=== PATIENT | male | born 1980 | race Caucasian/White ===

== ENCOUNTER → 2022-09-10 11:49 | Outpatient (CLI) | payer BC, SELFPAY ==
--- NOTE | ~2022-09-10 | XR_ITS ---
EXAMINATION: XR ankle RT min 3V, XR foot RT 2V DATE: 09/10/2022 13:45 INDICATION: Gout TECHNIQUE: 1. Anteroposterior, mortise, additional oblique and lateral view of the right ankle were obtained. 2. Dorsoplantar, two oblique and lateral views of the right foot were obtained. COMPARISON: None. FINDINGS: Alignment of the right foot and ankle is normal. No fracture or osteochondral lesion. Mild polyarticu lar osteoarthritis at the first metatarsophalangeal and a few tarsometatarsal and interphalangeal magdy nts. No erosions identified. Small plantar calcaneal spur. No ankle joint effusion. The soft tissues are unremarkable. IMPRESSION: 1. Mild polyarticular osteoarthritis in the mid and forefoot. No erosions. Reviewed, dictated and finalized at location B. IMPRESSION: 1. Mild polyarticular osteoarthritis in the mid and forefoot. No erosions.
== END ==
PROVIDERS: PCP Nurse Practitioner; Visit Provider Nurse Practitioner
DX: M10.9 Gout, unspecified (principal); M25.473 Effusion, unspecified ankle; M19.071 Primary osteoarthritis, right ankle and foot
CPT/HCPCS: 73610; 73620

== ENCOUNTER 2023-05-13 13:23 | Emergency (ER) | payer BC, SELFPAY ==
[2023-05-13 14:00] VITALS: BP 131/81; PULSE 93; RESP 18; TEMP 36.3; O2SAT 97
--- NOTE | 2023-05-13 14:06 | ED.FEVER ---
HPI - Fever General Chief Complaint: Fever Stated Complaint: fever Time Seen by Provider: 05/13/23 13:56 Source: patient and RN notes reviewed Mode of arrival: ambulatory Limitations: no limitations History of Present Illness HPI Narrative: Patient presents today complaining of fever up to 101.2, body aches, chills, and fatigue since last night. Denies any additional symptoms. He has been taking ibuprofen, which has helped bring down the fever. Patient wanted to come in for evaluation today because his 4-year-old son is in the hospital with leukemia and he wanted to get checked out before he returned to the hospital. Related Data Home Medications Medication Instructions Recorded Confirmed folic acid 1 mg tablet 1 mg PO DAILY 06/08/21 05/13/23 ergocalciferol (vitamin D2) 1,250 1,250 mcg PO MONTHLY 09/10/22 05/13/23 mcg (50,000 unit) capsule hyoscyamine sulfate 0.125 mg 0.125 mg PO DAILY 05/13/23 05/13/23 sublingual tablet vedolizumab 300 mg intravenous See Rx Instructions .Route .COMPLEX 05/13/23 05/13/23 solution (Entyvio) Allergies Allergy/AdvReac Type Severity Reaction Status Date / Time mercaptopurine Allergy Swelling Verified 05/13/23 13:48 Review of Systems Review of Systems: GENERAL: Denies decreased activity.+ fever, chills, fatigue, body aches EYES: Denies any eye discharge or redness. ENT: Denies sore throat, ear pain, congestion, or rhinorrhea. RESP: Denies any cough, wheezing, or difficulty breathing. CARDIOVASCULAR: Denies any rapid heart rate or cool extremities. ABDOMINAL: Denies any constipation, vomiting, diarrhea, or decreased food intake. : Denies any hematuria, foul smelling urine, or decreased urine frequency. SKIN: Denies any lesions, rashes, bruises. MUSCULOSKELETAL: Denies any pain or swelling. NEURO: Denies any lethargy, irritability, or seizures. PSYCH: Denies abnormal interaction with family and friends. 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 Please see nursing chart for further information. There is no relevant family history pertinent to the presenting complaint Exam Narrative: GENERAL: Well-appearing, well-nourished, and in no acute distress. HEAD: Normocephalic, atraumatic. EYES: EOMI. No redness or drainage. Conjunctivae normal. ENT: Mucous membranes pink and moist. Nares clear. No rhinorrhea. TMs normal bilaterally. Throat normal with small amount of white postnasal drainage. Uvula midline. NECK: Normal AROM. Supple. No lymphadenopathy. CHEST: No respiratory distress. Clear to auscultation. HEART: Regular rate and rhythm. No murmur appreciated. Normal peripheral pulses. EXTREMITIES: Normal range of motion. No edema. SKIN: Warm, dry, no rash. Capillary refill normal. Normal skin turgor. NEURO: No focal deficits. Alert and oriented x3. Gait steady. PSYCH: Normal affect. No signs of depression or anxiety. Course Course Level of Care: Express Care Visit Vital Signs Vital signs: Vital Signs Temperature 97.3 F L 05/13/23 14:00 Pulse Rate 93 05/13/23 14:00 Respiratory Rate 18 05/13/23 14:00 Blood Pressure 131/81 05/13/23 14:00 Pulse Oximetry 97 05/13/23 14:00 Oxygen Delivery Room Air
== END 2023-05-13 14:31 | disposition home or self-care (01) ==
PROVIDERS: Emergency Provider Nurse Practitioner; PCP Nurse Practitioner
DX: J02.0 Streptococcal pharyngitis (principal); Z20.822 Contact with and (suspected) exposure to COVID-19; K50.90 Crohn's disease, unspecified, without complications
CPT/HCPCS: 87426; 87804; 87880; 99213; C9803; G0463

== ENCOUNTER 2024-11-04 15:56 | Emergency (ER) | payer BC, SELFPAY ==
[2024-11-04 16:24] VITALS: BP 169/109; BP 172/102; PULSE 81; RESP 16; TEMP 37.1; O2SAT 98
--- NOTE | 2024-11-04 16:55 | ED.EAR ---
HPI - Ear Problem General Chief complaint: Ear Stated complaint: Head Cold/ Ear Pain Source: patient Mode of arrival: ambulatory Limitations: no limitations History of Present Illness HPI Narrative: 43-year-old male presented for complaint of left ear pain worsening throughout the day. Also reports 1 week of nasal congestion and drainage. Denies tinnitus, dizziness, ear drainage, nausea, vomiting, diarrhea or lethargy. Since onset he has taken an occasional Sudafed, and took a left over vicodin. MD Complaint: ear pain Related Data Home Medications ?Medication ?Instructions ?Recorded ?Confirmed ?Last Taken ?Type ergocalciferol (vitamin D2) 1,250 1,250 mcg PO MONTHLY 09/10/22 08/29/24 Unknown History mcg (50,000 unit) capsule hyoscyamine sulfate 0.125 mg 0.125 mg PO DAILY 05/13/23 08/29/24 Unknown History sublingual tablet vedolizumab 300 mg intravenous See Rx Instructions .Route .COMPLEX 05/13/23 08/29/24 Unknown History solution (Entyvio) doxycycline hyclate 20 mg tablet 20 mg PO Q12H PRN 08/29/24 08/29/24 Unknown History upadacitinib 30 mg tablet,extended 30 mg PO DAILY 08/29/24 08/29/24 Unknown History release 24 hr (Rinvoq) Allergies Allergy/AdvReac Type Severity Reaction Status Date / Time mercaptopurine Allergy Intermediate Swelling Verified 11/04/24 16:29 Review of Systems Review of Systems: CONSTITUTIONAL: Denies malaise, chills, or fever. EYES: Denies visual changes, redness, or discharge. ENT: Denies sore throat. Reports ear pain rhinorrhea, congestion, sinus pain CARDIOVASCULAR: Denies chest pain, palpitations, or edema. RESPIRATORY: Denies cough or dyspnea. GASTROINTESTINAL: Denies abdominal pain, nausea, vomiting, diarrhea NEUROLOGIC: Denies headache. 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 There is no relevant family history pertinent to the presenting complaint Exam Narrative: GENERAL: Appears in pain, in no acute distress. EYES: PERRLA, conjunctivae clear ENT: Nares clear. Mucous membranes moist. Right TM pearly huber with dull light reflex; left TM erythematous, bulging and intact with purulent effusion; canal not erythematous, no drainage no tragal tenderness. no drooling, no hoarseness, no trismus, uvula midline. CHEST: Clear to auscultation, breath sounds equal. HEART: Regular rate and rhythm. No murmur heard. SKIN: Warm, dry, no rash. NEURO: Alert and oriented x3. PSYCH: Normal mood and affect Course Course Emergency Course: Patient is aware of diagnosis, understands and agrees to treatment plan. Anticipatory guidance given. Patient agrees to follow-up as directed and is aware of reasons to seek care at the emergency department. Portions of this record may have been created with voice recognition software Level of Care: Express Care Visit Vital Signs Vital signs: Vital Signs Temperature 98.8 F 11/04/24 16:24 Pulse Rate 81 11/04/24 16:24 Respiratory Rate 16 11/04/24 16:24 Blood Pressure 172/102 H 11/04/24 16:24 Pulse Oximetry 98 11/04/24 16:24 Temperature 98.8 F 11/04/24 16:24 Pulse Rate 81 11/04/24 16:24 Respiratory Rate 16 11/04/24 16:24 Blood Pressure 169/109 H 11/04/24 16:24 Pulse Oximetry 98 11/04/24 16:24 Reviewed Medical Decision Making MDM Narrative Medical decision making narrative: Discussed physical exam findings consistent with left AOM. Advised supportive measures and signs/symptoms to go to the ER. Patient is appropriate for outpatient treatment and follow-up. Differential Diagnosis Differential Diagnosis: Coronavirus, strep pharyngitis, allergic rhinitis, upper respiratory tract infection, sinusitis, rhinosinusitis, nasopharyngitis, viral pharyngitis, otitis media, otitis externa, eustachian tube dysfunction, foreign body, cerumen impaction. Vital Signs Vital Signs: Vital Signs Temperature 98.8 F 11/04/24 16:24 Pulse Rate 81 11/04/24 16:24 Respiratory Rate 16 11/04/24 16:24 Blood Pressure 172/102 H 11/04/24 16:24 Pulse Oximetry 98 11/04/24 16:24 Temperature 98.8 F 11/04/24 16:24 Pulse Rate 81 11/04/24 16:24 Respiratory Rate 16 11/04/24 16:24 Blood Pressure 169/109 H 11/04/24 16:24 Pulse Oximetry 98 11/04/24 16:24 Discharge Plan Discharge Clinical Impression: Otitis media Patient Disposition: Home, Self-Care Condition: Stable Instructions: Antibiotic Form, Ear Infection (ED) Additional Instructions: Your blood pressure reading was elevated (above 120/80) please follow-up with your primary care provider for further evaluation and management. If you develop worsening Blood Pressure symptoms, (headache, vision changes, dizziness, vomiting, chest pain, etc) go to the ER. Call 911. Your Take antibiotics as directed. Recommenations: antihistamine such as Benadryl, Zyrtec or Maggy for sinus congestion (avoid decongestants that may raise blood pressure) Flonase nasal spray, 1 spray in each nostril once daily until symptoms improve Symptomatic treatment includes: rest, fluids, and increase humidity of the air at home. Tylenol 1000mg every 8 hours as needed to reduce fever, pain Please schedule a follow-up visit with your personal physician If your symptoms persist, change or worsen significantly, go to the emergency department for further evaluation. Patient Language: Indian Prescriptions: New ibuprofen 800 mg tablet 800 mg PO TID PRN (Reason: pain) Qty: 15 0RF amoxicillin-pot clavulanate 875-125 mg tablet 1 tablet PO Q12H 7 Days Qty: 14 0RF No Action hyoscyamine sulfate 0.125 mg tablet, sublingual 0.125 mg PO DAILY Entyvio 300 mg Recon Soln See Rx Instructions .ROUTE .COMPLEX Rx Instructions: 300 mg intravenously Rinvoq 30 mg tablet extended release 24 hr 30 mg PO DAILY doxycycline hyclate 20 mg tablet 20 mg PO Q12H PRN alprazolam [Xanax] 0.5 mg tablet 0.5 mg PO DAILY PRN (Reason: anxiety) Qty: 30 2RF sertraline 25 mg tablet 25 mg PO DAILY Qty: 90 0RF ergocalciferol (vitamin D2) 1,250 mcg (50,000 unit) capsule 1,250 mcg PO MONTHLY Wegovy 1 mg/0.5 mL pen injector 1 mg subcut Q7D Qty: 2 0RF Follow-up/Referrals: Emmanuel Wesley DO [Primary Care Provider] - Time of Disposition: 17:01
--- OUTSIDE RECORDS SUMMARY | 2024-11-11 19:09 | XMS_ITS | Encounter Summary ---
Author Organization [facility] Healthcare Address [address] [place] [address] Care Team Providers Care Physician Office Clin Asst Name Role Phone Emmanuel Wesley DO Primary Care Provider [phone] Reason for Visit * Auth/Cert (Routine) Specialty Diagnoses / Procedures Referred By Med bazan Referred To Contact Diagnoses Crohn's disease of both small and large intestine with intestinal obstruction (HCC) Crohn's disease of both small and large intestine with intestinal obstruction (HCC) [K50.812] Procedures SD COLONOSCOPY FLX DX W/COLLJ SPEC WHEN PFRMD SD COLONOSCOPY W/BIOPSY SINGLE/MULTIPLE SD COLSC FLX W/RMVL OF TUMOR POLYP LESION SNARE TQ COLONOSCOPY Referral ID Status Reason Start Date Expiration Date Visits Re quested Visits Authorized [id number] 1 1 Encounter Details Date Type Department Care Team (Late st Contact Info) Description 10/23/2024 8:34 AM ROOF TECHNICIAN Anesthesia Event [facility] Endoscopy [id number] [place] [address] Jonathan Ramires MD [address] [facility] [address] [place] [address] Anesthesia Record Procedure Summary Procedure Name Responsible Anesthesiologist Anesthesia Start Time Anesthesia Stop Time COLON STOMA WITH BALLOON DILATION Jonathan Ramires MD 10/23/24 0834 10/23/24 0914 Events Date Time Event Comment 10/23/2024 0825 0834 In Room 0834 AN Equip Check 0834 An Start 0834 An Start Data 0837 Start Supplemental O2 0839 An Induction The patient was reevaluated immediately before moderate or deep sedation use and before anesthesia induction. 0839 Anesthesia Ready 0843 Proc Start 0906 Proc Fin 0908 an stop data 0909 Out of Room 0914 Handoff to RN I completed my handoff to the receiving nurse during which we: 1. Patient identified 2. Responsible provider identified 3. Pertinent medical history reviewed 4. Procedure type and surgical course discussed 5. Intraoperative anesthetic management and any significant issues discussed 6. Expectations and concerns for postop period discussed 7. Questions solicited from receiving nurse 8. Patient disposition at the time of handoff: PACU 913 An Stop Meds Name Total propofol 565.49 mg Lidocaine IV 2 % 5 mL sodium chloride 0.9% infusion 700 mL * Agents Name O2% N2O O2 N2O Air * Blood No blood administrations on file. Lines, Drains, and Airways Type Details Placement Removal Peripheral IV Placement Date: 09/08 12/31; Catheter Size: 22 G; Orientation: Right; Location: Antecubital; Insertion Attempts: 1; Patient Tolerance: Tolerated well 09/28/24 0000 by Jaida Clemente RT Peripheral IV Placement Date: 10/07 05/30; Placement Time: 829; Orientation: Anterior, Right; Location: Hand; Removal Date: 10/23/24; Removal Time: 92210/23/24 0830 by Julieta Clifford RN 10/23/24 0923 by Dawna Chacon RN documented in this encounter Social History Tobacco Use Types Packs/Day Years Used Date Smoking Tobacco: Former Cigarettes Q uit: 2004 Smokeless Tobacco: Never Alcohol Use Standard Drinks/Week Comments Yes 0 (1 standard drink = 0.6 oz pur e alcohol) occasional OASIS D0700: Social Isolation Answer Da te Recorded Frequency of experiencing loneliness or isolatio n Never 05/16/2024 AUDIT-C Answer Date Recorded Q1: How often do you have a drink containing alc ohol? 2-3 times a week 10/23/2024 Q2: How many drinks containi ng alcohol do you have on a typical day when you are drinking? 3 or 4 10/23/2024 Q3: How often do you have si x or more drinks on one occasion? Less than monthly 10/23/2024 Personal Safety Answer Date Recorded Have you ever been in or are you currently in a harmful physical or emotional relationship or is someone making you feel afraid or unsafe? 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 ENDOSCOPY ROOM 04 / [facility] ENDOSCOPY Anesthesia Start: 833 Anesthesia Stop: 913 Procedures: COLON STOMA WITH BALLOON DILATION OSTOMY BIOPSY Diagnosis: Crohn's disease of both small and large intestine with intestinal obstruction (HCC) (Crohn's disease of both small and large intestine with intestinal obstruction (HCC) [K50.812]) Providers: Tahir Cardoso MD Responsible Provider: Jonathan Ramires MD Anesthesia Type: general ASA Status: 2 Anesthesia Type: general Last vitals BP 126/69 Pulse 61 Temp 36.2 ??C (97.2 ??F) (Temporal) Resp 16 SpO2 97% Anesthesia Post Evaluation Patient location during evaluation: PACU Patient participation: complete - patient participated Level of consciousness: fully awake Pain score: 0 Pain management: adequate Airway patency: adequate Evidence of recall: no Cardiovascular status: hemodynamically stable and acceptable Respiratory status: acceptable and room air Hydration status: acceptable Pt is: normothermic Nausea/Vomiting status: none No notable events documented. TECHNICIAN * Anesthesia Preprocedure Evaluation - Jonathan Ramires MD - 10/23/2024 8:26 AM CST Images from the original note were not included. Anesthesia Evaluation Ranjit Peralta is a 43 y.o. male COLONOSCOPY Pre-Op Diagnosis Codes: * Crohn's disease of both small and large intestine with intestinal obstruction (HCC) [K50.812] Patient Active Problem List Diagnosis Date Noted Colostomy present (CMS/HCC) (HCC) 08/14/2024 Abdominal cramping 08/14/2024 Healthcare maintenance 12/27/2023 Encounter for examination of potential donor of organ and tissue 05/09/2023 High risk medications (not anticoagulants) long-term use 10/10/2018 Stricture intestinal (CMS/HCC) (HCC) 10/10/2018 Need for 23-polyvalent pneumococcal polysaccharide vaccine 10/10/2018 Crohn's disease with complication ([facility]) 05/19/2018 Crohn's disease of both small and large intestine ([facility]) 04/06/2013 Past Medical History: Diagnosis Date Anxiety Crohn's disease (CMS/HCC) ([facility]) dx 2006 Past Surgical History: Procedure Laterality Date ABCESS DRAINAGE 04/06/201301/17 ANAL FISTULOTOMY 08/22/2013 BOWEL RESECTION 2022 ileocolic with diverting colostomy COLONOSCOPY Allergies Allergen Reactions Mercaptopurine Analogues (Thiopurines) Joint pain Severe gout like joint pain that starts within days of taking medicine Med List Status: Provider Complete Set By: Julieta Clifford RN at 10/23/2024 8:16 AM Taking? Last Dose Start Date End Date Provider ALPRAZolam (XANAX) 0.5 mg tablet 10/22/2024 08/29/24 -- Melissa Gallardo MD dicyclomine (BENTYL) 20 mg tablet Past Month 06/14/23 -- Paulina Jones MD Take 1 tablet (20 mg total) by mouth 4 (four) times a day as needed (cramping) ergocalciferol (VITAMIN D) 50,000 unit capsule Past Month 01/06/24 -- Parker De La Cruz MD Take 1 capsule (50,000 Units total) by mouth every 30 (thirty) days hyoscyamine (LEVSIN) 0.125 mg SL tablet Past Week 08/13/24 08/13/25 Parker De La Cruz MD Take 1 tablet (0.125 mg total) by mouth every 6 (six) hours as needed for cramping or diarrhea Dissolve tab under the tongue sertraline (ZOLOFT) 25 mg tablet More than a month 08/29/24 -- Melissa Gallardo MD sodium chloride 0.9 %, flush, (SALINE FLUSH INJ) Unknown -- -- Melissa Gallardo MD sodium, potassium & mag sulfates (SUPREP BOWEL KIT) 17.5-3.13-1.6 gram recon soln 10/23/2024 10/22/24 -- Tahir Cardoso MD Take first bottle at 6 PM, take the second bottle 6 hours prior to arrival upadacitinib (Rinvoq) 30 mg tablet extended release 24 hr 10/22/2024 10/16/24 -- Parker De La Cruz MD Take 30 mg by mouth daily Notes: Pt has been approved for bridge assistance per Rinvoq Complete. Please arrange next drug shipment. Thanks! vedolizumab (ENTYVIO) 300 mg recon soln Past Month 10/03/24 -- Parker De La Cruz MD Infuse 5 mL (300 mg total) into a venous catheter every 4 (four) weeks Infused by: [facility] Home Care ([facility] order in Epic under 'Procedures' tab). vitamin E 400 unit capsule Past Week -- -- ProviderMelissa MD Wegovraymond 0.5 mg/0.5 mL auto-injector Past Week 09/17/24 -- ProviderMelissa MD Ongoing Comment Franklin Cruz RN 07/26/2024 1:37 PM 07/26/2024 Severe interaction noted between Entyvio and Rinvoq. Per email message from Christina Reid RN for Dr. Jono MD aware. Patient may continue both medications as directed. ERIC FLORES Current Facility-Administered Medications: famotidine (PEPCID) injection 20 mg, 20 mg, intravenous, Once ondansetron (ZOFRAN) injection 4 mg, 4 mg, intravenous, Q6H PRN ondansetron (ZOFRAN) injection 4 mg, 4 mg, intravenous, Once sodium chloride 0.9% flush 0.5-20 mL, 0.5-20 mL, intra-catheter, PRN sodium chloride 0.9% infusion, 30 mL/hr, intravenous, Continuous Social History Tobacco Use Smoking Status Former Current packs/day: 0.00 Types: Cigarettes Quit date: 2004 Years since quittin.9 Smokeless Tobacco Never Alcohol Use: Alcohol Misuse (10/23/2024) AUDIT-C Frequency of Alcohol Consumption: 2-3 times a week Average Number of Drinks: 3 or 4 Frequency of Binge Drinking: Less than monthly Substance and Sexual Activity Drug Use No Family History Problem Relation Age of Onset Cancer Maternal Grandmother Diabetes Maternal Grandfather Family history of diabetes mellitus - (Added by TW Conv)/Family history of diabetes mellitus - (Added by TW Conv) Colon cancer Neg Hx Crohn's disease Neg Hx Ulcerative colitis Neg Hx Vitals: 10/23/24 0758 10/23/24 0820 BP: 142/96 Pulse: 65 Resp: 28 Temp: 36.2 ??C (97.2 ??F) SpO2: 95% PT: No results found for requested labs within last 30 days. INR: No results found for requested labs within last 30 days. APTT: No results found for requested labs within last 30 days. Hgb A1C: No results found for requested labs within last 30 days. CBC RBC: 09/24/2024: 4.17 M/cumm (L) RDW: No results found for requested labs within last 30 days. MCHC: 09/24/2024: 34.3 g/dL MCH: 09/24/2024: 32.4 pg MCV: 09/24/2024: 94.5 fL Hct: 09/24/2024: 39.4 % Hgb: 09/24/2024: 13.5 g/dL WBC: 09/24/2024: 5.0 K/cumm MPV: 09/24/2024: 10.0 fL Platelets: 09/24/2024: 244 K/cumm RDW CV: 09/24/2024: 13.2 % RDW Sd: 09/24/2024: 46.0 fL BMP Glucose: 09/24/2024: 91 mg/dL Calcium: 09/24/2024: 9.5 mg/dL Sodium: 09/24/2024: 139 mmol/L Potassium: 09/24/2024: 3.8 mmol/L CO2: 09/24/2024: 20 mmol/L (L) Chloride: 09/24/2024: 105 mmol/L BUN: 09/24/2024: 13 mg/dL Creatinine: 09/24/2024: 1.11 mg/dL DOS Physical Exam Medical history, medications, and allergies reviewed. Attestation: This PAT evaluation Airway Exam: Mallampati: III Cervical ROM: FROM Cardiovascular Exam: Rate: regular Rhythm: regular Pulmonary Exam: LCTA, bilat Anesthesia Plan ASA 2 My patient is approved for the Anesthesia Controlled Medication protocol when under care of a GOVERNMENT AFFAIRS MANAGER Planned anesthesia: General Informed Consent: Anesthesia plan and risks discussed with patient. Plan and Consent Comments: Hx awareness Consent and Attending signature: I and/or my designee have discussed the anesthesia plan, benefits, possible alternatives, parental presence at time of induction (if indicated), and clinically relevant risks that may include dental injury, unintentional awareness, and/or other complications. The patient and/or parent/legal guardian understand, and agree to proceed. All questions answered. TECHNICIAN documented in this encounter Plan of Treatment Upcoming Encounters Date Type Department Care Team (Late st Contact Info) Description 11/09/2024 Plan of Care Documentation [address] [address] [address] [place] [address] documented as of this encounter Visit Diagnoses Not on filedocumented in this encounter Administered Medications Inactive Administered Medications - up to 3 most recent administrations Medication Order MAR Action Action Date Dose Rate Site lidocaine (XYLOCAINE) 20 mg/mL (2 %) injection intravenous, As needed, Starting on Tue10/23/24 at 0839, Anesthesia Intra-op, Indications: Administration of Local AnesthesiaIndications:Adm inistration of Local Anesthesia Given 10/23/2024 8:39 AM ROOF TECHNICIAN 5 mL propofoL (DIPRIVAN) 10 mg/mL IV intravenous, As needed, Starting on Tue10/23/24 at 0839, Anesthesia Intra-op New Bag 10/23/2024 8:45 AM ROOF TECHNICIAN 155 mcg/kg/min 109.647 mL/hr Given 10/23/2024 8:44 AM ROOF TECHNICIAN 50 mg Given 10/23/2024 8:41 AM ROOF TECHNICIAN 50 mg sodium chloride 0.9% infusion 30 mL/hr, intravenous, Continuous, Starting on Tue10/23/24 at 0845, Pre-Procedure (GI) Restarted 10/23/2024 8:49 AM ROOF TECHNICIAN Rate/Dose Verify 10/23/2024 8:34 AM ROOF TECHNICIAN 30 mL/h r New Bag 10/23/2024 8:31 AM ROOF TECHNICIAN 30 mL/hr 30 mL/hr documented in this encounter Care Teams Physician Office Clin Asst Relationship Specialty Start Date End Date Emmanuel Wesley DO PCP - General Internal Medicine 12/11/21 documented as of this encounter
--- OUTSIDE RECORDS SUMMARY | 2024-11-11 19:09 | XMS_ITS | Encounter Summary ---
Author Organization [facility] Address [address] [place] [address] Care Team Providers Care Fire Claims Adjuster Name Role Phone Emmanuel Wesley DO Primary Care Provider [phone] Reason for Visit * Auth/Cert (Routine) Specialty Diagnoses / Procedures Referred By Med bazan Referred To Contact Diagnoses Crohn's disease of both small and large intestine with intestinal obstruction (HCC) Crohn's disease of both small and large intestine with intestinal obstruction (HCC) [K50.812] Procedures NC COLONOSCOPY FLX DX W/COLLJ SPEC WHEN PFRMD NC COLONOSCOPY W/BIOPSY SINGLE/MULTIPLE NC COLSC FLX W/RMVL OF TUMOR POLYP LESION SNARE TQ COLONOSCOPY Referral ID Status Reason Start Date Expiration Date Visits Re quested Visits Authorized [id number] 1 1 Encounter Details Date Type Department Care Team (Latest Contact Info) Description 10/23/2024 7:51 AM RECREATION CLERK - 10/23/2024 10:18 AM [facility] [[email or web address] Hospital Encounter [facility] Endoscopy [id number] [place] [address] Tahir Cardoso MD [address] [place] [address] Crohn's disease of both small and large intestine with intestinal obstruction (HCC) Discharge Disposition: Discharge to home or self care Social History Tobacco Use Types Packs/Day Years Used Date Smoking Tobacco: Former Cigarettes Q uit: 2005 Smokeless Tobacco: Never Alcohol Use Standard Drinks/Week [...] on file 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:34 AM RECREATION CLERK Gender Identity Not on file Sexual Orientation Not on file documented as of this encounter Last Filed Vital Signs Vital Sign Reading Time Taken Comments Blood Pressure 126/69 10/23/2024 9:25 AM RECREATION CLERK Pulse 61 10/23/2024 9:28 AM RECREATION CLERK Temperature 36.2 ??C (97.2 ??F) 10/23/2024 9:10 AM CS T Respiratory Rate 16 10/23/2024 9:28 AM RECREATION CLERK Oxygen Saturation 97% 10/23/2024 9:28 AM RECREATION CLERK Inhaled Oxygen Concentration - - Weight - - Height - - Body Mass Index - - documented in this encounter Discharge Instructions * Discharge Instructions* Dawna Chacon RN - 10/23/2024 9:28 AM RECREATION CLERK SCOPE DISCHARGE INSTRUCTIONS You have had a Colonoscopy (Colon) procedure. Sedation: You were given medication for sedation. You may feel drowsy or tired for a few hours. We recommend you not be alone today. Please do not participate in activities that require good coordination or concentration such as driving a car or operating machinery for the next 24 hours. Protect yourself against falls, especially on the stairs or when walking long distances. Delay making businessdecisions that require the signing of legal documents for a minimum of 24 hours. No alcoholic beverages for 24 hours. Diet: Type of diet ordered {GI diet instructions:14530799}. IV: If the IV site swells or bleeds, please apply direct pressure for 5 minutes. If the site becomes red, you may apply warm, moist compresses to the site. Please see a healthcare professional if youhave concerns about your IV site. Abdomen: Following the procedure called colonoscopy, you may be aware of a bloated appearance andfeeling of your abdomen. You may also experience some cramping or gas pains . The distention and discomfort should subside as you pass the air. If you are unable to pass the air, please contact your physician. Pain/Bleeding: You have had {POST BIOPSY/DILITATION:06865827} performed during the procedure. You may expect a little bleeding from the site. Within the next 48 hours, if the bleeding becomes excessive or is accompanied by abdominal or chest pain, please call your physician immediately. If you are on aspirin or NSAIDS (non-steroidal anti-inflammatory drugs) then you can resume in {Endo ASA/NSAIDS:21538345}. If no follow-up appointment is required, you may receive a letter or phone call from the physician regarding your test/biopsy results within the next two weeks. A note will also be sent to your referring physician. If you have any questions, call your physician's office. EATION CLERK documented in this encounter Medications at Time of Discharge ALPRAZolam (XANAX) 0.5 mg tablet Take 1 tablet (0.5 mg total) by mouth daily as needed 08/29/2024 dicyclomine (BENTYL) 20 mg tablet Take 1 tablet (20 mg total) by mouth 4 (four) times a day as needed (cramping) 120 tablet 3 06/14/2023 ergocalciferol (VITAMIN D) 50,000 unit capsuleIndications :Low vitamin D level Take 1 capsule (50,000 Units total) by mouth every 30 (thirty) days 3 capsule 3 01/06/2024 hyoscyamine (LEVSIN) 0.125 mg SL tablet Take 1 tablet (0.125 mg total) by mouth every 6 (six) hours as needed for cramping or diarrhea Dissolve tab under the tongue 100 tablet 5 08/13/2024 sertraline (ZOLOFT) 25 mg tablet Take 1 tablet (25 mg total) by mouth daily 08/29/2024 sodium chloride 0.9 %, flush, (SALINE FLUSH INJ)Indications:li ne patency Infuse 10 mL into a venous catheter as needed (line patency) sodium, potassium & mag sulfates (SUPREP BOWEL KIT) 17.5-3.13-1.6 gram recon soln Take first bottle at 6 PM, take the second bottle 6 hours prior to arrival 354 mL 10/22/2024 upadacitinib (Rinvoq) 30 mg tablet extended release 24 hrIndications:Croh n's disease of small and large intestines with complication (HCC) Take 30 mg by mouth daily 90 tablet 10/16/2024 vedolizumab (ENTYVIO) 300 mg recon solnIndications:Cr ohn's disease of both small and large intestine without complication (CMS/HCC) (HCC) Infuse 5 mL (300 mg total) into a venous catheter every 4 (four) weeks Infused by: [facility] Home Care ([facility] order in [facility] under 'Procedures' tab). 10/03/2024 vitamin E 400 unit capsule Take 1 capsule (400 Units total) by mouth Wegovy 0.5 mg/0.5 mL auto-injector 09/17/2024 documented as of this encounter Discharge Disposition Disposition Code Departure Means Destination Comment s Discharge to home or self care documented in this encounter H&P Notes * Tahir Cardoso MD - 10/23/2024 8:05 AM CST Pre Endoscopy History and Physical Dante Peralta is a 43 y.o. male who is here for Procedure(s): COLONOSCOPY The indication(s) for the procedure(s): Dilation of ileal strictures. History of lap ICR and diverting colostomy in Dec 2022 with fibrostenotic Crohn's disease, status post prior colonoscopy with dilation. He now returns for another examination to assess response to medical therapy. Past Medical History: Diagnosis Date Anxiety Crohn's disease (CMS/HCC) (HCC) dx 2006 Past Surgical History: Procedure Laterality Date ABCESS DRAINAGE 04/06/201301/17 ANAL FISTULOTOMY 08/22/2013 BOWEL RESECTION 2022 ileocolic with diverting colostomy COLONOSCOPY Social History Tobacco Use Smoking status: Former Current packs/day: 0.00 Types: Cigarettes Quit date: 2004 Years since quittin.9 Smokeless tobacco: Never Substance and Sexual Activity Drug use: No Sexual activity: Defer Alcohol Use: Alcohol Misuse (10/19/2024) AUDIT-C Frequency of Alcohol Consumption: 2-3 times a week Average Number of Drinks: 3 or 4 Frequency of Binge Drinking: Less than monthly Family History Problem Relation Age of Onset Cancer Maternal Grandmother Diabetes Maternal Grandfather Family history of diabetes mellitus - (Added by TW Conv)/Family history of diabetes mellitus - (Added by TW Conv) Colon cancer Neg Hx Crohn's disease Neg Hx Ulcerative colitis Neg Hx Allergies Allergen Reactions Mercaptopurine Analogues (Thiopurines) Joint pain Severe gout like joint pain that starts within days of taking medicine Prior to Admission medications Medication Sig Start Date End Date Taking? Authorizing Provider ALPRAZolam (XANAX) 0.5 mg tablet Take 1 tablet (0.5 mg total) by mouth daily as needed 08/29/24 YesMelissa Gallardo MD sertraline (ZOLOFT) 25 mg tablet Take 1 tablet (25 mg total) by mouth daily 08/29/24 Yes Melissa Gallardo MD Wegovy 0.5 mg/0.5 mL auto-injector 09/17/24 Yes Melissa Gallardo MD dicyclomine (BENTYL) 20 mg tablet Take 1 tablet (20 mg total) by mouth 4 (four) times a day as needed (cramping) 06/14/23 Paulina Jones MD ergocalciferol (VITAMIN D) 50,000 unit capsule Take 1 capsule (50,000 Units total) by mouth every 30 (thirty) days 01/06/24 Parker De La Cruz MD hyoscyamine (LEVSIN) 0.125 mg SL tablet Take 1 tablet (0.125 mg total) by mouth every 6 (six) hoursas needed for cramping or diarrhea Dissolve tab under the tongue 08/13/24 08/13/25 Parker De La Cruz MD sodium chloride 0.9 %, flush, (SALINE FLUSH INJ) Infuse 10 mL into a venous catheter as needed (line patency) Melissa Gallardo MD sodium, potassium & mag sulfates (SUPREP BOWEL KIT) 17.5-3.13-1.6 gram recon soln Take first bottle at 6 PM, take the second bottle 6 hours prior to arrival 10/22/24 Tahir Cardoso MD upadacitinib (Rinvoq) 30 mg tablet extended release 24 hr Take 30 mg by mouth daily 10/16/24 Parker De La Cruz MD vedolizumab (ENTYVIO) 300 mg recon soln Infuse 5 mL (300 mg total) into a venous catheter every 4 (four) weeks Infused by: [facility] Home Care ([facility] order in [facility] under 'Procedures' tab). 10/03/24 Parker De La Cruz MD vitamin E 400 unit capsule Take 1 capsule (400 Units total) by mouth ProviderMelissa MD mesalamine (CANASA) 1,000 mg suppository UNWRAP AND INSERT ONE SUPPOSITORY RECTALLY EVERY NIGHT AT BEDTIME DIRECTED 09/21/22 03/03/23 Provider, MD Melissa Review of Systems A pertinent, focused review of systems was completed and negative, except as noted above. OBJECTIVE: Vitals: Vitals: 10/23/24 0758 Temp: 36.2 ??C (97.2 ??F) TempSrc: Tympanic Physical Exam: Airway: No significant abnormality. Cardiac: No significant abnormality. Pulmonary: No significant abnormality. Neurological: No significant abnormality. Gastrointestinal: No significant abnormality. ASA Score: per Anesthesia Sedation/Anesthesia Plan: per Anesthesia The risks and complications of the procedure have been explained to the patient. Informed consent was signed. Impression and plan: Will proceed with the planned procedure for the reasons stated above. EATION CLERK documented in this encounter Procedure Notes * Tahir Cardoso MD - 10/23/2024 8:29 AM CSTAssociated Order(s): COLONOSCOPY ENDOSCOPY LAB Patient Name: Dante Peralta Procedure Date: 10/23/2024 8:29 AM Date of : 1980 Admit Type: Outpatient Age: 43 Gender: Male Attending MD: Tahir Collins M.D. Room: [facility] ENDOSCOPY ROOM 04 Note Status: Finalized Procedure: Colonoscopy of Post-surgical Anatomy Indications: Balloon dilation of stenotic lesion of the terminal ileum. History of laparoscopic ileocecectomy and diverting colostomy in Dec 2022 with fibrostenotic Crohn's disease, status post prior colonoscopy with dilation. He now returns for another examination to assess response to medical therapy. Providers: Tahir Collins M.D. Referring MD: Parker De La Cruz M.D. Medicines: Monitored Anesthesia Care Complications: No immediate complications. Estimated Blood Loss: Estimated blood loss was minimal. Procedure: Pre-Anesthesia Assessment: - The risks and benefits of the procedure and the sedation options and risks were discussed with the patient. All questions were answered and informed consent was obtained. - Immediately prior to administration of medications, the patient was re-assessed for adequacy to receive sedatives. After obtaining informed consent, the endoscope was passed under direct vision. Throughout the procedure, the patient's blood pressure, pulse, and oxygen saturations were monitored continuously. The scope was passed under direct vision. The [id number] was introduced through the sigmoid colostomy and advanced to the terminal ileum. The colonoscopy was performed without difficulty. The patient tolerated the procedure well. The quality of the bowel preparation was adequate. The bowel preparation used was polyethylene glycol (PEG) via split dose instruction. The quality of the bowel preparation was evaluated using the BBPS ([place] Bowel Preparation Scale) with scores of: Right Colon = 3 (entire mucosa seen well with no residual staining, small fragments of stool or opaque liquid), Transverse Colon = 3 (entire mucosa seen well with no residual staining, small fragments of stool or opaque liquid) and Left Colon = 3 (entire mucosa seen well with no residual staining, small fragments of stool or opaque liquid). The total BBPS score equals 9. Findings: There was evidence of a prior qsil-el-wjyk ileo-colonic anastomosis in the ascending colon. This was patent and was characterized by healthy appearing mucosa. The anastomosis was traversed. The distal ileum contained four benign-appearing, intrinsic and ulcerated moderate stenosis measuring less than one cm (in length) x 1.1 cm (inner diameter). A TTS dilator was passed through the scope. Dilation with a 12-13.5-15 mm anastomotic balloon dilator was performed to 15 mm at all sites. The strictures were traversed with the PCF colonoscope. Biopsies were taken with a cold forceps for histology from the strictures. The remainder of the exam in the terminal ileum was normal consistent with skip areas. This was biopsied for background histology. The colon (entire examined portion) appeared normal. Biopsies were taken with a cold forceps for histology from the right and left colon. Patient is status-post diverting bowel surgery with an end-sigmoid colostomy. The Simple Endoscopic Score for Crohn's Disease was determined based on the endoscopic appearance of the mucosa in the following segments: - Ileum: Findings include aphthous ulcers less than 0.5 cm in size, 10-30% ulcerated surfaces, less than 50% of surfaces affected and multiple narrowings that can be passed. Segment score: 6. - Right Colon: Findings include no ulcers present, no ulcerated surfaces, no affected surfaces and no narrowings. Segment score: 0. - Transverse Colon: Findings include no ulcers present, no ulcerated surfaces, no affected surfaces and no narrowings. Segment score: 0. - Left Colon: Findings include no ulcers present, no ulcerated surfaces, no affected surfaces and no narrowings. Segment score: 0. Segment score: 0. - Total SES-CD aggregate score: 6. Impression: - Re-demonstration of multifocal, fibrostenotic Crohn's ileitis (SES-CD: 6) with improved caliber of strictures. Dilation to 15 mm was successful at all sties on this encounter. - The remaining examination of the ileocolonic anastomosis and colon where normal. Biopsies taken from the strictures, background ileum, and right/ left colon. - Healthy end-colostomy. Recommendation: - Continue current medications and diet. - Await pathology results from tissue sampling. If you do not receive a call from my office after 5 business days following today's procedure, please call my office at [phone] and speak to my nurse. - Follow-up with your referring provider (indicated in the report above) as indicated. - Repeat colonoscopy with dilation pending pathology results and overall clinical and/ or surgical plans. -In the unusual situation that you develop abdominal pain, bleeding or other significant problems in the days following this procedure please call my office [phone]). After hours and evenings please call [phone] and speak to the GI fellow urology surgeon. Please tell the fellow that Dr. Collins did your procedure and that you were instructed to have the fellow call me or the physician covering for me to discuss the management of your condition. If you have an urgent problem, please go to the nearest emergency room and have the ER doctor call my office during the day or the GI fellow after hours and weekends to arrange admission or transfer to our facility. Please bring this report with you if you go to the emergency room. - The outlined recommendations within this report were discussed with you following the procedure. Attending Participation: I personally performed the entire procedure. Electronically signed by Tahir Collins MD Tahir Collins M.D. 10/23/2024 10:03:50 AM Number of Addenda: 0 Note Initiated On: 10/23/2024 8:29 AM EATION CLERK documented in this encounter Miscellaneous Notes * Perioperative Nursing Note - Dawna Chacon RN - 10/23/2024 9:29 AM RECREATION CLERK discussed findings. Discharge instructions given to patient, (and by phone - directed to apple picking supervisor location).Understanding expressed, questions answered.(No signatures due to CoVid19 protocol) Tolerating po fluids. EATION CLERK * Perioperative Nursing Note - Dawna Chacon RN - 10/23/2024 9:28 AM RECREATION CLERK discussed findings. Discharge instructions given to patient, (and by phone - directed to apple picking supervisor location).Understanding expressed, questions answered.(No signatures due to CoVid19 protocol) Tolerating po fluids. EATION CLERK * Pre-Procedure Instructions - Clara Townsend RN - 10/16/2024 3:40 PM RECREATION CLERK You have an appointment for colonoscopy [facility] 10/23/24. Arrival time 7:45 am for 8:45 am procedure Our address is: [address] [place] [address] [place] [address] Collins's office instruction regarding your colonoscopy bowel prep Bring current medication list for review. Leave valuables at home-mayes, credit cards, jewelry Due to the anesthesia you will not be able to drive. Please have a ride arranged to and from hospital with a responsible adult. No form of public transportation by yourself will be allowed:Cab, Uber,Lyft When you arrive come in through hospital main entrance and check in at the information desk For questions or if you cannot make this appointment and wish to reschedule please call Dr Collins'gail [phone] Thank you EATION CLERK documented in this encounter Plan of Treatment Upcoming Encounters Date Type Department Care Team (Late st Contact Info) Description 11/09/2024 Plan of Care Documentation [facility] [place] [address] [address] [place] [address] documented as of this encounter Procedures Procedure Name Priority Date/Time Associated Diagnosis Comments SURGICAL PATHOLOGY Routine 10/23/2024 8: 44 AM RECREATION CLERK Crohn's disease of both small and large intestine with intestinal obstruction (HCC) ENDO ADD ON OSTOMY BIOPSY 10/23/2024 8:34 AM RECREATION CLERK Crohn's disease of both small and large intestine with intestinal obstruction (HCC) COLON STOMA WITH BALLOON DILATION 10/23/2024 8:34 AM RECREATION CLERK Crohn's disease of both small and large intestine with intestinal obstruction (HCC) COLONOSCOPY 10/23/2024 8:29 AM RECREATION CLERK documented in this encounter Results * Surgical pathology (10/23/2024 8:44 AM RECREATION CLERK) Tissue (Ileum, Biopsy) 10/23/2024 8:44 AM RECREATION CLERK Tissue (Ileum, Biopsy) 10/23/2024 9:00 AM RECREATION CLERK Tissue (Colon, Biopsy) 10/23/2024 9:03 AM RECREATION CLERK Tissue (Colon, Biopsy) 10/23/2024 9:04 AM RECREATION CLERK Narrative PATHOLOGY [facility] - 10/24/2024 4:57 PM RECREATION CLERK EPIC results best viewed via link to PDF [facility] [place] [address] Note to Patients: This report may contain a detailed description of human tissue sent by a health care provider to the laboratory for pathologic evaluation. The content of this report is essential for diagnosis and may provide important critical findings. This information may be unfamiliar to patients to review without a medical professional present. It is advised that the patient review this report in the presence of a health care provider who can answer questions and explain the details. SURGICAL PATHOLOGY REPORT FINAL Patient Name: ?? DANTE PERALTA Gender: ??M : ??1980 (Age: 43) Address: ??[address] [place] [address], [place], [place] ??[address] [facility] #: ??[id number] Taken:10/23/2024 Received:10/23/2024 Reported: 10/24/2024 Patient Type: [facility] EP SAME Client ?[facility] Service: Gastro Location: Physician(s): ??MD Emmanuel Liu, DO Parker De La Cruz M.D. Diagnosis: A. ??Small intestine, terminal ileum, biopsy: ? - Small intestinal mucosa with no pathologic abnormality ?? B. ??Small intestine, ileum stricture, biopsy: ? - Small intestinal mucosa with acute inflammation, granulation tissue, and architectural distortion ?? C. ??Large intestine, right colon, biopsy: ? - Colonic mucosa with no pathologic abnormality ?? D. ??Large intestine, left colon, biopsy: ?- Colonic mucosa with no pathologic abnormality tcl/10/24/2024 16:57 By this signature, I attest that the above diagnosis is based upon my personal examination of the slides(and/or other material indicated in the diagnosis). Padmaja Cheng M.D., Ph.D. Report Electronically Reviewed and Signed Out By ??Padmaja Cheng M.D., Ph.D. 10/24/2024 16:57:49 Diagnosis Comment There is no viral cytopathic effect, granuloma, or dysplasia in all parts. History: The patient is a 43-year-old man with Crohn's disease of small and large intestine with intestinal obstruction. ??Operative procedure: ??Colon stoma with balloon dilation and ostomy biopsy. Specimen(s) Received: A: Biopsies terminal ileum B: Biopsies ileum strictures C: Biopsies right colon D: Biopsies left colon Gross Description: Received in four formalin jars labeled with the patient's identifiers. A. ??Labeled biopsies terminal ileum are multiple irregular tissue fragment(s) (measuring 0.9 x 0.3 x 0.1 cm in aggregate. ??Stained with eosin). ?? Labeled A1. Jar 0. B. ??Labeled biopsies ileum strictures are multiple irregular tissue fragment(s) (measuring 0.9 x 0.3 x 0.1 cm in aggregate. ??Stained with eosin). ?? Labeled B1. Jar 0. C. ??Labeled biopsies right colon are multiple irregular tissue fragment(s) (measuring 1.1 x 0.3 x 0.1 cm in aggregate. ??Stained with eosin). ?? Labeled C1. Jar 0. D. ??Labeled biopsies left colon are multiple irregular tissue fragment(s) (measuring 1.1 x 0.3 x 0.1 cm in aggregate. ??Stained with eosin). ?? Labeled D1. Jar 0. ?? cnewho/10/23/2024 10:47 PA(s): KAREEM Walker By this signature, I attest that the above diagnosis is based upon my personal examination of the slides(and/or other material). Addenda/Procedures Microscopic slide review and interpretation for this case was performed at [facility], Department of Surgical Pathology, [address] [facility] [place], [place] [id number], ??[place], [place] ??[address] ?? CLIA # [id number] The performance characteristics of some immunohistochemical stains, fluorescence in-situ hybridization tests and immunophenotyping by flow cytometry cited in this report (if any) were determined by the Surgical Pathology and Flow Cytometry Departments at [facility] as part of an ongoing quality control head program and in compliance with federally mandated regulations drawn from the Clinical Laboratory Improvement Act of 1988 (CLIA '88). ??Some of these tests rely on the use of analyte specific reagents and are subject to specific labeling requirements by the US Food and Drug Administration. ??Such diagnostic tests may only be performed in a facility that is certified by the Department of Health and Human Services as a high complexity laboratory under CLIA '88. ??The FDA has determined that such clearance or approval is not necessary. ??This test is used for clinical purposes. ??It should not be regarded as investigational or for research. ??Nevertheless, federal rules concerning the medical use of analyte specific reagents require that the following disclaimer be attached to the report: This test was developed and its performance characteristics determined by the Surgical Pathology and Flow Cytometry Departments of [facility]. ??It has not been cleared or approved by the U. S. Food and Drug Administration. IMAGES AND SCANNED DOCUMENTS, IF INCLUDED, ONLY VIEWABLE IN PDF VERSION OF REPORT Tahir Collins MD LAB PATHOLOGY ORDERAB LES Final Result PATHOLOGY [facility] [phone] * Colonoscopy (10/23/2024 8:29 AM RECREATION CLERK) Anatomical Region Laterality Modality Other Narrative Procedure Note Tahir Cardoso MD - 10/23/2024 8:29 AM CST ENDOSCOPY LAB Patient Name: Dante Peralta Procedure Date: 10/23/2024 8:29 AM Date of : 1980 Admit Type: Outpatient Age: 43 Gender: Male Attending MD: Tahir Collins M.D. Room: [facility] ENDOSCOPY ROOM 04 Note Status: Finalized Procedure: Colonoscopy of Post-surgical Anatomy Indications: Balloon dilation of stenotic lesion of the terminal ileum. History of laparoscopic ileocecectomy and diverting colostomy in Dec 2022 with fibrostenotic Crohn's disease, status post prior colonoscopy with dilation. He now returns for another examination to assess response to medical therapy. Providers: Tahir Collins M.D. Referring MD: Parker De La Cruz M.D. Medicines: Monitored Anesthesia Care Complications: No immediate complications. Estimated Blood Loss: Estimated blood loss was minimal. Procedure: Pre-Anesthesia Assessment: - The risks and benefits of the procedure and the sedation options and risks were discussed with the patient. All questions were answered and informed consent was obtained. - Immediately prior to administration ofmedications, the patient was re-assessed for adequacy to receive sedatives. After obtaining informed consent, the endoscope was passed under direct vision. Throughout theprocedure, the patient's blood pressure, pulse, and oxygen saturations were monitored continuously. The scopewas passed under direct vision. The [id number] introduced through the sigmoid colostomy andadvanced to the terminal ileum. The colonoscopy wasperformed without difficulty. The patient tolerated the procedure well. The quality of the bowelpreparation was adequate. The bowel preparation used was polyethylene glycol (PEG) via split doseinstruction. The quality of the bowel preparation was evaluated using the BBPS ([place] Bowel Preparation Scale)with scores of: Right Colon = 3 (entire mucosa seen well with no residual staining, small fragments of stoolor opaque liquid), Transverse Colon = 3 (entire mucosa seen well with no residual staining, smallfragments of stool or opaque liquid) and Left Colon = 3(entire mucosa seen well with no residual staining, small fragments of stool or opaque liquid). The totalBBPS score equals 9. Findings: There was evidence of a prior ynyg-ov-gfwl ileo-colonic anastomosisin the ascending colon. This was patent and was characterized by healthy appearing mucosa. The anastomosis was traversed. The distal ileum contained four benign-appearing, intrinsic and ulcerated moderate stenosis measuring less than one cm (in length) x1.1 cm (inner diameter). A TTS dilator was passed through the scope. Dilation with a 12-13.5-15 mm anastomotic balloon dilator wasperformed to 15 mm at all sites. The strictures were traversed with the PCF colonoscope. Biopsies were taken with a cold forceps for histologyfrom the strictures. The remainder of the exam in the terminal ileum was normal consistent with skip areas. This was biopsied for background histology. The colon (entire examined portion) appeared normal. Biopsies weretaken with a cold forceps for histology from the right and left colon. Patient is status-post diverting bowel surgery with an end-sigmoid colostomy. The Simple Endoscopic Score for Crohn's Disease was determined basedon the endoscopic appearance of the mucosa in the following segments: - Ileum: Findings include aphthous ulcers less than 0.5 cm in size, 10-30% ulcerated surfaces, less than 50% of surfaces affected and multiple narrowings that can be passed. Segment score: 6. - Right Colon: Findings include no ulcers present, no ulcerated surfaces, no affected surfaces and no narrowings. Segment score: 0. - Transverse Colon: Findings include no ulcers present, no ulcerated surfaces, no affected surfaces and no narrowings. Segment score: 0. - Left Colon: Findings include no ulcers present, no ulceratedsurfaces, no affected surfaces and no narrowings. Segment score: 0. Segmentscore: 0. - Total SES-CD aggregate score: 6. Impression: - Re-demonstration of multifocal, fibrostenotic Crohn's ileitis (SES-CD: 6) with improved caliberof strictures. Dilation to 15 mm was successful at all sties on this encounter. - The remaining examination of the ileocolonic anastomosis and colon where normal. Biopsies taken from the strictures, background ileum, and right/left colon. - Healthy end-colostomy. Recommendation: - Continue current medications and diet. - Await pathology results from tissue sampling. Ifyou do not receive a call from my office after 5business days following today's procedure, please call my office at [phone] and speak to my nurse. - Follow-up with your referring provider (indicatedin the report above) as indicated. - Repeat colonoscopy with dilation pendingpathology results and overall clinical and/ or surgicalplans. -In the unusual situation that you developabdominal pain, bleeding or other significant problems in the days following this procedure please call my office [phone]). After hours and eveningsplease call [phone] and speak to the GI fellow silvana. Please tell the fellow that Dr. Collins did your procedure and that you were instructed to have the fellow call me or the physician covering for me to discuss the management of your condition. If youhave an urgent problem, please go to the nearestemergency room and have the ER doctor call my office duringthe day or the GI fellow after hours and weekends to arrange admission or transfer to our facility.Please bring this report with you if you go to theemergency room. - The outlined recommendations within this reportwere discussed with you following the procedure. Attending Participation: I personally performed the entire procedure. Electronically signed by Tahir Collins MD Tahir Collins M.D. 10/23/2024 10:03:50 AM Number of Addenda: 0 Note Initiated On: 10/23/2024 8:29 AM Tahir Collins MD ENDOSCOPY PROCEDURES Final Result documented in this encounter Visit Diagnoses Diagnosis Crohn's disease of both small and large intestine (HCC)- Primary Crohn's disease of both small and large intestine with intestinal obstruction (HCC) documented in this encounter Admitting Diagnoses Diagnosis Crohn's disease of both small and large intestine (HCC) documented in this encounter Administered Medications Inactive Administered Medications - up to 3 most recent administrations Medication Order MAR Action Action Date Dose Rate Site famotidine (PEPCID) injection 20 mg 20 mg, intravenous, Administer over 2 Minutes, Once, On Tue10/23/24 at 0845, For 1 dose, Pre-Op, Indications: RefluxIndications:Reflux Given 10/23/2024 8:31 AM RECREATION CLERK 20 mg ondansetron (ZOFRAN) injection 4 mg 4 mg, intravenous, Administer over 2 Minutes, Every 6 hours PRN, nausea, vomiting, Starting on Tue10/23/24 at 0800, Pre-Procedure (GI) Given 10/23/2024 8:31 AM RECREATION CLERK 4 mg sodium chloride 0.9% flush 0.5-20 mL 0.5-20 mL, intra-catheter, As needed, line care, Starting on Tue10/23/24 at 0800, Pre-Procedure (GI), Flush volume based on line type and size. Flush before and after each use. , Indications: FlushingIndications:Flushing sodium chloride 0.9% infusion 30 mL/hr, intravenous, Continuous, Starting on Tue10/23/24 at 0845, Pre-Procedure (GI) Restarted 10/23/2024 8:49 AM RECREATION CLERK Rate/Dose Verify 10/23/2024 8:34 AM RECREATION CLERK 30 mL/h r New Bag 10/23/2024 8:31 AM RECREATION CLERK 30 mL/hr 30 mL/hr documented in this encounter Historical Medications * This list may reflect changes made after this encounter. sertraline (ZOLOFT) 25 mg tablet Take 1 tablet (25 mg total) by mouth daily 08/29/2024 Wegovy 0.5 mg/0.5 mL auto-injector 09/17/2024 ALPRAZolam (XANAX) 0.5 mg tablet Take 1 tablet (0.5 mg total) by mouth daily as needed 08/29/2024 added in this encounter Active and Recently Administered Medications Times are shown in RECREATION CLERK. Scheduled Medication Order 10/21/2024 10/22/2024 10/23/2024 famotidine (PEPCID) injection 20 mg (COMPLETED) 20 mg, intravenous, Administer over 2 Minutes, Once, On Tue10/23/24 at 0845, For 1 dose, Pre-Op, Indications: Reflux 0831 (Given - Provid er: Julieta Clifford RN) Continuous Medication Order 10/21/2024 10/22/2024 10/23/2024 sodium chloride 0.9% infusion 30 mL/hr, intravenous, Continuous, Starting on Tue10/23/24 at 0845, Pre-Procedure (GI) 0831 (New Bag - Prov ider: Julieta Clifford RN)0834 (Rate/Dose Verify - Provider: Rosa Simmons CRNA)0848 (Paused - Provider: Rosa Simmons CRNA - Comment: Switch to gravity)0849 (Restarted - Provider: Rosa Simmons CRNA)0906 (Anesthesia Volume Adjustment - Provider: Rosa Simmons CRNA)0923 (Stopped - Provider: Dawna Chacon RN) PRN Medication Order 10/21/2024 10/22/2024 10/23/2024 ondansetron (ZOFRAN) injection 4 mg 4 mg, intravenous, Administer over 2 Minutes, Every 6 hours PRN, nausea, vomiting, Starting on Tue10/23/24 at 0800, Pre-Procedure (GI) 0831 (Given - Provid er: Julieta Clifford RN) ondansetron (ZOFRAN) injection 4 mg 4 mg, intravenous, Administer over 2 Minutes, Every 30 min PRN, nausea, vomiting, Starting on Tue10/23/24 at 0920, For 2 doses, Recovery (GI), Indications: Nausea and Vomiting sodium chloride 0.9% flush 0.5-20 mL 0.5-20 mL, intra-catheter, As needed, line care, Starting on Tue10/23/24 at 0800, Pre-Procedure (GI), Flush volume based on line type and size. Flush before and after each use. , Indications: Flushing documented in this encounter Orders Medications Ordered That Steven ht Not Have Been Administered Count Last Ordered Date First Ordered Date ondansetron (ZOFRAN) injection 4 mg 2 10/23 sodium chloride 0.9% flush 0.5-20 mL 1 10/07 Discharge Count Last Ordered Date First Orde red Date DISCHARGE PATIENT 1 10/23/2024 documented in this encounter Care Teams Fire Claims Adjuster Relationship Specialty Start Date End Date Emmanuel Wesley DO PCP - General Internal Medicine 12/11/21 documented as of this encounter
--- OUTSIDE RECORDS SUMMARY | 2024-11-11 19:09 | XMS_ITS | Encounter Summary ---
Author Organization [facility] Address [address] [place] [address] Care Team Providers Care Belt Operator Name Role Phone Emmanuel Wesley DO Primary Care Provider [phone] Reason for Referral * MRI/CAT/PET Scan (Routine) - Closed Specialty Diagnoses / Procedures Referred By Med bazan Referred To Contact Radiology Diagnoses Crohn's disease of both small and large intestine with intestinal obstruction (HCC) Colonic stricture (CMS/HCC) (HCC) Procedures MRI Enterography (abdomen) W WO Contrast Tahir Cardoso MD [address] [address] Phone: tel: fax: [address] [address] Referral ID Status Reason Start Date Expiration Date Visits Re quested Visits Authorized [id number] Closed 09/13/2024 11/11/2024 1 1 RAL SUPPLY ASSISTANT Reason for Visit * MRI/CAT/PET Scan (Routine) - Closed Specialty Diagnoses / Procedures Referred By Med bazan Referred To Contact Radiology Diagnoses Crohn's disease of both small and large intestine with intestinal obstruction (HCC) Colonic stricture (CMS/HCC) (HCC) Procedures MRI Enterography (abdomen) W WO Contrast Tahir Cardoso MD [address] [place] [address] Phone: tel: fax: [facility] [address] [facility] [place] [address] Referral ID Status Reason Start Date Expiration Date Visits Re quested Visits Authorized [id number] Closed 09/13/2024 11/11/2024 1 1 Encounter Details Date Type Department Care Team (Latest Contact Info) Description 09/28/2024 12:27 PM CENTRAL SUPPLY ASSISTANT - 09/28/2024 11:59 PM CENTRAL SUPPLY ASSISTANT Hospital Encounter [facility] [address] [place] [address] Tahir Cardoso MD [address] [facility] [address] [address] [place] [address] Crohn's disease of both small and large intestine with intestinal obstruction (HCC); Colonic stricture (CMS/HCC) (HCC) Discharge Disposition: Discharge to home or [...] containing alc ohol? 2-3 times a week 04/09/2024 Q2: How many drinks containi ng alcohol do you have on a typical day when you are drinking? 1 or 2 04/09/2024 Q3: How often do you have si x or more drinks on one occasion? Never 04/09/2024 Personal Safety Answer Date Recorded Have you ever been in or are you currently in a harmful physical or emotional relationship or is someone making you feel afraid or unsafe? Denies 04/09/2024 Sex and Gender Information Value Date Recorded Sex Assigned at Not on file 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:34 AM CENTRAL SUPPLY ASSISTANT Gender Identity Not on file Sexual Orientation Not on file documented as of this encounter Medications at Time of Discharge [...] a venous catheter as needed (line patency) upadacitinib (Rinvoq) 30 mg tablet extended release 24 hrIndications:Croh n's disease of small and large intestines with complication (HCC) Take 30 mg by mouth daily 90 tablet 10/16/2024 vitamin E 400 unit capsule Take 1 capsule (400 Units total) by mouth Wegovy 0.5 mg/0.5 mL auto-injector 09/17/2024 sodium, potassium & mag sulfates (SUPREP BOWEL KIT) 17.5-3.13-1.6 gram recon solnIndications:Gerardo wel Evacuation Take first bottle at 6 PM, take the second bottle 6 hours prior to arrival 354 mL 02/15/2024 4 upadacitinib (Rinvoq) 30 mg tablet extended release 24 hrIndications:Croh n's Disease Take 30 mg by mouth daily 90 tablet 09/24/2024 4 upadacitinib (Rinvoq) 45 mg tablet extended release 24 hrIndications:Croh n's Disease Take 1 tablet (45 mg total) by mouth daily X 12 weeks. 84 tablet 05/29/2024 4 vedolizumab (ENTYVIO) 300 mg recon solnIndications:Cr ohn's Disease Infuse 5 mL (300 mg total) into a venous catheter every 8 (eight) weeks Infused by: [facility] Home Care ([facility] order in Epic under 'Procedures' tab). 5 mL 5 08/03/2023 4 documented as of this encounter Discharge Disposition Disposition Code Departure Means Destination Discharge to home or self care documented in this encounter Miscellaneous Notes * Result Encounter Note - Parker De La Cruz MD - 09/28/2024 11:59 PM CENTRAL SUPPLY ASSISTANT Biopsies show the crohn's is unchanged. Will see what the upcoming scope looks like before making any changes. RAL SUPPLY ASSISTANT documented in this encounter Plan of Treatment Upcoming Encounters Date Type Department Care Team (Late st Contact Info) Description 11/09/2024 Plan of Care Documentation [address] [address] [address] [place] [phone] documented as of this encounter Procedures Procedure Name Priority Date/Time Associated Diagnosis Comments MRI ABDOMENT ENTEROGRAPHY W WO CONTRAST Schedule Routine, Read Routine (OP Routine) 09/28/2024 2:46 PM CENTRAL SUPPLY ASSISTANT Crohn's disease of both small and large intestine with intestinal obstruction (HCC) Colonic stricture (CMS/HCC) (HCC) documented in this encounter Results * MRI Enterography (abdomen) W WO Contrast (09/28/2024 2:46 PM CENTRAL SUPPLY ASSISTANT) Anatomical Region Laterality Modality Body N/A Magnetic Resonan ce 09/28/2024 3:33 PM CENTRAL SUPPLY ASSISTANT Impressions 09/28/2024 3:38 PM CENTRAL SUPPLY ASSISTANT 1. ??Approximately 2 cm mild stricture in the distal ileum which demonstrates mild bowel wall thickening, enhancement, diffusion restriction in keeping with acute on chronic inflammatory disease. 2. ??Parastomal hernia containing a nonobstructed loop of small bowel. Dictated by: Richard Avila M.D. The radiology attending physician has personally reviewed this study, and had reviewed and/or edited this written report and agrees with it. Electronically signed by: Yamileth Dacosta M.D. Narrative 09/28/2024 3:38 PM CENTRAL SUPPLY ASSISTANT EXAMINATION: MAGNETIC RESONANCE IMAGING OF THE ABDOMEN WITH AND WITHOUT CONTRAST HISTORY: 43-year-old man with ulcerative colitis with ileocecectomy and Reza pouch. ??Colonoscopy on 04/09/2024 demonstrated ileitis. TECHNIQUE: Magnetic resonance imaging of the abdomen was performed prior to and following the uneventful administration of intravenous Gadolinium contrast. Oral Volumen was administered prior to the examination. No glucagon was administered as cine imaging was performed. Protocol: MR Cine Enterography Contrast: Gadoterate Meglumine 20 mL COMPARISON: MRI dated 01/07/2020, 02/07/2024 CT FINDINGS: Bowel: There are postsurgical changes of ileocecectomy. ??There is an end colostomy in the left lower quadrant with a Reza pouch. ??There is a parastomal hernia containing a nonobstructed loop of small bowel. There is an approximately 2 cm segment in the distal ileum which demonstrates mild stricturing, bowel wall thickening, enhancement, and diffusion restriction (series 38 image 22, series 31 image 26). This is overall unchanged in appearance as series 3 image 43 of the 02/07/2024 CT scan. - cine imaging: cine series 24 images 376-400 demonstrate no significant movement across the above-mentioned stricture. Liver/Bile Ducts: There is severe hepatic steatosis. ??No hepatic iron deposition. ??No suspicious hepatic lesion. ??No biliary ductal dilatation. Gallbladder: Gallbladder sludge. ??Otherwise normal gallbladder. Pancreas: Normal Spleen: Normal Adrenals: Normal Kidneys: Normal. ??No hydronephrosis. Bladder: Normal Reproductive organs: Normal prostate gland Other Findings: No ascites, abdominal lymphadenopathy, or suspicious osseous lesion. Procedure Note Yamileth Dacosta MD - 09/28/2024 EXAMINATION: MAGNETIC RESONANCE IMAGING OF THE ABDOMEN WITH AND WITHOUT CONTRAST HISTORY: 43-year-old man with ulcerative colitis with ileocecectomy and Reza pouch. Colonoscopy on 04/09/2024 demonstrated ileitis. TECHNIQUE: Magnetic resonance imaging of the abdomen was performed prior to and following the uneventful administration of intravenous Gadolinium contrast. Oral Volumen was administered prior to the examination. No glucagon was administered as cine imaging was performed. Protocol: MR Cine Enterography Contrast: Gadoterate Meglumine 20 mL COMPARISON: MRI dated 01/07/2020, 02/07/2024 CT FINDINGS: Bowel: There are postsurgical changes of ileocecectomy. There is an end colostomy in the left lower quadrant with a Reza pouch. There is a parastomal hernia containing a nonobstructed loop of small bowel. There is an approximately 2 cm segment in the distal ileum which demonstrates mild stricturing, bowel wall thickening, enhancement, and diffusion restriction (series 38 image 22, series 31 image 26). This is overall unchanged in appearance as series 3 image 43 of the 02/07/2024 CT scan. - cine imaging: cine series 24 images 376-400 demonstrate no significant movement across the above-mentioned stricture. Liver/Bile Ducts: There is severe hepatic steatosis. No hepatic iron deposition. No suspicious hepatic lesion. No biliary ductal dilatation. Gallbladder: Gallbladder sludge. Otherwise normal gallbladder. Pancreas: Normal Spleen: Normal Adrenals: Normal Kidneys: Normal. No hydronephrosis. Bladder: Normal Reproductive organs: Normal prostate gland Other Findings: No ascites, abdominal lymphadenopathy, or suspicious osseous lesion. IMPRESSION: 1. Approximately 2 cm mild stricture in the distal ileum which demonstrates mild bowel wall thickening, enhancement, diffusion restriction in keeping with acute on chronic inflammatory disease. 2. Parastomal hernia containing a nonobstructed loop of small bowel. Dictated by: Richard Avila M.D. The radiology attending physician has personally reviewed this study, and had reviewed and/or edited this written report and agrees with it. Electronically signed by: Yamileth Dacosta M.D. Tahir Collins MD Jefe MRI PROCEDURES Fi nal Result documented in this encounter Visit Diagnoses Diagnosis Crohn's disease of both small and large intestine with intestinal obstruction (HCC) Colonic stricture (CMS/HCC) (HCC) Unspecified intestinal obstruction documented in this encounter Administered Medications Inactive Administered Medications - up to 3 most recent administrations Medication Order MAR Action Action Date Dose Rate Site gadoterate meglumine injection 20 mL 20 mL, intravenous, Once in imaging, contrast, Starting on Tue09/28/24 at 1446, For 1 dose Contrast Given 09/28/2024 2:48 PM CENTRAL SUPPLY ASSISTANT 20 mL documented in this encounter Orders Medications Ordered That Steven ht Not Have Been Administered Count Last Ordered Date First Ordered Date gadoterate meglumine injection 20 mL 1 09/08 documented in this encounter Care Teams Belt Operator Relationship Specialty Start Date End Date Emmanuel Wesley DO PCP - General Internal Medicine 12/11/21 documented as of this encounter
--- OUTSIDE RECORDS SUMMARY | 2024-11-11 19:09 | XMS_ITS | Encounter Summary ---
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 Denial scanned in to media tab. Completed by: Madhavi Hastings RPh INAL JUSTICE PROFESSOR documented in this encounter Plan of Treatment Upcoming Encounters Date Type Department Care Team (Late st Contact Info) Description 11/09/2024 Plan of Care Documentation [address] [address] [address] [place] [address] documented as of this encounter Visit Diagnoses Not on filedocumented in this encounter Care Teams Anime Artist Relationship Specialty Start Date End Date Emmanuel Wesley DO PCP - General Internal Medicine 12/11/21 documented as of this encounter
--- OUTSIDE RECORDS SUMMARY | 2024-11-11 19:09 | XMS_ITS | Referral Summary ---
Author Organization [facility] Address [address] [place] [address] Care Team Providers Care Fire Operations Forester Name Role Phone Emmanuel Wesley DO Primary Care Provider [phone]- [phone] Encounters Date Type Department Care Team Description 11/09/2024 7:30 AM BURGLAR ALARM INSPECTOR Home Care Visit [address] [address] [address] [place] [address] Franklin Cruz RN SN NON OASIS RECERTIFICATION 10/23/2024 8:45 AM BURGLAR ALARM INSPECTOR - 10/23/2024 9:30 AM BURGLAR ALARM INSPECTOR Surgery [facility] [address] [place] [address] Tahir Cardoso MD COLON STOMA WITH BALLOON DILATION 10/23/2024 8:34 AM BURGLAR ALARM INSPECTOR Anesthesia Event [facility] [address] [place] [address] Jonathan Ramires MD 10/23/2024 7:51 AM BURGLAR ALARM INSPECTOR - 10/23/2024 10:18 AM BURGLAR ALARM INSPECTOR Hospital Encounter [facility] [address] [place] [address] Tahir Cardoso MD Crohn's disease of both small and large intestine with intestinal obstruction (HCC) Discharge Disposition: Discharge to home or self care 10/09/2024 Documentation [facility] [address] [place] [address] Madhavi Hastings, [facility] 10/03/2024 Telephone [facility] [address] 12th [place] [address] [place] [address] Eryn Dalton LPN Med Management (Entyvio Frequency Change) 10/03/2024 Documentation [facility] [address] [place] [address] 12th [place] [address] [place] [id number] Christina Reid RN Entyvio 09/28/2024 Documentation [facility] [address] [place] [id number] Madhavi Hastings, [facility] 09/28/2024 12:27 PM BURGLAR ALARM INSPECTOR - 09/28/2024 11:59 PM BURGLAR ALARM INSPECTOR Hospital Encounter [facility] [address] [place] [address] Tahir Cardoso MD Crohn's disease of both small and large intestine with intestinal obstruction (HCC); Colonic stricture (CMS/HCC) (HCC) Discharge Disposition: Discharge to home or self care 09/24/2024 5:04 PM BURGLAR ALARM INSPECTOR - 09/24/2024 11:59 PM BURGLAR ALARM INSPECTOR Hospital Encounter [id number] [place] [address] Discharge Disposition: Discharge to home or self care 09/24/2024 Telephone [facility] [address] [place] [address] [place] [id number] Eryn Dalton LPN Med Management (Rinvoq Maintenance); Bridge Assistance Approved 09/24/2024 Documentation [facility] [address] [facility] [address] [place] [address] [place] [id number] Christina Reid, SANDRA Rinvoq 30 mg 09/24/2024 12:00 PM BURGLAR ALARM INSPECTOR Home Care Visit [address] [address] [address] [place] [address] Cecilia Bass, SANDRA SN INFUSION TREATMENT ROOM 08/16/2024 Orders Only [facility] [address] [place] [address] [place] [address] Christina Reid, SANDRA Crohn's disease of small and large intestines with complication (HCC) (Primary Dx); High risk medications (not anticoagulants) long-term use 08/15/2024 Telephone [facility] [address] [place] [address] [address] [place] [address] Taryn Bruno RN 08/13/2024 9:30 AM CDT Office Visit [facility] [address] [place] [address] [address] [place] [address] Izabela Gregory, LISS Crohn's disease of both small and large intestine with intestinal obstruction (HCC) (Primary Dx); Colostomy present (CMS/HCC) (HCC); Abdominal cramping from Last 3 Months Allergies Active Allergy Reactions Criticality Noted Date Comments Mercaptopurine Analogues (Thiopurines) Joint pain Medium 04/29/2020 Severe gout like joint pain that starts within days of taking medicine Medications sodium chloride 0.9 %, flush, (SALINE FLUSH INJ)Indications :line patency Infuse 10 mL into a venous catheter as needed (line patency) Active dicyclomine (BENTYL) 20 mg tablet Take 1 tablet (20 mg total) by mouth 4 (four) times a day as needed (cramping) 120 tablet 3 06/14/20 23 Active ergocalciferol (VITAMIN D) 50,000 unit capsuleIndicati ons:Low vitamin D level Take 1 capsule (50,000 Units total) by mouth every 30 (thirty) days 3 capsule 3 01/06/20 24 Active vitamin E 400 unit capsule Take 1 capsule (400 Units total) by mouth Active hyoscyamine (LEVSIN) 0.125 mg SL tablet Take 1 tablet (0.125 mg total) by mouth every 6 (six) hours as needed for cramping or diarrhea Dissolve tab under the tongue 100 tablet 5 08/13/20 24 2024 Active vedolizumab (ENTYVIO) 300 mg recon solnIndications :Crohn's disease of both small and large intestine without complication (CMS/HCC) (HCC) Infuse 5 mL (300 mg total) into a venous catheter every 4 (four) weeks Infused by: [facility] Care ([facility] order in [facility] under 'Procedures' tab). 10/03/20 24 Active upadacitinib (Rinvoq) 30 mg tablet extended release 24 hrIndications:C rohn's disease of small and large intestines with complication (HCC) Take 30 mg by mouth daily 90 tablet 10/16/20 24 Active ALPRAZolam (XANAX) 0.5 mg tablet Take 1 tablet (0.5 mg total) by mouth daily as needed 08/29/20 24 Active Wegovy 0.5 mg/0.5 mL auto-injector 09/17/20 Active sertraline (ZOLOFT) 25 mg tablet Take 1 tablet (25 mg total) by mouth daily 08/29/20 24 Active sodium, potassium & mag sulfates (SUPREP BOWEL KIT) 17.5-3.13-1.6 gram recon soln Take first bottle at 6 PM, take the second bottle 6 hours prior to arrival 354 mL 10/22/20 24 Active mesalamine (CANASA) 1,000 mg suppository UNWRAP AND INSERT ONE SUPPOSITORY RECTALLY EVERY NIGHT AT BEDTIME DIRECTED 09/21/20 22 2022 Discontinued(N o longer clinically indicated) sodium, potassium & mag sulfates (SUPREP BOWEL KIT) 17.5-3.13-1.6 gram recon solnIndications :Bowel Evacuation Take first bottle at 6 PM, take the second bottle 6 hours prior to arrival 354 mL 02/15/20 24 2023 Discontinued(R eorder) upadacitinib (Rinvoq) 45 mg tablet extended release 24 hrIndications:C rohn's Disease Take 1 tablet (45 mg total) by mouth daily X 12 weeks. 84 tablet 05/29/20 24 2023 Discontinued upadacitinib (Rinvoq) 30 mg tablet extended release 24 hrIndications:C rohn's Disease Take 30 mg by mouth daily 90 tablet 09/24/20 24 2023 Discontinued(R eorder) Active Problems Problem Noted Date Diagnosed Date Colostomy present ([facility]) 08/14/2024 Assessment & Plan (08/14/2024 3:55 PM CDT): Functionally the patient is much better since having the colostomy but it is really causing him a lot of distress from a body image and health perception aspect. He may find that weight loss will make the ostomy less obvious but he may need to find a place of acceptance while he is still working to improve his disease control. He would like to keep the possibility of an ostomy takedown active Abdominal cramping 08/14/2024 Assessment & Plan (08/14/2024 3:56 PM CDT): Patient can continue to use Levsin or dicyclomine. Unfortunately Levsin does not appear to be covered by his insurance but looks fairly affordable through [facility]. Healthcare maintenance 12/27/2023 Overview (05/08/2024): Immunizations: Influenza annual Pneumococcus s/p PCV 13 x 2, needs PCV 20 Zoster recommend HBV immune Covid vaccinated Skin cancer screening: consider referral to dermatology to discuss screening strategy Bone health: DEXA: at diagnosis. Check vitamin D CRC screening: annual for now Assessment & Plan (05/08/2024 10:09 AM CDT): I told him to get shingrix Assessment & Plan (12/27/2023 7:38 PM BURGLAR ALARM INSPECTOR): Colonoscopy and flex sig after CTE for colon cancer screening Encounter for examination of potential donor of organ and tissue 05/09/2023 High risk medications (not anticoagulants) long- term use 10/10/2018 Assessment & Plan (05/08/2024 10:09 AM CDT): All immunosuppressants carry a theoretical risk of infection, though vedolizumab appears the safest because it is gut specific. We recommend the patient get all available vaccinations, including the pneumococcus series, covid19 and annual influenza. We monitor CBC and HFP q 3 months for cytopenias and hepatotoxicity. All immunosuppressants increase the risk of infection so we recommend the patient get all available vaccinations, including the pneumococcal vaccine, covid19 and annual influenza vaccine. Upadacitinib increases the risk of thrombotic events so use the minimum effective dose for the shortest amount of time to decrease risk. Upadacitinib may increase the risk for malignancy. The patient should get all age-appropriate cancer screening and in addition should follow with a dray truck driver for skin cancer screening. We monitor CBC and HFP q 3 months for cytopenias and hepatotoxicity. I told him to get shingrix Assessment & Plan (12/27/2023 7:23 PM BURGLAR ALARM INSPECTOR): All immunosuppressants carry a theoretical risk of infection, though vedolizumab appears the safest because it is gut specific. We recommend the patient get all available vaccinations, including the pneumococcus series, covid19 and annual influenza. We monitor CBC and HFP q 3 months for cytopenias and hepatotoxicity. Stricture intestinal (CMS/HCC) 10/10/2018 Need for 23-polyvalent pneumococcal polysacchari de vaccine 10/10/2018 Crohn's disease with complication 05/19/2018 Overview (10/01/2024): Year of diagnosis: 2006. Year symptoms began: 2006. Phenotype: Stricturing (B2) with perianal disease. Distribution: ileocolonic (L3) without upper GI disease (L4). Extraintestinal manifestations: none. Complications: perianal abscess, SBO. Prior surgeries: . EUA x 3with setons (Shanae) 12/24/2022 Laparoscopic ileocolic resection with primary stapled qytw-kh-lqog functional end-to-end anastomosis between the mid ileum and the ascending colon, diverting end-sigmoid colostomy (Jovanni) Prior treatments: asacol, humira, cimzia, infliximab + 6MP (terrible gout), infliximab + MTX, Stelara, Xeljanz, Otezla. Current treatment: vedolizumab q 8. TPMT: ? Terrible gout flare with aza 2006 developed hematochezia Colonoscopy showed colitis Initially thought it was UC Asacol didn't help Was put on Humira Helped but he stopped himself because concerned for side effects Started Cimzia 2012 developed perianal fistula with abscess EUA x 3with setons (Shanae) Started Remicade and 6MP Developed horrible gout flare Switched to MTX with infliximab. Made him nauseated Entyvio in combination with methotrexate Also tried Stelara, Xeljanz, Otezla x2 months with no response retrial of Entyvio monthly subjective improvements 2020 Colonoscopy on vedolizumab q 4 and tofacitinib 10 BID shows very severe proctitis with most of the musocal ulcerated, also ICV stricture that was dilated Tried Zeposia with no response. June 2022 started Skyrizi with minimal response Positive JERALD virus so not a candidate for natalizumab fall restarted vedolizumab q 8 since this was what he felt the best on 12/24/2022 Laparoscopic ileocolic resection with primary stapled kmgw-yf-nfwi functional end-to-end anastomosis between the mid ileum and the ascending colon, diverting end-sigmoid colostomy (Jovanni) Continued vedolizumab postop 02/07/2024 CTE Mild mucosal enhancement and wall thickening of the distal and terminal ileum to the level of the anastomosis with the ascending colon consistent with mild acute Crohn's flare. No skip lesions, strictures, fistulas or abscesses are seen. Left lower quadrant colostomy. There is confluent low-density fluid in the subcutaneous fat surrounding the ostomy. This may represent a seroma or resolving hematoma. Infection cannot be excluded by imaging. Diffuse hepatic steatosis. Small hiatal hernia. Bibasilar atelectasis. Trace amount of ascites in the pelvis. Diverticulosis of the distal transverse and descending colon without evidence of acute diverticulitis. 04/09/2024 Colonoscopy - Patent hnvm-kt-wuws ileo-colonic anastomosis, characterized by ulceration and segmental ulcerations in the adjacent nisha-terminal ileum consistent with Rutgeerts Score i2. - Multifocal ulcerated fibrostenosis with ulceration consistent with Crohn's ileitis located from 10-15 cm from the ileocolonic anastomosis. The distal lesion was dilated to 15 mm and traversed, however a more proximal lesion (dilated to 12 mm) was more severe and could not be traversed on this encounter. Biopsies were taken. - The entire examined colon is otherwise normal with a patent end colostomy. Right and left colon biopsies taken. - Narrow caliber lumen and granularity in the Reza pouch. Biopsied. Path A. Small bowel, ileal stricture, biopsy - Small intestinal mucosa with acute ileitis and erosion B. Small bowel, ileum, biopsy - Normal small intestinal mucosa C. Large bowel, right colon, biopsy - Normal colonic mucosa D. Large bowel, left colon, biopsy - Normal colonic mucosa E. Rectum, biopsy - Colonic mucosa with acute cryptitis, and basal plasmacytosis 05/08/2024 add upadacitinib 09/30/2024 vedolizumab level 8.4 without antibodies Increase to q 4 Assessment & Plan (05/08/2024 1:44 PM CDT): He has severe stricturing ileal colonic and perianal Crohn's disease with failure old will biologics now with a diverting colostomy active disease with new strictures in his nisha terminal ileum. That Yani amount of is not enough. I recommend adding upadacitinib. Seems to have had some response to vedolizumab in addition to Rinvoq. I discussed the risks and benefits and he is agreeable to proceed. I do not think it is a good idea for him to be put back to continuity, certainly not right now with active disease in his usual terminal ileum. I think it is extremely likely that his proctitis and perianal disease will come right back after reestablished and the continuity. His rectum prior to diversion is the most severe I have ever seen. We can discuss this again in the future if and when we get hit his ileum into remission. -add Rinvoq. Continue vedolizumab -Repeat MRE CINE 6 mos after colonoscopy followed by repeat scope with dilation with Dr. Koroma -Get shingrix vaccine Assessment & Plan (01/13/2024 9:40 AM BURGLAR ALARM INSPECTOR): Seems ok with the stoma but self conscious about sounds/smells. At times. Explained that normal people's gi tracts can make noise or pass gas. Offered support through the [employer]. Assessment & Plan (12/27/2023 7:44 PM BURGLAR ALARM INSPECTOR): Severe stricturing ileocolonic and perianal crohn's refractory to essentially all classes of medications now s/p ICR and diverting colostomy with marked improvement in his QOL. He is still adjusting to having an ostomy. He is hopeful of having it reversed. I think his disease will come back and I worry he will get perianal disease again. The only med he hasn't seen yet is rinvoq but given he didn't respond to tofa 10 BID AND vedo together I am not hopeful. I think his QOL will be much better with an ostomy. Even if his colon and rectum look ok I think it will come right back when he is hooked back up. He should strongly consider keeping it. We can decide on what to do with the rectum later. He is aware of the risks and says he may want to give it a shot in the future and understands he may need a proctectomy. I'm concerned about the obstructive symptoms. It could be crohn's recurrence or his hernia. Counseled about signs of incareration which should prome ED visit. Will get CTE followed by colonoscopy and flex sig. I would like him to talk with Dr. Diaz about having and ostomy and his opinion about reversal. Crohn's disease of both small and large intestin e 04/06/2013 Assessment & Plan (08/14/2024 3:52 PM CDT): Unfortunately the patient's disease has been incredibly refractory to all therapies. Historically he had felt the best on Entyvio but had extremely bad proctitis on Entyvio plus Xeljanz in 2020. Currently he is feeling much better but we worry that some of this may be related to the fact that his rectum is responding to diversion. Now that he has been on Rinvoq for going on 3 months, we would recommend that he have a repeat colonoscopy towards the end of the year to see if there has been progress made. If he is able to achieve remission, ostomy takedown could be considered. He appeared to have quite a bit of scarring on his last procedure. He previously failed Humira, Cimzia, Remicade, Zeposia, Stelara, Skyrizi, Entyvio, Xeljanz, methotrexate, thiopurines, low-dose Flagyl. He is currently on a combination of Rinvoq and Entyvio every 8 weeks due to his incomplete response to Entyvio monotherapy. In the past his trough level of Entyvio was quite low so we will consider checking his trough level at [facility] or a facility that sends out to [facility]. The only combination he has not been on is a combination of a TNF and Entyvio, or cyclosporin. It is possible that at some point he will need a repeat ileocolonic resection but would like to see if the areas of stricturing seen on his previous scope have responded to his recent medication change. Immunizations Name Administration Dates Next Due DTP 06/11/1985, 1,06/13/1980,04/12,02/14/1980 HiB 08/01/1985 Influenza, Quadrivalent, Spl it, Preservative Free, Intramuscular 09/25/2020,09/30/2014,09/18/2013 Influenza, Unspecified 08/26/2017 MMR 06/27/1990,03/17/1981 OPV 06/11/1985, 1,04/12/1980,02/13 Pneumococcal Conjugate PCV 13 09/16/2017 Pneumococcal Polysaccharide PPV23 10/06/2018 Td, adsorbed 02/19/1994 Social History Tobacco Use Types Packs/Day Years Used Date Smoking Tobacco: Former Cigarettes Q uit: 2004 Smokeless Tobacco: Never Tobacco Cessation:Counseling Given: Not Answered Alcohol Use Standard Drinks/Week Comments Yes 0 (1 standard drink = 0.6 oz pur e alcohol) occasional OASIS D0700: Social Isolation Answer Da te Recorded Frequency of experiencing loneliness or isolatio n Never 11/09/2024 AUDIT-C Answer Date Recorded Q1: How often [...] on file 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:34 AM BURGLAR ALARM INSPECTOR Gender Identity Not on file Sexual Orientation Not on file Last Filed Vital Signs Vital Sign Reading Time Taken Comments Blood Pressure 126/69 10/23/2024 9:25 AM BURGLAR ALARM INSPECTOR Pulse 61 10/23/2024 9:28 AM BURGLAR ALARM INSPECTOR Temperature 36.2 ??C (97.2 ??F) 10/23/2024 9:10 AM CS T Respiratory Rate 16 10/23/2024 9:28 AM BURGLAR ALARM INSPECTOR Oxygen Saturation 97% 10/23/2024 9:28 AM BURGLAR ALARM INSPECTOR Inhaled Oxygen Concentration - - Weight 117.9 kg (260 lb) 09/24/2024 12:38 PM BURGLAR ALARM INSPECTOR Height 190.5 cm (6' 3 ) 09/24/2024 12:38 PM BURGLAR ALARM INSPECTOR Body Mass Index 32.5 09/24/2024 12:38 PM BURGLAR ALARM INSPECTOR Plan of Treatment Upcoming Encounters Date Type Department Care Team (Late st Contact Info) Description 11/09/2024 Plan of Care Documentation [address] [address] [place] [address] Procedures Procedure Name Priority Date/Time Associated Diagnosis Comments SURGICAL PATHOLOGY Routine 10/23/2024 8: 44 AM BURGLAR ALARM INSPECTOR Crohn's disease of both small and large intestine with intestinal obstruction (HCC) ENDO ADD ON OSTOMY BIOPSY 10/23/2024 8:34 AM BURGLAR ALARM INSPECTOR Crohn's disease of both small and large intestine with intestinal obstruction (HCC) COLON STOMA WITH BALLOON DILATION 10/23/2024 8:34 AM BURGLAR ALARM INSPECTOR Crohn's disease of both small and large intestine with intestinal obstruction (HCC) COLONOSCOPY 10/23/2024 8:29 AM BURGLAR ALARM INSPECTOR MRI ABDOMENT ENTEROGRAPHY W WO CONTRAST Schedule Routine, Read Routine (OP Routine) 09/28/2024 2:46 PM BURGLAR ALARM INSPECTOR Crohn's disease of both small and large intestine with intestinal obstruction (HCC) Colonic stricture (CMS/HCC) (HCC) REFLEX VEDOLIZUMAB AB Routine 09/24/2024 10:15 PM BURGLAR ALARM INSPECTOR BLOOD MISC TO LANGLEY Routine 09/24/2024 10 :15 PM BURGLAR ALARM INSPECTOR EGFR Routine 09/24/2024 7:06 PM BURGLAR ALARM INSPECTOR DIFFERENTIAL AUTO Routine 09/24/2024 7:0 6 PM BURGLAR ALARM INSPECTOR CRP (ACUTE PHASE) Routine 09/24/2024 7:0 6 PM BURGLAR ALARM INSPECTOR CBC WITH AUTO DIFFERENTIAL Routine 09/24/2024 7:06 PM BURGLAR ALARM INSPECTOR GLUCOSE, RANDOM (OUTREACH) Routine 09/24/2024 7:06 PM BURGLAR ALARM INSPECTOR COMPREHENSIVE METABOLIC PANEL WITHOUT GLUCOSE (OUTREACH) Routine 09/24/2024 7:06 PM BURGLAR ALARM INSPECTOR from Last 3 Months Results * Surgical pathology (10/23/2024 8:44 AM BURGLAR ALARM INSPECTOR) Tissue (Ileum, Biopsy) 10/23/2024 8:44 AM BURGLAR ALARM INSPECTOR Tissue (Ileum, Biopsy) 10/23/2024 9:00 AM BURGLAR ALARM INSPECTOR Tissue (Colon, Biopsy) 10/23/2024 9:03 AM BURGLAR ALARM INSPECTOR Tissue (Colon, Biopsy) 10/23/2024 9:04 AM BURGLAR ALARM INSPECTOR Narrative PATHOLOGY [facility] - 10/24/2024 4:57 PM BURGLAR ALARM INSPECTOR EPIC results best viewed via link to PDF [facility] [place] [address] Note to Patients: This report may contain [...] SURGICAL PATHOLOGY REPORT FINAL Patient Name: ?? CLARENCE PERALTAOPAL Siegel Gender: ??M : ??1980 (Age: 43) Address: ??[address] [place] [address], [place], [place] ??[address] [facility] #: ??[id number] Taken:10/23/2024 Received:10/23/2024 Reported: 10/24/2024 Patient Type: [facility] [...] interpretation for this case was performed at [facility], Department of Surgical Pathology, [address] [facility] [place], [place] [id number], ??[facility], [place] ??[address] ?? CLIA # [id number] The performance characteristics of some immunohistochemical stains, fluorescence in-situ hybridization tests and immunophenotyping by flow cytometry cited in this report (if any) were determined by the Surgical Pathology and Flow Cytometry Departments at [facility] as part of an ongoing associate quality engineer program and in compliance with federally mandated [...] Surgical Pathology and Flow Cytometry Departments of [facility]. ??It has not been cleared or approved by the U. S. Food and Drug Administration. IMAGES AND SCANNED DOCUMENTS, IF INCLUDED, ONLY VIEWABLE IN PDF VERSION OF REPORT Tahir Collins MD LAB PATHOLOGY ORDERAB LES Final Result PATHOLOGY [facility] [phone] * Colonoscopy (10/23/2024 8:29 AM BURGLAR ALARM INSPECTOR) Anatomical Region Laterality Modality Other Narrative Procedure Note Tahir Cardoso MD - 10/23/2024 8:29 AM CST ENDOSCOPY LAB Patient Name: Dante Peralta Procedure Date: 10/23/2024 8:29 AM Date of : 1980 Admit Type: Outpatient Age: 43 Gender: Male Attending MD: Tahir Collins M.D. Room: [facility] ENDOSCOPY ROOM 04 Note Status: Finalized Procedure: [...] The scopewas passed under direct vision. The [id number] introduced through the sigmoid colostomy andadvanced to the terminal ileum. The colonoscopy wasperformed without difficulty. The patient tolerated the procedure well. The quality of the bowelpreparation was adequate. The bowel preparation used was polyethylene glycol (PEG) via split doseinstruction. The quality of the bowel preparation was evaluated using the BBPS ([place] Bowel Preparation Scale)with scores of: Right Colon [...] Findings: There was evidence of a prior jmyz-rs-zaqc ileo-colonic anastomosisin the ascending colon. This was [...] today's procedure, please call my office at [phone] and speak to my nurse. - Follow-up with your referring provider (indicatedin the report above) as indicated. - Repeat colonoscopy with dilation pendingpathology results and overall clinical and/ or surgicalplans. -In the unusual situation that you developabdominal pain, bleeding or other significant problems in the days following this procedure please call my office [phone]). After hours and eveningsplease call [phone] and speak to the GI fellow silvana. [...] Tahir Collins MD ENDOSCOPY PROCEDURES Final Result * MRI Enterography (abdomen) W WO Contrast (09/28/2024 2:46 PM BURGLAR ALARM INSPECTOR) Anatomical Region Laterality Modality Body N/A Magnetic Resonan ce 09/28/2024 3:33 PM BURGLAR ALARM INSPECTOR Impressions 09/28/2024 3:38 PM BURGLAR ALARM INSPECTOR 1. ??Approximately 2 cm mild stricture in [...] Yamileth Dacosta M.D. Narrative 09/28/2024 3:38 PM BURGLAR ALARM INSPECTOR EXAMINATION: MAGNETIC RESONANCE IMAGING OF THE ABDOMEN [...] by: Yamileth Dacosta M.D. Tahir Collins MD IM MRI PROCEDURES Fi nal Result * Reflex Vedolizumab Ab (09/24/2024 10:15 PM BURGLAR ALARM INSPECTOR) Vedolizumab Ab <9.8 <9.8 ng/mL [place] Vedolizumab Ab See Footnote [facility] Comment: RESULT: Absence of detectable sslnbmpf-us-mzjzmefxorr. ADDITIONAL INFORMATION This test was developed and its performance characteristics determined by [facility] in a manner consistent with CLIA requirements. This test has not been cleared or approved by the U.S. Food and Drug Administration. Test Performed by: [facility] - [address] [address] Conservation Specialist: Nancy Ybarra Ph.D.; CLIA# [id number] Blood 09/24/2024 10:1 5 PM BURGLAR ALARM INSPECTOR 09/24/2024 10:15 PM BURGLAR ALARM INSPECTOR us Parker De La Cruz MD LAB BLOOD ORDERABLES Final Result [facility] [address] Department [place] [address] [place] * (ABNORMAL) BLOOD MISC TO [place] (09/24/2024 10:15 PM BURGLAR ALARM INSPECTOR) Test name, chem VEDOL Vedolizumab Quantitation [facility] [facility] Misc See Footnote(A) [facility] Comment: Test ? Result ? Flag ??Unit ?RefValue Vedolizumab QN, S ?8.4 ? L ?mcg/mL ?For concentrations of vedolizumab less than or equal to ?15.0 mcg/mL, reflex testing for fokrwzabzt-rv-zmglbvxckgs ?will be performed. ? REFERENCE VALUE ?Lower limit of quantitation = 2.0 mcg/mL ? ADDITIONAL INFORMATION ?This test was developed and its performance characteristics ?determined by [facility] in a manner consistent with CLIA ?requirements. This test has not been cleared or approved by ?the U.S. Food and Drug Administration. ?Test Performed by: ?[facility] ?[address] [place] [address] ?Conservation Specialist: Nancy Ybarra Ph.D.; CLIA# [id number] Blood 09/24/2024 10:1 5 PM BURGLAR ALARM INSPECTOR 09/24/2024 10:15 PM BURGLAR ALARM INSPECTOR Parker De La Cruz MD LAB BLOOD ORDERABLES Final Result Performing Organization Address [facility]/ZIP Co de Phone Number [facility] [address] Department [place] [address] [facility] * Glucose, random (Outreach) (09/24/2024 7:06 PM BURGLAR ALARM INSPECTOR) Glucose 91 70 - 199 mg/dL Comment: Interpretive Data Fasting glucose >/= 126 mg/dl is diagnostic for diabetes. ?? Fasting is defined as no caloric intake for at least 8 hours. Fasting glucose between 100 mg/dl to 125 mg/dl is diagnostic of prediabetes. In a patient with classic symptoms of hyperglycemia or hyperglycemic crisis, a random glucose >/= 200 mg/dl is diagnostic for diabetes. In the absence of unequivocal hyperglycemia, results should be confirmed by repeat testing. The classification and Diagnosis of Diabetes Diabetes Care 2021; 46: S19-S40. Current interpretive data was last revised 2022. Blood 09/24/2024 7:06 PM BURGLAR ALARM INSPECTOR 09/24/2024 7:06 PM BURGLAR ALARM INSPECTOR Parker De La Cruz MD LAB BLOOD ORDERABLES Final Result Performing Organization Address City/[facility]/ZIP Co de Phone Number [facility] [address] Department [employer] [address] * eGFR (09/24/2024 7:06 PM BURGLAR ALARM INSPECTOR) eGFR 84 >=60 mL/min/1. 73 m2 Comment: Interpretive Data Reference Interval Normal ?>/= 90 mL/min/1.73m2 Mildly decreased* ? 60 - 89 mL/min/1.73m2 Mildly to moderately decreased ?45 - 59 mL/min/1.73m2 Moderately to severely decreased ??30 - 44 mL/min/1.73m2 Severely decreased ?15 - 29 mL/min/1.73m2 Kidney Failure ?< 15 ??mL/min/1.73m2 *Relative to young adult level Estimated glomerular filtration rate is determined by the 2020 CKD-EPI equation recommended by the National Kidney Foundation (A Unifying Approach to GFR Estimation: Recommendations of the NKF-ASK Task Force on Reassessing the Inclusion of Race in Diagnosing Kidney Disease, JASN 2020). The CKD-EPI equation should not be used for patients with unstable renal function and has not been validated in children and those over 70. Current interpretive data was last reviewed 2021. Blood 09/24/2024 7:06 PM BURGLAR ALARM INSPECTOR 09/24/2024 7:06 PM BURGLAR ALARM INSPECTOR us Parker De La Cruz MD LAB BLOOD ORDERABLES Final Result [facility] [address] Department [place] [address] * Differential, auto (09/24/2024 7:06 PM BURGLAR ALARM INSPECTOR) Neutrophil abs 2.6 1.5 - 6.5 K/cumm Imm gran abs 0.0 0.0 - 0.1 K/cumm [facility] Lymphocyte abs 2.0 0.8 - 3.3 K/cumm [facility] Monocyte abs 0.4 0.2 - 0.8 K/cumm [facility] Eosinophil abs 0.0 0.0 - 0.5 K/cumm [facility] Basophil abs 0.0 0.0 - 0.1 K/cumm [facility] Neutrophil pct 51.5 % [facility] Comment: Interpretive Data Percent cell count reference ranges are not reported, since discordance with absolute values may lead to misinterpretation of CBC data. Current Interpretive Data was last revised on 2018. Imm gran pct 0.6 % [facility] Comment: Interpretive Data Percent cell count reference ranges are not reported, since discordance with absolute values may lead to misinterpretation of CBC data. Current Interpretive Data was last revised on 2018. Lymphocyte pct 39.3 % [facility] Comment: Interpretive Data Percent cell count reference ranges are not reported, since discordance with absolute values may lead to misinterpretation of CBC data. Current Interpretive Data was last revised on 2018. Monocyte pct 7.4 % [facility] Comment: Interpretive Data Percent cell count reference ranges are not reported, since discordance with absolute values may lead to misinterpretation of CBC data. Current Interpretive Data was last revised on 2018. Eosinophil pct 0.6 % [facility] Comment: Interpretive Data Percent cell count reference ranges are not reported, since discordance with absolute values may lead to misinterpretation of CBC data. Current Interpretive Data was last revised on 2018. Basophil pct 0.6 % [facility] Comment: Interpretive Data Percent cell count reference ranges are not reported, since discordance with absolute values may lead to misinterpretation of CBC data. Current Interpretive Data was last revised on 2018. Blood 09/24/2024 7:06 PM BURGLAR ALARM INSPECTOR 09/24/2024 7:06 PM BURGLAR ALARM INSPECTOR us Parker De La Cruz MD LAB BLOOD ORDERABLES Final Result [facility] [address] Department [place] [address] * (ABNORMAL) Comprehensive metabolic panel, without glucose (Outreach) (09/24/2024 7:06 PM BURGLAR ALARM INSPECTOR) Sodium 139 135 - 145 mmol/L Potassium, pl 3.8 3.3 - 4.9 mmol/L [facility] Chloride 105 97 - 110 mmol/L [facility] CO2 20(L) 22 - 32 mmol/L [facility] Anion gap 14 2 - 15 mmol/L [facility] BUN 13 6 - 25 mg/dL [facility] Creatinine 1.11 0.80 - 1.30 mg/dL [facility] Calcium 9.5 8.5 - 10.3 mg/dL [facility] Protein, pl 7.1 6.5 - 8.5 g/dL [facility] Albumin 4.7 3.5 - 5.0 g/dL [facility] Bilirubin, total 0.9 0.1 - 1.2 mg/dL [facility] Alk phos 39(L) 40 - 130 Units/L [facility] AST 48 10 - 50 Units/L [facility] ALT 72(H) 7 - 55 Units/L [facility] Blood 09/24/2024 7:06 PM BURGLAR ALARM INSPECTOR 09/24/2024 7:06 PM BURGLAR ALARM INSPECTOR Parker De La Cruz MD LAB BLOOD ORDERABLES Final Result [facility] [address] Department of Laboratories [place], [place] [id number] * (ABNORMAL) CBC with auto differential (09/24/2024 7:06 PM BURGLAR ALARM INSPECTOR) WBC 5.0 3.8 - 9.9 K/cumm Hgb 13.5 13.0 - 17.5 g/dL [facility] Hct 39.4 38.9 - 50.3 % [facility] Plt 244 150 - 400 K/cumm [facility] MPV 10.0 9.1 - 12.3 fL [facility] RBC 4.17(L) 4.30 - 5.80 M/cumm [facility] MCV 94.5 81.3 - 96.4 fL [facility] MCH 32.4 27.1 - 33.3 pg [facility] MCHC 34.3 32.3 - 35.7 g/dL [facility] RDW CV 13.2 11.1 - 14.9 % [facility] RDW SD 46.0 35.7 - 48.1 fL [facility] NRBC abs 0.00 0.00 - 0.01 K/cumm [facility] Blood 09/24/2024 7:06 PM BURGLAR ALARM INSPECTOR 09/24/2024 7:06 PM BURGLAR ALARM INSPECTOR Parker De La Cruz MD LAB BLOOD ORDERABLES Final Result Performing Organization Address City/[facility]/ZIP Co de Phone Number [facility] [address] Department [place] [address] * CRP (acute phase) (09/24/2024 7:06 PM BURGLAR ALARM INSPECTOR) CRP <3.0 <=10.0 mg/L Blood 09/24/2024 7:06 PM BURGLAR ALARM INSPECTOR 09/24/2024 7:06 PM BURGLAR ALARM INSPECTOR Parker De La Cruz MD LAB BLOOD ORDERABLES Final Result Performing Organization Address [facility] de Phone Number [facility] [address] [place] [address] from Last 3 Months Insurance GENERIC [employer] [address] [facility] [id number] [place] [address] [facility] [employer]CIAL GENERIC BLUE [employer] [place] Advance Directives For more information, please contact: [phone] * Full Code (Latest Code Status on File) Date Activated Date Inactivated Comments 10/23/2024 8:01 AM 10/23/2024 2:28 PM * Full Code Date Activated Date Inactivated Comments 04/09/2024 10:11 AM 04/09/2024 5:36 PM * Full Code Date Activated Date Inactivated Comments 08/07/2021 8:05 AM 08/07/2021 2:29 PM * Full Code Date Activated Date Inactivated Comments 07/27/2019 7:32 AM 07/27/2019 1:22 PM Care Teams Fire Operations Forester Relationship Specialty Start Date End Date Emmanuel Wesley DO PCP - General Internal Medicine 12/11/21
--- OUTSIDE RECORDS SUMMARY | 2024-11-11 19:09 | XMS_ITS | Encounter Summary ---
Author Organization [facility] Address [address] [place] [address] Phone Care Team Providers Care Hospital Monitor Name Role Phone Emmanuel Wesley DO Primary Care Provider [phone]- [phone] Reason for Visit * Reason Onset Date Comments Entyvio 10/03/2024 Encounter Details Date Type Department Care Team (Late st Contact Info) Description 10/03/2024 Documentation [facility] Gastroenterology [address] [place] [address] [place] [address] Christina Reid, RN [place] Social History Tobacco Use Types Packs/Day Years [...] on file 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 Increase to q 4. MyChart message sent to patient regarding results & recommendations. Therapy plan request sent to Lift SupervisorEryn R ECONOMICS TEACHER documented in this encounter Plan of Treatment Upcoming Encounters Date Type Department Care Team (Late st Contact Info) Description 11/09/2024 Plan of Care Documentation [address] [address] [address] [place] [address] documented as of this encounter Visit Diagnoses Not on filedocumented in this encounter Care Teams Hospital Monitor Relationship Specialty Start Date End Date Emmanuel Wesley DO PCP - General Internal Medicine 12/11/21 documented as of this encounter
--- OUTSIDE RECORDS SUMMARY | 2024-11-11 19:09 | XMS_ITS | Clinical Summary ---
Author Organization [facility] Address [address] [place] [address] Care Team Providers Care Irrigation Worker Name Role Phone Emmanuel Wesley DO Primary Care Provider [phone] Allergies Active Allergy Reactions Criticality Noted Date [...] catheter every 4 (four) weeks Infused by: [facility] ([facility] order in [facility] under 'Procedures' tab). 10/03/20 24 Active upadacitinib [...] SUPPOSITORY RECTALLY EVERY NIGHT AT BEDTIME DIRECTED 09/21/202022 Discontinued(N o longer clinically indicated) sodium, potassium [...] Problem Noted Date Diagnosed Date Colostomy present (CMS/HCC) 08/14/2024 Assessment & Plan (08/14/2024 3:55 PM [...] his insurance but looks fairly affordable through [facility]. Healthcare maintenance 12/27/2023 Overview (05/08/2024): Immunizations: [...] shingrix Assessment & Plan (12/27/2023 7:38 PM STACKER STRAIGHTENER): Colonoscopy and flex sig after CTE for [...] and in addition should follow with a carriage feeder for skin cancer screening. We monitor CBC and HFP q 3 months for cytopenias and hepatotoxicity. I told him to get shingrix Assessment & Plan (12/27/2023 7:23 PM STACKER STRAIGHTENER): All immunosuppressants carry a theoretical risk of [...] SBO. Prior surgeries: . EUA x 3with setparadise (Shanae) 12/24/2022 Laparoscopic ileocolic resection with primary stapled wtwz-ez-ysmo functional end-to-end anastomosis between the mid ileum [...] 12/24/2022 Laparoscopic ileocolic resection with primary stapled kiss-yj-qour functional end-to-end anastomosis between the mid ileum [...] of acute diverticulitis. 04/09/2024 Colonoscopy - Patent vbxf-cb-okyr ileo-colonic anastomosis, characterized by ulceration and segmental [...] vaccine Assessment & Plan (01/13/2024 9:40 AM STACKER STRAIGHTENER): Seems ok with the stoma but self conscious about sounds/smells. At times. Explained that normal people's gi tracts can make noise or pass gas. Offered support through the [employer]. Assessment & Plan (12/27/2023 7:44 PM STACKER STRAIGHTENER): Severe stricturing ileocolonic and perianal crohn's refractory [...] will consider checking his trough level at [facility] or a facility that sends out to [facility]. The only combination he has not been on is a combination of a TNF and Entyvio, or cyclosporin. It is possible that at some point he will need a repeat ileocolonic resection but would like to see if the areas of stricturing seen on his previous scope have responded to his recent medication change. Encounters Date Type Department Care Team Description 11/09/2024 7:30 AM STACKER STRAIGHTENER Home Care Visit [facility] - [address] [place] [address] Franklin Cruz RN SN NON OASIS RECERTIFICATION 10/23/2024 8:45 AM STACKER STRAIGHTENER - 10/23/2024 9:30 AM STACKER STRAIGHTENER Surgery [facility] [address] [place] [address] Tahir Cardoso MD COLON STOMA WITH BALLOON DILATION 10/23/2024 8:34 AM STACKER STRAIGHTENER Anesthesia Event [facility] [address] [place] [address] Jonathan Ramires MD 10/23/2024 7:51 AM STACKER STRAIGHTENER - 10/23/2024 10:18 AM STACKER STRAIGHTENER Hospital Encounter [facility] [address] [place] [address] Tahir Cardoso MD Crohn's disease of both small and large intestine with intestinal obstruction (HCC) Discharge Disposition: Discharge to home or self care 10/09/2024 Documentation [facility] [address] [place] [phone] Madhavi Hastings, [facility] 10/03/2024 Telephone [facility] [address] Advanced Medicine 12th [place] [address] [place] [phone] Eryn Dalton LPN Med Management (Entyvio Frequency Change) 10/03/2024 Documentation [facility] [address] [facility] Advanced Medicine 12th [place] [address] [place] [phone] Christina Reid RN Entyvio 09/28/2024 12:27 PM STACKER STRAIGHTENER - 09/28/2024 11:59 PM STACKER STRAIGHTENER Hospital Encounter [facility] [address] [place] [address] Tahir Cardoso MD Crohn's disease of both small and large intestine with intestinal obstruction (HCC); Colonic stricture (CMS/HCC) (HCC) Discharge Disposition: Discharge to home or self care 09/28/2024 Documentation [facility] [address] [place] [phone] Madhavi Hastings, [facility] 09/24/2024 5:04 PM STACKER STRAIGHTENER - 09/24/2024 11:59 PM STACKER STRAIGHTENER Hospital Encounter [address] [place] [phone] Discharge Disposition: Discharge to home or self care 09/24/2024 12:00 PM STACKER STRAIGHTENER Home Care Visit [address] [place] [address] [address] [place] [phone] Cecilia Bass, SANDRA SN INFUSION TREATMENT ROOM 09/24/2024 Telephone [facility] Medicine 12th [place] [address] [place] [address] Eryn Dalton LPN Med Management (Rinvoq Maintenance); Bridge Assistance Approved 09/24/2024 Documentation [facility] 12th [place] [address] [place] [phone] Christina Reid, SANDRA Rinvoq 30 mg 08/16/2024 Orders Only [facility] [address] [facility] 12th [place] [address] [place] [phone] Christina Reid, SANDRA Crohn's disease of small and large intestines with complication (HCC) (Primary Dx); High risk medications (not anticoagulants) long-term use 08/15/2024 Telephone [facility] [address] [place] [phone] Taryn Bruno RN 08/13/2024 9:30 AM CDT Office Visit [facility] [address] [place] [address] Medical Office [address] [place] [address] Izabela Gregory, LISS Crohn's disease of both small and large intestine with intestinal obstruction (HCC) (Primary Dx); Colostomy present (CMS/HCC) (HCC); Abdominal cramping from Last 3 Months Immunizations Name Administration Dates Next Due DTP 06/11/1985, 1,06/13/1980,04/12,02/14/1980 HiB 08/01/1985 Influenza, Quadrivalent, Spl it, Preservative Free, Intramuscular 09/25/2020,09/30/2014,09/18/2013 Influenza, Unspecified 08/26/2017 MMR 06/27/1990,03/17/1981 OPV 06/11/1985, 1,04/12/1980,02/13 Pneumococcal Conjugate PCV 13 09/16/2017 Pneumococcal Polysaccharide PPV23 10/06/2018 Td, adsorbed 02/19/1994 Surgical History Surgery Date Site/Laterality Comments ABCESS DRAINAGE 04/06/201301/17 ANAL FISTULOTOMY 08/22/2013 BOWEL RESECTION 11/07/2022 - 11/06/2023 ileocolic with diverting colostomy COLONOSCOPY Medical History Medical History Date Comments Crohn's disease (CMS/HCC) (HCC) dx 2007 Anxiety Family History Medical History Relation Name Comments Diabetes Maternal Grandfather Family history of diabetes mellitus - (Added by TW Conv)/Family history of diabetes mellitus - (Added by TW Conv) Cancer Maternal Grandmother Colon cancer Neg Hx Crohn's disease Neg Hx Ulcerative colitis Neg Hx Relation Name Status Comments Maternal Grandfather Maternal Grandmother Social History Tobacco Use Types Packs/Day Years Used Date Smoking Tobacco: Former Cigarettes Q uit: 2005 Smokeless Tobacco: Never Tobacco Cessation:Counseling Given: Not [...] on file 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:34 AM STACKER STRAIGHTENER Gender Identity Not on file Sexual Orientation Not on file Obstetrics History Last Filed Vital Signs Vital Sign Reading Time Taken Comments Blood Pressure 126/69 10/23/2024 9:25 AM STACKER STRAIGHTENER Pulse 61 10/23/2024 9:28 AM STACKER STRAIGHTENER Temperature 36.2 ??C (97.2 ??F) 10/23/2024 9:10 AM CS T Respiratory Rate 16 10/23/2024 9:28 AM STACKER STRAIGHTENER Oxygen Saturation 97% 10/23/2024 9:28 AM STACKER STRAIGHTENER Inhaled Oxygen Concentration - - Weight 117.9 kg (260 lb) 09/24/2024 12:38 PM STACKER STRAIGHTENER Height 190.5 cm (6' 3 ) 09/24/2024 12:38 PM STACKER STRAIGHTENER Body Mass Index 32.5 09/24/2024 12:38 PM STACKER STRAIGHTENER Plan of Treatment Upcoming Encounters Date Type Department Care Team (Late st Contact Info) Description 11/09/2024 Plan of Care Documentation [facility] [address] [address] [address] [place] [address] Health Maintenance Due Date Last Done Comments Depression Screening 1980 Hepatitis C Screening 1980 Varicella Vaccines (1 of 2 - 13+ 2-dose series) 1992 DTaP/Tdap/Td Vaccine (6 - Tdap) 02/20/1994 02/19/1994, 06/11/1985, 06/18/1981, Additional history exists Regular Well Visit/Exam 18-64 1997 Covid-19 Vaccine ( season) 2024 02/12/2021, 01/13/2021 Influenza Vaccine (#1) 2024 0, 08/26/2017, 09/30/2014, Additional history exists Pneumococcal vaccine <65 Aged Out 10/06/2018, 09/07 No longer eligible based on patient's age to complete this topic HPV Vaccines Aged Out No longer eligi ble based on patient's age to complete this topic Procedures Procedure Name Priority Date/Time Associated Diagnosis Comments SURGICAL PATHOLOGY Routine 10/23/2024 8: 44 AM STACKER STRAIGHTENER Crohn's disease of both small and large intestine with intestinal obstruction (HCC) ENDO ADD ON OSTOMY BIOPSY 10/23/2024 8:34 AM STACKER STRAIGHTENER Crohn's disease of both small and large intestine with intestinal obstruction (HCC) COLON STOMA WITH BALLOON DILATION 10/23/2024 8:34 AM STACKER STRAIGHTENER Crohn's disease of both small and large intestine with intestinal obstruction (HCC) COLONOSCOPY 10/23/2024 8:29 AM STACKER STRAIGHTENER MRI ABDOMENT ENTEROGRAPHY W WO CONTRAST Schedule Routine, Read Routine (OP Routine) 09/28/2024 2:46 PM STACKER STRAIGHTENER Crohn's disease of both small and large intestine with intestinal obstruction (HCC) Colonic stricture (CMS/HCC) (HCC) REFLEX VEDOLIZUMAB AB Routine 09/24/2024 10:15 PM STACKER STRAIGHTENER BLOOD MISC TO [place] Routine 09/24/2024 10 :15 PM STACKER STRAIGHTENER EGFR Routine 09/24/2024 7:06 PM STACKER STRAIGHTENER DIFFERENTIAL AUTO Routine 09/24/2024 7:0 6 PM STACKER STRAIGHTENER CRP (ACUTE PHASE) Routine 09/24/2024 7:0 6 PM STACKER STRAIGHTENER CBC WITH AUTO DIFFERENTIAL Routine 09/24/2024 7:06 PM STACKER STRAIGHTENER GLUCOSE, RANDOM (OUTREACH) Routine 09/24/2024 7:06 PM STACKER STRAIGHTENER COMPREHENSIVE METABOLIC PANEL WITHOUT GLUCOSE (OUTREACH) Routine 09/24/2024 7:06 PM STACKER STRAIGHTENER from Last 3 Months Results * Surgical pathology (10/23/2024 8:44 AM STACKER STRAIGHTENER) Tissue (Ileum, Biopsy) 10/23/2024 8:44 AM STACKER STRAIGHTENER Tissue (Ileum, Biopsy) 10/23/2024 9:00 AM STACKER STRAIGHTENER Tissue (Colon, Biopsy) 10/23/2024 9:03 AM STACKER STRAIGHTENER Tissue (Colon, Biopsy) 10/23/2024 9:04 AM STACKER STRAIGHTENER Narrative PATHOLOGY [facility] - 10/24/2024 4:57 PM STACKER STRAIGHTENER EPIC results best viewed via link to PDF [facility] Shaniqua Harding [facility] [place] [address] Note to Patients: This report may contain [...] Gender: ??M : ??1980 (Age: 43) Address: ??[address] [place] [address] ??[id number] Hospital #: ??[id number] Taken:10/23/2024 Received:10/23/2024 Reported: 10/24/2024 Patient Type: [facility] EP SAME Client ?[facility] Service: Gastro Location: Physician(s): ??MD Emmanuel Liu, [...] interpretation for this case was performed at [facility], Department of Surgical Pathology, [address] [facility] [place], [id number], ??[facility], [place] ??[address] ?? CLIA # [id number] The performance characteristics of some immunohistochemical stains, fluorescence in-situ hybridization tests and immunophenotyping by flow cytometry cited in this report (if any) were determined by the Surgical Pathology and Flow Cytometry Departments at [facility] as part of an ongoing quality assurance coach program and in compliance with federally mandated [...] Surgical Pathology and Flow Cytometry Departments of [facility]. ??It has not been cleared or approved by the U. S. Food and Drug Administration. IMAGES AND SCANNED DOCUMENTS, IF INCLUDED, ONLY VIEWABLE IN PDF VERSION OF REPORT Tahir Collins MD LAB PATHOLOGY ORDERAB LES Final Result PATHOLOGY [facility] [phone] * Colonoscopy (10/23/2024 8:29 AM STACKER STRAIGHTENER) Anatomical Region Laterality Modality Other Narrative Procedure Note Tahir Cardoso MD - 10/23/2024 8:29 AM CST ENDOSCOPY LAB Patient Name: Dante Peralta Procedure Date: 10/23/2024 8:29 AM Date of : 1980 Admit Type: Outpatient Age: 43 Gender: Male Attending MD: Tahir Collins M.D. Room: [facility] ENDOSCOPY ROOM 04 Note Status: Finalized [...] The scopewas passed under direct vision. The [id number] introduced through the sigmoid colostomy andadvanced to the terminal ileum. The colonoscopy wasperformed without difficulty. The patient tolerated the procedure well. The quality of the bowelpreparation was adequate. The bowel preparation used was polyethylene glycol (PEG) via split doseinstruction. The quality of the bowel preparation was evaluated using the BBPS ([place] Bowel Preparation Scale)with scores of: Right Colon [...] Findings: There was evidence of a prior foew-uw-xwek ileo-colonic anastomosisin the ascending colon. This was [...] today's procedure, please call my office at [phone] and speak to my nurse. - Follow-up with your referring provider (indicatedin the report above) as indicated. - Repeat colonoscopy with dilation pendingpathology results and overall clinical and/ or surgicalplans. -In the unusual situation that you developabdominal pain, bleeding or other significant problems in the days following this procedure please call my office [phone]). After hours and eveningsplease call [phone] and speak to the GI fellow silvana. [...] (abdomen) W WO Contrast (09/28/2024 2:46 PM STACKER STRAIGHTENER) Anatomical Region Laterality Modality Body N/A Magnetic Resonan ce 09/28/2024 3:33 PM STACKER STRAIGHTENER Impressions 09/28/2024 3:38 PM STACKER STRAIGHTENER 1. ??Approximately 2 cm mild stricture in [...] Yamileth Dacosta M.D. Narrative 09/28/2024 3:38 PM STACKER STRAIGHTENER EXAMINATION: MAGNETIC RESONANCE IMAGING OF THE ABDOMEN [...] by: Yamileth Dacosta M.D. Tahir Collins MD IMG MRI PROCEDURES Fi nal Result * Reflex Vedolizumab Ab (09/24/2024 10:15 PM STACKER STRAIGHTENER) Pathologist [facility] Vedolizumab Ab <9.8 <9.8 ng/mL [facility] Vedolizumab Ab See Footnote [facility] Comment: RESULT: Absence of detectable zxccizqk-qv-vdjxjzfimvf. ADDITIONAL INFORMATION This test was developed and its performance characteristics determined by [facility] in a manner consistent with CLIA requirements. This test has not been cleared or approved by the U.S. Food and Drug Administration. Test Performed by: [facility] [place] [address] Life Assurance Representative: Nancy Ybarra Ph.D.; CLIA# [id number] Blood 09/24/2024 10:1 5 PM STACKER STRAIGHTENER 09/24/2024 10:15 PM STACKER STRAIGHTENER Parker De La Cruz MD LAB BLOOD ORDERABLES Final Result [facility] [address] Department [place] [address] [facility] * (ABNORMAL) BLOOD MISC TO [place] (09/24/2024 10:15 PM STACKER STRAIGHTENER) Pathologist [facility] Test name, chem VEDOL Vedolizumab Quantitation [facility] Misc See Footnote(A) [facility] Comment: Test ? Result ? Flag ??Unit ?RefValue Vedolizumab QN, S ?8.4 ? L ?mcg/mL ?For concentrations of vedolizumab less than or equal to ?15.0 mcg/mL, reflex testing for veauzzlatd-rl-zkoxivwngxk ?will be performed. ? REFERENCE VALUE ?Lower limit of quantitation = 2.0 mcg/mL ? ADDITIONAL INFORMATION ?This test was developed and its performance characteristics ?determined by [facility] in a manner consistent with CLIA ?requirements. This test has not been cleared or approved by ?the U.S. Food and Drug Administration. ?Test Performed by: ?[facility] - [facility] ?[address] [place] [address] ?Life Assurance Representative: Nancy Ybarra Ph.D.; CLIA# [id number] Blood 09/24/2024 10:1 5 PM STACKER STRAIGHTENER 09/24/2024 10:15 PM STACKER STRAIGHTENER us Parker De La Cruz MD LAB BLOOD ORDERABLES Final Result [facility] [address] Department [place] [address] [facility] * Glucose, random (Outreach) (09/24/2024 7:06 PM STACKER STRAIGHTENER) Glucose 91 70 - 199 mg/dL Comment: [...] last revised 2022. Blood 09/24/2024 7:06 PM STACKER STRAIGHTENER 09/24/2024 7:06 PM STACKER STRAIGHTENER us Parker De La Cruz MD LAB BLOOD ORDERABLES Final Result Performing Organization Address [facility]/State/ZIP Co de Phone Number [facility] [address] Department [place] [address] * eGFR (09/24/2024 7:06 PM STACKER STRAIGHTENER) eGFR 84 >=60 mL/min/1. 73 m2 Comment: [...] of Race in Diagnosing Kidney Disease, JASN 202). The CKD-EPI equation should not be used for patients with unstable renal function and has not been validated in children and those over 70. Current interpretive data was last reviewed 2021. Blood 09/24/2024 7:06 PM STACKER STRAIGHTENER 09/24/2024 7:06 PM STACKER STRAIGHTENER us Parker De La Cruz MD LAB BLOOD ORDERABLES Final Result [facility] [address] Department [place] [address] * Differential, auto (09/24/2024 7:06 PM STACKER STRAIGHTENER) Neutrophil abs 2.6 1.5 - 6.5 K/cumm Imm gran abs 0.0 0.0 - 0.1 K/cumm [facility] Lymphocyte abs 2.0 0.8 - 3.3 K/cumm [facility] Monocyte abs 0.4 0.2 - 0.8 K/cumm [facility] Eosinophil abs 0.0 0.0 - 0.5 K/cumm [facility] Basophil abs 0.0 0.0 - 0.1 K/cumm [facility] Neutrophil pct 51.5 % [facility] Comment: Interpretive Data Percent cell count reference ranges are not reported, since discordance with absolute values may lead to misinterpretation of CBC data. Current Interpretive Data was last revised on 2018. Imm gran pct 0.6 % [facility] Comment: Interpretive Data Percent cell count reference ranges are not reported, since discordance with absolute values may lead to misinterpretation of CBC data. Current Interpretive Data was last revised on 2018. Lymphocyte pct 39.3 % [facility] Comment: Interpretive Data Percent cell count reference ranges are not reported, since discordance with absolute values may lead to misinterpretation of CBC data. Current Interpretive Data was last revised on 2018. Monocyte pct 7.4 % [facility] Comment: Interpretive Data Percent cell count reference ranges are not reported, since discordance with absolute values may lead to misinterpretation of CBC data. Current Interpretive Data was last revised on 2018. Eosinophil pct 0.6 % [facility] Comment: Interpretive Data Percent cell count reference ranges are not reported, since discordance with absolute values may lead to misinterpretation of CBC data. Current Interpretive Data was last revised on 2018. Basophil pct 0.6 % [facility] Comment: Interpretive Data Percent cell count reference ranges are not reported, since discordance with absolute values may lead to misinterpretation of CBC data. Current Interpretive Data was last revised on 2018. Blood 09/24/2024 7:06 PM STACKER STRAIGHTENER 09/24/2024 7:06 PM STACKER STRAIGHTENER Parker De La Cruz MD LAB BLOOD ORDERABLES Final Result [facility] [address] Department [place] [address] * (ABNORMAL) Comprehensive metabolic panel, without glucose (Outreach) (09/24/2024 7:06 PM STACKER STRAIGHTENER) Sodium 139 135 - 145 mmol/L Potassium, pl 3.8 3.3 - 4.9 mmol/L [facility] Chloride 105 97 - 110 mmol/L [facility] CO2 20(L) 22 - 32 mmol/L [facility] Anion gap 14 2 - 15 mmol/L [facility] BUN 13 6 - 25 mg/dL [facility] Creatinine 1.11 0.80 - 1.30 mg/dL [facility] Calcium 9.5 8.5 - 10.3 mg/dL [facility] Protein, pl 7.1 6.5 - 8.5 g/dL [facility] Albumin 4.7 3.5 - 5.0 g/dL [facility] Bilirubin, total 0.9 0.1 - 1.2 mg/dL [facility] Alk phos 39(L) 40 - 130 Units/L [facility] AST 48 10 - 50 Units/L [facility] ALT 72(H) 7 - 55 Units/L [facility] Blood 09/24/2024 7:06 PM STACKER STRAIGHTENER 09/24/2024 7:06 PM STACKER STRAIGHTENER Parker De La Cruz MD LAB BLOOD ORDERABLES Final Result Performing Organization Address [facility]/ZIP Co de Phone Number [facility] [address] [place] [address] * (ABNORMAL) CBC with auto differential (09/24/2024 7:06 PM STACKER STRAIGHTENER) [facility] WBC 5.0 3.8 - 9.9 K/cumm Hgb 13.5 13.0 - 17.5 g/dL [facility] Hct 39.4 38.9 - 50.3 % [facility] Plt 244 150 - 400 K/cumm [facility] MPV 10.0 9.1 - 12.3 fL [facility] RBC 4.17(L) 4.30 - 5.80 M/cumm [facility] MCV 94.5 81.3 - 96.4 fL [facility] MCH 32.4 27.1 - 33.3 pg [facility] MCHC 34.3 32.3 - 35.7 g/dL [facility] RDW CV 13.2 11.1 - 14.9 % [facility] RDW SD 46.0 35.7 - 48.1 fL [facility] NRBC abs 0.00 0.00 - 0.01 K/cumm [facility] Blood 09/24/2024 7:06 PM STACKER STRAIGHTENER 09/24/2024 7:06 PM STACKER STRAIGHTENER Parker De La Cruz MD LAB BLOOD ORDERABLES Final Result Performing Organization Address [facility]/ZIP Co de Phone Number [facility] [address] Department [place] [address] * CRP (acute phase) (09/24/2024 7:06 PM STACKER STRAIGHTENER) CRP <3.0 <=10.0 mg/L Blood 09/24/2024 7:06 PM STACKER STRAIGHTENER 09/24/2024 7:06 PM STACKER STRAIGHTENER Parker De La Cruz MD LAB BLOOD ORDERABLES Final Result [facility] [address] Department [place] [address] from Last 3 Months Insurance [employer] [address] [facility] [id number] [place] [address] [facility] COMMERCIAL GENERIC [place] ACCESS BLUE ACC[place] [employer] [facility] Advance Directives For more information, please contact: [phone] * Full Code (Latest Code Status on File) Date Activated Date Inactivated Comments 10/23/2024 8:01 AM 10/23/2024 2:28 PM * Full Code Date Activated Date Inactivated Comments 04/09/2024 10:11 AM 04/09/2024 5:36 PM * Full Code Date Activated Date Inactivated Comments 08/07/2021 8:05 AM 08/07/2021 2:29 PM * Full Code Date Activated Date Inactivated Comments 07/27/2019 7:32 AM 07/27/2019 1:22 PM Care Teams Irrigation Worker Relationship Specialty Start Date End Date Emmanuel Wesley DO PCP - General Internal Medicine 12/11/21
--- OUTSIDE RECORDS SUMMARY | 2024-11-11 19:09 | XMS_ITS | Encounter Summary ---
Author Organization [facility] Address [address] [place] [address] Phone Care Team Providers Care Sewing Machine Bobbin Winder Name Role Phone Emmanuel Wesley DO Primary Care Provider [phone]- [phone] Reason for Visit * Reason Onset Date Comments Med Management (Entyvio Frequency Change) 2023 Encounter Details Date Type Department Care Team (Late st Contact Info) Description 10/03/2024 Telephone [facility] Gastroenterology [address] [facility] Advanced Medicine 12th [place] [address] [place] [address] Eryn Dalton LPN Med Management (Entyvio Frequency Change) Social History Tobacco Use Types Packs/Day Years [...] on file 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 10/03/2024 documented in this encounter Miscellaneous Notes * Telephone Encounter - Eryn Dalton LPN - 10/22/2024 11:20 AM CST Below update received from [facility] team re: Entyvio denial. Good morning, We received fax-pa denial--pa case#[id number] (Codes requested -[id number] 300mg q 4wks, S9379, 81335, & 82954 x 13 visits each code-start date requested 10/03/2024 ). Per denial letter-pa denied due to pt being on another drug(Rinvoq) while being on Entyvio. For expedited appeal request you can call [phone]-details in appeal letter attached. *patient last infusion was on 09/24/2024 with q 8wks infusion frequency-pa for q 8wks infusion frequency is expiring on 10/28/2024. Patient will need pa request/ approval for next infusion with either infusion frequency(q 4wks or q8wks). Thank you, Armando Pat CPhT Authorization / Patient Engineering Assistant PICKER MACHINE OPERATOR * Telephone Encounter - Eryn Dalton LPN - 10/16/2024 1:01 PM CST Below update received from Armando with [facility]: Good afternoon, Just a quick update- Spoke with insurance -pa is still pending / no additional clinicals needed at this time. Hoping to get an answer on pa request before the end of the week. Will keep you posted. Armando Gee PICKER MACHINE OPERATOR * Telephone Encounter - Eryn Dalton LPN - 10/03/2024 2:20 PM CST New [facility] Entyvio order has been placed in [facility] to reflect frequency change to Q4wks. Order is available under 'Procedures' tab. Order has been faxed to [facility] at (their team willobtain new auth). Med list updated. Reminder set for follow up of auth status. -------Fax Transmission Report------- To: Recipient at [phone] Subject: Kunal Peralta - Entyvio Frequency Change [Secure] Result: The transmission was successful. Explanation: All Pages Ok Pages Sent: 3 Connect Time: 1 minutes, 47 seconds Transmit Time: 10/03/2024 14:28 Transfer Rate: 9600 Status Code: 0000 Retry Count: 0 Job Id: [id number] Unique Id: [id number] Fax Line: 34 Fax Public Health Physician: [id number] ----- Message from Nurse Christina Haji sent at 10/03/2024 11:54 AM BEAN PICKER MACHINE OPERATOR ----- Regarding: Entyvio Therapy Plan Request Provider: Dr. Parker De La Cruz Diagnosis: Crohn's Disease Medication/Therapy needed: Entyvio IV infusions Dose: 300 mg Frequency: every 4 weeks If currently established/on therapy, next due date: last infused on 09/24/24 so due next on 10/22/24 Infusion location preference: [facility] On-boarding/labs (date of negative TB & Hep B): TB - 12/2023 Hep B - 05/2024 Lab orders: CBC, CMP & CRP q 12 weeks Drug program: currently on therapy so should already have Additional requests or comments r/t medication/therapy: this is a request to change current Entyviotherapy plan to q4 weeks from q8 weeks d/t low drug level. Results in Epic. Are any therapies being discontinued? Entyvio q 8 weeks Please let me know if you have any questions or concerns. Kind regards, Christina PICKER MACHINE OPERATOR PICKER MACHINE OPERATOR PICKER MACHINE OPERATOR documented in this encounter Plan of Treatment Upcoming Encounters Date Type Department Care Team (Late st Contact Info) Description 11/09/2024 Plan of Care Documentation [place] [address] [address] [place] [address] documented as of this encounter Visit Diagnoses Diagnosis Crohn's disease of both small and large intestine without complication (CMS/HCC) (HCC)- Primary documented in this encounter Discontinued Medications Medication Sig Discontinue Reason Start Date End Da te vedolizumab (ENTYVIO) 300 mg recon solnIndications:Crohn's Disease Infuse 5 mL (300 mg total) into a venous catheter every 8 (eight) weeks Infused by: [facility] ([facility] order in Epic under 'Procedures' tab). 08/03/2023 10/03/2024 documented as of this encounter Orders Procedures Count Last Ordered Date First Orde red Date ONCBCN OUTPATIENT FACILITY ORDERS 1 024 documented in this encounter Care Teams Sewing Machine Bobbin Winder Relationship Specialty Start Date End Date Emmanuel Wesley DO PCP - General Internal Medicine 12/11/21 documented as of this encounter
--- OUTSIDE RECORDS SUMMARY | 2024-11-11 19:09 | XMS_ITS | Encounter Summary ---
Author Organization [facility] Address [address] [place] [address] Phone Care Team Providers Care Pediatric Social Worker Name Role Phone Emmanuel Wesley DO Primary Care Provider [phone]- [phone] Encounter Details Date Type Department Care Team (Late st Contact Info) Description 08/13/2024 9:30 AM CDT Office Visit [facility] Gastroenterology [address] [place] [address] Medical Office Building [address] [place] [address] Izabela Gregory NP [address] [place] [address] Crohn's disease of both small and large intestine with intestinal obstruction (HCC) (Primary Dx); Colostomy present (CMS/HCC) (HCC); Abdominal cramping Social History Tobacco Use Types Packs/Day Years [...] on file 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 Gender Identity Not on file Sexual Orientation Not on file documented as of this encounter Last Filed Vital Signs Vital Sign Reading Time Taken Comments Blood Pressure 144/88 08/13/2024 9:32 AM CDT Pulse 57 08/13/2024 9:32 AM CDT Temperature 37.2 ??C (98.9 ??F) 08/13/2024 9:32 AM CD T Respiratory Rate - - Oxygen Saturation 97% 08/13/2024 9:32 AM CDT Inhaled Oxygen Concentration - - Weight 120.7 kg (266 lb) 08/13/2024 9:32 AM CDT Height 190.5 cm (6' 3 ) 08/13/2024 9:32 AM CDT Body Mass Index 33.25 08/13/2024 9:32 AM CDT documented in this encounter Ordered Prescriptions Prescription Sig Dispense Quantity Refills Last Filled Start Date End Date hyoscyamine (LEVSIN) 0.125 mg SL tablet Take 1 tablet (0.125 mg total) by mouth every 6 (six) hours as needed for cramping or diarrhea Dissolve tab under the tongue 100 tablet 5 08/13/2024 documented in this encounter Progress Notes * Izabela Gregory, LISS - 08/13/2024 9:30 AM CDT Images from the original note were not included. [facility] Address: [address] [place] [address], [address] , [place] [address] Mailing Address: [address] [place] [address], [place] [id number] NAME: Ranjit Peralta : 1980 DOS: 08/13/2024 Primary Care Physician: YaEmmanuel moncada DO Chief complaint: Follow-up for Crohn's disease HPI Mr. Peralta is a gabby 43 y.o. male with history of fairly refractory ileocolonic and perianal Crohn's disease who presents today after medication adjustment. The patient was last seen by Dr. Richardson on 05/08/2024 after the patient's recent colonoscopy in April had shown a tight stricture 10-15 mm past the ileocolonic anastomosis that was dilated to 15 mm. There was another area of stenosis 5 cm further up. This could not be dilated past 12 mm due to the s everity of lesion. There was evidence of segmental inflammation graded as Rutgreets score i2 in thedistal ileum. The colon appeared normal to the stoma. Within the Reza pouch, there was diffuse granular mucosa and a narrowed caliber that limited examination 2 superficial intubation. He was encouraged to start Rinvoq he was encouraged to focus on remission and not prioritize restoring continuity until his disease was better controlled. The patient presents today reporting that he empties his colostomy bag about 2 times a day. He has not had any obstructive symptoms but does monitor what he is eating pretty closely. He will occasionally have some rectal discharge but does not find a substantial. He was very disappointed at the idea of not having continuity restored particularly as he has found the ostomy and particularly his parastomal hernia impacts his body image. He finds that when gas passes it is very embarrassing. He hasintentionally stopped playing basketball as he believes the ostomy is visible. He has not even toldhis children that he has an ostomy. He reports that he has gained weight and finds this makes the ostomy even more visible. He has been able to follow with Kathleen and his is an ostomy nurse so his skin has been well-maintained. He is curious if he could go back to something like Humira as he feels like he had done well on this for awhile but states that typically he is often felt okay for a short period of time on many of his medicines but it never lasts. There was a plan to refer him to hepatology for LFTs. His had him start vitamin-E in his liverenzymes seemed to improve. They are also trying to lose weight through better changing his diet. Patient Active Problem List Diagnosis Date Noted Colostomy present (CMS/HCC) (HCC) 08/14/2024 Healthcare maintenance 12/27/2023 Immunizations: Influenza annual Pneumococcus s/p PCV 13 x 2, needs PCV 20 Zoster recommend HBV immune Covid vaccinated Skin cancer screening: consider referral to dermatology to discuss screening strategy Bone health: DEXA: at diagnosis. Check vitamin D CRC screening: annual for now Encounter for examination of potential donor of organ and tissue 05/09/2023 High risk medications (not anticoagulants) long-term use 10/10/2018 Stricture intestinal ([facility] ([facility]) 10/10/2018 Need for 23-polyvalent pneumococcal polysaccharide vaccine 10/10/2018 Crohn's disease with complication ([facility]) 05/19/2018 Year of diagnosis: 2006. Year symptoms began: 2006. Phenotype: Stricturing (B2) with perianal disease. Distribution: ileocolonic (L3) without upper GI disease (L4). Extraintestinal manifestations: none. Complications: perianal abscess, SBO. Prior surgeries: . EUA x 3with setons (Shanae) 12/24/2022 Laparoscopic ileocolic resection with primary stapled [id number]-[id number] functional end-to-end anastomosis between the mid ileum [...] BID shows very severe proctitis with most ofthe musocal ulcerated, also ICV stricture that was dilated Tried Zeposia with no response. June 2022 started Skyrizi with minimal response Positive JERALD virus so not a candidate for natalizumab fall restarted vedolizumab q 8 since this was what he felt the best on 12/24/2022 Laparoscopic ileocolic resection with primary stapled [id number] functional end-to-end anastomosis between the mid ileum [...] of acute diverticulitis. 04/09/2024 Colonoscopy - Patent [id number] ileo-colonic anastomosis, characterized by ulceration and segmental [...] cryptitis, and basal plasmacytosis 05/08/2024 add upadacitinib Crohn's disease of both small and large intestine (HCC) 04/06/2013 Current Outpatient Medications: dicyclomine (BENTYL) 20 mg tablet, Take 1 tablet (20 mg total) by mouth 4 (four) times a day as needed (cramping), Disp: 120 tablet, Rfl: 3 ergocalciferol (VITAMIN D) 50,000 unit capsule, Take 1 capsule (50,000 Units total) by mouth every 30 (thirty) days, Disp: 3 capsule, Rfl: 3 sodium chloride 0.9 %, flush, (SALINE FLUSH INJ), Infuse 10 mL into a venous catheter as needed (line patency), Disp: , Rfl: sodium, potassium & mag sulfates (SUPREP BOWEL KIT) 17.5-3.13-1.6 gram recon soln, Take first bottle at 6 PM, take the second bottle 6 hours prior to arrival, Disp: 354 mL, Rfl: 0 [START ON 08/21/2024] upadacitinib (Rinvoq) 30 mg tablet extended release 24 hr, Take 30 mg by mouth daily Begin maintenance dosing after completion of 12 week induction., Disp: 90 tablet, Rfl: 0 upadacitinib (Rinvoq) 45 mg tablet extended release 24 hr, Take 1 tablet (45 mg total) by mouth daily X 12 weeks., Disp: 84 tablet, Rfl: 0 vedolizumab (ENTYVIO) 300 mg recon soln, Infuse 5 mL (300 mg total) into a venous catheter every 8 (eight) weeks Infused by: [facility] ([facility] order in [facility] under 'Procedures' tab)., Disp: 5 mL, Rfl: 5 vitamin E 400 unit capsule, Take 1 capsule (400 Units total) by mouth, Disp: , Rfl: hyoscyamine (LEVSIN) 0.125 mg SL tablet, Take 1 tablet (0.125 mg total) by mouth every 6 (six) hours as needed for cramping or diarrhea Dissolve tab under the tongue, Disp: 100 tablet, Rfl: 5 Allergies Allergen Reactions Mercaptopurine Analogues (Thiopurines) Joint pain Severe gout like joint pain that starts within days of taking medicine ROS As outlined in HPI. All other systems negative. Physical Exam Vital Signs BP 144/88 Pulse 57 Temp 37.2 ??C (98.9 ??F) Ht 190.5 cm (6' 3 ) Wt 120.7 kg (266 lb) WfB510% BMI 33.25 kg/m?? Body mass index is 33.25 kg/m??. Wt Readings from Last 10 Encounters: 08/13/24 120.7 kg (266 lb) 05/08/24 119.3 kg (263 lb) 04/09/24 115.7 kg (255 lb) 02/06/24 120.2 kg (265 lb) 12/27/23 121.6 kg (268 lb) 12/12/23 117.9 kg (260 lb) 08/22/23 117.9 kg (260 lb) 06/14/23 113.9 kg (251 lb 3.2 oz) 02/08/23 107.4 kg (236 lb 12.8 oz) 01/06/23 105.1 kg (231 lb 10 oz) [place] body weight: 84.5 kg (186 lb 4.6 oz) Adjusted ideal body weight: 99 kg (218 lb 2.8 oz) General Appearance: awake, alert, oriented, in no acute distress and well developed, well nourished Skin: there are no suspicious lesions or rashes of concern, skin color, texture, turgor are normal;there are no bruises, rashes or lesions. Head/face: NCAT Eyes: No gross abnormalities. Abdomen: Soft, non-tender, normal bowel sounds; left lower quadrant colostomy with slight parastomal hernia Musculoskeletal: negative Neurologic: Alert and oriented x 3, gait normal., reflexes normal and symmetric, strength and sensation grossly normal Psych exam:alert,oriented, in NAD with a full range of affect, normal behavior and no psychotic features Results: I have reviewed imaging, labs, and endoscopy reports. Labs Lab Results Component Value Date WBC 6.2 07/30/2024 HGB 14.0 07/30/2024 HCT 40.8 07/30/2024 MCV 91.3 07/30/2024 LABPLAT 227 07/30/2024 Lab Results Component Value Date SODIUM 141 07/30/2024 POTASSIUM 4.2 07/30/2024 CHLORIDE 105 07/30/2024 CO2 27 07/30/2024 BUNSER 13 07/30/2024 CREATININE 1.10 07/30/2024 GLUCOSE 82 07/30/2024 CALCIUM 9.3 07/30/2024 Lab Results Component Value Date PROT 7.0 07/30/2024 ALBUMIN 4.5 07/30/2024 BILITOT 0.7 07/30/2024 ALKPHOS 39 (L) 07/30/2024 AST 38 07/30/2024 ALT 60 (H) 07/30/2024 CRP Date Value Ref Range Status 07/30/2024 1.2 <=10.0 mg/L Final 07/06/2024 2 0 - 10 mg/L Final 06/01/2024 3.6 <=10.0 mg/L Final 04/06/2024 4.7 <=10.0 mg/L Final 02/06/2024 4.8 <=10.0 mg/L Final 12/12/2023 3.6 <=10.0 mg/L Final Erythrocyte sedimentation rate Date Value Ref Range Status 08/26/2017 9 0 - 12 mm/H Final 06/19/2015 22.0 (H) 0.0 - 10.0 mm/hr Comment: A new method was implemented on 05/23/14. Imaging As described above Endoscopy As described above Assessment and Plan: Problem List Items Addressed This Visit Crohn's disease of both small and large intestine (HCC) - Primary Unfortunately the patient's disease has been incredibly [...] every 8 weeks due to his incomplete responseto Entyvio monotherapy. In the past his trough level of Entyvio was quite low so we will consider checking his trough level at [facility] or a facility that sends out to [facility]. The only combination he has not been on is a combination of a TNF and Entyvio, or cyclosporin. It is possible that at some point he will need a repeat ileocolonic resection but would like to seeif the areas of stricturing seen on his previous scope have responded to his recent medication change. Relevant Orders Case Request GI: COLONOSCOPY Colostomy present (CMS/HCC) (HCC) Functionally the patient is much better since having the colostomy but it is really causing him a lot of distress from a body image and health perception aspect. He may find that weight loss will make the ostomy less obvious but he may need to find a place of acceptance while he is still working toimprove his disease control. He would like to keep the possibility of an ostomy takedown active Parker De La Cruz MD Instruments Sales Representative Answers submitted by the patient for this visit: You and Your Crohn's Disease (Submitted on 08/12/2024) In the past 24 hours, did you schedule your activities around your bowel movements?: does not schedule In the past 24 hours, did you eat less to help control your bowel symptoms?: does not eat less In the past 24 hours, did you avoid foods you usually eat, to help control your bowel symptoms?: avoids In the past 24 hours, did you take njjg-skb-kmbpgze medicines to help control your digestive symptoms?: does not use In the past 24 hours, did you leave home for any reason?: was not able documented in this encounter Miscellaneous Notes * Assessment & Plan Note - Izabela Gregory NP - 08/14/2024 3:56 PM CDTAssociated Problem(s): Abdominal cramping Patient can continue to use Levsin or dicyclomine. Unfortunately Levsin does not appear to be covered by his insurance but looks fairly affordable through [facility]. * Assessment & Plan Note - Izabela Gregory NP - 08/14/2024 3:55 PM CDTAssociated Problem(s): Colostomy present (CMS/HCC) (HCC) Functionally the patient is much better since having the colostomy but it is really causing him a lot of distress from a body image and health perception aspect. He may find that weight loss will make the ostomy less obvious but he may need to find a place of acceptance while he is still working toimprove his disease control. He would like to keep the possibility of an ostomy takedown active * Assessment & Plan Note - Izabela Gregory NP - 08/14/2024 3:52 PM CDTAssociated Problem(s): Crohn's disease of both small and large intestine (HCC) Unfortunately the patient's disease has been incredibly [...] every 8 weeks due to his incomplete responseto Entyvio monotherapy. In the past his trough level of Entyvio was quite low so we will consider checking his trough level at [facility] or a facility that sends out to [facility]. The only combination he has not been on is a combination of a TNF and Entyvio, or cyclosporin. It is possible that at some point he will need a repeat ileocolonic resection but would like to seeif the areas of stricturing seen on his previous scope have responded to his recent medication change. documented in this encounter Plan of Treatment Upcoming Encounters Date Type Department Care Team (Late st Contact Info) Description 11/09/2024 Plan of Care Documentation [address] [address] [address] [place] [id number] documented as of this encounter Visit Diagnoses Diagnosis Crohn's disease of both small and large intestine with intestinal obstruction (HCC)- Primary Colostomy present (CMS/HCC) (HCC) Abdominal cramping Abdominal pain, unspecified site documented in this encounter Discontinued Medications Medication Sig Discontinue Reason Start Date End Da te hyoscyamine (LEVSIN) 0.125 mg SL tabletIndications:Urinar y Incontinence Take 1 tablet (0.125 mg total) by mouth every 6 (six) hours as needed for cramping or diarrhea Dissolve tab under the tongue Reorder 08/07/2024 08/13/2024 documented as of this encounter Historical Medications * This list may reflect changes made after this encounter. vitamin E 400 unit capsule Take 1 capsule (400 Units total) by mouth added in this encounter Orders Case Request Count Last Ordered Date First Orde red Date CASE REQUEST GI 1 08/13/2024 documented in this encounter Care Teams Pediatric Social Worker Relationship Specialty Start Date End Date Emmanuel Wesley DO PCP - General Internal Medicine 12/11/21 documented as of this encounter
--- OUTSIDE RECORDS SUMMARY | 2024-11-11 19:09 | XMS_ITS | Encounter Summary ---
Author Organization [facility] Address [address] [place] [address] Care Team Providers Care Ward Attendant Name Role Phone Emmanuel Wesley DO Primary Care Provider [phone]- [phone] Reason for Visit * Auth/Cert (Routine) Specialty Diagnoses / Procedures Referred By Med bazan Referred To Contact Diagnoses Crohn's disease of both small and large intestine with intestinal obstruction (HCC) Crohn's disease of both small and large intestine with intestinal obstruction (HCC) [K50.812] Procedures FL COLONOSCOPY FLX DX W/COLLJ SPEC WHEN PFRMD FL COLONOSCOPY W/BIOPSY SINGLE/MULTIPLE FL COLSC FLX W/RMVL OF TUMOR POLYP LESION SNARE TQ COLONOSCOPY Referral ID Status Reason Start Date Expiration Date Visits Re quested Visits Authorized [id number] 1 1 Encounter Details Date Type Department Care Team (Late st Contact Info) Description 10/23/2024 8:45 AM WAREHOUSE TRAFFIC SUPERVISOR - 10/23/2024 9:30 AM WAREHOUSE TRAFFIC SUPERVISOR Surgery [facility] Endoscopy [address] [place] [address] Tahir Cardoso MD [address] [facility] [address] [place] [address] COLON STOMA WITH BALLOON DILATION Surgery Details Date/Time Status Location OR Service Patient Class Case Class Case Type Trauma Case? 10/23/2024 8:45 AM Posted [facility] ENDOSCOPY Endo 04 Gastroenterology Outpatient Elective Panel 1 Procedure LRB Anes Op Region Wound Class Comments COLON STOMA WITH BALLOON DILATION N/A Monitor Anesthesia Care N/A ENDO ADD ON OSTOMY BIOPSY N/A Choice Surgeon Surgeon Role Service Panel Tahir Cardoso MD Primary Gastroentero logy 1 documented in this encounter Social History Tobacco [...] on file 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:34 AM WAREHOUSE TRAFFIC SUPERVISOR Gender Identity Not on file Sexual Orientation Not on file documented as of this encounter Last Filed Vital Signs Vital Sign Reading Time Taken Comments Blood Pressure 126/69 10/23/2024 9:25 AM WAREHOUSE TRAFFIC SUPERVISOR Pulse 61 10/23/2024 9:28 AM WAREHOUSE TRAFFIC SUPERVISOR Temperature 36.2 ??C (97.2 ??F) 10/23/2024 9:10 AM CS T Respiratory Rate 16 10/23/2024 9:28 AM WAREHOUSE TRAFFIC SUPERVISOR Oxygen Saturation 97% 10/23/2024 9:28 AM WAREHOUSE TRAFFIC SUPERVISOR Inhaled Oxygen Concentration - - Weight - - Height - - Body Mass Index - - documented in this encounter Discharge Instructions * Discharge Instructions* Dawna Chacon RN - 10/23/2024 9:28 AM WAREHOUSE TRAFFIC SUPERVISOR SCOPE DISCHARGE INSTRUCTIONS You have had a [...] Diet: Type of diet ordered {GI diet instructions:67932695}. IV: If the IV site swells or [...] your physician. Pain/Bleeding: You have had {POST BIOPSY/DILITATION:00455460} performed during the procedure. You may expect a little bleeding from the site. Within the next 48 hours, if the bleeding becomes excessive or is accompanied by abdominal or chest pain, please call your physician immediately. If you are on aspirin or NSAIDS (non-steroidal anti-inflammatory drugs) then you can resume in {Endo ASA/NSAIDS:07653158}. If no follow-up appointment is required, you may receive a letter or phone call from the physician regarding your test/biopsy results within the next two weeks. A note will also be sent to your referring physician. If you have any questions, call your physician's office. HOUSE TRAFFIC SUPERVISOR documented in this encounter Medications at Time [...] catheter every 4 (four) weeks Infused by: [facility] Home Care ([facility] order in [facility] under 'Procedures' tab). 10/03/2024 vitamin E 400 [...] total) by mouth daily as needed 08/29/24 YesProMelissa azar MD sertraline (ZOLOFT) 25 mg tablet Take 1 tablet (25 mg total) by mouth daily 08/29/24 Yes ProviderMelissa MD Wegovy 0.5 mg/0.5 mL auto-injector 09/17/24 Yes ProviderMelissa MD dicyclomine (BENTYL) 20 mg tablet Take [...] a venous catheter as needed (line patency) ProviderMelissa MD sodium, potassium & mag sulfates (SUPREP [...] catheter every 4 (four) weeks Infused by: [facility] Home Care ([facility] order in [facility] under 'Procedures' tab). 10/03/24 Parker De La Cruz MD vitamin E 400 unit capsule Take 1 capsule (400 Units total) by mouth ProviderMelissa MD mesalamine (CANASA) 1,000 mg suppository UNWRAP AND INSERT ONE SUPPOSITORY RECTALLY EVERY NIGHT AT BEDTIME DIRECTED 09/21/22 03/03/23 ProviderMelissa MD Review of Systems A pertinent, focused review [...] planned procedure for the reasons stated above. HOUSE TRAFFIC SUPERVISOR documented in this encounter Procedure Notes * Tahir Cardoso MD - 10/23/2024 8:29 AM CSTAssociated Order(s): COLONOSCOPY ENDOSCOPY LAB Patient Name: Dante Peralta Procedure Date: 10/23/2024 8:29 AM Date of : 1980 Admit Type: Outpatient Age: 43 Gender: Male Attending MD: Tahir Collins M.D. Room: [facility] ENDOSCOPY ROOM 04 Note Status: [...] scope was passed under direct vision. The [id number] was introduced through the sigmoid colostomy and advanced to the terminal ileum. The colonoscopy was performed without difficulty. The patient tolerated the procedure well. The quality of the bowel preparation was adequate. The bowel preparation used was polyethylene glycol (PEG) via split dose instruction. The quality of the bowel preparation was evaluated using the BBPS ([place] Bowel Preparation Scale) with scores of: Right [...] Findings: There was evidence of a prior dohy-qd-mmtj ileo-colonic anastomosis in the ascending colon. This [...] today's procedure, please call my office at [phone] and speak to my nurse. - Follow-up with your referring provider (indicated in the report above) as indicated. - Repeat colonoscopy with dilation pending pathology results and overall clinical and/ or surgical plans. -In the unusual situation that you develop abdominal pain, bleeding or other significant problems in the days following this procedure please call my office [phone]). After hours and evenings please call [phone] and speak to the GI fellow slot machine key person. Please tell the fellow that Dr. Collins [...] 0 Note Initiated On: 10/23/2024 8:29 AM HOUSE TRAFFIC SUPERVISOR documented in this encounter Miscellaneous Notes * Perioperative Nursing Note - Dawna Chacon RN - 10/23/2024 9:29 AM WAREHOUSE TRAFFIC SUPERVISOR discussed findings. Discharge instructions given to patient, (and by phone - directed to flower buncher or picker location).Understanding expressed, questions answered.(No signatures due to CoVid19 protocol) Tolerating po fluids. HOUSE TRAFFIC SUPERVISOR * Perioperative Nursing Note - Dawna Chacon RN - 10/23/2024 9:28 AM WAREHOUSE TRAFFIC SUPERVISOR discussed findings. Discharge instructions given to patient, (and by phone - directed to flower buncher or picker location).Understanding expressed, questions answered.(No signatures due to CoVid19 protocol) Tolerating po fluids. HOUSE TRAFFIC SUPERVISOR * Pre-Procedure Instructions - Clara Townsend RN - 10/16/2024 3:40 PM WAREHOUSE TRAFFIC SUPERVISOR You have an appointment for colonoscopy [facility] 10/23/24. Arrival time 7:45 am for 8:45 am procedure Our address is: [address] [place] [address] [place] [address] Collins's office instruction regarding [...] wish to reschedule please call Dr Collins'gail [phone] Thank you HOUSE TRAFFIC SUPERVISOR documented in this encounter Plan of Treatment Upcoming Encounters Date Type Department Care Team (Late st Contact Info) Description 11/09/2024 Plan of Care Documentation [address] [place] [address] documented as of this encounter Procedures Procedure Name Priority Date/Time Associated Diagnosis Comments SURGICAL PATHOLOGY Routine 10/23/2024 8: 44 AM WAREHOUSE TRAFFIC SUPERVISOR Crohn's disease of both small and large intestine with intestinal obstruction (HCC) ENDO ADD ON OSTOMY BIOPSY 10/23/2024 8:34 AM WAREHOUSE TRAFFIC SUPERVISOR Crohn's disease of both small and large intestine with intestinal obstruction (HCC) COLON STOMA WITH BALLOON DILATION 10/23/2024 8:34 AM WAREHOUSE TRAFFIC SUPERVISOR Crohn's disease of both small and large intestine with intestinal obstruction (HCC) COLONOSCOPY 10/23/2024 8:29 AM WAREHOUSE TRAFFIC SUPERVISOR documented in this encounter Results * Surgical pathology (10/23/2024 8:44 AM WAREHOUSE TRAFFIC SUPERVISOR) Tissue (Ileum, Biopsy) 10/23/2024 8:44 AM WAREHOUSE TRAFFIC SUPERVISOR Tissue (Ileum, Biopsy) 10/23/2024 9:00 AM WAREHOUSE TRAFFIC SUPERVISOR Tissue (Colon, Biopsy) 10/23/2024 9:03 AM WAREHOUSE TRAFFIC SUPERVISOR Tissue (Colon, Biopsy) 10/23/2024 9:04 AM WAREHOUSE TRAFFIC SUPERVISOR Narrative PATHOLOGY [facility] - 10/24/2024 4:57 PM WAREHOUSE TRAFFIC SUPERVISOR EPIC results best viewed via link to PDF [facility] Shaniqua Harding Laboratory of Surgical Pathology [facility] [place] [address] Note to Patients: This report may contain [...] Gender: ??M : ??1980 (Age: 43) Address: ??[address] [place] [address] ??[id number] Hospital #: ??[id number] Taken:10/23/2024 Received:10/23/2024 Reported: 10/24/2024 Patient Type: C EP SAME Client ?[facility] Service: Gastro Location: Physician(s): ??MD Emmanuel Liu DO Martin H. Gregory, M.D. Diagnosis: A. ??Small intestine, terminal ileum, [...] ?- Colonic mucosa with no pathologic abnormality tc/10/24/2024 16:57 By this signature, I attest that [...] interpretation for this case was performed at [facility], Department of Surgical Pathology, [address] [facility] [place], [place] [id number], ??[facility], [place] ??[address] ?? CLIA # [id number] The performance characteristics of some immunohistochemical stains, fluorescence in-situ hybridization tests and immunophenotyping by flow cytometry cited in this report (if any) were determined by the Surgical Pathology and Flow Cytometry Departments at [facility] as part of an ongoing quality assurance supervisor program and in compliance with federally mandated [...] Surgical Pathology and Flow Cytometry Departments of [facility]. ??It has not been cleared or approved by the U. S. Food and Drug Administration. IMAGES AND SCANNED DOCUMENTS, IF INCLUDED, ONLY VIEWABLE IN PDF VERSION OF REPORT Tahir Collins MD LAB PATHOLOGY ORDERAB LES Final Result PATHOLOGY [facility] [phone] * Colonoscopy (10/23/2024 8:29 AM WAREHOUSE TRAFFIC SUPERVISOR) Anatomical Region Laterality Modality Other Narrative Procedure Note Tahir Cardoso MD - 10/23/2024 8:29 AM CST ENDOSCOPY LAB Patient Name: Dante Peralta Procedure Date: 10/23/2024 8:29 AM Date of : 1980 Admit Type: Outpatient Age: 43 Gender: Male Attending MD: Tahir Collins M.D. Room: [facility] ENDOSCOPY ROOM 04 Note Status: [...] The scopewas passed under direct vision. The [id number] introduced through the sigmoid colostomy andadvanced to the terminal ileum. The colonoscopy wasperformed without difficulty. The patient tolerated the procedure well. The quality of the bowelpreparation was adequate. The bowel preparation used was polyethylene glycol (PEG) via split doseinstruction. The quality of the bowel preparation was evaluated using the BBPS ([place] Bowel Preparation Scale)with scores of: Right Colon [...] Findings: There was evidence of a prior hybb-ba-nita ileo-colonic anastomosisin the ascending colon. This was [...] today's procedure, please call my office at [phone] and speak to my nurse. - Follow-up with your referring provider (indicatedin the report above) as indicated. - Repeat colonoscopy with dilation pendingpathology results and overall clinical and/ or surgicalplans. -In the unusual situation that you developabdominal pain, bleeding or other significant problems in the days following this procedure please call my office [phone]). After hours and eveningsplease call [phone] and speak to the GI fellow silvana. [...] Pre-Op, Indications: RefluxIndications:Reflux Given 10/23/2024 8:31 AM WAREHOUSE TRAFFIC SUPERVISOR 20 mg ondansetron (ZOFRAN) injection 4 mg 4 mg, intravenous, Administer over 2 Minutes, Every 6 hours PRN, nausea, vomiting, Starting on Tue10/23/24 at 0800, Pre-Procedure (GI) Given 10/23/2024 8:31 AM WAREHOUSE TRAFFIC SUPERVISOR 4 mg sodium chloride 0.9% flush 0.5-20 mL 0.5-20 mL, intra-catheter, As needed, line care, Starting on Tue10/23/24 at 0800, Pre-Procedure (GI), Flush volume based on line type and size. Flush before and after each use. , Indications: FlushingIndications:Flushing sodium chloride 0.9% infusion 30 mL/hr, intravenous, Continuous, Starting on Tue10/23/24 at 0845, Pre-Procedure (GI) Restarted 10/23/2024 8:49 AM WAREHOUSE TRAFFIC SUPERVISOR Rate/Dose Verify 10/23/2024 8:34 AM WAREHOUSE TRAFFIC SUPERVISOR 30 mL/h r New Bag 10/23/2024 8:31 AM WAREHOUSE TRAFFIC SUPERVISOR 30 mL/hr 30 mL/hr documented in this [...] Recently Administered Medications Times are shown in WAREHOUSE TRAFFIC SUPERVISOR. Scheduled Medication Order 10/21/2024 10/22/2024 10/23/2024 famotidine [...] 10/23/2024 documented in this encounter Care Teams Ward Attendant Relationship Specialty Start Date End Date Emmanuel Wesley DO PCP - General Internal Medicine 12/11/21 documented as of this encounter
--- OUTSIDE RECORDS SUMMARY | 2024-11-11 19:09 | XMS_ITS | Encounter Summary ---
Author Organization [facility] [employer] [facility] Address [address] [place] [address] Phone Care Team Providers Care Labor Employment Associate Name Role Phone Emmanuel Wesley DO Primary Care Provider +1- [phone] Encounter Details Date Type Department Care Team (Late st Contact Info) Description 08/16/2024 Orders Only [facility] Gastroenterology [address] [facility] Advanced Medicine 12th [place] [address] [place] [id number] Christina Reid, SANDRA Crohn's disease of small and large intestines with complication (HCC) (Primary Dx); High risk medications (not anticoagulants) long-term use Social History Tobacco Use Types Packs/Day Years [...] on file 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:34 AM 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 documented in this encounter Plan of Treatment Upcoming Encounters Date Type Department Care Team (Late st Contact Info) Description 11/09/2024 Plan of Care Documentation [facility] [address] [place] [address] Scheduled Orders Name Type Priority Associated Diagnoses Orde r Schedule Vedolizumab with Reflex to Ab Lab Routine Crohn's disease of small and large intestines with complication (HCC) High risk medications (not anticoagulants) long-term use Expected: 08/16/2024, Expires: 08/16/2025 documented as of this encounter Visit Diagnoses Diagnosis Crohn's disease of small and large intestines with complication (HCC)- Primary High risk medications (not anticoagulants) long-term use Encounter for long-term (current) use of other medications documented in this encounter Care Teams Labor Employment Associate Relationship Specialty Start Date End Date Emmanuel Wesley DO PCP - General Internal Medicine 12/11/21 documented as of this encounter
--- OUTSIDE RECORDS SUMMARY | 2024-11-11 19:09 | XMS_ITS | Encounter Summary ---
Author Organization [facility] Address [address] [place] [address] Phone Care Team Providers Care Senior Contracts Manager Name Role Phone Emmanuel Wesley DO Primary Care Provider +1- [phone] Reason for Visit * Reason Onset Date Comments Rinvoq 30 mg 09/24/2024 Encounter Details Date Type Department Care Team (Late st Contact Info) Description 09/24/2024 Documentation [facility] Gastroenterology [address] [facility] Medicine 12th [place] [address] [place] [address] Christina Reid, SANDRA Rinvoq 30 mg Social History Tobacco Use Types Packs/Day Years [...] on file 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:34 AM GEODETIC SURVEY DIRECTOR Gender Identity Not on file Sexual Orientation Not on file documented as of this encounter Progress Notes * Christina Reid RN - 09/24/2024 9:17 AM CST 2 boxes (4 week supply) of Rinvoq 30 mg tablets reserved at [address] clinic for patient picker / packer. [employer] message sent to patient regarding samples. ETIC SURVEY DIRECTOR documented in this encounter Plan of Treatment Upcoming Encounters Date Type Department Care Team (Late st Contact Info) Description 11/09/2024 Plan of Care Documentation [address] [place] [id number] documented as of this encounter Visit Diagnoses Not on filedocumented in this encounter Care Teams Senior Contracts Manager Relationship Specialty Start Date End Date Emmanuel Wesley DO PCP - General Internal Medicine 12/11/21 documented as of this encounter
--- OUTSIDE RECORDS SUMMARY | 2024-11-11 19:09 | XMS_ITS | Encounter Summary ---
Author Organization [facility] Address [address] [place] [address] Care Team Providers Care Leak Hunter Name Role Phone Emmanuel Wesley DO Primary Care Provider +1- [phone] Encounter Details Date Type Department Care Team (Late st Contact Info) Description 10/09/2024 Documentation [facility] [address] [facility] [address] [place] [address] Madhavi Hastings, [facility] Social History Tobacco Use Types Packs/Day Years [...] file 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:34 AM SECURITY MANAGEMENT SPECIALIST Gender Identity Not on file Sexual Orientation Not on file documented as of this encounter Miscellaneous Notes * Research Note - Madhavi Hastings [facility] - 10/09/2024 11:50 AM CST Rinvoq appeal denied and scanned in to media. Released RX to [facility] for fill through [facility]. RITY MANAGEMENT SPECIALIST documented in this encounter Plan of Treatment Upcoming Encounters Date Type Department Care Team (Late st Contact Info) Description 11/09/2024 Plan of Care Documentation [address] [address] [address] [place] [address] documented as of this encounter Visit Diagnoses Not on filedocumented in this encounter Care Teams Leak Hunter Relationship Specialty Start Date End Date Emmanuel Wesley DO PCP - General Internal Medicine 12/11/21 documented as of this encounter
--- OUTSIDE RECORDS SUMMARY | 2024-11-11 19:09 | XMS_ITS | Encounter Summary ---
Author Organization [facility] [employer] [facility] Address [address] [place] [address] Phone Care Team Providers Care Serging Machine Operator Automatic Name Role Phone Emmanuel Wesley DO Primary Care Provider +1- [phone] Reason for Referral * MRI/CAT/PET Scan (Routine) - Closed Specialty Diagnoses / Procedures Referred By Med bazan Referred To Contact Radiology Diagnoses Crohn's disease of both small and large intestine with intestinal obstruction (HCC) Colonic stricture (CMS/HCC) (HCC) Procedures MRI Enterography (abdomen) W WO Contrast Tahir Cardoso MD [address] [facility] [address] [place] [address] Phone: tel: fax: [address] [address] Referral ID Status Reason Start Date Expiration Date Visits Re quested Visits Authorized [id number] Closed 09/13/2024 11/11/2024 1 1 Encounter Details Date Type Department Care Team (Late st Contact Info) Description 08/15/2024 Telephone [facility] [place] [facility] Gastroenterology [address] [place] [address] Medical Office [address] [place] [address] Taryn Bruno RN Social History Tobacco Use Types Packs/Day Years [...] on file 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:34 AM SKID STRAPPER Gender Identity Not on file Sexual Orientation Not on file documented as of this encounter Miscellaneous Notes * Telephone Encounter - Taryn Bruno RN - 08/15/2024 4:47 PM CDT Images from the original note were not included. Pt scheduled preferred day is Tuesday. 24 1345. Arrival 1215. Instructions given to pt via Tahir Weiner MD Gregory, Martin H., MD; Izabela Gregory NP; Christina Reid RN; Taryn Bruno RN Indeed - we will have that information for him soon. Sandra Liu can you see if we can get the MRE CINE on the books? Prior to next colonoscopy if possible. MEERA Previous Messages ----- Message ----- From: Parker De La Cruz MD Sent: 08/14/2024 4:00 PM CDT To: Tahir Collins MD; * Thanks. I think MEERA wanted to get an MRE before rescoping. ----- Message ----- From: Izabela Gregory NP Sent: 08/14/2024 3:57 PM CDT To: Christina Reid RN; * documented in this encounter Plan of Treatment Upcoming Encounters Date Type Department Care Team (Late st Contact Info) Description 11/09/2024 Plan of Care Documentation [address] [address] [address] [place] [address] documented as of this encounter Results * MRI Enterography (abdomen) W WO Contrast (09/28/2024 2:46 PM SKID STRAPPER) Anatomical Region Laterality Modality Body N/A Magnetic Resonan ce 09/28/2024 3:33 PM SKID STRAPPER Impressions 09/28/2024 3:38 PM SKID STRAPPER 1. ??Approximately 2 cm mild stricture in [...] Yamileth Dacosta M.D. Narrative 09/28/2024 3:38 PM SKID STRAPPER EXAMINATION: MAGNETIC RESONANCE IMAGING OF THE ABDOMEN [...] it. Electronically signed by: Yamileth Dacosta M.D. BabatundeBereket Collins MD IMG MRI PROCEDURES Fi nal Result documented in this encounter Visit Diagnoses Diagnosis Colonic stricture (CMS/HCC) (HCC)- Primary Unspecified intestinal obstruction Crohn's disease of both small and large intestine with intestinal obstruction (HCC) Crohn's disease of both small and large intestine with intestinal obstruction (HCC) Colonic stricture (CMS/HCC) (HCC) Unspecified intestinal obstruction documented in this encounter Care Teams Serging Machine Operator Automatic Relationship Specialty Start Date End Date Emmanuel Wesley DO PCP - General Internal Medicine 12/11/21 documented as of this encounter
--- OUTSIDE RECORDS SUMMARY | 2024-11-11 19:09 | XMS_ITS | Encounter Summary ---
Author Organization [facility] Healthcare Address [address] [place] [address] Care Team Providers Care Cad Draftsman Name Role Phone Emmanuel Wesley DO Primary Care Provider [phone]- [phone] Reason for Visit * Medication Authorization (Routine) - Pending Review Specialty Diagnoses / Procedures Referred By Med bazan Referred To Contact Parker De La Cruz MD [address] [address] [place] [address] Phone: tel: fax: Referral ID Status Reason Start Date Expiration Date V isits Requested Visits Authorized [id number] Pending Review 09/24/2024 10/24/2025 1 1 Encounter Details Date Type Department Care Team (Latest Contact Info) Description 09/24/2024 12:00 PM COLLECTIONS CLERK Home Care Visit [facility] [address] [address] [address] [place] [address] Cecilia Bass RN SN INFUSION TREATMENT ROOM Social History Tobacco Use Types Packs/Day Years [...] on file 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:34 AM COLLECTIONS CLERK Gender Identity Not on file Sexual Orientation Not on file documented as of this encounter Last Filed Vital Signs Vital Sign Reading Time Taken Comments Blood Pressure 132/84 09/24/2024 1:25 PM COLLECTIONS CLERK Pulse 55 09/24/2024 1:25 PM COLLECTIONS CLERK Temperature 36.7 ??C (98 ??F) 09/24/2024 1:25 PM COLLECTIONS CLERK Respiratory Rate 18 09/24/2024 1:25 PM COLLECTIONS CLERK Oxygen Saturation 98% 09/24/2024 1:25 PM COLLECTIONS CLERK Inhaled Oxygen Concentration - - Weight 117.9 kg (260 lb) 09/24/2024 12:38 PM COLLECTIONS CLERK Height 190.5 cm (6' 3 ) 09/24/2024 12:38 PM COLLECTIONS CLERK Body Mass Index 32.5 09/24/2024 12:38 PM COLLECTIONS CLERK documented in this encounter Miscellaneous Notes * Home Health Plan for Next Visit - Cecilia Bass RN - 09/24/2024 12:45 PM CST Reason for today's visit Entyvio infusion, PIV insertion, assessment Discuss plan of care with patient Discharge planning: Ongoing until IV therapy is no longer needed Plan for next visit every 8 weeks ECTIONS CLERK * Home Health Visit Narrative - Cecilia Bass RN - 09/24/2024 12:36 PM COLLECTIONS CLERK Patient seen for Entyvio infusion. Denies any illness since last infusion. PIV inserted to L fa x 1attempt. Good blood return. Flushed with NS without any s/s of infiltration noted. Entyvio infusionadministrated without any reaction noted. PIV d/c'ed after infusion complete. No hematoma noted. Band-Aid applied. Left ambulatory per self. No complaints voiced. ECTIONS CLERK documented in this encounter Plan of Treatment Upcoming Encounters Date Type Department Care Team (Late st Contact Info) Description 11/09/2024 Plan of Care Documentation [facility] [address] [address] [address] [place] [address] documented as of this encounter Visit Diagnoses Not on filedocumented in this encounter Administered Medications Active Administered Medications - up to 3 most recent administrations Medication Order MAR Action Action Date Dose Rate Site sodium chloride 0.9 %, flush, (SALINE FLUSH INJ) 10 mL, intravenous, As needed, line patency, Starting on Tue09/24/24 at 1311, Indications: line patencyIndications:line patency Given 09/24/2024 12:45 PM COLLECTIONS CLERK 10 mL Inactive Administered Medications - up to 3 most recent administrations Medication Order MAR Action Action Date Dose Rate Site vedolizumab (ENTYVIO) 300 mg recon soln 300 mg, intravenous, Every 8 weeks, First dose on Tue09/24/24 at 1430, Infused by: [facility] ([facility] order in Epic under 'Procedures' tab)., Indications: Crohn's DiseaseIndications:Crohn's Disease Given 09/24/2024 12:45 PM COLLECTIONS CLERK 300 mg documented in this encounter Home Health Visit - Care Plan Visit Details Visit Type -SN Infusion Christa tment Room Discipline -Mcfp Problems Problem Description Start Date Status Goals Interve ntions Medications Disciplines: Mcfp Management of medications 11/19/2023 Active 1 goal linked to scheduled/documen luisa intervention 1 goal intervention scheduled/documen luisa in this visit Monitor patient's vital signs every home health visit Disciplines: Skilled Disciplines, SN, PT, OT, TANK WAGON DRIVER, GUARD IMMIGRATION Monitor patient's vital signs every visit. 11/19/2023 Active 1 goal linked to scheduled/documen luisa intervention 2 goal interventions scheduled/documen luisa in this visit Safety concerns Disciplines: Skilled Disciplines Alteration in safety 11/19/2023 Active 1 goal linked to scheduled/documen luisa intervention 1 goal intervention scheduled/documen luisa in this visit Specialty Medication - General Disciplines: Mcfp Skilled Nurse to provide safe assessment of patient prior to use of general specialty medication 11/19/2023 Active - 3 problem interventions scheduled/documen luisa in this visit Medications Disciplines: Mcfp Management of IV Medications 11/19/2023 Active - 1 problem intervention scheduled/documen luisa in this visit Need to Collect Specimen Sample Disciplines: Mcfp Need to collect specimen sample 11/19/2023 Active - 3 problem interventions scheduled/documen luisa in this visit Learning/Teachin g Needs - IV Therapy Disciplines: Mcfp Teaching and learning needs for IV therapy 11/19/2023 Active - 4 problem interventions scheduled/documen luisa in this visit Goals Goal Associated Problem Outcome Goal Met? Visit Notes Understand and follow medication therapy Description: Patient will verbalize understanding of purpose, side effects, and medication regimen. Medications No Measure vital signs during every home health visit during episode of care Description: Skilled Nurse to measure vital signs during each visit throughout episode of care. Monitor patient's vital signs every home health visit No Demonstrate use of safety precautions Description: Patient will maintain a safe home environment as evidenced by remaining free from injury and demonstrates use of safety precautions. Safety concerns No Interventions Intervention Associated Problem/Goal Status Variance Visit Notes Instruct on High Risk Medications Description: Instruct patient on high-risk medications,specifical ly Entyvio. Problem:Medications Goal:Understand and follow medication therapy Scheduled Monitor Vital Signs Description: Monitor blood pressure, pulse, oxygen saturation, respirations, and temperature, Problem:Monitor patient's vital signs every home health visit Goal:Measure vital signs during every home health visit during episode of care Completed Vitals signs is within acceptable range Supervising Discipline notification of abnormal vital signs Description: Use standardized clinical guidelines of abnormal vitals signs to report to supervising discipline. (HR 50-110, SBP 90-160, DBP 40-90, O2Sat 88-100%, temporal temp less than 101.5) Problem:Monitor patient's vital signs every home health visit Goal:Measure vital signs during every home health visit during episode of care Completed Use standardized clinical guidelines of abnormal vitals signs to report to supervising discipline. (HR 50-110, SBP 90-160, DBP 40-90, O2Sat 88-100%, temporal temp less than 101.5) Assess safety Description: Assess patient safety Problem:Safety concerns Goal:Demonstrate use of safety precautions Completed Assess patient safety. No concern noted. Learning Teaching Needs Description: Skilled Nurse to monitor vital signs throughout the infusion and upon completion of the infusion. Skilled Nurse to assess patient following infusion. If stable, patient may be discharged home. Problem:Specialty Medication - General Completed Skilled Nurse to monitor vital signs throughout the infusion and upon completion of the infusion. Skilled Nurse to assess patient following infusion. If stable, patient may be discharged home. Pre Medication Assessment Description: Skilled Nurse to complete infusion checklist. Skilled Nurse to monitor vital signs. If patients has a temperature greater than 100 degrees F (37.8 C), notify the pharmacist/physician. Skilled Nurse to obtain IV access for infusion Problem:Specialty Medication - General Completed Skilled Nurse to complete infusion checklist. Skilled Nurse to monitor vital signs. If patients has a temperature greater than 100 degrees F (37.8 C), notify the pharmacist/physician. Skilled Nurse to obtain IV access for infusion Learning Teaching Needs Description: Skilled Nurse to instruct patient on the potential side effects of the medication. Problem:Specialty Medication - General Scheduled Instruct on Medication Management Description: Instruct patient in medication administration, purpose, dosages, preparation, scheduling, side effects, food/drug interactions, drug allergies, and potential complications. Medications instructed on: Entyvio. Problem:Medications Completed Instruct patient in medication administration, purpose, dosages, preparation, scheduling, side effects, food/drug interactions, drug allergies, and potential complications. Medications instructed on: Entyvio. Lab draw Description: Per email order on 08/16/2024 from Christina Reid RN for Dr Parker De La Cruz to Gaurang Cruz RN: Draw Vedolizumab (Entyvio) trough level with infusion scheduled for ~09/24/2024 Red tube stat to MoBap Draw prior to starting Entyvio infusion. Problem:Need to Collect Specimen Sample Completed Draw Vedolizumab (Entyvio) trough level with infusion scheduled for ~09/24/2024, collected Lab draw Description: Copied from pharmacy order: Parker De La Cruz MD/ Sonali Looney, PharmD/ Sonali Cruz RN LABs: CBC w/diff, CMP & CRP every 8 weeks (every infusion). T-SPOT.TB or Qunatiferon Gold TB once a year (due November 2023). Problem:Need to Collect Specimen Sample Completed LABs: CBC w/diff, CMP & CRP every 8 weeks (every infusion). Collected. Lab draw Description: Copied from pharmacy order: Parker De La Cruz MD/ Christina Kramer, RN/ Cameron Looney, PharmD/ Sonali Cruz, RN LABs: Hep B surface antigen, hep B surface antibody, hep B core antibody at next Entyvio infusion ~ 06/01/2024 Problem:Need to Collect Specimen Sample Scheduled Instruct Infection Prevention Description: Instruct patient in strategies to prevent infection: frequent/proper hand-washing techniques, Williams precautions, avoid crowds and persons with known infections, staying current with immunizations, s/s of infection, use of antibiotics and encourage adequate diet and fluid intake. Instruct patient on how to recognize signs and symptoms of infection and when to notify HH nurse and/or physician. Problem:Learning/Teac loraine Needs - IV Therapy Completed Instruct patient in strategies to prevent infection: frequent/proper hand-washing techniques, Williams precautions, avoid crowds and persons with known infections, staying current with immunizations, s/s of infection, use of antibiotics and encourage adequate diet and fluid intake. Instruct patient on how to recognize signs and symptoms of infection and when to notify HH nurse and/or physician. IV Access Care/Maintenance Description: Skilled Nurse will start PIV prior to each infusion and apply transparent sterile dressing to site. When infusion is completed and after observation period, SN will discontinue PIV, verify catheter is intact, apply pressure to site until hemostasis is achieved and apply small gauze dressing secured with tape to site prior to discharge. Type of line: PIV Problem:Learning/Teac loraine Needs - IV Therapy Completed Skilled Nurse will start PIV prior to each infusion and apply transparent sterile dressing to site. When infusion is completed and after observation period, SN will discontinue PIV, verify catheter is intact, apply pressure to site until hemostasis is achieved and apply small gauze dressing secured with tape to site prior to discharge. Type of line: PIV IV Discontinuation Description: Skilled Nurse will remove PIV following infusion per MD order and facility protocol, verifying catheter is intact, applying pressure to site until hemostasis is achieved and apply small gauze dressing secured with tape to site. Problem:Learning/Teac loraine Needs - IV Therapy Completed Skilled Nurse will remove PIV following infusion per MD order and facility protocol, verifying catheter is intact, applying pressure to site until hemostasis is achieved and apply small gauze dressing secured with tape to site. IV Pump Instruction Description: Instruct patient to use call button if IV becomes painful, or swelling/redness occur at IV site, or if pump alarms during infusion. Call button will be kept within reach of patient throughout infusion. Problem:Learning/Teac loraine Needs - IV Therapy Scheduled documented in this encounter Care Teams Cad Draftsman Relationship Specialty Start Date End Date Emmanuel Wesley DO PCP - General Internal Medicine 12/11/21 documented as of this encounter
--- OUTSIDE RECORDS SUMMARY | 2024-11-11 19:09 | XMS_ITS | Encounter Summary ---
Author Organization [facility] Address [address] [place] [address] Phone Care Team Providers Care Retaining Room Cutter Name Role Phone Emmanuel Wesley DO Primary Care Provider [phone]- [phone] Reason for Visit * Reason Onset Date Comments Med Management (Rinvoq Maintenance) 09/24/2024 Bridge Assistance Approved 09/24/2024 Encounter Details Date Type Department Care Team (Late st Contact Info) Description 09/24/[address] 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 FACULTY MEMBER Gender Identity Not on file Sexual Orientation Not on file documented as of this encounter Ordered Prescriptions Prescription Sig Dispense Quantity Refills Last Filled Start Date End Date upadacitinib (Rinvoq) 30 mg tablet extended release 24 hrIndications:Crohn 's disease of small and large intestines with complication (HCC) Take 30 mg by mouth daily 90 tablet 10/16/2024 upadacitinib (Rinvoq) 30 mg tablet extended release 24 hrIndications:Crohn 's Disease Take 30 mg by mouth daily 90 tablet 09/24/2024 10/16/2024 documented in this encounter Miscellaneous Notes * Addendum Note - Eugenio Dalton LPN - 10/16/2024 10:26 AM CSTAddended by: EUGENIO DALTON on: 10/16/2024 10:26 AM Modules accepted: Orders ISTRY FACULTY MEMBER * Telephone Encounter - Eugenio Dalton LPN - 10/16/2024 10:16 AM CST No updates received as of yet from [employer] team re: pt's bridge assistance eligibility for Rinvoq maintenance dosing. Spoke with Karol (insurance actuary) with [employer] to follow up, Karol reports that pt was approved for bridge assistance as of yesterday. She will get a copy of the approval letter faxed to our office at . Rinvoq 30 mg Rx has been e-scribed to [employer] for processing. Pt updated via [employer] portal msg & was provided phone number for pharmacy so he can schedule his next drug shipment. Dr. De La Cruz's nurse has also been updated. ISTRY FACULTY MEMBER * Telephone Encounter - Eugenio Dalton LPN - 10/09/2024 1:05 PM CST Update received from [facility] team that Rinvoq appeal has also been denied. PA and appeal denial letters have been faxed to [employer] program for bridge assistance eligibility review for maintenance dosing at . Reminder set for follow up. -------Fax Transmission Report------- To: Recipient at [phone] Subject: Kunal Peralta - Denial Letters [Secure] Result: The transmission was successful. Explanation: All Pages Ok Pages Sent: 18 Connect Time: 9 minutes, 1 seconds Transmit Time: 10/09/2024 13:21 Transfer Rate: [id number] Status Code: 0000 Retry Count: 1 Job Id: [id number] Unique Id: [id number] Fax Line: 30 Fax Sticker On: [id number] ISTRY FACULTY MEMBER ISTRY FACULTY MEMBER * Telephone Encounter - Eugenio Dalton LPN - 10/01/2024 4:28 PM CST Images from the original note were not included. Madhavi Hastings RPh Fanning, Kimberly, RN; Eugenio Dalton LPN; Christina Reid RN I will start on that. Thanks! Previous Messages ----- Message ----- From: Steffanie Hunter RN Sent: 09/28/2024 1:10 PM CHEMISTRY FACULTY MEMBER To: Christina Reid RN; Eugenio Dalton LPN; * Eugenio Sheehan and Christina are both out of the office today. I think that they would like to appeal. I saw this note charted by Eugenio. [employer] bridge assistance program only approved for bridge assistance for 45 mg induction dosing (although 1 shipment of 30 mg Rinvoq was already sent out to pt previously). Program is now stating that PA/appeal would be required for pt to be eligible for 30 mg Rinvoq. Thanks, Laxmi ----- Message ----- From: Madhavi Hastings RPh Sent: 09/28/2024 12:25 PM CHEMISTRY FACULTY MEMBER To: Tsang Ozzie Patton Would you like me to appeal? ISTRY FACULTY MEMBER * Telephone Encounter - Eugenio Dalton LPN - 10/01/2024 4:27 PM CST Below update received from [facility] team re: Rinvoq maintenance denial. [facility] - Prescription Status Patient Name: Ranjit Peralta : 1980 Drug Name: Rinvoq 30mg Quantity: 30 Day Supply: 30 Insurance Plan: [employer] Insurance Prior Authorization Required: Yes PA Completed via: [employer] (Abdullahi:[id number]) PA Status: DENIED Denial date: 09/28/24 Notes to Office: Deleted due to concurrent use with Entyvio. Denial scanned in to media tab. Completed by: Madhavi Hastings RPh ISTRY FACULTY MEMBER * Telephone Encounter - Eugenio Dalton LPN - 09/24/2024 11:10 AM CST Rinvoq maintenance (30 mg/d) Rx has been e-scribed to [facility] team for PA to be submitted. We were recently informed by [employer] bridge assistance program that pt was only approved for bridge assistance for 45 mg induction dosing (although 1 shipment of 30 mg Rinvoq was already sent out to pt previously). Program is now stating that PA/appeal would be required for pt to be eligible for 30 mg Rinvoq. Reminder set for follow up of PA status. ISTRY FACULTY MEMBER documented in this encounter Plan of Treatment Upcoming Encounters Date Type Department Care Team (Late st Contact Info) Description 11/09/2024 Plan of Care Documentation [address] [address] [address] [place] [address] documented as of this encounter Visit Diagnoses Diagnosis Crohn's disease of small and large intestines with complication (HCC) documented in this encounter Discontinued Medications Medication Sig Discontinue Reason Start Date End Da te upadacitinib (Rinvoq) 30 mg tablet extended release 24 hrIndications:Crohn's Disease Take 30 mg by mouth daily Begin maintenance dosing after completion of 12 week induction. Reorder 08/21/2024 09/24/2024 upadacitinib (Rinvoq) 45 mg tablet extended release 24 hrIndications:Crohn's Disease Take 1 tablet (45 mg total) by mouth daily X 12 weeks. 05/29/2024 10/16/2024 upadacitinib (Rinvoq) 30 mg tablet extended release 24 hrIndications:Crohn's Disease Take 30 mg by mouth daily Reorder 09/24/2024 10/16/2024 documented as of this encounter Care Teams Retaining Room Cutter Relationship Specialty Start Date End Date Emmaneul Wesley DO PCP - General Internal Medicine 12/11/21 documented as of this encounter
--- OUTSIDE RECORDS SUMMARY | 2024-11-11 19:09 | XMS_ITS | Encounter Summary ---
Author Organization [facility] Healthcare Address [address] [place] [address] Care Team Providers Care Setter Helper Name Role Phone Emmanuel Wesley DO Primary Care Provider [phone]- [phone] Encounter Details Date Type Department Care Team (Latest Contact Info) Description 09/24/2024 5:04 PM WHOLESALE PARTS SALESPERSON - 09/24/2024 11:59 PM WHOLESALE PARTS SALESPERSON Hospital Encounter [address] [id number] Discharge Disposition: Discharge to home or [...] on file 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:34 AM WHOLESALE PARTS SALESPERSON Gender Identity Not on file Sexual Orientation [...] hours prior to arrival 354 mL 02/15/2024 upadacitinib (Rinvoq) 30 mg tablet extended release 24 hrIndications:Croh n's Disease Take 30 mg by mouth daily 90 tablet 09/24/2024 upadacitinib (Rinvoq) 45 mg tablet extended release 24 hrIndications:Croh n's Disease Take 1 tablet (45 mg total) by mouth daily X 12 weeks. 84 tablet 05/29/2024 4 vedolizumab (ENTYVIO) 300 mg recon solnIndications:Cr ohn's Disease Infuse 5 mL (300 mg total) into a venous catheter every 8 (eight) weeks Infused by: [facility] Home Care ([facility] order in Epic under 'Procedures' tab). 5 mL 5 08/03/2023 4 documented as of this encounter Discharge Disposition Disposition Code Departure Means Destination Discharge to home or self care documented in this encounter Miscellaneous Notes * Result Encounter Note - Parker De La Cruz MD - 09/24/2024 11:59 PM WHOLESALE PARTS SALESPERSON Vedolizumab low. Increase to q 4. ESALE PARTS SALESPERSON documented in this encounter Plan of Treatment Upcoming Encounters Date Type Department Care Team (Late st Contact Info) Description 11/09/2024 Plan of Care Documentation [facility] - [address] [place] [address] Pending Results Name Type Priority Associated Diagnoses Date /Time Comprehensive metabolic panel (Outreach) Lab Routine 09/24/2024 7:35 PM WHOLESALE [employer]S SALESPERSON Scheduled Orders Name Type Priority Associated Diagnoses Orde r Schedule Comprehensive metabolic panel (Outreach) Lab Routine Once for 1 Occu rrences starting 09/24/2024 until 09/24/2024 documented as of this encounter Procedures Procedure Name Priority Date/Time Associated Diagnosis Comments REFLEX VEDOLIZUMAB AB Routine 09/24/2024 10:15 PM WHOLESALE PARTS SALESPERSON BLOOD MISC TO [place] Routine 09/24/2024 10 :15 PM WHOLESALE PARTS SALESPERSON GLUCOSE, RANDOM (OUTREACH) Routine 09/24/2024 7:06 PM WHOLESALE PARTS SALESPERSON EGFR Routine 09/24/2024 7:06 PM WHOLESALE PARTS SALESPERSON DIFFERENTIAL AUTO Routine 09/24/2024 7:0 6 PM WHOLESALE PARTS SALESPERSON COMPREHENSIVE METABOLIC PANEL WITHOUT GLUCOSE (OUTREACH) Routine 09/24/2024 7:06 PM WHOLESALE PARTS SALESPERSON CBC WITH AUTO DIFFERENTIAL Routine 09/24/2024 7:06 PM WHOLESALE PARTS SALESPERSON CRP (ACUTE PHASE) Routine 09/24/2024 7:0 6 PM WHOLESALE PARTS SALESPERSON documented in this encounter Results * Reflex Vedolizumab Ab (09/24/2024 10:15 PM WHOLESALE PARTS SALESPERSON) [facility] Vedolizumab Ab <9.8 <9.8 ng/mL [place] [facility] Vedolizumab Ab See Footnote [facility] Comment: RESULT: Absence of detectable [id number]-lsdammbuabd. ADDITIONAL INFORMATION This test was developed and its performance characteristics determined by [facility] in a manner consistent with CLIA requirements. This test has not been cleared or approved by the U.S. Food and Drug Administration. Test Performed by: [facility] [place] [address] Beet Worker: Nancy Ybarra Ph.D.; CLIA# [id number] Blood 09/24/2024 10:1 5 PM WHOLESALE PARTS SALESPERSON 09/24/2024 10:15 PM WHOLESALE PARTS SALESPERSON Parker De La Cruz MD LAB BLOOD ORDERABLES Final Result [facility] [address] Department [place] [address] [place] [facility] * (ABNORMAL) BLOOD MISC TO [place] (09/24/2024 10:15 PM WHOLESALE PARTS SALESPERSON) [facility] Test name, chem VEDOL Vedolizumab Quantitation [place] [facility] Misc See Footnote(A) [facility] Comment: Test ? Result ? Flag ??Unit ?RefValue Vedolizumab QN, S ?8.4 ? L ?mcg/mL ?For concentrations of vedolizumab less than or equal to ?15.0 mcg/mL, reflex testing for [id number]-rc-axoshdruvpo ?will be performed. ? REFERENCE VALUE ?Lower limit of quantitation = 2.0 mcg/mL ? ADDITIONAL INFORMATION ?This test was developed and its performance characteristics ?determined by [facility] in a manner consistent with CLIA ?requirements. This test has not been cleared or approved by ?the U.S. Food and Drug Administration. ?Test Performed by: ?[facility] ?[address] [id number] ?Beet Worker: Nancy Ybarra Ph.D.; CLIA# [id number] Blood 09/24/2024 10:1 5 PM WHOLESALE PARTS SALESPERSON 09/24/2024 10:15 PM WHOLESALE PARTS SALESPERSON us Parker De La Cruz MD LAB BLOOD ORDERABLES Final Result [facility] [address] Department [place] [address] [facility] * eGFR (09/24/2024 7:06 PM WHOLESALE PARTS SALESPERSON) Pathologist [facility] eGFR 84 >=60 mL/min/1. 73 m2 Comment: [...] last reviewed 2021. Blood 09/24/2024 7:06 PM WHOLESALE PARTS SALESPERSON 09/24/2024 7:06 PM WHOLESALE PARTS SALESPERSON us Parker De La Cruz MD LAB BLOOD ORDERABLES Final Result [facility] [address] Department of Laboratories [place], [place] [id number] * Differential, auto (09/24/2024 7:06 PM WHOLESALE PARTS SALESPERSON) Pathologist [facility] Neutrophil abs 2.6 1.5 - 6.5 K/cumm Imm gran abs 0.0 0.0 - 0.1 K/cumm [facility] Lymphocyte abs 2.0 0.8 - 3.3 K/cumm [facility] Monocyte abs 0.4 0.2 - 0.8 K/cumm [facility] Eosinophil abs 0.0 0.0 - 0.5 K/cumm [facility] Basophil abs 0.0 0.0 - 0.1 K/cumm [facility] Neutrophil pct 51.5 % [facility] Comment: Interpretive Data Percent cell count reference ranges are not reported, since discordance with absolute values may lead to misinterpretation of CBC data. Current Interpretive Data was last revised on 2018. Imm gran pct 0.6 % [facility] Comment: Interpretive Data Percent cell count reference ranges are not reported, since discordance with absolute values may lead to misinterpretation of CBC data. Current Interpretive Data was last revised on 2018. Lymphocyte pct 39.3 % [facility] Comment: Interpretive Data Percent cell count reference ranges are not reported, since discordance with absolute values may lead to misinterpretation of CBC data. Current Interpretive Data was last revised on 2018. Monocyte pct 7.4 % [facility] Comment: Interpretive Data Percent cell count reference ranges are not reported, since discordance with absolute values may lead to misinterpretation of CBC data. Current Interpretive Data was last revised on 2018. Eosinophil pct 0.6 % [facility] Comment: Interpretive Data Percent cell count reference ranges are not reported, since discordance with absolute values may lead to misinterpretation of CBC data. Current Interpretive Data was last revised on 2018. Basophil pct 0.6 % [facility] Comment: Interpretive Data Percent cell count reference ranges are not reported, since discordance with absolute values may lead to misinterpretation of CBC data. Current Interpretive Data was last revised on 2018. Blood 09/24/2024 7:06 PM WHOLESALE PARTS SALESPERSON 09/24/2024 7:06 PM WHOLESALE PARTS SALESPERSON Parker De La Cruz MD LAB BLOOD ORDERABLES Final Result [facility] [address] Department [place] [address] * CRP (acute phase) (09/24/2024 7:06 PM WHOLESALE PARTS SALESPERSON) [facility] CRP <3.0 <=10.0 mg/L Blood 09/24/2024 7:06 PM WHOLESALE PARTS SALESPERSON 09/24/2024 7:06 PM WHOLESALE PARTS SALESPERSON Parker De La Cruz MD LAB BLOOD ORDERABLES Final Result [facility] [address] [facility] [place] [address] * (ABNORMAL) CBC with auto differential (09/24/2024 7:06 PM WHOLESALE PARTS SALESPERSON) [facility] WBC 5.0 3.8 - 9.9 K/cumm Hgb 13.5 13.0 - 17.5 g/dL [facility] Hct 39.4 38.9 - 50.3 % [facility] Plt 244 150 - 400 K/cumm [facility] MPV 10.0 9.1 - 12.[address] [facility] RBC 4.17(L) 4.30 - 5.80 M/cumm [facility] MCV 94.5 81.3 - 96.[address] [facility] MCH 32.4 27.1 - 33.[address] [facility] MCHC 34.3 32.3 - 35.7 g/dL [facility] RDW CV 13.2 11.1 - 14.9 % [facility] RDW SD 46.0 35.7 - 48.[address] [facility] NRBC abs 0.00 0.00 - 0.01 K/cumm [facility] Blood 09/24/2024 7:06 PM WHOLESALE PARTS SALESPERSON 09/24/2024 7:06 PM WHOLESALE PARTS SALESPERSON Parker De La Cruz MD LAB BLOOD ORDERABLES Final Result [facility] [address] [facility] [place] [address] * Glucose, random (Outreach) (09/24/2024 7:06 PM WHOLESALE PARTS SALESPERSON) Pathologist [facility] Glucose 91 70 - 199 mg/dL Comment: [...] last revised 2022. Blood 09/24/2024 7:06 PM WHOLESALE PARTS SALESPERSON 09/24/2024 7:06 PM WHOLESALE PARTS SALESPERSON Parker De La Cruz MD LAB BLOOD ORDERABLES Final Result [facility] [address] Department [place] [address] * (ABNORMAL) Comprehensive metabolic panel, without glucose (Outreach) (09/24/2024 7:06 PM WHOLESALE PARTS SALESPERSON) Pathologist [facility] Sodium 139 135 - 145 mmol/L Potassium, pl 3.8 3.3 - 4.9 mmol/L [facility] Chloride 105 97 - 110 mmol/L [facility] CO2 20(L) 22 - 32 mmol/L [facility] Anion gap 14 2 - 15 mmol/L [facility] BUN 13 6 - 25 mg/dL [facility] Creatinine 1.11 0.80 - 1.30 mg/dL [facility] Calcium 9.5 8.5 - 10.3 mg/dL [facility] Protein, pl 7.1 6.5 - 8.5 g/dL [facility] Albumin 4.7 3.5 - 5.0 g/dL [facility] Bilirubin, total 0.9 0.1 - 1.2 mg/dL [facility] Alk phos 39(L) 40 - 130 Units/L [facility] AST 48 10 - 50 Units/L [facility] ALT 72(H) 7 - 55 Units/L [facility] Blood 09/24/2024 7:06 PM WHOLESALE PARTS SALESPERSON 09/24/2024 7:06 PM WHOLESALE PARTS SALESPERSON us Parker De La Cruz MD LAB BLOOD ORDERABLES Final Result [facility] [address] Department [place] [address] documented in this encounter Visit Diagnoses Not on filedocumented in this encounter Care Teams Setter Helper Relationship Specialty Start Date End Date Emmanuel Wesley DO PCP - General Internal Medicine 12/11/21 documented as of this encounter
--- OUTSIDE RECORDS SUMMARY | 2024-11-11 19:10 | XMS_ITS | Encounter Summary ---
Author Organization [facility] Home Care Servic es Address [address] [place] [address] Phone Care Team Providers Care Rd Scientist Name Role Phone RafaelEmmanuel diamondJessica MOTT Primary Care Provider +1- [phone] Encounter Details Date Type Department Care Team (Late st Contact Info) Description 05/23/2023 Home Care Visit [address] [place] [address] Franklin Cruz, SANDRA SBAR-RECERTIFICATION Social History Tobacco Use Types Packs/Day Years Used Date Smoking Tobacco: Former Cigarettes Q uit: 2005 Smokeless Tobacco: Never Alcohol Use Standard Drinks/Week Comments Yes 0 (1 standard drink = 0.6 oz pur e alcohol) occasional OASIS D0700: Social Isolation Answer Da te Recorded Frequency of experiencing loneliness or isolatio n Never 05/23/2023 AUDIT-C Answer Date Recorded Q1: How often do you have a drink containing alc ohol? 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
--- OUTSIDE RECORDS SUMMARY | 2024-11-11 19:10 | XMS_ITS | Encounter Summary ---
Author Organization [facility] Address [address] [place] [address] Care Team Providers Care Receiving Dock Checker Name Role Phone Emmanuel Wesley DO Primary Care Provider [phone] Reason for Visit * Auth/Cert (Routine) Specialty Diagnoses / Procedures Referred By Med bazan Referred To Contact Diagnoses Crohn's disease of small and large intestines with complication (HCC) Stricture intestinal (CMS/HCC) (HCC) Crohn's disease of small and large intestines with complication (HCC) [K50.819] Stricture intestinal (CMS/HCC) (HCC) [K56.699] Procedures AK COLONOSCOPY FLX DX W/COLLJ SPEC WHEN PFRMD AK UNLISTED PROCEDURE COLON HC PCMKR [id number] IMPL 2 CHAMBER RR EXTD LNGVT colon dilation per rectum and stoma IBD Referral ID Status Reason Start Date Expiration Date Visits Re quested Visits Authorized [id number] 1 1 Encounter Details Date Type Department Care Team (Latest Contact Info) Description 04/09/2024 10:06 AM CDT - 04/09/2024 1:31 PM CDT Hospital Encounter [facility] Endoscopy [id number] [address] [address] Tahir Cardoso MD [address] [facility] [address] [place] [address] Crohn's disease of small and large intestines with complication (HCC); Stricture intestinal (CMS/HCC) (HCC) Discharge Disposition: Discharge to home or self care Social History Tobacco Use Types Packs/Day Years Used Date Smoking Tobacco: Former Cigarettes Q uit: 2005 Smokeless Tobacco: Never Alcohol Use Standard Drinks/Week Comments Yes 0 (1 standard drink = 0.6 oz pur e alcohol) occasional OASIS D0700: Social Isolation Answer Da te Recorded Frequency of experiencing loneliness or isolatio n Never 11/18/2023 AUDIT-C Answer Date Recorded Q1: How often [...] on file 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 Gender Identity Not on file Sexual Orientation Not on file documented as of this encounter Last Filed Vital Signs Vital Sign Reading Time Taken Comments Blood Pressure 139/75 04/09/2024 12:52 PM CDT Pulse 54 04/09/2024 12:52 PM CDT Temperature 36.2 ??C (97.2 ??F) 04/09/2024 12:25 PM C DT Respiratory Rate 11 04/09/2024 12:52 PM CDT Oxygen Saturation 96% 04/09/2024 12:45 PM CDT Inhaled Oxygen Concentration - - Weight 115.7 kg (255 lb) 04/09/2024 10:10 AM CDT Height 190.5 cm (6' 3 ) 04/09/2024 10:10 AM CDT Body Mass Index 31.87 04/09/2024 10:10 AM CDT documented in this encounter Medications at Time of Discharge dicyclomine (BENTYL) 20 mg tablet Take 1 tablet (20 mg total) by mouth 4 (four) times a day as needed (cramping) 120 tablet 3 06/14/2023 ergocalciferol (VITAMIN D) 50,000 unit capsuleIndications :Low vitamin D level Take 1 capsule (50,000 Units total) by mouth every 30 (thirty) days 3 capsule 3 01/06/2024 sodium chloride 0.9 %, flush, (SALINE FLUSH INJ)Indications:li ne patency Infuse 10 mL into a venous catheter as needed (line patency) hyoscyamine (LEVSIN) 0.125 mg SL tabletIndications: Urinary Incontinence Take 1 tablet (0.125 mg total) by mouth every 6 (six) hours as needed for cramping or diarrhea Dissolve tab under the tongue 100 tablet 5 02/08/2023 4 sodium, potassium & mag sulfates (SUPREP BOWEL KIT) 17.5-3.13-1.6 gram recon solnIndications:Gerardo wel Evacuation Take first bottle at 6 PM, take the second bottle 6 hours prior to arrival 354 mL 02/15/2024 4 vedolizumab (ENTYVIO) 300 mg recon solnIndications:Cr ohn's Disease Infuse 5 mL (300 mg total) into a venous catheter every 8 (eight) weeks Infused by: [facility] ([facility] order in [facility] under 'Procedures' tab). 5 mL 5 08/03/2023 4 documented as of this encounter Discharge Disposition Disposition Code Departure Means Destination Comment s Discharge to home or self care documented in this encounter H&P Notes * Tahir Cardoso MD - 04/09/2024 11:47 AM CDT Pre Endoscopy History and Physical Dante Peralta is a 43 y.o. male who is here for Procedure(s): colon dilation per rectum and stoma IBD The indication(s) for the procedure(s): Evaluation of anastomotic stricture. History of lap ICR anddiverting colostomy in Dec 2022. He is on vedolizumab. He had an obstructive episode with CTE showing anastomotic stricture vs inflammation causing SBO at the [facility]. Past Medical History: Diagnosis Date Anxiety Crohn's disease (CMS/HCC) (HCC) dx 2006 Past Surgical History: Procedure Laterality Date ABCESS DRAINAGE 04/06/201301/17 ANAL FISTULOTOMY 08/22/2013 BOWEL RESECTION 2022 ileocolic with diverting colostomy Social History Tobacco Use Smoking status: Former Current packs/day: 0.00 Types: Cigarettes Quit date: 2004 Years since quittin.4 Smokeless tobacco: Never Substance and Sexual Activity Drug use: No Sexual activity: None Alcohol Use: Not At Risk (04/09/2024) AUDIT-C Frequency of Alcohol Consumption: 2-3 times a week Average Number of Drinks: 1 or 2 Frequency of Binge Drinking: Never Family History Problem Relation Age of Onset [...] Start Date End Date Taking? Authorizing Provider dicyclomine (BENTYL) 20 mg tablet Take 1 tablet (20 mg total) by mouth 4 (four) times a day as needed (cramping) 06/14/23 Yes Paulina Jones MD ergocalciferol (VITAMIN D) 50,000 unit capsule Take 1 capsule (50,000 Units total) by mouth every 30 (thirty) days 01/06/24 Yes Parker De La Cruz MD sodium, potassium & mag sulfates (SUPREP BOWEL KIT) 17.5-3.13-1.6 gram recon soln Take first bottle at 6 PM, take the second bottle 6 hours prior to arrival 02/15/24 Yes Tahir Cardoso MD vedolizumab (ENTYVIO) 300 mg recon soln Infuse 5 mL (300 mg total) into a venous catheter every 8 (eight) weeks Infused by: [facility] ([facility] order in [facility] under 'Procedures' tab). 08/03/23 Yes Parker De La Cruz MD hyoscyamine (LEVSIN) 0.125 mg SL tablet Take 1 tablet (0.125 mg total) by mouth every 6 (six) hoursas needed for cramping or diarrhea Dissolve tab under the tongue 02/08/23 02/08/24 Ever Jones MD sodium chloride 0.9 %, flush, (SALINE FLUSH INJ) Infuse 10 mL into a venous catheter as needed (line patency). Indications: line patency Patient not taking: Reported on 06/14/2023 ProviderMelissa MD mesalamine (CANASA) 1,000 mg suppository UNWRAP AND INSERT ONE SUPPOSITORY RECTALLY EVERY NIGHT AT BEDTIME DIRECTED 09/21/22 03/03/23 ProviderMelissa MD Review of Systems A pertinent, focused review of systems was completed and negative, except as noted above. OBJECTIVE: Vitals: Vitals: 03/29/24 1237 04/09/24 1010 04/09/24 1020 04/09/24 1130 BP: (!) 177/95 150/83 Pulse: 54 (!) 47 Resp: 13 18 Temp: 36.2 ??C (97.2 ??F) TempSrc: Temporal SpO2: 95% 95% Weight: 117.9 kg (260 lb) 115.7 kg (255 lb) Height: 190.5 cm (6' 3 ) 190.5 cm (6' 3 ) Physical Exam: Airway: No significant abnormality. Cardiac: No significant abnormality. Pulmonary: No significant abnormality. Neurological: No significant abnormality. Gastrointestinal: No significant abnormality. ASA Score: per Anesthesia Sedation/Anesthesia Plan: per Anesthesia The risks and complications of the procedure have been explained to the patient. Informed consent was signed. Impression and plan: Will proceed with the planned procedure for the reasons stated above. documented in this encounter Procedure Notes * Tahir Cardoso MD - 04/09/2024 11:45 AM CDTAssociated Order(s): COLONOSCOPY ENDOSCOPY LAB Patient Name: Dante Peralta Procedure Date: 04/09/2024 11:45 AM Date of : 1980 Admit Type: Outpatient Age: 43 Gender: Male Attending MD: Tahir Collins M.D. Room: [facility] ENDOSCOPY ROOM 04 Note Status: Finalized Procedure: Colonoscopy via Stoma with Endoscopy of Reza Pouch Indications: Balloon dilation of stenotic lesion of the terminal ileum and evaluation of disease activity. History of lap ICR and diverting colostomy in Dec 2022. He is on vedolizumab. He had an obstructive episode with CTE showing anastomotic stricture vs inflammation causing SBO at the [facility]. Providers: Tahir Collins M.D. Referring MD: Parker [...] and oxygen saturations were monitored continuously. The colonoscopy was performed without difficulty. The patient tolerated the procedure well. The quality of the bowel preparation was good. The quality of the bowel preparation was evaluated using the BBPS ([place] Bowel Preparation Scale) with scores of: Right [...] liquid). The total BBPS score equals 9. The bowel preparation used was polyethylene glycol (PEG) via split dose instruction. The scope was passed under direct vision. The [id number] was introduced through the anus and advanced to the terminal ileum. Findings: Patient is status-post subtotal colectomy with an end colostomy anastomosis. There was evidence of a prior fkvf-ao-czua ileo-colonic anastomosis in the ascending colon. This was patent and was characterized by ulceration. The anastomosis was traversed. The ileum, 10-15 cm from the ileocolonic anastomosis contained benign-appearing, intrinsic moderately ulcerated stenoses. The first one (distal lesion) measured 1 cm (in length) x 9 mm (inner diameter). A TTS dilator was passed through the scope. Dilation with a 10-11-12 mm and a 12-13.5-15 mm balloon dilator was performed sequentially to 15 mm successfully. This distal stricture was traversed successfully. Upstream to this and located about 5 cm upstream, another stricture was noted that was more severe. Dilation with a 10-11-12 mm TTS balloon dilator was performed to 12 mm successfully, however further dilation could not be done given the severity of the lesion and it could not be traversed. The strictures were biopsied. Segmental inflammation, graded as Rutgeerts Score i2 (more than five aphthous lesions with normal intervening mucosa or skip areas of larger lesions or lesions confined to the ileocolonic anastomosis) and characterized by shallow ulcerations was found in the distal ileum. Biopsies were taken with a cold forceps for histology. The colon (entire examined portion) appeared normal. Biopsies were taken with a cold forceps for histology. There was evidence of a patent end colostomy in the sigmoid colon. This was characterized by healthy appearing mucosa. A diffuse area of granular mucosa was found in the Reza pouch with narrowed caliber of the rectal vault, limiting examination to superficial intubation. Biopsies were taken with a cold forceps for histology. Impression: - Patent gorv-au-ejai ileo-colonic anastomosis, characterized by ulceration and segmental [...] and granularity in the Reza pouch. Biopsied. Recommendation: - Observe clinical course status post today's endoscopic therapy - Resume previous diet and present medications. - Follow-up pathology result from mucosal biopsies. We will discuss therapeutic plans with Dr. De La Cruz once results finalized. - Pending that above, would consider obtaining an MRE CINE in 6 months and repeating ileocolonoscopy for further dilation and re-assess activity. - Return to referring physician as indicated. - In the unusual situation that you develop abdominal pain, bleeding or other significant problems in the days following this procedure please call my office [phone]). After hours and evenings please call [phone] and speak to the GI fellow floor tiling professional. Please tell the fellow that Dr. Collins [...] if you go to the emergency room. Attending Participation: I personally performed the entire procedure. Electronically signed by Thair Collins MD Tahir Collins M.D. 04/09/2024 12:37:07 PM Number of Addenda: 0 Note Initiated On: 04/09/2024 11:45 AM documented in this encounter Miscellaneous Notes * Perioperative Nursing Note - Symone Rivas RN - 04/09/2024 12:[address] Collins Spoke with patient and re: findings. Discharge instructions given and understandingverbalized. documented in this encounter Plan of Treatment Upcoming Encounters Date Type Department Care Team (Late st Contact Info) Description 11/09/2024 Plan of Care Documentation [address] [place] [address] [address] [place] [id number] documented as of this encounter Procedures Procedure Name Priority Date/Time Associated Diagnosis Comments SURGICAL PATHOLOGY Routine 04/09/2024 12 :08 PM CDT Crohn's disease of small and large intestines with complication (HCC) Stricture intestinal (CMS/HCC) (HCC) COLONOSCOPY 04/09/2024 11:45 AM CDT POUCHOSCOPY BIOPSY 04/09/2024 11 :37 AM CDT Crohn's disease of small and large intestines with complication (HCC) Stricture intestinal (CMS/HCC) (HCC) OSTOMY BIOPSY 04/09/2024 11:37 AM CDT Crohn's disease of small and large intestines with complication (HCC) Stricture intestinal (CMS/HCC) (HCC) ENDO ADD ON OSTOMY BALLOON DILATION 04/09/2024 11:37 AM CDT Crohn's disease of small and large intestines with complication (HCC) Stricture intestinal (CMS/HCC) (HCC) documented in this encounter Results * Surgical pathology (04/09/2024 12:08 PM CDT) Tissue (Ileum, Biopsy) 04/09/2024 12:08 PM CDT Tissue (Ileum, Biopsy) 04/09/2024 12:11 PM CDT Tissue (Colon, Biopsy) 04/09/2024 12:13 PM CDT Tissue (Colon, Biopsy) 04/09/2024 12:13 PM CDT Tissue (Colon, Biopsy) 04/09/2024 12:15 PM CDT Narrative PATHOLOGY [facility] - 04/10/2024 11:11 AM CDT EPIC results best viewed via link to PDF [facility] Shaniqua Harding Laboratory of Surgical Pathology [address], [place] [address] Note to Patients: This report may contain [...] Gender: ??M : ??1980 (Age: 43) Address: ??[address] [place] [id number] Hospital #: ??[id number] Taken:04/09/2024 Received:04/09/2024 Reported: 04/10/2024 Patient Type: BWC EP SAME Client ?[facility] Service: Gastro Location: Physician(s): ??MD Emmanuel Liu, DO Diagnosis: A. ??Small bowel, ileal stricture, biopsy ? - Small intestinal mucosa with acute ileitis and erosion ?? B. ??Small bowel, ileum, biopsy ? - Normal small intestinal mucosa ?? C. ??Large bowel, right colon, biopsy ? - Normal colonic mucosa ?? D. ??Large bowel, left colon, biopsy ? - Normal colonic mucosa ? E. ??Rectum, biopsy ? - Colonic mucosa with acute cryptitis, and basal plasmacytosis kxb/04/10/2024 11:11 By this signature, I attest that the above diagnosis is based upon my personal examination of the slides(and/or other material indicated in the diagnosis). Lolly Lazaro MD Report Electronically Reviewed and Signed Out By ??Lolly Lazaro MD 04/10/2024 11:11:23 Microscopic Description and Comment: The history of Crohn's disease is noted. Negative for dysplasia and viral cytopathic effect. The findings in the rectum could be secondary to diversion colitis. Clinical correlation is recommended. History: The patient is a 43-year-old man with Crohn's disease of small and large intestine with complication with stricture. ??Operative procedure: ??Colonoscopy. Specimen(s) Received: A: Illeal stricture B: Ileum C: Right colon biopsy D: Left colon biopsy E: Rectum biopsy Gross Description: Received in five formalin jars labeled with the patient's identifiers. A. ??Labeled ileal stricture are multiple irregular tissue fragment(s) (measuring 1.3 x 0.3 x 0.1 cm in aggregate. ??Saint eosin). ?? Labeled A1. Jar 0. B. ??Labeled ileum are multiple irregular tissue fragment(s) (measuring 1.2 x 0.3 x 0.1 cm in aggregate. ??Saint eosin). ?? Labeled B1. Jar 0. C. ??Labeled right colon biopsy are multiple irregular tissue fragment(s) (measuring 1.6 x 0.3 x 0.1 cm in aggregate. ??Stained with eosin). ?? Labeled C1. Jar 0. D. ??Labeled left colon biopsy are multiple irregular tissue fragment(s) (measuring 1.0 x 0.3 x 0.1 cm in aggregate. ??Saint eosin). ?? Labeled D1. Jar 0. E. ??Labeled rectum biopsy is a single irregular tissue fragment(s) (measuring 0.5 x 0.3 x 0.1 cm. ??Stained with eosin). ?? Labeled E1. Jar 0. ?? [facility]/04/09/2024 13:52 PA(s): STONEY Walker, CT ([facility])CM By this signature, I attest that the above diagnosis is based upon my personal examination of the slides(and/or other material). Addenda/Procedures Microscopic slide review and interpretation for this case was performed at [facility], Department of Surgical Pathology, [address] [facility] [place], [place] [id number], ??[place], [place] ??[address] ?? CLIA # [id number] The performance characteristics of some immunohistochemical stains, fluorescence in-situ hybridization tests and immunophenotyping by flow cytometry cited in this report (if any) were determined by the Surgical Pathology and Flow Cytometry Departments at [facility] as part of an ongoing director supplier quality program and in compliance with federally mandated [...] Surgical Pathology and Flow Cytometry Departments of [facility]. ??It has not been cleared or approved by the U. S. Food and Drug Administration. IMAGES AND SCANNED DOCUMENTS, IF INCLUDED, ONLY VIEWABLE IN PDF VERSION OF REPORT Tahir Collins MD LAB PATHOLOGY ORDERAB LES Final Result PATHOLOGY [facility] [phone] * Colonoscopy (04/09/2024 11:45 AM CDT) Anatomical Region Laterality Modality Other Narrative Procedure Note Tahir Cardoso MD - 04/09/2024 11:45 AM CDT ENDOSCOPY LAB Patient Name: Dante Peralta Procedure Date: 04/09/2024 11:45 AM Date of : 1980 Admit Type: Outpatient Age: 43 Gender: Male Attending MD: Tahir Collins M.D. Room: [facility] ENDOSCOPY ROOM 04 Note Status: Finalized Procedure: Colonoscopy via Stoma with Endoscopy of HartmannPouch Indications: Balloon dilation of stenotic lesion of the terminal ileum and evaluation of disease activity. Historyof lap ICR and diverting colostomy in Dec 2022. He kathie vedolizumab. He had an obstructive episode with CTE showing anastomotic stricture vs inflammationcausing SBO at the [facility]. Providers: Tahir Collins M.D. Referring MD: Parker [...] and oxygen saturations were monitored continuously. The colonoscopy was performed without difficulty. The patient tolerated the procedure well. The qualityof the bowel preparation was good. The quality of the bowel preparation was evaluated using the BBPS([place] Bowel Preparation Scale) with scores of: RightColon = 3 (entire mucosa seen well with no residualstaining, small fragments of stool or opaque liquid),Transverse Colon = 3 (entire mucosa seen well with no residual staining, small fragments of stool or opaqueliquid) and Left Colon = 3 (entire mucosa seen well with no residual staining, small fragments of stool oropaque liquid). The total BBPS score equals 9. The bowel preparation used was polyethylene glycol (PEG) via split dose instruction. The scope was passed under direct vision. The [id number] wasintroduced through the anus and advanced to the terminalileum. Findings: Patient is status-post subtotal colectomy with an end colostomy anastomosis. There was evidence of a prior yawa-zk-iraf ileo-colonic anastomosisin the ascending colon. This was patent and was characterized by ulceration. The anastomosis was traversed. The ileum, 10-15 cm from the ileocolonic anastomosis contained benign-appearing, intrinsic moderately ulcerated stenoses. The firstone (distal lesion) measured 1 cm (in length) x 9 mm (inner diameter). ATTS dilator was passed through the scope. Dilation with a 10-11-12 mm yasmine 12-13.5-15 mm balloon dilator was performed sequentially to 15 mm successfully. This distal stricture was traversed successfully.Upstream to this and located about 5 cm upstream, another stricture was noted that was more severe. Dilation with a 10-11-12 mm TTS balloon dilator was performed to 12 mm successfully, however further dilation couldnot be done given the severity of the lesion and it could not betraversed. The strictures were biopsied. Segmental inflammation, graded as Rutgeerts Score i2 (more than five aphthous lesions with normal intervening mucosa or skip areas oflarger lesions or lesions confined to the ileocolonic anastomosis) and characterized by shallow ulcerations was found in the distal ileum. Biopsies were taken with a cold forceps for histology. The colon (entire examined portion) appeared normal. Biopsies weretaken with a cold forceps for histology. There was evidence of a patent end colostomy in the sigmoid colon.This was characterized by healthy appearing mucosa. A diffuse area of granular mucosa was found in the Reza pouchwith narrowed caliber of the rectal vault, limiting examination to superficial intubation. Biopsies were taken with a cold forceps for histology. Impression: - Patent itbl-md-rbdk ileo-colonic anastomosis, characterized by ulceration and segmentalulcerations in the adjacent nisha-terminal ileum consistent with Rutgeerts Score i2. - Multifocal ulcerated fibrostenosis withulceration consistent with Crohn's ileitis located from 10-15cm from the ileocolonic anastomosis. The distal lesion was dilated to 15 mm and traversed, however a more proximal lesion (dilated to 12 mm) was more severeand could not be traversed on this encounter. Biopsies were taken. - The entire examined colon is otherwise normalwith a patent end colostomy. Right and left colon biopsies taken. - Narrow caliber lumen and granularity in theHartmann pouch. Biopsied. Recommendation: - Observe clinical course status post today's endoscopic therapy - Resume previous diet and present medications. - Follow-up pathology result from mucosal biopsies.We will discuss therapeutic plans with Dr. Trujillo results finalized. - Pending that above, would consider obtaining anMRE CINE in 6 months and repeating ileocolonoscopy for further dilation and re-assess activity. - Return to referring physician as indicated. - In the unusual situation that you developabdominal pain, bleeding or other significant problems in the days following this procedure please call my office [phone]). After hours and eveningsplease call [phone] and speak to the GI fellow silvana. [...] you if you go to theemergency room. Attending Participation: I personally performed the entire procedure. Electronically signed by Tahir Collins MD Tahir Collins M.D. 04/09/2024 12:37:07 PM Number of Addenda: 0 Note Initiated On: 04/09/2024 11:45 AM Tahir Collins MD ENDOSCOPY PROCEDURES Final Result documented in this encounter Visit Diagnoses Diagnosis Crohn's disease of small and large intestines with complication (HCC) Stricture intestinal (CMS/HCC) (HCC) Unspecified intestinal obstruction Crohn's disease with complication (HCC) documented in this encounter Admitting Diagnoses Diagnosis Crohn's disease with complication (HCC) Stricture intestinal (CMS/HCC) (HCC) Unspecified intestinal obstruction documented in this encounter Administered Medications Inactive Administered Medications - up to 3 most recent administrations Medication Order MAR Action Action Date Dose Rate Site famotidine (PEPCID) injection 20 mg 20 mg, intravenous, Administer over 2 Minutes, Once, On Tue04/09/24 at 1045, For 1 dose, Pre-Op Given 04/09/2024 10:27 AM CDT 20 mg ondansetron (ZOFRAN) injection 4 mg 4 mg, intravenous, Administer over 2 Minutes, Once, On Tue04/09/24 at 1045, For 1 dose, Pre-Op Given 04/09/2024 10:27 AM CDT 4 mg ondansetron (ZOFRAN) injection 4 mg 4 mg, intravenous, Administer over 2 Minutes, Every 6 hours PRN, nausea, vomiting, Starting on Tue04/09/24 at 1011, Pre-Procedure (GI) sodium chloride 0.9% flush 0.5-20 mL 0.5-20 mL, intra-catheter, As needed, line care, Starting on Tue04/09/24 at 1011, Pre-Procedure (GI), Flush volume based on line type and size. Flush before and after each use. , Indications: FlushingIndications:Flushing sodium chloride 0.9% infusion 30 mL/hr, intravenous, Continuous, Starting on Tue04/09/24 at 1045, Pre-Procedure (GI) Restarted 04/09/2024 12:00 PM CDT Rate/Dose Verify 04/09/2024 11:37 AM CDT 30 mL/ hr New Bag 04/09/2024 10:27 AM CDT 30 mL/hr 30 mL/hr documented in this encounter Active and Recently Administered Medications Times are shown in CDT. Scheduled Medication Order 04/07/2024 04/08/2024 04/09/2024 famotidine (PEPCID) injection 20 mg (COMPLETED) 20 mg, intravenous, Administer over 2 Minutes, Once, On Tue04/09/24 at 1045, For 1 dose, Pre-Op 1027 (Given - Provid er: Basilia Wray RN) ondansetron (ZOFRAN) injection 4 mg (COMPLETED) 4 mg, intravenous, Administer over 2 Minutes, Once, On Tue04/09/24 at 1045, For 1 dose, Pre-Op 1027 (Given - Provid er: Basilia Wary RN) Continuous Medication Order 04/07/2024 04/08/2024 04/09/2024 sodium chloride 0.9% infusion 30 mL/hr, intravenous, Continuous, Starting on Tue04/09/24 at 1045, Pre-Procedure (GI) 1027 (New Bag - Prov ider: Basilia Wray RN)1137 (Rate/Dose Verify - Provider: Jacques Pike CRNA)1159 (Paused - Provider: Jacques Pike CRNA - Comment: Switch to gravity)1200 (Restarted - Provider: Jacques Pike CRNA)1221 (Stopped - Provider: Jacques Pike CRNA)1247 (Stopped - Provider: Symone Rivas RN) PRN Medication Order 04/07/2024 04/08/2024 04/09/2024 ondansetron (ZOFRAN) injection 4 mg 4 mg, intravenous, Administer over 2 Minutes, Every 6 hours PRN, nausea, vomiting, Starting on Tue04/09/24 at 1011, Pre-Procedure (GI) simethicone (MYLICON) 66.7 mg/mL oral drops (CANCELED) As needed, Starting on Tue04/09/24 at 1152, Intra-Op 1152 (Given - Provid er: Tahir Collins MD) sodium chloride 0.9% flush 0.5-20 mL 0.5-20 mL, intra-catheter, As needed, line care, Starting on Tue04/09/24 at 1011, Pre-Procedure (GI), Flush volume based on line type and size. Flush before and after each use. , Indications: Flushing documented in this encounter Orders Medications Ordered That Steven ht Not Have Been Administered Count Last Ordered Date First Ordered Date ondansetron (ZOFRAN) injection 4 mg 1 04/09 simethicone (MYLICON) 66.7 m g/mL oral drops 1 04/09/2024 sodium chloride 0.9% flush 0.5-20 mL 1 01/2024 Discharge Count Last Ordered Date First Orde red Date DISCHARGE PATIENT 1 04/09/2024 documented in this encounter Care Teams Receiving Dock Checker Relationship Specialty Start Date End Date Emmanuel Wesley DO PCP - General Internal Medicine 12/11/21 documented as of this encounter
--- OUTSIDE RECORDS SUMMARY | 2024-11-11 19:10 | XMS_ITS | Encounter Summary ---
Author Organization [facility] Address [address] [place] [address] Phone Care Team Providers Care Masticator Name Role Phone Emmanuel Wesley DO Primary Care Provider [phone]- [phone] Reason for Visit * Reason Onset Date Comments Med Management (Rinvoq Induction/Maintenance) Denied 05/09/2024 Bridge Assistance 05/09/2024 Encounter Details Date Type Department Care Team (Late st Contact Info) Description 05/09/2024 Telephone [facility] [address] [facility] 12th [place] [address] [place] [address] Eugenio Dalton LPN Med Management (Rinvoq Induction/Maintenance); Denied; Bridge Assistance Social History Tobacco Use Types Packs/Day Years [...] on file 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 90 tablet 08/21/2024 4 upadacitinib (Rinvoq) 45 mg tablet extended release 24 hrIndications:Croh n's Disease Take 1 tablet (45 mg total) by mouth daily X 12 weeks. 84 tablet 05/29/2024 4 upadacitinib (Rinvoq) 30 mg tablet extended release 24 hrIndications:Croh n's disease of small and large intestines with complication (HCC) Take 30 mg by mouth daily Begin maintenance dosing after completion of 12 week induction. 90 tablet 08/01/2024 4 upadacitinib (Rinvoq) 45 mg tablet extended release 24 hrIndications:Croh n's disease of small and large intestines with complication (HCC) Take 1 tablet (45 mg total) by mouth daily X 12 weeks. 84 tablet 05/09/2024 4 documented in this encounter Miscellaneous Notes * Addendum Note - Eugenio Dalton LPN - 05/29/2024 9:34 AM CDTAddended by: EUGENIO DALTON on: 05/29/2024 09:34 AM Modules accepted: Orders * Telephone Encounter - Eugenio Dalton LPN - 05/29/2024 9:29 AM CDT Update received via [employer] portal requesting prescription for Rinvoq induction and maintenancedosing for bridge assistance. Both prescriptions have been e-scribed to [facility] for processing. It seems that pt has been approved for bridge assistance. Pt has been updated and was informed that he should be hearing from [facility] to arrange drug shipment within the next few days. Pharmacy phone number was also provided to patient should he need to follow up with their team. I have asked him to update our office once he does receive his first shipment/when he will be starting the Rinvoq. Below update received from [employer]: Dear Complete Pro User, Your patient has qualified to receive a bridging resource to cover the cost of their prescribed medication for 24 months or until there is insurance coverage, whichever is sooner. The medication will be shipped to your patient by [facility]. Prior to each shipment, [facility] will contact your patient to verify any allergies and to update current medications. Delivery set up may only be done with the republican receiving the medication. Your patientmay contact Driver Hire Support at [facility] ([phone]) Option 2 prior to their outreach to schedule the order sooner. Before each subsequent shipment, [email or web address] Access Support will verify your patient's continued eligibility. Please notify them of any changes to their insurance coverage. Once coverage has been established, you and your patient will be notified so that you can meet their insurance plan requirements. If you have any questions or to notify Driver Hire Support of insurance changes, please call an Commissioned Defence Force Officer at [facility] ([phone]) Option 2. * Telephone Encounter - Eugenio Dalton LPN - 05/28/2024 1:56 PM CDT Have not heard back from Rashard Riggs as of yet, call placed to [employer] to follow up and discuss pt's eligibility for bridge assistance. Spoke with corporate representative Shyla who confirmed that they have received appeal denial letter that was faxed in, Shyla informed me that pt's account has not yet been updated by their team. Account will need to be updated to reflect PA/appeal denial and will then need to be reviewed by their leadership team. I was informed that there is generally a 24 hour turnaround time once reviewed by the leadership team and that our office will receive a determination via fax and pt will receive a phone call from their team once a decision has been made. If ptis approved for bridge assistance, [facility] would then be in touch with patient re: drug shipment. Pt has been updated via [employer] portal [facility]. Total Call Time: 15 minutes * Telephone Encounter - Eugenio Dalton LPN - 05/25/2024 3:16 PM CDT Contacted Rashard Riggs ([employer] [facility] reimbursement & vein access technician) to follow up on Rinvoq bridge assistance eligibility for this patient. Waiting to hear back from Rashard. * Telephone Encounter - Eugenio Dalton LPN - 05/24/2024 9:32 AM CDT Rinvoq appeal letter has been faxed to [facility] [employer] at for review to determine whether pt may be eligible for bridge assistance. -------Fax Transmission Report------- To: Recipient at [id number] Subject: [place] - Rinvoq Appeal Denial [Secure] Result: The transmission was successful. Explanation: All Pages Ok Pages Sent: 13 Connect Time: 8 minutes, 1 seconds Transmit Time: 05/24/2024 09:34 Transfer Rate: [id number] Status Code: 0000 Retry Count: 0 Job Id: [id number] Unique Id: [id number] Fax Line: 24 Fax Associate Professor Of Mathematics: [id number] * Telephone Encounter - Eugenio Dalton LPN - 05/16/2024 9:03 AM CDT Rinvoq Benefits Investigation: - Rinvoq is covered with plan approval. - Mandated Specialty Pharmacy: [facility]. - Eligible for Rinvoq Complete savings card. - Benefits information not released. Rinvoq Complete Savings Card: Card Number: [id number] Issued: 05/09/2024 Rx GRP: [id number] Rx BIN: [id number] Rx PCN: OHCP Rx Card Information: [employer] [place] P: Rx BIN: [id number] Rx GRP: 1001 Rx PCN: ILDR * Telephone Encounter - Eugenio Dalton LPN - 05/15/2024 3:51 PM CDT Images from the original note were not included. Below update received from AFCP team re: Rinvoq PA denial. Dr. De La Cruz's nurse, Christina has asked pharmacy team to proceed with appeal. Jacobo Solares [facility] Pharmacist Specialty: Pharmacy Research Note Signed Encounter Date: 05/15/2024 Signed Rinvoq PA denied. Per the plan will not be approved if used in combination with another immunomodulatory drug. Would you like pharmacy to initiate appeal? * Telephone Encounter - Eugenio Dalton LPN - 05/09/2024 12:24 PM CDT Rinvoq induction and maintenance prescriptions have been e-scribed to [facility] for PA to be submitted, their team will also verify whether they are able to fill/dispense pt's Rinvoq. Pt has been entered into [employer] for Rinvoq Complete enrollment to be processed and benefits investigation has been requested. ID: [id number]. Once enrollment has been processed, pt willbe enrolled into co-pay savings program. Pt has been updated via MyChart portal message, Rinvoq Complete link has been provided to patient where addt'l program information can be found, Rinvoq Crohn's patient brochure has also been provided. Pt informed that our office will provide an update once determination has been made. Reminder has been set for follow up of auth/benefits investigation. ----- Message from Nurse Christina Saldana sent at 05/08/2024 4:12 PM CDT ----- Regarding: RE: Rinvoq Therapy Plan Request Good afternoon, We would like to attempt for coverage of both. We have had some luck with getting Rinvoq approved with biologics. If you think patient would qualify for Rinvoq PAP (while insurance covers Entyvio), were okay with that. If we cannot obtain coverage for both, Dr. De La Cruz would like to discontinue Entyvio and proceed with just Rinvoq. Kind regards, Christina ----- Message ----- From: Eugenio Dalton LPN Sent: 05/08/2024 3:31 PM CDT To: Christina Kramer RN Subject: RE: Rinvoq Therapy Plan Request Lauri Vasquez, My guess would be that the plan will more than likely deny the Rinvoq request since the most recentoffice note indicates that he is going to resume Entyvio. Is Dr. De La Cruz wanting us to submit anyway and see what happens/whether the plan will allow it? We haven't had luck with the Rinvoq combination with other therapies so I suspect it would be the same with Entyvio. With the PA/appeal denial (if we were to proceed with this if denied) we could then explore PAP for the Rinvoq if patient thinks he may meet the income requirements - it sounds like [email or web address] is making several program changes this month so they are changing the poverty level from 500%to 400% so it's not going to be as generous as it has been in the past, unfortunately. Thank you, Eugenio ----- Message ----- From: Christina Kramer RN Sent: 05/08/2024 9:22 AM CDT To: Christina Kramer RN; Eugenio Dalton LPN Subject: Rinvoq Therapy Plan Request Provider: Dr. Parker De La Cruz Medication/Therapy needed: Rinvoq Dose/ Frequency: Rinvoq 45 mg PO Daily x 12 weeks, then 30 mg daily On-boarding/labs (date of negative TB): 12/2023 On-boarding/labs (date of negative Hep B): 05/2022; Ordered to be collected at next infusion apt. Copay assistance: send to patient? Yes Additional requests and/or comments r/t medication/therapy: Ideally Dr. De La Cruz would like to continue Entyvio with Rinvoq. However, if insurance will not allow combination therapy, discontinue Entyvio and start Rinvoq. Please let me know if you have any questions or concerns. Kind regards, Christina documented in this encounter Plan of Treatment Upcoming Encounters Date Type Department Care Team (Late st Contact Info) Description 11/09/2024 Plan of Care Documentation [address] [address] [address] [place] [address] documented as of this encounter Visit Diagnoses Diagnosis Crohn's disease of small and large intestines with complication (HCC)- Primary documented in this encounter Discontinued Medications Medication Sig Discontinue Reason Start Date End Da te upadacitinib (Rinvoq) 45 mg tablet extended release 24 hrIndications:Crohn's disease of small and large intestines with complication (HCC) Take 1 tablet (45 mg total) by mouth daily X 12 weeks. Reorder 05/09/2024 05/29/2024 upadacitinib (Rinvoq) 30 mg tablet extended release 24 hrIndications:Crohn's disease of small and large intestines with complication (HCC) Take 30 mg by mouth daily Begin maintenance dosing after completion of 12 week induction. Reorder 08/01/2024 05/29/2024 documented as of this encounter Care Teams Masticator Relationship Specialty Start Date End Date Emmanuel Wesley DO PCP - General Internal Medicine 12/11/21 documented as of this encounter
--- OUTSIDE RECORDS SUMMARY | 2024-11-11 19:10 | XMS_ITS | Encounter Summary ---
Author Organization [facility] Address [address] [place] [address] Care Team Providers Care Paper Coating Supervisor Name Role Phone Emmanuel Wesley DO Primary Care Provider +1- [phone] Encounter Details Date Type Department Care Team (Latest Contact Info) Description 04/28/2023 5:31 PM CDT - 04/28/2023 11:59 PM [place] [address] Discharge Disposition: Discharge to home or self care Social History Tobacco Use Types Packs/Day Years Used Date Smoking Tobacco: Former Cigarettes Q uit: 2004 Smokeless Tobacco: Never Alcohol Use Standard Drinks/Week Comments Yes 0 (1 standard drink = 0.6 oz pur e alcohol) occasional AUDIT-C Answer Date Recorded Q1: How often do you have a drink containing alc ohol? 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 Gender Identity Not on file Sexual Orientation Not on file documented as of this encounter Medications at Time of Discharge sodium chloride 0.9 %, flush, (SALINE FLUSH INJ)Indications:li ne patency Infuse 10 mL into a venous catheter as needed (line patency) methotrexate 2.5 mg tabletIndications: Inflammatory Bowel Disease Take 10 tablets (25 mg total) by mouth once a week 120 tablet 10/06/2022 3 allopurinoL (ZYLOPRIM) 100 mg tablet 1 tablet DAILY (route: oral) 04/12/2022 4 ALPRAZolam (XANAX) 0.25 mg tabletIndications: Anxiety Take 1 tablet (0.25 mg total) by mouth daily as needed for anxiety. 15 tablet 05/26/2021 4 budesonide 2 mg/actuation foamIndications:Cr ohn's disease of both small and large intestine without complication (CMS/HCC) ([facility]) Insert 1 applicator into the rectum daily 33.4 g 09/17/2022 4 celecoxib (CeleBREX) 100 mg capsule Take 1 capsule (100 mg total) by mouth daily 30 capsule 1 02/08/2023 4 colchicine (COLCRYS) 0.6 mg tabletIndications: prevention of acute gout attack,as needed for gout attack Take 0.6 mg by mouth daily 11/25/2022 reported he has not used recently, and only uses as needed 09/28/2022 4 colchicine (COLCRYS) 0.6 mg tablet 1 tablet DAILY (route: oral) 12/10/2022 4 ergocalciferol (VITAMIN D) 50,000 unit capsuleIndications :Low vitamin D level Take 1 cap PO monthly 12 capsule 02/01/2022 4 ergocalciferol (Vitamin D2) 50,000 unit capsule 1 capsule MONTHLY (route: oral) 06/15/2022 4 folic acid (FOLVITE) 1 mg tabletIndications: Crohn's disease of both small and large intestine without complication (CMS/HCC) ([facility]) Take 1 tablet (1 mg total) by mouth daily 90 tablet 3 12/14/2022 4 folic acid (FOLVITE) 1 mg tablet 1 tablet DAILY (route: oral) 12/14/2022 4 hydrocortisone (CORTENEMA) 100 mg/60 mL enemaIndications:U lcerative Colitis Insert 1 enema (100 mg total) into the rectum nightly as needed for irritation 1800 mL 11/04/2022 4 hydrocortisone (PROCTOCORT) 10 % (80 mg) rectal foamIndications:Ul cerative Proctitis Insert 1 applicator into the rectum daily Use as directed 30 each 1 11/02/2022 4 hyoscyamine (LEVSIN) 0.125 mg SL tabletIndications: Urinary Incontinence Take 1 tablet (0.125 mg total) by mouth every 6 (six) hours as needed for cramping or diarrhea Dissolve tab under the tongue 100 tablet 5 02/08/2023 4 sulfaSALAzine (AZULFIDINE) 500 mg tablet Take 2 tablets (1,000 mg total) by mouth 4 (four) times a day as needed (joint pain) 240 tablet 5 02/08/2023 4 vedolizumab (ENTYVIO) 300 mg recon solnIndications:Cr ohn's disease of both small and large intestine without complication (CMS/HCC) (HCC) Infuse 5 mL (300 mg total) into a venous catheter as directed To be infused at weeks 0, 2, 6, and then Q8 weeks (reinduction). Infused by: [facility] ([facility] order in Epic under 'Procedures' tab). 5 mL 11 10/22/2022 3 documented as of this encounter Discharge Disposition Disposition Code Departure Means Destination Discharge to home or self care documented in this encounter Plan of Treatment Upcoming Encounters Date Type Department Care Team (Late st Contact Info) Description 11/09/2024 Plan of Care Documentation [facility] [address] [address] [address] [place] [address] documented as of this encounter Procedures Procedure Name Priority Date/Time Associated Diagnosis Comments DIFFERENTIAL AUTO Routine 04/28/2023 1:3 0 PM CDT CBC WITH AUTO DIFFERENTIAL Routine 04/28/2023 1:30 PM CDT HEPATIC FUNCTION PANEL Routine 04/28/2023 1:30 PM CDT documented in this encounter Results * Differential, auto (04/28/2023 1:30 PM CDT) Neutrophil abs 3.4 1.7 - 6.5 K/cumm [facility] Imm gran abs 0.0 0.0 - 0.1 K/cumm [facility] Lymphocyte abs 1.5 0.8 - 3.3 K/cumm [facility] Monocyte abs 0.5 0.2 - 0.8 K/cumm [facility] Eosinophil abs 0.1 0.0 - 0.5 K/cumm [facility] Basophil abs 0.0 0.0 - 0.1 K/cumm [facility] Neutrophil pct 62.0 % [facility] Comment: Interpretive Data Percent cell count reference ranges are not reported, since discordance with absolute values may lead to misinterpretation of CBC data. Current Interpretive Data was last revised on 2018. Imm gran pct 0.2 % [facility] Comment: Interpretive Data Percent cell count reference ranges are not reported, since discordance with absolute values may lead to misinterpretation of CBC data. Current Interpretive Data was last revised on 2018. Lymphocyte pct 27.2 % [facility] Comment: Interpretive Data Percent cell count reference ranges are not reported, since discordance with absolute values may lead to misinterpretation of CBC data. Current Interpretive Data was last revised on 2018. Monocyte pct 8.3 % [facility] Comment: Interpretive Data Percent cell count reference ranges are not reported, since discordance with absolute values may lead to misinterpretation of CBC data. Current Interpretive Data was last revised on 2018. Eosinophil pct 1.7 % [facility] Comment: Interpretive Data Percent cell count reference ranges are not reported, since discordance with absolute values may lead to misinterpretation of CBC data. Current Interpretive Data was last revised on 2018. Basophil pct 0.6 % [facility] Comment: Interpretive Data Percent cell count reference ranges are not reported, since discordance with absolute values may lead to misinterpretation of CBC data. Current Interpretive Data was last revised on 2018. Blood 04/28/2023 1:30 PM CDT 04/28/2023 5:38 PM CDT us Paulina Jones MD LAB BLOOD ORDERABLE S Final Result [facility] Department [place] [address] * (ABNORMAL) CBC with auto differential (04/28/2023 1:30 PM CDT) [facility] WBC 5.4 3.8 - 9.9 K/cumm [facility] Hgb 13.1 13.0 - 17.5 g/dL [facility] Hct 40.7 38.9 - 50.3 % [facility] Plt 245 150 - 400 K/cumm [facility] MPV 10.9 9.1 - 12.3 fL [facility] RBC 4.69 4.30 - 5.80 M/cumm [facility] MCV 86.8 81.3 - 96.4 fL [facility] MCH 27.9 27.1 - 33.3 pg [facility] MCHC 32.2(L) 32.3 - 35.7 g/dL [facility] RDW CV 14.5 11.1 - 14.9 % [facility] RDW SD 46.0 35.7 - 48.1 fL [facility] NRBC abs 0.00 0.00 - 0.01 K/cumm [facility] Blood 04/28/2023 1:30 PM CDT 04/28/2023 5:38 PM CDT us Paulina Jones MD LAB BLOOD ORDERABLE S Final Result Performing Organization Address [facility] Co de Phone Number [facility] Department [place] [address] * Hepatic function panel (04/28/2023 1:30 PM CDT) [facility] Bilirubin, total 0.7 0.1 - 1.2 mg/dL [facility] Bilirubin, direct <0.2 0.1 - 0.3 mg/dL [facility] Protein, pl 7.7 6.5 - 8.5 g/dL [facility] Albumin 4.8 3.5 - 5.0 g/dL [facility] Alk phos 54 40 - 130 Units/L [facility] ALT 51 7 - 55 Units/L [facility] AST 36 10 - 50 Units/L [facility] Blood 04/28/2023 1:30 PM CDT 04/28/2023 5:38 PM CDT us Paulina Jones MD LAB BLOOD ORDERABLE S Final Result [facility] [place] [address] documented in this encounter Visit Diagnoses Not on filedocumented in this encounter Care Teams Paper Coating Supervisor Relationship Specialty Start Date End Date Emmanuel Wesley DO PCP - General Internal Medicine 12/11/21 documented as of this encounter
--- OUTSIDE RECORDS SUMMARY | 2024-11-11 19:10 | XMS_ITS | Encounter Summary ---
Author Organization [facility] Home Care Serv[facility] es Address [address] [place] [address] Phone Care Team Providers Care Turret Press Operator Name Role Phone Rafaeldara Emmanuel Harriet MOTT Primary Care Provider [phone] Encounter Details Date Type Department Care Team (Late st Contact Info) Description 10/13/2023 Home Care Visit [facility] [address] [place] [address] Tammi Santos RN SN TRIAGE ENCOUNTER Social History Tobacco Use Types Packs/Day Years [...] containing alc ohol? 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 Gender Identity Not on file Sexual Orientation Not on file documented as of this encounter Miscellaneous Notes * Triage Note - Tammi Santos RN - 10/13/2023 1:49 PM CST Reason for call: Schedule Inquiry Track Greaser: Dante Relationship to patient: patient Phone number of handyperson: [phone] Return call time: forwarded at 1:55pm Communication details: DANTE PERALTA [phone] RE: WANTING TO KNOW WHAT TIME MY APPT IS ON WEDNESDAY 10/17 AT [facility], PLEASE CALL Follow-up: email infusion pharmacy and infusion nursing ERTY MAN documented in this encounter Plan of Treatment Upcoming Encounters Date Type Department Care Team (Late st Contact Info) Description 11/09/2024 Plan of Care Documentation [address] [address] [address] [place] [address] documented as of this encounter Visit Diagnoses Not on filedocumented in this encounter Home Health Visit - Care Plan Visit Details Visit Type -SN Triage Encoun ter Discipline -Long-Term Problems Problem Description Start Date Status Goals Interve ntions Specialty Medication - General Disciplines: Long-Term SN to provide safe assessment of patient prior to use of general specialty medication 11/25/2022 Active - 3 problem interventions scheduled/documen luisa in this visit Monitor patient's vital signs every home health visit Disciplines: SN, PT, OT, ENTRY LEVEL RECEPTIONIST, YARN FINISHER, Skilled Disciplines Monitor patient's vital signs every visit. 11/25/2022 Active 1 goal linked to scheduled/documen luisa intervention 1 goal intervention scheduled/documen luisa in this visit Medications Disciplines: Long-Term Management of Medications 05/26/2023 Active - 1 problem intervention scheduled/documen luisa in this visit Learning/Teachin g Needs - IV Therapy Disciplines: Long-Term Teaching and learning needs for IV therapy 05/26/2023 Active - 3 problem interventions scheduled/documen luisa in this visit Medications Disciplines: Long-Term Management of medications 05/26/2023 Active 1 goal linked to scheduled/documen luisa intervention 3 goal interventions scheduled/documen luisa in this visit Safety concerns Disciplines: Skilled Disciplines Alteration in safety 05/26/2023 Active 1 goal linked to scheduled/documen luisa intervention 1 goal intervention scheduled/documen luisa in this visit Goals Goal Associated Problem Outcome Goal Met? Visit Notes Measure vital signs during every home health visit during episode of care Description: Skilled Nurse to measure vital signs during each visit throughout episode of care. Monitor patient's vital signs every home health visit No Understand and follow medication therapy Description: Patient will understand and follow prescribed medication therapy as evidence by having up to date medication list in home & ability to verbalize purpose, schedule, and side effects by the end of the episode of care. Medications No Demonstrate use of safety precautions Description: Patient will maintain a safe home environment as evidenced by remaining free from injury and demonstrates use of safety precautions. Safety concerns No Interventions Intervention Associated Problem/Goal Status Variance Visit Notes Learning Teaching Needs Description: Skilled Nurse to monitor vital signs throughout the infusion and upon completion of the infusion. Skilled Nurse to assess patient following infusion. If stable, patient may be discharged home. Problem:Specialty Medication - General Scheduled Pre Medication Assessment Description: Skilled Nurse to complete infusion checklist. Skilled Nurse to monitor vital signs. If patients has a temperature greater than 100 degrees F (37.8 C), notify the pharmacist/physician. Skilled Nurse to obtain IV access for infusion. Problem:Specialty Medication - General Scheduled Learning Teaching Needs Description: Skilled Nurse to instruct patient on the potential side effects of the medication. Problem:Specialty Medication - General Scheduled Monitor Vital Signs Description: Monitor blood pressure, pulse, oxygen saturation, respirations, and temperature. Problem:Monitor patient's vital signs every home health visit Goal:Measure vital signs during every home health visit during episode of care Scheduled Instruct medications Description: Instruct patient in medication administration, purpose, dosages, preparation, scheduling, side effects, food/drug interactions, drug allergies, and potential complications. Medications instructed on: Entyvio. Problem:Medications Scheduled Instruct Infection Prevention Description: Instruct patient in strategies to prevent infection: frequent/proper hand-washing techniques, [place] precautions, avoid crowds and persons with known infections, staying current with immunizations, s/s of infection, use of antibiotics and encourage adequate diet and fluid intake. Instruct patient on how to recognize signs and symptoms of infection and when to notify HH nurse and/or physician. Problem:Learning/Teaching Needs - IV Therapy Scheduled IV Pump Instruction Description: Instruct patient to use call button if IV becomes painful, or swelling/redness occur at IV site, or if pump alarms during infusion. Call button will be kept within reach of patient throughout infusion. Problem:Learning/Teaching Needs - IV Therapy Scheduled IV Access Care/Maintenance Description: Skilled Nurse will start PIV prior to each infusion and apply transparent sterile dressing to site. When infusion is completed and after observation period, SN will discontinue PIV, verify catheter is intact, apply pressure to site until hemostasis is achieved and apply small gauze dressing secured with tape to site prior to discharge. Type of line: PIV Problem:Learning/Teaching Needs - IV Therapy Scheduled Instruct on drug interactions Description: Perform drug interaction screening and instruct patient on severe drug interactions. Notify MD of any severe interactions Problem:Medications Goal:Understand and follow medication therapy Scheduled Instruct on high risk medications Description: Instruct patient on high-risk/high-alert medications, specifically Entyvio. Problem:Medications Goal:Understand and follow medication therapy Scheduled Monitor effectiveness of drug therapy Description: Monitor effectiveness of patient's drug therapy. Problem:Medications Goal:Understand and follow medication therapy Scheduled Assess safety Description: Assess patient safety. Problem:Safety concerns Goal:Demonstrate use of safety precautions Scheduled documented in this encounter Care Teams Turret Press Operator Relationship Specialty Start Date End Date Emmanuel Wesley DO PCP - General Internal Medicine 12/11/21 documented as of this encounter
--- OUTSIDE RECORDS SUMMARY | 2024-11-11 19:10 | XMS_ITS | Encounter Summary ---
Author Organization [facility] Address [address] [place] [address] Phone Care Team Providers Care Billing Clinician Name Role Phone Emmanuel Wesley DO Primary Care Provider [phone] Reason for Visit * Reason Comments Crohn's Disease * Medication Authorization (Routine) - Closed Specialty Diagnoses / Procedures Referred By Med bazan Referred To Contact Paulina Jones MD [address] [place] [address] Phone: tel: fax: Referral ID Status Reason Start Date Expiration Date Visits Re quested Visits Authorized [id number] Closed 06/24/2023 07/23/2024 1 1 Encounter Details Date Type Department Care Team (Latest Contact Info) Description 06/24/2023 12:30 PM CDT Home Care Visit [facility] [address] [place] [address] Franklin Cruz RN SN INFUSION TREATMENT ROOM Social History [...] on file 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 Gender Identity Not on file Sexual Orientation Not on file documented as of this encounter Last Filed Vital Signs Vital Sign Reading Time Taken Comments Blood Pressure 125/79 06/24/2023 1:50 PM CDT Pulse 55 06/24/2023 1:50 PM CDT Temperature 36.6 ??C (97.8 ??F) 06/24/2023 1:50 PM CD T Respiratory Rate 16 06/24/2023 1:50 PM CDT Oxygen Saturation 98% 06/24/2023 1:50 PM CDT Inhaled Oxygen Concentration - - Weight - - Height 190.5 cm (6' 3 ) 06/24/2023 12:55 PM CDT Body Mass Index - - documented in this encounter Miscellaneous Notes * Home Health Visit Narrative - Franklin Cruz RN - 06/24/2023 12:00 AM CDT Covid screening performed prior to arrival. Assessed patient's vital signs upon arrival for IV infusion of Entyvio. Patient declined ordered pre medications. PIV started without difficulty. Labs collected at time of insertion. No signs/ symptoms of bleeding, hematoma, or infiltration. Infusion completed without incident. Patient's vital signs assessed upon infusion completion. WNL. Patient declined post infusion observation. PIV removed intact without complications. No signs/ symptoms of bleeding or hematoma. Pressure held to site until hemostasis achieved. Gauze and paper tape applied to site. Patient discharged to home with instruction to contact MD if complications occur. Patient verbalizes understanding. documented in this encounter Plan of Treatment Upcoming Encounters Date Type Department Care Team (Late st Contact Info) Description 11/09/2024 Plan of Care Documentation [facility] [address] [address] [address] [place] [address] documented as of this encounter Visit Diagnoses Not on filedocumented in this encounter Administered Medications Active Administered Medications - up to 3 most recent administrations Medication Order MAR Action Action Date Dose Rate Site sodium chloride 0.9 %, flush, (SALINE FLUSH INJ) 10 mL, intravenous, As needed, line patency, Starting on Tue06/24/23 at 1621, Indications: line patencyIndications:line patency Given 06/24/2023 1:20 PM CDT 10 mL Right Forearm Inactive Administered Medications - up to 3 most recent administrations Medication Order MAR Action Action Date Dose Rate Site vedolizumab (ENTYVIO) 300 mg recon soln 300 mg, intravenous, See admin instructions, Starting on Tue06/24/23 at 1622, To be infused at weeks 0, 2, 6, and then Q8 weeks (reinduction). Infused by: [facility] ([facility] order in Epic under 'Procedures' tab). Given 06/24/2023 1:20 PM CDT 300 mg Right Forearm documented in this encounter Home Health Visit - Care Plan Visit Details Visit Type -SN Infusion Christa tment Room Discipline -[facility] Problems Problem Description Start Date Status Goals Interve ntions Specialty Medication - General Disciplines: [facility] SN to provide safe assessment of patient prior to use of general specialty medication 11/25/2022 Active - 3 problem interventions scheduled/documen luisa in this visit Need to Collect Specimen Sample Disciplines: [facility] Need to collect specimen sample 11/25/2022 Active - 1 problem intervention scheduled/documen luisa in this visit Monitor patient's vital signs every home health visit Disciplines: SN, PT, OT, CYCLE SPECIALIST, FILM SPOOLER, Skilled Disciplines Monitor patient's vital signs every visit. 11/25/2022 Active 1 goal linked to scheduled/documen luisa intervention 2 goal interventions scheduled/documen luisa in this visit Medications Disciplines: [facility] Management of Medications 05/26/2023 Active - 1 problem intervention scheduled/documen luisa in this visit Learning/Teachin g Needs - IV Therapy Disciplines: [facility] Teaching and learning needs for IV therapy 05/26/2023 Active - 4 problem interventions scheduled/documen luisa in this visit Medications Disciplines: [facility] Management of medications 05/26/2023 Active 1 goal [...] Problem:Specialty Medication - General Completed Skilled Nurse monitored vital signs throughout the infusion and upon completion of the infusion. Skilled Nurse assessed patient following infusion. Patient was discharged home. Pre Medication Assessment Description: Skilled Nurse to complete infusion checklist. Skilled Nurse to monitor vital signs. If patients has a temperature greater than 100 degrees F (37.8 C), notify the pharmacist/physician. Skilled Nurse to obtain IV access for infusion. Problem:Specialty Medication - General Completed Skilled Nurse completed infusion checklist. Skilled Nurse monitored vital signs. All VS WNL. Skilled Nurse obtained IV access for infusion. Learning Teaching Needs Description: Skilled Nurse to instruct patient on the potential side effects of the medication. Problem:Specialty Medication - General Completed Skilled Nurse instructed patient on the potential side effects of the medication. Patient verbalized understanding. Lab draw Description: Copied from pharmacy order: Gustabo Jones MD/ Sonali Looney, PharmD/ Sonali Cruz, RN LABs: CBC w/diff, HFP every 8 weeks with infusions. Fax results to [phone] & [phone]. Annual LABs: Draw T-SPOT.TB or Quantiferon TB Gold with initial induction. Problem:Need to Collect Specimen Sample Completed Labs collected as ordered. 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 Problem:Monitor patient's vital signs every home health visit Goal:Measure vital signs during every home health visit during episode of care Completed Monitored blood pressure, pulse, oxygen saturation, respirations, and temperature. Supervising Discipline notification of abnormal vital signs Description: Use standardized clinical guidelines of abnormal vitals signs to report to supervising discipline. (HR 50-110, SBP 90-160, DBP 40-90, O2Sat 88-100%, temporal temp less than 101.5) Problem:Monitor patient's vital signs every home health visit Goal:Measure vital signs during every home health visit during episode of care Completed Used standardized clinical guidelines of abnormal vitals signs to report to supervising discipline. (HR 50-110, SBP 90-160, DBP 40-90, O2Sat 88-100%, temporal temp less than 101.5) Instruct medications Description: Instruct patient in medication administration, purpose, dosages, preparation, scheduling, side effects, food/drug interactions, drug allergies, and potential complications. Medications instructed on: Entyvio. Problem:Medications Completed Patient instructed on medication administration, purpose, dosages, preparation, scheduling, side effects, food/drug interactions, and potential complications. Current regimen and compliance reviewed with Patient. Patient verbalizes understanding of treatment regimen and the importance of adherence. Medications taught Entyvio. Instruct Infection Prevention Description: Instruct patient in strategies to prevent infection: frequent/proper hand-washing techniques, [place] precautions, avoid crowds and persons with known infections, staying current with immunizations, s/s of infection, use of antibiotics and encourage adequate diet and fluid intake. Instruct patient on how to recognize signs and symptoms of infection and when to notify HH nurse and/or physician. Problem:Learning/Teac loraine Needs - IV Therapy Completed Patient instructed on frequent/proper hand-washing techniques, [place] precautions, avoid crowds and persons with known infections, staying current with immunizations, s/s of infection, use of antibiotics and encourage adequate diet and fluid intake. Patient verbalizes understanding of strategies to prevent infection. IV Pump Instruction Description: Instruct patient to use call button if IV becomes painful, or swelling/redness occur at IV site, or if pump alarms during infusion. Call button will be kept within reach of patient throughout infusion. Problem:Learning/Teac loraine Needs - IV Therapy Completed Instructed patient to use call button if IV becomes painful, or swelling/redness occur at IV site, or if pump alarms during infusion. Patient verbalized understanding. Call button kept within reach of patient throughout infusion. IV Access Care/Maintenance Description: Skilled Nurse will [...] Needs - IV Therapy Completed Skilled Nurse removed PIV following infusion per MD order and facility protocol, verifying catheter is intact, applying pressure to site until hemostasis is achieved and applied small gauze dressing secured with tape to site. Instruct on drug interactions Description: Perform drug interaction screening and instruct patient on severe drug interactions. Notify MD of any severe interactions Problem:Medications Goal:Understand and follow medication therapy Completed Performed drug interaction screening and instructed patient on drug interactions. Patient verbalized understanding. No severe interactions present. Instruct on high risk medications Description: Instruct patient on high-risk/high-alert medications, specifically Entyvio. Problem:Medications Goal:Understand and follow medication therapy Completed Taught high-risk/high-alert medications (specifically Entyvio) with Patient. Patient verbalized understanding. Monitor effectiveness of drug therapy Description: Monitor effectiveness of patient's drug therapy. Problem:Medications Goal:Understand and follow medication therapy Completed Patient reports no signs/symptoms of CD or any adverse effects of medications. Assess safety Description: Assess patient safety. Problem:Safety concerns Goal:Demonstrate use of safety precautions Completed Patient verbalized no safety concerns. documented in this encounter Care Teams Billing Clinician Relationship Specialty Start Date End Date Emmanuel Wesley DO PCP - General Internal Medicine 12/11/21 documented as of this encounter
--- OUTSIDE RECORDS SUMMARY | 2024-11-11 19:10 | XMS_ITS | Encounter Summary ---
Author Organization [facility] Address [address] [place] [address] Phone Care Team Providers Care Labor Gang Supervisor Name Role Phone Emmanuel Wesley DO Primary Care Provider [phone]- [phone] Reason for Referral * Consultation (Routine) - Authorized Specialty Diagnoses / Procedures Referred By Med bazan Referred To Contact Diabetes and Nutrition Services Diagnoses Crohn's disease of small and large intestines with complication (HCC) Parker De La Cruz MD [address] [place] [address] Phone: tel: fax: [facility] [address] [facility] 12th [place] [address] [place] [address] Phone: tel: fax: Referral ID Status Reason Start Date Expiration Date Visits Requested Visits Authorized [id number] Authorized Specialty Services Required 05/08/2024 06/07/2025 99 99 Question Answer Please select the performing region: [facility] (All Locations) [[id number]] Which [facility] division are you referring from? Gastroenterology (GI) Please select the performing department: [facility] IM GI CAM 12B [[id number]] [id number] Initial / Annual Follow-up MNT # of visits: 10 Comments Referral to Adamaris Clement. Thanks! 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 Gender Identity Not on file Sexual Orientation Not on file documented as of this encounter Last Filed Vital Signs Vital Sign Reading Time Taken Comments Blood Pressure 135/85 05/08/2024 8:13 AM CDT Pulse 71 05/08/2024 8:13 AM CDT Temperature 36.6 ??C (97.8 ??F) 05/08/2024 8:13 AM CD T Respiratory Rate - - Oxygen Saturation 99% 05/08/2024 8:13 AM CDT Inhaled Oxygen Concentration - - Weight 119.3 kg (263 lb) 05/08/2024 8:13 AM CDT Height 190.5 cm (6' 3 ) 05/08/2024 8:13 AM CDT Body Mass Index 32.87 05/08/2024 8:13 AM CDT documented in this encounter Progress Notes * Parker De La Cruz MD - 05/08/2024 8:00 AM CDT Images from the original note were not included. [facility] Clinic Address: [address] [place] [address], [address] [place] [address] Mailing Address: [address], [place] [address], [place] [address] NAME: Ranjit Peralta : 1980 DOS: 05/08/2024 Primary Care Physician: Emmanuel Wesley DO Chief complaint: crohn's HPI Mr. Peralta is a 43 y.o. male with stricturing ileocolonic and perianal Crohn's refractory to multiple therapies now s/p ICR and diverting colostomy. His colonoscopy showed multiple strictures with ulcers. The proximal one could not be dilated. I discussed his case with Dr. Koroma. No obstructive issues in a couple of months. Trying to keep a lower residue diet. Gets more liquid stools if lots of fast food. Son is doing great. No recurrence. Starting kindergarten. His goal is still reversal but understands it is a risk and certainly not ready right now. Patient Active Problem List Diagnosis Date Noted Healthcare maintenance 12/27/2023 Immunizations: Influenza annual Pneumococcus [...] polysaccharide vaccine 10/10/2018 Crohn's disease with complication (HCC) 05/19/2018 Year of diagnosis: 2006. Year symptoms began: 2006. Phenotype: Stricturing (B2) with perianal disease. Distribution: ileocolonic (L3) without upper GI disease (L4). Extraintestinal manifestations: none. Complications: perianal abscess, SBO. Prior surgeries: . EUA x 3with flo (Shanae) 12/24/2022 Laparoscopic ileocolic resection with primary stapled vjwc-os-ozks functional end-to-end anastomosis between the mid ileum and the ascending colon, diverting end-sigmoid colostomy (Shortyrmaradeisi) Prior treatments: asacol, humira, cimzia, infliximab + [...] perianal fistula with abscess EUA x 3with setparadise (Shanae) Started Remicade and 6MP Developed horrible [...] 12/24/2022 Laparoscopic ileocolic resection with primary stapled xykq-rm-zjyz functional end-to-end anastomosis between the mid ileum and the ascending colon, diverting end-sigmoid colostomy (Shortyrmaradeisi) Continued vedolizumab postop 02/07/2024 CTE Mild mucosal [...] of acute diverticulitis. 04/09/2024 Colonoscopy - Patent ulmq-hr-avvw ileo-colonic anastomosis, characterized by ulceration and segmental [...] (thirty) days, Disp: 3 capsule, Rfl: 3 vedolizumab (ENTYVIO) 300 mg recon soln, Infuse 5 mL (300 mg total) into a venous catheter every 8 (eight) weeks Infused by: [facility] Home [facility] ([facility] order [facility] under 'Procedures' tab)., Disp: 5 mL, Rfl: 5 hyoscyamine (LEVSIN) 0.125 mg SL tablet, Take 1 tablet (0.125 mg total) by mouth every 6 (six) hours as needed for cramping or diarrhea Dissolve tab under the tongue, Disp: 100 tablet, Rfl: 5 sodium chloride 0.9 %, flush, (SALINE FLUSH INJ), Infuse 10 mL into a venous catheter as needed (line patency). Indications: line patency (Patient not taking: Reported on 06/14/2023), Disp: , Rfl: sodium, potassium & mag sulfates (SUPREP BOWEL KIT) 17.5-3.13-1.6 gram recon soln, Take first bottle at 6 PM, take the second bottle 6 hours prior to arrival (Patient not taking: Reported on 05/08/2024), Disp: 354 mL, Rfl: 0 Allergies Allergen Reactions Mercaptopurine Analogues (Thiopurines) Joint pain Severe gout like joint pain that starts within days of taking medicine ROS As outlined in HPI. All other systems negative. Physical Exam Vital Signs BP 135/85 Pulse 71 Temp 36.6 ??C (97.8 ??F) Ht 190.5 cm (6' 3 ) Wt 119.3 kg (263 lb) [id number]% BMI 32.87 kg/m?? Body mass index is 32.87 kg/m??. Wt Readings from Last 10 Encounters: 05/08/24 119.3 kg (263 lb) 04/09/24 115.7 kg (255 lb) 02/06/24 120.2 kg (265 lb) 12/27/23 121.6 kg (268 lb) 12/12/23 117.9 kg (260 lb) 08/22/23 117.9 kg (260 lb) 06/14/23 113.9 kg (251 lb 3.2 oz) 02/08/23 107.4 kg (236 lb 12.8 oz) 01/06/23 105.1 kg (231 lb 10 oz) 11/25/22 108 kg (238 lb 1 oz) [place] body weight: 84.5 kg (186 lb 4.6 oz) Adjusted ideal body weight: 98.4 kg (216 lb 15.6 oz) General: well appearing Eyes: no scleral icterus Mouth: moist mucous membranes Neck: supple, no lymphadenopathy CV: regular rate and rhythm, no murmurs Pulm: breathing comfortably on room air, clear to auscultation bilaterally Abd: soft, nontender, nondistended, normal bowel sounds Ext: warm and well perfused, no clubbing or cyanosis Neuro: No focal deficits, alert and awake Skin: Warm, dry, no rashes Psych: Normal mood and affect Results: I have reviewed imaging, labs, and endoscopy reports. Labs Lab Results Component Value Date WBC 5.6 04/06/2024 HGB 14.4 04/06/2024 HCT 44.1 04/06/2024 MCV 92.5 04/06/2024 LABPLAT 228 04/06/2024 Lab Results Component Value Date SODIUM 142 04/06/2024 POTASSIUM 4.2 04/06/2024 CHLORIDE 106 04/06/2024 CO2 25 04/06/2024 BUNSER 12 04/06/2024 CREATININE 0.99 04/06/2024 GLUCOSE 87 04/06/2024 CALCIUM 9.6 04/06/2024 Lab Results Component Value Date PROT 7.5 04/06/2024 ALBUMIN 4.8 04/06/2024 BILITOT 0.8 04/06/2024 ALKPHOS 62 04/06/2024 AST 65 (H) 04/06/2024 ALT 93 (H) 04/06/2024 CRP Date Value Ref Range Status 04/06/2024 4.7 <=10.0 mg/L Final 02/06/2024 4.8 <=10.0 mg/L Final 12/12/2023 3.6 <=10.0 mg/L Final 10/17/2023 3.3 <=10.0 mg/L Final 08/26/2017 33.3 (H) 0.0 - 9.9 mg/L Final Erythrocyte sedimentation rate Date Value Ref Range Status 08/26/2017 9 0 - 12 mm/H Final 06/19/2015 22.0 (H) 0.0 - 10.0 mm/hr Comment: A new method was implemented on 05/23/14. Imaging CTE inflammation in neoTI Endoscopy Colonoscopy showed multiple ulcerated strictures in the ileum Assessment and Plan: Problem List Items Addressed This Visit Crohn's disease with complication (HCC) - Primary He has severe stricturing ileal colonic and [...] benefits and he is agreeable to proceed. Shun not think it is a good idea [...] in the future if and when we gethit his ileum into remission. -add Rinvoq. Continue vedolizumab -Repeat MRE CINE 6 mos after colonoscopy followed by repeat scope with dilation with Dr. Koroma -Get shingrix vaccine Relevant Orders Ambulatory referral to Nutrition Services High risk medications (not anticoagulants) long-term use All immunosuppressants carry a theoretical risk of infection, though vedolizumab appears the safestbecause it is gut specific. We recommend the patient get all available vaccinations, including the pneumococcus series, covid19 and annual influenza. We monitor CBC and HFP q 3 months for cytopenias and hepatotoxicity. All immunosuppressants increase the risk of infection so we recommend the patient get all availablevaccinations, including the pneumococcal vaccine, covid19 and annual influenza vaccine. Upadacitinib increases the risk of thrombotic events so use the minimum effective dose for the shortest amount of time to decrease risk. Upadacitinib may increase the risk for malignancy. The patient should get all age-appropriate cancer screening and in addition should follow with a material handling supervisor for skin cancer screening. We monitor CBC and HFP q 3 months for cytopenias and hepatotoxicity. I told him to get shingrix Healthcare maintenance I told him to get shingrix Parker De La Cruz MD International Accounting Manager documented in this encounter Miscellaneous Notes * Assessment & Plan Note - Parker De La Cruz MD - 05/08/2024 1:44 PM CDT Associated Problem(s): Crohn's disease with complication (HCC) He has severe stricturing ileal colonic and [...] benefits and he is agreeable to proceed. Shun not think it is a good idea [...] in the future if and when we gethit his ileum into remission. -add Rinvoq. Continue vedolizumab -Repeat MRE CINE 6 mos after colonoscopy followed by repeat scope with dilation with Dr. Koroma -Get shingrix vaccine * Assessment & Plan Note - Parker De La Cruz MD - 05/08/2024 10:09 AM CDT Associated Problem(s): Healthcare maintenance I told him to get shingrix * Assessment & Plan Note - Parker De La Cruz MD - 05/08/2024 10:09 AM CDT Associated Problem(s): High risk medications (not anticoagulants) long-term use All immunosuppressants carry a theoretical risk of infection, though vedolizumab appears the safestbecause it is gut specific. We recommend the patient get all available vaccinations, including the pneumococcus series, covid19 and annual influenza. We monitor CBC and HFP q 3 months for cytopenias and hepatotoxicity. All immunosuppressants increase the risk of infection so we recommend the patient get all availablevaccinations, including the pneumococcal vaccine, covid19 and annual influenza vaccine. Upadacitinib increases the risk of thrombotic events so use the minimum effective dose for the shortest amount of time to decrease risk. Upadacitinib may increase the risk for malignancy. The patient should get all age-appropriate cancer screening and in addition should follow with a material handling supervisor for skin cancer screening. We monitor CBC and HFP q 3 months for cytopenias and hepatotoxicity. I told him to get shingrix documented in this encounter Plan of Treatment Upcoming Encounters Date Type Department Care Team (Late st Contact Info) Description 11/09/2024 Plan of Care Documentation [address] [address] [address] [place] [address] Scheduled Referrals Name Type Priority Associated Diagnoses Orde r Schedule Ambulatory referral to Nutrition Services Outpatient Referral Routine Crohn's disease of small and large intestines with complication (HCC) Expected: 05/22/2024 (Approximate), Expires: 05/08/2025 documented as of this encounter Visit Diagnoses Diagnosis Crohn's disease of small and large intestines with complication (HCC)- Primary High risk medications (not anticoagulants) long-term use Encounter for long-term (current) use of other medications Healthcare maintenance documented in this encounter Care Teams Labor Gang Supervisor Relationship Specialty Start Date End Date Emmanuel Wesley DO PCP - General Internal Medicine 12/11/21 documented as of this encounter
--- OUTSIDE RECORDS SUMMARY | 2024-11-11 19:10 | XMS_ITS | Encounter Summary ---
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 Infused by: [facility] Home Care ([facility] order in Epic under 'Procedures' tab). 5 mL 11 10/22/2022 3 documented as of this encounter Discharge Disposition Disposition Code Departure Means Destination Discharge to home or self care documented in this encounter Plan of Treatment Upcoming Encounters Date Type Department Care Team (Late st Contact Info) Description 11/09/2024 Plan of Care Documentation [facility] Home Health - [address] [address] [address] [place] [address] documented as of this encounter Procedures Procedure Name Priority Date/Time Associated Diagnosis Comments DIFFERENTIAL AUTO Routine 06/24/2023 1:0 5 PM CDT CBC WITH AUTO DIFFERENTIAL Routine 06/24/2023 1:05 PM CDT HEPATIC FUNCTION PANEL Routine 06/24/2023 1:05 PM CDT documented in this encounter Results * Differential, auto (06/24/2023 1:05 PM CDT) Neutrophil abs 4.3 1.7 - 6.5 K/cumm [facility] Imm gran abs 0.0 0.0 - 0.1 K/cumm [facility] Lymphocyte abs 1.8 0.8 - 3.3 K/cumm [facility] Monocyte abs 0.5 0.2 - 0.8 K/cumm [facility] Eosinophil abs 0.2 0.0 - 0.5 K/cumm [facility] Basophil abs 0.0 0.0 - 0.1 K/cumm [facility] Neutrophil pct 62.3 % [facility] Comment: Interpretive Data Percent cell count reference ranges are not reported, since discordance with absolute values may lead to misinterpretation of CBC data. Current Interpretive Data was last revised on 2018. Imm gran pct 0.3 % [facility] Comment: Interpretive Data Percent cell count reference ranges are not reported, since discordance with absolute values may lead to misinterpretation of CBC data. Current Interpretive Data was last revised on 2018. Lymphocyte pct 26.9 % [facility] Comment: Interpretive Data Percent cell count reference ranges are not reported, since discordance with absolute values may lead to misinterpretation of CBC data. Current Interpretive Data was last revised on 2018. Monocyte pct 7.6 % [facility] Comment: Interpretive Data Percent cell count reference ranges are not reported, since discordance with absolute values may lead to misinterpretation of CBC data. Current Interpretive Data was last revised on 2018. Eosinophil pct 2.3 % [facility] Comment: Interpretive Data Percent cell count reference ranges are not reported, since discordance with absolute values may lead to misinterpretation of CBC data. Current Interpretive Data was last revised on 2018. Basophil pct 0.6 % [facility] Comment: Interpretive Data Percent cell count reference ranges are not reported, since discordance with absolute values may lead to misinterpretation of CBC data. Current Interpretive Data was last revised on 2018. Blood 06/24/2023 1:05 PM CDT 06/24/2023 5:09 PM CDT Paulina Jones MD LAB BLOOD ORDERABLE S Final Result [facility] [place] [address] * CBC with auto differential (06/24/2023 1:05 PM CDT) WBC 6.8 3.8 - 9.9 K/cumm [facility] Hgb 13.3 13.0 - 17.5 g/dL [facility] Hct 40.2 38.9 - 50.3 % [facility] Plt 232 150 - 400 K/cumm [facility] MPV 10.8 9.1 - 12.3 fL [facility] RBC 4.65 4.30 - 5.80 M/cumm [facility] MCV 86.5 81.3 - 96.4 fL [facility] MCH 28.6 27.1 - 33.3 pg [facility] MCHC 33.1 32.3 - 35.7 g/dL [facility] RDW CV 13.3 11.1 - 14.9 % [facility] RDW SD 41.6 35.7 - 48.1 fL [facility] NRBC abs 0.00 0.00 - 0.01 K/cumm [facility] Blood 06/24/2023 1:05 PM CDT 06/24/2023 5:09 PM CDT Paulina Jones MD LAB BLOOD ORDERABLE S Final Result [facility] [place] [address] * Hepatic function panel (06/24/2023 1:05 PM CDT) Bilirubin, total 0.4 0.1 - 1.2 mg/dL [facility] Bilirubin, direct <0.2 0.1 - 0.3 mg/dL [facility] Protein, pl 7.1 6.5 - 8.5 g/dL [facility] Albumin 4.4 3.5 - 5.0 g/dL [facility] Alk phos 50 40 - 130 Units/L [facility] ALT 45 7 - 55 Units/L [facility] AST 27 10 - 50 Units/L [facility] Blood 06/24/2023 1:05 PM CDT 06/24/2023 5:09 PM CDT us Paulina Jones MD LAB BLOOD ORDERABLE S Final Result [facility] Department [place] [address] documented in this encounter Visit Diagnoses Not on filedocumented in this encounter Care Teams Merchandise Examiner Relationship Specialty Start Date End Date Emmanuel Wesley DO PCP - General Internal Medicine 12/11/21 documented as of this encounter
--- OUTSIDE RECORDS SUMMARY | 2024-11-11 19:10 | XMS_ITS | Encounter Summary ---
Author Organization [facility] Healthcare Address [address] [place] [address] Care Team Providers Care Wooden Box Maker Name Role Phone Emmanuel Wesley DO Primary Care Provider +1- [phone] Reason for Visit * Medication Authorization (Routine) - Pending Review Specialty Diagnoses / Procedures Referred By Med bazan Referred To Contact Parker De La Cruz MD [address] [facility] [address] [place] [address] Phone: tel: fax: Referral ID Status Reason Start Date Expiration Date V isits Requested Visits Authorized [id number] Pending Review 02/03/2024 03/04/2025 1 1 Encounter Details Date Type Department Care Team (Latest Contact Info) Description 12/12/2023 1:00 PM TEACHING YOUNG Home Care Visit [facility] [address] [address] [address] [place] [address] Josephine Bocanegra RN SN INFUSION TREATMENT ROOM Social History [...] often do you have a drink containing alcohol? Never 12/27/2023 Q2: How many drinks containi ng alcohol do you have on a typical day when you are drinking? Patient does not drink Q3: How often do you have si x or more drinks on one occasion? Never 12/27/2023 Personal Safety Answer Date Recorded Getting School Help Needed Not on file 10/17 Sex and Gender Information Value Date Recorded Sex Assigned at Not on file 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:34 AM TEACHING YOUNG Gender Identity Not on file Sexual Orientation Not on file documented as of this encounter Last Filed Vital Signs Vital Sign Reading Time Taken Comments Blood Pressure 138/88 12/12/2023 1:33 PM TEACHING YOUNG Pulse 50 12/12/2023 1:33 PM TEACHING YOUNG Temperature 36.7 ??C (98 ??F) 12/12/2023 1:33 PM TEACHING YOUNG Respiratory Rate 12 12/12/2023 1:33 PM TEACHING YOUNG Oxygen Saturation 96% 12/12/2023 1:33 PM TEACHING YOUNG Inhaled Oxygen Concentration - - Weight 117.9 kg (260 lb) 12/12/2023 12:13 PM TEACHING YOUNG Height 190.5 cm (6' 3 ) 12/12/2023 12:13 PM TEACHING YOUNG Body Mass Index 32.5 12/12/2023 12:13 PM TEACHING YOUNG documented in this encounter Miscellaneous Notes * Home Health Visit Narrative - Josephine Bocanegra RN - 12/12/2023 12:08 PM CST Patient COVID screen performed prior to arrival. Assessed patient upon presentation for: IV Entyvioinfusion q8w and labs (CBC'd, CMP, CRP, TB Quantiferon) All pre-infusion assessments and vital signs WNL. #22 PIV started without difficulty. Patient tolerated well. No signs/symptoms of bleeding, hematoma, infiltration or extravasation throughout infusion or upon discontinuation. Patient's vital signs assessed upon arrival, throughout infusion, and upon infusion completion. AllWNL. Infusion completed without incident. PIV removed intact wihout any complications after infusion completion. No signs/symptoms of bleeding, hematoma, infiltration or extravasation. Pressure held to site until hemostasis achieved. Gauze and tape applied to site. Patient's questions answered. Confirmed next infusion dates as scheduled. Education provided and instructions given to contact Home Health, MD or EMS if complications occur. Patient verbalized understanding. Patient discharged to home, indepedently ambulatory per baseline and in stable condition. documented in this encounter Plan of Treatment Upcoming Encounters Date Type Department Care Team (Late st Contact Info) Description 11/09/2024 Plan of Care Documentation [facility] - [address] [place] [address] documented as of this encounter Visit Diagnoses Not on filedocumented in this encounter Administered Medications Active Administered Medications - up to 3 most recent administrations Medication Order MAR Action Action Date Dose Rate Site sodium chloride 0.9 %, flush, (SALINE FLUSH INJ) 10 mL, intravenous, As needed, line patency, Starting on Tue02/03/24 at 2037, Indications: line patencyIndications:line patency Given 12/12/2023 1:45 PM TEACHING YOUNG 40 mL Inactive Administered Medications - up to 3 most recent administrations Medication Order MAR Action Action Date Dose Rate Site vedolizumab (ENTYVIO) 300 mg recon soln 300 mg, intravenous, Every 8 weeks, First dose on Tue02/03/24 at 2145, Infused by: [facility] ([facility] order in Epic under 'Procedures' tab). Given 12/12/2023 12:45 PM TEACHING YOUNG 300 mg documented in this encounter Home Health Visit - Care Plan Visit Details Visit Type -SN Infusion Christa tment Room Discipline -Senior Living Problems Problem Description Start Date Status Goals Interve ntions Medications Disciplines: Senior Living Management of medications 11/19/2023 Active 1 goal linked to scheduled/documen luisa intervention 1 goal intervention scheduled/documen luisa in this visit Monitor patient's vital signs every home health visit Disciplines: Skilled Disciplines, SN, PT, OT, AUTO STRIPER, UNDERGROUND FOREMAN Monitor patient's vital signs every visit. 11/19/2023 Active 1 goal linked to scheduled/documen luisa intervention 1 goal intervention scheduled/documen luisa in this visit Safety concerns Disciplines: Skilled Disciplines Alteration in safety 11/19/2023 Active 1 goal linked to scheduled/documen luisa intervention 1 goal intervention scheduled/documen luisa in this visit Specialty Medication - General Disciplines: Senior Living Skilled Nurse to provide safe assessment of patient prior to use of general specialty medication 11/19/2023 Active - 3 problem interventions scheduled/documen luisa in this visit Medications Disciplines: Senior Living Management of IV Medications 11/19/2023 Active - 1 problem intervention scheduled/documen luisa in this visit Need to Collect Specimen Sample Disciplines: Senior Living Need to collect specimen sample 11/19/2023 Active - 1 problem intervention scheduled/documen luisa in this visit Learning/Teachin g Needs - IV Therapy Disciplines: Senior Living Teaching and learning needs for IV therapy [...] Risk Medications Description: Instruct patient on high-risk medications,specifica melba Entyvio. Problem:Medications Goal:Understand and follow medication therapy Scheduled Monitor Vital Signs Description: Monitor blood pressure, pulse, oxygen saturation, respirations, and temperature, Problem:Monitor patient's vital signs every home health visit Goal:Measure vital signs during every home health visit during episode of care Completed Assess safety Description: Assess patient safety Problem:Safety concerns Goal:Demonstrate use of safety precautions Completed Learning Teaching Needs Description: Skilled Nurse to monitor vital signs throughout the infusion and upon completion of the infusion. Skilled Nurse to assess patient following infusion. If stable, patient may be discharged home. Problem:Specialty Medication - General Completed Pre Medication Assessment Description: Skilled Nurse to complete infusion checklist. Skilled Nurse to monitor vital signs. If patients has a temperature greater than 100 degrees F (37.8 C), notify the pharmacist/physician. Skilled Nurse to obtain IV access for infusion Problem:Specialty Medication - General Completed Learning Teaching Needs Description: Skilled Nurse to instruct patient on the potential side effects of the medication. Problem:Specialty Medication - General Completed Instruct on Medication Management Description: Instruct patient in medication administration, purpose, dosages, preparation, scheduling, side effects, food/drug interactions, drug allergies, and potential complications. Medications instructed on: Entyvio. Problem:Medications Scheduled Lab draw Description: Copied from pharmacy order: Parker De La Cruz MD/ Sonali Looney, PharmD/ Sonali Cruz RN LABs: CBC w/diff, CMP & CRP every 8 weeks (every infusion). T-SPOT.TB or Qunatiferon Gold TB once a year (due November 2023). Problem:Need to Collect Specimen Sample Completed LABs collected via new PIV insertion: TB Quantiferon, CBC w/diff, CMP & CRP Brought to [facility] labs. Lab results to fax to [facility] as ordered. Patient tolerated well. No concerns or complaints at this time. Instruct Infection Prevention Description: Instruct patient in strategies to prevent infection: frequent/proper hand-washing techniques, [place] precautions, avoid crowds and persons with known infections, staying current with immunizations, s/s of infection, use of antibiotics and encourage adequate diet and fluid intake. Instruct patient on how to recognize signs and symptoms of infection and when to notify HH nurse and/or physician. Problem:Learning/Teac loraine Needs - IV Therapy Completed Instructed patient on strategies to prevent infection: frequent/proper hand-washing techniques, Standard precautions, avoid crowds and persons with known infections, staying current with immunizations, s/s of infection, use of incentive spirometer, use of antibiotics and encourage adequate diet and fluid intake. Educated on signs and symptoms of infection IE: fever, odor, change in color, increased amount of drainage, purulent drainage, warmth, universal precautions and home infection control measures and when to notify HH nurse and/or physician. Patient verbalized understanding. IV Access Care/Maintenance Description: Skilled Nurse will [...] loraine Needs - IV Therapy Completed Patient tolerated well. No concerns or complaints at this time. IV Discontinuation Description: Skilled Nurse will remove PIV following infusion per MD order and facility protocol, verifying catheter is intact, applying pressure to site until hemostasis is achieved and apply small gauze dressing secured with tape to site. Problem:Learning/Teac loraine Needs - IV Therapy Completed Patient tolerated well. No concerns or complaints at this time. IV Pump Instruction Description: Instruct patient to use call button if IV becomes painful, or swelling/redness occur at IV site, or if pump alarms during infusion. Call button will be kept within reach of patient throughout infusion. Problem:Learning/Teac loraine Needs - IV Therapy Scheduled documented in this encounter Care Teams Wooden Box Maker Relationship Specialty Start Date End Date Emmanuel Wesley DO PCP - General Internal Medicine 12/11/21 documented as of this encounter
--- OUTSIDE RECORDS SUMMARY | 2024-11-11 19:10 | XMS_ITS | Encounter Summary ---
Author Organization [facility] Healthcare Address [address] [place] [address] Care Team Providers Care Surgical Processor Name Role Phone Emmanuel Wesley DO Primary Care Provider +1- [phone] Encounter Details Date Type Department Care Team (Late st Contact Info) Description 11/18/2023 Plan of Care Documentation [facility] - [address] [address] [address] [place] [address] Social History Tobacco Use Types Packs/Day Years [...] of Binge Drinking Not on file 06/2023 Personal Safety Answer Date Recorded Getting School Help Needed Not on file 10/17 Sex and Gender Information Value Date Recorded Sex Assigned at Not on file 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 The patient is under my care, and I have authorized the services on this plan of care and will periodically review the plan. UITS ENGINEER documented in this encounter Plan of Treatment Upcoming Encounters Date Type Department Care Team (Late st Contact Info) Description 11/09/2024 Plan of Care Documentation [address] [place] [address] documented as of this encounter Visit Diagnoses Not on filedocumented in this encounter Care Teams Surgical Processor Relationship Specialty Start Date End Date Emmanuel Wesley DO PCP - General Internal Medicine 12/11/21 documented as of this encounter
--- OUTSIDE RECORDS SUMMARY | 2024-11-11 19:10 | XMS_ITS | Encounter Summary ---
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 5 mL 5 08/03/2023 4 documented as of this encounter Discharge Disposition Disposition Code Departure Means Destination Discharge to home or self care documented in this encounter Miscellaneous Notes * Result Encounter Note - Parker De La Cruz MD - 08/22/2023 4:42 PM CDT Normal labs documented in this encounter Plan of Treatment Upcoming Encounters Date Type Department Care Team (Late st Contact Info) Description 11/09/2024 Plan of Care Documentation [facility] Health - [address] [address] [address] [place] [address] documented as of this encounter Procedures Procedure Name Priority Date/Time Associated Diagnosis Comments DIFFERENTIAL AUTO Routine 08/22/2023 12: 58 PM CDT CBC WITH AUTO DIFFERENTIAL Routine 08/22/2023 12:58 PM CDT HEPATIC FUNCTION PANEL Routine 08/22/2023 12:58 PM CDT documented in this encounter Results * Differential, auto (08/22/2023 12:58 PM CDT) Neutrophil abs 3.6 1.7 - 6.5 K/cumm Imm gran abs 0.0 0.0 - 0.1 K/cumm [facility] Lymphocyte abs 1.7 0.8 - 3.3 K/cumm [facility] Monocyte abs 0.4 0.2 - 0.8 K/cumm [facility] Eosinophil abs 0.1 0.0 - 0.5 K/cumm [facility] Basophil abs 0.0 0.0 - 0.1 K/cumm [facility] Neutrophil pct 61.1 % [facility] Comment: Interpretive Data Percent cell count reference ranges are not reported, since discordance with absolute values may lead to misinterpretation of CBC data. Current Interpretive Data was last revised on 2018. Imm gran pct 0.2 % [facility] Comment: Interpretive Data Percent cell count reference ranges are not reported, since discordance with absolute values may lead to misinterpretation of CBC data. Current Interpretive Data was last revised on 2018. Lymphocyte pct 28.4 % [facility] Comment: Interpretive Data Percent cell count reference ranges are not reported, since discordance with absolute values may lead to misinterpretation of CBC data. Current Interpretive Data was last revised on 2018. Monocyte pct 7.4 % [facility] Comment: Interpretive Data Percent cell count reference ranges are not reported, since discordance with absolute values may lead to misinterpretation of CBC data. Current Interpretive Data was last revised on 2018. Eosinophil pct 2.4 % [facility] Comment: Interpretive Data Percent cell count reference ranges are not reported, since discordance with absolute values may lead to misinterpretation of CBC data. Current Interpretive Data was last revised on 2018. Basophil pct 0.5 % [facility] Comment: Interpretive Data Percent cell count reference ranges are not reported, since discordance with absolute values may lead to misinterpretation of CBC data. Current Interpretive Data was last revised on 2018. Blood 08/22/2023 12:5 8 PM CDT 08/22/2023 4:19 PM CDT Parker De La Cruz MD LAB BLOOD ORDERABLES Final Result [facility] Department [place] [address] * CBC with auto differential (08/22/2023 12:58 PM CDT) [facility] WBC 5.8 3.8 - 9.9 K/cumm Hgb 13.4 13.0 - 17.5 g/dL [facility] Comment: Interpretive Data A reference range for this assay has not been established for patients with an unknown legal sex. Please refer to the laboratory test catalog for established sex-specific reference intervals. Current interpretive data was last revised on 2023. Hct 40.5 38.9 - 50.3 % [facility] Comment: Interpretive Data A reference range for this assay has not been established for patients with an unknown legal sex. Please refer to the laboratory test catalog for established sex-specific reference intervals. Current interpretive data was last revised on 2023. Plt 238 150 - 400 K/cumm [facility] MPV 10.8 9.1 - 12.3 fL [facility] RBC 4.63 4.30 - 5.80 M/cumm [facility] Comment: Interpretive Data A reference range for this assay has not been established for patients with an unknown legal sex. Please refer to the laboratory test catalog for established sex-specific reference intervals. Current interpretive data was last revised on 2023. MCV 87.5 81.3 - 96.4 fL [facility] MCH 28.9 27.1 - 33.3 pg [facility] MCHC 33.1 32.3 - 35.7 g/dL [facility] RDW CV 14.1 11.1 - 14.9 % [facility] RDW SD 44.5 35.7 - 48.1 fL [facility] NRBC abs 0.00 0.00 - 0.01 K/cumm [facility] Blood 08/22/2023 12:5 8 PM CDT 08/22/2023 4:19 PM CDT Parker De La Cruz MD LAB BLOOD ORDERABLES Final Result Performing Organization Address City/[facility] Co de Phone Number [facility] [place] [address] * Hepatic function panel (08/22/2023 12:58 PM CDT) Bilirubin, total 0.7 0.1 - 1.2 mg/dL Bilirubin, direct See Comment 0.1 - 0.3 mg/dL [facility] Comment:Credited; Hemolyzed Specimen Protein, pl 7.2 6.5 - 8.5 g/dL [facility] Albumin 4.4 3.5 - 5.0 g/dL [facility] Alk phos 50 40 - 130 Units/L [facility] ALT 51 7 - 55 Units/L [facility] AST 46 10 - 50 Units/L [facility] Comment:Hemolyzed; result ma y be falsely elevated Blood 08/22/2023 12:5 8 PM CDT 08/22/2023 4:19 PM CDT Parker De La Cruz MD LAB BLOOD ORDERABLES Final Result Performing Organization Address [facility] Co de Phone Number [facility] [place] [address] documented in this encounter Visit Diagnoses Not on filedocumented in this encounter Care Teams Military Technology Manager Relationship Specialty Start Date End Date Emmanuel Wesley DO PCP - General Internal Medicine 12/11/21 documented as of this encounter
--- OUTSIDE RECORDS SUMMARY | 2024-11-11 19:10 | XMS_ITS | Encounter Summary ---
Author Organization [facility] Address [address] [place] [address] Phone Care Team Providers Care Computer Applications Engineer Name Role Phone Emmanuel Wesley DO Primary Care Provider +1- [phone] Reason for Visit * Reason Onset Date Comments combination therapy 07/26/2024 Encounter Details Date Type Department Care Team (Late st Contact Info) Description 07/26/2024 Documentation [facility] [address] [place] [address] [place] [address] Christina Reid, SANDRA combination therapy Social History Tobacco Use Types Packs/Day Years [...] on file 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 Med management/combination therapy risk addressed [facility] Home Care nurse and requesting previously faxed lipids order be added to standing infusion safety labs (see below). From: Franklin Cruz Sent: Thursday, July 25, 2024 4:14 PM To: Gretta Dalton Ashley Cc: Christina Reid Subject: Re: Ranjit Peralta (1980) Great I'll add a note on my end. Appreciate it. Have a great night. Gaurang From: Christina Reid Sent: Thursday, July 25, 2024 4:08:21 PM To: Franklin Dalton ([facility]) Cc: Christina Reid ([facility]) Subject: RE: Ranjit Peralta (1980) Good afternoon, Dr. Diego is aware and patient is to continue both Rinvoq and Entyvio. It is documented in Dr. De La Cruz's 05/08/24 office note, if you need formal documentation for this. We monitor safety labs with each infusion. Speaking of labs, I recently faxed a standing lipid panel order to be collected with the other infusion labs (CBC, CMP & CRP). Can you make sure that gets collected? Thanks for checking! Kind Regards, Christina From: Franklin Cruz Sent: Thursday, July 25, 2024 4:00 PM To: Eryn Dalton Ashley Subject: Ranjit Peralta (1980) Eryn/ Christina, I see Naseem has been prescribe Rinvoq in addition to his Entyvio. The two in combination have a severe interaction: Concurrent use of upadacitinib with immunosuppressives or immunomodulators may result in an increased risk of serious infections. Can you confirm that Dr. De La Cruz is aware and that the patient may continue both medication? If so I will make a note in the chart. Thank you, Gaurang Cruz, RN, CRNI, VA-BC RN [facility] Home Infusion documented in this encounter Plan of Treatment Upcoming Encounters Date Type Department Care Team (Late st Contact Info) Description 11/09/2024 Plan of Care Documentation [facility] [address] [address] [address] [place] [address] documented as of this encounter Visit Diagnoses Not on filedocumented in this encounter Care Teams Computer Applications Engineer Relationship Specialty Start Date End Date Emmanuel Wesley DO PCP - General Internal Medicine 12/11/21 documented as of this encounter
--- OUTSIDE RECORDS SUMMARY | 2024-11-11 19:10 | XMS_ITS | Encounter Summary ---
Author Organization [facility] Healthcare Address [address] [place] [address] Care Team Providers Care Digital Communications Manager Name Role Phone Emmanuel Wesley DO Primary Care Provider +1- [phone] Encounter Details Date Type Department Care Team (Late st Contact Info) Description 04/12/2024 Orders Only [facility] [address] [place] [id number] Cameron Looney, [facility] Social History Tobacco Use Types Packs/Day Years [...] on file 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:34 AM [employer] Gender Identity Not on file Sexual Orientation Not on file documented as of this encounter Progress Notes * Cameron Looney RPh - 04/12/2024 8:45 AM CDT TORB: Parker De La Cruz MD/ Christina Kramer RN/ Cameron Looney, MpD LABs: Hep B surface antigen, hep B surface antibody, hep B core antibody at next Entyvio infusion. documented in this encounter Plan of Treatment Upcoming Encounters Date Type Department Care Team (Late st Contact Info) Description 11/09/2024 Plan of Care Documentation [address] [address] [address] [place] [address] documented as of this encounter Visit Diagnoses Not on filedocumented in this encounter Care Teams Digital Communications Manager Relationship Specialty Start Date End Date Emmanuel Wesley DO PCP - General Internal Medicine 12/11/21 documented as of this encounter
--- OUTSIDE RECORDS SUMMARY | 2024-11-11 19:10 | XMS_ITS | Encounter Summary ---
Author Organization [facility] Healthcare Address [address] [place] [address] Care Team Providers Care Terrazzo Layer Name Role Phone Emmanuel Wesley DO Primary Care Provider [phone]- [phone] Encounter Details Date Type Department Care Team (Latest Contact Info) Description 10/17/2023 12:15 PM BRAKE TESTER - 10/17/2023 11:59 PM BRAKE TESTER Hospital Encounter [address] [address] Discharge Disposition: Discharge to home or self [...] on file 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:34 AM BRAKE TESTER Gender Identity Not on file Sexual Orientation [...] a venous catheter as needed (line patency) allopurinoL (ZYLOPRIM) 100 mg tablet 1 tablet [...] catheter every 8 (eight) weeks Infused by: [facility] ([facility] order in Epic under 'Procedures' tab). 5 mL 5 08/03/2023 4 documented as of this encounter Discharge Disposition Disposition Code Departure Means Destination Discharge to home or self care documented in this encounter Miscellaneous Notes * Result Encounter Note - Parker De La Cruz MD - 10/17/2023 4:49 PM BRAKE TESTER Labs ok E TESTER documented in this encounter Plan of Treatment Upcoming Encounters Date Type Department Care Team (Late st Contact Info) Description 11/09/2024 Plan of Care Documentation [facility] Home Health - [address] [address] [address] [place] [address] documented as of this encounter Procedures Procedure Name Priority Date/Time Associated Diagnosis Comments GLUCOSE, RANDOM (OUTREACH) Routine 10/17/2023 12:15 PM BRAKE TESTER EGFR Routine 10/17/2023 12:15 PM BRAKE TESTER DIFFERENTIAL AUTO Routine 10/17/2023 12: 15 PM BRAKE TESTER COMPREHENSIVE METABOLIC PANEL WITHOUT GLUCOSE (OUTREACH) Routine 10/17/2023 12:15 PM BRAKE TESTER CBC WITH AUTO DIFFERENTIAL Routine 10/17/2023 12:15 PM BRAKE TESTER CRP (ACUTE PHASE) Routine 10/17/2023 12: 15 PM BRAKE TESTER documented in this encounter Results * eGFR (10/17/2023 12:15 PM BRAKE TESTER) eGFR 82 >=60 mL/min/1. 73 m2 [facility]DO CROWE[facility] Comment: Interpretive Data Reference Interval Normal ?>/= [...] interpretive data was last reviewed 2021. Blood 10/17/2023 12:1 5 PM BRAKE TESTER 10/17/2023 4:10 PM BRAKE TESTER us Parker De La Cruz MD LAB BLOOD ORDERABLES Final Result [facility] [place] [address] * Differential, auto (10/17/2023 12:15 PM BRAKE TESTER) Neutrophil abs 4.3 1.5 - 6.5 K/cumm [facility] Imm gran abs 0.0 0.0 - 0.1 K/cumm [facility] Lymphocyte abs 1.9 0.8 - 3.3 K/cumm [facility] Monocyte abs 0.6 0.2 - 0.8 K/cumm [facility] Eosinophil abs 0.1 0.0 - 0.5 K/cumm [facility] Basophil abs 0.1 0.0 - 0.1 K/cumm [facility] Neutrophil pct 61.9 % [facility] Comment: Interpretive Data Percent cell count reference ranges are not reported, since discordance with absolute values may lead to misinterpretation of CBC data. Current Interpretive Data was last revised on 2018. Imm gran pct 0.4 % [facility] Comment: Interpretive Data Percent cell count reference ranges are not reported, since discordance with absolute values may lead to misinterpretation of CBC data. Current Interpretive Data was last revised on 2018. Lymphocyte pct 27.4 % [facility] Comment: Interpretive Data Percent cell count reference ranges are not reported, since discordance with absolute values may lead to misinterpretation of CBC data. Current Interpretive Data was last revised on 2018. Monocyte pct 8.0 % [facility] Comment: Interpretive Data Percent cell count reference ranges are not reported, since discordance with absolute values may lead to misinterpretation of CBC data. Current Interpretive Data was last revised on 2018. Eosinophil pct 1.6 % [facility] Comment: Interpretive Data Percent cell count reference ranges are not reported, since discordance with absolute values may lead to misinterpretation of CBC data. Current Interpretive Data was last revised on 2018. Basophil pct 0.7 % [facility] Comment: Interpretive Data Percent cell count reference ranges are not reported, since discordance with absolute values may lead to misinterpretation of CBC data. Current Interpretive Data was last revised on 2018. Blood 10/17/2023 12:1 5 PM BRAKE TESTER 10/17/2023 3:54 PM BRAKE TESTER Parker De La Cruz MD LAB BLOOD ORDERABLES Final Result Performing Organization Address City/[facility]/ZIP Co de Phone Number [facility] [place] [address] * CRP (acute phase) (10/17/2023 12:15 PM BRAKE TESTER) Pathologist [facility] CRP 3.3 <=10.0 mg/L [facility] Blood 10/17/2023 12:1 5 PM BRAKE TESTER 10/17/2023 3:54 PM BRAKE TESTER Parker De La Cruz MD LAB BLOOD ORDERABLES Final Result Performing Organization Address [facility] de Phone Number [facility] [place] [address] * CBC with auto differential (10/17/2023 12:15 PM BRAKE TESTER) Pathologist [facility] WBC 6.9 3.8 - 9.9 K/cumm [facility] Hgb 14.7 13.0 - 17.5 g/dL [facility] Comment: Interpretive Data A reference range for this assay has not been established for patients with an unknown legal sex. Please refer to the laboratory test catalog for established sex-specific reference intervals. Current interpretive data was last revised on 2023. Hct 43.8 38.9 - 50.3 % [facility] Comment: Interpretive Data A reference range for this assay has not been established for patients with an unknown legal sex. Please refer to the laboratory test catalog for established sex-specific reference intervals. Current interpretive data was last revised on 2023. Plt 242 150 - 400 K/cumm [facility] MPV 10.8 9.1 - 12.3 fL [facility] RBC 4.99 4.30 - 5.80 M/cumm [facility] Comment: Interpretive Data A reference range for this assay has not been established for patients with an unknown legal sex. Please refer to the laboratory test catalog for established sex-specific reference intervals. Current interpretive data was last revised on 2023. MCV 87.8 81.3 - 96.4 fL [facility] MCH 29.5 27.1 - 33.3 pg [facility] MCHC 33.6 32.3 - 35.7 g/dL [facility] RDW CV 13.1 11.1 - 14.9 % [facility] RDW SD 42.3 35.7 - 48.1 fL [facility] NRBC abs 0.00 0.00 - 0.01 K/cumm [facility] Blood 10/17/2023 12:1 5 PM BRAKE TESTER 10/17/2023 3:54 PM BRAKE TESTER Parker De La Cruz MD LAB BLOOD ORDERABLES Final Result [facility] [place] [address] * Glucose, random (Outreach) (10/17/2023 12:15 PM BRAKE TESTER) [facility] Glucose 84 70 - 199 mg/dL [facility] Comment: Interpretive Data Fasting glucose >/= 126 [...] interpretive data was last revised 2022. Blood 10/17/2023 12:1 5 PM BRAKE TESTER 10/17/2023 3:54 PM BRAKE TESTER Parker De La Cruz MD LAB BLOOD ORDERABLES Final Result Performing Organization Address [facility] de Phone Number [facility] [place] [address] * (ABNORMAL) Comprehensive metabolic panel, without glucose (Outreach) (10/17/2023 12:15 PM BRAKE TESTER) Sodium 142 135 - 145 mmol/L [facility] Potassium, pl 4.0 3.3 - 4.9 mmol/L [facility] Chloride 106 97 - 110 mmol/L [facility] CO2 24 22 - 32 mmol/L [facility] Anion gap 12 2 - 15 mmol/L [facility] BUN 12 6 - 25 mg/dL [facility] Creatinine 1.14 0.80 - 1.30 mg/dL [facility] Calcium 10.0 8.5 - 10.3 mg/dL [facility] Protein, pl 7.6 6.5 - 8.5 g/dL [facility] Albumin 4.8 3.5 - 5.0 g/dL [facility] Bilirubin, total 0.6 0.1 - 1.2 mg/dL [facility] Alk phos 51 40 - 130 Units/L [facility] AST 40 10 - 50 Units/L [facility] ALT 62(H) 7 - 55 Units/L [facility] Blood 10/17/2023 12:1 5 PM BRAKE TESTER 10/17/2023 3:54 PM BRAKE TESTER Parker De La Cruz MD LAB BLOOD ORDERABLES Final Result Performing Organization Address [facility] Co de Phone Number [facility] [place] [address] documented in this encounter Visit Diagnoses Not on filedocumented in this encounter Care Teams Terrazzo Layer Relationship Specialty Start Date End Date Emmanuel Wesley DO PCP - General Internal Medicine 12/11/21 documented as of this encounter
--- OUTSIDE RECORDS SUMMARY | 2024-11-11 19:10 | XMS_ITS | Encounter Summary ---
Author Organization [facility] Healthcare Address [address] [place] [address] Care Team Providers Care Choker Setter Name Role Phone Emmanuel Wesley DO Primary Care Provider [phone]- [phone] Reason for Visit * Medication Authorization (Routine) - Pending Review Specialty Diagnoses / Procedures Referred By Med bazan Referred To Contact Parker De La Cruz MD [address] [facility] [address] [place] [address] Phone: tel: fax: Referral ID Status Reason Start Date Expiration Date V isits Requested Visits Authorized [id number] Pending Review 02/08/2024 03/09/2025 1 1 Encounter Details Date Type Department Care Team (Latest Contact Info) Description 02/06/2024 1:00 PM CDT Home Care Visit [facility] [address] [address] [address] [place] [address] Shahzad Snell RN SN INFUSION TREATMENT ROOM Social History [...] on file 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 Gender Identity Not on file Sexual Orientation Not on file documented as of this encounter Last Filed Vital Signs Vital Sign Reading Time Taken Comments Blood Pressure 127/78 02/06/2024 1:50 PM CDT Pulse 68 02/06/2024 1:50 PM CDT Temperature 36.6 ??C (97.8 ??F) 02/06/2024 1:50 PM CD T Respiratory Rate 16 02/06/2024 1:50 PM CDT Oxygen Saturation 99% 02/06/2024 1:50 PM CDT Inhaled Oxygen Concentration - - Weight 120.2 kg (265 lb) 02/06/2024 12:50 PM CDT Height - - Body Mass Index 33.12 12/27/2023 8:54 AM CASSEROLE PREPARER documented in this encounter Miscellaneous Notes * Home Health Plan for Next Visit - Shahzad Snell RN - 02/06/2024 1:45 PM CDT Reason for today's visit: Assessment, piv, labs and dose med. Discuss plan of care with patient. Discharge planning ongoing. Plan for next visit: Assessment, piv, labs and dose med. documented in this encounter Plan of Treatment Upcoming Encounters Date Type Department Care Team (Late st Contact Info) Description 11/09/2024 Plan of Care Documentation [facility] Home Health - [address] [address] [address] [place] [address] documented as of this encounter Visit Diagnoses Not on filedocumented in this encounter Administered Medications Active Administered Medications - up to 3 most recent administrations Medication Order MAR Action Action Date Dose Rate Site sodium chloride 0.9 %, flush, (SALINE FLUSH INJ) 10 mL, intravenous, As needed, line patency, Starting on Tue02/08/24 at 2019, Indications: line patencyIndications:line patency Given 02/06/2024 2:50 PM CDT 10 mL Given 02/06/2024 2:00 PM CDT 10 mL Inactive Administered Medications - up to 3 most recent administrations Medication Order MAR Action Action Date Dose Rate Site vedolizumab (ENTYVIO) 300 mg recon soln 300 mg, intravenous, Every 8 weeks, First dose on Tue02/08/24 at 2100, Infused by: [facility] Home Care ([facility] order in Epic under 'Procedures' tab). Given 02/06/2024 2:10 PM CDT 300 mg documented in this encounter Home Health Visit - Care Plan Visit Details Visit Type -SN Infusion Christa tment Room Discipline -Nursing Home Problems Problem Description Start Date Status Goals Interve ntions Medications Disciplines: Nursing Home Management of medications 11/19/2023 Active 1 goal linked to scheduled/documen luisa intervention 1 goal intervention scheduled/documen luisa in this visit Monitor patient's vital signs every home health visit Disciplines: Skilled Disciplines, SN, PT, OT, GOVERNMENT EMPLOYEE, MAGISTRATE ASSISTANT Monitor patient's vital signs every visit. 11/19/2023 Active 1 goal linked to scheduled/documen luisa intervention 1 goal intervention scheduled/documen luisa in this visit Safety concerns Disciplines: Skilled Disciplines Alteration in safety 11/19/2023 Active 1 goal linked to scheduled/documen luisa intervention 1 goal intervention scheduled/documen luisa in this visit Specialty Medication - General Disciplines: Nursing Home Skilled Nurse to provide safe assessment of patient prior to use of general specialty medication 11/19/2023 Active - 3 problem interventions scheduled/documen luisa in this visit Medications Disciplines: Nursing Home Management of IV Medications 11/19/2023 Active - 1 problem intervention scheduled/documen luisa in this visit Need to Collect Specimen Sample Disciplines: Nursing Home Need to collect specimen sample 11/19/2023 Active - 1 problem intervention scheduled/documen luisa in this visit Learning/Teachin g Needs - IV Therapy Disciplines: Nursing Home Teaching and learning needs for IV therapy 11/19/2023 Active - 3 problem interventions scheduled/documen luias in this visit Goals Goal Associated Problem [...] Problem:Medications Goal:Understand and follow medication therapy Completed SN instructed patient in strategies to prevent infection: frequent/proper hand-washing techniques, Pierre Part precautions, avoid crowds and persons with known infections, staying current with immunizations, s/s of infection, use of antibiotics and encourage adequate diet and fluid intake. Instruct patient on how to recognize signs and symptoms of infection and when to notify HH nurse and/or physician. Monitor Vital Signs Description: Monitor blood pressure, pulse, oxygen saturation, respirations, and temperature, Problem:Monitor patient's vital signs every home health visit Goal:Measure vital signs during every home health visit during episode of care Completed VSS, afebrile with o2 sat at 99%. Assess safety Description: Assess patient safety Problem:Safety concerns Goal:Demonstrate use of safety precautions Completed Patient seen in treatment room at our [place] office but reports feeling safe at home and reports no issues. Learning Teaching Needs Description: Skilled Nurse to monitor vital signs throughout the infusion and upon completion of the infusion. Skilled Nurse to assess patient following infusion. If stable, patient may be discharged home. Problem:Specialty Medication - General Completed VSS and patient tolerated infusion well and will call with any issues or problems Pre Medication Assessment Description: Skilled Nurse to complete infusion checklist. Skilled Nurse to monitor vital signs. If patients has a temperature greater than 100 degrees F (37.8 C), notify the pharmacist/physician. Skilled Nurse to obtain IV access for infusion Problem:Specialty Medication - General Completed Patient afebrile and tolerated the last infusion well. Learning Teaching Needs Description: Skilled Nurse to instruct patient on the potential side effects of the medication. Problem:Specialty Medication - General Completed SN instructed patient on the potential side effects of the medication. Instruct on Medication Management Description: Instruct patient in medication administration, purpose, dosages, preparation, scheduling, side effects, food/drug interactions, drug allergies, and potential complications. Medications instructed on: Entyvio. Problem:Medications Completed SN instructed patient in medication administration, purpose, dosages, preparation, scheduling, side effects, food/drug interactions, drug allergies, and potential complications. Medications instructed on: Entyvio. Lab draw Description: Copied from pharmacy order: Parker De La Cruz MD/ Sonali Looney, PharmD/ Sonali Cruz RN LABs: CBC w/diff, CMP & CRP every 8 weeks (every infusion). T-SPOT.TB or Qunatiferon Gold TB once a year (due November 2023). Problem:Need to Collect Specimen Sample Completed Labs drawn as ordered from IV access after discard and line well flushed after labs. CBC, CMP, CRP drawn today. Instruct Infection Prevention Description: Instruct patient in strategies to prevent infection: frequent/proper hand-washing techniques, Pierre Part precautions, avoid crowds and persons with known infections, staying current with immunizations, s/s of infection, use of antibiotics and encourage adequate diet and fluid intake. Instruct patient on how to recognize signs and symptoms of infection and when to notify HH nurse and/or physician. Problem:Learning/Teach ing Needs - IV Therapy Completed SN instructed patient in strategies to prevent infection: frequent/proper hand-washing techniques, Pierre Part precautions, avoid crowds and persons with known infections, staying current with immunizations, s/s of infection, use of antibiotics and encourage adequate diet and fluid intake. Instruct patient on how to recognize signs and symptoms of infection and when to notify HH nurse and/or physician. IV Pump Instruction Description: Instruct patient to use call button if IV becomes painful, or swelling/redness occur at IV site, or if pump alarms during infusion. Call button will be kept within reach of patient throughout infusion. Problem:Learning/Teach ing Needs - IV Therapy Completed Patient has call light and will use it if needed. IV Access Care/Maintenance Description: Skilled Nurse will start PIV prior to each infusion and apply transparent sterile dressing to site. When infusion is completed and after observation period, SN will discontinue PIV, verify catheter is intact, apply pressure to site until hemostasis is achieved and apply small gauze dressing secured with tape to site prior to discharge. Type of line: PIV Problem:Learning/Teach ing Needs - IV Therapy Completed PIV placed on 1st attempt using a 24guage cath, med infused, line flushed and cath removed-intact. 2x2 and BandAid placed over the site. Patient tolerated the procedure well. documented in this encounter Care Teams Choker Setter Relationship Specialty Start Date End Date Emmanuel Wesley DO PCP - General Internal Medicine 12/11/21 documented as of this encounter
--- OUTSIDE RECORDS SUMMARY | 2024-11-11 19:10 | XMS_ITS | Encounter Summary ---
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 Gender Identity Not on file Sexual Orientation Not on file documented as of this encounter Progress Notes * Cameron Looney RPh - 01/13/2024 12:25 PM CST FOC: Parker De La Cruz MD/ Christina Chou RN/ Cameron Looney PharmD LABs: Vitamin D 25 Hydroxy at next Entyvio infusion (~02/06/24) ER documented in this encounter Plan of Treatment Upcoming Encounters Date Type Department Care Team (Late st Contact Info) Description 11/09/2024 Plan of Care Documentation [address] [address] [address] [place] [address] documented as of this encounter Visit Diagnoses Not on filedocumented in this encounter Care Teams Head Of Marketing Relationship Specialty Start Date End Date Emmanuel Wesley DO PCP - General Internal Medicine 12/11/21 documented as of this encounter
--- OUTSIDE RECORDS SUMMARY | 2024-11-11 19:10 | XMS_ITS | Encounter Summary ---
Author Organization [facility] Address [address] [place] [address] Care Team Providers Care Wad Printing Machine Operator Name Role Phone Emmanuel Wesley DO Primary Care Provider [phone]- [phone] Reason for Visit * Auth/Cert (Routine) Specialty Diagnoses / Procedures Referred By Med bazan Referred To Contact Diagnoses Crohn's disease of small and large intestines with complication (HCC) Stricture intestinal (CMS/HCC) (HCC) Crohn's disease of small and large intestines with complication (HCC) [K50.819] Stricture intestinal (CMS/HCC) (HCC) [K56.699] Procedures SC COLONOSCOPY FLX DX W/COLLJ SPEC WHEN PFRMD SC UNLISTED PROCEDURE COLON HC PCMKR [id number] IMPL 2 CHAMBER RR EXTD LNGVT colon dilation per rectum and stoma IBD Referral ID Status Reason Start Date Expiration Date Visits Re quested Visits Authorized [id number] 1 1 Encounter Details Date Type Department Care Team (Late st Contact Info) Description 04/09/2024 11:37 AM CDT Anesthesia Event [facility] Endoscopy [address] [place] [address] Jonathan Ramires MD [address] [facility] [address] [place] [address] Anesthesia Record Procedure Summary Procedure Name Responsible Anesthesiologist Anesthesia Start Time Anesthesia Stop Time ENDO ADD ON OSTOMY BALLOON DILATION Jonathan Ramires MD 04/09/24 1137 04/09/24 1227 Events Date Time Event Comment 04/09/2024 1122 1135 AN Equip Check 1137 An Start 1137 An Start Data 1137 In Room 1140 Start Supplemental O2 1145 Patient Positioned Laterally 1147 An Induction The patient was reevaluated immediately before moderate or deep sedation use and before anesthesia induction. 1149 Anesthesia Ready 1150 Proc Start 1220 Proc Fin 1223 an stop data 1227 Handoff to RN I completed my handoff [...] Patient disposition at the time of handoff: PACU,phase II 1227 An Stop 1227 Out of Room Meds Name Total propofol 600 mg fentaNYL PF 100 mcg Lidocaine IV 2 % 5 mL glucagon 0.5 mg sodium chloride 0.9% infusion 800 mL * Agents Name O2 N2O Air Sevoflurane Inspired Sevoflurane * Blood No blood administrations on file. 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 Gender Identity Not on file Sexual Orientation Not on file documented as of this encounter OR Notes * Anesthesia Postprocedure Evaluation - Richard Caldwell MD - 04/09/2024 2:33 PM CDT Patient: Ranjit Peralta Procedure Summary Date: 04/09/24 Room / Location: [facility] ENDOSCOPY ROOM [facility] ENDOSCOPY Anesthesia Start: 1137 Anesthesia Stop: 1227 Procedure: OSTOMY BALLOON DILATION Diagnosis: Crohn's disease of small and large intestines with complication (HCC) Stricture intestinal (CMS/HCC) (HCC) (Crohn's disease of small and large intestines with complication (HCC) [K50.819]) (Stricture intestinal (CMS/HCC) (HCC) [K56.699]) Providers: Tahir Cardoso MD Responsible Provider: Jonathan Ramires MD Anesthesia Type: general ASA Status: 2 Anesthesia Type: general Last vitals BP 139/75 Pulse 54 Temp 36.2 ??C (97.2 ??F) (Temporal) Resp 11 SpO2 96% Anesthesia Post Evaluation Patient location during evaluation: PACU Patient participation: complete - patient participated Level of consciousness: fully awake Pain score: 2 Pain management: adequate Airway patency: adequate Evidence of recall: no Cardiovascular status: hemodynamically stable Respiratory status: acceptable Hydration status: euvolemic Pt is: normothermic Nausea/Vomiting status: none No notable events documented. * Anesthesia Preprocedure Evaluation - Jonathan Ramires MD - 04/09/2024 11:22 AM CDT Images from the original note were not included. Anesthesia Evaluation Ranjit Peralta is a 43 y.o. male colon dilation per rectum and stoma IBD Pre-Op Diagnosis Codes: * Crohn's disease of small and large intestines with complication (HCC) [K50.819] * Stricture intestinal (CMS/HCC) (HCC) [K56.699] Patient Active Problem List Diagnosis Date Noted Healthcare maintenance 12/27/2023 Encounter for examination of potential donor of organ and tissue 05/09/2023 High risk medications (not anticoagulants) long-term use 10/10/2018 Stricture intestinal ([facility]/HCC) ([facility]) 10/10/2018 Need for 23-polyvalent pneumococcal polysaccharide vaccine 10/10/2018 Crohn's disease with complication ([facility]) 05/19/2018 Crohn's disease of both small and large intestine ([facility]) 04/06/2013 Past Medical History: Diagnosis Date Anxiety Crohn's disease ([facility]) ([facility]) dx 2006 Past Surgical History: Procedure Laterality Date ABCESS DRAINAGE 04/06/201301/17 ANAL FISTULOTOMY 08/22/2013 BOWEL RESECTION 2022 ileocolic with diverting colostomy Allergies Allergen Reactions Mercaptopurine Analogues (Thiopurines) Joint pain Severe gout like joint pain that starts within days of taking medicine Med List Status: Nurse Complete Set By: Basilia Wray RN at 04/09/2024 10:21 AM Taking? Last Dose Start Date End Date Provider dicyclomine (BENTYL) 20 mg tablet Past Week 06/14/23 -- Paulina Jones MD Take 1 tablet (20 mg total) by mouth 4 (four) times a day as needed (cramping) ergocalciferol (VITAMIN D) 50,000 unit capsule Past Month 01/06/24 -- Parker De La Cruz MD Take 1 capsule (50,000 Units total) by mouth every 30 (thirty) days hyoscyamine (LEVSIN) 0.125 mg SL tablet () -- 02/08/23 02/08/24 Paulina Jones MD Take 1 tablet (0.125 mg total) by mouth every 6 (six) hours as needed for cramping or diarrhea Dissolve tab under the tongue sodium chloride 0.9 %, flush, (SALINE FLUSH INJ) -- -- -- Melissa Gallardo MD sodium, potassium & mag sulfates (SUPREP BOWEL KIT) 17.5-3.13-1.6 gram recon soln 04/09/2024 02/15/24 -- Tahir Cardoso MD Take first bottle at 6 PM, take the second bottle 6 hours prior to arrival vedolizumab (ENTYVIO) 300 mg recon soln Past Week 08/03/23 -- Parker De La Cruz MD Infuse 5 mL (300 mg total) into a venous catheter every 8 (eight) weeks Infused by: [facility] Home Care ([facility] order in [facility] under 'Procedures' tab). Current Facility-Administered Medications: ondansetron (ZOFRAN) injection 4 mg, 4 mg, intravenous, Q6H PRN sodium chloride 0.9% flush 0.5-20 mL, 0.5-20 mL, intra-catheter, PRN sodium chloride 0.9% infusion, 30 mL/hr, intravenous, Continuous, Last Rate: 30 mL/hr at 04/09/24 1027, 30 mL/hr at 04/09/24 1027 Social History Tobacco Use Smoking Status Former Current packs/day: 0.00 Types: Cigarettes Quit date: 2004 Years since quittin.4 Smokeless Tobacco Never Alcohol Use: Not At Risk (04/09/2024) AUDIT-C Frequency of Alcohol Consumption: 2-3 times a week Average Number of Drinks: 1 or 2 Frequency of Binge Drinking: Never Substance and Sexual Activity Drug Use No Family History Problem Relation Age of Onset Cancer Maternal Grandmother Diabetes Maternal Grandfather Family history of diabetes mellitus - (Added by TW Conv)/Family history of diabetes mellitus - (Added by TW Conv) Colon cancer Neg Hx Crohn's disease Neg Hx Ulcerative colitis Neg Hx Vitals: 04/09/24 1010 04/09/24 1020 BP: (!) 177/95 Pulse: 54 Resp: 13 Temp: 36.2 ??C (97.2 ??F) SpO2: 95% PT: No results found for requested labs within last 30 days. INR: No results found for requested labs within last 30 days. APTT: No results found for requested labs within last 30 days. Hgb A1C: No results found for requested labs within last 30 days. CBC RBC: 04/06/2024: 4.77 M/cumm RDW: No results found for requested labs within last 30 days. MCHC: 04/06/2024: 32.7 g/dL MCH: 04/06/2024: 30.2 pg MCV: 04/06/2024: 92.5 fL Hct: 04/06/2024: 44.1 % Hgb: 04/06/2024: 14.4 g/dL WBC: 04/06/2024: 5.6 K/cumm MPV: 04/06/2024: 10.5 fL Platelets: 04/06/2024: 228 K/cumm RDW CV: 04/06/2024: 13.2 % RDW Sd: 04/06/2024: 45.1 fL BMP Glucose: 04/06/2024: 87 mg/dL Calcium: 04/06/2024: 9.6 mg/dL Sodium: 04/06/2024: 142 mmol/L Potassium: 04/06/2024: 4.2 mmol/L CO2: 04/06/2024: 25 mmol/L Chloride: 04/06/2024: 106 mmol/L BUN: 04/06/2024: 12 mg/dL Creatinine: 04/06/2024: 0.99 mg/dL STOP-Bang Total Score: 1 DOS Physical Exam Medical history, medications, and allergies reviewed. Attestation: This PAT evaluation Airway Exam: Mallampati: III Cervical ROM: FROM Cardiovascular Exam: Rate: regular Rhythm: regular Pulmonary Exam: LCTA, bilat Anesthesia Plan ASA 2 My patient is approved for the Anesthesia Controlled Medication protocol when under care of a TEACHERS' AIDE Planned anesthesia: General Informed Consent: Anesthesia plan and risks discussed with patient. Plan and Consent Comments: Hx awareness during some procedure; anxious Consent and Attending signature: I and/or my designee have discussed the anesthesia plan, benefits, possible alternatives, parental presence at time of induction (if indicated), and clinically relevant risks that may include dental injury, unintentional awareness, and/or other complications. The patient and/or parent/legal guardian understand, and agree to proceed. All questions answered. documented in this encounter Plan of Treatment Upcoming Encounters Date Type Department Care Team (Late st Contact Info) Description 11/09/2024 Plan of Care Documentation [address] [place] [address] documented as of this encounter Visit Diagnoses Not on filedocumented in this encounter Administered Medications Inactive Administered Medications - up to 3 most recent administrations Medication Order MAR Action Action Date Dose Rate Site fentaNYL (SUBLIMAZE) preservative free injection intravenous, As needed, Starting on Tue04/09/24 at 1144, Anesthesia Intra-op Given 04/09/2024 11:57 AM CDT 50 mcg Given 04/09/2024 11:44 AM CDT 50 mcg glucagon injection intravenous, Administer over 1 Minutes, As needed, Starting on Tue04/09/24 at 1202, Anesthesia Intra-op Given 04/09/2024 12:02 PM CDT 0.5 mg lidocaine (XYLOCAINE) 20 mg/mL (2 %) injection intravenous, As needed, Starting on Tue04/09/24 at 1147, Anesthesia Intra-op, Indications: Administration of Local AnesthesiaIndications:Administration of Local Anesthesia Given 04/09/2024 11:47 AM CDT 5 mL propofoL (DIPRIVAN) 10 mg/mL IV intravenous, As needed, Starting on Tue04/09/24 at 1147, Anesthesia Intra-op Given 04/09/2024 12:15 PM CDT 30 mg Given 04/09/2024 12:11 PM CDT 50 mg Given 04/09/2024 12:06 PM CDT 50 mg sodium chloride 0.9% infusion 30 mL/hr, intravenous, Continuous, Starting on Tue04/09/24 at 1045, Pre-Procedure (GI) Restarted 04/09/2024 12:00 PM CDT Rate/Dose Verify 04/09/2024 11:37 AM CDT 30 mL/ hr New Bag 04/09/2024 10:27 AM CDT 30 mL/hr 30 mL/hr documented in this encounter Care Teams Wad Printing Machine Operator Relationship Specialty Start Date End Date Emmanuel Wesley DO PCP - General Internal Medicine 12/11/21 documented as of this encounter
--- OUTSIDE RECORDS SUMMARY | 2024-11-11 19:10 | XMS_ITS | Encounter Summary ---
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 5 mL 5 08/03/2023 4 documented as of this encounter Discharge Disposition Disposition Code Departure Means Destination Discharge to home or self care documented in this encounter Miscellaneous Notes * Result Encounter Note - Parker De La Cruz MD - 04/06/2024 4:16 PM CDT Stable mild elevation of transaminases. Monitor. documented in this encounter Plan of Treatment Upcoming Encounters Date Type Department Care Team (Late st Contact Info) Description 11/09/2024 Plan of Care Documentation [facility] Home Health - [address] [address] [address] [place] [address] documented as of this encounter Procedures Procedure Name Priority Date/Time Associated Diagnosis Comments GLUCOSE, RANDOM (OUTREACH) Routine 04/06/2024 12:40 PM CDT EGFR Routine 04/06/2024 12:40 PM CDT DIFFERENTIAL AUTO Routine 04/06/2024 12: 40 PM CDT COMPREHENSIVE METABOLIC PANEL WITHOUT GLUCOSE (OUTREACH) Routine 04/06/2024 12:40 PM CDT CBC WITH AUTO DIFFERENTIAL Routine 04/06/2024 12:40 PM CDT VITAMIN D 25 HYDROXY Routine 04/06/2024 12:40 PM CDT CRP (ACUTE PHASE) Routine 04/06/2024 12: 40 PM CDT documented in this encounter Results * eGFR (04/06/2024 12:40 PM CDT) eGFR >90 >=60 mL/min/1. 73 m2 Comment: Interpretive Data [...] interpretive data was last reviewed 2021. Blood 04/06/2024 12:4 0 PM CDT 04/06/2024 3:27 PM CDT Parker De La Cruz MD LAB BLOOD ORDERABLES Final Result [facility] [place] [address] * Differential, auto (04/06/2024 12:40 PM CDT) Neutrophil abs 3.3 1.5 - 6.5 K/cumm Imm gran abs 0.0 0.0 - 0.1 K/cumm [facility] Lymphocyte abs 1.6 0.8 - 3.3 K/cumm [facility] Monocyte abs 0.5 0.2 - 0.8 K/cumm [facility] Eosinophil abs 0.1 0.0 - 0.5 K/cumm [facility] Basophil abs 0.0 0.0 - 0.1 K/cumm [facility] Neutrophil pct 58.9 % [facility] Comment: Interpretive Data Percent cell count reference ranges are not reported, since discordance with absolute values may lead to misinterpretation of CBC data. Current Interpretive Data was last revised on 2018. Imm gran pct 0.2 % [facility] Comment: Interpretive Data Percent cell count reference ranges are not reported, since discordance with absolute values may lead to misinterpretation of CBC data. Current Interpretive Data was last revised on 2018. Lymphocyte pct 28.8 % [facility] Comment: Interpretive Data Percent cell count reference ranges are not reported, since discordance with absolute values may lead to misinterpretation of CBC data. Current Interpretive Data was last revised on 2018. Monocyte pct 9.5 % [facility] Comment: Interpretive Data Percent cell count reference ranges are not reported, since discordance with absolute values may lead to misinterpretation of CBC data. Current Interpretive Data was last revised on 2018. Eosinophil pct 2.2 % [facility] Comment: Interpretive Data Percent cell count reference ranges are not reported, since discordance with absolute values may lead to misinterpretation of CBC data. Current Interpretive Data was last revised on 2018. Basophil pct 0.4 % [facility] Comment: Interpretive Data Percent cell count reference ranges are not reported, since discordance with absolute values may lead to misinterpretation of CBC data. Current Interpretive Data was last revised on 2018. Blood 04/06/2024 12:4 0 PM CDT 04/06/2024 3:03 PM CDT Parker De La Cruz MD LAB BLOOD ORDERABLES Final Result Performing Organization Address [facility] Co de Phone Number [facility] [place] [address] * CRP (acute phase) (04/06/2024 12:40 PM CDT) CRP 4.7 <=10.0 mg/L Blood 04/06/2024 12:4 0 PM CDT 04/06/2024 3:03 PM CDT Parker De La Cruz MD LAB BLOOD ORDERABLES Final Result Performing Organization Address [facility] Co de Phone Number [facility] [place] [address] * Vitamin D 25 hydroxy (04/06/2024 12:40 PM CDT) Vitamin D 25-OH 46 30 - 80 ng/mL Blood 04/06/2024 12:4 0 PM CDT 04/06/2024 3:03 PM CDT Parker De La Cruz MD LAB BLOOD ORDERABLES Final Result Performing Organization Address [facility] Co de Phone Number [facility] [place] [address] * CBC with auto differential (04/06/2024 12:40 PM CDT) [facility] WBC 5.6 3.8 - 9.9 K/cumm Hgb 14.4 13.0 - 17.5 g/dL [facility] Hct 44.1 38.9 - 50.3 % [facility] Plt 228 150 - 400 K/cumm [facility] MPV 10.5 9.1 - 12.3 fL [facility] RBC 4.77 4.30 - 5.80 M/cumm [facility] MCV 92.5 81.3 - 96.4 fL [facility] MCH 30.2 27.1 - 33.3 pg [facility] MCHC 32.7 32.3 - 35.7 g/dL [facility] RDW CV 13.2 11.1 - 14.9 % [facility] RDW SD 45.1 35.7 - 48.1 fL [facility] NRBC abs 0.00 0.00 - 0.01 K/cumm [facility] Blood 04/06/2024 12:4 0 PM CDT 04/06/2024 3:03 PM CDT Parker De La Cruz MD LAB BLOOD ORDERABLES Final Result [facility] [place] [address] * Glucose, random (Outreach) (04/06/2024 12:40 PM CDT) [facility] Glucose 87 70 - 199 mg/dL Comment: Interpretive Data [...] interpretive data was last revised 2022. Blood 04/06/2024 12:4 0 PM CDT 04/06/2024 3:03 PM CDT Parker De La Cruz MD LAB BLOOD ORDERABLES Final Result Performing Organization Address City/[facility]/ZIP Co de Phone Number [facility] [place] [address] * (ABNORMAL) Comprehensive metabolic panel, without glucose (Outreach) (04/06/2024 12:40 PM CDT) Sodium 142 135 - 145 mmol/L Potassium, pl 4.2 3.3 - 4.9 mmol/L [facility] Chloride 106 97 - 110 mmol/L [facility] CO2 25 22 - 32 mmol/L [facility] Anion gap 11 2 - 15 mmol/L [facility] BUN 12 6 - 25 mg/dL [facility] Creatinine 0.99 0.80 - 1.30 mg/dL [facility] Calcium 9.6 8.5 - 10.3 mg/dL [facility] Protein, pl 7.5 6.5 - 8.5 g/dL [facility] Albumin 4.8 3.5 - 5.0 g/dL [facility] Bilirubin, total 0.8 0.1 - 1.2 mg/dL [facility] Alk phos 62 40 - 130 Units/L [facility] AST 65(H) 10 - 50 Units/L [facility] ALT 93(H) 7 - 55 Units/L [facility] Blood 04/06/2024 12:4 0 PM CDT 04/06/2024 3:03 PM CDT Parker De La Cruz MD LAB BLOOD ORDERABLES Final Result Performing Organization Address [facility]/ZIP Co de Phone Number [facility] [place] [address] documented in this encounter Visit Diagnoses Not on filedocumented in this encounter Care Teams Blister Rust Eradicator Relationship Specialty Start Date End Date Emmanuel Wesley DO PCP - General Internal Medicine 12/11/21 documented as of this encounter
--- OUTSIDE RECORDS SUMMARY | 2024-11-11 19:10 | XMS_ITS | Encounter Summary ---
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 5 mL 5 08/03/2023 4 documented as of this encounter Discharge Disposition Disposition Code Departure Means Destination Discharge to home or self care documented in this encounter Miscellaneous Notes * Result Encounter Note - Parker De La Cruz MD - 07/30/2024 11:59 PM CDT Liver tests have improved Triglycerides are up. He should discuss lipids with PCP. documented in this encounter Plan of Treatment Upcoming Encounters Date Type Department Care Team (Late st Contact Info) Description 11/09/2024 Plan of Care Documentation [facility] - [address] [place] [address] documented as of this encounter Procedures Procedure Name Priority Date/Time Associated Diagnosis Comments GLUCOSE, RANDOM (OUTREACH) STAT 07/30/2024 12:10 PM CDT EGFR STAT 07/30/2024 12:10 PM CDT DIFFERENTIAL AUTO STAT 07/30/2024 12: 10 PM CDT COMPREHENSIVE METABOLIC PANEL WITHOUT GLUCOSE (OUTREACH) STAT 07/30/2024 12:10 PM CDT CBC WITH AUTO DIFFERENTIAL STAT 07/30/2024 12:10 PM CDT CRP (ACUTE PHASE) STAT 07/30/2024 12: 10 PM CDT LIPID PANEL STAT 07/30/2024 12:10 PM CDT documented in this encounter Results * eGFR (07/30/2024 12:10 PM CDT) eGFR 85 >=60 mL/min/1. 73 m2 Comment: Interpretive Data [...] interpretive data was last reviewed 2021. Blood 07/30/2024 12:1 0 PM CDT 07/30/2024 4:30 PM CDT Parker De La Cruz MD LAB BLOOD ORDERABLES Final Result [facility] [address] [facility] [address] [place] [address] * Differential, auto (07/30/2024 12:10 PM CDT) Pathologist [facility] Neutrophil abs 3.6 1.5 - 6.5 K/cumm Imm gran abs 0.0 0.0 - 0.1 K/cumm [facility] Lymphocyte abs 2.1 0.8 - 3.3 K/cumm [facility] Monocyte abs 0.4 0.2 - 0.8 K/cumm [facility] Eosinophil abs 0.1 0.0 - 0.5 K/cumm [facility] Basophil abs 0.0 0.0 - 0.1 K/cumm [facility] Neutrophil pct 57.4 % [facility] Comment: Interpretive Data Percent cell count reference ranges are not reported, since discordance with absolute values may lead to misinterpretation of CBC data. Current Interpretive Data was last revised on 2018. Imm gran pct 0.5 % [facility] Comment: Interpretive Data Percent cell count reference ranges are not reported, since discordance with absolute values may lead to misinterpretation of CBC data. Current Interpretive Data was last revised on 2018. Lymphocyte pct 34.5 % [facility] Comment: Interpretive Data Percent cell count reference ranges are not reported, since discordance with absolute values may lead to misinterpretation of CBC data. Current Interpretive Data was last revised on 2018. Monocyte pct 6.3 % [facility] Comment: Interpretive Data Percent cell count reference ranges are not reported, since discordance with absolute values may lead to misinterpretation of CBC data. Current Interpretive Data was last revised on 2018. Eosinophil pct 1.0 % [facility] Comment: Interpretive Data Percent cell count reference ranges are not reported, since discordance with absolute values may lead to misinterpretation of CBC data. Current Interpretive Data was last revised on 2018. Basophil pct 0.3 % [facility] Comment: Interpretive Data Percent cell count reference ranges are not reported, since discordance with absolute values may lead to misinterpretation of CBC data. Current Interpretive Data was last revised on 2018. Blood 07/30/2024 12:1 0 PM CDT 07/30/2024 4:28 PM CDT us Parker De La Cruz MD LAB BLOOD ORDERABLES Final Result [facility] [address] [facility] [address] [place] [address] * CBC with auto differential (07/30/2024 12:10 PM CDT) WBC 6.2 3.8 - 9.9 K/cumm Hgb 14.0 13.0 - 17.5 g/dL [facility] Hct 40.8 38.9 - 50.3 % [facility] Plt 227 150 - 400 K/cumm [facility] MPV 10.0 9.1 - 12.3 fL [facility] RBC 4.47 4.30 - 5.80 M/cumm [facility] MCV 91.3 81.3 - 96.4 fL [facility] MCH 31.3 27.1 - 33.3 pg [facility] MCHC 34.3 32.3 - 35.7 g/dL [facility] RDW CV 12.7 11.1 - 14.9 % [facility] RDW SD 41.6 35.7 - 48.1 fL [facility] NRBC abs 0.00 0.00 - 0.01 K/cumm [facility] Blood 07/30/2024 12:1 0 PM CDT 07/30/2024 4:28 PM CDT us Parker De La Cruz MD LAB BLOOD ORDERABLES Final Result [facility] [address] [facility] [address] [place] [address] * (ABNORMAL) Lipid panel (07/30/2024 12:10 PM CDT) Cholesterol 219(H) 30 - 199 mg/dL Comment: Interpretive Data Ages < or = 19 years ??Acceptable: ? <170 mg/dL ??Borderline high: ??170-199 mg/dL ??High: ? >or= 200 mg/dL Ages > or = 20 years ??Desirable: ?<200 mg/dL ??Borderline high: ??200-239 mg/dL ??High: ? >or= 240 mg/dL Literature References: 1. Expert Panel on Integrated Guidelines for Cardiovascular Health and Risk Reduction in Children and Adolescents. Pediatrics 2011;128:S213 2. NCEP Expert Panel. Circulation 2004;110:227 Current Interpretive Data was last revised on 2018. Triglycerides 273(H) <=149 mg/dL [facility] Comment: Interpretive Data Ages < or = 9 years ??Acceptable: ? <75 mg/dL ??Borderline high: ??75-99 mg/dL ??High: ? >or= 100 mg/dL Ages 10 to 20 years ??Acceptable: ? <90 mg/dL ??Borderline high: ??90-129 mg/dL ??High: ? >or= 130 mg/dL Ages > or = 20 years ??Desirable: ?<150 mg/dL ??Borderline high: ??150-199 mg/dL ??High: ? 200-499 mg/dL ?Very high: ?? >or= 499 mg/dL Literature References: 1. Expert Panel on Integrated Guidelines for Cardiovascular Health and Risk Reduction in Children and Adolescents. Pediatrics 2011;128:S213 2. NCEP Expert Panel. Circulation 2004;110:227 Current Interpretive Data was last revised on 2018. HDL 34(L) >=40 mg/dL [facility] Comment: Interpretive Data Ages < or = 19 years ??Acceptable: ? >45 mg/dL ??Borderline low: ?? 40-45 mg/dL ??Low: ? <40 mg/dL Ages > or = 20 years ??Desirable: ?>or= 60 mg/dL ??Low: ? <40 mg/dL Literature References: 1. Expert Panel on Integrated Guidelines for Cardiovascular Health and Risk Reduction in Children and Adolescents. Pediatrics 2011;128:S213 2. NCEP Expert Panel. Circulation 2004;110:227 Current Interpretive Data was last revised on 2018. LDL, calculated 136(H) <=129 mg/dL [facility] Comment: Interpretive Data Ages < or = 19 years ??Acceptable: ? <110 mg/dL ??Borderline high: ??110-129 mg/dL ??High: ?>or= 130 mg/dL Ages > or = 20 years ??Optimal: ? <100 mg/dL ??Near optimal: ?100-129 mg/dL ??Borderline high: ?? 130-159 mg/dL ??High: ?>160 mg/dL Calculated using the Michael LDL-C estimating equation. This equation was implemented on 2024. Prior to this date LDL-C was estimated using the Friedewald equation. Literature References: 1. Expert Panel on Integrated Guidelines for Cardiovascular Health and Risk Reduction in Children and Adolescents. Pediatrics 2011;128:S213 2. NCEP Expert Panel. Circulation 2004;110:227 3. Michael Pierre et al. KATHRINE Cardiol. 2019March 07;5(5):540-548. doi: 10.1001/jamacardio.2020.0013 Current Interpretive Data was last revised on 2024. Non-HDL Cholesterol 185 mg/dL [facility] Comment: Interpretive Data Ages < or = 19 years ??Acceptable: ?<120 mg/dL ??Borderline high: ??120-144 mg/dL ??High: ?>145 mg/dL Ages > or = 20 years ??When triglycerides are >200 mg/dL, Non-HDL cholesterol is a secondary target of ? therapy with treatment goals that are 30 mg/dL greater than the LDL cholesterol target. ? Literature References: 1. Expert Panel on Integrated Guidelines for Cardiovascular Health and Risk Reduction in Children and Adolescents. Pediatrics 2011;128:S213 2. NCEP Expert Panel. Circulation 2004;110:227 Current Interpretive Data was last revised on 2018. Chol/HDL ratio 6 [facility] Blood 07/30/2024 12:1 0 PM CDT 07/30/2024 4:27 PM CDT us Parker De La Cruz MD LAB BLOOD ORDERABLES Final Result [facility] [address] [facility] [address] [place] [address] * CRP (acute phase) (07/30/2024 12:10 PM CDT) CRP 1.2 <=10.0 mg/L Blood 07/30/2024 12:1 0 PM CDT 07/30/2024 4:27 PM CDT Parker De La Cruz MD LAB BLOOD ORDERABLES Final Result Performing Organization Address [facility] Co de Phone Number [facility] [place] [address] * Glucose, random (Outreach) (07/30/2024 12:10 PM CDT) Glucose 82 70 - 199 mg/dL Comment: Interpretive Data [...] interpretive data was last revised 2022. Blood 07/30/2024 12:1 0 PM CDT 07/30/2024 4:27 PM CDT Parker De La Cruz MD LAB BLOOD ORDERABLES Final Result Performing Organization Address [facility] de Phone Number [facility] [place] [address] * (ABNORMAL) Comprehensive metabolic panel, without glucose (Outreach) (07/30/2024 12:10 PM CDT) Sodium 141 135 - 145 mmol/L Potassium, pl 4.2 3.3 - 4.9 mmol/L [facility] Chloride 105 97 - 110 mmol/L [facility] CO2 27 22 - 32 mmol/L [facility] Anion gap 9 2 - 15 mmol/L [facility] BUN 13 6 - 25 mg/dL [facility] Creatinine 1.10 0.80 - 1.30 mg/dL [facility] Calcium 9.3 8.5 - 10.3 mg/dL [facility] Protein, pl 7.0 6.5 - 8.5 g/dL [facility] Albumin 4.5 3.5 - 5.0 g/dL [facility] Bilirubin, total 0.7 0.1 - 1.2 mg/dL [facility] Alk phos 39(L) 40 - 130 Units/L [facility] AST 38 10 - 50 Units/L [facility] ALT 60(H) 7 - 55 Units/L [facility] Blood 07/30/2024 12:1 0 PM CDT 07/30/2024 4:27 PM CDT Parker De La Cruz MD LAB BLOOD ORDERABLES Final Result [facility] [address] [facility] [place] [address] documented in this encounter Visit Diagnoses Not on filedocumented in this encounter Care Teams Electro Winning Operator Relationship Specialty Start Date End Date Emmanuel Wesley DO PCP - General Internal Medicine 12/11/21 documented as of this encounter
--- OUTSIDE RECORDS SUMMARY | 2024-11-11 19:10 | XMS_ITS | Encounter Summary ---
Author Organization [facility] Address [address] [place] [address] Phone Care Team Providers Care Expressive Therapist Name Role Phone Emmanuel Wesley DO Primary Care Provider [phone]- [phone] Encounter Details Date Type Department Care Team (Late st Contact Info) Description 01/13/2024 8:30 AM GREENBELT Telemedicine [facility] [address] [place] [address] Medical Office Building [address] [place] [address] Cordell Diaz MD [address] [place] [address] Crohn's disease of small and large intestines with complication (HCC) (Primary Dx); Colostomy in place (CMS/HCC) (HCC) Social History Tobacco Use Types Packs/Day Years [...] on file 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 [facility] Cordell Diaz MD, FACP, FACG, AGAXimena, BEAU pigment processor Subjective NAME: Ranjit Peralta : 1980 DOS: 01/13/2024 This was a telemedicine visit with Ranjit Peralta alone which took place via Real-time video connection (InTouch, Zoom or similar). During the visit, I was located in the office and the patient was located home in the [facility]. The patient visit started at 831 and ended at 915. My total encounter time on 01/13/2024 was 44 minutes which was spent in the activities documented in the note. Thisincludes time spent prior to the visit and after the visit in direct care of the patient. This timedoes not include time spent in any separately reportable services.. The patient: has been informed that the visit may not be secure and acknowledged the information. The option of participating in a telephone or video visit during [facility] explained to them. After being given an opportunity to ask questions about and discuss this type of visit, they verbally consented to proceeding with the telephone/video visit and understand thatthis service replaces an office visit. Cordell Diaz MD Referred here Primary Care Physician: Emmanuel Wesley DO Consult requested by: Parker De La Cruz MD Chief Complaint: CD HPI Ranjit Peralta, is a 43 y.o.male who presents for same with diverting ileostomy. 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 Discussed the fact that life is bettter now than before the stoma. He is wearing a closed end appliance and may do better with less cost with open ended appliance. Discussed activated charcoal might help the gas and nil odor help the aroma. Has a peristomal hernia and may try the coloplast convex flip. Would like to consider re connection at some time inthe future but certainly not now. Son treated for leukemia. He is self conscious of the noise that the stoma sometimes makes especially in a meeting. Past Medical History: Diagnosis Date Anxiety Crohn's disease (CMS/HCC) (HCC) dx 2006 Past Surgical History: Procedure Laterality Date ABCESS DRAINAGE 04/06/201301/17 ANAL FISTULOTOMY 08/22/2013 Patient Active Problem List Diagnosis Date Noted Healthcare maintenance 12/27/2023 Overview Note: Immunizations: Influenza annual Pneumococcus s/p PCV 13 x 2, needs PCV 20 Zoster recommend HBV immune Covid vaccinated Skin cancer screening: consider referral to dermatology to discuss screening strategy Bone health: DEXA: at diagnosis. Check vitamin D CRC screenin years after diagnosis, then every 1-3 years. For distal UC do the same with biopsies to restage extent. Encounter for examination of potential donor of organ and tissue 05/09/2023 High risk medications (not anticoagulants) long-term use 10/10/2018 Stricture intestinal (CMS/HCC) (HCC) 10/10/2018 Need for 23-polyvalent pneumococcal polysaccharide vaccine 10/10/2018 Crohn's disease with complication ([facility]) 05/19/2018 Overview Note: Year of diagnosis: 2006. Year symptoms began: 2006. Phenotype: Stricturing (B2) with perianal disease. Distribution: ileocolonic (L3) without upper GI disease (L4). Extraintestinal manifestations: none. Complications: perianal abscess, SBO. Prior surgeries: . EUA x 3with setons (Shanae) 12/24/2022 Laparoscopic ileocolic resection with primary stapled [id number] functional end-to-end anastomosis between the mid ileum [...] 12/24/2022 Laparoscopic ileocolic resection with primary stapled [id number] functional end-to-end anastomosis between the mid ileum and the ascending colon, diverting end-sigmoid colostomy (Jovanni) Continued vedolizumab postop Assessment & Plan Note: Seems ok with the stoma but self conscious about sounds/smells. At times. Explained that normal people's gi tracts can make noise or pass gas. Offered support through the [facility]. Crohn's disease of both small and large intestine ([facility]) 04/06/2013 Current Outpatient Medications Medication Sig Dispense Refill dicyclomine (BENTYL) 20 mg tablet Take 1 tablet (20 mg total) by mouth 4 (four) times a day as needed (cramping) 120 tablet 3 ergocalciferol (VITAMIN D) 50,000 unit capsule Take 1 capsule (50,000 Units total) by mouth every 30 (thirty) days 3 capsule 3 hyoscyamine (LEVSIN) 0.125 mg SL tablet Take 1 tablet (0.125 mg total) by mouth every 6 (six) hoursas needed for cramping or diarrhea Dissolve tab under the tongue 100 tablet 5 sodium chloride 0.9 %, flush, (SALINE FLUSH INJ) Infuse 10 mL into a venous catheter as needed (line patency). Indications: line patency (Patient not taking: Reported on 06/14/2023) vedolizumab (ENTYVIO) 300 mg recon soln Infuse 5 mL (300 mg total) into a venous catheter every 8 (eight) weeks Infused by: [facility] Home Care ([facility] order in [facility] under 'Procedures' tab). 5 mL 5 No current facility-administered medications for this visit. Mercaptopurine analogues (thiopurines) Family History Problem Relation Age of Onset Cancer Maternal Grandmother Diabetes Maternal Grandfather Family history of diabetes mellitus - (Added by TW Conv)/Family history of diabetes mellitus - (Added by TW Conv) Colon cancer Neg Hx Crohn's disease Neg Hx Ulcerative colitis Neg Hx Social History Tobacco Use Smoking status: Former Current packs/day: 0.00 Types: Cigarettes Quit date: 2004 Years since quittin.1 Smokeless tobacco: Never Substance and Sexual Activity Drug use: No Sexual activity: None Alcohol Use: Not At Risk (12/27/2023) AUDIT-C Frequency of Alcohol Consumption: Never Average Number of Drinks: Patient does not drink Frequency of Binge Drinking: Never ROS Constitutional: Negative. HENT: Negative for sore throat and trouble swallowing. Eyes: Negative. Respiratory: Negative. Cardiovascular: Negative. Gastrointestinal: See HPI Endocrine: Negative. Genitourinary: Negative. Musculoskeletal: Negative. Skin: Negative. Allergic/Immunologic: Negative. Neurological: Negative. Hematological: Negative. Psychiatric/Behavioral: Negative. Breast: Negative. All other systems negative. Results Results for orders placed or performed during the hospital encounter of 12/12/23 Comprehensive metabolic panel, without glucose (Outreach) Result Value Ref Range Sodium 139 135 - 145 mmol/L Potassium, pl 3.8 3.3 - 4.9 mmol/L Chloride 104 97 - 110 mmol/L CO2 22 22 - 32 mmol/L Anion gap 13 2 - 15 mmol/L BUN 12 6 - 25 mg/dL Creatinine 0.93 0.80 - 1.30 mg/dL Calcium 9.4 8.5 - 10.3 mg/dL Protein, pl 6.7 6.5 - 8.5 g/dL Albumin 4.6 3.5 - 5.0 g/dL Bilirubin, total 0.8 0.1 - 1.2 mg/dL Alk phos 49 40 - 130 Units/L AST 53 (H) 10 - 50 Units/L ALT 90 (H) 7 - 55 Units/L Glucose, random (Outreach) Result Value Ref Range Glucose 93 70 - 199 mg/dL CBC with auto differential Result Value Ref Range WBC 5.7 3.8 - 9.9 K/cumm Hgb 14.5 13.0 - 17.5 g/dL Hct 43.3 38.9 - 50.3 % Plt 239 150 - 400 K/cumm MPV 10.6 9.1 - 12.3 fL RBC 4.79 4.30 - 5.80 M/cumm MCV 90.4 81.3 - 96.4 fL MCH 30.3 27.1 - 33.3 pg MCHC 33.5 32.3 - 35.7 g/dL RDW CV 12.8 11.1 - 14.9 % RDW SD 42.3 35.7 - 48.1 fL NRBC abs 0.00 0.00 - 0.01 K/cumm CRP (acute phase) Result Value Ref Range CRP 3.6 <=10.0 mg/L TB test, quantiferon gold Result Value Ref Range Quantiferon TB Gold Negative Negative TB-Nil -0.02 IUnits/mL TB2-Nil -0.02 IUnits/mL Mitogen-Nil 9.93 IUnits/mL NIL 0.07 IUnits/mL Differential, auto Result Value Ref Range Neutrophil abs 3.2 1.5 - 6.5 K/cumm Imm gran abs 0.0 0.0 - 0.1 K/cumm Lymphocyte abs 1.9 0.8 - 3.3 K/cumm Monocyte abs 0.4 0.2 - 0.8 K/cumm Eosinophil abs 0.1 0.0 - 0.5 K/cumm Basophil abs 0.0 0.0 - 0.1 K/cumm Neutrophil pct 56.6 % Imm gran pct 0.2 % Lymphocyte pct 32.9 % Monocyte pct 7.7 % Eosinophil pct 2.1 % Basophil pct 0.5 % eGFR Result Value Ref Range eGFR 104 mL/min/1.73 m2 Assessment/Plan Crohn's disease with complication (HCC) Seems ok with the stoma but self conscious about sounds/smells. At times. Explained that normal people's gi tracts can make noise or pass gas. Offered support through the [employer]. Orders No orders of the defined types were placed in this encounter. Explained to patient that these recommendations are given taking into account given unique circumstances around evolving COVID-19 pandemic. We are taking into account considerations including patientcontacts, age, underlying medical diseases, travel history, and best estimate regarding acuity of this problem when determining the best time for patient to present live in our clinical setting. Cordell Diaz MD, FACP, FACG, BEAU BAILEY pigment processor [facility] Division [facility] [address] [place] [address] Academic office [phone] NBELT documented in this encounter Miscellaneous Notes * Assessment & Plan Note - Cordell Diaz MD - 01/13/2024 9:40 AM GREENBELT Associated Problem(s): Crohn's disease with complication (HCC) Seems ok with the stoma but self conscious about sounds/smells. At times. Explained that normal people's gi tracts can make noise or pass gas. Offered support through the [employer]. NBELT documented in this encounter Plan of Treatment Upcoming Encounters Date Type Department Care Team (Late st Contact Info) Description 11/09/2024 Plan of Care Documentation [facility] - [address] [place] [address] documented as of this encounter Visit Diagnoses Diagnosis Crohn's disease of small and large intestines with complication (HCC)- Primary Colostomy in place (CMS/HCC) (HCC) Colostomy status documented in this encounter Care Teams Expressive Therapist Relationship Specialty Start Date End Date Emmanuel Wesley DO PCP - General Internal Medicine 12/11/21 documented as of this encounter
--- OUTSIDE RECORDS SUMMARY | 2024-11-11 19:10 | XMS_ITS | Encounter Summary ---
Author Organization [facility] Healthcare Address [address] [place] [address] Care Team Providers Care Medical Administrative Specialist Name Role Phone Emmanuel Wesley DO Primary Care Provider [phone]- [phone] Reason for Visit * Reason Comments Crohn's Disease * Medication Authorization (Routine) - Pending Review Specialty Diagnoses / Procedures Referred By Med bazan Referred To Contact Parker De La Cruz MD [address] 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 Gender Identity Not on file Sexual Orientation Not on file documented as of this encounter Last Filed Vital Signs Vital Sign Reading Time Taken Comments Blood Pressure 118/78 04/06/2024 1:25 PM CDT Pulse 51 04/06/2024 1:25 PM CDT Temperature 36.2 ??C (97.2 ??F) 04/06/2024 1:25 PM CD T Respiratory Rate 14 04/06/2024 1:25 PM CDT Oxygen Saturation 100% 04/06/2024 1:25 PM CDT Inhaled Oxygen Concentration - - Weight - - Height 190.5 cm (6' 3 ) 04/06/2024 12:25 PM CDT Body Mass Index - - documented in this encounter Miscellaneous Notes * Home Health Visit Narrative - Franklin Cruz, RN - 04/06/2024 12:00 AM CDT Covid screening performed prior [...] MD if complications occur. Patient verbalizes understanding. Patient's next infusion scheduled for 06/01/2024 @ 1200. documented in this encounter Plan of Treatment Upcoming Encounters Date Type Department Care Team (Late st Contact Info) Description 11/09/2024 Plan of Care Documentation [facility] - [address] [address] [address] [place] [address] documented as of this encounter Visit Diagnoses Not on filedocumented in this encounter Administered Medications Active Administered Medications - up to 3 most recent administrations Medication Order MAR Action Action Date Dose Rate Site sodium chloride 0.9 %, flush, (SALINE FLUSH INJ) 10 mL, intravenous, As needed, line patency, Starting on Tue04/06/24 at 1314, Indications: line patencyIndications:line patency Given 04/06/2024 12:50 PM CDT 10 mL Right Antecubital Inactive Administered Medications - up to 3 most recent administrations Medication Order MAR Action Action Date Dose Rate Site vedolizumab (ENTYVIO) 300 mg recon soln 300 mg, intravenous, Every 8 weeks, First dose on Tue04/06/24 at 1430, Infused by: [facility] Care ([facility] order in Epic under 'Procedures' tab). Given 04/06/2024 12:50 PM CDT 300 mg Right Antecubital documented in this encounter Home Health Visit - Care Plan Visit Details Visit Type -SN Infusion Christa tment Room Discipline -Assisted Problems Problem Description Start Date Status Goals Interve ntions Medications Disciplines: Assisted Management of medications 11/19/2023 Active 1 goal linked to scheduled/documen luisa intervention 1 goal intervention scheduled/documen luisa in this visit Monitor patient's vital signs every home health visit Disciplines: Skilled Disciplines, SN, PT, OT, BOX CAR LOADER, SAFETY AND HEALTH CONSULTANT Monitor patient's vital signs every visit. 11/19/2023 Active 1 goal linked to scheduled/documen luisa intervention 2 goal interventions scheduled/documen luisa in this visit Safety concerns Disciplines: Skilled Disciplines Alteration in safety 11/19/2023 Active 1 goal linked to scheduled/documen luisa intervention 1 goal intervention scheduled/documen luisa in this visit Specialty Medication - General Disciplines: Assisted Skilled Nurse to provide safe assessment of patient prior to use of general specialty medication 11/19/2023 Active - 3 problem interventions scheduled/documen luisa in this visit Medications Disciplines: Assisted Management of IV Medications 11/19/2023 Active - 1 problem intervention scheduled/documen luisa in this visit Need to Collect Specimen Sample Disciplines: Assisted Need to collect specimen sample 11/19/2023 Active - 1 problem intervention scheduled/documen luisa in this visit Learning/Teachin g Needs - IV Therapy Disciplines: Assisted Teaching and learning needs for IV therapy 11/19/2023 Active - 4 problem interventions scheduled/docantoinette moran in this visit Need to Collect Specimen Sample Disciplines: Assisted Need to collect specimen sample 02/08/2024 Active - 1 problem intervention scheduled/documen luisa in this visit Goals [...] Problem:Medications Goal:Understand and follow medication therapy Completed Instructed patient on high-risk medications,specifica lly Entyvio. Patient verbalized understanding. Monitor Vital Signs Description: Monitor blood pressure, pulse, oxygen saturation, respirations, and temperature, Problem:Monitor patient's vital signs every home health visit Goal:Measure vital signs during every home health visit during episode of care Completed Monitored blood pressure, pulse, oxygen saturation, respirations, and temperature, Supervising Discipline notification of abnormal vital signs [...] precautions Completed Patient verbalized no safety concerns. Learning Teaching Needs Description: Skilled Nurse to monitor vital signs throughout the infusion and upon completion of the infusion. Skilled Nurse to assess patient following infusion. If stable, patient may be discharged home. Problem:Specialty Medication - General Completed Skilled Nurse monitored vital signs throughout the infusion and upon completion of the infusion. Skilled Nurse asseseds patient following infusion. Patient was discharged home. [...] WNL. Skilled Nurse obtained IV access for infusion Learning Teaching Needs Description: Skilled Nurse to instruct patient on the potential side effects of the medication. Problem:Specialty Medication - General Completed Skilled Nurse instructed patient on the potential side effects of the medication. Patient verbalized understanding. Instruct on Medication Management Description: Instruct patient in medication administration, purpose, dosages, preparation, scheduling, side effects, food/drug interactions, drug allergies, and potential complications. Medications instructed on: Entyvio. Problem:Medications Completed Instructed patient in medication administration, purpose, dosages, preparation, scheduling, side effects, food/drug interactions, drug allergies, and potential complications. Patient verbalized understanding. Medications instructed on: Entyvio. Lab draw Description: Copied from pharmacy order: Parker De La Cruz MD/ Mp OrtegaD/ Sonali Cruz RN LABs: CBC w/diff, CMP & CRP every 8 weeks (every infusion). T-SPOT.TB or Qunatiferon Gold TB once a year (due November 2023). Problem:Need to Collect Specimen Sample Completed Labs collected as ordered. Grease Monkey pecan picker confirmation #[id number] [facility] Instruct Infection Prevention Description: Instruct patient in strategies to prevent infection: frequent/proper hand-washing techniques, [place] precautions, avoid crowds and persons with known infections, staying current with immunizations, s/s of infection, use of antibiotics and encourage adequate diet and fluid intake. Instruct patient on how to recognize signs and symptoms of infection and when to notify HH nurse and/or physician. Problem:Learning/Teac loraine Needs - IV Therapy Completed Instructed patient in strategies to prevent infection: frequent/proper hand-washing techniques, [place] precautions, avoid crowds and persons with known infections, staying current with immunizations, s/s of infection, use of antibiotics and encourage adequate diet and fluid intake. Instruct patient on how to recognize signs and symptoms of infection and when to notify HH nurse and/or physician. Patient verbalized understanding. IV Pump Instruction Description: Instruct patient to [...] gauze dressing secured with tape to site. Lab draw Description: Recv'd 01/06/24 FOC: Parker De La Cruz MD/Christina Chou, RN/Cameron Looney, Pharm D/C.Anette FLORES One time draw: Vitamin D hydroxy with next Entyvio infusion Problem:Need to Collect Specimen Sample Completed Labs collected as ordered. Grease Monkey pecan picker confirmation #[id number] [facility] documented in this encounter Care Teams Medical Administrative Specialist Relationship Specialty Start Date End Date Emmanuel Wesley DO PCP - General Internal Medicine 12/11/21 documented as of this encounter
--- OUTSIDE RECORDS SUMMARY | 2024-11-11 19:10 | XMS_ITS | Encounter Summary ---
Author Organization [facility] Address [address] [place] [address] Care Team Providers Care Clay Dry Press Operator Name Role Phone Emmanuel Wesley DO Primary Care Provider [phone]- [phone] Reason for Referral * MRI/CAT/PET Scan (Routine) - Closed Specialty Diagnoses / Procedures Referred By Med bazan Referred To Contact Radiology Diagnoses Crohn's disease of small and large intestines with complication (HCC) Procedures CT Abdomen and Pelvis Enterography W Contrast Parker De La Cruz MD [address] [place] [address] Phone: tel: fax: [phone] [place] [phone] Referral ID Status Reason Start Date Expiration Date Visits Re quested Visits Authorized [id number] Closed 01/23/2024 01/25/2025 1 1 Reason for Visit * MRI/CAT/PET Scan (Routine) - Closed Specialty Diagnoses / Procedures Referred By Med bazan Referred To Contact Radiology Diagnoses Crohn's disease of small and large intestines with complication (HCC) Procedures CT Abdomen and Pelvis Enterography W Contrast Parker De La Cruz MD [address] [place] [address] Phone: tel: fax: [phone] [place] [phone] Referral ID Status Reason Start Date Expiration Date Visits Re quested Visits Authorized [id number] Closed 01/23/2024 01/25/2025 1 1 Encounter Details Date Type Department Care Team (Latest Contact Info) Description 02/07/2024 9:59 AM CDT - 02/07/2024 11:59 PM CDT Hospital Encounter [facility] [address] [address] Crohn's disease of small and large intestines with complication (HCC) Discharge Disposition: Discharge to home or [...] on file 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 5 mL 5 08/03/2023 4 documented as of this encounter Discharge Disposition Disposition Code Departure Means Destination Discharge to home or self care documented in this encounter Miscellaneous Notes * Result Encounter Note - Parker De La Cruz MD - 02/07/2024 11:59 PM CDT Spoke with pt. Concern for anastomotic recurrence. Schedule c scope and flex sig. Reach out to his surgeon about the seroma. * Result Encounter Note - Parker De La Cruz MD - 02/07/2024 11:[address] here. He has a peristomal hernia and an anastomotic stricture causing an obstruction. Spoke with pt. He denies abd, n/v. Will have Dr. Koroma perform colonoscopy with dilation. Likely needs to switch from vedolizumab, likely to rinvoq. documented in this encounter Plan of Treatment Upcoming Encounters Date Type Department Care Team (Late st Contact Info) Description 11/09/2024 Plan of Care Documentation [facility] [address] [place] [address] documented as of this encounter Procedures Procedure Name Priority Date/Time Associated Diagnosis Comments CT ENTEROGRAPHY W CONTRAST Schedule Routine, Read Routine (OP Routine) 02/07/2024 11:36 AM CDT Crohn's disease of small and large intestines with complication (HCC) documented in this encounter Results * CT Abdomen and Pelvis Enterography W Contrast (02/07/2024 11:36 AM CDT) Anatomical Region Laterality Modality Abdomen N/A Computed Tomogra phy 02/09/2024 5:33 AM CDT Narrative 02/09/2024 5:46 AM CDT EXAM DESCRIPTION: ?? CT ENTEROGRAPHY W CONTRAST REASON FOR STUDY: ?? Crohn's disease ?? Dx crohn's 2007. ??Sx colostomy placement. C/o abd cramping 1-2 days. ?? TECHNIQUE: CT scan of the abdomen and pelvis performed ??with ??intravenous and neutral oral contrast using helical scanning technique with dynamic intravenous contrast injection. ?? Arterial and portal venous phase timings were utilized. ?? Reconstructed coronal and sagittal MPR images reviewed. All images stored on PACS. Automated exposure control was used as a dose optimization technique for this examination. CONTRAST TYPE/DOSE: ?? 100mL of IOVERSOL 350 MG IODINE/ML INTRAVENOUS SYRINGE ?? injected via ?? intravenous COMPARISON: ?? Comparison is made to prior MR enterography of January 07, 2020. FINDINGS: LOWER CHEST: ??There is bibasilar atelectasis. ??There is a small hiatal hernia. LIVER: ??There is diffuse decreased attenuation of the liver consistent with diffuse hepatic steatosis. GALLBLADDER: ??No stones identified. Normal wall. ??No evidence of pericholecystic fluid. ?? Incidental note is made of a Phrygian cap. BILE DUCTS: ??No intrahepatic or extrahepatic ductal dilatation. PANCREAS: ??Normal. SPLEEN: ??Normal size. ??No focal lesions. ADRENALS: ??Normal. KIDNEYS/URINARY TRACT: ??No identified significant cystic or solid masses. No visualized stones. No hydronephrosis or hydroureter. ?? Urinary bladder is unremarkable. VASCULATURE: ??No acute abnormality seen. No abdominal aortic aneurysm. GI: ??There is a small hiatal hernia. ??The stomach appears otherwise normal. ?? Distention of the small bowel is ??suboptimal within the jejunum but satisfactory within the ileum. ??There is mild mucosal enhancement and wall thickening seen of the distal and terminal ileum to the level of the anastomosis with the ascending colon. ??There is mild haziness in the adjacent mesentery. ?? No skip lesions are identified. . ?? No evidence of contrast extravasation into the bowel lumen. ?? There are no strictures, fistulas or abscesses seen. ?? There are scattered diverticula of the distal transverse and descending colon. ??There is a left lower quadrant colostomy. ??There is confluent low-density fluid in the subcutaneous fat surrounding the ostomy. ?? PERITONEUM/MESENTERY: ??There is no free air. ??There is a trace amount of ascites in the pelvis. ?Again, there is mild haziness in the right lower quadrant mesentery. ??There is trace fluid tracking within the central mesentery. LYMPH NODES: ??There are no enlarged lymph nodes seen by CT size criteria. REPRODUCTIVE: ??The prostate and seminal vesicles are unremarkable. MUSCULOSKELETAL: ??No significant abnormality. OTHER: ??No other abnormality. IMPRESSION: Mild mucosal enhancement and wall thickening of the distal and terminal ileum to the level of the anastomosis with the ascending colon consistent with mild acute Crohn's flare. No skip lesions, strictures, fistulas or abscesses are seen. Left lower quadrant colostomy. There is confluent low-density fluid in the subcutaneous fat surrounding the ostomy. This may represent a seroma or resolving hematoma. ??Infection cannot be excluded by imaging. Diffuse hepatic steatosis. Small hiatal hernia. Bibasilar atelectasis. Trace amount of ascites in the pelvis. Diverticulosis of the distal transverse and descending colon without evidence of acute diverticulitis. THIS IS AN ELECTRONICALLY VERIFIED FINAL REPORT 02/09/2024 5:46 AM - Electronically signed by ??Mendy Phillip M.D. SN: D: ??02/09/2024 5:46 AM T: ??02/09/2024 5:46 AM Report ID: [id number] Reading Location: ??[id number] Procedure Note Mendy Phillip MD - 02/09/2024 EXAM DESCRIPTION: CT ENTEROGRAPHY W CONTRAST REASON FOR STUDY: Crohn's disease Dx crohn's 2007. Sx colostomy placement. C/o abd cramping 1-2 days. TECHNIQUE: CT scan of the abdomen and pelvis performed with intravenousand neutral oral contrast using helical scanning technique with dynamic intravenous contrast injection. Arterial and portal venous phase timings were utilized. Reconstructed coronal and sagittal MPR images reviewed.All images stored on PACS. Automated exposure control was used as a dose optimization technique for this examination. CONTRAST TYPE/DOSE: 100mL of IOVERSOL 350 MG IODINE/ML INTRAVENOUSSYRINGE injected via intravenous COMPARISON: Comparison is made to prior MR enterography of January. FINDINGS: LOWER CHEST: There is bibasilar atelectasis. There is a small hiatalhernia. LIVER: There is diffuse decreased attenuation of the liver consistentwith diffuse hepatic steatosis. GALLBLADDER: No stones identified. Normal wall. No evidence of pericholecystic fluid. Incidental note is made of a Phrygian cap. BILE DUCTS: No intrahepatic or extrahepatic ductal dilatation. PANCREAS: Normal. SPLEEN: Normal size. No focal lesions. ADRENALS: Normal. KIDNEYS/URINARY TRACT: No identified significant cystic or solid masses.No visualized stones. No hydronephrosis or hydroureter. Urinary bladder is unremarkable. VASCULATURE: No acute abnormality seen. No abdominal aortic aneurysm. GI: There is a small hiatal hernia. The stomach appears otherwisenormal. Distention of the small bowel is suboptimal within the jejunum but satisfactory within the ileum. There is mild mucosal enhancement and wall thickening seen of the distal and terminal ileum to the level of the anastomosis with the ascending colon. There is mild haziness in theadjacent mesentery. No skip lesions are identified. . No evidence of contrast extravasation into the bowel lumen. There are no strictures, fistulas or abscesses seen. There are scattered diverticula of the distal transverseand descending colon. There is a left lower quadrant colostomy. There is confluent low-density fluid in the subcutaneous fat surrounding theostomy. PERITONEUM/MESENTERY: There is no free air. There is a trace amount of ascites in the pelvis. Again, there is mild haziness in the right lower quadrant mesentery. There is trace fluid tracking within the central mesentery. LYMPH NODES: There are no enlarged lymph nodes seen by CT size criteria. REPRODUCTIVE: The prostate and seminal vesicles are unremarkable. MUSCULOSKELETAL: No significant abnormality. OTHER: No other abnormality. IMPRESSION: Mild mucosal enhancement and wall thickening of the distal and terminalileum to the level of the anastomosis with the ascending colon consistent withmild acute Crohn's flare. No skip lesions, strictures, fistulas or abscessesare seen. Left lower quadrant colostomy. There is confluent low-density fluid inthe subcutaneous fat surrounding the ostomy. This may represent a seroma or resolving hematoma. Infection cannot be excluded by imaging. Diffuse hepatic steatosis. Small hiatal hernia. Bibasilar atelectasis. Trace amount of ascites in the pelvis. Diverticulosis of the distal transverse and descending colon withoutevidence of acute diverticulitis. THIS IS AN ELECTRONICALLY VERIFIED FINAL REPORT 02/09/2024 5:46 AM - Electronically signed by Mendy Phillip M.D. SN: Report ID: [id number] Reading Location: [id number] Parker De La Cruz MD IMG CT PROCEDURES Final Res ult documented in this encounter Visit Diagnoses Diagnosis Crohn's disease of small and large intestines with complication (HCC) documented in this encounter Administered Medications Inactive Administered Medications - up to 3 most recent administrations Medication Order MAR Action Action Date Dose Rate Site citra select suspension 3 Bottle 3 Bottle, oral, Once in imaging, contrast, Starting on e 02/07/24 at 1133, For 1 dose, Shake well Given 02/07/2024 11:33 AM CDT 3 Bottles ioversoL (OPTIRAY 350) syringe 100 mL 100 mL, intravenous, Once in imaging, contrast, Starting on e 02/07/24 at 1131, For 1 dose Contrast Given 02/07/2024 11:34 AM CDT 100 mL documented in this encounter Orders Medications Ordered That Steven ht Not Have Been Administered Count Last Ordered Date First Ordered Date citra select suspension 3 Bottle 1 02/07/20 documented in this encounter Care Teams Clay Dry Press Operator Relationship Specialty Start Date End Date Emmanuel Wesley DO PCP - General Internal Medicine 12/11/21 documented as of this encounter
--- OUTSIDE RECORDS SUMMARY | 2024-11-11 19:10 | XMS_ITS | Encounter Summary ---
Author Organization [facility] Healthcare Address [address] [place] [address] Care Team Providers Care Grounds Supervisor Name Role Phone Emmanuel Wesley DO Primary Care Provider [phone]- [phone] Reason for Visit * Medication Authorization (Routine) - Pending Review Specialty Diagnoses / Procedures Referred By Med bazan Referred To Contact Parker De La Cruz MD [address] [facility] [address] [place] [address] Phone: tel: fax: Referral ID Status Reason Start Date Expiration Date V isits Requested Visits Authorized [id number] Pending Review 06/04/2024 07/04/2025 1 1 Encounter Details Date Type Department Care Team (Latest Contact Info) Description 06/01/2024 12:00 PM CDT Home Care Visit [facility] [address] [address] [address] [place] [address] Shahzad Snell RN SN INFUSION TREATMENT ROOM [...] on file 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 Gender Identity Not on file Sexual Orientation Not on file documented as of this encounter Last Filed Vital Signs Vital Sign Reading Time Taken Comments Blood Pressure 128/76 06/01/2024 1:00 PM CDT Pulse 60 06/01/2024 1:00 PM CDT Temperature 36.4 ??C (97.5 ??F) 06/01/2024 1:00 PM CD T Respiratory Rate 16 06/01/2024 1:00 PM CDT Oxygen Saturation 98% 06/01/2024 1:00 PM CDT Inhaled Oxygen Concentration - - Weight - - Height - - Body Mass Index - - documented in this encounter Miscellaneous Notes * Home Health Plan for Next Visit - Shahzad Snell RN - 06/01/2024 12:00 PM CDT Reason for today's visit: Assessment, labs, PIV and dose med. Discuss plan of care with patient. Discharge planning ongoing. Plan for next visit: Assessment, labs, PIV and dose med documented in this encounter Plan of Treatment Upcoming Encounters Date Type Department Care Team (Late st Contact Info) Description 11/09/2024 Plan of Care Documentation [facility] Home Health - [address] [address] [address] [place] [address] documented as of this encounter Visit Diagnoses Not on filedocumented in this encounter Administered Medications Active Administered Medications - up to 3 most recent administrations Medication Order MAR Action Action Date Dose Rate Site sodium chloride 0.9 %, flush, (SALINE FLUSH INJ) 10 mL, intravenous, As needed, line patency, Starting on Tue06/04/24 at 2151, Indications: line patencyIndications:line patency Given 06/01/2024 1:05 PM CDT 10 mL Given 06/01/2024 12:15 PM CDT 10 mL Inactive Administered Medications - up to 3 most recent administrations Medication Order MAR Action Action Date Dose Rate Site vedolizumab (ENTYVIO) 300 mg recon soln 300 mg, intravenous, Every 8 weeks, First dose on Tue06/04/24 at 2230, Infused by: [facility] Home Care ([facility] order in Epic under 'Procedures' tab). Given 06/01/2024 12:25 PM CDT 300 mg documented in this encounter Home Health Visit - Care Plan Visit Details Visit Type -SN Infusion Christa tment Room Discipline -Fci Problems Problem Description Start Date Status Goals Interve ntions Medications Disciplines: Fci Management of medications 11/19/2023 Active 1 goal linked to scheduled/documen luisa intervention 1 goal intervention scheduled/documen luisa in this visit Monitor patient's vital signs every home health visit Disciplines: Skilled Disciplines, SN, PT, OT, LPN RN HOSPICE, DATA ENTRY COORDINATOR Monitor patient's vital signs every visit. 11/19/2023 Active 1 goal linked to scheduled/documen luisa intervention 1 goal intervention scheduled/documen luisa in this visit Safety concerns Disciplines: Skilled Disciplines Alteration in safety 11/19/2023 Active 1 goal linked to scheduled/documen luisa intervention 1 goal intervention scheduled/documen luisa in this visit Specialty Medication - General Disciplines: Fci Skilled Nurse to provide safe assessment of patient prior to use of general specialty medication 11/19/2023 Active - 3 problem interventions scheduled/documen luisa in this visit Medications Disciplines: Fci Management of IV Medications 11/19/2023 Active - 1 problem intervention scheduled/documen luisa in this visit Need to Collect Specimen Sample Disciplines: Fci Need to collect specimen sample 11/19/2023 Active - 2 problem interventions scheduled/documen luisa in this visit Learning/Teachin g Needs - IV Therapy Disciplines: Fci Teaching and learning needs for IV therapy [...] follow medication therapy Completed SN instructed patient on high-risk medications,specific ally Entyvio. Monitor Vital Signs Description: Monitor blood pressure, pulse, oxygen saturation, respirations, and temperature, Problem:Monitor patient's vital signs every home health visit Goal:Measure vital signs during every home health visit during episode of care Completed VSS, afebrile with O2 sat at 98%. Assess safety Description: Assess patient safety Problem:Safety concerns Goal:Demonstrate use of safety precautions Completed Patient seen in treatment room at our [place] office but reports feeling safe at home and reports no issues. Learning Teaching Needs Description: Skilled Nurse to monitor vital signs throughout the infusion and upon completion of the infusion. Skilled Nurse to assess patient following infusion. If stable, patient may be discharged home. Problem:Specialty Medication - General Completed Patient tolerated the infusion well and reported no problems with last infusion and no medication changes. Patient aware to call SN or MD with any issues or problems. VSS, afebrile with O2 sat at 98%. Pre Medication Assessment Description: Skilled Nurse to complete infusion checklist. Skilled Nurse to monitor vital signs. If patients has a temperature greater than 100 degrees F (37.8 C), notify the pharmacist/physician. Skilled Nurse to obtain IV access for infusion Problem:Specialty Medication - General Completed Patient tolerated last infusion well and reports no problems or medication changes. VSS, afebrile with O2 sat at 98%. Learning Teaching Needs Description: Skilled Nurse to [...] order: Parker De La Cruz MD/ Christina Kramer RN/ Cameron Looney PharmD/ Sonali Cruz RN LABs: Hep B surface antigen, hep B surface antibody, hep B core antibody at next Entyvio infusion ~ 06/01/2024 Problem:Need to Collect Specimen Sample Completed Labs drawn as ordered from IV access after discard and line well flushed after labs. Lab draw Description: Copied from pharmacy order: Parker De La Cruz MD/ Sonali Looney, MpD/ Sonali Cruz, RN LABs: CBC w/diff, CMP & CRP every 8 weeks (every infusion). T-SPOT.TB or Qunatiferon Gold TB once a year (due November 2023). Problem:Need to Collect Specimen Sample Completed Labs drawn as ordered from IV access after discard and line well flushed after labs. Instruct Infection Prevention Description: Instruct patient in strategies to prevent infection: frequent/proper hand-washing techniques, [place] precautions, avoid crowds and persons with known infections, staying current with immunizations, s/s of infection, use of antibiotics and encourage adequate diet and fluid intake. Instruct patient on how to recognize signs and symptoms of infection and when to notify HH nurse and/or physician. Problem:Learning/Teach ing Needs - IV Therapy Completed SN instructed patient in strategies to prevent infection: frequent/proper hand-washing techniques, [place] precautions, avoid crowds and persons with known [...] - IV Therapy Completed Patient has call button and aware to use it for problems or issues, IV Access Care/Maintenance Description: Skilled Nurse will [...] well. documented in this encounter Care Teams Grounds Supervisor Relationship Specialty Start Date End Date Emmanuel Wesley DO PCP - General Internal Medicine 12/11/21 documented as of this encounter
--- OUTSIDE RECORDS SUMMARY | 2024-11-11 19:10 | XMS_ITS | Encounter Summary ---
Author Organization [facility] Address [address] [place] [address] Phone Care Team Providers Care Last Puller Name Role Phone Emmanuel Wesley DO Primary Care Provider [phone]- [phone] Reason for Visit * Reason Onset Date Comments Provider Change - Entyvio Orders 08/03/2023 Encounter Details Date Type Department Care Team (Late st Contact Info) Description 08/03/2023 Documentation [facility] Gastroenterology [address] [facility] Advanced Medicine 12th [place] [address] [place] [address] Eryn Dalton LPN Provider Change - Entyvio Orders Social History Tobacco Use Types Packs/Day Years [...] on file 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 5 mL 5 08/03/2023 4 documented in this encounter Progress Notes * Eryn Dalton LPN - 08/03/2023 7:41 AM CDT Pt's former IBD provider, Dr. Paulina Jones has left the [place]. IOV scheduled with Dr. Parker De La Cruz in 12/2023 who will be taking over management of pt's care from here. Pt's infusion team, [facility], contacted our office requesting an updated Entyvio order. New [facility] Entyvio order placed, available under 'Procedures' tab in [place]. Updated order faxed to [facility] at . -------Fax Transmission Report------- To: Recipient at [phone] Subject: Kunal Peralta - Updated Infusion Order [Secure] Result: The transmission was successful. Explanation: All Pages Ok Pages Sent: 3 Connect Time: 1 minutes, 34 seconds Transmit Time: 08/03/2023 07:48 Transfer Rate: 9600 Status Code: 0000 Retry Count: 0 Job Id: [id number] Unique Id: [id number] Fax Line: 12 Fax Water Chemist: [id number] documented in this encounter Plan of Treatment Upcoming Encounters Date Type Department Care Team (Late st Contact Info) Description 11/09/2024 Plan of Care Documentation [facility] - [address] [place] [address] documented as of this encounter Visit Diagnoses Diagnosis Crohn's disease of both small and large intestine without complication (CMS/HCC) (HCC) documented in this encounter Discontinued Medications Medication Sig Discontinue Reason Start Date End Da te vedolizumab (ENTYVIO) 300 mg recon solnIndications:Crohn's disease of both small and large intestine without complication (CMS/HCC) (HCC) Infuse 5 mL (300 mg total) into a venous catheter as directed To be infused at weeks 0, 2, 6, and then Q8 weeks (reinduction). Infused by: [facility] Home Care ([facility] order in Epic under 'Procedures' tab). Reorder 10/22/2022 08/03/2023 documented as of this encounter Orders Procedures Count Last Ordered Date First Orde red Date ONCBCN OUTPATIENT FACILITY ORDERS 1 023 documented in this encounter Care Teams Last Puller Relationship Specialty Start Date End Date Emmanuel Wesley DO PCP - General Internal Medicine 12/11/21 documented as of this encounter
--- OUTSIDE RECORDS SUMMARY | 2024-11-11 19:10 | XMS_ITS | Encounter Summary ---
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 5 mL 5 08/03/2023 4 documented as of this encounter Discharge Disposition Disposition Code Departure Means Destination Discharge to home or self care documented in this encounter Miscellaneous Notes * Result Encounter Note - Parker De La Cruz MD - 06/01/2024 11:59 PM CDT Transaminases up. Could be from rinvoq but I suspect it is related to fatty liver seen on previous imaging. Transaminases have been elevated intermittently in the past. Continue rinvoq and refer to hepatology. documented in this encounter Plan of Treatment Upcoming Encounters Date Type Department Care Team (Late st Contact Info) Description 11/09/2024 Plan of Care Documentation [facility] - [address] [address] [address] [place] [id number] documented as of this encounter Procedures Procedure Name Priority Date/Time Associated Diagnosis Comments GLUCOSE, RANDOM (OUTREACH) Routine 06/01/2024 12:15 PM CDT EGFR Routine 06/01/2024 12:15 PM CDT DIFFERENTIAL AUTO Routine 06/01/2024 12: 15 PM CDT COMPREHENSIVE METABOLIC PANEL WITHOUT GLUCOSE (OUTREACH) Routine 06/01/2024 12:15 PM CDT CBC WITH AUTO DIFFERENTIAL Routine 06/01/2024 12:15 PM CDT HEPATITIS B CORE ANTIBODY, TOTAL Routine 06/01/2024 12:15 PM CDT HEPATITIS B SURFACE ANTIBODY (IMMUNE STATUS) Routine 06/01/2024 12:15 PM CDT HEPATITIS B SURFACE ANTIGEN Routine 06/01/2024 12:15 PM CDT CRP (ACUTE PHASE) Routine 06/01/2024 12: 15 PM CDT documented in this encounter Results * eGFR (06/01/2024 12:15 PM CDT) eGFR >90 >=60 mL/min/1. 73 [...] interpretive data was last reviewed 2021. Blood 06/01/2024 12:1 5 PM CDT 06/01/2024 3:00 PM CDT us Parker De La Cruz MD LAB BLOOD ORDERABLES Final Result [facility] Department [place] [address] * Differential, auto (06/01/2024 12:15 PM CDT) Pathologist [facility] Neutrophil abs 3.5 1.5 - 6.5 K/cumm Imm gran abs 0.0 0.0 - 0.1 K/cumm [facility] Lymphocyte abs 1.6 0.8 - 3.3 K/cumm [facility] Monocyte abs 0.5 0.2 - 0.8 K/cumm [facility] Eosinophil abs 0.1 0.0 - 0.5 K/cumm [facility] Basophil abs 0.0 0.0 - 0.1 K/cumm [facility] Neutrophil pct 60.2 % [facility] Comment: Interpretive Data Percent cell count reference ranges are not reported, since discordance with absolute values may lead to misinterpretation of CBC data. Current Interpretive Data was last revised on 2018. Imm gran pct 0.3 % [facility] Comment: Interpretive Data Percent cell count reference ranges are not reported, since discordance with absolute values may lead to misinterpretation of CBC data. Current Interpretive Data was last revised on 2018. Lymphocyte pct 27.9 % [facility] Comment: Interpretive Data Percent cell count reference ranges are not reported, since discordance with absolute values may lead to misinterpretation of CBC data. Current Interpretive Data was last revised on 2018. Monocyte pct 8.5 % [facility] Comment: Interpretive Data Percent cell count reference ranges are not reported, since discordance with absolute values may lead to misinterpretation of CBC data. Current Interpretive Data was last revised on 2018. Eosinophil pct 2.4 % [facility] Comment: Interpretive Data Percent cell count reference ranges are not reported, since discordance with absolute values may lead to misinterpretation of CBC data. Current Interpretive Data was last revised on 2018. Basophil pct 0.7 % [facility] Comment: Interpretive Data Percent cell count reference ranges are not reported, since discordance with absolute values may lead to misinterpretation of CBC data. Current Interpretive Data was last revised on 2018. Blood 06/01/2024 12:1 5 PM CDT 06/01/2024 2:48 PM CDT us Parker De La Cruz MD LAB BLOOD ORDERABLES Final Result [facility] Department [place] [address] * Hepatitis B core antibody, total Blood (06/01/2024 12:15 PM CDT) Hep B core IgG/IgM Nonreactive Nonreactive Blood 06/01/2024 12:1 5 PM CDT 06/01/2024 2:49 PM CDT Parker De La Cruz MD LAB MICROBIOLOGY - GENERAL ORDERABLES Final Result Performing Organization Address City/[facility]/ZIP Co de Phone Number [facility] [place] [address] * Hepatitis B surface antibody (immune status) Blood (06/01/2024 12:15 PM CDT) HBsAb (immune status) Reactive Comment:This result is consi stent with immunity to Hepatitis B Virus when used in the setting of routine screening. Current interpretive data was last revised on 22 HBsAb (immune status) index 1,281.0 mIUnits/m L [facility] Blood 06/01/2024 12:1 5 PM CDT 06/01/2024 2:49 PM CDT Parker De La Cruz MD LAB MICROBIOLOGY - GENERAL ORDERABLES Final Result Performing Organization Address City/[facility] Co de Phone Number [facility] Department [place] [address] * Hepatitis B Surface Antigen Blood (06/01/2024 12:15 PM CDT) Pathologist [facility] HepBsAg Nonreactive Nonreactive Blood 06/01/2024 12:1 5 PM CDT 06/01/2024 2:49 PM CDT Parker De La Cruz MD LAB MICROBIOLOGY - GENERAL ORDERABLES Final Result [facility] [place] [address] * CRP (acute phase) (06/01/2024 12:15 PM CDT) Pathologist [facility] CRP 3.6 <=10.0 mg/L Blood 06/01/2024 12:1 5 PM CDT 06/01/2024 2:48 PM CDT Parker De La Cruz MD LAB BLOOD ORDERABLES Final Result Performing Organization Address [facility] de Phone Number [facility] [place] [address] * CBC with auto differential (06/01/2024 12:15 PM CDT) WBC 5.8 3.8 - 9.9 K/cumm Hgb 14.6 13.0 - 17.5 g/dL [facility] Hct 43.8 38.9 - 50.3 % [facility] Plt 190 150 - 400 K/cumm [facility] MPV 11.1 9.1 - 12.3 fL [facility] RBC 4.82 4.30 - 5.80 M/cumm [facility] MCV 90.9 81.3 - 96.4 fL [facility] MCH 30.3 27.1 - 33.3 pg [facility] MCHC 33.3 32.3 - 35.7 g/dL [facility] RDW CV 12.9 11.1 - 14.9 % [facility] RDW SD 42.6 35.7 - 48.1 fL [facility] NRBC abs 0.00 0.00 - 0.01 K/cumm [facility] Blood 06/01/2024 12:1 5 PM CDT 06/01/2024 2:48 PM CDT Parker De La Cruz MD LAB BLOOD ORDERABLES Final Result Performing Organization Address [facility] Co de Phone Number [facility] [place] [address] * Glucose, random (Outreach) (06/01/2024 12:15 PM CDT) Glucose 88 70 - 199 mg/dL Comment: Interpretive Data [...] interpretive data was last revised 2022. Blood 06/01/2024 12:1 5 PM CDT 06/01/2024 2:48 PM CDT us Parker De La Cruz MD LAB BLOOD ORDERABLES Final Result [facility] [place] [address] * (ABNORMAL) Comprehensive metabolic panel, without glucose (Outreach) (06/01/2024 12:15 PM CDT) Sodium 142 135 - 145 mmol/L Potassium, pl 4.0 3.3 - 4.9 mmol/L [facility] Chloride 106 97 - 110 mmol/L [facility] CO2 26 22 - 32 mmol/L [facility] Anion gap 10 2 - 15 mmol/L [facility] BUN 13 6 - 25 mg/dL [facility] Creatinine 1.01 0.80 - 1.30 mg/dL [facility] Calcium 9.0 8.5 - 10.3 mg/dL [facility] Protein, pl 7.0 6.5 - 8.5 g/dL [facility] Albumin 4.3 3.5 - 5.0 g/dL [facility] Bilirubin, total 0.6 0.1 - 1.2 mg/dL [facility] Alk phos 51 40 - 130 Units/L [facility] AST 63(H) 10 - 50 Units/L [facility] ALT 109(H) 7 - 55 Units/L [facility] Blood 06/01/2024 12:1 5 PM CDT 06/01/2024 2:48 PM CDT us Parker De La Cruz MD LAB BLOOD ORDERABLES Final Result Performing Organization Address City/State/[facility] Co de Phone Number [facility] Department [place] [address] documented in this encounter Visit Diagnoses Not on filedocumented in this encounter Care Teams Voice Coach Relationship Specialty Start Date End Date Emmanuel Wesley DO PCP - General Internal Medicine 12/11/21 documented as of this encounter
--- OUTSIDE RECORDS SUMMARY | 2024-11-11 19:10 | XMS_ITS | Encounter Summary ---
Author Organization [facility] Home Care [facility] es Address [address] [place] [address] Phone Care Team Providers Care Rubber Production Machine Operator Name Role Phone Emmanuel Wesley DO Primary Care Provider [phone]- [phone] Reason for Visit * Reason Comments Crohn's Disease * Medication Authorization (Routine) - Closed Specialty Diagnoses / Procedures Referred By Med bazan Referred To Contact Paulina Jones MD [address] [place] [address] Phone: tel: fax: Referral ID Status Reason Start Date Expiration Date Visits Re quested Visits Authorized [id number] Closed 04/28/2023 05/27/2024 1 1 Encounter Details Date Type Department Care Team (Latest Contact Info) Description 04/28/2023 1:00 PM CDT Home Care Visit [facility] [address] [address] [address] [place] [address] Franklin Cruz RN SN INFUSION TREATMENT ROOM [...] on file 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 Gender Identity Not on file Sexual Orientation Not on file documented as of this encounter Last Filed Vital Signs Vital Sign Reading Time Taken Comments Blood Pressure 138/90 04/28/2023 2:18 PM CDT Pulse 60 04/28/2023 2:18 PM CDT Temperature 36.9 ??C (98.5 ??F) 04/28/2023 2:18 PM CD T Respiratory Rate 14 04/28/2023 2:18 PM CDT Oxygen Saturation 99% 04/28/2023 2:18 PM CDT Inhaled Oxygen Concentration - - Weight - - Height 190.5 cm (6' 3 ) 04/28/2023 1:15 PM CDT Body Mass Index - - documented in this encounter Miscellaneous Notes * Home Health Visit Narrative - Franklin Cruz RN - 04/28/2023 12:00 AM CDT Covid screening performed prior to arrival. Assessed patient's vital signs upon arrival for IV infusion of Entyvio. Patient declined ordered pre medications. .PIV started without difficulty. Labs collected at time of insertion. No signs/ symptoms of bleeding, hematoma, or infiltration. Infusion completed without incident. Patient's vital signs assessed upon infusion completion. WNL. Patient declined post infusion observation. PIV removed intact without complications No signs/ symptoms of bleeding or hematoma. Pressure held to site until hemostasis achieved. Gauze and paper tape applied to site. Patient discharged to home with instruction to contact MD if complications occur. Patient verbalizes understanding documented in this encounter Plan of Treatment Upcoming Encounters Date Type Department Care Team (Late st Contact Info) Description 11/09/2024 Plan of Care Documentation [facility] [address] [address] [address] [place] [address] documented as of this encounter Visit Diagnoses Not on filedocumented in this encounter Administered Medications Active Administered Medications - up to 3 most recent administrations Medication Order MAR Action Action Date Dose Rate Site sodium chloride 0.9 %, flush, (SALINE FLUSH INJ) 10 mL, intravenous, As needed, line patency, Starting on Ashlyn 04/28/23 at 1446, Indications: line patencyIndications:line patency Given 04/28/2023 1:45 PM CDT 10 mL Right Forearm Inactive Administered Medications - up to 3 most recent administrations Medication Order MAR Action Action Date Dose Rate Site vedolizumab (ENTYVIO) 300 mg recon soln 300 mg, intravenous, See admin instructions, Starting on Ashlyn 04/28/23 at 1446, To be infused at weeks 0, 2, 6, and then Q8 weeks (reinduction). Infused by: [facility] Home Care ([facility] order in Epic under 'Procedures' tab). Given 04/28/2023 1:45 PM CDT 300 mg Right Forearm documented in this encounter Home Health Visit - Care Plan Visit Details Visit Type -SN Infusion Christa tment Room Discipline -Custodial Problems Problem Description Start Date Status Goals Interventions Specialty Medication - General Disciplines: Custodial SN to provide safe assessment of patient prior to use of general specialty medication 11/25/2022 Active - 3 problem interventions scheduled/documen luisa in this visit Medications Disciplines: Custodial Management of IV Medications 11/25/2022 Active - 2 problem interventions scheduled/documen luisa in this visit Need to Collect Specimen Sample Disciplines: Custodial Need to collect specimen sample 11/25/2022 Active - 1 problem intervention scheduled/documen luisa in this visit Safety concerns Disciplines: Custodial Safety needs related to infusion administration 11/25/2022 Active - 1 problem intervention scheduled/documen luisa in this visit Learning/Teachin g Needs - IV Therapy Disciplines: Custodial Teaching and learning needs for performing home IV therapy 11/25/2022 Active - 7 problem interventions scheduled/documen luisa in this visit Monitor patient's vital signs every home health visit Disciplines: SN, PT, OT, TIRE WORKER, FARMWORKER LIVESTOCK, Skilled Disciplines Monitor patient's vital signs every home health visit. 11/25/2022 Active 1 goal linked to scheduled/docume nted intervention 2 goal interventions scheduled/documen luisa in this visit Goals Goal Associated Problem Outcome Goal Met? Visit Notes Measure vital signs during every home health visit during episode of care Description: Home aco coordinator to measure vital signs during every home health visit during episode of care. Monitor patient's vital signs every home health visit No Interventions Intervention Associated Problem/Goal Status Variance Visit Notes Learning Teaching Needs Description: Skilled Nurse to monitor vital signs throughout the infusion and upon completion of the infusion. Skilled Nurse to assess patient. If patient is stable, patient may be discharged home. Problem:Specialty [...] the pharmacist/physician. Skilled Nurse to obtain IV access. Notify pharmacist when IV access obtained. Problem:Specialty Medication - General Completed Skilled Nurse completed infusion checklist. Skilled Nurse monitored vital signs. All VS WNL. Skilled Nurse obtained IV access for infusion. Learning Teaching Needs Description: Skilled Nurse to instruct patient/caregiver on the potential side effects of the medication. Problem:Specialty Medication - General Completed Skilled Nurse instructed patient on the potential side effects of the medication. Patient verbalized understanding. Instruct medications Description: Instruct patient/caregiver in medication administration, purpose, dosages, preparation, scheduling, side effects, food/drug interactions, storage, drug allergies, and potential complications. Problem:Medications Completed Patient instructed on medication administration, purpose, dosages, preparation, scheduling, side effects, food/drug interactions, and potential complications. Current regimen and compliance reviewed with Patient. Patient verbalizes understanding of treatment regimen and the importance of adherence. Medications taught Entyvio. IV Infusion Description: Instruct patient/caregiver on IV infusion Entyvio. Problem:Medications Completed Instructed patient on IV Entyvio infusion. Patient verbalized understanding. Lab draw Description: Treatment Plan: After initial infusion (week 0), infuse on week 2, 6 and th en every 8 weeks for 52 weeks. LABs: CBC w/diff, HFP every 8 weeks with infusions. Fax results to [phone] & [phone]. Annual LABs: Draw T-SPOT.TB or Quantiferon TB Gold with initial induction. Following pharmacist is Cameron Siegel Problem:Need to Collect Specimen Sample Completed Labs collected as ordered. Railways Assistant flower picker confirmation #[id number] [facility] Instruct on IV complications Description: Instruct patient/caregiver on how to manage breaks in line, signs/symptoms of complications, who to contact for complications and how to contact the nurse, MD and infusion service Problem:Safety concerns Completed Instructed patient on signs/symptoms of complications, who to contact for complications and how to contact the nurse, MD and infusion service Patient verbalized understanding. Instruct Infection Prevention Description: Instruct patient/caregiver in strategies to prevent infection. Instruct patient/caregiver on how to recognize signs and symptoms of infection and when to notify HH nurse and/or physician. Problem:Learning/Tea haresh Needs - IV Therapy Completed Patient instructed on frequent/proper hand-washing techniques, [place] precautions, avoid crowds and persons with known infections, staying current with immunizations, s/s of infection, use of antibiotics and encourage adequate diet and fluid intake. Patient verbalizes understanding of strategies to prevent infection. IV Administration Description: Skilled Nurse to administer medications and flushes as prescribed/needed. Reason for Therapy: IV Entyvio. Problem:Learning/Tea haresh Needs - IV Therapy Completed IV Access Care/Maintenance Description: Skilled Nurse to change line dressing change within 48 hours if there is gauze under the occlusive dressing, dressing is soiled, or non-occlusive. Weekly IV site dressing changes to be performed if no issues. Skilled Nurse to measure line migration and arm circumference at SOC and weekly with dressing change. Skilled Nurse to place disinfecting caps to the end of each line upon completion of infusion/flushes. Problem:Learning/Tea haresh Needs - IV Therapy Completed Skilled Nurse [...] of line: PIV IV Discontinuation Description: Skilled nurse to remove peripheral IV at completion of infusion, per protocol. Problem:Learning/Tea haresh Needs - IV Therapy Completed Skilled Nurse removed PIV following infusion per MD order and facility protocol, verifying catheter is intact, applying pressure to site until hemostasis is achieved and applied small gauze dressing secured with tape to site. Instruct on IV supplies Description: Instruct patient/caregiver in how to gather supplies, how to restock IV supplies in the home, prepare supplies, administer IV medication and disconnect IV medication, inspecting solution and supplies before infusing, and waste disposal. Problem:Learning/Tea haresh Needs - IV Therapy Scheduled Dressing change Description: Skilled Nurse to place peripheral IV for medication administration and for any ordered bloodwork/labs. Skilled Nurse to administer IV medications and flushes and to remove peripheral IV at completion of infusion, ensuring intact catheter, adequate hemostasis, and appropriate dressing to site. Type of line: peripheral IV Problem:Learning/Tea haresh Needs - IV Therapy Scheduled Instruct on IV flush Description: Instruct patient/caregiver in how to perform flushing of IV line according to MD orders or protocol. Problem:Learning/Tea haresh Needs - IV Therapy Scheduled Monitor Vital Signs Description: Monitor blood pressure, pulse, oxygen saturation, respirations Problem:Monitor patient's vital signs every home health [...] O2Sat 88-100%, temporal temp less than 101.5) documented in this encounter Care Teams Rubber Production Machine Operator Relationship Specialty Start Date End Date Emmanuel Wesley DO PCP - General Internal Medicine 12/11/21 documented as of this encounter
--- OUTSIDE RECORDS SUMMARY | 2024-11-11 19:10 | XMS_ITS | Encounter Summary ---
Author Organization [facility] Address [address] [place] [address] Phone Care Team Providers Care Commercial Green Building Designer Name Role Phone Emmanuel Wesley DO Primary Care Provider [phone]- [phone] Encounter Details Date Type Department Care Team (Late st Contact Info) Description 03/04/2023 Orders Only [facility] Gastroenterology [address] [place] [address] [place] [address] Paulina Jones MD [address] [place] [address] Social History Tobacco Use Types Packs/Day Years [...] on file 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 Gender Identity Not on file Sexual Orientation Not on file documented as of this encounter Plan of Treatment Upcoming Encounters Date Type Department Care Team (Late st Contact Info) Description 11/09/2024 Plan of Care Documentation [address] [place] [address] documented as of this encounter Visit Diagnoses Not on filedocumented in this encounter Discontinued Medications Medication Sig Discontinue Reason Start Date End Da te hydrocortisone-pramoxi ne (PROCTOFOAM-HC) rectal foamIndications:Prurit us Ani [The details of the medication are not available because there are pending changes by a home health clinician.] 12/28/2019 03/04/2023 documented as of this encounter Care Teams Commercial Green Building Designer Relationship Specialty Start Date End Date Emmanuel Wesley DO PCP - General Internal Medicine 12/11/21 documented as of this encounter
--- OUTSIDE RECORDS SUMMARY | 2024-11-11 19:10 | XMS_ITS | Encounter Summary ---
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 Infusion given over thirty minutes by PIV. Patient recertified outside of face to face visit. See last visit for most recent assessment. Reviewed insurance, medications and allergies. Order for recertification and care home visits included with pharmacy order on 08/03/2023. documented in this encounter Plan of Treatment Upcoming Encounters Date Type Department Care Team (Late st Contact Info) Description 11/09/2024 Plan of Care Documentation [address] [address] [address] [place] [address] documented as of this encounter Visit Diagnoses Not on filedocumented in this encounter Home Health Visit - Care Plan Visit Details Visit Type -SN Non-OASIS Rec ert Discipline -Jail Problems Problem Description Start Date Status Goals Interve ntions Medications Disciplines: Jail Management of medications 11/19/2023 Active 1 goal linked to scheduled/documen luisa intervention 1 goal intervention scheduled/documen luisa in this visit Monitor patient's vital signs every home health visit Disciplines: Skilled Disciplines, SN, PT, OT, MANAGER HARBOR, CURAM DEVELOPER Monitor patient's vital signs every visit. 11/19/2023 Active 1 goal linked to scheduled/documen luisa intervention 1 goal intervention scheduled/documen luisa in this visit Safety concerns Disciplines: Skilled Disciplines Alteration in safety 11/19/2023 Active 1 goal linked to scheduled/documen luisa intervention 1 goal intervention scheduled/documen luisa in this visit Specialty Medication - General Disciplines: Jail Skilled Nurse to provide safe assessment of patient prior to use of general specialty medication 11/19/2023 Active - 3 problem interventions scheduled/documen luisa in this visit Medications Disciplines: Jail Management of IV Medications 11/19/2023 Active - 1 problem intervention scheduled/documen luisa in this visit Need to Collect Specimen Sample Disciplines: Jail Need to collect specimen sample 11/19/2023 Active - 1 problem intervention scheduled/documen luisa in this visit Learning/Olivier wild Needs - IV Therapy Disciplines: Jail Teaching and learning needs for IV therapy [...] Risk Medications Description: Instruct patient on high-risk medications,specifically Entyvio. Problem:Medications Goal:Understand and follow medication therapy Scheduled Monitor Vital Signs Description: Monitor blood pressure, pulse, oxygen saturation, respirations, and temperature, Problem:Monitor patient's vital signs every home health visit Goal:Measure vital signs during every home health visit during episode of care Scheduled Assess safety Description: Assess patient safety Problem:Safety concerns Goal:Demonstrate use of safety precautions Scheduled Learning Teaching Needs Description: Skilled Nurse [...] access for infusion Problem:Specialty Medication - General Scheduled Learning Teaching [...] MD/ Christina Kramer RN/ Cameron Looney PharmD/ J. Salmons, RN LABs: Hep B surface antigen, hep B surface antibody, hep B core antibody at next Entyvio infusion ~ 06/01/2024 Problem:Need to Collect Specimen Sample Scheduled Instruct Infection Prevention Description: Instruct patient in strategies to prevent infection: frequent/proper hand-washing techniques, [place] precautions, avoid crowds and persons with known [...] PIV Problem:Learning/Teaching Needs - IV Therapy Scheduled documented in this encounter Care Teams Newswriter Relationship Specialty Start Date End Date Emmanuel Wesley DO PCP - General Internal Medicine 12/11/21 documented as of this encounter
--- OUTSIDE RECORDS SUMMARY | 2024-11-11 19:10 | XMS_ITS | Encounter Summary ---
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 Infusion given over thirty minutes by PIV. Patient recertified outside of face to face visit. See last visit for most recent assessment. Reviewed insurance, medications and allergies. Order for recertification and chcf visits included with pharmacy order on 08/03/2023. ER TEACHER documented in this encounter Plan of Treatment Upcoming Encounters Date Type Department Care Team (Late st Contact Info) Description 11/09/2024 Plan of Care Documentation [address] [address] [address] [place] [address] documented as of this encounter Visit Diagnoses Not on filedocumented in this encounter Care Teams Allergist Immunologist Relationship Specialty Start Date End Date Emmanuel Wesley DO PCP - General Internal Medicine 12/11/21 documented as of this encounter
--- OUTSIDE RECORDS SUMMARY | 2024-11-11 19:10 | XMS_ITS | Encounter Summary ---
Author Organization [facility] Address [address] [place] [address] Phone Care Team Providers Care Photocopier Technician Name Role Phone Emmanuel Wesley DO Primary Care Provider [phone] Reason for Visit * Medication Authorization (Routine) - Pending Review Specialty Diagnoses / Procedures Referred By Med bazan Referred To Contact Parker De La Cruz MD [phone] Phone: tel: fax: Referral ID Status Reason Start Date Expiration Date V isits Requested Visits Authorized [id number] Pending Review 10/17/2023 11/15/2024 1 1 Encounter Details Date Type Department Care Team (Latest Contact Info) Description 10/17/2023 1:00 PM RESIDENTIAL SOLAR SALES CONSULTANT Home Care Visit [facility] [address] [place] [address] Jw Rodriguez RN SN INFUSION TREATMENT ROOM Social History [...] Frequency of Binge Drinking Not on file 08/0 06/2023 Personal Safety Answer Date Recorded Getting School Help Needed Not on file 10/17 Sex and Gender Information Value Date Recorded Sex Assigned at Not on file 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:34 AM RESIDENTIAL SOLAR SALES CONSULTANT Gender Identity Not on file Sexual Orientation Not on file documented as of this encounter Last Filed Vital Signs Vital Sign Reading Time Taken Comments Blood Pressure 143/73 10/17/2023 12:40 PM RESIDENTIAL SOLAR SALES CONSULTANT Pulse 55 10/17/2023 12:40 PM RESIDENTIAL SOLAR SALES CONSULTANT Temperature 36.6 ??C (97.8 ??F) 10/17/2023 12:[address] Respiratory Rate 16 10/17/2023 12:40 PM RESIDENTIAL SOLAR SALES CONSULTANT Oxygen Saturation 98% 10/17/2023 12:40 PM RESIDENTIAL SOLAR SALES CONSULTANT Inhaled Oxygen Concentration - - Weight - - Height - - Body Mass Index - - documented in this encounter Miscellaneous Notes * Home Health Visit Narrative - Jw Rodriguez RN - 10/17/2023 2:05 PM RESIDENTIAL SOLAR SALES CONSULTANT Entyvio infusion for today. Pt tolerated well without adverse reactions or effects. He reports thathe is having some GI symptoms with increased ostomy output and more liquid ostomy output and he attributes these symptoms to stress (pt's son is undergoing inpatient treatment for leukemia). All vital signs fall within acceptable parameters. PIV removed after infusion. Next visit has been arranged.Mr. Peralta has an appointment with his new GI doctor in December. DENTIAL SOLAR SALES CONSULTANT * Home Health Plan for Next Visit - Jw oRdriguez RN - 10/17/2023 2:02 PM CST Reason for today's visit - entyvio infusion Discuss plan of care with the patient Discharge planning - ongoing Plan for next visit in 8 weeks for same DENTIAL SOLAR SALES CONSULTANT documented in this encounter Plan of Treatment Upcoming Encounters Date Type Department Care Team (Late st Contact Info) Description 11/09/2024 Plan of Care Documentation [facility] - [address] [address] [address] [place] [address] documented as of this encounter Visit Diagnoses Not on filedocumented in this encounter Administered Medications Active Administered Medications - up to 3 most recent administrations Medication Order MAR Action Action Date Dose Rate Site sodium chloride 0.9 %, flush, (SALINE FLUSH INJ) 10 mL, intravenous, As needed, line patency, Starting on Tue10/17/23 at 1400, Indications: line patencyIndications:line patency Given 10/17/2023 2:00 PM RESIDENTIAL SOLAR SALES CONSULTANT 10 mL Inactive Administered Medications - up to 3 most recent administrations Medication Order MAR Action Action Date Dose Rate Site vedolizumab (ENTYVIO) 300 mg recon soln 300 mg, intravenous, Every 8 weeks, First dose on Tue10/17/23 at 1445, Infused by: [facility] ([facility] order in Epic under 'Procedures' tab). Given 10/17/2023 2:01 PM RESIDENTIAL SOLAR SALES CONSULTANT 300 mg documented in this encounter Home [...] home health visit Disciplines: SN, PT, OT, NATIONAL SALES REPRESENTATIVE, RN SHIFT MGR, Skilled Disciplines Monitor patient's vital signs every [...] the medication. Problem:Specialty Medication - General Scheduled Lab draw Description: Copied from pharmacy order: Gustabo Jones MD/ Sonali Looney PharmD/ Sonali Cruz RN LABs: CBC w/diff, HFP every 8 weeks with infusions. Fax results to [phone] & [phone]. Annual LABs: Draw T-SPOT.TB or Quantiferon TB Gold with initial induction. Problem:Need to Collect Specimen Sample Completed Sample obtained from peripheral vein using aseptic technique for CBC and CMP as ordered. Well tolerated by patient. Labs taken by bottom crane operator to [facility] main lab. Monitor Vital Signs Description: Monitor blood pressure, pulse, oxygen saturation, respirations, and temperature. Problem:Monitor patient's vital signs every home health visit Goal:Measure vital signs during every home health visit during episode of care Completed All vital signs fall within acceptable parameters. Instruct medications Description: Instruct patient in medication administration, purpose, dosages, preparation, scheduling, side effects, food/drug interactions, drug allergies, and potential complications. Medications instructed on: Entyvio. Problem:Medications Scheduled Instruct Infection Prevention Description: Instruct patient in strategies to prevent infection: frequent/proper hand-washing techniques, [place] precautions, avoid crowds and persons with known infections, staying current with immunizations, s/s of infection, use of antibiotics and encourage adequate diet and fluid intake. Instruct patient on how to recognize signs and symptoms of infection and when to notify HH nurse and/or physician. Problem:Learning/Teac loraine Needs - IV Therapy Completed Patient instructed on frequent/proper hand-washing techniques, Standard precautions, avoid crowds and persons with known infections, staying current with immunizations, s/s of infection, use of incentive spirometer, use of antibiotics and encourage adequate diet and fluid intake. Patient demonstrate and verbalizes knowledge of disease process, causative factors, complication, and management related to. IV Access Care/Maintenance Description: Skilled Nurse will [...] loraine Needs - IV Therapy Completed Patient and family verbalize and demonstrate good understanding of IV access care and maintenance to include good handwashing, aseptic technique as per [facility] Home Infusion Policies and Procedures, and troubleshooting/manag ement. IV Pump Instruction Description: Instruct patient to use call button if IV becomes painful, or swelling/redness occur at IV site, or if pump alarms during infusion. Call button will be kept within reach of patient throughout infusion. Problem:Learning/Teac loraine Needs - IV Therapy Scheduled Instruct on [...] concerns Goal:Demonstrate use of safety precautions Completed Pt and family report that they are safe in the home. documented in this encounter Care Teams Photocopier Technician Relationship Specialty Start Date End Date Emmanuel Wesley DO PCP - General Internal Medicine 12/11/21 documented as of this encounter
--- OUTSIDE RECORDS SUMMARY | 2024-11-11 19:10 | XMS_ITS | Encounter Summary ---
Author Organization [facility] Address [address] [place] [address] Phone Care Team Providers Care Business Office Associate Name Role Phone Emmanuel Wesley DO Primary Care Provider [phone]- [phone] Reason for Visit * Reason Comments Crohn's Disease * Medication Authorization (Routine) - Closed Specialty Diagnoses / Procedures Referred By Med bazan Referred To Contact Parker De La Cruz MD [address] [place] [address] Phone: tel: fax: Referral ID Status Reason Start Date Expiration Date Visits Re quested Visits Authorized [id number] Closed 08/22/2023 09/20/2024 1 1 Encounter Details Date Type Department Care Team (Latest Contact Info) Description 08/22/2023 12:30 PM CDT Home Care Visit [facility] [address] [address] [address] [place] [address] Isaura Cheema RN SN INFUSION TREATMENT ROOM Social History [...] Binge Drinking Not on file 08/0 06/2023 Sex and Gender Information Value Date Recorded Sex Assigned at Not on file 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:34 AM DIGITAL ENGINEER Gender Identity Not on file Sexual Orientation Not on file documented as of this encounter Last Filed Vital Signs Vital Sign Reading Time Taken Comments Blood Pressure 126/78 08/22/2023 12:47 PM CDT Pulse 61 08/22/2023 12:47 PM CDT Temperature 36.7 ??C (98 ??F) 08/22/2023 12:47 PM CDT Respiratory Rate 16 08/22/2023 12:47 PM CDT Oxygen Saturation - - Inhaled Oxygen Concentration - - Weight 117.9 kg (260 lb) 08/22/2023 12:47 PM CDT Height - - Body Mass Index 32.5 06/24/2023 12:55 PM CDT documented in this encounter Miscellaneous Notes * Home Health Plan for Next Visit - Isaura Cheema RN - 08/22/2023 2:14 PM CDT Reason for today's visit: PIV and administration ov every 8 week Entyvio. Discuss plan of carewith patient. Discharge planning: Patient independent after every infusion. Plan for next visit: Visit anticipated in 8 weeks for administration of Entyvio over 30 minutes viaPIV. documented in this encounter Plan of Treatment Upcoming Encounters Date Type Department Care Team (Late st Contact Info) Description 11/09/2024 Plan of Care Documentation [facility] - [address] [address] [address] [place] [address] documented as of this encounter Visit Diagnoses Not on filedocumented in this encounter Administered Medications Active Administered Medications - up to 3 most recent administrations Medication Order MAR Action Action Date Dose Rate Site sodium chloride 0.9 %, flush, (SALINE FLUSH INJ) 10 mL, intravenous, As needed, line patency, Starting on 08/22/23 at 1411, Indications: line patencyIndications:line patency Given 08/22/2023 1:30 PM CDT 10 mL Given 08/22/2023 12:50 PM CDT 20 mL R ight Forearm Inactive Administered Medications - up to 3 most recent administrations Medication Order MAR Action Action Date Dose Rate Site vedolizumab (ENTYVIO) 300 mg recon soln 300 mg, intravenous, Every 8 weeks, First dose on 08/22/23 at 1500, Infused by: [facility] ([facility] order in Epic under 'Procedures' tab). Given 08/22/2023 1:00 PM CDT 300 mg documented in this encounter Home Health Visit - Care Plan Visit Details Visit Type -SN Infusion Christa tment Room Discipline -Nursing Home Problems Problem Description Start Date Status Goals Interve ntions Specialty Medication - General Disciplines: Nursing Home SN to provide safe assessment of patient prior to use of general specialty medication 11/25/2022 Active - 3 problem interventions scheduled/documen luisa in this visit Need to Collect Specimen Sample Disciplines: Nursing Home Need to collect specimen sample 11/25/2022 Active - 1 problem intervention scheduled/documen luisa in this visit Monitor patient's vital signs every home health visit Disciplines: SN, PT, OT, CASING OPERATOR, BOOTMAKER HAND, Skilled Disciplines Monitor patient's vital signs every visit. 11/25/2022 Active 1 goal linked to scheduled/documen luisa intervention 2 goal interventions scheduled/documen luisa in this visit Medications Disciplines: Nursing Home Management of Medications 05/26/2023 Active - 1 problem intervention scheduled/documen luisa in this visit Learning/Teachin g Needs - IV Therapy Disciplines: Nursing Home Teaching and learning needs for IV therapy 05/26/2023 Active - 4 problem interventions scheduled/documen luisa in this visit Medications Disciplines: Nursing Home Management of medications 05/26/2023 Active 1 goal [...] for infusion. Problem:Specialty Medication - General Completed Learning Teaching Needs Description: Skilled Nurse to instruct patient on the potential side effects of the medication. Problem:Specialty Medication - General Completed Lab draw Description: Copied from pharmacy order: Gustabo Jones MD/ Sonali Looney PharmD/ Sonali Cruz RN LABs: CBC w/diff, HFP every 8 weeks with infusions. Fax results to [phone] & [phone]. Annual LABs: Draw T-SPOT.TB or Quantiferon TB Gold with initial induction. Problem:Need to Collect Specimen Sample Completed CBC w/diff and HFP drawn and sent via Arch mold hoister to [facility] lab tracking # [id number]. Monitor Vital Signs Description: Monitor blood pressure, pulse, oxygen saturation, respirations, and temperature. Problem:Monitor patient's vital signs every home health visit Goal:Measure vital signs during every home health visit during episode of care Completed Supervising Discipline notification of abnormal vital signs Description: Use standardized clinical guidelines of abnormal vitals signs to report to supervising discipline. (HR 50-110, SBP 90-160, DBP 40-90, O2Sat 88-100%, temporal temp less than 101.5) Problem:Monitor patient's vital signs every home health visit Goal:Measure vital signs during every home health visit during episode of care Completed Instruct medications Description: Instruct patient in medication administration, purpose, dosages, preparation, scheduling, side effects, food/drug interactions, drug allergies, and potential complications. Medications instructed on: Entyvio. Problem:Medications Completed Patient educated on Entyvio. Pharmacy monograph on Entyvio provided. Patient denies questions or concerns. Instruct Infection Prevention Description: Instruct patient in strategies to prevent infection: frequent/proper hand-washing techniques, [place] precautions, avoid crowds and persons with known infections, staying current with immunizations, s/s of infection, use of antibiotics and encourage adequate diet and fluid intake. Instruct patient on how to recognize signs and symptoms of infection and when to notify HH nurse and/or physician. Problem:Learning/Teac loraine Needs - IV Therapy Completed Patient instructed on strategies to prevent infection: frequent/proper hand-washing techniques, [place] precautions, avoid crowds and persons with known infections, staying current with immunizations, s/s of infection, use of antibiotics and encourage adequate diet and fluid intake. Patient instructed on how to recognize signs and symptoms of infection and when to notify HH nurse and/or physician. IV Pump Instruction Description: Instruct patient to use call button if IV becomes painful, or swelling/redness occur at IV site, or if pump alarms during infusion. Call button will be kept within reach of patient throughout infusion. Problem:Learning/Teac loraine Needs - IV Therapy Completed IV Access Care/Maintenance Description: Skilled Nurse will [...] Problem:Learning/Teac loraine Needs - IV Therapy Completed IV Discontinuation Description: Skilled Nurse will remove PIV following infusion per MD order and facility protocol, verifying catheter is intact, applying pressure to site until hemostasis is achieved and apply small gauze dressing secured with tape to site. Problem:Learning/Teac loraine Needs - IV Therapy Completed PIv removed at end of therapy and pressure dressing applied for discharge. Instruct on drug interactions Description: Perform drug interaction screening and instruct patient on severe drug interactions. Notify MD of any severe interactions Problem:Medications Goal:Understand and follow medication therapy Completed Instruct on high risk medications Description: Instruct patient on high-risk/high-alert medications, specifically Entyvio. Problem:Medications Goal:Understand and follow medication therapy Completed Patient educated on Entyvio. Denies questions or concerns. Monitor effectiveness of drug therapy Description: Monitor effectiveness of patient's drug therapy. Problem:Medications Goal:Understand and follow medication therapy Completed Assess safety Description: Assess patient safety. Problem:Safety concerns Goal:Demonstrate use of safety precautions Completed documented in this encounter Care Teams Business Office Associate Relationship Specialty Start Date End Date Emmanuel Wesley DO PCP - General Internal Medicine 12/11/21 documented as of this encounter
--- OUTSIDE RECORDS SUMMARY | 2024-11-11 19:10 | XMS_ITS | Encounter Summary ---
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 See last visit for most recent assessment. Reviewed insurance, medications and allergies. Order for recertification and prison visits included with pharmacy order on 12/24/2022. documented in this encounter Plan of Treatment Upcoming Encounters Date Type Department Care Team (Late st Contact Info) Description 11/09/2024 Plan of Care Documentation [facility] - [address] [address] [address] [place] [address] documented as of this encounter Visit Diagnoses Not on filedocumented in this encounter Home Health Visit - Care Plan Visit Details Visit Type -SN Non-OASIS Rec ert Discipline -Senior Care Problems Problem Description Start Date Status Goals Interventions Specialty Medication - General Disciplines: Senior Care SN to provide safe assessment of patient prior to use of general specialty medication 11/25/2022 Active - 3 problem interventions scheduled/documen luisa in this visit Medications Disciplines: Senior Care Management of IV Medications 11/25/2022 Active - 1 problem intervention scheduled/documen luisa in this visit Safety concerns Disciplines: Senior Care Safety needs related to infusion administration 11/25/2022 Active - 1 problem intervention scheduled/documen luisa in this visit Learning/Teachin g Needs - IV Therapy Disciplines: Senior Care Teaching and learning needs for performing home IV therapy 11/25/2022 Active - 3 problem interventions scheduled/documen luisa in this visit Monitor patient's vital signs every home health visit Disciplines: SN, PT, OT, STAFF RESEARCH ASSOCIATE, ELECTRONICS MECHANIC, Skilled Disciplines Monitor patient's vital signs every visit. 11/25/2022 Active 1 goal linked to scheduled/docume nted intervention 1 goal intervention scheduled/documen luisa in [...] medication. Problem:Specialty Medication - General Scheduled Instruct medications Description: Instruct patient/caregiver in medication administration, purpose, dosages, preparation, scheduling, side effects, food/drug interactions, storage, drug allergies, and potential complications. Problem:Medications Scheduled Instruct on IV complications Description: Instruct patient/caregiver on how to manage breaks in line, signs/symptoms of complications, who to contact for complications and how to contact the nurse, MD and infusion service Problem:Safety concerns Scheduled Instruct Infection Prevention Description: Instruct patient/caregiver in strategies to prevent infection. Instruct patient/caregiver on how to recognize signs and symptoms of infection and when to notify HH nurse and/or physician. Problem:Learning/Teaching Needs - IV Therapy Scheduled IV Administration Description: Skilled Nurse to administer medications and flushes as prescribed/needed. Reason for Therapy: IV Entyvio. Problem:Learning/Teaching Needs - IV Therapy Scheduled IV Access Care/Maintenance Description: Skilled Nurse to [...] of each line upon completion of infusion/flushes. Problem:Learning/Teaching Needs - IV Therapy Scheduled Monitor Vital Signs Description: Monitor blood pressure, pulse, oxygen saturation, respirations, and temperature. Problem:Monitor patient's vital signs every home health visit Goal:Measure vital signs during every home health visit during episode of care Scheduled documented in this encounter Care Teams Bead Filler Relationship Specialty Start Date End Date Emmanuel Wesley DO PCP - General Internal Medicine 12/11/21 documented as of this encounter
--- OUTSIDE RECORDS SUMMARY | 2024-11-11 19:10 | XMS_ITS | Encounter Summary ---
Author Organization [facility] Address [address] [place] [address] Phone Care Team Providers Care Palliative Care Coordinator Name Role Phone Emmanuel Wesley DO Primary Care Provider +1- [phone] Reason for Visit * Reason Comments Crohn's Disease Encounter for dietary counseling * Consultation (Routine) - Authorized Specialty Diagnoses / Procedures Referred By Med bazan Referred To Contact Diabetes and Nutrition Services Diagnoses Crohn's disease of small and large intestines with complication (HCC) Parker De La Cruz MD [address] [place] [address] Phone: tel: fax: [facility] [address] 12th [place] [address] [place] [address] Phone: tel: fax: Referral ID Status Reason Start Date Expiration Date Visits Requested Visits Authorized [id number] Authorized Specialty Services Required 05/08/2024 06/07/2025 99 99 Encounter Details Date Type Department Care Team (Late st Contact Info) Description 05/22/2024 10:[address] 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 Parker De La Cruz This was a telemedicine visit with Ranjit Peralta and spouse, Anju which took place via Real-time video connection (InTouch, Zoom or similar). During the visit, I was located at home and the patient was located at home in the state [facility]. The patient visit started at 10:02 and ended at 11:12. My total encounter time on 05/22/2024 was 70 minutes which was spent in the activities documented in the note. This time does not include time spent in any separately reportable services. The patient: has been informed that the visit may not be secure and acknowledged the information. The option of participating in a telephone or video visit during the [facility]-19 [facility] emergencywas explained to them. After being given an opportunity to ask questions about and discuss this type of visit, they verbally consented to proceeding with the telephone/video visit and understand thatthis service replaces an office visit. History of present illness/reason for visit: Patient is a 43 y.o. with stricturing, ileocolonic, perianal Crohn's disease (diagnosed 2006). He is status post EUA x 3 with seton placements in the past, more recently status post lap ICR with diverting end sigmoid colostomy (12/2022). Per Dr. Parker De La Cruz referral order (05/08/24) reason for referral: Diagnosis: Crohn's disease of small and large intestines with complication (HCC) (K50.819); Referral to Adamaris Clement. Thanks! Additional pertinent information per patient MyChart message to this dietitian (05/18/24): My diet is tricky mostly due to my Crohn's and have some narrowing spots and a history with slight obstructions.I tend to stick to a more low residue diet if I can. Past Medical History: Diagnosis Date Anxiety Crohn's disease (CMS/HCC) (HCC) dx 2006 Allergies Allergen Reactions Mercaptopurine Analogues (Thiopurines) Joint pain Severe gout like joint pain that starts within days of taking medicine Endoscopy: Colonoscopy 04/09/24: - Patent [id number] ileo-colonic anastomosis, characterized by ulceration and segmental [...] and granularity in the Reza pouch. Biopsied. Accompanying pathology: A. Small bowel, ileal stricture, biopsy - Small intestinal mucosa with acute ileitis and erosion B. Small bowel, ileum, biopsy - Normal small intestinal mucosa C. Large bowel, right colon, biopsy - Normal colonic mucosa D. Large bowel, left colon, biopsy - Normal colonic mucosa E. Rectum, biopsy - Colonic mucosa with acute cryptitis, and basal plasmacytosis Imaging: Abdominal CT 02/07/24: -Mild mucosal enhancement and wall thickening of the distal and terminal ileum to the level of the anastomosis with the ascending colon consistent with mild acute Crohn's flare. No skip lesions, strictures, fistulas or abscesses are seen. -Left lower quadrant colostomy. There is confluent low-density fluid in the subcutaneous fat surrounding the ostomy. This may represent a seroma or resolving hematoma. Infection cannot be excluded by imaging. -Diffuse hepatic steatosis. -Small hiatal hernia. -Bibasilar atelectasis. -Trace amount of ascites in the pelvis. -Diverticulosis of the distal transverse and descending colon without evidence of acute diverticulitis. Medications: dicyclomine ergocalciferol Rinvoq tablet extended release 24 hr SALINE FLUSH INJ sodium, potassium & mag sulfates recon soln vedolizumab recon soln Labs: No results found for: HGBA1C Lab Results Component Value Date CHOL 193 02/11/2022 CHOL 193 01/14/2022 CHOL 193 12/18/2021 Lab Results Component Value Date HDL 30 (L) 02/11/2022 HDL 38 (L) 01/14/2022 HDL 42 12/18/2021 Lab Results Component Value Date LDLCALC 113 02/11/2022 LDLCALC 125 01/14/2022 LDLCALC 126 12/18/2021 Lab Results Component Value Date TRIG 250 (H) 02/11/2022 TRIG 148 01/14/2022 TRIG 124 12/18/2021 Lab Results Component Value Date IRON 128 03/03/2023 IRON 60 09/18/2013 FERRITIN 21 (L) 03/03/2023 FERRITIN 159 09/18/2013 Lab Results Component Value Date ALT 93 (H) 04/06/2024 AST 65 (H) 04/06/2024 Lab Results Component Value Date GLUCOSE 87 04/06/2024 GLUCOSE 109 02/06/2024 GLUCOSE 93 12/12/2023 Lab Results Component Value Date CRP 4.7 04/06/2024 SEDRATE 9 08/26/2017 No results found for: OLGA 03/03/23 1821 Transferrin saturation 26 Vitamin B12 457 09/13/14 0320 04/06/24 1240 25-OH Vit D 44 -- Vitamin D 25-OH -- 46 Recent anthropometrics: Patient Weight 05/08/24 119.3 kg (263 lb) 04/09/24 115.7 kg (255 lb) 02/06/24 120.2 kg (265 lb) 12/27/23 121.6 kg (268 lb) 12/12/23 117.9 kg (260 lb) 08/22/23 117.9 kg (260 lb) BMI Readings from Last 6 Encounters: 05/08/24 32.87 kg/m?? 04/09/24 31.87 kg/m?? 04/06/24 32.50 kg/m?? 02/06/24 33.12 kg/m?? 12/27/23 33.50 kg/m?? 12/12/23 32.50 kg/m?? Ht Readings from Last 1 Encounters: 05/08/24 190.5 cm (6' 3 ) MUST Score: 0 - low risk of malnutrition [BMI score: 0: BMI >20.0; Unintended weight loss score:0: <5% weight loss; Acute disease effect score: 0] Estimated energy needs (calculated at 20-22 kcals/kg ABW): 2386-3788 kcals Estimated protein needs: 84 kg (1.2-1.5 g/kg IBW): 101-126 grams Calculated IBW (calculated for BMI between 20-24.9): 161-203 lbs (73-92 kg) for 6'3 [place] body weight: 84.5 kg (186 lb 4.6 oz) Adjusted ideal body weight: 98.4 kg (216 lb 15.6 oz) Foods: I tend to eat lunchmeat sandwiches, grilled meats, sushi seems ok if nothing too exotic, bananas, peanut butter, complaint clerk pasta and cheese pizza do fine for me. I do eat some fast food on the run but don't do that well with it. Drinks: Could use more water. I do drink lemonade, coffee (1cup), tea and some mixed drinks. Absence/inadequacy of IOIBD dietary components thought to be of benefit for Crohn's: fruits and vegetables Patient's primary question/concern, if stated: Hope to come up with better ideas to still get morenutrition when dealing with strictures. I was told before that diet doesn't really matter for Crohn's disease, but find that hard to believe, and would like your opinion. Symptom assessment: Colostomy output: some foods seem to worsen # of stools and produce more loose/watery stools Nausea/vomiting: n/a Abdominal discomfort/pain: not currently Appetite: normal Dentition/ability to chew: normal Swallowing ability/difficulty: N/A Other: Patient indicates that his disease course had been in a decent place until the time of the pandemic, at which time he flared badly (he states possibly due to the stress). Diet assessment: Avoiding any dietary components: I really avoid raw veggies and leafy greens (given my narrowing spots). Limits carbonated drinks (makes stomach noisy) Fried foods Spicy foods Tolerates: avocado, banana, cantaloupe, cooked carrots, potatoes On a special diet now: I tend to stick to a more low residue diet if I can. I'm nervous about most raw fruits & vegetables. My diet is kind of boring now, I'm doing plain chicken, potatoes, pakistani style green beans. I'd like ideas to break up the monotony. I could also uses ideas for light lunches, this seems to be the hardest meal for me to have good ideas for. Past diets attempted: n/a History of disordered eating: n/a Who plans/buys/preps food: patient's spouse Anju enjoys cooking and does the majority of the food prep Access to food: able Physical activity assessment: Types of movement: trying to get into a walking routine Barriers to movement: In the past, he had a good routine of being active, including playing basketball with friends. Understandably, the pandemic & his child's diagnosis of leukemia both interrupted this routine, and he has struggled to initiate a new routine. He indicates he would like to lose 15-20 lbs. Their children are ages 5, 9, and 12. The youngest child had a leukemia diagnosis that added a lot of stress that he attributes some of his weight gain to. Fortunately, this child rang the oleary forhis leukemia remission in Oct 2023. Diagnoses: Patient has altered GI function related to Crohn's disease, as evidenced by stricturing disease, need for colostomy, endoscopy/histology, and imaging reports. Patient has inadequate intake of IOIBD dietary components thought to be of benefit in managing inflammation and preventing relapse: fruits and vegetables related to diet choices as evidenced by patient interview. Patient has food/nutrition-related knowledge deficit related to healthy diet for Crohn's disease with strictures as evidenced by patient interview. Interventions: Nutrition education: healthy diet for stricturing Crohn's disease Eating for Crohn's disease with strictures: Diet for symptom management/risk of obstruction Using the Eating with strictures handout, patient and I discussed the recommendations of this diet. There is not much research/evidence to guide choices, suggestions are based on experiences shared by patients. Fiber: explained what it is, where it is found, and what the difference is between soluble and insoluble fiber & provided examples of each Try: Smaller, more frequent meals make it less overwhelming for food waste to work its way through strictured areas Selecting softer texture fiber-containing foods OR those that have been texture- modified through: peeling, deseeding, cooking, mashing, pureeing, blending - he is already doing so, but from a limitedvariety of ~3-4 options. Using the Pinterest board, we were able to identify some options for others to try. Given he is bored with plain chicken, I suggested possibly using fresh or dried herbs on top, such as [place], basil, dill, thyme, which they indicate they do have some fresh in their garden and like this idea. I made them aware that fresh will impart a lot of flavor but can be removed instead of consumed. I also suggested something like pesto would be broken down enough to be consumed atop chicken or vegetables. Break down the particle size by: chewing foods well, dicing into smaller pieces Softening the texture of meat, poultry, seafood by: roasting, poaching, slow cooking, simmering Drink adequate fluids, sips may be better tolerated than gulps Nutrient-dense oral nutrition supplements to assist with meeting needs in a well-tolerated manner. With patient's permission, the following nutrition drink samples were ordered to be shipped to their home (requested on 05/23/24): Orgain: regular, [employer]: Peptide 1.0 & Standard 1.0, and Nestle: Compleat peptide 1.5 vegetable & fruit medley & Compleat original plant based 1.5 fruit medley Limit: Tough textured meats (beef jerky, shrimp) - he is avoiding High insoluble fiber foods, examples: Grains: seeded breads, steel cut oats, brown rice, popcorn - he is avoiding Fruits: citrus pulp/membrane, blackberries, dried fruits - he is avoiding Vegetables: corn, raw celery, raw kale - he is avoiding Plant-based proteins: nuts, seeds - he is avoiding unless in nut/seed butter version Eating for Crohn's disease: Diet for inflammation management: IOIBD: Using the IOIBD handout as a resource, we discussed dietary components that to benefit or contribute to inflammation of IBD. I made them aware that increasing intake of fruits and vegetables is thought to be the dietary component of most benefit to increase. We also discussed IOIBD ingredients of concern and where they might be found. Per IOIBD recommendations for managing inflammation and preventing relapse: Increase fruits and vegetables in diet. - As per above, we were able to identify more options that can work with him, using the Pinterest board. Specific IBD diets discussed: described what it is, available evidence, if/when it might make senseto try, what duration it would be followed for, and how it's efficacy would be determined. Handoutsprovided summarizing each. Exclusive Enteral Nutrition (EEN) Crohn's Disease Exclusion Diet +/- Partial Enteral Nutrition (CDED +/- PEN) Mediterranean Diet Specific Carbohydrate Diet (SCD) or Nutrition in Immune Balance Therapy (NIMBAL) Inflammatory Bowel Disease - Anti-Inflammatory Diet (IBD-AID) We talked through ideas for snacks and light lunches. Snack ideas that appealed to him included: Cheerios, Episcopal Oat/[employer] [place] [employer], soft-type granola bars (such as GoMacro). I was able to share numerous lunch ideas that he can explore. Educational materials provided: [facility] ???Eating with a stricture?? handout, stricture-friendly recipes and recipe resources; DIGID IBD Fiber handout Patient understanding of nutrition recommendations is good. Patient encouraged to contact me for diet-related support. Monitoring/Evaluation: Since MUST score was 0 - low risk for malnutrition, no further workup needed at this time, rescore in 1 year, or in the presence of change in nutrition status. -We agreed to a ~6-week check-in via MyChart (reminder set to self) documented in this encounter Plan of Treatment Upcoming Encounters Date Type Department Care Team (Late st Contact Info) Description 11/09/2024 Plan of Care Documentation [address] [address] [place] [address] documented as of this encounter Visit Diagnoses Diagnosis Crohn's disease of small and large intestines with complication (HCC)- Primary Encounter for dietary counseling and surveillance documented in this encounter Orders Outpatient Referral Count Last Ordered Date Fir st Ordered Date AMB REFERRAL TO NUTRITION SERVICES 1 2023 documented in this encounter Care Teams Palliative Care Coordinator Relationship Specialty Start Date End Date Emmanuel Wesley DO PCP - General Internal Medicine 12/11/21 documented as of this encounter
--- OUTSIDE RECORDS SUMMARY | 2024-11-11 19:10 | XMS_ITS | Encounter Summary ---
Author Organization [facility] Address [address] [place] [address] Phone Care Team Providers Care Forest Resources Professor Name Role Phone Emmanuel Wesley DO Primary Care Provider +1- [phone] Encounter Details Date Type Department Care Team (Late Contact Info) Description 05/09/2023 Orders Only [facility] Pediatrics Hematology and Oncology One [address] [address] Simona Olsen RN Encounter for examination of potential donor of organ and tissue (Primary Dx) Social History Tobacco Use Types Packs/Day Years [...] on file 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 Gender Identity Not on file Sexual Orientation Not on file documented as of this encounter Plan of Treatment Upcoming Encounters Date Type Department Care Team (Late st Contact Info) Description 11/09/2024 Plan of Care Documentation [address] [address] [place] [address] documented as of this encounter Visit Diagnoses Diagnosis Encounter for examination of potential donor of organ and tissue- Primary documented in this encounter Care Teams Forest Resources Professor Relationship Specialty Start Date End Date Emmanuel Wesley DO PCP - General Internal Medicine 12/11/21 documented as of this encounter
--- OUTSIDE RECORDS SUMMARY | 2024-11-11 19:10 | XMS_ITS | Encounter Summary ---
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 Per the plan will not be approved if used in combination with another immunomodulatory drug. Would you like pharmacy to initiate appeal? documented in this encounter Plan of Treatment Upcoming Encounters Date Type Department Care Team (Late st Contact Info) Description 11/09/2024 Plan of Care Documentation [address] [address] [place] [address] documented as of this encounter Visit Diagnoses Not on filedocumented in this encounter Care Teams Stock Blender Relationship Specialty Start Date End Date Emmanuel Wesley DO PCP - General Internal Medicine 12/11/21 documented as of this encounter
--- OUTSIDE RECORDS SUMMARY | 2024-11-11 19:10 | XMS_ITS | Encounter Summary ---
Author Organization [facility] Address [address] [place] [address] Care Team Providers Care Cook Barbecue Name Role Phone Emmanuel Wesley DO Primary Care Provider +1- [phone] Reason for Visit * Auth/Cert (Routine) Specialty Diagnoses / Procedures Referred By Med bazan Referred To Contact Diagnoses Crohn's disease of small and large intestines with complication (HCC) Stricture intestinal (CMS/HCC) (HCC) Crohn's disease of small and large intestines with complication (HCC) [K50.819] Stricture intestinal (CMS/HCC) (HCC) [K56.699] Procedures [place] COLONOSCOPY FLX DX W/COLLJ SPEC WHEN PFRMD [place] UNLISTED PROCEDURE COLON HC PCMKR [id number] IMPL 2 CHAMBER RR EXTD LNGVT colon dilation per rectum and stoma IBD Referral ID Status Reason Start Date Expiration Date Visits Re quested Visits Authorized [id number] 1 1 Encounter Details Date Type Department Care Team (Late st Contact Info) Description 04/09/2024 11:00 AM CDT - 04/09/2024 12:00 PM CDT Surgery [facility] Endoscopy [id number] [id number] Tahir Cardoso MD [address] [place] [address] ENDO ADD ON OSTOMY BALLOON DILATION Surgery Details Date/Time Status Location OR Service Patient Class Case Class Case Type Trauma Case? 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 5 mL 5 [...] vs inflammation causing SBO at the nTI. Past Medical History: Diagnosis Date Anxiety Crohn's [...] catheter every 8 (eight) weeks Infused by: [facility] ([facility] order in [facility] under 'Procedures' tab). 08/03/23 Yes Parker [...] Male Attending MD: Tahir Collins M.D. Room: [facility] ENDOSCOPY ROOM 04 Note Status: Finalized [...] bowel preparation was evaluated using the BBPS ([place] Bowel Preparation Scale) with scores of: Right [...] scope was passed under direct vision. The [id number] was introduced through the anus and advanced to the terminal ileum. Findings: Patient is status-post subtotal colectomy with an end colostomy anastomosis. There was evidence of a prior zmcj-bg-tryi ileo-colonic anastomosis in the ascending colon. This [...] cold forceps for histology. Impression: - Patent syuw-ao-mwji ileo-colonic anastomosis, characterized by ulceration and segmental [...] following this procedure please call my office [phone]). After hours and evenings please call [phone] and speak to the GI fellow system configuration specialist. Please tell the fellow that Dr. Collins [...] Notes * Perioperative Nursing Note - Symone Rivas, RN - 04/09/2024 12:[address] Collins Spoke with patient and re: findings. Discharge instructions given and understandingverbalized. documented in this encounter Plan of Treatment Upcoming Encounters Date Type Department Care Team (Late st Contact Info) Description 11/09/2024 Plan of Care Documentation [address] [address] [address] [place] [id number] documented as of this encounter Procedures Procedure [...] Biopsy) 04/09/2024 12:15 PM CDT Narrative PATHOLOGY [facility] - 04/10/2024 11:11 AM CDT EPIC results best viewed via link to PDF [facility] [place] [address] Note to Patients: This report may contain [...] ??M : ??1980 (Age: 43) Address: ??[address] [place] [address] ??[id number] Hospital #: ??[id number] Taken:04/09/2024 Received:04/09/2024 Reported: 04/10/2024 Patient Type: [facility] EP SAME [facility] Location: Physician(s): ??MD Emmanuel [...] eosin). ?? Labeled E1. Jar 0. ?? cnewho/04/09/2024 13:52 PA(s): STONEY Walker, CT ([facility])CM By this signature, I attest that the above diagnosis is based upon my personal examination of the slides(and/or other material). Addenda/Procedures Microscopic slide review and interpretation for this case was performed at [facility], Department of Surgical Pathology, [address] [facility] [place], [place] [id number], ??[place], [place] ??[address] ?? CLIA # [id number] The performance characteristics of some immunohistochemical stains, fluorescence in-situ hybridization tests and immunophenotyping by flow cytometry cited in this report (if any) were determined by the Surgical Pathology and Flow Cytometry Departments at [facility] as part of an ongoing quality assurance lead program and in compliance with federally mandated [...] Surgical Pathology and Flow Cytometry Departments of [facility]. ??It has not been cleared or approved by the U. S. Food and Drug Administration. IMAGES AND SCANNED DOCUMENTS, IF INCLUDED, ONLY VIEWABLE IN PDF VERSION OF REPORT Tahir Collins MD LAB PATHOLOGY ORDERAB LES Final Result PATHOLOGY [facility] [phone] * Colonoscopy (04/09/2024 11:45 AM CDT) Anatomical Region Laterality Modality Other Narrative Procedure Note Tahir Cardoso MD - 04/09/2024 11:45 AM CDT ENDOSCOPY LAB Patient Name: Dante Peralta Procedure Date: 04/09/2024 11:45 AM Date of : 1980 Admit Type: Outpatient Age: 43 Gender: Male Attending MD: Tahir Collins M.D. Room: [facility] ENDOSCOPY ROOM 04 Note Status: Finalized Procedure: Colonoscopy via Stoma with Endoscopy of HartmannPouch Indications: Balloon dilation of stenotic lesion of the terminal ileum and evaluation of disease activity. Historyof lap ICR and diverting colostomy in Dec 2022. He kathie vedolizumab. He had an obstructive episode with CTE showing anastomotic stricture vs inflammationcausing SBO at the I. Providers: Tahir Collins M.D. Referring MD: Parker [...] the bowel preparation was evaluated using the BBPS([place] Bowel Preparation Scale) with scores of: RightColon [...] scope was passed under direct vision. The [id number] wasintroduced through the anus and advanced to the terminalileum. Findings: Patient is status-post subtotal colectomy with an end colostomy anastomosis. There was evidence of a prior yiqk-ln-oqvq ileo-colonic anastomosisin the ascending colon. This was [...] cold forceps for histology. Impression: - Patent eeie-io-uvbq ileo-colonic anastomosis, characterized by ulceration and segmentalulcerations [...] following this procedure please call my office [phone]). After hours and eveningsplease call [phone] and speak to the GI fellow silvana. [...] intestinal obstruction Crohn's disease with complication (HCC) Crohn's disease of small and large intestines with complication (HCC) Stricture intestinal (CMS/HCC) (HCC) Unspecified intestinal obstruction documented in this encounter Admitting Diagnoses Diagnosis [...] (GI) simethicone (MYLICON) 66.7 mg/mL oral drops As needed, Starting on Tue04/09/24 at 1152, Intra-Op Given 04/09/2024 11:52 AM CDT 40 mg GI Tract sodium chloride 0.9% flush 0.5-20 mL 0.5-20 [...] (Given - Provid er: Basilia Wray RN) Continuous Medication Order 04/07/2024 04/08/2024 04/09/2024 [...] intra-catheter, As needed, line care, Starting on 04/09/24 at 1011, Pre-Procedure (GI), Flush volume based on line type and size. Flush before and after each use. , Indications: Flushing documented in this encounter Orders Medications Ordered That Steven ht Not Have Been Administered Count Last Ordered Date First Ordered Date ondansetron (ZOFRAN) injection 4 mg 1 04/09 sodium chloride 0.9% flush 0.5-20 mL 1 01/2024 Discharge Count Last Ordered Date First Orde red Date DISCHARGE PATIENT 1 04/09/2024 documented in this encounter Care Teams Cook Barbecue Relationship Specialty Start Date End Date Emmanuel Wesley DO PCP - General Internal Medicine 12/11/21 documented as of this encounter
--- OUTSIDE RECORDS SUMMARY | 2024-11-11 19:10 | XMS_ITS | Encounter Summary ---
Author Organization [facility] Healthcare Address [address] [place] [address] Care Team Providers Care Film Processor Name Role Phone Emmanuel Wesley DO Primary Care Provider +1- [phone] Encounter Details Date Type Department Care Team (Late st Contact Info) Description 08/03/2023 Orders Only 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 Maintain IV access via PIV with 10ml normal saline for patency per established protocol. Check vital signs (Temp, HR, RR, BP) prior to infusion, every 30 minutes during infusion, and at discharge. Premedicate patient 30 minutes before infusion with: 25mg of Diphenhydramine by mouth as needed 500mg of Acetaminophen by mouth as needed Infuse 300mg Vedolizumab (Entyvio) in 250mL Normal Saline over 30 minutes at up to 500 mL/hr every 8 weeks. Remove PIV at the end of each infusion as needed. Slow or stop infusion for infusion reactions, treat per facility protocol and notify Dr. De La Cruz [phone] or GI fellow at [phone]. Recommend observing patient for 30 minutes after infusion is completed for urticaria, pruritus, or other infusion related reactions. LABs: CBC w/diff, CMP & CRP every 8 weeks (every infusion). T-SPOT.TB or Qunatiferon Gold TB once a year (due November 2023). LOT: (7 doses) through 07/31/24 Please provide 1 jail visit every 8 weeks over 52 weeks for patient assessment, teaching, line access or PIV insertion, drug administration, and lab work with 8 PRN visits for additional drug administrations during induction therapy or for recertifications that fall out of range. documented in this encounter Plan of Treatment Upcoming Encounters Date Type Department Care Team (Late st Contact Info) Description 11/09/2024 Plan of Care Documentation [address] [address] [address] [place] [address] documented as of this encounter Visit Diagnoses Not on filedocumented in this encounter Care Teams Film Processor Relationship Specialty Start Date End Date Emmaunel Wesley DO PCP - General Internal Medicine 12/11/21 documented as of this encounter
--- OUTSIDE RECORDS SUMMARY | 2024-11-11 19:10 | XMS_ITS | Encounter Summary ---
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 Gender Identity Not on file Sexual Orientation Not on file documented as of this encounter Plan of Treatment Upcoming Encounters Date Type Department Care Team ([facility] st Contact Info) Description 11/09/2024 Plan of Care Documentation [address] [place] [address] documented as of this encounter Visit Diagnoses Not on filedocumented in this encounter Orders Nursing Count Last Ordered Date First Orde red Date MISCELLENEOUS ORDER 1 07/23/2024 documented in this encounter Care Teams Job Change Crew Member Relationship Specialty Start Date End Date Emmanuel Wesley DO PCP - General Internal Medicine 12/11/21 documented as of this encounter
--- OUTSIDE RECORDS SUMMARY | 2024-11-11 19:10 | XMS_ITS | Encounter Summary ---
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 The patient is under my care, and I have authorized the services on this plan of care and will periodically review the plan. documented in this encounter Plan of Treatment Upcoming Encounters Date Type Department Care Team (Late st Contact Info) Description 11/09/2024 Plan of Care Documentation [facility] - [address] [place] [address] documented as of this encounter Visit Diagnoses Not on filedocumented in this encounter Care Teams Family Practice Nurse Practitioner Relationship Specialty Start Date End Date Emmanuel Wesley DO PCP - General Internal Medicine 12/11/21 documented as of this encounter
--- OUTSIDE RECORDS SUMMARY | 2024-11-11 19:10 | XMS_ITS | Encounter Summary ---
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 5 mL 5 08/03/2023 4 documented as of this encounter Discharge Disposition Disposition Code Departure Means Destination Discharge to home or self care documented in this encounter Miscellaneous Notes * Result Encounter Note - Parker De La Cruz MD - 12/12/2023 11:59 PM BUG TRIMMER Transaminases are a little up. Will monitor. TRIMMER documented in this encounter Plan of Treatment Upcoming Encounters Date Type Department Care Team (Late st Contact Info) Description 11/09/2024 Plan of Care Documentation [facility] Home Health - [address] [place] [address] Pending Results Name Type Priority Associated Diagnoses Date /Time Comprehensive metabolic panel (Outreach) Lab Routine 12/12/2023 8:40 PM BUG TRIMMER Scheduled Orders Name Type Priority Associated Diagnoses Orde r Schedule Comprehensive metabolic panel (Outreach) Lab Routine Once for 1 Occu rrences starting 12/12/2023 until 12/12/2023 documented as of this encounter Procedures Procedure Name Priority Date/Time Associated Diagnosis Comments GLUCOSE, RANDOM (OUTREACH) Routine 12/12/2023 1:30 PM BUG TRIMMER EGFR Routine 12/12/2023 1:30 PM BUG TRIMMER DIFFERENTIAL AUTO Routine 12/12/2023 1:3 0 PM BUG TRIMMER TB TEST, QUANTIFERON GOLD Routine 12/12/2023 1:30 PM BUG TRIMMER COMPREHENSIVE METABOLIC PANEL WITHOUT GLUCOSE (OUTREACH) Routine 12/12/2023 1:30 PM BUG TRIMMER CBC WITH AUTO DIFFERENTIAL Routine 12/12/2023 1:30 PM BUG TRIMMER CRP (ACUTE PHASE) Routine 12/12/2023 1:3 0 PM BUG TRIMMER documented in this encounter Results * eGFR (12/12/2023 1:30 PM BUG TRIMMER) eGFR 104 mL/min/1. 73 m2 [facility] Comment: Interpretive Data Reference Interval Normal ?>/= [...] interpretive data was last reviewed 2021. Blood 12/12/2023 1:30 PM BUG TRIMMER 12/12/2023 8:12 PM BUG TRIMMER us Parker De La Cruz MD LAB BLOOD ORDERABLES Final Result [facility] [address] [place] [address] * Differential, auto (12/12/2023 1:30 PM BUG TRIMMER) Neutrophil abs 3.2 1.5 - 6.5 K/cumm [facility] Imm gran abs 0.0 0.0 - 0.1 K/cumm [facility] Lymphocyte abs 1.9 0.8 - 3.3 K/cumm [facility] Monocyte abs 0.4 0.2 - 0.8 K/cumm [facility] Eosinophil abs 0.1 0.0 - 0.5 K/cumm [facility] Basophil abs 0.0 0.0 - 0.1 K/cumm [facility] Neutrophil pct 56.6 % [facility] Comment: Interpretive Data Percent cell count reference ranges are not reported, since discordance with absolute values may lead to misinterpretation of CBC data. Current Interpretive Data was last revised on 2018. Imm gran pct 0.2 % [facility] Comment: Interpretive Data Percent cell count reference ranges are not reported, since discordance with absolute values may lead to misinterpretation of CBC data. Current Interpretive Data was last revised on 2018. Lymphocyte pct 32.9 % [facility] Comment: Interpretive Data Percent cell count reference ranges are not reported, since discordance with absolute values may lead to misinterpretation of CBC data. Current Interpretive Data was last revised on 2018. Monocyte pct 7.7 % [facility] Comment: Interpretive Data Percent cell count reference ranges are not reported, since discordance with absolute values may lead to misinterpretation of CBC data. Current Interpretive Data was last revised on 2018. Eosinophil pct 2.1 % [facility] Comment: Interpretive Data Percent cell count reference ranges are not reported, since discordance with absolute values may lead to misinterpretation of CBC data. Current Interpretive Data was last revised on 2018. Basophil pct 0.5 % [facility] Comment: Interpretive Data Percent cell count reference ranges are not reported, since discordance with absolute values may lead to misinterpretation of CBC data. Current Interpretive Data was last revised on 2018. Blood 12/12/2023 1:30 PM BUG TRIMMER 12/12/2023 7:39 PM BUG TRIMMER Parker De La Cruz MD LAB BLOOD ORDERABLES Final Result [facility] [address] Department [place] [address] * TB test, quantiferon gold (12/12/2023 1:30 PM BUG TRIMMER) [facility] Quantiferon TB Gold Negative Negative [facility] Comment: No interferon-gamma response to M. tuberculosis antigens was detected. Latent infection with M. tuberculosis is unlikely. A single negative result does not exclude infection with M. tuberculosis. In patients at high risk for M.tuberculosis infection, a second test should be considered in accordance with the 2017 ATS/IDSA/CDC Clinical Practice Guidelines for Diagnosis of Tuberculosis in Adults and Children [Alaninsritan SHOAIB et. al. Clin. Infect. Dis. 2017;64(2):111-115]. The reference range for the 'TB1 Ag minus Nil Result' and 'TB2 Ag minus Nil Result' is an Interferon-gamma level <0.35 IU/mL. TB-Nil -0.02 IUnits/mL [facility] TB2-Nil -0.02 IUnits/mL [facility] Mitogen-Nil 9.93 IUnits/mL [facility] NIL 0.07 IUnits/mL [facility] Comment: Test Performed by: [facility] [address] [place] [id number] Veneer Trimmer: Barrington Aquino M.D. Ph.D.; IA# [id number] Blood 12/12/2023 1:30 PM BUG TRIMMER 12/12/2023 8:13 PM BUG TRIMMER Parker De La Cruz MD LAB BLOOD ORDERABLES Final Result Performing Organization Address [facility] Co de Phone Number [facility] [address] Department [employer] [place], [place] [id number] * CRP (acute phase) (12/12/2023 1:30 PM BUG TRIMMER) [facility] CRP 3.6 <=10.0 mg/L [facility] Blood 12/12/2023 1:30 PM BUG TRIMMER 12/12/2023 7:38 PM BUG TRIMMER Parker De La Cruz MD LAB BLOOD ORDERABLES Final Result Performing Organization Address [facility] de Phone Number [facility] [address] Department [place] [employer] [place] [address] * CBC with auto differential (12/12/2023 1:30 PM BUG TRIMMER) Pathologist [facility] WBC 5.7 3.8 - 9.9 K/cumm [facility] Hgb 14.5 13.0 - 17.5 g/dL [facility] Hct 43.3 38.9 - 50.3 % [facility] Plt 239 150 - 400 K/cumm [facility] MPV 10.6 9.1 - 12.3 fL [facility] RBC 4.79 4.30 - 5.80 M/cumm [facility] MCV 90.4 81.3 - 96.4 fL [facility] MCH 30.3 27.1 - 33.3 pg [facility] MCHC 33.5 32.3 - 35.7 g/dL [facility] RDW CV 12.8 11.1 - 14.9 % [facility] RDW SD 42.3 35.7 - 48.1 fL [facility] NRBC abs 0.00 0.00 - 0.01 K/cumm [facility] Blood 12/12/2023 1:30 PM BUG TRIMMER 12/12/2023 7:39 PM BUG TRIMMER Parker De La Cruz MD LAB BLOOD ORDERABLES Final Result Performing Organization Address [facility] de Phone Number [facility] [address] Department of [employer] [place], [place] [id number] * Glucose, random (Outreach) (12/12/2023 1:30 PM BUG TRIMMER) Glucose 93 70 - 199 mg/dL [facility] Comment: Interpretive Data Fasting glucose >/= 126 [...] interpretive data was last revised 2022. Blood 12/12/2023 1:30 PM BUG TRIMMER 12/12/2023 7:38 PM BUG TRIMMER Parker De La Cruz MD LAB BLOOD ORDERABLES Final Result Performing Organization Address [facility] Co de Phone Number [facility] [address] Department [employer] [place], [place] [id number] * (ABNORMAL) Comprehensive metabolic panel, without glucose (Outreach) (12/12/2023 1:30 PM BUG TRIMMER) Sodium 139 135 - 145 mmol/L [facility] Potassium, pl 3.8 3.3 - 4.9 mmol/L [facility] Chloride 104 97 - 110 mmol/L [facility] CO2 22 22 - 32 mmol/L [facility] Anion gap 13 2 - 15 mmol/L [facility] BUN 12 6 - 25 mg/dL [facility] Creatinine 0.93 0.80 - 1.30 mg/dL [facility] Calcium 9.4 8.5 - 10.3 mg/dL [facility] Protein, pl 6.7 6.5 - 8.5 g/dL [facility] Albumin 4.6 3.5 - 5.0 g/dL [facility] Bilirubin, total 0.8 0.1 - 1.2 mg/dL [facility] Alk phos 49 40 - 130 Units/L [facility] AST 53(H) 10 - 50 Units/L [facility] ALT 90(H) 7 - 55 Units/L [facility] Blood 12/12/2023 1:30 PM BUG TRIMMER 12/12/2023 7:38 PM BUG TRIMMER us Parker De La Cruz MD LAB BLOOD ORDERABLES Final Result [facility] [address] Department [place] [address] documented in this encounter Visit Diagnoses Not on filedocumented in this encounter Care Teams Resident Care Aide Relationship Specialty Start Date End Date Emmanuel Wesley DO PCP - General Internal Medicine 12/11/21 documented as of this encounter
--- OUTSIDE RECORDS SUMMARY | 2024-11-11 19:10 | XMS_ITS | Encounter Summary ---
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 Will just watch. documented in this encounter Plan of Treatment Upcoming Encounters Date Type Department Care Team (Late st Contact Info) Description 11/09/2024 Plan of Care Documentation [facility] Home Health - [address] [address] [address] [place] [address] documented as of this encounter Procedures Procedure Name Priority Date/Time Associated Diagnosis Comments GLUCOSE, RANDOM (OUTREACH) Routine 02/06/2024 1:30 PM CDT EGFR Routine 02/06/2024 1:30 PM CDT DIFFERENTIAL AUTO Routine 02/06/2024 1:3 0 PM CDT COMPREHENSIVE METABOLIC PANEL WITHOUT GLUCOSE (OUTREACH) Routine 02/06/2024 1:30 PM CDT CBC WITH AUTO DIFFERENTIAL Routine 02/06/2024 1:30 PM CDT CRP (ACUTE PHASE) Routine 02/06/2024 1:3 0 PM CDT documented in this encounter Results * eGFR (02/06/2024 1:30 PM CDT) eGFR >90 >=60 mL/min/1. 73 [...] interpretive data was last reviewed 2021. Blood 02/06/2024 1:30 PM CDT 02/06/2024 3:01 PM CDT us Parker De La Cruz MD LAB BLOOD ORDERABLES Final Result [facility] Department [place] [address] * Differential, auto (02/06/2024 1:30 PM CDT) Neutrophil abs 3.8 1.5 - 6.5 K/cumm Comment:Testing performed by : [facility], [address] [place] [id number] Imm gran abs 0.0 0.0 - 0.1 K/cumm [facility] Lymphocyte abs 1.7 0.8 - 3.3 K/cumm [facility] Monocyte abs 0.4 0.2 - 0.8 K/cumm [facility] Eosinophil abs 0.1 0.0 - 0.5 K/cumm [facility] Basophil abs 0.0 0.0 - 0.1 K/cumm [facility] Neutrophil pct 62.7 % [facility] Comment: Interpretive Data Percent cell count reference ranges are not reported, since discordance with absolute values may lead to misinterpretation of CBC data. Current Interpretive Data was last revised on 2018. Imm gran pct 0.3 % [facility] Comment: Interpretive Data Percent cell count reference ranges are not reported, since discordance with absolute values may lead to misinterpretation of CBC data. Current Interpretive Data was last revised on 2018. Lymphocyte pct 27.8 % [facility] Comment: Interpretive Data Percent cell count reference ranges are not reported, since discordance with absolute values may lead to misinterpretation of CBC data. Current Interpretive Data was last revised on 2018. Monocyte pct 6.4 % [facility] Comment: Interpretive Data Percent cell count reference ranges are not reported, since discordance with absolute values may lead to misinterpretation of CBC data. Current Interpretive Data was last revised on 2018. Eosinophil pct 2.3 % [facility] Comment: Interpretive Data Percent cell count reference ranges are not reported, since discordance with absolute values may lead to misinterpretation of CBC data. Current Interpretive Data was last revised on 2018. Basophil pct 0.5 % [facility] Comment: Interpretive Data Percent cell count reference ranges are not reported, since discordance with absolute values may lead to misinterpretation of CBC data. Current Interpretive Data was last revised on 2018. Blood 02/06/2024 1:30 PM CDT 02/06/2024 3:01 PM CDT Parker De La Cruz MD LAB BLOOD ORDERABLES Final Result Performing Organization Address [facility] de Phone Number [facility] Department [place] [address] * Glucose, random (Outreach) (02/06/2024 1:30 PM CDT) Glucose 109 70 - 199 mg/dL Comment: Interpretive Data [...] interpretive data was last revised 2022. Blood 02/06/2024 1:30 PM CDT 02/06/2024 3:01 PM CDT Parker De La Cruz MD LAB BLOOD ORDERABLES Final Result Performing Organization Address [facility] de Phone Number [facility] Department [place] [address] * (ABNORMAL) Comprehensive metabolic panel, without glucose (Outreach) (02/06/2024 1:30 PM CDT) Sodium 140 135 - 145 mmol/L Comment:Testing performed by : [facility], [address] [place] [id number] Potassium, pl 4.0 3.3 - 4.9 mmol/L [facility] Chloride 106 97 - 110 mmol/L [facility] CO2 24 22 - 32 mmol/L [facility] Anion gap 10 2 - 15 mmol/L [facility] BUN 12 6 - 25 mg/dL [facility] Creatinine 0.99 0.80 - 1.30 mg/dL [facility] Calcium 9.4 8.5 - 10.3 mg/dL [facility] Protein, pl 7.5 6.5 - 8.5 g/dL [facility] Albumin 4.5 3.5 - 5.0 g/dL [facility] Bilirubin, total 0.9 0.1 - 1.2 mg/dL [facility] Alk phos 53 40 - 130 Units/L [facility] AST 48 10 - 50 Units/L [facility] ALT 71(H) 7 - 55 Units/L [facility] Blood 02/06/2024 1:30 PM CDT 02/06/2024 3:01 PM CDT us Parker De La Cruz MD LAB BLOOD ORDERABLES Final Result [facility] Department [place] [address] * CBC with auto differential (02/06/2024 1:30 PM CDT) Pathologist [facility] WBC 6.1 3.8 - 9.9 K/cumm Comment:Testing performed by : [address] [address] Hgb 14.4 13.0 - 17.5 g/dL [facility] Comment:Testing performed by : [address] [address] Hct 43.1 38.9 - 50.3 % [facility] Comment:Testing performed by : [address] [address] Plt 240 150 - 400 K/cumm [facility] Comment:Testing performed by : [address] [address] MPV 10.5 9.1 - 12.3 fL [facility] RBC 4.87 4.30 - 5.80 M/cumm [facility] MCV 88.5 81.3 - 96.4 fL [facility] MCH 29.6 27.1 - 33.3 pg [facility] MCHC 33.4 32.3 - 35.7 g/dL [facility] RDW CV 12.7 11.1 - 14.9 % [facility] RDW SD 41.1 35.7 - 48.1 fL [facility] NRBC abs 0.00 0.00 - 0.01 K/cumm [facility] Blood 02/06/2024 1:30 PM CDT 02/06/2024 3:01 PM CDT us Parker De La Cruz MD LAB BLOOD ORDERABLES Final Result Performing Organization Address City/[facility]/ZIP Co de Phone Number [facility] [place] [address] * CRP (acute phase) (02/06/2024 1:30 PM CDT) CRP 4.8 <=10.0 mg/L Blood 02/06/2024 1:30 PM CDT 02/06/2024 7:10 PM CDT Parker De La Cruz MD LAB BLOOD ORDERABLES Final Result Performing Organization Address City/[facility] Co de Phone Number [place] [address] documented in this encounter Visit Diagnoses Not on filedocumented in this encounter Care Teams Glass Furnace Operator Relationship Specialty Start Date End Date Emmanuel Wesley DO PCP - General Internal Medicine 12/11/21 documented as of this encounter
--- OUTSIDE RECORDS SUMMARY | 2024-11-11 19:10 | XMS_ITS | Encounter Summary ---
Author Organization [facility] Address [address] [place] [address] Phone Care Team Providers Care Condenser Winder Name Role Phone Emmanuel Wesley DO Primary Care Provider [phone]- [phone] Reason for Referral * Consultation (Routine) - Pending Review Specialty Diagnoses / Procedures Referred By Med ojeda Referred To Contact Diagnoses Elevated LFTs Parker De La Cruz MD [address] [place] [address] Phone: tel: fax: [facility] (All Locations) Referral ID Status Reason Start Date Expiration Date Visits Requested Visits Authorized [id number] Pending Review Specialty Services Required 06/06/2024 07/06/2025 1 1 Question Answer Are you referring this patient for liver disease medical management? Yes Which condition(s) need medical mangement? Other (see comment section) - Elevated LFTs Please select the performing region: [facility] (All Locations) [[id number]] # of visits: 1 Comments Patient for elevated LFTs. Fatty liver seen on previous imaging. Encounter Details Date Type Department Care Team (Late st Contact Info) Description 06/06/2024 Documentation [facility] Gastroenterology [address] 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 ----- Message ----- From: Christina Jauregui RN Sent: 06/06/2024 12:45 PM CDT To: Christina Jauregui RN; * Will place referral to hepatology. Pt reported that he started Rinvoq this week and labs were collected last week. ----- Message ----- From: Parker De La Cruz MD Sent: 06/04/2024 8:49 AM CDT To: Christina Jauregui RN Transaminases up. Could be from rinvoq but I suspect it is related to fatty liver seen on previous imaging. Transaminases have been elevated intermittently in the past. Continue rinvoq and refer to hepatology. * Christina Reid RN - 06/06/2024 12:46 PM CDT Me to Ranjit Ojeda Kathryn 06/06/24 10:18 AM Good morning, I hope this message finds you well! Have you received Rinvoq and started it yet? If yes, when did you start? I would greatly appreciate an update, whenever you have a moment. Kindest regards, Christina Ojeda Kathryn to Me 06/06/24 10:21 AM Lauri Vasquez, yes I received and started this week. Thank you! Me to Ranjit Ojeda Kathryn 06/06/24 12:43 PM Thank you for the update! Me to Ranjit Ojeda Kathryn 06/06/24 1:12 PM Clary again, My apologies for the second message! Initially when I looked at your next infusion date, I thought it was in June, but its actually in July. And Dr. De La Cruz would like to get a set of labs ~ 4weeks after starting Rinvoq, then we will be able to get them with your infusions. Where would you like to complete the blood work at in 4 weeks? We can send lab orders to almost anyfacility such as [facility], [facility], [facility] in [place], etc. Kindest regards, Christina Ranjit T Kathryn to Me 06/06/24 1:44 PM [place], [place] [facility] would work good. Thanks! One time safety lab order placed for [facility] and standing lipids faxed to [facility] Home Infusion to be collected with infusions. documented in this encounter Miscellaneous Notes * Addendum Note - Christina Reid RN - 06/06/2024 12:46 PM CDTAddended by: CHRISTINA JAUREGUI on: 06/06/2024 02:06 PM Modules accepted: Orders documented in this encounter Plan of Treatment Upcoming Encounters Date Type Department Care Team (Late st Contact Info) Description 11/09/20[address] [facility] Home Health - [address] [address] [address] [place] [address] Scheduled Orders Name Type Priority Associated Diagnoses Orde r Schedule Lipid panel Lab Routine High risk medications (not anticoagulants) long-term use Crohn's disease of small and large intestines with complication (HCC) every 8 weeks for 7 Occurrences starting 06/06/2024 until 06/06/2025 Scheduled Referrals Name Type Priority Associated Diagnoses Order Schedule Ambulatory referral to Hepatology Outpatient Referral Routine Elevated LFTs Ordered: 06/06/2024 documented as of this encounter Procedures Procedure Name Priority Date/Time Associated Diagnosis Comments CBC WITH AUTO DIFFERENTIAL Routine 07/06/2024 1:07 PM CDT High risk medications (not anticoagulants) long-term use Crohn's disease of small and large intestines with complication (HCC) CRP (ACUTE PHASE) Routine 07/06/2024 1:0 7 PM CDT High risk medications (not anticoagulants) long-term use Crohn's disease of small and large intestines with complication (HCC) LIPID PANEL Routine 07/06/2024 1:07 PM CDT High risk medications (not anticoagulants) long-term use Crohn's disease of small and large intestines with complication (HCC) COMPREHENSIVE METABOLIC PANEL Routine 07/06/2024 1:07 PM CDT High risk medications (not anticoagulants) long-term use Crohn's disease of small and large intestines with complication (HCC) documented in this encounter Results * (ABNORMAL) Lipid panel (07/06/2024 1:07 PM CDT) Pathologist [facility] Cholesterol 220(H) 100 - 199 mg/dL [facility] - 01 Triglycerides 162(H) 0 - 149 mg/dL [facility] - 01 HDL Cholesterol 35(L) >39 mg/dL [facility] - 01 VLDL 30 5 - 40 mg/dL [facility] - 01 LDL, calculated 155(H) 0 - 99 mg/dL [facility] - 01 Blood 07/06/2024 1:07 PM CDT 07/06/2024 Narrative [facility] - 07/07/2024 7:13 AM CDT Performed at: ??01 - [facility] ??[id number] Cloth Shearing Supervisor: Gnetry Dewey PhD, Phone: ??[phone] Parker De La Cruz MD LAB BLOOD ORDERABLES Final Result Performing Organization Address [facility] Co de Phone Number [facility] * CRP (acute phase) (07/06/2024 1:07 PM CDT) [facility] CRP 2 0 - 10 mg/L [facility] - 01 Blood 07/06/2024 1:07 PM CDT 07/06/2024 Narrative [facility] - 07/07/2024 10:10 AM CDT Performed at: ??01 - [facility] ??[id number] Cloth Shearing Supervisor: Gentry Dewey PhD, Phone: ??[phone] Parker De La Cruz MD LAB BLOOD ORDERABLES Final Result Performing Organization Address [facility] Co de Phone Number [facility] * (ABNORMAL) Comprehensive metabolic panel (07/06/2024 1:07 PM CDT) [facility] Glucose 83 70 - 99 mg/dL [facility] - 01 BUN 16 6 - 24 mg/dL [facility] - 01 Creatinine, Serum 1.17 0.76 - 1.27 mg/dL [facility] - 01 eGFR 79 >59 mL/min/1.7 3 [facility] - 01 BUN/creat ratio 14 9 - 20 [facility] - 01 Sodium 140 134 - 144 mmol/L [facility] - 01 Potassium, sr 4.5 3.5 - 5.2 mmol/L [facility] - 01 Chloride 103 96 - 106 mmol/L [facility] - 01 CO2 23 20 - 29 mmol/L [facility] - 01 Calcium 9.6 8.7 - 10.2 mg/dL [facility] - 01 Protein, sr 7.1 6.0 - 8.5 g/dL [facility] - 01 Albumin 5.0 4.1 - 5.1 g/dL [facility] - 01 Globulin, Total 2.1 1.5 - 4.5 g/dL [facility] - 01 Bilirubin, Total 1.4(H) 0.0 - 1.2 mg/dL [facility] - 01 Alk phos 46 44 - 121 IU/L [facility] - 01 AST 50(H) 0 - 40 IU/L [facility] - 01 ALT 83(H) 0 - 44 IU/L [facility] - 01 Blood 07/06/2024 1:07 PM CDT 07/06/2024 Narrative [facility] - 07/07/2024 7:13 AM CDT Performed at: ?? - [facility] [address], [place], [place] ??[id number] Cloth Shearing Supervisor: Gentry Dewey PhD, Phone: ??[phone] us Parker De La Cruz MD LAB BLOOD ORDERABLES Final Result [facility] - * CBC with auto differential (07/06/2024 1:07 PM CDT) WBC 6.6 3.4 - 10.8 x10E3/uL [facility] - 01 RBC 4.83 4.14 - 5.80 x10E6/uL [facility] - 01 Hgb 14.8 13.0 - 17.7 g/dL [facility] - 01 Hct 44.6 37.5 - 51.0 % [facility] - 01 MCV 92 79 - 97 fL [facility] - 01 MCH 30.6 26.6 - 33.0 pg [facility] - 01 MCHC 33.2 31.5 - 35.7 g/dL [facility] - 01 Rdw 13.0 11.6 - 15.4 % [facility] - 01 Platelets 206 150 - 450 x10E3/uL [facility] - 01 Neutrophils pct 61 Not Estab. % [facility] - 01 Lymphs pct 28 Not Estab. % [facility] - 01 Monocytes pct 9 Not Estab. % [facility] - 01 Eosinophils pct 1 Not Estab. % [facility] - 01 Basophil pct 1 Not Estab. % [facility] - 01 Neutrophil abs 4.0 1.4 - 7.0 x10E3/uL [facility] - 01 Lymphs (Absolute) 1.9 0.7 - 3.1 x10E3/uL [facility] - 01 Monocyte abs 0.6 0.1 - 0.9 x10E3/uL [facility] - 01 Eosinophils, abs 0.1 0.0 - 0.4 x10E3/uL [facility] - 01 Basophils, abs 0.0 0.0 - 0.2 x10E3/uL [facility] - 01 Immature Granulocytes 0 Not Estab. % [facility] - 01 Immature Grans (Abs) 0.0 0.0 - 0.1 x10E3/uL [facility] - 01 Blood 07/06/2024 1:07 PM CDT 07/06/2024 Narrative [facility] - 07/07/2024 5:09 AM CDT Performed at: ??01 - [facility] [address] ??[id number] Cloth Shearing Supervisor: Gentry Dewey PhD, Phone: ??[phone] Parker De La Cruz MD LAB BLOOD ORDERABLES Final Result [facility] - 01 documented in this encounter Visit Diagnoses Diagnosis Elevated LFTs- Primary Other abnormal blood chemistry High risk medications (not anticoagulants) long-term use Encounter for long-term (current) use of other medications Crohn's disease of small and large intestines with complication (HCC) documented in this encounter Care Teams Condenser Winder Relationship Specialty Start Date End Date Emmanuel Wesley DO PCP - General Internal Medicine 12/11/21 documented as of this encounter
--- OUTSIDE RECORDS SUMMARY | 2024-11-11 19:10 | XMS_ITS | Encounter Summary ---
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 Gender Identity Not on file Sexual Orientation Not on file documented as of this encounter Miscellaneous Notes * [facility] Plan of Care Certification Statement - Franklin Cruz RN - 06/07/2023 3:32 PM CDT I recertify that the above stated patient has a continued need for intermittent snf, physical therapy and/or speech or occupational therapy [...] Info) Description 11/09/2024 Plan of Care Documentation [address] [place] [address] documented as of this encounter Visit Diagnoses Not on filedocumented in this encounter Care Teams Shower Doors And Panels Fabricator Relationship Specialty Start Date End Date Emmanuel Wesley DO PCP - General Internal Medicine 12/11/21 documented as of this encounter
--- OUTSIDE RECORDS SUMMARY | 2024-11-11 19:10 | XMS_ITS | Encounter Summary ---
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 Maintain IV access via PIV with 10ml normal saline for patency per established protocol. Remove PIV at the end of each infusion as needed. For Subsequent doses (if initial dose is without incident): Check vital signs (Temp, HR, RR, BP) prior to infusion, every 30 minutes during infusion, and at discharge. Premedicate patient 30 minutes before infusion with: 25mg of Diphenhydramine (Benadryl) by mouth as needed 500mg of Acetaminophen (Tylenol) by mouth as needed Infuse 300mg of Entyvio (Vedolizumab) in 250mL Normal Saline over at least 30 minutes at a rate of up to 500ml/hr per pump or RFT. Slow or stop infusion for infusion reactions, treat per facility protocol and notify Dr. Jones.Recommend observing patient for 30 minutes after infusion is completed for urticaria, pruritus, or other infusion related reactions. Treatment Plan: After initial infusion (week 0), infuse on week 2, 6 and then every 8 weeks for 52 weeks. LABs: CBC w/diff, HFP every 8 weeks with infusions. Fax results to [phone] & [phone]. Annual LABs: Draw T-SPOT.TB or Quantiferon TB Gold with initial induction. Length of therapy: 10/22/22-10/21/23 documented in this encounter Plan of Treatment Upcoming Encounters Date Type Department Care Team (Late st Contact Info) Description 11/09/2024 Plan of Care Documentation [facility] - [address] [address] [address] [place] [address] documented as of this encounter Visit Diagnoses Not on filedocumented in this encounter Care Teams Conference Services Director Relationship Specialty Start Date End Date Emmanuel Wesley DO PCP - General Internal Medicine 12/11/21 documented as of this encounter
--- OUTSIDE RECORDS SUMMARY | 2024-11-11 19:10 | XMS_ITS | Encounter Summary ---
Author Organization [facility] Address [address] [place] [address] Phone Care Team Providers Care Php Website Developer Name Role Phone Emmanuel Weslye DO Primary Care Provider [phone]- [phone] Encounter Details Date Type Department Care Team (Late st Contact Info) Description 06/14/2023 10:00 AM CDT Office Visit [facility] Gastroenterology [address] [place] [address] Medical Office Building [address] [place] [address] Paulina Jones MD [address] [place] [address] Crohn's disease of both small and large intestine without complication (CMS/HCC) (HCC) (Primary Dx); High risk medications (not [...] on file 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 Gender Identity Not on file Sexual Orientation Not on file documented as of this encounter Last Filed Vital Signs Vital Sign Reading Time Taken Comments Blood Pressure 145/89 06/14/2023 10:14 AM CDT Pulse 50 06/14/2023 10:14 AM CDT Temperature 36.6 ??C (97.9 ??F) 06/14/2023 1 0:14 AM CDT Respiratory Rate - - Oxygen Saturation 99% 06/14/2023 10: 14 AM CDT Inhaled Oxygen Concentration - - Weight 113.9 kg (251 lb 3.2 oz) 023 10:14 AM CDT Height 190.5 cm (6' 3 ) 06/14/2023 10:1 4 AM CDT Body Mass Index 31.4 06/14/2023 10:14 AM CDT documented in this encounter Patient Instructions * Patient Instructions* Steffanie Hunter RN - 06/14/2023 10:00 AM CDT Return office visit is needed in 6 months- Dr. De La Cruz We will check a fecal calprotectin- ordered at [facility] Please try using peppermint oil- available over the counter A prescription for Bentyl will be sent to your pharmacy documented in this encounter Ordered Prescriptions Prescription Sig Dispense Quantity Refills Last Filled Start Date End Date dicyclomine (BENTYL) 20 mg tablet Take 1 tablet (20 mg total) by mouth 4 (four) times a day as needed (cramping) 120 tablet 3 06/14/2023 documented in this encounter Progress Notes * Bri Izabela Helena, PRINCIPAL STRATEGIST - 06/14/2023 10:00 AM CDT REASON FOR VISIT: Follow-up for treatment refractory ileocolonic and perianal Crohn's disease CURRENT MEDICATIONS: Xanax p.r.n., Celebrex p.r.n., vitamin-D, folic acid, Levsin p.r.n. Entyvio 300 mg every 8 weeks PROBLEM LIST: Ileocolonic and perianal Crohn's disease, diagnosed in 2006, with a presentation of hematochezia and perianal fistula with abscess. The patient was previously treated with Humira, Cimzia, Remicade, methotrexate, and Entyvio in combination with methotrexate, Stelara, Xeljanz, Otezla x2 months, and aretrial of Entyvio monthly. He was later retried on Zeposia, with no response. He discontinued and was started on Skyrizi in early June 2022, with a limited response. The patient had a very tight IC valve and was having intermittent obstructions and was referred to a surgeon, but the decision wasmade to hold off on surgery until his disease was better controlled. The region has been transversed with difficulty and dilation, and it has demonstrated active distal terminal ileal disease. The patient unfortunately had a JERALD virus that was elevated, and he was not a candidate for Tysabri. The patient also did not respond to Skyrizi. The patient received one maintenance dose when we saw him inNovember, and subsequently, he underwent an ileocolonic resection as well as a diverting sigmoid colostomy in December 2022. As the patient had felt the best on Entyvio, this was restarted in fall 2021 at every 8 week frequency History of significant gout flares while on thiopurines, leading to discontinuation. This was thought to be prevented by the allopurinol and decreasing the dosing, but unfortunately, he still required significant amount of steroids and indomethacin with colchicine to control his gout flares. Positive JERALD virus of 2.15. Difficulty tolerating methotrexate but is tolerating it at this moment. Joint pain HISTORY OF PRESENT ILLNESS: Ranjit Peralta is a gabby 42 y.o. male with a past medical history of refractory ileocolonic and perianal Crohn's disease who presents today for follow-up. The patient was last seen on 02/08/2023 after his recent ileocecectomy and sigmoid colostomy for refractory disease. The patient indicated that he was having trouble with his diet and managing his stoma. Beyond that however he felt like he was doing much better and was able to participate in life to a greater extent. He would 1 episode of obstructive symptoms after eating a large volume of Raisinbran. He tried Metamucil but thought this caused more gas. He complained of intermittent joint pain. He also reported that the noise from his stoma had a tendency to be quite loud and somewhat embarrassing. The patient was advised that he could try taking Celebrex and sulfasalazine for joint pain. He would remain on Entyvio and likely could still benefit from a soluble fiber supplement. He was advised that we likely would do a repeat colonoscopy sometime during the summer and was educated on diet modifications that may help decrease his gas. The patient presents today reporting that overall he is doing much better with regards to his ostomy. He is using a convex appliance as well as a stealth belt. He finds that greasy foods and possiblysome dairy products will make his stools looser and more gas production. He also felt that fiber supplementations had made it looser. As he tends to dispose of his ostomy bag after a significant bowel movement, looser more frequent stools become annoying. Unfortunately his son recently was found have AML and is currently undergoing chemotherapy at [facility]. As he and his spend a substantial amount of time at the hospital, he does not feel like he is eating the best food and feels this contributes to his symptoms. The noise of stool passing is perhaps the most annoying. He has tried a muffler without much success. He notes that a washcloth in his still felt seems to be the most effective. He is not tried using colestipol and was advised that Gas-X probably would not be enough. He will occasionally have some discomfort near his stoma what seems to be prior to stool passing. This does improve a little bit with hyoscyamine. He states that his insurance seems to only give him 20 of these at a time. He is not tried dicyclomine. As for his rectal symptoms he indicates that currently he is having minimal symptoms with passage mucus perhaps a couple times in the more but this is controlled. He states that the area around his stoma seems somewhat prominent. REVIEW OF SYSTEMS: As per HPI, all other systems negative PHYSICAL EXAM: BP 145/89 Pulse 50 Temp 36.6 ??C (97.9 ??F) Ht 190.5 cm (6' 3 ) Wt 113.9 kg (251 lb 3.2 oz) SpO2 99% BMI 31.40 kg/m?? General: Well-appearing male in no acute cardiopulmonary distress HEENT: Sclerae are not inflamed or icteric, nose and mouth obscured by mask Pulmonary: Clear to auscultation no wheeze rhonchi rales Cardiovascular: Regular rate and rhythm no murmur or rub noted Abdomen: Soft, nontender, nondistended, slight asymmetry to lower abdomen near left lower quadrant stoma but does not appear to have a prominent peristomal hernia Skin: No worrisome lesions or rashes Neurological: Alert and oriented with no focal deficits OBJECTIVE DATA: Recents labs, imaging studies, and endoscopic procedures were reviewed for trends, and aberrations on the day of the patient's visit. ASSESSMENT AND PLAN: Ranjit Peralta is a gabby 42 y.o. male with a past medical history of stricturing ileocolonic and perianal Crohn's disease who presents today for follow-up Crohn's disease. The patient appears to be doing much better since diversion. At some point he would like to have his ostomy taken down his rectum has been very refractory to all medications. We would like him to remain on Entyvio for now . As colonoscopy in the next several months while his son having chemotherapy would be highly inconvenient, we would like him to submit a calprotectin at his convenience. If this is elevated, we will check his Entyvio trough level and determine if his intervalshould be shortened. We will await new treatment options and continue to monitor his labs with his infusions Flatus. As discussed last time, patient can try Colestid, Gas-X, avoiding carbonated beverages and artificial sweetener. Typically having smaller meals more frequently can help. As he thinks the Levsin that was provided last time helped with the flatus but it is not well covered by his insurance, we will offer him dicyclomine as an alternative Healthcare maintenance. The patient is strongly encouraged to stay up-to-date with his vaccinationsand continue to follow closely with his care team for other healthcare needs The patient was given ample opportunity to ask questions and have them answered and was seen by both Dr. Jones and myself. We would like him to return in [address] De La Cruz. This note was created in part with the assistance of [employer] voice recognition software. Insurance Producer variances may occur. Cosigned by Paulina Jones MD at 06/15/2023 7:34 AM CDT Associated attestation - Paulina Jones MD - 06/15/2023 7:34 AM CDT I have seen and examined the patient. I agree with the findings and plan of care as documented in the resident/fellow's note. My total encounter time on 06/14/2023 was 30 minutes which was spent in theactivities documented in the note. This includes time spent prior to the visit and after the visit in direct care of the patient. This time does not include time spent in any separately reportable ser vices. documented in this encounter Plan of Treatment Upcoming Encounters Date Type Department Care Team (Late st Contact Info) Description 11/09/2024 Plan of Care Documentation [address] [address] [address] [place] [address] Scheduled Orders Name Type Priority Associated Diagnoses Orde r Schedule Calprotectin, fecal Lab Routine Crohn's disease of both small and large intestine without complication (CMS/HCC) ([facility]) Expected: 06/14/2023, Expires: 06/14/2024 documented as of this encounter Visit Diagnoses Diagnosis Crohn's disease of both small and large intestine without complication (CMS/HCC) (HCC)- Primary High risk medications (not anticoagulants) long-term use Encounter for long-term (current) use of other medications documented in this encounter Care Teams Php Website Developer Relationship Specialty Start Date End Date Emmanuel Wesley DO PCP - General Internal Medicine 12/11/21 documented as of this encounter
--- OUTSIDE RECORDS SUMMARY | 2024-11-11 19:10 | XMS_ITS | Encounter Summary ---
Author Organization [facility] Healthcare Address [address] [place] [address] Care Team Providers Care Cpc Name Role Phone Emmanuel Wesley DO Primary Care Provider [phone]- [phone] Reason for Visit * Reason Comments Crohn's Disease * Medication Authorization (Routine) - Pending Review Specialty Diagnoses / Procedures Referred By Med bazan Referred To Contact Parker De La Cruz MD [address] [facility] [address] [place] [address] Phone: tel: fax: Referral ID Status Reason Start Date Expiration Date V isits Requested Visits Authorized [id number] Pending Review 08/01/2024 08/31/2025 1 1 Encounter Details Date Type Department Care Team (Latest Contact Info) Description 07/30/2024 12:00 PM CDT Home Care Visit [facility] [address] [address] [address] [place] [address] Margoth Springer RN SN INFUSION TREATMENT ROOM Social History [...] on file 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 Gender Identity Not on file Sexual Orientation Not on file documented as of this encounter Last Filed Vital Signs Vital Sign Reading Time Taken Comments Blood Pressure 125/69 07/30/2024 12:50 PM CDT Pulse 48 07/30/2024 12:50 PM CDT Temperature 36.6 ??C (97.8 ??F) 07/30/2024 12:50 PM C DT Respiratory Rate 17 07/30/2024 12:50 PM CDT Oxygen Saturation 99% 07/30/2024 12:50 PM CDT Inhaled Oxygen Concentration - - Weight - - Height - - Body Mass Index - - documented in this encounter Miscellaneous Notes * Home Health Plan for Next Visit - Margoth Springer RN - 08/01/2024 11:20 PM CDT Reason for today's visit assessment, instruction, labs, Entyvio infusion Discuss plan of care with pt verb good understanding Discharge planning indef Plan for next visit scheduled Entyvio infusion 09/24/2024 documented in this encounter Plan of Treatment Upcoming Encounters Date Type Department Care Team (Late st Contact Info) Description 11/09/2024 Plan of Care Documentation [facility] Home Health - [address] [address] [address] [place] [address] documented as of this encounter Visit Diagnoses Not on filedocumented in this encounter Administered Medications Active Administered Medications - up to 3 most recent administrations Medication Order MAR Action Action Date Dose Rate Site sodium chloride 0.9 %, flush, (SALINE FLUSH INJ) 10 mL, intravenous, As needed, line patency, Starting on Tue08/01/24 at 2317, Indications: line patencyIndications:line patency Given 07/30/2024 12:20 PM CDT 10 mL Inactive Administered Medications - up to 3 most recent administrations Medication Order MAR Action Action Date Dose Rate Site vedolizumab (ENTYVIO) 300 mg recon soln 300 mg, intravenous, Every 8 weeks, First dose on Ashlyn 08/02/24 at 0000, Infused by: [facility] Home Care ([facility] order in [facility] under 'Procedures' tab)., Indications: Crohn's DiseaseIndications:Crohn's Disease Given 07/30/2024 12:20 PM CDT 300 mg documented in this encounter Home Health Visit - Care Plan Visit Details Visit Type -SN Infusion Christa tment Room Discipline -Intermediate Problems Problem Description Start Date Status Goals Interve ntions Medications Disciplines: Intermediate Management of medications 11/19/2023 Active 1 goal linked to scheduled/documen luisa intervention 1 goal intervention scheduled/documen luisa in this visit Monitor patient's vital signs every home health visit Disciplines: Skilled Disciplines, SN, PT, OT, STAFF SOFTWARE ENGINEER, ROAD TRAIN DRIVER Monitor patient's vital signs every visit. 11/19/2023 Active 1 goal linked to scheduled/documen luisa intervention 1 goal intervention scheduled/documen luisa in this visit Safety concerns Disciplines: Skilled Disciplines Alteration in safety 11/19/2023 Active 1 goal linked to scheduled/documen luisa intervention 1 goal intervention scheduled/documen luisa in this visit Specialty Medication - General Disciplines: Intermediate Skilled Nurse to provide safe assessment of patient prior to use of general specialty medication 11/19/2023 Active - 3 problem interventions scheduled/documen luisa in this visit Medications Disciplines: Intermediate Management of IV Medications 11/19/2023 Active - 1 problem intervention scheduled/documen luisa in this visit Need to Collect Specimen Sample Disciplines: Intermediate Need to collect specimen sample 11/19/2023 Active - 2 problem interventions scheduled/documen luisa in this visit Learning/Teachin g Needs - IV Therapy Disciplines: Intermediate Teaching and learning needs for IV therapy [...] Description: Instruct patient on high-risk medications,specifica melba Pitts. Problem:Medications Goal:Understand and follow medication therapy Scheduled Monitor Vital Signs Description: Monitor blood pressure, pulse, oxygen saturation, respirations, and temperature, Problem:Monitor patient's vital signs every home health visit Goal:Measure vital signs during every home health visit during episode of care Completed VSS Assess safety Description: Assess patient safety Problem:Safety [...] Medications instructed on: Entyvio. Problem:Medications Completed Patient verb good understanding of entyvio medication admin, indication, dosage, preparation, scheduling, side effects, food/drug interactions, and potential complications. Lab draw Description: Copied from pharmacy order: Parker De La Cruz MD/ Mp OrtegaD/ Sonali Cruz RN LABs: CBC w/diff, CMP & CRP every 8 weeks (every infusion). T-SPOT.TB or Qunatiferon Gold TB once a year (due November 2023). Problem:Need to Collect Specimen Sample Completed labs drawn cbc w/diff, cmp, and crp delivered to [facility] per stunt driver Lab draw Description: Copied from pharmacy order: Parker De La Cruz MD/ Christina Kramer, RN/ Mp GudinoD/ Sonali Cruz RN LABs: Hep B surface antigen, hep B surface antibody, hep B core antibody at next Entyvio infusion ~ 06/01/2024 Problem:Need to Collect Specimen Sample Scheduled Instruct Infection Prevention Description: Instruct patient in strategies to prevent infection: frequent/proper hand-washing techniques, [place] precautions, avoid crowds and persons with known infections, staying current with immunizations, s/s of infection, use of antibiotics and encourage adequate diet and fluid intake. Instruct patient on how to recognize signs and symptoms of infection and when to notify HH nurse and/or physician. Problem:Learning/Teac loraine Needs - IV Therapy Scheduled IV Pump Instruction Description: Instruct patient to use call button if IV becomes painful, or swelling/redness occur at IV site, or if pump alarms during infusion. Call button will be kept within reach of patient throughout infusion. Problem:Learning/Teac loraine Needs - IV Therapy Scheduled IV Access [...] PIV Problem:Learning/Teac loraine Needs - IV Therapy Scheduled documented in this encounter Care Teams Cpc Relationship Specialty Start Date End Date Emmanuel Wesley DO PCP - General Internal Medicine 12/11/21 documented as of this encounter
--- OUTSIDE RECORDS SUMMARY | 2024-11-11 19:10 | XMS_ITS | Encounter Summary ---
Author Organization [facility] [employer] [facility] Address [address] [place] [address] Phone Care Team Providers Care Internal Medicine Specialist Name Role Phone Emmanuel Wesley DO Primary Care Provider [phone]- [phone] Reason for Referral * MRI/CAT/PET Scan (Routine) - Closed Specialty Diagnoses / Procedures Referred By Med bazan Referred To Contact Radiology Diagnoses Crohn's disease of small and large intestines with complication (HCC) Procedures CT Abdomen and Pelvis Enterography W Contrast Parker De La Cruz MD [address] [place] [address] Phone: tel: fax: [address] [address] Referral ID Status Reason Start Date Expiration Date Visits Re quested Visits Authorized [id number] Closed 01/23/2024 01/25/2025 1 1 CARRIER Encounter Details Date Type Department Care Team (Late st Contact Info) Description 12/27/2023 8:45 AM KEY CARRIER Office Visit [facility] Gastroenterology [address] [place] [address] Medical Office Building [address] [place] [address] Parker De La Cruz MD [address] [place] [address] Crohn's disease of small and large intestines [...] on file 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:34 AM 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 CARRIER Gender Identity Not on file Sexual Orientation Not on file documented as of this encounter Last Filed Vital Signs Vital Sign Reading Time Taken Comments Blood Pressure 134/91 12/27/2023 8:54 AM KEY CARRIER Pulse 61 12/27/2023 8:54 AM KEY CARRIER Temperature 36.6 ??C (97.9 ??F) 12/27/2023 8:54 AM CS T Respiratory Rate - - Oxygen Saturation 96% 12/27/2023 8:54 AM KEY CARRIER Inhaled Oxygen Concentration - - Weight 121.6 kg (268 lb) 12/27/2023 8:54 AM KEY CARRIER Height 190.5 cm (6' 3 ) 12/27/2023 8:54 AM KEY CARRIER Body Mass Index 33.5 12/27/2023 8:54 AM KEY CARRIER documented in this encounter Progress Notes * Parker De La Cruz MD - 12/27/2023 8:45 AM CST Images from the original note were not included. [facility]OLOGY Clinic Address: [address] [place] [address], [place] [id number] Mailing Address: [facility] [place], [place] [address] [place], [place] [id number] Consult Note NAME: Ranjit Peralta : 1980 DOS: 12/27/2023 Reason for referral: Crohn's Consult requested by: Kirstie Jarrell, * Primary Care Physician: Emmanuel Wesley DO Chief complaint: abdominal pain HPI Mr. Peralta is a 43 y.o. male with stricturing ileocolonic and perianal Crohn's refractory to multiple therapies now s/p ICR and diverting colostomy is here to establish care with a new GI provider. This is a former patient of Dr. Jones. I reviewed her clinic notes and endoscopy reports. 2006 developed hematochezia Colonoscopy showed colitis Initially [...] 12/24/2022 Laparoscopic ileocolic resection with primary stapled [id number] functional end-to-end anastomosis between the mid ileum and the ascending colon, diverting end-sigmoid colostomy (Shortyrmpolina) Continued vedolizumab postop His quality of life is improved, but he is still adjusting to having a colostomy. He is hoping to have it reversed at some point. No abdominal pain most of the time. If eats lots of fiber, feels likeits going to get stuck. Had one episode where she almost went to ER. Son finished chemo for leukemia in Oct. Was in the hospital in 6 mos. Patient Active Problem List Diagnosis Date Noted [...] 12/24/2022 Laparoscopic ileocolic resection with primary stapled [id number] functional end-to-end anastomosis between the mid ileum [...] Zeposia with no response. June 2022 started Beulah with minimal response Positive JERALD virus so not a candidate for natalizumab fall restarted vedolizumab q 8 since this was what he felt the best on 12/24/2022 Laparoscopic ileocolic resection with primary stapled errz-hq-vjld functional end-to-end anastomosis between the mid ileum and the ascending colon, diverting end-sigmoid colostomy (Jovanni) Continued vedolizumab postop Crohn's disease of both small and large intestine (HCC) 04/06/2013 Past Medical History: Diagnosis Date Anxiety Crohn's disease (CMS/HCC) (HCC) dx 2006 Past Surgical History: Procedure Laterality Date ABCESS DRAINAGE 04/06/201301/17 ANAL FISTULOTOMY 08/22/2013 Current Outpatient Medications: dicyclomine (BENTYL) 20 mg tablet, Take 1 tablet (20 mg total) by mouth 4 (four) times a day as needed (cramping), Disp: 120 tablet, Rfl: 3 ergocalciferol (VITAMIN D) 50,000 unit capsule, Take 1 cap PO monthly, Disp: 12 capsule, Rfl: 0 hyoscyamine (LEVSIN) 0.125 mg SL tablet, Take 1 tablet (0.125 mg total) by mouth every 6 (six) hours as needed for cramping or diarrhea Dissolve tab under the tongue, Disp: 100 tablet, Rfl: 5 vedolizumab (ENTYVIO) 300 mg recon soln, Infuse 5 mL (300 mg total) into a venous catheter every 8 (eight) weeks Infused by: [facility] ([facility] order in [facility] under 'Procedures' tab)., Disp: 5 mL, Rfl: 5 ergocalciferol (Vitamin D2) 50,000 unit capsule, 1 capsule MONTHLY (route: oral), Disp: , Rfl: sodium chloride 0.9 %, flush, (SALINE FLUSH INJ), Infuse 10 mL into a venous catheter as needed (line patency). Indications: line patency (Patient not taking: Reported on 06/14/2023), Disp: , Rfl: Allergies Allergen Reactions Mercaptopurine Analogues (Thiopurines) Joint pain Severe gout like joint pain that starts within days of taking medicine Family History Problem Relation Age of Onset [...] drink Frequency of Binge Drinking: Never ROS As outlined in HPI. All other systems negative. Physical Exam Vital Signs BP 134/91 Pulse 61 Temp 36.6 ??C (97.9 ??F) (Oral) Ht 190.5 cm (6' 3 ) Wt 121.6 kg (268 lb) SpO2 96% BMI 33.50 kg/m?? Body mass index is 33.5 kg/m??. Wt Readings from Last 10 Encounters: 12/27/23 121.6 kg (268 lb) 12/12/23 117.9 kg (260 lb) 08/22/23 117.9 kg (260 lb) 06/14/23 113.9 kg (251 lb 3.2 oz) 02/08/23 107.4 kg (236 lb 12.8 oz) 01/06/23 105.1 kg (231 lb 10 oz) 11/25/22 108 kg (238 lb 1 oz) 10/06/22 109.6 kg (241 lb 9.6 oz) 06/01/22 108 kg (238 lb 3.2 oz) 02/09/22 111.9 kg (246 lb 9.6 oz) [place] body weight: 84.5 kg (186 lb 4.6 oz) Adjusted ideal body weight: 99.3 kg (218 lb 15.6 oz) General: well appearing Eyes: no scleral icterus Mouth: moist mucous membranes Neck: supple, no lymphadenopathy CV: regular rate and rhythm, no murmurs Pulm: breathing comfortably on room air, clear to auscultation bilaterally Abd: soft, nontender, nondistended, normal bowel sounds, colostomy with peristomal hernia Ext: warm and well perfused, no clubbing or cyanosis Neuro: No focal deficits, alert and awake Skin: Warm, dry, no rashes Psych: Normal mood and affect Results: I have reviewed imaging, labs, and endoscopy reports. Labs Lab Results Component Value Date WBC 5.7 12/12/2023 HGB 14.5 12/12/2023 HCT 43.3 12/12/2023 MCV 90.4 12/12/2023 LABPLAT 239 12/12/2023 Lab Results Component Value Date SODIUM 139 12/12/2023 POTASSIUM 3.8 12/12/2023 CHLORIDE 104 12/12/2023 CO2 22 12/12/2023 BUNSER 12 12/12/2023 CREATININE 0.93 12/12/2023 GLUCOSE 93 12/12/2023 CALCIUM 9.4 12/12/2023 Lab Results Component Value Date PROT 6.7 12/12/2023 ALBUMIN 4.6 12/12/2023 BILITOT 0.8 12/12/2023 ALKPHOS 49 12/12/2023 AST 53 (H) 12/12/2023 ALT 90 (H) 12/12/2023 CRP Date Value Ref Range Status 12/12/2023 3.6 <=10.0 mg/L Final 10/17/2023 3.3 <=10.0 mg/L Final 08/26/2017 33.3 (H) 0.0 - 9.9 mg/L Final Erythrocyte sedimentation rate Date Value Ref Range Status 08/26/2017 9 0 - 12 mm/H Final 06/19/2015 22.0 (H) 0.0 - 10.0 mm/hr Comment: A new method was implemented on 05/23/14. Imaging 01/07/2020 MRE 1. Mild acute on chronic inflammation involving the terminal ileum and rectum. Short segment stricturing involving the distal small bowel and terminal ileum without evidence of bowel obstruction. No evidence of penetrating disease. Endoscopy 2020 Colonosocopy shows very severe proctitis with most of the musocal ulcerated, also ICV stricture that was dilated Assessment and Plan: Problem List Items Addressed This Visit Crohn's disease with complication (HCC) - Primary Severe stricturing ileocolonic and perianal crohn's refractory [...] will come right back when he is hookedback up. He should strongly consider keeping it. We can decide on what to do with the rectum later.He is aware of the risks and says [...] and ostomy and his opinion about reversal. Relevant Orders Hepatitis B core antibody, total Blood Hepatitis B surface antibody (immune status) Blood Hepatitis B Surface Antigen Blood CT Abdomen and Pelvis Enterography W Contrast High risk medications (not anticoagulants) long-term use All immunosuppressants carry a theoretical risk of infection, though vedolizumab appears the safestbecause it is gut specific. We recommend the patient get all available vaccinations, including the pneumococcus series, covid19 and annual influenza. We monitor CBC and HFP q 3 months for cytopenias and hepatotoxicity. Relevant Orders Hepatitis B core antibody, total Blood Hepatitis B surface antibody (immune status) Blood Hepatitis B Surface Antigen Blood Healthcare maintenance Colonoscopy and flex sig after CTE for colon cancer screening Parker De La Cruz MD [employer] My total encounter time on 12/27/2023 was 60 minutes which was spent in the activities documented inthe note. This includes time spent prior to the visit and after the visit in direct care of the patient. This time does not include time spent in any separately reportable services. CARRIER documented in this encounter Miscellaneous Notes * Assessment & Plan Note - Parker De La Cruz MD - 12/27/2023 7:43 PM KEY CARRIER Associated Problem(s): Crohn's disease with complication (HCC) Severe stricturing ileocolonic and perianal crohn's refractory [...] will come right back when he is hookedback up. He should strongly consider keeping it. We can decide on what to do with the rectum later.He is aware of the risks and says [...] and ostomy and his opinion about reversal. CARRIER CARRIER * Assessment & Plan Note - Parker De La Cruz MD - 12/27/2023 7:38 PM KEY CARRIER Associated Problem(s): Healthcare maintenance Colonoscopy and flex sig after CTE for colon cancer screening CARRIER * Assessment & Plan Note - Parker De La Cruz MD - 12/27/2023 7:23 PM KEY CARRIER Associated Problem(s): High risk medications (not anticoagulants) long-term use All immunosuppressants carry a theoretical risk of infection, though vedolizumab appears the safestbecause it is gut specific. We recommend the patient get all available vaccinations, including the pneumococcus series, covid19 and annual influenza. We monitor CBC and HFP q 3 months for cytopenias and hepatotoxicity. CARRIER documented in this encounter Plan of Treatment Upcoming Encounters Date Type Department Care Team (Late st Contact Info) Description 11/09/2024 Plan of Care Documentation [address] [place] [address] documented as of this encounter Results * CT Abdomen and [...] AM T: ??02/09/2024 5:46 AM Report ID: [id number] Reading Location: ??[id number] Procedure Note Mendy Phillip MD - 02/09/2024 EXAM DESCRIPTION: CT ENTEROGRAPHY W CONTRAST REASON FOR STUDY: Crohn's disease Dx crohn's 2006. Sx colostomy placement. C/o abd cramping 1-2 [...] Electronically signed by Mendy Phillip M.D. SN: SN Report ID: [id number] Reading Location: [place] [address] Parker De La Cruz MD IMG CT PROCEDURES Final Res ult documented in this encounter Visit Diagnoses Diagnosis Crohn's disease of small and large intestines with complication (HCC)- Primary High risk medications (not anticoagulants) long-term use Encounter for long-term (current) use of other medications Healthcare maintenance Crohn's disease of small and large intestines with complication (HCC) documented in this encounter Discontinued Medications Medication Sig Discontinue Reason Start Date End Da te celecoxib (CeleBREX) 100 mg capsule Take 1 capsule (100 mg total) by mouth daily Alternate therapy 02/08/2023 12/27/2023 allopurinoL (ZYLOPRIM) 100 mg tablet 1 tablet DAILY (route: oral) Therapy completed 04/12/2022 12/27/2023 ALPRAZolam (XANAX) 0.25 mg tabletIndications:Anxie ty Take 1 tablet (0.25 mg total) by mouth daily as needed for anxiety. Therapy completed 05/26/2021 12/27/2023 budesonide 2 mg/actuation foamIndications:Crohn's disease of both small and large intestine without complication (CMS/HCC) (HCC) Insert 1 applicator into the rectum daily Therapy completed 09/17/2022 12/27/2023 colchicine (COLCRYS) 0.6 mg tabletIndications:preve ntion of acute gout attack,as needed for gout attack Take 0.6 mg by mouth daily 11/25/2022 reported he has not used recently, and only uses as needed Therapy completed 09/28/2022 12/27/2023 colchicine (COLCRYS) 0.6 mg tablet 1 tablet DAILY (route: oral) Therapy completed 12/10/2022 12/27/2023 folic acid (FOLVITE) 1 mg tabletIndications:Crohn 's disease of both small and large intestine without complication (CMS/HCC) (HCC) Take 1 tablet (1 mg total) by mouth daily Therapy completed 12/14/2022 12/27/2023 folic acid (FOLVITE) 1 mg tablet 1 tablet DAILY (route: oral) Therapy completed 12/14/2022 12/27/2023 hydrocortisone (CORTENEMA) 100 mg/60 mL enemaIndications:Ulcera tive Colitis Insert 1 enema (100 mg total) into the rectum nightly as needed for irritation Therapy completed 11/04/2022 12/27/2023 hydrocortisone (PROCTOCORT) 10 % (80 mg) rectal foamIndications:Ulcerat brandie Proctitis Insert 1 applicator into the rectum daily Use as directed Therapy completed 11/02/2022 12/27/2023 sulfaSALAzine (AZULFIDINE) 500 mg tablet Take 2 tablets (1,000 mg total) by mouth 4 (four) times a day as needed (joint pain) Therapy completed 02/08/2023 12/27/2023 documented as of this encounter Care Teams Internal Medicine Specialist Relationship Specialty Start Date End Date Emmanuel Wesley DO PCP - General Internal Medicine 12/11/21 documented as of this encounter
--- OUTSIDE RECORDS SUMMARY | 2024-11-11 19:10 | XMS_ITS | Encounter Summary ---
Author Organization [facility] Address [address] [place] [address] Phone Care Team Providers Care Category Director Name Role Phone Emmanuel Wesley DO Primary Care Provider [phone]- [phone] Reason for Visit * Reason Onset Date Comments GI Preprocedure 02/15/2024 Encounter Details Date Type Department Care Team (Late st Contact Info) Description 02/15/2024 Telephone [facility] Gastroenterology [address] [place] [address] Medical Office Building [address] [place] [address] Taryn Bruno RN GI Preprocedure Social History Tobacco Use Types Packs/Day Years [...] on file 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 Tahir Cardoso MD [place], Tressa Jo Ann, RN He will need a standard bowel preparation. Thanks for asking! ----- Message from Tahir Collins MD sent at 02/14/2024 3:08 PM CDT ----- Regarding: RE: anastomotic stricture Great - Sandra Liu can you schedule a colonoscopy with dilation per rectum and per stoma for sometime in the next 4-8 weeks at if possible? Thanks! ----- Message ----- From: Parker De La Cruz MD Sent: 02/14/2024 2:45 PM CDT To: Tahir Collins MD; # Subject: RE: anastomotic stricture Yes that would be great. I told him to expect a call from your office. Thanks. ----- Message ----- From: Tahir Cardoso MD Sent: 02/14/2024 1:16 PM CDT To: Parker De La Cruz MD Subject: RE: anastomotic stricture Lauri Canales, I think that it looks possible and I don't anticipate the hernia to be an issue, but we wont know until we try, I suppose. Would it be helpful we we look per rectum as well? ----- Message ----- From: Parker De La Cruz MD Sent: 02/14/2024 11:06 AM CDT To: Tahir Collins MD Subject: anastomotic stricture This valeria had a lap ICR and diverting colostomy in Dec 2022. He is on vedolizumab. He had an obstructive episode. CTE shows anastomotic stricture causing SBO (I had radiology look at it here). He alsohas a peristomal hernia. Do you think you can do a colonoscopy to dilate his stricture and see whathis TI looks like? Will the hernia be a problem? Parker Gee PROCEDURE Type: colonoscopy Indication: dilation per rectum and per stoma Referring Physician: Parker De La Cruz MD Date Referred: 02.14.24 CLINICAL ASSESSMENT [x] Clinical assessment obtained via phone call with patient 02/15/2024 [x]COVID/Flu Screening questions not vaccinated for flu, yes for COVID [x]BMI>45, Weight >350 lbs [x] Patient had GI procedure/CPAP clinic/GI clinic <30 days (if Yes, no medical screening questions needed unless new clinical issues in last 30 days) Medical screening questions: BMI/Weight: NA CARDIOVASCULAR: None RESPIRATORY/LUNG: None RENAL/LIVER/GI: None GI: Previous COLON or EGD: Hx of Polyps, Sosa, Barretts:no Hx of Constipation:N/A Have you ever required a two day prep? N/A BLEEDING/CLOTTING: None NEUROLOGICAL: None ENDOCRINE: None PRIOR PROCEDURE ISSUES: None SOCIAL WORKER ASSISTANT/: NA IMPLANTS.: None PSYCH/Behavioral Hx: No SC has limited security Notes: PACEMAKER/ICD Y/N: No/NA Device info: Last documented device check: Any shocks since last cards visit (if yes must see cardiology for procedure clearance): DIALYSIS Y/N: No/NA []HD- Schedule on non-HD day, see protocol []PD- Drain PD fluid AM of procedure, if colonoscopy order AB ppx, see protocol REGULAR DIABETIC MEDS Y/N: No/NA []Yes- Discuss diabetes medication management with prescribing physician GLP DIABETIC MEDICATIONS Y/N: No/NA None Educated Patient on the need to hold Medication, and to contact their ordering MD or Oyster Planter about bridging medication for procedure. No [] Yes - Letter Sent to Ordering Physician/Oyster Planter Date sent: Hold instructions: GLP Weight Loss Medications No Educated Patient on the need to hold Medication, and to contact their ordering MD or Oyster Planter about bridging medication for procedure. Y/N: No/NA None [] Yes - Letter Sent to Ordering Physician/Oyster Planter Hold older Instructions: BLOOD THINNERS/ANTICOAG/ANTIPLATELET (BESIDES ASA) Medication: NONE Physician contacted for hold order/date sent: Hold order Method sent: Date hold received: Hold instructions: CONTINUE ASPIRIN INFORMATION REQUESTED []Imaging: []Medical Progress Note/H&P []Medication list []Other: PATIENT OPTIMIZATION []Physician reviewing escalation: []CPAP: Date scheduled: Outcome : [] Location limitations: Scheduling Scheduling location limitations: Tipple Supervisor needed [] NA Language: POA [] NA Name: Required extended education:no SPECIAL PROCEDURE INSTRUCTIONS Scheduling Notes Procedure information Date of procedure: 04.09.24 Time of procedure: 1100 Arrival time: 1000 Location: [facility] Proceduralist: Dr. Collins Instructions Method of instructions: MyChart, Mailed Copy, and Verbal [x]Confirmation of ride/garment manufacturer [x]Post anesthesia restrictions given [x]NPO Instructions: [x]Diet Instructions: [x]Take non-blood thinner prescription meds that morning [x]Bring med list, photo ID, insurance card, no valuables [x]Bring COVID vaccination card (if vaccinated) Bowel Prep Prep prescribed: Suprep Method of Bowel Prep (RX): Tahir Cardoso MD [place], Tressa Jo Ann, SANDRA He will need a standard bowel preparation. Thanks for asking! documented in this encounter Plan of Treatment Upcoming Encounters Date Type Department Care Team (Late st Contact Info) Description 11/09/2024 Plan of Care Documentation [address] [place] [address] documented as of this encounter Visit Diagnoses Diagnosis Stricture intestinal (CMS/HCC) (HCC)- Primary Unspecified intestinal obstruction Crohn's disease of small and large intestines with complication (HCC) documented in this encounter Orders Case Request Count Last Ordered Date First Orde red Date CASE REQUEST GI 1 02/15/2024 documented in this encounter Care Teams Category Director Relationship Specialty Start Date End Date Emmanuel Wesley, PCP - General Internal Medicine 12/11/21 documented as of this encounter
--- OUTSIDE RECORDS SUMMARY | 2024-11-11 19:11 | XMS_ITS | Encounter Summary ---
Author Organization [facility] [facility] Address [address] [place] [address] Phone Care Team Providers Care Computational Linguist Name Role Phone Emmanuel Wesley DO Primary Care Provider +1- [phone] Reason for Visit * Reason Onset Date Comments D/c Stacyyrkarliei - Reinduction of Entyvio 10/22/2022 Encounter Details Date Type Department Care Team (Late st Contact Info) Description 10/22/2022 Documentation [facility] Gastroenterology [address] Advanced [facility] 12th [place] [address] [place] [address] Eryn Dalton LPN D/c Beulah - Reinduction of Entyvio Social History Tobacco Use Types Packs/Day Years [...] on file 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 Infused by: [facility] ([facility] order in [facility] under 'Procedures' tab). 5 mL 11 10/22/2022 3 documented in this encounter Progress Notes * Eryn Dalton LPN - 10/22/2022 7:11 AM CST 10/22/2022: [employer] portal message received from patient on 10/20/2022 (in the encounter from 10/07/2022). Pt reported that he feels that his symptoms have been worse on Skyrizi and off Entyvio. Pt wanted Dr. Jones's thoughts on switching back to Entyvio. Pt does have plans to have surgery and reports that he is looking for some relief up until his surgery. Dr. Jones is OK with discontinuing Skyrizi and switching back to Entyvio. This was further discussed with pt via [employer] portal message, pt was previously getting infused at [place] [address] and was fine with going back to this location if he had to, however, asked about any local options that he may have so we did discuss [facility] based in [place], [place] which would be less of a commute for the patient. Ranjit was in agreement with this plan. Skyrizi discontinued. New [facility] Entyvio order placed (available under 'Procedures' tab in [facility]). Reinduction doses to be administered at weeks 0, 2, 6, and then maintenance dosing Q8 weeks, however, Dr. Jones suspects that patient will likely have surgery before his first maintenance dose as currently planned. [facility] order faxed to [facility] at , referral to home health placed Piotr. [facility]'s team will do a benefits investigation and then submit for auth. Reminder set for follow up. Pt notified that I would be working on this referral today. Will be contacted by [facility]'s team once approval is obtained for Entyvio reinduction. -------Fax Transmission Report------- To: Recipient at [phone] Subject: Re: Kunal Kathryn - Entyvdudley Referral [Secure] Result: The transmission was successful. Explanation: All Pages Ok Pages Sent: 4 Connect Time: 1 minutes, 48 seconds Transmit Time: 10/22/2022 07:34 Transfer Rate: 9600 Status Code: 0000 Retry Count: 0 Job Id: [id number] Unique Id: [id number] Fax Line: 6 Fax Drug Enforcement Agent: [id number] 10/27/2022: Below update received from [facility]. From: Mundo Sparks To: Eryn Dalton;Armando Pat 10/27/2022 3:06 PM RE: Ranjit Cerna, I have submitted authorization request for Ranjit. [employer] [place] typically takes around 15days for authorization. Due to end of year this may take longer but we will continue to work on it. Thank you, Mundo Palacio Undercover Agent [facility] 11/10/2022: Update received from [facility]. Their team has obtained approval for Entyviore-induction. Nursing will be reaching out to patient to discuss scheduling. 11/11/2022: Pt is scheduled for Entyvio re-induction [facility] on 11/25/22, 12/09/22, and 01/06/23. RTISING COPY WRITER RTISING COPY WRITER RTISING COPY WRITER RTISING COPY WRITER RTISING COPY WRITER documented in this encounter Plan of Treatment Upcoming Encounters Date Type Department Care Team (Late st Contact Info) Description 11/09/2024 Plan of Care Documentation [facility] - [address] [place] [address] documented as of this encounter Visit Diagnoses Diagnosis Crohn's disease of both small and large intestine without complication (CMS/HCC) (HCC)- Primary documented in this encounter Discontinued Medications Medication Sig Discontinue Reason Start Date End Da te risankizumab-rzaa (Skyrizi) 360 mg/2.4 mL (150 mg/mL) wearable injectorIndications:Cr ohn's disease of small and large intestines with complication (HCC) Inject 360 mg under the skin as directed First maintenance dose to be administered at week 12 (4 weeks after pt's final IV induction dose). Maintenance dosing thereafter to be administered every 8 weeks. Alternate therapy 07/23/2022 10/22/2022 documented as of this encounter Orders Procedures Count Last Ordered Date First Orde red Date ONCBCN OUTPATIENT FACILITY ORDERS 1 022 documented in this encounter Care Teams Computational Linguist Relationship Specialty Start Date End Date Emmanuel Wesley DO PCP - General Internal Medicine 12/11/21 documented as of this encounter
--- OUTSIDE RECORDS SUMMARY | 2024-11-11 19:11 | XMS_ITS | Encounter Summary ---
Author Organization [facility] Address [address] [place] [address] Phone Care Team Providers Care Metal Fabricating Supervisor Name Role Phone Emmanuel Wesley DO Primary Care Provider [phone]- [phone] Encounter Details Date Type Department Care Team (Late st Contact Info) Description 10/06/2022 10:30 AM WIDE LOAD ESCORT Office Visit [facility] Gastroenterology [address] [place] [address] Medical Office Building [address] [place] [address] Paulina Jones MD [address] [place] [address] Crohn's disease of both small [...] on file 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 Gender Identity Not on file Sexual Orientation Not on file documented as of this encounter Last Filed Vital Signs Vital Sign Reading Time Taken Comments Blood Pressure 126/86 10/06/2022 10:41 AM WIDE LOAD ESCORT Pulse 60 10/06/2022 10:41 AM WIDE LOAD ESCORT Temperature - - Respiratory Rate - - Oxygen Saturation 97% 10/06/2022 10: 41 AM WIDE LOAD ESCORT Inhaled Oxygen Concentration - - Weight 109.6 kg (241 lb 9.6 oz) 022 10:41 AM WIDE LOAD ESCORT Height 190.5 cm (6' 3 ) 10/06/2022 10:4 1 AM WIDE LOAD ESCORT Body Mass Index 30.2 10/06/2022 10:41 AM WIDE LOAD ESCORT documented in this encounter Patient Instructions * Patient Instructions* Steffanie Hunter RN - 10/06/2022 10:30 AM WIDE LOAD ESCORT Return office visit is needed in 4 months We will refer you to Dr. Giovanni Baig- # [phone]. Please call their office to schedule. [email or web address] We will send a prescription for Methotrexate 25mg weekly to your pharmacy LOAD ESCORT LOAD ESCORT LOAD ESCORT LOAD ESCORT LOAD ESCORT documented in this encounter Ordered Prescriptions Prescription Sig Dispense Quantity Refills Last Filled Start Date End Date methotrexate 2.5 mg tabletIndications: Inflammatory Bowel Disease Take 10 tablets (25 mg total) by mouth once a week 120 tablet 10/06/2022 documented in this encounter Progress Notes * Izabela Gregory NP - 10/06/2022 10:30 AM CST REASON FOR VISIT: Follow-up for ileocolonic and perianal Crohn's disease CURRENT MEDICATIONS: Skyrizi 360 mg inject her every 8 weeks, folic acid, colchicine, hydrocortisone suppositories,, Canasa p.r.n. Uceris foam p.r.n., vitamin-D, Xanax p.r.n. PROBLEM LIST: Ileocolonic and perianal Crohn's disease diagnosed in 2006 with a presentation of hematochezia and a perianal fistula with abscess. The patient was previously treated with Humira, Cimzia, Remicade, methotrexate, Entyvio in combination with methotrexate, Stelara, Xeljanz, Otezla x2 months and a retrial of Entyvio monthly. He was later re-tried on Zeposia with no response. This was discontinued andhe was started on Skyrizi in early June 2022 with limited response far. In 2019, the patient had a very tight IC valve and was having intermittent obstructions and was referred to a surgeon but thedecision was made to hold off until we found a medicine that would control his disease activity. This region has been traversed trouble with dilation on more recent scopes but his rectal activity hasbeen much more refractory. The patient ultimately has been on quite a list of almost all FDA-approved medicines (not Tysabri because of elevated JERALD virus) but has been on both FDA approved as well asoff-label drug use including Xeljanz, Zeposia. The patient most recently was seen at the [facility] by Dr. Hamilton for a second opinion. It was recommended that he try Canasa suppositories as well as potentially Skyrizi, although he failed to have any response to Stelara. He started on Skyrizi in June and has received 1 maintenance dose. He is also use topical steroids and mesalamine in efforts to manage his distal symptoms. History of significant gout flares while on thiopurines leading to discontinuation. This could not be prevented with allopurinol and decreased dosing and unfortunately required steroid tapers, indomethacin, colchicine, to be able to control the significant gout flares. Positive Jw Clement virus of 2.15. Difficulty tolerating methotrexate secondary to malaise as well as depressive symptoms. HISTORY OF PRESENT ILLNESS: Ranjit Peralta is a gabby 41 y.o. male with past medical history of refractory Crohn's diseasewho presents today for follow-up. The patient was last seen on 06/01/2022 at which time particularly as rectal disease had failed to respond to all FDA approved therapies for Crohn's as well as Xeljanz and Zeposia He was awaiting approval of Skyrizi. He indicated that as long as he was on Uceris foam twice daily his symptoms were largely tolerable. He was considering a colostomy but was hesitant as he did not want this to be permanent if possible. As he was not improving on supposedly with Entyvio, he was advised to discontinuethis as we anticipated Skyrizi approval shortly. He was able to get his 1st induction infusion on June 07.. He was offered Canasa, Proctofoam, and hydrocortisone suppositories to manage his distal symptoms. The patient presents today reporting that he recently received his 1st maintenance dose of Skyrizi and feels that his stools may be slightly more formed but he continues to have at least 10 bowel movements the vast majority of days. He may have 4-5 bowel movements on good days but these are not part icularly common. He he does not see sriram blood in his stools but may have a small smear on the toilet paper particularly if he is had multiple bowel movements. He is continued to use topical therapies to limit skin breakdown. He denies any bloating and upper abdominal symptoms he associates with his ileal disease being active. He is increasingly open to the idea of a diverting colostomy to improve his quality of life and offer more time for therapies to be introduced and tried. He remains on certain that he would be open to a colostomy long-term as he worries that it will interfere with his activities like swimming. His is an ostomy nurse and feels that she can contribute to maintenance ostomy but also is hopeful that it could be reversed. He is curious if there is a diet that wouldbe helpful. Unfortunately he recently had a gout flare and has not yet been able to get out of it completely as his symptoms seem to improve with colchicine for few days and then return. He is not yet started allopurinol as he associates this with worsening flares however when allopurinol was givento him in the past by us it was often in the context of trying to make thiopurines more tolerable. REVIEW OF SYSTEMS: As per HPI, all other systems negative PHYSICAL EXAM: BP 126/86 Pulse 60 Ht 190.5 cm (6' 3 ) Wt 109.6 kg (241 lb 9.6 oz) SpO2 97% BMI 30.20 kg/m?? General: Well-appearing male in no acute cardiopulmonary distress HEENT: Sclerae are not inflamed or icteric, nose and mouth obscured by mask Pulmonary: Normal breath sounds Abdomen: Nondistended, soft Skin: No worrisome lesions or rashes on exposed skin Neurological: Alert and oriented with no focal deficits OBJECTIVE DATA: Recents labs, imaging studies, and endoscopic procedures were reviewed for trends, and aberrations on the day of the patient's visit. ASSESSMENT AND PLAN: Ranjit Peralta is a gabby 41 y.o. male with past medical history of stricturing ileocolonic Crohn's disease that is increasingly steroid refractory who presents today for follow-up Crohn's disease. Unfortunately the patient seems to be having a limited response to Skyrizi though he at least feels some of his symptoms he associates with ileal disease are slightly improved. We will continue Skyrizi for now and restart methotrexate. We will offer him a referral to Colorectal surgery to discuss a diverting colostomy given his refractory disease and poor quality of life. We willcontinue to monitor his labs quarterly. He can continue topical therapies in the meantime. Can try taking half a tablet of Imodium to decrease his stool frequency on trips but not cause him to have ???blowouts a couple days later Gout. The patient is encouraged to follow a gout diet and particularly increase his fluid intake. We will offer him information on a gout diet. He is advised to consider starting allopurinol as we donot believe he has tried this medication by itself. He should limit NSAID use if possible. The patient and his were given ample opportunity to ask questions and have them answered and was seen by both Dr. Jones and myself at least 40 minutes were spent in counseling and coordination of care. We would like him to return in 3-4 months. This note was created in part with the assistance of [employer] voice recognition software. Batch And Furnace Manager variances may occur. Cosigned by Paulina Jones MD at 10/07/2022 12:11 PM WIDE LOAD ESCORT LOAD ESCORT LOAD ESCORT Associated attestation - Paulina Jones MD - 10/07/2022 12:11 PM WIDE LOAD ESCORT I have seen and examined the patient. I agree with the findings and plan of care as documented in the resident/fellow's note. My total encounter time on 10/06/2022 was 30 minutes which was spent in the activities documented in the note. This includes time spent prior to the visit and after the visit in direct care of the patient. This time does not include time spent in any separately reportable services. documented in this encounter Plan of Treatment Upcoming Encounters Date Type Department Care Team (Late st Contact Info) Description 11/09/2024 Plan of Care Documentation [address] [place] [id number] Scheduled Orders Name Type Priority Associated Diagnoses Orde r Schedule CBC with auto differential Lab Routine Crohn's disease of both small and large intestine without complication (CMS/HCC) (HCC) High risk medications (not anticoagulants) long-term use every 3 months for 2 Occurrences starting 10/06/2022 until 10/06/2023 Hepatic function panel Lab Routine Crohn's disease of both small and large intestine without complication (CMS/HCC) (HCC) High risk medications (not anticoagulants) long-term use every 3 months for 2 Occurrences starting 10/06/2022 until 10/06/2023 TB test, quantiferon gold Lab Routine Crohn's disease of both small and large intestine without complication (CMS/HCC) (HCC) High risk medications (not anticoagulants) long-term use Expected: 10/06/2022, Expires: 10/06/2023 documented as of this encounter Visit Diagnoses Diagnosis Crohn's disease of both small and large intestine without complication (CMS/HCC) (HCC)- Primary High risk medications (not anticoagulants) long-term use Encounter for long-term (current) use of other medications documented in this encounter Discontinued Medications Medication Sig Discontinue Reason Start Date End Da te ozanimod 0.92 mg capsule Take 0.92 mg by mouth daily After completion of induction doses. Alternate therapy 03/02/2022 10/07/2022 ozanimod 0.23 mg (4)- 0.46 mg (3) capsule,dose pack Take 1 tablet by mouth daily Days 1-4: Zeposia 0.23 mg daily. Days 5-7: Zeposia 0.46 mg daily. Day 8 and thereafter: Zeposia 0.92 mg daily. Alternate therapy 02/22/2022 10/07/2022 predniSONE (DELTASONE) 10 mg tabletIndications:Crohn 's disease of both small and large intestine without complication (CMS/HCC) (HCC) Take 40 mg (4 tablets) daily X 1 week, then take 30 mg (3 tablets) daily X 1 week, then take 20 mg (2 tablets) daily X 1 week, then take 10 mg (1 tablet) daily X 1 week. Then stop Prednisone. Therapy completed 12/04/2021 10/07/2022 documented as of this encounter Historical Medications * This list may reflect changes made after this encounter. mesalamine (CANASA) 1,000 mg suppository UNWRAP AND INSERT ONE SUPPOSITORY RECTALLY EVERY NIGHT AT BEDTIME DIRECTED 09/21/2022 3 colchicine (COLCRYS) 0.6 mg tabletIndications :prevention of acute gout attack,as needed for gout attack Take 0.6 mg by mouth daily 11/25/2022 reported he has not used recently, and only uses as needed 09/28/2022 4 allopurinoL (ZYLOPRIM) 100 mg tablet Take 100 mg by mouth daily 09/15/2022 3 added in this encounter Care Teams Metal Fabricating Supervisor Relationship Specialty Start Date End Date Emmanuel Wesley DO PCP - General Internal Medicine 12/11/21 documented as of this encounter
--- OUTSIDE RECORDS SUMMARY | 2024-11-11 19:11 | XMS_ITS | Encounter Summary ---
Author Organization [facility] [employer] [facility] Address [address] [place] [address] Phone Care Team Providers Care Axle And Frame Mechanic Name Role Phone Emmanuel Wesley DO Primary Care Provider +1- [phone] Encounter Details Date Type Department Care Team (Late st Contact Info) Description 06/15/2022 Telephone [facility] Gastroenterology [facility] 12th [place] [address] [place] [address] Heidy Ernandez RN Social History Tobacco Use Types Packs/Day [...] on file 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 * Telephone Encounter - Eryn Dalton LPN - 06/16/2022 10:55 AM CDT Thanks Heidy! * Telephone Encounter - Heidy Ernandez RN - 06/15/2022 2:24 PM CDT John pt * Telephone Encounter - Heidy Ernandez RN - 06/15/2022 2:23 PM CDT Received vm from Brie asking for a call back regarding pt's infusions. documented in this encounter Plan of Treatment Upcoming Encounters Date Type Department Care Team (Late st Contact Info) Description 11/09/2024 Plan of Care Documentation [address] [address] [address] [place] [address] documented as of this encounter Visit Diagnoses Not on filedocumented in this encounter Care Teams Axle And Frame Mechanic Relationship Specialty Start Date End Date Emmanuel Wesley DO PCP - General Internal Medicine 12/11/21 documented as of this encounter
--- OUTSIDE RECORDS SUMMARY | 2024-11-11 19:11 | XMS_ITS | Encounter Summary ---
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
--- OUTSIDE RECORDS SUMMARY | 2024-11-11 19:11 | XMS_ITS | Encounter Summary ---
Author Organization [facility] [employer] [facility] Address [address] [place] [address] Phone Care Team Providers Care Seat Cover Cutter Name Role Phone Emmanuel Wesley DO Primary Care Provider +1- [phone] Encounter Details Date Type Department Care Team (Late st Contact Info) Description 11/02/2022 Orders Only [facility] Gastroenterology [address] 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 Gender Identity Not on file Sexual Orientation Not on file documented as of this encounter Ordered Prescriptions Prescription Sig Dispense Quantity Refills Last Filled Start Date End Date hydrocortisone (PROCTOCORT) 10 % (80 mg) rectal foamIndications:Ul cerative Proctitis Insert 1 applicator into the rectum daily Use as directed 30 each 1 11/02/2022 documented in this encounter Plan of Treatment Upcoming Encounters Date Type Department Care Team (Late st Contact Info) Description 11/09/2024 Plan of Care Documentation [address] [address] [address] [place] [address] documented as of this encounter Visit Diagnoses Diagnosis Crohn's disease of both small and large intestine without complication (CMS/HCC) (HCC) documented in this encounter Discontinued Medications Medication Sig Discontinue Reason Start Date End Da te hydrocortisone (PROCTOCORT) 10 % (80 mg) rectal foamIndications:Ulcera tive Proctitis Insert 1 applicator into the rectum daily Use as directed Reorder 07/29/2022 11/02/2022 documented as of this encounter Care Teams Seat Cover Cutter Relationship Specialty Start Date End Date Emmanuel Wesley DO PCP - General Internal Medicine 12/11/21 documented as of this encounter
--- OUTSIDE RECORDS SUMMARY | 2024-11-11 19:11 | XMS_ITS | Encounter Summary ---
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 Conveyed question will be sent to infusion department and referral center for follow-up. Follow-up: email sent to [facility] <[email or web address]>; [facility] <[email or web address]>; [facility] <[email or web address]> R SPECIALIST documented in this encounter Plan of Treatment Upcoming Encounters Date Type Department Care Team (Late st Contact Info) Description 11/09/2024 Plan of Care Documentation [address] [place] [address] documented as of this encounter Visit Diagnoses Not on filedocumented in this encounter Care Teams Supervisor Plastics Relationship Specialty Start Date End Date Emmanuel Wesley DO PCP - General Internal Medicine 12/11/21 documented as of this encounter
--- OUTSIDE RECORDS SUMMARY | 2024-11-11 19:11 | XMS_ITS | Encounter Summary ---
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 Gender Identity Not on file Sexual Orientation Not on file documented as of this encounter Plan of Treatment Upcoming Encounters Date Type Department Care Team (Late st Contact Info) Description 11/09/2024 Plan of Care Documentation [address] [address] [address] [place] [address] documented as of this encounter Procedures Procedure Name Priority Date/Time Associated Diagnosis Comments SCAN - LABS 08/11/2022 documented in this encounter Results * SCAN - LABS (08/11/2022) us Provider Scanning Final Result documented in this encounter Visit Diagnoses Not on filedocumented in this encounter Care Teams Squad Sergeant Relationship Specialty Start Date End Date Emmanuel Wesley DO PCP - General Internal Medicine 12/11/21 documented as of this encounter
--- OUTSIDE RECORDS SUMMARY | 2024-11-11 19:11 | XMS_ITS | Encounter Summary ---
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 15 tablet 05/26/2021 4 budesonide 2 mg/actuation foamIndications:Cr ohn's disease of both small and large intestine without complication (CMS/HCC) ([facility]) Insert 1 applicator into the rectum daily 33.4 g 09/17/2022 4 colchicine (COLCRYS) 0.6 mg tabletIndications: prevention of acute gout attack,as needed for gout attack Take 0.6 mg by mouth daily 11/25/2022 reported he has not used recently, and only uses as needed 09/28/2022 4 ergocalciferol (VITAMIN D) 50,000 unit capsuleIndications :Low vitamin D level Take 1 cap PO monthly 12 capsule 02/01/2022 4 ergocalciferol (Vitamin D2) 50,000 unit capsule 1 capsule MONTHLY (route: oral) 06/15/2022 4 folic acid (FOLVITE) 1 mg tabletIndications: Crohn's disease of both small and large intestine without complication (CMS/HCC) ([facility]) Take 1 tablet (1 mg total) by mouth daily 90 tablet 3 02/27/2021 3 hydrocortisone (CORTENEMA) 100 mg/60 mL enemaIndications:U lcerative Colitis Insert 1 enema (100 mg total) into the rectum nightly as needed for irritation 1800 mL 11/04/2022 4 hydrocortisone (PROCTOCORT) 10 % (80 mg) rectal foamIndications:Ul cerative Proctitis Insert 1 applicator into the rectum daily Use as directed 30 each 1 11/02/2022 4 hydrocortisone-pra moxine (PROCTOFOAM-HC) rectal foamIndications:Pr uritus Ani [The details of the medication are not available because there are pending changes by a home health clinician.] 10 g 1 12/28/2019 3 mesalamine (CANASA) 1,000 mg suppository UNWRAP AND INSERT ONE SUPPOSITORY RECTALLY EVERY NIGHT AT BEDTIME DIRECTED 09/21/2022 3 vedolizumab (ENTYVIO) 300 mg recon solnIndications:Cr ohn's disease of both small and large intestine without complication (CMS/HCC) (HCC) Infuse 5 mL (300 mg total) into a venous catheter as directed To be infused at weeks 0, 2, 6, and then Q8 weeks (reinduction). Infused by: [facility] Home Care ([facility] order in Epic under 'Procedures' tab). 5 mL 11 10/22/2022 3 vedolizumab (Entyvio) 300 mg recon soln 300 mg DIRECTED (route: intravenous) 04/12/2022 3 documented as of this encounter Discharge Disposition Disposition Code Departure Means Destination Discharge to home or self care documented in this encounter Plan of Treatment Upcoming Encounters Date Type Department Care Team (Late st Contact Info) Description 11/09/2024 Plan of Care Documentation [address] [address] [address] [place] [id number] documented as of this encounter Procedures Procedure Name Priority Date/Time Associated Diagnosis Comments DIFFERENTIAL AUTO Routine 12/09/2022 12: 40 PM LIGHT OIL OPERATOR CBC WITH AUTO DIFFERENTIAL Routine 12/09/2022 12:40 PM LIGHT OIL OPERATOR HEPATIC FUNCTION PANEL Routine 12/09/2022 12:40 PM LIGHT OIL OPERATOR documented in this encounter Results * Differential, auto (12/09/2022 12:40 PM LIGHT OIL OPERATOR) Neutrophil abs 4.8 1.7 - 6.5 K/cumm [facility] Imm gran abs 0.0 0.0 - 0.1 K/cumm [facility] Lymphocyte abs 1.4 0.8 - 3.3 K[facility]umm [facility] Monocyte abs 0.5 0.2 - 0.8 K/cumm [facility] Eosinophil abs 0.1 0.0 - 0.5 K/cumm [facility] Basophil abs 0.0 0.0 - 0.1 K/cumm [facility] Neutrophil pct 69.4 % [facility] Comment: Interpretive Data Percent cell count reference ranges are not reported, since discordance with absolute values may lead to misinterpretation of CBC data. Current Interpretive Data was last revised on 2018. Imm gran pct 0.6 % [facility] Comment: Interpretive Data Percent cell count reference ranges are not reported, since discordance with absolute values may lead to misinterpretation of CBC data. Current Interpretive Data was last revised on 2018. Lymphocyte pct 20.3 % [facility] Comment: Interpretive Data Percent cell count reference ranges are not reported, since discordance with absolute values may lead to misinterpretation of CBC data. Current Interpretive Data was last revised on 2018. Monocyte pct 7.4 % [facility] Comment: Interpretive Data Percent cell count reference ranges are not reported, since discordance with absolute values may lead to misinterpretation of CBC data. Current Interpretive Data was last revised on 2018. Eosinophil pct 1.7 % [facility] Comment: Interpretive Data Percent cell count reference ranges are not reported, since discordance with absolute values may lead to misinterpretation of CBC data. Current Interpretive Data was last revised on 2018. Basophil pct 0.6 % [facility] Comment: Interpretive Data Percent cell count reference ranges are not reported, since discordance with absolute values may lead to misinterpretation of CBC data. Current Interpretive Data was last revised on 2018. Blood 12/09/2022 12:4 0 PM LIGHT OIL OPERATOR 12/09/2022 4:26 PM LIGHT OIL OPERATOR us Paulina Jones MD LAB BLOOD ORDERABLE S Final Result [facility] Department [place] [address] * (ABNORMAL) CBC with auto differential (12/09/2022 12:40 PM LIGHT OIL OPERATOR) [facility] WBC 7.0 3.8 - 9.9 K/cumm [facility] Hgb 12.6(L) 13.0 - 17.5 g/dL [facility] Hct 39.3 38.9 - 50.3 % [facility] Plt 302 150 - 400 K/cumm [facility] MPV 9.9 9.1 - 12.3 fL [facility] RBC 4.43 4.30 - 5.80 M/cumm [facility] MCV 88.7 81.3 - 96.4 fL [facility] MCH 28.4 27.1 - 33.3 pg [facility] MCHC 32.1(L) 32.3 - 35.7 g/dL [facility] RDW CV 13.7 11.1 - 14.9 % [facility] RDW SD 44.0 35.7 - 48.1 fL [facility] NRBC abs 0.00 0.00 - 0.01 K/cumm [facility] Blood 12/09/2022 12:4 0 PM LIGHT OIL OPERATOR 12/09/2022 4:26 PM LIGHT OIL OPERATOR us Paulina Jones MD LAB BLOOD ORDERABLE S Final Result [facility] Department [place] [address] * Hepatic function panel (12/09/2022 12:40 PM LIGHT OIL OPERATOR) [facility] Bilirubin, total 0.4 0.1 - 1.2 mg/dL [facility] Bilirubin, direct <0.2 0.1 - 0.3 mg/dL [facility] Protein, pl 7.1 6.5 - 8.5 g/dL [facility] Albumin 4.2 3.5 - 5.0 g/dL [facility] Alk phos 60 40 - 130 Units/L [facility] ALT 22 7 - 55 Units/L [facility] AST 20 10 - 50 Units/L [facility] Blood 12/09/2022 12:4 0 PM LIGHT OIL OPERATOR 12/09/2022 4:26 PM LIGHT OIL OPERATOR us Paulina Jones MD LAB BLOOD ORDERABLE S Final Result Performing Organization Address City/State/[facility] Co de Phone Number [facility] Department [place] [address] documented in this encounter Visit Diagnoses Not on filedocumented in this encounter Care Teams Integrity Consultant Relationship Specialty Start Date End Date Emmanuel Wesley DO PCP - General Internal Medicine 12/11/21 documented as of this encounter
--- OUTSIDE RECORDS SUMMARY | 2024-11-11 19:11 | XMS_ITS | Encounter Summary ---
Author Organization [facility] Home Care Servic es Address [address] [place] [address] Phone Care Team Providers Care Glass Grinder Name Role Phone Emmanuel Wesley DO Primary Care Provider +1- [phone] Reason for Visit * Medication Authorization (Routine) - Closed Specialty Diagnoses / Procedures Referred By Med bazan Referred To Contact Paulina Jones MD [address] [place] [address] Phone: tel: fax: Referral ID Status Reason Start Date Expiration Date Visits Re quested Visits Authorized [id number] Closed 11/25/2022 12/25/2023 1 1 Encounter Details Date Type Department Care Team (Latest Contact Info) Description 11/25/2022 1:00 PM SOCIOLOGY FACULTY MEMBER Home Care Visit [facility] [address] [place] [address] Vicki Egan RN SN NON OASIS START OF CARE Social History Tobacco Use Types Packs/Day Years [...] on file 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 Gender Identity Not on file Sexual Orientation Not on file documented as of this encounter Last Filed Vital Signs Vital Sign Reading Time Taken Comments Blood Pressure 132/72 11/25/2022 1:44 PM SOCIOLOGY FACULTY MEMBER Pulse 52 11/25/2022 1:44 PM SOCIOLOGY FACULTY MEMBER Temperature 36.5 ??C (97.7 ??F) 11/25/2022 1:44 PM CS T Respiratory Rate 16 11/25/2022 1:44 PM SOCIOLOGY FACULTY MEMBER Oxygen Saturation 100% 11/25/2022 1:44 PM SOCIOLOGY FACULTY MEMBER Inhaled Oxygen Concentration - - Weight 108 kg (238 lb 1 oz) 11/25/2022 12:25 PM SOCIOLOGY FACULTY MEMBER Height 190.5 cm (6' 3 ) 11/25/2022 12:25 PM SOCIOLOGY FACULTY MEMBER Body Mass Index 29.76 11/25/2022 12:25 PM SOCIOLOGY FACULTY MEMBER documented in this encounter Miscellaneous Notes * Home Health Plan for Next Visit - Vicki Egan RN - 11/25/2022 12:07 PM CST Reason for today's visit start of care for Entyvio infusions in the Treatment Room Discuss plan of care with patient Discharge planning when assisted is no longer needed Plan for next visit second induction dose of Entyvio. Message sent to Libby Frazier RN and Ivana Mcrae/Agriscience Technology Instructor to confirm the dates that patient stated he had already scheduled (12/09/2022 and 01/06/2023) OLOGY FACULTY MEMBER documented in this encounter Plan of Treatment Upcoming Encounters Date Type Department Care Team (Late st Contact Info) Description 11/09/2024 Plan of Care Documentation [facility] - [address] [address] [address] [place] [address] documented as of this encounter Visit Diagnoses Not on filedocumented in this encounter Administered Medications Active Administered Medications - up to 3 most recent administrations Medication Order MAR Action Action Date Dose Rate Site sodium chloride 0.9 %, flush, (SALINE FLUSH INJ) 10 mL, intravenous, As needed, line patency, Starting on Ashlyn 11/25/22 at 1424, Indications: line patencyIndications:line patency Given 11/25/2022 1:00 PM SOCIOLOGY FACULTY MEMBER 40 mL Inactive Administered Medications - up to 3 most recent administrations Medication Order MAR Action Action Date Dose Rate Site vedolizumab (ENTYVIO) 300 mg recon soln 300 mg, intravenous, See admin instructions, Starting on Ashlyn 11/25/22 at 1328, To be infused at weeks 0, 2, 6, and then Q8 weeks (reinduction). Infused by: [facility] Home Care ([facility] order in Epic under 'Procedures' tab). Given 11/25/2022 1:00 PM SOCIOLOGY FACULTY MEMBER 300 mg documented in this encounter Home Health Visit - Care Plan Visit Details Visit Type -SN Non-OASIS Sta rt of Care Discipline -Residential Problems Problem Description Start Date Status Goals Interventions Specialty Medication - General Disciplines: Residential SN to provide safe assessment of patient prior to use of general specialty medication 11/25/2022 Active - 3 problem interventions scheduled/documen luisa in this visit Medications Disciplines: Residential Management of IV Medications 11/25/2022 Active - 2 problem interventions scheduled/documen luisa in this visit Need to Collect Specimen Sample Disciplines: Residential Need to collect specimen sample 11/25/2022 Active - 1 problem intervention scheduled/documen luisa in this visit Safety concerns Disciplines: Residential Safety needs related to infusion administration 11/25/2022 Active - 1 problem intervention scheduled/documen luisa in this visit Learning/Teachin g Needs - IV Therapy Disciplines: Residential Teaching and learning needs for performing home IV therapy 11/25/2022 Active - 7 problem interventions scheduled/documen luisa in this visit Monitor patient's vital signs every home health visit Disciplines: SN, PT, OT, CONTOUR STITCHER, ENVIRONMENTAL HEALTH PHYSICIAN, Skilled Disciplines Monitor patient's vital signs every home health visit. 11/25/2022 Active 1 goal linked to scheduled/docume nted intervention 1 goal intervention scheduled/documen luisa in this visit Goals Goal Associated Problem Outcome Goal Met? Visit Notes Measure vital signs during every home health visit during episode of care Description: Home child abuse worker to measure vital signs during every home [...] home. Problem:Specialty Medication - General Completed Patient verbalized good understanding of signs of infusion reaction and whern to call MD Agency, . Pre Medication Assessment Description: Skilled Nurse to complete infusion checklist. Skilled Nurse to monitor vital signs. If patients has a temperature greater than 100 degrees F (37.8 C), notify the pharmacist/physician. Skilled Nurse to obtain IV access. Notify pharmacist when IV access obtained. Problem:Specialty Medication - General Completed Learning Teaching Needs Description: Skilled Nurse to instruct patient/caregiver on the potential side effects of the medication. Problem:Specialty Medication - General Completed Entyvio discussed. PAtient verbalized good understanding of Entyvio, side effects, desired effects, plan of care. Instruct medications Description: Instruct patient/caregiver in medication administration, purpose, dosages, preparation, scheduling, side effects, food/drug interactions, storage, drug allergies, and potential complications. Problem:Medications Completed Medications reviewed. PAtient expressed good understanding. IV Infusion Description: Instruct patient/caregiver on IV infusion Entyvio. Problem:Medications Completed Patient expressed appropriate understanding of Entyvio. Lab draw Description: Treatment Plan: After initial infusion (week 0), infuse on week 2, 6 and th en every 8 weeks for 52 weeks. LABs: CBC w/diff, HFP every 8 weeks with infusions. Fax results to [phone] & [phone]. Annual LABs: Draw T-SPOT.TB or Quantiferon TB Gold with initial induction. Following pharmacist is Cameron Siegel Problem:Need to Collect Specimen Sample Completed CBC/diff, HFP, T SPOT TB drawn with peripheral venipuncture for peripheral IV placement, without difficulty, and specimens to laboratory. Instruct on IV complications Description: Instruct patient/caregiver on how to manage breaks in line, signs/symptoms of complications, who to contact for complications and how to contact the nurse, and infusion service Problem:Safety concerns Completed Patient expressed appropriate understanding of monitoring IV sites post infusion and caring for sites appropriately. Instruct on IV supplies Description: Instruct patient/caregiver in how to gather supplies, how to restock IV supplies in the home, prepare supplies, administer IV medication and disconnect IV medication, inspecting solution and supplies before infusing, and waste disposal. Problem:Learning/Tea haresh Needs - IV Therapy Completed Supplies provided and utilized in Treatment Room. Instruct Infection Prevention Description: Instruct patient/caregiver in strategies to prevent infection. Instruct patient/caregiver on how to recognize signs and symptoms of infection and when to notify nurse and/or physician. Problem:Learning/Tea haresh Needs - IV Therapy Completed Patient expressed appropriate understanding of monitoring for signs of infection and when to call MD, Agency, . IV Administration Description: Skilled Nurse to administer medications and flushes as prescribed/needed. Reason for Therapy: IV Entyvio. Problem:Learning/Tea haresh Needs - IV Therapy Completed Dressing change Description: Skilled Nurse to place peripheral IV for medication administration and for any ordered bloodwork/labs. Skilled Nurse to administer IV medications and flushes and to remove peripheral IV at completion of infusion, ensuring intact catheter, adequate hemostasis, and appropriate dressing to site. Type of line: peripheral IV Problem:Learning/Tea haresh Needs - IV Therapy Completed IV Discontinuation Description: Skilled nurse to remove [...] infusion/flushes. Problem:Learning/Tea haresh Needs - IV Therapy Scheduled [...] health visit during episode of care Completed documented in this encounter Care Teams Glass Grinder Relationship Specialty Start Date End Date Emmanuel Wesley DO PCP - General Internal Medicine 12/11/21 documented as of this encounter
--- OUTSIDE RECORDS SUMMARY | 2024-11-11 19:11 | XMS_ITS | Encounter Summary ---
Author Organization [facility] Address [address] [place] [address] Phone Care Team Providers Care Incident Analyst Name Role Phone Emmanuel Wesley DO Primary Care Provider +1- [phone] Reason for Visit * Episode Based Medications (Routine) - Closed Specialty Diagnoses / Procedures Referred By Med bazan Referred To Contact Diagnoses Crohn's disease of small and large intestines with complication (HCC) Paulina Jones MD [address] [place] [address] Phone: tel: fax: [facility] [address] [place] [address] [address] [place] [address] Phone: tel: Referral ID Status Reason Start Date Expiration Date Visits Re quested Visits Authorized [id number] Closed 10/28/2020 11/03/2022 10 10 Encounter Details Date Type Department Care Team (Late st Contact Info) Description 05/06/2022 1:00 PM CDT Infusion [facility] [address] [place] [address] [address] [place] [address] Crohn's disease of small and large intestines with complication (CMS/HCC) (HCC) (Primary Dx) Social History Tobacco Use Types Packs/Day Years Used Date Smoking Tobacco: Former Cigarettes Q uit: 2005 Smokeless Tobacco: Never Alcohol Use Standard Drinks/Week Comments Yes 0 (1 standard drink = 0.6 oz pur e alcohol) occasional AUDIT-C Answer Date Recorded Q1: How often do you have a drink containing alc ohol? 2-3 times a week 08/07/2021 Q2: How many drinks containi ng alcohol do you have on a typical day when you are drinking? 3 or 4 08/07/2021 Q3: How often do you have si x or more drinks on one occasion? 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 Pt states that he feels well today and has not had any recent fevers or infections. PIV started and pt tolerated well. Will continue to monitor. Pt infusion completed at 1353. Pt tolerated well. Pt has no questions or concerns at the time of discharge documented in this encounter Plan of Treatment Upcoming Encounters Date Type Department Care Team (Late st Contact Info) Description 11/09/2024 Plan of Care Documentation [facility] - [address] [place] [address] documented as of this encounter Visit Diagnoses Diagnosis Crohn's disease of small and large intestines with complication (HCC)- Primary documented in this encounter Administered Medications Inactive Administered Medications - up to 3 most recent administrations Medication Order MAR Action Action Date Dose Rate Site sodium chloride 0.9% flush 10 mL 10 mL, intravenous, As needed, line care, Starting on Ashlyn 05/06/22 at 1300, Flush pre and post IV catheter use.Indications:Crohn's disease of small and large intestines with complication (HCC) Given 05/06/2022 1:10 PM CDT 10 mL vedolizumab (ENTYVIO) 300 mg in sodium chloride 0.9% 250 mL IVPB 300 mg, intravenous, at 510 mL/hr, Administer over 30 Minutes, Once, On Ashlyn 05/06/22 at 1400, For 1 doseIndications:Crohn's disease of small and large intestines with complication (HCC) New Bag 05/06/2022 1:20 PM CDT 300 mg 510 mL/hr documented in this encounter Orders Nursing Count Last Ordered Date First Orde red Date ONCBCN PROVIDER COMMUNICATION 1 1 2 VITAL SIGNS PRE-INFUSION 1 05/06/2022 Appointment Requests Count Last Ordered Date Fi rst Ordered Date INFUSION APPT REQUEST 60 MIN 1 05/06/2022 documented in this encounter Care Teams Incident Analyst Relationship Specialty Start Date End Date Emmanuel Wesley DO PCP - General Internal Medicine 12/11/21 documented as of this encounter
--- OUTSIDE RECORDS SUMMARY | 2024-11-11 19:11 | XMS_ITS | Encounter Summary ---
Author Organization [facility] [employer] [facility] Address [address] [place] [address] Phone Care Team Providers Care Automation Test Engineer Name Role Phone Emmanuel Wesley DO Primary Care Provider [phone]- [phone] Reason for Visit * Episode Based Medications (Routine) - Closed Specialty Diagnoses / Procedures Referred By Med bazan Referred To Contact Diagnoses Crohn's disease of small and large intestines with complication (HCC) Paulina Jones MD [address] [place] [address] Phone: tel: fax: [facility] Infusion Therapy [address] [place] [address] [address] [place] [address] Phone: tel: Referral ID Status Reason Start Date Expiration Date Visits Re quested Visits Authorized [id number] Closed 10/28/2020 11/03/2022 10 10 Encounter Details Date Type Department Care Team (Late st Contact Info) Description 04/08/2022 1:30 PM CDT Infusion [facility] Therapy [address] [place] [address] [address] [place] [address] Crohn's disease of small and [...] on file 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 PIV placed and infusion initiated after labs obtained. Pt tolerated infusion well, ambulatory upon discharge. documented in this encounter Plan of Treatment Upcoming Encounters Date Type Department Care Team (Late st Contact Info) Description 11/09/2024 Plan of Care Documentation [facility] - [address] [place] [address] documented as of this encounter Visit Diagnoses Diagnosis Crohn's disease of small and large intestines with complication (HCC)- Primary documented in this encounter Administered Medications Inactive Administered Medications - up to 3 most recent administrations Medication Order MAR Action Action Date Dose Rate Site vedolizumab (ENTYVIO) 300 mg in sodium chloride 0.9% 250 mL IVPB 300 mg, intravenous, at 510 mL/hr, Administer over 30 Minutes, Once, On Ashlyn 04/08/22 at 1445, For 1 doseIndications:Crohn's disease of small and large intestines with complication (HCC) New Bag 04/08/2022 1:48 PM CDT 300 mg 510 mL/hr documented in this encounter Orders Medications Ordered That Steven ht Not Have Been Administered Count Last Ordered Date First Ordered Date sodium chloride 0.9% flush 10 mL 1 04/08/20 vedolizumab (ENTYVIO) 300 mg in sodium chloride 0.9% 250 mL IVPB 1 04/08/2022 Nursing Count Last Ordered Date First Orde red Date ONCBCN PROVIDER COMMUNICATION 1 1 2 VITAL SIGNS PRE-INFUSION 1 04/08/2022 documented in this encounter Care Teams Automation Test Engineer Relationship Specialty Start Date End Date Emmanuel Wesley DO PCP - General Internal Medicine 12/11/21 documented as of this encounter
--- OUTSIDE RECORDS SUMMARY | 2024-11-11 19:11 | XMS_ITS | Encounter Summary ---
Author Organization [facility] Address [address] [place] [address] Phone Care Team Providers Care Manufacture Specialist Name Role Phone Emmanuel Wesley DO Primary Care Provider [phone]- [phone] Reason for Visit * Reason Comments OP Infusion * Medication Authorization (Routine) - Closed Specialty Diagnoses / Procedures Referred By Med bazan Referred To Contact Paulina Jones MD [address] [place] [address] Phone: tel: fax: Referral ID Status Reason Start Date Expiration Date Visits Re quested Visits Authorized [id number] Closed 12/09/2022 01/08/2024 1 1 Encounter Details Date Type Department Care Team (Latest Contact Info) Description 12/09/2022 12:00 PM DIABETES CLINICAL MANAGER Home Care Visit [facility] [address] [address] [address] [place] [address] Margoth Springer RN SN INFUSION TREATMENT ROOM [...] on file 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:34 AM DIABETES CLINICAL MANAGER Gender Identity Not on file Sexual Orientation Not on file documented as of this encounter Last Filed Vital Signs Vital Sign Reading Time Taken Comments Blood Pressure 122/76 12/09/2022 2:00 PM DIABETES CLINICAL MANAGER Pulse 57 12/09/2022 2:00 PM DIABETES CLINICAL MANAGER Temperature 36.4 ??C (97.5 ??F) 12/09/2022 2:00 PM CS T Respiratory Rate 17 12/09/2022 2:00 PM DIABETES CLINICAL MANAGER Oxygen Saturation 100% 12/09/2022 2:00 PM DIABETES CLINICAL MANAGER Inhaled Oxygen Concentration - - Weight - - Height - - Body Mass Index - - documented in this encounter Miscellaneous Notes * Home Health Visit Narrative - Margoth Springer RN - 12/09/2022 1:23 PM CST Pt seen in treatment rm for Entyvio infusion per zyno pump tolerated well, VSS prior and on completion of infusion, reviewed care plan interventions with pt including s/s of infection, adverse effects of medication, pt verbalized good understanding, IV discontinued ETES CLINICAL MANAGER * Home Health Plan for Next Visit - Margoth Springer RN - 12/09/2022 1:09 PM CST Reason for today's visit Entyvio infusion per zyno pump, assessments, labs/bloodwork, peripheral IVplacement. Discuss plan of care with patient including s/s of infection, adverse effects of medication, pt verbalized good understanding Discharge planning indefinite Plan for next visit 01/06/23 for assessmentys, peripheral IV placement, medication administration, ordered lab studies. ETES CLINICAL MANAGER documented in this encounter Plan of Treatment Upcoming Encounters Date Type Department Care Team (Late st Contact Info) Description 11/09/2024 Plan of Care Documentation [facility] - [address] [address] [address] [place] [address] documented as of this encounter Visit Diagnoses Not on filedocumented in this encounter Administered Medications Active Administered Medications - up to 3 most recent administrations Medication Order MAR Action Action Date Dose Rate Site sodium chloride 0.9 %, flush, (SALINE FLUSH INJ) 10 mL, intravenous, As needed, line patency, Starting on Ashlyn 12/09/22 at 1313, Indications: line patencyIndications:line patency Given 12/09/2022 12:50 PM DIABETES CLINICAL MANAGER 40 mL Inactive Administered Medications - up to 3 most recent administrations Medication Order MAR Action Action Date Dose Rate Site vedolizumab (ENTYVIO) 300 mg recon soln 300 mg, intravenous, See admin instructions, Starting on Ashlyn 12/09/22 at 1318, To be infused at weeks 0, 2, 6, and then Q8 weeks (reinduction). Infused by: [facility] ([facility] order in Epic under 'Procedures' tab). Given 12/09/2022 12:50 PM DIABETES CLINICAL MANAGER 300 mg documented in this encounter Home Health Visit - Care Plan Visit Details Visit Type -SN Infusion Christa tment Room Discipline -Jail Problems Problem Description Start Date Status Goals Interventions Specialty Medication - General Disciplines: Jail SN to provide safe assessment of patient prior to use of general specialty medication 11/25/2022 Active - 3 problem interventions scheduled/documen luisa in this visit Medications Disciplines: Jail Management of IV Medications 11/25/2022 Active - 2 problem interventions scheduled/documen luisa in this visit Need to Collect Specimen Sample Disciplines: Jail Need to collect specimen sample 11/25/2022 Active - 1 problem intervention scheduled/documen luisa in this visit Safety concerns Disciplines: Jail Safety needs related to infusion administration 11/25/2022 Active - 1 problem intervention scheduled/documen luisa in this visit Learning/Teachin g Needs - IV Therapy Disciplines: Jail Teaching and learning needs for performing home IV therapy 11/25/2022 Active - 7 problem interventions scheduled/documen luisa in this visit Monitor patient's vital signs every home health visit Disciplines: SN, PT, OT, OUTER DIAMETER TECHNICIAN, WOODEN SH[employer] HARDWARE INSTALLER, Skilled Disciplines Monitor patient's vital signs every home health visit. 11/25/2022 Active 1 goal linked to scheduled/docume nted intervention 1 goal intervention scheduled/documen luisa in this visit Goals Goal Associated Problem Outcome Goal Met? Visit Notes Measure vital signs during every home health visit during episode of care Description: Home store clerk checker to measure vital signs during every home [...] the medication. Problem:Specialty Medication - General Completed Patient expressed good understanding of ENtyvio, signs of infusion reaction and when to call [facility], . Instruct medications Description: Instruct patient/caregiver in medication administration, purpose, dosages, preparation, scheduling, side effects, food/drug interactions, storage, drug allergies, and potential complications. Problem:Medications Completed Medications reviewed. PAtient expressed good understanding. IV Infusion Description: Instruct patient/caregiver on IV infusion Entyvio. Problem:Medications Completed Dicussed Entyvio infusion with pt including adverse side effects, pt verbalized good understanding Lab draw Description: Treatment Plan: After initial infusion (week 0), infuse on week 2, 6 and th en every 8 weeks for 52 weeks. LABs: CBC w/diff, HFP every 8 weeks with infusions. Fax results to [phone] & [phone]. Annual LABs: Draw T-SPOT.TB or Quantiferon TB Gold with initial induction. Following pharmacist is Cameron Siegel Problem:Need to Collect Specimen Sample Completed labs drawn through peripheral IV tolerated well. CBC/diff and hepatic function panel drawn wqith PIV placement without difficulty and specimen to laboratory. Instruct on IV complications Description: Instruct patient/caregiver on how to manage breaks in line, signs/symptoms of complications, who to contact for complications and how to contact the nurse, and infusion service Problem:Safety concerns Completed PAtient expressed good understanding of caring for post iv sites and when to call [facility], . IV Administration Description: Skilled Nurse to administer medications and flushes as prescribed/needed. Reason for Therapy: IV Entyvio. Problem:Learning/Tea harseh Needs - IV Therapy Completed Entyvio infusion via peripheral IV, tolerated well, pt verbalized good understanding of IV complications including infiltration and phlebitis Dressing change Description: Skilled Nurse to place peripheral IV for medication administration and for any ordered bloodwork/labs. Skilled Nurse to administer IV medications and flushes and to remove peripheral IV at completion of infusion, ensuring intact catheter, adequate hemostasis, and appropriate dressing to site. Type of line: peripheral IV Problem:Learning/Tea haresh Needs - IV Therapy Completed Peripheral IV placed with three attempts, 2 unsuccessful attempts (right forearm and left forearm by DON RN unsuccessful, right hand by LINDSAY RN successful). Instruct on IV flush Description: Instruct patient/caregiver in how to perform flushing of IV line according to MD orders or protocol. Problem:Learning/Tea haresh Needs - IV Therapy Completed SN performed al;l flushing per protocol during Treatment Room visit. IV Discontinuation Description: Skilled nurse to remove peripheral IV at completion of infusion, per protocol. Problem:Learning/Tea haresh Needs - IV Therapy Completed peripheral IV removed after entryvio infusion pt tolerated well Instruct on IV supplies Description: Instruct patient/caregiver in how to gather supplies, how to restock IV supplies in the home, prepare supplies, administer IV medication and disconnect IV medication, inspecting solution and supplies before infusing, and waste disposal. Problem:Learning/Tea haresh Needs - IV Therapy Scheduled Instruct Infection Prevention Description: Instruct patient/caregiver in strategies to prevent infection. Instruct patient/caregiver on how to recognize signs and symptoms of infection and when to notify nurse and/or physician. Problem:Learning/Tea haresh Needs - IV Therapy Scheduled IV Access [...] visit during episode of care Completed VSS prior and on completion of infusion documented in this encounter Care Teams Manufacture Specialist Relationship Specialty Start Date End Date Emmanuel Wesley DO PCP - General Internal Medicine 12/11/21 documented as of this encounter
--- OUTSIDE RECORDS SUMMARY | 2024-11-11 19:11 | XMS_ITS | Encounter Summary ---
Author Organization [facility] [employer] [facility] Address [address] [place] [address] Phone Care Team Providers Care Paraffiner Name Role Phone Emmanuel Wesley DO Primary Care Provider +1- [phone] Encounter Details Date Type Department Care Team (Late st Contact Info) Description 05/13/2022 Orders Only [facility] Gastroenterology [address] 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 Pt has been switched to Skyrizi. documented in this encounter Miscellaneous Notes * Addendum Note - Eugenio Dalton LPN - 05/13/2022 2:13 PM CDTAddended by: EUGENIO DALTON on: 05/21/2022 07:15 AM Modules accepted: Orders documented in this encounter Plan of Treatment Upcoming Encounters Date Type Department Care Team (Late st Contact Info) Description 11/09/2024 Plan of Care Documentation [address] [address] [address] [place] [address] documented as of this encounter Visit Diagnoses Not on filedocumented in this encounter Discontinued Medications Medication Sig Discontinue Reason Start Date End Da te vedolizumab (ENTYVIO) 300 mg recon soln Infuse 300 mg into a venous catheter every 4 (four) weeks Other 05/21/2022 documented as of this encounter Care Teams Paraffiner Relationship Specialty Start Date End Date Emmanuel Wesley DO PCP - General Internal Medicine 12/11/21 documented as of this encounter
--- OUTSIDE RECORDS SUMMARY | 2024-11-11 19:11 | XMS_ITS | Encounter Summary ---
Author Organization [facility] Home Care Servic es Address [address] [place] [address] Phone Care Team Providers Care Training Consultant Name Role Phone Emmanuel Wesley DO Primary Care Provider [phone]- [phone] Reason for Visit * Medication Authorization (Routine) - Closed Specialty Diagnoses / Procedures Referred By Med bazan Referred To Contact Paulina Jones MD [address] [place] [address] Phone: tel: fax: Referral ID Status Reason Start Date Expiration Date Visits Re quested Visits Authorized [id number] Closed 01/06/2023 02/05/2024 1 1 Encounter Details Date Type Department Care Team (Latest Contact Info) Description 01/06/2023 9:45 AM VERIFY REP Home Care Visit [facility] [address] [address] [address] [place] [address] Vicki Egan RN SN INFUSION TREATMENT ROOM Social History [...] on file 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:34 AM VERIFY REP Gender Identity Not on file Sexual Orientation Not on file documented as of this encounter Last Filed Vital Signs Vital Sign Reading Time Taken Comments Blood Pressure 128/67 01/06/2023 10:35 AM VERIFY REP Pulse 58 01/06/2023 10:35 AM VERIFY REP Temperature 36.1 ??C (97 ??F) 01/06/2023 10:35 AM VERIFY REP Respiratory Rate 16 01/06/2023 10:35 AM VERIFY REP Oxygen Saturation 98% 01/06/2023 10:35 AM VERIFY REP Inhaled Oxygen Concentration - - Weight 105.1 kg (231 lb 10 oz) 01/06/2023 9:18 A M VERIFY REP Height 190.5 cm (6' 3 ) 01/06/2023 9:18 AM VERIFY REP Body Mass Index 28.95 01/06/2023 9:18 AM VERIFY REP documented in this encounter Miscellaneous Notes * Home Health Plan for Next Visit - Vicki Egan RN - 01/06/2023 10:17 AM CST Reason for today's visit assessments, labs/bloodwork, medication administration. Discuss plan of care with patient Discharge planning when prison is no longer needed. Plan for next visit 03/03/2023 appointment made with Ivana Mcrae/Covering Machine Operator for [place]. Assessments, labs/bloodwork, peripheral IV placement FY REP documented in this encounter Plan of Treatment Upcoming Encounters Date Type Department Care Team (Late st Contact Info) Description 11/09/2024 Plan of Care Documentation [facility] - [address] [address] [address] [place] [address] documented as of this encounter Visit Diagnoses Not on filedocumented in this encounter Administered Medications Active Administered Medications - up to 3 most recent administrations Medication Order MAR Action Action Date Dose Rate Site sodium chloride 0.9 %, flush, (SALINE FLUSH INJ) 10 mL, intravenous, As needed, line patency, Starting on Ashlyn 01/06/23 at 1004, Indications: line patencyIndications:line patency Given 01/06/2023 9:30 AM VERIFY REP 50 mL Inactive Administered Medications - up to 3 most recent administrations Medication Order MAR Action Action Date Dose Rate Site vedolizumab (ENTYVIO) 300 mg recon soln 300 mg, intravenous, See admin instructions, Starting on Ashlyn 01/06/23 at 1004, To be infused at weeks 0, 2, 6, and then Q8 weeks (reinduction). Infused by: [facility] Home Care ([facility] order in Epic under 'Procedures' tab). Given 01/06/2023 9:55 AM VERIFY REP 300 mg documented in this encounter Home Health Visit - Care Plan Visit Details Visit Type -SN Infusion Christa tment Room Discipline -Alf Problems Problem Description Start Date Status Goals Interventions Specialty Medication - General Disciplines: Alf SN to provide safe assessment of patient prior to use of general specialty medication 11/25/2022 Active - 3 problem interventions scheduled/documen luisa in this visit Medications Disciplines: Alf Management of IV Medications 11/25/2022 Active - 2 problem interventions scheduled/documen luisa in this visit Need to Collect Specimen Sample Disciplines: Alf Need to collect specimen sample 11/25/2022 Active - 1 problem intervention scheduled/documen luisa in this visit Safety concerns Disciplines: Alf Safety needs related to infusion administration 11/25/2022 Active - 1 problem intervention scheduled/documen luisa in this visit Learning/Teachin g Needs - IV Therapy Disciplines: Alf Teaching and learning needs for performing home IV therapy 11/25/2022 Active - 7 problem interventions scheduled/documen luisa in this visit Monitor patient's vital signs every home health visit Disciplines: SN, PT, OT, ELECTRONIC HEALTH RECORDS SPECIALIST, COMMERCIAL ACCOUNTANT, Skilled Disciplines Monitor patient's vital signs every home health visit. 11/25/2022 Active 1 goal linked to scheduled/docume nted intervention 1 goal intervention scheduled/documen luisa in this visit Goals Goal Associated Problem Outcome Goal Met? Visit Notes Measure vital signs during every home health visit during episode of care Description: Home medical donation professional to measure vital signs during every home [...] and potential complications. Problem:Medications Completed Medications reviewed. Patient expressed good understanding. IV Infusion Description: Instruct patient/caregiver on IV infusion Entyvio. Problem:Medications Completed Lab draw Description: Treatment Plan: After initial infusion (week 0), infuse on week 2, 6 and th en every 8 weeks for 52 weeks. LABs: CBC w/diff, HFP every 8 weeks with infusions. Fax results to [phone] & [phone]. Annual LABs: Draw T-SPOT.TB or Quantiferon TB Gold with initial induction. Following pharmacist is Cameron Siegel Problem:Need to Collect Specimen Sample Completed CBC/diff, HFP obtained with peripheral IV placement per protocol and specimen to laboratory. Instruct on IV complications Description: Instruct patient/caregiver on how to manage breaks in line, signs/symptoms of complications, who to contact for complications and how to contact the nurse, and infusion service Problem:Safety concerns Completed PIV placed, maintained, and removed in Treatment Room. Instruct on IV supplies Description: Instruct patient/caregiver in how to gather supplies, how to restock IV supplies in the home, prepare supplies, administer IV medication and disconnect IV medication, inspecting solution and supplies before infusing, and waste disposal. Problem:Learning/Tea haresh Needs - IV Therapy Completed SN to manage supplies in the Treatment Room. Instruct Infection Prevention Description: Instruct patient/caregiver in strategies to prevent infection. Instruct patient/caregiver on how to recognize signs and symptoms of infection and when to notify nurse and/or physician. Problem:Learning/Tea haresh Needs - IV Therapy Completed Patient expressed appropriate understanding of preventing infection and when to call , Agency, . IV Administration Description: Skilled Nurse [...] Problem:Learning/Tea haresh Needs - IV Therapy Completed Instruct on IV flush Description: Instruct patient/caregiver in how to perform flushing of IV line according to MD orders or protocol. Problem:Learning/Tea haresh Needs - IV Therapy Completed SN to perform flushing of IV line. IV Discontinuation Description: Skilled nurse to remove [...] Completed documented in this encounter Care Teams Training Consultant Relationship Specialty Start Date End Date Emmanuel Wesley DO PCP - General Internal Medicine 12/11/21 documented as of this encounter
--- OUTSIDE RECORDS SUMMARY | 2024-11-11 19:11 | XMS_ITS | Encounter Summary ---
Author Organization [facility] Healthcare Address [address] [place] [address] Care Team Providers Care Saw Feeder Name Role Phone Emmanuel Wesley DO Primary Care Provider [phone]- [phone] Encounter Details Date Type Department Care Team (Latest Contact Info) Description 01/06/2023 9:40 AM FORENSIC STRUCTURAL ENGINEER - 01/06/2023 11:59 PM FORENSIC STRUCTURAL ENGINEER Hospital Encounter [address] [address] Discharge Disposition: Discharge to home or self [...] on file 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:34 AM FORENSIC STRUCTURAL ENGINEER Gender Identity Not on file Sexual [...] small and large intestine without complication (CMS/HCC) ([facility]) Insert 1 applicator into the rectum daily [...] small and large intestine without complication (CMS/HCC) ([facility]) Take 1 tablet (1 mg total) by mouth daily 90 tablet 3 12/14/2022 4 folic acid (FOLVITE) 1 mg tablet 1 tablet DAILY (route: oral) 12/14/2022 4 HYDROcodone-acetam inophen (NORCO) 5-325 mg per tablet Take 1 tablet by mouth every 4 (four) hours as needed 12/27/2022 3 hydrocortisone (CORTENEMA) 100 mg/60 mL enemaIndications:U [...] and then Q8 weeks (reinduction). Infused by: [facility] Home Care ([facility] order in Epic [...] Info) Description 11/09/2024 Plan of Care Documentation [facility] Health [address] [address] [address] [place] [address] documented as of this encounter Procedures Procedure Name Priority Date/Time Associated Diagnosis Comments DIFFERENTIAL AUTO Routine 01/06/2023 9:4 0 AM FORENSIC STRUCTURAL ENGINEER CBC WITH AUTO DIFFERENTIAL Routine 01/06/2023 9:40 AM FORENSIC STRUCTURAL ENGINEER HEPATIC FUNCTION PANEL Routine 01/06/2023 9:40 AM FORENSIC STRUCTURAL ENGINEER documented in this encounter Results * Differential, auto (01/06/2023 9:40 AM FORENSIC STRUCTURAL ENGINEER) Neutrophil abs 4.5 1.7 - 6.5 K/cumm [facility] Imm gran abs 0.0 0.0 - 0.1 K/cumm [facility] Lymphocyte abs 1.6 0.8 - 3.3 K/cumm [facility] Monocyte abs 0.5 0.2 - 0.8 K/cumm [facility] Eosinophil abs 0.2 0.0 - 0.5 K/cumm [facility] Basophil abs 0.1 0.0 - 0.1 K/cumm [facility] Neutrophil pct 65.0 % [facility] Comment: Interpretive Data Percent cell count reference ranges are not reported, since discordance with absolute values may lead to misinterpretation of CBC data. Current Interpretive Data was last revised on 2018. Imm gran pct 0.3 % [facility] Comment: Interpretive Data Percent cell count reference ranges are not reported, since discordance with absolute values may lead to misinterpretation of CBC data. Current Interpretive Data was last revised on 2018. Lymphocyte pct 23.7 % [facility] Comment: Interpretive Data Percent cell count reference ranges are not reported, since discordance with absolute values may lead to misinterpretation of CBC data. Current Interpretive Data was last revised on 2018. Monocyte pct 7.8 % [facility] Comment: Interpretive Data Percent cell count reference ranges are not reported, since discordance with absolute values may lead to misinterpretation of CBC data. Current Interpretive Data was last revised on 2018. Eosinophil pct 2.5 % [facility] Comment: Interpretive Data Percent cell count reference ranges are not reported, since discordance with absolute values may lead to misinterpretation of CBC data. Current Interpretive Data was last revised on 2018. Basophil pct 0.7 % [facility] Comment: Interpretive Data Percent cell count reference ranges are not reported, since discordance with absolute values may lead to misinterpretation of CBC data. Current Interpretive Data was last revised on 2018. Blood 01/06/2023 9:40 AM FORENSIC STRUCTURAL ENGINEER 01/06/2023 1:24 PM FORENSIC STRUCTURAL ENGINEER us Paulina Jones MD LAB BLOOD ORDERABLE S Final Result Performing Organization Address [facility]/State/ZIP Co de Phone Number [facility] Department [place] [address] * (ABNORMAL) CBC with auto differential (01/06/2023 9:40 AM FORENSIC STRUCTURAL ENGINEER) Pathologist [facility] WBC 6.9 3.8 - 9.9 K/cumm [facility] Hgb 12.4(L) 13.0 - 17.5 g/dL [facility] Hct 38.1(L) 38.9 - 50.3 % [facility] Plt 390 150 - 400 K/cumm [facility] MPV 9.4 9.1 - 12.3 fL [facility] RBC 4.52 4.30 - 5.80 M/cumm [facility] MCV 84.3 81.3 - 96.4 fL [facility] MCH 27.4 27.1 - 33.3 pg [facility] MCHC 32.5 32.3 - 35.7 g/dL [facility] RDW CV 13.5 11.1 - 14.9 % [facility] RDW SD 41.5 35.7 - 48.1 fL [facility] NRBC abs 0.00 0.00 - 0.01 K/cumm [facility] Blood 01/06/2023 9:40 AM FORENSIC STRUCTURAL ENGINEER 01/06/2023 1:24 PM FORENSIC STRUCTURAL ENGINEER us Paulina Jones MD LAB BLOOD ORDERABLE S Final Result [facility] [place] [address] * Hepatic function panel (01/06/2023 9:40 AM FORENSIC STRUCTURAL ENGINEER) Bilirubin, total 0.3 0.1 - 1.2 mg/dL [facility] Bilirubin, direct <0.2 0.1 - 0.3 mg/dL [facility] Protein, pl 7.4 6.5 - 8.5 g/dL [facility] Albumin 4.3 3.5 - 5.0 g/dL [facility] Alk phos 71 40 - 130 Units/L [facility] ALT 21 7 - 55 Units/L [facility] AST 20 10 - 50 Units/L [facility] Blood 01/06/2023 9:40 AM FORENSIC STRUCTURAL ENGINEER 01/06/2023 1:24 PM FORENSIC STRUCTURAL ENGINEER us Paulina Jones MD LAB BLOOD ORDERABLE S Final Result [facility] Department [place] [address] documented in this encounter Visit Diagnoses Not on filedocumented in this encounter Care Teams Saw Feeder Relationship Specialty Start Date End Date Emmanuel Wesley DO PCP - General Internal Medicine 12/11/21 documented as of this encounter
--- OUTSIDE RECORDS SUMMARY | 2024-11-11 19:11 | XMS_ITS | Encounter Summary ---
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 Gender Identity Not on file Sexual Orientation Not on file documented as of this encounter Progress Notes * Cameron Looney RP - 02/09/2023 3:42 PM CDT FOC: Gustabo Joens MD/ Sonali Looney, PharmD LABs: To be drawn at next infusion on ~03/03/23 LAB67: Vitamin B12 [id number]: Iron profile w/ IBC LAB86: Ferritin documented in this encounter Plan of Treatment Upcoming Encounters Date Type Department Care Team (Late st Contact Info) Description 11/09/2024 Plan of Care Documentation [address] [address] [address] [place] [address] documented as of this encounter Visit Diagnoses Not on filedocumented in this encounter Care Teams File Clerk Relationship Specialty Start Date End Date Emmanuel Wesley DO PCP - General Internal Medicine 12/11/21 documented as of this encounter
--- OUTSIDE RECORDS SUMMARY | 2024-11-11 19:11 | XMS_ITS | Encounter Summary ---
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
--- OUTSIDE RECORDS SUMMARY | 2024-11-11 19:11 | XMS_ITS | Encounter Summary ---
Author Organization [facility] Healthcare Address [address] [place] [address] Care Team Providers Care Telesales Team Leader Name Role Phone Emmanuel Wesley DO Primary Care Provider +1- [phone] Encounter Details Date Type Department Care Team (Latest Contact Info) Description 11/25/2022 12:45 PM SENIOR APPLICATIONS DEVELOPER - 11/25/2022 11:59 PM SENIOR APPLICATIONS DEVELOPER Hospital Encounter [address] [address] Discharge Disposition: Discharge to home or self [...] on file 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:34 AM SENIOR APPLICATIONS DEVELOPER Gender Identity Not on file Sexual Orientation [...] small and large intestine without complication (CMS/HCC) ([facility]) Insert 1 applicator into the rectum [...] small and large intestine without complication (CMS/HCC) ([facility]) Take 1 tablet (1 mg total) [...] then Q8 weeks (reinduction). Infused by: [facility] Home Care ([facility] order in Epic [...] Info) Description 11/09/2024 Plan of Care Documentation [address] [address] [address] [place] [id number] documented as of this encounter Procedures Procedure Name Priority Date/Time Associated Diagnosis Comments T-SPOT.TB Routine 11/25/2022 12:45 PM SENIOR APPLICATIONS DEVELOPER DIFFERENTIAL AUTO Routine 11/25/2022 12: 45 PM SENIOR APPLICATIONS DEVELOPER CBC WITH AUTO DIFFERENTIAL Routine 11/25/2022 12:45 PM SENIOR APPLICATIONS DEVELOPER HEPATIC FUNCTION PANEL Routine 11/25/2022 12:45 PM SENIOR APPLICATIONS DEVELOPER documented in this encounter Results * Differential, auto (11/25/2022 12:45 PM SENIOR APPLICATIONS DEVELOPER) Neutrophil abs 4.4 1.7 - 6.5 K/cumm [facility] Imm gran abs 0.0 0.0 - 0.1 K/cumm [facility] Lymphocyte abs 1.7 0.8 - 3.3 K/cumm [facility] Monocyte abs 0.6 0.2 - 0.8 K/cumm [facility] Eosinophil abs 0.1 0.0 - 0.5 K/cumm [facility] Basophil abs 0.0 0.0 - 0.1 K/cumm [facility] Neutrophil pct 65.2 % [facility] Comment: Interpretive Data Percent cell count reference ranges are not reported, since discordance with absolute values may lead to misinterpretation of CBC data. Current Interpretive Data was last revised on 2018. Imm gran pct 0.3 % [facility] Comment: Interpretive Data Percent cell count reference ranges are not reported, since discordance with absolute values may lead to misinterpretation of CBC data. Current Interpretive Data was last revised on 2018. Lymphocyte pct 25.0 % [facility] Comment: Interpretive Data Percent cell count reference ranges are not reported, since discordance with absolute values may lead to misinterpretation of CBC data. Current Interpretive Data was last revised on 2018. Monocyte pct 8.2 % [facility] Comment: Interpretive Data Percent cell count reference ranges are not reported, since discordance with absolute values may lead to misinterpretation of CBC data. Current Interpretive Data was last revised on 2018. Eosinophil pct 0.9 % [facility] Comment: Interpretive Data Percent cell count reference ranges are not reported, since discordance with absolute values may lead to misinterpretation of CBC data. Current Interpretive Data was last revised on 2018. Basophil pct 0.4 % [facility] Comment: Interpretive Data Percent cell count reference ranges are not reported, since discordance with absolute values may lead to misinterpretation of CBC data. Current Interpretive Data was last revised on 2018. Blood 11/25/2022 12:4 5 PM SENIOR APPLICATIONS DEVELOPER 11/25/2022 2:43 PM SENIOR APPLICATIONS DEVELOPER us Notinfile Unknown LAB BLOOD ORDERABLES Final Res ult [facility] Department [place] [address] * T-SPOT.TB (11/25/2022 12:45 PM SENIOR APPLICATIONS DEVELOPER) [facility] T-SPOT.TB Negative SeeBelow [facility] Comment: Normal Value: Negative A negative test result does not exclude the possibility of exposure to or infection with Mycobacterium tuberculosis (M. tuberculosis). ??Patients with recent exposure to TB infected individuals exhibiting a negative T-SPOT.TB result should be considered for retesting within 6 weeks or if other relevant clinical symptoms indicate. ??Results from T-SPOT.TB testing must be used in conjunction with each individual's epidemiological history, current medical status, and results of other diagnostic evaluations. ??The T-SPOT.TB test is qualitative and results are reported as positive, borderline or negative, given that the test controls perform as expected. In line with the Centers for Disease Control and Prevention's 2010 recommendation to report quantitative measurements alongside the qualitative result, the laboratory provides spot counts for informational purposes only. ??The T-SPOT.TB test should not be interpreted as a quantitative test. T-SPOT.TB Panel A Spot Count 0 [facility] T-SPOT.TB Panel B Spot Count 0 [facility] T-SPOT.TB Negative Control Passed [facility] T-SPOT.TB Positive Control Passed [facility] Comment: Test Performed at: [facility] [address] [place] [address] ??[phone] ? LIANA HURTADO MD,PHD Blood 11/25/2022 12:4 5 PM SENIOR APPLICATIONS DEVELOPER 11/25/2022 2:43 PM SENIOR APPLICATIONS DEVELOPER us Notinfile Unknown LAB MICROBIOLOGY - GENERAL ORD ERABLES Final Result [facility] Department [place] [address] * (ABNORMAL) CBC with auto differential (11/25/2022 12:45 PM SENIOR APPLICATIONS DEVELOPER) [facility] WBC 6.7 3.8 - 9.9 K/cumm [facility] Hgb 13.0 13.0 - 17.5 g/dL [facility] Hct 41.0 38.9 - 50.3 % [facility] Plt 367 150 - 400 K/cumm [facility] MPV 9.9 9.1 - 12.3 fL [facility] RBC 4.66 4.30 - 5.80 M/cumm [facility] MCV 88.0 81.3 - 96.4 fL [facility] MCH 27.9 27.1 - 33.3 pg [facility] MCHC 31.7(L) 32.3 - 35.7 g/dL [facility] RDW CV 13.3 11.1 - 14.9 % [facility] RDW SD 41.4 35.7 - 48.1 fL [facility] NRBC abs 0.00 0.00 - 0.01 K/cumm [facility] Blood 11/25/2022 12:4 5 PM SENIOR APPLICATIONS DEVELOPER 11/25/2022 2:43 PM SENIOR APPLICATIONS DEVELOPER us Notinfile Unknown LAB BLOOD ORDERABLES Final Res ult Performing Organization Address [facility] de Phone Number [facility] Department [place] [address] * Hepatic function panel (11/25/2022 12:45 PM SENIOR APPLICATIONS DEVELOPER) Bilirubin, total 0.9 0.1 - 1.2 mg/dL [facility] Bilirubin, direct <0.2 0.1 - 0.3 mg/dL [facility] Protein, pl 8.1 6.5 - 8.5 g/dL [facility] Albumin 4.8 3.5 - 5.0 g/dL [facility] Alk phos 59 40 - 130 Units/L [facility] ALT 24 7 - 55 Units/L [facility] AST 19 10 - 50 Units/L [facility] Blood 11/25/2022 12:4 5 PM SENIOR APPLICATIONS DEVELOPER 11/25/2022 2:43 PM SENIOR APPLICATIONS DEVELOPER us Notinfile Unknown LAB BLOOD ORDERABLES Final Res ult Performing Organization Address [facility] Co de Phone Number [facility] [employer] Department [place] [address] documented in this encounter Visit Diagnoses Not on filedocumented in this encounter Care Teams Telesales Team Leader Relationship Specialty Start Date End Date Emmanuel Wesley DO PCP - General Internal Medicine 12/11/21 documented as of this encounter
--- OUTSIDE RECORDS SUMMARY | 2024-11-11 19:11 | XMS_ITS | Encounter Summary ---
Author Organization [facility] Address [address] [place] [address] Phone Care Team Providers Care Um Specialist Name Role Phone Emmanuel Wesley DO Primary Care Provider [phone]- [phone] Encounter Details Date Type Department Care Team (Late st Contact Info) Description 12/14/2022 Orders Only [facility] Gastroenterology [address] 12[address] [place] [address] [place] [address] Veda Rivas, sharepoint application architect Crohn's disease of both small and large intestine without complication (CMS/HCC) ([facility]) Social History Tobacco Use Types Packs/Day Years [...] on file 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:34 AM 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 Gender Identity Not on file Sexual Orientation Not on file documented as of this encounter Ordered Prescriptions Prescription Sig Dispense Quantity Refills Last Filled Start Date End Date folic acid (FOLVITE) 1 mg tabletIndications: Crohn's disease of both small and large intestine without complication (CMS/HCC) (HCC) Take 1 tablet (1 mg total) by mouth daily 90 tablet 3 12/14/2022 12/27/2023 documented in this encounter Plan of Treatment Upcoming Encounters Date Type Department Care Team (Late st Contact Info) Description 11/09/2024 Plan of Care Documentation [address] [address] [address] [place] [address] documented as of this encounter Visit Diagnoses Diagnosis Crohn's disease of both small and large intestine without complication (CMS/HCC) (HCC) documented in this encounter Discontinued Medications Medication Sig Discontinue Reason Start Date End Da te folic acid (FOLVITE) 1 mg tabletIndications:Crohn's disease of both small and large intestine without complication (CMS/HCC) (HCC) Take 1 tablet (1 mg total) by mouth daily Reorder 02/27/2021 12/14/2022 documented as of this encounter Care Teams Um Specialist Relationship Specialty Start Date End Date Emmanuel Wesley DO PCP - General Internal Medicine 12/11/21 documented as of this encounter
--- OUTSIDE RECORDS SUMMARY | 2024-11-11 19:11 | XMS_ITS | Encounter Summary ---
Author Organization [facility] Home Care Servic es Address [address] [place] [address] Phone Care Team Providers Care Uniform Maker Name Role Phone Emmanuel Wesley DO Primary Care Provider [phone]- [phone] Reason for Visit * Reason Comments Crohn's Disease * Medication Authorization (Routine) - Closed Specialty Diagnoses / Procedures Referred By Med bazan Referred To Contact Paulina Jones MD [address] [place] [address] Phone: tel: fax: Referral ID Status Reason Start Date Expiration Date Visits Re quested Visits Authorized [id number] Closed 03/03/2023 04/01/2024 1 1 Encounter Details Date Type Department Care Team (Latest Contact Info) Description 03/03/2023 12:00 PM CDT Home Care Visit [facility] [address] [address] [address] [place] [address] Franklin Cruz RN SN INFUSION TREATMENT ROOM [...] on file 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 Gender Identity Not on file Sexual Orientation Not on file documented as of this encounter Last Filed Vital Signs Vital Sign Reading Time Taken Comments Blood Pressure 128/76 03/03/2023 2:20 PM CDT Pulse 71 03/03/2023 2:20 PM CDT Temperature 36.8 ??C (98.2 ??F) 03/03/2023 2:20 PM CD T Respiratory Rate 16 03/03/2023 2:20 PM CDT Oxygen Saturation 98% 03/03/2023 2:20 PM CDT Inhaled Oxygen Concentration - - Weight - - Height - - Body Mass Index - - documented in this encounter Miscellaneous Notes * Home Health Visit Narrative - Franklin Cruz RN - 03/03/2023 12:00 AM CDT Covid screening performed prior [...] Info) Description 11/09/2024 Plan of Care Documentation [facility] - [address] [address] [address] [place] [address] documented as of this encounter Visit Diagnoses Not on filedocumented in this encounter Administered Medications Active Administered Medications - up to 3 most recent administrations Medication Order MAR Action Action Date Dose Rate Site sodium chloride 0.9 %, flush, (SALINE FLUSH INJ) 10 mL, intravenous, As needed, line patency, Starting on Ashlyn 03/03/23 at 1412, Indications: line patencyIndications:line patency Given 03/03/2023 1:47 PM CDT 10 mL Right Antecubital Inactive Administered Medications - up to 3 most recent administrations Medication Order MAR Action Action Date Dose Rate Site vedolizumab (ENTYVIO) 300 mg recon soln 300 mg, intravenous, See admin instructions, Starting on Ashlyn 03/03/23 at 1412, To be infused at weeks 0, 2, 6, and then Q8 weeks (reinduction). Infused by: [facility] Home Care ([facility] order in Epic under 'Procedures' tab). Given 03/03/2023 1:47 PM CDT 300 mg Right Antecubital documented in this encounter Home Health Visit - Care Plan Visit Details Visit Type [facility] -[facility] Problems Problem Description Start Date Status Goals Interventions Specialty Medication - General Disciplines: Shelter SN to provide safe assessment of patient prior to use of general specialty medication 11/25/2022 Active - 3 problem interventions scheduled/documen luisa in this visit Medications Disciplines: Shelter Management of IV Medications 11/25/2022 Active - 2 problem interventions scheduled/documen luisa in this visit Need to Collect Specimen Sample Disciplines: Shelter Need to collect specimen sample 11/25/2022 Active - 2 problem interventions scheduled/documen luisa in this visit Safety concerns Disciplines: Shelter Safety needs related to infusion administration 11/25/2022 Active - 1 problem intervention scheduled/documen luisa in this visit Learning/Teachin g Needs - IV Therapy Disciplines: Shelter Teaching and learning needs for performing home IV therapy 11/25/2022 Active - 7 problem interventions scheduled/documen luisa in this visit Monitor patient's vital signs every home health visit Disciplines: SN, PT, OT, ROCK WOOL APPLICATOR, CUPOLA HOIST OPERATOR, Skilled Disciplines Monitor patient's vital signs every home health visit. 11/25/2022 Active 1 goal linked to scheduled/docume nted intervention 2 goal interventions scheduled/documen luisa in this visit Goals Goal Associated Problem Outcome Goal Met? Visit Notes Measure vital signs during every home health visit during episode of care Description: Home garageman to measure vital signs during every home [...] the infusion. Skilled Nurse assessed patient following ing infusion. Patient was discharged home. Pre Medication [...] Problem:Medications Completed Instructed patient on IV Entyvio infusion . Patient verbalized understanding. Lab draw Description: Copied from pharmacy order: Gustabo Jones MD/ Sonali Looney PharmD/ Sonali Cruz RN LABs: To be drawn at next infusion on ~03/03/23 LAB67: Vitamin B12 [id number]: Iron profile w/ IBC LAB86: Problem:Need to Collect Specimen Sample Completed Labs collected as ordered. Delivered to [facility] Lab draw Description: Treatment Plan: After initial infusion (week 0), infuse on week 2, 6 and th en every 8 weeks for 52 weeks. LABs: CBC w/diff, HFP every 8 weeks with infusions. Fax results to [phone] & [phone]. Annual LABs: Draw T-SPOT.TB or Quantiferon TB Gold with initial induction. Following pharmacist is Cameron T. Problem:Need to Collect Specimen Sample Completed Labs collected as ordered. Delivered to [facility] Instruct on IV complications Description: Instruct patient/caregiver [...] Completed Patient instructed on frequent/proper hand-washing techniques, [place] precautions, avoid crowds and persons with known infections, staying current with immunizations, s/s of infection, use of antibiotics and encourage adequate diet and fluid intake. Patient verbalizes understanding of strategies to prevent infection. IV Administration Description: Skilled Nurse to administer medications and flushes as prescribed/needed. Reason for Therapy: IV Entyvio. Problem:Learning/Tea haresh Needs - IV Therapy Completed Skilled Nurse administered IV Entyvios as prescribed. Reason for Therapy: IV Entyvio. IV Access Care/Maintenance Description: Skilled Nurse to [...] health visit during episode of care Completed Monitor blood pressure, pulse, oxygen saturation, respirations, [...] 101.5) documented in this encounter Care Teams Uniform Maker Relationship Specialty Start Date End Date Emmanuel Wesley DO PCP - General Internal Medicine 12/11/21 documented as of this encounter
--- OUTSIDE RECORDS SUMMARY | 2024-11-11 19:11 | XMS_ITS | Encounter Summary ---
Author Organization 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 Gender Identity Not on file Sexual Orientation Not on file documented as of this encounter Last Filed Vital Signs Vital Sign Reading Time Taken Comments Blood Pressure 171/77 06/01/2022 10:32 AM CDT Pulse 60 06/01/2022 10:32 AM CDT Temperature 36.6 ??C (97.8 ??F) 06/01/2022 10:32 AM C DT Respiratory Rate - - Oxygen Saturation - - Inhaled Oxygen Concentration - - Weight 108 kg (238 lb 3.2 oz) 06/01/2022 10:32 A M CDT Height 190.5 cm (6' 3 ) 06/01/2022 10:32 AM CDT Body Mass Index 29.77 06/01/2022 10:32 AM CDT documented in this encounter Patient Instructions * Patient Instructions* Zora Shearer - 06/01/2022 10:30 AM CDT Return office visit is needed in 4 months Our office will notify you once your Skyrizi induction infusions have been approved through [facility] Corifoam prescription will be sent to your [facility] pharmacy documented in this encounter Ordered Prescriptions Prescription Sig Dispense Quantity Refills Last Filled Start Date End Date hydrocortisone (PROCTOCORT) 10 % (80 mg) rectal foamIndications:Ul cerative Proctitis Insert 1 applicator into the rectum daily Use as directed 30 each 06/01/2022 2 documented in this encounter Progress Notes * Paulina Jones MD - 06/01/2022 12:00 AM CDT PATIENT NAME: DANTE PERALTA : 1980 DIMITRIS: 06/01/2022 Reason for Visit: Follow-up ileocolonic Crohn's disease (predominantly ileal as well as significant severe proctitis)with failure to respond to quite a number of medicines; the patient is currently waiting for approval of Skyrizi. Current Medications: 1. Budesonide foam daily. 2. Ozanimod 0.9 mg capsule daily. 3. Vitamin D 50,000 units monthly. 4. Prednisone 40 mg daily (just finished the taper). 5. Folic acid daily. 6. Xanax p.r.n. Problem List: 1. Ileocolonic and perianal Crohn's disease diagnosed in 2006 with a presentation of hematochezia and a perianal fistula with abscess. The patient was previously treated with Humira, Cimzia, Remicade, methotrexate, Entyvio in combination with methotrexate, Stelara, Xeljanz, Otezla x2 months and a retrial of Entyvio monthly. Most recently, he was tried on Zeposia with no response. In 2019, the patient had a very tight IC valve and was having intermittent obstructions and was referred to a surgeon but the decision was made to hold off until we found a medicine that would control his disease activity. The patient ultimately has been on quite a list of almost all FDA-approved medicines (not Tysabri because of elevated JERALD virus) but has been on both FDA approved as well as off-label drug use including Xeljanz, Zeposia. The patient most recently was seen at the [facility] by Dr. Hamilton for a second opinion. It was recommended that he try Canasa suppositories as well as potentially Skyrizi, although he failed to have any response to Stelara. We are currently waiting for Skyrizi approval. 2. History of significant gout flares while on thiopurines leading to discontinuation. This could not be prevented with allopurinol and decreased dosing and unfortunately required steroid tapers, indomethacin, colchicine, to be able to control the significant gout flares. 3. Positive Jw Clement virus of 2.15. 4. Difficulty tolerating methotrexate secondary to malaise as well as depressive symptoms. History of Present Illness: Dante is a gabby 41-year-old male with a past medical history of refractory ileocolonic Crohn's disease most recently noted on his colonoscopy to have significant terminal ileal as well as rectal disease, who presents today for follow-up. The patient has failed to respond to all FDA-approved medicines and has failed off-label use of Xeljanz, Zeposia, as well as most recently was submitted to undergo treatment with Skyrizi. The patient presents today is awaiting approval for the IV portion ofSkyrizi. He reports that he does have a tolerable existence right now of being maintained on Uceris foam, but would like to increase it to twice a day dosing. He reports that he has been thinking slightly more about the colostomy option we have spoken about in the past. I have told him that a colostomy, just in regards to his quality of life, may give him his quality of life back but right now he feels like he cannot go out without the need to use the restroom. In addition, we could consider a temporarycolostomy while waiting for some other mechanism of action drug to be approved for treatment of hisrectum. Both the patient and his are both at this visit, and we talked extensively regarding that longer-term surgical option until a different class of medicine is FDA approved. Physical Examination: Vital Signs: His blood pressure is 171/77, pulse of 60, weight of 238 pounds. General: He is a well-appearing male, in no apparent distress. Assessment: This patient is a gabby 41-year-old male with a past medical history of ileocolonic Crohn's disease, probably now with ileal as well as very distal colonic disease, who presents today for follow-up. At this point, the patient should continue on his current dosing of ProctoFoam and Cortifoam, and we are going to try to call it in to another pharmacy. He will be using this twice a day. In regards to the Entyvio, I told him to just stop it at this point as well as the Zeposia as neither was working for him. On the other hand, we are hoping to get Sathyaizi approved, but the patient isgoing to seriously consider the option of a colostomy and will contact the [employer] to see if he might be able to talk to somebody regarding having a colostomy and what their quality of life is. The patient otherwise was given ample opportunity to ask any questions and his questions were answered. We will plan on seeing him back 3 months after Beulah has been initiated. My total encounter time on 06/01/2022 was _30minutes which was spent in the activities documented above. This includes time spent prior to the visit and after the visit in direct care of the patient.This time does not include time spent in any separately reportable services. ELECTRONICALLY SIGNED - 06/01/2022 04:01 PM Paulina Jones MD, MPH court reporter Division of Gastroenterology AG/sv documented in this encounter Plan of Treatment Upcoming Encounters Date Type Department Care Team (Late st Contact Info) Description 11/09/2024 Plan of Care Documentation [address] [address] [address] [place] [id number] documented as of this encounter Visit Diagnoses Diagnosis Crohn's disease of both small and large intestine without complication (CMS/HCC) (HCC) documented in this encounter Discontinued Medications Medication Sig Discontinue Reason Start Date End Da te hydrocortisone (PROCTOCORT) 10 % (80 mg) rectal foamIndications:Ulcera tive Proctitis Insert 1 applicator into the rectum daily Use as directed Reorder 05/20/2022 06/01/2022 documented as of this encounter Care Teams Drawing In Machine Tender Relationship Specialty Start Date End Date Emmanuel Wesley DO PCP - General Internal Medicine 12/11/21 documented as of this encounter
--- OUTSIDE RECORDS SUMMARY | 2024-11-11 19:11 | XMS_ITS | Encounter Summary ---
Author Organization [facility] Address [address] [place] [address] Phone Care Team Providers Care Electronic Console Display Operator Name Role Phone Emmanuel Wesley DO Primary Care Provider [phone]- [phone] Reason for Visit * Reason Onset Date Comments Submitting for Beulah 05/18/2022 Encounter Details Date Type Department Care Team (Late st Contact Info) Description 05/18/[address] 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 Maintenance dosing thereafter to be administered every 8 weeks. 2.4 mL 2 07/23/2022 2 risankizumab-rzaa (Skyrizi) 150 mg/mL pen injectorIndicatio ns:Crohn's disease of small and large intestines with complication (HCC) Inject 150 mg under the skin every 8 (eight) weeks Administer your first maintenance dose of Skyrizi 4 weeks after your last/third IV induction dose. Safety labs required every 3 months for med refills. 1 mL 1 05/21/2022 2 documented in this encounter Progress Notes * Eugenio Dalton LPN - 05/18/2022 7:26 AM CDT Images from the original note were not included. 05/18/2022: Dr. Jones would like to discontinue pt's Entyvio therapy and submit for Skyrizi. At this time, Skyrizi is not yet being administered at our [facility] centers (this is currently being discussed). Discussed this with Dasha saul at [facility] who informed me that they can provide theSkyrizi, Dasha requested that I fax over pt's ins card and demographics so that their team can complete a benefits investigation to see whether he would even be covered for in-home infusions for his first three induction doses. Facesheet and ins card faxed to [facility] this morning at . Asked [facility]'s team to update me ALEXEY once this benefits investigation has been completed so that we can determine whether referral needs to be submitted to [facility] or if we will have to wait until Skyrizi is initiated at our [facility] centers. Reminder set for follow up. Will d/c Entyvio once Skyrizi is initiated. * Eugenio Dalton LPN - 05/18/2022 7:26 AM CDT Images from the original note were not included. 05/19/2022: Update received from Roby with [facility] who informed me that they would be able to provide services to this patient after completion of benefits investigation. Their team is now requesting Skyrizi orders and clinicals in order to submit for Skyrizi auth. [facility] therapy plan entered for Skyrizi induction doses (at weeks 0, 4, and 8) to be administered through [facility]. [facility] order and clinicals faxed to [facility] at . [facility]'s team will work on obtaining approval from [employer] for induction doses. Will touch base with Roby to see whether their team will be assisting with Skyrizi Complete enrollment or whether they would like our office to take care of this. Reminder set for follow up. PA for Skyrizi maintenance dosing (Q8 weeks) initiated via CMM this afternoon. CMM Abdullahi: [email or web address]. Submitted to World [employer]. Pending determination at this time. * Eugenio Dalton LPN - 05/18/2022 7:26 AM CDT 05/20/2022: Received update from Dasha Farley at [facility] that they would need Hep B labs for Ranjit. Labs ordered (discussed with patient). He will have these drawn at his local [facility]. Once completed and results have been received, will fax these to [facility]. Their team will be working on submitting for Skyrizi approval. They have asked us to assist patient in providing information for Skyrizi Complete enrollment. (Sent link to patient via [employer] portal ms this evening on how he can enroll for this program). Asked pt to provide enrollment information to our office once completed so that we can pass this on to [facility]. Determination received on Skyrizi maintenance dosing via CMM. Approved effective 05/20/2022 through 05/20/2023. (Have not received an approval letter). Reached out to patient to see what specialty pharmacy his insurance requires him to go through for specialty drugs. Once I hear back from patient regarding this, will send Skyrizi prescription in to that pharmacy for pt's maintenance dosing. Pt is aware of maintenance dosing approval. * Eugenio Dalton LPN - 05/18/2022 7:26 AM CDT 05/21/2022: Pt was provided with link for Skyrizi Complete enrollment which he will work on completing. Will also go by his local [facility] to have his Hep B labs drawn which [facility] is needing prior to initiating therapy (once we have an approval for his IV induction doses). Pt did inform me thathis specialty pharmacy is [facility]. Skyrizi prescription for maintenance dosing sent in to [facility] this morning. First maintenance dose will be due 4 weeks after pt has received his final (third) IV induction dose of Skyrizi. * Eugenio Dalton LPN - 05/18/2022 7:26 AM CDT Images from the original note were not included. 05/27/2022: Approval letter for maintenance dosing of Skyrizi (below). Also forwarded to marco browne uploaded into pt's chart. * Eugenio Dalton LPN - 05/18/2022 7:26 AM CDT 05/27/2022: Pt had his Hep B labs drawn at his local [facility] (results are finalized and in Epic). Results faxed to [facility] for pt's Skyrizi referral. Faxed this afternoon to . * Eugenio Dalton LPN - 05/18/2022 7:26 AM CDT 06/09/2022: Update received from [facility], on 06/07/2022 one of their team members reached out to patient and left VM to verify demographics and review cost. Drug (Skyrizi) has been approved. I did touch base with patient earlier this week to follow up on this, pt's spouse informed me that Naseem had not received any calls from [facility]. Reached out to Olga with [facility]'s team earlier this week, however, have not heard back (was trying to obtain best contact number for patient to reach them to discuss next steps). Will touch base with Roby and see if he can provide this phone number andwill then pass on to the patient. * Eugenio Dalton LPN - 05/18/2022 7:26 AM CDT 06/10/2022: Update received from [facility]. Pt has been approved for IV induction dosing of Skyriziand is covered at 100% due to having met his OOP. [facility] will be administering all three IV induction doses. First dose is scheduled to be administered at their [facility] infusion suite on 06/16/2022. Dr. Jones notified. * Eugenio Dalton LPN - 05/18/2022 7:26 AM CDT 07/23/2022: Previously obtained approval for Skyrizi pen injector, however, were informed that OBI device (on-body injector) was the appropriate Skyrizi dosing for Crohn's patients. New/updated Rx forSkyrizi OBI sent [facility] to [facility] this morning. Asked that they disregard prior Skyrizi Rx. PA initiated for Skyrizi OBI via CMM. CMM Abdullahi: [id number]. Question portion of PA completed. Submitted to plan (World Reviewer). Pending determination. documented in this encounter Miscellaneous Notes * Addendum Note - Eugenio Dalton LPN - 05/18/2022 7:26 AM CDTAddended by: EUGENIO DALTON on: 05/19/2022 12:37 PM Modules accepted: Orders * Addendum Note - Eugenio Dalton LPN - 05/18/2022 7:26 AM CDTAddended by: EUGENIO DALTON on: 05/21/2022 07:14 AM Modules accepted: Orders * Addendum Note - Eugenio Dalton LPN - 05/18/2022 7:26 AM CDTAddended by: EUGENIO DALTON on: 07/23/2022 08:00 AM Modules accepted: Orders documented in this encounter Plan of Treatment Upcoming Encounters Date Type Department Care Team (Late st Contact Info) Description 11/09/2024 Plan of Care Documentation [address] [address] [address] [place] [address] documented as of this encounter Visit Diagnoses Diagnosis Crohn's disease of small and large intestines with complication (HCC)- Primary documented in this encounter Discontinued Medications Medication Sig Discontinue Reason Start Date End Da te risankizumab-rzaa (Skyrizi) 150 mg/mL pen injectorIndications:Insulator Cutter And Former hn's disease of small and large intestines with complication (HCC) Inject 150 mg under the skin every 8 (eight) weeks Administer your first maintenance dose of Skyrizi 4 weeks after your last/third IV induction dose. Safety labs required every 3 months for med refills. 05/21/2022 07/23/2022 documented as of this encounter Orders Procedures Count Last Ordered Date First Orde red Date ONCBCN OUTPATIENT FACILITY ORDERS 1 022 documented in this encounter Care Teams Electronic Console Display Operator Relationship Specialty Start Date End Date Emmanuel Wesley DO PCP - General Internal Medicine 12/11/21 documented as of this encounter
--- OUTSIDE RECORDS SUMMARY | 2024-11-11 19:11 | XMS_ITS | Encounter Summary ---
Author Organization [facility] Address [address] [place] [address] Phone Care Team Providers Care Radiologic Technology Teacher Name Role Phone Emmanuel Wesley DO Primary Care Provider [phone]- [phone] Encounter Details Date Type Department Care Team (Late st Contact Info) Description 02/08/2023 9:45 AM CDT Office Visit [facility] Gastroenterology [address] [place] [address] Medical Office Building [address] [place] [address] Paulina oJnes MD [address] [place] [address] Crohn's disease of both small and large intestine without complication (CMS/HCC) (HCC) (Primary Dx); Low iron; High risk medications (not anticoagulants) long-term use [...] on file 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 Gender Identity Not on file Sexual Orientation Not on file documented as of this encounter Last Filed Vital Signs Vital Sign Reading Time Taken Comments Blood Pressure 137/88 02/08/2023 10:12 AM CDT Pulse 60 02/08/2023 10:12 AM CDT Temperature - - Respiratory Rate - - Oxygen Saturation 97% 02/08/2023 10: 12 AM CDT Inhaled Oxygen Concentration - - Weight 107.4 kg (236 lb 12.8 oz) 2022 10:12 AM CDT Height 190.5 cm (6' 3 ) 02/08/2023 10:1 2 AM CDT Body Mass Index 29.6 02/08/2023 10:12 AM CDT documented in this encounter Patient Instructions * Patient Instructions* Steffanie Hunter RN - 02/08/2023 9:45 AM CDT Return office visit is needed in 4 months Please try using Benefiber Prescriptions called into the pharmacy Penelope with Dr. Jones's office will contact you to schedule a colonoscopy this summer documented in this encounter Ordered Prescriptions Prescription Sig Dispense Quantity Refills Last Filled Start Date End Date hyoscyamine (LEVSIN) 0.125 mg SL tabletIndications: Urinary Incontinence Take 1 tablet (0.125 mg total) by mouth every 6 (six) hours as needed for cramping or diarrhea Dissolve tab under the tongue 100 tablet 5 02/08/2023 4 sulfaSALAzine (AZULFIDINE) 500 mg tablet Take 2 tablets (1,000 mg total) by mouth 4 (four) times a day as needed (joint pain) 240 tablet 5 02/08/2023 4 celecoxib (CeleBREX) 100 mg capsule Take 1 capsule (100 mg total) by mouth daily 30 capsule 1 02/08/2023 4 loperamide (IMODIUM A-D) 2 mg tablet Take 0.5 tablets (1 mg total) by mouth 2 (two) times a day 30 tablet 5 02/08/2023 3 documented in this encounter Progress Notes * Paulina Jones MD - 02/08/2023 12:00 AM CDT PATIENT NAME: DANTE PERALTA : 1980 DIMITRIS: 02/08/2023 Reason for Visit: Follow-up on ileocolonic stricturing Crohn's disease, with steroid dependent/medically refractory distal disease; the patient, on 12/24/2022, underwent an ileocolonic resection as well as a sigmoid diverting colostomy, and postoperatively, he has been able to resume his quality of life that was very limited prior to surgery. Current Medications: 1. Folic acid 1 mg a day. 2. Colchicine 0.6 mg daily 3. Jeronimo enemas p.r.n. (not taking). 4. Entyvio 300 mg every 8 weeks. 5. Methotrexate 25 mg weekly. 6. Allopurinol 100 mg daily. Problem List: 1. Ileocolonic and perianal Crohn's disease, diagnosed in 2006, with a presentation of hematocheziaand perianal fistula with abscess. The patient was previously treated with Humira, Cimzia, Remicade, methotrexate, and Entyvio in combination with methotrexate, Stelara, Xeljanz, Otezla x2 months, and a retrial of Entyvio monthly. He was later retried on Zeposia, with no response. He discontinued and was started on Skyrizi in early June 2022, with a limited response. The patient had a very tight IC valve and was having intermittent obstructions and was referred to a surgeon, but the decision was made to hold off on surgery until his disease was better controlled. The region has been transversed with difficulty and dilation, and it has demonstrated active distal terminal ileal disease. Thepatient unfortunately had a JERALD virus that was elevated, and he was not a candidate for Tysabri. Thepatient also did not respond to Skyrizi. The patient received one maintenance dose when we saw him in September, and subsequently, he underwent an ileocolonic resection as well as a diverting sigmoid colostomy in December 2022. 2. History of significant gout flares while on thiopurines, leading to discontinuation. This was thought to be prevented by the allopurinol and decreasing the dosing, but unfortunately, he still required significant amount of steroids and indomethacin with colchicine to control his gout flares. 3. Positive JERALD virus of 2.15. 4. Difficulty tolerating methotrexate but is tolerating it at this moment. History of Present Illness: Dante is a gabby 42-year-old male with a past medical history of medically- refractory ileocolonic and distal rectal Crohn's disease, who presents today for follow-up. Since I last saw the patient,he underwent a ileocolonic resection as well as a sigmoid colostomy, and now presents for follow-up. Although the patient has clinically had difficulties in managing not only his stoma but also diet, overall I think he is doing significantly better. 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 The patient, prior to going to surgery, was really much more homebound secondary to always needing to know where there was a bathroom. The patient reports that he did have an episode of what he thinks to be an obstruction secondary tohaving a high-fiber food (raisin bran) but has had no other real difficulties in regards to obstruction. The patient at one time did try Metamucil but was concerned because he felt that it just caused more gas. The patient also complains of intermittent joint pains, and although he does have some response to Tylenol, he says he responds best to ibuprofen. The patient also complains of a loud stoma and says that he hears a lot of gargling during the day. The patient otherwise has had his weight stable since surgery. Physical Examination: Vital Signs: Today, his blood pressure is 137/88, pulse of 60, weight of 107 kg. General: He is a well-appearing white male, in no apparent distress. HEENT: Oropharynx is clear, with no submandibular or supraclavicular lymphadenopathy. Cardiovascular: He has a normal S1, S2. Regular rate and rhythm. Pulmonary: Clear to auscultation. Abdomen: Soft, nontender, nondistended, with good bowel sounds. The patient has a well-appearing stoma, with a belly band on top. Assessment: Dante is a gabby 42-year-old male with a past medical history of ileocolonic and perianal Crohn's disease, with a known stricture at his ileocecal valve, status post resection with a diverting sigmoid colostomy, who presents today for follow-up. At this point, the patient is doing very well, and although he is only 6 weeks out from surgery, his quality of life is significantly improved. I have explained to him that it will take some time forhim to learn how to work his stoma, change his bag, and find a bag that works for him. There are some small details that the patient would like to have fixed, and I told him that I would like to helphim on some of them. In regards to his output, the patient has this notion that he wants no stool at all in his bag when he leaves in the morning. I have explained to him that he will always pass some stool. We can try to make his stool slightly more solid using half an Imodium twice a day, but he will need to use Benefiber as well, to add some bulk. I have explained to him that because he has had an ileocolonic resection, he needs some medicine to take his stool slightly more solid. That does not mean that he is going to take a large amount of fiber, because I think fiber ultimately will cause him to have some symptomatic obstruction. In addition, I told the patient that the Benefiber should be a small enough amount that it should add bulk without necessarily making his stool more solid. In regards to his joint pains, I have asked him to try Celebrex as well as sulfasalazine. I have explained to him that there are 2 different mechanisms, and to try sulfasalazine a few times a day as well as Celebrex daily to see if that helps him with joint pain. In regards to the sounds that his stoma is making, I have encouraged him to have coconut oil with his meals as well as eat small more frequent meals. That should help minimize some of the sounds. In addition, the patient has been having carbonated beverages as well as beverages with artificial sweeteners. I told him to stop taking the G2 or Zero, as I suspect that might be causing him to have more output and cause some of the grumbling in his stomach. The patient can also try the Levsin, to seeif that might help him. We will plan on doing a colonoscopy sometime this summer, and we will plan on checking his B12 as well as iron with his next infusion. The patient otherwise was given ample opportunity to ask any questions, and his questions were answered. My total encounter time on 02/08/2023 was 30minutes which was spent in the activities documented above. This includes time spent prior to the visit and after the visit in direct care of the patient. This time does not include time spent in any separately reportable services. ELECTRONICALLY SIGNED - 02/09/2023 05:11 AM Paulina Jones MD, MPH weather forcaster Division of Gastroenterology AG/lw documented in this encounter Plan of Treatment Upcoming Encounters Date Type Department Care Team (Late st Contact Info) Description 11/09/2024 Plan of Care Documentation [address] [address] [address] [place] [address] documented as of this encounter Visit Diagnoses Diagnosis Crohn's disease of both small and large intestine without complication (CMS/HCC) (HCC)- Primary Low iron Unspecified iron deficiency anemia High risk medications (not anticoagulants) long-term use Encounter for long-term (current) use of other medications documented in this encounter Historical Medications * This list may reflect changes made after this encounter. HYDROcodone-acet aminophen (NORCO) 5-325 mg per tablet Take 1 tablet by mouth every 4 (four) hours as needed 12/27/2022 04/28/2023 folic acid (FOLVITE) 1 mg tablet 1 tablet DAILY (route: oral) 12/14/2022 12/27/2023 ergocalciferol (Vitamin D2) 50,000 unit capsule 1 capsule MONTHLY (route: oral) 06/15/2022 01/06/2024 vedolizumab (Entyvio) 300 mg recon soln 300 mg DIRECTED (route: intravenous) 04/12/2022 03/03/2023 colchicine (COLCRYS) 0.6 mg tablet 1 tablet DAILY (route: oral) 12/10/2022 12/27/2023 allopurinoL (ZYLOPRIM) 100 mg tablet 1 tablet DAILY (route: oral) 04/12/2022 12/27/2023 added in this encounter Care Teams Radiologic Technology Teacher Relationship Specialty Start Date End Date Emmanuel Wesley DO PCP - General Internal Medicine 12/11/21 documented as of this encounter
--- OUTSIDE RECORDS SUMMARY | 2024-11-11 19:11 | XMS_ITS | Encounter Summary ---
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 Infused by: [facility] Home Care ([facility] order in Epic under 'Procedures' tab). 5 mL 11 10/22/2022 3 documented as of this encounter Discharge Disposition Disposition Code Departure Means Destination Discharge to home or self care documented in this encounter Plan of Treatment Upcoming Encounters Date Type Department Care Team (Late st Contact Info) Description 11/09/2024 Plan of Care Documentation [address] [place] [address] documented as of this encounter Procedures Procedure Name Priority Date/Time Associated Diagnosis Comments DIFFERENTIAL AUTO Routine 03/03/2023 6:2 1 PM CDT IRON PROFILE W/ IBC Routine 03/03/2023 6 :21 PM CDT CBC WITH AUTO DIFFERENTIAL Routine 03/03/2023 6:21 PM CDT FERRITIN Routine 03/03/2023 6:21 PM CDT VITAMIN B12 Routine 03/03/2023 6:21 PM CDT HEPATIC FUNCTION PANEL Routine 03/03/2023 6:21 PM CDT documented in this encounter Results * Differential, auto (03/03/2023 6:21 PM CDT) Neutrophil abs 4.2 1.7 - 6.5 K/cumm [facility] Imm gran abs 0.0 0.0 - 0.1 K/cumm [facility] Lymphocyte abs 1.8 0.8 - 3.3 K/cumm [facility] Monocyte abs 0.6 0.2 - 0.8 K/cumm [facility] Eosinophil abs 0.1 0.0 - 0.5 K/cumm [facility] Basophil abs 0.0 0.0 - 0.1 K/cumm [facility] Neutrophil pct 61.7 % [facility] Comment: Interpretive Data Percent cell count reference ranges are not reported, since discordance with absolute values may lead to misinterpretation of CBC data. Current Interpretive Data was last revised on 2018. Imm gran pct 0.3 % [facility] Comment: Interpretive Data Percent cell count reference ranges are not reported, since discordance with absolute values may lead to misinterpretation of CBC data. Current Interpretive Data was last revised on 2018. Lymphocyte pct 26.8 % [facility] Comment: Interpretive Data Percent cell count reference ranges are not reported, since discordance with absolute values may lead to misinterpretation of CBC data. Current Interpretive Data was last revised on 2018. Monocyte pct 8.7 % [facility] Comment: Interpretive Data Percent cell count reference ranges are not reported, since discordance with absolute values may lead to misinterpretation of CBC data. Current Interpretive Data was last revised on 2018. Eosinophil pct 2.1 % [facility] Comment: Interpretive Data Percent cell count reference ranges are not reported, since discordance with absolute values may lead to misinterpretation of CBC data. Current Interpretive Data was last revised on 2018. Basophil pct 0.4 % [facility] Comment: Interpretive Data Percent cell count reference ranges are not reported, since discordance with absolute values may lead to misinterpretation of CBC data. Current Interpretive Data was last revised on 2018. Blood 03/03/2023 6:21 PM CDT 03/03/2023 6:21 PM CDT us Paulina Jones MD LAB BLOOD ORDERABLE S Final Result [facility] [address] [facility]. [place] [address] * (ABNORMAL) Iron profile w/ IBC (03/03/2023 6:21 PM CDT) Iron 128 50 - 150 mcg/dL [facility] Comment:Testing performed by : [facility], [address] [place] [address]., [id number] TIBC 485(H) 250 - 400 mcg/dL [facility] Comment:Testing performed by : [facility], [address] [place] [address]., [address] Transferrin saturation 26 20 - 50 % [facility] Comment:Testing performed by : [facility], [address] [place] [address]., [id number] Blood 03/03/2023 6:21 PM CDT 03/03/2023 8:13 PM CDT Paulina Jones MD LAB BLOOD ORDERABLE S Final Result Performing Organization Address [facility] Co de Phone Number [facility] [address] [place] [employer] [address] [facility] [place] [address] * Vitamin B12 (03/03/2023 6:21 PM CDT) [facility] Vitamin B12 457 230 - 1,250 pg/mL [facility] Comment:Testing performed by : [facility], [facility], [place]., [address] Blood 03/03/2023 6:21 PM CDT 03/03/2023 8:13 PM CDT Paulina Jones MD LAB BLOOD ORDERABLE S Final Result Performing Organization Address [facility] Co de Phone Number [facility] [address] [place] [employer] [place] [address] * (ABNORMAL) Ferritin (03/03/2023 6:21 PM CDT) [facility] Ferritin 21(L) 30 - 400 ng/mL [facility] Comment:Testing performed by : [facility], [facility], [place]., [address] Blood 03/03/2023 6:21 PM CDT 03/03/2023 8:13 PM CDT Paulina Jones MD LAB BLOOD ORDERABLE S Final Result [facility] [address] [facility] [place] [place], [place] [id number] * (ABNORMAL) CBC with auto differential (03/03/2023 6:21 PM CDT) [facility] WBC 6.8 3.8 - 9.9 K/cumm [facility] Hgb 13.3 13.0 - 17.5 g/dL [facility] Hct 41.2 38.9 - 50.3 % [facility] Plt 317 150 - 400 K/cumm [facility] MPV 10.2 9.1 - 12.3 fL [facility] RBC 4.80 4.30 - 5.80 M/cumm [facility] MCV 85.8 81.3 - 96.4 fL [facility] PA[facility] MCH 27.7 27.1 - 33.3 pg [facility] PUALW MCHC 32.3 32.3 - 35.7 g/dL [facility] RDW CV 15.7(H) 11.1 - 14.9 % [facility] RDW SD 47.8 35.7 - 48.1 fL [facility]ER[facility] NRBC abs 0.00 0.00 - 0.01 K/cumm [facility] Blood 03/03/2023 6:21 PM CDT 03/03/2023 6:21 PM CDT us Paulina Jones MD LAB BLOOD ORDERABLE S Final Result [facility] [address] [facility]. [place] [address] * Hepatic function panel (03/03/2023 6:21 PM CDT) Bilirubin, total 0.8 0.1 - 1.2 mg/dL [facility] Bilirubin, direct <0.2 0.1 - 0.3 mg/dL [facility] Protein, pl 7.5 6.5 - 8.5 g/dL [facility] W Albumin 4.7 3.5 - 5.0 g/dL [facility] Alk phos 66 40 - 130 Units/L [facility] ALT 37 7 - 55 Units/L [facility] AST 30 10 - 50 Units/L [facility] Blood 03/03/2023 6:21 PM CDT 03/03/2023 6:21 PM CDT us Paulina Jones MD LAB BLOOD ORDERABLE S Final Result [facility] [address] [facility]. [place] [address] documented in this encounter Visit Diagnoses Not on filedocumented in this encounter Care Teams Truck Repair Service Estimator Relationship Specialty Start Date End Date Emmanuel Wesley DO PCP - General Internal Medicine 12/11/21 documented as of this encounter
--- OUTSIDE RECORDS SUMMARY | 2024-11-11 19:11 | XMS_ITS | Encounter Summary ---
Author Organization [facility] Address [address] [place] [address] Phone Care Team Providers Care Water Inspector Name Role Phone Emmanuel Wesley DO Primary Care Provider [phone]- [phone] Reason for Visit * Reason Onset Date Comments [facility] Visit 04/12/2022 Encounter Details Date Type Department Care Team (Late st Contact Info) Description 04/12/2022 Documentation [facility] Gastroenterology [address] [facility] [address] [place] [address] [place] [address] Radha Goodwin RMA [facility] Visit Social History Tobacco Use Types Packs/Day Years [...] on file 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 Gender Identity Not on file Sexual Orientation Not on file documented as of this encounter Progress Notes * Radha Goodwin RMA - 04/12/2022 2:00 PM CDT Forwarded recent GI recs to [facility],fax [phone] Upcoming appt at [facility] 04/27/22 documented in this encounter Plan of Treatment Upcoming Encounters Date Type Department Care Team (Late st Contact Info) Description 11/09/2024 Plan of Care Documentation [address] [address] [address] [place] [address] documented as of this encounter Visit Diagnoses Not on filedocumented in this encounter Care Teams Water Inspector Relationship Specialty Start Date End Date Emmanuel Wesley DO PCP - General Internal Medicine 12/11/21 documented as of this encounter
--- OUTSIDE RECORDS SUMMARY | 2024-11-11 19:11 | XMS_ITS | Encounter Summary ---
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 15 tablet 05/26/2021 4 budesonide 2 mg/actuation foamIndications:Pr octitis Insert 1 application into the rectum daily 33.4 g 1 12/09/2021 2 budesonide 2 mg/actuation foamIndications:Cr ohn's disease of both small and large intestine without complication (CMS/HCC) ([facility]) Insert 1 applicator into the rectum daily 33.4 g 05/20/2022 2 ergocalciferol (VITAMIN D) 50,000 unit capsuleIndications :Low vitamin D level Take 1 cap PO monthly 12 capsule 02/01/2022 4 folic acid (FOLVITE) 1 mg tabletIndications: Crohn's disease of both small and large intestine without complication (CMS/HCC) ([facility]) Take 1 tablet (1 mg total) by mouth daily 90 tablet 3 02/27/2021 3 hydrocortisone (CORTENEMA) 100 mg/60 mL enemaIndications:U lcerative Colitis Insert 1 enema (100 mg total) into the rectum nightly as needed 30 enema 12/09/2021 2 hydrocortisone (PROCTOCORT) 10 % (80 mg) rectal foamIndications:Ul cerative Proctitis Insert 1 applicator into the rectum daily Use as directed 30 each 05/20/2022 2 hydrocortisone-pra moxine (PROCTOFOAM-HC) rectal foamIndications:Pr uritus Ani [The details of the medication are not available because there are pending changes by a home health clinician.] 10 g 1 12/28/2019 3 ozanimod 0.23 mg (4)- 0.46 mg (3) capsule,dose pack Take 1 tablet by mouth daily Days 1-4: Zeposia 0.23 mg daily. Days 5-7: Zeposia 0.46 mg daily. Day 8 and thereafter: Zeposia 0.92 mg daily. 02/22/2022 2 ozanimod 0.92 mg capsule Take 0.92 mg by mouth daily After completion of induction doses. 03/02/2022 2 predniSONE (DELTASONE) 10 mg tabletIndications: Crohn's disease of both small and large intestine without complication (CMS/HCC) (HCC) Take 40 mg (4 tablets) daily X 1 week, then take 30 mg (3 tablets) daily X 1 week, then take 20 mg (2 tablets) daily X 1 week, then take 10 mg (1 tablet) daily X 1 week. Then stop Prednisone. 70 tablet 12/04/2021 2 vedolizumab (ENTYVIO) 300 mg recon soln Infuse 300 mg into a venous catheter every 4 (four) weeks 2 vedolizumab (Entyvio) 300 mg recon soln 300 mg DIRECTED (route: intravenous) 04/12/2022 3 documented as of this encounter Discharge Disposition Disposition Code Departure Means Destination Discharge to home or self care documented in this encounter Plan of Treatment Upcoming Encounters Date Type Department Care Team (Late st Contact Info) Description 11/09/2024 Plan of Care Documentation [address] [address] [address] [place] [address] documented as of this encounter Procedures Procedure Name Priority Date/Time Associated Diagnosis Comments HEPATIC FUNCTION PANEL Routine 05/06/2022 2:35 PM CDT Crohn's disease of small and large intestines with complication (CMS/HCC) (HCC) DIFFERENTIAL AUTO Routine 05/06/2022 1:1 0 PM CDT Crohn's disease of small and large intestines with complication (CMS/HCC) (HCC) CBC WITH AUTO DIFFERENTIAL Routine 05/06/2022 1:10 PM CDT Crohn's disease of small and large intestines with complication (CMS/HCC) (HCC) documented in this encounter Results * Hepatic function panel (05/06/2022 2:35 PM CDT) Bilirubin, total 0.8 0.1 - 1.2 mg/dL [facility] Bilirubin, direct <0.2 0.1 - 0.3 mg/dL [facility] Protein, pl 6.9 6.5 - 8.5 g/dL [facility] Albumin 4.3 3.5 - 5.0 g/dL [facility] Alk phos 73 40 - 130 Units/L [facility] ALT 26 7 - 55 Units/L [facility] AST 25 10 - 50 Units/L [facility] Blood 05/06/2022 2:35 PM CDT 05/06/2022 3:37 PM CDT us Paulina Jones MD LAB BLOOD ORDERABLE S Final Result [facility] [address] [facility]. Department [place] [address] * (ABNORMAL) Differential, auto (05/06/2022 1:10 PM CDT) Neutrophil abs 6.4 1.7 - 6.5 K/cumm [facility] Comment:[facility] [place] [address] Imm gran abs 0.0 0.0 - 0.1 K/cumm [facility] Comment:[facility] : [facility] [place] [address] Lymphocyte abs 0.6(L) 0.8 - 3.3 K/cumm [facility] Comment:[facility] : [facility] [place] [address] Monocyte abs 1.0(H) 0.2 - 0.8 K/cumm [facility] Comment:Testing performed [facility] : [facility] [place] [place] [address] Eosinophil abs 0.1 0.0 - 0.5 K/cumm [facility] Comment:Testing performed [facility] : [facility] [place] [address] Basophil abs 0.0 0.0 - 0.1 K/cumm [facility] Comment:Testing performed by : [address] [place] [address] Neutrophil pct 78.6 % [facility] Comment: Interpretive Data Percent cell count reference ranges are not reported, since discordance with absolute values may lead to misinterpretation of CBC data. Current Interpretive Data was last revised on 2018. Testing performed by: [address] [place] [address] Imm gran pct 0.5 % [facility] Comment: Interpretive Data Percent cell count reference ranges are not reported, since discordance with absolute values may lead to misinterpretation of CBC data. Current Interpretive Data was last revised on 2018. Testing performed by: [address] [place] [address] Lymphocyte pct 7.5 % [facility] Comment: Interpretive Data Percent cell count reference ranges are not reported, since discordance with absolute values may lead to misinterpretation of CBC data. Current Interpretive Data was last revised on 2018. Testing performed by: [address] [place] [address] Monocyte pct 12.1 % [facility] Comment: Interpretive Data Percent cell count reference ranges are not reported, since discordance with absolute values may lead to misinterpretation of CBC data. Current Interpretive Data was last revised on 2018. Testing performed by: [address] [place] [address] Eosinophil pct 1.1 % [facility] Comment: Interpretive Data Percent cell count reference ranges are not reported, since discordance with absolute values may lead to misinterpretation of CBC data. Current Interpretive Data was last revised on 2018. Testing performed by: [address] [place] [address] Basophil pct 0.2 % [facility] Comment: Interpretive Data Percent cell count reference ranges are not reported, since discordance with absolute values may lead to misinterpretation of CBC data. Current Interpretive Data was last revised on 2018. Testing performed by: [address] [place] [address] Blood 05/06/2022 1:10 PM CDT 05/06/2022 2:47 PM CDT us Paulina Jones MD LAB BLOOD ORDERABLE S Final Result [facility] [address] [facility] Department [place] [address] * CBC with auto differential (05/06/2022 1:10 PM CDT) WBC 8.1 3.8 - 9.9 K/cumm [facility] Comment:Testing performed by : [facility] [address], [place] [address] Hgb 13.2 13.0 - 17.5 g/dL [facility] Comment:Testing performed by : [facility] [address], [place] [address] Hct 40.8 38.9 - 50.3 % [facility] Comment:Testing performed by : [facility] [address], [place] [address] Plt 306 150 - 400 K/cumm [facility] Comment:Testing performed by : [facility] [address], [place] [address] MPV 10.2 9.1 - 12.3 fL [facility] Comment:Testing performed by : [facility] [address], [place] [address] RBC 4.79 4.30 - 5.80 M/cumm [facility] Comment:Testing performed by : [facility] [address], [place] [address] MCV 85 81 - 96 fL [facility] Comment:Testing performed by : [facility] [address], [place] [address] MCH 27.6 27.1 - 33.3 pg [facility]DO [facility] Comment:Testing performed by : [facility] [address], [place] [address] MCHC 32.4 32.3 - 35.7 g/dL [facility]DO [facility] Comment:Testing performed by : [facility] [place] [address] RDW CV 12.9 11.1 - 14.9 % [facility]DO [facility] Comment:Testing performed [facility] : [facility] [address], [place] [address] RDW SD 39.5 35.7 - 48.1 fL ALDO GO Comment:Testing performed by : [facility] [place] [address] [place] [address] Blood 05/06/2022 1:10 PM CDT 05/06/2022 2:47 PM CDT us Paulina Jones MD LAB BLOOD ORDERABLE S Final Result [facility] [address] [facility] Department [place] [address] documented in this encounter Visit Diagnoses Diagnosis Crohn's disease of small and large intestines with complication (HCC) documented in this encounter Care Teams Superintendent Local Relationship Specialty Start Date End Date Emmanuel Wesley DO PCP - General Internal Medicine 12/11/21 documented as of this encounter
--- OUTSIDE RECORDS SUMMARY | 2024-11-11 19:11 | XMS_ITS | Encounter Summary ---
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 15 tablet 05/26/2021 4 budesonide 2 mg/actuation foamIndications:Pr octitis Insert 1 application into the rectum daily 33.4 g 1 12/09/2021 2 ergocalciferol (VITAMIN D) 50,000 unit capsuleIndications [...] nightly as needed 30 enema 12/09/2021 2 hydrocortisone-pra moxine (PROCTOFOAM-HC) rectal foamIndications:Pr uritus [...] venous catheter every 4 (four) weeks 2 documented as of this encounter Discharge Disposition Disposition Code Departure Means Destination Discharge to home or self care documented in this encounter Plan of Treatment Upcoming Encounters Date Type Department Care Team (Late st Contact Info) Description 11/09/2024 Plan of Care Documentation [address] [place] [address] documented as of this encounter Procedures Procedure Name Priority Date/Time Associated Diagnosis Comments DIFFERENTIAL AUTO Routine 04/08/2022 1:4 5 PM CDT Crohn's disease of small and large intestines with complication (CMS/HCC) (HCC) CBC WITH AUTO DIFFERENTIAL Routine 04/08/2022 1:45 PM CDT Crohn's disease of small and large intestines with complication (CMS/HCC) (HCC) HEPATIC FUNCTION PANEL Routine 04/08/2022 1:45 PM CDT documented in this encounter Results * (ABNORMAL) Differential, auto (04/08/2022 1:45 PM CDT) Neutrophil abs 5.0 1.7 - 6.5 K/cumm [facility] Imm gran abs 0.0 0.0 - 0.1 K/cumm [facility] Lymphocyte abs 0.6(L) 0.8 - 3.3 K/cumm [facility] Monocyte abs 0.8 0.2 - 0.8 K/cumm [facility] Eosinophil abs 0.1 0.0 - 0.5 K/cumm [facility] Basophil abs 0.0 0.0 - 0.1 K/cumm [facility] Neutrophil pct 76.4 % [facility] Comment: Interpretive Data Percent cell count reference ranges are not reported, since discordance with absolute values may lead to misinterpretation of CBC data. Current Interpretive Data was last revised on 2018. Imm gran pct 0.5 % [facility] Comment: Interpretive Data Percent cell count reference ranges are not reported, since discordance with absolute values may lead to misinterpretation of CBC data. Current Interpretive Data was last revised on 2018. Lymphocyte pct 8.7 % [facility] Comment: Interpretive Data Percent cell count reference ranges are not reported, since discordance with absolute values may lead to misinterpretation of CBC data. Current Interpretive Data was last revised on 2018. Monocyte pct 12.7 % [facility] Comment: Interpretive Data Percent cell count reference ranges are not reported, since discordance with absolute values may lead to misinterpretation of CBC data. Current Interpretive Data was last revised on 2018. Eosinophil pct 1.4 % [facility] Comment: Interpretive Data Percent cell count reference ranges are not reported, since discordance with absolute values may lead to misinterpretation of CBC data. Current Interpretive Data was last revised on 2018. Basophil pct 0.3 % [facility] Comment: Interpretive Data Percent cell count reference ranges are not reported, since discordance with absolute values may lead to misinterpretation of CBC data. Current Interpretive Data was last revised on 2018. Blood 04/08/2022 1:45 PM CDT 04/08/2022 3:06 PM CDT us Paulina Jones MD LAB BLOOD ORDERABLE S Final Result [facility] [address] [facility]. [place] [address] * Hepatic function panel (04/08/2022 1:45 PM CDT) Bilirubin, total 0.7 0.1 - 1.2 mg/dL [facility] Bilirubin, direct <0.2 0.1 - 0.3 mg/dL [facility] Protein, pl 7.0 6.5 - 8.5 g/dL [facility] Albumin 4.1 3.5 - 5.0 g/dL [facility] Alk phos 74 40 - 130 Units/L [facility] ALT 20 7 - 55 Units/L [facility] AST 24 10 - 50 Units/L [facility] Blood 04/08/2022 1:45 PM CDT 04/08/2022 3:57 PM CDT Paulina Jones MD LAB BLOOD ORDERABLE S Final Result Performing Organization Address [facility] Co de Phone Number ALDO GO [address] [facility] [facility] [place] [address] * (ABNORMAL) CBC with auto differential (04/08/2022 1:45 PM CDT) Pathologist [facility] WBC 6.5 3.8 - 9.9 K/cumm [facility] Hgb 12.9(L) 13.0 - 17.5 g/dL [facility] Hct 39.3 38.9 - 50.3 % [facility] Plt 280 150 - 400 K/cumm [facility] MPV 10.2 9.1 - 12.3 fL [facility] RBC 4.53 4.30 - 5.80 M/cumm [facility] MCV 86.8 81.3 - 96.4 fL [facility] MCH 28.5 27.1 - 33.3 pg [facility] MCHC 32.8 32.3 - 35.7 g/dL [facility] RDW CV 12.7 11.1 - 14.9 % [facility] RDW SD 39.5 35.7 - 48.1 fL [facility] NRBC abs 0.00 0.00 - 0.01 K/cumm [facility] Blood 04/08/2022 1:45 PM CDT 04/08/2022 3:57 PM CDT Paulina Jones MD LAB BLOOD ORDERABLE S Final Result [facility] GO [address] [facility] [facility] [address] [place], [place] [id number] documented in this encounter Visit Diagnoses Diagnosis Crohn's disease of small and large intestines with complication (HCC) documented in this encounter Orders Lab Orders Without Results Count Last Ordered D ate First Ordered Date HEPATIC FUNCTION PANEL 1 04/08/2022 documented in this encounter Care Teams Sewing Supervisor Relationship Specialty Start Date End Date Emmanuel Wesley DO PCP - General Internal Medicine 12/11/21 documented as of this encounter
--- OUTSIDE RECORDS SUMMARY | 2024-11-11 19:11 | XMS_ITS | Encounter Summary ---
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
--- OUTSIDE RECORDS SUMMARY | 2024-11-11 19:12 | XMS_ITS | Encounter Summary ---
Author Organization 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 Gender Identity Not on file Sexual Orientation Not on file documented as of this encounter Plan of Treatment Upcoming Encounters Date Type Department Care Team (Late st Contact Info) Description 11/09/2024 Plan of Care Documentation [address] [address] [address] [place] [address] documented as of this encounter Procedures Procedure Name Priority Date/Time Associated Diagnosis Comments DIFFERENTIAL AUTO Routine 10/23/2021 3:1 5 PM BATH DESIGN SALES CONSULTANT Crohn's disease of small and large intestines with complication (CMS/HCC) (HCC) CBC WITH AUTO DIFFERENTIAL Routine 10/23/2021 3:15 PM BATH DESIGN SALES CONSULTANT Crohn's disease of small and large intestines with complication (CMS/HCC) (HCC) HEPATIC FUNCTION PANEL Routine 10/23/2021 3:15 PM BATH DESIGN SALES CONSULTANT Crohn's disease of small and large intestines with complication (CMS/HCC) (HCC) LIPID PANEL Routine 10/23/2021 3:15 PM BATH DESIGN SALES CONSULTANT Crohn's disease of small and large intestines with complication (CMS/HCC) (HCC) documented in this encounter Results * Differential, auto (10/23/2021 3:15 PM BATH DESIGN SALES CONSULTANT) Neutrophil abs 6.0 1.7 - 6.5 K/cumm [facility] Imm gran abs 0.0 0.0 - 0.1 K/cumm [facility] Lymphocyte abs 1.6 0.8 - 3.3 K/cumm [facility] Monocyte abs 0.6 0.2 - 0.8 K/cumm [facility] Eosinophil abs 0.1 0.0 - 0.5 K/cumm [facility] Basophil abs 0.0 0.0 - 0.1 K/cumm [facility] Neutrophil pct 71.8 % [facility] Comment: Interpretive Data Percent cell count reference ranges are not reported, since discordance with absolute values may lead to misinterpretation of CBC data. Current Interpretive Data was last revised on 2018. Imm gran pct 0.4 % [facility] Comment: Interpretive Data Percent cell count reference ranges are not reported, since discordance with absolute values may lead to misinterpretation of CBC data. Current Interpretive Data was last revised on 2018. Lymphocyte pct 18.9 % [facility] Comment: Interpretive Data Percent cell count reference ranges are not reported, since discordance with absolute values may lead to misinterpretation of CBC data. Current Interpretive Data was last revised on 2018. Monocyte pct 7.3 % [facility] Comment: Interpretive Data Percent cell count reference ranges are not reported, since discordance with absolute values may lead to misinterpretation of CBC data. Current Interpretive Data was last revised on 2018. Eosinophil pct 1.1 % [facility] Comment: Interpretive Data Percent cell count reference ranges are not reported, since discordance with absolute values may lead to misinterpretation of CBC data. Current Interpretive Data was last revised on 2018. Basophil pct 0.5 % [facility] Comment: Interpretive Data Percent cell count reference ranges are not reported, since discordance with absolute values may lead to misinterpretation of CBC data. Current Interpretive Data was last revised on 2018. Blood 10/23/2021 3:15 PM BATH DESIGN SALES CONSULTANT 10/23/2021 3:57 PM BATH DESIGN SALES CONSULTANT us Paulina Jones MD LAB BLOOD ORDERABLE S Final Result [facility] [address] [facility]. Department [place] [address] * (ABNORMAL) Lipid panel (10/23/2021 3:15 PM BATH DESIGN SALES CONSULTANT) Cholesterol 223(H) 30 - 199 mg/dL [facility] Comment: Interpretive Data Ages < or = [...] Data was last revised on 2018. Triglycerides 186(H) <=149 mg/dL [facility] Comment: Interpretive Data Ages < or = [...] Data was last revised on 2018. HDL 38(L) >=40 mg/dL [facility] Comment: Interpretive Data Ages < or = [...] was last revised on 2018. LDL, calculated 148(H) <=129 mg/dL [facility] Comment: Interpretive Data Ages < or = 19 years ??Acceptable: ? <110 mg/dL ??Borderline high: ??110-129 mg/dL ??High: ?>or= 130 mg/dL Ages > or = 20 years ??Optimal: ? <100 mg/dL ??Near optimal: ?100-129 mg/dL ??Borderline high: ?? 130-159 mg/dL ??High: ?>160 mg/dL Literature References: 1. Expert Panel on Integrated Guidelines for Cardiovascular Health and Risk Reduction in Children and Adolescents. Pediatrics 2011;128:S213 2. NCEP Expert Panel. Circulation 2004;110:227 Current Interpretive Data was last revised on 2018. Non-HDL Cholesterol 185 mg/dL [facility] Comment: Interpretive Data Ages < or = [...] last revised on 2018. Chol/HDL ratio 6 [facility] Blood 10/23/2021 3:15 PM BATH DESIGN SALES CONSULTANT 10/23/2021 3:57 PM BATH DESIGN SALES CONSULTANT us Paulina Jones MD LAB BLOOD ORDERABLE S Final Result [facility]DO [facility] [id number] [facility]. Department [place] [address] * Hepatic function panel (10/23/2021 3:15 PM BATH DESIGN SALES CONSULTANT) Bilirubin, total 0.6 0.1 - 1.2 mg/dL [facility] Bilirubin, direct <0.2 0.1 - 0.3 mg/dL [facility] Protein, pl 7.3 6.5 - 8.5 g/dL [facility] Albumin 4.7 3.5 - 5.0 g/dL [facility] Alk phos 63 40 - 130 Units/L [facility] ALT 20 7 - 55 Units/L [facility] AST 20 10 - 50 Units/L [facility] Blood 10/23/2021 3:15 PM BATH DESIGN SALES CONSULTANT 10/23/2021 3:57 PM BATH DESIGN SALES CONSULTANT us Paulina Jones MD LAB BLOOD ORDERABLE S Final Result [facility]DO [facility] [address] [facility]. Department [place] [address] * (ABNORMAL) CBC with auto differential (10/23/2021 3:15 PM BATH DESIGN SALES CONSULTANT) [facility] WBC 8.4 3.8 - 9.9 K/cumm [facility] Hgb 13.1 13.0 - 17.5 g/dL [facility] Hct 42.2 38.9 - 50.3 % [facility] Plt 307 150 - 400 K/cumm [facility] MPV 10.4 9.1 - 12.3 fL [facility] RBC 4.80 4.30 - 5.80 M/cumm [facility] MCV 87.9 81.3 - 96.4 fL [facility] MCH 27.3 27.1 - 33.3 pg [facility] MCHC 31.0(L) 32.3 - 35.7 g/dL [facility] RDW CV 14.1 11.1 - 14.9 % [facility] RDW SD 45.0 35.7 - 48.1 fL [facility] NRBC abs 0.00 0.00 - 0.01 K/cumm [facility] Blood 10/23/2021 3:15 PM BATH DESIGN SALES CONSULTANT 10/23/2021 3:57 PM BATH DESIGN SALES CONSULTANT us Paulina Jones MD LAB BLOOD ORDERABLE S Final Result [facility] [address] [facility]. Department [place] [address] documented in this encounter Visit Diagnoses Diagnosis Crohn's disease of small and large intestines with complication (HCC) documented in this encounter Care Teams Slackline Operator Relationship Specialty Start Date End Date Kirstie Jarrell MD [address] [place] [address] [address] [place] [address] PCP - General 08/07/21 12/10/21 documented as of this encounter
--- OUTSIDE RECORDS SUMMARY | 2024-11-11 19:12 | XMS_ITS | Encounter Summary ---
Author Organization [facility] Address [address] [place] [address] Phone Care Team Providers Care Service Or Work Dispatcher Chief Name Role Phone Emmanuel Wesley DO Primary Care Provider [phone]- [phone] Reason for Visit * Reason Onset Date Comments Zeposia Samples 02/18/2022 Zeposia New Start 02/18/2022 Encounter Details Date Type Department Care Team (Late st Contact Info) Description 02/18/2022 Documentation [facility] Gastroenterology [address] [facility] [address] 8th [place] [address] [place] [address] Zora Shearer Zeposia Samples; Zeposia New Start Social History Tobacco Use Types Packs/Day Years [...] 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 While we wait to see if the pts medication is approved, 1 month of samples (includes 7 day induction and maintenance) has been mailed to the pts home address. Dr. Jones's office has notified the pt so he is aware via [employer]. The pt will remain updated on the status of his Zeposia auth. * Eryn Dalton LPN - 02/18/2022 3:26 PM CDT Portal msg sent to pt to find out whether he would prefer that Zeposia form be sent to him via portal for completion/signature or if he would like us to mail the form to his home address. Reminder set to follow up and ensure that pt does get back with our office re: paperwork. * Eryn Dalton LPN - 02/18/2022 3:26 PM CDT Images from the original note were not included. 02/23/22: Zeposia GI start form (pt's portion) received with pt's signature this afternoon. Pt's portion and provider portion along with ins card faxed to [employer] this afternoon at . Reminder set for follow up. * Eryn Dalton LPN - 02/18/2022 3:26 PM CDT Images from the original note were not included. Below fax received from [employer]. * Eryn Dalton LPN - 02/18/2022 3:26 PM CDT Images from the original note were not included. Below fax received from [employer]. Also forwarded to scanning to be uploaded into pt's chart. documented in this encounter Plan of Treatment Upcoming Encounters Date Type Department Care Team (Late st Contact Info) Description 11/09/2024 Plan of Care Documentation [address] [address] [address] [place] [address] documented as of this encounter Visit Diagnoses Not on filedocumented in this encounter Care Teams Service Or Work Dispatcher Chief Relationship Specialty Start Date End Date Emmanuel Wesley DO PCP - General Internal Medicine 12/11/21 documented as of this encounter
--- OUTSIDE RECORDS SUMMARY | 2024-11-11 19:12 | XMS_ITS | Encounter Summary ---
Author Organization [facility] Address [address] [place] [address] Phone Care Team Providers Care Mandrel Puller Name Role Phone Bonnie eWsley DO Primary Care Provider [phone]- [phone] Reason for Referral * Cardiology (Routine) - Closed Specialty Diagnoses / Procedures Referred By Med ojeda Referred To Contact Diagnoses Bradycardia Procedures ECG 12 lead Mike Chapman MD Phone: tel: fax: [facility] (All Locations) Referral ID Status Reason Start Date Expiration Date Visits Re quested Visits Authorized [id number] Closed 01/19/2022 02/18/2023 1 1 Reason for Visit * Consultation (Routine) - Closed Specialty Diagnoses / Procedures Referred By Med ojeda Referred To Contact Cardiology Diagnoses Bradycardia Lorna Velez MD [address] [place] [address] Phone: tel: fax: Mike Chapman MD [address] [address] Phone: tel: fax: Referral ID Status Reason Start Date Expiration Date V isits Requested Visits Authorized [id number] Closed Specialty Services Required 12/09/2021 01/08/2023 99 99 Encounter Details Date Type Department Care Team (Late st Contact Info) Description 01/19/2022 1:00 PM CDT Office Visit 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 Gender Identity Not on file Sexual Orientation Not on file documented as of this encounter Last Filed Vital Signs Vital Sign Reading Time Taken Comments Blood Pressure 135/96 01/19/2022 1:01 PM CDT Pulse 55 01/19/2022 1:01 PM CDT Temperature - - Respiratory Rate - - Oxygen Saturation 99% 01/19/2022 1:01 PM CDT Inhaled Oxygen Concentration - - Weight 113.8 kg (250 lb 12.8 oz) 2021 12:59 PM CDT Height 190.5 cm (6' 3 ) 01/19/2022 12:5 9 PM CDT Body Mass Index 31.35 01/19/2022 12:59 PM CDT documented in this encounter Progress Notes * Mike Chapman MD - 01/19/2022 12:00 AM CDT Date: 01/19/2022 LORNA VELEZ MD [address], [address] [place] [address] Patient Name: DANTE PERALTA Date of : 1980 Date of Visit: 01/19/2022 Dear Fredis: Thank you for asking me to see Dante Peralta today for Cardiac evaluation prior to initiate medications. I have seen and examined Mr. Peralta personally. The patient is a good historian. He comes in accompanied by his . He has no significant cardiachistory. He does have a history of Crohn disease and is noted to have a low heart rate at times. Hestates that while sitting on his couch his Apple Watch will flag his heart rate in the low 40s. He has no symptoms associated with this. He is active at baseline. He has had no syncope, near- syncope or tachy palpitations. His does not note any snoring, although there are times that he has a heavy sign while breathing. He does not endorse any significant daytime somnolence, although notes some fatigue which he attributes to getting up at night to go to the bathroom due to his Crohn's. he does note occasional lightheadedness when standing quickly. He is being seentoday regarding recommendations prior to the use of Zeposia (ozanimod) PAST MEDICAL HISTORY: Notable for Crohn's. FAMILY HISTORY: Noncontributory. His father has hypertension and his mother is healthy. He has one brother who is healthy. They have 3 children who are alive and healthy. SOCIAL HISTORY: He is a never smoker. Drinks on occasion. 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 CURRENT MEDICATIONS: His medications were reviewed with him today and include Entyvio. PHYSICAL EXAMINATION: VITAL SIGNS: Blood pressure is 135/90 in the left arm, 150/100 in the right. Pulse is 55. Weight 113 kg. BMI is 31.3. GENERAL: Pleasant, no acute distress. HEENT: Normal. LUNGS: Clear. CARDIOVASCULAR: Regular rate and rhythm. S1, S2. No S3. No S4. Neck veins are not elevated. Carotids 2+ bilaterally. No bruits are heard. PMI is discrete. ABDOMEN: Soft, nontender, nondistended. EXTREMITIES: No edema. Distal pulses are 2+ bilaterally. NEUROLOGIC: Nonfocal. DATA: His ECG, reviewed personally, shows sinus bradycardia at 55 beats per minute. Intervals are normal.There are no ischemic changes noted. IMPRESSION/PLAN: Dante Peralta is seen today for a cardiac evaluation prior to potential initiation of Zeposia. He is not symptomatic, and as we discussed it is not uncommon for otherwise healthy adults to have higher vagal tone and be bradycardic at times at rest. however review of package inserts indicates that high degree AV block such as Mobitz 2 second-degree or third-degree as well as sick sinus syndromeand sinoatrial block are cardiac contraindications to use of this medication. In view of these restrictions and documented bradycardia, it seems reasonable to have him wear a 3 day monitor to document any significant heart block. And while Zeposia may cause bradycardia I wouldnot see his resting bradycardia has a specific contraindication barring any of the aforementioned contraindications. He is hypertensive today and I have recommended he watch this at home. He should check blood pressure daily, and if it remains elevated and he feels fine he should follow up with his primary care forthis. Appropriate follow-up will be arranged as needed. Respectfully, ELECTRONICALLY SIGNED - 01/22/2022 01:36 PM Mike Chapman M.D., F.A.C.C. associate professor of geology AK/bp cc: LORNA VELEZ MD / BONNIE WESLEY DO / / documented in this encounter Plan of Treatment Upcoming Encounters Date Type Department Care Team (Late st Contact Info) Description 11/09/2024 Plan of Care Documentation [address] [address] [address] [place] [address] documented as of this encounter Procedures Procedure Name Priority Date/Time Associated Diagnosis Comments ECG 12-LEAD Routine 01/19/2022 Bradycardia documented in this encounter Results * ECG 12 lead (01/19/2022) us Mike Chapman MD ECG ORDERABLES Final Result documented in this encounter Visit Diagnoses Diagnosis Bradycardia Other specified cardiac dysrhythmias documented in this encounter Orders Outpatient Referral Count Last Ordered Date Fir st Ordered Date AMB REFERRAL TO CARDIOLOGY 1 01/19/2022 documented in this encounter Care Teams Mandrel Puller Relationship Specialty Start Date End Date Bonnie Wesley DO PCP - General Internal Medicine 12/11/21 documented as of this encounter
--- OUTSIDE RECORDS SUMMARY | 2024-11-11 19:12 | XMS_ITS | Encounter Summary ---
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 Gender Identity Not on file Sexual Orientation Not on file documented as of this encounter Plan of Treatment Upcoming Encounters Date Type Department Care Team (Late st Contact Info) Description 11/09/2024 Plan of Care Documentation [address] [place] [address] documented as of this encounter Procedures Procedure Name Priority Date/Time Associated Diagnosis Comments DIFFERENTIAL AUTO Routine 12/18/2021 12: 55 PM IMPACT HAMMER OPERATOR Crohn's disease of small and large intestines with complication (CMS/HCC) (HCC) CBC WITH AUTO DIFFERENTIAL Routine 12/18/2021 12:55 PM IMPACT HAMMER OPERATOR Crohn's disease of small and large intestines with complication (CMS/HCC) (HCC) HEPATIC FUNCTION PANEL Routine 12/18/2021 12:55 PM IMPACT HAMMER OPERATOR Crohn's disease of small and large intestines with complication (CMS/HCC) (HCC) LIPID PANEL Routine 12/18/2021 12:55 PM IMPACT HAMMER OPERATOR Crohn's disease of small and large intestines with complication (CMS/HCC) (HCC) documented in this encounter Results * (ABNORMAL) Differential, auto (12/18/2021 12:55 PM IMPACT HAMMER OPERATOR) Neutrophil abs 7.8(H) 1.7 - 6.5 K/cumm [facility] Imm gran abs 0.1 0.0 - 0.1 K/cumm [facility] Lymphocyte abs 1.9 0.8 - 3.3 K/cumm [facility] Monocyte abs 0.8 0.2 - 0.8 K/cumm [facility] Eosinophil abs 0.0 0.0 - 0.5 K/cumm [facility] Basophil abs 0.0 0.0 - 0.1 K/cumm [facility] Neutrophil pct 73.4 % [facility] Comment: Interpretive Data Percent cell count reference ranges are not reported, since discordance with absolute values may lead to misinterpretation of CBC data. Current Interpretive Data was last revised on 2018. Imm gran pct 0.7 % [facility] Comment: Interpretive Data Percent cell count reference ranges are not reported, since discordance with absolute values may lead to misinterpretation of CBC data. Current Interpretive Data was last revised on 2018. Lymphocyte pct 17.9 % [facility] Comment: Interpretive Data Percent cell count reference ranges are not reported, since discordance with absolute values may lead to misinterpretation of CBC data. Current Interpretive Data was last revised on 2018. Monocyte pct 7.4 % [facility] Comment: Interpretive Data Percent cell count reference ranges are not reported, since discordance with absolute values may lead to misinterpretation of CBC data. Current Interpretive Data was last revised on 2018. Eosinophil pct 0.4 % [facility] Comment: Interpretive Data Percent cell count reference ranges are not reported, since discordance with absolute values may lead to misinterpretation of CBC data. Current Interpretive Data was last revised on 2018. Basophil pct 0.2 % [facility] Comment: Interpretive Data Percent cell count reference ranges are not reported, since discordance with absolute values may lead to misinterpretation of CBC data. Current Interpretive Data was last revised on 2018. Blood 12/18/2021 12:5 5 PM IMPACT HAMMER OPERATOR 12/18/2021 3:11 PM IMPACT HAMMER OPERATOR us Paulina Jones MD LAB BLOOD ORDERABLE S Final Result [facility] [address] [facility]. [place] [address] * Lipid panel (12/18/2021 12:55 PM IMPACT HAMMER OPERATOR) Cholesterol 193 30 - 199 mg/dL [facility] Comment: [...] Data was last revised on 2018. Triglycerides 124 <=149 mg/dL [facility] Comment: Interpretive Data [...] Data was last revised on 2018. HDL 42 >=40 mg/dL [facility] Comment: Interpretive Data [...] was last revised on 2018. LDL, calculated 126 <=129 mg/dL [facility] Comment: Interpretive Data [...] was last revised on 2018. Non-HDL Cholesterol 151 mg/dL [facility] Comment: Interpretive Data Ages [...] was last revised on 2018. Chol/HDL ratio 5 [facility] Blood 12/18/2021 12:5 5 PM IMPACT HAMMER OPERATOR 12/18/2021 3:11 PM IMPACT HAMMER OPERATOR us Paulina Jones MD LAB BLOOD ORDERABLE S Final Result [facility] [address] [facility]. [place] [address] * Hepatic function panel (12/18/2021 12:55 PM IMPACT HAMMER OPERATOR) Bilirubin, total 0.7 0.1 - 1.2 mg/dL [facility] Bilirubin, direct <0.2 0.1 - 0.3 mg/dL [facility] Protein, pl 6.8 6.5 - 8.5 g/dL [facility] Albumin 4.4 3.5 - 5.0 g/dL [facility] Alk phos 49 40 - 130 Units/L [facility] ALT 18 7 - 55 Units/L [facility] AST 17 10 - 50 Units/L [facility] Blood 12/18/2021 12:5 5 PM IMPACT HAMMER OPERATOR 12/18/2021 3:11 PM IMPACT HAMMER OPERATOR us Paulina Jones MD LAB BLOOD ORDERABLE S Final Result [facility]DO [facility] [address] [facility]. [place] [address] * (ABNORMAL) CBC with auto differential (12/18/2021 12:55 PM IMPACT HAMMER OPERATOR) [facility] WBC 10.6(H) 3.8 - 9.9 K/cumm [facility] Hgb 13.4 13.0 - 17.5 g/dL [facility] Hct 41.0 38.9 - 50.3 % [facility] Plt 277 150 - 400 K/cumm [facility] MPV 10.0 9.1 - 12.3 fL [facility] RBC 4.68 4.30 - 5.80 M/cumm [facility] BJW MCV 87.6 81.3 - 96.4 fL [facility] MCH 28.6 27.1 - 33.3 pg [facility] MCHC 32.7 32.3 - 35.7 g/dL [facility] RDW CV 14.9 11.1 - 14.9 % [facility] RDW SD 47.3 35.7 - 48.1 fL [facility] NRBC abs 0.00 0.00 - 0.01 K/cumm [facility] Blood 12/18/2021 12:5 5 PM IMPACT HAMMER OPERATOR 12/18/2021 3:11 PM IMPACT HAMMER OPERATOR us Paulina Jones MD LAB BLOOD ORDERABLE S Final Result [facility] [address] [facility]. [place] [address] documented in this encounter Visit Diagnoses Diagnosis Crohn's disease of small and large intestines with complication (HCC) documented in this encounter Care Teams Telephone Maintenance Mechanic Relationship Specialty Start Date End Date Emmanuel Wesley DO PCP - General Internal Medicine 12/11/21 documented as of this encounter
--- OUTSIDE RECORDS SUMMARY | 2024-11-11 19:12 | XMS_ITS | Encounter Summary ---
Author Organization [facility] Address [address] [place] [address] Phone Care Team Providers Care Firefighting Equipment Specialist Name Role Phone Emmanuel Wesley DO Primary Care Provider +1- [phone] Reason for Visit * Reason Onset Date Comments Follow Up to Zeposia Usage 04/07/2022 Encounter Details Date Type Department Care Team (Late st Contact Info) Description 04/07/2022 Telephone [facility] Gastroenterology [address] 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 Should he be seen or will this take place as a check-in? He is scheduled for a 6 month f/u in August. Please advise documented in this encounter Plan of Treatment Upcoming Encounters Date Type Department Care Team (Late st Contact Info) Description 11/09/2024 Plan of Care Documentation [address] [address] [address] [place] [address] documented as of this encounter Visit Diagnoses Not on filedocumented in this encounter Care Teams Firefighting Equipment Specialist Relationship Specialty Start Date End Date Emmanuel Wesley DO PCP - General Internal Medicine 12/11/21 documented as of this encounter
--- OUTSIDE RECORDS SUMMARY | 2024-11-11 19:12 | XMS_ITS | Encounter Summary ---
Author Organization [facility] [employer] [facility] Address [address] [place] [address] Phone Care Team Providers Care Real Estate Administrative Assistant Name Role Phone Emmanuel Wesley DO Primary Care Provider +1- [phone] Reason for Referral * Cardiology (Routine) - Closed Specialty Diagnoses / Procedures Referred By Med bazan Referred To Contact Diagnoses High risk medication use Bradycardia Procedures Extended/Fdc Holter Patch (>48 hours up to 7 days) Rico Chapman MD Phone: tel: fax: [facility] (All Locations) Referral ID Status Reason Start Date Expiration Date Visits Re quested Visits Authorized [id number] Closed 01/22/2022 02/21/2023 1 1 Encounter Details Date Type Department Care Team (Late st Contact Info) Description 01/22/2022 Orders Only [facility] Cardiology [address] [facility] 8th [place] [address] [place] [address] Rico Chapman MD [address] [facility] [address] [place] [address] High risk medication use (Primary Dx); Bradycardia Social History Tobacco Use Types Packs/Day [...] on file 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 documented in this encounter Plan of Treatment Upcoming Encounters Date Type Department Care Team (Late st Contact Info) Description 11/09/2024 Plan of Care Documentation [address] [place] [address] documented as of this encounter Results * Extended/Fdc Holter Patch (>48 hours up to 7 days) (01/25/2022 3:45 PM CDT) Anatomical Region Laterality Modality Electrocardiogra phy 01/25/2022 3:45 PM CDT Narrative 02/15/2022 11:24 AM CDT Patient name: Ranjit Peralta Date of test: 01/25/2022 Type of Test: LT Holter (48 hrs to 7 days) Hospital #: [id number] ?Location: [facility] : 1980 ??Age: 41 ??Sex: M Ref Physician(s): RICO CHAPMAN MD Interpreted by: Jason Guerrero MD Hook-Up Tech: Mily Manrique Reason for Test: Hook-up Tech: Mily Manrique Monitor Serial#: [id number] Case#: [id number] Diary Instruction: Yes Hook-up Tech Comment: Date Time Hooked-up: 00:00:00 Monitor Returned: 02/16/2022 Recording Started: 02/02/2022 Recording Ended: 02/05/2022 Test Duration (hrs:min): 72 Period Analyzed (hrs:min): 71:57 Quality: STATISTICS: Events: 0 Total QRS: 003879 Vent. Beats: 5 Supravent. Beats: 0 Avg HR: 65 Min HR: 35 at 02/03/2022 05:46:00 Max HR: 126 at 02/03/2022 21:09:00 Tachycardia (>100bpm): 89 episodes 0 min Bradycardia (<59bpm): 545 episodes 0 min Paced Beats: 0% VERTICULAR EVENTS: Isolated: 5 Bi/Trigeminy: 0/0 Couplets: 0 Total Runs: 0 Beats: Longest: 0 beats 0 bpm at Slowest: 0 beats 0 bpm at Fastest: 0 beats 0 bpm at SPRAVENTRICULAR EVENTS: Isolated: 0 Couplets: 0 Total Runs: 0 Beats: Longest: 0 beats 0 bpm at Slowest: 0 beats 0 bpm at Fastest: 0 beats 0 bpm at RR/PAUSES: Min: ?? msec at Max: ?? msec at Total Pauses (>3sec): 0 Longest Pauses: 0 sec at Afib/Aflutter: Afib: 0 episodes 0 min Maximum: 0 bpm Minimum: 0 bpm SCANNING SUMMARY: : *The observed rhythms are sinus bradycardia to sinus tachycardia with 1st degree AVB and sinus arrhythmia. *The Maximum Heart Rate recorded was 126 bpm, :09:21 pm, the Minimum Heart Rate recorded was 35 bpm, :46:36 am and the Average Heart Rate was 65 bpm *There were 5 PVCs with a burden of < 0.01 %. *There were 0 Patient triggered events. INTERPRETATION: : I have reviewed the findings on the individual tracings for the dates noted below and I agree., The full scanned/data report is available in [employer], labeled MONITOR STRIPS PDF . This study was interpreted by Jason Guerrero MD Revised on ??02/16/2022 at 14:28:31 by Jason Guerrero MD I have personally reviewed and interpreted this study. Procedure Note Jason Guerrero Jr., MD PhD - 02/16/2022 Patient name: Ranjit Peralta Date of test: 01/25/2022 Type of Test: LT Holter (48 hrs to 7 days) Hospital #: [id number] Location: [facility] : 1980 Age: 41 Sex: M Ref Physician(s): RICO CHAPMAN MD Interpreted by: Jason Guerrero MD Hook-Up Tech: [employer] Reason for Test: Hook-up Tech: [employer] Monitor Serial#: [id number] Case#: [id number] Diary Instruction: Yes Hook-up Tech Comment: Date Time Hooked-up: 00:00:00 Monitor Returned: 02/16/2022 Recording Started: 02/02/2022 Recording Ended: 02/05/2022 Test Duration (hrs:min): 72 Period Analyzed (hrs:min): 71:57 Quality: STATISTICS: Events: 0 Total QRS: [id number] Vent. Beats: 5 Supravent. Beats: 0 Avg HR: 65 Min HR: 35 at 02/03/2022 05:46:00 Max HR: 126 at 02/03/2022 21:09:00 Tachycardia (>100bpm): 89 episodes 0 min Bradycardia (<59bpm): 545 episodes 0 min Paced Beats: 0% VERTICULAR EVENTS: Isolated: 5 Bi/Trigeminy: 0/0 Couplets: 0 Total Runs: 0 Beats: Longest: 0 beats 0 bpm at Slowest: 0 beats 0 bpm at Fastest: 0 beats 0 bpm at SPRAVENTRICULAR EVENTS: Isolated: 0 Couplets: 0 Total Runs: 0 Beats: Longest: 0 beats 0 bpm at Slowest: 0 beats 0 bpm at Fastest: 0 beats 0 bpm at RR/PAUSES: Min: msec at Max: msec at Total Pauses (>3sec): 0 Longest Pauses: 0 sec at Afib/Aflutter: Afib: 0 episodes 0 min Maximum: 0 bpm Minimum: 0 bpm SCANNING SUMMARY: : *The observed rhythms are sinus bradycardia to sinus tachycardia with 1st degree AVB and sinus arrhythmia. *The Maximum Heart Rate recorded was 126 bpm, :09:21 pm, the Minimum Heart Rate recorded was 35 bpm, :46:36 am and the Average Heart Rate was 65 bpm *There were 5 PVCs with a burden of < 0.01 %. *There were 0 Patient triggered events. INTERPRETATION: : I have reviewed the findings on the individual tracings for the dates noted below and I agree., The full scanned/data report is available in [employer], labeled MONITOR STRIPS PDF . This study was interpreted by Jason Guerrero MD Revised on 02/16/2022 at 14:28:31 by Jason Guerrero MD I have personally reviewed and interpreted this study. us Rico Chapman MD [facility] PROCEDURE S Edited documented in this encounter Visit Diagnoses Diagnosis High risk medication use- Primary Bradycardia Other specified cardiac dysrhythmias High risk medication use Bradycardia Other specified cardiac dysrhythmias documented in this encounter Care Teams Real Estate Administrative Assistant Relationship Specialty Start Date End Date Emmanuel Wesley DO PCP - General Internal Medicine 12/11/21 documented as of this encounter
--- OUTSIDE RECORDS SUMMARY | 2024-11-11 19:12 | XMS_ITS | Encounter Summary ---
Author Organization [facility] [employer] [facility] Address [address] [place] [address] Phone Care Team Providers Care Manager Nursing Name Role Phone Bonnie Wesley DO Primary Care Provider +1- [phone] Reason for Visit * Reason Onset Date Comments New Patient 12/11/2021 Encounter Details Date Type Department Care Team (Late st Contact Info) Description 12/11/2021 Telephone [facility] Cardiology [address] [facility] 8th [place] [address] [place] [address] Mike Chapman MD [address] [facility] [address] [place] [address] New Patient Social History Tobacco Use Types Packs/Day Years [...] on file 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 Requested records from PCP FROZEN DESSERT * Telephone Encounter - Sherrie Mcbride - 12/11/2021 1:12 PM CST What ins do you carry/spec billing? BCBS Diagnosis/Reason for Appointment: BRADYCARIA Best Contact Number for Patient: [phone] Relation: Primary Care Physician: BONNIE WESLEY PCP Ph: Referring Physician: LORNA VELEZ Ref Ph: If Referring MD is not PCP, list specialty: Triage Questions Yes No Who/Where/When/Notes IF PATIENT IS REQUESTING CARDIOLOGY COVID CLINIC (General COVID Clinic phone: [phone]) Have you had COVID-19? [] [x] If yes, did your cardiac symptoms start after infection? [] [] Have you ever been diagnosed with cancer and undergone radiation or chemotherapy treatments? [] [x]If 'Yes', Schedule first available with Cardio-Oncology Have you ever seen a Denture Processor in an office setting? [] [x] If yes, where were you treated? If yes, is this a heart condition you've had since childhood? [] [] IF SCHEDULING PATIENT WITH JACIEL OR VALERIE Have you had a baby in the last year or are you ? [] [] Have you had heart or blood pressure problems during a previous ? [] [] Are you planning on transferring care to a [facility] MD or are you looking for a second opinion on your current diagnosis? [] 2nd Opinion (Appts will be CX if records not received 48hrs prior to appt) []Transferring Care to [facility] Patient History Questions Yes No Where/When/Notes Have you EVER been hospitalized for ANY cardiac issue? [] [x] Have you ever had an EKG? [] [x] Have you ever had a stress test? [] [x] Have you ever had an echo? [] [x] Have you ever worn a heart monitor at home? [] [x] Have you ever had a Cardiac Cath? [] [x] Have you ever had a Cardiac Surgery (including ablations, cardioversions, CABG, etc.)? [] [x] Have you ever had a sleep study? [] [x] Do you have a device? If yes what type? (Pacemaker, Defibrillator, Implanted Loop Recorder) [] [x] If yes, where and when was device put in? Arts Administrator? ([employer], [employer], [employer]) Notes: Appointment Date: 01/19/2022 Type: NEW Provider: REQUESTED DR. CHAPMAN Location: [facility] [x] Confirm appt date, time, provider and location. [x] Advise pt to arrive 15- 20 min early. [x] Advise patient to bring medications/list, photo ID and insurance card [x] Advise of New PatientPacket being mailed to them. [x] Children younger than age 12 will not be permitted except under extraordinary circumstances. Patients with clinical appointments may have 1 support person/caregiver who can participate in exam room questions and care. [x] Patients and visitors are expected to wear a mask upon building entry and while inside the facility. FROZEN DESSERT documented in this encounter Plan of Treatment Upcoming Encounters Date Type Department Care Team (Late st Contact Info) Description 11/09/2024 Plan of Care Documentation [address] [address] [address] [place] [address] documented as of this encounter Visit Diagnoses Not on filedocumented in this encounter Care Teams Manager Nursing Relationship Specialty Start Date End Date Bonnie Wesley DO PCP - General Internal Medicine 12/11/21 documented as of this encounter
--- OUTSIDE RECORDS SUMMARY | 2024-11-11 19:12 | XMS_ITS | Encounter Summary ---
Author Organization [facility] Address [address] [place] [address] Phone Care Team Providers Care Rail Operations Controller Name Role Phone Emmanuel Wesley DO Primary Care Provider +1- [phone] Encounter Details Date Type Department Care Team (Late st Contact Info) Description 02/09/2022 8:00 AM CDT Office Visit [facility] Gastroenterology [address] 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 Gender Identity Not on file Sexual Orientation Not on file documented as of this encounter Last Filed Vital Signs Vital Sign Reading Time Taken Comments Blood Pressure 133/91 02/09/2022 8:19 AM CDT Pulse 75 02/09/2022 8:19 AM CDT Temperature 35.7 ??C (96.3 ??F) 02/09/2022 8:19 AM CD T Respiratory Rate - - Oxygen Saturation - - Inhaled Oxygen Concentration - - Weight 111.9 kg (246 lb 9.6 oz) 02/09/2022 8:19 AM CDT Height 190.5 cm (6' 3 ) 02/09/2022 8:19 AM CDT Body Mass Index 30.82 02/09/2022 8:19 AM CDT documented in this encounter Patient Instructions * Patient Instructions* Zora Shearer - 02/09/2022 8:00 AM CDT ??? Return office visit is needed in 6 months ??? We will submit the orders to switch your therapies to Zeposia. Continue your current therapies until we can investigate if Zeposia will be approved by your insurance or not. Dr. Jones's office will update you on this process. ??? Additional plans moving forward will be based on the approval of Zeposia. documented in this encounter Progress Notes * Izabela Gregory NP - 02/09/2022 8:00 AM CDT REASON FOR VISIT: Follow-up for treatment refractory Crohn's disease CURRENT MEDICATIONS: Entyvio monthly, Jeronimo enema, Uceris foam nightly, vitamin- D, Xanax 0.25 mg daily , folic acid PROBLEM LIST: 1.?Ileocolonic and perianal Crohn's disease, diagnosed in 2006, with a presentation of hematochezia and a perianal fistula with abscess. ??The patient was previously treated with Humira, Cimzia, Remicade, methotrexate, Entyvio in combination with methotrexate,Stelara, Xeljanz, Otezla x2 months, and retrial of Entyvio monthly. In 2018 given he had a very tight IC valve and was having intermittent obstructions, he was offered a referral to a surgeon but in speaking to the surgeon the decision was made to hold off until we found a different medicine. We ended up deciding to shorten his frequency of Entyvio to every 6 weeks, but unfortunately, we could not get it approved, and ultimately, the patient underwent a repeat colonoscopy in July 2019 that again demonstrated active disease as well as proctitis. ??He was then started on Stelara, and Entyvio was stopped. ??The patient received his first induction dose of Stelara in August 2019, but unfortunately, he was still symptomatic, and his MRE demonstrated active disease, and ultimately, he was seen in April 2020, at which timewe decided to reinitiate Entyvio, as that is what he felt best on, and he certainly had the best colonoscopy so we put that in combination with Xeljanz so that we could then see if that combination worked for him. ??The patient initially self-discontinued Xeljanz due to perceived side-effects of SOB but he has been taking it consistently since. Unfortunately his colonoscopy from 08/07/2021 showedsevere proctitis, mild ileitis and persistent fairly tight ileoecal stricture that was dilated to 13.5 mm. The patient was given a trial of Otezla for approximately 2 months with slight benefit though not consistent. Offered Uceris foam and hydrocortisone enemas for persistent proctitis 2.?History of??significant??gout flares while on thiopurines??leading to their discontinuation.?This could not be prevented with allopurinol. Requiring steroid tapers, indomethacin, and colchicine. ??Patient had difficulty with colchicine causing diarrhea 3.?Positive JERALD virus, titer of 2.15. 4. Difficulty tolerating methotrexate due to malaise and depressive symptoms HISTORY OF PRESENT ILLNESS: Ranjit Peralta is a gabby 41 y.o. male with past medical history of refractory ileocolonic Crohn's disease who presents today for follow-up. The patient was last seen via telemedicine on 12/09/2021 at which time the patient indicated that beyond his distal symptoms he felt well. Unfortunately had a tendency to have rectal pressure and urgency frequently and with acute onset. Sitz baths with Epson salts were helpful. Unfortunately had nobenefit from hydrocortisone suppositories. He indicated that the Uceris foam was helpful. He had been able to try Otezla for 2 months and a tolerated assist with some improvement but this varied day by day. He indicated that his watch had suggested his blood pressure dropped and 40 is a couple times. As the patient had failed all treatments, he was offered a refill of his Uceris foam, low-dose Flagyl, and referred to cardiology for workup prior to possible use of the Zeposia. The patient was encouraged to get vaccinated for Shingrix and a booster of COVID. He was advised he could tryany diet he liked including supplements such as TUDCA or CBD. The patient presents today indicating that he returned this Holter monitor on Tuesday. He was recently seen by his eye doctor for myopia and was told everything was stable. He denies any history of uveitis or retinal edema. Currently he is not experiencing a lot of benefit from the Uceris foam or hyd rocortisone enemas. His primary symptoms are urgency and rectal pressure. Typically he will have 3-4 bathroom trips but may still need pass a decent amount of stool 1 to 2 times a day, often he just passes mucus, gas, or small volume stool. He has tried using Imodium and feels that this is somewhathelpful for the fecal urgency but he feels like within a day or 2 he will have a ???blowout?? . He has not been on Lomotil or Levsin. 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 He states other than the symptoms he is not doing poorly. He thinks his Xanax may help slightly for urgency going in to meeting. REVIEW OF SYSTEMS: As per HPI, all other systems negative PHYSICAL EXAM: BP 133/91 (BP Location: Left arm, Patient Position: Sitting) Pulse 75 Temp (!) 35.7 ??C (96.3 ??F) (Temporal) Ht 190.5 cm (6' 3 ) Wt 111.9 kg (246 lb 9.6 oz) BMI 30.82 kg/m?? General: Well-appearing male in no acute cardiopulmonary distress HEENT: Sclerae are not inflamed or icteric, nose mouth obscured by mask Pulmonary: Normal breath sounds Abdomen: Nondistended, soft Skin: No worrisome lesions or rashes on exposed skin Neurological: Alert and oriented with no focal deficits OBJECTIVE DATA: Recents labs, imaging studies, and endoscopic procedures were reviewed for trends, and aberrations on the day of the patient's visit. ASSESSMENT AND PLAN: Ranjit Peralta is a gabby 41 y.o. male with treatment refractory perianal Crohn's disease who presents today for follow-up 1. Crohn's disease. Unfortunately the patient has failed all medications including Humira, Cimzia, Remicade, Entyvio, Stelara, Xeljanz, Otezla, methotrexate, thiopurines, and topical steroids. On hismost recent colonoscopy he had severe proctitis. As we have exhausted all options, we would like to advocate for Zeposia once he is cleared by Cardiology. He has not had any issues with his eyes thatwould put him at risk for trouble with Zeposia. As he failed to respond to Stelara and Xeljanz, we are very doubtful that he will respond to the Skyrizi or Rinvoq when these become available for Crohn's disease. While we are awaiting a decision, he is welcome to try TUDCA and the IBD-AID diet. He may benefit from infrequent use of Lomotil but we worry that he might have trouble with obstructions.He can also consider Levsin for cramping or topical lidocaine. 2. Bradycardia. Patient's Holter monitor should be resulted soon. He is completely asymptomatic andthis was only detected by his watch so may not be accurate 3. Healthcare maintenance. The patient is encouraged to get vaccinated for Shingrix and COVID. He should continue to follow closely with his care team The patient was given ample opportunity to ask questions and have them answered and was seen by both Dr. Jones and myself. We would like him to return in 3- 6 months. This note was created in part with the assistance of [email or web address] voice recognition software. Science Education Professor variances may occur. Cosigned by Paulina Jones MD at 02/10/2022 7:41 AM CDT Associated attestation - Paulina Jones MD - 02/10/2022 7:41 AM CDT I have seen and examined the patient. I agree with the findings and plan of care as documented in the resident/fellow's note. My total encounter time on 02/09/2022 was 30 minutes which was spent in the activities documented in the note. This includes time spent prior to the visit and after the visitin direct care of the patient. This time does not include time spent in any separately reportable services. documented in this encounter Plan of Treatment Upcoming Encounters Date Type Department Care Team (Late st Contact Info) Description 11/09/2024 Plan of Care Documentation [address] [address] [place] [address] documented as of this encounter Visit Diagnoses Diagnosis Low vitamin D level- Primary Crohn's disease of both small and large intestine with intestinal obstruction (HCC) Proctitis Other specified disorder of rectum and anus documented in this encounter Care Teams Rail Operations Controller Relationship Specialty Start Date End Date Emmanuel Wesley DO PCP - General Internal Medicine 12/11/21 documented as of this encounter
--- OUTSIDE RECORDS SUMMARY | 2024-11-11 19:12 | XMS_ITS | Encounter Summary ---
Author Organization [facility] [employer] [facility] Address [address] [place] [address] Phone Care Team Providers Care Counter Person Name Role Phone Kirstie Jarrell MD Primary Care Provider + Reason for Visit * Episode Based Medications (Routine) - Closed Specialty Diagnoses / Procedures Referred By Med bazan Referred To Contact Diagnoses Crohn's disease of small and large intestines with complication (HCC) Procedures [place] INJECTION, VEDOLIZUMAB Paulina Jones MD [address] [place] [address] Phone: tel: fax: [facility] Allergy and Immunology [address] [place] [address] [address] [place] [address] Phone: tel: fax: Referral ID Status Reason Start Date Expiration Date Visits Re quested Visits Authorized [id number] Closed 11/03/2020 11/03/2022 99 99 Encounter Details Date Type Department Care Team (Late st Contact Info) Description 11/20/2021 12:30 PM BOOK RETAILER Infusion [facility] Infusion Therapy [address] [place] [address] Office [address] [place] [address] Crohn's disease of small and [...] on file 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 PIV placed and labs obtained before infusion initiated. Pt tolerated infusion well, ambulatory upon discharge. RETAILER documented in this encounter Miscellaneous Notes * Addendum Note - Lexis Diamond CLT - 11/20/2021 12:30 PM CSTAddended by: LEXIS DIAMOND on: 11/20/2021 03:58 PM Modules accepted: Orders RETAILER documented in this encounter Plan of Treatment Upcoming Encounters Date Type Department Care Team (Late st Contact Info) Description 11/09/2024 Plan of Care Documentation [address] [address] [address] [place] [address] documented as of this encounter Results * (ABNORMAL) Lipid panel (11/20/2021 3:58 PM BOOK RETAILER) [facility] Signature Cholesterol 216(H) 30 - 199 mg/dL [facility] Comment: [...] Data was last revised on 2018. Triglycerides 190(H) <=149 mg/dL [facility] Comment: Interpretive Data [...] on 2018. HDL 34(L) >=40 mg/dL [facility] Comment: Interpretive Data [...] was last revised on 2018. LDL, calculated 144(H) <=129 mg/dL [facility] Comment: Interpretive Data [...] was last revised on 2018. Non-HDL Cholesterol 182 mg/dL [facility] Comment: Interpretive Data Ages [...] revised on 2018. Chol/HDL ratio 6 [facility] Blood 11/20/2021 3:58 PM BOOK RETAILER 11/20/2021 4:31 PM BOOK RETAILER Paulina Jones MD LAB BLOOD ORDERABLE S Final Result [facility] [address] [facility]. [place] [address] documented in this encounter Visit Diagnoses Diagnosis Crohn's disease of small and large intestines with complication (HCC)- Primary documented in this encounter Administered Medications Inactive Administered Medications - up to 3 most recent administrations Medication Order MAR Action Action Date Dose Rate Site sodium chloride 0.9% flush 10 mL 10 mL, intravenous, As needed, line care, Starting on Tue11/20/21 at 1242, Flush pre and post IV catheter use.Indications:Crohn's disease of small and large intestines with complication (HCC) Given 11/20/2021 1:00 PM BOOK RETAILER 10 mL vedolizumab (ENTYVIO) 300 mg in sodium chloride 0.9% 250 mL IVPB 300 mg, intravenous, at 510 mL/hr, Administer over 30 Minutes, Once, On Tue11/20/21 at 1345, For 1 doseIndications:Crohn's disease of small and large intestines with complication (HCC) New Bag 11/20/2021 1:09 PM BOOK RETAILER 300 mg 510 mL/hr documented in this encounter Orders Nursing Count Last Ordered Date First Orde red Date ONCBCN PROVIDER COMMUNICATION 1 1 2 VITAL SIGNS PRE-INFUSION 1 11/20/2021 Appointment Requests Count Last Ordered Date Fi rst Ordered Date INFUSION APPT REQUEST 60 MIN 2 01/14/2022 11/20/2021 documented in this encounter Care Teams Counter Person Relationship Specialty Start Date End Date Kirstie Jarrell MD [address] [place] [address] DR WITT [address] [place] [id number] PCP - General 08/07/21 12/10/21 documented as of this encounter
--- OUTSIDE RECORDS SUMMARY | 2024-11-11 19:12 | XMS_ITS | Encounter Summary ---
Author Organization 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 Gender Identity Not on file Sexual Orientation Not on file documented as of this encounter Plan of Treatment Upcoming Encounters Date Type Department Care Team (Late st Contact Info) Description 11/09/2024 Plan of Care Documentation [address] [place] [address] documented as of this encounter Procedures Procedure Name Priority Date/Time Associated Diagnosis Comments DIFFERENTIAL AUTO Routine 02/11/2022 12: 01 PM CDT Crohn's disease of small and large intestines with complication (CMS/HCC) (HCC) CBC WITH AUTO DIFFERENTIAL Routine 02/11/2022 12:01 PM CDT Crohn's disease of small and large intestines with complication (CMS/HCC) (HCC) HEPATIC FUNCTION PANEL Routine 02/11/2022 12:01 PM CDT Crohn's disease of small and large intestines with complication (CMS/HCC) (HCC) LIPID PANEL Routine 02/11/2022 12:01 PM CDT Crohn's disease of small and large intestines with complication (CMS/HCC) (HCC) documented in this encounter Results * Differential, auto (02/11/2022 12:01 PM CDT) Neutrophil abs 5.5 1.7 - 6.5 K/cumm [facility] Imm gran abs 0.0 0.0 - 0.1 K/cumm [facility] Lymphocyte abs 1.5 0.8 - 3.3 K/cumm [facility] Monocyte abs 0.6 0.2 - 0.8 K/cumm [facility] Eosinophil abs 0.2 0.0 - 0.5 K/cumm [facility] Basophil abs 0.0 0.0 - 0.1 K/cumm [facility] Neutrophil pct 70.3 % [facility] Comment: Interpretive Data Percent [...] was last revised on 2018. Lymphocyte pct 19.6 % [facility] Comment: Interpretive Data Percent cell count reference ranges are not reported, since discordance with absolute values may lead to misinterpretation of CBC data. Current Interpretive Data was last revised on 2018. Monocyte pct 7.2 % [facility] Comment: Interpretive Data Percent cell count reference ranges are not reported, since discordance with absolute values may lead to misinterpretation of CBC data. Current Interpretive Data was last revised on 2018. Eosinophil pct 2.0 % [facility] Comment: Interpretive Data Percent [...] Data was last revised on 2018. Blood 02/11/2022 12:0 1 PM CDT 02/11/2022 2:22 PM CDT us Paulina Jones MD LAB BLOOD ORDERABLE S Final Result [facility] [address] [facility]. Department [place] [address] * (ABNORMAL) Lipid panel (02/11/2022 12:01 PM CDT) Cholesterol 193 30 - 199 mg/dL ALDO [...] Data was last revised on 2018. Triglycerides 250(H) <=149 mg/dL [facility] Comment: Interpretive Data [...] Data was last revised on 2018. HDL 30(L) >=40 mg/dL [facility] Comment: Interpretive Data [...] was last revised on 2018. LDL, calculated 113 <=129 mg/dL [facility] Comment: Interpretive Data [...] was last revised on 2018. Non-HDL Cholesterol 163 mg/dL [facility] Comment: Interpretive Data Ages [...] 2018. Chol/HDL ratio 6 [facility] Blood 02/11/2022 12:0 1 PM CDT 02/11/2022 2:22 PM CDT us Paulina Jones MD LAB BLOOD ORDERABLE S Final Result [facility] [address] [facility]. Department [place] [address] * Hepatic function panel (02/11/2022 12:01 PM CDT) Bilirubin, total 0.5 0.1 - 1.2 mg/dL [facility] Bilirubin, direct <0.2 0.1 - 0.3 mg/dL [facility] Comment:Hemolyzed; result un reliable. Protein, pl 7.3 6.5 - 8.5 g/dL [facility] Albumin 4.2 3.5 - 5.0 g/dL [facility] Alk phos 57 40 - 130 Units/L [facility] ALT 25 7 - 55 Units/L [facility] AST 23 10 - 50 Units/L [facility] Comment:Hemolyzed; result ma y be falsely elevated. Blood 02/11/2022 12:0 1 PM CDT 02/11/2022 2:22 PM CDT us Paulina Jones MD LAB BLOOD ORDERABLE S Final Result [facility] [address] [facility]. [place] [address] * (ABNORMAL) CBC with auto differential (02/11/2022 12:01 PM CDT) [facility] WBC 7.9 3.8 - 9.9 K/cumm [facility] Hgb 12.9(L) 13.0 - 17.5 g/dL [facility] Hct 39.6 38.9 - 50.3 % [facility] Plt 321 150 - 400 K/cumm [facility] MPV 9.8 9.1 - 12.3 fL [facility] RBC 4.44 4.30 - 5.80 M/cumm [facility] MCV 89.2 81.3 - 96.4 fL [facility] MCH 29.1 27.1 - 33.3 pg [facility] MCHC 32.6 32.3 - 35.7 g/dL [facility] RDW CV 13.2 11.1 - 14.9 % [facility] RDW SD 43.2 35.7 - 48.1 fL [facility] NRBC abs 0.00 0.00 - 0.01 K/cumm [facility] Blood 02/11/2022 12:0 1 PM CDT 02/11/2022 2:22 PM CDT us Paulina Jones MD LAB BLOOD ORDERABLE S Final Result [facility] [address] [facility] Department [place] [address] documented in this encounter Visit Diagnoses Diagnosis Crohn's disease of small and large intestines with complication (HCC) documented in this encounter Care Teams Culturist Relationship Specialty Start Date End Date Emmanuel Wesley DO PCP - General Internal Medicine 12/11/21 documented as of this encounter
--- OUTSIDE RECORDS SUMMARY | 2024-11-11 19:12 | XMS_ITS | Encounter Summary ---
Author Organization [facility] [employer] [facility] Address [address] [place] [address] Phone Care Team Providers Care Electronic Prepress Operator Name Role Phone Emmanuel Wesley DO Primary Care Provider +1- [phone] Encounter Details Date Type Department Care Team (Late st Contact Info) Description 02/16/[address] 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 Gender Identity Not on file Sexual Orientation Not on file documented as of this encounter Miscellaneous Notes * Telephone Encounter - Cecilia Smith RN - 02/16/2022 1:46 PM CDT amb referral placed for sleep study documented in this encounter Plan of Treatment Upcoming Encounters Date Type Department Care Team (Late st Contact Info) Description 11/09/2024 Plan of Care Documentation [address] [address] [address] [place] [id number] documented as of this encounter Visit Diagnoses Diagnosis Bradycardia- Primary Other specified cardiac dysrhythmias documented in this encounter Care Teams Electronic Prepress Operator Relationship Specialty Start Date End Date Emmanuel Wesley DO PCP - General Internal Medicine 12/11/21 documented as of this encounter
--- OUTSIDE RECORDS SUMMARY | 2024-11-11 19:12 | XMS_ITS | Encounter Summary ---
Author Organization [facility] [employer] [facility] Address [address] [place] [address] Phone Care Team Providers Care Spot Facer Name Role Phone Emmanuel Wesley DO Primary Care Provider +1- [phone] Reason for Visit * Episode Based Medications (Routine) - Closed Specialty Diagnoses / Procedures Referred By Med bazan Referred To Contact Diagnoses Crohn's disease of small and large intestines with complication (HCC) Procedures CT INJECTION, VEDOLIZUMAB Paulina Jones MD [address] [place] [address] Phone: tel: fax: [facility] Allergy and Immunology [address] [place] [address] Office [address] [place] [address] Phone: tel: fax: Referral ID Status Reason Start Date Expiration Date Visits Re quested Visits Authorized [id number] Closed 11/03/2020 11/03/2022 99 99 Encounter Details Date Type Department Care Team (Late st Contact Info) Description 02/11/2022 12:30 PM CDT Infusion [facility] Infusion Therapy [address] [place] [address] Office [address] [place] [address] Crohn's disease of small and [...] on file 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 PIV placed and labs obtained before infusion initiated. Pt tolerated infusion well, ambulatory upon discharge. documented in this encounter Miscellaneous Notes * Addendum Note - Tommy Esparza CLT - 02/11/2022 12:30 PM CDTAddended by: TOMMY ESPARZA on: 02/11/2022 02:06 PM Modules accepted: Orders documented in this encounter Plan of Treatment Upcoming Encounters Date Type Department Care Team (Late st Contact Info) Description 11/09/2024 Plan of Care Documentation [facility] [address] [address] [address] [place] [address] documented as of this encounter Results * (ABNORMAL) Lipid panel (02/11/2022 12:01 PM CDT) [facility] Signature Cholesterol 193 30 - 199 mg/dL ALDO [...] on 2018. HDL 30(L) >=40 mg/dL [facility] Comment: Interpretive Data Ages < or = [...] on 2018. Non-HDL Cholesterol 163 mg/dL [facility] Comment: Interpretive Data Ages < or = [...] 2018. Chol/HDL ratio 6 [facility] Blood 02/11/2022 12:0 1 PM CDT 02/11/2022 2:22 PM CDT us Paulina Jones MD LAB BLOOD ORDERABLE S Final Result [facility] [address] [facility]. Department of [email or web address] [address] documented in this encounter Visit Diagnoses Diagnosis Crohn's disease of small and large intestines with complication (HCC)- Primary documented in this encounter Administered Medications Inactive Administered Medications - up to 3 most recent administrations Medication Order MAR Action Action Date Dose Rate Site sodium chloride 0.9% flush 10 mL 10 mL, intravenous, As needed, line care, Starting on Ashlyn 02/11/22 at 1241, Flush pre and post IV catheter use.Indications:Crohn's disease of small and large intestines with complication (HCC) Given 02/11/2022 12:50 PM CDT 10 mL vedolizumab (ENTYVIO) 300 mg in sodium chloride 0.9% 250 mL IVPB 300 mg, intravenous, at 510 mL/hr, Administer over 30 Minutes, Once, On Ashlyn 02/11/22 at 1345, For 1 doseIndications:Crohn's disease of small and large intestines with complication (HCC) New Bag 02/11/2022 12:55 PM CDT 300 mg 510 mL/hr documented in this encounter Orders Nursing Count Last Ordered Date First Orde red Date VITAL SIGNS PRE-INFUSION 1 02/11/2022 documented in this encounter Care Teams Spot Facer Relationship Specialty Start Date End Date Emmanuel Wesley DO PCP - General Internal Medicine 12/11/21 documented as of this encounter
--- OUTSIDE RECORDS SUMMARY | 2024-11-11 19:12 | XMS_ITS | Encounter Summary ---
Author Organization [facility] [employer] [facility] Address [address] [place] [address] Phone Care Team Providers Care Stonework Tracer Name Role Phone Kirstie Jarrell MD Primary Care Provider + Reason for Visit * Episode Based Medications (Routine) - Closed Specialty Diagnoses / Procedures Referred By Med bazan Referred To Contact Diagnoses Crohn's disease of small and large intestines with complication (HCC) Procedures [place] INJECTION, VEDOLIZUMAB Paulina Jones MD [address] [place] [address] Phone: tel: fax: [facility] Allergy and Immunology [address] [place] [address] [address] [place] [address] Phone: tel: fax: Referral ID Status Reason Start Date Expiration Date Visits Re quested Visits Authorized [id number] Closed 11/03/2020 11/03/2022 99 99 Encounter Details Date Type Department Care Team (Late st Contact Info) Description 10/23/2021 12:30 PM CHEMICALS FERMENTATION OPERATOR Infusion [facility] Infusion Therapy [address] [place] [address] Office [address] [place] [address] Crohn's disease of small and [...] on file 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:34 AM CHEMICALS FERMENTATION OPERATOR Gender Identity Not on file Sexual Orientation Not on file documented as of this encounter Last Filed Vital Signs Vital Sign Reading Time Taken Comments Blood Pressure 149/96 10/23/2021 1:30 PM CHEMICALS FERMENTATION OPERATOR Pulse 53 10/23/2021 1:30 PM CHEMICALS FERMENTATION OPERATOR Temperature 37 ??C (98.6 ??F) 10/23/2021 12:50 PM CHEMICALS FERMENTATION OPERATOR Respiratory Rate - - Oxygen Saturation - - Inhaled Oxygen Concentration - - Weight - - Height - - Body Mass Index - - documented in this encounter Progress Notes * Allyn Patrick, RN - 10/23/2021 12:30 PM CST Pt here today for entyvio infusion. Pt denies any recent fevers or feeling ill. PIV started and CBCand HFP drawn with PIV start. VSS. Infusion started. Pt instructed to call for help whenever needed. Infusion complete and pt tolerated well. ICALS FERMENTATION OPERATOR documented in this encounter Miscellaneous Notes * Addendum Note - Angel oByd - 10/23/2021 12:30 PM CSTAddended by: ANGEL BOYD on: 10/23/2021 03:14 PM Modules accepted: Orders ICALS FERMENTATION OPERATOR documented in this encounter Plan of Treatment Upcoming Encounters Date Type Department Care Team (Late st Contact Info) Description 11/09/2024 Plan of Care Documentation [address] [address] [address] [place] [address] documented as of this encounter Results * (ABNORMAL) Lipid panel (10/23/2021 3:15 PM CHEMICALS FERMENTATION OPERATOR) [facility] Cholesterol 223(H) 30 - 199 mg/dL ALDO [...] 2018. Chol/HDL ratio 6 [facility] Blood 10/23/2021 3:15 PM CHEMICALS FERMENTATION OPERATOR 10/23/2021 3:57 PM CHEMICALS FERMENTATION OPERATOR us Paulina Jones MD LAB BLOOD ORDERABLE S Final Result [facility] [address] [facility]. Department of [place] [address] documented in this encounter Visit Diagnoses Diagnosis Crohn's disease of small and large intestines with complication (HCC)- Primary documented in this encounter Administered Medications Inactive Administered Medications - up to 3 most recent administrations Medication Order MAR Action Action Date Dose Rate Site sodium chloride 0.9% flush 10 mL 10 mL, intravenous, As needed, line care, Starting on Tue10/23/21 at 1240, Flush pre and post IV catheter use.Indications:Crohn's disease of small and large intestines with complication (HCC) Given 10/23/2021 12:45 PM CHEMICALS FERMENTATION OPERATOR 10 mL vedolizumab (ENTYVIO) 300 mg in sodium chloride 0.9% 250 mL IVPB 300 mg, intravenous, at 510 mL/hr, Administer over 30 Minutes, Once, On Tue10/23/21 at 1345, For 1 doseIndications:Crohn's disease of small and large intestines with complication (HCC) New Bag 10/23/2021 12:55 PM CHEMICALS FERMENTATION OPERATOR 300 mg 510 mL/hr documented in this encounter Orders Nursing Count Last Ordered Date First Orde red Date ONCBCN PROVIDER COMMUNICATION 1 1 VITAL SIGNS PRE-INFUSION 1 10/23/2021 Appointment Requests Count Last Ordered Date Fi rst Ordered Date INFUSION APPT REQUEST 60 MIN 2 12/18/2021 10/23/2021 documented in this encounter Care Teams Stonework Tracer Relationship Specialty Start Date End Date Kirstie Jarrell MD [address] [place] [address] [address] [place] [address] PCP - General 08/07/21 12/10/21 documented as of this encounter
--- OUTSIDE RECORDS SUMMARY | 2024-11-11 19:12 | XMS_ITS | Encounter Summary ---
Author Organization [facility] [employer] [facility] Address [address] [place] [address] Phone Care Team Providers Care Family Living Educator Name Role Phone Emmanuel Wesley DO Primary Care Provider +1- [phone] Reason for Visit * Episode Based Medications (Routine) - Closed Specialty Diagnoses / Procedures Referred By Med bazan Referred To Contact Diagnoses Crohn's disease of small and large intestines with complication (HCC) Paulina Jones MD [address] [place] [address] Phone: tel: fax: [facility] Infusion Therapy [address] [place] [address] Office [address] [place] [address] Phone: tel: Referral ID Status Reason Start Date Expiration Date Visits Re quested Visits Authorized [id number] Closed 10/28/2020 11/03/2022 10 10 Encounter Details Date Type Department Care Team (Late st Contact Info) Description 03/12/2022 12:30 PM CDT Infusion [facility]fusion Therapy [address] [place] [address] Office [address] [place] [address] Crohn's disease of small and [...] on file 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 PIV placed and infusion initiated. Pt tolerated infusion well, ambulatory upon discharge. documented in this encounter Miscellaneous Notes * Addendum Note - Tonie Caro - 03/12/2022 12:30 PM CDTAddended by: TONIE CARO on: 03/12/2022 02:45 PM Modules accepted: Orders documented in this encounter Plan of Treatment Upcoming Encounters Date Type Department Care Team (Late st Contact Info) Description 11/09/2024 Plan of Care Documentation [facility] - [address] [place] [address] documented as of this encounter Visit Diagnoses Diagnosis Crohn's disease of small and large intestines with complication (HCC)- Primary documented in this encounter Administered Medications Inactive Administered Medications - up to 3 most recent administrations Medication Order MAR Action Action Date Dose Rate Site sodium chloride 0.9% flush 10 mL 10 mL, intravenous, As needed, line care, Starting on Tue03/12/22 at 1243, Flush pre and post IV catheter use.Indications:Crohn's disease of small and large intestines with complication (HCC) Given 03/12/2022 12:55 PM CDT 10 mL vedolizumab (ENTYVIO) 300 mg in sodium chloride 0.9% 250 mL IVPB 300 mg, intravenous, at 510 mL/hr, Administer over 30 Minutes, Once, On Tue03/12/22 at 1345, For 1 doseIndications:Crohn's disease of small and large intestines with complication (HCC) New Bag 03/12/2022 1:01 PM CDT 300 mg 510 mL/hr documented in this encounter Orders Nursing Count Last Ordered Date First Orde red Date VITAL SIGNS PRE-INFUSION 1 03/12/2022 Appointment Requests Count Last Ordered Date Fi rst Ordered Date INFUSION APPT REQUEST 60 MIN 2 05/06/2022 03/12/2022 documented in this encounter Care Teams Family Living Educator Relationship Specialty Start Date End Date Emmanuel Wesley DO PCP - General Internal Medicine 12/11/21 documented as of this encounter
--- OUTSIDE RECORDS SUMMARY | 2024-11-11 19:12 | XMS_ITS | Encounter Summary ---
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 JonesPaulina aguirre MD Kittstein, Lori A. Actually, I think in care everywhere I see a land surveyor assistant? If he has one( or we can refer) , he cansee a land surveyor assistant or his PCP about the elevated lipids ?? Associated Results ??Contains abnormal data??Lipid panel RN DANCER documented in this encounter Plan of Treatment Upcoming Encounters Date Type Department Care Team (Late st Contact Info) Description 11/09/2024 Plan of Care Documentation [address] [place] [address] documented as of this encounter Visit Diagnoses Not on filedocumented in this encounter Care Teams Speech Clinician Relationship Specialty Start Date End Date Kirstie Jarrell MD [address] [place] [address] PCP - General 08/07/21 12/10/21 documented as of this encounter
--- OUTSIDE RECORDS SUMMARY | 2024-11-11 19:12 | XMS_ITS | Encounter Summary ---
Author Organization [facility] [employer] [facility] Address [address] [place] [address] Phone Care Team Providers Care Customer Account Technician Name Role Phone Emmanuel Wesley DO Primary Care Provider [phone]- [phone] Reason for Visit * Cardiology (Routine) - Closed Specialty Diagnoses / Procedures Referred By Med bazan Referred To Contact Diagnoses High risk medication use Bradycardia Procedures Extended/Long Term Holter Patch (>48 hours up to 7 days) Rico Chapman MD Phone: tel: fax: [facility] (All Locations) Referral ID Status Reason Start Date Expiration Date Visits Re quested Visits Authorized [id number] Closed 01/22/2022 02/21/2023 1 1 Encounter Details Date Type Department Care Team (Latest Contact Info) Description 01/25/2022 3:45 PM CDT Ancillary Procedure [facility] Cardiology [address] [place] [address] [place] [address] High risk medication use; Bradycardia Social History Tobacco Use Types Packs/Day [...] file 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 I do think sleep eval if he has not had one is reasonable. Let's see results of sleep study before any other recs. documented in this encounter Plan of Treatment Upcoming Encounters Date Type Department Care Team (Late st Contact Info) Description 11/09/2024 Plan of Care Documentation [facility] - [address] [address] [address] [place] [address] documented as of this encounter Procedures Procedure Name Priority Date/Time Associated Diagnosis Comments EXTENDED/SNF HOLTER PATCH (>48 HOURS UP TO 7 DAYS) Routine 01/25/2022 3:45 PM CDT High risk medication use Bradycardia documented in this encounter Results * Extended/Long Term Holter Patch (>48 hours up to 7 days) (01/25/2022 3:45 PM CDT) Anatomical Region Laterality Modality Electrocardiogra phy 01/25/2022 3:45 PM CDT Narrative 02/15/2022 11:24 AM CDT Patient name: Ranjit Peralta Date of test: 01/25/2022 Type of Test: LT Holter (48 hrs to 7 days) Hospital #: [id number] ?Location: [facility] Heart and Vascular : 1980 ??Age: 41 ??Sex: M Ref Physician(s): RICO CHAPMAN MD Interpreted by: Jason Guerrero MD Hook-Up Tech: Mily Matty Reason for Test: Hook-up Tech: Mily Manrique Monitor Serial#: [id number] Case#: [id number] Diary Instruction: Yes Hook-up Tech Comment: Date Time Hooked-up: 00:00:00 Monitor Returned: 02/16/2022 Recording Started: 02/02/2022 Recording Ended: 02/05/2022 Test Duration (hrs:min): 72 Period Analyzed (hrs:min): 71:57 Quality: STATISTICS: Events: 0 Total QRS: 887731 Vent. Beats: 5 Supravent. Beats: 0 Avg [...] The full scanned/data report is available in [employer], labeled MONITOR STRIPS PDF . This study was interpreted by Jason Guerrero MD Revised on ??02/16/2022 at 14:28:31 by Jason Guerrero MD I have personally reviewed and interpreted this study. Procedure Note Jason Guerrero Jr., MD PhD - 02/16/2022 Patient name: Ranjit Peralta Date of test: 01/25/2022 Type of Test: LT Holter (48 hrs to 7 days) [facility] #: [id number] Location: [facility] Heart and Vascular : 1980 Age: 41 Sex: M Ref Physician(s): RICO CHAPMAN MD Interpreted by: Jason Guerrero MD Hook-Up Tech: [employer] Reason for Test: Hook-up Tech: [employer] Monitor Serial#: [id number] Case#: [id number] Diary Instruction: Yes Hook-up Tech Comment: Date Time Hooked-up: 00:00:00 Monitor Returned: 02/16/2022 Recording Started: 02/02/2022 Recording Ended: 02/05/2022 Test Duration (hrs:min): 72 Period Analyzed (hrs:min): 71:57 Quality: STATISTICS: Events: 0 Total QRS: 525139 Vent. Beats: 5 Supravent. Beats: 0 Avg [...] Maximum Heart Rate recorded was 126 bpm, Day :09:21 pm, the Minimum Heart Rate recorded was 35 bpm, Day :46:36 am and the Average Heart Rate was 65 bpm *There were 5 PVCs with a burden of < 0.01 %. *There were 0 Patient triggered events. INTERPRETATION: : I have reviewed the findings on the individual tracings for the dates noted below and I agree., The full scanned/data report is available in [employer], labeled MONITOR STRIPS PDF . This study was interpreted by Jason Guerrero MD Revised on 02/16/2022 at 14:28:31 by Jason Guerrero MD I have personally reviewed and interpreted this study. us Rico Chapman MD [facility] PROCEDURE S Edited documented in this encounter Visit Diagnoses Diagnosis High risk medication use Bradycardia Other specified cardiac dysrhythmias documented in this encounter Care Teams Customer Account Technician Relationship Specialty Start Date End Date Emmanuel Wesley DO PCP - General Internal Medicine 12/11/21 documented as of this encounter
--- OUTSIDE RECORDS SUMMARY | 2024-11-11 19:12 | XMS_ITS | Encounter Summary ---
Author Organization [facility] [employer] [facility] Address [address] [place] [address] Phone Care Team Providers Care Food Server Name Role Phone Emmanuel Wesley DO Primary Care Provider +1- [phone] Reason for Visit * Episode Based Medications (Routine) - Closed Specialty Diagnoses / Procedures Referred By Med bazan Referred To Contact Diagnoses Crohn's disease of small and large intestines with complication (HCC) Procedures MD INJECTION, VEDOLIZUMAB Paulina Jones MD [address] [place] [address] Phone: tel: fax: [facility] Allergy and Immunology [address] [place] [address] [address] [place] [address] Phone: tel: fax: Referral ID Status Reason Start Date Expiration Date Visits Re quested Visits Authorized [id number] Closed 11/03/2020 11/03/2022 99 99 Encounter Details Date Type Department Care Team (Late st Contact Info) Description 01/14/2022 12:30 PM SENIOR SYSTEMS PROGRAMMER Infusion [facility] Infusion Therapy [address] [place] [address] [address] [place] [address] Crohn's disease of small and [...] file 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:34 AM SENIOR SYSTEMS PROGRAMMER Gender Identity Not on file Sexual Orientation Not on file documented as of this encounter Last Filed Vital Signs Vital Sign Reading Time Taken Comments Blood Pressure 126/74 01/14/2022 1:45 PM SENIOR SYSTEMS PROGRAMMER Pulse 64 01/14/2022 1:45 PM SENIOR SYSTEMS PROGRAMMER Temperature 36.9 ??C (98.4 ??F) 01/14/2022 12:[address] Respiratory Rate - - Oxygen Saturation - - Inhaled Oxygen Concentration - - Weight - - Height - - Body Mass Index - - documented in this encounter Progress Notes * Tammi Camejo RN - 01/14/2022 12:30 PM CST Patient here today for entyvio infusion. Patient denies any active infections or upcoming surgeries. PIV placed, labs obtained and dose infused. Patient tolerated infusion well. OR SYSTEMS PROGRAMMER documented in this encounter Miscellaneous Notes * Addendum Note - Tommy Esparza CLT - 01/14/2022 12:30 PM CSTAddended by: TOMMY ESPARZA on: 01/14/2022 01:57 PM Modules accepted: Orders OR SYSTEMS PROGRAMMER documented in this encounter Plan of Treatment Upcoming Encounters Date Type Department Care Team (Late st Contact Info) Description 11/09/2024 Plan of Care Documentation [address] [address] [address] [place] [address] documented as of this encounter Results * (ABNORMAL) Lipid panel (01/14/2022 1:57 PM SENIOR SYSTEMS PROGRAMMER) [facility] Signature Cholesterol 193 30 - 199 [...] Data was last revised on 2018. Triglycerides 148 <=149 mg/dL [facility] Comment: Interpretive Data [...] was last revised on 2018. LDL, calculated 125 <=129 mg/dL [facility] Comment: Interpretive Data [...] was last revised on 2018. Non-HDL Cholesterol 155 mg/dL [facility] Comment: Interpretive Data Ages [...] revised on 2018. Chol/HDL ratio 5 [facility] Blood 01/14/2022 1:57 PM SENIOR SYSTEMS PROGRAMMER 01/14/2022 2:19 PM SENIOR SYSTEMS PROGRAMMER us Paulina Jones MD LAB BLOOD ORDERABLE S Final Result [facility] [address] [facility] Department [place] [address] documented in this encounter Visit Diagnoses Diagnosis Crohn's disease of small and large intestines with complication (HCC)- Primary documented in this encounter Administered Medications Inactive Administered Medications - up to 3 most recent administrations Medication Order MAR Action Action Date Dose Rate Site sodium chloride 0.9% flush 10 mL 10 mL, intravenous, As needed, line care, Starting on Ashlyn 01/14/22 at 1256, Flush pre and post IV catheter use.Indications:Crohn's disease of small and large intestines with complication (HCC) Given 01/14/2022 1:05 PM SENIOR SYSTEMS PROGRAMMER 10 mL vedolizumab (ENTYVIO) 300 mg in sodium chloride 0.9% 250 mL IVPB 300 mg, intravenous, at 510 mL/hr, Administer over 30 Minutes, Once, On Ashlyn 01/14/22 at 1400, For 1 doseIndications:Crohn's disease of small and large intestines with complication (HCC) New Bag 01/14/2022 1:10 PM SENIOR SYSTEMS PROGRAMMER 300 mg 510 mL/hr documented in this encounter Orders Nursing Count Last Ordered Date First Orde red Date ONCBCN PROVIDER COMMUNICATION 1 1 2 VITAL SIGNS PRE-INFUSION 1 01/14/2022 Appointment Requests Count Last Ordered Date Fi rst Ordered Date INFUSION APPT REQUEST 60 MIN 2 03/12/2022 01/14/2022 documented in this encounter Care Teams Food Server Relationship Specialty Start Date End Date Emmanuel Wesley DO PCP - General Internal Medicine 12/11/21 documented as of this encounter
--- OUTSIDE RECORDS SUMMARY | 2024-11-11 19:12 | XMS_ITS | Encounter Summary ---
Author Organization [facility] Address [address] [place] [address] Phone Care Team Providers Care Cement Worker Name Role Phone Emmanuel Wesley DO Primary Care Provider +1- [phone] Reason for Visit * Reason Onset Date Comments Plan from 12/09/2021 ROV 12/11/2021 Encounter Details Date Type Department Care Team (Late st Contact Info) Description 12/11/2021 Documentation 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 Scripts sent in. Pending cardiology referral for Zeposia. The following will be required prior to starting therapy: - CBC, including lymphocyte count - Transaminase and total bilirubin levels - EKG to determine whether pre-existing conduction abnormalities are present Pt should also complete Shingrix series which appears to have been discussed at his f/u appt. From: Paulina Jones Sent: Thursday, December 09, 2021 12:28 PM To: Izabela Gregory; Penelope Lai Cc: Radha Goodwin For laureen, also see if we can have him see marcell ballard in cardiology for bradycardia Call in uceris foam and zahira foam Starting Flagyl 250 tid (has some) a Once EKG ok, will start zeposi (samples) MINER BLASTING documented in this encounter Plan of Treatment Upcoming Encounters Date Type Department Care Team (Late st Contact Info) Description 11/09/2024 Plan of Care Documentation [address] [address] [address] [place] [address] documented as of this encounter Visit Diagnoses Not on filedocumented in this encounter Care Teams Cement Worker Relationship Specialty Start Date End Date Emmanuel Wesley DO PCP - General Internal Medicine 12/11/21 documented as of this encounter
--- OUTSIDE RECORDS SUMMARY | 2024-11-11 19:12 | XMS_ITS | Encounter Summary ---
Author Organization [facility] Address [address] [place] [address] Phone Care Team Providers Care Hydrogeology Professor Name Role Phone Kirstie Jarrell MD Primary Care Provider + Reason for Referral * Consultation (Routine) - Closed Specialty Diagnoses / Procedures Referred By Med bazan Referred To Contact Cardiology Diagnoses Bradycardia Paulina Jones MD [address] [place] [address] Phone: tel: fax: Rico Chapman MD [address] [facility] [address] [place] [address] Phone: tel: fax: Referral ID Status Reason Start Date Expiration Date V isits Requested Visits Authorized [id number] Closed Specialty Services Required 12/09/2021 01/08/2023 99 99 Question Answer Please select the performing region: [facility] (All Locations) [[id number]] To provider: RICO CHAPMAN [[id number]] # of visits: 1 Comments Evaluate bradycardia NTORY CONTROL COORDINATOR Encounter Details Date Type Department Care Team (Late st Contact Info) Description 12/09/2021 11:15 AM INVENTORY CONTROL COORDINATOR Telemedicine [facility] Gastroenterology [facility] Medical Office Building [address] [place] [address] Paulina Jones MD [address] [place] [address] High risk medications (not anticoagulants) long-term use (Primary Dx); Crohn's disease of both small and large intestine with intestinal obstruction (HCC); Proctitis; Bradycardia Social History Tobacco Use Types Packs/Day [...] on file 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:34 AM INVENTORY CONTROL COORDINATOR Gender Identity Not on file Sexual Orientation Not on file documented as of this encounter Patient Instructions * Patient Instructions* Penelope Lai - 12/09/2021 11:15 AM INVENTORY CONTROL COORDINATOR Schedule Routine Office Visit in 3 months - March 2022 - Radha, please call patient to schedule Safety Labs due with next infusion scheduled on 12/18/21 Uceris Foam and Cortisone Enemas refilsl sent to local pharmacy - continue to take Start Flagyl 250 mg - Take 1 Tablet 3 times daily for 14 days - prescription sent to local pharmacy Continue on Entyvio monthly Continue on steroid taper Consider Zeposia through samples - would like patient to see Cardiology first Submit referral to Cardiology Dr. Philipp Chapman for bradycardia - Penelope will submit - once EKG ok with start Zeposia through samples NTORY CONTROL COORDINATOR NTORY CONTROL COORDINATOR NTORY CONTROL COORDINATOR NTORY CONTROL COORDINATOR NTORY CONTROL COORDINATOR documented in this encounter Ordered Prescriptions Prescription Sig Dispense Quantity Refills Last Filled Start Date End Date metroNIDAZOLE (FLAGYL) 250 mg tabletIndications: Proctitis Take 1 tablet (250 mg total) by mouth 3 (three) times a day for 14 days 42 tablet 12/09/2021 2 hydrocortisone (CORTENEMA) 100 mg/60 mL enemaIndications:U lcerative Colitis Insert 1 enema (100 mg total) into the rectum nightly as needed 30 enema 12/09/2021 2 documented in this encounter Progress Notes * Izabela Gregory, BASE BRANDER - 12/09/2021 11:15 AM CST Images from the original note were not included. [facility] TELEHEALTH CLINIC VISIT This was a telemedicine visit with Ranjit Peralta alone which took place via Real-time video connection (Super Heat Gamesuch, Zoom or similar).During the visit, I was located at home and the patient was located due to [facility] and [place] emergency in the [facility]. I was present for the curiel portions with the BASE BRANDER and patient/caregiver. I agree with the findings and plan of care as documented in the BASE BRANDER's note. The patient: has been informed that the visit may not be secure and acknowledged the information. The BASE BRANDER/PA has explained the option of participating in a telephone or video visit during the [address] emergency to them. After being given an opportunity to ask questions about and discuss this type of visit, they verbally consented to proceeding with the telephone/video visit and understand that this service replaces an office visit and they may be billed and/or responsible for any applicable copayments. REASON FOR VISIT: Follow-up for ileocolonic and perianal Crohn's disease CURRENT MEDICATIONS: Prednisone taper, Entyvio 300 mg 4 weeks, Xeljanz 10 mg b.i.d., Xanax p.r.n., folic acid, vitamin-D PROBLEM LIST: 1.?Ileocolonic and perianal Crohn's disease, diagnosed in 2006, with a presentation of hematochezia and a perianal fistula with abscess. ??The patient was previously treated with Humira, Cimzia, Remicade, methotrexate, and most recently Entyvio in combination with methotrexate, but still with some mild proctitis and a stricture at his IC valve; the patient was recommended to undergo surgery, given that he had a very tight IC valve and was having intermittent obstructions, but when he spoke to the surgeon, the decision was made to hold off until we found a different medicine. ??We endedup deciding to shorten his frequency of Entyvio [...] was seen in April 2020, at which time we decided to reinitiate Entyvio, as that is what he felt best on, and he certainly had the best colonoscopy so we put that in combination with Xeljanz so that we could then see if that combination worked for him. ??The patient initially self-discontinued Xeljanz due to perceived side-effects of SOB but he has been taking it consistently since. Unfortunately his colonoscopy from 08/07/2021 showed severe proctitis, mild ileitis and persistent fairly tight ileal cecal stricture that was dilated to 13.5 mm 2.?History of??significant??gout flares while on thiopurines??leading to their discontinuation. This could not be prevented with allopurinol. Requiring steroid tapers, indomethacin, and colchicine. ??Patient had difficulty with colchicine causing diarrhea 3.?Positive JERALD virus, titer of 2.15. 4. Difficulty tolerating methotrexate due to malaise and depressive symptoms HISTORY OF PRESENT ILLNESS: Ranjit Peralta is a gabby 40 y.o. male with past medical history of quite refractory ileocolonic and perianal Crohn's disease who presents today for follow-up and flare symptoms. The patient was last seen on 07/29/2021 at which time he was on Entyvio every 4 weeks since re-induction in October of 2020. He had been capped on Xeljanz and indicated that he did not feel 100% in remission as he still had rectal urgency and pressure. This had contributed to avoidance behavior regarding going outside for out inked. He also occasionally noticed blood in the toilet bowl. He had no t used any Uceris since last seen and denied any obstructive symptoms. Patient received the Modernavaccine in March. He was advised to continue his medications and plan for a colonoscopy. We also check for his antibody response to the Moderna vaccine which was noted to be robust. Unfortunately the patient's colonoscopy in August 07 still showed significant proctitis and mild ileitis. His stricture was dilated to 13.5 mm. The patient contacted our office reporting increased pressure and urgency. As he had not met his deductible he was reluctant to use Uceris so a prednisone taper was sent in The patient presents today reporting beyond his distal symptoms he feels good. Unfortunately the rectal pressure and urgency are still very frequent and his primary symptom. Sitz baths in Epson saltsare slightly helpful. He has found no benefit from it OTC preparation H suppositories. He does feelthe Uceris foam was helpful and believes he should be through his deductible by the end of the month as he will have received a 2nd Entyvio infusion since the start of the year. He does not see a lotof blood but the urgency is sufficient that he had to leave a meeting at his work and felt that he could barely make it. At times it is only gas but it feels urgent. He was able to try Otezla for 2 months through his restaurant host/hostess and thought it might be slightly helpful but his symptoms tended to vary day by day. He would be willing to look at diets or anything to relieve this rectal disease. Hestates that his watch has alerted him a few times of bradycardia dipping into the 40s. REVIEW OF SYSTEMS: As per HPI, all other systems negative PHYSICAL EXAM: Exam by interview only via video visit today. There were no vital signs taken for this visit General: Well-appearing male in no acute cardiopulmonary distress HEENT: Sclerae are not inflamed or icteric, nose and mouth appear normal Psych: Calm, cooperative, appropriate Neurological: Alert and oriented with no focal deficits OBJECTIVE DATA: Recents labs, imaging studies, and endoscopic procedures were reviewed for trends, and aberrations on the day of the patient's visit. ASSESSMENT AND PLAN: Ranjit Peralta is a gabby 40 y.o. male with a past medical history of fairly refractory ileocolonic Crohn's disease who presents today for follow-up 1. Crohn's disease. Unfortunately the patient continues to have significant proctitis that has beenresistant to all therapies. He would like to consider Zeposia as we have exhausted other therapies.The patient is welcome to try diet and supplements (TUDCA, CBD) if he believes these will help. As he does improve with Uceris foam, we will offer him a refill and will continue this until he is on the next therapy. We will also have him retry low-dose Flagyl. We will set him up with Cardiology andtry to get him vaccinated with Shingrix in test patient of other therapies. 2. Bradycardia. We will offer the patient a referral to Cardiology for workup particularly as Zeposia can worsen heartblock 3. Healthcare maintenance. The patient is encouraged to get vaccinated with Shingrix and get booster for COVID. He should continue to follow closely with his care team for other healthcare needs. The patient was given ample opportunity to ask questions and have them answered. We would like him to return in 3 months. This note was created in part with the assistance of Keepstream voice recognition software. Certified Genetic Counselor variances may occur. Cosigned by Paulina Jones MD at 12/10/2021 7:19 AM INVENTORY CONTROL COORDINATOR NTORY CONTROL COORDINATOR NTORY CONTROL COORDINATOR Associated attestation - Paulina Jones MD - 12/10/2021 7:19 AM INVENTORY CONTROL COORDINATOR I have seen and examined the patient. I agree with the findings and plan of care as documented in the resident/fellow's note. My total encounter time on 12/09/2021 was 30 minutes which was spent in [...] Info) Description 11/09/2024 Plan of Care Documentation [address] [place] [address] Scheduled Referrals Name Type Priority Associated Diagnoses Order Schedule Ambulatory referral to Cardiology Outpatient Referral Routine Bradycardia Expected: 12/23/2021 (Approximate), Expires: 12/09/2022 documented as of this encounter Visit Diagnoses Diagnosis High risk medications (not anticoagulants) long-term use- Primary Encounter for long-term (current) use of other medications Crohn's disease of both small and large intestine with intestinal obstruction (HCC) Proctitis Other specified disorder of rectum and anus Bradycardia Other specified cardiac dysrhythmias documented in this encounter Discontinued Medications Medication Sig Discontinue Reason Start Date End Da te hydrocortisone (CORTENEMA) 100 mg/60 mL enemaIndications:Ulcerat brandie Colitis Insert 1 enema (100 mg total) into the rectum nightly as needed for 30 days. Reorder 08/07/2021 12/09/2021 documented as of this encounter Care Teams Hydrogeology Professor Relationship Specialty Start Date End Date Kirstie Jarrell MD [address] [place] [id number] PCP - General 08/07/21 12/10/21 documented as of this encounter
--- OUTSIDE RECORDS SUMMARY | 2024-11-11 19:12 | XMS_ITS | Encounter Summary ---
Author Organization [facility] Address [address] [place] [address] Phone Care Team Providers Care Automat Car Attendant Name Role Phone Kirstie Jarrell MD Primary Care Provider + Encounter Details Date Type Department Care Team (Late Contact Info) Description 11/20/2021 4:30 PM OIL WINTERIZER Lab [facility] Oncology [address] [place] [address] Crohn's disease of small and [...] on file 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:34 AM OIL WINTERIZER Gender Identity Not on file Sexual Orientation Not on file documented as of this encounter Plan of Treatment Upcoming Encounters Date Type Department Care Team (Late st Contact Info) Description 11/09/2024 Plan of Care Documentation [address] [place] [address] documented as of this encounter Procedures Procedure Name Priority Date/Time Associated Diagnosis Comments DIFFERENTIAL AUTO Routine 11/20/2021 3:5 8 PM OIL WINTERIZER Crohn's disease of small and large intestines with complication (CMS/HCC) (HCC) CBC WITH AUTO DIFFERENTIAL Routine 11/20/2021 3:58 PM OIL WINTERIZER Crohn's disease of small and large intestines with complication (CMS/HCC) (HCC) HEPATIC FUNCTION PANEL Routine 11/20/2021 3:58 PM OIL WINTERIZER Crohn's disease of small and large intestines with complication (CMS/HCC) (HCC) LIPID PANEL Routine 11/20/2021 3:58 PM OIL WINTERIZER Crohn's disease of small and large intestines with complication (CMS/HCC) (HCC) documented in this encounter Results * Differential, auto (11/20/2021 3:58 PM OIL WINTERIZER) Neutrophil abs 6.5 1.7 - 6.5 K/cumm [facility] Imm gran abs 0.1 0.0 - 0.1 K/cumm [facility] Lymphocyte abs 2.4 0.8 - 3.3 K/cumm [facility] Monocyte abs 0.6 0.2 - 0.8 K/cumm [facility] Eosinophil abs 0.1 0.0 - 0.5 K/cumm [facility] Basophil abs 0.0 0.0 - 0.1 K/cumm [facility] Neutrophil pct 66.6 % [facility] Comment: Interpretive Data Percent [...] was last revised on 2018. Lymphocyte pct 24.6 % [facility] Comment: Interpretive Data Percent cell count reference ranges are not reported, since discordance with absolute values may lead to misinterpretation of CBC data. Current Interpretive Data was last revised on 2018. Monocyte pct 6.5 % [facility] Comment: Interpretive Data Percent cell count reference ranges are not reported, since discordance with absolute values may lead to misinterpretation of CBC data. Current Interpretive Data was last revised on 2018. Eosinophil pct 1.2 % [facility] Comment: Interpretive Data Percent [...] Data was last revised on 2018. Blood 11/20/2021 3:58 PM OIL WINTERIZER 11/20/2021 4:31 PM OIL WINTERIZER us Paulina Jones MD LAB BLOOD ORDERABLE S Final Result [facility] [address] [facility]. Department [place] [address] * (ABNORMAL) Lipid panel (11/20/2021 3:58 PM OIL WINTERIZER) Cholesterol 216(H) 30 - 199 mg/dL [facility] [...] 2018. Chol/HDL ratio 6 [facility] Blood 11/20/2021 3:58 PM OIL WINTERIZER 11/20/2021 4:31 PM OIL WINTERIZER us Paulina Jones MD LAB BLOOD ORDERABLE S Final Result [facility] [address] [facility]. Department [place] [address] * Hepatic function panel (11/20/2021 3:58 PM OIL WINTERIZER) Bilirubin, total 0.6 0.1 - 1.2 mg/dL [facility] Bilirubin, direct <0.2 0.1 - 0.3 mg/dL [facility] Protein, pl 7.5 6.5 - 8.5 g/dL [facility] Albumin 4.5 3.5 - 5.0 g/dL [facility] Alk phos 58 40 - 130 Units/L [facility] ALT 26 7 - 55 Units/L [facility] AST 23 10 - 50 Units/L [facility] Blood 11/20/2021 3:58 PM OIL WINTERIZER 11/20/2021 4:31 PM OIL WINTERIZER us Paulina Jones MD LAB BLOOD ORDERABLE S Final Result [facility] [address] [facility]. Department [place] [address] * CBC with auto differential (11/20/2021 3:58 PM OIL WINTERIZER) Pathologist [facility] WBC 9.7 3.8 - 9.9 K/cumm [facility] Hgb 13.1 13.0 - 17.5 g/dL [facility] Hct 40.5 38.9 - 50.3 % [facility] Plt 317 150 - 400 K/cumm [facility] MPV 9.8 9.1 - 12.3 fL [facility] RBC 4.61 4.30 - 5.80 M/cumm [facility] MCV 87.9 81.3 - 96.4 fL [facility] MCH 28.4 27.1 - 33.3 pg [facility] MCHC 32.3 32.3 - 35.7 g/dL [facility] RDW CV 14.1 11.1 - 14.9 % [facility] RDW SD 45.0 35.7 - 48.1 fL [facility] NRBC abs 0.00 0.00 - 0.01 K/cumm [facility] Blood 11/20/2021 3:58 PM OIL WINTERIZER 11/20/2021 4:31 PM OIL WINTERIZER us Paulina Jones MD LAB BLOOD ORDERABLE S Final Result [facility] [address] [facility]. Department [place] [address] documented in this encounter Visit Diagnoses Diagnosis Crohn's disease of small and large intestines with complication (HCC) documented in this encounter Care Teams Automat Car Attendant Relationship Specialty Start Date End Date Kirstie Jarrell MD [address] [place] [address] PCP - General 08/07/21 12/10/21 documented as of this encounter
--- OUTSIDE RECORDS SUMMARY | 2024-11-11 19:12 | XMS_ITS | Encounter Summary ---
Author Organization [facility] Address [address] [place] [address] Phone Care Team Providers Care Ranch Helper Name Role Phone Emmanuel Wesley DO Primary Care Provider [phone] Reason for Visit * Reason Onset Date Comments Follow-up 01/22/2022 Encounter Details Date Type Department Care Team (Late st Contact Info) Description 01/22/2022 Telephone [facility] Cardiology [address] [facility] [address] [place] [address] [place] [address] Mike Chapman MD [address] [facility] [address] [place], [place] [id number] Follow-up Social History Tobacco Use Types Packs/Day Years [...] file 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 Understanding verbalized. Will place order to have monitor mailed to patient. * Telephone Encounter - Cecilia Smith RN - 01/22/2022 4:16 PM CDT ----- Message from Mike Chapman MD sent at 01/22/2022 1:36 PM CDT ----- Please let patient and know that I discussed management with Dr. Jones and reviewed the package insert for medication. It is contraindicated in specific types of heart block. I think it is unlikely he has had I think it is reasonable to have him wear a 3 day monitor to ensure no specific co ntraindications. documented in this encounter Plan of Treatment Upcoming Encounters Date Type Department Care Team (Late st Contact Info) Description 11/09/2024 Plan of Care Documentation [facility] - [address] [place] [address] documented as of this encounter Visit Diagnoses Not on filedocumented in this encounter Care Teams Ranch Helper Relationship Specialty Start Date End Date Emmanuel Wesley DO PCP - General Internal Medicine 12/11/21 documented as of this encounter
--- OUTSIDE RECORDS SUMMARY | 2024-11-11 19:12 | XMS_ITS | Encounter Summary ---
Author Organization [facility] Address [address] [place] [address] Phone Care Team Providers Care Spa Director/Finance Name Role Phone Emmanuel Wesley DO Primary Care Provider +1- [phone] Encounter Details Date Type Department Care Team (Late Contact Info) Description 01/14/2022 10:40 AM ROLL ON WORKER Lab [facility] Oncology [address] [facility] [address] [place] [address] Crohn's disease of small and [...] file 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:34 AM ROLL ON WORKER Gender Identity Not on file Sexual Orientation Not on file documented as of this encounter Plan of Treatment Upcoming Encounters Date Type Department Care Team (Late st Contact Info) Description 11/09/2024 Plan of Care Documentation [address] [place] [address] documented as of this encounter Procedures Procedure Name Priority Date/Time Associated Diagnosis Comments DIFFERENTIAL AUTO Routine 01/14/2022 1:5 7 PM ROLL ON WORKER Crohn's disease of small and large intestines with complication (CMS/HCC) (HCC) CBC WITH AUTO DIFFERENTIAL Routine 01/14/2022 1:57 PM ROLL ON WORKER Crohn's disease of small and large intestines with complication (CMS/HCC) (HCC) HEPATIC FUNCTION PANEL Routine 01/14/2022 1:57 PM ROLL ON WORKER Crohn's disease of small and large intestines with complication (CMS/HCC) (HCC) LIPID PANEL Routine 01/14/2022 1:57 PM ROLL ON WORKER Crohn's disease of small and large intestines with complication (CMS/HCC) (HCC) documented in this encounter Results * Differential, auto (01/14/2022 1:57 PM ROLL ON WORKER) Neutrophil abs 4.5 1.7 - 6.5 K/cumm [facility] Imm gran abs 0.0 0.0 - 0.1 K/cumm [facility] Lymphocyte abs 1.4 0.8 - 3.3 K/cumm [facility] Monocyte abs 0.5 0.2 - 0.8 K/cumm [facility] Eosinophil abs 0.1 0.0 - 0.5 K/cumm [facility] Basophil abs 0.0 0.0 - 0.1 K/cumm [facility] Neutrophil pct 70.0 % [facility] Comment: Interpretive Data Percent [...] was last revised on 2018. Lymphocyte pct 20.9 % [facility] Comment: Interpretive Data Percent cell count reference ranges are not reported, since discordance with absolute values may lead to misinterpretation of CBC data. Current Interpretive Data was last revised on 2018. Monocyte pct 7.1 % [facility] Comment: Interpretive Data Percent cell count reference [...] Data was last revised on 2018. Blood 01/14/2022 1:57 PM ROLL ON WORKER 01/14/2022 2:19 PM ROLL ON WORKER us Paulina Jones MD LAB BLOOD ORDERABLE S Final Result [facility] [address] [facility]. Department [place] [address] * (ABNORMAL) Lipid panel (01/14/2022 1:57 PM ROLL ON WORKER) Cholesterol 193 30 - 199 mg/dL ALDO [...] 2018. Chol/HDL ratio 5 [facility] Blood 01/14/2022 1:57 PM ROLL ON WORKER 01/14/2022 2:19 PM ROLL ON WORKER us Paulina Jones MD LAB BLOOD ORDERABLE S Final Result [facility] [address] [facility]. [place] [address] * Hepatic function panel (01/14/2022 1:57 PM ROLL ON WORKER) Bilirubin, total 0.5 0.1 - 1.2 mg/dL [facility] Bilirubin, direct <0.2 0.1 - 0.3 mg/dL [facility] Protein, pl 7.1 6.5 - 8.5 g/dL [facility] Albumin 4.4 3.5 - 5.0 g/dL [facility] Alk phos 50 40 - 130 Units/L [facility] ALT 24 7 - 55 Units/L [facility] AST 20 10 - 50 Units/L [facility] Blood 01/14/2022 1:57 PM ROLL ON WORKER 01/14/2022 2:19 PM ROLL ON WORKER us Paulina Jones MD LAB BLOOD ORDERABLE S Final Result [facility] [address] [facility]. [place] [address] * CBC with auto differential (01/14/2022 1:57 PM ROLL ON WORKER) Pathologist [facility] WBC 6.5 3.8 - 9.9 K/cumm [facility] Hgb 13.7 13.0 - 17.5 g/dL [facility] Hct 41.6 38.9 - 50.3 % [facility] Plt 271 150 - 400 K/cumm [facility] MPV 9.5 9.1 - 12.3 fL [facility] RBC 4.67 4.30 - 5.80 M/cumm [facility] MCV 89.1 81.3 - 96.4 fL [facility] MCH 29.3 27.1 - 33.3 pg [facility] MCHC 32.9 32.3 - 35.7 g/dL [facility] RDW CV 14.3 11.1 - 14.9 % [facility] RDW SD 46.0 35.7 - 48.1 fL [facility] NRBC abs 0.00 0.00 - 0.01 K/cumm [facility] Blood 01/14/2022 1:57 PM ROLL ON WORKER 01/14/2022 2:19 PM ROLL ON WORKER us Paulina Jones MD LAB BLOOD ORDERABLE S Final Result [facility] [address] [facility]. [place] [address] documented in this encounter Visit Diagnoses Diagnosis Crohn's disease of small and large intestines with complication (HCC) documented in this encounter Care Teams Spa Director/Finance Relationship Specialty Start Date End Date Emmanuel Wesley DO PCP - General Internal Medicine 12/11/21 documented as of this encounter
--- OUTSIDE RECORDS SUMMARY | 2024-11-11 19:12 | XMS_ITS | Encounter Summary ---
Author Organization [facility] Address [address] [place] [address] Phone Care Team Providers Care Sergeant Missile Crewman Name Role Phone Emmanuel Wesley DO Primary Care Provider +1- [phone] Reason for Visit * Reason Onset Date Comments Call from Front App Manager 03/03/2022 Encounter Details Date Type Department Care Team (Late st Contact Info) Description 03/03/2022 Telephone [facility] Gastroenterology [address] 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 * Telephone Encounter - Paulina Jones MD - 03/11/2022 8:00 AM CDT Definitive samples * Telephone Encounter - Eryn Dalton LPN - 03/03/2022 8:31 AM CDT Images from the original note were not included. VM received from Kesha (Zeposia Corporate Travel Agent) stating that she was needing to obtain some addt'l clarification in regard to pt's Zeposia start form. Requesting return call to further discuss this. Spoke with Kesha this morning, Kesha informed me that pt unfortunately does not qualify for the bridge program to supply drug to pt as he does not have a confirmed UC dx. Per Kesha, they cannot legally provide the drug or offer any of their assistance that they have without pt having a diagnosis of UC. Kesha informed me that we can certainly try to submit the PA for Zeposia and see what happens but they are unable to assist in anyway. Received fax from [employer] which provided information for PA. Verbal submission is required to initiate the auth. Clinical notes, letter of medical necessity, lab results, diagnostic studies, and previous regimes to be discussed with payer at . Expected processing time is 1-3 days. Preferred specialty pharmacy is [facility] P: . Fax received from [employer] forwarded to scanning to be uploaded into pt's chart. (Within this same fax, it was noted that pt was eligible for their bridge program, however, upon further discussion with Kesha (noted above) pt is not eligible for their bridge program as he does not have a confirmed dx of UC). documented in this encounter Plan of Treatment Upcoming Encounters Date Type Department Care Team (Late st Contact Info) Description 11/09/2024 Plan of Care Documentation [address] [address] [address] [place] [address] documented as of this encounter Visit Diagnoses Not on filedocumented in this encounter Care Teams Sergeant Missile Crewman Relationship Specialty Start Date End Date Emmanuel Wesley DO PCP - General Internal Medicine 12/11/21 documented as of this encounter
--- OUTSIDE RECORDS SUMMARY | 2024-11-11 19:12 | XMS_ITS | Encounter Summary ---
Author Organization [facility] [employer] [facility] Address [address] [place] [address] Phone Care Team Providers Care Dermatology Teacher Name Role Phone Emmanuel Wesley DO Primary Care Provider +1- [phone] Reason for Visit * Reason Onset Date Comments Test Results 02/16/2022 Encounter Details Date Type Department Care Team (Late st Contact Info) Description 02/16/2022 Telephone [facility] Cardiology [address] [facility] [address] [facility] 8th [place] [address] [place] [address] Mike Chapman MD [address] [facility] [address] [place] [address] Test Results Social History Tobacco Use Types Packs/Day Years [...] on file 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 * Telephone Encounter - Karmen Montes - 02/16/2022 9:45 AM CDT Ari Pt calling in regards to the results of his heart monitor. documented in this encounter Plan of Treatment Upcoming Encounters Date Type Department Care Team (Late st Contact Info) Description 11/09/2024 Plan of Care Documentation [facility] - [address] [address] [address] [place] [address] documented as of this encounter Visit Diagnoses Not on filedocumented in this encounter Care Teams Dermatology Teacher Relationship Specialty Start Date End Date Emmanuel Wesley DO PCP - General Internal Medicine 12/11/21 documented as of this encounter
--- OUTSIDE RECORDS SUMMARY | 2024-11-11 19:12 | XMS_ITS | Encounter Summary ---
Author Organization [facility] Address [address] [place] [address] Phone Care Team Providers Care Salesperson Meats Name Role Phone Kirstie Jarrell MD Primary Care Provider + Encounter Details Date Type Department Care Team (Late st Contact Info) Description 08/27/2021 Telephone [facility] [address] 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 We talked about how he could take the results of his recent colonoscopy as a signthat it is important that he keep trying to focus on doing some activities to take care of himself as he continues to juggle work and home responsibilities. We talked about taking time out throughoutthe day to spend 15 seconds at various points to just be mindful of something positive that has occurred. He will schedule another appointment if he thinks it might be helpful and we talked about howhe could also send my a [employer] message if he just wants to send me an update or thinks that input from me might be helpful. documented in this encounter Plan of Treatment Upcoming Encounters Date Type Department Care Team (Late st Contact Info) Description 11/09/2024 Plan of Care Documentation [address] [address] [address] [place] [address] documented as of this encounter Visit Diagnoses Not on filedocumented in this encounter Care Teams Salesperson Meats Relationship Specialty Start Date End Date Kirstie Jarrell MD [address] [place] [address] PCP - General 08/07/21 12/10/21 documented as of this encounter
--- OUTSIDE RECORDS SUMMARY | 2024-11-11 19:12 | XMS_ITS | Encounter Summary ---
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 Zeposia samples were mailed out to pt (pt started therapy yesterday 02/22/22). Will stop Xeljanz. Eventually, would stop Entyvio as well once we know he is able to tolerate Zeposia. Per SKULL CHOPPER Harriet, would keep pt's May infusion appt at this time. documented in this encounter Plan of Treatment Upcoming Encounters Date Type Department Care Team (Late st Contact Info) Description 11/09/2024 Plan of Care Documentation [address] [place] [address] documented as of this encounter Visit Diagnoses Not on filedocumented in this encounter Discontinued Medications Medication Sig Discontinue Reason Start Date End Da te tofacitinib (Xeljanz) 10 mg tabletIndications:Crohn' s disease of small and large intestines with complication (HCC) Take 1 tablet (10 mg total) by mouth 2 (two) times a day Safety labs required every 3 months for med refills, next labs due ~ 07/2021. (CBC, LFT, Lipid Panel). Alternate therapy 04/27/2021 02/23/2022 documented as of this encounter Historical Medications * This list may reflect changes made after this encounter. vedolizumab (ENTYVIO) 300 mg recon soln Infuse 300 mg into a venous catheter every 4 (four) weeks 05/21/2022 added in this encounter Care Teams Chopper Feeder Relationship Specialty Start Date End Date Emmanuel Wesley DO PCP - General Internal Medicine 12/11/21 documented as of this encounter
--- OUTSIDE RECORDS SUMMARY | 2024-11-11 19:12 | XMS_ITS | Encounter Summary ---
Author Organization [facility] Address [address] [place] [address] Phone Care Team Providers Care Cleaning Maid Name Role Phone Kirstie Jarrell MD Primary Care Provider + Reason for Visit * Episode Based Medications (Routine) - Closed Specialty Diagnoses / Procedures Referred By Med bazan Referred To Contact Diagnoses Crohn's disease of small and large intestines with complication (HCC) Procedures NC INJECTION, VEDOLIZUMAB Paulina Jones MD [address] [place] [address] Phone: tel: fax: [facility] Allergy and Immunology [address] [place] [address] [address] [place] [address] Phone: tel: fax: Referral ID Status Reason Start Date Expiration Date Visits Re quested Visits Authorized [id number] Closed 11/03/2020 11/03/2022 99 99 Encounter Details Date Type Department Care Team (Late st Contact Info) Description 09/25/2021 12:00 PM ACADEMIC COORDINATOR Infusion [facility] Infusion Therapy [address] [place] [address] Office [address] [place] [address] Crohn's disease of small and [...] on file 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:34 AM ACADEMIC COORDINATOR Gender Identity Not on file Sexual Orientation Not on file documented as of this encounter Last Filed Vital Signs Vital Sign Reading Time Taken Comments Blood Pressure 142/88 09/25/2021 1:00 PM ACADEMIC COORDINATOR Pulse 59 09/25/2021 1:00 PM ACADEMIC COORDINATOR Temperature 36.9 ??C (98.4 ??F) 09/25/2021 12:[address] Respiratory Rate - - Oxygen Saturation - - Inhaled Oxygen Concentration - - Weight - - Height - - Body Mass Index - - documented in this encounter Plan of Treatment Upcoming Encounters Date Type Department Care Team (Late st Contact Info) Description 11/09/2024 Plan of Care Documentation [address] [address] [address] [place] [address] documented as of this encounter Visit Diagnoses Diagnosis Crohn's disease of small and large intestines with complication (HCC)- Primary documented in this encounter Administered Medications Inactive Administered Medications - up to 3 most recent administrations Medication Order MAR Action Action Date Dose Rate Site sodium chloride 0.9% flush 10 mL 10 mL, intravenous, As needed, line care, Starting on Tue09/25/21 at 1211, Flush pre and post IV catheter use.Indications:Crohn's disease of small and large intestines with complication (HCC) Given 09/25/2021 12:20 PM ACADEMIC COORDINATOR 10 mL vedolizumab (ENTYVIO) 300 mg in sodium chloride 0.9% 250 mL IVPB 300 mg, intravenous, at 510 mL/hr, Administer over 30 Minutes, Once, On Tue09/25/21 at 1315, For 1 doseIndications:Crohn's disease of small and large intestines with complication (HCC) New Bag 09/25/2021 12:27 PM ACADEMIC COORDINATOR 300 mg 510 mL/hr documented in this encounter Orders Nursing Count Last Ordered Date First Orde red Date ONCBCN PROVIDER COMMUNICATION 1 1 VITAL SIGNS PRE-INFUSION 1 09/25/2021 Appointment Requests Count Last Ordered Date Fi rst Ordered Date INFUSION APPT REQUEST 60 MIN 2 11/20/2021 09/25/2021 documented in this encounter Care Teams Cleaning Maid Relationship Specialty Start Date End Date Kirstie Jarrell MD [address] [place] [address] PCP - General 08/07/21 12/10/21 documented as of this encounter
--- OUTSIDE RECORDS SUMMARY | 2024-11-11 19:12 | XMS_ITS | Encounter Summary ---
Author Organization [facility] Address [address] [place] [address] Phone Care Team Providers Care Industrial Rehabilitation Consultant Name Role Phone Emmanuel Wesley DO Primary Care Provider +1- [phone] Reason for Visit * Episode Based Medications (Routine) - Closed Specialty Diagnoses / Procedures Referred By Med bazan Referred To Contact Diagnoses Crohn's disease of small and large intestines with complication (HCC) Procedures DE INJECTION, VEDOLIZUMAB Paulina Jones MD [address] [place] [address] Phone: tel: fax: [facility] Allergy and Immunology [address] [place] [address] [address] [place] [address] Phone: tel: fax: Referral ID Status Reason Start Date Expiration Date Visits Re quested Visits Authorized [id number] Closed 11/03/2020 11/03/2022 99 99 Encounter Details Date Type Department Care Team (Late st Contact Info) Description 12/18/2021 12:30 PM INDUSTRIAL PAINTER Infusion [facility] Infusion Therapy [address] [place] [address] [address] [place] [address] Crohn's disease of small and [...] on file 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:34 AM INDUSTRIAL PAINTER Gender Identity Not on file Sexual Orientation Not on file documented as of this encounter Last Filed Vital Signs Vital Sign Reading Time Taken Comments Blood Pressure 137/86 12/18/2021 1:36 PM INDUSTRIAL PAINTER Pulse 50 12/18/2021 1:36 PM INDUSTRIAL PAINTER Temperature 36.8 ??C (98.3 ??F) 12/18/2021 12:[address] Respiratory Rate - - Oxygen Saturation - - Inhaled Oxygen Concentration - - Weight - - Height - - Body Mass Index - - documented in this encounter Progress Notes * Allyn Patrick, RN - 12/18/2021 12:30 PM CST Pt here today for entyvio infusion. Pt denies any recent fevers or feeling ill. PIV started and CBC, HFP, and lipid panel. VSS. Infusion started. Pt instructed to call for help whenever needed. Infusion complete and pt tolerated well. STRIAL PAINTER documented in this encounter Miscellaneous Notes * Addendum Note - Marion Clark - 12/18/2021 12:30 PM CSTAddended by: MARION CLARK on: 12/18/2021 02:44 PM Modules accepted: Orders STRIAL PAINTER documented in this encounter Plan of Treatment Upcoming Encounters Date Type Department Care Team (Late st Contact Info) Description 11/09/2024 Plan of Care Documentation [address] [address] [address] [place] [address] documented as of this encounter Results * Lipid panel (12/18/2021 12:55 PM INDUSTRIAL PAINTER) [facility] Signature Cholesterol 193 30 - 199 mg/dL [...] revised on 2018. Chol/HDL ratio 5 [facility] Blood 12/18/2021 12:5 5 PM INDUSTRIAL PAINTER 12/18/2021 3:11 PM INDUSTRIAL PAINTER us Paulina Jones MD LAB BLOOD ORDERABLE S Final Result [facility] [address] [facility]. [place] [address] documented in this encounter Visit Diagnoses Diagnosis Crohn's disease of small and large intestines with complication (HCC)- Primary documented in this encounter Administered Medications Inactive Administered Medications - up to 3 most recent administrations Medication Order MAR Action Action Date Dose Rate Site sodium chloride 0.9% flush 10 mL 10 mL, intravenous, As needed, line care, Starting on Tue12/18/21 at 1245, Flush pre and post IV catheter use.Indications:Crohn's disease of small and large intestines with complication (HCC) Given 12/18/2021 12:55 PM INDUSTRIAL PAINTER 10 mL vedolizumab (ENTYVIO) 300 mg in sodium chloride 0.9% 250 mL IVPB 300 mg, intravenous, at 510 mL/hr, Administer over 30 Minutes, Once, On Tue12/18/21 at 1345, For 1 doseIndications:Crohn's disease of small and large intestines with complication (HCC) New Bag 12/18/2021 1:03 PM INDUSTRIAL PAINTER 300 mg 510 mL/hr documented in this encounter Orders Nursing Count Last Ordered Date First Orde red Date ONCBCN PROVIDER COMMUNICATION 1 1 2 VITAL SIGNS PRE-INFUSION 1 12/18/2021 Appointment Requests Count Last Ordered Date Fi rst Ordered Date INFUSION APPT REQUEST 60 MIN 1 12/18/2021 documented in this encounter Care Teams Industrial Rehabilitation Consultant Relationship Specialty Start Date End Date Emmanuel Wesley DO PCP - General Internal Medicine 12/11/21 documented as of this encounter
--- OUTSIDE RECORDS SUMMARY | 2024-11-11 19:12 | XMS_ITS | Encounter Summary ---
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 Gender Identity Not on file Sexual [...] Info) Description 11/09/2024 Plan of Care Documentation [address] [place] [address] documented as of this encounter Procedures Procedure Name Priority Date/Time Associated Diagnosis Comments DIFFERENTIAL AUTO Routine 03/12/2022 2:5 0 PM CDT Crohn's disease of small and large intestines with complication (CMS/HCC) (HCC) CBC WITH AUTO DIFFERENTIAL Routine 03/12/2022 2:50 PM CDT Crohn's disease of small and large intestines with complication (CMS/HCC) (HCC) HEPATIC FUNCTION PANEL Routine 03/12/2022 2:48 PM CDT Crohn's disease of small and large intestines with complication (CMS/HCC) (HCC) documented in this encounter Results * (ABNORMAL) Differential, auto (03/12/2022 2:50 PM CDT) Neutrophil abs 6.9(H) 1.7 - 6.5 K/cumm [facility] Imm gran abs 0.0 0.0 - 0.1 K/cumm [facility] Lymphocyte abs 1.1 0.8 - 3.3 K/cumm [facility] Monocyte abs 0.6 0.2 - 0.8 K/cumm [facility] Eosinophil abs 0.1 0.0 - 0.5 K/cumm [facility] Basophil abs 0.0 0.0 - 0.1 K/cumm [facility] Neutrophil pct 78.9 % [facility] Comment: Interpretive Data Percent [...] was last revised on 2018. Lymphocyte pct 12.1 % [facility] Comment: Interpretive Data Percent cell count reference ranges are not reported, since discordance with absolute values may lead to misinterpretation of CBC data. Current Interpretive Data was last revised on 2018. Monocyte pct 7.0 % [facility] Comment: Interpretive Data Percent cell count reference ranges are not reported, since discordance with absolute values may lead to misinterpretation of CBC data. Current Interpretive Data was last revised on 2018. Eosinophil pct 1.4 % [facility] Comment: Interpretive Data Percent cell count reference ranges are not reported, since discordance with absolute values may lead to misinterpretation of CBC data. Current Interpretive Data was last revised on 2018. Basophil pct 0.3 % [facility] Comment: Interpretive Data Percent cell count reference ranges are not reported, since discordance with absolute values may lead to misinterpretation of CBC data. Current Interpretive Data was last revised on 2018. Blood 03/12/2022 2:5 0 PM CDT 03/12/2022 2:50 PM CDT us Paulina Jones MD LAB BLOOD ORDERABLE S Final Result [facility] [address] [facility] Department of Laboratories [place], [place] [id number] * CBC with auto differential (03/12/2022 2:50 PM CDT) WBC 8.7 3.8 - 9.9 K/cumm [facility] Hgb 13.0 13.0 - 17.5 g/dL [facility] Hct 39.8 38.9 - 50.3 % [facility] [address]t 295 150 - 400 K/cumm [facility] MPV 10.1 9.1 - 12.3 fL [facility] RBC 4.54 4.30 - 5.80 M/cumm [facility] MCV 88 81 - 96 fL [facility] MCH 28.6 27.1 - 33.3 pg [facility] MCHC 32.7 32.3 - 35.7 g/dL [facility] RDW CV 12.5 11.1 - 14.9 % [facility] RDW SD 39.9 35.7 - 48.1 fL [facility] Blood 03/12/2022 2:50 PM CDT 03/12/2022 2:50 PM CDT Paulina Jones MD LAB BLOOD ORDERABLE S Final Result Performing Organization Address [facility] de Phone Number [facility] [address] [employer] [place], [place] [id number] * Hepatic function panel (03/12/2022 2:48 PM CDT) Pathologist [facility] Bilirubin, total 0.4 0.1 - 1.2 mg/dL [facility] Bilirubin, direct <0.2 0.1 - 0.3 mg/dL [facility] Protein, pl 7.1 6.5 - 8.5 g/dL [facility] Albumin 4.0 3.5 - 5.0 g/dL [facility] Alk phos 62 40 - 130 Units/L [facility] ALT 19 7 - 55 Units/L [facility] AST 16 10 - 50 Units/L [facility] Blood 03/12/2022 2:48 PM CDT 03/12/2022 3:23 PM CDT Paulina Jones MD LAB BLOOD ORDERABLE S Final Result Performing Organization Address [facility] de Phone Number [facility] [address] [employer] [place] [address] documented in this encounter Visit Diagnoses Diagnosis Crohn's disease of small and large intestines with complication (HCC) documented in this encounter Care Teams Brick Tosser Relationship Specialty Start Date End Date Emmanuel Wesley DO PCP - General Internal Medicine 12/11/21 documented as of this encounter
--- OUTSIDE RECORDS SUMMARY | 2024-11-11 19:13 | XMS_ITS | Encounter Summary ---
Author Organization [facility] [employer] [facility] Address [address] [place] [address] Phone Care Team Providers Care Air Export Coordinator Name Role Phone Kirstie Jarrell MD Primary Care Provider + Encounter Details Date Type Department Care Team (Late st Contact Info) Description 05/29/2021 2:10 PM CDT Lab [facility] Oncology [address] [place] [id number] Crohn's disease of small and large intestines with complication (CMS/HCC) (HCC) Social History Tobacco Use Types Packs/Day Years Used Date Smoking Tobacco: Former Cigarettes Q uit: 2005 Smokeless Tobacco: Never Alcohol Use Standard Drinks/Week Comments Yes 0 (1 standard drink = 0.6 oz pur e alcohol) occasional Sex and Gender Information Value Date Recorded Sex Assigned at Not on file 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 Gender Identity Not on file Sexual Orientation Not on file documented as of this encounter Plan of Treatment Upcoming Encounters Date Type Department Care Team (Late st Contact Info) Description 11/09/2024 Plan of Care Documentation [address] [address] [address] [place] [address] documented as of this encounter Procedures Procedure Name Priority Date/Time Associated Diagnosis Comments DIFFERENTIAL AUTO Routine 05/29/2021 11: 45 AM CDT Crohn's disease of small and large intestines with complication (CMS/HCC) (HCC) CBC WITH AUTO DIFFERENTIAL Routine 05/29/2021 11:45 AM CDT Crohn's disease of small and large intestines with complication (CMS/HCC) (HCC) HEPATIC FUNCTION PANEL Routine 05/29/2021 11:45 AM CDT Crohn's disease of small and large intestines with complication (CMS/HCC) (HCC) LIPID PANEL Routine 05/29/2021 11:45 AM CDT Crohn's disease of small and large intestines with complication (CMS/HCC) (HCC) documented in this encounter Results * Differential, auto (05/29/2021 11:45 AM CDT) Neutrophil abs 6.5 1.7 - 6.5 K/cumm [facility] Imm gran abs 0.0 0.0 - 0.1 K/cumm [facility] Lymphocyte abs 1.7 0.8 - 3.3 K/cumm [facility] Monocyte abs 0.8 0.2 - 0.8 K/cumm [facility] Eosinophil abs 0.0 0.0 - 0.5 K/cumm [facility] Basophil abs 0.0 0.0 - 0.1 K/cumm [facility] Neutrophil pct 71.7 % [facility] Comment: Interpretive Data Percent cell count reference ranges are not reported, since discordance with absolute values may lead to misinterpretation of CBC data. Current Interpretive Data was last revised on 2018. Imm gran pct 0.2 % [facility] Comment: Interpretive [...] revised on 2018. Monocyte pct 8.5 % [facility] Comment: Interpretive Data Percent [...] on 2018. Basophil pct 0.3 % [facility] Comment: Interpretive Data Percent cell count reference ranges are not reported, since discordance with absolute values may lead to misinterpretation of CBC data. Current Interpretive Data was last revised on 2018. Blood specimen (specimen) 05/29/2021 11:45 AM CDT 05/29/2021 2:27 PM CDT us Paulina Jones MD LAB BLOOD ORDERABLE S Final Result Performing Organization Address City/State/[facility] Co de Phone Number [facility] [address] [facility]. Department [place] [address] * (ABNORMAL) Lipid panel (05/29/2021 11:45 AM CDT) Cholesterol 194 30 - 199 mg/dL [facility] Comment: [...] Data was last revised on 2018. Triglycerides 171(H) <=149 mg/dL [facility] Comment: Interpretive Data [...] Data was last revised on 2018. HDL 35(L) >=40 mg/dL [facility] Comment: Interpretive Data [...] was last revised on 2018. Non-HDL Cholesterol 159 mg/dL [facility] Comment: Interpretive Data Ages [...] 2018. Chol/HDL ratio 6 [facility] Blood specimen (specimen) 05/29/2021 11:45 AM CDT 05/29/2021 2:27 PM CDT us Paulina Jones MD LAB BLOOD ORDERABLE S Final Result [facility] [address] [facility]. Department of Laboratories [place], [place] [id number] * Hepatic function panel (05/29/2021 11:45 AM CDT) Bilirubin, total 0.6 0.1 - 1.2 mg/dL [facility] Bilirubin, direct <0.2 0.1 - 0.3 mg/dL [facility] Protein, pl 7.1 6.5 - 8.5 g/dL [facility] Albumin 4.4 3.5 - 5.0 g/dL [facility] Alk phos 65 40 - 130 Units/L [facility] ALT 22 7 - 55 Units/L [facility] AST 26 10 - 50 Units/L [facility] Blood specimen (specimen) 05/29/2021 11:45 AM CDT 05/29/2021 2:27 PM CDT Paulina Jones MD LAB BLOOD ORDERABLE S Final Result Performing Organization Address [facility]/ZIP Co de Phone Number [facility] [address] [facility]. Department [place] [address] * (ABNORMAL) CBC with auto differential (05/29/2021 11:45 AM CDT) [facility] WBC 9.1 3.8 - 9.9 K/cumm [facility] Hgb 12.8(L) 13.0 - 17.5 g/dL [facility] Hct 39.6 38.9 - 50.3 % [facility] Plt 256 150 - 400 K/cumm [facility] MPV 10.5 9.1 - 12.3 fL [facility] RBC 4.54 4.30 - 5.80 M/cumm [facility] MCV 87.2 81.3 - 96.4 fL [facility] MCH 28.2 27.1 - 33.3 pg [facility] MCHC 32.3 32.3 - 35.7 g/dL [facility] RDW CV 14.4 11.1 - 14.9 % [facility] RDW SD 46.1 35.7 - 48.1 fL [facility] NRBC abs 0.00 0.00 - 0.01 K/cumm [facility] Blood specimen (specimen) 05/29/2021 11:45 AM CDT 05/29/2021 2:27 PM CDT Paulina Jones MD LAB BLOOD ORDERABLE S Final Result [facility] [address] [address] Department [place] [address] documented in this encounter Visit Diagnoses Diagnosis Crohn's disease of small and large intestines with complication (HCC) documented in this encounter Care Teams Air Export Coordinator Relationship Specialty Start Date End Date Kirstie Jarrell MD PCP - General 08/29/17 08/06/21 documented as of this encounter
--- OUTSIDE RECORDS SUMMARY | 2024-11-11 19:13 | XMS_ITS | Encounter Summary ---
Author Organization [facility] Address [address] [place] [address] Phone Care Team Providers Care Test Skein Winder Name Role Phone Kirstie Jarrell MD Primary Care Provider + Reason for Visit * Episode Based Medications (Routine) - Closed Specialty Diagnoses / Procedures Referred By Med bazan Referred To Contact Diagnoses Crohn's disease of small and large intestines with complication (HCC) Procedures WA INJECTION, VEDOLIZUMAB Paulina Jones MD [address] [place] [address] Phone: tel: fax: [facility] [address] [place] [address] [address] [place] [address] Phone: tel: fax: Referral ID Status Reason Start Date Expiration Date Visits Re quested Visits Authorized [id number] Closed 11/03/2020 11/03/2022 99 99 Encounter Details Date Type Department Care Team (Late st Contact Info) Description 04/27/2021 10:00 AM CDT Infusion 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 Pt denies any recent fevers or feeling ill. PIV started and CBC, HFP, and lipid panel drawn with PIV start. VSS. Infusion started. Pt instructed to call for help whenever needed. Infusion complete and pt tolerated well. documented in this encounter Miscellaneous Notes * Addendum Note - Julieta Tsang - 04/27/2021 10:00 AM CDTAddended by: JULIETA TSANG on: 04/27/2021 11:59 AM Modules accepted: Orders documented in this encounter Plan of Treatment Upcoming Encounters Date Type Department Care Team (Late st Contact Info) Description 11/09/2024 Plan of Care Documentation [facility] [address] [address] [address] [place] [address] documented as of this encounter Results * (ABNORMAL) Lipid panel (04/27/2021 11:00 AM CDT) Cholesterol 193 30 - 199 mg/dL [facility] Comment: Interpretive Data Ages < or [...] Data was last revised on 2018. Triglycerides 141 <=149 mg/dL [facility] Comment: Interpretive Data [...] was last revised on 2018. LDL, calculated 130(H) <=129 mg/dL [facility] Comment: Interpretive Data [...] was last revised on 2018. Non-HDL Cholesterol 158 mg/dL [facility] Comment: Interpretive Data Ages [...] ratio 6 [facility] Blood specimen (specimen) 04/27/2021 11:00 AM CDT 04/27/2021 12:49 PM CDT us Paulina Jones MD LAB BLOOD ORDERABLE S Final Result [facility] [address] [facility]. Department [place] [address] documented in this encounter Visit Diagnoses Diagnosis Crohn's disease of small and large intestines with complication (HCC)- Primary documented in this encounter Administered Medications Inactive Administered Medications - up to 3 most recent administrations Medication Order MAR Action Action Date Dose Rate Site sodium chloride 0.9% flush 10 mL 10 mL, intravenous, As needed, line care, Starting on Tue04/27/21 at 1002, Flush pre and post IV catheter use.Indications:Crohn's disease of small and large intestines with complication (HCC) Given 04/27/2021 10:10 AM CDT 10 mL vedolizumab (ENTYVIO) 300 mg in sodium chloride 0.9% 250 mL IVPB 300 mg, intravenous, at 510 mL/hr, Administer over 30 Minutes, Once, On Tue04/27/21 at 1115, For 1 doseIndications:Crohn's disease of small and large intestines with complication (HCC) New Bag 04/27/2021 10:17 AM CDT 300 mg 510 mL/hr documented in this encounter Orders Nursing Count Last Ordered Date First Orde red Date ONCBCN PROVIDER COMMUNICATION 1 1 VITAL SIGNS PRE-INFUSION 1 04/27/2021 Appointment Requests Count Last Ordered Date Fi rst Ordered Date INFUSION APPT REQUEST 60 MIN 1 04/27/2021 documented in this encounter Care Teams Test Skein Winder Relationship Specialty Start Date End Date Kirstie Jarrell MD PCP - General 08/29/17 08/06/21 documented as of this encounter
--- OUTSIDE RECORDS SUMMARY | 2024-11-11 19:13 | XMS_ITS | Encounter Summary ---
Author Organization [facility] [employer] [facility] Address [address] [place] [address] Phone Care Team Providers Care Global Chief Experience Officer Name Role Phone Kirstie Jarrell MD Primary Care Provider + Encounter Details Date Type Department Care Team (Late st Contact Info) Description 01/06/2021 Orders Only [facility] Gastroenterology [address] [facility] [address] [place] [address] [place] [address] Rita Lama RN Social History Tobacco Use Types Packs/Day Years Used Date Smoking Tobacco: Former Cigarettes Q uit: 2005 Smokeless Tobacco: Never Alcohol Use Standard Drinks/Week Comments Yes 0 (1 standard drink = 0.6 oz pur e alcohol) occasional Sex and Gender Information Value Date Recorded Sex Assigned at Not on file 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
--- OUTSIDE RECORDS SUMMARY | 2024-11-11 19:13 | XMS_ITS | Encounter Summary ---
Author Organization [facility] Address [address] [place] [address] Phone Care Team Providers Care Switchboard Manager Name Role Phone Kirstie Jarrell MD Primary Care Provider + Encounter Details Date Type Department Care Team (Late st Contact Info) Description 09/01/2020 Orders Only [facility] Gastroenterology [address] 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
--- OUTSIDE RECORDS SUMMARY | 2024-11-11 19:13 | XMS_ITS | Encounter Summary ---
Author Organization [facility] Healthcare Address [address] [place] [address] Care Team Providers Care Wild Life Photographer Name Role Phone Kirstie Jarrell MD Primary Care Provider + Encounter Details Date Type Department Care Team (Late st Contact Info) Description 12/05/2020 2:00 PM HOGSHEAD OPENER Lab [facility] [address] [place] [address] Crohn's disease of small and large intestines with complication (CMS/HCC) Social History Tobacco Use Types Packs/Day Years Used Date Smoking Tobacco: Former Cigarettes Q uit: 2005 Smokeless Tobacco: Never Alcohol Use Standard Drinks/Week Comments Yes 0 (1 standard drink = 0.6 oz pur e alcohol) occasional Sex and Gender Information Value Date Recorded Sex Assigned at Not on file 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:34 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 OPENER Gender Identity Not on file Sexual Orientation Not on file documented as of this encounter Miscellaneous Notes * Result Encounter Note - Paulina Jones MD - 12/05/2020 3:26 PM CST CBC, LFTs and lipid panel OK HEAD OPENER documented in this encounter Plan of Treatment Upcoming Encounters Date Type Department Care Team (Late st Contact Info) Description 11/09/2024 Plan of Care Documentation [facility] [address] [facility] [address] [address] [place] [address] documented as of this encounter Procedures Procedure Name Priority Date/Time Associated Diagnosis Comments DIFFERENTIAL AUTO Routine 12/05/2020 10: 45 AM HOGSHEAD OPENER Crohn's disease of small and large intestines with complication (CMS/HCC) CBC WITH AUTO DIFFERENTIAL Routine 12/05/2020 10:45 AM HOGSHEAD OPENER Crohn's disease of small and large intestines with complication (CMS/HCC) HEPATIC FUNCTION PANEL Routine 12/05/2020 10:45 AM HOGSHEAD OPENER Crohn's disease of small and large intestines with complication (CMS/HCC) LIPID PANEL Routine 12/05/2020 10:45 AM HOGSHEAD OPENER Crohn's disease of small and large intestines with complication (CMS/HCC) documented in this encounter Results * Differential, auto (12/05/2020 10:45 AM HOGSHEAD OPENER) Neutrophil abs 4.6 1.7 - 6.5 K/cumm [facility] Imm gran abs 0.0 0.0 - 0.1 K/cumm [facility] Lymphocyte abs 1.9 0.8 - 3.3 K/cumm [facility] Monocyte abs 0.5 0.2 - 0.8 K/cumm [facility] Eosinophil abs 0.1 0.0 - 0.5 K/cumm [facility] Basophil abs 0.0 0.0 - 0.1 K/cumm [facility] Neutrophil pct 65.0 % [facility] Comment: Interpretive Data Percent [...] was last revised on 2018. Lymphocyte pct 26.1 % [facility] Comment: Interpretive Data Percent [...] was last revised on 2018. Eosinophil pct 0.8 % [facility] Comment: Interpretive Data Percent [...] last revised on 2018. Blood specimen (specimen) 12/05/2020 10:45 AM HOGSHEAD OPENER 12/05/2020 2:23 PM HOGSHEAD OPENER Paulina Jones MD LAB BLOOD ORDERABLE S Final Result [facility] [address] [facility]. [place] [address] * (ABNORMAL) Lipid panel (12/05/2020 10:45 AM HOGSHEAD OPENER) Cholesterol 191 30 - 199 mg/dL [facility] Comment: [...] Data was last revised on 2018. Triglycerides 131 <=149 mg/dL [facility] Comment: Interpretive Data Ages < or = [...] on 2018. HDL 34(L) >=40 mg/dL [facility] Comment: Interpretive Data Ages < or = [...] was last revised on 2018. LDL, calculated 131(H) <=129 mg/dL [facility] Comment: Interpretive Data Ages < or = [...] was last revised on 2018. Non-HDL Cholesterol 157 mg/dL [facility] Comment: Interpretive Data Ages [...] ratio 6 [facility] Blood specimen (specimen) 12/05/2020 10:45 AM HOGSHEAD OPENER 12/05/2020 2:23 PM HOGSHEAD OPENER us Paulina Jones MD LAB BLOOD ORDERABLE S Final Result ALDO [facility] [address] [facility]. [place] [address] * Hepatic function panel (12/05/2020 10:45 AM HOGSHEAD OPENER) Bilirubin, total 0.7 0.1 - 1.2 mg/dL [facility] Bilirubin, direct <0.2 0.1 - 0.3 mg/dL [facility] Protein, pl 7.3 6.5 - 8.5 g/dL [facility] Albumin 4.5 3.5 - 5.0 g/dL [facility] Alk phos 56 40 - 130 Units/L [facility] ALT 30 7 - 55 Units/L [facility] AST 27 10 - 50 Units/L [facility] Blood specimen (specimen) 12/05/2020 10:45 AM HOGSHEAD OPENER 12/05/2020 2:23 PM HOGSHEAD OPENER us Paulina Jones MD LAB BLOOD ORDERABLE S Final Result [facility] [address] [facility]. [place] [address] * (ABNORMAL) CBC with auto differential (12/05/2020 10:45 AM HOGSHEAD OPENER) WBC 7.1 3.8 - 9.9 K/cumm [facility]NER [facility] Hgb 12.8(L) 13.0 - 17.5 g/dL [facility] Hct 39.2 38.9 - 50.3 % [facility] Plt 291 150 - 400 K/cumm [facility] MPV 10.1 9.1 - 12.3 fL [facility] RBC 4.43 4.30 - 5.80 M/cumm [facility]LOLY [facility] MCV 88.5 81.3 - 96.4 fL [facility] MCH 28.9 27.1 - 33.3 pg [facility] MCHC 32.7 32.3 - 35.7 g/dL [facility] CV 14.5 11.1 - 14.9 % [facility]LOLY MILLERW RDW SD 46.5 35.7 - 48.1 fL [facility] NRBC abs 0.00 0.00 - 0.01 K/cumm [facility]LOLY [facility] Blood specimen (specimen) 12/05/2020 10:45 AM HOGSHEAD OPENER 12/05/2020 2:23 PM HOGSHEAD OPENER us Paulina Jones MD LAB BLOOD ORDERABLE S Final Result [facility] [address] [facility]. [place] [address] documented in this encounter Visit Diagnoses Diagnosis Crohn's disease of small and large intestines with complication (HCC) documented in this encounter Care Teams Wild Life Photographer Relationship Specialty Start Date End Date Kirstie Jarrell MD PCP - General 08/29/17 08/06/21 documented as of this encounter
--- OUTSIDE RECORDS SUMMARY | 2024-11-11 19:13 | XMS_ITS | Encounter Summary ---
Author Organization [facility] Address [address] [place] [address] Phone Care Team Providers Care Recovery Room Rn Name Role Phone Kirstie Jarrell MD Primary Care Provider + Encounter Details Date Type Department Care Team (Late st Contact Info) Description 01/06/2021 10:30 AM PREPARATION SUPERVISOR CANNING Office Visit [facility] Gastroenterology [address] [facility] Medical Office Building [address] [place] [address] Paulina Jones MD [address] [place] [address] Crohn's disease of both small and large intestine without complication (CMS/HCC) (Primary Dx); High risk medications (not anticoagulants) long-term use; Anxiety Social History Tobacco Use Types Packs/Day Years Used Date Smoking Tobacco: Former Cigarettes Q uit: 2005 Smokeless Tobacco: Never Alcohol Use Standard Drinks/Week Comments Yes 0 (1 standard drink = 0.6 oz pur e alcohol) occasional Sex and Gender Information Value Date Recorded Sex Assigned at Not on file 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:34 AM PREPARATION SUPERVISOR CANNING Gender Identity Not on file Sexual Orientation Not on file documented as of this encounter Last Filed Vital Signs Vital Sign Reading Time Taken Comments Blood Pressure 148/93 01/06/2021 10:35 AM PREPARATION SUPERVISOR CANNING Pulse 60 01/06/2021 10:35 AM PREPARATION SUPERVISOR CANNING Temperature - - Respiratory Rate - - Oxygen Saturation - - Inhaled Oxygen Concentration - - Weight 119.7 kg (264 lb) 01/06/2021 10:35 AM PREPARATION SUPERVISOR CANNING Height 190.5 cm (6' 3 ) 01/06/2021 10:35 AM PREPARATION SUPERVISOR CANNING Body Mass Index 33 01/06/2021 10:35 AM PREPARATION SUPERVISOR CANNING documented in this encounter Patient Instructions * Patient Instructions* Rita Lama RN - 01/06/2021 10:30 AM PREPARATION SUPERVISOR CANNING colonoscopy with meth blue in 04/2021- Penelope to schedule Procedure(s) closer to that time frame. Feelfree to contact her at direct extension [phone]. Make referral to Petra Bowman for anxiety- Akeia to place referral follow up in the office in 6 months ARATION SUPERVISOR CANNING ARATION SUPERVISOR CANNING ARATION SUPERVISOR CANNING documented in this encounter Progress Notes * Nilay Mcneill MD - 01/06/2021 10:30 AM CST PATIENT NAME: DANTE PERALTA : 1980 DIMITRIS: 09/03/2020 REASON FOR VISIT: Follow-up on ileocolonic and perianal Crohn's disease, diagnosed in 2006. His Entyvio frequency wasrecently increased to every 4 weeks due to low Entyvio levels on a q4 week schedule. The patient has been consistently taking Xeljanz 10mg BID since his last visit in 08/2020. CURRENT MEDICATION: 1. Folic acid daily. 2. Vitamin D once a month. 3. Entyvio every 4 weeks 4. Xeljanz 10mg BID PROBLEM LIST: 1. Ileocolonic and perianal Crohn's disease, diagnosed in 2006, with a presentation of hematocheziaand a perianal fistula with abscess. 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 We ended up deciding to shorten his frequency of Entyvio to every 6 weeks, but unfortunately, we could not get it approved, and ultimately, the patient underwent a repeat colonoscopy in July 2019 that again demonstrated active disease as well as proctitis. He was then started on Stelara, and Entyvio was stopped. The patient received his first induction dose of Stelara in August 2019, but unfortunately, he was s till symptomatic, and his MRE demonstrated active disease, and ultimately, he was seen in April 2020, at which time we decided to reinitiate Entyvio, as that is what he felt best on, and he certainly had the best colonoscopy so we put that in combination with Xeljanz so that we could then see if that combination worked for him. The patient initially self-discontinued Xeljanz due to perceived side-effects of SOB but he has been taking it consistently for the past 4 months. 2. History of gout, which led to discontinuation of thiopurines. The patient was not able to restart it, as he felt like it caused a lot nausea, vomiting, as well as could not tolerate allopurinol. 3. Positive JERALD virus, titer of 2.15. HISTORY OF PRESENT ILLNESS: Dante is a gabby 40 y.o. male, with a past medical history of ileocolonic and perianal Crohn's disease, who presents today for follow-up. The patient was last seen in clinic in August 2020. Since that time, his Entyvio frequency was increased to every 4 weeks due to low levels on labs. He started this increased frequency schedule withfirst infusion in October 2020. The patient denies experiencing any abdominal pain or obstructive symptoms. However, the patient does report experiencing regular urgency and his last bowel movement of the day consists primarily of mucous with little stool. He occasionally notes blood on the toilettissue but otherwise feels well. He has been using his Uceris 4-6x a week for these symptoms. The patient describes his symptom burden contributing to significant anxiety and that he dreads leaving the house. He previously took nortriptyline for similar symptoms but this did not provide relief to the patient. The patient otherwise has no other complaints. He denies fevers, chills, weight loss, rash, eye pain, joint pain/stiffness. CBC and LFTs from December 2020 are unremarkable. PHYSICAL EXAMINATION: VITAL SIGNS: Vitals BP 148/93 Pulse 60 Ht 190.5 cm (6' 3 ) Wt 119.7 kg (264 lb) BMI 33.00 kg/m?? GENERAL: He is a well-appearing white male, in no apparent distress. CARDIOVASCULAR: RRR. Normal S1, S2. No murmurs, rubs or gallops PULMONARY: Unlabored on room air. Clear to auscultation bilaterally. No wheezes or crackles ABDOMEN: Soft, nontender, nondistended, with good bowel sounds. EXTREMITIES: No edema. ASSESSMENT: Dante is a gabby 39-year-old male with a past medical history of ileal as well as perianal/proctitis, who presents today for follow-up, currently on Entyvio with recent increase in frequency to every 4 weeks, as well as Xeljanz. He still has symptoms of urgency and tenesmus for which he takes topical steroids as needed. We will plan to perform a colonoscopy in 3 months. For the patients anxiety we will refer the patient to one of our psychologists, Petra Bowman. The patient otherwise was given ample opportunity to ask any questions. We will plan on seeing him back here in 4 months, but I anticipate doing a colonoscopy on him in the spring. The patient was given ample opportunity to ask any questions, and his questions were answered. Nilay Mcneill MD Cosigned by Paulina Jones MD at 01/07/2021 7:28 AM PREPARATION SUPERVISOR CANNING ARATION SUPERVISOR CANNING ARATION SUPERVISOR CANNING Associated attestation - Paulina Jones MD - 01/07/2021 7:28 AM PREPARATION SUPERVISOR CANNING I have seen and examined the patient. I agree with the findings and plan of care as documented in the resident/fellow's note. My total encounter time on 01/06/2021 was 30 minutes which was spent in [...] Info) Description 11/09/2024 Plan of Care Documentation [address] [place] [address] documented as of this encounter Visit Diagnoses Diagnosis Crohn's disease of both small and large intestine without complication (CMS/HCC) (HCC)- Primary High risk medications (not anticoagulants) long-term use Encounter for long-term (current) use of other medications Anxiety Anxiety state, unspecified documented in this encounter Care Teams Recovery Room Rn Relationship Specialty Start Date End Date Kirstie Jarrell MD PCP - General 08/29/17 08/06/21 documented as of this encounter
--- OUTSIDE RECORDS SUMMARY | 2024-11-11 19:13 | XMS_ITS | Encounter Summary ---
Author Organization [facility] Address [address] [place] [address] Phone Care Team Providers Care Aircraft Log Clerk Name Role Phone Kirstie Jarrell MD Primary Care Provider + Reason for Visit * Consultation (Routine) - Closed Specialty Diagnoses / Procedures Referred By Med ojeda Referred To Contact Psychiatry Diagnoses Crohn's disease of both small and large intestine without complication (CMS/HCC) (HCC) Paulina Jones MD [address] [place] [address] Phone: tel: fax: Petra Bowman, PhD [id number] [place] [address] Phone: tel: fax: Referral ID Status Reason Start Date Expiration Date V isits Requested Visits Authorized [id number] Closed Specialty Services Required 01/15/2021 02/14/2022 1 1 Encounter Details Date Type Department Care Team (Late st Contact Info) Description 04/16/2021 1:00 PM CDT Telemedicine [facility] Psychiatry [address] [facility] [address] [place] [address] Petra Bowman, PhD [id number] [place], [place] [id number] Adjustment disorder with anxious mood (Primary Dx) Social History Tobacco Use Types Packs/Day Years Used Date Smoking Tobacco: Former Cigarettes Q uit: 2004 Smokeless Tobacco: Never Alcohol Use Standard Drinks/Week Comments Yes 0 (1 standard drink = 0.6 oz pur e alcohol) occasional Sex and Gender Information Value Date Recorded Sex Assigned at Not on file 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:34 AM INSURANCE ACCOUNT REPRESENTATIVE Gender Identity Not on file Sexual Orientation Not on file documented as of this encounter Progress Notes * Petra Bowman, PhD - 04/16/2021 1:00 PM CDT Patient ID: The patient had an appointment scheduled with the Health Psychologist. Visit Information This was a telemedicine visit with Ranjit Ojeda Jinnyterri alone which took place via Telephone because there were problems associated with the Zoom connection. During the visit, I was located at home andthe patient was located in the state [facility]. The patient visit started at 1:00 and ended at 2:03. The patient: has been informed that the visit may not be secure and acknowledged the information. The option of participating in a telephone or video visit during the [facility] [place] [address] emergencywas explained to them. After being given an opportunity to ask questions about and discuss this type of visit, they verbally consented to proceeding with the telephone/video visit and understand thatthis service replaces an office visit. Ranjit Peralta was on time for his phone call/Zoom appointment. Objective Mental Status Exam: Orientation: Alert Memory: Grossly Intact Attention/Concentration: Normal Behavior: Generally calm Speech: Regular rate and rhythm Thought Process: Sequential and Goal-directed Content of Thought: No suicidal ideation expressed Affect: Euthymic Insight/Judgement: Good The patient said that he ???got away?? from listening to the guided imagery recordings while on vacation. He has been using the anti-anxiety medication for specific situations where his anxiety level is higher. These situations include traveling, being on an airplane, and being away from home for a while. He said that at one point he had to stop at a gas station in order to use the bathroom. He said that he went on a golf outing in March and had no issues. We talked about the importance of reminding himself that he can that in some situations he jj better than he was expecting. We talked about how the anti-anxiety medication is meant to be a short-term solution. He said that he understands that and is only using it about 2 to 3 times a week. He does think that he might need one refill. We talked about the importance of starting to monitor his stress/tension level so that he can do diaphragmatic breathing or guided imagery for 20 to 30 seconds in order to bring it down. He said that he has been using a program named [employer] to help him with his symptoms. He said that he likes that itis structured. He said that the program was developed by Dr. Cole Corona for IBS/IBD symptoms. Hegets a reminder each day to do a reading and to listen to a recording. He does it at 8:30 a.m. He said that he has been doing it for 3 to 4 days. We talked about the idea that he can use whatever approaches and techniques work best for him. I provided cognitive behavioral psychotherapy regarding stress management and coping more effectively with gastrointestinal symptoms. Assessment The patient's symptoms are somewhat improved. He is able to identify external stressors that affectmood/behavior, is using coping skills more consistently and is working on learning techniques to cope more effectively with gastrointestinal symptoms. Progress is good. Diagnosis (F43.22) Adjustment disorder with anxious mood (primary encounter diagnosis) Plan A follow up appointment was scheduled for 1 on 06/11. Therapy will continue to focus on helping the patient to improve stress management skills and deal more effectively with gastrointestinal symptoms. The patient understands and agrees with the treatment plan. Dictated with dictation software Content of note will not result in changes in the allergy or medication lists or in changes to the problem list in terms of non-psychological diagnoses. documented in this encounter Plan of Treatment Upcoming Encounters Date Type Department Care Team (Late st Contact Info) Description 11/09/2024 Plan of Care Documentation [address] [address] [address] [place] [address] documented as of this encounter Visit Diagnoses Diagnosis Adjustment disorder with anxious mood- Primary Adjustment disorder with anxiety documented in this encounter Care Teams Aircraft Log Clerk Relationship Specialty Start Date End Date Kirstie Jarrell MD PCP - General 08/29/17 08/06/21 documented as of this encounter
--- OUTSIDE RECORDS SUMMARY | 2024-11-11 19:13 | XMS_ITS | Encounter Summary ---
Author Organization [facility] Address [address] [place] [address] Phone Care Team Providers Care Pulp Grinder And Blender Name Role Phone Kirstie Jarrell MD Primary Care Provider + Encounter Details Date Type Department Care Team (Late st Contact Info) Description 02/27/2021 Orders Only [facility] Gastroenterology [address] 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 Gender Identity Not on file Sexual Orientation Not on file documented as of this encounter Ordered Prescriptions Prescription Sig Dispense Quantity Refills Last Filled Start Date End Date folic acid (FOLVITE) 1 mg tabletIndications: Crohn's disease of both small and large intestine without complication (CMS/HCC) (HCC) Take 1 tablet (1 mg total) by mouth daily 90 tablet 3 02/27/2021 12/14/2022 documented in this encounter Plan of Treatment Upcoming Encounters Date Type Department Care Team (Late st Contact Info) Description 11/09/2024 Plan of Care Documentation [address] [place] [address] documented as of this encounter Visit Diagnoses Diagnosis Crohn's disease of both small and large intestine without complication (CMS/HCC) (HCC) documented in this encounter Discontinued Medications Medication Sig Discontinue Reason Start Date End Da te folic acid (FOLVITE) 1 mg tabletIndications:Crohn's disease of both small and large intestine without complication (CMS/HCC) (HCC) Take 1 tablet (1 mg total) by mouth daily Reorder 11/05/2019 02/27/2021 documented as of this encounter Care Teams Pulp Grinder And Blender Relationship Specialty Start Date End Date Kirstie Jarrell MD PCP - General 08/29/17 08/06/21 documented as of this encounter
--- OUTSIDE RECORDS SUMMARY | 2024-11-11 19:13 | XMS_ITS | Encounter Summary ---
Author Organization [facility] [employer] [facility] Address [address] [place] [address] Phone Care Team Providers Care Hearing Aid Assistant Name Role Phone Kirstie Jarrell MD Primary Care Provider + Encounter Details Date Type Department Care Team (Late st Contact Info) Description 10/24/2020 2:35 PM SOLDER SPRAYER Lab [facility] Oncology [address] [facility] [address] [place] [id number] Crohn's disease of small and large intestines [...] on file 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:34 AM SOLDER SPRAYER Gender Identity Not on file Sexual Orientation Not on file documented as of this encounter Miscellaneous Notes * Result Encounter Note - Paulina Jones MD - 10/29/2020 8:52 AM CST Still low entyvio level - pls submit for Q4 week entyvio ER SPRAYER * Result Encounter Note - Paulina Jones MD - 10/27/2020 8:56 AM CST CBC, LFTs and lipid OK ER SPRAYER documented in this encounter Plan of Treatment Upcoming Encounters Date Type Department Care Team (Late st Contact Info) Description 11/09/2024 Plan of Care Documentation [address] [address] [address] [place] [address] documented as of this encounter Procedures Procedure Name Priority Date/Time Associated Diagnosis Comments VEDOLIZUMAB QN WITH ANTIBODIES, S Routine 10/24/2020 2:35 PM SOLDER SPRAYER Crohn's disease of small and large intestines with complication (CMS/HCC) DIFFERENTIAL AUTO Routine 10/24/2020 2:3 5 PM SOLDER SPRAYER Crohn's disease of small and large intestines with complication (CMS/HCC) CBC WITH AUTO DIFFERENTIAL Routine 10/24/2020 2:35 PM SOLDER SPRAYER Crohn's disease of small and large intestines with complication (CMS/HCC) HEPATIC FUNCTION PANEL Routine 10/24/2020 2:35 PM SOLDER SPRAYER Crohn's disease of small and large intestines with complication (CMS/HCC) LIPID PANEL Routine 10/24/2020 2:35 PM SOLDER SPRAYER Crohn's disease of small and large intestines with complication (CMS/HCC) documented in this encounter Results * Differential, auto (10/24/2020 2:35 PM SOLDER SPRAYER) Neutrophil abs 3.8 1.7 - 6.5 K/cumm [facility] Imm gran abs 0.0 0.0 - 0.1 K/cumm [facility] Lymphocyte abs 2.0 0.8 - 3.3 K/cumm [facility] Monocyte abs 0.5 0.2 - 0.8 K/cumm [facility] Eosinophil abs 0.1 0.0 - 0.5 K/cumm [facility] Basophil abs 0.0 0.0 - 0.1 K/cumm [facility] Neutrophil pct 59.7 % [facility] Comment: Interpretive Data Percent cell count reference ranges are not reported, since discordance with absolute values may lead to misinterpretation of CBC data. Current Interpretive Data was last revised on 2018. Imm gran pct 0.3 % ALDO GO Comment: Interpretive Data Percent cell count reference ranges are not reported, since discordance with absolute values may lead to misinterpretation of CBC data. Current Interpretive Data was last revised on 2018. Lymphocyte pct 30.8 % ALDO GO Comment: Interpretive Data Percent cell count reference ranges are not reported, since discordance with absolute values may lead to misinterpretation of CBC data. Current Interpretive Data was last revised on 2018. Monocyte pct 7.6 % [facility]DO [facility] Comment: Interpretive Data Percent [...] last revised on 2018. Blood specimen (specimen) 10/24/2020 2:35 PM SOLDER SPRAYER 10/24/2020 3:44 PM SOLDER SPRAYER us Paulina Jones MD LAB BLOOD ORDERABLE S Final Result [facility] [address] [facility]. Department [place] [employer] [place] [address] * (ABNORMAL) Vedolizumab QN with Antibodies, S (10/24/2020 2:35 PM SOLDER SPRAYER) Vedolizumab Qn 4.1(L) mcg/mL [facility]DO [facility] Comment: REFERENCE VALUE Lower limit of quantitation = 2.0 mcg/mL ADDITIONAL INFORMATION This test was developed and its performance characteristics determined by [facility] in a manner consistent with CLIA requirements. This test has not been cleared or approved by the U.S. Food and Drug Administration. Vedolizumab Ab <9.8 <9.8 ng/mL ALDO GO Vedolizumab interp See Footnote ALDO BROWN Comment: RESULT: Absence of detectable vfplsefi-tv-evvvrctreak. ADDITIONAL INFORMATION This test was developed and its performance characteristics determined by [facility] in a manner consistent with CLIA requirements. This test has not been cleared or approved by the U.S. Food and Drug Administration. Test Performed by: [facility] [place] [address] Body Former: Barrington Aquino M.D. Ph.D.; CLIA# [id number] Blood specimen (specimen) 10/24/2020 2:35 PM SOLDER SPRAYER 10/24/2020 3:44 PM SOLDER SPRAYER us Paulina Jones MD LAB BLOOD ORDERABLE S Final Result [facility] [address] [facility]. Department [place] [employer] [place] [address] * (ABNORMAL) Lipid panel (10/24/2020 2:35 PM SOLDER SPRAYER) Pathologist [facility] Cholesterol 213(H) 30 - 199 mg/dL ALDO GO Comment: [...] Data was last revised on 2018. Triglycerides 170(H) <=149 mg/dL ALDO GO Comment: Interpretive Data [...] was last revised on 2018. LDL, calculated 141(H) <=129 mg/dL ALDO GO Comment: Interpretive Data [...] was last revised on 2018. Non-HDL Cholesterol 175 mg/dL ALDO GO Comment: Interpretive Data Ages [...] ratio 6 ALDO GO Blood specimen (specimen) 10/24/2020 2:35 PM SOLDER SPRAYER 10/24/2020 3:44 PM SOLDER SPRAYER Paulina Jones MD LAB BLOOD ORDERABLE S Final Result Performing Organization Address [facility]/State/ZIP Co de Phone Number ALDO GO [address] [facility] [employer] [place], [place] [id number] * CBC with auto differential (10/24/2020 2:35 PM SOLDER SPRAYER) WBC 6.3 3.8 - 9.9 K/cumm [facility] Hgb 13.2 13.0 - 17.5 g/dL [facility] Hct 40.5 38.9 - 50.3 % [facility] Plt 295 150 - 400 K/cumm [facility] MPV 10.3 9.1 - 12.3 fL [facility] RBC 4.65 4.30 - 5.80 M/cumm [facility] MCV 87.1 81.3 - 96.4 fL [facility] MCH 28.4 27.1 - 33.3 pg [facility] MCHC 32.6 32.3 - 35.7 g/dL [facility] RDW CV 14.1 11.1 - 14.9 % [facility] RDW SD 44.1 35.7 - 48.1 fL [facility] NRBC abs 0.00 0.00 - 0.01 K/cumm [facility] Blood specimen (specimen) 10/24/2020 2:35 PM SOLDER SPRAYER 10/24/2020 3:44 PM SOLDER SPRAYER Paulina Jones MD LAB BLOOD ORDERABLE S Final Result Performing Organization Address City/[facility]/ZIP Co de Phone Number ALDO GO [address] [facility] [employer] [place], [place] [id number] * Hepatic function panel (10/24/2020 2:35 PM SOLDER SPRAYER) Bilirubin, total 0.6 0.1 - 1.2 mg/dL [facility] Bilirubin, direct <0.2 0.1 - 0.3 mg/dL [facility] Protein, pl 7.5 6.5 - 8.5 g/dL [facility] Albumin 4.6 3.5 - 5.0 g/dL [facility] Alk phos 58 40 - 130 Units/L [facility] ALT 32 7 - 55 Units/L [facility] AST 30 10 - 50 Units/L [facility] Blood specimen (specimen) 10/24/2020 2:35 PM SOLDER SPRAYER 10/24/2020 3:44 PM SOLDER SPRAYER us Paulina Jones MD LAB BLOOD ORDERABLE S Final Result ALDO MONTELON[facility] [address] [facility]. Department [place] [address] documented in this encounter Visit Diagnoses Diagnosis Crohn's disease of small and large intestines with complication (HCC) documented in this encounter Care Teams Hearing Aid Assistant Relationship Specialty Start Date End Date Kirstie Jarrell MD PCP - General 08/29/17 08/06/21 documented as of this encounter
--- OUTSIDE RECORDS SUMMARY | 2024-11-11 19:13 | XMS_ITS | Encounter Summary ---
Author Organization [facility] Address [address] [place] [address] Phone Care Team Providers Care Veterinary Toxicologist Name Role Phone Kirstie Jarrell MD Primary Care Provider + Encounter Details Date Type Department Care Team (Late st Contact Info) Description 05/29/2021 Telephone [facility] [address] [facility] [place] [address] Petra Bowman, PhD [address] 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 We talked about how it would not be good for him to develop the mindset of feeling that he needs the medication as a security blanket when he gets anxious about certain situations or events. We talked about the nonpharmacological things he can do when he is in a situation wherehe thinks that he might want to take a Xanax. He will counter his catastrophizing thoughts. He willdo some diaphragmatic breathing and he will think of imagery from the guided imagery recordings that he finds relaxing (beach imagery, peaceful river imagery). We talked about how the Xanax does not really get rid of all of his anxiety anyway and that the more he practices the nonpharmacological techniques, the more effective they will be. documented in this encounter Plan of Treatment Upcoming Encounters Date Type Department Care Team (Late st Contact Info) Description 11/09/2024 Plan of Care Documentation [address] [address] [address] [place] [address] documented as of this encounter Visit Diagnoses Not on filedocumented in this encounter Care Teams Veterinary Toxicologist Relationship Specialty Start Date End Date Kirstie Jarrell MD PCP - General 08/29/17 08/06/21 documented as of this encounter
--- OUTSIDE RECORDS SUMMARY | 2024-11-11 19:13 | XMS_ITS | Encounter Summary ---
Author Organization [facility] [employer] [facility] Address [address] [place] [address] Phone Care Team Providers Care Color Expert Name Role Phone Kirstie Jarrell MD Primary Care Provider + Encounter Details Date Type Department Care Team (Late Contact Info) Description 09/03/2020 Orders Only [facility] Gastroenterology [address] [facility] 8th [place] [address] [place] [address] Rita Lama RN Social History Tobacco Use Types Packs/Day Years Used Date Smoking Tobacco: Former Cigarettes Q uit: 2005 Smokeless Tobacco: Never Alcohol Use Standard Drinks/Week Comments Yes 0 (1 standard drink = 0.6 oz pur e alcohol) occasional Sex and Gender Information Value Date Recorded Sex Assigned at Not on file 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
--- OUTSIDE RECORDS SUMMARY | 2024-11-11 19:13 | XMS_ITS | Encounter Summary ---
Author Organization [facility] [employer] [facility] Address [address] [place] [address] Phone Care Team Providers Care Rn Angiography Name Role Phone Kirstie Jarrell MD Primary Care Provider + Reason for Visit * Episode Based Medications (Routine) - Closed Specialty Diagnoses / Procedures Referred By Med bazan Referred To Contact Diagnoses Crohn's disease of small and large intestines with complication (HCC) Procedures MT INJECTION, VEDOLIZUMAB Paulina Jones MD [address] [place] [address] Phone: tel: fax: [facility] [address] [place] [address] [address] [place] [address] Phone: tel: fax: Referral ID Status Reason Start Date Expiration Date Visits Re quested Visits Authorized [id number] Closed 11/03/2020 11/03/2022 99 99 Encounter Details Date Type Department Care Team (Late st Contact Info) Description 01/02/2021 12:30 PM BRUSH CUTTER Infusion [facility] [address] [place] [address] [address] [place] [address] Crohn's disease of small and [...] on file 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:34 AM BRUSH CUTTER Gender Identity Not on file Sexual Orientation Not on file documented as of this encounter Last Filed Vital Signs Vital Sign Reading Time Taken Comments Blood Pressure 156/92 01/02/2021 1:31 PM BRUSH CUTTER Pulse 71 01/02/2021 1:31 PM BRUSH CUTTER Temperature 36.4 ??C (97.6 ??F) 01/02/2021 1:31 PM CS T Respiratory Rate - - Oxygen Saturation - - Inhaled Oxygen Concentration - - Weight - - Height - - Body Mass Index - - documented in this encounter Progress Notes * Danna Yin RN - 01/02/2021 12:30 PM CST Pt here today for Entyvio infusion. Pt states that he feels well today and has not had any recent fevers or infections. PIV started and labs drawn with no difficulties. Pt tolerated well. Will continue to monitor. Infusion completed at 1331. Pt tolerated well.Pt has no questions or concerns at the time of discharge H CUTTER documented in this encounter Miscellaneous Notes * Addendum Note - Maria Dolores Jolley - 01/02/2021 12:30 PM CSTAddended by: MARIA DOLORES JOLLEY on: 01/02/2021 02:30 PM Modules accepted: Orders H CUTTER documented in this encounter Plan of Treatment Upcoming Encounters Date Type Department Care Team (Late st Contact Info) Description 11/09/2024 Plan of Care Documentation [facility] [address] [address] [address] [place] [address] documented as of this encounter Results * (ABNORMAL) Lipid panel (01/02/2021 2:31 PM BRUSH CUTTER) [facility] Signature Cholesterol 208(H) 30 - 199 mg/dL ALDO BJW Comment: Interpretive Data Ages < or = [...] Data was last revised on 2018. Triglycerides 159(H) <=149 mg/dL ALDO GO Comment: Interpretive Data [...] Data was last revised on 2018. HDL 36(L) >=40 mg/dL ALDO GO Comment: Interpretive Data [...] was last revised on 2018. LDL, calculated 140(H) <=129 mg/dL ALDO GO Comment: Interpretive Data [...] was last revised on 2018. Non-HDL Cholesterol 172 mg/dL ALDO GO Comment: Interpretive Data Ages [...] revised on 2018. Chol/HDL ratio 6 [facility] Blood specimen (specimen) 01/02/2021 2:31 PM BRUSH CUTTER 01/02/2021 2:58 PM BRUSH CUTTER us Paulina Jones MD LAB BLOOD ORDERABLE S Final Result [facility]DO [facility] [address] [facility] Department [place] [address] documented in this encounter Visit Diagnoses Diagnosis Crohn's disease of small and large intestines with complication (HCC)- Primary documented in this encounter Administered Medications Inactive Administered Medications - up to 3 most recent administrations Medication Order MAR Action Action Date Dose Rate Site sodium chloride 0.9% flush 10 mL 10 mL, intravenous, As needed, line care, Starting on Tue01/02/21 at 1235, Flush pre and post IV catheter use.Indications:Crohn's disease of small and large intestines with complication (HCC) Given 01/02/2021 12:50 PM BRUSH CUTTER 10 mL vedolizumab (ENTYVIO) 300 mg in sodium chloride 0.9% 250 mL IVPB 300 mg, intravenous, at 510 mL/hr, Administer over 30 Minutes, Once, On Tue01/02/21 at 1345, For 1 doseIndications:Crohn's disease of small and large intestines with complication (HCC) New Bag 01/02/2021 12:57 PM BRUSH CUTTER 300 mg 510 mL/hr documented in this encounter Orders Nursing Count Last Ordered Date First Orde red Date ONCBCN PROVIDER COMMUNICATION 1 1 VITAL SIGNS PRE-INFUSION 1 01/02/2021 Appointment Requests Count Last Ordered Date Fi rst Ordered Date INFUSION APPT REQUEST 60 MIN 1 02/27/2021 documented in this encounter Care Teams Rn Angiography Relationship Specialty Start Date End Date Kirstie Jarrell MD PCP - General 08/29/17 08/06/21 documented as of this encounter
--- OUTSIDE RECORDS SUMMARY | 2024-11-11 19:13 | XMS_ITS | Encounter Summary ---
Author Organization [facility] Healthcare Address [address] [place] [address] Care Team Providers Care Meal Cooker Name Role Phone Kirstie Jarrell MD Primary Care Provider + Encounter Details Date Type Department Care Team (Late st Contact Info) Description 08/07/2021 7:32 AM CDT - 08/07/2021 10:29 AM CDT Hospital Encounter 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 Gender Identity Not on file Sexual Orientation Not on file documented as of this encounter Last Filed Vital Signs Vital Sign Reading Time Taken Comments Blood Pressure 123/76 08/07/2021 9:50 AM CDT Pulse 49 08/07/2021 9:50 AM CDT Temperature 36.1 ??C (97 ??F) 08/07/2021 9:30 AM CDT Respiratory Rate 19 08/07/2021 9:50 AM CDT Oxygen Saturation 98% 08/07/2021 9:50 AM CDT Inhaled Oxygen Concentration - - Weight 108.9 kg (240 lb) 08/07/2021 7:55 AM CDT Height 190.5 cm (6' 3 ) 08/07/2021 7:55 AM CDT Body Mass Index 30 08/07/2021 7:55 AM CDT documented in this encounter Discharge Diagnoses Diagnosis Encounter for screening for malignant neoplasm of colon - ENCOUNTER FOR SCREENING FOR MALIGNANT NEOPLASM OF COLON Crohn's disease of large intestine without complications (HCC) - CROHN'S DISEASE OF LARGE INTESTINE WITHOUT COMPLICATIONS Other specified diseases of anus and rectum - OTHER SPECIFIED DISEASES OF ANUS AND RECTUM Personal history of nicotine dependence - PERSONAL HISTORY OF NICOTINE DEPENDENCE Family history of diabetes mellitus - FAMILY HISTORY OF DIABETES MELLITUS Allergy status to other drugs, medicaments and biological substances - ALLERGY STATUS TO OTHER DRUGS, MEDICAMENTS AND BIOLOGICAL SUBSTANCES Other snf (current) drug therapy - OTHER SPONGE CLIPPER (CURRENT) DRUG THERAPY terminal make up operator (current) use of systemic steroids - SPONGE CLIPPER (CURRENT) USE OF SYSTEMIC STEROIDS documented in this encounter Discharge Instructions * Attachments The following attachments cannot be sent through Care Everywhere. * Colonoscopy (Discharge Care) ([place]) documented in this encounter Medications at Time of Discharge ALPRAZolam (XANAX) 0.25 mg tabletIndications: Anxiety Take 1 tablet (0.25 mg total) by mouth daily as needed for anxiety. 15 tablet 05/26/2021 4 folic acid (FOLVITE) 1 mg tabletIndications: Crohn's disease of both small and large intestine without complication (CMS/HCC) (HCC) Take 1 tablet (1 mg total) by mouth daily 90 tablet 3 02/27/2021 3 tofacitinib (Xeljanz) 10 mg tabletIndications: Crohn's disease of small and large intestines with complication (HCC) Take 1 tablet (10 mg total) by mouth 2 (two) times a day Safety labs required every 3 months for med refills, next labs due ~ 07/2021. (CBC, LFT, Lipid Panel). 60 tablet 5 04/27/2021 2 vedolizumab (ENTYVIO) 300 mg recon soln Infuse 300 mg into a venous catheter every 4 (four) weeks Every 4 weeks as of 10/28/2020 based on low drug level At [facility] 2 budesonide (Uceris) 2 mg/actuation foamIndications:Cr ohn's disease of both small and large intestine with intestinal obstruction (HCC) Insert into the rectum 1 metered dose(2 mg) twice daily for 2 weeks 1 Can 1 03/25/2020 2 budesonide 2 mg/actuation foamIndications:Cr ohn's disease of both small and large intestine with intestinal obstruction (HCC) Insert 1 application into the rectum daily for 30 days. 33.4 g 08/07/2021 2 ergocalciferol (VITAMIN D) 50,000 unit capsuleIndications :Low vitamin D level Take 1 cap PO monthly 12 capsule 07/23/2020 2 hydrocortisone (CORTENEMA) 100 mg/60 mL enemaIndications:U lcerative Colitis Insert 1 enema (100 mg total) into the rectum nightly as needed for 30 days. 30 enema 08/07/2021 2 hydrocortisone-pra moxine (PROCTOFOAM-HC) rectal foamIndications:Pr uritus Ani [The details of the medication are not available because there are pending changes by a home health clinician.] 10 g 1 12/28/2019 3 documented as of this encounter Discharge Disposition Disposition Code Departure Means Destination Discharge to home or self care documented in this encounter H&P Notes * Paulina Jones MD - 08/05/2021 3:38 PM CDT Pre Endoscopy History and Physical Ranjit Peralta is a 40 y.o. male who is here for Procedure(s): COLONOSCOPY The indication(s) for the procedure(s): ibd. Past Medical History: Diagnosis Date ??? Anal abscess Perianal abscess - (Added by Conv) ??? Anal fistula Anal fistula - (Added by TW Conv) ??? Crohn's disease (CMS/HCC) (HCC) Past Surgical History: Procedure Laterality Date ??? ABCESS DRAINAGE 04/06/2013 ??? ANAL FISTULOTOMY 08/22/2013 Social History Tobacco Use ??? Smoking status: Former Smoker Quit date: 2004 Years since quittin.7 ??? Smokeless tobacco: Never Used Substance Use Topics ??? Alcohol use: Yes Comment: occasional Family History Problem Relation Age of Onset ??? Diabetes Maternal Grandfather Family history of diabetes mellitus - (Added by Conv)/Family history of diabetes mellitus - (Added by Conv) ??? Cancer Maternal Grandmother Allergies Allergen Reactions ??? Mercaptopurine Analogues (Thiopurines) Joint pain Severe gout like joint pain that starts within days of taking medicine Prior to Admission medications Medication Sig Start Date End Date Taking? Authorizing Provider ALPRAZolam (XANAX) 0.25 mg tablet Take 1 tablet (0.25 mg total) by mouth daily as needed for anxiety. 05/26/21 Paulina Jones MD budesonide (Uceris) 2 mg/actuation foam Insert into the rectum 1 metered dose(2 mg) twice daily for2 weeks 03/25/20 Paulina Jones MD ergocalciferol (VITAMIN D) 50,000 unit capsule Take 1 cap PO monthly 07/23/20 Paulina Jones MD folic acid (FOLVITE) 1 mg tablet Take 1 tablet (1 mg total) by mouth daily 02/27/21 02/27/22 Paulina Jones MD hydrocortisone-pramoxine (PROCTOFOAM-HC) rectal foam Insert 1 applicator into the rectum 2 (two) times a day 12/28/19 Paulina Jones MD anmfhjqg-aajudtnjq-fxqgbpbukjbuy (MAXITROL) 3.5mg/mL-10,000 unit/mL-0.1 % ophthalmic suspension INSTILL 1 GTT TO OS BID 10/26/18 ProviderMelissa MD tofacitinib (Xeljanz) 10 mg tablet Take 1 tablet (10 mg total) by mouth 2 (two) times a day Safety labs required every 3 months for med refills, next labs due ~ 07/2021. (CBC, LFT, Lipid Panel). 04/27/21 Paulina Jones MD vedolizumab (ENTYVIO) 300 mg recon soln Infuse 300 mg into a venous catheter every 4 (four) weeks Every 4 weeks as of 10/28/2020 based on low drug level At [facility] ProviderMelissa MD Review of Systems A pertinent, focused review of systems was completed and negative, except as noted above. OBJECTIVE: Vitals: There were no vitals filed for this visit. Physical Exam: Airway: No significant abnormality. Cardiac: No significant abnormality. Pulmonary: no sig abn. Neurological: No significant abnormality. Gastrointestinal: No significant abnormality. ASA Score: per Anesthesia Sedation/Anesthesia Plan: per Anesthesia The risks and complications of the procedure have been explained to the patient. Informed consent was signed. Impression and plan: Will proceed with the planned procedure for the reasons stated above. documented in this encounter Procedure Notes * Paulina Jones MD - 08/07/2021 8:45 AM CDTAssociated Order(s): COLONOSCOPY ENDOSCOPY LAB Patient Name: Ranjit Peralta Procedure Date: 08/07/2021 8:45 AM Date of : 1980 Admit Type: Outpatient Age: 40 Gender: Male Attending MD: Paulina Jones M.D. Room: [facility] ENDOSCOPY ROOM 01 Note Status: Finalized Procedure: Colonoscopy Indications: High risk colon cancer surveillance: Crohn's colitis of 8 (or more) years duration with one-third (or more) of the colon involved, on Entyvio Q4wks and Xeljanz 10mg BID Providers: Paulina Jones M.D. Referring MD: Kirstie Jarrell M.D. Medicines: Monitored Anesthesia Care, See the Anesthesia note for documentation of the administered medications Complications: No immediate complications. Estimated Blood Loss: Estimated blood loss was minimal. Procedure: Pre-Anesthesia Assessment: - The risks and benefits of the procedure and the sedation options and risks were discussed with the patient. All questions were answered and informed consent was obtained. - Pre-procedure physical examination revealed no contraindications to sedation. - After reviewing the risks and benefits, the patient was deemed in satisfactory condition to undergo the procedure. - Immediately prior to administration of medications, the patient was re-assessed for adequacy to receive sedatives. The benefits, risks and alternatives of the procedure and sedation were discussed and informed consent was obtained. All questions were answered. Please refer to the signed informed consent document in the medical record. The scope was passed under direct vision. The [id number] was introduced through the anus and advanced to the terminal ileum, with identification of the appendiceal orifice and IC valve. The colonoscopy was performed without difficulty. The patient tolerated the procedure well. The quality of the bowel preparation was excellent. The quality of the bowel preparation was excellent. Bowel prep was administered using a split dose. Findings: The perianal and digital rectal examinations were normal. The Simple Endoscopic Score for Crohn's Disease was determined based on the endoscopic appearance of the mucosa in the following segments: - Ileum: Findings include aphthous ulcers less than 0.5 cm in size, less than 10% ulcerated surfaces, less than 50% of surfaces affected and a single narrowing that can be passed. Segment score: 4. - Right Colon: Findings include no ulcers present, no ulcerated surfaces, no affected surfaces and no narrowings. Segment score: 0. - Transverse Colon: Findings include no ulcers present, no ulcerated surfaces, no affected surfaces and no narrowings. Segment score: 0. - Left Colon: Findings include aphthous ulcers less than 0.5 cm in size, less than 10% ulcerated surfaces, less than 50% of surfaces affected and no narrowings. Segment score: 3. - Rectum: Findings include ulcers greater than 2 cm in size, greater than 30% ulcerated surfaces, greater than 75% of surfaces affected and no narrowings. Segment score: 9. - Total SES-CD aggregate score: 16. Contrast chromoscopy with methylene blue was performed using spray chromoendoscopy technique. The ileocecal valve contained a benign-appearing, intrinsic moderate stenosis measuring 3 cm (in length) x 1.1 cm (inner diameter), dilated to 13.5mm with TTS dilator. No immediate complications. Retroflexion not performed in setting of severe proctitis Impression: - Simple Endoscopic Score for Crohn's Disease: 16, mucosal inflammatory changes. Chromoscopy performed. - Active Crohn's disease characterized by severe proctitis and mild TI ulceration. - Stricture at the ileocecal valve, dilated to 13.5mm using TTS balloon dilator. - No specimens collected. Recommendation: - Discharge patient to home (ambulatory). - Resume previous diet. - Return to GI clinic as previously scheduled. - We will prescribe uceris foam and will discuss the next step in treatment. Will consider adding on a thiopurine with allopurinol while continuing Entyvio but will further discuss with patient. - Contact Information: During normal business hours - Please call the Nurse Coordinator: [phone] After hours, evening, nights, weekends and holidays - Please call the hospital fiberglass container winding operator at and ask for the GI fellow credit front office developer. Attending Participation: I personally performed the entire procedure. Electronically signed by Paulina Jones M.D. Paulina Jones M.D. 08/07/2021 9:39:34 AM Number of Addenda: 0 Note Initiated On: 08/07/2021 8:45 AM documented in this encounter Miscellaneous Notes * Perioperative Nursing Note - Katie Pace, RN - 08/07/2021 10:[address] Joens spoke with patient and spouse re: findings. Discharge instructions given - questions answered, understanding expressed. Tolerating po w/o problems. * Perioperative Nursing Note - Katie Pace RN - 08/07/2021 9:40 AM CDT Awaiting director of agronomy to discuss findings. Discharge instructions given to patient, and family .Understanding expressed, questions answered. Tolerating po fluids. * Pre-Procedure Instructions - Clara Townsend RN - 08/06/2021 4:00 PM CDT Please follow any and all instruction you were given re:Bowel prep When you arrive, please come to [facility] hospital entrance. As you enter there will be an information desk, let them know you are here for a procedure and theywill direct you to the registration area. Once registered one of the endoscopy nurses will come to get you ready for your procedure Dress comfortable, please leave any valuables at home, gio. mayes, jewelry For your safety due to the anesthesia, you will not be able to drive. Please have a ride arranged to and from hospital with a responsible adult- someone who knows you andcan care for you Please no form of public transportation or transportation service by yourself will be allowed At any entrance to the building you will be screened for Covid symptoms, Covid exposure, and have your temp. taken. You are required to wear a mask at all times I want to reassure you all staff are screened as we come in, and we do wear mask at all times. You are allowed one person to accompany you into the building. This person will be screened and required to wear a mask at all times If this person(your pick up and delivery driver)chooses not to come inside or will be picking you up after your procedure with anesthesia, for your safety we will confirm your ride home by phone call prior to your procedure start time documented in this encounter Plan of Treatment Upcoming Encounters Date Type Department Care Team (Late st Contact Info) Description 11/09/2024 Plan of Care Documentation [address] [address] [address] [place] [address] documented as of this encounter Procedures Procedure Name Priority Date/Time Associated Diagnosis Comments COLONOSCOPY 08/07/2021 8:45 AM CDT COLON DILATION 10R>STRICT 08/07/2021 8:42 AM CDT Crohn's disease of both small and large intestine without complication (CMS/HCC) (HCC) T-SPOT.TB Routine 08/07/2021 8:23 AM CDT Crohn's disease of both small and large intestine without complication (CMS/HCC) (HCC) High risk medications (not anticoagulants) long-term use documented in this encounter Results * COLONOSCOPY (08/07/2021 8:45 AM CDT) Anatomical Region Laterality Modality Other Narrative Procedure Note Paulina Jones MD - 08/07/2021 8:45 AM CDT ENDOSCOPY LAB Patient Name: Ranjit Peralta Procedure Date: 08/07/2021 8:45 AM Date of : 1980 Admit Type: Outpatient Age: 40 Gender: Male Attending MD: Paulina Jones M.D. Room: [facility] ENDOSCOPY ROOM 01 Note Status: Finalized Procedure: Colonoscopy Indications: High risk colon cancer surveillance: Crohn'scolitis of 8 (or more) years duration with one-third (ormore) of the colon involved, on Entyvio Q4wks and Xeljanz 10mg BID Providers: Paulina Jones M.D. Referring MD: Kirstie Jarrell M.D. Medicines: Monitored Anesthesia Care, See the Anesthesia notefor documentation of the administered medications Complications: No immediate complications. Estimated Blood Loss: Estimated blood loss was minimal. Procedure: Pre-Anesthesia Assessment: - The risks and benefits of the procedure and the sedation options and risks were discussed with the patient. All questions were answered and informed consent was obtained. - Pre-procedure physical examination revealed no contraindications to sedation. - After reviewing the risks and benefits, thepatient was deemed in satisfactory condition to undergo the procedure. - Immediately prior to administration ofmedications, the patient was re-assessed for adequacy to receive sedatives. The benefits, risks and alternatives of theprocedure and sedation were discussed and informed consentwas obtained. All questions were answered. Please referto the signed informed consent document in the medical record. The scope was passed under direct vision.The [id number] was introduced through the anusand advanced to the terminal ileum, with identificationof the appendiceal orifice and IC valve. Thecolonoscopy was performed without difficulty. The patient tolerated the procedure well. The quality of thebowel preparation was excellent. The quality of the bowel preparation was excellent. Bowel prep wasadministered using a split dose. Findings: The perianal and digital rectal examinations were normal. The Simple Endoscopic Score for Crohn's Disease was determined basedon the endoscopic appearance of the mucosa in the following segments: - Ileum: Findings include aphthous ulcers less than 0.5 cm in size,less than 10% ulcerated surfaces, less than 50% of surfaces affected and a single narrowing that can be passed. Segment score: 4. - Right Colon: Findings include no ulcers present, no ulcerated surfaces, no affected surfaces and no narrowings. Segment score: 0. - Transverse Colon: Findings include no ulcers present, no ulcerated surfaces, no affected surfaces and no narrowings. Segment score: 0. - Left Colon: Findings include aphthous ulcers less than 0.5 cm insize, less than 10% ulcerated surfaces, less than 50% of surfaces affectedand no narrowings. Segment score: 3. - Rectum: Findings include ulcers greater than 2 cm in size, greater than 30% ulcerated surfaces, greater than 75% of surfaces affectedand no narrowings. Segment score: 9. - Total SES-CD aggregate score: 16. Contrast chromoscopy withmethylene blue was performed using spray chromoendoscopy technique. The ileocecal valve contained a benign-appearing, intrinsic moderate stenosis measuring 3 cm (in length) x 1.1 cm (inner diameter),dilated to 13.5mm with TTS dilator. No immediate complications. Retroflexion not performed in setting of severe proctitis Impression: - Simple Endoscopic Score for Crohn's Disease: 16, mucosal inflammatory changes. Chromoscopyperformed. - Active Crohn's disease characterized by severe proctitis and mild TI ulceration. - Stricture at the ileocecal valve, dilated to13.5mm using TTS balloon dilator. - No specimens collected. Recommendation: - Discharge patient to home (ambulatory). - Resume previous diet. - Return to GI clinic as previously scheduled. - We will prescribe uceris foam and will discussthe next step in treatment. Will consider adding on a thiopurine with allopurinol while continuingEntyvio but will further discuss with patient. - Contact Information: During normal business hours - Please call theNurse Coordinator: [phone] After hours, evening, nights, weekends and holidays- Please call the hospital fiberglass container winding operator at and ask for the GI fellow credit front office developer. Attending Participation: I personally performed the entire procedure. Electronically signed by Paulina Jones M.D. Paulina Jones M.D. 08/07/2021 9:39:34 AM Number of Addenda: 0 Note Initiated On: 08/07/2021 8:45 AM us Paulina Jones MD ENDOSCOPY PROCEDURE S Final Result * T-SPOT.TB (08/07/2021 8:23 AM CDT) T-SPOT.TB Negative SeeBelow ALDO GO Comment: Normal Value: Negative A negative test [...] test. T-SPOT.TB Panel A Spot Count 0 CERNER ABBI T-SPOT.TB Panel B Spot Count 0 CERNER PAULWCH T-SPOT.TB Negative Control Passed CERNER ABBI T-SPOT.TB Positive Control Passed CERLOLY GO Comment: Test Performed at: [facility] [id number] [place], [place] ??[id number] ? LIANA HURTADO MD,PHD Blood 08/07/2021 8:23 AM CDT 08/07/2021 8:29 AM CDT Paulina Jones MD LAB MICROBIOLOGY - GENERAL ORDERABLES Final Result ALDO [facility] [address] [facility] Department [place] [address] documented in this encounter Visit Diagnoses Diagnosis Crohn's disease of both small and large intestine without complication (CMS/HCC) (HCC)- Primary High risk medications (not anticoagulants) long-term use Encounter for long-term (current) use of other medications documented in this encounter Administered Medications Inactive Administered Medications - up to 3 most recent administrations Medication Order MAR Action Action Date Dose Rate Site sodium chloride 0.9% flush 0.5-20 mL 0.5-20 mL, intra-catheter, As needed, line care, Starting on Tue08/07/21 at 0805, Pre-Procedure (GI), Flush volume based on line type and size. Flush before and after each use. , Indications: FlushingIndications:Flushing sodium chloride 0.9% infusion 30 mL/hr, intravenous, Continuous, Starting on Tue08/07/21 at 0845, Pre-Procedure (GI) Restarted 08/07/2021 8:46 AM CDT Rate/Dose Verify 08/07/2021 8:42 AM CDT 30 mL/h r New Bag 08/07/2021 8:24 AM CDT 30 mL/hr 30 mL/hr documented in this encounter Discontinued Medications Medication Sig Discontinue Reason Start Date End Da te negeagzy-ebvuqtdgo-dtnaq ethasone (MAXITROL) 3.5mg/mL-10,000 unit/mL-0.1 % ophthalmic suspension INSTILL 1 GTT TO OS BID Therapy completed 09/01/2018 08/07/2021 documented as of this encounter Active and Recently Administered Medications Times are shown in CDT. Continuous Medication Order 08/05/2021 08/06/2021 08/07/2021 sodium chloride 0.9% infusion 30 mL/hr, intravenous, Continuous, Starting on Tue08/07/21 at 0845, Pre-Procedure (GI) 0824 (New Bag - Prov ider: Sam Martinez RN)0842 (Rate/Dose Verify - Provider: Shawnee Polk CRNA)0845 (Paused - Provider: Shawnee Polk CRNA - Comment: Switch to gravity)0846 (Restarted - Provider: Shawnee Polk CRNA)0924 (Anesthesia Volume Adjustment - Provider: Shawnee Polk CRNA)0945 (Stopped - Provider: Katie Pace RN) PRN Medication Order 08/05/2021 08/06/2021 08/07/2021 methylene blue (PROVAYBLUE) (0.5%) injection (CANCELED) Administer over 20 Minutes, As needed, Starting on Tue08/07/21 at 0853, Intra-Op 0853 (Given - Provid er: Lewis Richardson MD) ondansetron (ZOFRAN) injection 4 mg 4 mg, intravenous, Administer over 2 Minutes, Every 30 min PRN, nausea, vomiting, Starting on Tue08/07/21 at 0945, For 2 doses, Recovery (GI), Indications: Nausea and Vomiting sodium chloride 0.9% flush 0.5-20 mL 0.5-20 mL, intra-catheter, As needed, line care, Starting on Tue08/07/21 at 0805, Pre-Procedure (GI), Flush volume based on line type and size. Flush before and after each use. , Indications: Flushing documented in this encounter Orders Medications Ordered That Steven ht Not Have Been Administered Count Last Ordered Date First Ordered Date methylene blue (PROVAYBLUE) (0.5%) injection 1 08/07/2021 ondansetron (ZOFRAN) injection 4 mg 1 08/07 sodium chloride 0.9% flush 0.5-20 mL 1 11/2020 documented in this encounter Care Teams Meal Cooker Relationship Specialty Start Date End Date Kirstie Jarrell MD [address] [place] [address] DR WITT [address] [place] [id number] PCP - General 08/07/21 12/10/21 documented as of this encounter
--- OUTSIDE RECORDS SUMMARY | 2024-11-11 19:13 | XMS_ITS | Encounter Summary ---
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 Gender Identity Not on file Sexual Orientation Not on file documented as of this encounter Miscellaneous Notes * Result Encounter Note - Paulina Jones MD - 09/01/2020 8:12 AM CDT LFTs and lipid panel OK * Result Encounter Note - Paulina Jones MD - 08/29/2020 3:08 PM CDT CBC OK documented in this encounter Plan of Treatment Upcoming Encounters Date Type Department Care Team (Late st Contact Info) Description 11/09/2024 Plan of Care Documentation [address] [place] [address] documented as of this encounter Procedures Procedure Name Priority Date/Time Associated Diagnosis Comments DIFFERENTIAL AUTO Routine 08/29/2020 2:0 9 PM CDT Crohn's disease of small and large intestines with complication (CMS/HCC) CBC WITH AUTO DIFFERENTIAL Routine 08/29/2020 2:09 PM CDT Crohn's disease of small and large intestines with complication (CMS/HCC) HEPATIC FUNCTION PANEL Routine 08/29/2020 2:09 PM CDT Crohn's disease of small and large intestines with complication (CMS/HCC) LIPID PANEL Routine 08/29/2020 2:09 PM CDT Crohn's disease of small and large intestines with complication (CMS/HCC) documented in this encounter Results * Differential, auto (08/29/2020 2:09 PM CDT) Neutrophil abs 5.4 1.7 - 6.5 K/cumm [facility] Imm [...] was last revised on 2018. Lymphocyte pct 21.3 % [facility] [place] Comment: Interpretive Data Percent cell count reference ranges are not reported, since discordance with absolute values may lead to misinterpretation of CBC data. Current Interpretive Data was last revised on 2018. Monocyte pct 7.1 % [facility] Comment: Interpretive Data Percent cell count reference ranges are not reported, since discordance with absolute values may lead to misinterpretation of CBC data. Current Interpretive Data was last revised on 2018. Eosinophil pct 0.9 % [facility] Comment: Interpretive Data Percent cell count reference ranges are not reported, since discordance with absolute values may lead to misinterpretation of CBC data. Current Interpretive Data was last revised on 2018. Basophil pct 0.1 % [facility] Comment: Interpretive Data Percent cell count reference ranges are not reported, since discordance with absolute values may lead to misinterpretation of CBC data. Current Interpretive Data was last revised on 2018. Blood specimen (specimen) 08/29/2020 2:09 PM CDT 08/29/2020 2:49 PM CDT us Paulina Jones MD LAB BLOOD ORDERABLE S Final Result [facility] [id number] [facility] Department [place] [address] * (ABNORMAL) CBC with auto differential (08/29/2020 2:09 PM CDT) WBC 7.6 3.8 - 9.9 K/cumm [facility] Hgb 12.4(L) 13.0 - 17.5 g/dL [facility] Hct 39.2 38.9 - 50.3 % [facility] Plt 253 150 - 400 K/cumm [facility] MPV 10.4 9.1 - 12.3 fL [facility] RBC 4.47 4.30 - 5.80 M/cumm [facility] MCV 87.7 81.3 - 96.4 fL [facility] MCH 27.7 27.1 - 33.3 pg [facility] MCHC 31.6(L) 32.3 - 35.7 g/dL [facility] RDW CV 14.0 11.1 - 14.9 % [facility] RDW SD 45.5 35.7 - 48.[address] [facility] NRBC abs 0.00 0.00 - 0.01 K/cumm [facility] Blood specimen (specimen) 08/29/2020 2:09 PM CDT 08/29/2020 2:49 PM CDT Paulina Jones MD LAB BLOOD ORDERABLE S Final Result Performing Organization Address [facility] de Phone Number [facility] [id number] [place] [address] * Hepatic function panel (08/29/2020 2:09 PM CDT) Bilirubin, total 0.6 0.1 - 1.2 mg/dL [facility] Bilirubin, direct <0.2 0.1 - 0.3 mg/dL [facility] Protein, pl 6.9 6.5 - 8.5 g/dL [facility] Albumin 4.2 3.5 - 5.0 g/dL [facility] Alk phos 59 40 - 130 Units/L [facility] ALT 27 7 - 55 Units/L [facility] AST 26 10 - 50 Units/L [facility] Blood specimen (specimen) 08/29/2020 2:09 PM CDT 08/29/2020 2:49 PM CDT Paulina Jones MD LAB BLOOD ORDERABLE S Final Result Performing Organization Address [facility] Co de Phone Number [facility] [address] [place] [address] * (ABNORMAL) Lipid panel (08/29/2020 2:09 PM CDT) [facility] Signature Cholesterol 181 30 - 199 mg/dL [facility] Comment: [...] Data was last revised on 2018. Triglycerides 194(H) <=149 mg/dL [facility] Comment: Interpretive Data [...] Data was last revised on 2018. HDL 32(L) >=40 mg/dL [facility] Comment: Interpretive Data [...] was last revised on 2018. LDL, calculated 110 <=129 mg/dL [facility] Comment: Interpretive Data [...] was last revised on 2018. Non-HDL Cholesterol 149 mg/dL [facility] Comment: Interpretive Data Ages [...] revised on 2018. Chol/HDL ratio 6 [facility] Blood specimen (specimen) 08/29/2020 2:09 PM CDT 08/29/2020 2:49 PM CDT Paulina Jones MD LAB BLOOD ORDERABLE S Final Result [facility] [id number] [facility] Department [place] [address] documented in this encounter Visit Diagnoses Diagnosis Crohn's disease of small and large intestines with complication (HCC) documented in this encounter Care Teams Recyclable Products Sorter Relationship Specialty Start Date End Date Kirstie Jarrell MD PCP - General 08/29/17 08/06/21 documented as of this encounter
--- OUTSIDE RECORDS SUMMARY | 2024-11-11 19:13 | XMS_ITS | Encounter Summary ---
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 Gender Identity Not on file Sexual Orientation Not on file documented as of this encounter Plan of Treatment Upcoming Encounters Date Type Department Care Team (Late st Contact Info) Description 11/09/2024 Plan of Care Documentation [address] [address] [address] [place] [address] documented as of this encounter Procedures Procedure Name Priority Date/Time Associated Diagnosis Comments DIFFERENTIAL AUTO Routine 02/27/2021 12: 50 PM CDT Crohn's disease of small and large intestines with complication (CMS/HCC) CBC WITH AUTO DIFFERENTIAL Routine 02/27/2021 12:50 PM CDT Crohn's disease of small and large intestines with complication (CMS/HCC) HEPATIC FUNCTION PANEL Routine 02/27/2021 12:50 PM CDT Crohn's disease of small and large intestines with complication (CMS/HCC) LIPID PANEL Routine 02/27/2021 12:50 PM CDT Crohn's disease of small and large intestines with complication (CMS/HCC) documented in this encounter Results * Differential, auto (02/27/2021 12:50 PM CDT) Neutrophil abs 5.7 1.7 - 6.5 K/cumm [facility] Imm [...] last revised on 2018. Imm gran pct 0.1 % [facility] Comment: Interpretive Data Percent cell count reference ranges are not reported, since discordance with absolute values may lead to misinterpretation of CBC data. Current Interpretive Data was last revised on 2018. Lymphocyte pct 19.3 % [facility] Comment: Interpretive Data Percent cell count reference ranges are not reported, since discordance with absolute values may lead to misinterpretation of CBC data. Current Interpretive Data was last revised on 2018. Monocyte pct 7.4 % [facility] Comment: Interpretive Data Percent [...] last revised on 2018. Blood specimen (specimen) 02/27/2021 12:50 PM CDT 02/27/2021 2:17 PM CDT us Paulina Jones MD LAB BLOOD ORDERABLE S Final Result [facility] [id number] [facility]. Department [place] [address] * (ABNORMAL) Lipid panel (02/27/2021 12:50 PM CDT) Cholesterol 181 30 - 199 mg/dL ALDO [...] Data was last revised on 2018. Triglycerides 100 <=149 mg/dL [facility] Comment: Interpretive Data [...] was last revised on 2018. Non-HDL Cholesterol 145 mg/dL [facility] Comment: Interpretive Data Ages [...] last revised on 2018. Chol/HDL ratio 5 [facility] Blood specimen (specimen) 02/27/2021 12:50 PM CDT 02/27/2021 2:17 PM CDT us Paulina Jones MD LAB BLOOD ORDERABLE S Final Result [facility] [address] [facility]. Department [place] [address] * Hepatic function panel (02/27/2021 12:50 PM CDT) Bilirubin, total 0.8 0.1 - 1.2 mg/dL [facility] Bilirubin, direct <0.2 0.1 - 0.3 mg/dL [facility] Protein, pl 7.0 6.5 - 8.5 g/dL [facility] Albumin 4.3 3.5 - 5.0 g/dL [facility] Alk phos 54 40 - 130 Units/L [facility] ALT 37 7 - 55 Units/L [facility] AST 45 10 - 50 Units/L [facility] Blood specimen (specimen) 02/27/2021 12:50 PM CDT 02/27/2021 2:17 PM CDT Paulina Jones MD LAB BLOOD ORDERABLE S Final Result [place] [id number] [address] [place] [address] * (ABNORMAL) CBC with auto differential (02/27/2021 12:50 PM CDT) Pathologist [facility] WBC 8.0 3.8 - 9.9 K/cumm [facility] Hgb 12.3(L) 13.0 - 17.5 g/dL [facility] Hct 37.0(L) 38.9 - 50.3 % [facility] Plt 240 150 - 400 K/cumm [facility] MPV 10.1 9.1 - 12.3 fL [facility] RBC 4.19(L) 4.30 - 5.80 M/cumm [facility] MCV 88.3 81.3 - 96.4 fL [facility] MCH 29.4 27.1 - 33.3 pg [facility] MCHC 33.2 32.3 - 35.7 g/dL [facility] RDW CV 13.8 11.1 - 14.9 % [facility] RDW SD 44.6 35.7 - 48.1 fL [facility] NRBC abs 0.00 0.00 - 0.01 K/cumm [facility] Blood specimen (specimen) 02/27/2021 12:50 PM CDT 02/27/2021 2:17 PM CDT Paulina Jones MD LAB BLOOD ORDERABLE S Final Result [place] [id number] [address]. Department [place] [address] documented in this encounter Visit Diagnoses Diagnosis Crohn's disease of small and large intestines with complication (HCC) documented in this encounter Care Teams Bi Developer Relationship Specialty Start Date End Date Kirstie Jarrell MD PCP - General 08/29/17 08/06/21 documented as of this encounter
--- OUTSIDE RECORDS SUMMARY | 2024-11-11 19:13 | XMS_ITS | Encounter Summary ---
Author Organization [facility] Address [address] [place] [address] Phone Care Team Providers Care Beet Topper Name Role Phone Kirstie Jarrell MD Primary Care Provider + Reason for Visit * Episode Based Medications (Routine) - Closed Specialty Diagnoses / Procedures Referred By Med bazan Referred To Contact Diagnoses Crohn's disease of small and large intestines with complication (HCC) Procedures NC INJECTION, VEDOLIZUMAB Paulina Jones MD [address] [place] [address] Phone: tel: fax: [facility] Allergy and Immunology [address] [place] [address] [address] [place] [address] Phone: tel: fax: Referral ID Status Reason Start Date Expiration Date Visits Re quested Visits Authorized [id number] Closed 11/03/2020 11/03/2022 99 99 Encounter Details Date Type Department Care Team (Late st Contact Info) Description 07/24/2021 12:30 PM CDT Infusion [facility] Infusion Therapy [address] [place] [address] [address] [place] [address] Crohn's disease of small and [...] on file 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 Pt denies any recent fevers or feeling ill. PIV started and CBC, HFP, and lipid panel drawn with PIV start. VSS. Infusion started. Pt instructed to call for help whenever needed. Infusion complete and pt tolerated well. documented in this encounter Miscellaneous Notes * Addendum Note - Lexis Diamond CLT - 07/24/2021 12:30 PM CDTAddended by: LEXIS DIAMOND on: 07/24/2021 03:43 PM Modules accepted: Orders documented in this encounter Plan of Treatment Upcoming Encounters Date Type Department Care Team (Late st Contact Info) Description 11/09/2024 Plan of Care Documentation [address] [address] [place] [address] documented as of this encounter Results * (ABNORMAL) Lipid panel (07/24/2021 3:43 PM CDT) Cholesterol 197 30 - 199 mg/dL [facility] Comment: Interpretive Data Ages < or [...] Data was last revised on 2018. Triglycerides 122 <=149 mg/dL [facility] Comment: Interpretive Data [...] was last revised on 2018. LDL, calculated 137(H) <=129 mg/dL [facility] Comment: Interpretive Data [...] was last revised on 2018. Non-HDL Cholesterol 161 mg/dL [facility] Comment: Interpretive Data Ages [...] revised on 2018. Chol/HDL ratio 5 [facility] Blood 07/24/2021 3:43 PM CDT 07/24/2021 4:34 PM CDT Paulina Jones MD LAB BLOOD ORDERABLE S Final Result [facility] [address] [facility] Department [place] [address] documented in this encounter Visit Diagnoses Diagnosis Crohn's disease of small and large intestines with complication (HCC)- Primary documented in this encounter Administered Medications Inactive Administered Medications - up to 3 most recent administrations Medication Order MAR Action Action Date Dose Rate Site sodium chloride 0.9% flush 10 mL 10 mL, intravenous, As needed, line care, Starting on Tue07/24/21 at 1241, Flush pre and post IV catheter use.Indications:Crohn's disease of small and large intestines with complication (HCC) Given 07/24/2021 12:50 PM CDT 10 mL vedolizumab (ENTYVIO) 300 mg in sodium chloride 0.9% 250 mL IVPB 300 mg, intravenous, at 510 mL/hr, Administer over 30 Minutes, Once, On Tue07/24/21 at 1345, For 1 doseIndications:Crohn's disease of small and large intestines with complication (HCC) New Bag 07/24/2021 12:57 PM CDT 300 mg 510 mL/hr documented in this encounter Orders Nursing Count Last Ordered Date First Orde red Date ONCBCN PROVIDER COMMUNICATION 1 1 VITAL SIGNS PRE-INFUSION 1 07/24/2021 Appointment Requests Count Last Ordered Date Fi rst Ordered Date INFUSION APPT REQUEST 60 MIN 2 09/25/2021 07/24/2021 documented in this encounter Care Teams Beet Topper Relationship Specialty Start Date End Date Kirstie Jarrell MD PCP - General 08/29/17 08/06/21 documented as of this encounter
--- OUTSIDE RECORDS SUMMARY | 2024-11-11 19:13 | XMS_ITS | Encounter Summary ---
Author Organization [facility] [employer] [facility] Address [address] [place] [address] Phone Care Team Providers Care Generation Manager Name Role Phone Kirstie Jarrell MD Primary Care Provider + Encounter Details Date Type Department Care Team (Late Contact Info) Description 10/29/2020 Orders Only [facility] Gastroenterology [address] 8[address] [place] [address] [place] [address] Rita Lama RN Social History Tobacco Use Types Packs/Day Years Used Date Smoking Tobacco: Former Cigarettes Q uit: 2005 Smokeless Tobacco: Never Alcohol Use Standard Drinks/Week Comments Yes 0 (1 standard drink = 0.6 oz pur e alcohol) occasional Sex and Gender Information Value Date Recorded Sex Assigned at Not on file 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
--- OUTSIDE RECORDS SUMMARY | 2024-11-11 19:13 | XMS_ITS | Encounter Summary ---
Author Organization [facility] Healthcare Address [address] [place] [address] Care Team Providers Care Information Engineer Name Role Phone Kirstie Jarrell MD Primary Care Provider + Encounter Details Date Type Department Care Team (Late st Contact Info) Description 08/07/2021 8:42 AM CDT Anesthesia Event [facility] Endoscopy [address] [place] [address] Jonathan Ramires MD [address] [address] [place], [place] [id number] Anesthesia Record Procedure Summary Procedure Name Responsible Anesthesiologist Anesthesia Start Time Anesthesia Stop Time COLON DILATION 10R>STRICT Jonathan Ramires MD 08/07/21 0842 08/07/21 0930 Events Date Time Event Comment 08/07/2021 0825 0840 AN Equip Check 0842 An Start 0842 An Start Data 0842 In Room 0843 Start Supplemental O2 0846 Patient Positioned Laterally 0846 An Induction The patient was reevaluated immediately before moderate or deep sedation use and before anesthesia induction. 0847 Anesthesia Ready 0848 Proc Start 0924 Proc Fin 0928 Out of Room 0929 an stop data 0930 Handoff to RN I completed my handoff [...] at the time of handoff: PACU,phase II 929 An Stop Meds Name Total propofol 750 mg Lidocaine IV 2 % 5 mL sodium chloride 0.9% infusion 900 mL * Agents Name O2 * Blood No blood administrations on file. 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 Gender Identity Not on file Sexual Orientation Not on file documented as of this encounter OR Notes * Anesthesia Postprocedure Evaluation - Jonathan Ramires MD - 08/07/2021 10:08 AM CDT Patient: Ranjit Peralta Procedure Summary Date: 08/07/21 Room / Location: [facility] RO[facility] Anesthesia Start: 841 Anesthesia Stop: 929 Procedure: COLON STOMA WITH BALLOON DILATION (N/A Colon) Diagnosis: Crohn's disease of both small and large intestine without complication (CMS/HCC) (HCC) (Crohn's disease of both small and large intestine) Providers: Paulina Jones MD Responsible Provider: Jonathan Ramires MD Anesthesia Type: general ASA Status: 2 Anesthesia Type: general Last vitals BP 123/76 Pulse (!) 49 Temp 36.1 ??C (97 ??F) (Temporal) Resp 19 SpO2 98% Anesthesia Post Evaluation Patient location during evaluation: PACU Patient participation: complete - patient participated Level of consciousness: fully awake Pain score: 0 Pain management: adequate Airway patency: adequate Evidence of recall: no Cardiovascular status: hemodynamically stable and acceptable Respiratory status: acceptable and room air Hydration status: acceptable Pt is: normothermic Nausea/Vomiting status: none No complications documented. * Anesthesia Preprocedure Evaluation - Jonathan Ramires MD - 08/07/2021 8:34 AM CDT Images from the original note were not included. Anesthesia Evaluation Ranjit Peralta is a 40 y.o. male Procedure(s): COLONOSCOPY Pre-Op Diagnosis Codes: * Crohn's disease of both small and large intestine without complication (CMS/HCC) (HCC) [K50.80] Patient Active Problem List Diagnosis ??? Crohn's disease of both small and large intestine (HCC) ??? Crohn's disease with complication (CMS/HCC) (HCC) ??? High risk medications (not anticoagulants) long-term use ??? Stricture intestinal (CMS/HCC) (HCC) ??? Need for 23-polyvalent pneumococcal polysaccharide vaccine Past Medical History: Diagnosis Date ??? Anxiety ??? Crohn's disease (CMS/HCC) (HCC) dx 2006 Past Surgical History: Procedure Laterality Date ??? ABCESS DRAINAGE 04/06/201301/17 ??? ANAL FISTULOTOMY 08/22/2013 Allergies Allergen Reactions ??? Mercaptopurine Analogues (Thiopurines) Joint pain Severe gout like joint pain that starts within days of taking medicine Med List Status: Nurse Complete Set By: Sam Martinez RN at 08/07/2021 8:04 AM Taking? Last Dose Start Date End Date Provider ALPRAZolam (XANAX) 0.25 mg tablet Past Month 05/26/21 -- Paulina Jones MD Take 1 tablet (0.25 mg total) by mouth daily as needed for anxiety. Notes: Called in to [facility] pharmacy 05/26/2021. budesonide (Uceris) 2 mg/actuation foam More than a month 03/25/20 -- Paulina Jones MD Insert into the rectum 1 metered dose(2 mg) twice daily for 2 weeks ergocalciferol (VITAMIN D) 50,000 unit capsule More than a month 07/23/20 -- Paulina Jones MD Take 1 cap PO monthly folic acid (FOLVITE) 1 mg tablet Past Week 02/27/21 02/27/22 Paulina Jones MD Take 1 tablet (1 mg total) by mouth daily hydrocortisone-pramoxine (PROCTOFOAM-HC) rectal foam More than a month 12/28/19 -- Paulina Jones MD Insert 1 applicator into the rectum 2 (two) times a day ijbbrddt-aizicvylh-fgowumytjrllk (MAXITROL) 3.5mg/mL-10,000 unit/mL-0.1 % ophthalmic suspension More than a month 09/01/18 -- Melissa Gallardo MD tofacitinib (Xeljanz) 10 mg tablet Past Week 04/27/21 -- Paulina Jones MD Take 1 tablet (10 mg total) by mouth 2 (two) times a day Safety labs required every 3 months for med refills, next labs due ~ 07/2021. (CBC, LFT, Lipid Panel). vedolizumab (ENTYVIO) 300 mg recon soln Past Month -- -- Melissa Gallardo MD Current Facility-Administered Medications: ??? sodium chloride 0.9% flush 0.5-20 mL, 0.5-20 mL, intra-catheter, PRN ??? sodium chloride 0.9% infusion, 30 mL/hr, intravenous, Continuous, Last Rate: 30 mL/hr at 08/07/21823, 30 mL/hr at 08/07/21823 Social History Tobacco Use Smoking Status Former Smoker ??? Quit date: 2004 ??? Years since quittin.7 Smokeless Tobacco Never Used Substance and Sexual Activity Alcohol Use Yes Comment: occasional Substance and Sexual Activity Drug Use No Family History Problem Relation Age of Onset ??? Diabetes Maternal Grandfather Family history of diabetes mellitus - (Added by TW Conv)/Family history of diabetes mellitus - (Added by TW Conv) ??? Cancer Maternal Grandmother Vitals: 08/07/21 0815 08/07/21 0820 08/07/21 0825 BP: 132/80 150/96 Pulse: 61 53 Resp: 20 19 Temp: SpO2: 97% 96% PT: No results found for requested labs within last 720 hours. INR: No results found for requested labs within last 720 hours. APTT: No results found for requested labs within last 720 hours. Hgb A1C: No results found for requested labs within last 720 hours. CBC RBC: 07/24/2021: 4.48 M/cumm RDW: No results found for requested labs within last 720 hours. MCHC: 07/24/2021: 32.5 g/dL MCH: 07/24/2021: 28.3 pg MCV: 07/24/2021: 87.3 fL Hct: 07/24/2021: 39.1 % Hgb: 07/24/2021: 12.7 g/dL (L) WBC: 07/24/2021: 10.2 K/cumm (H) MPV: 07/24/2021: 10.5 fL Platelets: 07/24/2021: 301 K/cumm RDW CV: 07/24/2021: 14.5 % RDW Sd: 07/24/2021: 46.1 fL BMP Glucose: No results found for requested labs within last 720 hours. Calcium: No results found for requested labs within last 720 hours. Sodium: No results found for requested labs within last 720 hours. Potassium: No results found for requested labs within last 720 hours. CO2: No results found for requested labs within last 720 hours. Chloride: No results found for requested labs within last 720 hours. BUN: No results found for requested labs within last 720 hours. Creatinine: No results found for requested labs within last 720 hours. DOS Physical Exam Medical history, medications, and allergies reviewed. Attestation: This PAT evaluation Airway Exam: Mallampati: III Cervical ROM: FROM Cardiovascular Exam: Rate: regular Rhythm: regular Pulmonary Exam: LCTA, bilat Anesthesia Plan ASA 2 My patient is approved for the Anesthesia Controlled Medication protocol when under care of a NON ACOUSTIC OPERATOR Planned anesthesia: General Informed Consent: Anesthesia plan and risks discussed with patient. Consent and Attending signature: I and/or my [...] Info) Description 11/09/2024 Plan of Care Documentation [address] [address] [address] [place] [id number] documented as of this encounter Visit Diagnoses Not on filedocumented in this encounter Administered Medications Inactive Administered Medications - up to 3 most recent administrations Medication Order MAR Action Action Date Dose Rate Site lidocaine (XYLOCAINE) 20 mg/mL (2 %) injection intravenous, As needed, Starting on Tue08/07/21 at 0846, Anesthesia Intra-op, Indications: Administration of Local AnesthesiaIndications:Administratio n of Local Anesthesia Given 08/07/2021 8:46 AM CDT 5 mL propofoL (DIPRIVAN) 10 mg/mL IV intravenous, As needed, Starting on Tue08/07/21 at 0846, Anesthesia Intra-op Given 08/07/2021 9:21 AM CDT 50 mg Given 08/07/2021 9:17 AM CDT 50 mg Given 08/07/2021 9:14 AM CDT 50 mg sodium chloride 0.9% infusion 30 mL/hr, intravenous, Continuous, Starting on Tue08/07/21 at 0845, Pre-Procedure (GI) Restarted 08/07/2021 8:46 AM CDT Rate/Dose Verify 08/07/2021 8:42 AM CDT 30 mL/h r New Bag 08/07/2021 8:24 AM CDT 30 mL/hr 30 mL/hr documented in this encounter Care Teams Information Engineer Relationship Specialty Start Date End Date Kirstie Jarrell MD [address] [address] PCP - General 08/07/21 2 documented as of this encounter
--- OUTSIDE RECORDS SUMMARY | 2024-11-11 19:13 | XMS_ITS | Encounter Summary ---
Author Organization [facility] [employer] [facility] Address [address] [place] [address] Phone Care Team Providers Care Shear Operator Helper Name Role Phone Kirstie Jarrell MD Primary Care Provider + Encounter Details Date Type Department Care Team (Late st Contact Info) Description 05/26/2021 Orders Only [facility] Gastroenterology [address] 8[address] [place] [address] [place] [id number] Eryn Dalton LPN Anxiety Social History Tobacco Use Types Packs/Day Years Used Date Smoking Tobacco: Former Cigarettes Q uit: 2005 Smokeless Tobacco: Never Alcohol Use Standard Drinks/Week Comments Yes 0 (1 standard drink = 0.6 oz pur e alcohol) occasional Sex and Gender Information Value Date Recorded Sex Assigned at Not on file 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 15 tablet 05/26/2021 12/27/2023 documented in this encounter Plan of Treatment Upcoming Encounters Date Type Department Care Team (Late st Contact Info) Description 11/09/2024 Plan of Care Documentation [address] [place] [address] documented as of this encounter Visit Diagnoses Diagnosis Anxiety Anxiety state, unspecified documented in this encounter Discontinued Medications Medication Sig Discontinue Reason Start Date End Da te ALPRAZolam (XANAX) 0.25 mg tabletIndications:Anxiet y Take 1 tablet (0.25 mg total) by mouth daily As needed for anxiety 03/06/2021 05/26/2021 documented as of this encounter Care Teams Shear Operator Helper Relationship Specialty Start Date End Date Kirstie Jarrell MD PCP - General 08/29/17 08/06/21 documented as of this encounter
--- OUTSIDE RECORDS SUMMARY | 2024-11-11 19:13 | XMS_ITS | Encounter Summary ---
Author Organization [facility] [employer] [facility] Address [address] [place] [address] Phone Care Team Providers Care Buzzsaw Operator Helper Name Role Phone Kirstie Jarrell MD Primary Care Provider + Reason for Visit * Episode Based Medications (Routine) - Closed Specialty Diagnoses / Procedures Referred By Med bazan Referred To Contact Diagnoses Crohn's disease of small and large intestines with complication (HCC) Procedures GA INJECTION, VEDOLIZUMAB Paulina Jones MD [address] [place] [address] Phone: tel: fax: [facility] Allergy and Immunology [address] [place] [address] [address] [place] [address] Phone: tel: fax: Referral ID Status Reason Start Date Expiration Date Visits Re quested Visits Authorized [id number] Closed 11/03/2020 11/03/2022 99 99 Encounter Details Date Type Department Care Team (Late st Contact Info) Description 08/25/2021 3:00 PM CDT Infusion [facility] Infusion Therapy [address] [place] [address] [address] [place] [address] Crohn's disease of small and [...] on file 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 PIV placed and labs obtained before infusion initiated. Pt tolerated infusion well, ambulatory upon discharge. documented in this encounter Plan of Treatment Upcoming Encounters Date Type Department Care Team (Late st Contact Info) Description 11/09/2024 Plan of Care Documentation [facility] - [address] [place] [address] documented as of this encounter Visit Diagnoses Diagnosis Crohn's disease of small and large intestines with complication (HCC)- Primary documented in this encounter Administered Medications Inactive Administered Medications - up to 3 most recent administrations Medication Order MAR Action Action Date Dose Rate Site sodium chloride 0.9% flush 10 mL 10 mL, intravenous, As needed, line care, Starting on Tue08/25/21 at 1520, Flush pre and post IV catheter use.Indications:Crohn's disease of small and large intestines with complication (HCC) Given 08/25/2021 3:30 PM CDT 10 mL vedolizumab (ENTYVIO) 300 mg in sodium chloride 0.9% 250 mL IVPB 300 mg, intravenous, at 510 mL/hr, Administer over 30 Minutes, Once, On 08/25/21 at 1630, For 1 doseIndications:Crohn's disease of small and large intestines with complication (HCC) New Bag 08/25/2021 3:37 PM CDT 300 mg 510 mL/hr documented in this encounter Orders Nursing Count Last Ordered Date First Orde red Date ONCBCN PROVIDER COMMUNICATION 1 1 VITAL SIGNS PRE-INFUSION 1 08/25/2021 Appointment Requests Count Last Ordered Date Fi rst Ordered Date INFUSION APPT REQUEST 60 MIN 1 10/23/2021 documented in this encounter Care Teams Buzzsaw Operator Helper Relationship Specialty Start Date End Date Kirstie Jarrell MD [address] [place] [address] [address] [place] [address] PCP - General 08/07/21 12/10/21 documented as of this encounter
--- OUTSIDE RECORDS SUMMARY | 2024-11-11 19:13 | XMS_ITS | Encounter Summary ---
Author Organization [facility] [employer] [facility] Address [address] [place] [address] Phone Care Team Providers Care Field Observer Name Role Phone Kirstie Jarrell MD Primary Care Provider + Reason for Visit * Episode Based Medications (Routine) - Closed Specialty Diagnoses / Procedures Referred By Med bazan Referred To Contact Diagnoses Crohn's disease of small and large intestines with complication (HCC) Procedures IN INJECTION, VEDOLIZUMAB Paulina Jones MD [address] [place] [address] Phone: tel: fax: [facility] Allergy and Immunology [address] [place] [address] [address] [place] [address] Phone: tel: fax: Referral ID Status Reason Start Date Expiration Date Visits Re quested Visits Authorized [id number] Closed 11/03/2020 11/03/2022 99 99 Encounter Details Date Type Department Care Team (Late st Contact Info) Description 05/29/2021 12:30 PM CDT Infusion [facility] Infusion Therapy [address] [place] [address] [address] [place] [address] Crohn's disease of small and [...] on file 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 Patient denies any active infections or upcoming surgeries. PIV placed, labs obtained and dose infused. Patient tolerated infusion well. documented in this encounter Plan of Treatment Upcoming Encounters Date Type Department Care Team (Late st Contact Info) Description 11/09/2024 Plan of Care Documentation [address] [address] [address] [place] [address] documented as of this encounter Results * (ABNORMAL) Lipid panel (05/29/2021 11:45 AM CDT) Cholesterol 194 30 - 199 mg/dL [facility] Comment: Interpretive Data Ages < or [...] BLOOD ORDERABLE S Final Result [facility] [address] [facility]. Department [place] [address] documented in this encounter Visit Diagnoses Diagnosis Crohn's disease of small and large intestines with complication (HCC)- Primary documented in this encounter Administered Medications Inactive Administered Medications - up to 3 most recent administrations Medication Order MAR Action Action Date Dose Rate Site sodium chloride 0.9% flush 10 mL 10 mL, intravenous, As needed, line care, Starting on Tue05/29/21 at 1237, Flush pre and post IV catheter use.Indications:Crohn's disease of small and large intestines with complication (HCC) Given 05/29/2021 12:55 PM CDT 10 mL vedolizumab (ENTYVIO) 300 mg in sodium chloride 0.9% 250 mL IVPB 300 mg, intravenous, at 510 mL/hr, Administer over 30 Minutes, Once, On Tue05/29/21 at 1345, For 1 doseIndications:Crohn's disease of small and large intestines with complication (HCC) New Bag 05/29/2021 1:03 PM CDT 300 mg 510 mL/hr documented in this encounter Orders Nursing Count Last Ordered Date First Orde red Date ONCBCN PROVIDER COMMUNICATION 1 1 VITAL SIGNS PRE-INFUSION 1 05/29/2021 Appointment Requests Count Last Ordered Date Fi rst Ordered Date INFUSION APPT REQUEST 60 MIN 1 07/24/2021 documented in this encounter Care Teams Field Observer Relationship Specialty Start Date End Date Kirstie Jarrell MD PCP - General 08/29/17 08/06/21 documented as of this encounter
--- OUTSIDE RECORDS SUMMARY | 2024-11-11 19:13 | XMS_ITS | Encounter Summary ---
Author Organization [facility] Address [address] [place] [address] Phone Care Team Providers Care Business Operations Analyst Name Role Phone Kirstie Jarrell MD Primary Care Provider + Encounter Details Date Type Department Care Team (Late st Contact Info) Description 09/03/2020 10:45 AM CDT Office Visit [facility] Gastroenterology [address] [facility] Medical Office Building [address] [place] [address] Paulina Jones MD [address] [place] [address] Crohn's disease of small and [...] on file 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 Gender Identity Not on file Sexual Orientation Not on file documented as of this encounter Last Filed Vital Signs Vital Sign Reading Time Taken Comments Blood Pressure 134/75 09/03/2020 11:03 AM CDT Pulse 58 09/03/2020 11:03 AM CDT Temperature 36.3 ??C (97.3 ??F) 09/03/2020 11:03 AM C DT Respiratory Rate - - Oxygen Saturation - - Inhaled Oxygen Concentration - - Weight 115 kg (253 lb 9.6 oz) 09/03/2020 11:03 A M CDT Height 190.5 cm (6' 3 ) 09/03/2020 11:03 AM CDT Body Mass Index 31.7 09/03/2020 11:03 AM CDT documented in this encounter Patient Instructions * Patient Instructions* Rita Lama RN - 09/03/2020 10:45 AM CDT Entyvio Drug level to be done with Infusion on 10/24/2020( order sent to infusion center) Get flu vaccine as soon as Possible at outside pharmacy Xeljanz sample 5 mg bottlesess X 4 to patient at office visit 1 2 tabs , twice daily. Call /message office when almost out so more samples can be mailed to patient . Follow up in the office in 4 months colonoscopy with meth blue in 02/2020- Penelope to schedule Procedure(s) closer to that time frame. Feelfree to contact her at direct extension [phone]. documented in this encounter Progress Notes * Paulina Jones MD - 09/03/2020 12:00 AM CDT PATIENT NAME: DANTE PERALTA : 1980 DIMITRIS: 09/03/2020 REASON FOR VISIT: Follow-up on ileocolonic and perianal Crohn's disease, diagnosed in 2006, currently being maintained on Entyvio every 8 weeks, status post induction, which began in mid May 2020; the patient should have been on Xeljanz, but he states that he only took it for a month or two, and then stopped it because he was worried about the cardiac side effects. CURRENT MEDICATION: 1. Folic acid daily. 2. Vitamin D once a month. 3. Entyvio every 8 weeks (due for his next dose in october). PROBLEM LIST: 1. Ileocolonic and perianal Crohn's [...] intermittent obstructions, but when [facility], the decision was made to hold [...] that combination worked for him. The patient states he did take the Xeljanz for a month or two, and then stopped it because he felt like he might be more short of breath, which he attributed to the Xeljanz. He really did not notice any difference though in the shortness of breath when he will stopped the Xeljanz. 2. History of gout, which led to discontinuation of thiopurines. The patient was not able to restart it, as he felt like it caused a lot nausea, vomiting, as well as could not tolerate allopurinol. 3. Tolerating methotrexate. 4. Positive JERALD virus, titer of 2.15. HISTORY OF PRESENT ILLNESS: Dante is a gabby 39-year-old male, with a past medical history of ileocolonic and perianal Crohn's disease, who presents today for follow-up. The patient reports that he did initiate Entyvio, and he has actually felt quite well on Entyvio. He received induction dosing at ____ and has received one maintenance dose. He is due for his second maintenance dose in mid October. The patient still has some intermittent symptoms of urgency, and he has been using ProctoFoam about3 times a week. It was initially planned for him to do Entyvio with Xeljanz, but he states that he felt like a feeling of heaviness in his chest that he states is similar to being short of breath, but not really being a tachypneic, and he states that he thought this was the cardiac side effect is Xeljanz. The patient states he is still occasionally seeing blood on the toilet tissue, but otherwise feels well. The patient does not really state that he noticed any difference while on Xeljanz, but also states that he only took it for a month or two. The patient otherwise has no other complaints. PHYSICAL EXAMINATION: VITAL SIGNS: His blood pressure is 154/75, pulse of 58, weight of 253 pounds. GENERAL: He is a well-appearing white male, in no apparent distress. ABDOMEN: Soft, nontender, nondistended, with good bowel sounds. EXTREMITIES: No edema. ASSESSMENT: Dante is a gabby 39-year-old male with a past medical history of ileal as well as perianal/proctitis, who presents today for follow-up, currently being maintained on Entyvio, status post induction, but still with some disease of urgency and tenesmus, for which he takes topical steroids 3 times aweek. I spoke to the patient at length, and although these symptoms might have been related to the Xeljanz, I would prefer he was evaluated by Cardiology if he does have these symptoms. I told the patient that I would like him to start the Xeljanz, and if he has these symptoms, let me know, and I am happy to make the referral. I have told him that we know in the past that the patient had active diseasewhile on Entyvio monotherapy, so I think it is important that we put him on combination therapy. Inaddition, the patient had low Entyvio levels on every 8-week dosing, and I suspect we will need to shorten his interval. We will plan on checking his in Entyvio level before his October infusion. The patient otherwise was given ample opportunity to ask any questions. We will plan on seeing him back here in 4 months, but I anticipate doing a colonoscopy on him in the spring. The patient was given ample opportunity to ask any questions, and his questions were answered. ELECTRONICALLY SIGNED - 09/03/2020 01:52 PM Paulina Jones MD, MPH [facility] Medicine Division of Gastroenterology [facility] documented in this encounter Plan of Treatment Upcoming Encounters Date Type Department Care Team (Late st Contact Info) Description 11/09/2024 Plan of Care Documentation [address] [address] [address] [place] [address] documented as of this encounter Visit Diagnoses Diagnosis Crohn's disease of small and large intestines with complication (HCC)- Primary documented in this encounter Discontinued Medications Medication Sig Discontinue Reason Start Date End Da te predniSONE (DELTASONE) 20 mg tabletIndications:Crohn' s disease of both small and large intestine with intestinal obstruction (HCC) Take 1 tab(20 mg)) every morning with food for 21 days by mouth as directed Therapy completed 12/28/2019 09/03/2020 documented as of this encounter Care Teams Business Operations Analyst Relationship Specialty Start Date End Date Kirstie Jarrell MD PCP - General 08/29/17 08/06/21 documented as of this encounter
--- OUTSIDE RECORDS SUMMARY | 2024-11-11 19:13 | XMS_ITS | Encounter Summary ---
Author Organization [facility] Address [address] [place] [address] Care Team Providers Care Occupational Health Nursing Director Name Role Phone Kirstie Jarrell MD Primary Care Provider + Encounter Details Date Type Department Care Team (Late st Contact Info) Description 08/07/2021 8:30 AM CDT - 08/07/2021 9:00 AM CDT Surgery [facility] Endoscopy [address] [place] [address] Paulina Jones MD [address] [facility] [address] [place], [place] [id number] COLON DILATION 10R>STRICT Surgery Details Date/Time Status Location OR Service Patient Class Case Class Case Type Trauma Case? 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 Gender Identity Not on file Sexual Orientation Not on file documented as of this encounter Last Filed Vital Signs Vital Sign Reading Time Taken Comments Blood Pressure 150/96 08/07/2021 8:25 AM CDT Pulse 53 08/07/2021 8:20 AM CDT Temperature 36.4 ??C (97.5 ??F) 08/07/2021 7:55 AM CD T Respiratory Rate 19 08/07/2021 8:20 AM CDT Oxygen Saturation 96% 08/07/2021 8:20 AM CDT Inhaled Oxygen Concentration - - Weight 108.9 kg (240 lb) 08/07/2021 7:55 AM CDT Height 190.5 cm (6' 3 ) 08/07/2021 7:55 AM CDT Body Mass Index 30 08/07/2021 7:55 AM CDT documented in this encounter Discharge Instructions * Attachments The following attachments cannot be sent through Care Everywhere. * Colonoscopy (Discharge Care) (French) documented in this encounter Medications at Time [...] 10/28/2020 based on low drug level At [facility] 2 budesonide (Uceris) 2 mg/actuation foamIndications:Cr ohn's [...] Anal abscess Perianal abscess - (Added by TW Conv) ??? Anal fistula Anal fistula - [...] by TW Conv) ??? Cancer Maternal Grandmother Allergies Allergen [...] times a day 12/28/19 Paulina Jones MD awcuslvo-odeigpjss-rucupdnqvddfr (MAXITROL) 3.5mg/mL-10,000 unit/mL-0.1 % ophthalmic suspension INSTILL 1 GTT TO OS BID 09/01/18 ProviderMelissa MD tofacitinib (Xeljanz) 10 mg tablet [...] 10/28/2020 based on low drug level At [facility] Provider, MD Melissa Review of Systems A [...] Male Attending MD: Paulina Jones M.D. Room: [facility] ENDOSCOPY ROOM 01 Note Status: Finalized Procedure: [...] scope was passed under direct vision. The [id number] was introduced through the anus and advanced [...] hours - Please call the Nurse Coordinator: [phone] After hours, evening, nights, weekends and holidays - Please call the hospital handle lathe operator at and ask for the GI fellow sex offender treatment professional. Attending Participation: I personally performed the entire procedure. Electronically signed by Paulina Jones M.D. Paulina Jones M.D. 08/07/2021 9:39:34 AM Number of Addenda: 0 Note Initiated On: 08/07/2021 8:45 AM documented in this encounter Miscellaneous Notes * Perioperative Nursing Note - Katie Pace RN - 08/07/2021 10:[address] Jones spoke with patient and spouse re: findings. Discharge instructions given - questions answered, understanding expressed. Tolerating po w/o problems. * Perioperative Nursing Note - Katie Pace RN - 08/07/2021 9:40 AM CDT Awaiting marshmallow machine operator to discuss findings. Discharge instructions given to patient, and family .Understanding expressed, questions answered. Tolerating po fluids. * Pre-Procedure Instructions - Clara Townsend RN - 08/06/2021 4:00 PM CDT Please follow any and all instruction you were given re:Bowel prep When you arrive, please come to [facility] hospital entrance. As you enter [...] mask at all times If this person(your taxi truck driver)chooses not to come inside or will be picking you up after your procedure with anesthesia, for your safety we will confirm your ride home by phone call prior to your procedure start time documented in this encounter Plan of Treatment Upcoming Encounters Date Type Department Care Team (Late st Contact Info) Description 11/09/2024 Plan of Care Documentation [address] [address] [place] [address] documented as of this encounter Procedures Procedure [...] Male Attending MD: Paulina Jones M.D. Room: [facility] ENDOSCOPY ROOM 01 Note Status: Finalized Procedure: [...] The scope was passed under direct vision.The [id number] was introduced through the anusand advanced to [...] business hours - Please call theNurse Coordinator: [phone] After hours, evening, nights, weekends and holidays- Please call the hospital handle lathe operator at and ask for the GI fellow sex offender treatment professional. Attending Participation: I personally performed the entire procedure. Electronically signed by Paulina Jones M.D. Paulina Jones M.D. 08/07/2021 9:39:34 AM Number of Addenda: 0 Note Initiated On: 08/07/2021 8:45 AM Paulina Jones MD ENDOSCOPY PROCEDURE S Final [...] test. T-SPOT.TB Panel A Spot Count 0 [facility] T-SPOT.TB Panel B Spot Count 0 [facility] PAULWRUBEN T-SPOT.TB Negative Control Passed [facility] GO T-SPOT.TB Positive Control Passed [facility] Comment: Test Performed at: [facility] [employer] [place], [place] ??[address] ? LIANA HURTADO MD,PHD Blood 08/07/2021 8:23 AM CDT 08/07/2021 8:29 AM CDT us Paulina Jones MD LAB MICROBIOLOGY - GENERAL ORDERABLES Final Result ALDO [facility] [address] [facility]. Department [place] [address] documented in this encounter Visit Diagnoses Diagnosis Crohn's disease of both small and large intestine without complication (CMS/HCC) (HCC)- Primary High risk medications (not anticoagulants) long-term use Encounter for long-term (current) use of other medications Crohn's disease of both small and large intestine without complication (CMS/HCC) (HCC) documented in this encounter Administered Medications Inactive Administered Medications - up to 3 most recent administrations Medication Order MAR Action Action Date Dose Rate Site methylene blue (PROVAYBLUE) (0.5%) injection Administer over 20 Minutes, As needed, Starting on Tue08/07/21 at 0853, Intra-Op Given 08/07/2021 8:53 AM CDT 50 mg GI Tract sodium chloride 0.9% flush [...] Discontinue Reason Start Date End Da te nzseafip-elihoinit-dbpkq ethasone (MAXITROL) 3.5mg/mL-10,000 unit/mL-0.1 % ophthalmic suspension [...] Date ondansetron (ZOFRAN) injection 4 mg 1 08/07 sodium chloride 0.9% flush 0.5-20 mL 1 11/2020 documented in this encounter Care Teams Occupational Health Nursing Director Relationship Specialty Start Date End Date Kirstie Jarrell MD [address] [place] [address] [address] PCP - General 08/07/21 12/10/21 documented as of this encounter
--- OUTSIDE RECORDS SUMMARY | 2024-11-11 19:13 | XMS_ITS | Encounter Summary ---
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 Gender Identity Not on file Sexual Orientation Not on file documented as of this encounter Plan of Treatment Upcoming Encounters Date Type Department Care Team (Late st Contact Info) Description 11/09/2024 Plan of Care Documentation [address] [address] [address] [place] [address] documented as of this encounter Procedures Procedure Name Priority Date/Time Associated Diagnosis Comments DIFFERENTIAL AUTO Routine 07/24/2021 3:4 3 PM CDT Crohn's disease of small and large intestines with complication (CMS/HCC) (HCC) CBC WITH AUTO DIFFERENTIAL Routine 07/24/2021 3:43 PM CDT Crohn's disease of small and large intestines with complication (CMS/HCC) (HCC) HEPATIC FUNCTION PANEL Routine 07/24/2021 3:43 PM CDT Crohn's disease of small and large intestines with complication (CMS/HCC) (HCC) LIPID PANEL Routine 07/24/2021 3:43 PM CDT Crohn's disease of small and large intestines with complication (CMS/HCC) (HCC) documented in this encounter Results * (ABNORMAL) Differential, auto (07/24/2021 3:43 PM CDT) Neutrophil abs 7.5(H) 1.7 - 6.5 K/cumm [facility] Imm gran abs 0.0 0.0 - 0.1 K/cumm [facility] Lymphocyte abs 1.9 0.8 - 3.3 K/cumm [facility] Monocyte abs 0.7 0.2 - 0.8 K/cumm [facility] Eosinophil abs 0.0 0.0 - 0.5 K/cumm [facility] Basophil abs 0.0 0.0 - 0.1 K/cumm [facility] Neutrophil pct 74.0 % [facility] Comment: Interpretive Data Percent [...] was last revised on 2018. Lymphocyte pct 18.7 % [facility] Comment: Interpretive Data Percent cell count reference ranges are not reported, since discordance with absolute values may lead to misinterpretation of CBC data. Current Interpretive Data was last revised on 2018. Monocyte pct 6.4 % [facility] Comment: Interpretive Data Percent cell count reference ranges are not reported, since discordance with absolute values may lead to misinterpretation of CBC data. Current Interpretive Data was last revised on 2018. Eosinophil pct 0.3 % [facility] Comment: Interpretive [...] Data was last revised on 2018. Blood 07/24/2021 3:43 PM CDT 07/24/2021 4:34 PM CDT us Paulina Jones MD LAB BLOOD ORDERABLE S Final Result [facility] [address] [facility]. [place] [address] * (ABNORMAL) Lipid panel (07/24/2021 3:43 PM CDT) Cholesterol 197 30 - 199 mg/dL [facility] Comment: [...] 2018. Chol/HDL ratio 5 [facility] Blood 07/24/2021 3:43 PM CDT 07/24/2021 4:34 PM CDT us Paulina Jones MD LAB BLOOD ORDERABLE S Final Result [facility] [address] [facility]. [place] [address] * Hepatic function panel (07/24/2021 3:43 PM CDT) Bilirubin, total 0.6 0.1 - 1.2 mg/dL [facility] Bilirubin, direct <0.2 0.1 - 0.3 mg/dL [facility] Protein, pl 7.3 6.5 - 8.5 g/dL [facility] Albumin 4.4 3.5 - 5.0 g/dL [facility] Alk phos 66 40 - 130 Units/L [facility] ALT 30 7 - 55 Units/L [facility] AST 35 10 - 50 Units/L [facility] Blood 07/24/2021 3:43 PM CDT 07/24/2021 4:34 PM CDT Paulina Jones MD LAB BLOOD ORDERABLE S Final Result Performing Organization Address [facility] Co de Phone Number [facility] [address] [facility]. [place] [address] * (ABNORMAL) CBC with auto differential (07/24/2021 3:43 PM CDT) [facility] [address] WBC 10.2(H) 3.8 - 9.9 K/cumm [facility] Hgb 12.7(L) 13.0 - 17.5 g/dL [facility] Hct 39.1 38.9 - 50.3 % [facility] Plt 301 150 - 400 K/cumm [facility] MPV 10.5 9.1 - 12.3 fL [facility] RBC 4.48 4.30 - 5.80 M/cumm [facility] MCV 87.3 81.3 - 96.4 fL [facility] MCH 28.3 27.1 - 33.3 pg [facility] MCHC 32.5 32.3 - 35.7 g/dL [facility] RDW CV 14.5 11.1 - 14.9 % [facility] RDW SD 46.1 35.7 - 48.1 fL [facility] NRBC abs 0.00 0.00 - 0.01 K/cumm [facility] Blood 07/24/2021 3:43 PM CDT 07/24/2021 4:34 PM CDT Paulina Jones MD LAB BLOOD ORDERABLE S Final Result Performing Organization Address City/[facility]/ZIP Co de Phone Number ALDO GO [address] [address] [facility]. Department of Laboratories [place], [place] [id number] documented in this encounter Visit Diagnoses Diagnosis Crohn's disease of small and large intestines with complication (HCC) documented in this encounter Care Teams Financial Systems Manager Relationship Specialty Start Date End Date Kirstie Jarrell MD PCP - General 08/29/17 08/06/21 documented as of this encounter
--- OUTSIDE RECORDS SUMMARY | 2024-11-11 19:13 | XMS_ITS | Encounter Summary ---
Author Organization [facility] Address [address] [place] [address] Phone Care Team Providers Care Recep Name Role Phone Kirstie Jarrell MD Primary Care Provider + Encounter Details Date Type Department Care Team (Late st Contact Info) Description 11/03/2020 Documentation [facility] Gastroenterology [address] [facility] 8[address] [place] [address] [place] [address] Penelope Lai Social History Tobacco Use Types Packs/Day Years Used Date Smoking Tobacco: Former Cigarettes Q uit: 2004 Smokeless Tobacco: Never Alcohol Use Standard Drinks/Week Comments Yes 0 (1 standard drink = 0.6 oz pur e alcohol) occasional Sex and Gender Information Value Date Recorded Sex Assigned at Not on file 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 1:55 PM CASINO FLOOR SUPERVISOR To: Rita Hauser RN Subject: RE: ENTYVIO Q4 - APPROVED FAXED PRE-D FOR ENTYVIO Q4 TO [facility] [place] @ [phone]. ??CALL [phone] TO CHECK STATUS Entyvio frequency change to every 4 week infusions based on low drug level Sent to [facility] on 10/28/2020 For [facility] infusion NO FLOOR SUPERVISOR NO FLOOR SUPERVISOR NO FLOOR SUPERVISOR documented in this encounter Plan of Treatment Upcoming Encounters Date Type Department Care Team (Late st Contact Info) Description 11/09/2024 Plan of Care Documentation [address] [address] [address] [place] [address] documented as of this encounter Visit Diagnoses Not on filedocumented in this encounter Care Teams Recep Relationship Specialty Start Date End Date Kirstie Jarrell MD PCP - General 08/29/17 08/06/21 documented as of this encounter
--- OUTSIDE RECORDS SUMMARY | 2024-11-11 19:13 | XMS_ITS | Encounter Summary ---
Author Organization [facility] [employer] of [facility] Address [address] [place] [address] Phone Care Team Providers Care Websphere Commerce Architect Name Role Phone Kirstie Jarrell MD Primary Care Provider + Reason for Visit * Episode Based Medications (Routine) - Closed Specialty Diagnoses / Procedures Referred By Med bazan Referred To Contact Diagnoses Crohn's disease of small and large intestines with complication (HCC) Procedures [place] INJECTION, VEDOLIZUMAB Paulina Jones MD [address] [place] [address] Phone: tel: fax: [facility] Allergy and Immunology [address] [place] [address] [address] [place] [address] Phone: tel: fax: Referral ID Status Reason Start Date Expiration Date Visits Re quested Visits Authorized [id number] Closed 11/03/2020 11/03/2022 99 99 Encounter Details Date Type Department Care Team (Late st Contact Info) Description 01/30/2021 11:00 AM CDT Infusion [facility] Infusion Therapy [address] [place] [address] [address] [place] [address] Crohn's disease of small and [...] on file 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 Pt denies any recent fevers or feeling ill. PIV started and CBC, HFP, and lipid panel drawn with PIV start. VSS. Infusion started. Pt instructed to call for help whenever needed. Infusion complete and pt tolerated well. documented in this encounter Miscellaneous Notes * Addendum Note - Maria Dolores Jolley - 01/30/2021 11:00 AM CDTAddended by: MARIA DOLORES JOLLEY on: 01/30/2021 03:10 PM Modules accepted: Orders documented in this encounter Plan of Treatment Upcoming Encounters Date Type Department Care Team (Late st Contact Info) Description 11/09/2024 Plan of Care Documentation [address] [address] [address] [place] [address] documented as of this encounter Results * (ABNORMAL) Lipid panel (01/30/2021 2:37 PM CDT) [facility] Signature Cholesterol 104 30 - 199 mg/dL [facility] Comment: Interpretive Data Ages < or [...] Data was last revised on 2018. Triglycerides 155(H) <=149 mg/dL [facility] Comment: Interpretive Data [...] Data was last revised on 2018. HDL 46 >=40 mg/dL [facility] Comment: Interpretive Data [...] was last revised on 2018. LDL, calculated 27 <=129 mg/dL [facility] Comment: Interpretive Data [...] was last revised on 2018. Non-HDL Cholesterol 58 mg/dL [facility] Comment: Interpretive Data Ages [...] was last revised on 2018. Chol/HDL ratio 2 [facility] Blood specimen (specimen) 01/30/2021 2:37 PM CDT 01/30/2021 3:23 PM CDT Paulina Jones MD LAB BLOOD ORDERABLE S Final Result [facility] [address] [facility]. [place] [address] documented in this encounter Visit Diagnoses Diagnosis Crohn's disease of small and large intestines with complication (HCC)- Primary documented in this encounter Administered Medications Inactive Administered Medications - up to 3 most recent administrations Medication Order MAR Action Action Date Dose Rate Site sodium chloride 0.9% flush 10 mL 10 mL, intravenous, As needed, line care, Starting on Tue01/30/21 at 1106, Flush pre and post IV catheter use.Indications:Crohn's disease of small and large intestines with complication (HCC) Given 01/30/2021 11:15 AM CDT 10 mL vedolizumab (ENTYVIO) 300 mg in sodium chloride 0.9% 250 mL IVPB 300 mg, intravenous, at 510 mL/hr, Administer over 30 Minutes, Once, On Tue01/30/21 at 1215, For 1 doseIndications:Crohn's disease of small and large intestines with complication (HCC) New Bag 01/30/2021 11:23 AM CDT 300 mg 510 mL/hr documented in this encounter Orders Nursing Count Last Ordered Date First Orde red Date ONCBCN PROVIDER COMMUNICATION 1 1 VITAL SIGNS PRE-INFUSION 1 01/30/2021 Appointment Requests Count Last Ordered Date Fi rst Ordered Date INFUSION APPT REQUEST 60 MIN 2 03/27/2021 01/30/2021 documented in this encounter Care Teams Websphere Commerce Architect Relationship Specialty Start Date End Date Kirstie Jarrell MD PCP - General 08/29/17 08/06/21 documented as of this encounter
--- OUTSIDE RECORDS SUMMARY | 2024-11-11 19:13 | XMS_ITS | Encounter Summary ---
Author Organization [facility] [employer] [facility] Address [address] [place] [address] Phone Care Team Providers Care Player Piano Technician Name Role Phone Kirstie Jarrell MD Primary Care Provider + Encounter Details Date Type Department Care Team (Late st Contact Info) Description 01/30/2021 3:10 PM CDT Lab [facility] Oncology 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 Gender Identity Not on file Sexual Orientation Not on file documented as of this encounter Plan of Treatment Upcoming Encounters Date Type Department Care Team (Late st Contact Info) Description 11/09/2024 Plan of Care Documentation [address] [address] [place] [address] documented as of this encounter Procedures Procedure Name Priority Date/Time Associated Diagnosis Comments DIFFERENTIAL AUTO Routine 01/30/2021 2:3 7 PM CDT Crohn's disease of small and large intestines with complication (CMS/HCC) CBC WITH AUTO DIFFERENTIAL Routine 01/30/2021 2:37 PM CDT Crohn's disease of small and large intestines with complication (CMS/HCC) HEPATIC FUNCTION PANEL Routine 01/30/2021 2:37 PM CDT Crohn's disease of small and large intestines with complication (CMS/HCC) LIPID PANEL Routine 01/30/2021 2:37 PM CDT Crohn's disease of small and large intestines with complication (CMS/HCC) documented in this encounter Results * Differential, auto (01/30/2021 2:37 PM CDT) Neutrophil abs 3.9 1.7 - 6.5 K/cumm [facility] Imm gran abs 0.0 0.0 - 0.1 K/cumm [facility] Lymphocyte abs 2.7 0.8 - 3.3 K/cumm [facility] Monocyte abs 0.5 0.2 - 0.8 K/cumm [facility] Eosinophil abs 0.1 0.0 - 0.5 K/cumm [facility] Basophil abs 0.1 0.0 - 0.1 K/cumm [facility] Neutrophil pct 53.4 % [facility] Comment: Interpretive Data Percent [...] was last revised on 2018. Lymphocyte pct 36.7 % [facility] Comment: Interpretive Data Percent cell count reference ranges are not reported, since discordance with absolute values may lead to misinterpretation of CBC data. Current Interpretive Data was last revised on 2018. Monocyte pct 7.3 % [facility] Comment: Interpretive Data Percent cell count reference ranges are not reported, since discordance with absolute values may lead to misinterpretation of CBC data. Current Interpretive Data was last revised on 2018. Eosinophil pct 1.5 % [facility] Comment: Interpretive Data Percent cell count reference ranges are not reported, since discordance with absolute values may lead to misinterpretation of CBC data. Current Interpretive Data was last revised on 2018. Basophil pct 0.7 % [facility] Comment: Interpretive Data Percent cell count reference ranges are not reported, since discordance with absolute values may lead to misinterpretation of CBC data. Current Interpretive Data was last revised on 2018. Blood specimen (specimen) 01/30/2021 2:37 PM CDT 01/30/2021 3:23 PM CDT Paulina Jones MD LAB BLOOD ORDERABLE S Final Result Performing Organization Address [facility] Co de Phone Number [facility] [address] [address] [employer] [place], [place] [id number] * (ABNORMAL) Hepatic function panel (01/30/2021 2:37 PM CDT) Pathologist [facility] Bilirubin, total 2.3(H) 0.1 - 1.2 mg/dL [facility] Bilirubin, direct 0.3 0.1 - 0.3 mg/dL [facility] Protein, pl 7.6 6.5 - 8.5 g/dL [facility] Albumin 4.6 3.5 - 5.0 g/dL [facility] Alk phos 61 40 - 130 Units/L [facility] ALT 76(H) 7 - 55 Units/L [facility] AST 52(H) 10 - 50 Units/L [facility] Blood specimen (specimen) 01/30/2021 2:37 PM CDT 01/30/2021 3:23 PM CDT Paulina Jones MD LAB BLOOD ORDERABLE S Final Result Performing Organization Address [facility] Co de Phone Number [facility] [address] [address] [facility] [address] [place], [place] [phone] * (ABNORMAL) Lipid panel (01/30/2021 2:37 PM CDT) [facility] Cholesterol 104 30 - 199 mg/dL [facility] Comment: [...] last revised on 2018. Chol/HDL ratio 2 [facility] Blood specimen (specimen) 01/30/2021 2:37 PM CDT 01/30/2021 3:23 PM CDT Paulina Jones MD LAB BLOOD ORDERABLE S Final Result Performing Organization Address [facility] Co de Phone Number [facility] [phone] [address] [place] [address] * CBC with auto differential (01/30/2021 2:37 PM CDT) WBC 7.2 3.8 - 9.9 K/cumm [facility] Hgb 16.3 13.0 - 17.5 g/dL [facility] Hct 46.6 38.9 - 50.3 % [facility] Plt 181 150 - 400 K/cumm [facility] MPV 11.2 9.1 - 12.3 fL [facility] RBC 5.14 4.30 - 5.80 M/cumm [facility] MCV 90.7 81.3 - 96.4 fL [facility] MCH 31.7 27.1 - 33.3 pg [facility] MCHC 35.0 32.3 - 35.7 g/dL [facility] RDW CV 12.3 11.1 - 14.9 % [facility] RDW SD 40.4 35.7 - 48.1 fL [facility] NRBC abs 0.00 0.00 - 0.01 K/cumm [facility] Blood specimen (specimen) 01/30/2021 2:37 PM CDT 01/30/2021 3:23 PM CDT Paulina Jones MD LAB BLOOD ORDERABLE S Final Result Performing Organization Address [facility]/ZIP Co de Phone Number [facility] [address] [address] [place] [address] documented in this encounter Visit Diagnoses Diagnosis Crohn's disease of small and large intestines with complication (HCC) documented in this encounter Care Teams Player Piano Technician Relationship Specialty Start Date End Date Kirstie Jarrell MD PCP - General 08/29/17 08/06/21 documented as of this encounter
--- OUTSIDE RECORDS SUMMARY | 2024-11-11 19:13 | XMS_ITS | Encounter Summary ---
Author Organization [facility] [employer] [facility] Address [address] [place] [address] Phone Care Team Providers Care Plate Molder Name Role Phone Kirstie Jarrell MD Primary Care Provider + Reason for Visit * Consultation (Routine) - Closed Specialty Diagnoses / Procedures Referred By Med bazan Referred To Contact Psychiatry Diagnoses Crohn's disease of both small and large intestine without complication (CMS/HCC) (HCC) Paulina Jones MD [address] [place] [address] Phone: tel: fax: Petra Bowman, PhD [id number] [place] [address] Phone: tel: fax: Referral ID Status Reason Start Date Expiration Date V isits Requested Visits Authorized [id number] Closed Specialty Services Required 01/15/2021 02/14/2022 1 1 Encounter Details Date Type Department Care Team (Late st Contact Info) Description 02/12/2021 11:00 AM CDT Telemedicine [facility] Psychiatry [facility] [facility] [address] [place] [address] Petra Bowman, PhD [address] [id number] Adjustment disorder with anxious mood (Primary Dx); Crohn's disease of both small [...] on file 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 male with a date of of 1980. Date of Evaluation: 02/12/2021 This was a telemedicine visit with Ranjit Peralta alone which took place via Real-time video connection (InTouch, Zoom or similar). During the visit, I was located at home and the patient was located at home in the [facility]. The patient visit started at 11:06 and ended at 12:15. The patient: has been informed that the visit may not be secure and acknowledged the information. The option of participating in a telephone or video visit during the [facility] emergencywas explained to them. After being given an opportunity to ask questions about and discuss this type of visit, they verbally consented to proceeding with the telephone/video visit and understand thatthis service replaces an office visit. Patient seen for a psychological evaluation. INFORMANT: The patient himself who appeared to be a reliable source of information. Additional information was obtained from Dr. Paulina Jones MD's note of 01/06/2021. CHIEF COMPLAINT: The patient was referred by Dr. Paulina Jones MD for help coping withhis gastrointestinal symptoms and anxiety. HISTORY OF PRESENT ILLNESS: The patient is being treated for Crohn's disease. He was originally diagnosed in 2006. He has not had any surgeries. He did have a partial obstruction at some point in thepast. He said that he is working with Dr. Jones to manage his Crohn's disease more effectively.He said that he has ???good and bad spurts???. He is being treated with Gisselle and Jluis. He he talked about how the pandemic has affected his life. He said that he is not traveling for work as much as he did. 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 However, because of his Crohn's he is ???nervous?? about playing basketball and being around other people in general. PSYCHIATRIC AND MEDICAL HISTORY: He has anxiety about how to interact safely with other people because he wants to avoid exposure to COVID-19. He said that when he is trying to go to sleep, he will think about work and his symptoms. He will also think about taking his children to the dentist and have anxiety about the possible need to use the restroom while he is sitting in his car waiting for them to finish with their appointments. FAMILY HISTORY: He was not asked about his parents. SOCIAL HISTORY: His 's Anju is 35. She works in a residential and they are trying to limit their exposure to COVID-19. 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 He said that works full-time. He works from 8:30 to 5:00 during the week. He is working from home at this point. He has three children: a 9-year-old son who he described as ???sometimes pessimistic???, a 6-year-old daughter who tends to be ???set in her ways ???and a son who is almost 2 years old. MENTAL STATUS EXAM: Orientation: Alert Memory: Grossly Intact Attention/Concentration: Normal Behavior: Generally calm Speech: Regular rate and rhythm Thought Process: Sequential and Goal-directed Content of Thought: No suicidal ideation expressed Affect: Euthymic Insight/Judgement: Good PSYCHOLOGICAL IMPRESSION: The patient is experiencing a significant amount of anxiety related to his medical issues and the effects of the pandemic. At the end of the session, he asked me about whether anti-anxiety medication might be helpful. We discussed the pros and cons of that and that it would not be a good long-term solution if he was wanting to take a short acting medication such as a benzodiazepine. However, I also said that it was possible that it might be useful as a bridge to decrease his anxiety so that he can use the nonpharmacological techniques that we discuss for helping him deal with the stress and anxiety that is triggered in specific situations. We agreed to discuss thisissue in more detail at the next session. DIAGNOSIS: (F43.22) Adjustment disorder with anxious mood (primary encounter diagnosis) (K50.80) Crohn's disease of both small and large intestine without complication (CMS/HCC) Plan: Ambulatory referral to Psychiatry TREATMENT PLAN: A follow up appointment was scheduled for 1 on 03/05. Therapy will focus on helping the patient to improve emotional modulation skills, improve stress management skills and deal more effectively with gastrointestinal symptoms. We talked about doing cue-focused diaphragmatic breathing. We talked about how guided imagery recordings can be helpful with gastrointestinal symptoms and can even be helpful with IBD symptoms because of the bidirectional relationship between IBD symptoms and stress. I told him that I would send him three guided imagery recordings so he can see whether they are useful. We also talked about him accessing the [facility] program. The patient understands and agrees with the treatment plan. Petra Bowman, Ph.D. Clinical Psychologist [facility] Department of Psychiatry [facility] Dictated with dictation software Content of note will not result in changes in the allergy or medication lists or in changes to the problem list in terms of non-psychological diagnoses. documented in this encounter Plan of Treatment Upcoming Encounters Date Type Department Care Team (Late st Contact Info) Description 11/09/2024 Plan of Care Documentation [address] [address] [place] [address] documented as of this encounter Visit Diagnoses Diagnosis Adjustment disorder with anxious mood- Primary Adjustment disorder with anxiety Crohn's disease of both small and large intestine without complication (CMS/HCC) (HCC) documented in this encounter Orders Outpatient Referral Count Last Ordered Date st Ordered Date AMB REFERRAL TO PSYCHIATRY 1 02/12/2021 documented in this encounter Care Teams Plate Molder Relationship Specialty Start Date End Date Kirstie Jarrell MD PCP - General 08/29/17 08/06/21 documented as of this encounter
--- OUTSIDE RECORDS SUMMARY | 2024-11-11 19:13 | XMS_ITS | Encounter Summary ---
Author Organization [facility] [employer] [facility] Address [address] [place] [address] Phone Care Team Providers Care Senior Technical Architect Name Role Phone Kirstie Jarrell MD Primary Care Provider + Reason for Referral * Consultation (Routine) - Closed Specialty Diagnoses / Procedures Referred By Med bazan Referred To Contact Psychiatry Diagnoses Crohn's disease of both small and large intestine without complication (CMS/HCC) (HCC) Paulina Jones MD [address] [place] [address] Phone: tel: fax: Petra Bowman, PhD 1 [facility] [address] [place] [address] Phone: tel: fax: Referral ID Status Reason Start Date Expiration Date V isits Requested Visits Authorized [id number] Closed Specialty Services Required 01/15/2021 02/14/2022 1 1 Question Answer Please select the performing region: [facility] (All Locations) [[id number]] To provider: PETRA BOWMAN [[id number]] # of visits: 1 Comments Pt being referred for anxiety 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 Encounter Details Date Type Department Care Team (Late st Contact Info) Description 01/15/2021 Orders Only [facility] Gastroenterology [address] [place] [address] [place] [address] Paulina Jones MD [address] [place] [address] Crohn's disease of both small and large intestine without complication (CMS/HCC) (Primary Dx) Social History Tobacco Use Types Packs/Day Years Used Date Smoking Tobacco: Former Cigarettes Q uit: 2004 Smokeless Tobacco: Never Alcohol Use Standard Drinks/Week Comments Yes 0 (1 standard drink = 0.6 oz pur e alcohol) occasional Sex and Gender Information Value Date Recorded Sex Assigned at Not on file 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 Gender Identity Not on file Sexual Orientation Not on file documented as of this encounter Plan of Treatment Upcoming Encounters Date Type Department Care Team (Late st Contact Info) Description 11/09/2024 Plan of Care Documentation [address] [address] [place] [phone] Scheduled Referrals Name Type Priority Associated Diagnoses Orde r Schedule Ambulatory referral to Psychiatry Outpatient Referral Routine Crohn's disease of both small and large intestine without complication (CMS/HCC) Expected: 01/29/2021 (Approximate), Expires: 01/15/2022 documented as of this encounter Visit Diagnoses Diagnosis Crohn's disease of both small and large intestine without complication (CMS/HCC) (HCC)- Primary documented in this encounter Care Teams Senior Technical Architect Relationship Specialty Start Date End Date Kirstie Jarrell MD PCP - General 08/29/17 08/06/21 documented as of this encounter
--- OUTSIDE RECORDS SUMMARY | 2024-11-11 19:13 | XMS_ITS | Encounter Summary ---
Author Organization [facility] [employer] [facility] Address [address] [place] [address] Phone Care Team Providers Care Linoleum Floor Installer Name Role Phone Kirstie Jarrell MD Primary Care Provider + Encounter Details Date Type Department Care Team (Late st Contact Info) Description 07/29/2021 10:30 AM CDT Office Visit [facility] Gastroenterology [address] [facility] Medical Office Building [address] [place] [address] Paulina Jones MD [address] [place] [address] Unknown status of immunity to COVID-19 virus (Primary Dx) Social History Tobacco Use Types Packs/Day Years Used Date Smoking Tobacco: Former Cigarettes Q uit: 2005 Smokeless Tobacco: Never Alcohol Use Standard Drinks/Week Comments Yes 0 (1 standard drink = 0.6 oz pur e alcohol) occasional Sex and Gender Information Value Date Recorded Sex Assigned at Not on file 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 Gender Identity Not on file Sexual Orientation Not on file documented as of this encounter Last Filed Vital Signs Vital Sign Reading Time Taken Comments Blood Pressure 135/91 07/29/2021 11:17 AM CDT Pulse 54 07/29/2021 11:17 AM CDT Temperature 36.6 ??C (97.9 ??F) 07/29/2021 1 1:17 AM CDT Respiratory Rate - - Oxygen Saturation - - Inhaled Oxygen Concentration - - Weight 111.7 kg (246 lb 3.2 oz) 021 11:17 AM CDT Height 190.5 cm (6' 3 ) 07/29/2021 11:1 7 AM CDT Body Mass Index 30.77 07/29/2021 11:17 AM CDT documented in this encounter Patient Instructions * Patient Instructions* Penelope Lai - 07/29/2021 10:30 AM CDT Schedule Routine Office Visit in 6 months - January 2022 Obtain Yearly TB Blood test with Colon scheduled on 08/07/2021 Routine Safety Labs due with next infusion on 08/24/2021 Xeljanz 22 mg - one sample bottle given to patient in clinic - Take either 10 mg Twice Daily or take 22 mg Daily Obtain Covid Bryan Blood Test - only drawn at [facility] - order given to patient documented in this encounter Progress Notes * Lawrence Hurtado MD - 07/29/2021 10:30 AM CDT Reason for visit: Follow-up on ileocolonic and perianal Crohn's disease, diagnosed in 2006. He takes Entyvio [id number] and Xeljanz 10 mg BID. Problem List: 1. Ileocolonic and perianal Crohn's [...] intermittent obstructions, but when he spoke to [facility], the decision was made to hold off [...] been taking it consistently for the past 7 months. 2. History of gout, which led to discontinuation of thiopurines. The patient was not able to restart it, as he felt like it caused a lot nausea, vomiting, as well as could not tolerate allopurinol. 3. Positive JERALD virus, titer of 2.15. HPI: Ranjit is a gabby 40 y.o. male, with a past medical history of ileocolonic and perianal Crohn's disease, who presents today for follow-up. ?? The patient was last seen in clinic in January 2021. He has been taking Entyvio every 4 weeks, starting with induction dosing in October 2020. He has also been taking Xeljanz daily. However, he has been taking his Xeljanz tablets at the same time daily, rather than splitting up the 10 mg in the morning and at night. Since his last visit, Mr. Peralta reports that he doesn't feel at 100%, he feels that he has some inflammation in his rectum that he can't quite get under control. He reports regular urgency, which contributes to some avoidance behavior when going outside for outings. He occasionally notes small bits of blood in the toilet bowl, but not full toilet bowls full of blood. He deniesany abdominal pain or obstructive symptoms. He has not been using the Uceris since his last visit. The patient otherwise has no other complaints. He denies any extra-intestinal manifestations of hisCrohn's disease, including joint pains, vision changes, or new rashes. He denies any fevers, chills, or weight loss. CBC, LFTs, and lipid panel from July 2021 are unremarkable. He has a colonoscopy scheduled in 1- 2 weeks. He received the Moderna vaccine in March. Review of Systems: On complete review of systems, all other systems are negative. Allergies Allergen Reactions ??? Mercaptopurine Analogues (Thiopurines) Joint pain Severe gout like joint pain that starts within days of taking medicine Current Outpatient Medications Medication Sig Dispense Refill ??? ALPRAZolam (XANAX) 0.25 mg tablet Take 1 tablet (0.25 mg total) by mouth daily as needed for anxiety. 15 tablet 0 ??? budesonide (Uceris) 2 mg/actuation foam Insert into the rectum 1 metered dose(2 mg) twice dailyfor 2 weeks 1 Can 1 ??? ergocalciferol (VITAMIN D) 50,000 unit capsule Take 1 cap PO monthly 12 capsule 0 ??? folic acid (FOLVITE) 1 mg tablet Take 1 tablet (1 mg total) by mouth daily 90 tablet 3 ??? hydrocortisone-pramoxine (PROCTOFOAM-HC) rectal foam Insert 1 applicator into the rectum 2 (two) times a day 10 g 1 ??? niypuemc-egfjfgnau-ccrwydnhhujli (MAXITROL) 3.5mg/mL-10,000 unit/mL-0.1 % ophthalmic suspensionINSTILL 1 GTT TO OS BID 0 ??? tofacitinib (Xeljanz) 10 mg tablet Take 1 tablet (10 mg total) by mouth 2 (two) times a day Safety labs required every 3 months for med refills, next labs due ~ 07/2021. (CBC, LFT, Lipid Panel). 60 tablet 5 ??? vedolizumab (ENTYVIO) 300 mg recon soln Infuse 300 mg into a venous catheter every 4 (four) weeks Every 4 weeks as of 10/28/2020 based on low drug level At [facility] No current facility-administered medications for this visit. Physical Exam: There were no vitals taken for this visit. General: Awake, alert, no apparent distress, well nourished HEENT: Normocephalic, atraumatic, anicteric, conjunctiva normal Neck: Supple, no obvious masses Pulmonary: Clear to auscultation bilaterally Cardiovascular: Regular rhythm and rate, normal S1/S2, no murmurs/rubs/gallops Abdomen: Soft, non-tender, non-distended, normoactive bowel sounds, no palpable masses, no rebound or guarding Extremities: Warm and well perfused, no cyanosis, no clubbing, no edema Skin: Warm, dry, no rashes Neuro: No focal deficits Psych: Normal affect and mood Labs: Lab on 07/24/2021 Component Date Value Ref Range Status ??? WBC 07/24/2021 10.2* 3.8 - 9.9 K/cumm Final ??? Hgb 07/24/2021 12.7* 13.0 - 17.5 g/dL Final ??? Hct 07/24/2021 39.1 38.9 - 50.3 % Final ??? Plt 07/24/2021 301 150 - 400 K/cumm Final ??? MPV 07/24/2021 10.5 9.1 - 12.3 fL Final ??? RBC 07/24/2021 4.48 4.30 - 5.80 M/cumm Final ??? MCV 07/24/2021 87.3 81.3 - 96.4 fL Final ??? MCH 07/24/2021 28.3 27.1 - 33.3 pg Final ??? MCHC 07/24/2021 32.5 32.3 - 35.7 g/dL Final ??? RDW CV 07/24/2021 14.5 11.1 - 14.9 % Final ??? RDW SD 07/24/2021 46.1 35.7 - 48.1 fL Final ??? NRBC abs 07/24/2021 0.00 0.00 - 0.01 K/cumm Final ??? Bilirubin, total 07/24/2021 0.6 0.1 - 1.2 mg/dL Final ? ? Bilirubin, direct 07/24/2021 <0.2 0.1 - 0.3 mg/dL Final ??? Protein, pl 07/24/2021 7.3 6.5 - 8.5 g/dL Final ??? Albumin 07/24/2021 4.4 3.5 - 5.0 g/dL Final ??? Alk phos 07/24/2021 66 40 - 130 Units/L Final ??? ALT 07/24/2021 30 7 - 55 Units/L Final ??? AST 07/24/2021 35 10 - 50 Units/L Final ??? Cholesterol 07/24/2021 197 30 - 199 mg/dL Final ? ? Triglycerides 07/24/2021 122 <=149 mg/dL Final ? ? HDL 07/24/2021 36* >=40 mg/dL Final ? ? LDL, calculated 07/24/2021 137* <=129 mg/dL Final ??? Non-HDL Cholesterol 07/24/2021 161 mg/dL Final ??? Chol/HDL ratio 07/24/2021 5 Final ??? Neutrophil abs 07/24/2021 7.5* 1.7 - 6.5 K/cumm Final ??? Imm gran abs 07/24/2021 0.0 0.0 - 0.1 K/cumm Final ??? Lymphocyte abs 07/24/2021 1.9 0.8 - 3.3 K/cumm Final ??? Monocyte abs 07/24/2021 0.7 0.2 - 0.8 K/cumm Final ??? Eosinophil abs 07/24/2021 0.0 0.0 - 0.5 K/cumm Final ??? Basophil abs 07/24/2021 0.0 0.0 - 0.1 K/cumm Final ??? Neutrophil pct 07/24/2021 74.0 % Final ??? Imm gran pct 07/24/2021 0.2 % Final ??? Lymphocyte pct 07/24/2021 18.7 % Final ??? Monocyte pct 07/24/2021 6.4 % Final ??? Eosinophil pct 07/24/2021 0.3 % Final ??? Basophil pct 07/24/2021 0.4 % Final Lab on 06/25/2021 Component Date Value Ref Range Status ??? WBC 06/25/2021 6.9 3.8 - 9.9 K/cumm Final ??? Hgb 06/25/2021 12.5* 13.0 - 17.5 g/dL Final ??? Hct 06/25/2021 39.5 38.9 - 50.3 % Final ??? Plt 06/25/2021 285 150 - 400 K/cumm Final ??? MPV 06/25/2021 10.7 9.1 - 12.3 fL Final ??? RBC 06/25/2021 4.43 4.30 - 5.80 M/cumm Final ??? MCV 06/25/2021 89.2 81.3 - 96.4 fL Final ??? MCH 06/25/2021 28.2 27.1 - 33.3 pg Final ??? MCHC 06/25/2021 31.6* 32.3 - 35.7 g/dL Final ??? RDW CV 06/25/2021 14.2 11.1 - 14.9 % Final ??? RDW SD 06/25/2021 46.0 35.7 - 48.1 fL Final ??? NRBC abs 06/25/2021 0.00 0.00 - 0.01 K/cumm Final ??? Neutrophil abs 06/25/2021 4.5 1.7 - 6.5 K/cumm Final ??? Imm gran abs 06/25/2021 0.0 0.0 - 0.1 K/cumm Final ??? Lymphocyte abs 06/25/2021 1.7 0.8 - 3.3 K/cumm Final ??? Monocyte abs 06/25/2021 0.6 0.2 - 0.8 K/cumm Final ??? Eosinophil abs 06/25/2021 0.1 0.0 - 0.5 K/cumm Final ??? Basophil abs 06/25/2021 0.0 0.0 - 0.1 K/cumm Final ??? Neutrophil pct 06/25/2021 64.7 % Final ??? Imm gran pct 06/25/2021 0.3 % Final ??? Lymphocyte pct 06/25/2021 25.2 % Final ??? Monocyte pct 06/25/2021 8.3 % Final ??? Eosinophil pct 06/25/2021 1.2 % Final ??? Basophil pct 06/25/2021 0.3 % Final Lab on 05/29/2021 Component Date Value Ref Range Status ??? WBC 05/29/2021 9.1 3.8 - 9.9 K/cumm Final ??? Hgb 05/29/2021 12.8* 13.0 - 17.5 g/dL Final ??? Hct 05/29/2021 39.6 38.9 - 50.3 % Final ??? Plt 05/29/2021 256 150 - 400 K/cumm Final ??? MPV 05/29/2021 10.5 9.1 - 12.3 fL Final ??? RBC 05/29/2021 4.54 4.30 - 5.80 M/cumm Final ??? MCV 05/29/2021 87.2 81.3 - 96.4 fL Final ??? MCH 05/29/2021 28.2 27.1 - 33.3 pg Final ??? MCHC 05/29/2021 32.3 32.3 - 35.7 g/dL Final ??? RDW CV 05/29/2021 14.4 11.1 - 14.9 % Final ??? RDW SD 05/29/2021 46.1 35.7 - 48.1 fL Final ??? NRBC abs 05/29/2021 0.00 0.00 - 0.01 K/cumm Final ??? Bilirubin, total 05/29/2021 0.6 0.1 - 1.2 mg/dL Final ? ? Bilirubin, direct 05/29/2021 <0.2 0.1 - 0.3 mg/dL Final ??? Protein, pl 05/29/2021 7.1 6.5 - 8.5 g/dL Final ??? Albumin 05/29/2021 4.4 3.5 - 5.0 g/dL Final ??? Alk phos 05/29/2021 65 40 - 130 Units/L Final ??? ALT 05/29/2021 22 7 - 55 Units/L Final ??? AST 05/29/2021 26 10 - 50 Units/L Final ??? Cholesterol 05/29/2021 194 30 - 199 mg/dL Final ? ? Triglycerides 05/29/2021 171* <=149 mg/dL Final ? ? HDL 05/29/2021 35* >=40 mg/dL Final ? ? LDL, calculated 05/29/2021 125 <=129 mg/dL Final ??? Non-HDL Cholesterol 05/29/2021 159 mg/dL Final ??? Chol/HDL ratio 05/29/2021 6 Final ??? Neutrophil abs 05/29/2021 6.5 1.7 - 6.5 K/cumm Final ??? Imm gran abs 05/29/2021 0.0 0.0 - 0.1 K/cumm Final ??? Lymphocyte abs 05/29/2021 1.7 0.8 - 3.3 K/cumm Final ??? Monocyte abs 05/29/2021 0.8 0.2 - 0.8 K/cumm Final ??? Eosinophil abs 05/29/2021 0.0 0.0 - 0.5 K/cumm Final ??? Basophil abs 05/29/2021 0.0 0.0 - 0.1 K/cumm Final ??? Neutrophil pct 05/29/2021 71.7 % Final ??? Imm gran pct 05/29/2021 0.2 % Final ??? Lymphocyte pct 05/29/2021 18.9 % Final ??? Monocyte pct 05/29/2021 8.5 % Final ??? Eosinophil pct 05/29/2021 0.4 % Final ??? Basophil pct 05/29/2021 0.3 % Final Assessment/Plan: Ranjit is a gabby 39-year-old male with a past medical history of ileal as well as perianal/proctitis, who presents today for follow-up, currently on Entyvio with recent increase in frequency to every 4 weeks, as well as Xeljanz. He still has symptoms of urgency and tenesmus. We discussed that the Xeljanz needs to be taken 10 mg twice daily, once in the morning and once at night, for full effect. He was unaware that this was the case. He will try taking the Xeljanz as prescribed for the next few weeks until his Colonoscopy. We will follow-up the colonoscopy results. If his disease is limited to his rectum, he could benefit from an occasional topical steroid. We also discussed using epsom salt baths to improve night-time urgency. In addition, we will obtain an M-spike level to assess hisantibody response to the Moderna vaccine. We will see the patient back in clinic in 6 months. The patient was given ample opportunity to ask any questions and their questions were answered. Cosigned by Paulina Jones MD at 07/29/2021 12:24 PM CDT Associated attestation - Paulina Jones MD - 07/29/2021 12:24 PM CDT I have seen and examined the patient. I agree with the findings and plan of care as documented in the resident/fellow's note. My total encounter time on 07/29/2021 was 30 minutes which was spent in [...] Info) Description 11/09/2024 Plan of Care Documentation [address] [address] [address] [place] [address] Scheduled Orders Name Type Priority Associated Diagnoses Orde r Schedule TEST CODE: 09659 SARS-CoV-Z ANTIBODY (IgG) SPIKE SEMI QUANTITATIVE - Miscellaneous Test Lab Routine Unknown status of immunity to COVID-19 virus Expected: 07/29/2021, Expires: 07/29/2022 documented as of this encounter Procedures Procedure Name Priority Date/Time Associated Diagnosis Comments SARS COV 2 AB (IGG) SPIKE, SEMI QN Routine 07/31/2021 1:05 PM CDT COPY(IES) SENT TO: Routine 07/31/2021 1: 05 PM CDT documented in this encounter Results * (ABNORMAL) SARS COV 2 AB (IGG) SPIKE, SEMI QN (07/31/2021 1:05 PM CDT) SARS COV 2 AB (IGG) SPIKE, SEMI QN >20.00(H) <1.00 index [facility] Comment: Reference Range INDEX ? INTERPRETATION <1.00 ? Negative > or = 1.00 ? Positive ?? This test is intended to help identify individuals with antibodies to SARS-CoV-2 (COVID-19). The results of this semi-quantitative test should not be interpreted as an indication or degree of immunity or protection from reinfection. ?? A test result that is 1.00 or more (Positive) means antibodies to SARS-CoV-2 were detected in the blood sample by the test. This could mean that the individual may have an immune response to a recent or prior infection with SARS-CoV-2. Positive results may occur after COVID-19 vaccination, but the clinical significance of a positive antibody result for individuals that have received a COVID-19 vaccine is unknown, and the performance of the test has not been established in COVID-19 vaccinees. False positive results for the test may occur due to cross- reactivity from pre-existing antibodies or other possible causes. A test result that is less than 1.00 (Negative) means that antibodies were not detected in the blood sample by the test. This could mean that the individual has not been previously infected with SARS-CoV-2. The clinical significance of a negative antibody result for individuals that have received a COVID-19 vaccine is unknown. The performance of the test has not been established in COVID-19 vaccinees. False negative results for the test may occur if the individual's antibodies have not reached a sufficient level for the test to be able to detect them. Antibodies can take up to two to three weeks (sometimes longer) to develop after someone is infected. How long antibodies to SARS-CoV-2 last after infection is not known. This test should not be used to diagnose an active SARS- CoV-2 infection. If an active infection is suspected, direct molecular or antigen testing for SARS-CoV-2 is recommended. ?? Please review the Fact Sheets available for healthcare providers and patients using the following websites: https://www.BrightScope.com/home/Covid-19/HCP/antibody/ fact-sheet8 ?? https://www.[employer]rightScope.Dormir/home/Covid-19/Patients/ antibody/fact-sheet8 ?? Healthcare Providers: For additional information please refer to: http://education.Webshoz/faq/LFP308 (This link is being provided for informational/ educational purposes only.) ?? This test has been authorized by the FDA under an Emergency Use Authorization (EUA) for use by authorized laboratories. The FDA authorized labeling is available on the [employer] website: www.Epiphany/Covid19. ? Your request to have a duplicate copy faxed has been acknowledged. ?Queued to: ??[id number] 07/31/2021 1:05 PM CDT 07/31/2021 1:07 PM CDT Paulina Jones MD LAB BLOOD ORDERABLE S Final Result [facility] [address] [place] [address] * COPY(IES) SENT TO: (07/31/2021 1:05 PM CDT) COPY(IES) SENT TO: [facility] Comment: ?[facility] ?COPY TO ACCOUNT ?[id number] ?[place] [address] 07/31/2021 1:05 PM CDT 07/31/2021 1:07 PM CDT Paulina Jones MD LAB BLOOD ORDERABLE S Final Result [facility] documented in this encounter Visit Diagnoses Diagnosis Unknown status of immunity to COVID-19 virus- Primary documented in this encounter Care Teams Linoleum Floor Installer Relationship Specialty Start Date End Date Kirstie Jarrell MD PCP - General 08/29/17 08/06/21 documented as of this encounter
--- OUTSIDE RECORDS SUMMARY | 2024-11-11 19:13 | XMS_ITS | Encounter Summary ---
Author Organization [facility] [employer] [facility] Address [address] [place] [address] Phone Care Team Providers Care Director Integrated Name Role Phone Kirstie Jarrell MD Primary Care Provider + Reason for Visit * Episode Based Medications (Routine) - Closed Specialty Diagnoses / Procedures Referred By Med bazan Referred To Contact Diagnoses Crohn's disease of small and large intestines with complication (HCC) Procedures WA INJECTION, VEDOLIZUMAB Paulina Jones MD [address] [place] [address] Phone: tel: fax: [facility] [address] [place] [address] [address] [place] [address] Phone: tel: fax: Referral ID Status Reason Start Date Expiration Date Visits Re quested Visits Authorized [id number] Closed 11/03/2020 11/03/2022 99 99 Encounter Details Date Type Department Care Team (Late st Contact Info) Description 12/05/2020 12:30 PM MULTIMEDIA COORDINATOR Infusion [facility] [address] [place] [address] Office [address] [place] [address] Crohn's disease of small and [...] on file 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 Patient denies any active infections or upcoming surgeries. PIV placed, labs obtained and dose infused. Patient tolerated infusion well. IMEDIA COORDINATOR documented in this encounter Miscellaneous Notes * Addendum Note - Tommy Esparza CLT - 12/05/2020 12:30 PM CSTAddended by: TOMMY ESPARZA on: 12/05/2020 01:45 PM Modules accepted: Orders IMEDIA COORDINATOR documented in this encounter Plan of Treatment Upcoming Encounters Date Type Department Care Team (Late st Contact Info) Description 11/09/2024 Plan of Care Documentation [address] [place] [address] documented as of this encounter Results * (ABNORMAL) Lipid panel (12/05/2020 10:45 AM MULTIMEDIA COORDINATOR) Cholesterol 191 30 - 199 mg/dL [facility] Comment: Interpretive Data Ages < or [...] on 2018. Triglycerides 131 <=149 mg/dL [facility] Comment: Interpretive Data [...] 2018. LDL, calculated 131(H) <=129 mg/dL [facility] Comment: Interpretive Data [...] GO Blood specimen (specimen) 12/05/2020 10:45 AM MULTIMEDIA COORDINATOR 12/05/2020 2:23 PM MULTIMEDIA COORDINATOR us Paulina Jones MD LAB BLOOD ORDERABLE S Final Result [facility] [id number] [facility]. Department [place] [address] documented in this encounter Visit Diagnoses Diagnosis Crohn's disease of small and large intestines with complication (HCC)- Primary documented in this encounter Administered Medications Inactive Administered Medications - up to 3 most recent administrations Medication Order MAR Action Action Date Dose Rate Site sodium chloride 0.9% flush 10 mL 10 mL, intravenous, As needed, line care, Starting on Tue12/05/20 at 1237, Flush pre and post IV catheter use.Indications:Crohn's disease of small and large intestines with complication (HCC) Given 12/05/2020 12:50 PM MULTIMEDIA COORDINATOR 10 mL vedolizumab (ENTYVIO) 300 mg in sodium chloride 0.9% 250 mL IVPB 300 mg, intravenous, at 510 mL/hr, Administer over 30 Minutes, Once, On Tue12/05/20 at 1345, For 1 doseIndications:Crohn's disease of small and large intestines with complication (HCC) New Bag 12/05/2020 12:54 PM MULTIMEDIA COORDINATOR 300 mg 510 mL/hr documented in this encounter Orders Nursing Count Last Ordered Date First Orde red Date ONCBCN PROVIDER COMMUNICATION 1 1 VITAL SIGNS PRE-INFUSION 1 12/05/2020 Appointment Requests Count Last Ordered Date Fi rst Ordered Date INFUSION APPT REQUEST 60 MIN 2 01/30/2021 12/05/2020 documented in this encounter Care Teams Director Integrated Relationship Specialty Start Date End Date Kirstie Jarrell MD PCP - General 08/29/17 08/06/21 documented as of this encounter
--- OUTSIDE RECORDS SUMMARY | 2024-11-11 19:13 | XMS_ITS | Encounter Summary ---
Author Organization [facility] [employer] of [facility] Address [address] [place] [address] Phone Care Team Providers Care Aircraft Pneudraulics Repairer Name Role Phone Kirstie Jarrell MD Primary Care Provider + Reason for Visit * Episode Based Medications (Routine) - Closed Specialty Diagnoses / Procedures Referred By Med bazan Referred To Contact Diagnoses Crohn's disease of small and large intestines with complication (HCC) Procedures OR INJECTION, VEDOLIZUMAB Paulina Jones MD [address] [place] [address] Phone: tel: fax: [facility] Allergy and Immunology [address] [place] [address] Office [address] [place] [address] Phone: tel: fax: Referral ID Status Reason Start Date Expiration Date Visits Re quested Visits Authorized [id number] Closed 11/03/2020 11/03/2022 99 99 Encounter Details Date Type Department Care Team (Late st Contact Info) Description 06/25/2021 12:30 PM CDT Infusion [facility] Infusion Therapy [address] [place] [address] Office [address] [place] [address] Crohn's disease of small and [...] on file 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 Pt states that he feels well today and has not had any recent fevers or infections. PIV started and pt tolerated well. Will continue to monitor. Pt infusion completed at 1342. Pt tolerated well. Will continue to monitor documented in this encounter Miscellaneous Notes * Addendum Note - Lexis Diamond CLT - 06/25/2021 12:30 PM CDTAddended by: LEXIS DIAMOND on: 06/25/2021 04:17 PM Modules accepted: Orders documented in this encounter Plan of Treatment Upcoming Encounters Date Type Department Care Team (Late st Contact Info) Description 11/09/2024 Plan of Care Documentation [facility] - [address] [address] [address] [place] [address] documented as of this encounter Visit Diagnoses Diagnosis Crohn's disease of small and large intestines with complication (HCC)- Primary documented in this encounter Administered Medications Inactive Administered Medications - up to 3 most recent administrations Medication Order MAR Action Action Date Dose Rate Site sodium chloride 0.9% flush 10 mL 10 mL, intravenous, As needed, line care, Starting on Ashlyn 06/25/21 at 1240, Flush pre and post IV catheter use.Indications:Crohn's disease of small and large intestines with complication (HCC) Given 06/25/2021 1:00 PM CDT 10 mL vedolizumab (ENTYVIO) 300 mg in sodium chloride 0.9% 250 mL IVPB 300 mg, intravenous, at 510 mL/hr, Administer over 30 Minutes, Once, On Ashlyn 06/25/21 at 1345, For 1 doseIndications:Crohn's disease of small and large intestines with complication (HCC) New Bag 06/25/2021 1:09 PM CDT 300 mg 510 mL/hr documented in this encounter Orders Nursing Count Last Ordered Date First Orde red Date ONCBCN PROVIDER COMMUNICATION 1 1 VITAL SIGNS PRE-INFUSION 1 06/25/2021 documented in this encounter Care Teams Aircraft Pneudraulics Repairer Relationship Specialty Start Date End Date Kirstie Jarrell MD PCP - General 08/29/17 08/06/21 documented as of this encounter
--- OUTSIDE RECORDS SUMMARY | 2024-11-11 19:13 | XMS_ITS | Encounter Summary ---
Author Organization [facility] Address [address] [place] [address] Phone Care Team Providers Care Health Science Instructor Name Role Phone Kirstie Jarrell MD Primary Care Provider + Encounter Details Date Type Department Care Team (Late st Contact Info) Description 02/27/2021 Orders Only [facility] Gastroenterology [address] 8[address] [place] [address] [place] [address] Rita Lama RN Social History Tobacco Use Types Packs/Day Years Used Date Smoking Tobacco: Former Cigarettes Q uit: 2005 Smokeless Tobacco: Never Alcohol Use Standard Drinks/Week Comments Yes 0 (1 standard drink = 0.6 oz pur e alcohol) occasional Sex and Gender Information Value Date Recorded Sex Assigned at Not on file 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
--- OUTSIDE RECORDS SUMMARY | 2024-11-11 19:13 | XMS_ITS | Encounter Summary ---
Author Organization [facility] [employer] of [facility] Address [address] [place] [address] Phone Care Team Providers Care Mirror Installer Name Role Phone Kirstie Jarrell MD Primary Care Provider + Reason for Visit * Consultation (Routine) - Closed Specialty Diagnoses / Procedures Referred By Med bazan Referred To Contact Psychiatry Diagnoses Crohn's disease of both small and large intestine without complication (CMS/HCC) (HCC) Paulina Jones MD [address] [place] [address] Phone: tel: fax: Petra Bowman, PhD [id number] [place] [address] Phone: tel: fax: Referral ID Status Reason Start Date Expiration Date V isits Requested Visits Authorized [id number] Closed Specialty Services Required 01/15/2021 02/14/2022 1 1 Encounter Details Date Type Department Care Team (Late st Contact Info) Description 03/05/2021 1:00 PM CDT Telemedicine [facility] Psychiatry [address] [place] [address] Petra Bowman, PhD [id number] [place], [place] [id number] Adjustment disorder with anxious mood (Primary Dx) Social History Tobacco Use Types Packs/Day Years Used Date Smoking Tobacco: Former Cigarettes Q uit: 2004 Smokeless Tobacco: Never Alcohol Use Standard Drinks/Week Comments Yes 0 (1 standard drink = 0.6 oz pur e alcohol) occasional Sex and Gender Information Value Date Recorded Sex Assigned at Not on file 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 Visit Information This was a telemedicine visit with Ranjit Rusty Peralta alone which took place via Real-time video connection ([employer], Zoom or similar). During the visit, I was located at home and the patient was located in the state of [place]. The patient visit started at 1:02 and ended at 2:11. The patient: has been informed that the visit may not be secure and acknowledged the information. The option of participating in a telephone or video visit during the [facility] emergency[facility] explained to them. After being [...] Insight/Judgement: Good The patient said that he has been busier. 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 He and his wentout for dinner. We talked about how being active helps him to feel better. He said that he has been listening to the guided imagery recordings in the morning and evening. He said that they help him relax and he falls asleep a little earlier. He is anxious about the increase in activities that require him to be away from home. He is anxiousabout going to an all-day meeting for work or participating in a golf activity associated with work. We talked about the nonpharmacological techniques that he can use to help him cope. He would also like to try some anti-anxiety medication for the times when his stress level is quite high. I said that I would let Dr. Jones know that I thought that this would be appropriate as long as he understood that the medication would just be used to help him while he improves his coping skills. I saidthat one prescription without refills seemed as though it could be helpful because the medication mi ght make it easier for him to participate in some of the activities that otherwise he might avoid or develop a high level of anxiety about. We talked about ways of dealing with anticipatory anxiety. We talked about the importance of continuing to shift his attention from his anxiety and negative thoughts to the present. I will send him more guided imagery recordings developed for IBD patients. I provided cognitive behavioral psychotherapy regarding coping more effectively with gastrointestinal symptoms. Assessment The patient's symptoms are somewhat improved. He is working on learning techniques to cope more effectively with gastrointestinal symptoms. Progress is good. Diagnosis (F43.22) Adjustment disorder with anxious mood (primary encounter diagnosis) Plan A follow up appointment was scheduled for 1:00 on 04/16. Therapy will continue to focus on helping the patient to use coping skills more effectively and deal more effectively with gastrointestinal symptoms. The patient understands and agrees with the treatment plan. Content of note will not result in changes in the allergy or medication lists or in changes to the problem list in terms of non-psychological diagnoses. documented in this encounter Plan of Treatment Upcoming Encounters Date Type Department Care Team (Late st Contact Info) Description 11/09/2024 Plan of Care Documentation [facility] - [address] [address] [address] [place] [address] documented as of this encounter Visit Diagnoses Diagnosis Adjustment disorder with anxious mood- Primary Adjustment disorder with anxiety documented in this encounter Care Teams Mirror Installer Relationship Specialty Start Date End Date Kirstie Jarrell MD PCP - General 08/29/17 08/06/21 documented as of this encounter
--- OUTSIDE RECORDS SUMMARY | 2024-11-11 19:13 | XMS_ITS | Encounter Summary ---
Author Organization [facility] [employer] [facility] Address [address] [place] [address] Phone Care Team Providers Care Manager Switch Name Role Phone Kirstie Jarrell MD Primary Care Provider + Reason for Visit * Episode Based Medications (Routine) - Closed Specialty Diagnoses / Procedures Referred By Med bazan Referred To Contact Diagnoses Crohn's disease of small and large intestines with complication (HCC) Procedures [place] INJECTION, VEDOLIZUMAB Paulina Jones MD [address] [place] [address] Phone: tel: fax: [facility] Allergy and Immunology [address] [place] [address] [address] [place] [address] Phone: tel: fax: Referral ID Status Reason Start Date Expiration Date Visits Re quested Visits Authorized [id number] Closed 11/03/2020 11/03/2022 99 99 Encounter Details Date Type Department Care Team (Late st Contact Info) Description 10/24/2020 12:00 PM MODEL AND MOLD MAKER Infusion [facility] Infusion Therapy [address] [place] [address] [address] [place] [address] Crohn's disease of small and [...] on file 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 Pt states that he feels well today. Pt states that he has not had any recent fevers or infections. PIV started and labs drawn with no difficulties. Pt tolerated PIV well. Will continue to monitor. Pt infusion completed at 1310. Pt tolerated well. Pt has no questions or concerns at this time L AND MOLD MAKER documented in this encounter Miscellaneous Notes * Addendum Note - Merced Fonseca CLT - 10/24/2020 12:00 PM CSTAddended by: MERCED FONSECA on: 10/24/2020 02:35 PM Modules accepted: Orders L AND MOLD MAKER documented in this encounter Plan of Treatment Upcoming Encounters Date Type Department Care Team (Late st Contact Info) Description 11/09/2024 Plan of Care Documentation [facility] [address] [address] [address] [place] [address] documented as of this encounter Results * (ABNORMAL) Lipid panel (10/24/2020 2:35 PM MODEL AND MOLD MAKER) [facility] Signature Cholesterol 213(H) 30 - 199 mg/dL [facility] Comment: Interpretive Data Ages < or [...] 2018. LDL, calculated 141(H) <=129 mg/dL [facility] Comment: Interpretive Data Ages < or [...] GO Blood specimen (specimen) 10/24/2020 2:35 PM MODEL AND MOLD MAKER 10/24/2020 3:44 PM MODEL AND MOLD MAKER us Paulina Jones MD LAB BLOOD ORDERABLE S Final Result [facility] [address] [facility] [place] [address] * (ABNORMAL) Vedolizumab QN with Antibodies, S (10/24/2020 2:35 PM MODEL AND MOLD MAKER) Pathologist [facility] Vedolizumab Qn 4.1(L) mcg/mL [facility] Comment: REFERENCE VALUE Lower limit of quantitation = 2.0 mcg/mL ADDITIONAL INFORMATION This test was developed and its performance characteristics determined by [facility] in a manner consistent with CLIA requirements. This test has not been cleared or approved by the U.S. Food and Drug Administration. Vedolizumab Ab <9.8 <9.8 ng/mL [facility] Vedolizumab interp See Footnote [facility] Comment: RESULT: Absence of detectable pzuqjcih-xi-hqkdetgwyzk. ADDITIONAL INFORMATION This test was developed and its performance characteristics determined by [facility] in a manner consistent with CLIA requirements. This test has not been cleared or approved by the U.S. Food and Drug Administration. Test Performed by: [facility] [address] [place] [address] Bandage Wrapping Machine Operator: Barrington Aquino M.D. Ph.D.; CLIA# [id number] Blood specimen (specimen) 10/24/2020 2:35 PM MODEL AND MOLD MAKER 10/24/2020 3:44 PM MODEL AND MOLD MAKER Paulina Jones MD LAB BLOOD ORDERABLE S Final Result [facility] [address] [facility]. [place] [address] documented in this encounter Visit Diagnoses Diagnosis Crohn's disease of small and large intestines with complication (HCC)- Primary documented in this encounter Administered Medications Inactive Administered Medications - up to 3 most recent administrations Medication Order MAR Action Action Date Dose Rate Site sodium chloride 0.9% flush 10 mL 10 mL, intravenous, As needed, line care, Starting on Tue10/24/20 at 1211, Flush pre and post IV catheter use.Indications:Crohn's disease of small and large intestines with complication (HCC) Given 10/24/2020 12:30 PM MODEL AND MOLD MAKER 10 mL vedolizumab (ENTYVIO) 300 mg in sodium chloride 0.9% 250 mL IVPB 300 mg, intravenous, at 510 mL/hr, Administer over 30 Minutes, Once, On Tue10/24/20 at 1315, For 1 doseIndications:Crohn's disease of small and large intestines with complication (HCC) New Bag 10/24/2020 12:38 PM MODEL AND MOLD MAKER 300 mg 510 mL/hr documented in this encounter Orders Medications Ordered That Steven ht Not Have Been Administered Count Last Ordered Date First Ordered Date acetaminophen (TYLENOL) tablet 500 mg 1 diphenhydrAMINE (BENADRYL) tab/cap 25 mg 1 10/24/2020 Nursing Count Last Ordered Date First Orde red Date ONCBCN PROVIDER COMMUNICATION 1 1 0 VITAL SIGNS PRE-INFUSION 1 10/24/2020 Appointment Requests Count Last Ordered Date Fi rst Ordered Date INFUSION APPT REQUEST 60 MIN 2 12/05/2020 10/24/2020 documented in this encounter Care Teams Manager Switch Relationship Specialty Start Date End Date Kirstie Jarrell MD PCP - General 08/29/17 08/06/21 documented as of this encounter
--- OUTSIDE RECORDS SUMMARY | 2024-11-11 19:13 | XMS_ITS | Encounter Summary ---
Author Organization [facility] Address [address] [place] [address] Phone Care Team Providers Care Hand I Cutter Name Role Phone Kirstie Jarrell MD Primary Care Provider + Encounter Details Date Type Department Care Team (Late st Contact Info) Description 02/12/2021 Telephone [address] [place] [address] Malissa Mooney BS Social History Tobacco Use Types Packs/Day Years Used Date Smoking Tobacco: Former Cigarettes Q uit: 2005 Smokeless Tobacco: Never Alcohol Use Standard Drinks/Week Comments Yes 0 (1 standard drink = 0.6 oz pur e alcohol) occasional Sex and Gender Information Value Date Recorded Sex Assigned at Not on file 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 Thank you! Scheduling Team ----- Message ----- From: Petra Bowman, PhD Sent: 02/12/2021 12:08 PM CDT To: Sharan Patton Please schedule the patient for 1 on 03/05. Thank you. Petra documented in this encounter Plan of Treatment Upcoming Encounters Date Type Department Care Team (Late st Contact Info) Description 11/09/2024 Plan of Care Documentation [address] [address] [address] [place] [address] documented as of this encounter Visit Diagnoses Not on filedocumented in this encounter Care Teams Hand I Cutter Relationship Specialty Start Date End Date Kirstie Jarrell MD PCP - General 08/29/17 08/06/21 documented as of this encounter
--- OUTSIDE RECORDS SUMMARY | 2024-11-11 19:13 | XMS_ITS | Encounter Summary ---
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 Gender Identity Not on file Sexual Orientation Not on file documented as of this encounter Plan of Treatment Upcoming Encounters Date Type Department Care Team (Late st Contact Info) Description 11/09/2024 Plan of Care Documentation [address] [address] [address] [place] [address] documented as of this encounter Procedures Procedure Name Priority Date/Time Associated Diagnosis Comments DIFFERENTIAL AUTO Routine 03/27/2021 9:3 0 AM CDT Crohn's disease of small and large intestines with complication (CMS/HCC) CBC WITH AUTO DIFFERENTIAL Routine 03/27/2021 9:30 AM CDT Crohn's disease of small and large intestines with complication (CMS/HCC) HEPATIC FUNCTION PANEL Routine 03/27/2021 9:30 AM CDT Crohn's disease of small and large intestines with complication (CMS/HCC) LIPID PANEL Routine 03/27/2021 9:30 AM CDT Crohn's disease of small and large intestines with complication (CMS/HCC) documented in this encounter Results * Differential, auto (03/27/2021 9:30 AM CDT) Neutrophil abs 3.0 1.7 - 6.5 K/cumm [facility] Imm gran abs 0.0 0.0 - 0.1 K/cumm [facility] Lymphocyte abs 1.8 0.8 - 3.3 K/cumm [facility] Monocyte abs 0.4 0.2 - 0.8 K/cumm [facility] Eosinophil abs 0.1 0.0 - 0.5 K/cumm [facility] Basophil abs 0.0 0.0 - 0.1 K/cumm [facility] Neutrophil pct 56.4 % [facility] Comment: Interpretive Data Percent [...] was last revised on 2018. Lymphocyte pct 34.2 % [facility] Comment: Interpretive Data Percent cell count reference ranges are not reported, since discordance with absolute values may lead to misinterpretation of CBC data. Current Interpretive Data was last revised on 2018. Monocyte pct 6.9 % [facility] Comment: Interpretive Data Percent cell count reference ranges are not reported, since discordance with absolute values may lead to misinterpretation of CBC data. Current Interpretive Data was last revised on 2018. Eosinophil pct 1.7 % ALDO GO Comment: Interpretive Data Percent [...] last revised on 2018. Blood specimen (specimen) 03/27/2021 9:30 AM CDT 03/27/2021 11:29 AM CDT us Paulina Jones MD LAB BLOOD ORDERABLE S Final Result ALDO GO [id number] [facility]. Department of Laboratories [place], [place] [id number] * (ABNORMAL) Lipid panel (03/27/2021 9:30 AM CDT) Cholesterol 199 30 - 199 mg/dL ALDO GO Comment: [...] Data was last revised on 2018. Triglycerides 118 <=149 mg/dL ALDO GO Comment: Interpretive Data [...] was last revised on 2018. Non-HDL Cholesterol 164 mg/dL ALDO GO Comment: Interpretive Data Ages [...] revised on 2018. Chol/HDL ratio 6 ALDO MONTELONGOCH Blood specimen (specimen) 03/27/2021 9:30 AM CDT 03/27/2021 11:29 AM CDT us Paulina Jones MD LAB BLOOD ORDERABLE S Final Result ALDO MILLERCH [address] [facility]. Department [place] [address] * Hepatic function panel (03/27/2021 9:30 AM CDT) Bilirubin, total 0.8 0.1 - 1.2 mg/dL [facility] Bilirubin, direct <0.2 0.1 - 0.3 mg/dL [facility] Protein, pl 7.0 6.5 - 8.5 g/dL [facility] Albumin 4.1 3.5 - 5.0 g/dL [facility] Alk phos 53 40 - 130 Units/L [facility] ALT 33 7 - 55 Units/L [facility] AST 45 10 - 50 Units/L [facility] Blood specimen (specimen) 03/27/2021 9:30 AM CDT 03/27/2021 11:29 AM CDT Paulina Jones MD LAB BLOOD ORDERABLE S Final Result Performing Organization Address City/[facility]/ZIP Co de Phone Number ALDO GO [address] [facility] Department [employer] [place] [address] * (ABNORMAL) CBC with auto differential (03/27/2021 9:30 AM CDT) [facility] WBC 5.4 3.8 - 9.9 K/cumm [facility] Hgb 12.5(L) 13.0 - 17.5 g/dL [facility] Hct 38.6(L) 38.9 - 50.3 % [facility] Plt 285 150 - 400 K/cumm [facility] MPV 10.2 9.1 - 12.3 fL [facility] RBC 4.36 4.30 - 5.80 M/cumm [facility] MCV 88.5 81.3 - 96.4 fL [facility] MCH 28.7 27.1 - 33.3 pg [facility] MCHC 32.4 32.3 - 35.7 g/dL [facility] RDW CV 13.6 11.1 - 14.9 % [facility] RDW SD 43.8 35.7 - 48.1 fL [facility] NRBC abs 0.00 0.00 - 0.01 K/cumm [facility] Blood specimen (specimen) 03/27/2021 9:30 AM CDT 03/27/2021 11:29 AM CDT Paulina Jones MD LAB BLOOD ORDERABLE S Final Result ALDO GO [address] Department [place] [address] documented in this encounter Visit Diagnoses Diagnosis Crohn's disease of small and large intestines with complication (HCC) documented in this encounter Care Teams Carousel Attendant Relationship Specialty Start Date End Date Kirstie Jarrell MD PCP - General 08/29/17 08/06/21 documented as of this encounter
--- OUTSIDE RECORDS SUMMARY | 2024-11-11 19:13 | XMS_ITS | Encounter Summary ---
Author Organization [facility] Address [address] [place] [address] Phone Care Team Providers Care Sodium Methylate Operator Name Role Phone Kirstie Jarrell MD Primary Care Provider + Encounter Details Date Type Department Care Team (Late st Contact Info) Description 08/07/2021 Orders Only [facility] Gastroenterology [address] 8th [place] [address] [place] [phone] Eryn Dalton LPN Crohn's disease of both small and large intestine with intestinal obstruction (HCC) Social History Tobacco Use Types Packs/Day [...] on file 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:34 AM ENGINEERING CONSULTANT Gender Identity Not on file Sexual Orientation Not on file documented as of this encounter Ordered Prescriptions Prescription Sig Dispense Quantity Refills Last Filled Start Date End Date hydrocortisone (CORTENEMA) 100 mg/60 mL enemaIndications:U lcerative Colitis Insert 1 enema (100 mg total) into the rectum nightly as needed for 30 days. 30 enema 08/07/2021 2 budesonide 2 mg/actuation foamIndications:Cr ohn's disease of both small and large intestine with intestinal obstruction (HCC) Insert 1 application into the rectum daily for 30 days. 33.4 g 08/07/2021 2 documented in this encounter Progress Notes * Eryn Dalton LPN - 08/07/2021 9:41 AM CDT Pt scoped at [facility] this morning. Received call from Dr. Jones re: recommendations for pt post procedure. Uceris foam and hydrocortisone enemas X 30 d. Both scripts sent in to pt's local pharmacy. documented in this encounter Plan of Treatment Upcoming Encounters Date Type Department Care Team (Late st Contact Info) Description 11/09/2024 Plan of Care Documentation [address] [place] [address] documented as of this encounter Procedures Procedure Name Priority Date/Time Associated Diagnosis Comments DIFFERENTIAL AUTO Routine 09/25/2021 12: 25 PM ENGINEERING CONSULTANT CBC WITH AUTO DIFFERENTIAL Routine 09/25/2021 12:25 PM ENGINEERING CONSULTANT HEPATIC FUNCTION PANEL Routine 09/25/2021 12:25 PM ENGINEERING CONSULTANT LIPID PANEL Routine 09/25/2021 12:25 PM ENGINEERING CONSULTANT DIFFERENTIAL AUTO Routine 08/25/2021 3:3 0 PM CDT CBC WITH AUTO DIFFERENTIAL Routine 08/25/2021 3:30 PM CDT HEPATIC FUNCTION PANEL Routine 08/25/2021 3:30 PM CDT LIPID PANEL Routine 08/25/2021 3:30 PM CDT documented in this encounter Results * Differential, auto (09/25/2021 12:25 PM ENGINEERING CONSULTANT) Neutrophil abs 5.3 1.7 - 6.5 K/cumm [facility] Imm gran abs 0.0 0.0 - 0.1 K/cumm [facility] Lymphocyte abs 1.8 0.8 - 3.3 K/cumm [facility] Monocyte abs 0.5 0.2 - 0.8 K/cumm [facility] Eosinophil abs 0.1 0.0 - 0.5 K/cumm [facility] Basophil abs 0.0 0.0 - 0.1 K/cumm [facility] Neutrophil pct 68.7 % [facility] Comment: Interpretive Data Percent [...] was last revised on 2018. Lymphocyte pct 23.1 % [facility] Comment: Interpretive Data Percent cell count reference ranges are not reported, since discordance with absolute values may lead to misinterpretation of CBC data. Current Interpretive Data was last revised on 2018. Monocyte pct 6.7 % [facility] Comment: Interpretive Data Percent cell count reference ranges are not reported, since discordance with absolute values may lead to misinterpretation of CBC data. Current Interpretive Data was last revised on 2018. Eosinophil pct 0.8 % [facility] Comment: Interpretive Data Percent cell count reference ranges are not reported, since discordance with absolute values may lead to misinterpretation of CBC data. Current Interpretive Data was last revised on 2018. Basophil pct 0.4 % [facility] Comment: Interpretive Data Percent cell count reference ranges are not reported, since discordance with absolute values may lead to misinterpretation of CBC data. Current Interpretive Data was last revised on 2018. Blood 09/25/2021 12:2 5 PM ENGINEERING CONSULTANT 09/25/2021 7:38 PM ENGINEERING CONSULTANT us Paulina Jones MD LAB BLOOD ORDERABLE S Final Result ALDO GO [address] [facility]. Department [place] [address] * (ABNORMAL) Lipid panel (09/25/2021 12:25 PM ENGINEERING CONSULTANT) Cholesterol 225(H) 30 - 199 mg/dL ALDO GO Comment: [...] Data was last revised on 2018. Triglycerides 147 <=149 mg/dL ALDO GO Comment: Interpretive Data [...] Data was last revised on 2018. HDL 40 >=40 mg/dL ALDO GO Comment: Interpretive Data [...] was last revised on 2018. LDL, calculated 156(H) <=129 mg/dL ALDO GO Comment: Interpretive Data [...] last revised on 2018. Chol/HDL ratio 6 [facility] Blood 09/25/2021 12:2 5 PM ENGINEERING CONSULTANT 09/25/2021 7:39 PM ENGINEERING CONSULTANT us Paulina Jones MD LAB BLOOD ORDERABLE S Final Result Performing Organization Address City/[facility]/ZIP Co de Phone Number [facility] [address] [facility] Department [employer] [place], [place] [id number] * Hepatic function panel (09/25/2021 12:25 PM ENGINEERING CONSULTANT) Bilirubin, total 0.5 0.1 - 1.2 mg/dL [facility] Bilirubin, direct <0.2 0.1 - 0.3 mg/dL [facility] Protein, pl 7.5 6.5 - 8.5 g/dL [facility] Albumin 4.7 3.5 - 5.0 g/dL [facility] Alk phos 60 40 - 130 Units/L [facility] ALT 23 7 - 55 Units/L [facility] AST 26 10 - 50 Units/L [facility] Blood 09/25/2021 12:2 5 PM ENGINEERING CONSULTANT 09/25/2021 7:39 PM ENGINEERING CONSULTANT us Paulina Jones MD LAB BLOOD ORDERABLE S Final Result [facility] [address] [facility] Department [place] [address] * (ABNORMAL) CBC with auto differential (09/25/2021 12:25 PM ENGINEERING CONSULTANT) WBC 7.7 3.8 - 9.9 K/cumm [facility] Hgb 12.4(L) 13.0 - 17.5 g/dL [facility] Hct 38.3(L) 38.9 - 50.3 % [facility] Plt 282 150 - 400 K/cumm [facility] MPV 10.6 9.1 - 12.3 fL [facility] RBC 4.41 4.30 - 5.80 M/cumm [facility] MCV 86.8 81.3 - 96.4 fL [facility] MCH 28.1 27.1 - 33.3 pg [facility] MCHC 32.4 32.3 - 35.7 g/dL [facility] RDW CV 14.1 11.1 - 14.9 % [facility] RDW SD 45.0 35.7 - 48.1 fL [facility] NRBC abs 0.00 0.00 - 0.01 K/cumm [facility] Blood 09/25/2021 12:2 5 PM ENGINEERING CONSULTANT 09/25/2021 7:38 PM ENGINEERING CONSULTANT us Paulina Jones MD LAB BLOOD ORDERABLE S Final Result [place] [address] [facility]. [place] [address] * Differential, auto (08/25/2021 3:30 PM CDT) Pathologist [facility] Neutrophil abs 3.9 1.7 - 6.5 K/cumm [facility] Imm gran abs 0.0 0.0 - 0.1 K/cumm [facility] Lymphocyte abs 1.3 0.8 - 3.3 K/cumm [facility] Monocyte abs 0.7 0.2 - 0.8 K/cumm [facility] Eosinophil abs 0.1 0.0 - 0.5 K/cumm [facility] Basophil abs 0.0 0.0 - 0.1 K/cumm [facility] Neutrophil pct 64.7 % [facility] Comment: Interpretive Data Percent cell count reference ranges are not reported, since discordance with absolute values may lead to misinterpretation of CBC data. Current Interpretive Data was last revised on 2018. Imm gran pct 0.5 % [facility] Comment: Interpretive Data Percent cell count reference ranges are not reported, since discordance with absolute values may lead to misinterpretation of CBC data. Current Interpretive Data was last revised on 2018. Lymphocyte pct 20.8 % ALDO MONTELONGO Comment: Interpretive Data Percent cell count reference ranges are not reported, since discordance with absolute values may lead to misinterpretation of CBC data. Current Interpretive Data was last revised on 2018. Monocyte pct 11.8 % [facility] Comment: Interpretive Data Percent cell count reference ranges are not reported, since discordance with absolute values may lead to misinterpretation of CBC data. Current Interpretive Data was last revised on 2018. Eosinophil pct 1.7 % [facility] Comment: Interpretive Data Percent cell count reference ranges are not reported, since discordance with absolute values may lead to misinterpretation of CBC data. Current Interpretive Data was last revised on 2018. Basophil pct 0.5 % [facility] Comment: Interpretive Data Percent cell count reference ranges are not reported, since discordance with absolute values may lead to misinterpretation of CBC data. Current Interpretive Data was last revised on 2018. Blood 08/25/2021 3:30 PM CDT 08/25/2021 9:03 PM CDT us Paulina Jones MD LAB BLOOD ORDERABLE S Final Result ALDO MILLERWCH [address] [facility]. Department [place] [address] * (ABNORMAL) Lipid panel (08/25/2021 3:30 PM CDT) Cholesterol 199 30 - 199 mg/dL [...] Data was last revised on 2018. Triglycerides 204(H) <=149 mg/dL ALDO GO Comment: Interpretive Data [...] Data was last revised on 2018. HDL 37(L) >=40 mg/dL ALDO GO Comment: Interpretive Data [...] was last revised on 2018. LDL, calculated 121 <=129 mg/dL ALDO GO Comment: Interpretive Data [...] was last revised on 2018. Non-HDL Cholesterol 162 mg/dL ALDO GO Comment: Interpretive Data Ages [...] last revised on 2018. Chol/HDL ratio 5 [facility] Blood 08/25/2021 3:30 PM CDT 08/25/2021 9:03 PM CDT Paulina Jones MD LAB BLOOD ORDERABLE S Final Result Performing Organization Address [facility] Co de Phone Number ALDO MONTELONGO [address] [facility]. [facility] [place] [address] * Hepatic function panel (08/25/2021 3:30 PM CDT) Bilirubin, total 0.9 0.1 - 1.2 mg/dL [facility] Bilirubin, direct <0.2 0.1 - 0.3 mg/dL [facility] Comment:Hemolyzed; result un reliable. Protein, pl 7.4 6.5 - 8.5 g/dL [facility] Albumin 4.5 3.5 - 5.0 g/dL [facility] Alk phos 70 40 - 130 Units/L [facility] ALT 22 7 - 55 Units/L [facility] AST 28 10 - 50 Units/L [facility] Comment:Hemolyzed; result ma y be falsely elevated. Blood 08/25/2021 3:30 PM CDT 08/25/2021 9:03 PM CDT Paulina Jones MD LAB BLOOD ORDERABLE S Final Result Performing Organization Address [facility] Co de Phone Number ALDO MONTELONGOCH [address] [facility]. [facility] [employer] [place] [address] * (ABNORMAL) CBC with auto differential (08/25/2021 3:30 PM CDT) WBC 6.0 3.8 - 9.9 K/cumm [facility] Hgb 12.3(L) 13.0 - 17.5 g/dL [facility] Hct 37.9(L) 38.9 - 50.3 % [facility] Plt 281 150 - 400 K/cumm ALDO MILLERWRUBEN MPV 9.9 9.1 - 12.3 fL ALDO MILLERWRUBEN RBC 4.36 4.30 - 5.80 M/cumm ALDO MILLERWRUBEN MCV 86.9 81.3 - 96.4 fL ALDO MILLERWRUBEN MCH 28.2 27.1 - 33.3 pg ALDO MILLERWRUBEN MCHC 32.5 32.3 - 35.7 g/dL ALDO MILLERW RDW CV 14.6 11.1 - 14.9 % ALDO MILLERWCH RDW SD 46.3 35.7 - 48.1 fL ALDO MILLERW NRBC abs 0.00 0.00 - 0.01 K/cumm ALDO MILLERW Blood 08/25/2021 3:30 PM CDT 08/25/2021 9:03 PM CDT Paulina Jones MD LAB BLOOD ORDERABLE S Final Result ALDO GO [address] [facility]. Department [place] [address] documented in this encounter Visit Diagnoses Diagnosis Crohn's disease of both small and large intestine with intestinal obstruction (HCC) documented in this encounter Care Teams Sodium Methylate Operator Relationship Specialty Start Date End Date Kirstie Jarrell MD [address] [address] PCP - General 08/07/21 12/10/21 documented as of this encounter
--- OUTSIDE RECORDS SUMMARY | 2024-11-11 19:13 | XMS_ITS | Encounter Summary ---
Author Organization [facility] Address [address] [place] [address] Phone Care Team Providers Care Hand Stonecutter Name Role Phone Kirstie Jarrell MD Primary Care Provider + Reason for Visit * Reason Onset Date Comments Rx Refill (Xanax) 05/22/2021 Encounter Details Date Type Department Care Team (Late st Contact Info) Description 05/22/2021 Documentation [facility] Gastroenterology [address] [facility] [address] 8th [place] [address] [place] [address] Radha Goodwin RMA Rx Refill (Xanax) Social History Tobacco Use Types Packs/Day Years Used Date Smoking Tobacco: Former Cigarettes Q uit: 2005 Smokeless Tobacco: Never Alcohol Use Standard Drinks/Week Comments Yes 0 (1 standard drink = 0.6 oz pur e alcohol) occasional Sex and Gender Information Value Date Recorded Sex Assigned at Not on file 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:34 AM MOTION PICTURE COMMENTATOR Gender Identity Not on file Sexual Orientation Not on file documented as of this encounter Progress Notes * Radha Goodwin RMA - 05/22/2021 11:59 PM CDT Images from the original note were not included. RE: Refill Rx Received: 3 days ago Paulina Jones MD Mathis, Akeia Patrice, RMA no ?? Previous Messages ?? ----- Message ----- From: Radha Goodwin RMA Sent: 05/22/2021 ??11:39 AM CDT To: Paulina Jones MD Subject: Refill Rx ? Rcv'd refill request for Xanax for pt. ??Do you approve? ??Pt sees Dr. Ward for psych. Radha Gee documented in this encounter Plan of Treatment Upcoming Encounters Date Type Department Care Team (Late st Contact Info) Description 11/09/2024 Plan of Care Documentation [address] [address] [address] [place] [address] documented as of this encounter Visit Diagnoses Not on filedocumented in this encounter Care Teams Hand Stonecutter Relationship Specialty Start Date End Date Kirstie Jarrell MD PCP - General 08/29/17 08/06/21 documented as of this encounter
--- OUTSIDE RECORDS SUMMARY | 2024-11-11 19:13 | XMS_ITS | Encounter Summary ---
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 TAPPER Gender Identity Not on file Sexual Orientation Not on file documented as of this encounter Plan of Treatment Upcoming Encounters Date Type Department Care Team (Late st Contact Info) Description 11/09/2024 Plan of Care Documentation [address] [address] [address] [place] [address] documented as of this encounter Procedures Procedure Name Priority Date/Time Associated Diagnosis Comments DIFFERENTIAL AUTO Routine 06/25/2021 4:1 7 PM CDT Crohn's disease of small and large intestines with complication (CMS/HCC) (HCC) CBC WITH AUTO DIFFERENTIAL Routine 06/25/2021 4:17 PM CDT Crohn's disease of small and large intestines with complication (CMS/HCC) (HCC) documented in this encounter Results * Differential, auto (06/25/2021 4:17 PM CDT) Neutrophil abs 4.5 1.7 - 6.5 K/cumm [facility] Imm gran abs 0.0 0.0 - 0.1 K/cumm [facility] Lymphocyte abs 1.7 0.8 - 3.3 K/cumm [facility] Monocyte abs 0.6 0.2 - 0.8 K/cumm [facility] Eosinophil abs 0.1 0.0 - 0.5 K/cumm [facility] Basophil abs 0.0 0.0 - 0.1 K/cumm [facility] Neutrophil pct 64.7 % [facility] Comment: Interpretive Data Percent [...] was last revised on 2018. Lymphocyte pct 25.2 % [facility] Comment: Interpretive Data Percent cell count reference ranges are not reported, since discordance with absolute values may lead to misinterpretation of CBC data. Current Interpretive Data was last revised on 2018. Monocyte pct 8.3 % [facility] Comment: Interpretive Data Percent cell count reference ranges are not reported, since discordance with absolute values may lead to misinterpretation of CBC data. Current Interpretive Data was last revised on 2018. Eosinophil pct 1.2 % [facility] Comment: Interpretive Data Percent [...] Data was last revised on 2018. Blood 06/25/2021 4:17 PM CDT 06/25/2021 5:29 PM CDT Paulina Jones MD LAB BLOOD ORDERABLE S Final Result Performing Organization Address City/[facility]/ZIP Co de Phone Number ALDO GO [address] [employer] [place], [place] [id number] * (ABNORMAL) CBC with auto differential (06/25/2021 4:17 PM CDT) WBC 6.9 3.8 - 9.9 K/cumm [facility] Hgb 12.5(L) 13.0 - 17.5 g/dL [facility] Hct 39.5 38.9 - 50.3 % [facility] Plt 285 150 - 400 K/cumm [facility] MPV 10.7 9.1 - 12.3 fL [facility] RBC 4.43 4.30 - 5.80 M/cumm [facility] MCV 89.2 81.3 - 96.4 fL [facility] MCH 28.2 27.1 - 33.3 pg [facility] MCHC 31.6(L) 32.3 - 35.7 g/dL [facility] RDW CV 14.2 11.1 - 14.9 % [facility] RDW SD 46.0 35.7 - 48.1 fL [facility] NRBC abs 0.00 0.00 - 0.01 K/cumm [facility] Blood 06/25/2021 4:17 PM CDT 06/25/2021 5:29 PM CDT Paulina Jones MD LAB BLOOD ORDERABLE S Final Result Performing Organization Address City/[facility]/ZIP Co de Phone Number ALDO GO [address] [place] [address] documented in this encounter Visit Diagnoses Diagnosis Crohn's disease of small and large intestines with complication (HCC) documented in this encounter Care Teams Trade Specialist Relationship Specialty Start Date End Date Kirstie Jarrell MD PCP - General 08/29/17 08/06/21 documented as of this encounter
--- OUTSIDE RECORDS SUMMARY | 2024-11-11 19:13 | XMS_ITS | Encounter Summary ---
Author Organization [facility] Address [address] [place] [address] Phone Care Team Providers Care Flame Cutting Supervisor Name Role Phone Kirstie Jarrell MD Primary Care Provider + Reason for Visit * Episode Based Medications (Routine) - Closed Specialty Diagnoses / Procedures Referred By eMd bazan Referred To Contact Diagnoses Crohn's disease of small and large intestines with complication (HCC) Procedures [place] INJECTION, VEDOLIZUMAB Paulina Jones MD [address] [place] [address] Phone: tel: fax: [facility] Allergy and Immunology [address] [place] [address] [address] [place] [address] Phone: tel: fax: Referral ID Status Reason Start Date Expiration Date Visits Re quested Visits Authorized [id number] Closed 11/03/2020 11/03/2022 99 99 Encounter Details Date Type Department Care Team (Late st Contact Info) Description 02/27/2021 12:30 PM CDT Infusion [facility] Infusion Therapy [address] [place] [address] [address] [place] [address] Crohn's disease of small and [...] on file 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:[address] CLERK Gender Identity Not on file Sexual Orientation Not on file documented as of this encounter Last Filed Vital Signs Vital Sign Reading Time Taken Comments Blood Pressure 118/73 02/27/2021 1:30 PM CDT Pulse 50 02/27/2021 1:30 PM CDT Temperature 36.8 ??C (98.3 ??F) 02/27/2021 12:35 PM C DT Respiratory Rate - - Oxygen Saturation - - Inhaled Oxygen Concentration - - Weight - - Height - - Body Mass Index - - documented in this encounter Progress Notes * Teetee Prince RN - 02/27/2021 12:30 PM CDT Pt here for Entyvio infusion, denies fevers or infections. PIV placed and infusion initiated. Pt tolerated infusion well, ambulatory upon discharge. documented in this encounter Plan of Treatment Upcoming Encounters Date Type Department Care Team (Late st Contact Info) Description 11/09/2024 Plan of Care Documentation [address] [address] [address] [place] [id number] documented as of this encounter Results * (ABNORMAL) Lipid panel (02/27/2021 12:50 PM CDT) [facility] Cholesterol 181 30 - 199 mg/dL [facility] Comment: Interpretive Data Ages < or [...] 2018. Chol/HDL ratio 5 [facility] Blood specimen (specimen) 02/27/2021 12:50 PM CDT 02/27/2021 2:17 PM CDT us Paulina Jones MD LAB BLOOD ORDERABLE S Final Result [facility] [address] [facility]. [place] [address] documented in this encounter Visit Diagnoses Diagnosis Crohn's disease of small and large intestines with complication (HCC)- Primary documented in this encounter Administered Medications Inactive Administered Medications - up to 3 most recent administrations Medication Order MAR Action Action Date Dose Rate Site sodium chloride 0.9% flush 10 mL 10 mL, intravenous, As needed, line care, Starting on Tue02/27/21 at 1236, Flush pre and post IV catheter use.Indications:Crohn's disease of small and large intestines with complication (HCC) Given 02/27/2021 12:50 PM CDT 10 mL vedolizumab (ENTYVIO) 300 mg in sodium chloride 0.9% 250 mL IVPB 300 mg, intravenous, at 510 mL/hr, Administer over 30 Minutes, Once, On Tue02/27/21 at 1345, For 1 doseIndications:Crohn's disease of small and large intestines with complication (HCC) New Bag 02/27/2021 12:55 PM CDT 300 mg 510 mL/hr documented in this encounter Orders Nursing Count Last Ordered Date First Orde red Date ONCBCN PROVIDER COMMUNICATION 1 1 VITAL SIGNS PRE-INFUSION 1 02/27/2021 Appointment Requests Count Last Ordered Date Fi rst Ordered Date INFUSION APPT REQUEST 60 MIN 1 02/27/2021 documented in this encounter Care Teams Flame Cutting Supervisor Relationship Specialty Start Date End Date Kirstie Jarrell MD PCP - General 08/29/17 08/06/21 documented as of this encounter
--- OUTSIDE RECORDS SUMMARY | 2024-11-11 19:13 | XMS_ITS | Encounter Summary ---
Author Organization [facility] Address [address] [place] [address] Phone Care Team Providers Care Building Construction Ironworker Name Role Phone Kirstie Jarrell MD Primary Care Provider + Reason for Visit * Reason Onset Date Comments F/u with Dr. Bowman re: Vero 06/08/2021 Encounter Details Date Type Department Care Team (Late st Contact Info) Description 06/08/2021 Telephone [facility] Gastroenterology [facility] 8th [place] [address] [place] [address] Eryn Dalton LPN F/u with Dr. Bowman re: Vero Social History Tobacco Use Types Packs/Day Years Used Date Smoking Tobacco: Former Cigarettes Q uit: 2005 Smokeless Tobacco: Never Alcohol Use Standard Drinks/Week Comments Yes 0 (1 standard drink = 0.6 oz pur e alcohol) occasional Sex and Gender Information Value Date Recorded Sex Assigned at Not on file 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:34 AM SUBSTATION OPERATOR CONVERSION Gender Identity Not on file Sexual Orientation Not on file documented as of this encounter Miscellaneous Notes * Telephone Encounter - Eryn Dalton LPN - 06/08/2021 8:42 AM CDT Images from the original note were not included. Paulina Jones MD Jahic, [place], LPN If Sofia u can't see him, he will need to find a psychiatrist Portal msg sent to pt advising him of above - look into options of where he can establish care w/ psychiatry. Pt advised to f/u with his insurance company. * Telephone Encounter - Eryn Dalton LPN - 06/08/2021 7:11 AM CDT Images from the original note were not included. Msg below from Dr. Bowman forwarded to Dr. Jones. Petra Bowman, PhD Eryn Dalton LPN Psychiatry is basically only seeing [facility] Direct patients so I am not sure how a referral would work. I talked with him again about not becoming reliant on it and I think he understand the point of using nonpharmacological approaches. Petra ?? Previous Messages ----- Message ----- From: Eryn Dalton LPN Sent: 05/26/2021 ?? 7:21 AM CDT To: Petra Bowman, PhD Subject: Pt's Xanax ? Good morning Dr. Bowman, I am currently working with Dr. Jones. Pt contacted our office requesting another refill of hisXanax. I did see that patient saw you back in February when this was initially prescribed, at that time, you discussed with him about this being a short term thing and needing to work on coping skills. Dr. Jones is OK with giving patient a half (15 tab) supply at this time, however, suggests that patient see a psychiatrist to manage this prescription if he is going to need further refills in thefuture. We are more than happy to refer patient to psychiatry if needed. Just wanted to follow up with you for your thoughts. Thank you for your time and help in advance, Eryn Dalton LPN GI Float Nurse documented in this encounter Plan of Treatment Upcoming Encounters Date Type Department Care Team (Late st Contact Info) Description 11/09/2024 Plan of Care Documentation [address] [place] [address] documented as of this encounter Visit Diagnoses Not on filedocumented in this encounter Care Teams Building Construction Ironworker Relationship Specialty Start Date End Date Kirstie Jarrell MD PCP - General 08/29/17 08/06/21 documented as of this encounter
--- OUTSIDE RECORDS SUMMARY | 2024-11-11 19:13 | XMS_ITS | Encounter Summary ---
Author Organization [facility] Address [address] [place] [address] Phone Care Team Providers Care Television Cabinet Finisher Name Role Phone Kirstie Jarrell MD Primary Care Provider + Reason for Visit * Episode Based Medications (Routine) - Closed Specialty Diagnoses / Procedures Referred By Med bazan Referred To Contact Diagnoses Crohn's disease of small and large intestines with complication (HCC) Procedures [place] INJECTION, VEDOLIZUMAB Paulina Jones MD [address] [place] [address] Phone: tel: fax: [facility] Allergy and Immunology [address] [place] [address] [address] [place] [address] Phone: tel: fax: Referral ID Status Reason Start Date Expiration Date Visits Re quested Visits Authorized [id number] Closed 11/03/2020 11/03/2022 99 99 Encounter Details Date Type Department Care Team (Late st Contact Info) Description 03/27/2021 9:00 AM CDT Infusion [facility] Infusion Therapy [address] [place] [address] [address] [place] [address] Crohn's disease of small and [...] on file 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 PIV placed and labs obtained before infusion initiated. Pt tolerated infusion well, ambulatory upon discharge. documented in this encounter Miscellaneous Notes * Addendum Note - Maria Dolores Jolley - 03/27/2021 9:00 AM CDTAddended by: MARIA DOLORES JOLLEY on: 03/27/2021 10:50 AM Modules accepted: Orders documented in this encounter Plan of Treatment Upcoming Encounters Date Type Department Care Team (Late st Contact Info) Description 11/09/2024 Plan of Care Documentation [facility] [place] [address] [address] [address] [place] [address] documented as of this encounter Results * (ABNORMAL) Lipid panel (03/27/2021 9:30 AM CDT) Cholesterol 199 30 - 199 mg/dL [facility] Comment: Interpretive Data Ages < or = [...] ratio 6 [facility] Blood specimen (specimen) 03/27/2021 9:30 AM CDT 03/27/2021 11:29 AM CDT us Paulina Jones MD LAB BLOOD ORDERABLE S Final Result [facility] [address] [address] [facility]. [place] [address] documented in this encounter Visit Diagnoses Diagnosis Crohn's disease of small and large intestines with complication (HCC)- Primary documented in this encounter Administered Medications Inactive Administered Medications - up to 3 most recent administrations Medication Order MAR Action Action Date Dose Rate Site sodium chloride 0.9% flush 10 mL 10 mL, intravenous, As needed, line care, Starting on Tue03/27/21 at 0905, Flush pre and post IV catheter use.Indications:Crohn's disease of small and large intestines with complication (HCC) Given 03/27/2021 9:25 AM CDT 10 mL vedolizumab (ENTYVIO) 300 mg in sodium chloride 0.9% 250 mL IVPB 300 mg, intravenous, at 510 mL/hr, Administer over 30 Minutes, Once, On Tue03/27/21 at 1015, For 1 doseIndications:Crohn's disease of small and large intestines with complication (HCC) New Bag 03/27/2021 9:31 AM CDT 300 mg 510 mL/hr documented in this encounter Orders Nursing Count Last Ordered Date First Orde red Date ONCBCN PROVIDER COMMUNICATION 1 1 VITAL SIGNS PRE-INFUSION 1 03/27/2021 Appointment Requests Count Last Ordered Date Fi rst Ordered Date INFUSION APPT REQUEST 60 MIN 2 04/27/2021 03/27/2021 documented in this encounter Care Teams Television Cabinet Finisher Relationship Specialty Start Date End Date Kirstie Jarrell MD PCP - General 08/29/17 08/06/21 documented as of this encounter
--- OUTSIDE RECORDS SUMMARY | 2024-11-11 19:13 | XMS_ITS | Encounter Summary ---
Author Organization [facility] Address [address] [place] [address] Phone Care Team Providers Care Roll Over Press Operator Name Role Phone Kirstie Jarrell MD Primary Care Provider + Encounter Details Date Type Department Care Team (Late Contact Info) Description 10/29/2020 Orders Only [facility] Gastroenterology [address] 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
--- OUTSIDE RECORDS SUMMARY | 2024-11-11 19:13 | XMS_ITS | Encounter Summary ---
Author Organization [facility] Address [address] [place] [address] Phone Care Team Providers Care Weatherization Crew Leader Name Role Phone Kirstie Jarrell MD Primary Care Provider + Encounter Details Date Type Department Care Team (Late st Contact Info) Description 03/05/2021 Telephone [id number] [place] [address] Nataly Lai CMA Social History Tobacco Use Types Packs/Day Years Used Date Smoking Tobacco: Former Cigarettes Q uit: 2004 Smokeless Tobacco: Never Alcohol Use Standard Drinks/Week Comments Yes 0 (1 standard drink = 0.6 oz pur e alcohol) occasional Sex and Gender Information Value Date Recorded Sex Assigned at Not on file 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 Thank you! Scheduling Team ----- Message ----- From: Petra Bowman, PhD Sent: 03/05/2021 2:09 PM CDT To: Sharan Patton Please schedule the patient for 1 on 04/16. Thank you. Petra documented in this encounter Plan of Treatment Upcoming Encounters Date Type Department Care Team (Late st Contact Info) Description 11/09/2024 Plan of Care Documentation [address] [address] [address] [place] [address] documented as of this encounter Visit Diagnoses Not on filedocumented in this encounter Care Teams Weatherization Crew Leader Relationship Specialty Start Date End Date Kirstie Jarrell MD PCP - General 08/29/17 08/06/21 documented as of this encounter
--- OUTSIDE RECORDS SUMMARY | 2024-11-11 19:13 | XMS_ITS | Encounter Summary ---
Author Organization [facility] Address [address] [place] [address] Phone Care Team Providers Care Inspector Pawnshop Detail Name Role Phone Kirstie Jarrell MD Primary Care Provider + Encounter Details Date Type Department Care Team (Late st Contact Info) Description 02/02/2021 Orders Only [facility] Gastroenterology [address] [facility] 8th [place] [address] [place] [address] Rita Lama RN Social History Tobacco Use Types Packs/Day Years Used Date Smoking Tobacco: Former Cigarettes Q uit: 2005 Smokeless Tobacco: Never Alcohol Use Standard Drinks/Week Comments Yes 0 (1 standard drink = 0.6 oz pur e alcohol) occasional Sex and Gender Information Value Date Recorded Sex Assigned at Not on file 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
--- OUTSIDE RECORDS SUMMARY | 2024-11-11 19:13 | XMS_ITS | Encounter Summary ---
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 Gender Identity Not on file Sexual Orientation Not on file documented as of this encounter Plan of Treatment Upcoming Encounters Date Type Department Care Team (Late st Contact Info) Description 11/09/2024 Plan of Care Documentation [address] [address] [address] [place] [address] documented as of this encounter Procedures Procedure Name Priority Date/Time Associated Diagnosis Comments DIFFERENTIAL AUTO Routine 04/27/2021 11: 00 AM CDT Crohn's disease of small and large intestines with complication (CMS/HCC) CBC WITH AUTO DIFFERENTIAL Routine 04/27/2021 11:00 AM CDT Crohn's disease of small and large intestines with complication (CMS/HCC) HEPATIC FUNCTION PANEL Routine 04/27/2021 11:00 AM CDT Crohn's disease of small and large intestines with complication (CMS/HCC) LIPID PANEL Routine 04/27/2021 11:00 AM CDT Crohn's disease of small and large intestines with complication (CMS/HCC) documented in this encounter Results * Differential, auto (04/27/2021 11:00 AM CDT) Neutrophil abs 4.1 1.7 - 6.5 K/cumm [facility] Imm gran abs 0.0 0.0 - 0.1 K/cumm [facility] Lymphocyte abs 1.7 0.8 - 3.3 K/cumm [facility] Monocyte abs 0.5 0.2 - 0.8 K/cumm [facility] Eosinophil abs 0.1 0.0 - 0.5 K/cumm [facility] Basophil abs 0.0 0.0 - 0.1 K/cumm [facility] Neutrophil pct 63.4 % [facility] Comment: Interpretive Data Percent cell count reference ranges are not reported, since discordance with absolute values may lead to misinterpretation of CBC data. Current Interpretive Data was last revised on 2018. Imm gran pct 0.5 % [facility] Comment: Interpretive Data Percent cell count reference ranges are not reported, since discordance with absolute values may lead to misinterpretation of CBC data. Current Interpretive Data was last revised on 2018. Lymphocyte pct 26.4 % [facility] Comment: Interpretive Data Percent cell count reference ranges are not reported, since discordance with absolute values may lead to misinterpretation of CBC data. Current Interpretive Data was last revised on 2018. Monocyte pct 7.8 % [facility] Comment: Interpretive Data Percent cell count reference ranges are not reported, since discordance with absolute values may lead to misinterpretation of CBC data. Current Interpretive Data was last revised on 2018. Eosinophil pct 1.6 % [facility] Comment: Interpretive Data Percent [...] last revised on 2018. Blood specimen (specimen) 04/27/2021 11:00 AM CDT 04/27/2021 12:49 PM CDT us Paulina Jones MD LAB BLOOD ORDERABLE S Final Result [facility] [id number] [facility]. [place] [address] * (ABNORMAL) Lipid panel (04/27/2021 11:00 AM [...] revised on 2018. Non-HDL Cholesterol 158 mg/dL [facility] Comment: Interpretive Data Ages < or = [...] 2018. Chol/HDL ratio 6 [facility] Blood specimen (specimen) 04/27/2021 11:00 AM CDT 04/27/2021 12:49 PM CDT us Paulina Jones MD LAB BLOOD ORDERABLE S Final Result [facility] [address] [facility]. Department of Laboratories [place], [place] [id number] * Hepatic function panel (04/27/2021 11:00 AM CDT) Bilirubin, total 0.4 0.1 - 1.2 mg/dL [facility] Bilirubin, direct <0.2 0.1 - 0.3 mg/dL [facility] Protein, pl 6.9 6.5 - 8.5 g/dL [facility] Albumin 4.3 3.5 - 5.0 g/dL [facility] Alk phos 55 40 - 130 Units/L [facility] ALT 22 7 - 55 Units/L [facility] AST 22 10 - 50 Units/L [facility] Blood specimen (specimen) 04/27/2021 11:00 AM CDT 04/27/2021 12:49 PM CDT Paulina Jones MD LAB BLOOD ORDERABLE S Final Result [facility] [id number] [place] [address] * (ABNORMAL) CBC with auto differential (04/27/2021 11:00 AM CDT) WBC 6.4 3.8 - 9.9 K/cumm [facility] Hgb 12.4(L) 13.0 - 17.5 g/dL [facility] Hct 38.4(L) 38.9 - 50.3 % [facility] Plt 280 150 - 400 K/cumm [facility] MPV 10.7 9.1 - 12.3 fL [facility] RBC 4.28(L) 4.30 - 5.80 M/cumm [facility] MCV 89.7 81.3 - 96.4 fL [facility] MCH 29.0 27.1 - 33.3 pg [facility] W MCHC 32.3 32.3 - 35.7 g/dL [facility] RDW CV 14.3 11.1 - 14.9 % [facility] RDW SD 45.5 35.7 - 48.1 fL [facility] NRBC abs 0.00 0.00 - 0.01 K/cumm [facility] Blood specimen (specimen) 04/27/2021 11:00 AM CDT 04/27/2021 12:49 PM CDT Paulina Jones MD LAB BLOOD ORDERABLE S Final Result [facility] [id number] [place] [address] documented in this encounter Visit Diagnoses Diagnosis Crohn's disease of small and large intestines with complication (HCC) documented in this encounter Care Teams Advanced Manager Relationship Specialty Start Date End Date Kirstie Jarrell MD PCP - General 08/29/17 08/06/21 documented as of this encounter
--- OUTSIDE RECORDS SUMMARY | 2024-11-11 19:13 | XMS_ITS | Encounter Summary ---
Author Organization [facility] Address [address] [place] [address] Phone Care Team Providers Care Salvage Machine Operator Name Role Phone Kirstie Jarrell MD Primary Care Provider + Encounter Details Date Type Department Care Team (Late st Contact Info) Description 03/06/2021 Orders Only [facility] Gastroenterology [address] [facility] 8th [place] [address] [place] [address] Rita Lama RN Social History Tobacco Use Types Packs/Day Years Used Date Smoking Tobacco: Former Cigarettes Q uit: 2005 Smokeless Tobacco: Never Alcohol Use Standard Drinks/Week Comments Yes 0 (1 standard drink = 0.6 oz pur e alcohol) occasional Sex and Gender Information Value Date Recorded Sex Assigned at Not on file 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
--- OUTSIDE RECORDS SUMMARY | 2024-11-11 19:13 | XMS_ITS | Encounter Summary ---
Author Organization [facility] [facility] Address [address] [place] [address] Phone Care Team Providers Care Treasury Assistant Name Role Phone Kirstie Jarrell MD Primary Care Provider + Encounter Details Date Type Department Care Team (Late st Contact Info) Description 03/06/2021 Orders Only [facility] Gastroenterology [address] [facility] 8th [place] [address] [place] [phone] Rita Lama RN Anxiety (Primary Dx) Social History Tobacco Use Types Packs/Day Years Used Date Smoking Tobacco: Former Cigarettes Q uit: 2005 Smokeless Tobacco: Never Alcohol Use Standard Drinks/Week Comments Yes 0 (1 standard drink = 0.6 oz pur e alcohol) occasional Sex and Gender Information Value Date Recorded Sex Assigned at Not on file 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 Gender Identity Not on file Sexual Orientation Not on file documented as of this encounter Ordered Prescriptions Prescription Sig Dispense Quantity Refills Last Filled Start Date End Date ALPRAZolam (XANAX) 0.25 mg tabletIndications: Anxiety Take 1 tablet (0.25 mg total) by mouth daily As needed for anxiety 30 tablet 03/06/2021 documented in this encounter Plan of Treatment Upcoming Encounters Date Type Department Care Team (Late st Contact Info) Description 11/09/2024 Plan of Care Documentation [address] [place] [address] documented as of this encounter Visit Diagnoses Diagnosis Anxiety- Primary Anxiety state, unspecified documented in this encounter Care Teams Treasury Assistant Relationship Specialty Start Date End Date Kirstie Jarrell MD PCP - General 08/29/17 08/06/21 documented as of this encounter
--- OUTSIDE RECORDS SUMMARY | 2024-11-11 19:13 | XMS_ITS | Encounter Summary ---
Author Organization [facility] of [facility] Address [address] [place] [address] Phone Care Team Providers Care Coal Trammer Name Role Phone Kirstie Jarrell MD Primary Care Provider + Reason for Visit * Consultation (Routine) - Closed Specialty Diagnoses / Procedures Referred By Med ojeda Referred To Contact Psychiatry Diagnoses Crohn's disease of both small and large intestine without complication (CMS/HCC) (HCC) Paulina Jones MD [address] [place] [address] Phone: tel: fax: Petra Bowman, PhD [id number] [place] [address] Phone: tel: fax: Referral ID Status Reason Start Date Expiration Date V isits Requested Visits Authorized [id number] Closed Specialty Services Required 01/15/2021 02/14/2022 1 1 Encounter Details Date Type Department Care Team (Late st Contact Info) Description 06/11/2021 1:00 PM CDT Telemedicine [facility] Psychiatry [address] [facility] [facility] [address] [place] [address] Petra Bowman, PhD [id number] [place], [place] [id number] Adjustment disorder with anxious mood (Primary Dx) Social History Tobacco Use Types Packs/Day Years Used Date Smoking Tobacco: Former Cigarettes Q uit: 2004 Smokeless Tobacco: Never Alcohol Use Standard Drinks/Week Comments Yes 0 (1 standard drink = 0.6 oz pur e alcohol) occasional Sex and Gender Information Value Date Recorded Sex Assigned at Not on file 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 Visit Information This was a telemedicine visit with Ranjit Ojeda Jinnyterri alone which took place via Real-time video connection (Actionality, Zoom or similar). During the visit, I was located at home and the patient was located in the state [facility]. The patient visit started at 1:04 and ended at 2:10. The patient: has been informed that the visit may not be secure and acknowledged the information. The option of participating in a telephone or video visit during the [facility] emergency[facility] explained to them. After being [...] expressed Affect: Euthymic Insight/Judgement: Good The patient and I discussed his options in terms of working with a physician concerning his anti-anxiety medication. He said that he had talked about this issue with his primary care doctor and thinks that his doctor would be willing to prescribe small amounts of Xanax. Overall, he seems to be doing better with managing his anxiety. He thinks that he might still have to take medication when going on a long trip or being on a plane. However, he is willing to keep working on nonpharmacological techniques that he can use for his anxiety. We talked about him labeling some of his thoughts as ???worry thoughts?? and then shifting his focus. We also talked about recognizing when there cognitive d istortions in his thinking such as catastrophizing, disqualifying the positive and negative mental filtering. In addition he has been using an approach of identifying four things he can see, three things he can hear and two things that he can feel. We talked about how this is a technique that has been encouraged by a variety of therapists and many people find it helpful. He also thinks that taking five deep breaths would be helpful as well. We talked about how, if he has three strategies to usewhen he starts feeling anxious, and works on using them consistently, they may be well-established enough that he will not need to use the Xanax. We also talked about watching the [employer] illusion video from week two of the [place] Mind[facility] Stress Reduction program to understand that we focus on some aspects of our environment to the exclusion of others. We also talked about how week five of the program focuses on dealing more effectively with physical pain/discomfort and negative emotions. We talked about whether he wanted to schedule another appointment now or just wait to see if he wanted to schedule one. We agreed to schedule an appointment for August. I provided cognitive behavioral psychotherapy regarding improving emotional regulation skills. Assessment The patient's symptoms are somewhat improved. He is able to identify external stressors that affectmood/behavior and is using coping skills more consistently. Progress is good. Diagnosis (F43.22) Adjustment disorder with anxious mood (primary encounter diagnosis) Plan A follow up appointment was scheduled for 1 on 08/27. Therapy will continue to focus on helping thepatient to . The patient understands and agrees with the treatment plan. Dictated with dictation software Content of note will not result in changes in the allergy or medication lists or in changes to the problem list in terms of non-psychological diagnoses. documented in this encounter Plan of Treatment Upcoming Encounters Date Type Department Care Team (Late st Contact Info) Description 11/09/2024 Plan of Care Documentation [address] [address] [address] [place] [address] documented as of this encounter Visit Diagnoses Diagnosis Adjustment disorder with anxious mood- Primary Adjustment disorder with anxiety documented in this encounter Care Teams Coal Trammer Relationship Specialty Start Date End Date Kirstie Jarrell MD PCP - General 08/29/17 08/06/21 documented as of this encounter
--- OUTSIDE RECORDS SUMMARY | 2024-11-11 19:13 | XMS_ITS | Encounter Summary ---
Author Organization 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 Gender Identity Not on file Sexual Orientation Not on file documented as of this encounter Ordered Prescriptions Prescription Sig Dispense Quantity Refills Last Filled Start Date End Date metroNIDAZOLE (FLAGYL) 250 mg tabletIndications: Crohn's disease of both small and large intestine without complication (CMS/HCC) (HCC) Take 1 tablet (250 mg total) by mouth 3 (three) times a day for 14 days 42 tablet 10/29/2020 11/12/2020 documented in this encounter Plan of Treatment Upcoming Encounters Date Type Department Care Team (Late st Contact Info) Description 11/09/2024 Plan of Care Documentation [address] [place] [address] documented as of this encounter Visit Diagnoses Diagnosis Crohn's disease of both small and large intestine without complication (CMS/HCC) (HCC)- Primary documented in this encounter Care Teams Leather Piece Inspector Relationship Specialty Start Date End Date Kirstie Jarrell MD PCP - General 08/29/17 08/06/21 documented as of this encounter
--- OUTSIDE RECORDS SUMMARY | 2024-11-11 19:13 | XMS_ITS | Encounter Summary ---
Author Organization [facility] [employer] [facility] Address [address] [place] [address] Phone Care Team Providers Care Veterinary Science Teacher Name Role Phone Kirstie Jarrell MD Primary Care Provider + Encounter Details Date Type Department Care Team (Late st Contact Info) Description 01/02/2021 2:30 PM VMWARE ENGINEER Lab [facility] Oncology [address] [facility] [address] [place] [phone] Crohn's disease of small and large intestines [...] on file 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:34 AM 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 Gender Identity Not on file Sexual Orientation Not on file documented as of this encounter Plan of Treatment Upcoming Encounters Date Type Department Care Team (Late st Contact Info) Description 11/09/2024 Plan of Care Documentation [address] [address] [place] [address] documented as of this encounter Procedures Procedure Name Priority Date/Time Associated Diagnosis Comments DIFFERENTIAL AUTO Routine 01/02/2021 2:3 1 PM VMWARE ENGINEER Crohn's disease of small and large intestines with complication (CMS/HCC) CBC WITH AUTO DIFFERENTIAL Routine 01/02/2021 2:31 PM VMWARE ENGINEER Crohn's disease of small and large intestines with complication (CMS/HCC) HEPATIC FUNCTION PANEL Routine 01/02/2021 2:31 PM VMWARE ENGINEER Crohn's disease of small and large intestines with complication (CMS/HCC) LIPID PANEL Routine 01/02/2021 2:31 PM VMWARE ENGINEER Crohn's disease of small and large intestines with complication (CMS/HCC) documented in this encounter Results * Differential, auto (01/02/2021 2:31 PM VMWARE ENGINEER) Neutrophil abs 3.6 1.7 - 6.5 K/cumm [facility] Imm gran abs 0.0 0.0 - 0.1 K/cumm [facility] Lymphocyte abs 2.3 0.8 - 3.3 K/cumm [facility] Monocyte abs 0.4 0.2 - 0.8 K/cumm [facility] Eosinophil abs 0.1 0.0 - 0.5 K/cumm [facility] Basophil abs 0.0 0.0 - 0.1 K/cumm [facility] Neutrophil pct 57.0 % [facility] Comment: Interpretive Data Percent cell count reference ranges are not reported, since discordance with absolute values may lead to misinterpretation of CBC data. Current Interpretive Data was last revised on 2018. Imm gran pct 0.6 % [facility] Comment: Interpretive Data Percent cell count reference ranges are not reported, since discordance with absolute values may lead to misinterpretation of CBC data. Current Interpretive Data was last revised on 2018. Lymphocyte pct 35.5 % [facility] Comment: Interpretive Data Percent cell count reference ranges are not reported, since discordance with absolute values may lead to misinterpretation of CBC data. Current Interpretive Data was last revised on 2018. Monocyte pct 5.5 % [facility] Comment: Interpretive Data Percent cell count reference ranges are not reported, since discordance with absolute values may lead to misinterpretation of CBC data. Current Interpretive Data was last revised on 2018. Eosinophil pct 0.9 % [facility] Comment: Interpretive Data Percent [...] last revised on 2018. Blood specimen (specimen) 01/02/2021 2:31 PM VMWARE ENGINEER 01/02/2021 2:58 PM VMWARE ENGINEER us Paulina Jones MD LAB BLOOD ORDERABLE S Final Result [facility] [id number] [facility]. Department [place] [address] * (ABNORMAL) Lipid panel (01/02/2021 2:31 PM VMWARE ENGINEER) Cholesterol 208(H) 30 - 199 mg/dL [facility] Comment: [...] on 2018. Non-HDL Cholesterol 172 mg/dL [facility] Comment: Interpretive Data Ages < or = [...] last revised on 2018. Chol/HDL ratio 6 [facility] Blood specimen (specimen) 01/02/2021 2:31 PM VMWARE ENGINEER 01/02/2021 2:58 PM VMWARE ENGINEER us Paulina Jones MD LAB BLOOD ORDERABLE S Final Result [facility] [address] [facility]. Department [place] [address] * Hepatic function panel (01/02/2021 2:31 PM VMWARE ENGINEER) Bilirubin, total 0.8 0.1 - 1.2 mg/dL [facility] Bilirubin, direct <0.2 0.1 - 0.3 mg/dL [facility] Protein, pl 7.6 6.5 - 8.5 g/dL [facility] Albumin 4.7 3.5 - 5.0 g/dL [facility] Alk phos 66 40 - 130 Units/L [facility] ALT 30 7 - 55 Units/L [facility] AST 33 10 - 50 Units/L [facility] Blood specimen (specimen) 01/02/2021 2:31 PM VMWARE ENGINEER 01/02/2021 2:58 PM VMWARE ENGINEER Paulina Jones MD LAB BLOOD ORDERABLE S Final Result Performing Organization Address City/[facility]/ZIP Co de Phone Number [facility] [id number] [address] [employer] [place] [address] * CBC with auto differential (01/02/2021 2:31 PM VMWARE ENGINEER) [facility] WBC 6.3 3.8 - 9.9 K/cumm [facility] Hgb 13.5 13.0 - 17.5 g/dL [facility] Hct 40.8 38.9 - 50.3 % [facility] Plt 291 150 - 400 K/cumm [facility] MPV 10.1 9.1 - 12.3 fL [facility] RBC 4.65 4.30 - 5.80 M/cumm [facility] MCV 87.7 81.3 - 96.4 fL [facility] MCH 29.0 27.1 - 33.3 pg [facility] MCHC 33.1 32.3 - 35.7 g/dL [facility] RDW CV 13.7 11.1 - 14.9 % [facility] RDW SD 43.9 35.7 - 48.1 fL [facility] NRBC abs 0.00 0.00 - 0.01 K/cumm [facility] Blood specimen (specimen) 01/02/2021 2:31 PM VMWARE ENGINEER 01/02/2021 2:58 PM VMWARE ENGINEER Paulina Jones MD LAB BLOOD ORDERABLE S Final Result [facility] [id number] [address] [employer] [place] [address] documented in this encounter Visit Diagnoses Diagnosis Crohn's disease of small and large intestines with complication (HCC) documented in this encounter Care Teams Veterinary Science Teacher Relationship Specialty Start Date End Date Kirstie Jarrell MD PCP - General 08/29/17 08/06/21 documented as of this encounter
--- OUTSIDE RECORDS SUMMARY | 2024-11-11 19:14 | XMS_ITS | Encounter Summary ---
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 Gender Identity Not on file Sexual Orientation Not on file documented as of this encounter Ordered Prescriptions Prescription Sig Dispense Quantity Refills Last Filled Start Date End Date budesonide DR/ER (UCERIS) 9 mg tablet, delayed & ext.releaseIndicat ions:Ulcerative Colitis Take 1 tablet (9 mg total) by mouth daily 30 tablet 12/28/2019 12/28/2019 documented in this encounter Plan of Treatment Upcoming Encounters Date Type Department Care Team (Late st Contact Info) Description 11/09/2024 Plan of Care Documentation [address] [place] [address] documented as of this encounter Visit Diagnoses Diagnosis Crohn's disease of small and large intestines with complication (HCC)- Primary documented in this encounter Care Teams Airfield Manager Relationship Specialty Start Date End Date Kirstie Jarrell MD PCP - General 08/29/17 08/06/21 documented as of this encounter
--- OUTSIDE RECORDS SUMMARY | 2024-11-11 19:14 | XMS_ITS | Encounter Summary ---
Author Organization [facility] [employer] [facility] Address [address] [place] [address] Phone Care Team Providers Care Manager Army Name Role Phone Kirstie Jarrell MD Primary Care Provider + Encounter Details Date Type Department Care Team (Late st Contact Info) Description 08/09/2019 Orders Only [facility] Gastroenterology [address] [facility] 8th [place] [address] [place] [address] Rita Lama RN Social History Tobacco Use Types Packs/Day Years Used Date Smoking Tobacco: Former Cigarettes Q uit: 2005 Smokeless Tobacco: Never Alcohol Use Standard Drinks/Week Comments Yes 0 (1 standard drink = 0.6 oz pur e alcohol) occasional Sex and Gender Information Value Date Recorded Sex Assigned at Not on file 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 Gender Identity Not on file Sexual Orientation Not on file documented as of this encounter Ordered Prescriptions Prescription Sig Dispense Quantity Refills Last Filled Start Date End Date ustekinumab (STELARA) injection Inject 1 mL (90 mg total) under the skin every 8 (eight) weeks SAFETY LABS REQUIRED EVERY 3 MONTHS FOR REFILLS DUE 10/2019 1 mL 5 08/09/2019 9 ustekinumab (STELARA) injection Inject 1 mL (90 mg total) under the skin every 8 (eight) weeks SAFETY LABS REQUIRED EVERY 3 MONTHS FOR REFILLS DUE 10/2019 1 mL 5 08/09/2019 9 documented in this encounter Plan of Treatment Upcoming Encounters Date Type Department Care Team (Late st Contact Info) Description 11/09/2024 Plan of Care Documentation [address] [place] [address] documented as of this encounter Visit Diagnoses Not on filedocumented in this encounter Discontinued Medications Medication Sig Discontinue Reason Start Date End Da te ustekinumab (STELARA) injection Inject 1 mL (90 mg total) under the skin every 8 (eight) weeks SAFETY LABS REQUIRED EVERY 3 MONTHS FOR REFILLS DUE 10/2019 Reorder 07/27/2019 08/09/2019 ustekinumab (STELARA) injection Inject 1 mL (90 mg total) under the skin every 8 (eight) weeks SAFETY LABS REQUIRED EVERY 3 MONTHS FOR REFILLS DUE 10/201908/09/2019 08/09/2019 documented as of this encounter Care Teams Manager Army Relationship Specialty Start Date End Date Kirstie Jarrell MD PCP - General 08/29/17 08/06/21 documented as of this encounter
--- OUTSIDE RECORDS SUMMARY | 2024-11-11 19:14 | XMS_ITS | Encounter Summary ---
Author Organization [facility] Address [address] [place] [address] Phone Care Team Providers Care Crop Quantitative Geneticist Name Role Phone Kirstie Jarrell MD Primary Care Provider + Encounter Details Date Type Department Care Team (Late st Contact Info) Description 04/24/2020 Orders Only [facility] Gastroenterology [address] [facility] 8[address] [place] [address] [place] [address] Rita Lama RN Crohn's disease of both small and large intestine with intestinal obstruction (CMS/HCC) (Primary Dx); High risk medications (not [...] on file 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 Gender Identity Not on file Sexual Orientation Not on file documented as of this encounter Progress Notes * Rita Lama RN - 04/24/2020 12:44 PM CDT lipid documented in this encounter Plan of Treatment Upcoming Encounters Date Type Department Care Team (Late st Contact Info) Description 11/09/2024 Plan of Care Documentation [address] [place] [address] Scheduled Orders Name Type Priority Associated Diagnoses Orde r Schedule Lipid panel Lab Routine Crohn's disease of both small and large intestine with intestinal obstruction (CMS/HCC) High risk medications (not anticoagulants) long-term use Expected: 04/24/2020, Expires: 04/24/2021 TB test, quantiferon gold Lab Routine Crohn's disease of both small and large intestine with intestinal obstruction (CMS/HCC) High risk medications (not anticoagulants) long-term use Expected: 04/24/2020, Expires: 04/24/2021 CBC with auto differential Lab Routine Crohn's disease of both small and large intestine with intestinal obstruction (CMS/HCC) High risk medications (not anticoagulants) long-term use Expected: 04/24/2020, Expires: 04/24/2021 Hepatic function panel Lab Routine Crohn's disease of both small and large intestine with intestinal obstruction (CMS/HCC) High risk medications (not anticoagulants) long-term use 4 Occurrences starting 04/24/2020 until 04/24/2021 Thiopurine metabolites Lab Routine Crohn's disease of both small and large intestine with intestinal obstruction (CMS/HCC) High risk medications (not anticoagulants) long-term use Expected: 04/24/2020, Expires: 04/24/2021 documented as of this encounter Visit Diagnoses Diagnosis Crohn's disease of both small and large intestine with intestinal obstruction (HCC)- Primary High risk medications (not anticoagulants) long-term use Encounter for long-term (current) use of other medications documented in this encounter Care Teams Crop Quantitative Geneticist Relationship Specialty Start Date End Date Kirstie Jarrell MD PCP - General 08/29/17 08/06/21 documented as of this encounter
--- OUTSIDE RECORDS SUMMARY | 2024-11-11 19:14 | XMS_ITS | Encounter Summary ---
Author Organization [facility] [employer] of [facility] Address [address] [place] [address] Phone Care Team Providers Care Ceo And President Name Role Phone Kirstie Jarrell MD Primary Care Provider + Encounter Details Date Type Department Care Team (Late st Contact Info) Description 12/04/2019 Documentation [facility] Gastroenterology [facility] 8th [place] [address] [place] [address] Penelope Lai Social History Tobacco Use Types Packs/Day Years Used Date Smoking Tobacco: Former Cigarettes Q uit: 2005 Smokeless Tobacco: Never Alcohol Use Standard Drinks/Week Comments Yes 0 (1 standard drink = 0.6 oz pur e alcohol) occasional Sex and Gender Information Value Date Recorded Sex Assigned at Not on file 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 Gender Identity Not on file Sexual Orientation Not on file documented as of this encounter Progress Notes * Penelope Lai - 12/04/2019 11:48 AM CST Pt scheduled for MRE on 01/07/2020 at 2:00 pm with a 12:30 pm arrival at [facility], NPO 4 hours, pt aware of appointment through portal GE INSTRUCTOR GE INSTRUCTOR documented in this encounter Plan of Treatment Upcoming Encounters Date Type Department Care Team (Late st Contact Info) Description 11/09/2024 Plan of Care Documentation [facility] - [address] [place] [address] documented as of this encounter Visit Diagnoses Not on filedocumented in this encounter Care Teams Ceo And President Relationship Specialty Start Date End Date Kirstie Jarrell MD PCP - General 08/29/17 08/06/21 documented as of this encounter
--- OUTSIDE RECORDS SUMMARY | 2024-11-11 19:14 | XMS_ITS | Encounter Summary ---
Author Organization [facility] Address [address] [place] [address] Phone Care Team Providers Care Waste Transportation Technician Name Role Phone Kirstie Jarrell MD Primary Care Provider + Kirstie Jarrell MD Primary Care Provider + Emmanuel Wesley DO Primary Care Provider [phone] Encounter Details Date Type Department Care Team (Late st Contact Info) Description 08/21/2020 Orders Only [facility] Scanning, Provider Social History Tobacco Use Types Packs/Day Years Used Date Smoking Tobacco: Former Cigarettes Q uit: 2005 Smokeless Tobacco: Never Alcohol Use Standard Drinks/Week Comments Yes 0 (1 standard drink = 0.6 oz pur e alcohol) occasional Sex and Gender Information Value Date Recorded Sex Assigned at Not on file 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 Gender Identity Not on file Sexual Orientation Not on file documented as of this encounter Plan of Treatment Upcoming Encounters Date Type Department Care Team (Late st Contact Info) Description 11/09/2024 Plan of Care Documentation [address] [address] [address] [place] [address] documented as of this encounter Procedures Procedure Name Priority Date/Time Associated Diagnosis Comments SCAN - RADIOLOGY/IMAGING 08/21/2020 SCAN - LABS 08/21/2020 documented in this encounter Results * SCAN - LABS (08/21/2020) us Provider Scanning Final Result * SCAN - RADIOLOGY/IMAGING (08/21/2020) Anatomical Region Laterality Modality Other us Provider Scanning Final Result documented in this encounter Visit Diagnoses Not on filedocumented in this encounter Care Teams Waste Transportation Technician Relationship Specialty Start Date End Date Kirstie Jarrell MD PCP - General 08/29/17 08/06/21 Kirstie Jarrell MD [address] [place], [place] [id number] PCP - General 08/07/21 12/10/21 Emmanuel Wesley DO [address] [place], [place] [id number] PCP - General Internal Medicine 12/11/21 documented as of this encounter
--- OUTSIDE RECORDS SUMMARY | 2024-11-11 19:14 | XMS_ITS | Encounter Summary ---
Author Organization [facility] Address [address] [place] [address] Phone Care Team Providers Care Journalism Teacher Name Role Phone Kirstie Jarrell MD Primary Care Provider + Reason for Visit * Episode Based Medications (Routine) - Closed Specialty Diagnoses / Procedures Referred By Med bazan Referred To Contact Diagnoses Crohn's disease of small and large intestines with complication (HCC) Procedures MA USTEKINUMAB, IV INJECT, 1 MG Paulina Jones MD [address] [place] [address] Phone: tel: fax: [facility] [address] [place] [address] [address] [place] [address] Phone: tel: Referral ID Status Reason Start Date Expiration Date Visits Re quested Visits Authorized [id number] Closed 08/09/2019 11/09/2019 1 1 Encounter Details Date Type Department Care Team (Late st Contact Info) Description 08/24/2019 10:30 AM CDT Infusion [facility] [address] [place] [address] [address] [place] [address] Crohn's disease of both small and large intestine with intestinal obstruction (CMS/HCC) (Primary Dx); Crohn's disease of small and large intestines [...] on file 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 Patient denies any active infections. PIV placed and dose infused. Patient tolerated infusion well. Encouraged patient to stay for 30 min after and he declined stating he feels fine and needs to get back to work. Patient aware to go to ER if anything changes. PIV removed and patient discharged. documented in this encounter Plan of Treatment Upcoming Encounters Date Type Department Care Team (Late st Contact Info) Description 11/09/2024 Plan of Care Documentation [address] [address] [address] [place] [address] documented as of this encounter Visit Diagnoses Diagnosis Crohn's disease of both small and large intestine with intestinal obstruction (HCC)- Primary Crohn's disease of small and large intestines with complication (HCC) documented in this encounter Administered Medications Inactive Administered Medications - up to 3 most recent administrations Medication Order MAR Action Action Date Dose Rate Site sodium chloride 0.9% flush 10 mL 10 mL, intravenous, As needed, line care, Starting on Tue08/24/19 at 1050, Flush pre and post IV catheter use.Indications:Crohn's disease of small and large intestines with complication (HCC) Given 08/24/2019 11:00 AM CDT 10 mL ustekinumab (STELARA) 520 mg in sodium chloride 0.9% 250 mL IVPB 520 mg, intravenous, Administer over 60 Minutes, Once, On Tue08/24/19 at 1130, For 1 dose, Crohn's disease dose: Current weight 115.7 kg Weight less than or equal to 55 k mg Greater than 55 kg to 85 k mg Greater than 85 k mg Use 0.2 micron filter, low-sorbingIndications:Crohn' s disease of small and large intestines with complication (HCC) New Bag 08/24/2019 11:05 AM CDT 520 mg 250 mL/hr documented in this encounter Orders Nursing Count Last Ordered Date First Orde red Date ONCBCN NURSING COMMUNICATION [id number] 1 1 PATIENT EDUCATION (SPECIFY) 1 08/24/2019 Appointment Requests Count Last Ordered Date Fi rst Ordered Date INFUSION APPT REQUEST 90 MIN 1 08/24/2019 documented in this encounter Care Teams Journalism Teacher Relationship Specialty Start Date End Date Kirstie Jarrell MD PCP - General 08/29/17 08/06/21 documented as of this encounter
--- OUTSIDE RECORDS SUMMARY | 2024-11-11 19:14 | XMS_ITS | Encounter Summary ---
Author Organization [facility] Address [address] [place] [address] Phone Care Team Providers Care Controlled Atmospheric Furnace Brazer Name Role Phone Kirstie Jarrell MD Primary Care Provider + Encounter Details Date Type Department Care Team (Late st Contact Info) Description 04/29/2020 8:00 AM CDT Telemedicine [facility] [address] [facility] Medical Office [address] [place] [address] Paulina Jones MD [address] [place] [address] Crohn's disease of small and large intestines with complication (CMS/HCC) (Primary Dx); High risk medications [...] file 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 Gender Identity Not on file Sexual Orientation Not on file documented as of this encounter Patient Instructions * Patient Instructions* Rita Lama RN - 04/29/2020 8:00 AM CDT Stop PeterP and Yvonne( after today) OFFICE TO SUBMIT FOR ENTYVIO- RE-INDUCTION Start Xeljanz 10 mg tabs, 1 tab twice daily - 3 months sample to patient, will submit for the Xeljanz To insurance one Entyvdudley is approved Labs today at [facility] follow up in office in 4 months documented in this encounter Ordered Prescriptions Prescription Sig Dispense Quantity Refills Last Filled Start Date End Date tofacitinib (Xeljanz) 10 mg tabletIndications: Crohn's disease of small and large intestines with complication (HCC) Take 1 tablet (10 mg total) by mouth 2 (two) times a day LABS REQUIRED EVERY 3 MONTHS FOR REFILLS Due 08/2020(CBC LFT's Lipid Profile) 60 tablet 5 04/29/2020 1 tofacitinib (Xeljanz) 10 mg tabletIndications: Crohn's disease of small and large intestines with complication (HCC) Take 1 tablet (10 mg total) by mouth 2 (two) times a day LABS REQUIRED EVERY 3 MONTHS FOR REFILLS Due 08/2020(CBC LFT's Lipid Profile) 60 tablet 5 04/29/2020 0 documented in this encounter Progress Notes * Izabela Gregory, LISS - 04/29/2020 8:00 AM CDT Images from the original note were not included. [facility] TELEHEALTH CLINIC VISIT This was a telemedicine visit with Ranjit Peralta and his which took place via Real-time video connection ([employer], [employer] or similar).During the visit, I was located in the office and the patient was located at home in the [facility]. I was present for the curiel portions with the resident and patient/caregiver. I agree with the findings and plan of care as documented in the resident's note. My visit with the patient started at 7:40 and ended at 8:10a. Total encounter time was 30 min, which includes time spent today on pre charting, the patient encounter, and post charting. The patient: has been informed that the visit may not be secure and acknowledged the information. The YACHT RIGGER/PA has explained the option of participating in a telephone or video visit during the [address] emergency to them. After being given an opportunity to ask questions about and discuss this type of visit, they verbally consented to proceeding with the telephone/video visit and understand that this service replaces an office visit and they may be billed and/or responsible for any applicable copayments. REASON FOR VISIT: Follow-up for treatment refractory ileocolonic Crohn's disease CURRENT MEDICATIONS: Uceris, folic acid, vitamin-D, Stelara 90 mg every 4 weeks PROBLEM LIST: 1.?Ileocolonic and perianal Crohn's disease, diagnosed in 2006, with a presentation of hematochezia and a perianal fistula with abscess. ??The patient was previously treated with Humira, Cimzia, Remicade, methotrexate, 6-MP, and most recently a combination of Entyvio with methotrexate, with a colonoscopy demonstrating some mild proctitis in 03/2018 and a stricture at IC valve; at that time,the patient was recommended to undergo surgery, given that he had this very tight IC valve stricture and was having intermittent obstructions, ultimately was found have low trough levels (2.9) in October of 2018 his interval was shortened to every 6 weeks. Unfortunately took several months to get this approved him by that point we could not recapture the response as his recent colonoscopy, done in July 2019, demonstrated again active disease at his ileocecal valve but he also has active ileal disease and active proctitis. ??As a result, he was started on Stelara and Entyvio was stopped.He had the 1st infusion of Stelara on 08/24/2019. Unfortunately he remained symptomatic with MRE findings from 01/08/2020 concerning for acute on chronic disease in the rectum and terminal ileum. HisStelara trough level was noted to be subtherapeutic at 0.8 mcg/mL at every 8 weeks. He was advised shorten his interval to every 4 weeks and remain on methotrexate but unfortunately remained symptomatic. Retrial of mercaptopurine with the Stelara caused recurrence of severe joint pain. 2. History of significant gout flares while on thiopurines leading to their discontinuation. This could not be prevented with allopurinol. Requiring steroid tapers, indomethacin, and colchicine. Patient had difficulty with colchicine causing diarrhea 3. Difficulty tolerating methotrexate due to malaise and depressive symptoms 4. Positive JERALD virus titer of 2.15 HISTORY OF PRESENT ILLNESS: Ranjit Peralta is a pleasant 39 y.o. male with past medical history of treatment refractory ileocolonic and perianal Crohn's disease who presents today for follow-up. The patient was last seen in clinic on March 25, 2019 at which time he had been on monthly Stelara for several months with improvement in his right lower quadrant pain but persistent urgency and hematochezia suggestive of active rectal disease. He had difficulty using Proctofoam. He was compliant with his methotrexate. In an effort to optimize his Stelara, we offered him a retrial of mercaptopurineas his symptoms previously had been associated with azathioprine and allopurinol. Unfortunately within days the patient reported extreme joint pain particularly in his feet to the point that he couldbarely walk. He also experienced worsening diarrhea. All of his symptoms resolved within days of margy ng off mercaptopurine. He again states that he felt the best on Entyvio but eventually lost response. The patient presents today to discuss treatment options. The patient is using Uceris foam a for rectal symptoms. He otherwise feels much better since discontinuing the mercaptopurine. Unfortunately within days of starting that and for the duration of taking the mercaptopurine he had crippling jointpain and diarrhea. The patient's also notes that he has never as cheerful or as comfortable while on methotrexate. He still has increased stool frequency and urgency but presently currently thinks it is manageable. He has not had any recent obstructive symptoms. REVIEW OF SYSTEMS: As per HPI, all other systems negative PHYSICAL EXAM: Exam by interview only via video visit today. There were no vital signs taken for this visit. Reports weight is stable General: Well-appearing male in no acute cardiopulmonary distress HEENT: Sclerae are not inflamed or icteric, nose and mouth do not appear overtly inflamed or deformed Neurological: Alert and oriented with no focal deficits affecting the head or upper extremities Psych: Calm, cooperative, appropriate Labs: Recent laboratory results reviewed ASSESSMENT AND PLAN: Ranjit Peralta is a gabby 39 y.o. male with very refractory ileocolonic Crohn's disease who presents to discuss treatment options.. 1. Ileocolonic Crohn's disease. Unfortunately the patient's disease has been very refractory. He felt the best on Entyvio but he had an incomplete response in the terminal ileum. His levels were quite low and we had difficulty getting it approved for 6 weeks and ultimately he may have benefited from every 4 week dosing. We would like to restart Entyvio as it least he had some benefit with his proctitis. We will also plan to check his levels once he is established on this medicine. In addition to induce remission, we would like to start Xeljanz 10 mg b.i.d.. We will offer him samples. If he isable to achieve remission, we will try reducing this to 5 mg b.i.d. Unfortunately the patient has either not tolerated or benefitted significantly from other combination therapies such as thiopurinesor methotrexate. The patient is not a candidate for Tysabri as he has an elevated JERALD virus titer 2. Ileal stricture. The patient is encouraged to continue a low residue diet 3. Healthcare maintenance. If possible we would love the patient to get vaccinated for Shingrix given the risk with Xeljanz. He is otherwise encouraged to continue routine vaccination for flu and follow closely with his care team for other healthcare needs. The patient and his were given ample opportunity to ask questions and have them answered. We would like him to return in 4 months. This note was created in part with the assistance of [employer] voice recognition software. Rehabilitation Services Manager variances may occur. Cosigned by Paulina Jones MD at 04/29/2020 11:07 AM CDT Associated attestation - Paulina Jones MD - 04/29/2020 11:07 AM CDT I have seen and examined the patient. I agree with the findings and plan of care as documented in the resident/fellow's note. documented in this encounter Miscellaneous Notes * Result Encounter Note - Paulina Jones MD - 05/20/2020 8:15 AM CDT CBC OK documented in this encounter Plan of Treatment Upcoming Encounters Date Type Department Care Team (Late st Contact Info) Description 11/09/2024 Plan of Care Documentation [address] [address] [address] [place] [address] Scheduled Orders Name Type Priority Associated Diagnoses Orde r Schedule TB test, quantiferon gold Lab Routine Crohn's disease of small and large intestines with complication (CMS/HCC) High risk medications (not anticoagulants) long-term use Expected: 04/29/2020, Expires: 04/29/2021 documented as of this encounter Procedures Procedure Name Priority Date/Time Associated Diagnosis Comments QUANTIFERON-TB GOLD PLUS Routine 05/16/2020 1:33 PM CDT CBC WITH AUTO DIFFERENTIAL Routine 05/16/2020 1:33 PM CDT Crohn's disease of small and large intestines with complication (CMS/HCC) High risk medications (not anticoagulants) long-term use HEPATIC FUNCTION PANEL Routine 05/16/2020 1:33 PM CDT Crohn's disease of small and large intestines with complication (CMS/HCC) High risk medications (not anticoagulants) long-term use LIPID PANEL Routine 05/16/2020 1:33 PM CDT Crohn's disease of small and large intestines with complication (CMS/HCC) High risk medications (not anticoagulants) long-term use documented in this encounter Results * QuantiFERON-TB Gold Plus (05/16/2020 1:33 PM CDT) Pathologist [facility] QuantiFERON Incubation Incubation performed. [facility] - 01 QuantiFERON Criteria Comment [facility] - 01 Comment: The QuantiFERON-TB Gold Plus result is determined by subtracting the Nil value from either TB antigen (Ag) tube. The mitogen tube serves as a control for the test. QuantiFERON TB1 Ag Value 0.02 IU/mL [facility] - 01 QuantiFERON TB2 Ag Value 0.01 IU/mL [facility] - 01 QuantiFERON Nil Value 0.01 IU/mL [facility] - 01 QuantiFERON Mitogen Value 5.25 IU/mL [facility] - 01 QuantiFERON-TB Gold Plus Negative Negative [facility] - 01 05/16/2020 1:33 PM CDT 05/16/2020 Narrative [facility] - 05/19/2020 10:04 PM CDT Performed at: ??01 - [facility] ??[id number] General Maintenance Technician: Gentry Dewey PhD, Phone: ??[phone] Paulina Jones MD LAB BLOOD ORDERABLE S Final Result Performing Organization Address [facility]/ZIP Co de Phone Number [facility] * (ABNORMAL) Lipid panel (05/16/2020 1:33 PM CDT) Cholesterol 198 100 - 199 mg/dL [facility] - 01 Triglycerides 137 0 - 149 mg/dL [facility] - 01 HDL Cholesterol 38(L) >39 mg/dL [facility] - 01 VLDL 27 5 - 40 mg/dL [facility] - 01 LDL, calculated 133(H) 0 - 99 mg/dL [facility] - 01 Blood specimen (specimen) 05/16/2020 1:33 PM CDT 05/16/2020 Narrative [facility] - 05/19/2020 10:04 PM CDT Performed at: ??01 - [facility] ??[id number] General Maintenance Technician: Gentry Dewey PhD, Phone: ??[phone] Paulina Jones MD LAB BLOOD ORDERABLE S Final Result Performing Organization Address [facility]/ZIP Co de Phone Number [facility] - * Hepatic function panel (05/16/2020 1:33 PM CDT) Protein, sr 7.3 6.0 - 8.5 g/dL [facility] - 01 Albumin 4.8 4.0 - 5.0 g/dL [facility] - 01 Bilirubin, Total 0.7 0.0 - 1.2 mg/dL [facility] - 01 Bilirubin, direct 0.17 0.00 - 0.40 mg/dL [facility] - 01 Alk phos 58 39 - 117 IU/L [facility] - 01 AST 30 0 - 40 IU/L [facility] - 01 ALT 27 0 - 44 IU/L [facility] - 01 Blood specimen (specimen) 05/16/2020 1:33 PM CDT 05/16/2020 Narrative [facility] - 05/19/2020 10:04 PM CDT Performed at: ?? - [facility] [address] ??[id number] General Maintenance Technician: Gentry Dewey PhD, Phone: ??[phone] us Paulina Jones MD LAB BLOOD ORDERABLE S Final Result [facility] - 01 * CBC with auto differential (05/16/2020 1:33 PM CDT) WBC 7.9 3.4 - 10.8 x10E3/uL [facility] - 01 RBC 4.76 4.14 - 5.80 x10E6/uL [facility] - 01 Hgb 13.2 13.0 - 17.7 g/dL [facility] - 01 Hct 41.2 37.5 - 51.0 % [facility] - 01 MCV 87 79 - 97 fL [facility] - 01 MCH 27.7 26.6 - 33.0 pg [facility] - 01 MCHC 32.0 31.5 - 35.7 g/dL [facility] - 01 Rdw 13.3 11.6 - 15.4 % [facility] - 01 Platelets 332 150 - 450 x10E3/uL [facility] - 01 Neutrophils pct 60 Not Estab. % [facility] - 01 Lymphs pct 32 Not Estab. % [facility] - 01 Monocytes pct 6 Not Estab. % [facility] - 01 Eosinophils pct 1 Not Estab. % [facility] - 01 Basophil pct 1 Not Estab. % [facility] - 01 Neutrophil abs 4.7 1.4 - 7.0 x10E3/uL [facility] - 01 Lymphs (Absolute) 2.5 0.7 - 3.1 x10E3/uL [facility] - 01 Monocyte abs 0.5 0.1 - 0.9 x10E3/uL [facility] - 01 Eosinophils, abs 0.1 0.0 - 0.4 x10E3/uL [facility] - 01 Basophils, abs 0.1 0.0 - 0.2 x10E3/uL [facility] - 01 Immature Granulocytes 0 Not Estab. % [facility] - 01 Immature Grans (Abs) 0.0 0.0 - 0.1 x10E3/uL [facility] - 01 Blood specimen (specimen) 05/16/2020 1:33 PM CDT 05/16/2020 Narrative [facility] - 05/19/2020 10:04 PM CDT Performed at: ??01 - [facility] [address], [place], [place] ??[id number] General Maintenance Technician: Gentry Dewey PhD, Phone: ??[phone] us Paulina Jones MD LAB BLOOD ORDERABLE S Final Result [facility] - documented in this encounter Visit Diagnoses Diagnosis Crohn's disease of small and large intestines with complication (HCC)- Primary High risk medications (not anticoagulants) long-term use Encounter for long-term (current) use of other medications documented in this encounter Discontinued Medications Medication Sig Discontinue Reason Start Date End Da te mercaptopurine (PURINETHOL) 50 mg tabletIndications:Crohn' s Disease Take 1 .5 tabs daily, labs due week of 04/11 and then again week of 04/25(metabolites at [facility]) Side effects 03/25/2020 04/29/2020 ustekinumab (STELARA) injectionIndications:Wastewater Project Engineer hn's disease of both small and large intestine with intestinal obstruction (HCC) Inject 90 mg SQ every 4 weeks-SAFETY LABS REQUIRED EVERY 3 MONTHS FOR REFILLS DUE 03/2020 Therapy completed 01/07/2020 04/29/2020 tofacitinib (Xeljanz) 10 mg tabletIndications:Crohn' s disease of small and large intestines with complication (HCC) Take 1 tablet (10 mg total) by mouth 2 (two) times a day LABS REQUIRED EVERY 3 MONTHS FOR REFILLS Due 08/2020(CBC LFT's Lipid Profile) 04/29/2020 04/29/2020 documented as of this encounter Historical Medications * This list may reflect changes made after this encounter. vedolizumab (ENTYVIO) 300 mg recon soln Infuse 300 mg into a venous catheter every 4 (four) weeks Every 4 weeks as of 10/28/2020 based on low drug level At [facility] 02/23/2022 added in this encounter Care Teams Controlled Atmospheric Furnace Brazer Relationship Specialty Start Date End Date Kirstie Jarrell MD PCP - General 08/29/17 08/06/21 documented as of this encounter
--- OUTSIDE RECORDS SUMMARY | 2024-11-11 19:14 | XMS_ITS | Encounter Summary ---
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 Gender Identity Not on file Sexual Orientation Not on file documented as of this encounter Progress Notes * Paulina Jones MD - 08/24/2019 1:30 PM CDT CBC and LFTs OK documented in this encounter Plan of Treatment Upcoming Encounters Date Type Department Care Team (Late st Contact Info) Description 11/09/2024 Plan of Care Documentation [address] [place] [address] documented as of this encounter Procedures Procedure Name Priority Date/Time Associated Diagnosis Comments DIFFERENTIAL AUTO Routine 08/24/2019 12: 00 PM CDT Crohn's disease of small and large intestines with complication (CMS/HCC) CBC WITH AUTO DIFFERENTIAL Routine 08/24/2019 12:00 PM CDT Crohn's disease of small and large intestines with complication (CMS/HCC) HEPATIC FUNCTION PANEL Routine 08/24/2019 12:00 PM CDT Crohn's disease of small and large intestines with complication (CMS/HCC) documented in this encounter Results * Differential, auto (08/24/2019 12:00 PM CDT) Neutrophil abs 5.6 1.7 - 6.5 K/cumm [facility] Imm gran abs 0.0 0.0 - 0.1 K/cumm [facility] Lymphocyte abs 1.8 0.8 - 3.3 K/cumm [facility] Monocyte abs 0.6 0.2 - 0.8 K/cumm [facility] Eosinophil abs 0.1 0.0 - 0.5 K/cumm [facility] Basophil abs 0.0 0.0 - 0.1 K/cumm [facility] Neutrophil pct 68.6 % [facility] Comment: Interpretive Data Percent [...] was last revised on 2018. Lymphocyte pct 22.5 % [facility] Comment: Interpretive Data Percent cell count reference ranges are not reported, since discordance with absolute values may lead to misinterpretation of CBC data. Current Interpretive Data was last revised on 2018. Monocyte pct 6.8 % [facility] Comment: Interpretive Data Percent cell count reference ranges are not reported, since discordance with absolute values may lead to misinterpretation of CBC data. Current Interpretive Data was last revised on 2018. Eosinophil pct 1.3 % [facility] Comment: Interpretive Data Percent cell count reference ranges are not reported, since discordance with absolute values may lead to misinterpretation of CBC data. Current Interpretive Data was last revised on 2018. Basophil pct 0.4 % [facility] Comment: Interpretive Data Percent cell count reference ranges are not reported, since discordance with absolute values may lead to misinterpretation of CBC data. Current Interpretive Data was last revised on 2018. Blood specimen (specimen) 08/24/2019 12:00 PM CDT 08/24/2019 12:27 PM CDT us Paulina Jones MD LAB BLOOD ORDERABLE S Final Result [facility] [id number] [facility] [address] * CBC with auto differential (08/24/2019 12:00 PM CDT) WBC 8.2 3.8 - 9.9 K/cumm [facility] Hgb 13.8 13.0 - 17.5 g/dL [facility] Hct 41.6 38.9 - 50.3 % [facility] Plt 262 150 - 400 K/cumm [facility] MPV 10.2 9.1 - 12.3 fL [facility] RBC 4.37 4.30 - 5.80 M/cumm [facility] MCV 95.2 81.3 - 96.4 fL [facility] MCH 31.6 27.1 - 33.3 pg [facility] MCHC 33.2 32.3 - 35.7 g/dL [facility] RDW CV 12.5 11.1 - 14.9 % [facility] RDW SD 43.1 35.7 - 48.1 fL [facility] NRBC abs 0.00 0.00 - 0.01 K/cumm [facility] Blood specimen (specimen) 08/24/2019 12:00 PM CDT 08/24/2019 12:27 PM CDT Paulina Jones MD LAB BLOOD ORDERABLE S Final Result Performing Organization Address [facility]/ZIP Co de Phone Number [place] [phone] [address] [phone] * (ABNORMAL) Hepatic function panel (08/24/2019 12:00 PM CDT) Bilirubin, total 0.8 0.1 - 1.2 mg/dL [facility] Bilirubin, direct <0.2 0.1 - 0.3 mg/dL [facility] Protein, pl 6.9 6.5 - 8.5 g/dL [facility] Albumin 4.3 3.5 - 5.0 g/dL [facility] Alk phos 54 40 - 130 Units/L [facility] ALT 69(H) 7 - 55 Units/L [facility] AST 38 10 - 50 Units/L [facility] Blood specimen (specimen) 08/24/2019 12:00 PM CDT 08/24/2019 12:27 PM CDT Paulina Jones MD LAB BLOOD ORDERABLE S Final Result Performing Organization Address [facility] Co de Phone Number [place] [phone] [address] [phone] documented in this encounter Visit Diagnoses Diagnosis Crohn's disease of small and large intestines with complication (HCC) documented in this encounter Care Teams Equipment Washer Relationship Specialty Start Date End Date Kirstie Jarrell MD PCP - General 08/29/17 08/06/21 documented as of this encounter
--- OUTSIDE RECORDS SUMMARY | 2024-11-11 19:14 | XMS_ITS | Encounter Summary ---
Author Organization [facility] Address [address] [place] [address] Phone Care Team Providers Care Metal Mockup Maker Name Role Phone Kirstie Jarrell MD Primary Care Provider + Encounter Details Date Type Department Care Team (Late st Contact Info) Description 12/28/2019 Orders Only [facility] Gastroenterology [facility] [address] [place] [address] [place] [address] Rita Lama RN Crohn's disease of both small and large intestine with intestinal obstruction (CMS/HCC) (Primary Dx) Social History Tobacco Use Types Packs/Day Years Used Date Smoking Tobacco: Former Cigarettes Q uit: 2005 Smokeless Tobacco: Never Alcohol Use Standard Drinks/Week Comments Yes 0 (1 standard drink = 0.6 oz pur e alcohol) occasional Sex and Gender Information Value Date Recorded Sex Assigned at Not on file 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 Gender Identity Not on file Sexual Orientation Not on file documented as of this encounter Ordered Prescriptions Prescription Sig Dispense Quantity Refills Last Filled Start Date End Date predniSONE (DELTASONE) 20 mg tabletIndications: Crohn's disease of both small and large intestine with intestinal obstruction (HCC) Take 1 tab(20 mg)) every morning with food for 21 days by mouth as directed 21 tablet 12/28/2019 0 documented in this encounter Plan of Treatment Upcoming Encounters Date Type Department Care Team (Late st Contact Info) Description 11/09/2024 Plan of Care Documentation [address] [place] [address] documented as of this encounter Visit Diagnoses Diagnosis Crohn's disease of both small and large intestine with intestinal obstruction (HCC)- Primary documented in this encounter Discontinued Medications Medication Sig Discontinue Reason Start Date End Da te budesonide DR/ER (UCERIS) 9 mg tablet, delayed & ext.releaseIndications:U lcerative Colitis Take 1 tablet (9 mg total) by mouth daily Cost of medication 12/28/2019 12/28/2019 documented as of this encounter Care Teams Metal Mockup Maker Relationship Specialty Start Date End Date Kirstie Jarrell MD PCP - General 08/29/17 08/06/21 documented as of this encounter
--- OUTSIDE RECORDS SUMMARY | 2024-11-11 19:14 | XMS_ITS | Encounter Summary ---
Author Organization [facility] Address [address] [place] [address] Phone Care Team Providers Care Assembler Musical Equipment Name Role Phone Kirstie Jarrell MD Primary Care Provider + Encounter Details Date Type Department Care Team (Late st Contact Info) Description 07/27/2019 Telephone [facility] Gastroenterology [facility] 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 Gender Identity Not on file Sexual Orientation Not on file documented as of this encounter Miscellaneous Notes * Telephone Encounter - Loyda Castillo MA - 07/30/2019 8:35 AM CDT Called and left a voicemail making pt aware that we will FU with him after his first stelera inj * Telephone Encounter - Paulina Jones MD - 07/30/2019 8:22 AM CDT That is fine - I did speak with he and his for quite some time on Tuesday; he will stay on MTX but increase to 25mg and start Stelara - follow up after the injection * Telephone Encounter - Rita Lama RN - 07/30/2019 7:26 AM CDT Fredis see message below- What type of ROV do you want. We are submitting for Stelara * Telephone Encounter - Loyda Castillo MA - 07/27/2019 3:27 PM CDT Spoke with patient and he didn't feel a 2 week apt is needed, he stated that AG already spoken to him regarding the new treatment plan and what his next steps would be. Patient stated that he has a few other things going to and trying to get off work is hard. ----- Message from Rita Lama RN sent at 07/27/2019 8:35 AM CDT ----- Regardin week ROV with Dr. Mcnulty after colon on 07/27/19 to dicsucorey new treatment [address] Mcnulty after colon on 07/27/19 to dicsuss colon results and new treatment documented in this encounter Plan of Treatment Upcoming Encounters Date Type Department Care Team (Late st Contact Info) Description 11/09/2024 Plan of Care Documentation [address] [address] [address] [place] [address] documented as of this encounter Visit Diagnoses Not on filedocumented in this encounter Care Teams Assembler Musical Equipment Relationship Specialty Start Date End Date Kirstie Jarrell MD PCP - General 08/29/17 08/06/21 documented as of this encounter
--- OUTSIDE RECORDS SUMMARY | 2024-11-11 19:14 | XMS_ITS | Encounter Summary ---
Author Organization [facility] Address [address] [place] [address] Phone Care Team Providers Care Casting Room Helper Name Role Phone Kirstie Jarrell MD Primary Care Provider + Encounter Details Date Type Department Care Team (Late st Contact Info) Description 11/13/2019 7:30 AM UNCLAIMED PROPERTY MANAGER Office Visit [facility] Gastroenterology [address] [facility] Medical [facility] Building [address] [place] [address] Paulina Jones MD [address] [place] [address] Crohn's disease of both small [...] on file 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:34 AM UNCLAIMED PROPERTY MANAGER Gender Identity Not on file Sexual Orientation Not on file documented as of this encounter Last Filed Vital Signs Vital Sign Reading Time Taken Comments Blood Pressure 141/91 11/13/2019 7:34 AM UNCLAIMED PROPERTY MANAGER Pulse 56 11/13/2019 7:34 AM UNCLAIMED PROPERTY MANAGER Temperature 36.5 ??C (97.7 ??F) 11/13/2019 7:34 AM CS T Respiratory Rate - - Oxygen Saturation - - Inhaled Oxygen Concentration - - Weight 117.9 kg (260 lb) 11/13/2019 7:34 AM UNCLAIMED PROPERTY MANAGER Height 190.5 cm (6' 3 ) 11/13/2019 7:34 AM UNCLAIMED PROPERTY MANAGER Body Mass Index 32.5 11/13/2019 7:34 AM UNCLAIMED PROPERTY MANAGER documented in this encounter Patient Instructions * Patient Instructions* Rita Lama RN - 11/13/2019 7:30 AM UNCLAIMED PROPERTY MANAGER Follow up in 01/2020 (flex sig in office) Labs due in 12/2019 with Stelara Drug level at [facility]- orders to patient (due no earlier than 7 days PRIOR to next Stelara injection, can be done same day as injection as long as it is before) AIMED PROPERTY MANAGER AIMED PROPERTY MANAGER documented in this encounter Progress Notes * Paulina Jones MD - 11/13/2019 12:00 AM CST PATIENT NAME: DANTE PERALTA : 1980 DIMITRIS: 11/13/2019 REASON FOR VISIT: Follow-up on active ileocolonic Crohn's disease, status post a recent colonoscopy in July 2019at demonstrated active ileal disease with an ileocolonic anastomotic stricture as well as active proctitis; the patient at that time was maintained on 15 mg of methotrexate every week as well as Entyvio, and we stopped the Entyvio, started him on Stelara, and increased his methotrexate to 25 mg weekly. CURRENT MEDICATIONS: 1. Uceris foam p.r.n. 2. Vitamin D 50,000 units once a month. 3. Folic acid 1 mg daily. 4. Methotrexate 2.5 mg tablets, 10 tablets once a week. 5. Stelara every 8 weeks (status post his first 8-week dose in mid October). PROBLEM LIST: 1. Ileocolonic and perianal Crohn's disease, diagnosed in 2006, with a presentation of hematocheziaand a perianal fistula with abscess. The patient was previously treated with Humira, Cimzia, Remicade, methotrexate, 6-MP, and most recently a combination of Entyvio with methotrexate, with a colonoscopy demonstrating some mild proctitis in 2018 and a stricture at IC valve; at that time, the patient was recommended to undergo surgery, given that he had this very tight IC valve stricture and was having intermittent obstructions, but the decision was made to try a new medicine. The most recent colonoscopy, done in July 2019, demonstrated again active disease at his ileocecal valve but he also has active ileal disease and active proctitis. As a result, he was started on Stelara and Entyvio was stopped. 2. History of gout flares while on allopurinol. HISTORY OF PRESENT ILLNESS: Dante is a gabby 38-year-old gentleman with a past medical history of ileocolonic and perianal Crohn's disease, who presents today for follow-up. Overall, he states that he feels well since starting the Stelara, for which he has received his first infusion as well as one injection. The patient reports that around the holidays it is always tough, because he eats so poorly and he feels that between the stress of work and poor food choices, he will have some episodes of diarrhea. He states overall though he thinks that he is doing as well as he was with Entyvio and maybe slightly better. The patient reports that he is still occasionally seeing blood that he attributes to straining. He has no joint pains. No nausea, no vomiting, and no abdominal pain. He has had no episodes of obstruction. PHYSICAL EXAMINATION: VITAL SIGNS: His height is 6 feet 3 inches, weight of 260, blood pressure 141/91, temperature of 97.7, pulse of 56. GENERAL: He is a well-appearing white male, in no apparent distress. HEENT: Oropharynx is clear with no submandibular or supraclavicular lymphadenopathy. CARDIOVASCULAR: He has a normal S1, S2. Regular rate and rhythm. PULMONARY: Clear to auscultation. ABDOMEN: Soft, nontender, nondistended, with good bowel sounds. ASSESSMENT: Dante is a gabby 38-year-old gentleman with a past medical history of ileocolonic and perianal Crohn's disease, who most recently had a colonoscopy demonstrating active disease in his ileum, and his IC valve, and in his rectum, who was subsequently started on Stelara, and his dose of methotrexate was increased. At this point, I told the patient that I would like to wait for at least one more injection of Stelara before we evaluate his disease. I have given him the option of using fecal calprotectin, which Isuspect would be elevated given that he has ileocolonic disease, or alternately just a flexible sigmoidoscopy in the clinic to evaluate his rectum, with hope that this will also reflect his ileum. The patient is in agreement with this plan and will get his next dose of Stelara in mid December. We will plan on checking his Stelara levels prior to that dosing. The patient will also undergo a flex sig in the clinic in January. I have told the patient that he can still continue to use Uceris as needed, but it sounds like he is only using it intermittently. The patient otherwise was given ample opportunity to ask any questions, and his questions were answered. ELECTRONICALLY SIGNED - 11/14/2019 07:35 AM Paulina Jones MD, MPH Balance Clerk, Medicine Division of Gastroenterology AG/bety AIMED PROPERTY MANAGER documented in this encounter Miscellaneous Notes * Result Encounter Note - Paulina Jones MD - 01/06/2020 8:31 PM CST JERALD virus positive Increase stelara to Q4 weeks AIMED PROPERTY MANAGER documented in this encounter Plan of Treatment Upcoming Encounters Date Type Department Care Team (Late st Contact Info) Description 11/09/2024 Plan of Care Documentation [address] [address] [address] [place] [address] Scheduled Orders Name Type Priority Associated Diagnoses Orde r Schedule Test code [id number] - Miscellaneous Test Lab Routine Crohn's disease of both small and large intestine with intestinal obstruction (CMS/HCC) High risk medications (not anticoagulants) long-term use Expected: 12/08/2019 (Approximate), Expires: 11/13/2020 documented as of this encounter Procedures Procedure Name Priority Date/Time Associated Diagnosis Comments USTEKINUMAB AND ANTI-USTEK AB Routine 12/28/2019 11:23 AM UNCLAIMED PROPERTY MANAGER STRATIFY JCV(TM) AB W/INDEX Routine 12/28/2019 11:23 AM UNCLAIMED PROPERTY MANAGER CBC WITH AUTO DIFFERENTIAL Routine 12/28/2019 11:23 AM UNCLAIMED PROPERTY MANAGER Crohn's disease of both small and large intestine with intestinal obstruction (CMS/HCC) High risk medications (not anticoagulants) long-term use HEPATIC FUNCTION PANEL Routine 12/28/2019 11:23 AM UNCLAIMED PROPERTY MANAGER Crohn's disease of both small and large intestine with intestinal obstruction (CMS/HCC) High risk medications (not anticoagulants) long-term use documented in this encounter Results * Ustekinumab and Anti-Ustek Ab (12/28/2019 11:23 AM UNCLAIMED PROPERTY MANAGER) Ustekinumab 0.8 ug/mL [facility] Comment: Quantitation Limit: <0.1 ug/mL Results of 0.1 ug/mL or higher indicate detection of ustekinumab. COMMENTS: ?? - Induction levels in Crohn's Disease: ?? - Patients who received IV 130 mg or 6 mg/kg had median ? trough concentrations of 2.1 ug/mL and 6.4 ug/mL, ? respectively, at week 8 in UNITI trials.(1) - Maintenance levels: ?? - Of UNITI patients with trough levels greater than 1.1 ? ug/mL, about 80% achieved clinical remission (HBI < 5) ? and about 50% attained CRP normalization.(2) ?? - Higher maintenance concentrations, greater than 4.5 ? ug/mL (achieved with q8wk or q4wk dosing after SQ ? induction), may be necessary for endoscopic response ? (SES-CD score reduction >=50%).(3) ?? - Trough levels predictive of mucosal healing and fistula ? healing have yet to be determined. - In plaque psoriasis, median trough ustekinumab ??concentrations were 0.4 ug/mL at weeks 14 and 28 (ranging ??from undetectable to 3.6 ug/mL).(4) Although PASI50 ??responders had higher trough concentrations than non- ??responders in a study of 76 patients, a definitive ??therapeutic target range for psoriasis has yet to be ??established.(5) - As with other biologics, the optimal drug concentration ??depends upon patient-specific factors including co- ??morbidities, disease and desired therapeutic endpoint - This ustekinumab drug assay measures the free fraction of ??ustekinumab (antibody-unbound ustekinumab) when serum ??anti-ustekinumab antibodies are present. Anti-Ustekinumab Antibody <40 ng/mL [facility] Comment: Quantitation Limit: < 40 ng/mL Results of 40 ng/mL or higher indicate detection of anti- ustekinumab antibodies. COMMENTS: - This anti-ustekinumab antibody assay is drug-tolerant, ??i.e. the detection of anti-ustekinumab antibodies is not ??impeded by the presence of ustekinumab in serum. - All positive anti-ustekinumab antibody results are ??verified by a confirmatory test. - The concomitant free ustekinumab drug concentration ??(reported above) is the pharmacodynamically active drug ??when anti-ustekinumab antibodies are present. - Serial measurements over time may be helpful to assess the ??impact of immunogenicity on the free drug level. - In the IM-UNITI trial, the incidence of anti-ustekinumab ??antibodies in Crohn's Disease at 1 year was 2.3%.(1) - In psoriasis, anti-ustekinumab antibodies occurred in 4-6% ??of patients.(6) References: 1. Leydi MATA, et al. Gastroenterology 2016;150(4):S408. 2. Leydi Vera et al. P007 Exposure-Response to SC ?? Ustekinumab in Moderate - Severe Crohn's Disease: Results ?? from the IM-UNITI Maintenance Study. Advances in AIBD. ?? August 2017. 3. Kendy Haji et al. Clin Gastroenterol Hepatol 2017;15: ?? 2591-2807. 4. Francis GANT et al. Br J Dermatol;2015:173;855-857. 5. Beto H, et al. PLOS ONE DOI;10:1371/journal.pone.1479111. 6. florida Sadler al. Br J Dermatol 2014;170:261-273. These tests were developed and their performance characteristics determined by [facility]. They have not been cleared or approved by the Food and Drug Administration. However, both drug and anti-drug antibody assays have been developed and validated in accordance with FDA Guidance for Industry documents: Bioanalytical Method Validation (2013) and Assay Development and Validation for Immunogenicity Testing of Therapeutic Protein Products (2016). 12/28/2019 11:2 3 AM UNCLAIMED PROPERTY MANAGER 12/28/2019 Narrative [facility] - 01/05/2020 7:07 PM UNCLAIMED PROPERTY MANAGER Performed at: ??03 - [facility] [address] [place] [address] ??[id number] Knurling Machine Tender: Nicolas Hewitt MD, Phone: ??[phone] us Paulina Jones MD LAB BLOOD ORDERABLE S Final Result [facility] 03 * (ABNORMAL) Stratify JCV(TM) Ab w/Index (12/28/2019 11:23 AM UNCLAIMED PROPERTY MANAGER) Pathologist [facility] Index Value 2.15 [facility] 02 JCV Antibody Positive(A) [facility] Comment: Index interpretive criteria: ? <0.20 negative ? 0.20-0.40 indeterminate ? >0.40 positive Interpretation Comment [facility] 02 Comment: Negative: Antibodies to JCV not detected. Indeterminate: Low level reactivity detected, see Inhibition ? Assay result to follow for the final antibody ? result. Positive: Antibodies to JERALD virus (JCV) detected indicating ?the patient has been exposed to JCV at an ?undetermined time. The STRATIFY JCV Antibody Test is an enzyme-linked immunosorbent assay (DOMINGO) designed to detect JCV antibodies to help identify individuals who have been exposed to the virus. Samples with low level reactivity in the detection assay are retested in a confirmation (inhibition) assay to confirm presence or absence of JCV-specific antibodies. Retrospective analyses of post marketing data from various sources, including observational studies and spontaneous reports obtained worldwide, suggest that the risk of developing PML may be associated with relative levels of serum anti-JCV antibody as measured by anti-JCV antibody index.1 ?. 1TYSABRI (natalizumab) Prescribing Information. JCV Antibody Interpretation Comment [facility] 02 Comment: Positive: Antibodies to JERALD virus (JCV) detected ?indicating the patient has been exposed ?to JCV at an undetermined time Negative: Antibodies to JCV not detected 12/28/2019 11:2 3 AM UNCLAIMED PROPERTY MANAGER 12/28/2019 Narrative [facility] - 01/05/2020 7:07 PM UNCLAIMED PROPERTY MANAGER Performed at: ??02 - [facility] [address] [address] [place] ??[id number] Knurling Machine Tender: Luis Carlos Willson MD, Phone: ??[phone] us Paulina Jones MD LAB BLOOD ORDERABLE S Final Result [facility] 02 * (ABNORMAL) Hepatic function panel (12/28/2019 11:23 AM UNCLAIMED PROPERTY MANAGER) Protein, sr 6.9 6.0 - 8.5 g/dL [facility] - 01 Albumin 4.5 4.0 - 5.0 g/dL [facility] - 01 Comment:Please note refere nce interval change Bilirubin, Total 1.0 0.0 - 1.2 mg/dL [facility] - 01 Bilirubin, direct 0.22 0.00 - 0.40 mg/dL [facility] - 01 Alk phos 63 39 - 117 IU/L [facility] - 01 AST 42(H) 0 - 40 IU/L [facility] - 01 ALT 63(H) 0 - 44 IU/L [facility] - 01 Blood specimen (specimen) 12/28/2019 11:23 AM UNCLAIMED PROPERTY MANAGER 12/28/2019 Narrative [facility] - 01/05/2020 7:07 PM UNCLAIMED PROPERTY MANAGER Performed at: ??01 - [facility] [address] ??[id number] Knurling Machine Tender: Gentry Dewey PhD, Phone: ??[phone] us Paulina Jones MD LAB BLOOD ORDERABLE S Final Result [facility] - 01 * CBC with auto differential (12/28/2019 11:23 AM UNCLAIMED PROPERTY MANAGER) WBC 6.7 3.4 - 10.8 x10E3/uL [facility] - 01 RBC 4.54 4.14 - 5.80 x10E6/uL [facility] - 01 Hgb 14.1 13.0 - 17.7 g/dL [facility] - 01 Hct 43.1 37.5 - 51.0 % [facility] - 01 MCV 95 79 - 97 fL [facility] - 01 MCH 31.1 26.6 - 33.0 pg [facility] - 01 MCHC 32.7 31.5 - 35.7 g/dL [facility] - 01 Rdw 12.9 11.6 - 15.4 % [facility] - 01 Platelets 254 150 - 450 x10E3/uL [facility] - 01 Neutrophils pct 72 Not Estab. % [facility] - 01 Lymphs pct 21 Not Estab. % [facility] - 01 Monocytes pct 5 Not Estab. % [facility] - 01 Eosinophils pct 1 Not Estab. % [facility] - 01 Basophil pct 1 Not Estab. % [facility] - 01 Neutrophil abs 4.8 1.4 - 7.0 x10E3/uL [facility] - 01 Lymphs (Absolute) 1.4 0.7 - 3.1 x10E3/uL [facility] - 01 Monocyte abs 0.4 0.1 - 0.9 x10E3/uL [facility] - 01 Eosinophils, abs 0.1 0.0 - 0.4 x10E3/uL [facility] - 01 Basophils, abs 0.0 0.0 - 0.2 x10E3/uL [facility] - 01 Immature Granulocytes 0 Not Estab. % [facility] - 01 Immature Grans (Abs) 0.0 0.0 - 0.1 x10E3/uL [facility] - 01 Blood specimen (specimen) 12/28/2019 11:23 AM UNCLAIMED PROPERTY MANAGER 12/28/2019 Narrative [facility] - 01/05/2020 7:07 PM UNCLAIMED PROPERTY MANAGER Performed at: ??01 - [facility] [address] ??[id number] Knurling Machine Tender: Gentry Dewey PhD, Phone: ??[phone] Paulina Jones MD LAB BLOOD ORDERABLE S Final Result [facility] - 01 documented in this encounter Visit Diagnoses Diagnosis Crohn's disease of both small and large intestine with intestinal obstruction (HCC)- Primary High risk medications (not anticoagulants) long-term use Encounter for long-term (current) use of other medications documented in this encounter Care Teams Casting Room Helper Relationship Specialty Start Date End Date Kirstie Jarrell MD PCP - General 08/29/17 08/06/21 documented as of this encounter
--- OUTSIDE RECORDS SUMMARY | 2024-11-11 19:14 | XMS_ITS | Encounter Summary ---
Author Organization [facility] Address [address] [place] [address] Phone Care Team Providers Care Die Maker Trim Name Role Phone Kirstie Jarrell MD Primary Care Provider + Encounter Details Date Type Department Care Team (Late st Contact Info) Description 07/27/2019 Documentation [facility] Gastroenterology [facility] 8[address] [place] [address] [place] [address] Loyda Castillo MA Social History Tobacco Use Types Packs/Day Years Used Date Smoking Tobacco: Former Cigarettes Q uit: 2005 Smokeless Tobacco: Never Alcohol Use Standard Drinks/Week Comments Yes 0 (1 standard drink = 0.6 oz pur e alcohol) occasional Sex and Gender Information Value Date Recorded Sex Assigned at Not on file 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:34 AM PRINTER'S DEVIL Gender Identity Not on file Sexual Orientation Not on file documented as of this encounter Progress Notes * Loyda Castillo MA - 07/27/2019 9:22 AM CDT Need apt in 2 weeks on a . Call later to set up apt documented in this encounter Plan of Treatment Upcoming Encounters Date Type Department Care Team (Late st Contact Info) Description 11/09/2024 Plan of Care Documentation [address] [address] [address] [place] [address] documented as of this encounter Visit Diagnoses Not on filedocumented in this encounter Care Teams Die Maker Trim Relationship Specialty Start Date End Date Kirstie Jarrell MD PCP - General 08/29/17 08/06/21 documented as of this encounter
--- OUTSIDE RECORDS SUMMARY | 2024-11-11 19:14 | XMS_ITS | Encounter Summary ---
Author Organization Formerly [facility] Address [address] [place] [address] Care Team Providers Care Corporate Real Estate Specialist Name Role Phone Kirstie Jarrell MD Primary Care Provider + Reason for Referral * Diagnostic Imaging (Routine) - Closed Specialty Diagnoses / Procedures Referred By Med bazan Referred To Contact Radiology Diagnoses Crohn's disease of both small and large intestine with intestinal obstruction (HCC) High risk medications (not anticoagulants) long-term use Abdominal pain, unspecified abdominal location Bloating Diarrhea, unspecified type Blood in stool Procedures MRI Abdomen Enterography W WO Contrast Paulina Jones MD [address] [place] [address] Phone: tel: fax: [address] [phone] Referral ID Status Reason Start Date Expiration Date Visits Re quested Visits Authorized [id number] Closed 12/04/2019 06/14/2021 1 1 GENCY DEPARTMENT Reason for Visit * Diagnostic Imaging (Routine) - Closed Specialty Diagnoses / Procedures Referred By Med bazan Referred To Contact Radiology Diagnoses Crohn's disease of both small and large intestine with intestinal obstruction (HCC) High risk medications (not anticoagulants) long-term use Abdominal pain, unspecified abdominal location Bloating Diarrhea, unspecified type Blood in stool Procedures MRI Abdomen Enterography W WO Contrast Paulina Jones MD [address] [place] [address] Phone: tel: fax: [facility] NIK [place]ender [phone] Referral ID Status Reason Start Date Expiration Date Visits Re quested Visits Authorized [id number] Closed 12/04/2019 06/14/2021 1 1 Encounter Details Date Type Department Care Team (Late st Contact Info) Description 01/07/2020 12:34 PM EMERGENCY DEPARTMENT - 01/07/2020 11:59 PM EMERGENCY DEPARTMENT Hospital Encounter Imaging [id number] [place] [address] Paulina Jones MD [address] [place] [address] Crohn's disease of both small and large intestine with intestinal obstruction (CMS/HCC); High risk medications (not anticoagulants) long-term use; Abdominal pain, unspecified abdominal location; Bloating; Diarrhea, unspecified type; Blood in stool Discharge Disposition: Discharge to home or self care Social History Tobacco Use Types Packs/Day Years Used Date Smoking Tobacco: Former Cigarettes Q uit: 2005 Smokeless Tobacco: Never Alcohol Use Standard Drinks/Week Comments Yes 0 (1 standard drink = 0.6 oz pur e alcohol) occasional Sex and Gender Information Value Date Recorded Sex Assigned at Not on file 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:34 AM EMERGENCY DEPARTMENT Gender Identity Not on file Sexual Orientation Not on file documented as of this encounter Medications at Time of Discharge budesonide (UCERIS) 2 mg/actuation foamIndications:Cr ohn's disease of both small and large intestine with intestinal obstruction (HCC) Insert into the rectum 1 metered dose(2 mg) twice daily for 2 weeks 1 Can 1 07/27/2019 0 ergocalciferol (VITAMIN D) 50,000 unit capsuleIndications :Low vitamin D level Take 1 cap PO monthly 12 capsule 05/17/2019 0 folic acid (FOLVITE) 1 mg tabletIndications: Crohn's disease of both small and large intestine without complication (CMS/HCC) (HCC) Take 1 tablet (1 mg total) by mouth daily 90 tablet 3 11/05/2019 1 hydrocortisone-pra moxine (PROCTOFOAM-HC) rectal foamIndications:Pr uritus Ani [The details of the medication are not available because there are pending changes by a home health clinician.] 10 g 1 12/28/2019 3 methotrexate 2.5 mg tabletIndications: Inflammatory Bowel Disease Take 10 tabs PO one day per week SAFETY LABS REQUIRED EVERY 3 MONTHS FOR REFILLS DUE 10/2019 40 tablet 2 07/27/2019 0 neomycin-polymyxin -dexamethasone (MAXITROL) 3.5mg/mL-10,000 unit/mL-0.1 % ophthalmic suspension INSTILL 1 GTT TO OS BID 0 09/01/2018 1 predniSONE (DELTASONE) 20 mg tabletIndications: Crohn's disease of both small and large intestine with intestinal obstruction (HCC) Take 1 tab(20 mg)) every morning with food for 21 days by mouth as directed 21 tablet 12/28/2019 0 ustekinumab (STELARA) injectionIndicatio ns:Crohn's disease of both small and large intestine with intestinal obstruction (HCC) Inject 90 mg SQ every 4 weeks-SAFETY LABS REQUIRED EVERY 3 MONTHS FOR REFILLS DUE 03/2020 1 mL 11 01/07/2020 0 documented as of this encounter Discharge Disposition Disposition Code Departure Means Destination Discharge to home or self care documented in this encounter Miscellaneous Notes * Result Encounter Note - Paulina Jones MD - 01/07/2020 11:59 PM CST I spoke to the patient regarding the results - waiting to get stelara [id number] approved, taking MTX 25mg/wk (needs refill), taking zahira supp GENCY DEPARTMENT documented in this encounter Plan of Treatment Upcoming Encounters Date Type Department Care Team (Late st Contact Info) Description 11/09/2024 Plan of Care Documentation [address] [address] [address] [place] [address] documented as of this encounter Procedures Procedure Name Priority Date/Time Associated Diagnosis Comments MRI ABDOMENT ENTEROGRAPHY W WO CONTRAST Schedule Routine, Read Routine (OP Routine) 01/07/2020 3:09 PM EMERGENCY DEPARTMENT Crohn's disease of both small and large intestine with intestinal obstruction (CMS/HCC) High risk medications (not anticoagulants) long-term use Abdominal pain, unspecified abdominal location Bloating Diarrhea, unspecified type Blood in stool POC ISTAT Routine 01/07/2020 2:11 PM EMERGENCY DEPARTMENT documented in this encounter Results * MRI Abdomen Enterography W WO Contrast (01/07/2020 3:09 PM EMERGENCY DEPARTMENT) Anatomical Region Laterality Modality Body N/A Magnetic Resonan ce 01/07/2020 4:21 PM EMERGENCY DEPARTMENT Impressions 01/08/2020 2:08 PM EMERGENCY DEPARTMENT 1. Mild acute on chronic inflammation involving the terminal ileum and rectum. Short segment stricturing involving the distal small bowel and terminal ileum without evidence of bowel obstruction. No evidence of penetrating disease. Dictated by: Verónica Pate M.D. The radiology attending physician has personally reviewed this study, and had reviewed and/or edited this written report and agrees with it. Electronically signed by: Marga Lemus M.D. Narrative 01/08/2020 2:08 PM EMERGENCY DEPARTMENT EXAMINATION: MAGNETIC RESONANCE IMAGING OF THE ABDOMEN WITH AND WITHOUT CONTRAST HISTORY: 39-year-old man with Crohn's disease and abdominal pain, diarrhea and bloating. TECHNIQUE: Magnetic resonance imaging of the abdomen was performed prior to and following the uneventful administration of intravenous Gadolinium contrast. Oral Volumen and 1 mg of intravenous glucagon was administered prior to the examination. Protocol: MR Enterography Contrast: Dotarem 20 mL COMPARISON: 03/31/2018 FINDINGS: Bowel: There is evidence of chronic inflammatory bowel disease involving the distal small bowel and terminal ileum with areas of mild bowel wall thickening and short segment stricturing in a skip distribution. The distal 3 cm of the terminal ileum is narrowed but also demonstrates evidence of mild active inflammation including mucosal hyperenhancement and mild diffusion restriction. The rectum also demonstrates evidence of chronic inflammatory bowel disease with superimposed active inflammation, including mucosal hyperenhancement and mild diffusion restriction. There is no evidence of penetrating disease. No evidence of bowel obstruction. Liver/Bile Ducts: Mild diffuse hepatic steatosis. ??No intrahepatic or extrahepatic biliary ductal dilatation. Gallbladder: Normal Pancreas: There is pancreatic divisum. Spleen: Spleen is enlarged measuring up to 14 cm. Adrenals: Normal Kidneys: Normal. ??No hydronephrosis. Bladder: Normal Reproductive organs: Prostate is normal. Other Findings: Multiple prominent mesenteric lymph nodes are noted in the right lower quadrant, which may be reactive. Procedure Note Marga Lemus MD - 01/08/2020 EXAMINATION: MAGNETIC RESONANCE IMAGING OF THE ABDOMEN WITH AND WITHOUT CONTRAST HISTORY: 39-year-old man with Crohn's disease and abdominal pain, diarrhea and bloating. TECHNIQUE: Magnetic resonance imaging of the abdomen was performed prior to and following the uneventful administration of intravenous Gadolinium contrast. Oral Volumen and 1 mg of intravenous glucagon was administered prior to the examination. Protocol: MR Enterography Contrast: Dotarem 20 mL COMPARISON: 03/31/2018 FINDINGS: Bowel: There is evidence of chronic inflammatory bowel disease involving the distal small bowel and terminal ileum with areas of mild bowel wall thickening and short segment stricturing in a skip distribution. The distal 3 cm of the terminal ileum is narrowed but also demonstrates evidence of mild active inflammation including mucosal hyperenhancement and mild diffusion restriction. The rectum also demonstrates evidence of chronic inflammatory bowel disease with superimposed active inflammation, including mucosal hyperenhancement and mild diffusion restriction. There is no evidence of penetrating disease. No evidence of bowel obstruction. Liver/Bile Ducts: Mild diffuse hepatic steatosis. No intrahepatic or extrahepatic biliary ductal dilatation. Gallbladder: Normal Pancreas: There is pancreatic divisum. Spleen: Spleen is enlarged measuring up to 14 cm. Adrenals: Normal Kidneys: Normal. No hydronephrosis. Bladder: Normal Reproductive organs: Prostate is normal. Other Findings: Multiple prominent mesenteric lymph nodes are noted in the right lower quadrant, which may be reactive. IMPRESSION: 1. Mild acute on chronic inflammation involving the terminal ileum and rectum. Short segment stricturing involving the distal small bowel and terminal ileum without evidence of bowel obstruction. No evidence of penetrating disease. Dictated by: Verónica Pate M.D. The radiology attending physician has personally reviewed this study, and had reviewed and/or edited this written report and agrees with it. Electronically signed by: Marga Lemus M.D. Paulina Jones MD IMG MRI PROCEDURES Final Result * POC ISTAT (01/07/2020 2:11 PM EMERGENCY DEPARTMENT) Creatinine, POC, bld 1.0 0.6 - 1.3 mg/dL [facility]DO GO Comment: Interpretive data Creatinine <1.5 mg/dL and stable receive IV contrast. Creatinine 1.5-1.9 mg/dL and stable use Visipaque IV contrast. Current interpretive data last reviewed 2015. POC Device Number [id number] [facility] GO POC Performer [id number] ALDO GO Blood specimen (specimen) 01/07/2020 2:11 PM EMERGENCY DEPARTMENT 01/07/2020 2:11 PM EMERGENCY DEPARTMENT Paulina Jones MD LAB BLOOD ORDERABLE S Final Result [facility] [id number] [facility]. Department [place] [address] documented in this encounter Visit Diagnoses Diagnosis Crohn's disease of both small and large intestine with intestinal obstruction (HCC) High risk medications (not anticoagulants) long-term use Encounter for long-term (current) use of other medications Abdominal pain, unspecified abdominal location Bloating Flatulence, eructation, and gas pain Diarrhea, unspecified type Blood in stool documented in this encounter Administered Medications Inactive Administered Medications - up to 3 most recent administrations Medication Order MAR Action Action Date Dose Rate Site gadoterate meglumine (DOTAREM) 0.5 mmol/mL injection 23.58 mL 23.58 mL (0.1 mmol/kg ? 117.9 kg), intravenous, Once in imaging, contrast, Starting on Tue01/07/20 at 1426, For 1 dose, Imaging Protocol Orders Given 01/07/2020 2:26 PM EMERGENCY DEPARTMENT 20 mL sodium chloride 0.9% flush 125 mL 125 mL, intravenous, As needed, line care, Starting on 01/07/20 at 1426 Given 01/07/2020 2:27 PM EMERGENCY DEPARTMENT 125 mL documented in this encounter Orders Medications Ordered That Steven ht Not Have Been Administered Count Last Ordered Date First Ordered Date glucagon injection 1 mg 1 01/07/2020 documented in this encounter Care Teams Corporate Real Estate Specialist Relationship Specialty Start Date End Date Kirstie Jarrell MD PCP - General 08/29/17 08/06/21 documented as of this encounter
--- OUTSIDE RECORDS SUMMARY | 2024-11-11 19:14 | XMS_ITS | Encounter Summary ---
Author Organization [facility] Address [address] [place] [address] Phone Care Team Providers Care Development Eng Name Role Phone Kirstie Jarrell MD Primary Care Provider + Encounter Details Date Type Department Care Team (Late st Contact Info) Description 03/13/2020 Telephone [facility] Gastroenterology [address] [place] [address] Medical Office Building [address] [place] [address] Chandler Pike, [facility] Social History Tobacco Use Types Packs/Day Years Used Date Smoking Tobacco: Former Cigarettes Q uit: 2004 Smokeless Tobacco: Never Alcohol Use Standard Drinks/Week Comments Yes 0 (1 standard drink = 0.6 oz pur e alcohol) occasional Sex and Gender Information Value Date Recorded Sex Assigned at Not on file 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 Pt is aware I willsend him a FOLUPt message on Monday 03/19 on instructions with how to complete the echeck-in. documented in this encounter Plan of Treatment Upcoming Encounters Date Type Department Care Team (Late st Contact Info) Description 11/09/2024 Plan of Care Documentation [facility] - [address] [place] [address] documented as of this encounter Visit Diagnoses Not on filedocumented in this encounter Care Teams Development Eng Relationship Specialty Start Date End Date Kirstie Jarrell MD PCP - General 08/29/17 08/06/21 documented as of this encounter
--- OUTSIDE RECORDS SUMMARY | 2024-11-11 19:14 | XMS_ITS | Encounter Summary ---
Author Organization [facility] Address [address] [place] [address] Phone Care Team Providers Care Welder Experimental Name Role Phone Kirstie Jarrell MD Primary Care Provider + Encounter Details Date Type Department Care Team (Late st Contact Info) Description 07/23/2020 Orders Only [facility] Gastroenterology [address] 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 Gender Identity Not on file Sexual Orientation Not on file documented as of this encounter Ordered Prescriptions Prescription Sig Dispense Quantity Refills Last Filled Start Date End Date ergocalciferol (VITAMIN D) 50,000 unit capsuleIndications :Low vitamin D level Take 1 cap PO monthly 12 capsule 07/23/2020 2 documented in this encounter Plan of Treatment Upcoming Encounters Date Type Department Care Team (Late st Contact Info) Description 11/09/2024 Plan of Care Documentation [address] [address] [address] [place] [address] documented as of this encounter Visit Diagnoses Diagnosis Low vitamin D level documented in this encounter Discontinued Medications Medication Sig Discontinue Reason Start Date End Da te ergocalciferol (VITAMIN D) 50,000 unit capsuleIndications:Low vitamin D level Take 1 cap PO monthly Reorder 05/17/2019 07/23/2020 documented as of this encounter Care Teams Welder Experimental Relationship Specialty Start Date End Date Kirstie Jarrell MD PCP - General 08/29/17 08/06/21 documented as of this encounter
--- OUTSIDE RECORDS SUMMARY | 2024-11-11 19:14 | XMS_ITS | Encounter Summary ---
Author Organization [facility] Address [address] [place] [address] Phone Care Team Providers Care Print Graphic Designer Name Role Phone Kirstie Jarrell MD Primary Care Provider + Encounter Details Date Type Department Care Team (Late st Contact Info) Description 12/28/2019 Orders Only [facility] Gastroenterology [address] [facility] 8th [place] [address] [place] [address] Rita Lama, SANDRA Crohn's disease of both [...] on file 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:34 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 Gender Identity Not on file Sexual Orientation Not on file documented as of this encounter Ordered Prescriptions Prescription Sig Dispense Quantity Refills Last Filled Start Date End Date hydrocortisone-pra moxine (PROCTOFOAM-HC) rectal foamIndications:Pr uritus Ani [The details of the medication are not available because there are pending changes by a home health clinician.] 10 g 1 12/28/2019 3 documented in this encounter Plan of Treatment Upcoming Encounters Date Type Department Care Team (Late st Contact Info) Description 11/09/2024 [facility] [address] [place] [address] documented as of this encounter Visit Diagnoses Diagnosis Crohn's disease of both small and large intestine with intestinal obstruction (HCC)- Primary documented in this encounter Care Teams Print Graphic Designer Relationship Specialty Start Date End Date Kirstie Jarrell MD PCP - General 08/29/17 08/06/21 documented as of this encounter
--- OUTSIDE RECORDS SUMMARY | 2024-11-11 19:14 | XMS_ITS | Encounter Summary ---
Author Organization [facility] Address [address] [facility] [address] [place] [address] Phone Care Team Providers Care Turkey Boner Name Role Phone Kirstie Jarrell MD Primary Care Provider + Encounter Details Date Type Department Care Team (Late st Contact Info) Description 04/23/2020 Telephone [facility] Gastroenterology 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 Gender Identity Not on file Sexual Orientation Not on file documented as of this encounter Miscellaneous Notes * Telephone Encounter - Loyda Castillo MA - 04/23/2020 9:06 AM CDT I???ve called the patient twice and LMOR to get patient scheduled [facility] Jones Office Division of Gastroenterology [address] [place] [address] [address] [place], [place] [id number] (Office) From: Rita Lama <[email or web address]> Sent: Wednesday, April 22, 2020 1:25 PM To: Loyda Castillo <[email or web address]> Subject: Ranjit Peralta Importance: High Ranjit Peralta 39 year old male 1980 Per Ag please call and get patient scheduled for TeleHealth visit next Tuesday04/29/2020 at 8am to go over/discuss new treatment plan documented in this encounter Plan of Treatment Upcoming Encounters Date Type Department Care Team (Late st Contact Info) Description 11/09/2024 Plan of Care Documentation [address] [address] [address] [place] [address] documented as of this encounter Visit Diagnoses Not on filedocumented in this encounter Care Teams Turkey Boner Relationship Specialty Start Date End Date Kirstie Jarrell MD PCP - General 08/29/17 08/06/21 documented as of this encounter
--- OUTSIDE RECORDS SUMMARY | 2024-11-11 19:14 | XMS_ITS | Encounter Summary ---
Author Organization [facility] Address [address] [place] [address] Phone Care Team Providers Care Delivery Room Supervisor Name Role Phone Kirstie Jarrell MD Primary Care Provider + Kirstie Jarrell MD Primary Care Provider + Emmanuel Wesley DO Primary Care Provider [phone] Encounter Details Date Type Department Care Team (Late st Contact Info) Description 07/27/2019 Orders Only [facility] Scanning, Provider Social History Tobacco Use Types Packs/Day Years Used Date Smoking Tobacco: Former Cigarettes Q uit: 2005 Smokeless Tobacco: Never Alcohol Use Standard Drinks/Week Comments Yes 0 (1 standard drink = 0.6 oz pur e alcohol) occasional Sex and Gender Information Value Date Recorded Sex Assigned at Not on file 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 Gender Identity Not on file Sexual Orientation Not on file documented as of this encounter Plan of Treatment Upcoming Encounters Date Type Department Care Team (Late st Contact Info) Description 11/09/2024 Plan of Care Documentation [address] [address] [address] [place] [address] documented as of this encounter Procedures Procedure Name Priority Date/Time Associated Diagnosis Comments GI - RESULT 07/27/2019 documented in this encounter Results * GI - RESULT (07/27/2019) Anatomical Region Laterality Modality Other us Provider Scanning Final Result documented in this encounter Visit Diagnoses Not on filedocumented in this encounter Care Teams Delivery Room Supervisor Relationship Specialty Start Date End Date Kirstie Jarrell MD PCP - General 08/29/17 08/06/21 Kirstie Jarrell MD [address] [place], [place] [id number] PCP - General 08/07/21 12/10/21 Emmanuel Wesley DO [address] [place], [place] [id number] PCP - General Internal Medicine 12/11/21 documented as of this encounter
--- OUTSIDE RECORDS SUMMARY | 2024-11-11 19:14 | XMS_ITS | Encounter Summary ---
Author Organization [facility] Address [address] [place] [address] Phone Care Team Providers Care Gang Boss Name Role Phone Kirstie Jarrell MD Primary Care Provider + Encounter Details Date Type Department Care Team (Late st Contact Info) Description 06/09/2020 Telephone [facility] Gastroenterology [facility] 8th [place] [address] [place] [address] Paulina Jones MD [address] [place] [address] Social History Tobacco Use Types Packs/Day Years Used Date Smoking Tobacco: Former Cigarettes Q uit: 2005 Smokeless Tobacco: Never Alcohol Use Standard Drinks/Week Comments Yes 0 (1 standard drink = 0.6 oz pur e alcohol) occasional Sex and Gender Information Value Date Recorded Sex Assigned at Not on file 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 the dose was on the scripts that was sent. * Telephone Encounter - Loyda Castillo MA - 06/09/2020 10:36 AM CDT Varun called in stated a new order is needed for Xeljanz stated the dosage wasn't on the order Phone for questions [phone] documented in this encounter Plan of Treatment Upcoming Encounters Date Type Department Care Team (Late st Contact Info) Description 11/09/2024 Plan of Care Documentation [address] [address] [address] [place] [address] documented as of this encounter Visit Diagnoses Not on filedocumented in this encounter Care Teams Gang Boss Relationship Specialty Start Date End Date Kirstie Jarrell MD PCP - General 08/29/17 08/06/21 documented as of this encounter
--- OUTSIDE RECORDS SUMMARY | 2024-11-11 19:14 | XMS_ITS | Encounter Summary ---
Author Organization [facility] Address [address] [place] [address] Phone Care Team Providers Care Ladle Cleaner Name Role Phone Kirstie Jarrell MD Primary Care Provider + Encounter Details Date Type Department Care Team (Late st Contact Info) Description 07/09/2020 Telephone [facility] Gastroenterology [address] [facility] 8th [place] [address] [place] [address] Paulina Jones MD [address] [place] [address] Social History Tobacco Use Types Packs/Day Years Used Date Smoking Tobacco: Former Cigarettes Q uit: 2005 Smokeless Tobacco: Never Alcohol Use Standard Drinks/Week Comments Yes 0 (1 standard drink = 0.6 oz pur e alcohol) occasional Sex and Gender Information Value Date Recorded Sex Assigned at Not on file 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 Note from Varun on recent spread- sheet from [employer]: 07/15: Appeal denied on 07/11 and requesting most recent denial letter to discuss next steps * Telephone Encounter - Penelope Lai - 07/16/2020 4:23 PM CDT I received this message about Xeljanz - do you recall if this pt is still on your board waiting approval? I see where we were going to submit to insurance once Entyvio was approved but I don't see any [employer] info under media except bqack in April for Yvonne. Can you shed some light before I need tosubmit please * Telephone Encounter - Loyda Castillo MA - 07/09/2020 9:40 AM CDT Lindsey from [employer] of [facility] stated that the appeal for xeljanz has maintained the denial will receive a letter in 10 days documented in this encounter Plan of Treatment Upcoming Encounters Date Type Department Care Team (Late st Contact Info) Description 11/09/2024 Plan of Care Documentation [facility] Health - [address] [address] [address] [place] [address] documented as of this encounter Visit Diagnoses Not on filedocumented in this encounter Care Teams Ladle Cleaner Relationship Specialty Start Date End Date Kirstie Jarrell MD PCP - General 08/29/17 08/06/21 documented as of this encounter
--- OUTSIDE RECORDS SUMMARY | 2024-11-11 19:14 | XMS_ITS | Encounter Summary ---
Author Organization [facility] Address [address] [place] [address] Phone Care Team Providers Care Plate Stacker Name Role Phone Kirstie Jarrell MD Primary Care Provider + Encounter Details Date Type Department Care Team (Late Contact Info) Description 05/20/2020 Telephone [facility] Infusion Therapy [address] [facility] Medical Office [address] [place] [address] Fabienne Marsh [facility] Social History Tobacco Use Types Packs/Day Years Used Date Smoking Tobacco: Former Cigarettes Q uit: 2004 Smokeless Tobacco: Never Alcohol Use Standard Drinks/Week Comments Yes 0 (1 standard drink = 0.6 oz pur e alcohol) occasional Sex and Gender Information Value Date Recorded Sex Assigned at Not on file 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 documented in this encounter Plan of Treatment Upcoming Encounters Date Type Department Care Team (Late st Contact Info) Description 11/09/2024 Plan of Care Documentation [facility] Health - [address] [place] [id number] documented as of this encounter Visit Diagnoses Not on filedocumented in this encounter Care Teams Plate Stacker Relationship Specialty Start Date End Date Kirstie Jarrell MD PCP - General 08/29/17 08/06/21 documented as of this encounter
--- OUTSIDE RECORDS SUMMARY | 2024-11-11 19:14 | XMS_ITS | Encounter Summary ---
Author Organization [facility] Address [address] [place] [address] Phone Care Team Providers Care Impregnating Helper Name Role Phone Kirstie Jarrell MD Primary Care Provider + Encounter Details Date Type Department Care Team (Late st Contact Info) Description 04/29/2020 Orders Only [facility] Gastroenterology 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 Gender Identity Not on file Sexual Orientation Not on file documented as of this encounter Plan of Treatment Upcoming Encounters Date Type Department Care Team (Late st Contact Info) Description 11/09/2024 Plan of Care Documentation [address] [address] [address] [place] [address] documented as of this encounter Visit Diagnoses Diagnosis Crohn's disease of both small and large intestine with intestinal obstruction (HCC)- Primary documented in this encounter Orders Appointment Requests Count Last Ordered Date Fi rst Ordered Date INFUSION APPT REQUEST 90 MIN 1 05/21/2020 documented in this encounter Care Teams Impregnating Helper Relationship Specialty Start Date End Date Kirstie Jarrell MD PCP - General 08/29/17 08/06/21 documented as of this encounter
--- OUTSIDE RECORDS SUMMARY | 2024-11-11 19:14 | XMS_ITS | Encounter Summary ---
Author Organization [facility] Address [address] [place] [address] Phone Care Team Providers Care Strategic Account Executive Name Role Phone Kirstie Jarrell MD Primary Care Provider + Encounter Details Date Type Department Care Team (Late st Contact Info) Description 12/04/2019 Telephone [facility] Gastroenterology [address] [facility] 8th [place] [address] [place] [address] Paulina Jones MD [address] [place] [address] Social History Tobacco Use Types Packs/Day Years Used Date Smoking Tobacco: Former Cigarettes Q uit: 2005 Smokeless Tobacco: Never Alcohol Use Standard Drinks/Week Comments Yes 0 (1 standard drink = 0.6 oz pur e alcohol) occasional Sex and Gender Information Value Date Recorded Sex Assigned at Not on file 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 Jones would like to get a Stelara Drug level done ALEXEY. The issue with this blood test is has to be done on a timed basis (no sooner than 7 days PRIOR to your next injection). . Please provide the date of your next injection .. The closer to the date of the injection this is done the better( can be done the same day as the injection as long as it is done BEFORE you inject). [place] respond ALEXEY . The blood test can be done a a Lab nelly. Thanks OR MICROSOFT CONSULTANT * Telephone Encounter - Paulina Jones MD - 12/05/2019 2:56 PM SENIOR MICROSOFT CONSULTANT Can we get a stelara level? I do not see one in the chart OR MICROSOFT CONSULTANT * Telephone Encounter - Loyda Castillo MA - 12/04/2019 11:03 AM CST Done. Made patient aware david has called the patient to schedule OR MICROSOFT CONSULTANT * Telephone Encounter - Paulina Jones MD - 12/04/2019 10:22 AM SENIOR MICROSOFT CONSULTANT Needs an MRE OR MICROSOFT CONSULTANT * Telephone Encounter - Loyda Castillo MA - 12/04/2019 9:40 AM CST Pt called in stated that patient is having symptoms like a bowel obstruction for three weeks now, having a lot of ABD pain, pressure, and is very bloated. Patient had Diarrhea this morning stated that he felt a release with increase amount of blood in the stool. Patient is on Stelara had last inj on 11/03. Please advise OR MICROSOFT CONSULTANT documented in this encounter Plan of Treatment Upcoming Encounters Date Type Department Care Team (Late st Contact Info) Description 11/09/2024 Plan of Care Documentation [address] [address] [address] [place] [address] documented as of this encounter Visit Diagnoses Not on filedocumented in this encounter Care Teams Strategic Account Executive Relationship Specialty Start Date End Date Kirstie Jarrell MD PCP - General 08/29/17 08/06/21 documented as of this encounter
--- OUTSIDE RECORDS SUMMARY | 2024-11-11 19:14 | XMS_ITS | Encounter Summary ---
Author Organization [facility] Address [address] [place] [address] Phone Care Team Providers Care Radiation Oncology Nurse Name Role Phone Kirstie Jarrell MD Primary Care Provider + Encounter Details Date Type Department Care Team (Late st Contact Info) Description 04/29/2020 Documentation [facility] Gastroenterology [address] [facility] 8th [place] [address] [place] [address] Loyda Castillo MA Social History Tobacco Use Types Packs/Day Years Used Date Smoking Tobacco: Former Cigarettes Q uit: 2005 Smokeless Tobacco: Never Alcohol Use Standard Drinks/Week Comments Yes 0 (1 standard drink = 0.6 oz pur e alcohol) occasional Sex and Gender Information Value Date Recorded Sex Assigned at Not on file 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 Loyda- Please make sure patient signs up for Entyvio Connect program. Entyvio connect information in anticipation /hopes?? of getting the Entyvio approved. Have him go online to [email or web address] Select the SIGN UP for ENTYVIOCONNECT tab (LARGE PURPLE BUTTON IN THE TOP BANNER) Follow the prompts ?? documented in this encounter Plan of Treatment Upcoming Encounters Date Type Department Care Team (Late st Contact Info) Description 11/09/2024 Plan of Care Documentation [address] [address] [address] [place] [address] documented as of this encounter Visit Diagnoses Not on filedocumented in this encounter Care Teams Radiation Oncology Nurse Relationship Specialty Start Date End Date Kirstie Jarrell MD PCP - General 08/29/17 08/06/21 documented as of this encounter
--- OUTSIDE RECORDS SUMMARY | 2024-11-11 19:14 | XMS_ITS | Encounter Summary ---
Author Organization [facility] Address [address] [place] [address] Phone Care Team Providers Care Gift Officer Name Role Phone Kirstie Jarrell MD Primary Care Provider + Encounter Details Date Type Department Care Team (Late st Contact Info) Description 07/27/2019 Documentation [facility] Gastroenterology [facility] 8th [address] [place] [address] Loyda Castillo MA Social History Tobacco Use Types Packs/Day Years Used Date Smoking Tobacco: Former Cigarettes Q uit: 2005 Smokeless Tobacco: Never Alcohol Use Standard Drinks/Week Comments Yes 0 (1 standard drink = 0.6 oz pur e alcohol) occasional Sex and Gender Information Value Date Recorded Sex Assigned at Not on file 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 Pre-cert submitted on 07/27/19 documented in this encounter Plan of Treatment Upcoming Encounters Date Type Department Care Team (Late st Contact Info) Description 11/09/2024 Plan of Care Documentation [address] [address] [address] [place] [address] documented as of this encounter Visit Diagnoses Not on filedocumented in this encounter Care Teams Gift Officer Relationship Specialty Start Date End Date Kirstie Jarrell MD PCP - General 08/29/17 08/06/21 documented as of this encounter
--- OUTSIDE RECORDS SUMMARY | 2024-11-11 19:14 | XMS_ITS | Encounter Summary ---
Author Organization [facility] Address [address] [place] [address] Phone Care Team Providers Care Manager Income Tax Name Role Phone Kirstie Jarrell MD Primary Care Provider + Reason for Visit * Episode Based Medications (Routine) - Closed Specialty Diagnoses / Procedures Referred By Med bazan Referred To Contact Diagnoses Crohn's disease of small and large intestines with complication (HCC) Procedures AR INJECTION, VEDOLIZUMAB Paulina Jones MD [address] [place] [address] Phone: tel: fax: [facility] Allergy and Immunology [address] [place] [address] [address] [place] [address] Phone: tel: fax: Referral ID Status Reason Start Date Expiration Date Visits Re quested Visits Authorized [id number] Closed 11/03/2020 11/03/2022 99 99 Encounter Details Date Type Department Care Team (Late st Contact Info) Description 05/21/2020 12:30 PM CDT Infusion [facility] Infusion Therapy [address] [place] [address] [address] [place] [address] Crohn's disease of both small [...] on file 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 Pt denies any recent fevers or feeling ill. PIV started and VSS. Infusion started. Pt instructed to call for help whenever needed. Infusion complete and pt tolerated well. documented in this encounter Plan of Treatment Upcoming Encounters Date Type Department Care Team (Late st Contact Info) Description 11/09/2024 Plan of Care Documentation [address] [address] [address] [place] [id number] documented as of this encounter Visit Diagnoses [...] intravenous, As needed, line care, Starting on Tue05/21/20 at 1236, Flush pre and post IV catheter use.Indications:Crohn's disease of small and large intestines with complication (HCC) Given 05/21/2020 12:49 PM CDT 10 mL vedolizumab (ENTYVIO) 300 mg in sodium chloride 0.9% 250 mL IVPB 300 mg, intravenous, at 510 mL/hr, Administer over 30 Minutes, Once, On Tue05/21/20 at 1345, For 1 doseIndications:Crohn's disease of small and large intestines with complication (HCC) New Bag 05/21/2020 12:49 PM CDT 300 mg 510 mL/hr documented in this encounter Orders Nursing Count Last Ordered Date First Orde red Date ONCBCN PROVIDER COMMUNICATION 1 0 VITAL SIGNS PRE-INFUSION 05/21/2020 Appointment Requests Count Last Ordered Date Fi rst Ordered Date INFUSION APPT REQUEST 90 MIN 05/21/2020 documented in this encounter Care Teams Manager Income Tax Relationship Specialty Start Date End Date Kirstie Jarrell MD PCP - General 08/29/17 08/06/21 documented as of this encounter
--- OUTSIDE RECORDS SUMMARY | 2024-11-11 19:14 | XMS_ITS | Encounter Summary ---
Author Organization [facility] Address [address] [place] [address] Phone Care Team Providers Care Parts Sales Advisor Name Role Phone Kirstie Jarrell MD Primary Care Provider + Reason for Visit * Episode Based Medications (Routine) - Closed Specialty Diagnoses / Procedures Referred By Med bazan Referred To Contact Diagnoses Crohn's disease of small and large intestines with complication (HCC) Procedures DC INJECTION, VEDOLIZUMAB Paulina Jones MD [address] [place] [address] Phone: tel: fax: [facility] [address] [place] [address] [address] [place] [address] Phone: tel: fax: Referral ID Status Reason Start Date Expiration Date Visits Re quested Visits Authorized [id number] Closed 11/03/2020 11/03/2022 99 99 Encounter Details Date Type Department Care Team (Late st Contact Info) Description 08/29/2020 12:30 PM CDT Infusion [facility] Infusion Therapy [address] [place] [address] [address] [place] [address] Crohn's disease of small and [...] on file 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 Gender Identity Not on file Sexual Orientation Not on file documented as of this encounter Last Filed Vital Signs Vital Sign Reading Time Taken Comments Blood Pressure 113/65 08/29/2020 1:48 PM CDT Pulse 58 08/29/2020 1:48 PM CDT Temperature 36.4 ??C (97.6 ??F) 08/29/2020 1:01 PM CD T Respiratory Rate - - Oxygen Saturation - - Inhaled Oxygen Concentration - - Weight - - Height - - Body Mass Index - - documented in this encounter Progress Notes * Allyn Patrick RN - 08/29/2020 12:30 PM CDT Pt here today for [...] 11/09/2024 Plan of Care Documentation [address] [address] [address] [place] [address] documented as of this encounter Results * (ABNORMAL) Lipid panel (08/29/2020 2:09 PM CDT) [facility] Cholesterol 181 30 - 199 mg/dL [facility] Comment: Interpretive Data Ages < or [...] ratio 6 ALDO GO Blood specimen (specimen) 08/29/2020 2:09 PM CDT 08/29/2020 2:49 PM CDT us Paulina Jones MD LAB BLOOD ORDERABLE S Final Result [facility] [address] [facility] [place] [address] documented in this encounter Visit Diagnoses Diagnosis Crohn's disease of small and large intestines with complication (HCC)- Primary documented in this encounter Administered Medications Inactive Administered Medications - up to 3 most recent administrations Medication Order MAR Action Action Date Dose Rate Site sodium chloride 0.9% flush 10 mL 10 mL, intravenous, As needed, line care, Starting on Tue08/29/20 at 1259, Flush pre and post IV catheter use.Indications:Crohn's disease of small and large intestines with complication (HCC) Given 08/29/2020 1:10 PM CDT 10 mL vedolizumab (ENTYVIO) 300 mg in sodium chloride 0.9% 250 mL IVPB 300 mg, intravenous, at 510 mL/hr, Administer over 30 Minutes, Once, On Tue08/29/20 at 1400, For 1 doseIndications:Crohn's disease of small and large intestines with complication (HCC) New Bag 08/29/2020 1:13 PM CDT 300 mg 510 mL/hr documented in this encounter Orders Nursing Count Last Ordered Date First Orde red Date ONCBCN PROVIDER COMMUNICATION 1 1 0 VITAL SIGNS PRE-INFUSION 1 08/29/2020 Appointment Requests Count Last Ordered Date Fi rst Ordered Date INFUSION APPT REQUEST 60 MIN 1 10/24/2020 documented in this encounter Care Teams Parts Sales Advisor Relationship Specialty Start Date End Date Kirstie Jarrell MD PCP - General 08/29/17 08/06/21 documented as of this encounter
--- OUTSIDE RECORDS SUMMARY | 2024-11-11 19:14 | XMS_ITS | Encounter Summary ---
Author Organization [facility] Address [address] [place] [address] Phone Care Team Providers Care Superintendent Seed Mill Name Role Phone Kirstie Jarrell MD Primary Care Provider + Encounter Details Date Type Department Care Team (Late st Contact Info) Description 01/09/2020 Orders Only [facility] Gastroenterology 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 Gender Identity Not on file Sexual Orientation Not on file documented as of this encounter Ordered Prescriptions Prescription Sig Dispense Quantity Refills Last Filled Start Date End Date methotrexate 2.5 mg tabletIndications: Inflammatory Bowel Disease Take 10 tabs PO one day per week SAFETY LABS REQUIRED EVERY 3 MONTHS FOR REFILLS DUE 04/2020 40 tablet 2 01/09/2020 0 documented in this encounter Plan of Treatment Upcoming Encounters Date Type Department Care Team (Late st Contact Info) Description 11/09/2024 Plan of Care Documentation [address] [place] [address] documented as of this encounter Visit Diagnoses Diagnosis Crohn's disease of both small and large intestine with intestinal obstruction (HCC) documented in this encounter Discontinued Medications Medication Sig Discontinue Reason Start Date End Da te methotrexate 2.5 mg tabletIndications:Infla mmatory Bowel Disease Take 10 tabs PO one day per week SAFETY LABS REQUIRED EVERY 3 MONTHS FOR REFILLS DUE 10/2019 Reorder 07/27/2019 01/09/2020 documented as of this encounter Care Teams Superintendent Seed Mill Relationship Specialty Start Date End Date Kirstie Jarrell MD PCP - General 08/29/17 08/06/21 documented as of this encounter
--- OUTSIDE RECORDS SUMMARY | 2024-11-11 19:14 | XMS_ITS | Encounter Summary ---
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[employer] Gender Identity Not on file Sexual Orientation Not on file documented as of this encounter Ordered Prescriptions Prescription Sig Dispense Quantity Refills Last Filled Start Date End Date ustekinumab (STELARA) injectionIndicatio ns:Crohn's disease of both small and large intestine with intestinal obstruction (HCC) Inject 90 mg SQ every 4 weeks-SAFETY LABS REQUIRED EVERY 3 MONTHS FOR REFILLS DUE 03/2020 1 mL 11 01/07/2020 0 documented in this encounter Plan of Treatment Upcoming Encounters Date Type Department Care Team (Late st Contact Info) Description 11/09/2024 Plan of Care Documentation [address] [place] [address] documented as of this encounter Visit Diagnoses Diagnosis Crohn's disease of both small and large intestine with intestinal obstruction (HCC) documented in this encounter Discontinued Medications Medication Sig Discontinue Reason Start Date End Da te ustekinumab (STELARA) injection Inject 520 mg under the skin once Infusion 520 mg loading dose Stelara at [facility] infusion Center 01/07/2020 ustekinumab (STELARA) injectionIndications:Commercial Drafter hn's disease of both small and large intestine with intestinal obstruction (HCC) Inject 1 mL (90 mg total) under the skin every 8 (eight) weeks SAFETY LABS REQUIRED EVERY 3 MONTHS FOR REFILLS DUE 10/2019 Reorder 08/22/2019 01/07/2020 documented as of this encounter Care Teams Subassemblies Wirer Relationship Specialty Start Date End Date Kirstie Jarrell MD PCP - General 08/29/17 08/06/21 documented as of this encounter
--- OUTSIDE RECORDS SUMMARY | 2024-11-11 19:14 | XMS_ITS | Encounter Summary ---
Author Organization [facility] [employer] of [facility] Address [address] [place] [address] Phone Care Team Providers Care Rn Residential Name Role Phone Kirstie Jarrell MD Primary Care Provider + Encounter Details Date Type Department Care Team (Late st Contact Info) Description 12/28/2019 Orders Only [facility] Scanning, Provider Social History Tobacco Use Types Packs/Day Years Used Date Smoking Tobacco: Former Cigarettes Q uit: 2004 Smokeless Tobacco: Never Alcohol Use Standard Drinks/Week Comments Yes 0 (1 standard drink = 0.6 oz pur e alcohol) occasional Sex and Gender Information Value Date Recorded Sex Assigned at Not on file 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 Gender Identity Not on file Sexual Orientation Not on file documented as of this encounter Plan of Treatment Upcoming Encounters Date Type Department Care Team (Late st Contact Info) Description 11/09/2024 Plan of Care Documentation [address] [address] [address] [place] [address] documented as of this encounter Procedures Procedure Name Priority Date/Time Associated Diagnosis Comments SCAN - LABS 12/28/2019 documented in this encounter Results * SCAN - LABS (12/28/2019) us Provider Scanning Final Result documented in this encounter Visit Diagnoses Not on filedocumented in this encounter Care Teams Rn Residential Relationship Specialty Start Date End Date Kirstie Jarrell MD PCP - General 08/29/17 08/06/21 documented as of this encounter
--- OUTSIDE RECORDS SUMMARY | 2024-11-11 19:14 | XMS_ITS | Encounter Summary ---
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 ? UST Test code # [id number] - Miscellaneous Test Lab Routine Crohn's disease of both small and large intestine with intestinal obstruction (CMS/HCC) High risk medications (not anticoagulants) long-term use Expected: 12/22/2019 (Approximate), Expires: 12/10/2020 documented as of this encounter Visit Diagnoses Diagnosis Crohn's disease of both small and large intestine with intestinal obstruction (HCC)- Primary High risk medications (not anticoagulants) long-term use Encounter for long-term (current) use of other medications documented in this encounter Care Teams Delivery Driver/Customer Service Relationship Specialty Start Date End Date Kirstie Jarrell MD PCP - General 08/29/17 08/06/21 documented as of this encounter
--- OUTSIDE RECORDS SUMMARY | 2024-11-11 19:14 | XMS_ITS | Encounter Summary ---
Author Organization [facility] [employer] of [facility] Address [address] [place] [address] Phone Care Team Providers Care Continuity Writer Name Role Phone Kirstie Jarrell MD Primary Care Provider + Encounter Details Date Type Department Care Team (Late st Contact Info) Description 05/13/2020 Documentation 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 Gender Identity Not on file Sexual Orientation Not on file documented as of this encounter Progress Notes * Loyda Castillo MA - 05/13/2020 2:01 PM CDT Sent a message to Patria Skaggs to get an update on patient infusion documented in this encounter Plan of Treatment Upcoming Encounters Date Type Department Care Team (Late st Contact Info) Description 11/09/2024 Plan of Care Documentation [address] [address] [address] [place] [address] documented as of this encounter Visit Diagnoses Not on filedocumented in this encounter Care Teams Continuity Writer Relationship Specialty Start Date End Date Kirstie Jarrell MD PCP - General 08/29/17 08/06/21 documented as of this encounter
--- OUTSIDE RECORDS SUMMARY | 2024-11-11 19:14 | XMS_ITS | Encounter Summary ---
Author Organization [facility] [employer] of [facility] Address [address] [place] [address] Phone Care Team Providers Care Centrifugal Chiller Technician Name Role Phone Kirstie Jarrell MD Primary Care Provider + Encounter Details Date Type Department Care Team (Late st Contact Info) Description 05/16/2020 Orders Only [facility] Scanning, Provider Social History Tobacco Use Types Packs/Day Years Used Date Smoking Tobacco: Former Cigarettes Q uit: 2004 Smokeless Tobacco: Never Alcohol Use Standard Drinks/Week Comments Yes 0 (1 standard drink = 0.6 oz pur e alcohol) occasional Sex and Gender Information Value Date Recorded Sex Assigned at Not on file 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 Gender Identity Not on file Sexual Orientation Not on file documented as of this encounter Plan of Treatment Upcoming Encounters Date Type Department Care Team (Late st Contact Info) Description 11/09/2024 Plan of Care Documentation [address] [address] [place] [address] documented as of this encounter Procedures Procedure Name Priority Date/Time Associated Diagnosis Comments SCAN - LABS 05/16/2020 documented in this encounter Results * SCAN - LABS (05/16/2020) us Provider Scanning Final Result documented in this encounter Visit Diagnoses Not on filedocumented in this encounter Care Teams Centrifugal Chiller Technician Relationship Specialty Start Date End Date Kirstie Jarrell MD PCP - General 08/29/17 08/06/21 documented as of this encounter
--- OUTSIDE RECORDS SUMMARY | 2024-11-11 19:14 | XMS_ITS | Encounter Summary ---
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 Gender Identity Not on file Sexual Orientation Not on file documented as of this encounter Progress Notes * Rita Lama RN - 12/28/2019 6:53 AM CST JCV HBORHOOD SERVICE CENTER DIRECTOR documented in this encounter Plan of Treatment Upcoming Encounters Date Type Department Care Team (Late st Contact Info) Description 11/09/2024 Plan of Care Documentation [address] [place] [address] Scheduled Orders Name Type Priority Associated Diagnoses Orde r Schedule Stratify JCV(TM) antibody w/ reflex Lab Routine Crohn's disease of both small and large intestine with intestinal obstruction (CMS/HCC) High risk medications (not anticoagulants) long-term use Expected: 12/28/2019, Expires: 12/28/2020 documented as of this encounter Visit Diagnoses Diagnosis Crohn's disease of both small and large intestine with intestinal obstruction (HCC)- Primary High risk medications (not anticoagulants) long-term use Encounter for long-term (current) use of other medications documented in this encounter Care Teams Asphalt Mixer Relationship Specialty Start Date End Date Kirstie Jarrell MD PCP - General 08/29/17 08/06/21 documented as of this encounter
--- OUTSIDE RECORDS SUMMARY | 2024-11-11 19:14 | XMS_ITS | Encounter Summary ---
Author Organization [facility] Address [address] [place] [address] Phone Care Team Providers Care Plastic Manager Name Role Phone Kirstie Jarrell MD Primary Care Provider + Reason for Visit * Episode Based Medications (Routine) - Closed Specialty Diagnoses / Procedures Referred By Med bazan Referred To Contact Diagnoses Crohn's disease of small and large intestines with complication (HCC) Procedures PA INJECTION, VEDOLIZUMAB Paulina Jones MD [address] [place] [address] Phone: tel: fax: [facility] Allergy and Immunology [address] [place] [address] [address] [place] [address] Phone: tel: fax: Referral ID Status Reason Start Date Expiration Date Visits Re quested Visits Authorized [id number] Closed 11/03/2020 11/03/2022 99 99 Encounter Details Date Type Department Care Team (Late st Contact Info) Description 06/04/2020 12:30 PM CDT Infusion [facility] Infusion Therapy [address] [place] [address] [address] [place] [address] Crohn's disease of small and [...] on file 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 Gender Identity Not on file Sexual Orientation Not on file documented as of this encounter Last Filed Vital Signs Vital Sign Reading Time Taken Comments Blood Pressure 133/80 06/04/2020 1:27 PM CDT Pulse 48 06/04/2020 1:27 PM CDT Temperature 36.7 ??C (98 ??F) 06/04/2020 12:40 PM CDT Respiratory Rate - - Oxygen Saturation - - Inhaled Oxygen Concentration - - Weight - - Height - - Body Mass Index - - documented in this encounter Plan of Treatment Upcoming Encounters Date Type Department Care Team (Late st Contact Info) Description 11/09/2024 Plan of Care Documentation [address] [address] [place] [address] documented as of this encounter Visit Diagnoses [...] Administer over 30 Minutes, Once, On Ashlyn 06/05/20 at 1915, For 1 doseIndications:Crohn's disease of small and large intestines with complication (HCC) New Bag 06/04/2020 12:53 PM CDT 300 mg 510 mL/hr documented in this encounter Orders Medications Ordered That Steven ht Not Have Been Administered Count Last Ordered Date First Ordered Date sodium chloride 0.9% flush 10 mL 1 06/04/20 20 vedolizumab (ENTYVIO) 300 mg in sodium chloride 0.9% 250 mL IVPB 1 06/04/2020 Nursing Count Last Ordered Date First Orde red Date ONCBCN PROVIDER COMMUNICATION 1 0 VITAL SIGNS PRE-INFUSION 1 06/04/2020 documented in this encounter Care Teams Plastic Manager Relationship Specialty Start Date End Date Kirstie Jarrell MD PCP - General 08/29/17 08/06/21 documented as of this encounter
--- OUTSIDE RECORDS SUMMARY | 2024-11-11 19:14 | XMS_ITS | Encounter Summary ---
Author Organization [facility] [employer] of [facility] Address [address] [place] [address] Phone Care Team Providers Care Hand Coke Drawer Name Role Phone Kirstie Jarrell MD Primary Care Provider + Encounter Details Date Type Department Care Team (Late st Contact Info) Description 11/05/2019 Orders Only 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 Gender Identity Not on file Sexual Orientation Not on file documented as of this encounter Ordered Prescriptions Prescription Sig Dispense Quantity Refills Last Filled Start Date End Date folic acid (FOLVITE) 1 mg tabletIndications: Crohn's disease of both small and large intestine without complication (CMS/HCC) (HCC) Take 1 tablet (1 mg total) by mouth daily 90 tablet 3 11/05/2019 02/27/2021 documented in this encounter Plan of Treatment Upcoming Encounters Date Type Department Care Team (Late st Contact Info) Description 11/09/2024 Plan of Care Documentation [address] [place] [address] documented as of this encounter Visit Diagnoses Diagnosis Crohn's disease of both small and large intestine without complication (CMS/HCC) (HCC) documented in this encounter Discontinued Medications Medication Sig Discontinue Reason Start Date End Da te folic acid (FOLVITE) 1 mg tabletIndications:Crohn's disease of both small and large intestine without complication (CMS/HCC) (HCC) Take 1 tablet (1 mg total) by mouth daily. Reorder 10/06/2018 11/05/2019 documented as of this encounter Care Teams Hand Coke Drawer Relationship Specialty Start Date End Date Kirstie Jarrell MD PCP - General 08/29/17 08/06/21 documented as of this encounter
--- OUTSIDE RECORDS SUMMARY | 2024-11-11 19:14 | XMS_ITS | Encounter Summary ---
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 Gender Identity Not on file Sexual Orientation Not on file documented as of this encounter Miscellaneous Notes * Result Encounter Note - Paulina Jones MD - 07/02/2020 8:15 AM CDT Lipid panel OK, CBC and LFTs OK documented in this encounter Plan of Treatment Upcoming Encounters Date Type Department Care Team (Late st Contact Info) Description 11/09/2024 Plan of Care Documentation [facility] - [address] [address] [address] [place] [address] documented as of this encounter Procedures Procedure Name Priority Date/Time Associated Diagnosis Comments DIFFERENTIAL AUTO Routine 07/01/2020 12: 10 PM CDT Crohn's disease of small and large intestines with complication (CMS/HCC) CBC WITH AUTO DIFFERENTIAL Routine 07/01/2020 12:10 PM CDT Crohn's disease of small and large intestines with complication (CMS/HCC) HEPATIC FUNCTION PANEL Routine 07/01/2020 12:10 PM CDT Crohn's disease of small and large intestines with complication (CMS/HCC) LIPID PANEL Routine 07/01/2020 12:10 PM CDT Crohn's disease of small and large intestines with complication (CMS/HCC) documented in this encounter Results * Differential, auto (07/01/2020 12:10 PM CDT) Neutrophil abs 4.8 1.7 - 6.5 K/cumm [facility] Imm gran abs 0.0 0.0 - 0.1 K/cumm [facility] Lymphocyte abs 2.1 0.8 - 3.3 K/cumm [facility] Monocyte abs 0.4 0.2 - 0.8 K/cumm [facility] Eosinophil abs 0.1 0.0 - 0.5 K/cumm [facility] Basophil abs 0.0 0.0 - 0.1 K/cumm [facility] Neutrophil pct 64.3 % [facility] Comment: Interpretive Data Percent [...] was last revised on 2018. Lymphocyte pct 28.6 % [facility] Comment: Interpretive Data Percent cell count reference ranges are not reported, since discordance with absolute values may lead to misinterpretation of CBC data. Current Interpretive Data was last revised on 2018. Monocyte pct 4.8 % [facility] Comment: Interpretive Data Percent cell count reference ranges are not reported, since discordance with absolute values may lead to misinterpretation of CBC data. Current Interpretive Data was last revised on 2018. Eosinophil pct 1.5 % [facility] Comment: Interpretive Data Percent [...] last revised on 2018. Blood specimen (specimen) 07/01/2020 12:10 PM CDT 07/01/2020 4:41 PM CDT Paulina Jones MD LAB BLOOD ORDERABLE S Final Result [facility] [id number] [facility]. [place] [address] * (ABNORMAL) Lipid panel (07/01/2020 12:10 PM CDT) Cholesterol 184 30 - 199 mg/dL [facility] Comment: [...] Data was last revised on 2018. Triglycerides 197(H) <=149 mg/dL [facility] Comment: Interpretive Data Ages [...] Data was last revised on 2018. HDL 33(L) >=40 mg/dL [facility] Comment: Interpretive Data Ages < or = [...] was last revised on 2018. LDL, calculated 112 <=129 mg/dL [facility] Comment: Interpretive Data Ages [...] ratio 6 [facility] Blood specimen (specimen) 07/01/2020 12:10 PM CDT 07/01/2020 4:41 PM CDT us Paulina Jones MD LAB BLOOD ORDERABLE S Final Result [facility] [id number] [facility]. [place] [address] * Hepatic function panel (07/01/2020 12:10 PM CDT) Bilirubin, total 0.8 0.1 - 1.2 mg/dL [facility] Bilirubin, direct <0.2 0.1 - 0.3 mg/dL [facility] Protein, pl 7.0 6.5 - 8.5 g/dL [facility] Albumin 4.3 3.5 - 5.0 g/dL [facility] Alk phos 59 40 - 130 Units/L [facility] ALT 27 7 - 55 Units/L [facility] AST 29 10 - 50 Units/L [facility] Blood specimen (specimen) 07/01/2020 12:10 PM CDT 07/01/2020 4:41 PM CDT us Paulina Jones MD LAB BLOOD ORDERABLE S Final Result [facility] [id number] [facility]. [place] [address] * (ABNORMAL) CBC with auto differential (07/01/2020 12:10 PM CDT) WBC 7.5 3.8 - 9.9 K/cumm [facility] Hgb 13.1 13.0 - 17.5 g/dL [facility] Hct 42.4 38.9 - 50.3 % [facility] Plt 258 150 - 400 K/cumm [facility] MPV 10.3 9.1 - 12.3 fL [facility] RBC 4.83 4.30 - 5.80 M/cumm [facility] MCV 87.8 81.3 - 96.4 fL [facility] MCH 27.1 27.1 - 33.3 pg [facility] MCHC 30.9(L) 32.3 - 35.7 g/dL [facility] RDW CV 15.0(H) 11.1 - 14.9 % [facility] RDW SD 47.8 35.7 - 48.1 fL [facility] NRBC abs 0.00 0.00 - 0.01 K/cumm [facility] Blood specimen (specimen) 07/01/2020 12:10 PM CDT 07/01/2020 4:41 PM CDT us Paulina Jones MD LAB BLOOD ORDERABLE S Final Result [facility] [id number] [facility]. Department of Laboratories [place], [place] [id number] documented in this encounter Visit Diagnoses Diagnosis Crohn's disease of small and large intestines with complication (HCC) documented in this encounter Care Teams Scalping Machine Operator Relationship Specialty Start Date End Date Kirstie Jarrell MD PCP - General 08/29/17 08/06/21 documented as of this encounter
--- OUTSIDE RECORDS SUMMARY | 2024-11-11 19:14 | XMS_ITS | Encounter Summary ---
Author Organization [facility] [employer] [facility] Address [address] [place] [address] Phone Care Team Providers Care Rag Willow Operator Name Role Phone Kirstie Jarrell MD Primary Care Provider + Encounter Details Date Type Department Care Team (Late st Contact Info) Description 08/22/2019 Orders Only [facility] Gastroenterology [facility] 8th [place] [address] [place] [address] Rita Lama RN Crohn's disease of both [...] on file 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 Gender Identity Not on file Sexual [...] FOR REFILLS DUE 10/2019 1 mL 5 08/22/2019 0 documented in this encounter Plan of Treatment Upcoming Encounters Date Type Department Care Team (Late st Contact Info) Description 11/09/2024 Plan of Care Documentation [facility] - [address] [place] [address] documented as of this encounter Visit Diagnoses Diagnosis Crohn's disease of both small and large intestine with intestinal obstruction (HCC)- Primary documented in this encounter Discontinued Medications Medication Sig Discontinue Reason Start Date End Da te ustekinumab (STELARA) injection Inject 1 mL (90 mg total) under the skin every 8 (eight) weeks SAFETY LABS REQUIRED EVERY 3 MONTHS FOR REFILLS DUE 10/2019 Reorder 08/09/2019 08/22/2019 documented as of this encounter Care Teams Rag Willow Operator Relationship Specialty Start Date End Date Kirstie Jarrell MD PCP - General 08/29/17 08/06/21 documented as of this encounter
--- OUTSIDE RECORDS SUMMARY | 2024-11-11 19:14 | XMS_ITS | Encounter Summary ---
Author Organization [facility] [employer] [facility] Address [address] [place] [address] Phone Care Team Providers Care Transmission Systems Operator Name Role Phone Kirstie Jarrell MD Primary Care Provider + Encounter Details Date Type Department Care Team (Late st Contact Info) Description 01/04/2020 Orders Only [facility] Scanning, Provider Social History Tobacco Use Types Packs/Day Years Used Date Smoking Tobacco: Former Cigarettes Q uit: 2004 Smokeless Tobacco: Never Alcohol Use Standard Drinks/Week Comments Yes 0 (1 standard drink = 0.6 oz pur e alcohol) occasional Sex and Gender Information Value Date Recorded Sex Assigned at Not on file 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 Gender Identity Not on file Sexual Orientation Not on file documented as of this encounter Plan of Treatment Upcoming Encounters Date Type Department Care Team (Late st Contact Info) Description 11/09/2024 Plan of Care Documentation [address] [address] [address] [place] [address] documented as of this encounter Procedures Procedure Name Priority Date/Time Associated Diagnosis Comments SCAN - LABS 01/04/2020 documented in this encounter Results * SCAN - LABS (01/04/2020) us Provider Scanning Final Result documented in this encounter Visit Diagnoses Not on filedocumented in this encounter Care Teams Transmission Systems Operator Relationship Specialty Start Date End Date Kirstie Jarrell MD PCP - General 08/29/17 08/06/21 documented as of this encounter
--- OUTSIDE RECORDS SUMMARY | 2024-11-11 19:14 | XMS_ITS | Encounter Summary ---
Author Organization [facility] [employer] [facility] Address [address] [place] [address] Phone Care Team Providers Care Green Jobs Trainer Name Role Phone Kirstie Jarrell MD Primary [...] WO Contrast Paulina Jones MD [address] [place] [address] Phone: tel: fax: [address] [phone] Referral ID Status Reason Start Date Expiration Date Visits Re quested Visits Authorized [id number] Closed 12/04/2019 06/14/2021 1 1 ARED FOODS TEAM LEADER Encounter Details Date Type Department Care Team (Late st Contact Info) Description 12/04/2019 Orders Only [facility] Gastroenterology [address] [facility] 8[address] [place] [address] [place] [address] Penelope Lai Crohn's disease of both small and large intestine with intestinal obstruction (CMS/HCC); High risk medications (not anticoagulants) long-term use; Abdominal pain, unspecified abdominal location; Bloating; Diarrhea, unspecified type; Blood in stool Social History Tobacco Use Types Packs/Day Years Used Date Smoking Tobacco: Former Cigarettes Q uit: 2005 Smokeless Tobacco: Never Alcohol Use Standard Drinks/Week Comments Yes 0 (1 standard drink = 0.6 oz pur e alcohol) occasional Sex and Gender Information Value Date Recorded Sex Assigned at Not on file Legal Sex Male 9:34 AM PREPARED FOODS TEAM LEADER Gender Identity Not on file Sexual Orientation Not on file documented as of this encounter Plan of Treatment Upcoming Encounters Date Type Department Care Team (Late st Contact Info) Description 11/09/2024 Plan of Care Documentation [address] [address] [address] [place] [address] documented as of this encounter Results * MRI Abdomen Enterography W WO Contrast (01/07/2020 3:09 PM PREPARED FOODS TEAM LEADER) Anatomical Region Laterality Modality Body N/A Magnetic Resonan ce 01/07/2020 4:21 PM PREPARED FOODS TEAM LEADER Impressions 01/08/2020 2:08 PM PREPARED FOODS TEAM LEADER 1. Mild acute on chronic inflammation involving [...] Marga Lemus M.D. Narrative 01/08/2020 2:08 PM PREPARED FOODS TEAM LEADER EXAMINATION: MAGNETIC RESONANCE IMAGING OF THE ABDOMEN [...] it. Electronically signed by: Marga Lemus M.D. Result [facility] Paulina Jones MD IMG MRI PROCEDURES Final Result documented in this encounter Visit Diagnoses Diagnosis Crohn's disease of both small and large intestine with intestinal obstruction (HCC) High risk medications (not anticoagulants) long-term use Encounter for long-term (current) use of other medications Abdominal pain, unspecified abdominal location Bloating Flatulence, eructation, and gas pain Diarrhea, unspecified type Blood in stool Crohn's disease of both small and large intestine with intestinal obstruction (HCC) High risk medications (not anticoagulants) long-term use Encounter for long-term (current) use of other medications Abdominal pain, unspecified abdominal location Bloating Flatulence, eructation, and gas pain Diarrhea, unspecified type Blood in stool documented in this encounter Care Teams Green Jobs Trainer Relationship Specialty Start Date End Date Kirstie Jarrell MD PCP - General 08/29/17 08/06/21 documented as of this encounter
--- OUTSIDE RECORDS SUMMARY | 2024-11-11 19:14 | XMS_ITS | Encounter Summary ---
Author Organization [facility] Address [address] [place] [address] Phone Care Team Providers Care Director Enterprise Data Architecture Name Role Phone Kirstie Jarrell MD Primary Care Provider + Encounter Details Date Type Department Care Team (Late st Contact Info) Description 03/25/2020 8:45 AM CDT Telemedicine [facility] Gastroenterology [address] [facility] [address] [address] [place] [address] Paulina Jones MD [address] [place] [address] High risk medications (not anticoagulants) long-term use [...] on file 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 Gender Identity Not on file Sexual Orientation Not on file documented as of this encounter Patient Instructions * Patient Instructions* Rita Lama RN - 03/25/2020 8:45 AM CDT script for Uceris foam to local [facility]'s- use the link that BIOCHEMISTRY TECHNICIAN gave patient to get coupon for med Hydrocortisone suppository daily sent script to local pharmacy - if insurance does not cover obtainOTC Pre H suppositories Stop Methotrexate Start Mercaptopurine 75 mg(1.5 tabs) daily Labs due by end of March/April 2020 and then again in 07/2020( every 3 months)- New orders for labs sent to [facility] , order good for 2 labs draws Metabolites and labs due in 1 months Due week of 04/25/2020 Follow up in office in 3 months- need to be schedule documented in this encounter Ordered Prescriptions Prescription Sig Dispense Quantity Refills Last Filled Start Date End Date mercaptopurine (PURINETHOL) 50 mg tabletIndications :Crohn's Disease Take 1 .5 tabs daily, labs due week of 04/11 and then again week of 04/25(metabolites at [facility]) 45 tablet 2 0 04/29/20 20 hydrocortisone (ANUSOL-HC) 25 mg suppositoryIndica tions:Crohn's disease of both small and large intestine with intestinal obstruction (HCC) Insert 1 suppository (25 mg total) into the rectum daily Take prior to procedure as directed 30 suppository 0 03/25/20 21 budesonide (Uceris) 2 mg/actuation foamIndications:C rohn's disease of both small and large intestine with intestinal obstruction (HCC) Insert into the rectum 1 metered dose(2 mg) twice daily for 2 weeks 1 Can 1 0 12/09/19 22 documented in this encounter Progress Notes * Izabela Gregory NP - 03/25/2020 8:45 AM CDT Images from the original note were not included. [facility] TELEHEALTH CLINIC VISIT This was a telemedicine visit with Ranjit Peralta alone which took place via Real-time video connection [employer] or similar). During the visit, Dr. Jones and I were located at the officeand the patient was located at home. The session started at 8:30a and ended at 9:00. The patient spoke to the BIOCHEMISTRY TECHNICIAN from 8:30-8:[address] Jnoes from 8:44-9:00 The patient has been informed that the visit may not be secure and acknowledged the information. I have explained the option of participating in a telephone or video visit during the COVID-19 public health emergency to the patient. After being given an opportunity to ask questions about and discuss this type of visit, the patient consented in writing (consent on file in [facility]) to proceeding with the telephone / video visit. The patient understands that this service replaces an office visit and they may be billed and/or responsible for any applicable copayments. REASON FOR VISIT: Follow-up for ileocolonic and perianal Crohn's disease CURRENT MEDICATIONS: Stelara 90 mg every 4 weeks, methotrexate 25 mg weekly, Proctofoam, folic acid, vitamin-D, PROBLEM LIST: 1. Ileocolonic and perianal Crohn's disease, diagnosed in 2006, with a presentation of hematocheziaand a perianal fistula with abscess. 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 He had the 1st infusion of Stelara on 08/24/2019. Unfortunately he remained symptomatic with MRE findings from 01/08/2020 concerning for acute on chronic disease in the rectum and terminal ileum. His Stelara trough level was noted to be subtherapeutic at 0.8 mcg/mL at every 8 weeks. He was advised shortness interval to every 4 weeks and remain on methotrexate. 2. History of significant gout flares while on allopurinol vs thiopurines leading to their discontinuation. Requiring steroid tapers, indomethacin, and colchicine. Patient had difficulty with colchicine causing diarrhea HISTORY OF PRESENT ILLNESS: Ranjit Peralta is a gabby 39 y.o. male with past medical history of ileocolonic Crohn's disease who presents today for follow-up after adjustment of his Stelara. The patient was last seen in clinic on November 13, 2019 at which time he had difficulty with symptoms over the holidays the largely attributed this to poor food choices. He felt he was doing perhaps slightly better than when he was on Entyvio. He continued to see some blood in the stool and denied any obstructive symptoms. He was advised to have his Stelara levels checked and plan for a repeat MR enterography. The MR enterography on 01/08/2020 was concerning for acute and chronic disease in the rectum and terminal ileum his trough levels of Stelara were noted to be subtherapeutic at 0.8 mcg/mL. His interval was shortened to every 4 weeks. Patient presents today reporting that he does feel his symptoms have improved since the interval was shortened to monthly. Specifically he has some improvements in his rectal symptoms but has had resolution of his right lower quadrant pain. Unfortunately continues to have some urgency and hematochezia suggesting active rectal disease. He believes he has had 2 shots at the shortened interval. He has been compliant with methotrexate. He finds the Proctofoam difficulty use as it has a very short applicator. He denies any joint pain or mouth sores. His weight has been stable REVIEW OF SYSTEMS: As per HPI, all other systems negative PHYSICAL EXAM: Exam by interview only via video visit today. There were no vital signs taken for this visit. Patient reports weight is stable General: Patient is a well-appearing male in no acute cardiopulmonary distress Labs: Recent laboratory results reviewed ASSESSMENT AND PLAN: Ranjit Peralta is a gabby 39 y.o. male with past medical history of fairly refractory ileocolonic Crohn's disease who presents today after adjustment of his Stelara. 1. Crohn's disease. We are pleased that the patient does feel improvement since starting Stelara particularly since the interval was shortened. As there had been previous discussion of possible surgery for his ileal disease, it is very reassuring that he is no longer having obstructive symptoms. Unfortunately we worry that he is still not in remission and therefore would like him to have more time on monthly Stelara. However we also would like to see if we can get a better response from thiopurines. In the past the patient had problems with gout but it was unclear if the gout really was triggered by the allopurinol(started for gout) verses the thiopurines. We would like to restart him on mercaptopurine 75 mg daily (borderline low TPMT levels) and check lab work in 2 weeks and metabolites in a month. The patient can use Uceris foam and was given the link for the co-pay assistance card orhydrocortisone suppositories for ongoing rectal symptoms. We will consider either a colonoscopy herrepeat MRE to assess response to therapy once he is stabilized. 2. Gout. The patient has not had any gout flares in quite some time. There is a concern that restarting thiopurines may trigger flare. We will watch him closely and consider adding back allopurinol but at a higher dose if necessary. 3. Healthcare maintenance. Patient is to follow closely with his care team for other healthcare needs. He is up-to-date with his vaccines and should get a flu shot in the fall. The patient was given ample opportunity to ask questions and have them answered. We would like him to return in 3 months. This note was created in part with the assistance of [employer] voice recognition software. Insulation Foreman variances may occur. Cosigned by Paulina Jones MD at 03/26/2020 1:47 PM CDT Associated attestation - Paulina Jones MD - 03/26/2020 1:47 PM CDT I have seen and examined the patient. I agree with the findings and plan of care as documented in the resident/fellow's note. documented in this encounter Plan of Treatment Upcoming Encounters Date Type Department Care Team (Late st Contact Info) Description 11/09/2024 Plan of Care Documentation [address] [address] [address] [place] [id number] Scheduled Orders Name Type Priority Associated Diagnoses Orde r Schedule CBC with auto differential Lab Routine Crohn's disease of both small and large intestine with intestinal obstruction (CMS/HCC) High risk medications (not anticoagulants) long-term use every 3 months for 2 Occurrences starting 03/25/2020 until 03/25/2021 Hepatic function panel Lab Routine Crohn's disease of both small and large intestine with intestinal obstruction (CMS/HCC) High risk medications (not anticoagulants) long-term use every 3 months for 2 Occurrences starting 03/25/2020 until 03/25/2021 TB test, quantiferon gold Lab Routine Crohn's disease of both small and large intestine with intestinal obstruction (CMS/HCC) High risk medications (not anticoagulants) long-term use Expected: 03/25/2020, Expires: 03/25/2021 CBC with auto differential Lab Routine Crohn's disease of both small and large intestine with intestinal obstruction (CMS/HCC) High risk medications (not anticoagulants) long-term use Expected: 04/25/2020 (Approximate), Expires: 03/25/2021 Hepatic function panel Lab Routine Crohn's disease of both small and large intestine with intestinal obstruction (CMS/HCC) High risk medications (not anticoagulants) long-term use Expected: 03/25/2020, Expires: 03/25/2021 Thiopurine metabolites Lab Routine Crohn's disease of both small and large intestine with intestinal obstruction (CMS/HCC) High risk medications (not anticoagulants) long-term use Expected: 03/25/2020, Expires: 03/25/2021 documented as of this encounter Visit Diagnoses Diagnosis High risk medications (not anticoagulants) long-term use- Primary Encounter for long-term (current) use of other medications Crohn's disease of both small and large intestine with intestinal obstruction (HCC) documented in this encounter Discontinued Medications Medication Sig Discontinue Reason Start Date End Da te budesonide (UCERIS) 2 mg/actuation foamIndications:Crohn's disease of both small and large intestine with intestinal obstruction (HCC) Insert into the rectum 1 metered dose(2 mg) twice daily for 2 weeks Reorder 07/27/2019 03/25/2020 methotrexate 2.5 mg tabletIndications:Inflam matory Bowel Disease Take 10 tabs PO one day per week SAFETY LABS REQUIRED EVERY 3 MONTHS FOR REFILLS DUE 04/2020 Therapy completed 01/09/2020 03/25/2020 documented as of this encounter Care Teams Director Enterprise Data Architecture Relationship Specialty Start Date End Date Kirstie Jarrell MD PCP - General 08/29/17 08/06/21 documented as of this encounter
--- OUTSIDE RECORDS SUMMARY | 2024-11-11 19:14 | XMS_ITS | Encounter Summary ---
Author Organization [facility] [employer] [facility] Address [address] [place] [address] Phone Care Team Providers Care Decal Applier Name Role Phone Kirstie Jarrell MD Primary Care Provider + Encounter Details Date Type Department Care Team (Late st Contact Info) Description 03/21/2020 Telephone [facility] Gastroenterology [address] [facility] [address] [place] [address] Chandler Pike, A Social History Tobacco Use Types Packs/Day Years Used Date Smoking Tobacco: Former Cigarettes Q uit: 2004 Smokeless Tobacco: Never Alcohol Use Standard Drinks/Week Comments Yes 0 (1 standard drink = 0.6 oz pur e alcohol) occasional Sex and Gender Information Value Date Recorded Sex Assigned at Not on file 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 documented in this encounter Plan of Treatment Upcoming Encounters Date Type Department Care Team (Late st Contact Info) Description 11/09/2024 Plan of Care Documentation [facility] Home Health - [address] [address] [address] [place] [address] documented as of this encounter Visit Diagnoses Not on filedocumented in this encounter Care Teams Decal Applier Relationship Specialty Start Date End Date Kirstie Jarrell MD PCP - General 08/29/17 08/06/21 documented as of this encounter
--- OUTSIDE RECORDS SUMMARY | 2024-11-11 19:14 | XMS_ITS | Encounter Summary ---
Author Organization [facility] [employer] [facility] Address [address] [place] [address] Phone Care Team Providers Care Tool Maker Apprentice Name Role Phone Kirstie Jarrell MD Primary Care Provider + Encounter Details Date Type Department Care Team (Late st Contact Info) Description 08/09/2019 Documentation [facility] Gastroenterology [address] [facility] 8[address] [place] [address] [place] [address] Loyda Castillo MA Social History Tobacco Use Types Packs/Day Years Used Date Smoking Tobacco: Former Cigarettes Q uit: 2005 Smokeless Tobacco: Never Alcohol Use Standard Drinks/Week Comments Yes 0 (1 standard drink = 0.6 oz pur e alcohol) occasional Sex and Gender Information Value Date Recorded Sex Assigned at Not on file 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 ----- Message ----- From: Patria Skaggs Sent: 08/09/2019 ??11:39 AM To: Rita Lama RN Subject: APPROVED ? ----- Message ----- From: Rita Lama RN Sent: 07/27/2019 ?? 8:50 AM To: Loyda Castillo MA, * documented in this encounter Plan of Treatment Upcoming Encounters Date Type Department Care Team (Late st Contact Info) Description 11/09/2024 Plan of Care Documentation [address] [address] [address] [place] [address] documented as of this encounter Visit Diagnoses Not on filedocumented in this encounter Care Teams Tool Maker Apprentice Relationship Specialty Start Date End Date Kirstie Jarrell MD PCP - General 08/29/17 08/06/21 documented as of this encounter
--- OUTSIDE RECORDS SUMMARY | 2024-11-11 19:14 | XMS_ITS | Encounter Summary ---
Author Organization [facility] [employer] [facility] Address [address] [place] [address] Phone Care Team Providers Care Cook Vacuum Kettle Name Role Phone Kirstie Jarrell MD Primary Care Provider + Reason for Visit * Episode Based Medications (Routine) - Closed Specialty Diagnoses / Procedures Referred By Med bazan Referred To Contact Diagnoses Crohn's disease of small and large intestines with complication (HCC) Procedures [place] INJECTION, VEDOLIZUMAB Paulina Jones MD [address] [place] [address] Phone: tel: fax: [facility] Allergy and Immunology [address] [place] [address] [address] [place] [address] Phone: tel: fax: Referral ID Status Reason Start Date Expiration Date Visits Re quested Visits Authorized [id number] Closed 11/03/2020 11/03/2022 99 99 Encounter Details Date Type Department Care Team (Late st Contact Info) Description 07/01/2020 12:00 PM CDT Infusion [facility] Infusion Therapy [address] [place] [address] [address] [place] [address] Crohn's disease of small and [...] on file 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 Pt denies any recent fevers or feeling ill. PIV started and CBC, HFP, and lipid panel drawn with PIV start. VSS. Infusion started. Pt instructed to call for help whenever needed. Pt told about 30 min wait policy and declined to wait. Infusion complete and pt tolerated well. documented in this encounter Miscellaneous Notes * Addendum Note - Tommy Esparza CLT - 07/01/2020 12:00 PM CDTAddended by: TOMMY ESPARZA on: 07/01/2020 03:47 PM Modules accepted: Orders documented in this encounter Plan of Treatment Upcoming Encounters Date Type Department Care Team (Late st Contact Info) Description 11/09/2024 Plan of Care Documentation [facility] [address] [address] [address] [place] [address] documented as of this encounter Results * (ABNORMAL) Lipid panel (07/01/2020 12:10 PM CDT) Cholesterol 184 30 - 199 mg/dL [facility] Comment: Interpretive Data Ages < or = [...] on 2018. Triglycerides 197(H) <=149 mg/dL [facility] Comment: Interpretive Data [...] on 2018. HDL 33(L) >=40 mg/dL [facility] Comment: Interpretive Data [...] 2018. LDL, calculated 112 <=129 mg/dL [facility] Comment: Interpretive Data [...] BLOOD ORDERABLE S Final Result [facility] [address] [facility]. [place] [address] documented in this encounter Visit Diagnoses Diagnosis Crohn's disease of small and large intestines with complication (HCC)- Primary documented in this encounter Administered Medications Inactive Administered Medications - up to 3 most recent administrations Medication Order MAR Action Action Date Dose Rate Site sodium chloride 0.9% flush 10 mL 10 mL, intravenous, As needed, line care, Starting on Tue07/01/20 at 1200, Flush pre and post IV catheter use.Indications:Crohn's disease of small and large intestines with complication (HCC) Given 07/01/2020 12:15 PM CDT 10 mL vedolizumab (ENTYVIO) 300 mg in sodium chloride 0.9% 250 mL IVPB 300 mg, intravenous, at 510 mL/hr, Administer over 30 Minutes, Once, On Tue07/02/20 at 1830, For 1 doseIndications:Crohn's disease of small and large intestines with complication (HCC) New Bag 07/01/2020 12:20 PM CDT 300 mg 510 mL/hr documented in this encounter Orders Nursing Count Last Ordered Date First Orde red Date ONCBCN PROVIDER COMMUNICATION 1 1 0 VITAL SIGNS PRE-INFUSION 1 07/01/2020 documented in this encounter Care Teams Cook Vacuum Kettle Relationship Specialty Start Date End Date Kirstie Jarrell MD PCP - General 08/29/17 08/06/21 documented as of this encounter
--- OUTSIDE RECORDS SUMMARY | 2024-11-11 19:15 | XMS_ITS | Encounter Summary ---
Author Organization [facility] [employer] [facility] Address [address] [place] [address] Phone Care Team Providers Care Storm Sash Maker Name Role Phone Kirstie Jarrell MD Primary Care Provider + Encounter Details Date Type Department Care Team (Late st Contact Info) Description 04/23/2019 Orders Only [facility] Gastroenterology [address] [facility] 8th [place] [address] [place] [address] Rita Lama RN Social History Tobacco Use Types Packs/Day Years Used Date Smoking Tobacco: Former Smokeless Tobacco: Never Alcohol Use Standard Drinks/Week Comments Yes 0 (1 standard drink = 0.6 oz pur e alcohol) Sex and Gender Information Value Date Recorded Sex Assigned at Not on file 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
--- OUTSIDE RECORDS SUMMARY | 2024-11-11 19:15 | XMS_ITS | Encounter Summary ---
Author Organization [facility] [employer] [facility] Address [address] [place] [address] Phone Care Team Providers Care Psychiatric Attendant Name Role Phone Kirstie Jarrell MD Primary Care Provider + Encounter Details Date Type Department Care Team (Late st Contact Info) Description 04/10/2019 Orders Only [facility] Gastroenterology [address] 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
--- OUTSIDE RECORDS SUMMARY | 2024-11-11 19:15 | XMS_ITS | Encounter Summary ---
Author Organization [facility] Address [address] [place] [address] Phone Care Team Providers Care Dumper Name Role Phone Kirstie Jarrell MD Primary Care Provider + Reason for Visit * Episode Based Medications (Routine) - Closed Specialty Diagnoses / Procedures Referred By Med bazan Referred To Contact Diagnoses Crohn's disease of small and large intestines with complication (HCC) Procedures [place] INJECTION, VEDOLIZUMAB Paulina Jones MD [address] [place] [address] Phone: tel: fax: [facility] Infusion Therapy [address] [place] [address] [address] [place] [address] Phone: tel: Referral ID Status Reason Start Date Expiration Date Visits Re quested Visits Authorized [id number] Closed 02/01/2019 02/16/2020 15 15 Encounter Details Date Type Department Care Team (Late st Contact Info) Description 03/09/2019 1:30 PM CDT Infusion [facility] Infusion Therapy [address] [place] [address] [address] [place] [address] Crohn's disease of small and large intestines with complication (CMS/HCC) (Primary Dx) Social History Tobacco Use Types Packs/Day Years Used Date Smoking Tobacco: Former Smokeless Tobacco: Never Alcohol Use Standard Drinks/Week Comments Yes 0 (1 standard drink = 0.6 oz pur e alcohol) Sex and Gender Information Value Date Recorded Sex Assigned at Not on file 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 Denies any symptoms of infection, fevers or recent surgery. Labs drawn with infusion today-CBC, LFTS. Patient tolerated infusion well. documented in this encounter Miscellaneous Notes * Addendum Note - Med Ray - 03/09/2019 1:30 PM CDTAddended by: MED RAY on: 03/09/2019 04:18 PM Modules accepted: Orders documented in this encounter Plan of Treatment Upcoming Encounters Date Type Department Care Team (Late st Contact Info) Description 11/09/2024 Plan of Care Documentation [facility] [address] [address] [address] [place] [address] documented as of this encounter Visit Diagnoses Diagnosis Crohn's disease of small and large intestines with complication (HCC)- Primary documented in this encounter Administered Medications Inactive Administered Medications - up to 3 most recent administrations Medication Order MAR Action Action Date Dose Rate Site sodium chloride 0.9% flush 10 mL 10 mL, intravenous, As needed, line care, Flush pre and post IV catheter use, Starting on Tue03/09/19 at 1338Indications:Crohn's disease of small and large intestines with complication (HCC) Given 03/09/2019 1:40 PM CDT 10 mL vedolizumab (ENTYVIO) 300 mg in sodium chloride 0.9% 250 mL IVPB 300 mg, intravenous, at 510 mL/hr, Administer over 30 Minutes, Once, On Tue03/09/19 at 1415, For 1 doseIndications:Crohn's disease of small and large intestines with complication (HCC) New Bag 03/09/2019 1:50 PM CDT 300 mg 510 mL/hr documented in this encounter Orders Nursing Count Last Ordered Date First Orde red Date ONCBCN NO PREMEDS NEEDED 1 03/09/2019 VITAL SIGNS PRE-INFUSION 1 03/09/2019 Appointment Requests Count Last Ordered Date Fi rst Ordered Date INFUSION APPT REQUEST 60 MIN 1 03/09/2019 documented in this encounter Care Teams Dumper Relationship Specialty Start Date End Date Kirstie Jarrell MD PCP - General 08/29/17 08/06/21 documented as of this encounter
--- OUTSIDE RECORDS SUMMARY | 2024-11-11 19:15 | XMS_ITS | Encounter Summary ---
Author Organization [facility] Address [address] [place] [address] Phone Care Team Providers Care Distributor Advertising Material Name Role Phone Kirstie Jarrell MD Primary Care Provider + Encounter Details Date Type Department Care Team (Late st Contact Info) Description 07/16/2019 3:00 PM CDT Lab [facility] Oncology [address] [address] [place] [address] Crohn's disease of small and large intestines with complication (CMS/HCC) Social History Tobacco Use Types Packs/Day Years Used Date Smoking Tobacco: Former Smokeless Tobacco: Never Alcohol Use Standard Drinks/Week Comments Yes 0 (1 standard drink = 0.6 oz pur e alcohol) Sex and Gender Information Value Date Recorded Sex Assigned at Not on file 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 Gender Identity Not on file Sexual Orientation Not on file documented as of this encounter Progress Notes * Paulina Jones MD - 07/16/2019 3:00 PM CDT CBC OK * Paulina Jones MD - 07/16/2019 3:00 PM CDT Cbc OK documented in this encounter Plan of Treatment Upcoming Encounters Date Type Department Care Team (Late st Contact Info) Description 11/09/2024 Plan of Care Documentation [address] [place] [address] documented as of this encounter Procedures Procedure Name Priority Date/Time Associated Diagnosis Comments CBC WITHOUT DIFFERENTIAL Routine 07/16/2019 2:52 PM CDT Crohn's disease of small and large intestines with complication (CMS/HCC) HEPATIC FUNCTION PANEL Routine 07/16/2019 2:52 PM CDT Crohn's disease of small and large intestines with complication (CMS/HCC) documented in this encounter Results * Hepatic function panel (07/16/2019 2:52 PM CDT) Bilirubin, total 0.7 0.1 - 1.2 mg/dL [facility] Bilirubin, direct <0.2 0.1 - 0.3 mg/dL [facility] Protein, pl 6.9 6.5 - 8.5 g/dL [facility] Albumin 4.2 3.5 - 5.0 g/dL [facility] Alk phos 56 40 - 130 Units/L [facility] ALT 51 7 - 55 Units/L [facility] AST 33 10 - 50 Units/L [facility] Blood specimen (specimen) 07/16/2019 2:52 PM CDT 07/16/2019 3:26 PM CDT us Paulina Jones MD LAB BLOOD ORDERABLE S Final Result [facility] [address] [facility] [place] [address] * CBC without differential (07/16/2019 2:52 PM CDT) WBC 7.5 3.8 - 9.9 K/cumm [facility] Hgb 14.5 13.0 - 17.5 g/dL [facility] Hct 43.4 38.9 - 50.3 % [facility] Plt 239 150 - 400 K/cumm [facility] MPV 10.8 9.1 - 12.3 fL [facility] RBC 4.57 4.30 - 5.80 M/cumm [facility] MCV 95.0 81.3 - 96.4 fL [facility] MCH 31.7 27.1 - 33.3 pg [facility] MCHC 33.4 32.3 - 35.7 g/dL [facility] RDW CV 12.9 11.1 - 14.9 % [facility] RDW SD 43.9 35.7 - 48.1 fL [facility] NRBC abs 0.00 0.00 - 0.01 K/cumm [facility] Blood specimen (specimen) 07/16/2019 2:52 PM CDT 07/16/2019 3:26 PM CDT us Paulina Jones MD LAB BLOOD ORDERABLE S Final Result [facility] [address] [address] [place] [address] documented in this encounter Visit Diagnoses Diagnosis Crohn's disease of small and large intestines with complication (HCC) documented in this encounter Care Teams Distributor Advertising Material Relationship Specialty Start Date End Date Kirstie Jarrell MD PCP - General 08/29/17 08/06/21 documented as of this encounter
--- OUTSIDE RECORDS SUMMARY | 2024-11-11 19:15 | XMS_ITS | Encounter Summary ---
Author Organization [facility] [employer] [facility] Address [address] [place] [address] Phone Care Team Providers Care Solar Consultant Name Role Phone Kirstie Jarrell MD Primary Care Provider + Encounter Details Date Type Department Care Team (Late st Contact Info) Description 05/17/2019 Orders Only [facility] Gastroenterology [facility] 8th [place] [address] [place] [address] Rita Lama RN Low vitamin D level (Primary Dx) Social History Tobacco Use Types Packs/Day Years Used Date Smoking Tobacco: Former Smokeless Tobacco: Never Alcohol Use Standard Drinks/Week Comments Yes 0 (1 standard drink = 0.6 oz pur e alcohol) Sex and Gender Information Value Date Recorded Sex Assigned at Not on file 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 Gender Identity Not on file Sexual Orientation Not on file documented as of this encounter Ordered Prescriptions Prescription Sig Dispense Quantity Refills Last Filled Start Date End Date ergocalciferol (VITAMIN D) 50,000 unit capsuleIndications :Low vitamin D level Take 1 cap PO monthly 12 capsule 05/17/2019 0 documented in this encounter Plan of Treatment Upcoming Encounters Date Type Department Care Team (Late st Contact Info) Description 11/09/2024 Plan of Care Documentation [address] [address] [address] [place] [address] documented as of this encounter Visit Diagnoses Diagnosis Low vitamin D level- Primary documented in this encounter Discontinued Medications Medication Sig Discontinue Reason Start Date End Da te ergocalciferol (VITAMIN D) 50,000 unit capsule TK ONE C PO MONTHLY Reorder 04/07/201805/17 documented as of this encounter Care Teams Solar Consultant Relationship Specialty Start Date End Date Kirstie Jarrell MD PCP - General 08/29/17 08/06/21 documented as of this encounter
--- OUTSIDE RECORDS SUMMARY | 2024-11-11 19:15 | XMS_ITS | Encounter Summary ---
Author Organization [facility] [employer] [facility] Address [address] [place] [address] Phone Care Team Providers Care Hemmer Automatic Name Role Phone Kirstie Jarrell MD Primary Care Provider + Encounter Details Date Type Department Care Team (Late st Contact Info) Description 02/27/2019 Documentation [facility] Gastroenterology [facility] 8th [place] [address] [place] [address] Brittney Herrera Social History Tobacco Use Types Packs/Day Years Used Date Smoking Tobacco: Former Smokeless Tobacco: Never Alcohol Use Standard Drinks/Week Comments Yes 0 (1 standard drink = 0.6 oz pur e alcohol) Sex and Gender Information Value Date Recorded Sex Assigned at Not on file 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 Gender Identity Not on file Sexual Orientation Not on file documented as of this encounter Progress Notes * Brittney Herrera, VIELKA - 02/27/2019 9:24 AM CDT From: Diana Kumar <[email or web address]> Sent: Wednesday, February 27, 2019 9:10 AM To: Brittney Herrera <[email or web address]>; Silvina Ruiz <[email or web address]>; Malaika Ivy <[email or web address]>; Patria Skaggs <[email or web address]>; Yair Watson <[email or web address]> Cc: Paulina Jones <[email or web address]>; Rita Lama <[email or web address]> Subject: RE: [SECURE] DANTE PERALTA Pre-Cert to every 6 weeks was confirmed and noted. Pt is already scheduled for the 6 week chelsea. documented in this encounter Plan of Treatment Upcoming Encounters Date Type Department Care Team (Late st Contact Info) Description 11/09/2024 Plan of Care Documentation [address] [place] [address] documented as of this encounter Visit Diagnoses Not on filedocumented in this encounter Care Teams Hemmer Automatic Relationship Specialty Start Date End Date Kirstie Jarrell MD PCP - General 08/29/17 08/06/21 documented as of this encounter
--- OUTSIDE RECORDS SUMMARY | 2024-11-11 19:15 | XMS_ITS | Encounter Summary ---
Author Organization [facility] Address [address] [place] [address] Phone Care Team Providers Care Manager Forensic Name Role Phone Kirstie Jarrell MD Primary Care Provider + Reason for Visit * Episode Based Medications (Routine) - Closed Specialty Diagnoses / Procedures Referred By Med bazan Referred To Contact Diagnoses Crohn's disease of small and large intestines with complication (HCC) Procedures [place] INJECTION, VEDOLIZUMAB Paulina Jones MD [address] [place] [address] Phone: tel: fax: [facility] Infusion Therapy [address] [place] [address] [address] [place] [address] Phone: tel: Referral ID Status Reason Start Date Expiration Date Visits Re quested Visits Authorized [id number] Closed 02/01/2019 02/16/2020 15 15 Encounter Details Date Type Department Care Team (Late st Contact Info) Description 01/23/2019 3:[address] 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 Denies any symptoms of infection, fevers or complaints. Feeling fine today. Labs drawn with IV start-CBC, LFTS. Patient tolerated infusion well. documented in this encounter Plan of Treatment Upcoming Encounters Date Type Department Care Team (Late st Contact Info) Description 11/09/2024 Plan of Care Documentation [address] [address] [address] [place] [address] documented as of this encounter Visit Diagnoses [...] and post IV catheter use, Starting on Tue01/23/19 at 1509Indications:Crohn's disease of small and large intestines with complication (HCC) Given 01/23/2019 3:15 PM CDT 10 mL vedolizumab (ENTYVIO) 300 mg in sodium chloride 0.9% 250 mL IVPB 300 mg, intravenous, at 510 mL/hr, Administer over 30 Minutes, Once, On Tue01/23/19 at 1545, For 1 doseIndications:Crohn's disease of small and large intestines with complication (HCC) New Bag 01/23/2019 3:30 PM CDT 300 mg 510 mL/hr documented in this encounter Orders Nursing Count Last Ordered Date First Orde red Date ONCBCN NO PREMEDS NEEDED 1 01/23/2019 VITAL SIGNS PRE-INFUSION 1 01/23/2019 Appointment Requests Count Last Ordered Date Fi rst Ordered Date INFUSION APPT REQUEST 60 MIN 1 01/23/2019 documented in this encounter Care Teams Manager Forensic Relationship Specialty Start Date End Date Kirstie Jarrell MD PCP - General 08/29/17 08/06/21 documented as of this encounter
--- OUTSIDE RECORDS SUMMARY | 2024-11-11 19:15 | XMS_ITS | Encounter Summary ---
Author Organization [facility] Address [address] [place] [address] Phone Care Team Providers Care Instrument Mechanic Weapons System Name Role Phone Kirstie Jarrell MD Primary Care Provider + Reason for Visit * Episode Based Medications (Routine) - Closed Specialty Diagnoses / Procedures Referred By Med bazan Referred To Contact Diagnoses Crohn's disease of small and large intestines with complication (HCC) Procedures NV INJECTION, VEDOLIZUMAB Paulina Jones MD [address] [place] [address] Phone: tel: fax: [facility] Therapy [address] [place] [address] [address] [place] [address] Phone: tel: Referral ID Status Reason Start Date Expiration Date Visits Re quested Visits Authorized [id number] Closed 02/01/2019 02/16/2020 15 15 Encounter Details Date Type Department Care Team (Late st Contact Info) Description 07/16/2019 12:30 PM CDT Infusion [facility] [address] [place] [address] [address] [place] [address] Crohn's disease of small and large intestines with complication (CMS/HCC) (Primary Dx) Social History Tobacco Use Types Packs/Day Years Used Date Smoking Tobacco: Former Smokeless Tobacco: Never Alcohol Use Standard Drinks/Week Comments Yes 0 (1 standard drink = 0.6 oz pur e alcohol) Sex and Gender Information Value Date Recorded Sex Assigned at Not on file 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 Patient denies any active infections or upcoming surgeries. PIV placed, labs obtained and dose infused. Patient tolerated infusion well. documented in this encounter Plan of Treatment Upcoming Encounters Date Type Department Care Team (Late st Contact Info) Description 11/09/2024 Plan of Care Documentation [address] [address] [address] [place] [address] documented as of this encounter Visit Diagnoses [...] and post IV catheter use, Starting on Tue07/16/19 at 1229Indications:Crohn's disease of small and large intestines with complication (HCC) Given 07/16/2019 12:45 PM CDT 10 mL vedolizumab (ENTYVIO) 300 mg in sodium chloride 0.9% 250 mL IVPB 300 mg, intravenous, at 510 mL/hr, Administer over 30 Minutes, Once, On Tue07/16/19 at 1300, For 1 doseIndications:Crohn's disease of small and large intestines with complication (HCC) New Bag 07/16/2019 12:45 PM CDT 300 mg 510 mL/hr documented in this encounter Orders Nursing Count Last Ordered Date First Orde red Date ONCBCN NO PREMEDS NEEDED 1 07/16/2019 VITAL SIGNS PRE-INFUSION 1 07/16/2019 Appointment Requests Count Last Ordered Date Fi rst Ordered Date INFUSION APPT REQUEST 60 MIN 1 07/16/2019 documented in this encounter Care Teams Instrument Mechanic Weapons System Relationship Specialty Start Date End Date Kirstie Jarrell MD PCP - General 08/29/17 08/06/21 documented as of this encounter
--- OUTSIDE RECORDS SUMMARY | 2024-11-11 19:15 | XMS_ITS | Encounter Summary ---
Author Organization [facility] Healthcare Address [address] [place] [address] Care Team Providers Care Grey Goods Marker Name Role Phone Kirstie Jarrell MD Primary Care Provider + Encounter Details Date Type Department Care Team (Late st Contact Info) Description 07/27/2019 8:00 AM CDT - 07/27/2019 8:30 AM CDT Surgery [facility] [address] [place] [address] Paulina Jones MD [address] [facility] [address] [place], [place] [id number] COLON DILATION 10R>STRICT Surgery Details Date/Time Status Location OR Service Patient Class Case Class Case Type Trauma Case? 07/27/2019 8:00 AM Posted [facility] ENDOSCOPY MGI 01 Gastroenterology Outpatient Elective Panel 1 Procedure LRB Anes Op Region Wound Class Comments COLON DILATION 10R>STRICT N/A Monitor Anesthesia Care Colon N/A Surgeon Surgeon Role Service Panel Paulina Jones MD Primary Gastroente rology 1 Mila Slaughter MD Fellow Gastroenterol ogy 1 documented in this encounter Social History Tobacco Use Types Packs/Day Years Used Date Smoking Tobacco: Former Cigarettes Q uit: 2005 Smokeless Tobacco: Never Alcohol Use Standard Drinks/Week Comments Yes 0 (1 standard drink = 0.6 oz pur e alcohol) occasional Sex and Gender Information Value Date Recorded Sex Assigned at Not on file 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 Gender Identity Not on file Sexual Orientation Not on file documented as of this encounter Last Filed Vital Signs Vital Sign Reading Time Taken Comments Blood Pressure 121/80 07/27/2019 8:30 AM CDT Pulse 65 07/27/2019 8:30 AM CDT Temperature 36.5 ??C (97.7 ??F) 07/27/2019 8:28 AM CD T Respiratory Rate 16 07/27/2019 8:28 AM CDT Oxygen Saturation 95% 07/27/2019 8:30 AM CDT Inhaled Oxygen Concentration - - Weight 115.7 kg (255 lb) 07/27/2019 7:38 AM CDT Height 190.5 cm (6' 3 ) 07/27/2019 7:38 AM CDT Body Mass Index 31.87 07/27/2019 7:38 AM CDT documented in this encounter Medications at Time of Discharge ergocalciferol (VITAMIN D) 50,000 unit capsuleIndications :Low vitamin D level Take 1 cap PO monthly 12 capsule 05/17/2019 0 folic acid (FOLVITE) 1 mg tabletIndications: Crohn's disease of both small and large intestine without complication (CMS/HCC) (HCC) Take 1 tablet (1 mg total) by mouth daily. 30 tablet 11 10/06/2018 9 budesonide (UCERIS) 2 mg/actuation foamIndications:Cr ohn's disease of both small and large intestine with intestinal obstruction (HCC) Insert into the rectum 1 metered dose(2 mg) twice daily for 2 weeks 1 Can 1 07/27/2019 0 neomycin-polymyxin -dexamethasone (MAXITROL) 3.5mg/mL-10,000 unit/mL-0.1 % ophthalmic suspension INSTILL 1 GTT TO OS BID 0 09/01/2018 1 ustekinumab (STELARA) injection Inject 1 mL (90 mg total) under the skin every 8 (eight) weeks SAFETY LABS REQUIRED EVERY 3 MONTHS FOR REFILLS DUE 10/2019 1 mL 5 07/27/2019 9 ustekinumab (STELARA) injection Inject 520 mg under the skin once Infusion 520 mg loading dose Stelara at [facility] 0 documented as of this encounter Discharge Disposition Disposition Code Departure Means Destination Discharge to home or self care documented in this encounter H&P Notes * Paulina Jones MD - 07/26/2019 8:24 AM CDT Pre Endoscopy History and Physical Ranjit Peralta is a 38 y.o. male who is here for Procedure(s): COLONOSCOPY The indication(s) for the procedure(s): IBD. Past Medical History: Diagnosis Date ??? Anal abscess Perianal abscess - (Added by TW Conv) ??? Anal fistula Anal fistula - (Added by TW Conv) ??? Crohn's disease (CMS/HCC) ??? Personal history of other diseases of the digestive system History of Crohn's disease - (Added by TW Conv) Past Surgical History: Procedure Laterality Date ??? ABCESS DRAINAGE 04/06/2013 ??? ANAL FISTULOTOMY 08/22/2013 Social History Tobacco Use ??? Smoking status: Former Smoker ??? Smokeless tobacco: Never Used Substance Use Topics ??? Alcohol use: Yes Family History Problem Relation Age of Onset ??? Diabetes Maternal Grandfather Family history of diabetes mellitus - (Added by TW Conv)/Family history of diabetes mellitus - (Added by TW Conv) ??? Cancer Maternal Grandmother No Known Allergies Prior to Admission medications Medication Sig Start Date End Date Taking? Authorizing Provider ANUCORT-HC 25 mg suppository Insert 1 suppository into the rectum 3 (three) times a week. 03/31/18 Historical Provider, budesonide 2 mg/actuation foam Use rectally one pump/spray one time daily 04/10/19 Paulina Jones MD ergocalciferol (VITAMIN D) 50,000 unit capsule Take 1 cap PO monthly 05/17/19 Paulina Jones MD folic acid (FOLVITE) 1 mg tablet Take 1 tablet (1 mg total) by mouth daily. 10/06/18 10/06/19 Izabela Gregory NP methotrexate 2.5 mg tablet Take 6 tablets by mouth one time weekly. Safety labs due with each Entyvio infusion 07/19/19 Paulina Jones MD cfphwyfm-jalrphbjn-gkbyqxvarkufv (MAXITROL) 3.5mg/mL-10,000 unit/mL-0.1 % ophthalmic suspension INSTILL 1 GTT TO OS BID 09/01/18 Historical Provider, nortriptyline (PAMELOR) 10 mg capsule Take 1 capsule (10 mg total) by mouth nightly. 07/04/18 Paulina Jones MD vedolizumab (ENTYVIO) 300 mg recon soln Infuse 300 mg into a venous catheter every 6 (six) weeks. Based on low drug level from 10/13/18 Historical Provider, Review of Systems A pertinent, focused review [...] Procedure Notes * Paulina Jones MD - 07/27/2019 8:01 AM CDTAssociated Order(s): COLONOSCOPY ENDOSCOPY LAB Patient Name: Ranjit Peralta Procedure Date: 07/27/2019 8:01 AM Date of : 1980 Admit Type: Outpatient Age: 38 Gender: Male Attending MD: Paulina Jones M.D. Room: [address] [place] [address] Note Status: Finalized Procedure: Colonoscopy Indications: High risk colon cancer surveillance: Crohn's colitis of 8 (or more) years duration, on Entyvio and MTX 15mg/wk Providers: Paulina Jones M.D., Mila Slaughter MD Referring MD: Kirstie Jarrell M.D. Medicines: Monitored Anesthesia Care Complications: No immediate complications. Estimated Blood Loss: Estimated blood loss: none. Procedure: Pre-Anesthesia Assessment: - Immediately prior to administration of medications, the patient was re-assessed for adequacy to receive sedatives. The benefits, risks and alternatives of the procedure and sedation were discussed and informed consent was obtained. All questions were answered. Please refer to the signed informed consent document in the medical record. The scope was passed under direct vision. The [id number] was introduced through the anus and advanced to 10 cm into the ileum. The colonoscopy was performed without difficulty. The patient tolerated the procedure well. The quality of the bowel preparation was evaluated using the BBPS (Carmi Bowel Preparation Scale) with scores of: Right Colon = 3, Transverse Colon = 3 and Left Colon = 3 (entire mucosa seen well with no residual staining, small fragments of stool or opaque liquid). The total BBPS score equals 9. Findings: The perianal and digital rectal examinations showed small area of induration. Ileocecal valve stricture dilated using CRE balloon dilator 18 mm. The scope was then advanced to 10 cm into the terminal ileum. There was scattered inflammation, graded as Rutgeerts Score i2 (more than five aphthous lesions with normal intervening mucosa or skip areas of larger lesions or lesions confined to the ileocolonic anastomosis) was found in the terminal ileum. There was also diffuse rectal ulceration with granularity and loss of vaculture. The inflammation extends from the anus to 5 cm . Impression: - Active disease in the terminal ileum and the rectum. The rest of the colon was normal. 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 - Discontinue entyvio and start stelara - Continue methotrexate Attending Participation: I personally performed the entire procedure. Electronically signed by Paulina Jones M.D. Paulina Jones M.D. 07/27/2019 8:38:01 AM Number of Addenda: 0 Note Initiated On: 07/27/2019 8:01 AM documented in this encounter Miscellaneous Notes * Pre-Procedure Instructions - Clara Townsend RN - 07/26/2019 4:21 PM CDT Come to [facility] hospital entrance and register at desk. Follow any and all instructions given to you re:bowel prep. 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 Leave any valuables at home including jewelry, mayes. Bring case for eye glasses. Dress comfortably. Please have ride arranged to and from hospital with a responsible adult-someone who knows you and that can care for you. Bring current medication list for review documented in this encounter Plan of Treatment Upcoming Encounters Date Type Department Care Team (Late st Contact Info) Description 11/09/2024 Plan of Care Documentation [facility] [address] [address] [address] [place] [address] documented as of this encounter Procedures Procedure Name Priority Date/Time Associated Diagnosis Comments COLON DILATION 10R>STRICT 07/27/2019 8:05 AM CDT Crohn's disease of small and large intestines with complication ([facility]) COLONOSCOPY 07/27/2019 8:01 AM CDT documented in this encounter Results * COLONOSCOPY (07/27/2019 8:01 AM CDT) Anatomical Region Laterality Modality Other Narrative Procedure Note Paulina Jones MD - 07/27/2019 8:01 AM CDT ENDOSCOPY LAB Patient Name: Ranjit Peralta Procedure Date: 07/27/2019 8:01 AM Date of : 1980 Admit Type: Outpatient Age: 38 Gender: Male Attending MD: Paulina Jones M.D. Room: [place] [address] Note Status: Finalized Procedure: Colonoscopy Indications: High risk colon cancer surveillance: Crohn's colitis of8 (or more) years duration, on Entyvio and MTX 15mg/wk Providers: Paulina Jones M.D., Mila Slaughter MD Referring MD: Kirstie Jarrell M.D. Medicines: Monitored Anesthesia Care Complications: No immediate complications. Estimated Blood Loss: Estimated blood loss: none. Procedure: Pre-Anesthesia Assessment: - Immediately prior to administration of medications,the patient was re-assessed for adequacy to receivesedatives. The benefits, risks and alternatives of the procedureand sedation were discussed and informed consent wasobtained. All questions were answered. Please refer to the signed informed consent document in the medical record. Thescope was passed under direct vision. The [id number] introduced through the anus and advanced to 10 cm intothe ileum. The colonoscopy was performed withoutdifficulty. The patient tolerated the procedure well. The qualityof the bowel preparation was evaluated using the BBPS(Carmi Bowel Preparation Scale) with scores of: Right Colon =3, Transverse Colon = 3 and Left Colon = 3 (entire mucosa seen well with no residual staining, small fragments of stool or opaque liquid). The total BBPS score equals9. Findings: The perianal and digital rectal examinations showed small area of induration. Ileocecal valve stricture dilated using CRE balloon dilator 18 mm.The scope was then advanced to 10 cm into the terminal ileum. There was scattered inflammation, graded as Rutgeerts Score i2 (more than five aphthous lesions with normal intervening mucosa or skipareas of larger lesions or lesions confined to the ileocolonic anastomosis) was found in the terminal ileum. There was also diffuse rectal ulceration with granularity and loss of vaculture. The inflammation extends from the anus to 5 cm . Impression: - Active disease in the terminal ileum and the rectum.The rest of the colon was normal. 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 - Discontinue entyvio and start stelara - Continue methotrexate Attending Participation: I personally performed the entire procedure. Electronically signed by Paulina Jones M.D. Paulina Jones M.D. 07/27/2019 8:38:01 AM Number of Addenda: 0 Note Initiated On: 07/27/2019 8:01 AM us Paulina Jones MD ENDOSCOPY PROCEDURE S Final Result documented in this encounter Visit Diagnoses Diagnosis Crohn's disease of small and large intestines with complication (HCC) documented in this encounter Administered Medications Inactive Administered Medications - up to 3 most recent administrations Medication Order MAR Action Action Date Dose Rate Site sodium chloride 0.9% flush 0.5-20 mL 0.5-20 mL, intra-catheter, As needed, line care, Starting on Tue07/27/19 at 0732, Pre-Procedure (GI), Flush volume based on line type and size. Flush before and after each use. , Indications: FlushingIndications:Flushing sodium chloride 0.9% infusion 30 mL/hr, intravenous, Continuous, Starting on Tue07/27/19 at 0815, Pre-Procedure (GI) Rate/Dose Verify 07/27/2019 8:07 AM CDT New Bag 07/27/2019 7:49 AM CDT 30 mL/hr 30 mL/hr documented in this encounter Discontinued Medications Medication Sig Discontinue Reason Start Date End Da te nortriptyline (PAMELOR) 10 mg capsule Take 1 capsule (10 mg total) by mouth nightly. Therapy completed 07/04/2018 07/27/2019 documented as of this encounter Active and Recently Administered Medications Times are shown in CDT. Continuous Medication Order 07/25/2019 07/26/2019 07/27/2019 sodium chloride 0.9% infusion 30 mL/hr, intravenous, Continuous, Starting on Tue07/27/19 at 0815, Pre-Procedure (GI) 0749 (New Bag - Prov ider: Eladia Razo RN)0807 (Rate/Dose Verify - Provider: Joan Gaitan CRNA)0828 (Anesthesia Volume Adjustment - Provider: Joan Gaitan CRNA)0848 (Stopped - Provider: Nurys Martínez RN) PRN Medication Order 07/25/2019 07/26/2019 07/27/2019 sodium chloride 0.9% flush 0.5-20 mL 0.5-20 mL, intra-catheter, As needed, line care, Starting on Tue07/27/19 at 0732, Pre-Procedure (GI), Flush volume based on line type and size. Flush before and after each use. , Indications: Flushing documented in this encounter Orders Medications Ordered That Steven ht Not Have Been Administered Count Last Ordered Date First Ordered Date sodium chloride 0.9% flush 0.5-20 mL 1 07/09 documented in this encounter Care Teams Grey Goods Marker Relationship Specialty Start Date End Date Kirstie Jarrell MD PCP - General 08/29/17 08/06/21 documented as of this encounter
--- OUTSIDE RECORDS SUMMARY | 2024-11-11 19:15 | XMS_ITS | Encounter Summary ---
Author Organization [facility] Address [address] [place] [address] Phone Care Team Providers Care Greige Goods Examiner Name Role Phone Kirstie Jarrell MD Primary Care Provider + Encounter Details Date Type Department Care Team (Late st Contact Info) Description 04/20/2019 3:00 PM CDT Lab [facility] Oncology [address] [address] [place] [id number] Crohn's disease of small and large intestines with complication (CMS/HCC) Social History Tobacco Use Types Packs/Day Years Used Date Smoking Tobacco: Former Smokeless Tobacco: Never Alcohol Use Standard Drinks/Week Comments Yes 0 (1 standard drink = 0.6 oz pur e alcohol) Sex and Gender Information Value Date Recorded Sex Assigned at Not on file 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 Gender Identity Not on file Sexual Orientation Not on file documented as of this encounter Progress Notes * Paulina oJnes MD - 04/20/2019 3:00 PM CDT CBC OK * Paulina Jones MD - 04/20/2019 3:00 PM CDT LFTs OK documented in this encounter Plan of Treatment Upcoming Encounters Date Type Department Care Team (Late st Contact Info) Description 11/09/2024 Plan of Care Documentation [address] [place] [address] documented as of this encounter Procedures Procedure Name Priority Date/Time Associated Diagnosis Comments T-SPOT.TB Routine 04/20/2019 2:47 PM CDT Crohn's disease of small and large intestines with complication (CMS/HCC) CBC WITHOUT DIFFERENTIAL Routine 04/20/2019 2:47 PM CDT Crohn's disease of small and large intestines with complication (CMS/HCC) HEPATIC FUNCTION PANEL Routine 04/20/2019 2:47 PM CDT Crohn's disease of small and large intestines with complication (CMS/HCC) documented in this encounter Results * TB test, T-SPOT (04/20/2019 2:47 PM CDT) Pathologist [facility] IFN-Gamma Release Assay TB See scanned report [facility] Blood specimen (specimen) 04/20/2019 2:47 PM CDT 04/24/2019 7:14 AM CDT us Paulina Jones MD LAB MICROBIOLOGY - GENERAL ORDERABLES Final Result [facility] [address] [facility]. Department of Laboratories [place], [place] [id number] * (ABNORMAL) Hepatic function panel (04/20/2019 2:47 PM CDT) Pathologist [facility] Bilirubin, total 0.6 0.1 - 1.2 mg/dL [facility] Bilirubin, direct <0.2 0.1 - 0.3 mg/dL [facility] Protein, pl 7.2 6.5 - 8.5 g/dL [facility] Albumin 4.4 3.5 - 5.0 g/dL [facility] Alk phos 59 40 - 130 Units/L [facility] ALT 58(H) 7 - 55 Units/L [facility] AST 38 10 - 50 Units/L [facility] Blood specimen (specimen) 04/20/2019 2:47 PM CDT 04/20/2019 2:47 PM CDT Narrative [facility] - 04/20/2019 3:19 PM CDT us Paulina Jones MD LAB BLOOD ORDERABLE S Final Result Performing Organization Address City/State/[facility] Co de Phone Number [facility] [address] [facility]. [facility] [employer] [place], [place] [id number] * CBC without differential (04/20/2019 2:47 PM CDT) WBC 6.7 3.8 - 9.9 K/cumm [facility] Hgb 14.8 13.0 - 17.5 g/dL [facility] Hct 44.3 38.9 - 50.3 % [facility] Plt 222 150 - 400 K/cumm [facility] MPV 10.9 9.1 - 12.3 fL [facility] RBC 4.82 4.30 - 5.80 M/cumm [facility] MCV 91.9 81.3 - 96.4 fL [facility] MCH 30.7 27.1 - 33.3 pg [facility] MCHC 33.4 32.3 - 35.7 g/dL [facility] RDW CV 12.5 11.1 - 14.9 % [facility] PAUL[facility] RDW SD 42.2 35.7 - 48.1 fL [facility] NRBC abs 0.00 0.00 - 0.01 K/cumm [facility] MILLER[facility] Blood specimen (specimen) 04/20/2019 2:47 PM CDT 04/24/2019 7:14 AM CDT Paulina Jones MD LAB BLOOD ORDERABLE S Edited Result - Final [facility] [address] [facility]. [place] [address] documented in this encounter Visit Diagnoses Diagnosis Crohn's disease of small and large intestines with complication (HCC) documented in this encounter Care Teams Greige Goods Examiner Relationship Specialty Start Date End Date Kirstie Jarrell MD PCP - General 08/29/17 08/06/21 documented as of this encounter
--- OUTSIDE RECORDS SUMMARY | 2024-11-11 19:15 | XMS_ITS | Encounter Summary ---
Author Organization [facility] Address [address] [place] [address] Care Team Providers Care Utility Mechanic Supervisor Name Role Phone Kirstie Jarrell MD Primary Care Provider + Encounter Details Date Type Department Care Team (Late st Contact Info) Description 07/27/2019 8:05 AM CDT Anesthesia Event [facility] Endoscopy [address] [place] [address] Richard Caldwell MD [address] [place] [address] Drew Olivares MD [address] [place] [address] Anesthesia Record Procedure Summary Procedure Name Responsible Anesthesiologist Anesthesia Start Time Anesthesia Stop Time COLON DILATION 10R>STRICT (Colon) Richard Caldwell MD 07/27/19 0805 07/27/19 0831 Events Date Time Event Comment 07/27/2019 0748 0802 AN Equip Check 0805 In Room 0805 An Start 0805 An Start Data 0806 Patient Positioned Laterally 0808 An Induction The patient was reevaluated immediately before moderate or deep sedation use and before anesthesia induction. 0810 Anesthesia Ready 0811 Proc Start 0825 Proc Fin 0827 Out of Room 0827 an stop data 0831 Handoff to RN I completed my handoff [...] disposition at the time of handoff: PACU 830 An Stop Meds Name Total lidocaine 1 % PF 50 mg propofol 400 mg fentaNYL PF 50 mcg sodium chloride 0.9% infusion 500 mL * Agents Name O2 * Blood No blood administrations on file. Lines, Drains, and Airways Type Details Placement Removal Peripheral IV Placement Date: 07/09 ; Placement Time: 743; Catheter Size: 22 G; Orientation: Right; Location: Wrist; Site Prep: Chlorhexidine; Removal Date: 07/27/19; Removal Time: 847; Removal Reason: Discharge 07/27/19 07 by Eladia Razo RN 07/27/19847 by Nurys Martínez RN documented in this encounter Social History Tobacco Use Types Packs/Day Years Used Date Smoking Tobacco: Former Cigarettes Q uit: 2004 Smokeless Tobacco: Never Alcohol Use Standard Drinks/Week Comments Yes 0 (1 standard drink = 0.6 oz pur e alcohol) occasional Sex and Gender Information Value Date Recorded Sex Assigned at Not on file 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 Gender Identity Not on file Sexual Orientation Not on file documented as of this encounter OR Notes * Anesthesia Postprocedure Evaluation - Richard Caldwell MD - 07/27/2019 10:18 AM CDT Patient: Ranjit Peralta Procedure Summary Date: 07/27/19 Room / Location: [facility] GI / [facility] ENDOSCOPY Anesthesia Start: 804 Anesthesia Stop: 830 Procedure: COLON DILATION 10R>STRICT (N/A Colon) Diagnosis: Crohn's disease of small and large intestines with complication (CMS/HCC) (Crohn's disease of small and large intestines) Provider: Paulina Jones MD Responsible Provider: Richard Caldwell MD Anesthesia Type: general ASA Status: 2 Anesthesia Type: general Last vitals BP 127/90 Pulse 64 Temp 36.5 ??C (97.7 ??F) (Temporal) Resp 16 SpO2 95% Anesthesia Post Evaluation Patient location during evaluation: PACU Patient participation: complete - patient participated Level of consciousness: fully awake Pain score: 0 Pain management: adequate Airway patency: adequate Evidence of recall: no Anesthetic complications: no Cardiovascular status: hemodynamically stable and acceptable Respiratory status: acceptable and room air Hydration status: acceptable Pt is: normothermic Nausea/Vomiting status: none * Anesthesia Preprocedure Evaluation - Richard Caldwell MD - 07/27/2019 7:48 AM CDT Images from the original note were not included. Anesthesia Evaluation Ranjit Peralta is a 38 y.o. male Procedure(s): COLONOSCOPY Pre-Op Diagnosis Codes: * Crohn's disease of small and large intestines with complication (CMS/HCC) [K50.819] Patient Active Problem List Diagnosis ??? Crohn's disease of both small and large intestine (CMS/HCC) ??? Crohn's disease with complication (CMS/HCC) ??? High risk medications (not anticoagulants) long-term use ??? Stricture intestinal (CMS/HCC) ??? Need for 23-polyvalent pneumococcal polysaccharide vaccine Past Medical History: Diagnosis Date ??? Anal abscess Perianal abscess - (Added by TW Conv) ??? Anal fistula Anal fistula - (Added by TW Conv) ??? Crohn's disease (CMS/HCC) Past Surgical History: Procedure Laterality Date ??? ABCESS DRAINAGE 04/06/2013 ??? ANAL FISTULOTOMY 08/22/2013 No Known Allergies Taking? Last Dose Start Date End Date Provider ANUCORT-HC 25 mg suppository 03/31/18 -- Historical Provider, budesonide 2 mg/actuation foam 04/10/19 -- Paulina Jones MD Use rectally one pump/spray one time daily ergocalciferol (VITAMIN D) 50,000 unit capsule 05/17/19 -- Paulina Jones MD Take 1 cap PO monthly folic acid (FOLVITE) 1 mg tablet 10/06/18 10/06/19 Izabela Weber NP Take 1 tablet (1 mg total) by mouth daily. methotrexate 2.5 mg tablet 07/19/19 -- Paulina Jones MD Take 6 tablets by mouth one time weekly. Safety labs due with each Entyvio infusion Notes: Dose change ulhdbyck-bzguzexyw-xbrhjakmfxfkr (MAXITROL) 3.5mg/mL-10,000 unit/mL-0.1 % ophthalmic suspension 09/01/18 -- Historical Provider, vedolizumab (ENTYVIO) 300 mg recon soln -- -- Historical Provider, Current Facility-Administered Medications: ??? sodium chloride 0.9% flush 0.5-20 mL, 0.5-20 mL, intra-catheter, PRN ??? sodium chloride 0.9% infusion, 30 mL/hr, intravenous, Continuous Social History Tobacco Use Smoking Status Former Smoker ??? Last attempt to quit: 2004 ??? Years since quittin.7 Smokeless Tobacco Never Used Substance and Sexual Activity Alcohol Use Yes Comment: occasional Substance and Sexual Activity Drug Use No Family History Problem Relation Age of Onset ??? Diabetes Maternal Grandfather Family history of diabetes mellitus - (Added by TW Conv)/Family history of diabetes mellitus - (Added by TW Conv) ??? Cancer Maternal Grandmother PAT Physical Exam Vitals: 07/27/19 0738 BP: 154/84 Pulse: 63 Resp: 16 Temp: 36 ??C (96.8 ??F) SpO2: 97% PT: No results found for requested labs within last 720 hours. INR: No results found for requested labs within last 720 hours. APTT: No results found for requested labs within last 720 hours. Hgb A1C: No results found for requested labs within last 720 hours. CBC RBC: 07/16/2019: 4.57 M/cumm RDW: No results found for requested labs within last 720 hours. MCHC: 07/16/2019: 33.4 g/dL MCH: 07/16/2019: 31.7 pg MCV: 07/16/2019: 95.0 fL Hct: 07/16/2019: 43.4 % Hgb: 07/16/2019: 14.5 g/dL WBC: 07/16/2019: 7.5 K/cumm MPV: 07/16/2019: 10.8 fL Platelets: 07/16/2019: 239 K/cumm RDW CV: 07/16/2019: 12.9 % RDW Sd: 07/16/2019: 43.9 fL BMP Glucose: No results found for [...] for requested labs within last 720 hours. STOP-Bang Total Score: 1 DOS Physical Exam Medical history, medications, and allergies reviewed. Attestation: This PAT evaluation Airway Exam: Mallampati: II Cervical ROM: FROM Cardiovascular Exam: Rate: regular Rhythm: regular Pulmonary Exam: LCTA, bilat Anesthesia Plan ASA 2 My patient is approved for the Anesthesia Controlled Medication protocol when under care of a CRYSTAL CALIBRATOR Planned anesthesia: General Informed Consent: Anesthesia plan [...] 11/09/2024 Plan of Care Documentation [address] [address] [address] [place] [address] documented as of this encounter Visit Diagnoses Not on filedocumented in this encounter Administered Medications Inactive Administered Medications - up to 3 most recent administrations Medication Order MAR Action Action Date Dose Rate Site fentaNYL (SUBLIMAZE) preservative free injection intravenous, As needed, Starting on Tue07/27/19 at 0808, Anesthesia Intra-op Given 07/27/2019 8:08 AM CDT 50 mcg lidocaine PF (XYLOCAINE) 10 mg/mL (1 %) preservative free injection As needed, Starting on Tue07/27/19 at 0808, Anesthesia Intra-op Given 07/27/2019 8:08 AM CDT 50 mg propofol (DIPRIVAN) IV intravenous, As needed, Starting on Tue07/27/19 at 0808, Anesthesia Intra-op Given 07/27/2019 8:24 AM CDT 40 mg Given 07/27/2019 8:21 AM CDT 40 mg Given 07/27/2019 8:19 AM CDT 20 mg sodium chloride 0.9% infusion 30 mL/hr, intravenous, Continuous, Starting on Tue07/27/19 at 0815, Pre-Procedure (GI) Rate/Dose Verify 07/27/2019 8:07 AM CDT New Bag 07/27/2019 7:49 AM CDT 30 mL/hr 30 mL/hr documented in this encounter Care Teams Utility Mechanic Supervisor Relationship Specialty Start Date End Date Kirstie Jarrell MD PCP - General 08/29/17 08/06/21 documented as of this encounter
--- OUTSIDE RECORDS SUMMARY | 2024-11-11 19:15 | XMS_ITS | Encounter Summary ---
Author Organization [facility] Address [address] [place] [address] Phone Care Team Providers Care Loan Workout Officer Name Role Phone Kirstie Jarrell MD Primary Care Provider + Reason for Visit * Episode Based Medications (Routine) - Closed Specialty Diagnoses / Procedures Referred By Med bazan Referred To Contact Diagnoses Crohn's disease of small and large intestines with complication (HCC) Procedures LA INJECTION, VEDOLIZUMAB Paulina Jones MD [address] [place] [address] Phone: tel: fax: [facility] Infusion Therapy [address] [place] [address] [address] [place] [address] Phone: tel: Referral ID Status Reason Start Date Expiration Date Visits Re quested Visits Authorized [id number] Closed 02/01/2019 02/16/2020 15 15 Encounter Details Date Type Department Care Team (Late st Contact Info) Description 06/01/2019 12:30 PM CDT Infusion [facility] Infusion Therapy [address] [place] [address] [address] [place] [address] Crohn's disease of small and large intestines with complication (CMS/HCC) (Primary Dx) Social History Tobacco Use Types Packs/Day Years Used Date Smoking Tobacco: Former Smokeless Tobacco: Never Alcohol Use Standard Drinks/Week Comments Yes 0 (1 standard drink = 0.6 oz pur e alcohol) Sex and Gender Information Value Date Recorded Sex Assigned at Not on file 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 documented in this encounter Miscellaneous Notes * Addendum Note - Fabio Ray - 06/01/2019 12:30 PM CDTAddended by: FABIO RAY on: 06/01/2019 02:42 PM Modules accepted: Orders documented in this encounter Plan of Treatment Upcoming Encounters Date Type Department Care Team (Late st Contact Info) Description 11/09/2024 Plan of Care Documentation [address] [address] [address] [place] [address] documented as of this encounter Visit Diagnoses [...] and post IV catheter use, Starting on Tue06/01/19 at 1238Indications:Crohn's disease of small and large intestines with complication (HCC) Given 06/01/2019 12:45 PM CDT 10 mL vedolizumab (ENTYVIO) 300 mg in sodium chloride 0.9% 250 mL IVPB 300 mg, intravenous, at 510 mL/hr, Administer over 30 Minutes, Once, On Tue06/01/19 at 1315, For 1 doseIndications:Crohn's disease of small and large intestines with complication (HCC) New Bag 06/01/2019 12:58 PM CDT 300 mg 510 mL/hr documented in this encounter Orders Nursing Count Last Ordered Date First Orde red Date VITAL SIGNS PRE-INFUSION 1 06/01/2019 Appointment Requests Count Last Ordered Date Fi rst Ordered Date INFUSION APPT REQUEST 60 MIN 1 06/01/2019 documented in this encounter Care Teams Loan Workout Officer Relationship Specialty Start Date End Date Kirstie Jarrell MD PCP - General 08/29/17 08/06/21 documented as of this encounter
--- OUTSIDE RECORDS SUMMARY | 2024-11-11 19:15 | XMS_ITS | Encounter Summary ---
Author Organization [facility] [employer] [facility] Address [address] [place] [address] Phone Care Team Providers Care Financial Services Representative Name Role Phone Kirstie Jarrell MD Primary Care Provider + Encounter Details Date Type Department Care Team (Late Contact Info) Description 12/11/2018 Orders Only [facility] 8th [place] [address] [place] [address] Rita Lama, SANDRA Crohn's disease of both small and large intestine without complication (CMS/HCC) Social History Tobacco Use Types Packs/Day Years Used Date Smoking Tobacco: Former Smokeless Tobacco: Never Alcohol Use Standard Drinks/Week Comments Yes 0 (1 standard drink = 0.6 oz pur e alcohol) Sex and Gender Information Value Date Recorded Sex Assigned at Not on file 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 Safety labs due with each infusion 120 tablet 1 12/11/2018 9 documented in this encounter Plan of Treatment Upcoming Encounters Date Type Department Care Team (Late st Contact Info) Description 11/09/2024 Plan of Care Documentation [address] [place] [address] documented as of this encounter Visit Diagnoses Diagnosis Crohn's disease of both small and large intestine without complication (CMS/HCC) (HCC) documented in this encounter Discontinued Medications Medication Sig Discontinue Reason Start Date End Da te methotrexate 2.5 mg tabletIndications:Crohn' s disease of both small and large intestine without complication (CMS/HCC) (HCC) Take 10 tablets by mouth one time weekly. Safety labs due with each infusion Reorder 10/17/2018 12/11/2018 documented as of this encounter Care Teams Financial Services Representative Relationship Specialty Start Date End Date Kirstie Jarrell MD PCP - General 08/29/17 08/06/21 documented as of this encounter
--- OUTSIDE RECORDS SUMMARY | 2024-11-11 19:15 | XMS_ITS | Encounter Summary ---
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
--- OUTSIDE RECORDS SUMMARY | 2024-11-11 19:15 | XMS_ITS | Encounter Summary ---
Author Organization [facility] Address [address] [place] [address] Phone Care Team Providers Care Steam Box Operator Name Role Phone Kirstie Jarrell MD Primary Care Provider + Encounter Details Date Type Department Care Team (Late st Contact Info) Description 03/09/2019 4:30 PM CDT Lab [facility] Oncology [address] [facility] [address] [facility] [place] [id number] Crohn's disease of small and large intestines with complication (CMS/HCC) Social History Tobacco Use Types Packs/Day Years Used Date Smoking Tobacco: Former Smokeless Tobacco: Never Alcohol Use Standard Drinks/Week Comments Yes 0 (1 standard drink = 0.6 oz pur e alcohol) Sex and Gender Information Value Date Recorded Sex Assigned at Not on file 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 Gender Identity Not on file Sexual Orientation Not on file documented as of this encounter Progress Notes * Paulina Jones MD - 03/09/2019 4:30 PM CDT CBC and LFTs OK documented in this encounter Plan of Treatment Upcoming Encounters Date Type Department Care Team (Late st Contact Info) Description 11/09/2024 Plan of Care Documentation [facility] [address] [address] [address] [place] [address] documented as of this encounter Procedures Procedure Name Priority Date/Time Associated Diagnosis Comments DIFFERENTIAL AUTO Routine 03/09/2019 3:3 0 PM CDT Crohn's disease of small and large intestines with complication (CMS/HCC) CBC WITH AUTO DIFFERENTIAL Routine 03/09/2019 3:30 PM CDT Crohn's disease of small and large intestines with complication (CMS/HCC) HEPATIC FUNCTION PANEL Routine 03/09/2019 3:30 PM CDT Crohn's disease of small and large intestines with complication (CMS/HCC) documented in this encounter Results * Differential, auto (03/09/2019 3:30 PM CDT) Neutrophil abs 4.2 1.7 - 6.5 K/cumm [facility] Imm gran abs 0.0 0.0 - 0.1 K/cumm [facility] Lymphocyte abs 2.3 0.8 - 3.3 K/cumm [facility] Monocyte abs 0.6 0.2 - 0.8 K/cumm [facility] Eosinophil abs 0.1 0.0 - 0.5 K/cumm [facility] Basophil abs 0.0 0.0 - 0.1 K/cumm [facility] Neutrophil pct 57.5 % [facility] Comment: Interpretive Data Percent cell count reference ranges are not reported, since discordance with absolute values may lead to misinterpretation of CBC data. Current Interpretive Data was last revised on 2018. Imm gran pct 0.3 % [facility] Comment: Interpretive Data Percent cell count reference ranges are not reported, since discordance with absolute values may lead to misinterpretation of CBC data. Current Interpretive Data was last revised on 2018. Lymphocyte pct 32.1 % [facility] Comment: Interpretive Data Percent cell count reference ranges are not reported, since discordance with absolute values may lead to misinterpretation of CBC data. Current Interpretive Data was last revised on 2018. Monocyte pct 8.0 % [facility] Comment: Interpretive Data Percent cell count reference ranges are not reported, since discordance with absolute values may lead to misinterpretation of CBC data. Current Interpretive Data was last revised on 2018. Eosinophil pct 1.7 % [facility] Comment: Interpretive Data Percent cell count reference ranges are not reported, since discordance with absolute values may lead to misinterpretation of CBC data. Current Interpretive Data was last revised on 2018. Basophil pct 0.4 % [facility] Comment: Interpretive Data Percent cell count reference ranges are not reported, since discordance with absolute values may lead to misinterpretation of CBC data. Current Interpretive Data was last revised on 2018. Blood specimen (specimen) 03/09/2019 3:30 PM CDT 03/09/2019 4:50 PM CDT Narrative ALDO MONTELONGO - 03/09/2019 5:00 PM CDT Paulina Jones MD LAB BLOOD ORDERABLE S Final Result [facility] [address] [facility]. Department [place] [address] * (ABNORMAL) Hepatic function panel (03/09/2019 3:30 PM CDT) Bilirubin, total 1.0 0.1 - 1.2 mg/dL [facility] Bilirubin, direct <0.2 0.1 - 0.3 mg/dL [facility] Protein, pl 7.6 6.5 - 8.5 g/dL [facility] Albumin 4.6 3.5 - 5.0 g/dL [facility] Alk phos 56 40 - 130 Units/L [facility] ALT 62(H) 7 - 55 Units/L [facility] AST 43 10 - 50 Units/L [facility] Comment:Hemolyzed; results m ay be falsely elevated. Blood specimen (specimen) 03/09/2019 3:30 PM CDT 03/09/2019 4:50 PM CDT Narrative ALDO MONTELONGOCH - 03/09/2019 6:19 PM CDT Paulina Jones MD LAB BLOOD ORDERABLE S Final Result Performing Organization Address City/[facility]/ZIP Co de Phone Number ALDO GO [address] [address] [place] [address] * CBC with auto differential (03/09/2019 3:30 PM CDT) WBC 7.2 3.8 - 9.9 K/cumm [facility] Hgb 14.5 13.0 - 17.5 g/dL [facility] Hct 43.9 38.9 - 50.3 % [facility] Plt 239 150 - 400 K/cumm [facility] MPV 10.4 9.1 - 12.3 fL [facility] RBC 4.68 4.30 - 5.80 M/cumm [facility] MCV 93.8 81.3 - 96.4 fL [facility] MCH 31.0 27.1 - 33.3 pg [facility] MCHC 33.0 32.3 - 35.7 g/dL [facility] RDW CV 12.8 11.1 - 14.9 % [facility] RDW SD 43.8 35.7 - 48.1 fL [facility] NRBC abs 0.00 0.00 - 0.01 K/cumm [facility] Blood specimen (specimen) 03/09/2019 3:30 PM CDT 03/09/2019 4:50 PM CDT Narrative [facility] - 03/09/2019 5:00 PM CDT Paulina Jones MD LAB BLOOD ORDERABLE S Final Result [facility]ONGO[facility] [address] [facility] [place] [address] documented in this encounter Visit Diagnoses Diagnosis Crohn's disease of small and large intestines with complication (HCC) documented in this encounter Care Teams Steam Box Operator Relationship Specialty Start Date End Date Kirstie Jarrell MD PCP - General 08/29/17 08/06/21 documented as of this encounter
--- OUTSIDE RECORDS SUMMARY | 2024-11-11 19:15 | XMS_ITS | Encounter Summary ---
Author Organization [facility] [email or web address] [facility] Address [address] [place] [address] Phone Care Team Providers Care Transmitter Engineer In Charge Name Role Phone Kirstie Jarrell MD Primary Care Provider + Encounter Details Date Type Department Care Team (Late Contact Info) Description 07/19/2019 Orders Only [facility] Gastroenterology [address] [place] [address] [place] [address] Rita Lama RN Crohn's disease of both small and large intestine without complication (CMS/[facility]) Social History Tobacco Use Types Packs/Day Years [...] 2.5 mg tabletIndications: Inflammatory Bowel Disease Take 6 tablets by mouth one time weekly. Safety labs due with each Entyvio infusion 24 tablet 2 07/19/2019 9 documented in this encounter Plan of Treatment Upcoming Encounters Date Type Department Care Team (Late st Contact Info) Description 11/09/2024 Plan of Care Documentation [address] [address] [address] [place] [address] documented as of this encounter Visit Diagnoses Diagnosis Crohn's disease of both small and large intestine without complication (CMS/HCC) (HCC) documented in this encounter Discontinued Medications Medication Sig Discontinue Reason Start Date End Da te methotrexate 2.5 mg tabletIndications:Infla mmatory Bowel Disease Take 6 tablets by mouth one time weekly. Safety labs due with each Entyvio infusion Reorder 07/16/2019 07/19/2019 documented as of this encounter Care Teams Transmitter Engineer In Charge Relationship Specialty Start Date End Date Kirstie Jarrell MD PCP - General 08/29/17 08/06/21 documented as of this encounter
--- OUTSIDE RECORDS SUMMARY | 2024-11-11 19:15 | XMS_ITS | Encounter Summary ---
Author Organization [facility] Healthcare Address [address] [place] [address] Care Team Providers Care Electrophysiology Scientist Name Role Phone Kirstie Jarrell MD Primary Care Provider + Encounter Details Date Type Department Care Team (Late st Contact Info) Description 07/27/2019 7:09 AM CDT - 07/27/2019 9:22 AM CDT Hospital Encounter [facility] Endoscopy [address] [place] [address] Paulina Jones MD [address] [facility] [address] [place], [place] [id number] Discharge Disposition: Discharge to home or self care Social History Tobacco Use Types Packs/Day Years Used Date Smoking Tobacco: Former Cigarettes Q uit: 2005 Smokeless Tobacco: Never Alcohol Use Standard Drinks/Week Comments Yes 0 (1 standard drink = 0.6 oz pur e alcohol) occasional Sex and Gender Information Value Date Recorded Sex Assigned at Not on file 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 Gender Identity Not on file Sexual Orientation Not on file documented as of this encounter Last Filed Vital Signs Vital Sign Reading Time Taken Comments Blood Pressure 127/90 07/27/2019 8:50 AM CDT Pulse 64 07/27/2019 8:50 AM CDT Temperature 36.5 ??C (97.7 ??F) 07/27/2019 8:28 AM CD T Respiratory Rate 16 07/27/2019 8:50 AM CDT Oxygen Saturation 95% 07/27/2019 8:30 AM CDT Inhaled Oxygen Concentration - - Weight 115.7 kg (255 lb) 07/27/2019 7:38 AM CDT Height 190.5 cm (6' 3 ) 07/27/2019 7:38 AM CDT Body Mass Index 31.87 07/27/2019 7:38 AM CDT documented in this encounter Discharge Diagnoses Diagnosis Encounter for screening for malignant neoplasm of colon - ENCOUNTER FOR SCREENING FOR MALIGNANT NEOPLASM OF COLON Crohn's disease with complication (HCC) - CROHN'S DISEASE, UNSPECIFIED, WITH UNSPECIFIED COMPLICATIONS Other intestinal obstruction unspecified as to partial versus complete obstruction (HCC) - OTHER INTESTINAL OBSTRUCTION UNSPECIFIED TO PARTIAL VERSUS COMPLETE OBSTRUCTION Other joint terminal attack controller (current) drug therapy - OTHER TICKETING AGENT (CURRENT) DRUG THERAPY Personal history of nicotine dependence - PERSONAL HISTORY OF NICOTINE DEPENDENCE documented in this encounter Medications at Time [...] Infusion 520 mg loading dose Stelara at [facility] infusion Center 0 documented as of this [...] each Entyvio infusion 07/19/19 Paulina Jones MD alinzgil-hcsvdbtzg-vddcxiquewcki (MAXITROL) 3.5mg/mL-10,000 unit/mL-0.1 % ophthalmic suspension INSTILL [...] Male Attending MD: Paulina Jones M.D. Room: [facility] Note Status: Finalized Procedure: Colonoscopy Indications: High [...] scope was passed under direct vision. The [id number] was introduced through the anus and advanced to 10 cm into the ileum. The colonoscopy was performed without difficulty. The patient tolerated the procedure well. The quality of the bowel preparation was evaluated using the BBPS (Thayer Bowel Preparation Scale) with scores of: Right [...] - 07/26/2019 4:21 PM CDT Come to [facility] hospital entrance and register at desk. Follow any and all instructions given to you re:bowel prep. Bring set key driver's license or photo ID, insurance cards. [...] Info) Description 11/09/2024 Plan of Care Documentation [facility] - [address] [place] [address] documented as of this encounter Procedures Procedure Name Priority Date/Time Associated Diagnosis Comments COLON DILATION 10R>STRICT 07/27/2019 8:05 AM CDT Crohn's disease of small and large intestines with complication (CMS/HCC) COLONOSCOPY 07/27/2019 8:01 AM CDT documented in this encounter Results * COLONOSCOPY (07/27/2019 8:01 AM CDT) Anatomical Region Laterality Modality Other Narrative Procedure Note Paulina Jones MD - 07/27/2019 8:01 AM CDT ENDOSCOPY LAB Patient Name: Ranjit Peralta Procedure Date: 07/27/2019 8:01 AM Date of : 1980 Admit Type: Outpatient Age: 38 Gender: Male Attending MD: Paulina Jones M.D. Room: [facility] 01 Note Status: Finalized Procedure: Colonoscopy Indications: [...] Thescope was passed under direct vision. The [id number] introduced through the anus and advanced to 10 cm intothe ileum. The colonoscopy was performed withoutdifficulty. The patient tolerated the procedure well. The qualityof the bowel preparation was evaluated using the BBPS(Thayer Bowel Preparation Scale) with scores of: Right [...] 07/09 documented in this encounter Care Teams Electrophysiology Scientist Relationship Specialty Start Date End Date Kirstie Jarrell MD PCP - General 08/29/17 08/06/21 documented as of this encounter
--- OUTSIDE RECORDS SUMMARY | 2024-11-11 19:15 | XMS_ITS | Encounter Summary ---
Author Organization [facility] Address [address] [place] [address] Phone Care Team Providers Care Tool And Die Repairer Name Role Phone Kirstie Jarrell MD Primary Care Provider + Encounter Details Date Type Department Care Team (Late st Contact Info) Description 02/22/2019 Documentation [facility] Gastroenterology [facility] 8th [place] [address] [place] [address] Brittney Herrera Social History Tobacco Use Types Packs/Day Years Used Date Smoking Tobacco: Former Smokeless Tobacco: Never Alcohol Use Standard Drinks/Week Comments Yes 0 (1 standard drink = 0.6 oz pur e alcohol) Sex and Gender Information Value Date Recorded Sex Assigned at Not on file 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 If you want to schedule a peer to peer please call ref# [id number]. * Brittney Herrera MA - 02/22/2019 9:04 AM CDT Peer to peer scheduled for 02/26 at 330 pm. documented in this encounter Plan of Treatment Upcoming Encounters Date Type Department Care Team (Late st Contact Info) Description 11/09/2024 Plan of Care Documentation [address] [address] [address] [place] [address] documented as of this encounter Visit Diagnoses Not on filedocumented in this encounter Care Teams Tool And Die Repairer Relationship Specialty Start Date End Date Kirstie Jarrell MD PCP - General 08/29/17 08/06/21 documented as of this encounter
--- OUTSIDE RECORDS SUMMARY | 2024-11-11 19:15 | XMS_ITS | Encounter Summary ---
Author Organization [facility] Address [address] [place] [address] Phone Care Team Providers Care Card Table Attendant Name Role Phone Kirstie Jarrell MD Primary Care Provider + Encounter Details Date Type Department Care Team (Late st Contact Info) Description 04/03/2019 Orders Only [facility] Gastroenterology [address] [facility] Medical Office Building [address] [place] [address] Izabela Gregory NP [address] [place] [address] Social History Tobacco Use Types Packs/Day Years Used Date Smoking Tobacco: Former Smokeless Tobacco: Never Alcohol Use Standard Drinks/Week Comments Yes 0 (1 standard drink = 0.6 oz pur e alcohol) Sex and Gender Information Value Date Recorded Sex Assigned at Not on file 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
--- OUTSIDE RECORDS SUMMARY | 2024-11-11 19:15 | XMS_ITS | Encounter Summary ---
Author Organization [facility] Address [address] [place] [address] Phone Care Team Providers Care Setter Helper Name Role Phone Kirstie Jarrell MD Primary Care Provider + Encounter Details Date Type Department Care Team (Late st Contact Info) Description 06/01/2019 7:00 AM CDT Lab [facility] Oncology [address] [phone] Crohn's disease of small and large intestines with complication (CMS/HCC) Social History Tobacco Use Types Packs/Day Years Used Date Smoking Tobacco: Former Smokeless Tobacco: Never Alcohol Use Standard Drinks/Week Comments Yes 0 (1 standard drink = 0.6 oz pur e alcohol) Sex and Gender Information Value Date Recorded Sex Assigned at Not on file 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 Any new vitamins? ETOH? Recent viral illness? Left message for the patient on his voicemail documented in this encounter Plan of Treatment Upcoming Encounters Date Type Department Care Team (Late st Contact Info) Description 11/09/2024 Plan of Care Documentation [address] [place] [address] documented as of this encounter Procedures Procedure Name Priority Date/Time Associated Diagnosis Comments CBC WITHOUT DIFFERENTIAL Routine 06/01/2019 12:50 PM CDT Crohn's disease of small and large intestines with complication (CMS/HCC) HEPATIC FUNCTION PANEL Routine 06/01/2019 12:50 PM CDT Crohn's disease of small and large intestines with complication (CMS/HCC) documented in this encounter Results * (ABNORMAL) Hepatic function panel (06/01/2019 12:50 PM CDT) Bilirubin, total 0.9 0.1 - 1.2 mg/dL [facility] Bilirubin, direct 0.2 0.1 - 0.3 mg/dL [facility] Protein, pl 7.1 6.5 - 8.5 g/dL [facility] Albumin 4.5 3.5 - 5.0 g/dL [facility] Alk phos 49 40 - 130 Units/L [facility] ALT 109(H) 7 - 55 Units/L [facility] AST 63(H) 10 - 50 Units/L [facility] Blood specimen (specimen) 06/01/2019 12:50 PM CDT 06/01/2019 3:13 PM CDT us Paulina Jones MD LAB BLOOD ORDERABLE S Final Result [facility] [id number] [facility]. Department [place] [address] * CBC without differential (06/01/2019 12:50 PM CDT) WBC 9.1 3.8 - 9.9 K/cumm [facility] Hgb 14.0 13.0 - 17.5 g/dL [facility] Hct 42.2 38.9 - 50.3 % [facility] Plt 241 150 - 400 K/cumm [facility] MPV 10.4 9.1 - 12.3 fL [facility] GO RBC 4.45 4.30 - 5.80 M/cumm [facility] GO MCV 94.8 81.3 - 96.4 fL [facility] GO MCH 31.5 27.1 - 33.3 pg [facility] GO MCHC 33.2 32.3 - 35.7 g/dL [facility] RDW CV 12.7 11.1 - 14.9 % [facility] RDW SD 43.5 35.7 - 48.1 fL [facility] NRBC abs 0.00 0.00 - 0.01 K/cumm [facility] Blood specimen (specimen) 06/01/2019 12:50 PM CDT 06/01/2019 3:13 PM CDT us Paulina Jones MD LAB BLOOD ORDERABLE S Final Result [facility] [id number] [facility]. Department [place] [address] documented in this encounter Visit Diagnoses Diagnosis Crohn's disease of small and large intestines with complication (HCC) documented in this encounter Care Teams Setter Helper Relationship Specialty Start Date End Date Kirstie Jarrell MD PCP - General 08/29/17 08/06/21 documented as of this encounter
--- OUTSIDE RECORDS SUMMARY | 2024-11-11 19:15 | XMS_ITS | Encounter Summary ---
Author Organization [facility] [employer] [facility] Address [address] [place] [address] Phone Care Team Providers Care Bookmaker Map Name Role Phone Kirstie Jarrell MD Primary Care Provider + Encounter Details Date Type Department Care Team (Late st Contact Info) Description 07/27/2019 Orders Only 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 Gender Identity Not on file Sexual Orientation Not on file documented as of this encounter Ordered Prescriptions Prescription Sig Dispense Quantity Refills Last Filled Start Date End Date methotrexate 2.5 mg tabletIndications: Inflammatory Bowel Disease Take 10 tabs PO one day per week SAFETY LABS REQUIRED EVERY 3 MONTHS FOR REFILLS DUE 10/2019 40 tablet 2 07/27/2019 0 ustekinumab (STELARA) injection Inject 1 mL (90 mg total) under the skin every 8 (eight) weeks SAFETY LABS REQUIRED EVERY 3 MONTHS FOR REFILLS DUE 10/2019 1 mL 5 07/27/2019 9 budesonide (UCERIS) 2 mg/actuation foamIndications:Cr ohn's disease of both small and large intestine with intestinal obstruction (HCC) Insert into the rectum 1 metered dose(2 mg) twice daily for 2 weeks 1 Can 1 07/27/2019 0 documented in this encounter Plan of Treatment Upcoming Encounters Date Type Department Care Team (Late st Contact Info) Description 11/09/2024 Plan of Care Documentation [address] [place] [address] documented as of this encounter Visit Diagnoses Diagnosis Crohn's disease of both small and large intestine with intestinal obstruction (HCC)- Primary documented in this encounter Discontinued Medications Medication Sig Discontinue Reason Start Date End Da te vedolizumab (ENTYVIO) 300 mg recon soln Infuse 300 mg into a venous catheter every 6 (six) weeks. Based on low drug level from 10/13/18 Therapy completed 07/27/2019 ANUCORT-HC 25 mg suppository Insert 1 suppository into the rectum 3 (three) times a week. Therapy completed 03/31/2018 07/27/2019 budesonide 2 mg/actuation foamIndications:Crohn's disease of both small and large intestine without complication (CMS/HCC) (HCC) Use rectally one pump/spray one time daily Therapy completed 04/10/2019 07/27/2019 methotrexate 2.5 mg tabletIndications:Infla mmatory Bowel Disease Take 6 tablets by mouth one time weekly. Safety labs due with each Entyvio infusion Therapy completed 07/19/2019 07/27/2019 documented as of this encounter Historical Medications * This list may reflect changes made after this encounter. ustekinumab (STELARA) injection Inject 520 mg under the skin once Infusion 520 mg loading dose Stelara at [facility] infusion Center 01/07/2020 added in this encounter Orders Appointment Requests Count Last Ordered Date Fi rst Ordered Date INFUSION APPT REQUEST 90 MIN 1 08/24/2019 documented in this encounter Care Teams Bookmaker Map Relationship Specialty Start Date End Date Kirstie Jarrell MD PCP - General 08/29/17 08/06/21 documented as of this encounter
--- OUTSIDE RECORDS SUMMARY | 2024-11-11 19:15 | XMS_ITS | Encounter Summary ---
Author Organization [facility] [employer] [facility] Address [address] [place] [address] Phone Care Team Providers Care Clinical Consultant Name Role Phone Kirstie Jarrell MD Primary Care Provider + Encounter Details Date Type Department Care Team (Late st Contact Info) Description 01/23/2019 4:30 PM CDT Lab [facility] Oncology [address] 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 Gender Identity Not on file Sexual Orientation Not on file documented as of this encounter Discharge Disposition Disposition Code Departure Means Destination Discharge to home or self care documented in this encounter Plan of Treatment Upcoming Encounters Date Type Department Care Team (Late st Contact Info) Description 11/09/2024 Plan of Care Documentation [address] [address] [address] [place] [address] documented as of this encounter Procedures Procedure Name Priority Date/Time Associated Diagnosis Comments CBC WITHOUT DIFFERENTIAL Routine 01/23/2019 4:20 PM CDT Crohn's disease of small and large intestines with complication (CMS/HCC) HEPATIC FUNCTION PANEL Routine 01/23/2019 4:20 PM CDT Crohn's disease of small and large intestines with complication (CMS/HCC) documented in this encounter Results * CBC without differential (01/23/2019 4:20 PM CDT) WBC 5.9 3.8 - 9.9 K/cumm [facility] Hgb 14.4 13.0 - 17.5 g/dL [facility] Hct 42.0 38.9 - 50.3 % [facility] Plt 240 150 - 400 K/cumm [facility] MPV 10.5 9.1 - 12.3 fL [facility] RBC 4.61 4.30 - 5.80 M/cumm [facility] MCV 91.1 81.3 - 96.4 fL [facility] MCH 31.2 27.1 - 33.3 pg [facility] MCHC 34.3 32.3 - 35.7 g/dL [facility] RDW CV 12.5 11.1 - 14.9 % [facility] RDW SD 41.2 35.7 - 48.1 fL [facility] NRBC abs 0.00 0.00 - 0.01 K/cumm [facility] Blood specimen (specimen) 01/23/2019 4:20 PM CDT 01/23/2019 5:03 PM CDT Narrative [facility] - 01/23/2019 5:07 PM CDT us Paulina Jones MD LAB BLOOD ORDERABLE S Final Result [facility] [address] [facility]. [employer] [place] [address] * (ABNORMAL) Hepatic function panel (01/23/2019 4:20 PM CDT) Bilirubin, total 0.6 0.1 - 1.2 mg/dL [facility] Bilirubin, direct <0.2 0.1 - 0.3 mg/dL [facility] Protein, pl 6.9 6.5 - 8.5 g/dL [facility] Albumin 4.3 3.5 - 5.0 g/dL [facility] Alk phos 51 40 - 130 Units/L [facility] ALT 64(H) 7 - 55 Units/L [facility] AST 42 10 - 50 Units/L [facility] Blood specimen (specimen) 01/23/2019 4:20 PM CDT 01/23/2019 5:03 PM CDT Narrative [facility] - 01/23/2019 5:34 PM CDT us Paulina Jones MD LAB BLOOD ORDERABLE S Final Result [facility] [address] [facility]. Department [place] [address] documented in this encounter Visit Diagnoses Diagnosis Crohn's disease of small and large intestines with complication (HCC) documented in this encounter Care Teams Clinical Consultant Relationship Specialty Start Date End Date Kirstie Jarrell MD PCP - General 08/29/17 08/06/21 documented as of this encounter
--- OUTSIDE RECORDS SUMMARY | 2024-11-11 19:15 | XMS_ITS | Encounter Summary ---
Author Organization [facility] Address [address] [place] [address] Phone Care Team Providers Care Bead Supervisor Name Role Phone Kirstie Jarrell MD Primary Care Provider + Encounter Details Date Type Department Care Team (Late st Contact Info) Description 02/06/2019 Documentation [facility] Gastroenterology [facility] 8th [place] [address] [place] [address] Brittney Herrera Social History Tobacco Use Types Packs/Day Years Used Date Smoking Tobacco: Former Smokeless Tobacco: Never Alcohol Use Standard Drinks/Week Comments Yes 0 (1 standard drink = 0.6 oz pur e alcohol) Sex and Gender Information Value Date Recorded Sex Assigned at Not on file 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 I will let you know when it is approved. documented in this encounter Plan of Treatment Upcoming Encounters Date Type Department Care Team (Late st Contact Info) Description 11/09/2024 Plan of Care Documentation [address] [address] [address] [place] [address] documented as of this encounter Visit Diagnoses Not on filedocumented in this encounter Care Teams Bead Supervisor Relationship Specialty Start Date End Date Kirstie Jarrell MD PCP - General 08/29/17 08/06/21 documented as of this encounter
--- OUTSIDE RECORDS SUMMARY | 2024-11-11 19:15 | XMS_ITS | Encounter Summary ---
Author Organization [facility] [employer] [facility] Address [address] [place] [address] Phone Care Team Providers Care Agricultural Extension Agent Name Role Phone Kirstie Jarrell MD Primary Care Provider + Encounter Details Date Type Department Care Team (Late st Contact Info) Description 12/13/2018 Documentation [facility] Gastroenterology 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 12/01/2018 Summer got auth for every 8 weeks, no every 6. GER RESTAURANT documented in this encounter Plan of Treatment Upcoming Encounters Date Type Department Care Team (Late st Contact Info) Description 11/09/2024 Plan of Care Documentation [address] [place] [address] documented as of this encounter Visit Diagnoses Not on filedocumented in this encounter Care Teams Agricultural Extension Agent Relationship Specialty Start Date End Date Kirstie Jarrell MD PCP - General 08/29/17 08/06/21 documented as of this encounter
--- OUTSIDE RECORDS SUMMARY | 2024-11-11 19:15 | XMS_ITS | Encounter Summary ---
Author Organization [facility] [employer] of [facility] Address [address] [place] [address] Phone Care Team Providers Care Doctor Of Optometry Name Role Phone Kirstie Jarrell MD Primary Care Provider + Encounter Details Date Type Department Care Team (Late st Contact Info) Description 01/26/2019 Documentation [facility] Gastroenterology 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 Gender Identity Not on file Sexual Orientation Not on file documented as of this encounter Progress Notes * Brittney Herrera, VIELKA - 01/26/2019 12:17 PM CDT From: Diana Kumar [email or web address]> Sent: January 2:58 PM To: Brittney Herrera <[email or web address]>; Malaika Ivy [email or web address]>; Patria Skaggs <[email or web address]>; Sandy Rojas <[email or web address]> Cc: Angelina Olivares <[email or web address]>; Keisha Umaña <[email or web address]>; Paulina Jones <[email or web address]>; Rita Lama <[email or web address]> Subject: [secure] LALO LIVIA Julieta, I have been working on this all day getting the run with [employer] [place] trying to get the frequency changed to every 6 weeks. I do have to submit for a new Pre-D. I will lalo it as urgent in hopesto get it back sooner. I will let you know when I get the approval. 1980 Thanks Diana From: Brittney Herrera <[email or web address]> Sent: Thursday, January 24, 2019 3:44 PM To: Diana Kumar [email or web address]>; Malaika Ivy [email or web address]>; Patria Skaggs <[email or web address]>; Sandy Rojas <[email or web address]> Cc: Angelina Olivares <[email or web address]>; Keisha Umaña <[email or web address]>; Paulina Jones <[email or web address]>; Rita Lama <[email or web address]> Subject: MS Importance: Ranjit Simons Male, 38 y.o., 1980 Entyvio frequency change (from q8w to q6w) requested on 10/19/2018 Requested status update on the following dates: 11/03/18, 11/16/17, 11/30/17 Authorization obtained and entered into chart for q8w on 12/01/18 Requested change to auth on the following dates citing the error to precert: 12/06/18, 12/13/18, 12/22/18, 01/02/19 Pt has received an infusion at the 6 week lalo on 01/23/19 (will this be approved by INS?) Auth STILL says q8w - please update auth if he is approved for q6w documented in this encounter Plan of Treatment Upcoming Encounters Date Type Department Care Team (Late st Contact Info) Description 11/09/2024 Plan of Care Documentation [address] [address] [address] [place] [address] documented as of this encounter Visit Diagnoses Not on filedocumented in this encounter Care Teams Doctor Of Optometry Relationship Specialty Start Date End Date Kirstie Jarrell MD PCP - General 08/29/17 08/06/21 documented as of this encounter
--- OUTSIDE RECORDS SUMMARY | 2024-11-11 19:15 | XMS_ITS | Encounter Summary ---
Author Organization [facility] [employer] of [facility] Address [address] [place] [address] Phone Care Team Providers Care Senior Air Director Name Role Phone Kirstie Jarrell MD Primary Care Provider + Encounter Details Date Type Department Care Team (Late st Contact Info) Description 04/26/2019 Documentation [facility] G[facility] 8th [place] [address] [place] [address] Penelope Lia Social History Tobacco Use Types Packs/Day Years Used Date Smoking Tobacco: Former Smokeless Tobacco: Never Alcohol Use Standard Drinks/Week Comments Yes 0 (1 standard drink = 0.6 oz pur e alcohol) Sex and Gender Information Value Date Recorded Sex Assigned at Not on file 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 Gender Identity Not on file Sexual Orientation Not on file documented as of this encounter Progress Notes * Penelope Lai - 04/26/2019 1:21 PM CDT Mailed reminder packet to pt's home address documented in this encounter Plan of Treatment Upcoming Encounters Date Type Department Care Team (Late st Contact Info) Description 11/09/2024 Plan of Care Documentation [address] [address] [address] [place] [address] documented as of this encounter Visit Diagnoses Not on filedocumented in this encounter Care Teams Senior Air Director Relationship Specialty Start Date End Date Kirstie Jarrell MD PCP - General 08/29/17 08/06/21 documented as of this encounter
--- OUTSIDE RECORDS SUMMARY | 2024-11-11 19:15 | XMS_ITS | Encounter Summary ---
Author Organization [facility] [employer] [facility] Address [address] [place] [address] Phone Care Team Providers Care [place] Name Role Phone Kirstie Jarrell MD Primary Care Provider + Encounter Details Date Type Department Care Team (Late st Contact Info) Description 06/04/2019 Orders Only [facility] Gastroenterology [address] 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 Gender Identity Not on file Sexual Orientation Not on file documented as of this encounter Plan of Treatment Upcoming Encounters Date Type Department Care Team (Late st Contact Info) Description 11/09/2024 Plan of Care Documentation [address] [address] [address] [place] [address] Scheduled Orders Name Type Priority Associated Diagnoses Orde r Schedule Hepatic function panel Lab Routine Elevated liver function tests Expected: 06/15/2019 (Approximate), Expires: 06/04/2020 documented as of this encounter Visit Diagnoses Diagnosis Elevated liver function tests- Primary Other abnormal blood chemistry documented in this encounter Care Teams [place] Relationship Specialty Start Date End Date Kirstie Jarrell MD PCP - General 08/29/17 08/06/21 documented as of this encounter
--- OUTSIDE RECORDS SUMMARY | 2024-11-11 19:15 | XMS_ITS | Encounter Summary ---
Author Organization [facility] Address [address] [place] [address] Phone Care Team Providers Care Salmon Gillnet Vessel Operator Name Role Phone Kirstie Jarrell MD Primary Care Provider + Encounter Details Date Type Department Care Team (Late st Contact Info) Description 04/10/2019 7:30 AM CDT Office Visit [facility] Gastroenterology [address] [facility] Building [address] [place] [address] Paulina Jones MD [address] [place] [address] Crohn's disease of both small and large intestine without complication (CMS/HCC) Social History Tobacco Use Types Packs/Day Years Used Date Smoking Tobacco: Former Smokeless Tobacco: Never Alcohol Use Standard Drinks/Week Comments Yes 0 (1 standard drink = 0.6 oz pur e alcohol) Sex and Gender Information Value Date Recorded Sex Assigned at Not on file 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 Gender Identity Not on file Sexual Orientation Not on file documented as of this encounter Last Filed Vital Signs Vital Sign Reading Time Taken Comments Blood Pressure 154/83 04/10/2019 7:38 AM CDT Pulse 47 04/10/2019 7:38 AM CDT Temperature 36.5 ??C (97.7 ??F) 04/10/2019 7:38 AM CD T Respiratory Rate - - Oxygen Saturation - - Inhaled Oxygen Concentration - - Weight 117.3 kg (258 lb 9.6 oz) 04/10/2019 7:38 AM CDT Height 190.5 cm (6' 3 ) 04/10/2019 7:38 AM CDT Body Mass Index 32.32 04/10/2019 7:38 AM CDT documented in this encounter Patient Instructions * Patient Instructions* Rita Lama RN - 04/10/2019 7:30 AM CDT Colonoscopy due ALEXEY with meth michael BRIGGS TO SCHEDULE PROCEDURE.FEEL FREE TO CONTACT CHESTER AT HER DIRECT EXTENSION [phone] Labs with each Infusion due next 04/20/19 follow up in 7 months Re-start MTX 6 tabs one day per week Budesonide Foam as needed documented in this encounter Ordered Prescriptions Prescription Sig Dispense Quantity Refills Last Filled Start Date End Date budesonide 2 mg/actuation foamIndications:Cr ohn's disease of both small and large intestine without complication (CMS/HCC) (HCC) Use rectally one pump/spray one time daily 1 Can 2 04/10/2019 9 methotrexate 2.5 mg tabletIndications: Inflammatory Bowel Disease Take 6 tablets by mouth one time weekly. Safety labs due with each Entyvio infusion 24 tablet 2 04/10/2019 9 documented in this encounter Progress Notes * Paulina Jones MD - 04/10/2019 12:00 AM CDT PATIENT NAME: DANTE PERALTA : 1980 DIMITRIS: 04/10/2019 REASON FOR VISIT: Follow-up ileocolonic Crohn's disease with a known ileocecal valve stricture status post dilatation; the patient has had a history of a small-bowel obstruction, but has not had any episodes of small-bowel obstruction since he was last seen in September 2018. CURRENT MEDICATIONS: 1. Entyvio 300 mg every 8 weeks. 2. Folic acid 1 mg daily. 3. Hydrocortisone suppositories 3 days a week. 4. Nortriptyline 10 mg at bedtime. 5. Vitamin D 50,000 units once a month. 6. Methotrexate 6 tablets (every 3 to 4 weeks). 7. Budesonide foam about 2 times a month based on symptoms. PROBLEM LIST: 1. Ileocolonic and perianal Crohn's disease diagnosed in 2006 with a presentation of hematochezia and a perianal fistula with abscess. The patient was previously treated with Humira, Cimzia, Remicade, methotrexate, 6-MP, and most recently a combination of Entyvio with methotrexate with a colonoscopy 1 year ago demonstrating he had some mild proctitis and a stricture at his ileocecal valve; it wasrecommended the patient consider surgery, but with the change in a new job and a new child (his third child), the patient put off considering surgery despite being evaluated by Dr. De La Garza. The patient's most recent colonoscopy did demonstrate active proctitis, but only an ileocecal valve stricturewas otherwise noted. The patient has been treating the proctitis with intermittent budesonide foam with a very good response, although did not notice as good of a response while taking Proctofoam. 2. Gout flares while on allopurinol. HISTORY OF PRESENT ILLNESS: Dante is a gabby 38-year-old male with a past medical history of ileocolonic and perianal Crohn's disease who presents today for follow-up. The patient presents today stating that overall he has been doing quite well. He has been hesitant to take the methotrexate purely just because he states hefeels a little bit off when he takes it. Most recently, he was seen by our nurse practitioner, who recommended that he decrease methotrexate from 25 down to 15 mg a week to see if perhaps he might beable to tolerate it better. He did not enjoy doing the shots so he switched also to the oral form of methotrexate. The patient states that although it does not bother him to take the methotrexate, hereally just has not been taking it. He states that with the new baby, he is taking it maybe on average once a month or every 3 weeks. The patient reports that he does feel occasional symptoms of proctitis, but he does take the budesonide foam with significant improvement of symptoms. When he does take the actual hydrocortisone foam, he states he really does not notice as good of a response. The patient otherwise states that he feels better than he has felt in quite some time. He is able to exercise and be quite active. PHYSICAL EXAM: VITAL SIGNS: His height is 6 feet, weight of 258.6, blood pressure 154/83, temperature of 97.7. GENERAL: He is a well-appearing, white male, in no apparent distress. HEENT: His oropharynx is clear with no submandibular or supraclavicular lymphadenopathy. CARDIOVASCULAR: He has a normal S1, S2. Regular rate and rhythm. PULMONARY: Clear to auscultation. ABDOMEN: Soft, nontender, nondistended with good bowel sounds. EXTREMITIES: No edema. ASSESSMENT: Dante is a gabby 38-year-old gentleman with a past medical history of ileocolonic stricturing and perianal Crohn's disease currently maintained on Entyvio monotherapy, with only occasional methotrexate conception, who presents today for follow-up. I have spoken to Dante at length regarding the fact that I think it is important that he continueto be compliant with the methotrexate. Our options right now are limited. Although we could consider combination with Xeljanz or Stelara, it is difficult to get approved by insurance, although it should be used as an option with Entyvio. If methotrexate though with once a week dosing does have improved control of his rectal disease as well as his stricture at his ileocecal valve, I think it is worthwhile to continue the methotrexate for now. The patient states that he will try to take it compliantly. He is doing it currently with folic acid at the same time, and that seems to help him tolerate, as well as help him tolerate the lower dose of the methotrexate. We will plan on scheduling for the colonoscopy in the next few months. In addition, I will give pawan refill of the budesonide foam. He has plenty of the hydrocortisone foam at home, but he just doesnot feel like that works as well as the budesonide foam. The patient otherwise was given ample opportunity to ask any questions. He will continue to take his Entyvio at every 6-week dosing as he has had that for the last 2 doses. ELECTRONICALLY SIGNED - 04/11/2019 10:28 AM Paulina Jones MD, MPH Biofuels Operations Manager, Medicine Division of Gastroenterology [facility] documented in this encounter Plan of Treatment Upcoming Encounters Date Type Department Care Team (Late st Contact Info) Description 11/09/2024 Plan of Care Documentation [address] [address] [place] [address] documented as of this encounter Visit Diagnoses Diagnosis Crohn's disease of both small and large intestine without complication (CMS/HCC) (HCC) documented in this encounter Discontinued Medications Medication Sig Discontinue Reason Start Date End Da te methotrexate 2.5 mg tabletIndications:Infla mmatory Bowel Disease Take 10 tablets by mouth one time weekly. Safety labs due with each Entyvio infusion Reorder 03/12/2019 04/10/2019 documented as of this encounter Care Teams Salmon Gillnet Vessel Operator Relationship Specialty Start Date End Date Kirtsie Jarrell MD PCP - General 08/29/17 08/06/21 documented as of this encounter
--- OUTSIDE RECORDS SUMMARY | 2024-11-11 19:15 | XMS_ITS | Encounter Summary ---
Author Organization [facility] Address [address] [place] [address] Phone Care Team Providers Care Behavioral Sciences Instructor Name Role Phone Kirstie Jarrell MD Primary Care Provider + Reason for Visit * Reason Onset Date Comments Elevated LFTs 06/04/2019 Encounter Details Date Type Department Care Team (Late st Contact Info) Description 06/04/2019 Telephone [facility] Gastroenterology [address] [facility] 8th [place] [address] [place] [address] Rita Lama RN Elevated LFTs Social History Tobacco Use Types Packs/Day Years Used Date Smoking Tobacco: Former Smokeless Tobacco: Never Alcohol Use Standard Drinks/Week Comments Yes 0 (1 standard drink = 0.6 oz pur e alcohol) Sex and Gender Information Value Date Recorded Sex Assigned at Not on file 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 Paulina Jones MD ?? Worsening transaminitis/elevated LFT's - Any new drugs? Any new vitamins? ETOH? Recent viral illness? Left message for the patient on his voicemail documented in this encounter Plan of Treatment Upcoming Encounters Date Type Department Care Team (Late st Contact Info) Description 11/09/2024 Plan of Care Documentation [address] [address] [address] [place] [address] documented as of this encounter Visit Diagnoses Not on filedocumented in this encounter Care Teams Behavioral Sciences Instructor Relationship Specialty Start Date End Date Kirstie Jarrell MD PCP - General 08/29/17 08/06/21 documented as of this encounter
--- OUTSIDE RECORDS SUMMARY | 2024-11-11 19:15 | XMS_ITS | Encounter Summary ---
Author Organization [facility] Address [address] [place] [address] Phone Care Team Providers Care Intelligence Agent Name Role Phone Kirstie Jarrell MD Primary Care Provider + Reason for Visit * Episode Based Medications (Routine) - Closed Specialty Diagnoses / Procedures Referred By Med bazan Referred To Contact Diagnoses Crohn's disease of small and large intestines with complication (HCC) Procedures CT INJECTION, VEDOLIZUMAB Paulina Jones MD [address] [place] [address] Phone: tel: fax: [facility] [address] [place] [address] [address] [place] [address] Phone: tel: Referral ID Status Reason Start Date Expiration Date Visits Re quested Visits Authorized [id number] Closed 02/01/2019 02/16/2020 15 15 Encounter Details Date Type Department Care Team (Late st Contact Info) Description 04/20/2019 12:30 PM CDT Infusion [facility] [address] [place] [address] [address] [place] [address] Crohn's disease of small and large intestines with complication (CMS/HCC) (Primary Dx) Social History Tobacco Use Types Packs/Day Years Used Date Smoking Tobacco: Former Smokeless Tobacco: Never Alcohol Use Standard Drinks/Week Comments Yes 0 (1 standard drink = 0.6 oz pur e alcohol) Sex and Gender Information Value Date Recorded Sex Assigned at Not on file 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 Patient denies any active infections or upcoming surgeries. PIV placed, labs obtained and dose infused. Patient tolerated infusion well. documented in this encounter Miscellaneous Notes * Addendum Note - Tommy Esparza CLT - 04/20/2019 12:30 PM CDTAddended by: TOMMY ESPARZA on: 04/20/2019 02:25 PM Modules accepted: Orders documented in this encounter Plan of Treatment Upcoming Encounters Date Type Department Care Team (Late st Contact Info) Description 11/09/2024 Plan of Care Documentation [address] [address] [address] [place] [address] documented as of this encounter Results * TB test, T-SPOT (04/20/2019 2:47 PM CDT) IFN-Gamma Release Assay TB See scanned report [facility] Blood specimen (specimen) 04/20/2019 2:47 PM CDT 04/24/2019 7:14 AM CDT Paulina Jones MD LAB MICROBIOLOGY - GENERAL ORDERABLES Final Result [facility] [id number] [facility]. [place] [address] documented in this encounter Visit [...] and post IV catheter use, Starting on Tue04/20/19 at 1240Indications:Crohn's disease of small and large intestines with complication (HCC) Given 04/20/2019 12:51 PM CDT 10 mL vedolizumab (ENTYVIO) 300 mg in sodium chloride 0.9% 250 mL IVPB 300 mg, intravenous, at 510 mL/hr, Administer over 30 Minutes, Once, On Tue04/20/19 at 1315, For 1 doseIndications:Crohn's disease of small and large intestines with complication (HCC) New Bag 04/20/2019 12:50 PM CDT 300 mg 510 mL/hr documented in this encounter Orders Nursing Count Last Ordered Date First Orde red Date VITAL SIGNS PRE-INFUSION 1 04/20/2019 Appointment Requests Count Last Ordered Date Fi rst Ordered Date INFUSION APPT REQUEST 60 MIN 1 04/20/2019 documented in this encounter Care Teams Intelligence Agent Relationship Specialty Start Date End Date Kirstie Jarrell MD PCP - General 08/29/17 08/06/21 documented as of this encounter
--- OUTSIDE RECORDS SUMMARY | 2024-11-11 19:15 | XMS_ITS | Encounter Summary ---
Author Organization [facility] Address [address] [place] [address] Phone Care Team Providers Care Head Operator Sulfide Name Role Phone Kirstie Jarrell MD Primary Care Provider + Encounter Details Date Type Department Care Team (Late Contact Info) Description 03/12/2019 Orders Only [facility] Gastroenterology [address] [facility] 8th [place] [address] [place] [address] Rita Lama RN Crohn's disease of both small and large intestine without complication (CMS/[facility]) Social History Tobacco Use Types Packs/Day Years Used Date Smoking Tobacco: Former Smokeless Tobacco: Never Alcohol Use Standard Drinks/Week Comments Yes 0 (1 standard drink = 0.6 oz pur e alcohol) Sex and Gender Information Value Date Recorded Sex Assigned at Not on file 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 Safety labs due with each Entyvio infusion 120 tablet 03/12/2019 9 documented in this encounter Plan of Treatment Upcoming Encounters Date Type Department Care Team (Late st Contact Info) Description 11/09/2024 Plan of Care Documentation [address] [address] [address] [place] [address] documented as of this encounter Visit Diagnoses [...] Safety labs due with each infusion Reorder 12/11/2018 03/12/2019 documented as of this encounter Care Teams Head Operator Sulfide Relationship Specialty Start Date End Date Kirstie Jarrell MD PCP - General 08/29/17 08/06/21 documented as of this encounter
--- OUTSIDE RECORDS SUMMARY | 2024-11-11 19:15 | XMS_ITS | Encounter Summary ---
Author Organization [facility] of [facility] Address [address] [place] [address] Phone Care Team Providers Care Bundler Seasonal Greenery Name Role Phone Kirstie Jarrell MD Primary Care Provider + Encounter Details Date Type Department Care Team (Late st Contact Info) Description 02/26/2019 Documentation [facility] Gastroenterology Formerly [facility], 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 Emailed precert to get auth in chart ALEXEY. documented in this encounter Plan of Treatment Upcoming Encounters Date Type Department Care Team (Late st Contact Info) Description 11/09/2024 Plan of Care Documentation [address] [place] [address] documented as of this encounter Visit Diagnoses Not on filedocumented in this encounter Care Teams Bundler Seasonal Greenery Relationship Specialty Start Date End Date Kirstie Jarrell MD PCP - General 08/29/17 08/06/21 documented as of this encounter
--- OUTSIDE RECORDS SUMMARY | 2024-11-11 19:15 | XMS_ITS | Encounter Summary ---
Author Organization [facility] of [facility] Address [address] [place] [address] Phone Care Team Providers Care Coding Director Name Role Phone Kirstie Jarrell MD Primary Care Provider + Encounter Details Date Type Department Care Team (Late st Contact Info) Description 01/02/2019 Documentation 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 ?12/01/2018 Summer got auth for every 8 weeks, no every 6. AL HYGIENIST MOBILE COORDINATOR documented in this encounter Plan of Treatment Upcoming Encounters Date Type Department Care Team (Late st Contact Info) Description 11/09/2024 Plan of Care Documentation [address] [place] [id number] documented as of this encounter Visit Diagnoses Not on filedocumented in this encounter Care Teams Coding Director Relationship Specialty Start Date End Date Kirstie Jarrell MD PCP - General 08/29/17 08/06/21 documented as of this encounter
--- OUTSIDE RECORDS SUMMARY | 2024-11-11 19:15 | XMS_ITS | Encounter Summary ---
Author Organization [facility] of [facility] Address [address] [place] [address] Phone Care Team Providers Care Parts Classifier Name Role Phone Kirstie Jarrell MD Primary Care Provider + Encounter Details Date Type Department Care Team (Late st Contact Info) Description 02/19/2019 Documentation [facility] Gastroenterology [address] 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> Sent: February 1:07 PM To: Brittney Herrera <[email or web address]> Subject: [secure] DANTE Lugo, I just called to follow up on julia Vazquez at [facility] [place] she is sending it to the pharmacist to be approved. I did confirm that we need the auth to state every 6 weeks so I will let you know when it is approved. Thanks documented in this encounter Plan of Treatment Upcoming Encounters Date Type Department Care Team (Late st Contact Info) Description 11/09/2024 Plan of Care Documentation [address] [address] [address] [place] [address] documented as of this encounter Visit Diagnoses Not on filedocumented in this encounter Care Teams Parts Classifier Relationship Specialty Start Date End Date Kirstie Jarrell MD PCP - General 08/29/17 08/06/21 documented as of this encounter
--- OUTSIDE RECORDS SUMMARY | 2024-11-11 19:15 | XMS_ITS | Encounter Summary ---
Author Organization [facility] [employer] of [facility] Address [address] [place] [address] Phone Care Team Providers Care Strategic Communications Specialist Name Role Phone Kirstie Jarrell MD Primary Care Provider + Encounter Details Date Type Department Care Team (Late st Contact Info) Description 12/22/2018 Documentation [facility] Gastroenterology [facility] 8th [place] [address] [place] [address] Brittney Herrera Social History Tobacco Use Types Packs/Day Years Used Date Smoking Tobacco: Former Smokeless Tobacco: Never Alcohol Use Standard Drinks/Week Comments Yes 0 (1 standard drink = 0.6 oz pur e alcohol) Sex and Gender Information Value Date Recorded Sex Assigned at Not on file 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 12/01/2018 Summer got auth for every 8 weeks, no every 6. INSTRUCTOR documented in this encounter Plan of Treatment Upcoming Encounters Date Type Department Care Team (Late st Contact Info) Description 11/09/2024 Plan of Care Documentation [address] [place] [address] documented as of this encounter Visit Diagnoses Not on filedocumented in this encounter Care Teams Strategic Communications Specialist Relationship Specialty Start Date End Date Kirstie Jarrell MD PCP - General 08/29/17 08/06/21 documented as of this encounter
--- OUTSIDE RECORDS SUMMARY | 2024-11-11 19:15 | XMS_ITS | Encounter Summary ---
Author Organization [facility] [employer] of [facility] Address [address] [place] [address] Phone Care Team Providers Care Bleacher Operator Name Role Phone Kirstie Jarrell MD Primary Care Provider + Encounter Details Date Type Department Care Team (Late st Contact Info) Description 02/01/2019 Documentation [facility] G[facility]enterology [facility] 8th [place] [address] [place] [address] Brittney Herrera Social History Tobacco Use Types Packs/Day Years Used Date Smoking Tobacco: Former Smokeless Tobacco: Never Alcohol Use Standard Drinks/Week Comments Yes 0 (1 standard drink = 0.6 oz pur e alcohol) Sex and Gender Information Value Date Recorded Sex Assigned at Not on file 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 I did fax over more clinicals this morning. I will keep following up and let you know when it is approved. Thanks Summer documented in this encounter Plan of Treatment Upcoming Encounters Date Type Department Care Team (Late st Contact Info) Description 11/09/2024 Plan of Care Documentation [address] [address] [address] [place] [address] documented as of this encounter Visit Diagnoses Not on filedocumented in this encounter Care Teams Bleacher Operator Relationship Specialty Start Date End Date Kirstie Jarrell MD PCP - General 08/29/17 08/06/21 documented as of this encounter
--- OUTSIDE RECORDS SUMMARY | 2024-11-11 19:15 | XMS_ITS | Encounter Summary ---
Author Organization [facility] [employer] of [facility] Address [address] [place] [address] Phone Care Team Providers Care Director Of Archives Name Role Phone Kirstie Jarrell MD Primary Care Provider + Encounter Details Date Type Department Care Team (Late Contact Info) Description 07/16/2019 Orders Only [facility] Gastroenterology [address] [facility] 8th [place] [address] [place] [address] Rita Lama RN Crohn's disease of both small and large intestine without complication (CMS/[facility]) Social History Tobacco Use Types Packs/Day Years Used Date Smoking Tobacco: Former Smokeless Tobacco: Never Alcohol Use Standard Drinks/Week Comments Yes 0 (1 standard drink = 0.6 oz pur e alcohol) Sex and Gender Information Value Date Recorded Sex Assigned at Not on file 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 Safety labs due with each Entyvio infusion 24 tablet 2 07/16/2019 9 documented in this encounter Plan of Treatment Upcoming Encounters Date Type Department Care Team (Late st Contact Info) Description 11/09/2024 Plan of Care Documentation [address] [address] [address] [place] [address] documented as of this encounter Visit Diagnoses Diagnosis Crohn's disease of both small and large intestine without complication (CMS/HCC) (HCC) documented in this encounter Discontinued Medications Medication Sig Discontinue Reason Start Date End Da te methotrexate 2.5 mg tabletIndications:Infla mmatory Bowel Disease Take 6 tablets by mouth one time weekly. Safety labs due with each Entyvio infusion Reorder 04/10/2019 07/16/2019 documented as of this encounter Care Teams Director Of Archives Relationship Specialty Start Date End Date Kirstie Jarrell MD PCP - General 08/29/17 08/06/21 documented as of this encounter
--- OUTSIDE RECORDS SUMMARY | 2024-11-11 19:16 | XMS_ITS | Encounter Summary ---
Author Organization [facility] [employer] of [facility] Address [address] [place] [address] Phone Care Team Providers Care Washtub Worker Name Role Phone Kirstie Jarrell MD Primary Care Provider + Encounter Details Date Type Department Care Team (Late st Contact Info) Description 06/23/2018 2:30 PM CDT Lab 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 Gender Identity Not on file Sexual Orientation Not on file documented as of this encounter Plan of Treatment Upcoming Encounters Date Type Department Care Team (Late st Contact Info) Description 11/09/2024 Plan of Care Documentation [address] [address] [address] [place] [address] documented as of this encounter Procedures Procedure Name Priority Date/Time Associated Diagnosis Comments DIFFERENTIAL AUTO Routine 06/23/2018 11: 25 AM CDT Crohn's disease of small and large intestines with complication (CMS/HCC) CBC WITH AUTO DIFFERENTIAL Routine 06/23/2018 11:25 AM CDT Crohn's disease of small and large intestines with complication (CMS/HCC) HEPATIC FUNCTION PANEL Routine 06/23/2018 11:25 AM CDT documented in this encounter Results * Hepatic function panel (06/23/2018 11:25 AM CDT) Bilirubin, total 0.6 0.1 - 1.2 mg/dL [facility] Bilirubin, direct <0.2 0.1 - 0.3 mg/dL [facility] Protein, pl 7.1 6.5 - 8.5 g/dL [facility] Albumin 4.4 3.5 - 5.0 g/dL [facility] Alk phos 54 40 - 130 Units/L [facility] ALT 44 7 - 55 Units/L [facility] AST 33 10 - 50 Units/L [facility] Blood specimen (specimen) 06/23/2018 11:25 AM CDT 06/23/2018 3:30 PM CDT [facility]ative [facility] - 06/23/2018 3:54 PM CDT us Paulina Jones MD LAB BLOOD ORDERABLE S Final Result [facility] [id number] [facility]. [place] [address] * Differential, auto (06/23/2018 11:25 AM CDT) Neutrophil abs 3.4 1.7 - 6.5 K/cumm [facility] Imm gran abs 0.0 0.0 - 0.1 K/cumm [facility] Lymphocyte abs 1.8 0.8 - 3.3 K/cumm [facility] Monocyte abs 0.4 0.2 - 0.8 K/cumm [facility] Eosinophil abs 0.1 0.0 - 0.5 K/cumm [facility] Basophil abs 0.0 0.0 - 0.1 K/cumm [facility] Neutrophil pct 59.4 % [facility] Comment: Interpretive Data Percent [...] was last revised on 2018. Lymphocyte pct 31.1 % [facility] Comment: Interpretive Data Percent [...] revised on 2018. Eosinophil pct 1.6 % [facility] Comment: Interpretive Data Percent [...] last revised on 2018. Blood specimen (specimen) 06/23/2018 11:25 AM CDT 06/23/2018 3:30 PM CDT Narrative [facility] - 06/23/2018 3:36 PM CDT us Paulina Jones MD LAB BLOOD ORDERABLE S Final Result [facility] [id number] [facility]. Department of Laboratories [place], [place] [id number] * CBC with auto differential (06/23/2018 11:25 AM CDT) WBC 5.7 3.8 - 9.9 K/cumm [facility] Hgb 14.4 13.0 - 17.5 g/dL [facility] Hct 42.9 38.9 - 50.3 % [facility] Plt 214 150 - 400 K/cumm [facility]ERWRUBEN MPV 11.0 9.1 - 12.3 fL [facility] RBC 4.62 4.30 - 5.80 M/cumm [facility] MCV 92.9 81.3 - 96.4 fL [facility] MCH 31.2 27.1 - 33.3 pg [facility] MCHC 33.6 32.3 - 35.7 g/dL [facility] RDW CV 13.0 11.1 - 14.9 % [facility] RDW SD 43.9 35.7 - 48.1 fL [facility] NRBC abs 0.00 0.00 - 0.01 K/cumm [facility] Blood specimen (specimen) 06/23/2018 11:25 AM CDT 06/23/2018 3:30 PM CDT Narrative [facility] - 06/23/2018 3:36 PM CDT us Paulina Jones MD LAB BLOOD ORDERABLE S Final Result [facility] [address] [facility]. [place] [address] documented in this encounter Visit Diagnoses Diagnosis Crohn's disease of small and large intestines with complication (HCC) documented in this encounter Care Teams Washtub Worker Relationship Specialty Start Date End Date Kirstie Jarrell MD PCP - General 08/29/17 08/06/21 documented as of this encounter
--- OUTSIDE RECORDS SUMMARY | 2024-11-11 19:16 | XMS_ITS | Encounter Summary ---
Author Organization [facility] [employer] of [facility] Address [address] [place] [address] Phone Care Team Providers Care Drilling Plant Operator Name Role Phone Kirstie Jarrell MD Primary Care Provider + Encounter Details Date Type Department Care Team (Late st Contact Info) Description 11/03/2018 Documentation [facility] Gastroenterology [facility] [address]th [place] [address] [place] [address] Brittney Herrera Social History Tobacco Use Types Packs/Day Years Used Date Smoking Tobacco: Former Smokeless Tobacco: Never Alcohol Use Standard Drinks/Week Comments Yes 0 (1 standard drink = 0.6 oz pur e alcohol) Sex and Gender Information Value Date Recorded Sex Assigned at Not on file Legal Sex Male 9:34 AM DIRECTOR OF CURRICULUM Gender Identity Not on file Sexual Orientation Not on file documented as of this encounter Progress Notes * Brittney Herrera MA - 11/03/2018 9:24 AM CST Sent precert staff message asking for update. CTOR OF CURRICULUM documented in this encounter Plan of Treatment Upcoming Encounters Date Type Department Care Team (Late st Contact Info) Description 11/09/2024 Plan of Care Documentation [address] [address] [address] [place] [address] documented as of this encounter Visit Diagnoses Not on filedocumented in this encounter Care Teams Drilling Plant Operator Relationship Specialty Start Date End Date Kirstie Jarrell MD PCP - General 08/29/17 08/06/21 documented as of this encounter
--- OUTSIDE RECORDS SUMMARY | 2024-11-11 19:16 | XMS_ITS | Encounter Summary ---
Author Organization [facility] [employer] of [facility] Address [address] [place] [address] Phone Care Team Providers Care Corn Breeder Name Role Phone Kirstie Jarrell MD Primary Care Provider + Encounter Details Date Type Department Care Team (Late st Contact Info) Description 10/13/2018 3:00 PM FIELD LIABILITY GENERALIST Lab [facility] [address] [facility] [address] [place] [id number] Crohn's disease of small and large intestines with complication (CMS/HCC) Social History Tobacco Use Types Packs/Day Years Used Date Smoking Tobacco: Former Smokeless Tobacco: Never Alcohol Use Standard Drinks/Week Comments Yes 0 (1 standard drink = 0.6 oz pur e alcohol) Sex and Gender Information Value Date Recorded Sex Assigned at Not on file Legal Sex Male 9:34 AM FIELD LIABILITY GENERALIST Gender Identity Not on file Sexual Orientation Not on file documented as of this encounter Plan of Treatment Upcoming Encounters Date Type Department Care Team (Late st Contact Info) Description 11/09/2024 Plan of Care Documentation [address] [address] [address] [place] [address] documented as of this encounter Procedures Procedure Name Priority Date/Time Associated Diagnosis Comments VEDOLIZUMAB QN WITH ANTIBODIES, S Routine 10/13/2018 3:00 PM FIELD LIABILITY GENERALIST Crohn's disease of small and large intestines with complication (CMS/HCC) DIFFERENTIAL AUTO Routine 10/13/2018 3:0 0 PM FIELD LIABILITY GENERALIST Crohn's disease of small and large intestines with complication (CMS/HCC) CBC WITH AUTO DIFFERENTIAL Routine 10/13/2018 3:00 PM FIELD LIABILITY GENERALIST Crohn's disease of small and large intestines with complication (CMS/HCC) HEPATIC FUNCTION PANEL Routine 10/13/2018 3:00 PM FIELD LIABILITY GENERALIST documented in this encounter Results * Hepatic function panel (10/13/2018 3:00 PM FIELD LIABILITY GENERALIST) Bilirubin, total 0.8 0.1 - 1.2 mg/dL [facility] Bilirubin, direct <0.2 0.1 - 0.3 mg/dL [facility] Protein, pl 7.0 6.5 - 8.5 g/dL [facility] Albumin 4.4 3.5 - 5.0 g/dL [facility] Alk phos 54 40 - 130 Units/L [facility] ALT 54 7 - 55 Units/L [facility] AST 33 10 - 50 Units/L [facility] Blood specimen (specimen) 10/13/2018 3:00 PM FIELD LIABILITY GENERALIST 10/13/2018 4:22 PM FIELD LIABILITY GENERALIST Narrative [facility] - 10/13/2018 5:10 PM FIELD LIABILITY GENERALIST us Paulina Jones MD LAB BLOOD ORDERABLE S Final Result [facility] [address] [facility]. Department [place] [address] * Differential, auto (10/13/2018 3:00 PM FIELD LIABILITY GENERALIST) Neutrophil abs 4.3 1.7 - 6.5 K/cumm [facility] Imm gran abs 0.0 0.0 - 0.1 K/cumm [facility] Lymphocyte abs 2.0 0.8 - 3.3 K/cumm [facility] Monocyte abs 0.5 0.2 - 0.8 K/cumm [facility] Eosinophil abs 0.1 0.0 - 0.5 K/cumm [facility] Basophil abs 0.0 0.0 - 0.1 K/cumm [facility] Neutrophil pct 62.3 % [facility] Comment: Interpretive Data Percent cell count reference ranges are not reported, since discordance with absolute values may lead to misinterpretation of CBC data. Current Interpretive Data was last revised on 2018. Imm gran pct 0.4 % [facility] Comment: Interpretive Data Percent cell count reference ranges are not reported, since discordance with absolute values may lead to misinterpretation of CBC data. Current Interpretive Data was last revised on 2018. Lymphocyte pct 28.8 % [facility] Comment: Interpretive Data Percent cell count reference ranges are not reported, since discordance with absolute values may lead to misinterpretation of CBC data. Current Interpretive Data was last revised on 2018. Monocyte pct 6.8 % [facility] Comment: Interpretive Data Percent cell count reference ranges are not reported, since discordance with absolute values may lead to misinterpretation of CBC data. Current Interpretive Data was last revised on 2018. Eosinophil pct 1.4 % [facility] Comment: Interpretive Data Percent cell count reference ranges are not reported, since discordance with absolute values may lead to misinterpretation of CBC data. Current Interpretive Data was last revised on 2018. Basophil pct 0.3 % [facility] Comment: Interpretive Data Percent cell count reference ranges are not reported, since discordance with absolute values may lead to misinterpretation of CBC data. Current Interpretive Data was last revised on 2018. Blood specimen (specimen) 10/13/2018 3:00 PM FIELD LIABILITY GENERALIST 10/13/2018 4:21 PM FIELD LIABILITY GENERALIST Narrative [facility] - 10/13/2018 5:08 PM FIELD LIABILITY GENERALIST us Paulina Jones MD LAB BLOOD ORDERABLE S Final Result [facility] [address] [facility]. [place] [address] * (ABNORMAL) Vedolizumab QN with Antibodies, S (10/13/2018 3:00 PM FIELD LIABILITY GENERALIST) [facility] Vedolizumab Qn 2.9(L) mcg/mL [facility] Comment: REFERENCE VALUE Lower limit of quantitation = 2.0 mcg/mL ADDITIONAL INFORMATION This test was developed and its performance characteristics determined by [facility] in a manner consistent with CLIA requirements. This test has not been cleared or approved by the U.S. Food and Drug Administration. Vedolizumab Ab <9.8 <9.8 ng/mL [facility] Vedolizumab interp See Footnote [facility] Comment: RESULT: Absence of detectable [id number]. ADDITIONAL INFORMATION This test was developed and its performance characteristics determined by [facility] in a manner consistent with CLIA requirements. This test has not been cleared or approved by the U.S. Food and Drug Administration. Test Performed by: [facility] - [address] [address] Blood specimen (specimen) 10/13/2018 3:00 PM FIELD LIABILITY GENERALIST 10/13/2018 4:21 PM FIELD LIABILITY GENERALIST Narrative [facility] - 10/18/2018 3:24 PM FIELD LIABILITY GENERALIST us Paulina Jones MD LAB BLOOD ORDERABLE S Final Result [facility] [address] [facility]. [place] [address] * CBC with auto differential (10/13/2018 3:00 PM FIELD LIABILITY GENERALIST) WBC 6.9 3.8 - 9.9 K/cumm [facility] Hgb 14.8 13.0 - 17.5 g/dL [facility] Hct 44.9 38.9 - 50.3 % [facility] Plt 244 150 - 400 K/cumm [facility] MPV 10.5 9.1 - 12.3 fL [facility] RBC 4.75 4.30 - 5.80 M/cumm [facility] MCV 94.5 81.3 - 96.4 fL [facility] MCH 31.2 27.1 - 33.3 pg [facility] MCHC 33.0 32.3 - 35.7 g/dL [facility] RDW CV 12.5 11.1 - 14.9 % [facility] RDW SD 42.9 35.7 - 48.1 fL [facility] NRBC abs 0.00 0.00 - 0.01 K/cumm [facility] Blood specimen (specimen) 10/13/2018 3:00 PM FIELD LIABILITY GENERALIST 10/13/2018 4:21 PM FIELD LIABILITY GENERALIST Narrative [facility]DO [facility] - 10/13/2018 5:08 PM FIELD LIABILITY GENERALIST us Paulina Jones MD LAB BLOOD ORDERABLE S Final Result [facility] [address] [facility] Department [place] [address] documented in this encounter Visit Diagnoses Diagnosis Crohn's disease of small and large intestines with complication (HCC) documented in this encounter Care Teams Corn Breeder Relationship Specialty Start Date End Date Kirstie Jarrell MD PCP - General 08/29/17 08/06/21 documented as of this encounter
--- OUTSIDE RECORDS SUMMARY | 2024-11-11 19:16 | XMS_ITS | Encounter Summary ---
Author Organization [facility] [employer] [facility] Address [address] [place] [address] Phone Care Team Providers Care Commercial Green Building Designer Name Role Phone Kirstie Jarrell MD Primary Care Provider + Encounter Details Date Type Department Care Team (Late st Contact Info) Description 10/06/2018 Orders Only [facility] Gastroenterology [address] [facility] 8th [place] [address] [place] [address] Rita Lama RN Social History Tobacco Use Types Packs/Day Years Used Date Smoking Tobacco: Former Smokeless Tobacco: Never Alcohol Use Standard Drinks/Week Comments Yes 0 (1 standard drink = 0.6 oz pur e alcohol) Sex and Gender Information Value Date Recorded Sex Assigned at Not on file Legal Sex Male 9:34 AM SENIOR PRODUCT CONSULTANT Gender Identity Not on file Sexual Orientation Not on file documented as of this encounter Plan of Treatment Upcoming Encounters Date Type Department Care Team (Late st Contact Info) Description 11/09/2024 Plan of Care Documentation [address] [address] [address] [place] [address] documented as of this encounter Visit Diagnoses Not on filedocumented in this encounter Care Teams Commercial Green Building Designer Relationship Specialty Start Date End Date Kirstie Jarrell MD PCP - General 08/29/17 08/06/21 documented as of this encounter
--- OUTSIDE RECORDS SUMMARY | 2024-11-11 19:16 | XMS_ITS | Encounter Summary ---
Author Organization [facility] [employer] [facility] Address [address] [place] [address] Phone Care Team Providers Care Registered Nurse Behavioral Health Name Role Phone Kirstie Jarrell MD Primary Care Provider + Encounter Details Date Type Department Care Team (Late st Contact Info) Description 06/26/2018 Orders Only [facility] Gastroenterology [address] [facility] 8th [place] [address] [place] [address] Paulina Jones MD [address] [place] [address] Crohn's disease of both small and large intestine without complication (CMS/HCC) Social History Tobacco Use Types Packs/Day Years Used Date Smoking Tobacco: Former Smokeless Tobacco: Never Alcohol Use Standard Drinks/Week Comments Yes 0 (1 standard drink = 0.6 oz pur e alcohol) Sex and Gender Information Value Date Recorded Sex Assigned at Not on file Legal Sex Male 9:34 AM EARLY CHILDHOOD SPECIAL EDUCATOR Gender Identity Not on file Sexual Orientation Not on file documented as of this encounter Ordered Prescriptions Prescription Sig Dispense Quantity Refills Last Filled Start Date End Date methotrexate 2.5 mg tabletIndications: Crohn's disease of both small and large intestine without complication (CMS/HCC) (HCC) Take 10 tablets by mouth one time weekly. Safety labs due every 3 months, due next 09/2018 120 tablet 06/26/2018 8 documented in this encounter Plan of Treatment Upcoming Encounters Date Type Department Care Team (Late st Contact Info) Description 11/09/2024 Plan of Care Documentation [address] [address] [address] [place] [address] documented as of this encounter Visit Diagnoses Diagnosis Crohn's disease of both small and large intestine without complication (CMS/HCC) (HCC) documented in this encounter Discontinued Medications Medication Sig Discontinue Reason Start Date End Da te methotrexate 2.5 mg tablet TAKE 10 TABLETS BY MOUTH ONE TIME WEEKLY (ALL AT ONE TIME) (LABS DUE WITH EACH ENTYVIO INFUSION EVERY 8 WEEKS due 04/28/18) Duplicate order 06/19/2015 06/26/2018 methotrexate 2.5 mg tabletIndications:Crohn' s disease of both small and large intestine without complication (CMS/HCC) (HCC) Take 10 tabs PO One day per week( safety labs due with each Entyvio Infusion) Reorder 04/24/2018 06/26/2018 documented as of this encounter Care Teams Registered Nurse Behavioral Health Relationship Specialty Start Date End Date Kirstie Jarrell MD PCP - General 08/29/17 08/06/21 documented as of this encounter
--- OUTSIDE RECORDS SUMMARY | 2024-11-11 19:16 | XMS_ITS | Encounter Summary ---
Author Organization [facility] Address [address] [place] [address] Phone Care Team Providers Care Electronics Technician Apprentice Name Role Phone Kirstie Jarrell MD Primary Care Provider + Reason for Visit * Episode Based Medications (Routine) - Closed Specialty Diagnoses / Procedures Referred By Med bazan Referred To Contact Diagnoses Crohn's disease of small and large intestines with complication (HCC) Procedures NC INJECTION, VEDOLIZUMAB Paulina Jones MD [address] [place] [address] Phone: tel: fax: [facility] [address] [place] [address] [address] [place] [address] Phone: tel: Referral ID Status Reason Start Date Expiration Date Visits Re quested Visits Authorized [id number] Closed 02/01/2019 02/16/2020 15 15 Encounter Details Date Type Department Care Team (Late st Contact Info) Description 10/13/2018 1:00 PM LABORATORY HELPER Infusion [facility] [address] [place] [address] [address] [place] [address] Crohn's disease of small and large intestines with complication (CMS/HCC) (Primary Dx) Social History Tobacco Use Types Packs/Day Years Used Date Smoking Tobacco: Former Smokeless Tobacco: Never Alcohol Use Standard Drinks/Week Comments Yes 0 (1 standard drink = 0.6 oz pur e alcohol) Sex and Gender Information Value Date Recorded Sex Assigned at Not on file Legal Sex Male 9:34 AM LABORATORY HELPER Gender Identity Not on file Sexual Orientation Not on file documented as of this encounter Last Filed Vital Signs Vital Sign Reading Time Taken Comments Blood Pressure 132/76 10/13/2018 2:00 PM LABORATORY HELPER Pulse 54 10/13/2018 2:00 PM LABORATORY HELPER Temperature 36.4 ??C (97.6 ??F) 10/13/2018 1:05 PM CS T Respiratory Rate - - Oxygen Saturation - - Inhaled Oxygen Concentration - - Weight - - Height - - Body Mass Index - - documented in this encounter Progress Notes * Tammi Camejo RN - 10/13/2018 1:00 PM CST Patient here today for entyvio infusion. Patient denies any active infections or upcoming surgeries. PIV placed, labs obtained and dose given. Patient tolerated infusion well. RATORY HELPER documented in this encounter Miscellaneous Notes * Addendum Note - Tommy Esparza CLT - 10/13/2018 1:00 PM CSTAddended by: TOMMY ESPARZA on: 10/13/2018 02:53 PM Modules accepted: Orders RATORY HELPER * Addendum Note - Tommy Esparza CLT - 10/13/2018 1:00 PM CSTAddended by: TOMMY ESPARZA on: 10/13/2018 02:53 PM Modules accepted: Orders RATORY HELPER documented in this encounter Plan of Treatment Upcoming Encounters Date Type Department Care Team (Late st Contact Info) Description 11/09/2024 Plan of Care Documentation [address] [place] [address] documented as of this encounter Results * (ABNORMAL) Vedolizumab QN with Antibodies, S (10/13/2018 3:00 PM LABORATORY HELPER) [facility] Vedolizumab Qn 2.9(L) mcg/mL [facility] Comment: REFERENCE VALUE Lower limit of quantitation = 2.0 mcg/mL ADDITIONAL INFORMATION This test was developed and its performance characteristics determined by [facility] in a manner consistent with CLIA requirements. This test has not been cleared or approved by the U.S. Food and Drug Administration. Vedolizumab Ab <9.8 <9.8 ng/mL [facility] Vedolizumab interp See Footnote [facility] Comment: RESULT: Absence of detectable [id number]. ADDITIONAL INFORMATION This test was developed and its performance characteristics determined by [facility] in a manner consistent with CLIA requirements. This test has not been cleared or approved by the U.S. Food and Drug Administration. Test Performed by: [facility] [place] [address] Blood specimen (specimen) 10/13/2018 3:00 PM LABORATORY HELPER 10/13/2018 4:21 PM LABORATORY HELPER Narrative [facility] - 10/18/2018 3:24 PM LABORATORY HELPER us Paulina Jones MD LAB BLOOD ORDERABLE S Final Result [facility] [address] [facility]. [place] [address] documented in this encounter Visit Diagnoses Diagnosis Crohn's disease of small and large intestines with complication (HCC)- Primary Crohn's disease of small and large intestines with complication (HCC) documented in this encounter Administered Medications Inactive Administered Medications - up to 3 most recent administrations Medication Order MAR Action Action Date Dose Rate Site sodium chloride 0.9% flush 10 mL 10 mL, intravenous, As needed, line care, Flush pre and post IV catheter use, Starting on Tue10/13/18 at 1302Indications:Crohn's disease of small and large intestines with complication (HCC) Given 10/13/2018 1:20 PM LABORATORY HELPER 10 mL vedolizumab (ENTYVIO) 300 mg in sodium chloride 0.9% 250 mL IVPB 300 mg, intravenous, at 510 mL/hr, Administer over 30 Minutes, Once, On Tue10/13/18 at 1345, For 1 doseIndications:Crohn's disease of small and large intestines with complication (HCC) New Bag 10/13/2018 1:19 PM LABORATORY HELPER 300 mg 510 mL/hr documented in this encounter Orders Nursing Count Last Ordered Date First Orde red Date ONCBCN NO PREMEDS NEEDED 1 10/13/2018 VITAL SIGNS PRE-INFUSION 1 10/13/2018 Appointment Requests Count Last Ordered Date Fi rst Ordered Date INFUSION APPT REQUEST 60 MIN 1 10/13/2018 documented in this encounter Care Teams Electronics Technician Apprentice Relationship Specialty Start Date End Date Kirstie Jarrell MD PCP - General 08/29/17 08/06/21 documented as of this encounter
--- OUTSIDE RECORDS SUMMARY | 2024-11-11 19:16 | XMS_ITS | Encounter Summary ---
Author Organization [facility] [employer] [facility] Address [address] [place] [address] Phone Care Team Providers Care Make Up Operator Name Role Phone Kirstie Jarrell MD Primary Care Provider + Encounter Details Date Type Department Care Team (Late st Contact Info) Description 12/06/2018 Documentation [facility] Gastroenterology [facility] 8th [address] [place] [address] Brittney Herrera Social History Tobacco Use Types Packs/Day Years Used Date Smoking Tobacco: Former Smokeless Tobacco: Never Alcohol Use Standard Drinks/Week Comments Yes 0 (1 standard drink = 0.6 oz pur e alcohol) Sex and Gender Information Value Date Recorded Sex Assigned at Not on file 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 12/01/2018 Summer got auth for every 8 weeks, no every 6. ROAD REPAIRER documented in this encounter Plan of Treatment Upcoming Encounters Date Type Department Care Team (Late st Contact Info) Description 11/09/2024 Plan of Care Documentation [address] [place] [address] documented as of this encounter Visit Diagnoses Not on filedocumented in this encounter Care Teams Make Up Operator Relationship Specialty Start Date End Date Kirstie Jarrell MD PCP - General 08/29/17 08/06/21 documented as of this encounter
--- OUTSIDE RECORDS SUMMARY | 2024-11-11 19:16 | XMS_ITS | Encounter Summary ---
Author Organization [facility] [employer] [facility] Address [address] [place] [address] Phone Care Team Providers Care Counterintelligence Specialist Name Role Phone Kirstie Jarrell MD Primary Care Provider + Encounter Details Date Type Department Care Team (Late st Contact Info) Description 04/10/2018 Orders Only [facility] Gastroenterology On license of [facility] [address]th [place] [address] [place] [address] Rita Lama RN Crohn's disease of both small and large intestine without complication (CMS/HCC) (Primary Dx) Social History Tobacco Use Types Packs/Day Years Used Date Smoking Tobacco: Former Sex and Gender Information Value Date Recorded Sex Assigned at Not on file 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 30 tablet 11 04/10/2018 10/06/2018 documented in this encounter Plan of Treatment Upcoming Encounters Date Type Department Care Team (Late st Contact Info) Description 11/09/2024 Plan of Care Documentation [address] [address] [address] [place] [address] documented as of this encounter Visit Diagnoses Diagnosis Crohn's disease of both small and large intestine without complication (CMS/HCC) (HCC)- Primary documented in this encounter Historical Medications * This list may reflect changes made after this encounter. ANUCORT-HC 25 mg suppository Insert 1 suppository into the rectum 3 (three) times a week. 0 03/31/2018 9 added in this encounter Care Teams Counterintelligence Specialist Relationship Specialty Start Date End Date Kirstie Jarrell MD PCP - General 08/29/17 08/06/21 documented as of this encounter
--- OUTSIDE RECORDS SUMMARY | 2024-11-11 19:16 | XMS_ITS | Encounter Summary ---
Author Organization [facility] [employer] [facility] Address [address] [place] [address] Phone Care Team Providers Care Hand Mold Maker Name Role Phone Kirstie Jarrell MD Primary Care Provider + Encounter Details Date Type Department Care Team (Late st Contact Info) Description 08/23/2018 Orders Only [facility] Gastroenterology [address] [facility] 8th [address] [place] [address] Rita Lama RN Social History Tobacco Use Types Packs/Day Years Used Date Smoking Tobacco: Former Smokeless Tobacco: Never Alcohol Use Standard Drinks/Week Comments Yes 0 (1 standard drink = 0.6 oz pur e alcohol) Sex and Gender Information Value Date Recorded Sex Assigned at Not on file 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 Duplicate order 07/15/2015 08/23/2018 documented as of this encounter Historical Medications * This list may reflect changes made after this encounter. vedolizumab (ENTYVIO) 300 mg recon soln Infuse 300 mg into a venous catheter every 6 (six) weeks. Based on low drug level from 10/13/18 07/27/2019 added in this encounter Care Teams Hand Mold Maker Relationship Specialty Start Date End Date Kirstie Jarrell MD PCP - General 08/29/17 08/06/21 documented as of this encounter
--- OUTSIDE RECORDS SUMMARY | 2024-11-11 19:16 | XMS_ITS | Encounter Summary ---
Author Organization [facility] Address [address] [place] [address] Phone Care Team Providers Care Screen Repairer Crusher Name Role Phone Kirstie Jarrell MD Primary Care Provider + Encounter Details Date Type Department Care Team (Late st Contact Info) Description 04/28/2018 Orders Only [facility] [address] [facility] Medical Office Building [address] [place] [address] Paulina Jones MD [address] [place] [address] Social History Tobacco Use Types Packs/Day Years Used Date Smoking Tobacco: Former Smokeless Tobacco: Never Alcohol Use Standard Drinks/Week Comments Yes 0 (1 standard drink = 0.6 oz pur e alcohol) Sex and Gender Information Value Date Recorded Sex Assigned at Not on file 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 Gender Identity Not on file Sexual Orientation Not on file documented as of this encounter Plan of Treatment Upcoming Encounters Date Type Department Care Team (Late st Contact Info) Description 11/09/2024 Plan of Care Documentation [address] [place] [address] documented as of this encounter Procedures Procedure Name Priority Date/Time Associated Diagnosis Comments HEPATIC FUNCTION PANEL, SERUM Routine 04/28/2018 2:30 PM CDT CBC WITH AUTO DIFFERENTIAL Routine 04/28/2018 2:30 PM CDT documented in this encounter Results * CBC with auto differential (04/28/2018 2:30 PM CDT) WBC 6.4 3.8 - 10.8 Thousand/ uL [facility] [place] RBC, POC 4.65 4.20 - 5.80 Million/u L [facility] [place] Hgb 14.6 13.2 - 17.1 g/dL [facility] [place] Hct 42.6 38.5 - 50.0 % [facility] [place] MCV 91.6 80.0 - 100.0 fL [facility] [place] MCH 31.4 27.0 - 33.0 pg [facility] [place] MCHC 34.3 32.0 - 36.0 g/dL [facility] [place] Rdw 12.4 11.0 - 15.0 % [facility] [place] Platelets 230 140 - 400 Thousand/ uL [facility] [place] MPV 11.6 7.5 - 12.5 fL [facility] [place] Neutrophils, abs 4,064 1,500 - 7,800 cells/uL [facility] [place] Neutrophil bands, abs CANCELED 0 - 750 cells/uL [facility] [place] Comment:Result canceled by t he ancillary Metamyelocytes, abs CANCELED 0 cells/uL [facility] [place] Comment:Result canceled by t he ancillary Absolute Myelocytes CANCELED 0 cells/uL [facility] [place] Comment:Result canceled by t he ancillary Promyelocytes, abs CANCELED 0 cells/uL [facility] [place] Comment:Result canceled by t he ancillary Lymphocytes, abs 1,798 850 - 3,900 cells/uL [facility] [place] Monocyte abs 422 200 - 950 cells/uL [facility] [place] Eosinophils, abs 77 15 - 500 cells/uL [facility] [place] Basophils, abs 38 0 - 200 cells/uL [facility] [place] Blast, cell CANCELED 0 cells/uL [facility] [place] Comment:Result canceled by t he ancillary NRBC abs CANCELED 0 cells/uL [facility] [place] Comment:Result canceled by t he ancillary Neutrophils 63.5 % [facility] [place] Neutrophilic bands CANCELED % [facility] [place] Comment:Result canceled by t he ancillary Metamyelocyte pct CANCELED % [facility] [place] Comment:Result canceled by t he ancillary Myelocyte pct CANCELED % [facility] [place] Comment:Result canceled by t he ancillary Promyelocyte pct CANCELED % [facility] [place] Comment:Result canceled by t he ancillary Lymphocyte pct 28.1 % [facility] [place] Reactive lymph CANCELED 0 - 10 % [facility] [place] Comment:Result canceled by t he ancillary Monocytes 6.6 % [facility] [place] Eosinophils 1.2 % [facility] [place] Basophils 0.6 % [facility] [place] Blast pct CANCELED % [facility] [place] Comment:Result canceled by t he ancillary NRBC CANCELED 0 /100 WBC [facility] [place] Comment:Result canceled by t he ancillary Comment CANCELED [facility] [place] Comment:Result canceled by t he ancillary 04/28/2018 2:30 PM CDT 04/29/2018 7:51 AM CDT Narrative [facility] - 05/22/2018 8:44 AM CDT FASTING: UNKNOWN Resulting Agency Comment Performing Organization Information: ?Site ID: [place] ?Name: [facility] ?Address: [address] [place] [address] [place] [id number] ?Director: Barrington Quijano D.O., MPH us Paulina Jones MD LAB BLOOD ORDERABLE S Final Result [facility] [place] * Hepatic Function Panel, Serum (04/28/2018 2:30 PM CDT) Protein, sr 6.9 6.1 - 8.1 g/dL [facility] [place] Albumin 4.5 3.6 - 5.1 g/dL [facility] [place] GLOBULIN 2.4 1.9 - 3.7 g/dL (calc) [facility] [place] Alb/glob ratio 1.9 1.0 - 2.5 (calc) [facility] [place] Bilirubin, total 0.7 0.2 - 1.2 mg/dL [facility] [place] Bilirubin, direct 0.1 < OR = 0.2 mg/dL [facility] [place] Bilirubin, indirect 0.6 0.2 - 1.2 mg/dL (calc) [facility] [place] Alk phos 51 40 - 115 U/L [facility] [place] AST 28 10 - 40 U/L [facility] [place] ALT (SGPT) 40 9 - 46 U/L [facility] [place] 04/28/2018 2:30 PM CDT 04/29/2018 7:51 AM CDT Narrative [facility] - 05/22/2018 8:44 AM CDT FASTING: UNKNOWN Resulting Agency Comment Performing Organization Information: ?Site ID: [place] ?Name: [facility] ?Address: [address] [place] [address] ?Director: Barrington Quijano D.O., MPH us Paulina Jones MD LAB BLOOD ORDERABLE S Final Result [facility] [place] Garcia[place]STOP[place] walker documented in this encounter Visit Diagnoses Not on filedocumented in this encounter Care Teams Screen Repairer Crusher Relationship Specialty Start Date End Date Kirstie Jarrell MD PCP - General 08/29/17 08/06/21 documented as of this encounter
--- OUTSIDE RECORDS SUMMARY | 2024-11-11 19:16 | XMS_ITS | Encounter Summary ---
Author Organization [facility] Address [address] [place] [address] Phone Care Team Providers Care Research Investigator Name Role Phone Kirstie Jarrell MD Primary Care Provider + Encounter Details Date Type Department Care Team (Late st Contact Info) Description 12/08/2018 3:00 PM CNC CUTTING OPERATOR Lab [facility] Oncology [address] [facility] [address] [place] [id number] Crohn's disease of small and large intestines with complication (CMS/HCC) Social History Tobacco Use Types Packs/Day Years Used Date Smoking Tobacco: Former Smokeless Tobacco: Never Alcohol Use Standard Drinks/Week Comments Yes 0 (1 standard drink = 0.6 oz pur e alcohol) Sex and Gender Information Value Date Recorded Sex Assigned at Not on file Legal Sex Male 9:34 AM CNC CUTTING OPERATOR Gender Identity Not on file Sexual Orientation Not on file documented as of this encounter Plan of Treatment Upcoming Encounters Date Type Department Care Team (Late st Contact Info) Description 11/09/2024 Plan of Care Documentation [address] [address] [address] [place] [address] documented as of this encounter Procedures Procedure Name Priority Date/Time Associated Diagnosis Comments CBC WITHOUT DIFFERENTIAL Routine 12/08/2018 3:00 PM CNC CUTTING OPERATOR Crohn's disease of small and large intestines with complication (CMS/HCC) HEPATIC FUNCTION PANEL Routine 12/08/2018 3:00 PM CNC CUTTING OPERATOR Crohn's disease of small and large intestines with complication (CMS/HCC) documented in this encounter Results * Hepatic function panel (12/08/2018 3:00 PM CNC CUTTING OPERATOR) Pathologist [facility] Bilirubin, total 0.6 0.1 - 1.2 mg/dL [facility] Bilirubin, direct <0.2 0.1 - 0.3 mg/dL [facility] Protein, pl 7.2 6.5 - 8.5 g/dL [facility] Albumin 4.7 3.5 - 5.0 g/dL [facility] Alk phos 53 40 - 130 Units/L [facility] ALT 50 7 - 55 Units/L [facility] AST 35 10 - 50 Units/L [facility] Blood specimen (specimen) 12/08/2018 3:00 PM CNC CUTTING OPERATOR 12/08/2018 3:57 PM CNC CUTTING OPERATOR N[facility]ative [facility] - 12/08/2018 4:31 PM CNC CUTTING OPERATOR us Paulina Jones MD LAB BLOOD ORDERABLE S Final Result [facility] [address] [facility] Department [place] [address] * CBC without differential (12/08/2018 3:00 PM CNC CUTTING OPERATOR) Pathologist [facility] WBC 6.4 3.8 - 9.9 K/cumm [facility] Hgb 14.7 13.0 - 17.5 g/dL [facility] Hct 45.1 38.9 - 50.3 % [facility] Plt 254 150 - 400 K/cumm [facility] MPV 10.8 9.1 - 12.3 fL [facility] RBC 4.80 4.30 - 5.80 M/cumm [facility] MCV 94.0 81.3 - 96.4 fL [facility] MCH 30.6 27.1 - 33.3 pg [facility] MCHC 32.6 32.3 - 35.7 g/dL [facility] RDW CV 12.8 11.1 - 14.9 % [facility] RDW SD 44.1 35.7 - 48.1 fL [facility] NRBC abs 0.00 0.00 - 0.01 K/cumm [facility] Blood specimen (specimen) 12/08/2018 3:00 PM CNC CUTTING OPERATOR 12/08/2018 3:57 PM CNC CUTTING OPERATOR Narrative [facility] - 12/08/2018 4:07 PM CNC CUTTING OPERATOR Paulina Jones MD LAB BLOOD ORDERABLE S Final Result [facility] [address] [facility] [place] [address] documented in this encounter Visit Diagnoses Diagnosis Crohn's disease of small and large intestines with complication (HCC) documented in this encounter Care Teams Research Investigator Relationship Specialty Start Date End Date Kirstie Jarrell MD PCP - General 08/29/17 08/06/21 documented as of this encounter
--- OUTSIDE RECORDS SUMMARY | 2024-11-11 19:16 | XMS_ITS | Encounter Summary ---
Author Organization [facility] Address [address] [place] [address] Phone Care Team Providers Care Footwear Sales Leader Name Role Phone Kirstie Jarrell MD Primary Care Provider + Reason for Visit * Episode Based Medications (Routine) - Closed Specialty Diagnoses / Procedures Referred By Med bazan Referred To Contact Diagnoses Crohn's disease of small and large intestines with complication (HCC) Procedures [place] INJECTION, VEDOLIZUMAB Paulina Jones MD [address] [place] [address] Phone: tel: fax: [facility] [address] [place] [address] [address] [place] [address] Phone: tel: Referral ID Status Reason Start Date Expiration Date Visits Re quested Visits Authorized [id number] Closed 02/01/2019 02/16/2020 15 15 Encounter Details Date Type Department Care Team (Late st Contact Info) Description 12/08/2018 12:30 PM NETWORK SUPPORT MANAGER Infusion [facility] [address] [place] [address] [address] [place] [address] Crohn's disease of small and large intestines with complication (CMS/HCC) (Primary Dx) Social History Tobacco Use Types Packs/Day Years Used Date Smoking Tobacco: Former Smokeless Tobacco: Never Alcohol Use Standard Drinks/Week Comments Yes 0 (1 standard drink = 0.6 oz pur e alcohol) Sex and Gender Information Value Date Recorded Sex Assigned at Not on file Legal Sex Male 9:34 AM NETWORK SUPPORT MANAGER Gender Identity Not on file Sexual Orientation Not on file documented as of this encounter Last Filed Vital Signs Vital Sign Reading Time Taken Comments Blood Pressure 131/73 12/08/2018 1:30 PM NETWORK SUPPORT MANAGER Pulse 48 12/08/2018 1:30 PM NETWORK SUPPORT MANAGER Temperature 36.7 ??C (98.1 ??F) 12/08/2018 12:[address] Respiratory Rate - - Oxygen Saturation - - Inhaled Oxygen Concentration - - Weight - - Height - - Body Mass Index - - documented in this encounter Progress Notes * Adamaris Tavarez - 12/08/2018 12:30 PM CST Patient here for Entyvio infusion. Denies any symptoms of infection, fevers or recent surgery. Patient says he's feeling fine, I told him that they sent us a message about him switching to every 6 weeks for Entyvio, and he said he got that on his voicemail, and will do that, but he wants to talk tothem further about this too since he feels fine before his infusion, no flare ups or complaints. I encouraged him to reach out to his office and his MD about this and he said he will. Labs drawn fromIV site-CBC, LFTS. Patient tolerated infusion well. ORK SUPPORT MANAGER documented in this encounter Miscellaneous Notes * Addendum Note - Danna Martinez - 12/08/2018 12:30 PM CSTAddended by: DANNA MARTINEZ on: 12/08/2018 02:58 PM Modules accepted: Orders ORK SUPPORT MANAGER documented in this encounter Plan of Treatment Upcoming Encounters Date Type Department Care Team (Late st Contact Info) Description 11/09/2024 Plan of Care Documentation [facility] - [address] [place] [address] documented as of this encounter Visit Diagnoses [...] and post IV catheter use, Starting on Tue12/08/18 at 1242Indications:Crohn's disease of small and large intestines with complication (HCC) Given 12/08/2018 12:45 PM NETWORK SUPPORT MANAGER 10 mL vedolizumab (ENTYVIO) 300 mg in sodium chloride 0.9% 250 mL IVPB 300 mg, intravenous, at 510 mL/hr, Administer over 30 Minutes, Once, On Tue12/08/18 at 1315, For 1 doseIndications:Crohn's disease of small and large intestines with complication (HCC) New Bag 12/08/2018 12:55 PM NETWORK SUPPORT MANAGER 300 mg 510 mL/hr documented in this encounter Orders Nursing Count Last Ordered Date First Orde red Date ONCBCN NO PREMEDS NEEDED 1 12/08/2018 VITAL SIGNS PRE-INFUSION 1 12/08/2018 Appointment Requests Count Last Ordered Date Fi rst Ordered Date INFUSION APPT REQUEST 60 MIN 1 12/08/2018 documented in this encounter Care Teams Footwear Sales Leader Relationship Specialty Start Date End Date Kirstie Jarrell MD PCP - General 08/29/17 08/06/21 documented as of this encounter
--- OUTSIDE RECORDS SUMMARY | 2024-11-11 19:16 | XMS_ITS | Encounter Summary ---
Author Organization [facility] Healthcare Address [address] [place] [address] Care Team Providers Care Materials Intern Name Role Phone Kirstie Jarrell MD Primary Care Provider + Encounter Details Date Type Department Care Team (Late st Contact Info) Description 03/31/2018 7:07 AM CDT - 03/31/2018 9:25 AM CDT Hospital Encounter [facility] Procedure Holding [address] [place] [address] Lorna Velez MD [address] [facility] [address] [place], [place] [id number] Discharge Disposition: Discharge to home or self care Social History Tobacco Use Types Packs/Day Years Used Date Smoking Tobacco: Former Sex and Gender Information Value Date Recorded Sex Assigned at Not on file 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 0 03/31/2018 9 folic acid (FOLVITE) 1 mg tablet TAKE 1 TABLET BY MOUTH DAILY DIRECTED 08/27/2014 8 methotrexate 2.5 mg tablet TAKE 10 TABLETS BY MOUTH ONE TIME WEEKLY (ALL AT ONE TIME) (LABS DUE WITH EACH ENTYVIO INFUSION EVERY 8 WEEKS due 04/28/18) 06/19/2015 8 vedolizumab (ENTYVIO) 300 mg recon soln Infuse into a venous catheter. 07/15/2015 8 documented as of this encounter Discharge Disposition Disposition Code Departure Means Destination Discharge to home or self care documented in this encounter Plan of Treatment Upcoming Encounters Date Type Department Care Team (Late st Contact Info) Description 11/09/2024 Plan of Care Documentation [address] [place] [address] documented as of this encounter Procedures Procedure Name Priority Date/Time Associated Diagnosis Comments MRI ABDOMEN W WO CONTRAST Routine 03/31/2018 4:01 PM CDT INTERFERON GAMMA RELEASE ASSAY TB Routine 03/31/2018 11:42 AM CDT POC ISTAT Routine 03/31/2018 9:45 AM CDT SURGICAL PATHOLOGY Routine 03/31/2018 8: 53 AM CDT REFERENCE LABORATORY MISCELLANEOUS TESTING 03/31/2018 12:00 AM CDT COLONOSCOPY REPORT 03/31/2018 DISCHARGE LABORATORY CUMULATIVE REPORT 03/31/2018 12:00 AM CDT SURGICAL PATHOLOGY 03/31/2018 12 :00 AM CDT documented in this encounter Results * MRI Abdomen W WO Contrast (03/31/2018 4:01 PM CDT) Anatomical Region Laterality Modality Body N/A Magnetic Resonan ce 03/31/2018 4:01 PM CDT Narrative 03/31/2018 4:56 PM CDT ELLIOT BANDA M.D. BONNIE COVARRUBIAS M.D. FINAL REPORT The radiology attending physician has personally reviewed this study, and has reviewed and/or edited this written report and agrees with it. ACC# ??Date Time ??Exam [id number] March 31, 2018 11:01:00 [id number] MRI Abdomen wwo contrast EXAMINATION: ??MAGNETIC RESONANCE IMAGING OF THE ABDOMEN WITH AND WITHOUT CONTRAST HISTORY: Crohn's disease TECHNIQUE: Magnetic resonance imaging of the abdomen was performed prior to and following the uneventful administration of intravenous Gadolinium contrast. Oral Volumen and 1 mg of intravenous glucagon was administered prior to the examination. Protocol: MR Enterography Creatinine: 1.2 mg/dL Estimated GFR: Greater than 60 ml/min/1.73 meters squared Contrast: Dotarem 20 mL COMPARISON: 04/13/2016 FINDINGS: Bowel: There is mild enhancement along the terminal ileum spanning approximately 3-3.5cm. There is mild increased T2 signal intensity around the rectum. No evidence of fistula, intra-abdominal fluid collection or abscess. ??No upstream bowel dilatation to suggest fibro-stenosing disease. Liver/Bile Ducts: Normal. ??No focal liver lesions are seen. Gallbladder: Small amount of sludge is seen in the gallbladder. Pancreas: Normal Spleen: Mildly enlarged, 15 cm in craniocaudal dimension. Adrenals: Normal Kidneys: Normal Bladder: Normal Reproductive organs: Normal Other Findings: No lymphadenopathy in the abdomen or pelvis. No abnormal marrow signal intensity. IMPRESSION: ??1. Mild active inflammation spanning 3.5cm along the terminal ileum. No evidence of fistula, intra-abdominal abscess, or bowel obstruction. 2. Mild submucosal edema in the rectum corresponds to the area of inflammation noted on colonoscopy. Electronically signed by: Elliot Banda M.D. Requested By: LORNA VELEZ ??Joseph ? Dictated By: ?? BONNIE COVARRUBIAS M.D. ??on Mar 31 2018 11:26A This document has been electronically signed by: ELLIOT BANDA M.D. on Mar 31 2018 11:53A [id number] ROMERO M.D. FINAL REPORT The radiology attending physician has personally reviewed this study, and has reviewed and/or edited this written report and agrees with it. Attending: ??AGUSTIN, ??LORNA Requesting: ??AGUSTIN, ??LORNA Requesting Fax: ?? Attending Fax: ?? Attending ID: ??[id number] Requesting ID: ??[id number] Report To 1 ID: ??[id number] ? Report To 1 Name: ??, ?? Report To 1 FAX: ?? NextGen Order #: ?? Procedure Note Miscellaneous, Not In File - 03/31/2018 Joseph GALVAN M.D. FINAL REPORT The radiology attending physician has personally reviewed this study, and has reviewed and/or edited this written report and agrees with it. ACC# Date Time Exam [id number] March 31, 2018 11:01:00 [id number] MRI Abdomen wwo contrast EXAMINATION: MAGNETIC RESONANCE IMAGING OF THE ABDOMEN WITH AND WITHOUT CONTRAST HISTORY: Crohn's disease TECHNIQUE: Magnetic resonance imaging of the abdomen was performed prior to and following the uneventful administration of intravenous Gadolinium contrast. Oral Volumen and 1 mg of intravenous glucagon was administered prior to the examination. Protocol: MR Enterography Creatinine: 1.2 mg/dL Estimated GFR: Greater than 60 ml/min/1.73 meters squared Contrast: Dotarem 20 mL COMPARISON: 04/13/2016 FINDINGS: Bowel: There is mild enhancement along the terminal ileum spanning approximately 3-3.5cm. There is mild increased T2 signal intensity around the rectum. No evidence of fistula, intra-abdominal fluid collection or abscess. No upstream bowel dilatation to suggest fibro-stenosing disease. Liver/Bile Ducts: Normal. No focal liver lesions are seen. Gallbladder: Small amount of sludge is seen in the gallbladder. Pancreas: Normal Spleen: Mildly enlarged, 15 cm in craniocaudal dimension. Adrenals: Normal Kidneys: Normal Bladder: Normal Reproductive organs: Normal Other Findings: No lymphadenopathy in the abdomen or pelvis. No abnormal marrow signal intensity. IMPRESSION: 1. Mild active inflammation spanning 3.5cm along the terminal ileum. No evidence of fistula, intra-abdominal abscess, or bowel obstruction. 2. Mild submucosal edema in the rectum corresponds to the area of inflammation noted on colonoscopy. Electronically signed by: Elliot Banda M.D. Requested By: LORNA VELEZ M.D. Dictated By: BONNIE COVARRUBIAS M.D. on Mar 31 2018 11:26A This document has been electronically signed by: ELLIOT BANDA M.D. on Mar 31 2018 11:53A [id number] ROMERO M.D. FINAL REPORT The radiology attending physician has personally reviewed this study, and has reviewed and/or edited this written report and agrees with it. Attending: LORNA VELEZ Requesting: LORNA VELEZ Requesting Fax: Attending Fax: Attending ID: [id number] Requesting ID: [id number] Report To 1 ID: [id number] Report To 1 Name: , Report To 1 FAX: NextGen Order #: Lorna Velez MD IMG MRI PROCEDURES Final Result * Interferon gamma release assay tb (03/31/2018 11:42 AM CDT) [facility] IFN-Gamma Release Assay TB See scanned report [facility] Blood specimen (specimen) 03/31/2018 11:42 AM CDT 04/03/2018 8:46 AM CDT Narrative [facility] - 04/03/2018 10:49 AM CDT Lorna Velez MD LAB BLOOD ORDERABLE S Final Result Performing Organization Address [facility] Co de Phone Number [facility] [address] [facility]. [facility] [place] [address] * POC ISTAT (03/31/2018 9:45 AM CDT) [facility] Creatinine, POC, bld 1.2 0.6 - 1.3 mg/dL [facility] Comment: Interpretive data Creatinine <1.5 mg/dL and stable receive IV contrast. Creatinine 1.5-1.9 mg/dL and stable use Visipaque IV contrast. Current interpretive data last reviewed 2015. Blood specimen (specimen) 03/31/2018 9:45 AM CDT 03/31/2018 9:45 AM CDT Narrative [facility] - 03/31/2018 9:48 AM CDT Lorna Velez MD LAB BLOOD ORDERABLE S Final Result [facility] [address] [facility]. [place] [address] * Surgical pathology (03/31/2018 8:53 AM CDT) 03/31/2018 8:53 AM CDT 03/31/2018 11:19 AM CDT Narrative 04/04/2018 8:23 AM CDT [facility] [place] [address] SURGICAL PATHOLOGY REPORT FINAL Patient Name: DANTE PERALTA ? Address: [address] ??Service: ??Gastro ??[place], [place] ??[id number] ??Location: ??MILLY Taken: 03/31/2018 Gender: M ?? Received: 03/31/2018 : 1980 (Age: 37) ??Hospital #: ??[id number] Accessioned: 03/31/2018 ?Patient Type: ??WC SDS Reported: 04/04/2018 ?Client ? [facility] ? Physician(s): Joseph Martinez M.D. ? Diagnosis: A. ??Colon, sigmoid, polypectomy ? - Hyperplastic polyp fvw/04/04/2018 08:23 By this signature, I attest that the above diagnosis is based upon my personal examination of the slides(and/or other material indicated in the diagnosis). ?? Lainey Rodrigues M.D. ??Report Electronically Reviewed and Signed Out By ??Lainey Rodrigues M.D. 04/04/2018 08:23:19 Microscopic Description and Comment: Microscopic examination substantiates the above cited diagnosis. Microscopic slide review and interpretation for this case was performed at the [facility], ??[address] [place] ??[address] ?? CLIA # [id number] ? History: The patient is a 37-year-old man who presents for high risk colon cancer surveillance with a history of Crohn's disease of eight or more years duration. ??Operative procedure: Colonoscopy. ??Operative findings: Localized mild inflammation was found in the rectum. ??Normal mucosa in the entire examined colon, Chromoscopy performed. ??Stricture at the ileocecal valve, dilated. ??The examined portion of the ileum was normal. ?? Specimen(s) Received: A: Sigmoid colon Gross Description: Received in formalin labeled with the patient's name and sigmoid colon polyp is a single elongated piece of pale-hayes tissue measuring 0.5 cm in greatest dimension. ??Labeled A1. ??Jar 0. mab/03/31/2018 14:03 ?KAREEM Gatica ? By this signature, I attest that the above diagnosis is based upon my personal examination of the slides(and/or other material). ?? Surgical Pathology report is available electronically in Clinical Desktop. The performance characteristics of some immunohistochemical stains, fluorescence in-situ hybridization tests and immunophenotyping by flow cytometry cited in this report (if any) were determined by the Surgical Pathology Department at [facility] as part of an ongoing food quality technician program and in compliance with federally mandated [...] performance characteristics determined by the Surgical Pathology Department of [facility]. ??It has not been cleared or approved by the U. S. Food and Drug Administration. Result [facility] Lorna Velez MD LAB PATHOLOGY ORDER FLIP Final Result * SURGICAL PATHOLOGY (03/31/2018 12:00 AM CDT) Narrative 03/31/2018 12:00 AM CDT Ordered by an unspecified provider. Result [facility] Provider LAB PATHOLOGY ORDERABLES Final Result * DISCHARGE LABORATORY CUMULATIVE REPORT (03/31/2018 12:00 AM CDT) Narrative 03/31/2018 12:00 AM CDT Ordered by an unspecified provider. Result [facility] Provider MD LAB BLOOD ORDERABLES Génesis l Result * REFERENCE LABORATORY MISCELLANEOUS TESTING (03/31/2018 12:00 AM CDT) Narrative 03/31/2018 12:00 AM CDT Ordered by an unspecified provider. Result [facility] Provider MD LAB BLOOD ORDERABLES Génesis l Result * COLONOSCOPY REPORT (03/31/2018) Anatomical Region Laterality Modality Other Provider Scanning GI PROCEDURE ORDERABLES Final Result documented in this encounter Visit Diagnoses Not on filedocumented in this encounter Care Teams Materials Intern Relationship Specialty Start Date End Date Kirstie Jarrell MD PCP - General 08/29/17 08/06/21 documented as of this encounter
--- OUTSIDE RECORDS SUMMARY | 2024-11-11 19:16 | XMS_ITS | Encounter Summary ---
Author Organization [facility] Address [address] [place] [address] Phone Care Team Providers Care Recruiting And Selection Consultant Name Role Phone Kirstie Jarrell MD Primary Care Provider + Encounter Details Date Type Department Care Team (Late st Contact Info) Description 08/18/2018 4:30 PM CDT Lab [facility] Oncology [address] [facility] [facility] [address] [place] [id number] Crohn's disease of small and large intestines with complication (CMS/HCC) Social History Tobacco Use Types Packs/Day Years Used Date Smoking Tobacco: Former Smokeless Tobacco: Never Alcohol Use Standard Drinks/Week Comments Yes 0 (1 standard drink = 0.6 oz pur e alcohol) Sex and Gender Information Value Date Recorded Sex Assigned at Not on file 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 Gender Identity Not on file Sexual Orientation Not on file documented as of this encounter Plan of Treatment Upcoming Encounters Date Type Department Care Team (Late st Contact Info) Description 11/09/2024 Plan of Care Documentation [address] [address] [address] [place] [address] documented as of this encounter Procedures Procedure Name Priority Date/Time Associated Diagnosis Comments DIFFERENTIAL AUTO Routine 08/18/2018 3:1 5 PM CDT Crohn's disease of small and large intestines with complication (CMS/HCC) CBC WITH AUTO DIFFERENTIAL Routine 08/18/2018 3:15 PM CDT Crohn's disease of small and large intestines with complication (CMS/HCC) HEPATIC FUNCTION PANEL Routine 08/18/2018 3:15 PM CDT documented in this encounter Results * Hepatic function panel (08/18/2018 3:15 PM CDT) Bilirubin, total 0.5 0.1 - 1.2 mg/dL [facility] Bilirubin, direct <0.2 0.1 - 0.3 mg/dL [facility] Protein, pl 6.9 6.5 - 8.5 g/dL [facility] Albumin 4.5 3.5 - 5.0 g/dL [facility] Alk phos 55 40 - 130 Units/L [facility] ALT 47 7 - 55 Units/L [facility] AST 31 10 - 50 Units/L [facility] Blood specimen (specimen) 08/18/2018 3:15 PM CDT 08/18/2018 4:39 PM CDT Narrative [facility] - 08/18/2018 5:16 PM CDT us Paulina Jones MD LAB BLOOD ORDERABLE S Final Result [facility] [address] [facility]. [place] [address] * Differential, auto (08/18/2018 3:15 PM CDT) Neutrophil abs 5.0 1.7 - 6.5 K/cumm [facility] Imm gran abs 0.0 0.0 - 0.1 K/cumm [facility] Lymphocyte abs 2.0 0.8 - 3.3 K/cumm [facility] Monocyte abs 0.5 0.2 - 0.8 K/cumm [facility] Eosinophil abs 0.2 0.0 - 0.5 K/cumm [facility] Basophil abs 0.0 0.0 - 0.1 K/cumm [facility] Neutrophil pct 64.5 % [facility] Comment: Interpretive Data Percent cell count reference ranges are not reported, since discordance with absolute values may lead to misinterpretation of CBC data. Current Interpretive Data was last revised on 2018. Imm gran pct 0.1 % [facility] Comment: Interpretive Data Percent cell count reference ranges are not reported, since discordance with absolute values may lead to misinterpretation of CBC data. Current Interpretive Data was last revised on 2018. Lymphocyte pct 26.1 % [facility] Comment: Interpretive Data Percent cell count reference ranges are not reported, since discordance with absolute values may lead to misinterpretation of CBC data. Current Interpretive Data was last revised on 2018. Monocyte pct 6.8 % [facility] Comment: Interpretive Data Percent [...] last revised on 2018. Blood specimen (specimen) 08/18/2018 3:15 PM CDT 08/18/2018 4:39 PM CDT Narrative [facility] - 08/18/2018 4:47 PM CDT us Paulina Jones MD LAB BLOOD ORDERABLE S Final Result [facility] [address] [facility]. [place] [address] * CBC with auto differential (08/18/2018 3:15 PM CDT) WBC 7.7 3.8 - 9.9 K/cumm [facility] Hgb 14.7 13.0 - 17.5 g/dL [facility] Hct 44.5 38.9 - 50.3 % [facility] Plt 255 150 - 400 K/cumm [facility] MPV 10.9 9.1 - 12.3 fL [facility] RBC 4.79 4.30 - 5.80 M/cumm [facility] MCV 92.9 81.3 - 96.4 fL [facility] MCH 30.7 27.1 - 33.3 pg [facility] MCHC 33.0 32.3 - 35.7 g/dL [facility] RDW CV 12.7 11.1 - 14.9 % [facility] RDW SD 43.4 35.7 - 48.1 fL [facility] NRBC abs 0.00 0.00 - 0.01 K/cumm [facility] Blood specimen (specimen) 08/18/2018 3:15 PM CDT 08/18/2018 4:39 PM CDT Narrative [facility] - 08/18/2018 4:47 PM CDT us Paulina Jones MD LAB BLOOD ORDERABLE S Final Result [facility] [address] [facility]. Department [place] [address] documented in this encounter Visit Diagnoses Diagnosis Crohn's disease of small and large intestines with complication (HCC) documented in this encounter Care Teams Recruiting And Selection Consultant Relationship Specialty Start Date End Date Kirstie Jarrell MD PCP - General 08/29/17 08/06/21 documented as of this encounter
--- OUTSIDE RECORDS SUMMARY | 2024-11-11 19:16 | XMS_ITS | Encounter Summary ---
Author Organization [facility] Address [address] [place] [address] Phone Care Team Providers Care Comber Fixer Name Role Phone Kirstie Jarrell MD Primary Care Provider + Encounter Details Date Type Department Care Team (Late st Contact Info) Description 07/04/2018 Orders Only [facility] Gastroenterology [address] 8[address] [place] [address] [place] [address] Paulina Jones MD [address] [place] [address] Social History Tobacco Use Types Packs/Day Years Used Date Smoking Tobacco: Former Smokeless Tobacco: Never Alcohol Use Standard Drinks/Week Comments Yes 0 (1 standard drink = 0.6 oz pur e alcohol) Sex and Gender Information Value Date Recorded Sex Assigned at Not on file 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 30 capsule 5 07/04/2018 9 documented in this encounter Plan of Treatment Upcoming Encounters Date Type Department Care Team (Late st Contact Info) Description 11/09/2024 Plan of Care Documentation [address] [place] [address] documented as of this encounter Visit Diagnoses Not on filedocumented in this encounter Discontinued Medications Medication Sig Discontinue Reason Start Date End Da te nortriptyline (PAMELOR) 10 mg capsule TK 1 C PO HS Reorder 04/07/2018 07/04/2018 documented as of this encounter Care Teams Comber Fixer Relationship Specialty Start Date End Date Kirstie Jarrell MD PCP - General 08/29/17 08/06/21 documented as of this encounter
--- OUTSIDE RECORDS SUMMARY | 2024-11-11 19:16 | XMS_ITS | Encounter Summary ---
Author Organization [facility] [employer] [facility] Address [address] [place] [address] Phone Care Team Providers Care Solar Sales Associate Name Role Phone Kirstie Jarrell MD Primary Care Provider + Reason for Visit * Reason Comments OP Infusion entyvio * Episode Based Medications (Routine) - Closed Specialty Diagnoses / Procedures Referred By Med bazan Referred To Contact Diagnoses Crohn's disease of small and large intestines with complication (HCC) Procedures MS INJECTION, VEDOLIZUMAB Paulina Jones MD [address] [place] [address] Phone: tel: fax: [facility] Infusion Therapy [address] [place] [address] [address] [place] [address] Phone: tel: Referral ID Status Reason Start Date Expiration Date Visits Re quested Visits Authorized [id number] Closed 02/01/2019 02/16/2020 15 15 Encounter Details Date Type Department Care Team (Late st Contact Info) Description 06/23/2018 11:00 AM CDT Infusion [facility] Infusion Therapy [address] [place] [address] [address] [place] [address] Crohn's disease of small and large intestines with complication (CMS/HCC) (Primary Dx) Social History Tobacco Use Types Packs/Day Years Used Date Smoking Tobacco: Former Smokeless Tobacco: Never Alcohol Use Standard Drinks/Week Comments Yes 0 (1 standard drink = 0.6 oz pur e alcohol) Sex and Gender Information Value Date Recorded Sex Assigned at Not on file 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 Patient denies any active infections or upcoming surgeries. PIV placed, labs drawn and dose given. Patient tolerated dose well. documented in this encounter Plan of Treatment Upcoming Encounters Date Type Department Care Team (Late st Contact Info) Description 11/09/2024 Plan of Care Documentation [address] [address] [address] [place] [phone] documented as of this encounter Visit Diagnoses [...] and post IV catheter use, Starting on Tue06/23/18 at 1114Indications:Crohn's disease of small and large intestines with complication (HCC) Given 06/23/2018 11:35 AM CDT 10 mL vedolizumab (ENTYVIO) 300 mg in sodium chloride 0.9% 250 mL IVPB 300 mg, intravenous, at 510 mL/hr, Administer over 30 Minutes, Once, On Tue06/23/18 at 1200, For 1 doseIndications:Crohn's disease of small and large intestines with complication (HCC) New Bag 06/23/2018 11:30 AM CDT 300 mg 510 mL/hr documented in this encounter Orders Nursing Count Last Ordered Date First Orde red Date ONCBCN NO PREMEDS NEEDED 1 06/23/2018 VITAL SIGNS PRE-INFUSION 1 06/23/2018 Appointment Requests Count Last Ordered Date Fi rst Ordered Date INFUSION APPT REQUEST 60 MIN 2 08/18/2018 06/23/2018 documented in this encounter Care Teams Solar Sales Associate Relationship Specialty Start Date End Date Kirstie Jarrell MD PCP - General 08/29/17 08/06/21 documented as of this encounter
--- OUTSIDE RECORDS SUMMARY | 2024-11-11 19:16 | XMS_ITS | Encounter Summary ---
Author Organization [facility] [employer] [facility] Address [address] [place] [address] Phone Care Team Providers Care Communications Systems Engineer Name Role Phone Kirstie Jarrell MD Primary Care Provider + Encounter Details Date Type Department Care Team (Late st Contact Info) Description 10/19/2018 Documentation [facility] Gastroenterology [address] 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 Gender Identity Not on file Sexual Orientation Not on file documented as of this encounter Progress Notes * Brittney Herrera MA - 10/19/2018 11:14 AM CST Message INFUSIONS CHANGED TO EVERY 6 WEEKS BASED ON LOW DRUG LEVEL FORM 10/13/18, SUBMITTED TO PRE-CERT ON 10/19/18 PUNCHER documented in this encounter Plan of Treatment Upcoming Encounters Date Type Department Care Team (Late st Contact Info) Description 11/09/2024 Plan of Care Documentation [address] [place] [id number] documented as of this encounter Visit Diagnoses Not on filedocumented in this encounter Care Teams Communications Systems Engineer Relationship Specialty Start Date End Date Kirstie Jarrell MD PCP - General 08/29/17 08/06/21 documented as of this encounter
--- OUTSIDE RECORDS SUMMARY | 2024-11-11 19:16 | XMS_ITS | Encounter Summary ---
Author Organization [facility] [employer] [facility] Address [address] [place] [address] Phone Care Team Providers Care Six Pack Loader Operator Name Role Phone Kirstie Jarrell MD Primary Care Provider + Encounter Details Date Type Department Care Team (Late Contact Info) Description 10/17/2018 Orders Only [facility] Gastroenterology [address] [facility] 8th [place] [address] [place] [address] Rita Lama, SANDRA Crohn's disease of both small and large intestine without complication (CMS/HCC) Social History Tobacco Use Types Packs/Day Years Used Date Smoking Tobacco: Former Smokeless Tobacco: Never Alcohol Use Standard Drinks/Week Comments Yes 0 (1 standard drink = 0.6 oz pur e alcohol) Sex and Gender Information Value Date Recorded Sex Assigned at Not on file 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 Safety labs due with each infusion 120 tablet 1 10/17/2018 9 documented in this encounter Plan of Treatment Upcoming Encounters Date Type Department Care Team (Late st Contact Info) Description 11/09/2024 Plan of Care Documentation [address] [place] [address] documented as of this encounter Visit Diagnoses [...] Safety labs due with each infusion Reorder 10/06/2018 10/17/2018 documented as of this encounter Care Teams Six Pack Loader Operator Relationship Specialty Start Date End Date Kirstie Jarrell MD PCP - General 08/29/17 08/06/21 documented as of this encounter
--- OUTSIDE RECORDS SUMMARY | 2024-11-11 19:16 | XMS_ITS | Encounter Summary ---
Author Organization [facility] Address [address] [place] [address] Phone Care Team Providers Care U.S. Revenue Officer Name Role Phone Kirstie Jarrell MD Primary Care Provider + Encounter Details Date Type Department Care Team (Late st Contact Info) Description 06/01/2018 Orders Only 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 Use as directed 15 g 2 06/01/2018 8 documented in this encounter Plan of Treatment Upcoming Encounters Date Type Department Care Team (Late st Contact Info) Description 11/09/2024 Plan of Care Documentation [address] [place] [address] documented as of this encounter Visit Diagnoses Not on filedocumented in this encounter Care Teams U.S. Revenue Officer Relationship Specialty Start Date End Date Kirstie Jarrell MD PCP - General 08/29/17 08/06/21 documented as of this encounter
--- OUTSIDE RECORDS SUMMARY | 2024-11-11 19:16 | XMS_ITS | Encounter Summary ---
Author Organization [facility] Address [address] [place] [address] Phone Care Team Providers Care Associate Store Manager Name Role Phone Kirstie Jarrell MD Primary Care Provider + Reason for Visit * Episode Based Medications (Routine) - Closed Specialty Diagnoses / Procedures Referred By Med bazan Referred To Contact Diagnoses Crohn's disease of small and large intestines with complication (HCC) Procedures IN INJECTION, VEDOLIZUMAB Paulina Jones MD [address] [place] [address] Phone: tel: fax: [facility] [address] [place] [address] [address] [place] [address] Phone: tel: Referral ID Status Reason Start Date Expiration Date Visits Re quested Visits Authorized [id number] Closed 02/01/2019 02/16/2020 15 15 Encounter Details Date Type Department Care Team (Late st Contact Info) Description 04/28/2018 2:00 PM CDT Infusion [facility] [address] [place] [address] [address] [place] [address] Crohn's disease of small and [...] file Legal 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 Labs sent to [facility] confirmation # [id number] Tolerated infusion well documented in this encounter Miscellaneous Notes * Addendum Note - Keila Beach - 04/28/2018 2:00 PM CDTAddended by: KEILA BEACH on: 06/23/2018 02:24 PM Modules accepted: Orders documented in this encounter Plan of Treatment Upcoming Encounters Date Type Department Care Team (Late st Contact Info) Description 11/09/2024 Plan of Care Documentation [address] [address] [address] [place] [address] documented as of this encounter Visit Diagnoses [...] and post IV catheter use, Starting on Tue04/28/18 at 1419Indications:Crohn's disease of small and large intestines with complication (HCC) Given 04/28/2018 2:25 PM CDT 10 mL vedolizumab (ENTYVIO) 300 mg in sodium chloride 0.9% 250 mL IVPB 300 mg, intravenous, at 510 mL/hr, Administer over 30 Minutes, Once, On Tue04/28/18 at 1500, For 1 dose, Flush line with Sodium chloride 0.9 %.Indications:Crohn's disease of small and large intestines with complication (HCC) New Bag 04/28/2018 2:45 PM CDT 300 mg 510 mL/ hr documented in this encounter Orders Nursing Count Last Ordered Date First Orde red Date ONCBCN NO PREMEDS NEEDED 1 04/28/2018 VITAL SIGNS PRE-INFUSION 1 04/28/2018 Appointment Requests Count Last Ordered Date Fi rst Ordered Date INFUSION APPT REQUEST 60 MIN 1 06/23/2018 documented in this encounter Care Teams Associate Store Manager Relationship Specialty Start Date End Date Kirstie Jarrell MD PCP - General 08/29/17 08/06/21 documented as of this encounter
--- OUTSIDE RECORDS SUMMARY | 2024-11-11 19:16 | XMS_ITS | Encounter Summary ---
Author Organization [facility] [employer] [facility] Address [address] [place] [address] Phone Care Team Providers Care Technical Inspector Name Role Phone Kirstie Jarrell MD Primary Care Provider + Encounter Details Date Type Department Care Team (Late st Contact Info) Description 04/24/2018 Orders Only [facility] Gastroenterology [address] [place] [address] Medical Office [address] [place] [address] Rita Lama RN Crohn's disease of both small and large intestine without complication (CMS/HCC) (Primary Dx) Social History Tobacco Use Types Packs/Day Years Used Date Smoking Tobacco: Former Sex and Gender Information Value Date Recorded Sex Assigned at Not on file 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 Sex Male 9:34 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 Gender Identity Not on file Sexual Orientation Not on file documented as of this encounter Ordered Prescriptions Prescription Sig Dispense Quantity Refills Last Filled Start Date End Date methotrexate 2.5 mg tabletIndications: Crohn's disease of both small and large intestine without complication (CMS/HCC) (HCC) Take 10 tabs PO One day per week( safety labs due with each Entyvio Infusion) 120 tablet 04/24/2018 8 documented in this encounter Plan of Treatment Upcoming Encounters Date Type Department Care Team (Late st Contact Info) Description 11/09/2024 Plan of Care Documentation [address] [place] [address] documented as of this encounter Visit Diagnoses Diagnosis Crohn's disease of both small and large intestine without complication (CMS/HCC) (HCC)- Primary documented in this encounter Care Teams Technical Inspector Relationship Specialty Start Date End Date Kirstie Jarrell MD PCP - General 08/29/17 08/06/21 documented as of this encounter
--- OUTSIDE RECORDS SUMMARY | 2024-11-11 19:16 | XMS_ITS | Encounter Summary ---
Author Organization [facility] [employer] [facility] Address [address] [place] [address] Phone Care Team Providers Care Rental Counter Clerk Name Role Phone Kirstie Jarrell MD Primary Care Provider + Encounter Details Date Type Department Care Team (Late st Contact Info) Description 04/27/2018 Orders Only [facility] Gastroenterology [address] [facility] 8th [place] [address] [place] [address] Loan Harmon RN Social History Tobacco Use Types Packs/Day Years Used Date Smoking Tobacco: Former Smokeless Tobacco: Never Alcohol Use Standard Drinks/Week Comments Yes 0 (1 standard drink = 0.6 oz pur e alcohol) Sex and Gender Information Value Date Recorded Sex Assigned at Not on file Legal Sex Male 9:34 AM RADIOLOGY NURSE Gender Identity Not on file Sexual Orientation Not on file documented as of this encounter Plan of Treatment Upcoming Encounters Date Type Department Care Team (Late st Contact Info) Description 11/09/2024 Plan of Care Documentation [address] [address] [address] [place] [address] documented as of this encounter Visit Diagnoses Not on filedocumented in this encounter Care Teams Rental Counter Clerk Relationship Specialty Start Date End Date Kirstie Jarrell MD PCP - General 08/29/17 08/06/21 documented as of this encounter
--- OUTSIDE RECORDS SUMMARY | 2024-11-11 19:16 | XMS_ITS | Encounter Summary ---
Author Organization [facility] [employer] [facility] Address [address] [place] [address] Phone Care Team Providers Care Wood Barrel Reconditioner Name Role Phone Kirstie Jarrell MD Primary Care Provider + Encounter Details Date Type Department Care Team (Late st Contact Info) Description 04/20/2018 Orders Only [facility] Gastroenterology [address] [facility] 8th [place] [address] [place] [address] Loan Harmon RN Social History Tobacco Use Types Packs/Day Years Used Date Smoking Tobacco: Former Sex and Gender Information Value Date Recorded Sex Assigned at Not on file Legal Sex Male 9:34 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
--- OUTSIDE RECORDS SUMMARY | 2024-11-11 19:16 | XMS_ITS | Encounter Summary ---
Author Organization [facility] [employer] [facility] Address [address] [place] [address] Phone Care Team Providers Care Emt Paramedic Name Role Phone Kirstie Jarrell MD Primary Care Provider + Reason for Visit * Reason Onset Date Comments low entyvio level form 10/13/18 10/19/2018 Encounter Details Date Type Department Care Team (Late st Contact Info) Description 10/19/2018 Telephone [facility] Gastroenterology [address] [facility] 8th [place] [address] [place] [address] Rita Lama RN low entyvio level form 10/13/18 Social History Tobacco Use Types Packs/Day Years Used Date Smoking Tobacco: Former Smokeless Tobacco: Never Alcohol Use Standard Drinks/Week Comments Yes 0 (1 standard drink = 0.6 oz pur e alcohol) Sex and Gender Information Value Date Recorded Sex Assigned at Not on file Legal Sex Male 9:34 AM INTERNAL SALES ENGINEER Gender Identity Not on file Sexual Orientation Not on file documented as of this encounter Miscellaneous Notes * Telephone Encounter - Rita Lama RN - 10/19/2018 10:04 AM CST LMOR that the Drug Entyvio level from 10/13/18 came back low. The AIRBORNE AND AIR DELIVERY SPECIALIST/MD is making the recommendationto change the frequency to every 6 weeks from every 8 weeks. The dose ( 300 mg) is standard so here is no increasing the dose only changing the frequency. New order sent to [facility] on 10/19/18, once approved patient will be notified to adjust infusion appointments accordingly RNAL SALES ENGINEER documented in this encounter Plan of Treatment Upcoming Encounters Date Type Department Care Team (Late st Contact Info) Description 11/09/2024 Plan of Care Documentation [address] [place] [address] documented as of this encounter Visit Diagnoses Not on filedocumented in this encounter Care Teams Emt Paramedic Relationship Specialty Start Date End Date Kirstie Jarrell MD PCP - General 08/29/17 08/06/21 documented as of this encounter
--- OUTSIDE RECORDS SUMMARY | 2024-11-11 19:16 | XMS_ITS | Encounter Summary ---
Author Organization [facility] [employer] [facility] Address [address] [place] [address] Phone Care Team Providers Care Junior High School Teacher Name Role Phone Kirstie Jarrell MD Primary Care Provider + Encounter Details Date Type Department Care Team (Late st Contact Info) Description 11/16/[address] [facility] Gastroenterology [facility] 8th [place] [address] [place] [address] Brittney Herrera Social History Tobacco Use Types Packs/Day Years Used Date Smoking Tobacco: Former Smokeless Tobacco: Never Alcohol Use Standard Drinks/Week Comments Yes 0 (1 standard drink = 0.6 oz pur e alcohol) Sex and Gender Information Value Date Recorded Sex Assigned at Not on file Legal Sex Male 9:34 AM HVAC SERVICE TECH Gender Identity Not on file Sexual Orientation Not on file documented as of this encounter Progress Notes * Brittney Herrera MA - 11/16/2018 1:02 PM CST Sent precert staff message asking for update. SERVICE TECH documented in this encounter Plan of Treatment Upcoming Encounters Date Type Department Care Team (Late st Contact Info) Description 11/09/2024 Plan of Care Documentation [address] [address] [address] [place] [address] documented as of this encounter Visit Diagnoses Not on filedocumented in this encounter Care Teams Junior High School Teacher Relationship Specialty Start Date End Date Kirstie Jarrell MD PCP - General 08/29/17 08/06/21 documented as of this encounter
--- OUTSIDE RECORDS SUMMARY | 2024-11-11 19:16 | XMS_ITS | Encounter Summary ---
Author Organization [facility] [employer] [facility] Address [address] [place] [address] Phone Care Team Providers Care Oil Spot Washer Name Role Phone Kirstie Jarrell MD Primary Care Provider + Reason for Visit * Reason Comments OP Infusion Entyvio * Episode Based Medications (Routine) - Closed Specialty Diagnoses / Procedures Referred By Med bazan Referred To Contact Diagnoses Crohn's disease of small and large intestines with complication (HCC) Procedures HI INJECTION, VEDOLIZUMAB Paulina Jones MD [address] [place] [address] Phone: tel: fax: [facility] Infusion Therapy [address] [place] [address] [address] [place] [address] Phone: tel: Referral ID Status Reason Start Date Expiration Date Visits Re quested Visits Authorized [id number] Closed 02/01/2019 02/16/2020 15 15 Encounter Details Date Type Department Care Team (Late st Contact Info) Description 08/18/2018 3:00 PM CDT Infusion [facility] Infusion Therapy [address] [place] [address] [address] [place] [address] Crohn's disease of small and large intestines with complication (CMS/HCC) (Primary Dx) Social History Tobacco Use Types Packs/Day Years Used Date Smoking Tobacco: Former Smokeless Tobacco: Never Alcohol Use Standard Drinks/Week Comments Yes 0 (1 standard drink = 0.6 oz pur e alcohol) Sex and Gender Information Value Date Recorded Sex Assigned at Not on file 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 Patient denies any active infections or upcoming surgeries. PIV placed, labs obtained and dose infused. Patient tolerated infusion well. documented in this encounter Plan of Treatment Upcoming Encounters Date Type Department Care Team (Late st Contact Info) Description 11/09/2024 Plan of Care Documentation [address] [address] [address] [place] [address] documented as of this encounter Visit Diagnoses [...] and post IV catheter use, Starting on Tue08/18/18 at 1527Indications:Crohn's disease of small and large intestines with complication (HCC) Given 08/18/2018 3:20 PM CDT 10 mL vedolizumab (ENTYVIO) 300 mg in sodium chloride 0.9% 250 mL IVPB 300 mg, intravenous, at 510 mL/hr, Administer over 30 Minutes, Once, On Tue08/18/18 at 1600, For 1 doseIndications:Crohn's disease of small and large intestines with complication (HCC) New Bag 08/18/2018 3:25 PM CDT 300 mg 510 mL/hr documented in this encounter Orders Nursing Count Last Ordered Date First Orde red Date ONCBCN NO PREMEDS NEEDED 1 08/18/2018 VITAL SIGNS PRE-INFUSION 1 08/18/2018 Appointment Requests Count Last Ordered Date Fi rst Ordered Date INFUSION APPT REQUEST 60 MIN 2 10/13/2018 08/18/2018 documented in this encounter Care Teams Oil Spot Washer Relationship Specialty Start Date End Date Kirstie Jarrell MD PCP - General 08/29/17 08/06/21 documented as of this encounter
--- OUTSIDE RECORDS SUMMARY | 2024-11-11 19:16 | XMS_ITS | Encounter Summary ---
Author Organization [facility] Address [address] [facility] [address] [place] [address] Phone Care Team Providers Care Kiln Worker Name Role Phone Kirstie Jarrell MD Primary Care Provider + Reason for Visit * Reason Comments New Patient crohn's disease Encounter Details Date Type Department Care Team (Late st Contact Info) Description 04/27/2018 9:30 AM CDT Office Visit [facility] [address] [facility] 8th [place] [address] [place] [address] Larry De La Garza MD [address] [facility] [phone] [place] [address] Crohn's disease of both small and large intestine with intestinal obstruction (CMS/HCC) (Primary Dx) Social History Tobacco Use Types Packs/Day Years Used Date Smoking Tobacco: Former Smokeless Tobacco: Never Tobacco Cessation:Counseling Given: No Alcohol Use Standard Drinks/Week Comments Yes 0 (1 standard drink = 0.6 oz pur e alcohol) Sex and Gender Information Value Date Recorded Sex Assigned at Not on file 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 Gender Identity Not on file Sexual Orientation Not on file documented as of this encounter Last Filed Vital Signs Vital Sign Reading Time Taken Comments Blood Pressure 133/88 04/27/2018 9:40 AM CDT Pulse 65 04/27/2018 9:40 AM CDT Temperature 36.5 ??C (97.7 ??F) 04/27/2018 9:40 AM CD T Respiratory Rate - - Oxygen Saturation - - Inhaled Oxygen Concentration - - Weight 117.9 kg (260 lb) 04/27/2018 9:40 AM CDT Height 190.5 cm (6' 3 ) 04/27/2018 9:40 AM CDT Body Mass Index 32.5 04/27/2018 9:40 AM CDT documented in this encounter Progress Notes * Larry De La Garza MD - 04/27/2018 9:30 AM CDT Colon & Rectal Surgery Note Patient: Ranjit Peralta : 1980 Chief complaint of ileocecal Crohn's, requested to be seen by Paulina Chang* HPI: Mr. Peralta is a 37 y.o. male referred for evaluation for surgical resection for terminal ileal Crohn's disease. Patient is currently asymptomatic however in August he is admitted with a small-bowel obstruction due to stenosis in his terminal ileum. This resolved with nasogastric tube decompression. He subsequently underwent balloon dilatation to 20 mm. Most recent examination shows recurrent stricture just proximal to the ileocecal valve. I personally reviewed and MRE study. This shows a short-segment measuring 3.5 cm in length of terminal ileal inflammation without evidence of other disease. At present, the patient is maintained on in tibial and methotrexate. He denies any abdominal cramping, has a stable weight, and has regular formed bowel movements. Does have a remote history of perianal Crohn's disease managed with seton placement and drainage procedures. He denies any symptoms at present. Colonoscopy on 03/31/2018 showed the known ileal stricture, as well as mild inflammation within therectum. The remainder of the colon was normal. Past Medical History: Diagnosis Date ??? Anal abscess Perianal abscess - (Added by TW Conv) ??? Anal fistula Anal fistula - (Added by TW Conv) ??? Crohn's disease (CMS/HCC) ??? Personal history of other diseases of the digestive system History of Crohn's disease - (Added by TW Conv) Past Surgical History: Procedure Laterality Date ??? ABCESS DRAINAGE 04/06/2013 ??? ANAL FISTULOTOMY 08/22/2013 (Not in a hospital admission) No Known Allergies Social History Substance Use Topics ??? Smoking status: Former Smoker ??? Smokeless tobacco: Never Used ??? Alcohol use Yes Family History Problem Relation Age of Onset ??? Diabetes Maternal Grandfather Family history of diabetes mellitus - (Added by TW Conv)/Family history of diabetes mellitus - (Added by TW Conv) ??? Cancer Maternal Grandmother Review of Systems: Refer to scanned media, dated 04/27/2018 Vitals: Arrival Vitals [04/27/18 0940] Temp 36.5 ??C (97.7 ??F) Pulse 65 Resp BP 133/88 SpO2 Temp src Heart Rate Source Patient Position BP Location FiO2 (%) Physical exam: Appearance - well developed, well nourished Orientation - alert and oriented x 3 Eyes - anicteric Neuro - non-focal Lungs - no wheezing Cardiac - regular rate and rhythm Extremities - within normal limits grossly Inguinal Nodes - no adenopathy Abdomen - soft nontender nondistended Lab/Radiology/Diagnostic Review: Imaging review: I have independently examined the MRE image(s). My findings are As described above Assessment & Plan: (K50.812) Crohn's disease of both small and large intestine with intestinal obstruction (CMS/HCC) (primary encounter diagnosis) Terminal ileal Crohn's disease with short-segment stricture. I discussed with the patient and his the option of laparoscopic ileocecectomy. As the patient is currently asymptomatic, he would prefer to defer surgery for several months. He will contact my office to arrange surgery and CPAP appointment. Written literature was provided. The risks of surgery including but not limited to bleeding,infection, anastomotic leakage, need for repeat surgery or possible ileostomy were all discussed. He understands Crohn's is a lifelong disease and may recur at the anastomosis. All questions were answered the patient will contact my office in the near future. Larry De La Garza MD 04/27/2018 10:38 AM documented in this encounter Plan of Treatment Upcoming Encounters Date Type Department Care Team (Late st Contact Info) Description 11/09/2024 Plan of Care Documentation [address] [address] [address] [place] [address] documented as of this encounter Visit Diagnoses Diagnosis Crohn's disease of both small and large intestine with intestinal obstruction (HCC)- Primary documented in this encounter Discontinued Medications Medication Sig Discontinue Reason Start Date End Da te folic acid (FOLVITE) 1 mg tablet TAKE 1 TABLET BY MOUTH DAILY DIRECTED Duplicate order 08/27/2014 04/27/2018 documented as of this encounter Care Teams Kiln Worker Relationship Specialty Start Date End Date Kirstie Jarrell MD PCP - General 08/29/17 08/06/21 documented as of this encounter
--- OUTSIDE RECORDS SUMMARY | 2024-11-11 19:16 | XMS_ITS | Encounter Summary ---
Author Organization [facility] Address [address] [place] [address] Phone Care Team Providers Care Resistor Tester Name Role Phone Kirstie Jarrell MD Primary Care Provider + Encounter Details Date Type Department Care Team (Late st Contact Info) Description 04/26/2018 Orders Only [facility] Gastroenterology [address] [facility] 8th [place] [address] [place] [address] Ayaka Becker RMA Social History Tobacco Use Types Packs/Day Years Used Date Smoking Tobacco: Former Sex and Gender Information Value Date Recorded Sex Assigned at Not on file Legal Sex Male 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 methotrexate 2.5 mg tablet TAKE 10 TABLETS BY MOUTH ONE TIME WEEKLY (ALL AT ONE TIME) (LABS DUE WITH EACH ENTYVIO INFUSION EVERY 8 WEEKS due 04/28/18) 06/19/2015 06/26/2018 folic acid (FOLVITE) 1 mg tablet TAKE 1 TABLET BY MOUTH DAILY DIRECTED 08/27/2014 04/27/2018 nortriptyline (PAMELOR) 10 mg capsule TK 1 C PO HS 3 04/07/2018 07/04/2018 ergocalciferol (VITAMIN D) 50,000 unit capsule TK ONE C PO MONTHLY 0 04/07/2018 05/17/2019 vedolizumab (ENTYVIO) 300 mg recon soln Infuse into a venous catheter. 07/15/2015 08/23/2018 added in this encounter Care Teams Resistor Tester Relationship Specialty Start Date End Date Kirstie Jarrell MD PCP - General 08/29/17 08/06/21 documented as of this encounter
--- OUTSIDE RECORDS SUMMARY | 2024-11-11 19:16 | XMS_ITS | Encounter Summary ---
Author Organization [facility] Address [address] [place] [address] Phone Care Team Providers Care Cutting Inspector Name Role Phone Kirstie Jarrell MD Primary Care Provider + Encounter Details Date Type Department Care Team (Latest Contact Info) Description 10/06/2018 8:30 AM LOANS CONSULTANT Office Visit [facility] Gastroenterology [facility] 8th [place] [address] [place] [address] Izabela Gregory, CASINO CAGE MANAGER [address] [place] [address] Crohn's disease of small and large intestines with complication (CMS/HCC) (Primary Dx); Crohn's disease of both small and large intestine without complication (CMS/HCC); Stricture intestinal (CMS/HCC); High risk medications (not anticoagulants) long-term use; Need for 23-polyvalent pneumococcal polysaccharide vaccine Social History Tobacco Use Types Packs/Day Years Used Date Smoking Tobacco: Former Smokeless Tobacco: Never Alcohol Use Standard Drinks/Week Comments Yes 0 (1 standard drink = 0.6 oz pur e alcohol) Sex and Gender Information Value Date Recorded Sex Assigned at Not on file Legal Sex Male 9:34 AM LOANS CONSULTANT Gender Identity Not on file Sexual Orientation Not on file documented as of this encounter Last Filed Vital Signs Vital Sign Reading Time Taken Comments Blood Pressure 153/89 10/06/2018 8:39 AM LOANS CONSULTANT Pulse 48 10/06/2018 8:39 AM LOANS CONSULTANT Temperature 36.8 ??C (98.3 ??F) 10/06/2018 8:39 AM CS T Respiratory Rate - - Oxygen Saturation - - Inhaled Oxygen Concentration - - Weight 119.3 kg (263 lb) 10/06/2018 8:39 AM LOANS CONSULTANT Height 190.5 cm (6' 3 ) 10/06/2018 8:39 AM LOANS CONSULTANT Body Mass Index 32.87 10/06/2018 8:39 AM LOANS CONSULTANT documented in this encounter Patient Instructions * Patient Instructions* Rita Lama RN - 10/06/2018 8:30 AM LOANS CONSULTANT Labs with Each infusion, due 10/13/18- Entyvio level added to labs Flu vaccine is recommended if not already vaccinated. Pneumonia vaccine recommended Follow up in office in 6 months MTX and folic acid to local [facility] S CONSULTANT S CONSULTANT S CONSULTANT S CONSULTANT documented in this encounter Ordered Prescriptions Prescription Sig Dispense Quantity Refills Last Filled Start Date End Date folic acid (FOLVITE) 1 mg tabletIndications: Crohn's disease of both small and large intestine without complication (CMS/HCC) (HCC) Take 1 tablet (1 mg total) by mouth daily. 30 tablet 10/06/2018 9 methotrexate 2.5 mg tabletIndications: Crohn's disease of both small and large intestine without complication (CMS/HCC) (HCC) Take 10 tablets by mouth one time weekly. Safety labs due with each infusion 120 tablet 1 10/06/2018 8 documented in this encounter Progress Notes * Izabela Gregory, LISS - 10/06/2018 8:30 AM CST REASON FOR VISIT: Follow-up for ileocolonic Crohn's disease with a known ileocecal valve stricture. CURRENT MEDICATIONS: 1. Entyvio 300 mg every 8 weeks. 2. Folic acid 1 mg daily. 3. Hydrocortisone suppositories 3 days a week. 4. Nortriptyline 10 mg at bedtime. 5. Vitamin D 50,000 units once a month. 6. Methotrexate 6 tablets weekly PROBLEM LIST: 1. Ileocolonic and perianal Crohn's disease diagnosed in 2006 with a presentation of hematochezia and a perianal fistula with abscess. The patient was previously treated with Humira, Cimzia, Remicade, methotrexate, 6-MP, and most recently on a combination of Entyvio and methotrexate. The patient stopped taking methotrexate a few weeks ago of unclear reasons and has remained on Entyvio with his most recent colonoscopy done predominantly on Entyvio, but it is not clear to me how long it has been off of methotrexate. The most recent colonoscopy did demonstrate active proctitis, but no disease either in the rest of the colon or his terminal ileum; the patient did have a tight stricture noted inthe most recent MRE and colonoscopy from April 2016, as well as most recent MRE and colonoscopy fromMarch 2018. 2. Gout flares while on allopurinol. HISTORY OF PRESENT ILLNESS: Ranjit is a gabby 37-year-old male with a past medical history of ileocolonic and perianal Crohn's disease, who presents today for a follow-up. The patient was last seen in Dr. Jones clinic on 04/06/2018 at which time the patient had recently had colonoscopy that demonstrated proctitis the known stricture at the ileocecal valve that was dilated. He had had a small-bowel obstruction in August 2017. As the patient was no longer on methotrexate he was encouraged to restart this given the evidence proctitis. He was also advised to consider surgery for the known stricture as it was felt to be fibrotic. Patient presents today reporting that he is tolerating methotrexate tablets. He tends to have mood changes on full dose methotrexate injectable. He can tolerate the 15 mg orally but is not huge fan of the medicine. He used Uceris from in June for his proctitis and found this quite helpful. He denies any anticipation his Entyvio. He has not had any obstructive symptoms and states that if he eatssensibly he does not feel have a problem. It is as he has started a new position he does not believe he can take the necessary time off until at least February if surgery is necessary. He has not had his flu shot yet but his , who is a nurse, has a vial ready for him in the refrigerator. PHYSICAL EXAMINATION: BP 153/89 Pulse (!) 48 Temp 36.8 ??C (98.3 ??F) Ht 190.5 cm (6' 3 ) Wt 119.3 kg (263 lb) BMI 32.87 kg/m?? GENERAL: He is a well-appearing white male, in no apparent distress. HEENT: His oropharynx is clear with no submandibular or supraclavicular lymphadenopathy. CARDIOVASCULAR: He has a normal S1, S2. Regular rate and rhythm. PULMONARY: Clear to auscultation. ABDOMEN: Soft, nontender, nondistended with good bowel sounds. EXTREMITIES: No edema. ASSESSMENT AND PLAN: Ranjit is a gabby 37-year-old male with a past medical history of ileocolonic Crohn's disease whopresents today for follow-up after restarting methotrexate. 1. Crohn's disease. Overall patient is doing fairly well since starting methotrexate. Unfortunatelyhas a difficult time tolerating higher dose of methotrexate and the injectable form is tolerated than oral. He had trouble with gout when given allopurinol but has known preferential metabolism of 6MMPN. We would like him to continue his drug regiment. If necessary, we can offer refills of Uceris follow him but are hopeful that the inflammation will improve and this will be unnecessary. He shouldhave a repeat colonoscopy in March. 2. Ileocolonic stricture. Patient has not had any further obstructions. As he is in a new job he does not believe he could consider surgery until at least February.. As he would like to push this off aslong as possible, we explained that the stricture can be redilated by colonoscopy if needed. 3. Healthcare maintenance. The patient has received Prevnar but has not had Pneumovax. We will offer that today. He should also get his flu shot from his as soon as possible as flu is already circulating. The patient was given ample opportunity to ask questions and have them answered. We would like him to follow up with Dr. Jones in approximately 6 S CONSULTANT documented in this encounter Plan of Treatment Upcoming Encounters Date Type Department Care Team (Late st Contact Info) Description 11/09/2024 Plan of Care Documentation [facility] - [address] [place] [address] documented as of this encounter Visit Diagnoses Diagnosis Crohn's disease of small and large intestines with complication (HCC)- Primary Crohn's disease of both small and large intestine without complication (CMS/HCC) (HCC) Stricture intestinal (CMS/HCC) (HCC) Unspecified intestinal obstruction High risk medications (not anticoagulants) long-term use Encounter for long-term (current) use of other medications Need for 23-polyvalent pneumococcal polysaccharide vaccine documented in this encounter Discontinued Medications Medication Sig Discontinue Reason Start Date End Da te methotrexate 2.5 mg tabletIndications:Crohn's disease of both small and large intestine without complication (CMS/HCC) (HCC) Take 10 tablets by mouth one time weekly. Safety labs due every 3 months, due next 09/2018 Reorder 06/26/2018 10/06/2018 folic acid (FOLVITE) 1 mg tabletIndications:Crohn's disease of both small and large intestine without complication (CMS/HCC) (HCC) Take 1 tablet (1 mg total) by mouth daily. Reorder 04/10/2018 10/06/2018 documented as of this encounter Historical Medications * This list may reflect changes made after this encounter. neomycin-polymyxi n-dexamethasone (MAXITROL) 3.5mg/mL-10,000 unit/mL-0.1 % ophthalmic suspension INSTILL 1 GTT TO OS BID 0 09/01/2018 08/07/2021 added in this encounter Orders Immunization/Injection Count Last Ordered Date First Ordered Date PNEUMOCOCCAL POLYSACCHARIDE VACCINE 23-VALENT =>2YO SQ IM 1 10/06/2018 documented in this encounter Care Teams Cutting Inspector Relationship Specialty Start Date End Date Kirstie Jarrell MD PCP - General 08/29/17 08/06/21 documented as of this encounter
--- OUTSIDE RECORDS SUMMARY | 2024-11-11 19:16 | XMS_ITS | Encounter Summary ---
Author Organization [facility] Address [address] [place] [address] Phone Care Team Providers Care Manager Health Name Role Phone Kirstie Jarrell MD Primary Care Provider + Encounter Details Date Type Department Care Team (Late st Contact Info) Description 11/30/2018 Documentation [facility] Gastroenterology 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 NCT PROFESSOR OF ENGLISH documented in this encounter Plan of Treatment Upcoming Encounters Date Type Department Care Team (Late st Contact Info) Description 11/09/2024 Plan of Care Documentation [address] [address] [address] [place] [address] documented as of this encounter Visit Diagnoses Not on filedocumented in this encounter Care Teams Manager Health Relationship Specialty Start Date End Date Kirstie Jarrell MD PCP - General 08/29/17 08/06/21 documented as of this encounter
--- OUTSIDE RECORDS SUMMARY | 2024-11-11 19:16 | XMS_ITS | Encounter Summary ---
Author Organization [facility] [employer] [facility] Address [address] [place] [address] Phone Care Team Providers Care Value Stream Manager Name Role Phone Kirstie Jarrell MD Primary Care Provider + Encounter Details Date Type Department Care Team (Late st Contact Info) Description 05/01/2018 Orders Only [facility] Gastroenterology [address] [facility] 8th [place] [address] [place] [address] Loan Harmon RN Social History Tobacco Use Types Packs/Day Years Used Date Smoking Tobacco: Former Smokeless Tobacco: Never Alcohol Use Standard Drinks/Week Comments Yes 0 (1 standard drink = 0.6 oz pur e alcohol) Sex and Gender Information Value Date Recorded Sex Assigned at Not on file Legal Sex Male 9:34 AM 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
--- OUTSIDE RECORDS SUMMARY | 2024-11-11 19:16 | XMS_ITS | Encounter Summary ---
Author Organization [facility] Address [address] [place] [address] Phone Care Team Providers Care Color Matcher Name Role Phone Kirstie Jarrell MD Primary Care Provider + Encounter Details Date Type Department Care Team (Late st Contact Info) Description 03/22/2018 Orders Only [facility] Infusion Therapy [address] [facility] [address] [place] [address] Heydi Hawley, SANDRA Social History Tobacco Use Types Packs/Day Years Used Date Smoking Tobacco: Former Sex and Gender Information Value Date Recorded Sex Assigned at Not on file Legal Sex Male 9:34 AM BOTTOM SPRAYER Gender Identity Not on file Sexual Orientation Not on file documented as of this encounter Plan of Treatment Upcoming Encounters Date Type Department Care Team (Late st Contact Info) Description 11/09/2024 Plan of Care Documentation [address] [address] [address] [place] [address] documented as of this encounter Visit Diagnoses Not on filedocumented in this encounter Care Teams Color Matcher Relationship Specialty Start Date End Date Kirstie Jarrell MD PCP - General 08/29/17 08/06/21 documented as of this encounter
--- OUTSIDE RECORDS SUMMARY | 2024-11-11 19:16 | XMS_ITS | Encounter Summary ---
Author Organization [facility] Address [address] [place] [address] Phone Care Team Providers Care Lozenge Maker Helper Name Role Phone Kirstie Jarrell MD Primary Care Provider + Encounter Details Date Type Department Care Team (Late st Contact Info) Description 10/19/2018 Orders Only [facility] Gastroenterology [address] 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
--- OUTSIDE RECORDS SUMMARY | 2024-11-11 19:17 | XMS_ITS | Encounter Summary ---
Author Organization [facility] Facility Care Team Providers Care Billboard Mechanic Name Role Phone Unavailable Primary Care Provider Unavailabl e Encounter Details Date Type Department Care Team (Late st Contact Info) Description 09/13/2014 10:06 AM SENIOR NET SOFTWARE DEVELOPER - 09/13/2014 11:59 PM SENIOR NET SOFTWARE DEVELOPER Hospital Encounter [facility] Paulina Tillman MD [address] [place] [address] Regional enteritis of large intestine (CMS/HCC) ([facility]); Encounter for long-term (current) use of other medications Social History Tobacco Use Types Packs/Day Years Used Date Smoking Tobacco: Never Assessed Sex and Gender Information Value Date Recorded Sex Assigned at Not on file Legal Sex Male 9:34 AM SENIOR NET SOFTWARE DEVELOPER Gender Identity Not on file Sexual Orientation Not on file documented as of this encounter Medications at Time of Discharge folic acid (FOLVITE) 1 mg tablet TAKE 1 TABLET BY MOUTH DAILY DIRECTED 08/27/2014 04/27/2018 documented as of this encounter Plan of Treatment Upcoming Encounters Date Type Department Care Team (Late st Contact Info) Description 11/09/2024 Plan of Care Documentation [address] [address] [address] [place] [address] documented as of this encounter Procedures Procedure Name Priority Date/Time Associated Diagnosis Comments PLASMA HEPATIC FUNCTION PANEL Routine 09/13/2014 9:20 AM SENIOR NET SOFTWARE DEVELOPER BLOOD CELL COUNT (CBC), MORPHOLOGIC EXAM Routine 09/13/2014 9:20 AM SENIOR NET SOFTWARE DEVELOPER SERUM 25-HYDROXYCHOLECALCI FEROL (VITAMIN D) Routine 09/13/2014 3:20 AM SENIOR NET SOFTWARE DEVELOPER DISCHARGE LABORATORY CUMULATIVE REPORT 09/13/2014 documented in this encounter Results * Blood cell count (CBC), morphologic exam (09/13/2014 9:20 AM SENIOR NET SOFTWARE DEVELOPER) WBC 6.1 4.5 - 11.0 K/cumm HISTORICAL RESULTS RBC 4.51 4.50 - 6.20 M/cumm HISTORICAL RESULTS Hgb 14.0 13.0 - 17.0 g/dl HISTORICAL RESULTS Hct 42.5 39.0 - 52.0 % HISTORICAL RESULTS MCV 94.2 80.0 - 100.0 fl HISTORICAL RESULTS MCH 31.0 27.0 - 33.0 pg HISTORICAL RESULTS MCHC 32.9 32.0 - 36.0 g/dl HISTORICAL RESULTS Rdw 12.5 11.5 - 14.5 % HISTORICAL RESULTS Platelets 234 140 - 400 K/cumm HISTORICAL RESULTS MPV 9.9 7.4 - 10.4 fl HISTORICAL RESULTS Neutrophils 61.6 42.0 - 75.0 % HISTORICAL RESULTS Lymphocytes 28.9 21.0 - 51.0 % HISTORICAL RESULTS Monos 7.5 2.0 - 9.0 % HISTORICAL RESULTS Eosinophils 1.8 0.0 - 10.0 % HISTORICAL RESULTS Basophils 0.2 0.0 - 1.0 % HISTORICAL RESULTS Neutrophils, abs 3.8 1.0 - 6.6 K/cumm HISTORICAL RESULTS Lymphocytes, abs 1.8 1.2 - 3.3 K/cumm HISTORICAL RESULTS Monocytes, absolute 0.5 0.2 - 1.2 K/cumm HISTORICAL RESULTS Eosinophils, abs 0.1 0.0 - 0.5 K/cumm HISTORICAL RESULTS Basophils, abs 0.0 0.0 - 0.2 K/cumm HISTORICAL RESULTS Blood specimen (specimen) 09/13/2014 9:20 AM SENIOR NET SOFTWARE DEVELOPER us Paulina Jones MD LAB BLOOD ORDERABLE S Final Result HISTORICAL RESULTS * (ABNORMAL) Plasma hepatic function panel (09/13/2014 9:20 AM SENIOR NET SOFTWARE DEVELOPER) Pathologist [facility] Protein, pl 7.2 6.4 - 8.2 g/dl HISTORICAL RESULTS Alb 3.7 3.4 - 5.0 g/dl HISTORICAL RESULTS Alk phos 66 50 - 136 Units/L HISTORICAL RESULTS Bilirubin 0.4 0.1 - 1.0 mg/dl HISTORICAL RESULTS Bilirubin, direct 0.1 0.0 - 0.3 mg/dl HISTORICAL RESULTS ALT 99(H) 12 - 78 Units/L HISTORICAL RESULTS Comment:New referance range implemented on 01/25/2013 AST 46(H) 15 - 37 Units/L HISTORICAL RESULTS Plasma 09/13/2014 9:20 AM SENIOR NET SOFTWARE DEVELOPER Paulina Jones MD LAB BLOOD ORDERABLE S Final Result Performing Organization Address [facility] de Phone Number HISTORICAL RESULTS * Serum 25-hydroxycholecalciferol (vitamin D) (09/13/2014 3:20 AM SENIOR NET SOFTWARE DEVELOPER) Pathologist [facility] 25-OH Vit D 44 30 - 100 ng/ml HISTORICAL RESULTS Serum 09/13/2014 3:20 AM SENIOR NET SOFTWARE DEVELOPER Narrative HISTORICAL RESULTS - 09/13/2014 1:52 PM SENIOR NET SOFTWARE DEVELOPER Test performed at [facility], [address] [facility],, [place], [place], [place], [address]. Paulina Jones MD LAB BLOOD ORDERABLE S Final Result HISTORICAL RESULTS * DISCHARGE LABORATORY CUMULATIVE REPORT (09/13/2014) Narrative 09/13/2014 Ordered by an unspecified provider. Historical Provider LAB BLOOD ORDERABLES Génesis l Result documented in this encounter Visit Diagnoses Diagnosis Regional enteritis of large intestine (CMS/HCC) (HCC) Regional enteritis of large intestine Encounter for long-term (current) use of other medications documented in this encounter
--- OUTSIDE RECORDS SUMMARY | 2024-11-11 19:17 | XMS_ITS | Encounter Summary ---
Author Organization [facility] Facility Care Team Providers Care Mortgage Loan Interviewer Name Role Phone Unavailable Primary Care Provider Unavailabl e Encounter Details Date Type Department Care Team (Late Contact Info) Description 03/05/2016 6:27 AM CDT - 03/05/2016 9:15 AM CDT Hospital Encounter [facility] Paulina Tillman MD [address] [facility] [address] [place] [address] Encounter for screening for malignant neoplasm of colon; Crohn's disease without complication (CMS/HCC); Other intestinal obstruction (CMS/HCC); Ulcer of intestine; Other meterman (current) drug therapy Social History Tobacco Use Types Packs/Day Years Used Date Smoking Tobacco: Never Assessed Sex and Gender Information Value Date Recorded Sex Assigned at Not on file Legal Sex Male 9:34 AM LATHER APPRENTICE Gender Identity Not on file Sexual Orientation Not on file documented as of this encounter Medications at Time of Discharge folic acid (FOLVITE) 1 mg tablet TAKE 1 TABLET BY MOUTH DAILY DIRECTED 08/27/2014 04/27/2018 methotrexate 2.5 mg tablet TAKE 10 TABLETS BY MOUTH ONE TIME WEEKLY (ALL AT ONE TIME) (LABS DUE WITH EACH ENTYVIO INFUSION EVERY 8 WEEKS due 04/28/18) 06/19/2015 06/26/2018 vedolizumab (ENTYVIO) 300 mg recon soln Infuse into a venous catheter. 07/15/2015 08/23/2018 documented as of this encounter Plan of Treatment Upcoming Encounters Date Type Department Care Team (Late st Contact Info) Description 11/09/2024 Plan of Care Documentation [address] [place] [address] documented as of this encounter Procedures Procedure Name Priority Date/Time Associated Diagnosis Comments COLONOSCOPY REPORT 03/05/2016 SURGICAL PATHOLOGY 03/05/2016 documented in this encounter Results * Surgical pathology (03/05/2016) Narrative 03/05/2016 Ordered by an unspecified provider. us Historical Provider LAB PATHOLOGY ORDERABLES Final Result * COLONOSCOPY REPORT (03/05/2016) Anatomical Region Laterality Modality Other Narrative 03/05/2016 Ordered by an unspecified provider. us Historical Provider GI PROCEDURE ORDERABLES F inal Result documented in this encounter Visit Diagnoses Diagnosis Encounter for screening for malignant neoplasm of colon Crohn's disease without complication (CMS/HCC) (HCC) Other intestinal obstruction Ulcer of intestine Other meterman (current) drug therapy documented in this encounter
--- OUTSIDE RECORDS SUMMARY | 2024-11-11 19:17 | XMS_ITS | Encounter Summary ---
Author Organization [facility] Facility Care Team Providers Care Substance Abuse Prevention Coordinator Name Role Phone Unavailable Primary Care Provider Unavailabl e Encounter Details Date Type Department Care Team (Late st Contact Info) Description 11/02/2013 1:58 PM CHEST PAINTING AND SEALING SUPERVISOR Hospital Encounter [facility] DAVID Jones, Paulina German MD [address] [facility] [address] [place] [address] Regional enteritis of large intestine (CMS/HCC) (HCC); Encounter for long-term (current) use of other medications; Encounter for therapeutic drug monitoring Social History Tobacco Use Types Packs/Day Years Used Date Smoking Tobacco: Never Assessed Sex and Gender Information Value Date Recorded Sex Assigned at Not on file Legal Sex Male 9:34 AM CHEST PAINTING AND SEALING SUPERVISOR Gender Identity Not on file Sexual Orientation Not on file documented as of this encounter Plan of Treatment Upcoming Encounters Date Type Department Care Team (Late st Contact Info) Description 11/09/2024 Plan of Care Documentation [address] [address] [address] [place] [address] documented as of this encounter Procedures Procedure Name Priority Date/Time Associated Diagnosis Comments PLASMA HEPATIC FUNCTION PANEL Routine 11/02/2013 1:40 PM CHEST PAINTING AND SEALING SUPERVISOR BLOOD CELL COUNT (CBC), MORPHOLOGIC EXAM Routine 11/02/2013 7:40 AM CHEST PAINTING AND SEALING SUPERVISOR DISCHARGE LABORATORY CUMULATIVE REPORT 11/02/2013 documented in this encounter Results * (ABNORMAL) Plasma hepatic function panel (11/02/2013 1:40 PM CHEST PAINTING AND SEALING SUPERVISOR) Pathologist [facility] Protein, pl 7.2 6.4 - 8.2 g/dl HISTORICAL RESULTS Alb 4.0 3.4 - 5.0 g/dl HISTORICAL RESULTS Alk phos 65 50 - 136 Units/L HISTORICAL RESULTS Bilirubin 0.8 0.1 - 1.0 mg/dl HISTORICAL RESULTS Bilirubin, direct 0.1 0.0 - 0.3 mg/dl HISTORICAL RESULTS ALT 79(H) 12 - 78 Units/L HISTORICAL RESULTS Comment:New referance range implemented on 01/25/2013 AST 35 15 - 37 Units/L HISTORICAL RESULTS Plasma 11/02/2013 1:40 PM CHEST PAINTING AND SEALING SUPERVISOR Paulina Jones MD LAB BLOOD ORDERABLE S Final Result HISTORICAL RESULTS * (ABNORMAL) Blood cell count (CBC), morphologic exam (11/02/2013 7:40 AM CHEST PAINTING AND SEALING SUPERVISOR) Pathologist [facility] WBC 5.5 4.5 - 11.0 K/cumm HISTORICAL RESULTS RBC 4.22(L) 4.50 - 6.20 M/cumm HISTORICAL RESULTS Hgb 13.2 13.0 - 17.0 g/dl HISTORICAL RESULTS Hct 38.9(L) 39.0 - 52.0 % HISTORICAL RESULTS MCV 92.2 80.0 - 100.0 fl HISTORICAL RESULTS MCH 31.3 27.0 - 33.0 pg HISTORICAL RESULTS MCHC 33.9 32.0 - 36.0 g/dl HISTORICAL RESULTS Rdw 13.4 11.5 - 14.5 % HISTORICAL RESULTS Platelets 266 140 - 400 K/cumm HISTORICAL RESULTS MPV 9.8 7.4 - 10.4 fl HISTORICAL RESULTS Neutrophils 54.8 42.0 - 75.0 % HISTORICAL RESULTS Lymphocytes 38.6 21.0 - 51.0 % HISTORICAL RESULTS Monos 4.4 2.0 - 9.0 % HISTORICAL RESULTS Eosinophils 1.8 0.0 - 10.0 % HISTORICAL RESULTS Basophils 0.4 0.0 - 1.0 % HISTORICAL RESULTS Neutrophils, abs 3.0 1.0 - 6.6 K/cumm HISTORICAL RESULTS Lymphocytes, abs 2.1 1.2 - 3.3 K/cumm HISTORICAL RESULTS Monocytes, absolute 0.2 0.2 - 1.2 K/cumm HISTORICAL RESULTS Eosinophils, abs 0.1 0.0 - 0.5 K/cumm HISTORICAL RESULTS Basophils, abs 0.0 0.0 - 0.2 K/cumm HISTORICAL RESULTS Blood specimen (specimen) 11/02/2013 7:40 AM CHEST PAINTING AND SEALING SUPERVISOR Narrative HISTORICAL RESULTS - 11/02/2013 9:26 AM CHEST PAINTING AND SEALING SUPERVISOR OFFICE DRAW us Paulina Jones MD LAB BLOOD ORDERABLE S Final Result HISTORICAL RESULTS * DISCHARGE LABORATORY CUMULATIVE REPORT (11/02/2013) Narrative 11/02/2013 Ordered by an unspecified provider. us Historical Provider LAB BLOOD ORDERABLES Génesis l Result documented in this encounter Visit Diagnoses Diagnosis Regional enteritis of large intestine (CMS/HCC) (HCC) Regional enteritis of large intestine Encounter for long-term (current) use of other medications Encounter for therapeutic drug monitoring documented in this encounter
--- OUTSIDE RECORDS SUMMARY | 2024-11-11 19:17 | XMS_ITS | Encounter Summary ---
Author Organization [facility] Facility Care Team Providers Care Cordwood Cutter Helper Name Role Phone Unavailable Primary Care Provider Unavailabl e Encounter Details Date Type Department Care Team (Late st Contact Info) Description 11/30/2013 2:06 PM RETAIL COSMETICS SALES COUNTER MANAGER Hospital Encounter [facility] DAVID Jones, Paulina German MD [address] [facility] [address] [place] [address] Regional enteritis of large intestine (CMS/HCC) (HCC); Encounter for long-term (current) use of other medications Social History Tobacco Use Types Packs/Day Years Used Date Smoking Tobacco: Never Assessed Sex and Gender Information Value Date Recorded Sex Assigned at Not on file Legal Sex Male 9:34 AM RETAIL COSMETICS SALES COUNTER MANAGER Gender Identity Not on file Sexual Orientation Not on file documented as of this encounter Plan of Treatment Upcoming Encounters Date Type Department Care Team (Late st Contact Info) Description 11/09/2024 Plan of Care Documentation [address] [address] [address] [place] [address] documented as of this encounter Procedures Procedure Name Priority Date/Time Associated Diagnosis Comments BLOOD CELL COUNT (CBC), MORPHOLOGIC EXAM Routine 11/30/2013 1:20 PM RETAIL COSMETICS SALES COUNTER MANAGER PLASMA HEPATIC FUNCTION PANEL Routine 11/30/2013 7:20 AM RETAIL COSMETICS SALES COUNTER MANAGER DISCHARGE LABORATORY CUMULATIVE REPORT 11/30/2013 documented in this encounter Results * (ABNORMAL) Blood cell count (CBC), morphologic exam (11/30/2013 1:20 PM RETAIL COSMETICS SALES COUNTER MANAGER) WBC 5.4 4.5 - 11.0 K/cumm HISTORICAL RESULTS RBC 4.46(L) 4.50 - 6.20 M/cumm HISTORICAL RESULTS Hgb 14.1 13.0 - 17.0 g/dl HISTORICAL RESULTS Hct 42.0 39.0 - 52.0 % HISTORICAL RESULTS MCV 94.2 80.0 - 100.0 fl HISTORICAL RESULTS MCH 31.6 27.0 - 33.0 pg HISTORICAL RESULTS MCHC 33.6 32.0 - 36.0 g/dl HISTORICAL RESULTS Rdw 15.5(H) 11.5 - 14.5 % HISTORICAL RESULTS Platelets 328 140 - 400 K/cumm HISTORICAL RESULTS MPV 10.0 7.4 - 10.4 fl HISTORICAL RESULTS Neutrophils 52.7 42.0 - 75.0 % HISTORICAL RESULTS Lymphocytes 39.0 21.0 - 51.0 % HISTORICAL RESULTS Monos 5.9 2.0 - 9.0 % HISTORICAL RESULTS Eosinophils 1.8 0.0 - 10.0 % HISTORICAL RESULTS Basophils 0.6 0.0 - 1.0 % HISTORICAL RESULTS Neutrophils, abs 2.9 1.0 - 6.6 K/cumm HISTORICAL RESULTS Lymphocytes, abs 2.1 1.2 - 3.3 K/cumm HISTORICAL RESULTS Monocytes, absolute 0.3 0.2 - 1.2 K/cumm HISTORICAL RESULTS Eosinophils, abs 0.1 0.0 - 0.5 K/cumm HISTORICAL RESULTS Basophils, abs 0.0 0.0 - 0.2 K/cumm HISTORICAL RESULTS Blood specimen (specimen) 11/30/2013 1:20 PM RETAIL COSMETICS SALES COUNTER MANAGER us Paulina Jones MD LAB BLOOD ORDERABLE S Final Result HISTORICAL RESULTS * (ABNORMAL) Plasma hepatic function panel (11/30/2013 7:20 AM RETAIL COSMETICS SALES COUNTER MANAGER) Pathologist [facility] Protein, pl 7.6 6.4 - 8.2 g/dl HISTORICAL RESULTS Alb 4.4 3.4 - 5.0 g/dl HISTORICAL RESULTS Alk phos 54 50 - 136 Units/L HISTORICAL RESULTS Bilirubin 1.0 0.1 - 1.0 mg/dl HISTORICAL RESULTS Bilirubin, direct 0.2 0.0 - 0.3 mg/dl HISTORICAL RESULTS ALT 138(H) 12 - 78 Units/L HISTORICAL RESULTS Comment:New referance range implemented on 01/25/2013 AST 60(H) 15 - 37 Units/L HISTORICAL RESULTS Plasma 11/30/2013 7:20 AM RETAIL COSMETICS SALES COUNTER MANAGER Narrative HISTORICAL RESULTS - 11/30/2013 10:25 AM RETAIL COSMETICS SALES COUNTER MANAGER OFFICE DRAW us Paulnia Jones MD LAB BLOOD ORDERABLE S Final Result HISTORICAL RESULTS * DISCHARGE LABORATORY CUMULATIVE REPORT (11/30/2013) Narrative 11/30/2013 Ordered by an unspecified provider. us Historical Provider LAB BLOOD ORDERABLES Génesis l Result documented in this encounter Visit Diagnoses Diagnosis Regional enteritis of large intestine (CMS/HCC) (HCC) Regional enteritis of large intestine Encounter for long-term (current) use of other medications documented in this encounter
--- OUTSIDE RECORDS SUMMARY | 2024-11-11 19:17 | XMS_ITS | Encounter Summary ---
Author Organization [facility] Facility Care Team Providers Care Filler Block Inserter Remover Name Role Phone Unavailable Primary Care Provider Unavailabl e Encounter Details Date Type Department Care Team (Late st Contact Info) Description 07/15/2014 2:43 PM CDT Hospital Encounter [facility] DAVID Jones, Paulina German MD [address] [facility] [address] [place] [address] Regional enteritis of large intestine (CMS/HCC) (HCC); Encounter for long-term (current) use of other medications Social History Tobacco Use Types Packs/Day Years Used Date Smoking Tobacco: Never Assessed Sex and Gender Information Value Date Recorded Sex Assigned at Not on file Legal Sex Male 9:34 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 Gender Identity Not on file Sexual Orientation Not on file documented as of this encounter Plan of Treatment Upcoming Encounters Date Type Department Care Team (Late st Contact Info) Description 11/09/2024 Plan of Care Documentation [address] [address] [address] [place] [address] documented as of this encounter Procedures Procedure Name Priority Date/Time Associated Diagnosis Comments PLASMA HEPATIC FUNCTION PANEL Routine 07/15/2014 3:24 PM CDT BLOOD CELL COUNT (CBC), MORPHOLOGIC EXAM Routine 07/15/2014 3:24 PM CDT DISCHARGE LABORATORY CUMULATIVE REPORT 07/15/2014 documented in this encounter Results * (ABNORMAL) Blood cell count (CBC), morphologic exam (07/15/2014 3:24 PM CDT) WBC 7.0 4.5 - 11.0 K/cumm HISTORICAL RESULTS RBC 4.50 4.50 - 6.20 M/cumm HISTORICAL RESULTS Hgb 14.5 13.0 - 17.0 g/dl HISTORICAL RESULTS Hct 42.5 39.0 - 52.0 % HISTORICAL RESULTS MCV 94.4 80.0 - 100.0 fl HISTORICAL RESULTS MCH 32.2 27.0 - 33.0 pg HISTORICAL RESULTS MCHC 34.1 32.0 - 36.0 g/dl HISTORICAL RESULTS Rdw 12.4 11.5 - 14.5 % HISTORICAL RESULTS Platelets 235 140 - 400 K/cumm HISTORICAL RESULTS MPV 10.4 7.4 - 10.4 fl HISTORICAL RESULTS Neutrophils 56.2 42.0 - 75.0 % HISTORICAL RESULTS Lymphocytes 31.6 21.0 - 51.0 % HISTORICAL RESULTS Monos 9.9(H) 2.0 - 9.0 % HISTORICAL RESULTS Eosinophils 1.9 0.0 - 10.0 % HISTORICAL RESULTS Basophils 0.4 0.0 - 1.0 % HISTORICAL RESULTS Neutrophils, abs 3.9 1.0 - 6.6 K/cumm HISTORICAL RESULTS Lymphocytes, abs 2.2 1.2 - 3.3 K/cumm HISTORICAL RESULTS Monocytes, absolute 0.7 0.2 - 1.2 K/cumm HISTORICAL RESULTS Eosinophils, abs 0.1 0.0 - 0.5 K/cumm HISTORICAL RESULTS Basophils, abs 0.0 0.0 - 0.2 K/cumm HISTORICAL RESULTS Blood specimen (specimen) 07/15/2014 3:24 PM CDT us Paulina Jones MD LAB BLOOD ORDERABLE S Final Result HISTORICAL RESULTS * (ABNORMAL) Plasma hepatic function panel (07/15/2014 3:24 PM CDT) Pathologist [facility] Protein, pl 7.4 6.4 - 8.2 g/dl HISTORICAL RESULTS Alb 4.1 3.4 - 5.0 g/dl HISTORICAL RESULTS Alk phos 70 50 - 136 Units/L HISTORICAL RESULTS Bilirubin 0.9 0.1 - 1.0 mg/dl HISTORICAL RESULTS Bilirubin, direct 0.1 0.0 - 0.3 mg/dl HISTORICAL RESULTS ALT 136(H) 12 - 78 Units/L HISTORICAL RESULTS Comment:New referance range implemented on 01/25/2013 AST 63(H) 15 - 37 Units/L HISTORICAL RESULTS Plasma 07/15/2014 3:24 PM CDT Paulina Jones MD LAB BLOOD ORDERABLE S Final Result HISTORICAL RESULTS * DISCHARGE LABORATORY CUMULATIVE REPORT (07/15/2014) Narrative 07/15/2014 Ordered by an unspecified provider. us Historical Provider LAB BLOOD ORDERABLES Génesis l Result documented in this encounter Visit Diagnoses Diagnosis Regional enteritis of large intestine (CMS/HCC) (HCC) Regional enteritis of large intestine Encounter for long-term (current) use of other medications documented in this encounter
--- OUTSIDE RECORDS SUMMARY | 2024-11-11 19:17 | XMS_ITS | Encounter Summary ---
Author Organization [facility] Healthcare Address [address] [place] [address] Care Team Providers Care Music Engraver Name Role Phone No, Physician Primary Care Provider [phone] Encounter Details Date Type Department Care Team (Latest Contact Info) Description 08/26/2017 8:31 AM CDT - 08/28/2017 1:47 PM CDT Hospital Encounter [facility] [address] [place] [address] Daniel Garber MD [address] [facility] [address] [place], [place] [id number] Kiana Sanchez Discharge Disposition: Discharge to home or self care Social History Tobacco Use Types Packs/Day Years Used Date Smoking Tobacco: Never Assessed Sex and Gender Information Value Date Recorded Sex Assigned at Not on file Legal 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[employer] Gender Identity Not on file Sexual Orientation Not on file documented as of this encounter Last Filed Vital Signs Vital Sign Reading Time Taken Comments Blood Pressure 119/63 08/28/2017 12:35 PM CDT Pulse 59 08/28/2017 12:35 PM CDT Temperature - - Respiratory Rate - - Oxygen Saturation 96% 08/28/2017 12: 35 PM CDT Inhaled Oxygen Concentration - - Weight 118.6 kg (261 lb 7.8 oz) 08/26/2017 8:50 AM CDT Height 190.5 cm (6' 3 ) 08/26/2017 8:50 AM CDT Body Mass Index 32.68 08/26/2017 8:50 AM CDT documented in this encounter Medications [...] 07/15/2015 08/23/2018 documented as of this encounter Discharge Disposition Disposition Code Departure Means Destination Discharge to home or self care documented in this encounter Plan of Treatment Upcoming Encounters Date Type Department Care Team (Late st Contact Info) Description 11/09/2024 Plan of Care Documentation [address] [address] [address] [place] [address] documented as of this encounter Procedures Procedure Name Priority Date/Time Associated Diagnosis Comments DISCHARGE LABORATORY CUMULATIVE REPORT 08/28/2017 12:00 AM CDT DIFFERENTIAL AUTO After X-Ray 08/27/2017 11: 05 PM CDT CBC WITH AUTO DIFFERENTIAL After X-Ray 08/27/2017 11:05 PM CDT BASIC METABOLIC PANEL After X-Ray 08/27/2017 11:05 PM CDT DIFFERENTIAL AUTO After X-Ray 08/26/2017 10: 49 PM CDT CBC WITH AUTO DIFFERENTIAL After X-Ray 08/26/2017 10:49 PM CDT ERYTHROCYTE SEDIMENTATION RATE After X-Ray 08/26/2017 10:49 PM CDT BASIC METABOLIC PANEL After X-Ray 08/26/2017 10:49 PM CDT XR CONSULT OF OUTSIDE FILMS (PEDS ONLY) Routine 08/26/2017 6:14 PM CDT ABDOMINAL RADIOGRAPHY, FRONTAL (AP) Routine 08/26/2017 3:26 PM CDT BLOOD CULTURE RTNm 08/26/2017 10:55 AM CDT DIFFERENTIAL AUTO STAT 08/26/2017 10: 36 AM CDT CBC WITH AUTO DIFFERENTIAL STAT 08/26/2017 10:36 AM CDT BLOOD CULTURE RTNm 08/26/2017 10:36 AM CDT APTT STAT 08/26/2017 10:36 AM CDT PROTIME-INR STAT 08/26/2017 10:36 AM CDT CRP (ACUTE PHASE) After X-Ray 08/26/2017 10: 36 AM CDT LIPASE After X-Ray 08/26/2017 10:36 AM CDT COMPREHENSIVE METABOLIC PANEL STAT 08/26/2017 10:36 AM CDT documented in this encounter Results * DISCHARGE LABORATORY CUMULATIVE REPORT (08/28/2017 12:00 AM CDT) Narrative 08/28/2017 12:00 AM CDT Ordered by an unspecified provider. us Historical Provider LAB BLOOD ORDERABLES Génesis l Result * Basic metabolic panel (08/27/2017 11:05 PM CDT) Sodium 139 135 - 145 mmol/L [facility] Potassium, pl 3.8 3.3 - 4.9 mmol/L [facility] Chloride 105 97 - 110 mmol/L [facility] CO2 23 22 - 32 mmol/L [facility] BUN 14 8 - 25 mg/dL [facility] Glucose 99 70 - 199 mg/dL [facility] Creatinine 1.00 0.80 - 1.30 mg/dL [facility] Calcium 9.1 8.5 - 10.3 mg/dL [facility] Anion gap 11 2 - 15 mmol/L [facility] Blood specimen (specimen) 08/27/2017 11:05 PM CDT 08/27/2017 11:58 PM CDT [facility] BLOOD ORDERABLES Final Result Performing Organization Address [facility] Co de Phone Number [facility] [place] [address] * Differential, auto (08/27/2017 11:05 PM CDT) Neutrophil pct 61.7 % [facility] Imm gran pct 0.4 % [facility] Lymphocyte pct 28.6 % [facility] Monocyte pct 7.1 % [facility] Eosinophil pct 1.7 % [facility] Basophil pct 0.5 % [facility] Neutrophil abs 5.05 1.70 - 6.50 K/cumm [facility] Imm gran abs 0.03 0.00 - 0.10 K/cumm [facility] Lymphocyte abs 2.34 0.80 - 3.30 K/cumm [facility] Monocyte abs 0.58 0.20 - 0.80 K/cumm [facility] Eosinophil abs 0.14 0.00 - 0.50 K/cumm [facility] Basophil abs 0.04 0.00 - 0.10 K/cumm [facility] Blood specimen (specimen) 08/27/2017 11:05 PM CDT 08/27/2017 11:59 PM CDT Kiana Montejo [facility] LAB BLOOD ORDERABLES Final Result Performing Organization Address City/[facility]/ZIP Co de Phone Number [facility] [place] [address] * CBC with auto differential (08/27/2017 11:05 PM CDT) WBC 8.18 3.80 - 9.90 K/cumm [facility] RBC 4.34 4.30 - 5.80 M/cumm [facility] Hgb 13.5 13.0 - 17.5 g/dL [facility] Hct 40.3 38.9 - 50.3 % [facility] MCV 92.9 81.3 - 96.4 fL [facility] MCH 31.1 27.1 - 33.3 pg [facility] MCHC 33.5 32.3 - 35.7 g/dL [facility] RDW CV 12.7 11.1 - 14.9 % [facility] RDW SD 43.0 35.7 - 48.1 fL [facility] Plt 223 150 - 400 K/cumm [facility] MPV 10.1 9.1 - 12.3 fL [facility] NRBC 0.0 0.0 - 0.2 % [facility] NRBC abs 0.00 0.00 - 0.01 K/cumm [facility] Blood specimen (specimen) 08/27/2017 11:05 PM CDT 08/27/2017 11:59 PM CDT us Kiana Sanchez LAB BLOOD ORDERABLES Final Result Performing Organization Address City/[facility]/ZIP Co de Phone Number [facility] [place] [address] * Erythrocyte sedimentation rate (08/26/2017 10:49 PM CDT) Pathologist [facility] Erythrocyte sedimentation rate 9 0 - 12 mm/H [facility] Blood specimen (specimen) 08/26/2017 10:49 PM CDT 08/26/2017 11:36 PM CDT us Justin Abbasi MD LAB BLOOD ORDERABL ES Final Result [facility] [place] [address] * Basic metabolic panel (08/26/2017 10:49 PM CDT) Pathologist [facility] Sodium 138 135 - 145 mmol/L [facility] Potassium, pl 4.6 3.3 - 4.9 mmol/L [facility] Chloride 106 97 - 110 mmol/L [facility] CO2 23 22 - 32 mmol/L [facility] BUN 11 8 - 25 mg/dL [facility] Glucose 121 70 - 199 mg/dL [facility] Creatinine 0.93 0.80 - 1.30 mg/dL [facility] Calcium 9.0 8.5 - 10.3 mg/dL [facility] Anion gap 9 2 - 15 mmol/L [facility] Blood specimen (specimen) 08/26/2017 10:49 PM CDT 08/26/2017 11:35 PM CDT Kiana Prado LAB BLOOD ORDERABLES Final Result Performing Organization Address [facility] Co de Phone Number [facility] [place] [address] * (ABNORMAL) Differential, auto (08/26/2017 10:49 PM CDT) Neutrophil pct 86.2 % [facility] Imm gran pct 0.4 % [facility] Lymphocyte pct 11.0 % [facility] Monocyte pct 2.3 % [facility] Eosinophil pct 0.0 % [facility] Basophil pct 0.1 % [facility] Neutrophil abs 7.24(H) 1.70 - 6.50 K/cumm [facility] Imm gran abs 0.03 0.00 - 0.10 K/cumm [facility] Lymphocyte abs 0.92 0.80 - 3.30 K/cumm [facility] Monocyte abs 0.19(L) 0.20 - 0.80 K/cumm [facility] Eosinophil abs 0.00 0.00 - 0.50 K/cumm [facility] Basophil abs 0.01 0.00 - 0.10 K/cumm [facility] Blood specimen (specimen) 08/26/2017 10:49 PM CDT 08/26/2017 11:36 PM CDT Kiana Prado LAB BLOOD ORDERABLES Final Result Performing Organization Address City/State/[facility] de Phone Number [facility] [place] [address] * CBC with auto differential (08/26/2017 10:49 PM CDT) [facility] WBC 8.39 3.80 - 9.90 K/cumm [facility] RBC 4.54 4.30 - 5.80 M/cumm [facility] Hgb 14.0 13.0 - 17.5 g/dL [facility] Hct 41.4 38.9 - 50.3 % [facility] MCV 91.2 81.3 - 96.4 fL [facility] MCH 30.8 27.1 - 33.3 pg [facility] MCHC 33.8 32.3 - 35.7 g/dL [facility] RDW CV 12.5 11.1 - 14.9 % [facility] RDW SD 41.0 35.7 - 48.1 fL [facility] Plt 243 150 - 400 K/cumm [facility] MPV 10.2 9.1 - 12.3 fL [facility] NRBC 0.0 0.0 - 0.2 % [facility] NRBC abs 0.00 0.00 - 0.01 K/cumm [facility] Blood specimen (specimen) 08/26/2017 10:49 PM CDT 08/26/2017 11:36 PM CDT Kiana Sanchez LAB BLOOD ORDERABLES Final Result Performing Organization Address [facility] Co de Phone Number [facility] [place] [address] * XR Interpretation Of Outside Films (08/26/2017 6:14 PM CDT) Anatomical Region Laterality Modality N/A Radiographic Alexandra ging 08/26/2017 6:14 PM CDT Narrative 08/26/2017 11:02 PM CDT NAVYA DUMAS M.D. VALENCIA MUKHERJEE M.D. FINAL REPORT The radiology attending physician has personally reviewed this study, and has reviewed and/or edited this written report and agrees with it. ACC# ??Date Time ??Exam [id number] Aug 26, 2017 13:14:00 [id number] [facility] Body CT Consult EXAMINATION: ??RADIOLOGY CONSULTATION ON OUTSIDE IMAGING STUDY STUDY INITIALLY PERFORMED: 08/26/2017 at an outside facility TYPE OF STUDY: Multiple computed tomographic images of the abdomen and pelvis with intravenous contrast are provided at the time of this interpretation. The outside final report was not available at the time of this second opinion interpretation. TYPE OF CONSULTATION: Consult on outside imaging study with images submitted through [facility] DATE OF CONSULTATION: 08/26/2017 2:17 PM HISTORY: 36-year-old male with acute onset nausea, vomiting, and abdominal pain concerning for Crohn's flare and small bowel obstruction. COMPARISON: MRI abdomen dated 04/13/2016, CT abdomen and pelvis dated 01/11/2013 FINDINGS: There is an 8 mm pulmonary nodule in the right middle lobe. Mild bibasilar atelectasis is noted. ?? There are multiple areas of focal fibrofatty stricturing in the distal small bowel and ileocecal region in a skip distrubution causing proximal dilation. Dilation and mild circumferential thickening of the terminal ileum is seen without adjacent inflammatory changes. ??Involvement of the gastric antrum is also possible given the appearance of the gastric antrum with proximal gastric dilation. ??There is a trace amount of free pelvic fluid. There is no free fluid or adenopathy. Colonic diverticulosis is present without evidence of diverticulitis. Thin linear soft tissue extending from the rectum at the 11:00 position to the anterior peritoneal skin likely reflects the sequelae of prior perianal abscess versus residual perianal cutaneous fistula. ?? The liver is mildly low in attenuation suggestive of hepatic steatosis. Gallbladder, pancreas, adrenal glands, and kidneys are unremarkable. Spleen measures 1.5 cm, which is again slightly enlarged. ??Abdominal aorta is normal caliber. A few small mesenteric, periportal, and retroperitoneal lymph nodes are seen which do not meet size criteria for pathologic enlargement. Mild degenerative changes are present in the visualized spine. Tiny sclerotic focus in the right femur is most compatible with a bone island. IMPRESSION: ??1. ??Skip distribution of fibrofatty stricturing involving the distal small bowel causing proximal small bowel obstruction. 2. ??Linear soft tissue at the perianal region likely reflecting the sequelae of prior perianal abscess. Perianal cutaneous fistula should be excluded clinically. 3. ??8 mm pulmonary nodule in the right middle lobe. Follow-up in 6-12 months is recommended. 4. ??Stable mild splenomegaly. The findings, conclusions and recommendations within this report do not replace the initial findings, conclusions ??and recommendations made at the facility where the study was performed based upon the imaging and clinical condition at that time. ??Comparison with the prior report and clinical history is necessary. ??The provided images may or may not represent the rosebud source data set and thus may contain changes that may lower the accuracy of this second-opinion interpretation. Electronically signed by: Navya Dumas M.D. Requested By: KIANA SANCHEZ ??Joseph ? Dictated By: ?? VALENCIA MUKHERJEE M.D. ??on Aug 26 2017 ??6:00P This document has been electronically signed by: NAVYA DUMAS M.D. on Aug 26 2017 ??6:00P [id number] LUCAS M.D. FINAL REPORT The radiology attending physician has personally reviewed this study, and has reviewed and/or edited this written report and agrees with it. Attending: ??JCARLOS, ??DANIEL Requesting: ??SIRI, ??KIANA Requesting Fax: ?? Attending Fax: ?? Attending ID: ??[id number] Requesting ID: ??[id number] Report To 1 ID: ??[id number] ? Report To 1 Name: ??, ?? Report To 1 FAX: ?? [facility] Order #: ?? Procedure Note Miscellaneous, Not In File - 08/26/2017 Joseph MENDEZ M.D. FINAL REPORT The radiology attending physician has personally reviewed this study, and has reviewed and/or edited this written report and agrees with it. ACC# Date Time Exam [id number] Aug 26, 2017 13:14:00 [id number] [facility] Body CT Consult EXAMINATION: RADIOLOGY CONSULTATION ON OUTSIDE IMAGING STUDY STUDY INITIALLY PERFORMED: 08/26/2017 at an outside facility TYPE OF STUDY: Multiple computed tomographic images of the abdomen and pelvis with intravenous contrast are provided at the time of this interpretation. The outside final report was not available at the time of this second opinion interpretation. TYPE OF CONSULTATION: Consult on outside imaging study with images submitted through [facility] DATE OF CONSULTATION: 08/26/2017 2:17 PM HISTORY: 36-year-old male with acute onset nausea, vomiting, and abdominal pain concerning for Crohn's flare and small bowel obstruction. COMPARISON: MRI abdomen dated 04/13/2016, CT abdomen and pelvis dated 01/11/2013 FINDINGS: There is an 8 mm pulmonary nodule in the right middle lobe. Mild bibasilar atelectasis is noted. There are multiple areas of focal fibrofatty stricturing in the distal small bowel and ileocecal region in a skip distrubution causing proximal dilation. Dilation and mild circumferential thickening of the terminal ileum is seen without adjacent inflammatory changes. Involvement of the gastric antrum is also possible given the appearance of the gastric antrum with proximal gastric dilation. There is a trace amount of free pelvic fluid. There is no free fluid or adenopathy. Colonic diverticulosis is present without evidence of diverticulitis. Thin linear soft tissue extending from the rectum at the 11:00 position to the anterior peritoneal skin likely reflects the sequelae of prior perianal abscess versus residual perianal cutaneous fistula. The liver is mildly low in attenuation suggestive of hepatic steatosis. Gallbladder, pancreas, adrenal glands, and kidneys are unremarkable. Spleen measures 1.5 cm, which is again slightly enlarged. Abdominal aorta is normal caliber. A few small mesenteric, periportal, and retroperitoneal lymph nodes are seen which do not meet size criteria for pathologic enlargement. Mild degenerative changes are present in the visualized spine. Tiny sclerotic focus in the right femur is most compatible with a bone island. IMPRESSION: 1. Skip distribution of fibrofatty stricturing involving the distal small bowel causing proximal small bowel obstruction. 2. Linear soft tissue at the perianal region likely reflecting the sequelae of prior perianal abscess. Perianal cutaneous fistula should be excluded clinically. 3. 8 mm pulmonary nodule in the right middle lobe. Follow-up in 6-12 months is recommended. 4. Stable mild splenomegaly. The findings, conclusions and recommendations within this report do not replace the initial findings, conclusions and recommendations made at the facility where the study was performed based upon the imaging and clinical condition at that time. Comparison with the prior report and clinical history is necessary. The provided images may or may not represent the rosebud source data set and thus may contain changes that may lower the accuracy of this second-opinion interpretation. Electronically signed by: Navya Dumas M.D. Requested By: KIANA SANCHEZ M.D. Dictated By: VALENCIA MUKHERJEE M.D. on Aug 26 2017 6:00P This document has been electronically signed by: NAVYA DUMAS M.D. on Aug 26 2017 6:00P [id number] LUCAS M.D. FINAL REPORT The radiology attending physician has personally reviewed this study, and has reviewed and/or edited this written report and agrees with it. Attending: DANIEL GARBER Requesting: KIANA SANCHEZ Requesting Fax: Attending Fax: Attending ID: [id number] Requesting ID: [id number] Report To 1 ID: [id number] Report To 1 Name: , Report To 1 FAX: [facility] Order #: Kiana Sanchez IMG XR PROCEDURES Final Res ult * ABDOMINAL RADIOGRAPHY, FRONTAL (AP) (08/26/2017 3:26 PM CDT) Anatomical Region Laterality Modality N/A Radiographic Alexandra ging 08/26/2017 3:26 PM CDT Narrative 08/26/2017 8:46 PM CDT YAMILETH BAUTISTA M.D. GINA REYEZ M.D. FINAL REPORT The radiology attending physician has personally reviewed this study, and has reviewed and/or edited this written report and agrees with it. ACC# ??Date Time ??Exam [id number] Aug 26, 2017 10:26:00 [id number] Abdomen single view AP EXAMINATION: ??Abdomen, one view. HISTORY: Abdominal pain, check tube placement COMPARISON: Correlation is made with CT dated 08/26/2017 at 4:32 AM IMPRESSION: ??A single view of the abdomen is submitted for evaluation. Lower abdomen soft [id number]. ??Nasogastric tube tip is in the fundus of the stomach with side port in the body. ??Contrast material is seen within the collecting systems bilaterally and within the bladder. ??Bowel gas pattern is normal. Electronically signed by: Yamileth Bautista M.D. Requested By: KIANA SANCHEZ M.D. Dictated By: ?? GINA REYEZ M.D. ??on Aug 26 2017 ??3:44P This document has been electronically signed by: YAMILETH BAUTISTA M.D. on Aug 26 2017 ??3:44P [id number] BAUTISTA M.D. FINAL REPORT The radiology attending physician has personally reviewed this study, and has reviewed and/or edited this written report and agrees with it. Attending: ??JCARLOS, ??DANIEL Requesting: ??SIRI, ??KIANA Requesting Fax: ?? Attending Fax: ?? Attending ID: ??[id number] Requesting ID: ??[id number] Report To 1 ID: ??[id number] ? Report To 1 Name: ??, ?? Report To 1 FAX: ?? [facility] Order #: ?? Procedure Note Miscellaneous, Not In File - 08/26/2017 YAMILETH BAUTISTA M.D. GINA REYEZ M.D. FINAL REPORT The radiology attending physician has personally reviewed this study, and has reviewed and/or edited this written report and agrees with it. ACC# Date Time Exam [id number] Aug 26, 2017 10:26:00 [id number] Abdomen single view AP EXAMINATION: Abdomen, one view. HISTORY: Abdominal pain, check tube placement COMPARISON: Correlation is made with CT dated 08/26/2017 at 4:32 AM IMPRESSION: A single view of the abdomen is submitted for evaluation. Lower abdomen soft [id number]. Nasogastric tube tip is in the fundus of the stomach with side port in the body. Contrast material is seen within the collecting systems bilaterally and within the bladder. Bowel gas pattern is normal. Electronically signed by: Yamileth Bautista M.D. Requested By: KIANA SANCHEZ M.D. Dictated By: GINA REYEZ M.D. on Aug 26 2017 3:44P This document has been electronically signed by: YAMILETH BAUTISTA M.D. on Aug 26 2017 3:44P [id number] BAUTISTA M.D. FINAL REPORT The radiology attending physician has personally reviewed this study, and has reviewed and/or edited this written report and agrees with it. Attending: DANIEL GARBER Requesting: KIANA SANCHEZ Requesting Fax: Attending Fax: Attending ID: [id number] Requesting ID: [id number] Report To 1 ID: [id number] Report To 1 Name: , Report To 1 FAX: [facility] Order #: Kiana Sanchez IMG XR PROCEDURES Final Res ult * Blood culture (08/26/2017 10:55 AM CDT) Report Final Report: No growth [facility] specimen (specimen) (Arm, right) 08/26/2017 10:55 AM CDT 08/26/2017 11:45 AM CDT Narrative [facility] - 08/27/2017 12:56 AM CDT Blood cultures are incubated for five days on a continuously monitored blood culture system. ??The first report of a negative culture is issued within 24 hours of receipt of the specimen in the laboratory. ??Positive culture results are reported as soon as they are detected. ??For blood cultures with gram-positive cocci, a rapid molecular test for organism identification may be performed using the [employer] Nanosphere Gram Positive Blood Culture Assay. ??The Nanosphere assay detects microbial DNA in positive blood culture broth via hybridization of target DNA to capture oligonucleotides on a microarray. ??This assay has been cleared by the [place] Food and Drug Administration and its performance characteristics have been verified by the [facility]. Current Interpretive Data was last revised on 2014. [facility]AL ORDERABLES Final Result Performing Organization Address [facility] Co de Phone Number [facility] [place] [address] * Blood culture (08/26/2017 10:36 AM CDT) Report Final Report: No growth [facility] Blood specimen (specimen) (Arm, left) 08/26/2017 10:36 AM CDT 08/26/2017 11:45 AM CDT Narrative [facility] - 08/27/2017 12:56 AM CDT Blood cultures are incubated for five days on a continuously monitored blood culture system. ??The first report of a negative culture is issued within 24 hours of receipt of the specimen in the laboratory. ??Positive culture results are reported as soon as they are detected. ??For blood cultures with gram-positive cocci, a rapid molecular test for organism identification may be performed using the [employer] Nanosphere Gram Positive Blood Culture Assay. ??The Nanosphere assay detects microbial DNA in positive blood culture broth via hybridization of target DNA to capture oligonucleotides on a microarray. ??This assay has been cleared by the [place] Food and Drug Administration and its performance characteristics have been verified by the [facility]. Current Interpretive Data was last revised on 2014. [facility] - GENERAL ORDERABLES Final Result Performing Organization Address [facility] de Phone Number [facility] [place] [address] * (ABNORMAL) CRP (acute phase) (08/26/2017 10:36 AM CDT) CRP 33.3(H) 0.0 - 9.9 mg/L [facility] Blood specimen (specimen) 08/26/2017 10:36 AM CDT 08/26/2017 11:28 AM CDT [facility] BLOOD ORDERABLES Final Result Performing Organization Address City/[facility]/ZIP Co de Phone Number [facility] [place] [address] * Lipase (08/26/2017 10:36 AM CDT) Pathologist [facility] Lipase 32 10 - 99 Units/L [facility] Blood specimen (specimen) 08/26/2017 10:36 AM CDT 08/26/2017 11:28 AM CDT Devon. [facility] LAB BLOOD ORDERABLES Final Result Performing Organization Address [facility] de Phone Number [facility] [place] [address] * (ABNORMAL) Comprehensive metabolic panel (08/26/2017 10:36 AM CDT) [facility] Sodium 140 135 - 145 mmol/L [facility] Potassium, pl 4.1 3.3 - 4.9 mmol/L [facility] CO2 25 22 - 32 mmol/L [facility] BUN 14 8 - 25 mg/dL [facility] Glucose 109 70 - 199 mg/dL [facility] Creatinine 0.97 0.80 - 1.30 mg/dL [facility] Calcium 9.2 8.5 - 10.3 mg/dL [facility] Chloride 105 97 - 110 mmol/L [facility] Albumin 4.4 3.5 - 5.0 g/dL [facility] AST 39 10 - 50 Units/L [facility] ALT 67(H) 7 - 55 Units/L [facility] Alk phos 63 40 - 130 Units/L [facility] Bilirubin, total 1.0 0.1 - 1.2 mg/dL [facility] Protein, pl 7.7 6.5 - 8.5 g/dL [facility] Anion gap 10 2 - 15 mmol/L [facility] Blood specimen (specimen) 08/26/2017 10:36 AM CDT 08/26/2017 11:28 AM CDT Kiana Prado LAB BLOOD ORDERABLES Final Result Performing Organization Address [facility] de Phone Number ALDO [facility] [place] [address] * (ABNORMAL) Differential, auto (08/26/2017 10:36 AM CDT) Neutrophil pct 83.7 % [facility] Imm gran pct 0.5 % [facility] Lymphocyte pct 9.9 % [facility] Monocyte pct 5.5 % [facility] Eosinophil pct 0.1 % [facility] Basophil pct 0.3 % [facility] Neutrophil abs 10.05(H) 1.70 - 6.50 K/cumm [facility] Imm gran abs 0.06 0.00 - 0.10 K/cumm [facility] Lymphocyte abs 1.19 0.80 - 3.30 K/cumm [facility] Monocyte abs 0.66 0.20 - 0.80 K/cumm [facility] Eosinophil abs 0.01 0.00 - 0.50 K/cumm [facility] Basophil abs 0.03 0.00 - 0.10 K/cumm [facility] Blood specimen (specimen) 08/26/2017 10:36 AM CDT 08/26/2017 11:27 AM CDT Kiana Sanchez LAB BLOOD ORDERABLES Final Result Performing Organization Address [facility] Co de Phone Number ALDO [facility] [place] [address] * (ABNORMAL) CBC with auto differential (08/26/2017 10:36 AM CDT) WBC 12.00(H) 3.80 - 9.90 K/cumm [facility] RBC 4.95 4.30 - 5.80 M/cumm [facility] Hgb 15.2 13.0 - 17.5 g/dL [facility] Hct 45.5 38.9 - 50.3 % [facility] MCV 91.9 81.3 - 96.4 fL [facility] MCH 30.7 27.1 - 33.3 pg [facility] MCHC 33.4 32.3 - 35.7 g/dL [facility] RDW CV 12.7 11.1 - 14.9 % [facility] RDW SD 42.2 35.7 - 48.1 fL [facility] Plt 255 150 - 400 K/cumm [facility] MPV 10.4 9.1 - 12.3 fL [facility] NRBC 0.0 0.0 - 0.2 % [facility] NRBC abs 0.00 0.00 - 0.01 K/cumm [facility] Blood specimen (specimen) 08/26/2017 10:36 AM CDT 08/26/2017 11:27 AM CDT Kiana Sanchez LAB BLOOD ORDERABLES Final Result Performing Organization Address City/State/[facility] Co de Phone Number [facility] [place] [address] * Protime-INR (08/26/2017 10:36 AM CDT) PT 11.9 9.2 - 14.0 sec [facility] INR 1.04 0.81 - 1.22 [facility] Comment: Interpretive Data Inpatient therapeutic ranges* Atrial fibrillation ?2.0-3.0 INR Venous thrombo-embolism ?2.0-3.0 INR Bioprosthetic heart valve ?* Mechanical heart valve, bileaflet or tilting disk,aortic position ? 2.0-3.0 INR All other,or bileaflet or tilting disk, in mitral position ? 2.5-3.5 INR *See the pharmacy resource directory (PHRED) for an updated copy of the Tool Book at [email or web address] Current Interpretive Data was last revised 2012. Blood specimen (specimen) 08/26/2017 10:36 AM CDT 08/26/2017 11:04 AM CDT Kiana RosaJessica [facility] LAB BLOOD ORDERABLES Final Result Performing Organization Address [facility] de Phone Number [facility] [place] [address] * aPTT (08/26/2017 10:36 AM CDT) aPTT 27.2 25.0 - 37.0 sec [facility] Comment: Interpretive Data Therapeutic heparin range:60.0 - 94.0 sec based on correlation with therapeutic heparin activity range of 0.3 -0.7 Units/mL. Current interpretive data was last revised on 2011. Blood specimen (specimen) 08/26/2017 10:36 AM CDT 08/26/2017 11:04 AM CDT Kiana RosaJessica [facility] LAB BLOOD ORDERABLES Final Result Performing Organization Address [facility] de Phone Number [facility] [place] [address] documented in this encounter Visit Diagnoses Not on filedocumented in this encounter Care Teams Music Engraver Relationship Specialty Start Date End Date No, Physician PCP - General 08/26/17 08/28/17 documented as of this encounter
--- OUTSIDE RECORDS SUMMARY | 2024-11-11 19:17 | XMS_ITS | Encounter Summary ---
Author Organization [facility] Facility Care Team Providers Care Metal Plater Name Role Phone Unavailable Primary Care Provider Unavailabl e Encounter Details Date Type Department Care Team ([facility] Contact Info) Description 04/13/2016 8:30 AM CDT - 04/13/2016 11:59 PM CDT Hospital Encounter [facility]INPaulina Ocampo MD [address] [facility] [address] [place] [address] Crohn's disease of both small and large intestine without complication (CMS/HCC); Other specified noninfective gastroenteritis and colitis; Splenomegaly, not elsewhere classified; Other director long term care (current) drug therapy Social History Tobacco Use Types Packs/Day Years Used Date Smoking Tobacco: Never Assessed Sex and Gender Information Value Date Recorded Sex Assigned at Not on file Legal Sex Male 9:34 AM IMMIGRATION SERVICES OFFICER Gender Identity Not on file Sexual [...] Upcoming Encounters Date Type Department Care Team ([facility] Contact Info) Description 11/09/2024 Plan of Care Documentation [address] [place] [address] documented as of this encounter Procedures Procedure Name Priority Date/Time Associated Diagnosis Comments MRI ABDOMEN W WO CONTRAST Routine 04/13/2016 11:02 AM CDT BLOOD POINT OF CARE PANEL Routine 04/13/2016 10:11 AM CDT DISCHARGE LABORATORY CUMULATIVE REPORT 04/13/2016 documented in this encounter Results * MRI Abdomen W WO Contrast (04/13/2016 11:02 AM CDT) Anatomical Region Laterality Modality Body N/A Magnetic Resonan ce 04/13/2016 11:0 2 AM CDT Narrative 04/13/2016 1:29 PM CDT EMILIA ESTRELLA M.D. BONNIE VINES M.D. FINAL REPORT The radiology attending physician has personally reviewed this study, and has reviewed and/or edited this written report and agrees with it. ACC# ??Date Time ??Exam [id number] Apr 13, 2016 11:02:00 [id number] MRI Abdomen wwo contrast ACC# ??Date Time ??Exam [id number] Apr 13, 2016 11:02:00 [id number] MRI Abdomen wwo contrast EXAMINATION: ?MRI OF THE ABDOMEN WITHOUT AND WITH CONTRAST HISTORY: ??32-year-old man with Crohn disease. TECHNIQUE: Magnetic resonance images of the abdomen were obtained prior to and following administration gadolinium. ??Oral Volumen and 1 mg of intravenous glucagon was administered prior to the examination. Protocol: MR enterography Estimated GFR: >60 ml/min/1.73 meters squared Creatinine: 1.2 mg/dL Contrast: Dotarem, 20 ml, single dose FINDINGS: There is chronic thickening of the distal 15 cm of the terminal ileum with associated fibrofatty change. ??There is mild hyperenhancement of a 7 cm segment of distal terminal ileum. Overall the region of active inflammation is smaller than on the prior study. The remainder of the bowel is normal in appearance. ??There is no evidence of abscess or bowel obstruction. There is no upstream small bowel dilatation. There are no focal hepatic lesions or biliary ductal dilatation. ??The gallbladder, pancreas, adrenal glands and kidneys are normal. The spleen is enlarged, measuring 16 cm craniocaudal, unchanged. ??The bladder and prostate are unremarkable. ??No abdominal or pelvic or lymphadenopathy is identified. ?? IMPRESSION: 1. ??Mild active inflammation involving a small portion of the distal terminal ileum superimposed on more chronic inflammatory changes involving a longer segment of the terminal ileum. ??There is no evidence of bowel obstruction or abscess. 2. Unchanged splenomegaly. ?? Requested By: Dictated By: ?? BONNIE VINES M.D. ??on Apr?2015 11:55A This document has been electronically signed by: EMILIA ESTRELLA M.D. on Apr 13 2016 ??1:29P [id number] Procedure Note Provider, MD Melissa - 03/10/2017 EMILIA ESTRELLA M.D. BONNIE VINES M.D. FINAL REPORT The radiology attending physician has personally reviewed this study, and has reviewed and/or edited this written report and agrees with it. ACC# Date Time Exam [id number] Apr 13, 2016 11:02:00 01005 MRI Abdomen wwo contrast ACC# Date Time Exam [id number] Apr 13, 2016 11:02:00 [id number] MRI Abdomen wwo contrast EXAMINATION: MRI OF THE ABDOMEN WITHOUT AND WITH CONTRAST HISTORY: 32-year-old man with Crohn disease. TECHNIQUE: Magnetic resonance images of the abdomen were obtained prior to and following administration gadolinium. Oral Volumen and 1 mg of intravenous glucagon was administered prior to the examination. Protocol: MR enterography Estimated GFR: >60 ml/min/1.73 meters squared Creatinine: 1.2 mg/dL Contrast: Dotarem, 20 ml, single dose FINDINGS: There is chronic thickening of the distal 15 cm of the terminal ileum with associated fibrofatty change. There is mild hyperenhancement of a 7 cm segment of distal terminal ileum. Overall the region of active inflammation is smaller than on the prior study. The remainder of the bowel is normal in appearance. There is no evidence of abscess or bowel obstruction. There is no upstream small bowel dilatation. There are no focal hepatic lesions or biliary ductal dilatation. The gallbladder, pancreas, adrenal glands and kidneys are normal. The spleen is enlarged, measuring 16 cm craniocaudal, unchanged. The bladder and prostate are unremarkable. No abdominal or pelvic or lymphadenopathy is identified. IMPRESSION: 1. Mild active inflammation involving a small portion of the distal terminal ileum superimposed on more chronic inflammatory changes involving a longer segment of the terminal ileum. There is no evidence of bowel obstruction or abscess. 2. Unchanged splenomegaly. Requested By: Dictated By: BONNIE VINES M.D. on Apr 13 2016 11:55A This document has been electronically signed by: EMILIA ESTRELLA M.D. on Apr 13 2016 1:29P [id number] Historical Provider IMG MRI PROCEDURES Final Result * Blood point of care panel (04/13/2016 10:11 AM CDT) Creatinine, bld 1.2 0.6 - 1.3 mg/dl HISTORICAL RESULTS Comment: Creatinine < 1.5 mg/dL and stable receive IV contrast. Creatnine 1.5 - 1.9 mg/dL and stable use Visipaque IV contrast. Blood specimen (specimen) 04/13/2016 10:11 AM CDT Result [facility] Paulina Jones MD LAB BLOOD ORDERABLE S Final Result HISTORICAL RESULTS * DISCHARGE LABORATORY CUMULATIVE REPORT (04/13/2016) Narrative 04/13/2016 Ordered by an unspecified provider. 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
--- OUTSIDE RECORDS SUMMARY | 2024-11-11 19:17 | XMS_ITS | Encounter Summary ---
Author Organization [facility] Facility Care Team Providers Care Felled Seam Operator Name Role Phone Unavailable Primary Care Provider Unavailabl e Encounter Details Date Type Department Care Team (Late st Contact Info) Description 10/12/2013 - 10/12/2013 11:59 PM FISHERIES BIOLOGIST Hospital Encounter [facility] Lorna Tillman MD [address] [facility] [address] [place] [address] Regional enteritis of large intestine (CMS/HCC) (HCC) Social History Tobacco Use Types Packs/Day Years Used Date Smoking Tobacco: Never Assessed Sex and Gender Information Value Date Recorded Sex Assigned at Not on file Legal Sex Male 9:34 AM 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 BIOLOGIST Gender Identity Not on file Sexual Orientation Not on file documented as of this encounter Plan of Treatment Upcoming Encounters Date Type Department Care Team (Late st Contact Info) Description 11/09/2024 Plan of Care Documentation [address] [address] [address] [place] [address] documented as of this encounter Procedures Procedure Name Priority Date/Time Associated Diagnosis Comments DISCHARGE LABORATORY CUMULATIVE REPORT Routine 10/12/2013 5:12 PM FISHERIES BIOLOGIST PLASMA HEPATIC FUNCTION PANEL Routine 10/12/2013 2:04 PM FISHERIES BIOLOGIST BLOOD CELL COUNT (CBC) Routine 10/12/2013 2:04 PM FISHERIES BIOLOGIST MRI ABDOMEN W WO CONTRAST Routine 10/12/2013 1:37 PM FISHERIES BIOLOGIST BLOOD CREATININE, POINT OF CARE Routine 10/12/2013 12:12 PM FISHERIES BIOLOGIST documented in this encounter Results * Discharge Laboratory Cumulative Report (10/12/2013 5:12 PM FISHERIES BIOLOGIST) 10/12/2013 5:12 PM FISHERIES BIOLOGIST Narrative HISTORICAL RESULTS - 10/12/2013 5:12 PM FISHERIES BIOLOGIST ? [facility] ? Department of Laboratories ?[facility] [address] ?Gastrointestinal Center ?CAM 8- C Patient Name: ? DANTE PERALTA Med Rec Number: ?? [id number] Date of : ?1980 Gender/Age: ? Male 32 years Doctor: ? Lorna Velez M.D. Report Date/Time: 10/12/2013 17:12 ?* Abnormal ??C Critical ??f Footnote ??^ Corrected ??L Low ??H High ?i Interp Data ??@ Reference Lab ?Chart Type: Cumulative ? CHEMISTRY ? Standard Blood Chemistry ?10/12/2013 ??10/12/2013 ?14:04:00 ?12:12:00 Test ?Units ?Reference Total Bilirubin ? 0.6 ? mg/dL ?0.3-1.1 Bilirubin, Direct ? 0.1 ? mg/dL ?0.0-0.3 Plasma Total Protein ??7.4 ? g/dL ? 6.5-8.5 Albumin ? 4.5 ? g/dL ? 3.6- 5.0 Alkaline Phosphatase ??50 ?Units/L ??38-126 ALT ? 49 ?Units/L ??7-53 AST ? 23 ?Units/L ??11- 47 Creat iPOC ?1.1 ? mg/dL ?0.7-1.3 ?HEMATOLOGY ?Standard Hematology ?10/12/2013 ?14:04:00 Test ?Units ?? Reference WBC ? 15.0 ??H ? K/cumm ??3.8-9.8 RBC ? 4.50 ?M/cumm ??4.50-5.70 Hgb ? 13.5 ??L ? g/dL ?13.8-17.2 Hct ? 40.8 ?% ? 40.7-50.[address] ? 297 ? K/cumm ??140-440 MCV ? 90.6 ?fL ?80.0-97.6 MCH ? 30.0 ?pg ?26.7-33.7 MCHC ?33.1 ?g/dL ?32.7-35.5 RDW ? 12.7 ?% ? 11.8-14.6 MPV ? 7.5 ? fL ?6.8-10.4 Neut Pct Auto ?? 72.0 ?% ? 38.7-74.5 Lymph Pct Auto ??20.3 ?% ? 20.0-54.3 Eagle Pct Auto ?? 6.3 ? % ? 4.3-13.5 Eos Pct Auto ?1.0 ? % ? 0.0-6.0 Baso Pct Auto ?? 0.4 ? % ? 0.0-3.0 Neut Abs Auto ?? 10.8 ??H ? K/cumm ??1.8-6.6 Lymph Abs Auto ??3.0 ? K/cumm ??1.2-3.3 Eagle Abs Auto ?? 0.9 ? K/cumm ??0.2-1.2 Eos Abs Auto ?0.2 ? K/cumm ??0.0-0.5 ?HEMATOLOGY ?Standard Hematology ?10/12/2013 ?14:04:00 Test ?Units ?? Reference Baso Abs Auto ?? 0.1 ? K/cumm ??0.0-0.2 us Historical Provider MD LAB BLOOD ORDERABLES Génesis l Result HISTORICAL RESULTS * Plasma hepatic function panel (10/12/2013 2:04 PM FISHERIES BIOLOGIST) Pathologist [facility] Protein, pl 7.4 6.5 - 8.5 g/dl HISTORICAL RESULTS Alb 4.5 3.6 - 5.0 g/dl HISTORICAL RESULTS Bilirubin 0.6 0.3 - 1.1 mg/dl HISTORICAL RESULTS Bilirubin, direct 0.1 0.0 - 0.3 mg/dl HISTORICAL RESULTS Alk phos 50 38 - 126 Units/L HISTORICAL RESULTS AST 23 11 - 47 Units/L HISTORICAL RESULTS ALT 49 7 - 53 Units/L HISTORICAL RESULTS Plasma 10/12/2013 2:04 PM FISHERIES BIOLOGIST Lorna Velez MD LAB BLOOD ORDERABLE S Final Result Performing Organization Address [facility] de Phone Number HISTORICAL RESULTS * (ABNORMAL) Blood cell count (CBC) (10/12/2013 2:04 PM FISHERIES BIOLOGIST) Pathologist [facility] WBC 15.0(H) 3.8 - 9.8 K/cumm HISTORICAL RESULTS RBC 4.50 4.50 - 5.70 M/cumm HISTORICAL RESULTS Hgb 13.5(L) 13.8 - 17.2 g/dl HISTORICAL RESULTS Hct 40.8 40.7 - 50.3 % HISTORICAL RESULTS MCV 90.6 80.0 - 97.6 fl HISTORICAL RESULTS MCH 30.0 26.7 - 33.7 pg HISTORICAL RESULTS MCHC 33.1 32.7 - 35.5 g/dl HISTORICAL RESULTS Rdw 12.7 11.8 - 14.6 % HISTORICAL RESULTS Platelets 297 140 - 440 K/cumm HISTORICAL RESULTS MPV 7.5 6.8 - 10.4 fl HISTORICAL RESULTS Neutrophils 72.0 38.7 - 74.5 % HISTORICAL RESULTS Lymphocytes 20.3 20.0 - 54.3 % HISTORICAL RESULTS Monos 6.3 4.3 - 13.5 % HISTORICAL RESULTS Eosinophils 1.0 0.0 - 6.0 % HISTORICAL RESULTS Basophils 0.4 0.0 - 3.0 % HISTORICAL RESULTS Neutrophils, abs 10.8(H) 1.8 - 6.6 K/cumm HISTORICAL RESULTS Lymphocytes, abs 3.0 1.2 - 3.3 K/cumm HISTORICAL RESULTS Monocytes, absolute 0.9 0.2 - 1.2 K/cumm HISTORICAL RESULTS Eosinophils, abs 0.2 0.0 - 0.5 K/cumm HISTORICAL RESULTS Basophils, abs 0.1 0.0 - 0.2 K/cumm HISTORICAL RESULTS Blood specimen (specimen) 10/12/2013 2:04 PM FISHERIES BIOLOGIST Lorna Velez MD LAB BLOOD ORDERABLE S Final Result HISTORICAL RESULTS * MRI Abdomen W WO Contrast (10/12/2013 1:37 PM FISHERIES BIOLOGIST) Anatomical Region Laterality Modality Body N/A Magnetic Resonan ce 10/12/2013 1:37 PM FISHERIES BIOLOGIST Narrative 10/12/2013 4:24 PM FISHERIES BIOLOGIST Joseph CHRISTIANSON M.D. FINAL REPORT The radiology attending physician has personally reviewed this study, and has reviewed and/or edited this written report and agrees with it. ACC# ??Date Time ??Exam [id number] Oct 12, 2013 13:37:00 [id number] MRI Abdomen wwo contrast EXAMINATION: ?MRI OF THE ABDOMEN WITHOUT AND WITH CONTRAST HISTORY: ??32-year-old man with Crohn's disease, with perianal disease status post fistulotomy and abscess drainage and January 2013, drainage of a right ischiorectal abscess in March 2013, followed by additional fistulotomy and abscess drainage in August 2013. TECHNIQUE: Magnetic resonance images of the abdomen were obtained prior to and following administration gadolinium. ??Oral Volumen and 1 mg of intravenous glucagon was administered prior to the examination. Protocol: MR enterography Estimated GFR: > 60 ml/min/1.73 meters squared Creatinine: 1.1 mg/dL Contrast: OptiMARK, 20 ml, single dose FINDINGS: Comparison is made to a CT of the abdomen and pelvis dated 01/11/2013. There is mild wall thickening and mucosal hyperenhancement within a long segment (greater than 20 cm) of distal ileum, including the terminal ileum. Within the distal ileum, there are areas of mild luminal narrowing. Areas of diffusion restriction are seen within the involved bowel segments. There is mild venous engorgement within the small bowel mesentery in the right lower quadrant. Additionally, multiple prominent subcentimeter lymph nodes are noted within the right lower quadrant, most likely reactive. There is no fistulous communication or fluid collection. The remainder of the visualized bowel is normal in caliber, without evidence of obstruction or abnormal wall thickening. There are no suspicious hepatic parenchymal lesions. There is no intra or extrahepatic biliary ductal dilatation. The portal and hepatic veins are patent. There is a small amount of intermediate signal intensity sludge within the gallbladder, as well as a T2 hypointense 9 mm gallstone. The spleen, adrenal glands, and kidneys are normal. Pancreas divisum is noted. There is no free fluid within the abdomen or pelvis. Visualized portions of the urinary bladder are normal. No suspicious osseous lesions are seen. ?? IMPRESSION: Long segment, mild wall thickening and hyperenhancement in the distal ileum, with associated mesenteric vascular engorgement and prominent lymph nodes, compatible with active inflammation. No stricture, fistula, or abscess. ?? Requested By: LORNA VELEZ M.D. Dictated By: ?? EDITH CHERRY M.D. ??on Oct ??2012 ??3:56P This document has been electronically signed by: PASCALE POLLARD M.D. on Oct 12 2013 ??4:24P Procedure Note Provider, MD Melissa - 03/10/2017 Joseph CHRISTIANSON M.D. FINAL REPORT The radiology attending physician has personally reviewed this study, and has reviewed and/or edited this written report and agrees with it. ACC# Date Time Exam [id number] Oct 12, 2013 13:37:00 [id number] MRI Abdomen wwo contrast EXAMINATION: MRI OF THE ABDOMEN WITHOUT AND WITH CONTRAST HISTORY: 32-year-old man with Crohn's disease, with perianal disease status post fistulotomy and abscess drainage and January 2013, drainage of a right ischiorectal abscess in March 2013, followed by additional fistulotomy and abscess drainage in August 2013. TECHNIQUE: Magnetic resonance images of the abdomen were obtained prior to and following administration gadolinium. Oral Volumen and 1 mg of intravenous glucagon was administered prior to the examination. Protocol: MR enterography Estimated GFR: > 60 ml/min/1.73 meters squared Creatinine: 1.1 mg/dL Contrast: OptiMARK, 20 ml, single dose FINDINGS: Comparison is made to a CT of the abdomen and pelvis dated 01/11/2013. There is mild wall thickening and mucosal hyperenhancement within a long segment (greater than 20 cm) of distal ileum, including the terminal ileum. Within the distal ileum, there are areas of mild luminal narrowing. Areas of diffusion restriction are seen within the involved bowel segments. There is mild venous engorgement within the small bowel mesentery in the right lower quadrant. Additionally, multiple prominent subcentimeter lymph nodes are noted within the right lower quadrant, most likely reactive. There is no fistulous communication or fluid collection. The remainder of the visualized bowel is normal in caliber, without evidence of obstruction or abnormal wall thickening. There are no suspicious hepatic parenchymal lesions. There is no intra or extrahepatic biliary ductal dilatation. The portal and hepatic veins are patent. There is a small amount of intermediate signal intensity sludge within the gallbladder, as well as a T2 hypointense 9 mm gallstone. The spleen, adrenal glands, and kidneys are normal. Pancreas divisum is noted. There is no free fluid within the abdomen or pelvis. Visualized portions of the urinary bladder are normal. No suspicious osseous lesions are seen. IMPRESSION: Long segment, mild wall thickening and hyperenhancement in the distal ileum, with associated mesenteric vascular engorgement and prominent lymph nodes, compatible with active inflammation. No stricture, fistula, or abscess. Requested By: LORNA VELEZ M.D. Dictated By: EDITH CHERRY M.D. on Oct 12 2013 3:56P This document has been electronically signed by: PASCALE POLLARD M.D. on Oct 12 2013 4:24P Historical Provider MD LUONG MRI PROCEDURES Final Result * Blood creatinine, point of care (10/12/2013 12:12 PM FISHERIES BIOLOGIST) Creatinine, POC, bld 1.1 0.7 - 1.3 mg/dl HISTORICAL RESULTS Blood specimen (specimen) 10/12/2013 12:12 PM FISHERIES BIOLOGIST Lorna Velez MD LAB BLOOD ORDERABLE S Final Result HISTORICAL RESULTS documented in this encounter Visit Diagnoses Diagnosis Regional enteritis of large intestine (CMS/HCC) (HCC) Regional enteritis of large intestine documented in this encounter
--- OUTSIDE RECORDS SUMMARY | 2024-11-11 19:17 | XMS_ITS | Encounter Summary ---
Author Organization [facility] Facility Care Team Providers Care Fish House Worker Name Role Phone Unavailable Primary Care Provider Unavailabl e Encounter Details Date Type Department Care Team (Latest Contact Info) Description 01/12/2013 8:13 AM ENGRAVER PANTOGRAPH - 01/12/2013 1:48 PM ENGRAVER PANTOGRAPH [facility] Crissy Hernandez MD [address] [place] [address] Abscess of anal and rectal regions; Irritable colon; Gout Social History Tobacco Use Types Packs/Day Years Used Date Smoking Tobacco: Never Assessed Sex and Gender Information Value Date Recorded Sex Assigned at Not on file Legal Sex Male 9:34 AM ENGRAVER PANTOGRAPH Gender Identity Not on file Sexual Orientation Not on file documented as of this encounter Miscellaneous Notes * Op Note - Provider, MD Melissa - 01/12/2013 12:00 AM CST Patient: DANTE PERALTA. Account: [id number] Room No: : 1980 Proc. Date: 01/12/2013 Surgeon: CRISSY JOLLY MD Admit Date: 01/12/2013 Disch. Date: 01/12/2013 Patient Type: S PREOPERATIVE DIAGNOSIS: Perianal abscess. POSTOPERATIVE DIAGNOSIS: Perianal abscess. NAME OF PROCEDURE: Examination under anesthesia, incision and drainage of perianal abscess. SURGEON: Crissy Jolly MD TURBINE ENGINEER: Janis Saleem MD ANESTHESIA: MAC. COMPLICATIONS: None. OPERATIVE NOTE FINDINGS: The patient had a large right anterior perianal abscess noted on CT scan. He had internal opening with purulent material coming from it. The tract extending from the internal opening appeared to be an intersphincteric tract, however the abscess cavity was deeper and therefore a seton was placed after doing a superficial fistulotomy. No other abnormalities noted. Of note; he had a history of Crohn's disease and there was some perianal excoriation, although it is difficult to tell whether this was related to the current symptoms or related to the Crohn's. There were no other abscess or fistulae identified. He did not receive antibiotics and Thromboguards were not placed due to the nature of the procedure. DESCRIPTION OF OPERATIVE PROCEDURE: The patient was brought to the operating room. IV sedation was given. He was placed in the prone-jackknife position. Buttocks were taped apart. Perianal area was prepped and sterilely draped. Marcaine 0.25 percent with epinephrine, infiltrated into the subcutaneous tissues and the intersphincteric groove. Medium anoscope was introduced into the anal canal with the findings as stated above. There were no abnormalities identified. Purulent material was coming from the internal opening. A small crypt hook was placed into the internal opening and a superficial intersphincteric tract was identified. This was cauterized, opened, and this led to a deeper cavity which went under more tissue in the buttock. Therefore, a seton was placed with a counter incision in the right anterior perianal tissues and a vessel loop was passed and tied in place loosely. The wound irrigated with saline, hemostasis was good. He tolerated the procedure well and was brought to the recovery room in stable condition. COUNTS: Sponge, needle and instrument count were correct. PRESENCE STATEMENT: I was the surgeon present the entire case. SPECIMEN: None. FLUIDS: See anesthesia note. ESTIMATED BLOOD LOSS: 10 mL.MD PENG Reagan/reji TD: 01/12/2013 13:57 CC: Per-Se Authenticated by Crissy Jolly MD On 01/17/2013 04:38:39 PM documented in this encounter Plan of Treatment Upcoming Encounters Date Type Department Care Team (Late st Contact Info) Description 11/09/2024 Plan of Care Documentation [address] [place] [address] documented as of this encounter Visit Diagnoses Diagnosis Abscess of anal and rectal regions Irritable colon Gout Gout, unspecified documented in this encounter
--- OUTSIDE RECORDS SUMMARY | 2024-11-11 19:17 | XMS_ITS | Encounter Summary ---
Author Organization [facility] Facility Care Team Providers Care Delivery Truck Driver Heavy Name Role Phone Unavailable Primary Care Provider Unavailabl e Encounter Details Date Type Department Care Team (Late st Contact Info) Description 07/10/2015 8:47 AM CDT - 07/10/2015 4:00 PM CDT Hospital Encounter [facility] Leo Bro MD [address] [facility] [address] [place] [address] Regional enteritis (CMS/HCC); Diarrhea Social History Tobacco Use Types Packs/Day Years Used Date Smoking Tobacco: Never Assessed Sex and Gender Information Value Date Recorded Sex Assigned at Not on file 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 Gender Identity Not on file Sexual Orientation [...] EVERY 8 WEEKS due 04/28/18) 06/19/2015 06/26/2018 documented as of this encounter Plan of Treatment Upcoming Encounters Date Type Department Care Team (Late st Contact Info) Description 11/09/2024 Plan of Care Documentation [address] [address] [address] [place] [address] documented as of this encounter Procedures Procedure Name Priority Date/Time Associated Diagnosis Comments CLOSTRIDIUM DIFFICILE TOXIN, CDR Routine 07/10/2015 4:30 PM CDT COLONOSCOPY REPORT 07/10/2015 ALL MICROBIOLOGY REPORT SECTION Routine 07/10/2015 12:00 AM CDT DISCHARGE LABORATORY CUMULATIVE REPORT 07/10/2015 SURGICAL PATHOLOGY 07/10/2015 documented in this encounter Results * Clostridium difficile toxin (07/10/2015 4:30 PM CDT) Stool (Unknown) 07/10/2015 4 :30 PM CDT 07/10/2015 7:26 PM CDT Narrative HISTORICAL RESULTS - 07/11/2015 5:00 AM CDT Negative for: Clostridium difficile toxin. [facility] Provider MD LAB MICROBIOLOGY - GENERA L ORDERABLES Final Result HISTORICAL RESULTS * Surgical pathology (07/10/2015) Narrative 07/10/2015 Ordered by an unspecified provider. [facility] Provider MD LAB PATHOLOGY ORDERABLES Final Result * DISCHARGE LABORATORY CUMULATIVE REPORT (07/10/2015) Narrative 07/10/2015 Ordered by an unspecified provider. [facility] Provider MD LAB BLOOD ORDERABLES Génesis l Result * All Microbiology Report Section (07/10/2015 12:00 AM CDT) 07/10/2015 Narrative HISTORICAL RESULTS - 07/11/2015 6:26 AM CDT ? [facility] ?[facility] [place] [address] [address] ? Patient Name: ??RANJIT PERALTA ? Med Rec Number: [id number] ? Fin Number: ?[id number] ? Date: ?1980 ? Sex/Age: ? Male 34 years ? Admit Date: ?07/10/2015 ? Discharge Date: 07/10/2015 ? Doctor: ?Leo Dumas ? Facility: ?[facility] ([facility]) ? Location: ?[facility] ?* Abnormal ??A Alert ??f Footnote ??^ Corrected ??L Low ??H High ?i Interp Data ??@ Ref Lab ? Chart Type:Cumulative ?* * * * MICROBIOLOGY - GASTROINTESTINAL * * * * ?PROCEDURE: Clostridium difficile Toxin ? SOURCE: Stool ? COLLECTED: 07/10/15 ??1630 ?BODY SITE: ? STARTED: 07/10/15 ??1927 ? FREE TEXT SOURCE: ? FINAL REPORT ? REPORTED: 07/11/15 0500 ? Negative for: Clostridium difficile toxin. us Historical Provider LAB MICROBIOLOGY - GENERA L ORDERABLES Final Result HISTORICAL RESULTS * COLONOSCOPY REPORT (07/10/2015) Anatomical Region Laterality Modality Other Narrative 07/10/2015 Ordered by an unspecified provider. us Historical Provider GI PROCEDURE ORDERABLES F inal Result documented in this encounter Visit Diagnoses Diagnosis Regional enteritis (CMS/HCC) (HCC) Regional enteritis of unspecified site Diarrhea documented in this encounter
--- OUTSIDE RECORDS SUMMARY | 2024-11-11 19:17 | XMS_ITS | Encounter Summary ---
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
--- OUTSIDE RECORDS SUMMARY | 2024-11-11 19:17 | XMS_ITS | Encounter Summary ---
Author Organization [facility] Facility Care Team Providers Care Industrial Conveyor Belt Repairer Name Role Phone Unavailable Primary Care Provider Unavailabl e Encounter Details Date Type Department Care Team (Late st Contact Info) Description 05/20/2014 1:55 PM CDT Hospital Encounter [facility] DAVID Jones, Paulina German MD [address] [facility] [address] [place] [address] Regional enteritis of large intestine (CMS/HCC) (HCC); Encounter for long-term (current) use of other medications Social History Tobacco Use Types Packs/Day Years Used Date Smoking Tobacco: Never Assessed Sex and Gender Information Value Date Recorded Sex Assigned at Not on file 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 Gender Identity Not on file Sexual Orientation Not on file documented as of this encounter Plan of Treatment Upcoming Encounters Date Type Department Care Team (Late st Contact Info) Description 11/09/2024 Plan of Care Documentation [address] [address] [address] [place] [address] documented as of this encounter Procedures Procedure Name Priority Date/Time Associated Diagnosis Comments PLASMA HEPATIC FUNCTION PANEL Routine 05/20/2014 2:05 PM CDT BLOOD CELL COUNT (CBC), MORPHOLOGIC EXAM Routine 05/20/2014 2:05 PM CDT DISCHARGE LABORATORY CUMULATIVE REPORT 05/20/2014 documented in this encounter Results * (ABNORMAL) Blood cell count (CBC), morphologic exam (05/20/2014 2:05 PM CDT) WBC 5.5 4.5 - 11.0 K/cumm HISTORICAL RESULTS RBC 4.28(L) 4.50 - 6.20 M/cumm HISTORICAL RESULTS Hgb 11.3(L) 13.0 - 17.0 g/dl HISTORICAL RESULTS Hct 40.6 39.0 - 52.0 % HISTORICAL RESULTS MCV 94.9 80.0 - 100.0 fl HISTORICAL RESULTS MCH 26.4(L) 27.0 - 33.0 pg HISTORICAL RESULTS MCHC 27.8(L) 32.0 - 36.0 g/dl HISTORICAL RESULTS Rdw 12.2 11.5 - 14.5 % HISTORICAL RESULTS Platelets 216 140 - 400 K/cumm HISTORICAL RESULTS MPV 10.1 7.4 - 10.4 fl HISTORICAL RESULTS Neutrophils 53.0 42.0 - 75.0 % HISTORICAL RESULTS Lymphocytes 33.9 21.0 - 51.0 % HISTORICAL RESULTS Monos 10.9(H) 2.0 - 9.0 % HISTORICAL RESULTS Eosinophils 1.8 0.0 - 10.0 % HISTORICAL RESULTS Basophils 0.4 0.0 - 1.0 % HISTORICAL RESULTS Neutrophils, abs 2.9 1.0 - 6.6 K/cumm HISTORICAL RESULTS Lymphocytes, abs 1.9 1.2 - 3.3 K/cumm HISTORICAL RESULTS Monocytes, absolute 0.6 0.2 - 1.2 K/cumm HISTORICAL RESULTS Eosinophils, abs 0.1 0.0 - 0.5 K/cumm HISTORICAL RESULTS Basophils, abs 0.0 0.0 - 0.2 K/cumm HISTORICAL RESULTS Blood specimen (specimen) 05/20/2014 2:05 PM CDT us Paulina Jones MD LAB BLOOD ORDERABLE S Final Result HISTORICAL RESULTS * (ABNORMAL) Plasma hepatic function panel (05/20/2014 2:05 PM CDT) Protein, pl 7.2 6.4 - 8.2 g/dl HISTORICAL RESULTS Alb 4.1 3.4 - 5.0 g/dl HISTORICAL RESULTS Alk phos 74 50 - 136 Units/L HISTORICAL RESULTS Bilirubin 0.7 0.1 - 1.0 mg/dl HISTORICAL RESULTS Bilirubin, direct 0.1 0.0 - 0.3 mg/dl HISTORICAL RESULTS ALT 162(H) 12 - 78 Units/L HISTORICAL RESULTS Comment:New referance range implemented on 01/25/2013 AST 69(H) 15 - 37 Units/L HISTORICAL RESULTS Plasma 05/20/2014 2:05 PM CDT us Paulina Jones MD LAB BLOOD ORDERABLE S Final Result HISTORICAL RESULTS * DISCHARGE LABORATORY CUMULATIVE REPORT (05/20/2014) Narrative 05/20/2014 Ordered by an unspecified provider. us Historical Provider LAB BLOOD ORDERABLES Génesis l Result documented in this encounter Visit Diagnoses Diagnosis Regional enteritis of large intestine (CMS/HCC) (HCC) Regional enteritis of large intestine Encounter for long-term (current) use of other medications documented in this encounter
--- OUTSIDE RECORDS SUMMARY | 2024-11-11 19:17 | XMS_ITS | Encounter Summary ---
Author Organization [facility] Facility Care Team Providers Care Winery Worker Name Role Phone Unavailable Primary Care Provider Unavailabl e Encounter Details Date Type Department Care Team (Late st Contact Info) Description 06/19/2015 9:44 AM CDT - 06/19/2015 11:59 PM CDT Hospital Encounter [facility] Paulina Tillman MD [address] [place] [address] Izabela Gregoyr NP [address] [place] [address] Regional enteritis of large intestine (CMS/HCC); Encounter for long-term (current) use of other medications Social History Tobacco Use Types Packs/Day Years Used Date Smoking Tobacco: Never Assessed Sex and Gender Information Value Date Recorded Sex Assigned at Not on file 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 Gender Identity Not on file Sexual [...] Info) Description 11/09/2024 Plan of Care Documentation [address] [place] [address] documented as of this encounter Procedures Procedure Name Priority Date/Time Associated Diagnosis Comments PLASMA HEPATIC FUNCTION PANEL Routine 06/19/2015 10:00 AM CDT PLASMA C-REACTIVE PROTEIN, HIGH SENSITIVITY Routine 06/19/2015 10:00 AM CDT BLOOD ERYTHROCYTE SEDIMENTATION RATE (ESR) Routine 06/19/2015 10:00 AM CDT BLOOD CELL COUNT (CBC), MORPHOLOGIC EXAM Routine 06/19/2015 10:00 AM CDT BLOOD PROMETHEUS THIOPURINE METABOLITES Routine 06/19/2015 5:00 AM CDT REFERENCE LABORATORY MISCELLANEOUS TESTING 06/19/2015 DISCHARGE LABORATORY CUMULATIVE REPORT 06/19/2015 documented in this encounter Results * (ABNORMAL) Blood erythrocyte sedimentation rate (ESR) (06/19/2015 10:00 AM CDT) Pathologist [facility] Erythrocyte sedimentation rate 22.0(H) 0.0 - 10.0 mm/hr HISTORICAL RESULTS Comment:A new method was imp lemented on 05/23/14. Blood specimen (specimen) 06/19/2015 10:00 AM CDT us Izabela Gregory TOOL CRIB MANAGER LAB BLOOD ORDJuan MEDRANO Final Result HISTORICAL RESULTS * Plasma hepatic function panel (06/19/2015 10:00 AM CDT) Protein, pl 7.5 6.4 - 8.2 g/dl HISTORICAL RESULTS Alb 3.6 3.4 - 5.0 g/dl HISTORICAL RESULTS Alk phos 62 50 - 136 Units/L HISTORICAL RESULTS Bilirubin 0.6 0.1 - 1.0 mg/dl HISTORICAL RESULTS Bilirubin, direct 0.1 0.0 - 0.3 mg/dl HISTORICAL RESULTS ALT 46 12 - 78 Units/L HISTORICAL RESULTS Comment:New referance range implemented on 01/25/2013 AST 30 15 - 37 Units/L HISTORICAL RESULTS Plasma 06/19/2015 10:0 0 AM CDT Izabela Gregory TOOL CRIB MANAGER LAB BLOOD OLLIE MEDRANO Final Result HISTORICAL RESULTS * Plasma C-reactive protein, high sensitivity (06/19/2015 10:00 AM CDT) C-RP, high sensitivity 42.4 mg/L HISTORICAL RESULTS Comment: ?Expected values for healthy individuals are < or = 3.0 mg/L. ?The AHA/CDC Scientific Statement provides the following risk assessment guidelines: ?Risk: ?hsCRP (mg/L): ?Low ? < 1.0 mg/L ?Average ? 1.0 - 3.0 mg/L ?High ? > 3.0 mg/L ?Interpretive text: ??When using hs-CRP to access cardiovascular risk, two measurements should be taken, two weeks apart (averaging results). ??If hs-CRP is >10 mg/L, the test should be repeated and patient examined for sources of infection or inflamation. Plasma 06/19/2015 10:0 0 AM CDT Izabela Gregory NP LAB BLOOD ORDJuan MEDRANO Final Result HISTORICAL RESULTS * (ABNORMAL) Blood cell count (CBC), morphologic exam (06/19/2015 10:00 AM CDT) WBC 7.1 4.5 - 11.0 K/cumm HISTORICAL RESULTS RBC 4.43(L) 4.50 - 6.20 M/cumm HISTORICAL RESULTS Hgb 13.9 13.0 - 17.0 g/dl HISTORICAL RESULTS Hct 41.2 39.0 - 52.0 % HISTORICAL RESULTS MCV 93.0 80.0 - 100.0 fl HISTORICAL RESULTS MCH 31.4 27.0 - 33.0 pg HISTORICAL RESULTS MCHC 33.7 32.0 - 36.0 g/dl HISTORICAL RESULTS Rdw 13.7 11.5 - 14.5 % HISTORICAL RESULTS Platelets 373 140 - 400 K/cumm HISTORICAL RESULTS MPV 10.5(H) 7.4 - 10.4 fl HISTORICAL RESULTS Neutrophils 65.8 42.0 - 75.0 % HISTORICAL RESULTS Lymphocytes 22.9 21.0 - 51.0 % HISTORICAL RESULTS Monos 9.6(H) 2.0 - 9.0 % HISTORICAL RESULTS Eosinophils 1.1 0.0 - 10.0 % HISTORICAL RESULTS Basophils 0.6 0.0 - 1.0 % HISTORICAL RESULTS Neutrophils, abs 4.7 1.0 - 6.6 K/cumm HISTORICAL RESULTS Lymphocytes, abs 1.6 1.2 - 3.3 K/cumm HISTORICAL RESULTS Monocytes, absolute 0.7 0.2 - 1.2 K/cumm HISTORICAL RESULTS Eosinophils, abs 0.1 0.0 - 0.5 K/cumm HISTORICAL RESULTS Basophils, abs 0.0 0.0 - 0.2 K/cumm HISTORICAL RESULTS Blood specimen (specimen) 06/19/2015 10:00 AM CDT Izabela Gregory NP LAB BLOOD ORDE RABMANUEL Final Result HISTORICAL RESULTS * Blood [facility] thiopurine metabolites (06/19/2015 5:00 AM CDT) [facility] Thiopurine metabolites Results available electronically in Clinical Desktop under Laboratory - Scanned Lab Reports - reference lab test. HISTORICAL RESULTS Blood specimen (specimen) 06/19/2015 5:00 AM CDT Narrative HISTORICAL RESULTS - 06/26/2015 2:25 PM CDT Test performed at [facility], [address], [place], [place], [place], [address] Izabela Gregory NP LAB BLOOD OLLIE MEDRANO Final Result HISTORICAL RESULTS * REFERENCE LABORATORY MISCELLANEOUS TESTING (06/19/2015) Narrative 06/19/2015 Ordered by an unspecified provider. Historical Provider LAB BLOOD ORDERABLES Génesis l Result * DISCHARGE LABORATORY CUMULATIVE REPORT (06/19/2015) Narrative 06/19/2015 Ordered by an unspecified provider. Historical Provider MD LAB BLOOD ORDERABLES Génesis l Result documented in this encounter Visit Diagnoses Diagnosis Regional enteritis of large intestine (CMS/HCC) (HCC) Regional enteritis of large intestine Encounter for long-term (current) use of other medications documented in this encounter
--- OUTSIDE RECORDS SUMMARY | 2024-11-11 19:17 | XMS_ITS | Encounter Summary ---
Author Organization [facility] Facility Care Team Providers Care Drier And Pulverizer Tender Name Role Phone Unavailable Primary Care Provider Unavailabl e Encounter Details Date Type Department Care Team (Late st Contact Info) Description 01/04/2014 8:36 AM EVP CHIEF EXPLORATION OFFICER - 01/04/2014 4:00 PM EVP CHIEF EXPLORATION OFFICER Hospital Encounter [facility] Paulina Tillman MD [address] [facility] [place] [place] [address] Regional enteritis of small intestine (CMS/HCC) (HCC); Other specified disorders of intestines; History of other endocrine, metabolic, and immunity disorders Social History Tobacco Use Types Packs/Day Years Used Date Smoking Tobacco: Never Assessed Sex and Gender Information Value Date Recorded Sex Assigned at Not on file Legal Sex Male 9:34 AM EVP CHIEF EXPLORATION OFFICER Gender Identity Not on file Sexual Orientation Not on file documented as of this encounter Plan of Treatment Upcoming Encounters Date Type Department Care Team (Late st Contact Info) Description 11/09/2024 Plan of Care Documentation [address] [address] [address] [place] [address] documented as of this encounter Procedures Procedure Name Priority Date/Time Associated Diagnosis Comments COLONOSCOPY REPORT 01/04/2014 SURGICAL PATHOLOGY 01/04/2014 documented in this encounter Results * Surgical pathology (01/04/2014) Narrative 01/04/2014 Ordered by an unspecified provider. us Historical Provider LAB PATHOLOGY ORDERABLES Final Result * COLONOSCOPY REPORT (01/04/2014) Anatomical Region Laterality Modality Other Narrative 01/04/2014 Ordered by an unspecified provider. us Historical Provider GI PROCEDURE ORDERABLES F inal Result documented in this encounter Visit Diagnoses Diagnosis Regional enteritis of small intestine (CMS/HCC) (HCC) Regional enteritis of small intestine Other specified disorders of intestines History of other endocrine, metabolic, and immunity disorders documented in this encounter
--- OUTSIDE RECORDS SUMMARY | 2024-11-11 19:17 | XMS_ITS | Encounter Summary ---
Author Organization [facility] Facility Care Team Providers Care Oral And Maxillofacial Pathologist Name Role Phone Unavailable Primary Care Provider Unavailabl e Encounter Details Date Type Department Care Team (Late st Contact Info) Description 09/18/2013 - 09/18/2013 11:59 PM ENGINEERING EXECUTIVE Hospital Encounter [facility] Paulina Tillman MD [address] [facility] [address] [place] [address] Regional enteritis of large intestine (CMS/HCC) (HCC) Social History Tobacco Use Types Packs/Day Years Used Date Smoking Tobacco: Never Assessed Sex and Gender Information Value Date Recorded Sex Assigned at Not on file Legal Sex Male 9:34 AM ENGINEERING EXECUTIVE Gender Identity Not on file Sexual Orientation Not on file documented as of this encounter Plan of Treatment Upcoming Encounters Date Type Department Care Team (Late st Contact Info) Description 11/09/2024 Plan of Care Documentation [address] [address] [address] [place] [address] documented as of this encounter Procedures Procedure Name Priority Date/Time Associated Diagnosis Comments DISCHARGE LABORATORY CUMULATIVE REPORT Routine 10/02/2013 5:10 PM ENGINEERING EXECUTIVE SERUM IRON PROFILE Routine 09/18/2013 12 :59 PM ENGINEERING EXECUTIVE SERUM FERRITIN Routine 09/18/2013 12:59 PM ENGINEERING EXECUTIVE SERUM CYANOCOBALAMIN (VITAMIN B12) Routine 09/18/2013 12:59 PM ENGINEERING EXECUTIVE SERUM 25-HYDROXYCHOLECALCIFEROL (VITAMIN D) Routine 09/18/2013 12:59 PM ENGINEERING EXECUTIVE PLASMA HEPATIC FUNCTION PANEL Routine 09/18/2013 12:59 PM ENGINEERING EXECUTIVE BLOOD THIOPURINE METHYLTRANSFERASE (TPMT) Routine 09/18/2013 12:59 PM ENGINEERING EXECUTIVE BLOOD CELL COUNT (CBC) Routine 3 12:59 PM ENGINEERING EXECUTIVE SERUM FOLIC ACID Routine 09/18/2013 12:5 2 PM ENGINEERING EXECUTIVE BLOOD THIOPURINE METHYLTRANSFERASE (TPMT) Routine 09/18/2013 12:52 PM ENGINEERING EXECUTIVE documented in this encounter Results * Discharge Laboratory Cumulative Report (10/02/2013 5:10 PM ENGINEERING EXECUTIVE) 10/02/2013 5:10 PM ENGINEERING EXECUTIVE Narrative HISTORICAL RESULTS - 10/02/2013 5:10 PM ENGINEERING EXECUTIVE ? [facility] ? Department of Laboratories ?[facility] [address] ?[facility] ?CAM 8- C Patient Name: ? DANTE PERALTA Med Rec Number: ?? [id number] Date of : ?1980 Gender/Age: ? Male 32 years Doctor: ? <Unknown> Report Date/Time: 10/02/2013 17:10 ?* Abnormal ??C Critical ??f Footnote ??^ Corrected ??L Low ??H High ?i Interp Data ??@ Reference Lab ?Chart Type: Cumulative ? CHEMISTRY ? Standard Blood Chemistry ?09/18/2013 ?12:59:15 Test ?Units ?Reference Total Bilirubin ? 0.6 ? mg/dL ?0.3-1.1 Bilirubin, Direct ? 0.1 ? mg/dL ?0.0-0.3 Plasma Total Protein ??7.5 ? g/dL ? 6.5-8.5 Albumin ? 4.4 ? g/dL ? 3.6-5.0 Alkaline Phosphatase ??59 ?Units/L ??38-126 ALT ? 49 ?Units/L ??7-53 AST ? 29 ?Units/L ??11-47 ?Other Chemistry ?09/18/2013 ?12:59:00 Test ?Units ??Reference 25 Hydroxy Vitamin D ??21 ??L ? ng/mL ??30-100 ? TOXICOLOGY/THERAPEUTIC DRUG MONITORING ?Therapuetic Drug Levels ? 09/18/2013 ??09/18/2013 ? 12:59:00 ?12:52:00 Test ?Units ? Reference TPMT Activity RBC ??13.5 ??Lf ?See Comment ??^f ??units/mL RBC ? TOXICOLOGY/THERAPEUTIC DRUG MONITORING ?Therapuetic Drug Levels 09/18/2013 12:59:00 ??TPMT Activity RBC: In this sample, the TPMT activity level does not allow reliable designation of this patient as either a carrier or non-carrier for a TPMT mutation. Consequently, we suggest careful drug dosage adjustment, and CBC monitoring if treatment with azathioprine, 6-mercaptopurine, or 6-thioguanine was to be started (Jori MOLINA. Inflamm Bowel Dis 2004; 10: S35-7; Karen MV et al. Clin Pharmacol Ther 2011; 89: 387-91). Please contact the [employer] direct sales consultant acetaldehyde converter operator ( ) if you have any questions. -- REFERENCE VALUE -- >=15.0 (Normal) 10.1-14.9 (Low normal) 6.0-10.0 (Carrier) <6.0 (Deficient) 09/18/2013 12:52:00 ??TPMT Activity RBC: Corrected from ??on 10/02/2013 13:18:49 by LGM 09/18/2013 12:52:00 ??TPMT Activity RBC: Credited, laboratory processing error.Thiopurine Methyltransferase, RBC was cancelled on 09/19/2013 at 10:58; Test not available on specimen source received. Received plasma, test requires whole blood -- REFERENCE VALUE -- >=15.0 (Normal) 10.1-14.9 (Low normal) 6.0-10.0 (Carrier) <6.0 (Deficient) Liquid Chromatography-Tandem Mass Spectrometry (LC-MS/MS) Test Performed by: [place] [address] Hydraulic Bull Riveter Operator: Jeremy Cooper III, M.D. ?HEMATOLOGY ?Standard Hematology ?09/18/2013 ?12:59:15 Test ?Units ?? Reference WBC ? 8.3 ? K/cumm ??3.8-9.8 RBC ? 4.50 ?M/cumm ??4.50-5.70 Hgb ? 13.8 ?g/dL ?13.8-17.2 Hct ? 40.5 ??L ? % ? 40.7-50.[address] ? 254 ? K/cumm ??140-440 MCV ? 90.0 ?fL ?80.0-97.6 MCH ? 30.6 ?pg ?26.7-33.7 MCHC ?34.0 ?g/dL ?32.7-35.5 RDW ? 12.5 ?% ? 11.8-14.6 MPV ? 7.6 ? fL ?6.8-10.4 Neut Pct Auto ?? 68.2 ?% ? 38.7-74.5 Lymph Pct Auto ??24.1 ?% ? 20.0-54.3 Leslie Pct Auto ?? 6.4 ? % ? 4.3-13.5 Eos Pct Auto ?0.9 ? % ? 0.0-6.0 ?HEMATOLOGY ?Standard Hematology ?09/18/2013 ?12:59:15 Test ?Units ?? Reference Baso Pct Auto ?? 0.4 ? % ? 0.0-3.0 Neut Abs Auto ?? 5.7 ? K/cumm ??1.8-6.6 Lymph Abs Auto ??2.0 ? K/cumm ??1.2-3.3 Leslie Abs Auto ?? 0.5 ? K/cumm ??0.2-1.2 Eos Abs Auto ?0.1 ? K/cumm ??0.0-0.5 Baso Abs Auto ?? 0.0 ? K/cumm ??0.0-0.2 ?09/18/2013 ??09/18/2013 ?12:59:15 ?12:52:00 Test ?Units ?? Reference Total Iron ?60 ?mcg/dL ??45-160 Total Iron Bind Capacity ??310 ? mcg/dL ??220-420 Unsat Iron Bind Capacity ??250 ? mcg/dL Transferrin Saturation ?19 ??L ? % ? 20-50 Ferritin ?159 ? ng/mL ?? 22-322 Vitamin B12 ? 824 ? pg/mL ?? 211- 911 Serum Folate ?16.0 ?mcg/L ?? 5.4- 999.9 us Historical Provider MD LAB BLOOD ORDERABLES Génesis l Result Performing Organization Address [facility] de Phone Number HISTORICAL RESULTS * Serum cyanocobalamin (vitamin B12) (09/18/2013 12:59 PM ENGINEERING EXECUTIVE) Pathologist [facility] Cyanocobalamin (Vit B12) 824 211 - 911 pg/ml HISTORICAL RESULTS Serum 09/18/2013 12:5 9 PM ENGINEERING EXECUTIVE Paulina Jones MD LAB BLOOD ORDERABLE S Final Result Performing Organization Address [facility] de Phone Number HISTORICAL RESULTS * Plasma hepatic function panel (09/18/2013 12:59 PM ENGINEERING EXECUTIVE) Pathologist [facility] Protein, pl 7.5 6.5 - 8.5 g/dl HISTORICAL RESULTS Alb 4.4 3.6 - 5.0 g/dl HISTORICAL RESULTS Bilirubin 0.6 0.3 - 1.1 mg/dl HISTORICAL RESULTS Bilirubin, direct 0.1 0.0 - 0.3 mg/dl HISTORICAL RESULTS Alk phos 59 38 - 126 Units/L HISTORICAL RESULTS AST 29 11 - 47 Units/L HISTORICAL RESULTS ALT 49 7 - 53 Units/L HISTORICAL RESULTS Plasma 09/18/2013 12:5 9 PM ENGINEERING EXECUTIVE Paulina Jones MD LAB BLOOD ORDERABLE S Final Result Performing Organization Address [facility] de Phone Number HISTORICAL RESULTS * (ABNORMAL) Serum 25-hydroxycholecalciferol (vitamin D) (09/18/2013 12:59 PM ENGINEERING EXECUTIVE) Pathologist [facility] 25-OH Vit D 21(L) 30 - 100 ng/ml HISTORICAL RESULTS Serum 09/18/2013 12:5 9 PM ENGINEERING EXECUTIVE Paulina Jones MD LAB BLOOD ORDERABLE S Final Result Performing Organization Address [facility] de Phone Number HISTORICAL RESULTS * (ABNORMAL) Serum iron profile (09/18/2013 12:59 PM ENGINEERING EXECUTIVE) Pathologist [facility] Iron 60 45 - 160 mcg/dl HISTORICAL RESULTS UIBC 250 mcg/dl HISTORICAL RESULTS TIBC 310 220 - 420 mcg/dl HISTORICAL RESULTS Transferrin saturation 19(L) 20 - 50 % HISTORICAL RESULTS Serum 09/18/2013 12:5 9 PM ENGINEERING EXECUTIVE Paulina Jones MD LAB BLOOD ORDERABLE S Final Result Performing Organization Address [facility] de Phone Number HISTORICAL RESULTS * Serum ferritin (09/18/2013 12:59 PM ENGINEERING EXECUTIVE) Pathologist [facility] Ferritin 159 22 - 322 ng/ml HISTORICAL RESULTS Serum 09/18/2013 12:5 9 PM ENGINEERING EXECUTIVE Paulina Jones MD LAB BLOOD ORDERABLE S Final Result Performing Organization Address [facility] de Phone Number HISTORICAL RESULTS * (ABNORMAL) Blood cell count (CBC) (09/18/2013 12:59 PM ENGINEERING EXECUTIVE) Pathologist [facility] WBC 8.3 3.8 - 9.8 K/cumm HISTORICAL RESULTS RBC 4.50 4.50 - 5.70 M/cumm HISTORICAL RESULTS Hgb 13.8 13.8 - 17.2 g/dl HISTORICAL RESULTS Hct 40.5(L) 40.7 - 50.3 % HISTORICAL RESULTS MCV 90.0 80.0 - 97.6 fl HISTORICAL RESULTS MCH 30.6 26.7 - 33.7 pg HISTORICAL RESULTS MCHC 34.0 32.7 - 35.5 g/dl HISTORICAL RESULTS Rdw 12.5 11.8 - 14.6 % HISTORICAL RESULTS Platelets 254 140 - 440 K/cumm HISTORICAL RESULTS MPV 7.6 6.8 - 10.4 fl HISTORICAL RESULTS Neutrophils 68.2 38.7 - 74.5 % HISTORICAL RESULTS Lymphocytes 24.1 20.0 - 54.3 % HISTORICAL RESULTS Monos 6.4 4.3 - 13.5 % HISTORICAL RESULTS Eosinophils 0.9 0.0 - 6.0 % HISTORICAL RESULTS Basophils 0.4 0.0 - 3.0 % HISTORICAL RESULTS Neutrophils, abs 5.7 1.8 - 6.6 K/cumm HISTORICAL RESULTS Lymphocytes, abs 2.0 1.2 - 3.3 K/cumm HISTORICAL RESULTS Monocytes, absolute 0.5 0.2 - 1.2 K/cumm HISTORICAL RESULTS Eosinophils, abs 0.1 0.0 - 0.5 K/cumm HISTORICAL RESULTS Basophils, abs 0.0 0.0 - 0.2 K/cumm HISTORICAL RESULTS Blood specimen (specimen) 09/18/2013 12:59 PM ENGINEERING EXECUTIVE us Paulina Jones MD LAB BLOOD ORDERABLE S Final Result HISTORICAL RESULTS * (ABNORMAL) Blood thiopurine methyltransferase (TPMT) (09/18/2013 12:59 PM ENGINEERING EXECUTIVE) TPMT 13.5(L) Units/ml RBC HISTORICAL RESULTS Comment: In this sample, the TPMT activity level does not allow reliable designation of this patient as either a carrier or non-carrier for a TPMT mutation. Consequently, we suggest careful drug dosage adjustment, and CBC monitoring if treatment with azathioprine, 6-mercaptopurine, or 6-thioguanine was to be started (Jori WJ. Inflamm Bowel Dis 2004; 10: S35-7; Karen SHARPE et al. Clin Pharmacol Ther 2011; 89: 387-91). Please contact the [employer] direct sales consultant acetaldehyde converter operator ( ) if you have any questions. -- REFERENCE VALUE -- >=15.0 (Normal) 10.1-14.9 (Low normal) 6.0-10.0 (Carrier) <6.0 (Deficient) Blood specimen (specimen) 09/18/2013 12:59 PM ENGINEERING EXECUTIVE us Paulina Jones MD LAB BLOOD ORDERABLE S Final Result Performing Organization Address [facility] de Phone Number HISTORICAL RESULTS * Blood thiopurine methyltransferase (TPMT) (09/18/2013 12:52 PM ENGINEERING EXECUTIVE) TPMT See Comment Units/ml RBC HISTORICAL RESULTS Comment: Credited, laboratory processing error.Thiopurine Methyltransferase, RBC was cancelled on 09/19/2013 at 10:58; Test not available on specimen source received. Received plasma, test requires whole blood -- REFERENCE VALUE -- >=15.0 (Normal) 10.1-14.9 (Low normal) 6.0-10.0 (Carrier) <6.0 (Deficient) Liquid Chromatography-Tandem Mass Spectrometry (LC-MS/MS) Test Performed by: [place] [address] Hydraulic Bull Riveter Operator: Jeremy Cooper III, M.D. Blood specimen (specimen) 09/18/2013 12:52 PM ENGINEERING EXECUTIVE us Paulina Jones MD LAB BLOOD ORDERABLE S Final Result Performing Organization Address [facility] Co de Phone Number HISTORICAL RESULTS * Serum folic acid (09/18/2013 12:52 PM ENGINEERING EXECUTIVE) Folic acid 16.0 5.4 - 999.9 mcg/L HISTORICAL RESULTS Serum 09/18/2013 12:5 2 PM ENGINEERING EXECUTIVE us Paulina Jones MD LAB BLOOD ORDERABLE S Final Result HISTORICAL RESULTS documented in this encounter Visit Diagnoses Diagnosis Regional enteritis of large intestine (CMS/HCC) (HCC) Regional enteritis of large intestine documented in this encounter
--- OUTSIDE RECORDS SUMMARY | 2024-11-11 19:17 | XMS_ITS | Encounter Summary ---
Author Organization [facility] Facility Care Team Providers Care Grab Driver Name Role Phone Unavailable Primary Care Provider Unavailabl e Encounter Details Date Type Department Care Team (Latest Contact Info) Description 01/11/2013 3:41 PM SURGICAL ASSISTANT CERTIFIED - 01/11/2013 7:31 PM SURGICAL ASSISTANT CERTIFIED Hospital Encounter [facility] Jong Lubin MD [address] [facility] [address] [place] [address] Cellulitis and abscess; Gout; Regional enteritis (CMS/HCC) (HCC) Social History Tobacco Use Types Packs/Day Years Used Date Smoking Tobacco: Never Assessed Sex and Gender Information Value Date Recorded Sex Assigned at Not on file Legal Sex Male 9:34 AM SURGICAL ASSISTANT CERTIFIED Gender Identity Not on file Sexual Orientation Not on file documented as of this encounter Plan of Treatment Upcoming Encounters Date Type Department Care Team (Late st Contact Info) Description 11/09/2024 Plan of Care Documentation [address] [address] [address] [place] [address] documented as of this encounter Procedures Procedure Name Priority Date/Time Associated Diagnosis Comments CT ABDOMEN PELVIS W CONTRAST Routine 01/11/2013 5:20 PM SURGICAL ASSISTANT CERTIFIED BLOOD CELL COUNT (CBC), MORPHOLOGIC EXAM Routine 01/11/2013 4:17 PM SURGICAL ASSISTANT CERTIFIED PLASMA LIPASE Routine 01/11/2013 4:07 PM SURGICAL ASSISTANT CERTIFIED PLASMA COMPREHENSIVE METABOLIC PANEL Routine 01/11/2013 4:07 PM SURGICAL ASSISTANT CERTIFIED DISCHARGE LABORATORY CUMULATIVE REPORT 01/11/2013 documented in this encounter Results * CT Abdomen Pelvis W Contrast (01/11/2013 5:20 PM SURGICAL ASSISTANT CERTIFIED) Anatomical Region Laterality Modality Body N/A Computed Tomogra phy 01/11/2013 5:20 PM SURGICAL ASSISTANT CERTIFIED Narrative 01/11/2013 5:51 PM SURGICAL ASSISTANT CERTIFIED ARABELLA MUELLER M.D. FINAL REPORT ACC# ??Date Time ??Exam [id number] Jan 11, 2013 17:20:[address] Abd & Pelvis w EXAMINATION: ?? CT the abdomen and pelvis with contrast HISTORY: Buttock abscess Technique: CT the abdomen pelvis was performed after the uneventful administration of 125 mL of Optiray-350 contrast according to the standard protocol. COMPARISON: None available FINDINGS: The heart size is normal. There is no pericardial effusion. There is some atelectasis at the bases. No effusion or focal consolidation. There are no focal liver lesions. There is no intrahepatic or extrahepatic ductal dilatation. The gallbladder, spleen, adrenal glands, pancreas and kidneys are normal. The small bowel and colon are normal in caliber without evidence of wall thickening or obstruction. Note is made of low-attenuation within wall of segments of small bowel including terminal ileum as well as the rectum that could represent fat within the bowel wall. There are borderline-enlarged periportal and mesenteric lymph nodes. For reference, a periportal lymph node measures 1.8 x 1.0 cm (SP -987.5). A right lower quadrant mesenteric lymph node measures 1.0 x 1.0 cm (SP -809.5) There is no inguinal, pelvic, mesenteric or retroperitoneal adenopathy. There is no free intraperitoneal air or fluid. The bladder is normal. There is a rim-enhancing right perianal gas and fluid collection extending from the 9:00 to 12:00 positions of the anus measuring 4.0 x 2.8 x 3.6 cm (SP -566.5). Bone windows demonstrate no suspicious lytic or blastic lesions. IMPRESSION: ?? 1. Findings compatible with right perianal abscess. Additional note is made of mural stratification of the small bowel and colon that is likely related to patient's known Crohn's disease. There is no evidence of active flair. 2. Nonspecific abdominal and pelvic adenopathy that may be reactive to the above described processes. Findings commuted to Dr. Miller by Dr. Mueller at 5:50 p.m. on the day of the study. Requested By: JOANNE MILLER D.O. Dictated By: ?? ARABELLA MUELLER M.D. ??on Jan ??2012 ??5:51P This document has been electronically signed by: ARABELLA MUELLER M.D. on Jan ??2012 ??5:51P Procedure Note Provider, MD Melissa - 03/10/2017 ARABELLA MUELLER M.D. FINAL REPORT ACC# Date Time Exam [id number] Jan 11, 2013 17:20:[id number] Abd & Pelvis w EXAMINATION: CT the abdomen and pelvis with contrast HISTORY: Buttock abscess Technique: CT the abdomen pelvis was performed after the uneventful administration of 125 mL of Optiray-350 contrast according to the standard protocol. COMPARISON: None available FINDINGS: The heart size is normal. There is no pericardial effusion. There is some atelectasis at the bases. No effusion or focal consolidation. There are no focal liver lesions. There is no intrahepatic or extrahepatic ductal dilatation. The gallbladder, spleen, adrenal glands, pancreas and kidneys are normal. The small bowel and colon are normal in caliber without evidence of wall thickening or obstruction. Note is made of low-attenuation within wall of segments of small bowel including terminal ileum as well as the rectum that could represent fat within the bowel wall. There are borderline-enlarged periportal and mesenteric lymph nodes. For reference, a periportal lymph node measures 1.8 x 1.0 cm (SP -987.5). A right lower quadrant mesenteric lymph node measures 1.0 x 1.0 cm (SP -809.5) There is no inguinal, pelvic, mesenteric or retroperitoneal adenopathy. There is no free intraperitoneal air or fluid. The bladder is normal. There is a rim-enhancing right perianal gas and fluid collection extending from the 9:00 to 12:00 positions of the anus measuring 4.0 x 2.8 x 3.6 cm (SP -566.5). Bone windows demonstrate no suspicious lytic or blastic lesions. IMPRESSION: 1. Findings compatible with right perianal abscess. Additional note is made of mural stratification of the small bowel and colon that is likely related to patient's known Crohn's disease. There is no evidence of active flair. 2. Nonspecific abdominal and pelvic adenopathy that may be reactive to the above described processes. Findings commuted to Dr. Miller by Dr. Mueller at 5:50 p.m. on the day of the study. Requested By: JOANNE MILLER D.O. Dictated By: ARABELLA MUELLER M.D. on Jan 11 2013 5:51P This document has been electronically signed by: ARABELLA MUELLER M.D. on Jan 11 2013 5:51P us Historical Provider MD LUONG CT PROCEDURES Final R esult * (ABNORMAL) Blood cell count (CBC), morphologic exam (01/11/2013 4:17 PM SURGICAL ASSISTANT CERTIFIED) WBC 9.0 4.5 - 11.0 K/cumm HISTORICAL RESULTS RBC 4.67 4.50 - 6.20 M/cumm HISTORICAL RESULTS Hgb 13.9 13.0 - 17.0 g/dl HISTORICAL RESULTS Hct 42.5 39.0 - 52.0 % HISTORICAL RESULTS MCV 91.0 80.0 - 100.0 fl HISTORICAL RESULTS MCH 29.8 27.0 - 33.0 pg HISTORICAL RESULTS MCHC 32.7 32.0 - 36.0 g/dl HISTORICAL RESULTS Rdw 12.0 11.5 - 14.5 % HISTORICAL RESULTS Platelets 254 140 - 400 K/cumm HISTORICAL RESULTS MPV 9.3 7.4 - 10.4 fl HISTORICAL RESULTS Neutrophils 65.7 42.0 - 75.0 % HISTORICAL RESULTS Lymphocytes 23.2 21.0 - 51.0 % HISTORICAL RESULTS Monos 9.8(H) 2.0 - 9.0 % HISTORICAL RESULTS Eosinophils 1.0 0.0 - 10.0 % HISTORICAL RESULTS Basophils 0.3 0.0 - 1.0 % HISTORICAL RESULTS Neutrophils, abs 5.9 1.0 - 6.6 K/cumm HISTORICAL RESULTS Lymphocytes, abs 2.1 1.2 - 3.3 K/cumm HISTORICAL RESULTS Monocytes, absolute 0.9 0.2 - 1.2 K/cumm HISTORICAL RESULTS Eosinophils, abs 0.1 0.0 - 0.5 K/cumm HISTORICAL RESULTS Basophils, abs 0.0 0.0 - 0.2 K/cumm HISTORICAL RESULTS Blood specimen (specimen) 01/11/2013 4:17 PM SURGICAL ASSISTANT CERTIFIED Joanne Miller DO LAB BLOOD ORDERABLES Final Result HISTORICAL RESULTS * Plasma comprehensive metabolic panel (01/11/2013 4:07 PM SURGICAL ASSISTANT CERTIFIED) eGFR >60 ml/min/1.7 3 m2 HISTORICAL RESULTS Comment: GFR Reference Range: = > 60 mL/min/1.73 m2 This result has been calculated assuming the patient is Non-. ??If the patient is , please multiply this result by 1.21. Sodium 136 136 - 145 mmol/L HISTORICAL RESULTS K, pl 3.9 3.5 - 5.1 mmol/L HISTORICAL RESULTS Chloride 104 98 - 107 mmol/L HISTORICAL RESULTS CO2 26 21 - 32 mmol/L HISTORICAL RESULTS A. gap 6 3 - 11 mmol/L HISTORICAL RESULTS BUN 16 7 - 18 mg/dl HISTORICAL RESULTS Creatinine 1.0 0.6 - 1.3 mg/dl HISTORICAL RESULTS Glucose 96 70 - 140 mg/dl HISTORICAL RESULTS Comment: Glucose is assumed to be non-fasting. Fasting Glucose normal ranges are: 0 days - 1 month: ? 40 mg/dL - 100 mg/dL 1 month - 999 years: ?70 mg/dL - 99 mg/dL Protein, pl 7.3 6.4 - 8.2 g/dl HISTORICAL RESULTS Alb 3.9 3.4 - 5.0 g/dl HISTORICAL RESULTS Calcium 8.5 8.5 - 10.1 mg/dl HISTORICAL RESULTS Alk phos 75 50 - 136 Units/L HISTORICAL RESULTS Bilirubin 0.6 0.1 - 1.0 mg/dl HISTORICAL RESULTS ALT 56 30 - 65 Units/L HISTORICAL RESULTS AST 30 15 - 37 Units/L HISTORICAL RESULTS Plasma 01/11/2013 4:07 PM SURGICAL ASSISTANT CERTIFIED Joanne Miller DO LAB BLOOD ORDERABLES Final Result HISTORICAL RESULTS * Plasma lipase (01/11/2013 4:07 PM SURGICAL ASSISTANT CERTIFIED) Lip 212 43 - 243 Units/L HISTORICAL RESULTS Plasma 01/11/2013 4:07 PM SURGICAL ASSISTANT CERTIFIED Joanne Miller DO LAB BLOOD ORDERABLES Final Result Performing Organization Address [facility] de Phone Number HISTORICAL RESULTS * DISCHARGE LABORATORY CUMULATIVE REPORT (01/11/2013) Narrative 01/11/2013 Ordered by an unspecified provider. Historical Provider LAB BLOOD ORDERABLES Génesis l Result documented in this encounter Visit Diagnoses Diagnosis Cellulitis and abscess Cellulitis and abscess of unspecified site Gout Gout, unspecified Regional enteritis (CMS/HCC) (HCC) Regional enteritis of unspecified site documented in this encounter
--- OUTSIDE RECORDS SUMMARY | 2024-11-11 19:17 | XMS_ITS | Encounter Summary ---
Author Organization [facility] Facility Care Team Providers Care Box Builder Name Role Phone Unavailable Primary Care Provider Unavailabl e Encounter Details Date Type Department Care Team (Late st Contact Info) Description 04/06/2013 8:12 AM CDT - 04/06/2013 4:00 PM CDT Hospital Encounter [facility] Ranjit Eastman MD [address] [facility] [phone] [place] [address] Abscess of anal and rectal regions; Regional enteritis of large intestine (CMS/HCC) (HCC) Social History Tobacco Use Types Packs/Day Years Used Date Smoking Tobacco: Never Assessed Sex and Gender Information Value Date Recorded Sex Assigned at Not on file 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 Surgeon: Ranjit Eastman M.D. Dictating: Ranjit Eastman M.D. Service Dt: 04/06/2013 OPERATIVE REPORT FIRST CLINICAL TECHNICIAN: Luis Carlos Esposito MD ANESTHESIA: IV sedation with 50 mL of 0.25% Marcaine. PREOPERATIVE DIAGNOSIS (ES): Perianal Crohn's disease with recurrent right ischiorectal abscess. POSTOPERATIVE DIAGNOSIS (ES): Perianal Crohn's disease with recurrent right ischiorectal abscess. NAME OF OPERATION: Examination under anesthesia with I D of perirectal abscess. INDICATIONS FOR PROCEDURE: The gentleman is a 32-year-old gentleman with a history of perianal Crohn's disease and a right ischiorectal abscess that has been drained. He currently has a Seton in place. However, he has had decreasing drainage with increasing pain associated with the Seton. Therefore, it was elected to bring him to the operating room for an examination under anesthesia. OPERATIVE FINDINGS: Large right ischiorectal abscess that was draining pus. DESCRIPTION OF PROCEDURE: With informed consent, the patient was brought to the operating room and placed in the prone lesly-knife position. He was not given any prophylactic IV antibiotics or veno thromboembolic event prophylaxis. The perineum was prepped and draped in the usual sterile fashion and a local anesthesia was administered. A medium size Hill-Patrick retractor was inserted. The anal canal was inspected. The external opening at the site of the Seton was then opened and immediately a large volume of pus was drained. The entire extent of the abscess cavity was probed and irrigated and a 10 Faroese mushroom catheter was then placed in the deepest recesses of the abscess cavity. This concluded our case. The patient tolerated the procedure well. He was then taken to postanesthesia recovery in stable condition. SPECIMENS REMOVED: None. ESTIMATED BLOOD LOSS: Minimal. INTRAOPERATIVE FLUIDS: 1 liter. SPONGE/INSTRUMENT/NEEDLE COUNTS: Correct. CONDITION ON DISCHARGE FROM OPERATING ROOM: Stable. ATTESTATION STATEMENT: Of note, IDr. Eastman was present for the entire case. Electronically Signed By Ranjit Eastman M.D. 04/17/2013 12:04 P Joseph Hopper/collins #[id number] Editing MT: TD: 04/06/2013 11:41:00 cc: Ranjit Eastman M.D. documented in this encounter Plan of Treatment Upcoming Encounters Date Type Department Care Team (Late st Contact Info) Description 11/09/2024 Plan of Care Documentation [address] [address] [address] [place] [address] documented as of this encounter Visit Diagnoses Diagnosis Abscess of anal and rectal regions Regional enteritis of large intestine (CMS/HCC) (HCC) Regional enteritis of large intestine documented in this encounter
--- OUTSIDE RECORDS SUMMARY | 2024-11-11 19:17 | XMS_ITS | Encounter Summary ---
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
--- OUTSIDE RECORDS SUMMARY | 2024-11-11 19:17 | XMS_ITS | Encounter Summary ---
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); Encounter for long-term (current) use of other medications Social History Tobacco Use Types Packs/Day Years Used Date Smoking Tobacco: Never Assessed Sex and Gender Information Value Date Recorded Sex Assigned at Not on file 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 Gender Identity Not on file Sexual Orientation Not on file documented as of this encounter Plan of Treatment Upcoming Encounters Date Type Department Care Team (Late st Contact Info) Description 11/09/2024 Plan of Care Documentation [address] [address] [address] [place] [address] documented as of this encounter Procedures Procedure Name Priority Date/Time Associated Diagnosis Comments PLASMA HEPATIC FUNCTION PANEL Routine 10/19/2013 2:30 PM CLINICAL AUDIOLOGIST BLOOD CELL COUNT (CBC), MORPHOLOGIC EXAM Routine 10/19/2013 2:30 PM CLINICAL AUDIOLOGIST DISCHARGE LABORATORY CUMULATIVE REPORT 10/19/2013 documented in this encounter Results * Plasma hepatic function panel (10/19/2013 2:30 PM CLINICAL AUDIOLOGIST) Pathologist [facility] Protein, pl 7.1 6.4 - 8.2 g/dl HISTORICAL RESULTS Alb 3.7 3.4 - 5.0 g/dl HISTORICAL RESULTS Alk phos 57 50 - 136 Units/L HISTORICAL RESULTS Bilirubin 0.5 0.1 - 1.0 mg/dl HISTORICAL RESULTS Bilirubin, direct 0.1 0.0 - 0.3 mg/dl HISTORICAL RESULTS ALT 49 12 - 78 Units/L HISTORICAL RESULTS Comment:New referance range implemented on 01/25/2013 AST 18 15 - 37 Units/L HISTORICAL RESULTS Plasma 10/19/2013 2:30 PM CLINICAL AUDIOLOGIST Paulina Jones MD LAB BLOOD ORDERABLE S Final Result HISTORICAL RESULTS * (ABNORMAL) Blood cell count (CBC), morphologic exam (10/19/2013 2:30 PM CLINICAL AUDIOLOGIST) Pathologist [facility] WBC 8.4 4.5 - 11.0 K/cumm HISTORICAL RESULTS RBC 4.24(L) 4.50 - 6.20 M/cumm HISTORICAL RESULTS Hgb 13.0 13.0 - 17.0 g/dl HISTORICAL RESULTS Hct 38.6(L) 39.0 - 52.0 % HISTORICAL RESULTS MCV 91.0 80.0 - 100.0 fl HISTORICAL RESULTS MCH 30.7 27.0 - 33.0 pg HISTORICAL RESULTS MCHC 33.7 32.0 - 36.0 g/dl HISTORICAL RESULTS Rdw 12.5 11.5 - 14.5 % HISTORICAL RESULTS Platelets 321 140 - 400 K/cumm HISTORICAL RESULTS MPV 9.5 7.4 - 10.4 fl HISTORICAL RESULTS Neutrophils 61.0 42.0 - 75.0 % HISTORICAL RESULTS Lymphocytes 30.5 21.0 - 51.0 % HISTORICAL RESULTS Monos 6.7 2.0 - 9.0 % HISTORICAL RESULTS Eosinophils 1.4 0.0 - 10.0 % HISTORICAL RESULTS Basophils 0.4 0.0 - 1.0 % HISTORICAL RESULTS Neutrophils, abs 5.1 1.0 - 6.6 K/cumm HISTORICAL RESULTS Lymphocytes, abs 2.6 1.2 - 3.3 K/cumm HISTORICAL RESULTS Monocytes, absolute 0.6 0.2 - 1.2 K/cumm HISTORICAL RESULTS Eosinophils, abs 0.1 0.0 - 0.5 K/cumm HISTORICAL RESULTS Basophils, abs 0.0 0.0 - 0.2 K/cumm HISTORICAL RESULTS Blood specimen (specimen) 10/19/2013 2:30 PM CLINICAL AUDIOLOGIST Paulina Jones MD LAB BLOOD ORDERABLE S Final Result HISTORICAL RESULTS * DISCHARGE LABORATORY CUMULATIVE REPORT (10/19/2013) Narrative 10/19/2013 Ordered by an unspecified provider. Historical Provider LAB BLOOD ORDERABLES Génesis l Result documented in this encounter Visit Diagnoses Diagnosis Regional enteritis of large intestine (CMS/HCC) (HCC) Regional enteritis of large intestine Encounter for long-term (current) use of other medications documented in this encounter
--- OUTSIDE RECORDS SUMMARY | 2024-11-11 19:17 | XMS_ITS | Encounter Summary ---
Author Organization [facility] Facility Care Team Providers Care Automotive Glass Specialist Name Role Phone Unavailable Primary Care Provider Unavailabl e Encounter Details Date Type Department Care Team (Latest Contact Info) Description 08/22/2013 6:40 AM CDT - 08/22/2013 1:40 PM CDT Hospital Encounter [facility] Crissy Hernandez MD [address] [facility] [address] [address] Abscess of anal and rectal regions; Regional enteritis (CMS/HCC) (HCC); Anal fistula; Irritable colon; Gout Social History Tobacco Use Types Packs/Day Years Used Date Smoking Tobacco: Never Assessed Sex and Gender Information Value Date Recorded Sex Assigned at Not on file 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 Date: 08/22/2013 Surgeon: CRISSY JOLLY MD Admit Date: 08/22/2013 Disch. Date: 08/22/2013 Patient Type: S PREOPERATIVE DIAGNOSIS: Crohn's disease, perianal abscess fistula. POSTOPERATIVE DIAGNOSIS: Crohn's disease, perianal abscess fistula. NAME OF PROCEDURE: Examination under anesthesia, fistulotomy, debridement of abscess cavity. SURGEON: Crissy Jolly MD. SUGAR GRINDER: Gustavo Perez MD. ANESTHESIA: MAC. COMPLICATIONS: None. OPERATIVE FINDINGS: The patient had known Crohn's disease. He had a prior seton and a prior mushroom catheter both of these currently absent. He had an external opening in the right anterior perineal body which extended into a chronic draining abscess cavity and along a fistula tract with an internal opening in the anterior midline. The tract was probed, felt to be very superficial and therefore a fistulotomy was performed in order to remove the chronic draining tract. There was no evidence that this tract went through the anal sphincter and there was no evidence of this went through the more proximal tissue. Therefore the fistulotomy was performed. PROPHYLAXIS: He did not receive antibiotics. Tuberculosis were not placed due to the nature of the procedure. DESCRIPTION OF OPERATIVE PROCEDURE: The patient was brought to the operating room and IV sedation was given. He was placed in prone jackknife position, buttocks taped apart. Perianal area was prepped and sterilely draped. Then 0.25% Marcaine with epinephrine infiltrated into the subcutaneous tissues in the intersphincteric groove. The findings were as stated above. The tracts were probed. They were very superficial. It was then elected to open the fistula tract. Cautery was used for the skin and subcutaneous tissues. There was very minimal external muscle tissue incised. There was no significant internal or external muscle involved with the fistula tract. Therefore the fistulotomy was performed. The base was curetted well with a bone curette. The remainder of the tract extended into the anterior ischial rectal fossa. This was opened and the chronic draining cavity was debrided. This left a sizable separation of the skin but it was not a deep cavity. No evidence of undrained sepsis. No involvement of the anal sphincter. The wound was irrigated with saline. Hemostasis was maintained with a cautery. Packed with gauze. He was brought to the recovery room in stable condition. SPONGE, INSTRUMENT AND NEEDLE COUNTS: Correct x2. SPECIMENS: None. FLUIDS GIVEN: See Anesthesia note. BLOOD LOSS: 10 mL. ATTESTATION OF PRESENCE: I was the surgeon present for the entire case. MD PENG DHILLON/jonathan TD: 08/27/2013 11:19 Authenticated by Crissy Jolly MD On 08/28/2013 12:03:56 PM documented in this encounter Plan of Treatment Upcoming Encounters Date Type Department Care Team (Late st Contact Info) Description 11/09/2024 Plan of Care Documentation [address] [address] [address] [place] [id number] documented as of this encounter Visit Diagnoses Diagnosis Abscess of anal and rectal regions Regional enteritis (CMS/HCC) (HCC) Regional enteritis of unspecified site Anal fistula Irritable colon Gout Gout, unspecified documented in this encounter
--- OUTSIDE RECORDS SUMMARY | 2024-11-11 19:17 | XMS_ITS | Encounter Summary ---
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); Encounter for long-term (current) use of other medications Social History Tobacco Use Types Packs/Day Years Used Date Smoking Tobacco: Never Assessed Sex and Gender Information Value Date Recorded Sex Assigned at Not on file 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 Gender Identity Not on file Sexual Orientation Not on file documented as of this encounter Plan of Treatment Upcoming Encounters Date Type Department Care Team (Late st Contact Info) Description 11/09/2024 Plan of Care Documentation [address] [address] [address] [place] [address] documented as of this encounter Procedures Procedure Name Priority Date/Time Associated Diagnosis Comments PLASMA HEPATIC FUNCTION PANEL Routine 03/25/2014 1:30 PM CDT BLOOD CELL COUNT (CBC), MORPHOLOGIC EXAM Routine 03/25/2014 1:30 PM CDT DISCHARGE LABORATORY CUMULATIVE REPORT 03/25/2014 documented in this encounter Results * (ABNORMAL) Blood cell count (CBC), morphologic exam (03/25/2014 1:30 PM CDT) WBC 5.2 4.5 - 11.0 K/cumm HISTORICAL RESULTS RBC 4.47(L) 4.50 - 6.20 M/cumm HISTORICAL RESULTS Hgb 14.6 13.0 - 17.0 g/dl HISTORICAL RESULTS Hct 42.5 39.0 - 52.0 % HISTORICAL RESULTS MCV 95.1 80.0 - 100.0 fl HISTORICAL RESULTS MCH 32.7 27.0 - 33.0 pg HISTORICAL RESULTS MCHC 34.4 32.0 - 36.0 g/dl HISTORICAL RESULTS Rdw 12.6 11.5 - 14.5 % HISTORICAL RESULTS Platelets 197 140 - 400 K/cumm HISTORICAL RESULTS MPV 10.2 7.4 - 10.4 fl HISTORICAL RESULTS Neutrophils 53.3 42.0 - 75.0 % HISTORICAL RESULTS Lymphocytes 37.8 21.0 - 51.0 % HISTORICAL RESULTS Monos 6.4 2.0 - 9.0 % HISTORICAL RESULTS Eosinophils 2.3 0.0 - 10.0 % HISTORICAL RESULTS Basophils 0.2 0.0 - 1.0 % HISTORICAL RESULTS Neutrophils, abs 2.8 1.0 - 6.6 K/cumm HISTORICAL RESULTS Lymphocytes, abs 2.0 1.2 - 3.3 K/cumm HISTORICAL RESULTS Monocytes, absolute 0.3 0.2 - 1.2 K/cumm HISTORICAL RESULTS Eosinophils, abs 0.1 0.0 - 0.5 K/cumm HISTORICAL RESULTS Basophils, abs 0.0 0.0 - 0.2 K/cumm HISTORICAL RESULTS Blood specimen (specimen) 03/25/2014 1:30 PM CDT us Paulina Jones MD LAB BLOOD ORDERABLE S Final Result HISTORICAL RESULTS * (ABNORMAL) Plasma hepatic function panel (03/25/2014 1:30 PM CDT) Pathologist [facility] Protein, pl 7.2 6.4 - 8.2 g/dl HISTORICAL RESULTS Alb 3.9 3.4 - 5.0 g/dl HISTORICAL RESULTS Alk phos 68 50 - 136 Units/L HISTORICAL RESULTS Bilirubin 0.6 0.1 - 1.0 mg/dl HISTORICAL RESULTS Bilirubin, direct 0.1 0.0 - 0.3 mg/dl HISTORICAL RESULTS ALT 160(H) 12 - 78 Units/L HISTORICAL RESULTS Comment:New referance range implemented on 01/25/2013 AST 75(H) 15 - 37 Units/L HISTORICAL RESULTS Plasma 03/25/2014 1:30 PM CDT Paulina Jones MD LAB BLOOD ORDERABLE S Final Result HISTORICAL RESULTS * DISCHARGE LABORATORY CUMULATIVE REPORT (03/25/2014) Narrative 03/25/2014 Ordered by an unspecified provider. us Historical Provider LAB BLOOD ORDERABLES Génesis l Result documented in this encounter Visit Diagnoses Diagnosis Regional enteritis of large intestine (CMS/HCC) (HCC) Regional enteritis of large intestine Encounter for long-term (current) use of other medications documented in this encounter
--- OUTSIDE RECORDS SUMMARY | 2024-11-11 19:22 | XMS_ITS | Encounter Summary ---
Author Organization [facility] Address [address] [place] [address] Care Team Providers Care Used Car Lot Porter Name Role Phone Unavailable Primary Care Provider Antolin e Encounter Details Date Type Department Care Team (Latest Contact Info) Description 07/18/2024 12:00 PM CDT - 07/18/2024 11:59 PM CDT Hospital Encounter [facility] [address] [place] [phone] Kathleen Tran, TODD [address] [place] [phone] Vanessa Caldwell, corporate planning manager Disposition: Home or Self Care Social History Tobacco Use Types Packs/Day Years Used Date Smoking Tobacco: Former Cigarettes Smokeless Tobacco: Never Alcohol Use Standard Drinks/Week Comments Yes 5 (1 standard drink = 0.6 oz pur e alcohol) Feeling Safe Answer Date Recorded Are you in a relationship wi th someone who hurts you emotionally and/or physically? 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 Please call to confirm your appointment prior to driving in icy or snowy conditions. OSTOMY CARE INSTRUCTIONS Procedure: Laparoscopic end sigmoid diverting colostomy and ileocolic resection Date of surgery: 12-24-22 Surgeon: Irasema Ostomy Supplies: Coloplast 2pc Flex Convex Pre-cut 1 11/08 Barrier Pre cut 1 11/08 #56864 Pouch Drainable #00246 Closed ed Pouch: #02282 Coloplast Protective Seal 1 01/12 #82402 Adhesive Remover Cut your barrier to the proper size/shape. 1 / today. Or use Pre-cut if able. Change 2x/week Pouch Procedure: Apply a ring to the inner edge of the barrier Remove pouch, clean skin and allow to dry Pull up on skin Apply the barrier Detailed Pouch Change Procedure: Gather all Supplies needed: Scissors (curved preferred but not essential) Paper towels Plastic bag to dispose of trash Ostomy supplies listed above Close tail end of the pouch securely. Remove the backing paper from the barrier. If needed: Apply a ring/protective seal (looks like a washer) to the barrier at the inner and outeredge of barrier, rolling it into the cut edge to meld it together. Set aside. Remove old pouch. Try to schedule routine pouch change before eating or drinking. Clean your stoma and the surrounding skin with soap that does not leave a residue like Dial or Ivory(no Aleo or lotions) Assess stoma and surrounding skin for irritation. IF SKIN IS RED or IRRITATED: Treat skin irritation or ulcers with Stoma Powder (and Nystatin Powderif directed) using the crusting technique as directed below. If there is No redness or irritation you DO NOT need to use stoma powder. Crusting Technique: 1) Clean area gently but thoroughly 2) Pat dry with clean paper towel or gauze. 3) Apply/sprinkle stoma powder on areas of redness. 4) Use a soft paper towel, gauze or tissue to brush away excess powder. You will feel like you are brushing it all away, but it stays where it is needed. You may use a fine arts chair on low, if desired 5) Dab gently with a no-sting skin prep wipe or spray to seal or set the powder. 6) Allow to dry. Apply Skin Prep to skin around stoma until skin is sticky. Pull up on the skin above your stoma to round out the stoma/pull creases flat Apply barrier while still holding the skin taut, center the opening over the stoma and press down. Press around the stoma to seal the ring to your skin very well, starting at the stoma and working your way outward. Hold firm pressure over the pouch for 5 minutes to warm it. (warming softens the barrier so it molds better to your skin and activates the adhesive). PRESSURE and WARMTH are important in order to get a good SEAL Apply barrier extension strips or pink ostomy tape to the outer edges of the barrier and belt if needed. Gather up the trash in your plastic bag (a plastic shopping bag works well) and knot it to contain any odor or mess and put in the trash. Wash your hands. What is a Hernia Belt? A hernia belt, which can also be referred to as a hernia prevention belt or a hernia support belt, is an accessory used to either prevent or support a parastomal hernia. Hernia belts also provide support for a hernia to allow for better appliance management. Hernia belts can often allow an ostomate to get back into exercising with heavy weights, play sports, or do heavy lifting at home or work. Hernia belts can be used to minimize the chance of developing a parastomal hernia. If you already have a parastomal hernia, a hernia support belt may help to prevent it from getting worse. Hernia belts will have a hole that you put your appliance through. The hole is surrounded by a stiff material that???s designed to keep pressure around your stoma. A parastomal hernia is a type of hernia that???s common among ostomates. So common, in fact, that up to nearly 50% of ostomates may develop a hernia at some point. It???s important that anyone who has a parastomal hernia be in contact with their stoma nurse or surgeon to make sure that it doesn???t become larger. Sometimes, surgical correction is required (or desired), while at other times a hernia support beltwill be used. Stealth Belt: You were Measured for a Stealth Belt Type A Custom Hernia Belt. Use the Work sheet with measurements to order Go online to order the belt. [email or web address] Coloplast Hernia Belt You need to Order the Coloplast Hernia belt through your current Ostomy supplier. Order the Coloplast Hernia Support Belt Size 2XL and order # [id number] When you receive your Coloplast hernia belt try it on to make sure it fits. Then return to clinic to have cut to fit you/your appliance. Applying the Hernia Belt: Always apply the belt while you are lying down with the hernia reduced. Center the opening around the pouch and feed the bottom of your appliance through the hole in the belt. Tighten the band appropriately - this should be fairly tight as it needs to apply pressure to your skin, but not so tight that???s it???s uncomfortable. Care of the Hernia Belt: You may wash your belt in the machine, but make sure to fasten the velcro and wash in a lingerie bag. Hang to dry so the elastic will last longer. General: Replace belt every 6 months (yearly if you have two and are alternating wear). Have another belt fitted if you gain/lose a lot of weight. If your body shape changes drastically, your current hernia belt may not fit 100%. Get it checked or refit yourself for a new one. Some belts are designed to offer better air flow. If you live in a hot climate, this might be something to ask about. If you change brands or the style of your appliance and the hole on the belt no longer fits snugly around the base (or flange), you may need to get a different belt. belt General: Change barrier 2x/week, no more than 7 days. Timing will vary from patient to patient depending on individual skin chemistry, dryness/oiliness of skin, amount of sweating, activity, weather and the amount of hair. It is a process of trial and error to determine how your skin and stoma respond to the barrier and how long you can wear a pouch. Try to schedule your pouch change on an empty stomach--if you have eaten or drunk anything, your stoma is more likely to be active during the pouch change, which makes it more difficult. If you must change when your stoma is active, eating 3 marshmallows 20 minutes before will help to slow it down enough to get the new pouch on. This only works for patients with ileostomies and colostomies DO NOT use paste, tape or paper towels to patch your pouch if it starts leaking. Your skin will get more irritated and sore the longer stool or urine sits on your skin. If the pouch leaks, you MUSTchange it ALEXEY. You must remove ALL old adhesive residue or paste from your skin before applying the new pouch so that it will stick properly. If you use adhesive remover, make sure to remove all the residue from your skin. DO NOT use baby wipes, adult wipes or soaps with moisturizers around your stoma. Your pouch will NOT stick! If you are not getting at least 3 days wear time from your pouch, please let us know. You may need a small change in your routine or a different product. Gaining or losing weight will affect the way your pouch fits. Remember to bring an extra pouch (or two) and supplies to apply it whenever you leave the house. Some people like to carry a change of clothes with them until they are more confident in their pouching system and ability to manage their ostomy. If you are travelling, take double the amount of supplies that you think you will need. It is much easier to bring home supplies that you did not use than to try to find a supplier in a location outside of your home city. Make sure you take your supplies in your carry on baggage if you are flying. Call Ostomy Clinic if you experience: 1. Red, burning or itching skin around your stoma for three days or more or other skin complications. 2. Changes in the appearance of the stoma. 3. Change in stoma output. Note: Call your doctor if you experience or go to the ER: 1. A change in color of your stoma from moist pink or red to brown, purple or black. It is NOT NORMAL for your stoma is be dry, brown/yellow, purple or black. 2. A large amount of bleeding from your stoma. 3. If there is blood on your stoma and the skin surrounding the stoma. 4. An unusual bulge, hump or lump around your stoma. 5. Abdominal pain. 6. Frequent or continuous nausea and vomiting. 7. Severe diarrhea - especially over 1200 ml in 24 hours. You may also experience signs of dehydration with diarrhea: dark colored stephen to dark yellow concentrated urine along with vertigo, dizziness, fast heart rate, shortness of breath, dry mouth, loose skin turgor. 8. Chills, fever over 100.4 9. bloody urine, cloudy urine, back pain or abdominal pain. Pain Control: Continue your home regimen. Call the prescribing physician for any changes in your medications or for refills. General Care No smoking Eat enough lean protein and calories to aid in healing Reposition frequently Infection Control Call the Wound Center at [phone] if any of the following occur: Temperature of 101 degrees Farenheit or higher for 24 hours. Increase in drainage from wound. Wound becomes red or swollen. If you develop any problems after normal business hours, contact your physician or report directly to the Emergency Room. Smoking Exposure [facility] encourages all patients to decrease risks associated with smoking and second hand smoke exposure. If you smoke you are advised to quit. Ask your health care provider for advice if you need assistance to stop smoking. Avoid second-hand smoke exposure and do not let people smoke in your home. Please call [phone], our pulmonary rehabilitation department, to learn more about options to reduce your risks. If you experience any complications or have concerns, please contact the [facility] at [phone]. If after normal business hours, please contact your physician through their emergency telephone exchange or report to the Emergency Department. Below is a list of the top national suppliers that work with the most ostomy brands and deal with most insurances. They ship directly to your door and most of them ship within 2 days of processing anorder. They set you up to ship products every month or every 3 months and will call to remind you when it???s time to order. If you???re calling to place an order for the first time have your insurance card ready along with the name and number of your doctor and the product numbers of what you???reordering. It will make the process go a lot smoother. Everybody on the list works with Medicare. [facility] [facility] Patient Care Solutions [employer]i [employer] [facility] Medical Comfort Medical Medline [facility] [address] [place] [address] [facility] [phone] If you don???t have insurance here are the top 3 mayes dealers with the most affordable prices and variety of products online that ship directly to you. Even if you have insurance it???s a great idea to familiarize yourself with a mayes dealer you can go to if you???re having a rough month and know that you???re going to run out or you???re just going to be on vacation and need an extra box. It???snever a bad thing to have a backup stash. All will still require a prescription from your doctor except stom[employer].Homecare Homebase. If you simply don???t have the finances then you can apply for free products through a patient assistance program. Smiley, Coloplast and [employer] each have one. Smiley Consumer Assistance Program line 358-753-1092 (option 6). It is helpful if you are already enrolled in [employer] when you enroll. You can reach out to [employer] Ostomates [employer] (939-998-4816 or info@[employer]owPartpic[employer]..org) You can also try Standing Cloud which is a non profit organization that provides ostomy products for just the cost of shipping. [employer]em[employer].Homecare Homebase [employer].com Stomab[employer] ([facility] [place] [employer]) also maintains a limited supply of ostomy products which have been donated, and are available to people in need of low cost/no cost ostomy supplies. They may not have exactly what you prefer, but in many cases are able to help with at leastsomething comparable. The bus person is Latesha Laguna [phone] documented in this encounter Medications at Time of Discharge Medication Sig Dispensed Refills Start Date End Date vedolizumab (Entyvio) 300 mg Recon Soln Inject 300 mg by intravenous injection every 8 weeks. 04/12/2022 upadacitinib (RINVOQ ORAL) Take 45 mg by mouth daily. Will decrease to 30mg in Sep 2024 HYDROcodone-acetaminoph en (NORCO) 5-325 mg tabletIndications:Crohn 's disease of large intestine with other complication Take 1 Tablet by mouth every 4 hours as needed for Pain, Moderate. Max Daily Amount: 6 Tablets 30 Tablet 12/27/2022 hydrocortisone 100 mg/60 mL enema Insert 100 mg by rectum 1 time daily as needed. allopurinoL (ZYLOPRIM) 100 mg tablet Take 100 mg by mouth daily. 09/15/2022 ALPRAZolam (XANAX) 0.5 mg tablet TAKE 1 TABLET BY MOUTH DAILY NEEDED FOR ANXIETY 09/28/2022 colchicine (COLCRYS) 0.6 mg tablet 09/28/2022 ergocalciferol (VITAMIN D2) 50,000 unit capsule Take 1 cap PO monthly 02/02/20 folic acid (FOLVITE) 1 mg tablet Take 1 mg by mouth daily. 02/27/2021 documented as of this encounter Progress Notes * Kathleen Tran ANP - 07/18/2024 12:00 PM CDT Images from the original note were not included. [facility] Progress Note Date: 07/18/2024 Patient Name: Ranjit Peralta Patient Date of : 1980 Patient Age: 43 y.o. Patient Sex: male Diagnosis: Colostomy Crohn's disease Parastomal hernia Plan: Follow up: as needed Nutrition Hydration Moisturizing cream for dry skin Avoid shear stress and trauma Weight stable Exercise Supplies-DME Hernia belt Consider stealth belt with hernia support Consider ostomy armor Consider irrigation Follow up Dr. Baig - colorectal surgery Follow up Dr. De La Cruz - GI Follow up [facility] nurse SUBJECTIVE Chief Complaint: Ranjit Peralta is a 43 y.o. male who is seen at [facility] for ostomy care. History of Present Illness: Follow up ostomy care. With his who is a trained WOCN today. 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 Changing twice a week. No leakage. Flat 2 piece Coloplast convex click. Independent with changes. Less travel for work. Stealth belt. No hernia support. Discussed Stealth belt, NuHope and Coloplast belts. Plan to order Stealth belt with hernia support. Weight increased 20 pounds. Nutrition ok without added protein. Avoiding foods including nuts, lettuce due to strictures. Plan to begin Skyrizi. No fever. No chills. No other changes medically. Questions answered. Location: none Quality: none Severity: none Duration: none Timing: none Context: none Modifying Factors: none Associated Symptoms/Signs: none TOBACCO COUNSELING He is not a tobacco user. DATABASE Past Medical History: Diagnosis Date Autoimmune disease Crohn's disease Gout, unspecified Past Surgical History: Procedure Laterality Date HX COLONOSCOPY HX WISDOM TEETH EXTRACTION high school [place] LAPAROSCOPY SURG COLOSTOMY/SKN LVL CECOSTOMY N/A 12/24/2022 DIVERTING COLOSTOMY LAPAROSCOPIC performed by Giovanni Baig MD at [facility] OR [facility] [place] LAPS COLECTOMY PRTL W/RMVL TERMINAL ILEUM N/A 12/24/2022 ILEOCOLIC RESECTION LAPAROSCOPIC performed by Giovanni Baig MD at [facility] OR [facility] REPAIR ANAL FISTULA Current Outpatient Medications on File Prior to Encounter Medication Sig Dispense Refill vedolizumab (Entyvio) 300 mg Recon Soln Inject 300 mg by intravenous injection every 8 weeks. upadacitinib (RINVOQ ORAL) Take 45 mg by mouth daily. Will decrease to 30mg in Sep 2024 ergocalciferol (VITAMIN D2) 50,000 unit capsule Take 1 cap PO monthly HYDROcodone-acetaminophen (NORCO) 5-325 mg tablet Take 1 Tablet by mouth every 4 hours as needed for Pain, Moderate. Max Daily Amount: 6 Tablets 30 Tablet 0 hydrocortisone 100 mg/60 mL enema Insert 100 mg by rectum 1 time daily as needed. allopurinoL (ZYLOPRIM) 100 mg tablet Take 100 mg by mouth daily. ALPRAZolam (XANAX) 0.5 mg tablet TAKE 1 TABLET BY MOUTH DAILY NEEDED FOR ANXIETY colchicine (COLCRYS) 0.6 mg tablet folic acid (FOLVITE) 1 mg tablet Take 1 mg by mouth daily. No current facility-administered medications on file prior to encounter. Allergies Allergen Reactions Mercaptopurine Analogues (Thiopurines) Muscle Pain Severe gout like joint pain that starts within days of taking medicine Social History Tobacco Use Smoking status: Former Types: Cigarettes Smokeless tobacco: Never Substance Use Topics Alcohol use: Yes Alcohol/week: 5.0 standard drinks of alcohol Types: 5 Cans of beer per week Family History Problem Relation Name Age of Onset Diabetes Maternal Grandfather ADHD Son ROS Review of Systems Constitutional: fever, night sweats, or weight loss, obesity Skin: history of skin rashes, skin cancer, ulcers, breast cancer Eyes: double vision, blurred vision, pain, cataracts, glaucoma ENT: problems hearing, vertigo, tinnitus, drainage from ears, loss of balance, TMJ Respiratory: asthma, emphysema, chronic bronchitis, COPD, pneumothorax, pneumonia, pulmonary, sleepapnea, SOB Cardiovascular: chest pain, paroxysmal nocturnal dyspnea, orthopnea, palpitations, stents, murmur, heart surgery, coronary artery disease, hypertension, atrial fibrillation, congestive heart failure,mitral regurgitation, peripheral vascular disease, thromboembolism GI: dysphagia, nausea, vomiting, hematemesis, diarrhea, constipation, melena, hematochezia, jaundice, peptic ulcer disease, GERD, hepatitis, IBS, crohn's , colostomy : dysuria, nocturia, hematuria, urgency, frequency or hesitancy, infections, prostate, renal insufficiency Musculoskeletal: joint pain, muscular weakness, swelling, stiffness, joint replacement, arthritis Neurologic: stroke, TIA, amaurosis fugax, headache, neuropathy Psychiatric: Nervousness, anxiety, panic attacks, crying spells, depression, manic depression, schizophrenia, headaches Endocrine: Heat/cold intolerance, nervousness, polydipsia, polyphagia, thyroid, hyperlipidemia, diabetes mellitus, gout Heme/Lymph: anemia, bleeding tendency, easy bruising Allergic/Immuno: sinus problems, frequent infections, immunosuppression, scleroderma, rheumatoid arthritis (positives in bold) I have reviewed the patient's medical history including review of systems in detail and updated thecomputerized patient record. I have also evaluated and reviewed all pertinent laboratory tests and vascular studies for the visit today. EXAM Constitutional Vitals: 07/18/24 1222 BP: 123/83 Pulse: (!) 55 Temp: 97.8 ??F (36.6 ??C) well developed, well nourished, in no acute distress, and vitals reviewed, as above Eyes: conjunctiva clear, eyelids intact without apparent asymmetry, pupils normal size, symmetry and accommodate to light ENT: external ears and nose normal, hearing intact to voice changes, lips, teeth and gums appearance and motion normal, oropharynx including palates, mucosa and pharynx appear normal Neck: normal and symmetric, no thyromegaly or masses, no asymmetry, masses, or scars, no adenopathy, trachea midline and normal to palpitation and thyroid normal to palpation Respirations: respiratory effort is equal and symmetric on observation, clear to auscultation, no wheezes or rales, and unlabored breathing Cardiovascular: regular rate and rhythm, radial artery pulses intact Musculoskeletal: Normal motion without swelling and/or stiffness of upper extremities, normal motion without swelling of left lower extremity, normal motion without swelling of right lower extremity. Skin: Skin of the scalp, face, neck and upper extremities without ulcers or unstable areas. Abdomensoft non tender. Colostomy left lower quadrant. Stoma pink, moist, brooked. Peristomal skin intact without ulcers. Dermatitis in pattern of the ring present. Parastomal hernia. Trophic changes nails. Extremities: normal appearing left upper extremity without swelling and/or ulcers, normal appearingright upper extremity without swelling and/or ulcers. Normal appearing left lower extremity withoutswelling or ulcers. Normal appearing right lower extremity without swelling or ulcers. Neuro: cranial nerves intact, sensation intact Psych: judgement appears intact, oriented to place, time and person, good recall of recent and remote memory, acting appropriately Complicating Factors: male gender, biologics Obvious Signs of Infection: none Necrotic, Devitalized / Non-Viable Tissue: none MEASUREMENTS: ASSESSMENT AND PLAN Active Problems: * No active hospital problems. * Short Term Treatment Goals (4 weeks): pouching without leakage, supplies, nutrition stabilized Short Term Treatment Goals have been met Detention Treatment Goals (12 weeks): independent with ostomy care, peristomal skin intact, consider support products for activities . 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 If goal is not met, repeat appropriate testing if necessary and amend treatment plan as indicated. Plan: Follow up: as needed Nutrition Hydration Moisturizing cream for dry skin Avoid shear stress and trauma Weight stable Exercise Supplies-DME Hernia belt Consider stealth belt with hernia support Consider ostomy armor Consider irrigation Follow up Dr. Baig - colorectal surgery Follow up Dr. De La Cruz - GI Follow up [facility] nurse This medical record reflects the history of present illness as obtained by myself in discussion with the patient. Care during the described time interval was provided by me. I have personally examined the patient, have reviewed this patient's available data, including medical history, events of note, physical examination and test results, and have overseen the activities of other members of the care team under my direct supervision. Counseling and/or coordination of care regarding wounds and treatments accounted for > 50% of today's total visit time which was 30 minutes. TODD Lamb documented in this encounter Miscellaneous Notes * Care Plan - Vanessa Caldwell RN - 07/18/2024 12:00 PM CDT Images from the original note were not included. Patient Name: Ranjit Peralta Date of : 1980 Today's Date: 07/18/2024 Procedure: Laparoscopic end sigmoid diverting colostomy and ileocolic resection Date of surgery: 12-24-22 Surgeon: Irasema Pt returns to [facility] for follow up ostomy care 1.5 years after ostomy surgery. Pt here accompanied by his , Anju. Pt ambulated independently. Pt has a colostomy related to Crohn's. Photos and measurements taken today. Reports feeling Good Diet: Regular, avoids nuts Appetite: Good, pt has gain 20lbs since last visit in February 2023 Activity: Active. Going out, swimming Current pouch / accessories: Coloplast 2pc Light Convex Pre-cut 1 11/10 Barrier #Pre cut 1 11/10 #40542 Pouch #23287 Coloplast Protective Seal #97204 [place]ilon No Sting Barrier Film [place] #5616 Wipes #2346 Stealth belt [place] adhesive when skin is red and moist Frequency of pouch change: every 4 days; no leaks Pt is now independent with pouch changes. will help at times if she is home Stoma is located in LLQ of abdomen Stoma shape: round Mucocutaneous junction appearance: intact Peristomal plane assessment: firm, round, herniated Peristomal skin: intact; Pt as redness directly around the stoma, most likely related to pressure from hernia Stoma height: Flush/small protrusion <1cm Stoma size today: 1 1/2 Round when standing and hernia is protruded which is the same as pt's pre-cut barrier Lumen location: central Perceived issues: Pt here for a check up. Wants to ensure he is in the correct appliance, cutting to the correct size, hernia and hernia belt. Received a sample of the Coloplast Flex OSTOMY assessment: Colostomy 12/24/22 1035 descending/sigmoid colostomy (Active) Stoma Appearance red;moist;protruding above skin level;nenana appearance 07/18/24 1222 Peristomal Skin intact w/o breakdown 07/18/24 1222 Appliance 2-piece;no leakage 07/18/24 1222 Accessories/Skin Care skin barrier ring;cleansed w/ soap and water;appliance belt 07/18/24 1222 Stoma Function stool 07/18/24 1222 Stool Color-Colostomy brown 07/18/24 1222 Stool Consistency-Colostomy soft 07/18/24 1222 Tolerance no signs/symptoms of discomfort 07/18/24 1222 Pt seen by Kathleen Tran DNP. Discussed diet, stoma and peristomal appearance, pouch procedure, and ostomy care. Pt was measured for Type A Custom Hernia Stealth Belt. Work sheet with measurements filled out and instructed pt to order online from [employer] directly. Pt was also measured for the Coloplast Hernia Support Belt size 2XL # 30828. Pt will most likely use the stealth belt. Order numbers and instructions given to order through ostomy supplier and to return to clinic to cut to fit. Changes made to pouch change procedure. Changed to the Coloplast Flex and changed the ring to the 19/06 . Instructed pt not to stretch the ring and he may put ring on the skin or on the barrier. Ostomy Supplies: Coloplast 2pc Flex Convex Pre-cut 1 / Barrier Pre cut 1 11/08 #66055 Pouch Drainable #38680 Closed ed Pouch: #33086 Coloplast Protective Seal 1 01/12 #56778 Adhesive Remover Cut your barrier to the proper size/shape. 1 / today. Or use Pre-cut if able. Change 2x/week Supplies are ordered by pt Supply provider: Pily garrett Pt will RTC as needed. Education provided on the above plan and patient verbalized understanding. Any changes in pouch procedure included in AVS. documented in this encounter Plan of Treatment Upcoming Encounters Date Type Department Care Team (Late st Contact Info) Description 01/14/2025 12:40 PM CDT Office Visit [facility] Gastroenterology [facility] [id number] [place] [address] [address] [address] [place] [address] [facility] [address] [place] [address] documented as of this encounter Visit Diagnoses Not on filedocumented in this encounter
--- OUTSIDE RECORDS SUMMARY | 2024-11-11 19:22 | XMS_ITS | Encounter Summary ---
Author Organization [facility] Address [address] [place] [address] Care Team Providers Care Liquor Inspector Name Role Phone Unavailable Primary Care Provider Unavailabl e Encounter Details Date Type Department Care Team (Late Contact Info) Description 03/22/2023 Abstract [facility] Surgical Spec [place] [address] [facility] [address] [place] [address] Madhavi León, RN Social History Tobacco Use Types Packs/Day Years Used Date Smoking Tobacco: Former Cigarettes Smokeless Tobacco: Never Alcohol Use Standard Drinks/Week Comments Yes 5 (1 standard drink = 0.6 oz pur e alcohol) Sex and Gender Information Value Date Recorded Sex Assigned at Not on file Gender Identity Not on file Sexual Orientation Not on file COVID-19 Exposure Response Date Recorded In the last 10 days, have yo u been in contact with someone who was confirmed or suspected to have Coronavirus/COVID-19? No / Unsure 02/28/2023 2:30 PM CDT documented as of this encounter Plan of Treatment Upcoming Encounters Date Type Department Care Team (Late st Contact Info) Description 01/14/2025 12:40 PM CDT Office Visit [facility] Gastroenterology [facility] [address] [facility] [address] [place] [phone] [place] [address] [facility] [address] [place] [address] documented as of this encounter Visit Diagnoses Not on filedocumented in this encounter
--- OUTSIDE RECORDS SUMMARY | 2024-11-11 19:22 | XMS_ITS | Encounter Summary ---
Author Organization [facility] Address [address] [place] [address] Care Team Providers Care Supervisor Bonding Name Role Phone Unavailable Primary Care Provider Unavailabl e Encounter Details Date Type Department Care Team (Late st Contact Info) Description 07/31/2024 External Device Data ST[place] ABSTRACTION Provider, Abstract NO ADDRESS ON FILE Social History Tobacco Use Types Packs/Day Years [...] Description 01/14/2025 12:40 PM CDT Office Visit [facility] Gastroenterology [facility] [address] [place] [address] [address] [address] [place] [address] [facility] [address] [phone] documented as of this encounter Visit Diagnoses Not on filedocumented in this encounter
--- OUTSIDE RECORDS SUMMARY | 2024-11-11 19:22 | XMS_ITS | Encounter Summary ---
Author Organization [facility] Address [address] [place] [address] Care Team Providers Care Mainframe Analyst Name Role Phone Unavailable Primary Care Provider Unavailabl e Encounter Details Date Type Department Care Team (Late st Contact Info) Description 02/07/2024 External Device Data STL ABSTRACTION Provider, Abstract [...] Description 01/14/2025 12:40 PM CDT Office Visit [facility] Gastroenterology [facility] [id number] [place] [address] [address] [phone] [place] [address] [facility] [address] [phone] documented as of this encounter Visit Diagnoses Not on filedocumented in this encounter
--- OUTSIDE RECORDS SUMMARY | 2024-11-11 19:22 | XMS_ITS | Encounter Summary ---
Author Organization [facility] Address [address] [place] [address] Care Team Providers Care Lead Javascript Developer Name Role Phone Unavailable Primary Care Provider Unavailabl e Encounter Details Date Type Department Care Team (Late Contact Info) Description 09/06/2023 Abstract [facility] Surgical Spec [place] [address] [facility] [address] [place] [address] Clara Silveira RN [address] [facility] [address] [place] [address] Social History Tobacco Use Types Packs/Day Years [...] Description 01/14/2025 12:40 PM CDT Office Visit [facility] Gastroenterology [place] [address] [facility] [facility] [address] [place] [phone] [place] [address] [facility] [address] [place] [address] documented as of this encounter Visit Diagnoses Not on filedocumented in this encounter
--- OUTSIDE RECORDS SUMMARY | 2024-11-11 19:22 | XMS_ITS | Encounter Summary ---
Author Organization [facility] Address [address] [place] [address] Care Team Providers Care Roofing Layer Name Role Phone Unavailable Primary Care Provider Unavailabl e Encounter Details Date Type Department Care Team (Late Contact Info) Description 01/23/2024 Abstract [facility] Surgical Spec [place] [address] [facility] [address] [place] [address] Clara Silveira RN [address] [facility] [address] [place] [address] Social History Tobacco Use Types [...] Description 01/14/2025 12:40 PM CDT Office Visit [facility] Gastroenterology [place] [address] [facility] [address] [place] [phone] [place] [address] [facility] [address] [place] [address] documented as of this encounter Visit Diagnoses Not on filedocumented in this encounter
--- OUTSIDE RECORDS SUMMARY | 2024-11-11 19:22 | XMS_ITS | Encounter Summary ---
Author Organization [facility] Address [address] [place] [address] Care Team Providers Care Top Inventory Control Executive Name Role Phone Unavailable Primary Care Provider Unavailabl e Encounter Details Date Type Department Care Team (Late Contact Info) Description 02/04/2023 Abstract [facility] Surgical Spec [place] [address] [facility] [address] [place] [address] Clara Silveira RN [address] [facility] [address] [place] [address] Social History Tobacco Use Types [...] suspected to have Coronavirus/COVID-19? No / Unsure 02/02/2023 1:39 PM CDT documented as of this encounter Plan of Treatment Upcoming Encounters Date Type Department Care Team (Late st Contact Info) Description 01/14/2025 12:40 PM CDT Office Visit [facility] Gastroenterology [place] [address] [facility] [address] [place] [address] [place] [address] [address] documented as of this encounter Visit Diagnoses Not on filedocumented in this encounter
--- OUTSIDE RECORDS SUMMARY | 2024-11-11 19:22 | XMS_ITS | Encounter Summary ---
Author Organization [facility] Address [address] Key: Epic Prelude ADT [place] [address] Care Team Providers Care Geothermal Powerplant Supervisor Name Role Phone Unavailable Primary Care Provider Unavailabl e Encounter Details Date Type Department Care Team (Latest Contact Info) Description 02/28/2023 Travel Social History Tobacco Use Types Packs/Day [...] Description 01/14/2025 12:40 PM CDT Office Visit [facility] Gastroenterology [place] [address] [facility] [address] [phone] [place] [address] [facility] [address] [place] [address] documented as of this encounter Visit Diagnoses Not on filedocumented in this encounter
--- OUTSIDE RECORDS SUMMARY | 2024-11-11 19:22 | XMS_ITS | Clinical Summary ---
Author Organization Unknown Care Team Providers Care Sales Recruitment Specialist Name Role Phone AIDEN GARCIAFERNANDOCALLIE, ESTEFANIA Unavailable U nellie CUADRA RN, CARMELO Unavailable Unavailabl e [employer] MANAGER [employer]UDENT [employer], EJ Unavailable Unavailable Payers Payer Name Policy Type Policy Number Effective Date Expira tion Date [employer].AUTH [id number] Problems Condition Name Condition Details Condition Category Status Onset Date Resolution Date Last Treatment Date Treating Clinician Comments ENCNTR FOR SURGICAL AFTCR FOLLOWING SURGERY ON THE DGSTV SYS Active 12-28 00:00: 00 ENCOUNTER FOR ATTENTION TO COLOSTOMY Active 12-28 00:00: 00 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 Ordering Clinician Indication Dosage Frequency Signature (SIG) Comments Components prednisone 20 mg tablet -14 00:00: 00 12-28 00:00 :00 No [id number] Per instruc tions TWICE DAILY Per instructio ns TWICE DAILY (route: oral) Med Classific ation: Endocrine metronidazo le 500 mg tablet 2-13 00:00: 00 12-28 00:00 :00 No [id number] Per instruc tions Per instructio ns (route: oral) Med Classific ation: Anti-Infe ctive Agents folic acid 1 mg tablet 2- 00:00: 00 Yes [id number] HEALTHY RED BLOOD CELLS 1 tablet DAILY 1 tablet DAILY (route: oral) Med Classific ation: Electroly te Balance-N utritiona l Products colchicine 0.6 mg tablet 2- 00:00: 00 Yes [id number] GOUT FLARE UP 1 tablet DAILY 1 tablet DAILY (route: oral) Med Classific ation: Gout and Hyperuric emia Therapy alprazolam 0.5 mg tablet 2- 00:00: 00 Yes [id number] ANXIETY 1 tablet DAILY 1 tablet DAILY (route: oral) Med Classific ation: Central Nervous System Agents allopurinol 100 mg tablet 04-12 00:00: 00 Yes [id number] GOUT 1 tablet DAILY 1 tablet DAILY (route: oral) Med Classific ation: Gout and Hyperuric emia Therapy Entyvio 300 mg intravenous solution 04-12 00:00: 00 Yes [id number] CHRON'S DISEASE 300 mg DIRECTED 300 mg DIRECTED (route: intravenou s) Med Classific ation: Gastroint estinal Therapy Agents Vitamin D2 1,250 mcg (50,000 unit) capsule 8- 00:00: 00 Yes [id number] SUPPLEMENT 1 capsule MONTHLY 1 capsule MONTHLY (route: oral) Med Classific ation: Electroly te Balance-N utritiona l Products hydrocodone 5 mg-acetamin ophen 325 mg tablet 2- 00:00: 00 Yes [id number] PAIN 1 tablet EVERY 4 HOURS 1 tablet EVERY 4 HOURS (route: oral) Med Classific ation: Analgesic , Anti-infl ammatory or Antipyret ic Immunizations Ordered Immunization Name Filled Immunization Name Date Status Comments Refusal Reason BOOSTER -COVID-19 VACCINE, COVID-19 VACCINE 2020-12-08 00:00:00 Vital Signs Vital Name Observation Time Observation Value Commen ts Temperature 2023-01-12 10:44:00.000 97.2 [degF] Temperature 2023-01-06 13:30:00.000 97.1 [degF] Temperature 2023-01-04 14:59:00.000 98.7 [degF] Temperature 2022-12-31 12:11:00.000 98.8 [degF] Temperature 2022-12-28 10:33:00.000 97.7 [degF] BMI (%) 2022-12-28 10:33:00.000 29 kg/m2 Height 2022-12-28 10:33:00.000 75 [in_us] Pulse 2023-01-12 10:44:00.000 70 /min Pulse 2023-01-06 13:30:00.000 60 /min Pulse 2023-01-04 14:59:00.000 68 /min Pulse 2022-12-31 12:11:00.000 63 /min Pulse 2022-12-28 10:33:00.000 74 /min O2 Saturation (%) 2023-01-12 10:45:00.000 97 % O2 Saturation (%) 2023-01-06 13:30:00.000 98 % O2 Saturation (%) 2023-01-04 14:59:00.000 96 % O2 Saturation (%) 2022-12-31 12:11:00.000 96 % Respirations 2023-01-12 10:44:00.000 18 /min Respirations 2023-01-06 13:30:00.000 18 /min Respirations 2023-01-04 14:59:00.000 16 /min Respirations 2022-12-31 12:11:00.000 17 /min Respirations 2022-12-28 10:33:00.000 18 /min Weight (lbs) 2022-12-28 10:33:00.000 234 [lb_av] Systolic Blood Pressure 2023-01-12 10:44:00.000 134 mm [Hg] Systolic Blood Pressure 2023-01-06 13:30:00.000 136 mm [Hg] Systolic Blood Pressure 2023-01-04 14:59:00.000 124 mm [Hg] Systolic Blood Pressure 2022-12-31 12:11:00.000 136 mm [Hg] Systolic Blood Pressure 2022-12-28 10:33:00.000 124 mm [Hg] Diastolic Blood Pressure 2023-01-12 10:44:00.000 70 mm [Hg] Diastolic Blood Pressure 2023-01-06 13:30:00.000 78 mm [Hg] Diastolic Blood Pressure 2023-01-04 14:59:00.000 76 mm [Hg] Diastolic Blood Pressure 2022-12-31 12:11:00.000 78 mm [Hg] Diastolic Blood Pressure 2022-12-28 10:33:00.000 80 mm [Hg] Plan of Treatment Planned Activity Planned Date Details Comments Future Scheduled Test SKILLED NU RSE TO ASSESS, EVALUATE, AND DEVELOP AN INDIVIDUALIZED PLAN OF CARE. AGENCY MAY ACCEPT ORDERS FROM CONSULTING PHYSICIANS. SN TO OBSERVE/ASSESS RISK FOR FALLS AND INSTRUCT IN FALL PREVENTION, HOME SAFETY, MEDICATION MANAGEMENT, INFECTION PREVENTION, AND NUTRITION MANAGEMENT. SN MAY PERFORM O2 SATURATION LEVEL TO ASSESS PATIENT, WITH NOTIFICATION TO THE PHYSICIAN IF SATURATION IS 90% IN THE ABSENCE OF MORE SPECIFIC PARAMETERS FROM THE PHYSICIAN. AGENCY MAY PERFORM A RESUMPTION OF CARE VISIT FOLLOWING ANY HOSPITAL ADMISSION. SKILLED NURSE TO ASSESS/EVALUATE CO-MORBID CONDITIONS AND ANY NEW CONDITIONS THAT PRESENT THEMSELVES DURING THIS EPISODE TO IDENTIFY CHANGES AND INTERVENE TO MINIMIZE COMPLICATIONS. [code = SKILLED NURSE TO ASSESS, EVALUATE, AND DEVELOP AN INDIVIDUALIZED PLAN OF CARE. AGENCY MAY ACCEPT ORDERS FROM CONSULTING PHYSICIANS. SN TO OBSERVE/ASSESS RISK FOR FALLS AND INSTRUCT IN FALL PREVENTION, HOME SAFETY, MEDICATION MANAGEMENT, INFECTION PREVENTION, AND NUTRITION MANAGEMENT. SN MAY PERFORM O2 SATURATION LEVEL TO ASSESS PATIENT, WITH NOTIFICATION TO THE PHYSICIAN IF SATURATION IS 90% IN THE ABSENCE OF MORE SPECIFIC PARAMETERS FROM THE PHYSICIAN. AGENCY MAY PERFORM A RESUMPTION OF CARE VISIT FOLLOWING ANY HOSPITAL ADMISSION. SKILLED NURSE TO ASSESS/EVALUATE CO-MORBID CONDITIONS AND ANY NEW CONDITIONS THAT PRESENT THEMSELVES DURING THIS EPISODE TO IDENTIFY CHANGES AND INTERVENE TO MINIMIZE COMPLICATIONS.] Future Scheduled Test MEDICATION MANAGEMENT; SKILLED NURSE TO REVIEW MEDICATIONS FOR INTERACTIONS, EFFECTIVENESS OF DRUG THERAPY, AND SIGNS/SYMPTOMS OF ADVERSE REACTIONS. MAY INSTRUCT AND REINFORCE MEDICATION TEACHING RELATED TO THE USE OF MEDICATIONS, DOSAGE, FREQUENCY, PURPOSE, SIDE EFFECTS, AND TO REPORT COMPLICATIONS. [code = MEDICATION MANAGEMENT; SKILLED NURSE TO REVIEW MEDICATIONS FOR INTERACTIONS, EFFECTIVENESS OF DRUG THERAPY, AND SIGNS/SYMPTOMS OF ADVERSE REACTIONS. MAY INSTRUCT AND REINFORCE MEDICATION TEACHING RELATED TO THE USE OF MEDICATIONS, DOSAGE, FREQUENCY, PURPOSE, SIDE EFFECTS, AND TO REPORT COMPLICATIONS.] Future Scheduled Test RISK FOR H OSPITALIZATION; SKILLED NURSE TO INSTRUCT PATIENT/CAREGIVER ON RISK FOR HOSPITALIZATION/EMERGENCY ROOM VISITS, TEACH SIGNS AND SYMPTOMS THAT PUT PATIENT AT RISK, WHEN TO NOTIFY NURSE/PHYSICIAN OF COMPLICATIONS/DECLINE, AND WHEN TO CALL 911. [code = RISK FOR HOSPITALIZATION; SKILLED NURSE TO INSTRUCT PATIENT/CAREGIVER ON RISK FOR HOSPITALIZATION/EMERGENCY ROOM VISITS, TEACH SIGNS AND SYMPTOMS THAT PUT PATIENT AT RISK, WHEN TO NOTIFY NURSE/PHYSICIAN OF COMPLICATIONS/DECLINE, AND WHEN TO CALL 911.] Future Scheduled Test PAIN MANAG EMENT; SKILLED NURSE TO OBSERVE, ASSESS, AND PROVIDE EDUCATION ON PAIN MANAGEMENT TECHNIQUES. [code = PAIN MANAGEMENT; SKILLED NURSE TO OBSERVE, ASSESS, AND PROVIDE EDUCATION ON PAIN MANAGEMENT TECHNIQUES.] Future Scheduled Test GASTROINTE STINAL MANAGEMENT; SKILLED NURSE TO ASSESS AND TEACH RELATED TO ALTERED GASTROINTESTINAL STATUS TO MINIMIZE COMPLICATIONS AND REDUCE HOSPITALIZATION. [code = GASTROINTESTINAL MANAGEMENT; SKILLED NURSE TO ASSESS AND TEACH RELATED TO ALTERED GASTROINTESTINAL STATUS TO MINIMIZE COMPLICATIONS AND REDUCE HOSPITALIZATION.] Future Scheduled Test COLOSTOMY/ ILEOSTOMY TEACHING/MANAGEMENT; SKILLED NURSE TO INSTRUCT PATIENT/CAREGIVER ON COLOSTOMY MANAGEMENT INCLUDING APPLIANCE TYPE, USAGE, AND STOMAL CARE. SKILLED NURSE MAY PERFORM OSTOMY APPLIANCE CHANGE AND STOMA CARE EACH VISIT NEEDED. [code = COLOSTOMY/ILEOSTOMY TEACHING/MANAGEMENT; SKILLED NURSE TO INSTRUCT PATIENT/CAREGIVER ON COLOSTOMY MANAGEMENT INCLUDING APPLIANCE TYPE, USAGE, AND STOMAL CARE. SKILLED NURSE MAY PERFORM OSTOMY APPLIANCE CHANGE AND STOMA CARE EACH VISIT NEEDED.] Future Scheduled Test FALL REDUC TION MANAGEMENT; NURSING TO PROVIDE SKILLED ASSESSMENT, EDUCATION, AND INTERVENTION TO IDENTIFY FALL RISK FACTORS SUCH MEDICATIONS THAT MAY CAUSE DIZZINESS, CHRONIC DISEASES, PSYCHOLOGICAL FACTORS, AND EMPOWER/EDUCATE PATIENT/CAREGIVER TO MINIMIZE FALL RISK. [code = FALL REDUCTION MANAGEMENT; NURSING TO PROVIDE SKILLED ASSESSMENT, EDUCATION, AND INTERVENTION TO IDENTIFY FALL RISK FACTORS SUCH MEDICATIONS THAT MAY CAUSE DIZZINESS, CHRONIC DISEASES, PSYCHOLOGICAL FACTORS, AND EMPOWER/EDUCATE PATIENT/CAREGIVER TO MINIMIZE FALL RISK.] Future Scheduled Test SKILLED NU RSE TO ASSESS AND MONITOR SURGICAL INCISION AT MID ABD, LEFT LOWER ABD, RIGHT LOWER ABD AND MID LOWER ABD THAT ARE ALL OPEN TO AIR. INSTRUCT PATIENT\CAREGIVER TO ASSESS AND MONITOR INCISION FOR SIGNS AND SYMPTOMS OF INFECTION\COMPLICATIONS TO REPORT TO NURSE OR MD. [code = SKILLED NURSE TO ASSESS AND MONITOR SURGICAL INCISION AT MID ABD, LEFT LOWER ABD, RIGHT LOWER ABD AND MID LOWER ABD THAT ARE ALL OPEN TO AIR. INSTRUCT PATIENT\CAREGIVER TO ASSESS AND MONITOR INCISION FOR SIGNS AND SYMPTOMS OF INFECTION\COMPLICATIONS TO REPORT TO NURSE OR MD. ] Goal 2023-01-12 Patient Goal - F OR A QUICK RECOVERY AND EVENTUALLY GET THE COLOSTOMY REVERSED. Goal Provider Goal - A PLAN OF CARE WILL BE ESTABLISHED THAT MEETS THE PATIENTS NEEDS. PATIENT WILL DEMONSTRATE OXYGEN SATURATION WITHIN NORMAL LIMITS OR PATIENTS OPTIMAL LEVEL ESTABLISHED BY THE PHYSICIAN THROUGHOUT CARE. CHANGES TO CO-MORBID CONDITIONS AND ANY NEW CONDITIONS WILL BE IDENTIFIED AND REPORTED TO THE PHYSICIAN. Goal Provider Goal - PATIENT/CAREGIVER TO VERBALIZE, AND CONSISTENTLY DEMONSTRATE EFFECTIVE, SAFE MANAGEMENT OF MEDICATION INCLUDING KNOWLEDGE OF EFFECTIVENESS, POTENTIAL SIDE EFFECTS AND DRUG REACTIONS AND WHEN TO CONTACT THE APPROPRIATE CARE PROVIDER. PATIENT/CAREGIVER WILL BE ABLE TO VERBALIZE UNDERSTANDING OF MEDICATION REGIMEN AND ACCURATELY TAKE MEDICATIONS PRESCRIBED WITHOUT ADVERSE EFFECTS BY . Goal Provider Goal - PATIENT/CAREGIVER WILL VERBALIZE UNDERSTANDING OF SIGNS AND SYMPTOMS THAT PUT THE PATIENT AT RISK FOR HOSPITALIZATION /EMERGENCY ROOM VISITS, WHEN TO NOTIFY NURSE/PHYSICIAN OF COMPLICATIONS/DECLINE AND WHEN TO CALL 911. Goal Provider Goal - PATIENT / CAREGIVER WILL VERBALIZE / DEMONSTRATE UNDERSTANDING OF PAIN CONTROL MEASURES BY . Goal Provider Goal - PATIENT / CAREGIVER WILL VERBALIZE/DEMONSTRATE UNDERSTANDING OF MEASURES TO MANAGE ALTERED GASTROINTESTINAL STATUS BY END OF EPISODE. Goal Provider Goal - PATIENT / CAREGIVER WILL BE ABLE TO VERBALIZE/DEMONSTRATE APPROPRIATE COLOSTOMY CARE MANAGEMENT BY . Goal Provider Goal - PATIENT/CAREGIVER ABLE TO IDENTIFY FALL RISK FACTORS AND IMPLEMENT STRATEGIES TO MINIMIZE FALL RISK. PATIENT/CAREGIVER WILL VERBALIZE/DEMONSTRATE AN ABILITY TO ADHERE TO FALL REDUCTION SELF MANAGEMENT AND LIFE-STYLE CHANGES AT DISCHARGE. PERSONAL GOAL(S) STATED BY PATIENT/CAREGIVER WILL BE MET BY 23. Goal Provider Goal - PATIENT / CAREGIVER WILL VERBALIZE/DEMONSTRATE ABILITY TO ASSESS AND MONITOR SURGICAL INCISION SITES AND REPORT SIGNS AND SYMPTOMS OF INFECTION\ COMPLICATIONS TO REPORT TO NURSE OR MD. WOUND STATUS WILL IMPROVE EVIDENCED BY A DECREASE IN SIZE, DRAINAGE, ABSENCE OF INFECTION, AND DECREASED PAIN BY 23. Reason for Visit INDEPENDENT IN THE COMMUNITY Encounters Start Date/Time End Date/Time Encounter Type Admission Type Attending [facility] Care Department Encounter ID Discharge Date Discharge Status Discharge Condition Discharge Reason Percent Goals Met 2022-12-28 00:00:00 2023-01-12 00:00:00 Outpatient NEW ADMISSION CARMELO CUADRA [facility] [id number] 2023-01-12 00:00:00 DISCHARGE TO HOME OR SELF CARE INDEPENDEN T IN THE COMMUNITY HH OR PAL- GOALS MET 100.00
--- OUTSIDE RECORDS SUMMARY | 2024-11-11 19:22 | XMS_ITS | Clinical Summary ---
Author Organization [facility] Address [address] [place] [address] Phone Care Team Providers Care Electrical Appliance Mechanic Name Role Phone Unavailable Primary Care Provider Unavailabl e Allergies Active Allergy Reactions Criticality Noted Date Comments Mercaptopurine Analogues (Thiopurines) Muscle Pain Medium 04/29/2020 Severe gout like joint pain that starts within days of taking medicine Medications Medication Sig Dispensed Refills Start Date End Date Status allopurinoL (ZYLOPRIM) 100 mg tablet Take 100 mg by mouth daily. 09/15/2022 Active ALPRAZolam (XANAX) 0.5 mg tablet TAKE 1 TABLET BY MOUTH DAILY NEEDED FOR ANXIETY 09/28/2022 Active colchicine (COLCRYS) 0.6 mg tablet 09/28/2022 Active ergocalciferol (VITAMIN D2) 50,000 unit capsule Take 1 cap PO monthly 02/01/2022 Active folic acid (FOLVITE) 1 mg tablet Take 1 mg by mouth daily. 02/27/2021 Active hydrocortisone 100 mg/60 mL enema Insert 100 mg by rectum 1 time daily as needed. Active HYDROcodone-acetamin ophen (NORCO) 5-325 mg tabletIndications:Cr ohn's disease of large intestine with other complication Take 1 Tablet by mouth every 4 hours as needed for Pain, Moderate. Max Daily Amount: 6 Tablets 30 Tablet 12/27/2022 Active vedolizumab (Entyvio) 300 mg Recon Soln Inject 300 mg by intravenous injection every 8 weeks. 04/12/2022 Active upadacitinib (RINVOQ ORAL) Take 45 mg by mouth daily. Will decrease to 30mg in Sep 2024 Active Active Problems Problem Noted Date Diagnosed Date Crohn's disease of both small and large intestin e 04/06/2013 Family History Medical History Relation Name Comments Diabetes Maternal Grandfather ADHD Son Relation Name Status Comments Maternal Grandfather Son Social History Tobacco Use Types Packs/Day Years Used Date Smoking Tobacco: Former Cigarettes Smokeless Tobacco: Never Tobacco Cessation:Counseling Given: Not Answered Alcohol Use Standard Drinks/Week Comments Yes 5 [...] 07/18/2024 12:22 PM C DT Respiratory Rate 16 02/02/2023 1:00 PM CDT Oxygen Saturation 95% 12/27/2022 12:37 PM BUSINESS OBJECTS ARCHITECT Inhaled Oxygen Concentration - - Weight 116.6 kg (257 lb) 07/18/2024 12:22 PM CDT Height 190.5 cm (6' 3 ) 12/24/2022 5:48 AM BUSINESS OBJECTS ARCHITECT Body Mass Index 32.12 12/24/2022 5:48 AM BUSINESS OBJECTS ARCHITECT Plan of Treatment Upcoming Encounters Date Type Department Care Team (Late st Contact Info) Description 01/14/2025 12:40 PM CDT Office Visit [facility] Gastroenterology [facility] [id number] [place] [address] [address] [place] [phone] [place] [address] [facility] [address] [place] [address] Health Maintenance Due Date Last Done Comments Pre-Diabetes and Diabetes Screening 1980 DTAP/TDAP/TD VACCINES (6 - Tdap) 1990 06/11/1985, 06/18/1981, 06/13/1980, Additional history exists HEPATITIS B VACCINES (1 of 3 - 19+ 3-dose series) 1998 INFLUENZA VACCINE (#1) 2024 0, 09/30/2014, 09/18/2013 PNEUMOCOCCAL VACCINE 0-64 YEARS Aged Out 10/06/2018, 09/16/2017 No longer eligibl e based on patient's age to complete this topic HPV VACCINES Aged Out No longer eligi ble based on patient's age to complete this topic Advance Directives For more information, please contact: [phone] * Full Code (Latest Code Status on File) Date Activated Date Inactivated Comments 12/24/2022 1:07 PM 12/27/2022 3:10 PM * Full Code Date Activated Date Inactivated Comments 12/24/2022 5:51 AM 12/24/2022 1:07 PM
--- OUTSIDE RECORDS SUMMARY | 2024-11-11 19:22 | XMS_ITS | Encounter Summary ---
Author Organization [facility] Address [address] [place] [address] Care Team Providers Care Toll Operator Name Role Phone Unavailable Primary Care Provider Unavailabl e Encounter Details Date Type Department Care Team (Late st Contact Info) Description 01/10/2024 External Device Data STL ABSTRACTION Provider, Abstract [...] Description 01/14/2025 12:40 PM CDT Office Visit [facility] Gastroenterology [facility] [id number] [place] [address] [address] [phone] [place] [address] [facility] [address] [place] [phone] documented as of this encounter Visit Diagnoses Not on filedocumented in this encounter
--- OUTSIDE RECORDS SUMMARY | 2024-11-11 19:22 | XMS_ITS | Encounter Summary ---
Author Organization [facility] Address [address] Key: Epic Prelude ADT [place] [id number] Care Team Providers Care Project Admin Name Role Phone Unavailable Primary Care Provider Unavailabl e Encounter Details Date Type Department Care Team (Latest Contact Info) Description 02/02/2023 Travel Social History Tobacco Use Types Packs/Day [...] [facility] Gastroenterology eLanne Mae [address] [facility] [address] [address] [phone] [place] [address] [facility] [address] [place] [address] documented as of this encounter Visit Diagnoses Not on filedocumented in this encounter
--- OUTSIDE RECORDS SUMMARY | 2024-11-11 19:22 | XMS_ITS | Encounter Summary ---
Author Organization [facility] Address [address] [place] [address] Care Team Providers Care Data Specialist Name Role Phone Unavailable Primary Care Provider Unavailabl e Encounter Details Date Type Department Care Team (Late st Contact Info) Description 02/21/2024 External Device Data STL ABSTRACTION Provider, Abstract [...] [facility] Gastroenterology [facility] [id number] [place] [address] [address] [phone] [place] [address] [facility] [address] [place] [phone] documented as of this encounter Visit Diagnoses Not on filedocumented in this encounter
--- OUTSIDE RECORDS SUMMARY | 2024-11-11 19:22 | XMS_ITS | Encounter Summary ---
Author Organization [facility] Address [address] [place] [address] Care Team Providers Care Sprinkler Helper Name Role Phone Unavailable Primary Care Provider Unavailmarquis e Encounter Details Date Type Department Care Team (Latest Contact Info) Description 02/28/2023 2:30 PM CDT - 02/28/2023 11:59 PM CDT Hospital Encounter [facility] [address] [place] [phone] Kathleen Tran, TODD [address] [place] [phone] Izabela Lowery RN Discharge Disposition: Home or Self Care Social History [...] PM CDT documented as of this encounter Discharge Instructions * Discharge Instructions* Izabela Lowery, SANDRA - 02/25/2023 12:42 PM CDT [facility] Discharge Instructions PLEASE NOTE Our hours may change due to inclement weather. Please call to confirm your appointment prior to driving in icy or snowy conditions. OSTOMY CARE INSTRUCTIONS Procedure: Laparoscopic end sigmoid diverting colostomy and ileocolic resection Date of surgery: 12-24-22 Surgeon: Irasema Changes made to pouch change procedure. Switched to convex and pt able to use pre-cut 11/10 Ostomy Supplies: Coloplast 2pc Light Convex Pre-cut 1 11/10 Barrier #Pre cut 1 11/10 #[id number] Pouch #[id number] Coloplast Protective Seal #91405 Cavilon No Sting Barrier Film [place] #0552 Wipes #3344 Cut your barrier to the proper size/shape. 1 11/10 today. Or use Pre-cut if able. Change 2x/week Supplies are ordered by pt Supply provider: Pily garrett Pouch change: Gather all needed supplies: Scissors (curved preferred but not essential) Pouch Paper towels Measuring guide Rings Plastic bag to dispose of trash Any other products such as stoma powder or skin prep if so instructed Remove old pouch. Try to schedule routine pouch change before eating or drinking. Clean your stoma and the surrounding skin with warm water and a paper towel. Assess stoma and surrounding skin for irritation. Measure stoma (if your stoma is more than 8 weeks old, you do not need to do this each time.) Hold the barrier up to your stoma to make sure you don't need to adjust the cut. Remove the backing paper from the barrier. Apply a ring to the barrier at the cut edge, rolling it into the cut edge to cover it. Set aside. Make sure your stoma and surrounding skin is still clean and dry. Treat skin irritation or ulcers as below if present. If there is no irritation/open areas, DO NOT use stoma powder or skin prep wipes or spray CARE OF PERISTOMAL IRRITATION 1) Clean area gently but thoroughly 2) Pat dry with clean paper towel or gauze. 3) Dust open/moist area with stoma powder. 4) Use a soft paper towel, gauze or tissue to brush away excess powder. (you may also use a biology department chair on low or an ear syringe to puff away the excess, if desired) You will feel like you are brushing it all away, but it stays where it is needed. 5) Dab gently with a no-sting skin prep wipe or spray with no sting skin barrier spray to seal or set the powder. The powder should look wet or like it has disappeared. 6) Allow to dry. When fully dry, you should see the powder reappear. 7) Repeat steps 3-6 if needed. Pull up on the skin above your stoma to round out the stoma and make it stand up at attention. While still holding the skin taut, use your other hand to center the opening over the stoma and press down. Press around the stoma to seal the ring to your skin very well, starting at the stoma and working your way outward. Hold firm pressure over the pouch for 5 minutes to warm it. (warming softens the barrier so it molds better to your skin and activates the adhesive). Close tail end of the pouch securely. (if your stoma is active, you may want to do this step sooner) Apply barrier extension strips or pink ostomy tape to the outer edges of the barrier and belt if needed. Gather up the trash in your plastic bag (a plastic shopping bag works well) and knot it to contain any odor or mess and put in the trash. Wash your hands. General: Colostomy and urostomy pts can generally change 1-2x/week. Timing will vary from patient to patientdepending on individual skin chemistry, dryness/oiliness of skin, amount of sweating, activity, weather and the amount of hair. It is a process of trial and error to determine how your skin and stoma respond to the barrier and how long you can wear a pouch. It is best to schedule a change before it leaks. Do not wear a pouch longer than 7 days. Try to schedule your pouch change on [...] will affect the way your pouch fits. Avoid lifting anything heavier than 7-10 lbs for the first 6-8 weeks after your surgery. Always measure the size of your stoma each time you change the pouch for the first 8 weeks after surgery, and monthly after that. Remember to bring an extra pouch (or two) and supplies to apply it whenever you leave the house. Luis (of Luis[employer] Law fame) loves ostomy patients! Some people like to carry a change [...] carry on baggage if you are flying. Pain Control: Continue your home regimen. Call the prescribing physician for any changes in your medications or for refills. General Care No smoking Eat enough lean protein and calories to aid in healing Reposition frequently Infection Control Call the Wound Center at [phone] if any of the following occur: Temperature of 101 degrees Farenheit or higher for 24 hours. Increase in drainage from wound. Wound becomes red or swollen. If you develop any problems after normal business hours, contact your physician or report directly to the Emergency Room. Smoking Exposure [facility] encourages all patients to decrease risks associated with smoking and second hand smoke exposure. If you smoke you are advised to quit. Ask your health care provider for advice if you need assistance to stop smoking. Avoid second-hand smoke exposure and do not let people smoke in your home. Please call [phone], our pulmonary rehabilitation department, to learn more about options to reduce your risks. If you experience any complications or have concerns, please contact the [facility] at [phone]. If after normal business hours, please contact your physician through their emergency telephone exchange or report to the Emergency Department. documented in this encounter Medications at Time of Discharge Medication Sig Dispensed Refills Start Date End Date vedolizumab (Entyvio) 300 mg Recon Soln Inject 300 mg by intravenous injection every 8 weeks. 04/12/2022 HYDROcodone-acetaminoph en (NORCO) 5-325 mg tabletIndications:Crohn 's [...] Progress Notes * Kathleen Tran ANP - 02/28/2023 2:30 PM CDT Images from the original note were not included. [facility] - [facility]PER[facility]OUND [facility] Progress Note Date: 03/02/2023 Patient Name: Ranjit Peralta Patient Date of : 1980 Patient Age: 42 y.o. Patient Sex: male Diagnosis: Colostomy Crohn's disease Plan: Follow up: as needed Nutrition Hydration Moisturizing cream for dry skin Avoid shear stress and trauma Weight stable Exercise Supplies-DME Consider stealth belt Consider ostomy armor Consider irrigation Follow up Dr. Baig - colorectal surgery Follow up Dr. Jones - GI Follow up [facility] nurse SUBJECTIVE Chief Complaint: Ranjit Peralta is a 42 y.o. male who is seen at [facility] for ostomy care. History of Present Illness: Follow up ostomy care. With his who is a trained WOCN today. 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 Still working to manage stoma output. Has discussed with Dr. Baig and Dr. Jones. Both recommend supplemental fiber. Discussion today on benefits of a whole foods diet minimizing fast food, processed foods and sugars. Understanding better the correlation of eating these foods and his output. Will begin traveling for work. Recommend he continue to monitor diet and eat balanced. Understands he cannot control his diet completely and that he will have fluctuations in output and function. Follows with Dr. Jones for Crohn's disease. Plan for scope in a few months. Changing twice a week. No leakage. Flat 2 piece Coloplast click. continues to change. Due to travel for work I recommend he become independent with changes. Travel with extra supplies. Stealth belt, consider ostomy armor, irrigation if able. Will need to discuss irrigation with GI prior to beginning due to Crohn's disease. No fever. No chills. No other changes medically. Questions answered. Location: none Quality: none Severity: none Duration: none Timing: none Context: none Modifying Factors: none Associated Symptoms/Signs: none TOBACCO COUNSELING He is not a tobacco user. DATABASE Past Medical History: Diagnosis Date Autoimmune disease Crohn's disease Gout, unspecified Past Surgical History: Procedure Laterality Date HX COLONOSCOPY HX WISDOM TEETH EXTRACTION high school IN LAPAROSCOPY SURG COLOSTOMY/SKN LVL CECOSTOMY N/A 12/24/2022 DIVERTING COLOSTOMY LAPAROSCOPIC performed by Giovanni Baig MD at [facility] OR [facility] IN LAPS COLECTOMY PRTL W/RMVL TERMINAL ILEUM N/A 12/24/2022 ILEOCOLIC RESECTION LAPAROSCOPIC performed by Giovanni Baig MD at [facility] OR [facility] REPAIR ANAL FISTULA Current Outpatient Medications on File Prior to Encounter Medication Sig Dispense Refill HYDROcodone-acetaminophen (NORCO) 5-325 mg tablet Take 1 [...] FOR ANXIETY colchicine (COLCRYS) 0.6 mg tablet ergocalciferol (VITAMIN D2) 50,000 unit capsule Take 1 cap PO monthly folic acid (FOLVITE) 1 mg tablet Take 1 mg by mouth daily. No current facility-administered medications on file prior to encounter. Allergies Allergen Reactions Mercaptopurine Analogues (Thiopurines) Muscle Pain Severe gout like joint pain that starts within days of taking medicine Social History Tobacco Use Smoking status: Former Types: Cigarettes Smokeless tobacco: Never Substance Use Topics Alcohol use: Yes Alcohol/week: 5.0 standard drinks Types: 5 Cans of beer per week [...] studies for the visit today. EXAM Constitutional There were no vitals filed for this visit. well developed, well nourished, in no acute [...] quadrant. Stoma pink, moist, brooked. Peristomal skin intact.Trophic changes nails. Extremities: normal appearing left upper [...] Short Term Treatment Goals have been met Nursing Home Treatment Goals (12 weeks): independent with ostomy care, peristomal skin intact, consider support products for activities . Excellent potential for terminal carman healing. If goal is not met, repeat appropriate testing if necessary and amend treatment plan as indicated. Plan: Follow up: as needed Nutrition Hydration Moisturizing cream for dry skin Avoid shear stress and trauma Weight stable Exercise Supplies-DME Consider stealth belt Consider ostomy armor Consider irrigation Follow up Dr. Baig - colorectal surgery Follow up Dr. Jones - GI Follow up [facility] nurse This medical record reflects the history [...] encounter Miscellaneous Notes * Care Plan - Izabela Lowery RN - 02/28/2023 2:30 PM CDT Images from the original note were not included. Patient Name: Ranjit Peralta Date of : 1980 Date\Time of Admission: 02/28/2023 2:30 PM Today's Date: 02/28/2023 Procedure: Laparoscopic end sigmoid diverting colostomy and ileocolic resection Date of surgery: 12-24-22 Surgeon: Irasema Pt [facility] to [facility] for follow up ostomy care 2 months after ostomy surgery. Pt accompaniedby , Kirsty. Pt ambulated independently. Pt has an end colostomy related to Crohn's. Pt has more question regarding his diet and ostomy. Photos and measurements taken today. Reports feeling Ok Diet: Regular diet Appetite: good Activity: up ad flory, working in basement Current pouch / accessories: Coloplast 2pc convex, Coloplast ring Frequency of pouch change: 2x/week Pouch changes done by patient and his . Stoma is located in LLQ of abdomen Stoma shape: round when pulled taut Mucocutaneous junction appearance: intact, no separation noted Peristomal plane assessment: soft, flat Peristomal skin: intact Stoma height: moderate protrusion 1-3cm Stoma size today: 1 1/4 inch round. Lumen location: toward the side at 6:00 Perceived issues:Continues to have questions about his diet and how foods affect where his output is formed or loose. Colostomy Colostomy 12/24/22 1035 descending/sigmoid colostomy (Active) Stoma Appearance red;moist;point hope ira appearance;protruding above skin level 02/28/23 1500 Peristomal Skin intact w/o breakdown 02/28/23 1500 Appliance 2-piece;no leakage;changed;per protocol 02/28/23 1500 Accessories/Skin Care convex insert;barrier substance over peristomal skin;cleansed w/ soap and water;skin barrier ring;skin sealant 02/28/23 1500 Stoma Function stool 02/28/23 1500 Stool Color-Colostomy brown 02/28/23 1500 Stool Consistency-Colostomy formed 02/28/23 1500 Tolerance no signs/symptoms of discomfort 02/28/23 1500 Kathleen TranASSISTANT TO THE PRESIDENT in to see patient and discuss diet,and pouching questions. No changes made to pouching procedure: Changes made to pouch change procedure. Switched to convex and pt able to use pre-cut 1 1/4 Ostomy Supplies: Coloplast 2pc Light Convex Pre-cut 1 1/ Barrier #Pre cut 1 1 #80601 Pouch #41683 Coloplast Protective Seal #98620 Cavilon No Sting Barrier Film [place] #3346 Wipes #3344 Cut your barrier to the proper size/shape. 1 1/4 today. Or use Pre-cut if able. Change 2x/week Supplies are ordered by pt Supply provider: Pily garrett Pt will RTC as needed. AVS sent with pt, time given for questions. Pt verbalizes understanding. Education provided on the above treatment plan and patient verbalized understanding. Any new treatments or changes in treatments included in AVS. documented in this encounter Plan of Treatment Upcoming Encounters Date Type Department Care Team (Late st Contact Info) Description 01/14/2025 12:40 PM CDT Office Visit [facility] Gastroenterology [facility] [id number] [place] [address] [address] [place] [address] [place] [address] [facility] [address] [place] [phone] documented as of this encounter Visit Diagnoses Not on filedocumented in this encounter
--- OUTSIDE RECORDS SUMMARY | 2024-11-11 19:22 | XMS_ITS | Encounter Summary ---
Author Organization [facility] Address [address] [place] [address] Care Team Providers Care Patent Clerk Name Role Phone Unavailable Primary Care Provider Unavailabl e Encounter Details Date Type Department Care Team (Late st Contact Info) Description 07/24/2024 External Device Data STL ABSTRACTION Provider, Abstract [...] Description 01/14/2025 12:40 PM CDT Office Visit [facility] Gastroenterology [facility] [id number] [place] [address] [address] [phone] [place] [address] [facility] [address] [place] [phone] documented as of this encounter Visit Diagnoses Not on filedocumented in this encounter
--- OUTSIDE RECORDS SUMMARY | 2024-11-11 19:22 | XMS_ITS | Encounter Summary ---
Author Organization [facility] Address [address] [place] [address] Care Team Providers Care Pin Machine Tender Name Role Phone Unavailable Primary Care Provider Unavailabl e Encounter Details Date Type Department Care Team (Late st Contact Info) Description 12/26/2023 External Device Data STL ABSTRACTION Provider, Abstract [...] Description 01/14/2025 12:40 PM CDT Office Visit [facility] Gastroenterology [facility] [id number] [place] [address] [address] [phone] [place] [address] [facility] [address] [place] [phone] documented as of this encounter Visit Diagnoses Not on filedocumented in this encounter
--- OUTSIDE RECORDS SUMMARY | 2024-11-11 19:22 | XMS_ITS | Encounter Summary ---
Author Organization [facility] Address [address] [place] [address] Care Team Providers Care Fisher Eel Name Role Phone Unavailable Primary Care Provider Unavailabl e Encounter Details Date Type Department Care Team (Late st Contact Info) Description 12/04/2023 External Device Data STL ABSTRACTION Provider, Abstract [...] Description 01/14/2025 12:40 PM CDT Office Visit [facility] Gastroenterology [facility] [id number] [place] [address] [address] [phone] [place] [address] [facility] [address] [place] [phone] documented as of this encounter Visit Diagnoses Not on filedocumented in this encounter
--- OUTSIDE RECORDS SUMMARY | 2024-11-11 19:22 | XMS_ITS | Encounter Summary ---
Author Organization [facility] Address [address] [place] [address] Care Team Providers Care Information Systems Technician Name Role Phone Unavailable Primary Care Provider Unavailabl e Reason for Visit * Reason Onset Date Comments decreased output colostomy 02/01/2023 Encounter Details Date Type Department Care Team (Late st Contact Info) Description 02/01/2023 Telephone [facility] Surgical Spec [place] [address] [facility] [address] [place] [address] Giovanni Baig MD [address] [facility] [address] [place] [address] decreased output colostomy Social History Tobacco Use Types Packs/Day Years [...] suspected to have Coronavirus/COVID-19? No / Unsure 01/11/2023 10:08 AM FLORICULTURIST documented as of this encounter Miscellaneous Notes * Telephone Encounter - Clara Silveira RN - 02/01/2023 9:31 AM CDT Complains of abdominal cramping and no output from colostomy this past Tuesday morning.He started having liquidy output Tuesday evening.Denies nausea and vomiting.States he had raisin bran over the weekend.Now on a soft diet.Having liquidy/pasty stools.Instructed to try one dose of miralax and to call me this afternoon on his condition.Patient verbalizes understanding. documented in this encounter Plan of Treatment Upcoming Encounters Date Type Department Care Team (Late st Contact Info) Description 01/14/2025 12:40 PM CDT Office Visit [facility] Gastroenterology [facility] [id number] [place] [address] [address] [phone] [place] [address] [facility] [address] [place] [address] documented as of this encounter Visit Diagnoses Not on filedocumented in this encounter
--- OUTSIDE RECORDS SUMMARY | 2024-11-11 19:22 | XMS_ITS | Encounter Summary ---
Author Organization [facility] Address [address] [place] [address] Care Team Providers Care Education Specialist Name Role Phone Unavailable Primary Care Provider Unavailmarquis e Encounter Details Date Type Department Care Team (Latest Contact Info) Description 02/02/2023 1:30 PM CDT - 02/02/2023 11:59 PM CDT Hospital Encounter [facility] [address] [place] [phone] Kathleen Tran, TODD [address] [place] [phone] Vanessa Caldwell, supervisor pumping station Disposition: Home or Self Care Social History [...] PM CDT documented as of this encounter Last Filed Vital Signs Vital Sign Reading Time Taken Comments Blood Pressure 133/86 02/02/2023 1:00 PM CDT Pulse 50 02/02/2023 1:00 PM CDT Temperature 36.7 ??C (98 ??F) 02/02/2023 1:00 PM CDT Respiratory Rate 16 02/02/2023 1:00 PM CDT Oxygen Saturation - - Inhaled Oxygen Concentration - - Weight 107.3 kg (236 lb 9.6 oz) 02/02/2023 1:00 PM CDT Height - - Body Mass Index 29.57 12/24/2022 5:48 AM HARDWARE SALES ASSISTANT documented in this encounter Discharge Instructions * Discharge Instructions* Vanessa Caldwell RN - 02/02/2023 7:48 AM CDT [facility] Discharge Instructions [phone] PLEASE NOTE Our hours may change due to inclement weather. Please call to confirm your appointment prior to driving in icy or snowy conditions. OSTOMY CARE INSTRUCTIONS Procedure: Laparoscopic end sigmoid diverting colostomy and ileocolic resection Date of surgery: 12-24-22 Surgeon: Irasema Ostomy Supplies: Coloplast 2pc Light Convex Pre-cut 1 11/10 Barrier #Pre cut 1 11/10 #05490 Pouch #50820 Coloplast Protective Seal #80790 Cavilon No Sting Barrier Film Enola #3346 Wipes #3344 Cut your barrier to the proper size/shape. 1 11/10 today. Or use Pre-cut if able. Change 2x/week Pouch Change Procedure: Gather all Supplies needed: Scissors (curved preferred but not essential) Paper towels Plastic bag to dispose of trash Ostomy supplies listed above Close tail end of the pouch securely. Remove the backing paper from the barrier. Apply a ring/protective seal (looks like a washer) to the barrier at the inner and outer edge of barrier, rolling it into the cut edge to meld it together. Set aside. Remove old pouch. Try to schedule routine pouch change before eating or drinking. Clean your stoma and the surrounding skin with warm water and a paper towel. May use soap that doesnot leave a residue like Dial or Ivory(no [...] it is needed. You may use a chairlift operator on low, if desired 5) Dab gently with a no-sting skin prep wipe or spray to seal or set the powder. 6) Allow to dry. Apply Skin Prep to skin around stoma until skin is sticky.(Optional) Pull up on the skin above your stoma to round out the stoma Apply barrier while still holding the skin [...] activates the adhesive). PRESSURE and WARMTH are the KEYS to getting a good SEAL Apply barrier extension strips or pink ostomy tape to the outer edges of the barrier and belt if needed. Gather up the trash in your plastic bag (a plastic shopping bag works well) and knot it to contain any odor or mess and put in the trash. Wash your hands. Metamucil Instructions: Mix 1 teaspoon of Metamucil with 4-6oz of liquid. Take every morning. My take up to 3 times a day if needed. If you let it sit too long it will thicken like pudding. Best to drink all at once. High Fiber Food Chart Category A (more than 7 grams per serving) FOOD AMOUNT TOTAL FIBER (grams) Avocado 1 medium 11.84 Black beans, cooked 1 cup 14.92 Bran cereal 1 cup 19.94 Broccoli, cooked 1 cup 10.97 Green peas, cooked 1 cup 8.84 Kale, cooked 1 cup 7.20 Kidney beans, cooked 1 cup 13.33 Lentils, cooked 1 cup 15.64 Farmer beans, cooked 1 cup 13.16 Dacoma beans, cooked 1 cup 11.65 Oats, dry 1 cup 12.00 [place] beans, cooked 1 cup 14.71 Split peas, cooked 1 cup 16.27 Raspberries 1 cup 8.34 Rice, brown, uncooked 1 cup 7.98 Soybeans, cooked 1 cup 7.62 General: Change barrier 2x/week, no more than [...] output. Note: Call your doctor if you experience: 1. A change in color of your [...] Infection Control Call the Wound Center at [phone] if any of the following occur: Temperature of 101 degrees Farenheit or higher for 24 hours. Increase in drainage from wound. Wound becomes red or swollen. If you develop any problems after normal business hours, contact your physician or report directly to the Emergency Room. Smoking Exposure [facility] encourages all patients to decrease risks associated with smoking and second hand smoke exposure. If you smoke you are advised to quit. Ask your health care provider for advice if you need assistance to stop smoking. Avoid second-hand smoke exposure and do not let people smoke in your home. Please call [phone], our pulmonary rehabilitation department, to learn more about options to reduce your risks. If you experience any complications or have concerns, please contact the [facility] at [phone]. If after normal business hours, please contact [...] on the list works with Medicare. [facility] [place] [facility] Medical [facility] Patient Care Solutions [facility] Medical Handi Medical [facility] Medical Comfort Medical Medline [facility] 180-Medical [facility] ([facility]) also maintains a limited supply of ostomy products which have been donated, and are available to people in need of low cost/no cost ostomy supplies. They may not have exactly what you prefer, but in many cases are able to help with at leastsomething comparable. The contact acid plant operator is Latesha Laguna [phone] documented in this encounter Medications at Time [...] Progress Notes * Kathleen Tran ANP - 02/02/2023 1:30 PM CDT Images from the original note were not included. [facility] - [facility] Progress Note Date: 02/02/2023 Patient Name: Ranjit Peralta Patient Date of : 1980 Patient Age: 42 y.o. Patient Sex: male Diagnosis: Crohn's disease Plan: Follow up: In 3 weeks Nutrition Hydration Moisturizing cream for dry skin Avoid shear stress and trauma Weight stable Exercise Supplies-DME Consider stealth belt Consider ostomy armor Consider irrigation Follow up Dr. Baig - colorectal surgery Follow up Dr. Jones - GI Follow up [facility] nurse SUBJECTIVE Chief Complaint: Ranjit Peralta is a 42 y.o. male who is seen at [facility] for ostomy care. History of Present Illness: Follow up ostomy care. With his who is a trained WOCN today. 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 Difficulty with diet and increasing fiber. Dr. Baig recommended Metamucil. Slowly increasing. Dunlap he had a blockage last week after eating raisinbran. Follows with Dr. Jones for Crohn's disease. Changing twice a week. Pancaking without leakage. Flat 2 piece Coloplast click. Stealth belt, consider ostomy armor, irrigation if able. Providedfiber foods list. No fever. No chills. No other changes medically. Questions answered. Location: none Quality: none Severity: none Duration: none Timing: none Context: none Modifying Factors: none Associated Symptoms/Signs: none TOBACCO COUNSELING He is not a tobacco user. DATABASE Past Medical History: Diagnosis Date Autoimmune disease Crohn's disease Gout, unspecified Past Surgical History: Procedure Laterality Date HX COLONOSCOPY HX WISDOM TEETH EXTRACTION [employer] school [place] LAPAROSCOPY SURG COLOSTOMY/SKN LVL CECOSTOMY N/A 12/24/2022 DIVERTING COLOSTOMY LAPAROSCOPIC performed by Giovanni Baig MD at [facility] [place] LAPS COLECTOMY PRTL W/RMVL TERMINAL ILEUM N/A 12/24/2022 ILEOCOLIC RESECTION LAPAROSCOPIC performed by Giovanni Baig MD at [facility] OR [facility] REPAIR ANAL FISTULA Current Outpatient Medications [...] for the visit today. EXAM Constitutional Vitals: 02/02/23 1300 BP: 133/86 Pulse: (!) 50 Resp: 16 Temp: 98 ??F (36.7 ??C) well developed, well nourished, in no [...] supplies, nutrition stabilized Short Term Treatment Goals will be reevaluated at next visit [facility] Treatment Goals (12 weeks): independent with ostomy care, peristomal skin intact, consider support products for activities . Excellent potential for residential healing. If goal is not met, repeat appropriate testing if necessary and amend treatment plan as indicated. Plan: Follow up: In 3 weeks Nutrition Hydration Moisturizing cream for dry skin Avoid shear stress and trauma Weight stable Exercise Supplies-DME Consider stealth belt Consider ostomy armor Consider irrigation Follow up Dr. Baig - colorectal surgery Follow up Dr. Jones - GI Follow up [facility] nurse This medical record reflects the history [...] of today's total visit time which was 45 minutes. TODD Lamb documented in this encounter Miscellaneous Notes * Care Plan - Vanessa Caldwell RN - 02/02/2023 1:30 PM CDT Images from the original note were not included. Patient Name: Ranjit Peralta Date of : 1980 Today's Date: 02/02/2023 Procedure: Laparoscopic end sigmoid diverting colostomy and ileocolic resection Date of surgery: 12-24-22 Surgeon: Irasema Pt returns to [facility]omy [facility] for follow up ostomy care 3 weeks after ostomy surgery. Pt accompanied by , Kirsty. Pt ambulated independently. Pt has an ileostomy related to Crohn's. Pt reporting he was having chaudhary caking. Pt/ called and was instructed to take metamucil(1TBLS). Pt started metamucil and began to have pain, cramping, possible blockage. Next day took warm bath andstayed in bed all day. Pt then began to pass stool. Photos and measurements taken today. Reports feeling Ok Diet: Tried to increase fiber Appetite: good Activity: up ad flory, working in basement Current pouch / accessories: Coloplast 2pc flat, Coloplast ring Frequency of pouch change: 2x/week Pouch changes done by . Pt not participating in ostomy care. Stoma is located in LLQ of abdomen Stoma shape: round when pulled taut Mucocutaneous junction appearance: intact, few sutures present, no separation noted Peristomal plane assessment: soft, flat Peristomal skin: intact Stoma height: moderate protrusion 1-3cm Stoma size today: 1 1/4 inch round. has been cutting to 1 1/4 x 1 1/8 Lumen location: toward the side at 6:00 Perceived issues: Diet OSTOMY assessment: Colostomy 12/24/22 1035 descending/sigmoid colostomy (Active) Stoma Appearance red;moist 02/02/23 1300 Peristomal Skin intact w/o breakdown 02/02/23 1300 Appliance 2-piece (Pancaking) 02/02/23 1300 Accessories/Skin Care skin barrier ring 02/02/23 1300 Stoma Function stool;flatus 02/02/23 1300 Stool Color-Colostomy brown 02/02/23 1300 Stool Consistency-Colostomy loose 02/02/23 1300 Tolerance no signs/symptoms of discomfort 02/02/23 1300 Pt seen by Kathleen Tran DNP. Discussed diet, stoma and peristomal appearance, pouch procedure, and ostomy care. Most of appointment time spent on discussing diet. Changes made to pouch change procedure. Switched to convex and pt able to use pre-cut 1 11/10 Ostomy Supplies: Coloplast 2pc Light Convex Pre-cut 1 11/10 Barrier #Pre cut 1 11/10 #89854 Pouch #45308 Coloplast Protective Seal #21619 Cavilon No Sting Barrier Film Enola #3346 Wipes #3344 Cut your barrier to the proper size/shape. 1 11/10 today. Or use Pre-cut if able. Change 2x/week Supplies are ordered by pt Supply provider: Pily garrett Pt will RTC in 1 month. Education provided on the above plan and patient verbalized understanding. Any changes in pouch procedure included in AVS. documented in this encounter Plan of Treatment Upcoming Encounters Date Type Department Care Team (Late st Contact Info) Description 01/14/2025 12:40 PM CDT Office Visit [facility] [place] [address] [facility] [address] [address] [place] [address] [facility] [address] [place] [address] documented as of this encounter Visit Diagnoses Not on filedocumented in this encounter
--- OUTSIDE RECORDS SUMMARY | 2024-11-11 19:22 | XMS_ITS | Encounter Summary ---
Author Organization [facility] Address [address] [place] [address] Care Team Providers Care Automatic Driller And Reamer Name Role Phone Unavailable Primary Care Provider Unavailabl e Encounter Details Date Type Department Care Team (Late Contact Info) Description 06/29/2023 Abstract [facility] Surgical Spec [place] [address] [facility] [address] [place] [address] Clara Silveira RN [address] [facility] [address] [place] [address] Social History Tobacco Use Types [...] Description 01/14/2025 12:40 PM CDT Office Visit [facility]enterology [address] [address] [facility] [address] [place] [phone] [place] [address] [facility] [address] [place] [address] documented as of this encounter Visit Diagnoses Not on filedocumented in this encounter
--- OUTSIDE RECORDS SUMMARY | 2024-11-11 19:22 | XMS_ITS | Encounter Summary ---
Author Organization [facility] Address [address] [place] [address] Care Team Providers Care Supervisor Tank Storage Name Role Phone Unavailable Primary Care Provider Unavailabl e Encounter Details Date Type Department Care Team (Late st Contact Info) Description 08/07/2024 External Device Data STL ABSTRACTION Provider, Abstract [...] Description 01/14/2025 12:40 PM CDT Office Visit [facility] Gastroenterology [facility] [id number] [place] [address] [address] [address] [place] [address] [facility] [address] [place] [phone] documented as of this encounter Visit Diagnoses Not on filedocumented in this encounter
--- OUTSIDE RECORDS SUMMARY | 2024-11-11 19:22 | XMS_ITS | Encounter Summary ---
Author Organization [facility] Address [address] [place] [address] Care Team Providers Care Abalone Sheller Name Role Phone Unavailable Primary Care Provider Unavailabl e Encounter Details Date Type Department Care Team (Late st Contact Info) Description 10/21/2023 External Device Data STL ABSTRACTION Provider, Abstract [...] Description 01/14/2025 12:40 PM CDT Office Visit [facility] Gastroenterology [facility] [id number] [place] [address] [address] [phone] [place] [address] [facility] [address] [place] [phone] documented as of this encounter Visit Diagnoses Not on filedocumented in this encounter
--- OUTSIDE RECORDS SUMMARY | 2024-11-11 19:22 | XMS_ITS | Encounter Summary ---
Author Organization [facility] Address [address] [place] [address] Care Team Providers Care Forest Patrolman Name Role Phone Unavailable Primary Care Provider Unavailabl e Encounter Details Date Type Department Care Team (Late st Contact Info) Description 12/07/2023 External Device Data STL ABSTRACTION Provider, Abstract [...] Description 01/14/2025 12:40 PM CDT Office Visit [facility] Gastroenterology [facility] [phone] [place] [address] [address] [phone] [place] [address] [facility] [address] [phone] documented as of this encounter Visit Diagnoses Not on filedocumented in this encounter
--- OUTSIDE RECORDS SUMMARY | 2024-11-11 19:22 | XMS_ITS | Encounter Summary ---
Author Organization [facility] Address [address] [place] [address] Care Team Providers Care Milk Route Deliverer Name Role Phone Unavailable Primary Care Provider [...] 12:40 PM CDT Office Visit [facility] Gastroenterology [facility] [address] [place] [address] [address] [phone] [place] [address] [facility] [address] [place] [phone] documented as of this encounter Visit Diagnoses Not on filedocumented in this encounter
--- OUTSIDE RECORDS SUMMARY | 2024-11-11 19:22 | XMS_ITS | Encounter Summary ---
Author Organization [facility] Address [address] [place] [address] Care Team Providers Care Freight Car Builder Name Role Phone Unavailable Primary Care Provider Unavailabl e Encounter Details Date Type Department Care Team (Late Contact Info) Description 08/03/2023 Abstract [facility] Surgical Spec [place] [address] [facility] [address] [place] [address] Clara Silveira RN [address] [facility] [address] [place] [address] Social History Tobacco Use Types [...] 12:40 PM CDT Office Visit [facility]astroenterology [place] [address] [facility] [address] [place] [phone] [place] [address] [facility] [address] [place] [address] documented as of this encounter Visit Diagnoses Not on filedocumented in this encounter
--- OUTSIDE RECORDS SUMMARY | 2024-11-11 19:23 | XMS_ITS | Encounter Summary ---
Author Organization [facility] Address [address] [facility] [address] Key: Epic Prelude [place]T [place] [address] Care Team Providers Care Ammunition And Explosives Handler Name Role Phone Unavailable Primary Care Provider Unavailabl e Encounter Details Date Type Department Care Team (Latest Contact Info) Description 11/30/2022 Travel Social History Tobacco Use Types Packs/Day [...] was confirmed or suspected to have Coronavirus/COVID-19? Unable to assess 11/30/2022 3:58 PM HUMAN PROJECTILE documented as of this encounter Plan of Treatment Upcoming Encounters Date Type Department Care Team (Late st Contact Info) Description 01/14/2025 12:40 PM CDT Office Visit [facility] [id number] [place] [address] [address] [phone] [place] [address] [facility] [address] [place] [address] documented as of this encounter Visit Diagnoses Not on filedocumented in this encounter
--- OUTSIDE RECORDS SUMMARY | 2024-11-11 19:23 | XMS_ITS | Encounter Summary ---
Author Organization [facility] Address [address] [place] [address] Care Team Providers Care Climbing Guide Name Role Phone Unavailable Primary Care Provider Unavailabl e Reason for Visit * Reason Comments Establish Care Encounter Details Date Type Department Care Team (Latest Contact Info) Description 10/14/2022 9:30 AM BENDING ROLL OPERATOR History & Physical [facility] [id number] [place] [address] Giovanni Baig MD [address] [place] [address] Crohn's disease of large intestine with other complication (Primary Dx); Crohn's disease of small intestine with intestinal obstruction Social History Tobacco Use Types Packs/Day Years Used Date Smoking Tobacco: Former Cigarettes Smokeless Tobacco: Never Tobacco Cessation:Counseling Given: No Alcohol Use Standard Drinks/Week Comments Yes 5 [...] suspected to have Coronavirus/COVID-19? No / Unsure 10/14/2022 9:24 AM BENDING ROLL OPERATOR documented as of this encounter Last Filed Vital Signs Vital Sign Reading Time Taken Comments Blood Pressure 124/82 10/14/2022 10:18 AM BENDING ROLL OPERATOR Pulse - - Temperature - - Respiratory Rate - - Oxygen Saturation - - Inhaled Oxygen Concentration - - Weight 108.9 kg (240 lb) 10/14/2022 10:18 AM BENDING ROLL OPERATOR Height 190.5 cm (6' 3 ) 10/14/2022 10:18 AM BENDING ROLL OPERATOR Body Mass Index 30 10/14/2022 10:18 AM BENDING ROLL OPERATOR documented in this encounter Progress Notes * Giovanni Baig MD - 10/14/2022 11:59 PM CST [facility] Patient: Ranjit Peralta / 41 y.o. / male : 1980 Date: 10/14/2022 CSN: [id number] Chief Complaint: Chief Complaint Patient presents with Establish Care History of Present Illness: Ranjit Peralta is a 41 y.o. male that is seen in consultation at the request of Dr. Jones for Crohn's proctitis. In brief, patient is a 41-year-old male who has a longstanding history of Crohn's disease. He has been tried on multiple medications. His major problem is that he has severe proctitis which limits his ability to leave his house due to urgency and diarrhea. His most recent colono scopy revealed severe proctitis. He has a history of a stenotic IC valve that has been balloon dilated in the past, although on most recent colonoscopies, it has been able to be traversed. He is heretoday for consideration for diverting colostomy for treatment of his severe Crohn's proctitis refractory to medical therapy. Please also refer to scanned medical history. Past Medical History: Diagnosis Date Autoimmune disease No past surgical history on file. Current Outpatient Medications Medication Sig Dispense Refill allopurinoL (ZYLOPRIM) 100 mg tablet Take 100 mg by mouth daily. ALPRAZolam (XANAX) 0.5 mg tablet TAKE 1 TABLET BY MOUTH DAILY NEEDED FOR ANXIETY Uceris 2 mg/actuation Foam INSERT 1 APPLICATOR RECTALLY DAILY colchicine (COLCRYS) 0.6 mg tablet ergocalciferol (VITAMIN D2) 50,000 unit capsule Take 1 cap PO monthly folic acid (FOLVITE) 1 mg tablet Take 1 mg by mouth daily. methotrexate (RHEUMATREX) 2.5 mg Tablet TAKE 10 TABLETS BY MOUTH ONCE A WEEK Skyrizi 360 mg/2.4 mL (150 mg/mL) wearable injector [DISCONTINUED] budesonide 2 mg/actuation Foam Insert 1 Applicator by rectum daily. [DISCONTINUED] Cortifoam 10 % (80 mg) Foam INSERT 1 APPLICATOR INTO THE RECTUM DAILY DIRECTED [DISCONTINUED] mesalamine (CANASA) 1,000 mg Suppository UNWRAP AND INSERT ONE SUPPOSITORY RECTALLY EVERY NIGHT AT BEDTIME DIRECTED No current facility-administered medications for this visit. Allergies Allergen Reactions Mercaptopurine Analogues (Thiopurines) Muscle Pain Severe gout like joint pain that starts within days of taking medicine Social History Socioeconomic History Marital status: Spouse name: milan Peralta Number of children: 3 Years of education: Not on file Highest education level: Not on file Occupational History Not on file Tobacco Use Smoking status: Former Types: Cigarettes Smokeless tobacco: Never Substance and Sexual Activity Alcohol use: Yes Alcohol/week: 5.0 standard drinks Types: 5 Cans of beer per week Drug use: Never Sexual activity: Yes Partners: Female Other Topics Concern Not on file Social History Narrative Not on file Social Determinants of Health Financial Resource Strain: Not on file Food Insecurity: Not on file Transportation Needs: Not on file Physical Activity: Not on file Stress: Not on file Social Connections: Not on file Intimate Partner Violence: Not on file Housing Stability: Not on file Family History Problem Relation Name Age of Onset Diabetes Maternal Grandfather ADHD Son Review of Systems: History obtained from the patient General ROS: negative for weight changes, fever Psychological ROS: negative for anxiety or depressive symptoms Ophthalmic ROS: negative for visual changes, ocular redness or discharge ENT ROS: negative Allergy and Immunology ROS: negative for itchy eyes, nasal congestion, sneezing, lymphadenopathy Hematological and Lymphatic ROS: negative for swollen glands Endocrine ROS: negative for polyuria/polydipsia or new changes in weight Respiratory ROS: negative Cardiovascular ROS: negative for chest pain or dyspnea on exertion Gastrointestinal ROS: see HPI Genito-Urinary ROS: negative for dysuria, trouble voiding, or hematuria Musculoskeletal ROS: negative for back pain, neck pain or joint pain or swelling Neurological ROS: negative for TIA or stroke symptoms Dermatological ROS: negative for skin rashes or unusual skin lesions Physical Exam: General appearance alert, cooperative, no distress, appears stated age Head Normocephalic, without obvious abnormality, atraumatic Eyes conjunctivae/corneas clear. EOM's intact. Ears Normal external ear canals AU Nose Nares normal. Septum midline. Throat Lips, mucosa, and tongue normal. Neck supple, symmetrical, trachea midline,symmetric Back symmetric Lungs Symmetric; normal WOB Heart Regular rate and rhythm Abdomen soft, non-tender. nondistended. No masses Pelvic Deferred Extremities normal Skin Skin color, texture, turgor normal. Neurologic Normal; grossly intact Lab: No results found for: WBC, MANUALWBC, HGB, HGBPOC, HCT, HCTPOC, PLT, MCV No results found for: NA, K, CL, CO2, CA, BUN, CREAT, GLUCOSE, ANIONGAP, BCRATIO Impression: 1. Severe Crohn's proctitis refractory to medical therapy 2. Stenotic ileocecal valve Patient Active Problem List Diagnosis Code Crohn's disease of both small and large intestine K50.80 Plan: 1. Laparoscopic end sigmoid diverting colostomy. I discussed with the patient in detail the risks, benefits and alternatives to surgery. Risks described include but are not limited to: 1/Surgical risks such as bleeding, wound infection, intra-abd abscess, recurrence, injury to adjacent structures (ureter, small bowel, duodenum), anastomotic leak, need for reoperation, need for stoma, 2/Medical risks such as AK, DVT/PE, stroke, pneumonia, renal/resp failure, 3/Anesthetic risks, 4/Positioning risks (nerve injury), and 5/the real but remote possibility of . The patient voiced understanding of all of these risks and wishes to proceed. I will also discuss with Dr. Jones whether it may be warranted to perform limited ileocolic resection at the time of diverting colostomy in order to get rid of his known ileocolic Crohn's disease. This note was transcribed using Tintri naturally speaking computerized voice recognition without a human pants closer. This report may or may not have been adjusted for typographical, grammaticaland syntax errors. ING ROLL OPERATOR documented in this encounter Plan of Treatment Upcoming Encounters Date Type Department Care Team (Late st Contact Info) Description 01/14/2025 12:40 PM CDT Office Visit [facility] [id number] [place] [address] [address] [id number] [place] [address] [facility] [address] [place] [address] documented as of this encounter Visit Diagnoses Diagnosis Crohn's disease of large intestine with other complication- Primary Crohn's disease of small intestine with intestinal obstruction Regional enteritis of small intestine documented in this encounter
--- OUTSIDE RECORDS SUMMARY | 2024-11-11 19:23 | XMS_ITS | Encounter Summary ---
Author Organization [facility] Address [address] [place] [address] Care Team Providers Care Card Scraper Name Role Phone Unavailable Primary Care Provider Unavailabl e Reason for Visit * Reason Onset Date Comments Follow Up 01/27/2023 Encounter Details Date Type Department Care Team (Late st Contact Info) Description 01/27/2023 Telephone [facility] - [facility] [address] [place] [address] Kathleen Tran ANP [address] [place] [phone] Follow Up Social History Tobacco Use Types Packs/Day Years [...] Coronavirus/COVID-19? No / Unsure 01/11/2023 10:08 AM PILING CUTTER documented as of this encounter Miscellaneous Notes * Telephone Encounter - Kathleen Tran ANP - 01/27/2023 2:37 PM CDT Spoke to patient and . Recommend convex appliance. She has samples from [employer] convex. However, this did not hold. Will call for additional samples. Will also call [facility]. Needs clinic visit. On wait list. documented in this encounter Plan of Treatment Upcoming Encounters Date Type Department Care Team (Late st Contact Info) Description 01/14/2025 12:40 PM CDT Office Visit [facility] Gastroenterology [facility] [id number] [place] [address] [address] [address] [place] [address] [facility] [address] [place] [address] documented as of this encounter Visit Diagnoses Not on filedocumented in this encounter
--- OUTSIDE RECORDS SUMMARY | 2024-11-11 19:23 | XMS_ITS | Encounter Summary ---
Author Organization [facility] Address [address] Key: Epic Prelude ADT [place] [id number] Care Team Providers Care Tobacco Farmworker Name Role Phone Unavailable Primary Care Provider Unavailabl e Encounter Details Date Type Department Care Team (Latest Contact Info) Description 10/14/2022 Travel Social History Tobacco Use Types Packs/Day [...] Coronavirus/COVID-19? No / Unsure 10/14/2022 9:24 AM PLASTICS SPREADING MACHINE OPERATOR documented as of this encounter Plan of Treatment Upcoming Encounters Date Type Department Care Team (Late st Contact Info) Description 01/14/2025 12:40 PM CDT Office Visit [facility] Gastroenterology Leanne Mae [address] [facility] [address] [phone] [place] [address] [facility] [address] [place] [address] documented as of this encounter Visit Diagnoses Not on filedocumented in this encounter
--- OUTSIDE RECORDS SUMMARY | 2024-11-11 19:23 | XMS_ITS | Encounter Summary ---
Author Organization [facility] Address [address] [place] [address] Care Team Providers Care Property Disposal Officer Name Role Phone Unavailable Primary Care Provider Antolin e Encounter Details Date Type Department Care Team (Latest Contact Info) Description 12/20/2022 12:51 PM FACILITIES COORDINATOR - 12/20/2022 11:59 PM FACILITIES COORDINATOR Hospital Encounter [facility] - [facility] [address] [place] [phone] Kathleen Tran, TODD [address] [place] [phone] Vanessa Caldwell, computer systems software architect Disposition: Home or Self Care Social History [...] suspected to have Coronavirus/COVID-19? No / Unsure 12/20/2022 10:36 AM FACILITIES COORDINATOR documented as of this encounter Last Filed Vital Signs Vital Sign Reading Time Taken Comments Blood Pressure 132/82 12/20/2022 1:00 PM FACILITIES COORDINATOR Pulse 65 12/20/2022 1:00 PM FACILITIES COORDINATOR Temperature 36.5 ??C (97.7 ??F) 12/20/2022 1:00 PM CS T Respiratory Rate - - Oxygen Saturation - - Inhaled Oxygen Concentration - - Weight 109.5 kg (241 lb 6.4 oz) 12/20/2022 1:00 PM FACILITIES COORDINATOR Height - - Body Mass Index 30.17 12/20/2022 11:27 AM FACILITIES COORDINATOR documented in this encounter Discharge Instructions * Discharge Instructions* Vanessa Caldwell RN - 12/20/2022 7:44 AM FACILITIES COORDINATOR [facility] Discharge Instructions [phone] PLEASE NOTE Our hours may change due to inclement weather. Please call to confirm your appointment prior to driving in icy or snowy conditions. Stoma marking site: Left Lower Abdomen Date of Surgery: 12-26-22 Surgeon: Irasema Procedure: Laparoscopic end sigmoid diverting colostomy and ileocolic resection Activity You may shower and the transparent dressing can get wet. Just don't scrub over the transparent dressing so that it stays intact. Keep transparent dressing intact: If the transparent dressing comes off, reinforce the site marking with the purple surgical marking pen that you were given. Remove old dressing if not completely off, then wash gently with soap and water, rinse and pat dry. Go over the chelsea with the purple pen and let dry. Apply skin prep (wipe in the little packet) to the skin AROUND the marking. If you put it over the marking, it will smear. Apply the new transparent dressing and then apply more skin prep (can use same wipe) over the edgesof the dressing to help it stick better. Let dry. Pain Control: Continue your home regimen. Call the prescribing physician for any changes in your medications or for refills. Nutrition: Please maximize your nutrition/protein intake daily until your surgery. Recommend 1-2 protein shakes or bars/day, with as much protein as possible. We suggest Premier protein shakes because they are less expensive than Boost or Ensure, are generally better tasting and have 30 gm protein in each shake. If you prefer to use Boost or Ensure, that is acceptable, but get the ones with 30 gmof protein. The better your nutrition prior to the surgery, the better you will recover after the surgery. You should continue these after the surgery if advised by your surgeon. Smoking Exposure [facility] encourages all patients to decrease risks associated with smoking and second hand smoke exposure. If you smoke you are advised to quit. Ask your health care provider for advice if you need assistance to stop smoking. Avoid second-hand smoke exposure and do not let people smoke in your home. Please call [phone], our pulmonary rehabilitation department, to learn more about options to reduce your risks. If you experience any complications or have concerns, please contact the [facility] at [phone]. If after normal business hours, please contact your physician through their emergency telephone exchange or report to the Emergency Department. Return to the Ostomy Clinic 1-2 weeks after your surgery. Please bring all of your ostomy supplies with you. LITIES COORDINATOR documented in this encounter Medications at Time of Discharge Medication Sig Dispensed Refills Start Date End Date vedolizumab (Entyvio) 300 mg Recon Soln Inject 300 mg by intravenous injection every 8 weeks. 04/12/2022 HYDROcodone-acetamino phen (NORCO) 5-325 mg tabletIndications:Slime Plant Operator Helper hn's disease of large intestine with other complication [...] capsule Take 1 cap PO monthly 02/01/2022 folic acid (FOLVITE) 1 mg tablet Take 1 mg by mouth daily. 02/27/2021 vedolizumab (Entyvio) 300 mg Recon Soln Inject by intravenous injection one time only. 12/27/2022 neomycin (MYCIFRADIN) 500 mg tablet Take 2 Tablets (1,000 mg) by mouth see administration instructions. 2 tabs PO at 1PM 2pm and 10pm day before surgery 6 Tablet 12/20/2022 12/27/2022 metroNIDAZOLE (FLAGYL) 500 mg tabletIndications:renetta e 1 tab po at 6 8 and 10 PM evening of prep Take 1 Tablet (500 mg) by mouth see administration instructions. 1 tab PO at 1pm 2pm and 10pm day before surgery 3 Tablet 12/20/2022 12/27/2022 neomycin (MYCIFRADIN) 500 mg tablet Take 2 Tablets (1,000 mg) by mouth see administration instructions. 2 tabs PO at 1PM 2pm and 10pm day before surgery 6 Tablet 10/20/2022 12/27/2022 metroNIDAZOLE (FLAGYL) 500 mg tabletIndications:renetta e 1 tab po at 6 8 and 10 PM evening of prep Take 1 Tablet (500 mg) by mouth see administration instructions. 1 tab PO at 1pm 2pm and 10pm day before surgery 3 Tablet 10/20/2022 12/27/2022 Uceris 2 mg/actuation Foam INSERT 1 APPLICATOR RECTALLY DAILY 09/20/2022 12/27/2022 methotrexate (RHEUMATREX) 2.5 mg Tablet TAKE 10 TABLETS BY MOUTH ONCE A WEEK 10/10/2022 12/27/2022 Skyrizi 360 mg/2.4 mL (150 mg/mL) wearable injector 09/02/2022 12/27/2022 documented as of this encounter H&P Notes * Kathleen Tran ANP - 12/20/2022 1:00 PM CST Images from the original note were not included. [facility] Progress Note Date: 12/20/2022 Patient Name: Ranjit Peralta Patient Date of : 1980 Patient Age: 42 y.o. Patient Sex: male Diagnosis: Crohn's disease Plan: Follow up: In 3 weeks Nutrition Hydration Moisturizing cream for dry skin Avoid shear stress and trauma Weight stable Exercise Supplies-DME Consider stealth belt Consider ostomy armor Consider irrigation Follow up Dr. Baig - surgery 12/24/[address] Jones - GI Follow up [facility] nurse after surgery SUBJECTIVE Chief Complaint: Ranjit Peralta is a 42 y.o. male who is seen at [facility] for ostomy education and stoma site marking. History of Present Illness: Referral from Dr. Baig. With his who is a trained WOCN today. Scheduled for diverting colostomy for crohn's proctitis and stenotic IC valve. Here for ostomy education and stoma site marking. Educated on colostomy care, function, supplies. Educated using written materials and demonstration. Stoma site marked. Encouraged to return for additional education and support following surgery. Consider stealth belt, ostomy armor, irrigation if able. Questions answered. Location: none Quality: none Severity: none Duration: none Timing: none Context: none Modifying Factors: none Associated Symptoms/Signs: none TOBACCO COUNSELING He is not a tobacco user. DATABASE Past Medical History: Diagnosis Date Autoimmune disease Crohn's disease Gout, unspecified Past Surgical History: Procedure Laterality Date HX COLONOSCOPY HX WISDOM TEETH EXTRACTION high school REPAIR ANAL FISTULA Current Outpatient Medications on File Prior to Encounter Medication Sig Dispense Refill allopurinoL (ZYLOPRIM) 100 mg tablet Take 100 mg by mouth daily. colchicine (COLCRYS) 0.6 mg tablet ergocalciferol (VITAMIN D2) 50,000 unit capsule Take 1 cap PO monthly folic acid (FOLVITE) 1 mg tablet Take 1 mg by mouth daily. methotrexate (RHEUMATREX) 2.5 mg Tablet TAKE 10 TABLETS BY MOUTH ONCE A WEEK neomycin (MYCIFRADIN) 500 mg tablet Take 2 Tablets (1,000 mg) by mouth see administration instructions. 2 tabs PO at 1PM 2pm and 10pm day before surgery 6 Tablet 0 metroNIDAZOLE (FLAGYL) 500 mg tablet Take 1 Tablet (500 mg) by mouth see administration instructions. 1 tab PO at 1pm 2pm and 10pm day before surgery 3 Tablet 0 ALPRAZolam (XANAX) 0.5 mg tablet TAKE 1 TABLET BY MOUTH DAILY NEEDED FOR ANXIETY Uceris 2 mg/actuation Foam INSERT 1 APPLICATOR RECTALLY DAILY Skyrizi 360 mg/2.4 mL (150 mg/mL) wearable injector No current facility-administered medications on file prior [...] hematochezia, jaundice, peptic ulcer disease, GERD, hepatitis, IBS : dysuria, nocturia, hematuria, urgency, frequency or [...] for the visit today. EXAM Constitutional Vitals: 12/20/22 1300 BP: 132/82 Pulse: 65 Temp: 97.7 ??F (36.5 ??C) well developed, well nourished, in no [...] ulcers or unstable areas. Abdomensoft non tender. Trophic changes nails. Extremities: normal appearing left [...] Goals will be reevaluated at next visit [facility] Goals (12 weeks): independent with ostomy care, peristomal skin intact, consider support products for activities . Excellent potential for correction healing. If goal is not met, repeat appropriate testing if necessary and amend treatment plan as indicated. Follow up: In 3 weeks Nutrition Hydration Moisturizing cream for dry skin Avoid shear stress and trauma Weight stable Exercise Supplies-DME Consider stealth belt Consider ostomy armor Consider irrigation Follow up Dr. Baig - surgery 12/24/[address] Jones - GI Follow up [facility] nurse after surgery This medical record reflects the history of [...] time which was 45 minutes. TODD Lamb LITIES COORDINATOR documented in this encounter Miscellaneous Notes * Care Plan - Vanessa Caldwell RN - 12/20/2022 1:00 PM CST Patient Name: Ranjit Peralta Date of : 1980 Today's Date: 12/20/2022 Wound Ostomy Services Pre-Op Teaching/Marking Ostomy Consult Date of Surgery: 12-26-22 Surgeon: Irasema Procedure: Laparoscopic end sigmoid diverting colostomy and ileocolic resection Education Education provided to patient. Instructed on: Role of ostomy nurse GI/ system/surgical procedure/what to expect post-op Stoma formation/pictures and stoma model shown Expected changes in bowel/urinary function and management Nutrition and Hydration Abnormals to observe for and report to C nurse and Surgeon Pouching systems and features, accessories, samples provided for pt to experiment with at home [facility] Ostomy Book DVD A Guide to your Ostomy Surgery . [facility] support group information How to get ostomy product samples and supplies. Patient Assessment: Identified belt line, body contours, creases, bony prominences, scars, skin/tissue laxity. Pt feeling Ok, not nervous and is accepting Patient marked in LLQ with surgical marker. Stoma nurse assessed patient in sitting, standing and lying positions. Marking is within the rectus muscle and within the patient's visual field, away frombeltline, bony prominences, creases, scars and umbilicus. Stoma marking was protected with transparent dressing. Pt was instructed to leave this transparent dressing in place and may wash over it. Given surgical marker and transparent drape to reinforce the marked site if the transparent dressing should come off. Patient is in acceptance of marked site and understands that the actual stoma site may differ depending on intraoperative findings. May call clinic any time during business hours with questions or concerns. Inpatient Wound/Ostomy Team notified of pt's pending admission and will follow up here at the outpatient clinic for post-op teaching. Pt instructed to follow up at Outpatient Ostomy Clinic 2 weeks after surgery and to bring all of his/her ostomy supplies with him to this visit. Pt verbalizes understanding of AVS and instructions provided. LITIES COORDINATOR documented in this encounter Plan of Treatment Upcoming Encounters Date Type Department Care Team (Late st Contact Info) Description 01/14/2025 12:40 PM CDT Office Visit [facility] [id number] [place] [address] [address] [address] [place] [address] [facility] [address] [place] [address] documented as of this encounter Visit Diagnoses Not on filedocumented in this encounter
--- OUTSIDE RECORDS SUMMARY | 2024-11-11 19:23 | XMS_ITS | Encounter Summary ---
Author Organization [facility] Address [address] [place] [address] Care Team Providers Care Academic Manager Name Role Phone Unavailable Primary Care Provider Unavailabl e Encounter Details Date Type Department Care Team (Late Contact Info) Description 01/14/2023 Abstract [facility] Surgical Spec [place] [address] [facility] [address] [place] [address] Madhavi León, RN Social History [...] Coronavirus/COVID-19? No / Unsure 01/11/2023 10:08 AM LINDERMAN MACHINE OPERATOR documented as of this encounter Plan of Treatment Upcoming Encounters Date Type Department Care Team (Late st Contact Info) Description 01/14/2025 12:40 PM CDT Office Visit [facility] [address] [facility] [address] [place] [phone] [place] [address] [facility] [address] [place] [phone] documented as of this encounter Visit Diagnoses Not on filedocumented in this encounter
--- OUTSIDE RECORDS SUMMARY | 2024-11-11 19:23 | XMS_ITS | Encounter Summary ---
Author Organization [facility] Address [address] [place] [address] Care Team Providers Care Laminated Plastics Assembler And Gluer Name Role Phone Unavailable Primary Care Provider Unavailabl e Reason for Visit * Reason Comments Post-op Visit Encounter Details Date Type Department Care Team (Late st Contact Info) Description 01/11/2023 10:15 AM CARRIER DRIVER Office Visit [facility] Surgical Spec [place] [address] [facility] [address] [place] [address] Giovanni Baig MD [address] [facility] [address] [place] [address] Colostomy status (Primary Dx); Crohn's disease of both small and large intestine with other complication Social History Tobacco Use Types Packs/Day Years [...] Coronavirus/COVID-19? No / Unsure 01/11/2023 10:08 AM CARRIER DRIVER documented as of this encounter Last Filed Vital Signs Vital Sign Reading Time Taken Comments Blood Pressure 120/86 01/11/2023 7:00 AM CARRIER DRIVER Pulse - - Temperature - - Respiratory Rate - - Oxygen Saturation - - Inhaled Oxygen Concentration - - Weight - - Height - - Body Mass Index - - documented in this encounter Progress Notes * Giovanni Baig MD - 01/11/2023 10:21 AM CST Chief complaint: Postop visit History of Present Illness: Ranjit Peralta is a 42 y.o. male is S/P laparoscopic ileocolic resection with diverting end colostomy on 12/24/22 for Crohn's. The patient has no complaint of unusual pain at the incision, and hasreported no drainage from the incision. Appetite and bowel movements are returning back to normal. No nausea or vomiting. No fevers or chills reported. Physical Examination: BP 120/86 Gen: alert; in no acute distress HEENT: Normal; symmetric; anicteric Lungs: Symmetric CW motion; normal WOB Heart: regular Abdomen: Incision is healing well without sign of infection, erythema or subcutaneous fluid. Soft. Non-tender. Path Report: Colon, cecum, appendix and small intestine, terminal ileum, ileocolic resection: - Chronic active ileitis, ranging from mild to severe, with focal ulceration - Negative for dysplasia - Viable noninflamed margins - Appendix with serosal adhesions and minimal acute serositis - 4 lymph nodes negative for malignancy with reactive follicular lymphoid hyperplasia Colon, colostomy trim, diverting colostomy: - Submucosal edema Impression: Normal recovery following laparoscopic ileocolic resection with diverting end colostomy Plan: The pathology results were reviewed with the patient in detail. Return to clinic on an as-needed basis. IER DRIVER documented in this encounter Plan of Treatment Upcoming Encounters Date Type Department Care Team (Late st Contact Info) Description 01/14/2025 12:40 PM CDT Office Visit [facility] Gastroenterology [facility] [id number] [place] [address] [address] [place] [address] [place] [address] [facility] [address] [place] [address] documented as of this encounter Visit Diagnoses Diagnosis Colostomy status- Primary Crohn's disease of both small and large intestine with other complication documented in this encounter
--- OUTSIDE RECORDS SUMMARY | 2024-11-11 19:23 | XMS_ITS | Encounter Summary ---
Author Organization [facility] Address [address] [place] [address] Care Team Providers Care Hearing Screener Name Role Phone Unavailable Primary Care Provider Unavailabl e Encounter Details Date Type Department Care Team (Late st Contact Info) Description 10/14/2022 Chart Note [facility] Surgical Spec [place] [address] [facility] [address] [place] [address] Clara Silveira, RN [address] [facility] [address] [place], [place] [id number] Social History Tobacco Use Types Packs/Day Years [...] Coronavirus/COVID-19? No / Unsure 10/14/2022 9:24 AM CORRECTION OFFICER HEAD documented as of this encounter Progress Notes * Clara Silveira RN - 10/14/2022 11:56 AM CST Educational Booklet: Patient received educational booklet in Physician's Office. Education booklet was reviewed with thepatient. Encouraged patient to take notes in the booklet and bring with them to any future pre-surgical appointments and day of surgery. Patient verbalized understanding. yes Bowel prep: Patient was instructed on bowel prep per physician reference: yes Diet, Fluids, NPO and Carb Drink Diet day prior to surgery: Clear Liquid Patient was instructed on a clear liquid diet prior to surgery. Avoid alcohol consumption the day prior to surgery. Fluids: Patient with no history of diabetes: patient instructed on Pre-Surgery carb drink consumption 3 hours prior to surgery time: yes Patient with history of diabetes: patient was instructed on clear liquids and water up until 3 hours prior to the procedure unless indicated by physician: N/A Patient instructed to be NPO 3 hours prior to surgery start time. Pre-procedure medications: Pre-op oral antibiotics prescribed to patient: yes Neomycin AND Metronidazole (Flagyl) N/A Neomycin AND Erthromycin Other meds N/A Tobacco/Nicotine Cessation Patient instructed to not some day of surgery and that the availability of nicotine and that tobacco products are not permitted in the hospital: N/A Infection Prevention Patient instructed on how and when to use the antiseptic soap the night before the procedure and the morning of the procedure: yes ECTION OFFICER HEAD documented in this encounter Plan of Treatment Upcoming Encounters Date Type Department Care Team (Late st Contact Info) Description 01/14/2025 12:40 PM CDT Office Visit [facility] Gastro[facility]ology [facility] [id number] [place] [address] [address] [place] [address] [place] [address] [facility] [address] [place] [phone] documented as of this encounter Visit Diagnoses Not on filedocumented in this encounter
--- OUTSIDE RECORDS SUMMARY | 2024-11-11 19:23 | XMS_ITS | Encounter Summary ---
Author Organization [facility] Address [address] Key: Epic Prelude ADT [place] [address] Care Team Providers Care Auto Body Painter Name Role Phone Unavailable Primary Care Provider Unavailabl e Encounter Details Date Type Department Care Team (Latest Contact Info) Description 01/11/2023 Travel Social History Tobacco Use Types Packs/Day [...] Coronavirus/COVID-19? No / Unsure 01/11/2023 10:08 AM STOCK CHASER documented as of this encounter Plan of Treatment Upcoming Encounters Date Type Department Care Team (Late st Contact Info) Description 01/14/2025 12:40 PM CDT Office Visit [facility] Gastroenterology Leanne Mae [address] [facility] [address] [place] [phone] [place] [address] [facility] [address] [place] [address] documented as of this encounter Visit Diagnoses Not on filedocumented in this encounter
--- OUTSIDE RECORDS SUMMARY | 2024-11-11 19:23 | XMS_ITS | Encounter Summary ---
Author Organization [facility] Address [address] [place] [address] Care Team Providers Care Prior Authorization Nurse Name Role Phone Unavailable Primary Care Provider Unavailabl e Reason for Visit * Auth/Cert (Routine) Specialty Diagnoses / Procedures Referred By Med bazan Referred To Contact Perioperative Diagnoses Crohn's disease of large intestine with other complication Procedures NC LAPS CLSR NTRSTM LG/SM INT W/RESCJ & ANASTOMOSIS COLOSTOMY TAKE DOWN LAPAROSCOPIC [facility] Or [address] [place] [address] Referral ID Status Reason Start Date Expiration Date Visits Re quested Visits Authorized [id number] 1 1 Encounter Details Date Type Department Care Team (Latest Contact Info) Description 12/24/2022 5:25 AM MIGRANT LEADER - 12/27/2022 1:04 PM MIGRANT LEADER Hospital Encounter [facility] [address] [place] [address] Giovanni Baig MD [address] [facility] [address] [place] [address] Crohn's disease of both small and large intestine Discharge Disposition: Home Health Care Svc Social History Tobacco Use Types Packs/Day Years [...] suspected to have Coronavirus/COVID-19? No / Unsure 12/24/2022 6:52 AM MIGRANT LEADER documented as of this encounter Last Filed Vital Signs Vital Sign Reading Time Taken Comments Blood Pressure 141/86 12/27/2022 12:37 PM MIGRANT LEADER Pulse 68 12/27/2022 12:37 PM MIGRANT LEADER Temperature 36.3 ??C (97.4 ??F) 12/27/2022 12:[address] Respiratory Rate 16 12/27/2022 12:37 PM MIGRANT LEADER Oxygen Saturation 95% 12/27/2022 12:37 PM MIGRANT LEADER Inhaled Oxygen Concentration - - Weight 107 kg (235 lb 12.8 oz) 12/24/2022 5:48 A M MIGRANT LEADER Height 190.5 cm (6' 3 ) 12/24/2022 5:48 AM MIGRANT LEADER Body Mass Index 29.47 12/24/2022 5:48 AM MIGRANT LEADER documented in this encounter Discharge Summaries * Kristen Espinoza PA - 12/27/2022 9:45 AM CST Surgical Discharge Summary Patient Name Dante Peralta Age 42 y.o. Gender male Date of 1980 [facility] [id number] Attending Physician Giovanni Baig MD Discharging Physician KAREEM Jauregui PCP No primary care provider on file. Admit Date 12/24/2022 Discharge Date 12/27/2022 Length of Stay LOS: 3 days Follow-up & Outstanding Issues/Tests: Follow-up with Dr. Baig in 2 weeks. Hospital Course: Dante Peralta is a 42 y.o. male who was admitted to [facility] on 12/24/2022 and found to have a principle diagnosis of Crohn's. Pt was admitted for the noted procedure. His diet was advanced as tolerated when clinically appropriate. Once the patient was tolerating a diet, had adequate bowel function and had adequate pain control, he was deemed appropriate for discharge. There were no postoperative complications. Discharge Exam Vitals: afebrile; vitals within normal limits General appearance: alert, in no distress Abdomen: soft; ND; minimally tender; stoma is pink and viable with liquid stool in appliance Wound: clean, dry, intact Problems Addressed (Secondary Diagnoses): Active Hospital Problems Diagnosis Crohn's disease of both small and large intestine Resolved Hospital Problems No resolved problems to display. Procedures performed: Procedure(s) (LRB): ILEOCOLIC RESECTION LAPAROSCOPIC (N/A) DIVERTING COLOSTOMY LAPAROSCOPIC (N/A) Recent labs: Results for orders placed or performed during the hospital encounter of 12/24/22 (from the past 24 hour(s)) CBC WITH DIFFERENTIAL Result Value Ref Range WBC 6.9 4.0 - 9.8 K/uL RBC 4.04 (L) 4.50 - 5.40 M/uL HEMOGLOBIN 11.2 (L) 13.6 - 16.5 g/dL HEMATOCRIT 35.5 (L) 40.0 - 48.0 % MCV 87.9 82.0 - 99.0 fL MCH 27.7 27.2 - 32.6 pg MCHC 31.5 31.5 - 35.5 g/dL RDW 13.8 11.5 - 14.5 % RDW-STDEV 44.3 37.1 - 48.7 fL PLATELETS 228 140 - 350 K/uL MPV 9.2 (L) 9.3 - 12.4 fL NEUTROPHILS 72 % LYMPHOCYTES 14 % MONOCYTES 10 % EOSINOPHILS 4 % BASOPHILS 0 % IMMATURE GRANULOCYTES 0 % NEUTROPHIL ABSOLUTE 4.90 1.90 - 7.00 K/uL LYMPHOCYTE ABSOLUTE 0.95 0.70 - 4.50 K/uL MONOCYTE ABSOLUTE 0.71 0.10 - 1.30 K/uL EOSINOPHIL ABSOLUTE 0.24 0.00 - 0.70 K/uL BASOPHILS ABSOLUTE 0.03 0.00 - 0.20 K/uL IMMATURE GRANULOCYTES ABSOLUTE 0.02 0.00 - 0.03 K/uL BASIC METABOLIC PANEL Result Value Ref Range SODIUM 140 136 - 145 mmol/L POTASSIUM 4.0 3.5 - 5.0 mmol/L CHLORIDE 106 98 - 107 mmol/L CO2 26 22 - 29 mmol/L CALCIUM 8.8 8.6 - 10.2 mg/dL BUN 10 6 - 20 mg/dL CREATININE 0.95 0.67 - 1.17 mg/dL GLUCOSE 100 (H) 74 - 99 mg/dL GFR >60 >=60 mL/min/1.73 sq meter ANION GAP 8 8 - 16 mmol/L MEDICATIONS: Prior to admission: Medications Prior to Admission Medication Sig Dispense Refill Last Dose vedolizumab (Entyvio) 300 mg Recon Soln Inject by intravenous injection one time only. 12/09/2022 hydrocortisone 100 mg/60 mL enema Insert 100 mg by rectum 1 time daily as needed. Past Month metroNIDAZOLE (FLAGYL) 500 mg tablet Take 1 Tablet (500 mg) by mouth see administration instructions. 1 tab PO at 1pm 2pm and 10pm day before surgery 3 Tablet 0 12/23/2022 metroNIDAZOLE (FLAGYL) 500 mg tablet Take 1 Tablet (500 mg) by mouth see administration instructions. 1 tab PO at 1pm 2pm and 10pm day before surgery 3 Tablet 0 12/23/2022 allopurinoL (ZYLOPRIM) 100 mg tablet Take 100 mg by mouth daily. Past Week ALPRAZolam (XANAX) 0.5 mg tablet TAKE 1 TABLET BY MOUTH DAILY NEEDED FOR ANXIETY Past Week Uceris 2 mg/actuation Foam INSERT 1 APPLICATOR RECTALLY DAILY Past Month colchicine (COLCRYS) 0.6 mg tablet Past Week ergocalciferol (VITAMIN D2) 50,000 unit capsule Take 1 cap PO monthly Past Month folic acid (FOLVITE) 1 mg tablet Take 1 mg by mouth daily. Past Month methotrexate (RHEUMATREX) 2.5 mg Tablet TAKE 10 TABLETS BY MOUTH ONCE A WEEK Past Month neomycin (MYCIFRADIN) 500 mg tablet Take 2 Tablets (1,000 mg) by mouth see administration instructions. 2 tabs PO at 1PM 2pm and 10pm day before surgery 6 Tablet 0 N/A neomycin (MYCIFRADIN) 500 mg tablet Take 2 Tablets (1,000 mg) by mouth see administration instructions. 2 tabs PO at 1PM 2pm and 10pm day before surgery 6 Tablet 0 N/A Skyrizi 360 mg/2.4 mL (150 mg/mL) wearable injector Discharge medications and new prescriptions: Medication List START taking these medications HYDROcodone-acetaminophen 5-325 mg tablet Commonly known as: NORCO Take 1 Tablet by mouth every 4 hours as needed for Pain, Moderate. Max Daily Amount: 6 Tablets Signed by: KAREEM Villeda Quantity: 30 Tablet Refills: 0 CONTINUE taking these medications allopurinoL 100 mg tablet Commonly known as: ZYLOPRIM Take 100 mg by mouth daily. Refills: 0 ALPRAZolam 0.5 mg tablet Commonly known as: XANAX TAKE 1 TABLET BY MOUTH DAILY NEEDED FOR ANXIETY Refills: 0 colchicine 0.6 mg tablet Commonly known as: COLCRYS Refills: 0 ergocalciferol 50,000 unit capsule Commonly known as: VITAMIN D2 Take 1 cap PO monthly Refills: 0 folic acid 1 mg tablet Commonly known as: FOLVITE Take 1 mg by mouth daily. Refills: 0 hydrocortisone 100 mg/60 mL Enema Commonly known as: CORTENEMA Insert 100 mg by rectum 1 time daily as needed. Refills: 0 STOP taking these medications Entyvio 300 mg Recon Soln Generic drug: vedolizumab methotrexate 2.5 mg Tablet Commonly known as: RHEUMATREX metroNIDAZOLE 500 mg tablet Commonly known as: FLAGYL neomycin 500 mg tablet Commonly known as: MYCIFRADIN Skyrizi 360 mg/2.4 mL (150 mg/mL) wearable injector Generic drug: risankizumab-rzaa Uceris 2 mg/actuation Foam Generic drug: budesonide Where to Get Your Medications These medications were sent to [place] [id number] Hours: Retail 8 AM - 12 AM Daily / ED Service 10 AM - 12 AM Daily HYDROcodone-acetaminophen 5-325 mg tablet Discharged Condition: improving Disposition: home. Patient Instructions: Activity: No lifting (>10#), Driving, or Strenuous exercise for 4 weeks Diet is: low fiber Wound Care: Keep wound clean and dry. Signed: KAREEM Jauregui 12/27/2022, 9:45 AM This discharge took less than 30 minutes of time to prepare. CC: An electronic copy of this discharge summary was routed to the patient's PCP No primary care provider on file. if applicable to the patient. ? ANT LEADER documented in this encounter Discharge Instructions * Discharge Instructions* Kristen Espinoza PA - 12/25/2022 1:21 PM MIGRANT LEADER Wound/Ostomy Services Ostomy Discharge Instructions: Patient is to be seen by an closing manager the day of discharge. Surgical Procedure: Date of surgery Surgeon: Assessment of Ostomy Type: Stoma appearance: Stoma size(cm): Stoma height : Location of the stoma opening: (center, distal) Mucocutaneous junction: Peristomal skin care: Abdominal contours: Abdominal skin tone: ( soft, distended, rigid) Appliance Type: Accessories used: Stoma function: Make an appointment for 2 weeks post discharge at our [facility]. to see an Ostomy Nurse for post op teaching. Call [phone] for scheduling information. It may take 2-4 weeks to get in so please call as soon as possible to schedule an appointment. It is important to follow up to make sure that potential problems are avoided and that you have the easiest possible recovery and adjustment to your ostomy. Bring all your ostomy supplies with you to your outpatient visit. Clinic Address: [address] [place] [address]. Hours of Operation: Tuesday-Tuesday: 8 a.m. - 4 p.m. You will be sent home with supplies to last approximately 2 weeks Contact your insurance company about ordering and reimbursement of ostomy supplies as soon as possible.If you are receiving Home Health care, they can assist you with ordering/obtaining supplies. You have been enrolled in the [employer] Secure Start program. Expect to receive a customized product kit within 72 hours of discharge. A patient coordinator will call you within 72 hours for consultation and can be contacted at . For additional support, the [employer] meets the first Tuesday of the month at various hospital locations. For more information call [phone]. The Ostomy Department staff recognizes this is a new and challenging experience for you. Should youhave any questions or concerns please contact our department at [phone]; Tuesday through Tuesday8-4:30p. Diet: Low residue diet until seen in clinic Please report following to MD/office 1) Fevers >101.5 2) Persistent nausea/vomiting 3) New drainage/redness/swelling/increased pain at incision sites 4) > 6 BMs daily or ileostomy output >1200cc/day 5) Chest pain/shortness of breath/new abdominal pain Wound cares: Please keep wounds clean and dry. If present, change dressings as instructed by staff May shower No tub soaks/swimming for 2 weeks Medications: Please take discharge medications as instructed. (See discharge med list) Activity: No heavy lifting greater than 10lb for 4 weeks No driving while taking narcotics. Follow-up 1) Please send Dr. Baig an email on [employer] in 48-72 hours to give an update on your progress at home. 2) Dr. Baig in the office in 2 weeks for a post-operative visit. Please call [phone] toarrange appointment. If pending labs/pathology results, they will be reviewed in postoperative visit or you may call (or email to Dr. Baig on [employer]) in 5 business days to inquire about the your pathology. ANT LEADER documented in this encounter Medications at Time [...] as of this encounter Progress Notes * Nimisha Reinoso MSW - 12/27/2022 12:56 PM CST 12/27/22 1200 Discharge Planning Plan Discharge To Home with home health Discharge Plan Agreed Upon Patient;Spouse Final Discharge Arrangements Services Arranged For Discharge [facility] health Agency Name [facility] Copy of this transfer form will be sent with patient along with: CATHY Fox Hours: Sat, Sun, Mon & Tues (8-6:30PM) ANT LEADER * Daisy Bardales MD - 12/26/2022 3:08 PM CST COLON AND RECTAL SURGERY PROGRESS NOTE Admit Date: 12/24/[address] Baig Subjective: The patient's pain control is reported to be adequate, but worsened by coughing. Trying not to takeOxycodone. The patient denies nausea, denies emesis. Tolerating diet: yes. The appetite is fair. The patient reports 0 BMs in the last 24 hours. Objective: Vitals: 12/25/22 0610 12/25/22 0941 12/25/22 2105 12/26/22 0506 BP: 115/61 114/62 118/49 122/63 BP Location: Left arm Left arm Left arm Left arm Patient Position (BP): Supine Supine Supine Supine Pulse: (!) 49 (!) 46 (!) 53 61 Resp: Temp: 98 ??F (36.7 ??C) 98 ??F (36.7 ??C) 97.9 ??F (36.6 ??C) 98 ??F (36.7 ??C) TempSrc: Oral Oral Oral Oral SpO2: 98% 95% 95% 95% Weight: Height: Intake/Output Summary (Last 24 hours) at 12/26/2022 0738 Last data filed at 12/26/2022 0507 Gross per 24 hour Intake 1100 ml Output 2 ml Net 1098 ml BP 122/63 (BP Location: Left arm, Patient Position (BP): Supine) Pulse 61 Temp 98 ??F (36.7 ??C) (Oral) Resp 17 Ht 6' 3 (1.905 m) Wt 107 kg (235 lb 12.8 oz) SpO2 95% BMI 29.47 kg/m?? General appearance: alert, in no distress Lungs: normal respiratory effort Heart: normal rate, regular rhythm Abdomen: Soft, appropriate incisional tenderness. Colostomy is viable, no stool or gas in the appliance at the time of exam, minimal bowel sweat Wound: clean, dry, intact Extremities: extremities normal, atraumatic, no cyanosis or edema Neurologic: Grossly normal Labs/Imaging/Pathology: Hospital Encounter on 12/24/22 (from the past 24 hour(s)) CBC WITH DIFFERENTIAL Collection Time: 12/26/22 5:08 AM Result Value Ref Range WBC 7.3 4.0 - 9.8 K/uL RBC 3.96 (L) 4.50 - 5.40 M/uL HEMOGLOBIN 10.8 (L) 13.6 - 16.5 g/dL HEMATOCRIT 34.7 (L) 40.0 - 48.0 % MCV 87.6 82.0 - 99.0 fL MCH 27.3 27.2 - 32.6 pg MCHC 31.1 (L) 31.5 - 35.5 g/dL RDW 13.8 11.5 - 14.5 % RDW-STDEV 43.6 37.1 - 48.7 fL PLATELETS 221 140 - 350 K/uL BASIC METABOLIC PANEL Collection Time: 12/26/22 5:08 AM Result Value Ref Range SODIUM 140 136 - 145 mmol/L POTASSIUM 4.2 3.5 - 5.0 mmol/L CHLORIDE 108 (H) 98 - 107 mmol/L CO2 24 22 - 29 mmol/L CALCIUM 8.5 (L) 8.6 - 10.2 mg/dL BUN 14 6 - 20 mg/dL CREATININE 1.12 0.67 - 1.17 mg/dL GLUCOSE 95 74 - 99 mg/dL GFR >60 >=60 mL/min/1.73 sq meter ANION GAP 8 8 - 16 mmol/L Assessment: Status post: Laparoscopic ileocolic resection with primary stapled [id number] functional end-to-end anastomosis between the mid ileum and the ascending colon. Laparoscopic diverting end-sigmoid colostomy. POD # 2 Patient has remained hemodynamically stable and afebrile. Awaiting return of bowel function Plan: Nutrition: Current Diet and/or Nutritional Supplementation ordered: DIET FIBER CONTROL Continue pain management with Tylenol, NSAIDs and PO narcotics as needed Activity: ad flory Encouraged deep breathing exercises and incentive spirometer DVT prophylaxis with Heparin 5000 U SQ TID and SCDs Daisy Bardales MD 12/26/2022 ANT LEADER * Giovanni Baig MD - 12/25/2022 6:52 PM CST Patient seen/examined. He is doing well, postoperative day 1 status post laparoscopic diverting sigmoid colostomy with ileocolic resection. He is just advanced to a low fiber diet. He is passing flatus through his colostomy bag, but no stool yet. On examination, he is afebrile and his vital signs are stable. Abdomen soft/minimally distended/appropriately tender to palpation. His incisions are clean/dry/intact. Colostomy is pink.< BR> Labs are reviewed and stable. Impression: Stable Plan: Continue eras protocol. Await return of bowel function. Dr. Jacobson to cover tomorrow. ANT LEADER * Patti Dodd RN - 12/25/2022 10:11 AM CST 12/25/2022 10:11 AM Regional Anesthesia Service Name: Dante Peralta Age: 42 y.o. Sex: male CSN: [id number] Chief complaint: Post operative pain POD # 1 Block Type: TAPS - bilateral Current pain score: 4/10 Patient notes having increase pain when trying to sit up advised to splint with a pillow to see if that helps. Tolerating pain medication but wants to see if he has something else to take doesn't want just narcotics. Told him and his Toradol is ordered and he can try that instead and see if ithelps. BP 114/62 (BP Location: Left arm, Patient Position (BP): Supine) Pulse (!) 46 Temp 98 ??F (36.7??C) (Oral) Resp 18 Ht 6' 3 (1.905 m) Wt 107 kg (235 lb 12.8 oz) SpO2 95% BMI 29.47 kg/m?? Alert: yes Nausea/vomiting: no Oral narcotics tolerated: yes Motor block: no Sensory Block: no Injection site: C/D/I - yes, without ecchymosis/edema/erythema LABS Lab Results Component Value Date WBC 11.3 (H) 12/25/2022 HGB 11.6 (L) 12/25/2022 HCT 36.7 (L) 12/25/2022 PLT 283 12/25/2022 No results found for: INR, PT, PROTIMEPOC Nerve block resolving as anticipated. No apparent complications. Please contact the Regional Anesthesia Service with any questions regarding the nerve block. Patti Dodd RN The Regional Anesthesia Service may be contacted by zone phone [phone] during daytime resource hours,or by pager [phone] at any time. If there is no answer within 20 minutes, call [phone] for the Anesthesiologist hotel recreational facilities manager. ANT LEADER documented in this encounter H&P Notes * Giovanni Baig MD - 12/24/2022 7:41 AM CST Subjective: Patient is 42 y.o. male with Crohn's small bowel disease plus proctitis here for laparoscopic ileocolic resection plus laparoscopic diverting end sigmoid colostomy. Patient Active Problem List Diagnosis Code Crohn's disease of both small and large intestine K50.80 Past Medical History: Diagnosis Date Autoimmune disease Crohn's disease Gout, unspecified Past Surgical History: Procedure Laterality Date HX COLONOSCOPY HX WISDOM TEETH EXTRACTION high school REPAIR ANAL FISTULA Medications Prior to Admission Medication Sig Dispense Refill Last Dose vedolizumab (Entyvio) 300 mg Recon Soln Inject by intravenous injection one time only. 12/09/2022 hydrocortisone 100 mg/60 mL enema Insert 100 mg by rectum 1 time daily as needed. Past Month metroNIDAZOLE (FLAGYL) 500 mg tablet Take 1 Tablet (500 mg) by mouth see administration instructions. 1 tab PO at 1pm 2pm and 10pm day before surgery 3 Tablet 0 12/23/2022 metroNIDAZOLE (FLAGYL) 500 mg tablet Take 1 Tablet (500 mg) by mouth see administration instructions. 1 tab PO at 1pm 2pm and 10pm day before surgery 3 Tablet 0 12/23/2022 allopurinoL (ZYLOPRIM) 100 mg tablet Take 100 mg by mouth daily. Past Week ALPRAZolam (XANAX) 0.5 mg tablet TAKE 1 TABLET BY MOUTH DAILY NEEDED FOR ANXIETY Past Week Uceris 2 mg/actuation Foam INSERT 1 APPLICATOR RECTALLY DAILY Past Month colchicine (COLCRYS) 0.6 mg tablet Past Week ergocalciferol (VITAMIN D2) 50,000 unit capsule Take 1 cap PO monthly Past Month folic acid (FOLVITE) 1 mg tablet Take 1 mg by mouth daily. Past Month methotrexate (RHEUMATREX) 2.5 mg Tablet TAKE 10 TABLETS BY MOUTH ONCE A WEEK Past Month neomycin (MYCIFRADIN) 500 mg tablet Take 2 Tablets (1,000 mg) by mouth see administration instructions. 2 tabs PO at 1PM 2pm and 10pm day before surgery 6 Tablet 0 N/A neomycin (MYCIFRADIN) 500 mg tablet Take 2 Tablets (1,000 mg) by mouth see administration instructions. 2 tabs PO at 1PM 2pm and 10pm day before surgery 6 Tablet 0 N/A Skyrizi 360 mg/2.4 mL (150 mg/mL) wearable injector Mercaptopurine analogues (thiopurines) Social History Socioeconomic History Marital status: Spouse name: anju Peralta Number of children: 3 Years of [...] on file Transportation Needs: Not on file Social Connections: Not on [...] for skin rashes or unusual skin lesions Objective: Vitals: 12/24/22 0548 BP: (!) 156/94 BP Location: Left arm Patient Position (BP): Sitting Pulse: 90 Resp: 18 Temp: 97.8 ??F (36.6 ??C) TempSrc: Temporal SpO2: 96% Weight: 107 kg (235 lb 12.8 oz) Height: 6' 3 (1.905 m) No intake or output data in the 24 hours ending 12/24/22 0741 No results found for this visit on 12/24/22 (from the past 24 hour(s)). PE: Neuro: no focal deficits CN II-XII: grossly intact CV: S1S2; regular Pulmn: CTA B Abd: soft, ND/NT Ext: appear equal in strength Assessment: Crohn's disease of small intestine and Crohn's proctitis Plan: Laparoscopic ileocolic resection and laparoscopic diverting end sigmoid colostomy I discussed with the patient in detail the risks, benefits and alternatives to surgery. Risks described include but are not limited to: 1/Surgical risks such as bleeding, wound infection, intra-abd abscess, recurrence, injury to adjacent structures (ureter, small bowel, duodenum), anastomotic leak,need for reoperation, need for stoma, 2/Medical risks such as ME, DVT/PE, stroke, pneumonia, renal/resp failure, 3/Anesthetic risks, 4/Positioning risks (nerve injury), and 5/the real but remote possibility of . The patient voiced understanding of all of these risks and wishes to proceed. ANT LEADER documented in this encounter Consult Notes * Smita David RN - 12/27/2022 1:04 PM CST Images from the original note were not included. Wound Ostomy Services Ostomy Teaching - Book Review Patient Name: Dante Peralta Date/time of Admission: 12/24/2022 5:25 AM Today's Date: 12/27/2022 Current Hospital Day: Hospital Day: 4 Surgical Procedure: Laparoscopic ileocolic resection with primary stapled digk-jw-ewnz functional end-to-end anastomosis between the mid ileum and the ascending colon. Laparoscopic diverting end-sigmoid colostomy. Date of surgery:12/24/22 Surgeon: Jovanni Ostomy Assessment & Intervention Stoma Type: Temporary End sigmoid colostomy Location LLQ Stoma appearance Moist, red, edematous, stiff. Size/shape: 3 x 2.5 cm Protrusion: 1 cm Lumen Central os with crease vs extension of os to skin level at 0600 Mucocutaneous junction: Intact. Concern for potentially developing separation for 0800 to 0900. Narrow margin of adherent yellow slough apx 0.5 cm. No current depth. Alana-stomal skin: intact Abdominal contours: Generalized swelling, mild roundness to overall flat abdomen Abdominal tone: soft Stoma function: Active with noted gas and effluent Output: 50 mL Output characteristics Thick liquid, brown New pouching system/accessories applied as noted below. Brand: [employer] Pouching system description: Two piece flat pouching system with lock and roll microseal closure. SO requested 2 piece in order to empty gas more effectively. Skin barrier Devlin number/product number: [id number] / [id number] Pouch Devlin number/product number: [id number] / [id number] Measurement: 1 34 Accessory products used: [employer] cera ring, lubricant/deodorizers added to pouching system d/t patient inability to tolerate odor with emptying/changing. Location of supplies [facility] Pouching system emptied, skin barrier removed. Stoma cleansed with NS and type VII gauze for mechanical (non-selective, non- excisional) debridement removing effluent vs slough from mucosal tissue surface. Peristomal skin cleansed in similar manner. Patient tolerated well, [id number] education provided during care. I&O assessment: Intake/Output 12/24/22 07 - 12/25/22 0659 12/25/22 07 - 12/26/22 0659 12/26/22 07 - 12/27/22 0659 Total Total 1899-0659 Total Intake P.O. -- 1650 1650 -- 1100 1100 460 -- 460 P.O. (mL) -- 1650 1650 -- 1100 1100 460 -- 460 I.V. 2700 -- 2700 -- -- -- -- -- -- Volume (mL) (lactated ringers infusion) 700 -- 700 -- -- -- -- -- -- Volume (mL) (lactated ringers infusion) 1999 -- 1999 -- -- -- -- -- -- Total Intake 2700 1650 4350 -- 1100 1100 460 -- 460 Output Urine 1075 2250 3325 -- 2 2 2 -- 2 Unmeasured Void -- -- -- -- 2 x 2 x 2 x -- 2 x Void (mL) -- 0 0 -- 2 2 2 -- 2 IntraOp Urine Output (mL) 300 -- 300 -- -- -- -- -- -- Urine Catheter Output (mL) ([REMOVED] Indwelling Urethral Catheter 12/24/22 Indwelling double lumencatheter 16 Fr) 775 2250 3025 -- -- -- -- -- -- Emesis 0 0 0 0 0 0 0 -- 0 Emesis (mL) 0 0 0 0 0 0 0 -- 0 Drains 0 0 0 0 0 0 -- 550 550 Output (mL) (Colostomy 12/24/22 1035 descending/sigmoid colostomy) 0 0 0 0 0 0 -- 550 550 Other 20 0 20 -- 0 0 -- -- -- Est Blood Loss (mL) 20 -- 20 -- -- -- -- -- -- Stool (mL) 0 0 0 -- 0 0 -- -- -- Total Output 1095 2250 3345 0 2 2 2 550 552 Net I/O 1605 -600 1005 0 1098 1098 458 -550 -92 12/27/22 0700 - 12/28/22 0659 (Discharged) 2083-3041 4691-5091 Total Intake Total Intake -- -- -- Output Emesis 0 -- 0 Emesis (mL) 0 -- 0 Total Output 0 -- 0 Net I/O 0 -- 0 Medical Devices\Dressings: GI: ostomy, Surgical dressings:lap sites IMANI approximated with glue Skin\Wound Assessment: 12/25/2022 Education Education provided to: patient and spouse. Educated regarding: Emptying the pouch Expected output, gas and odor management Signs of potential complications and when to contact a healthcare professional Dietary and fluid guidelines Clothing, travel, activity Options for night drainage system if applicable Resources: suppliers, [employer] support group, out-patient services, Secure Start Ostomy folder information was reviewed: yes Reviewed items to be received fromSecure Start: yes Secure start consent signed: no Spouse has initiated this process prior to d/c Secure Start entered? no Supplies ordered and brought to room: yes Questions answered. Teach-back methods used. Social Service will be consulted for any possible discharge needs/NEW OSTOMY - Home Health Care will need to be arranged Impression: Reviewed folder information with both patient and spouse. As mentioned in previous note spouse Anju is an ostomy nurse. Spouse reports already reach out to [facility] regarding ostomy supplies. Full skin assessment by Wound/Ostomy Department date:12/25/2022 Recommendations Discharging 12/27/22, seen just prior to d/c Review instructions added to AVS upon discharge. We will continue to follow for teaching/learning needs. Follow all ostomy interventions as found in Care Plan. Please notify us for any ostomy/skin issues, or any questions/concerns. Thank You. Smita David RN, BSN, CWCN Wound Ostomy Department Zone:[id number] ANT LEADER * Mendy Canales RN - 12/26/2022 2:41 PM CST Wound Ostomy Services Ostomy Teaching - Book Review Patient Name: Dante Peralta Date/time of Admission: 12/24/2022 5:25 AM Today's Date: 12/26/2022 Current Hospital Day: Hospital Day: 3 Surgical Procedure: Laparoscopic ileocolic resection with primary stapled pqqn-gv-wxll functional end-to-end anastomosis between the mid ileum and the ascending colon. Laparoscopic diverting end-sigmoid colostomy. Date of surgery:12/24/22 Surgeon: Jovanni Assessment of Ostomy Type:Diverting end Colostomy Stoma appearance:pink, moist as visualized through intact pouch Stoma size(cm):not measured, pouch intact Stoma height: appears slightly above skin level as visualized through intact pouch Location of the stoma opening: center Mucocutaneous junction:Unable to visualize through intact pouch Peristomal skin:Unable to visualize through intact pouch Abdominal contours: rounded Abdominal skin tone: slightly distended Appliance Type:Skytop 1 piece flat with lock and roll closure Devlin #:[id number] Location of supplies: [facility] Accessories used:none (powder, paste, and skin prep in purple bag as per previous note) Stoma function:stool/flatus Output:+ flatus Stool color/consistency: I&O assessment: Per [facility] as of 0700: Total intake 1,100 mL Total output 2 mL (total ostomy output 0 mL) Medical Devices\Dressings: GI: ostomy, Surgical dressings:lap sites JUNIOR SYSTEMS ANALYST approximated with glue Skin\Wound Assessment: 12/25/2022 Education Education provided to: Educated regarding: Emptying the pouch Expected output, gas and odor management Signs of potential complications and when to contact a healthcare professional Dietary and fluid guidelines Clothing, travel, activity Options for night drainage system if applicable Resources: suppliers, [employer] support group, out-patient services, Secure Start Ostomy folder information was reviewed: yes Reviewed items to be received fromcure Start: yes Secure start consent signed: no ~Enter Secure Start after today's visit.~ Secure Start entered? no Supplies ordered and brought to room: yes as noted in previous note Questions answered. Teach-back methods used. Social Service will be consulted for any possible discharge needs/NEW OSTOMY - Home Health Care will need to be arranged Impression:Reviewed folder information with both patient and spouse. As mentioned in previous note spouse Anju is an ostomy nurse. Spouse reports already reach out to [facility] regarding ostomy supplies. Full skin assessment by Wound/Ostomy Department date:12/25/2022 Recommendations Anticipate pouch change 12/27/[address] speci-hat in bathroom so patient can empty the pouch himself and still keep I+Os. Staff may assist to empty, but should NOT do it for him. Patient is to be seen by an closing manager the day of discharge. Review instructions added to AVS upon discharge. We will continue to follow for teaching/learning needs. Follow all ostomy interventions as found in Care Plan. Please notify us for any ostomy/skin issues, or any questions/concerns. Thank You. Mendy Larios RN, BSN Wound Ostomy Department Zone:[id number] ANT LEADER * Lisa Donald RD - 12/26/2022 11:25 AM CSTAssociated Order(s): IP CONSULT TO NUTRITION SERVICES Images from the original note were not included. CLINICAL DIETITIAN PROGRESS NOTE [facility] Nutrition Consult for Colostomy Education PMHx: Patient is 42 y.o. male with Crohn's small bowel disease plus proctitis here for laparoscopicileocolic resection plus laparoscopic diverting end sigmoid colostomy. Food and Nutrition Related History: Pt reports gas but no stool output yet. Taking intakes slowly. Reviewed colostomy nutrition with pt and . Assessment: Anthropometrics: Height: 6' 3 (190.5 cm) (12/24/22547) Weight: 107 kg (235 lb 12.8 oz) () Body mass index is 29.47 kg/m??. Lyle body weight: 84.5 kg (186 lb 4.6 oz) Adjusted ideal body weight: 93.5 kg (206 lb 1.5 oz) Admit weight: Weight: 107 kg (235 lb 12.8 oz) (12/24/22547) Wt Readings from Last 10 Encounters: 12/24/22 107 kg (235 lb 12.8 oz) 12/20/22 108.4 kg (239 lb) 12/20/22 109.5 kg (241 lb 6.4 oz) 10/14/22 108.9 kg (240 lb) Last seven weights (if available) from 11/28/22 1126 to 12/26/22 1125 (Last 7 readings): Weight Weight Method 02/17/23 0548 107 kg (235 lb 12.8 oz) Actual Past Medical History: Diagnosis Date Autoimmune disease Crohn's disease Gout, unspecified Lab Results Component Value Date/Time NA 140 12/26/2022 05:08 AM K 4.2 12/26/2022 05:08 AM CL 108 (H) 12/26/2022 05:08 AM BUN 14 12/26/2022 05:08 AM CREAT 1.12 12/26/2022 05:08 AM GLUCOSE 95 12/26/2022 05:08 AM CA 8.5 (L) 12/26/2022 05:08 AM ALBUMIN 4.2 12/20/2022 12:01 PM GFR >60 12/26/2022 05:08 AM No results found for: HGBA1C, ZUOS2OJHB Pert Meds: Pepcid, Folvite, Mg-Ox Food Allergies: No known food allergies Skin: See Flowsheet for more wound documentation Maximino Score: 22 (12/25/222219) Nutrition Prescription: DIET FIBER CONTROL Intake Points: 30 Nutrition intake is meeting less than 75% of recommended nutritional needs D: Nutrition education/counseling r/t Food and Nutrition related knowledge deficit as evidenced by new colostomy I:Nutrition Intervention: Educated on small, frequent meals, chewing food well, avoiding high fiber foods for the next 3-6 weeks(per MD). Encourage adequate hydration and electrolyte packets as needed. Provided colostomy education handout with lists of foods to avoid and lists of foods to troubleshoot potential colostomy side effects. Goal: Consume 75% of meals/ supplements M/E: 1. Continue to monitor: Anthropometrics, Digestive, Skin, and Biochemical data 2. Follow up every 3-5 days and as needed. Time spent: [address], LD Contact via [employer] Secure Chat ANT LEADER * Sharmila Box RN - 12/25/2022 11:40 AM CSTAssociated Order(s): IP CONSULT TO OSTOMY NURSE Wound Ostomy Services Initial Consult Patient Name: Dante Peralta Date\Time of Admission: 12/24/2022 5:25 AM Today's Date: 12/25/2022 Current Hospital Day: Hospital Day: 2 Past Medical History\Chief Complaint: per chart review Patient is 42 y.o. male with Crohn's small bowel disease plus proctitis here for laparoscopic ileocolic resection plus laparoscopic diverting end sigmoid colostomy. Code Status: Full Code Nutrition BMI: Body mass index is 29.47 kg/m??. Current diet order: DIET FULL LIQUID Supplements: no Nutrition consult: yes placed today Maximino Score:20 Support Surfaces\Positioning Current type of bed\mattress: Atmsoair Current type of sitting surface: standard recliner Current positioning: supine Current HOB: 40 degrees Postioning\transferring: SBA Repositioned: not at this time Medical Devices\Dressings GI: ostomy, Surgical dressings:lap sites IMANI approximated with glue Abdominal binder Skin\Wound Assessment No pressure related skin breakdown to coccyx, sacrum, ischials, trochanters, heels, elbows or occiput. No skin breakdown related to medical devices. Wound Ostomy Services OstomyTeaching #1 Surgical Procedure: Laparoscopic ileocolic resection with primary stapled pbka-lz-oowt functional end-to-end anastomosis between the mid ileum and the ascending colon. Laparoscopic diverting end-sigmoid colostomy. Date of surgery:12/24/22 Surgeon: Jovanni Assessment of Ostomy Type:Diverting end Colostomy Stoma appearance:pink moist slightly oval Stoma size(cm): slightly larger than ~1 1/8 Stoma height :minimally protruding above skin level Location of the stoma opening: unable to determine Mucocutaneous junction:intact Peristomal skin:intact Abdominal contours: Abdominal skin tone:slightly distended Appliance Type:1 piece flat Smiley with lock n roll closure Devlin #:[id number] Location of supplies: [facility] Accessories used:none (powder, ring, paste and skin prep in purple bag) Stoma function:flatus Output: flatus Stool color/consistency:none at this time I&O assessment: per chart review Intake 4350cc Output 3345cc (none from ostomy) Education Education provided to: Patient and (Anju) Ostomy Folder was given to patient.yes Education regarding: Role of ostomy nurse First pouch changed today ; encouraged participation Discharged with 4 pouch changes/ Secure Start Notification to their insurance to determine a supplier [facility] Reviewed items to be received fromSecure Start: yes ducated regarding: Blood supply, probable bleeding of stoma Lack of sensory nerve endings/no feeling in stoma Removing Pouching System Inspecting barrier and skin for signs of leakage Assessing and caring for the stoma and peristomal skin [place] a new pouching system (measuring stoma, cutting, adherence) Selection of appropriate pouching systems and accessories (1-piece vs 2 piece; flat vs convex; paste vs ring) Supplies ordered: yes Questions answered: yes Teach-back methods are used. Social Service has been consulted for any possible discharge needs/NEW OSTOMY - Home Health Care will need to be arranged Impression: Pouch changed today. Patient placed in one piece flat pouch per spouse preference. (Anju) is ostomy nurse. She would like him to start with a one piece flat and be sent home with 2 piece flatpouches for later use. Patient observed pouch change via mirror and asked pertinent questions. She has enrolled him in [employer] and he would like to be enrolled in SS. HH will be arranged. Provided 2 piece flat Coloplast sample. CC will send additional samples. Demonstrated horizontal and vertical stealth belt samples with mufflers. Education: Plan of care discussed with: patient, and nurse Questions answered: yes Teach-back methods are used Recommendations We will continue to follow for teaching/learning needs. Follow all ostomy interventions as found in Care Plan. Please notify us for any ostomy/skin issues, or any questions/concerns. Follow all skin care interventions found in the Skin Care Prevention Pathway related to appropriateBraden score. Please notify front end driver if skin condition deteriorates, any other skin care issues arise, or any questions/concerns. Thank You. Sharmila MSN RN CWOCN Zone: [id number] ANT LEADER documented in this encounter OR Notes * Operative Report - Giovanni Baig MD - 12/24/2022 11:02 AM CST [place], [place] Patient: DANTE PERALTA CSN: [id number] : 1980 Provider: Giovanni Baig MD OPERATIVE REPORT DATE OF SERVICE: 12/24/2022 ANESTHESIA: General endotracheal tube anesthesia. 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 POSTOPERATIVE DIAGNOSES: Same PROCEDURES PERFORMED: Laparoscopic ileocolic resection with primary stapled xtmq-sp-jhie functional end-to-end anastomosis between the mid ileum and the ascending colon. Laparoscopic diverting end-sigmoid colostomy. INDICATIONS FOR PROCEDURE: In brief, patient is a 42-year-old male with severe Crohn's proctitis. MR enterography also revealed stricturing terminal ileal disease. He also recent colonoscopy which revealed a stricture at his ileocecal valve that required endoscopic dilation. He is therefore brought to the operating room today for ileocolic resection as well as diverting end-sigmoid colostomy for treatment of his proctitis. OPERATIVE FINDINGS: The patient had short segment of TI stricture with some mild upstream bowel dilation. This was resected and jiau-uh-zgzu functional end-to-end stapled anastomosis was performed between the mid ileum and the mid ascending colon. The sigmoid colon was also completely mobilized and an end-sigmoid colostomy was brought up at the preoperatively marked ostomy site for fecal diversion given the severe Crohn's proctitis. No other abnormalities were noted. DESCRIPTION OF PROCEDURE: The patient was identified in the preoperative holding area and brought back to the operating room.Bilateral sequential compression devices were placed on the patient's bilateral lower extremities for DVT prophylaxis. The patient was given IV antibiotics within 1 hour of skin incision for surgicalsite infection prophylaxis. General anesthesia was induced and the patient was endotracheally intubated. He was then placed in the operating room table in the lithotomy position. Saldaña catheter was placed with return of clear urine. Abdomen was prepped with 1% ChloraPrep and draped in the usual sterile fashion including Ioban. We began by making a 1 cm supraumbilical incision. This was carried down to the anterior rectus fascia. The anterior rectus fascia was then incised sharply and the peritoneal cavity was entered bluntly using a Alma clamp. We then placed a 10 mm trocar. Through this, abdomen was insufflated to 15 mmHg pneumoperitoneum with the operative findings as stated above. We placed a 12 mm trocar in the suprapubic midline, a 5 mm trocar in right lower quadrant, and a 5 mm trocar in the left lower quadrant. The patient was placed in the Trendelenburg position with his right side up. We then began by mobilizing the terminal ileum off the retroperitoneum in an inferior to superior fashion. We entered the plane between the terminal ileum and the retroperitoneum. Left gonadal vessels were identified and preserved in the retroperitoneum. We then dissected in this plane superiorly to the hepatic flexure, medially to over the duodenum, and laterally to the abdominal wall. Duodenum was identified and preserved in the retroperitoneum at all times during the dissection. We then mobilized the right colon laterally along the abdominal sidewall all the way up to the hepatic flexure. We then placed the patient in the reverse Trendelenburg position. Hepatic flexure was completely mobilized as well in this manner. The right colon and terminal ileum were completely mobilized off the retroperitoneum. Once we thought we had adequate mobility of the terminal ileum and right colon, we then turned our attention to the sigmoid colon. We mobilized the sigmoid colon in a lateral to medial fashion along the white line of Toldt from the pelvic inlet all the way up to the splenic flexure. We did this until we felt we had adequate mobility to create diverting end-sigmoid colostomy. We then divided the sigmoid colon using an Endo-ROSEMARY stapler with a purple load using 1 firing. Xiang divided some of the mesentery to the sigmoid colon using LigaSure device to make sure that it would reach to the anterior abdominal wall without tension. At this point, we then desufflated the abdomen and made an 8 cm extraction incision around the umbilicus. We the opened the anterior rectus f ascia for the entire length of the incision. We placed a large wound protector through this. We then delivered the terminal ileum and right colon through this incision. We divided the terminal ileum proximally at a junction where the bowel appeared to transition from normal bowel into severe Crohn's disease bowel. We divided the mid ascending colon using a ROSEMARY stapler with a blue load. All of the intervening mesentery was divided using the LigaSure device. An ileocolic resection was passed off the field as specimen. We then made antimesenteric enterotomies in the mid ileum and the mid ascending colon and created mfsf-sh-iidj functional end-to-end anastomosis using ROSEMARY-80 stapler with a blue load. Longitudinal staple lines were offset and the common enterotomy created by firing of the stapler was closed using another firing of the ROSEMARY-80 stapler with a blue load. 3-0 Vicryl sutures were placed at the crotch of the anastomosis and the transverse staple line was oversewn using 3-0 PDS suture in a running Lembert fashion. At the conclusion, the anastomosis appeared to be pink, patent, viable, and under no undue tension. We were satisfied with this result. We then returned the anastomosis gently back into the abdomen. We then made a quarter-sized circular incision at the perioperatively marked colostomy site. We then brought the end of the sigmoid colon up through this incision bryson farnsworth to make sure that it was oriented properly. We were satisfied with this result. We then closed the anterior rectus fascia for the extraction incision using #1 looped PDS suture in a running fashion. Subcutaneous tissues were irrigated and the skin was closed with 4-0 Biosyn and skin glue for all the trocar sites as well as the midline extraction incision. We then matured the colostomy to the skin using 3-0 Vicryl sutures. At the conclusion, the colostomy appeared to be pink, patent, viable, and under no undue tension. We were satisfied with this result. Colostomy appliance was appliedto the colostomy and dry dressings were applied to the wound. The patient was then awakened, extubat ed, and taken to the PACU extubated and in stable condition. SPECIMENS REMOVED: Ileocolic resection Colostomy trim IV FLUIDS: Please see Anesthesia record. ESTIMATED BLOOD LOSS: Please see Anesthesia record. URINE OUTPUT: Please see Anesthesia record. PACKS: None. DRAINS: None. IMPLANTS: None. COMPLICATIONS: None apparent. COUNTS: Sponge, instrument, and needle counts were reported as correct x2 at the end of the procedure. CONDITION ON DISCHARGE: Stable. The patient was taken to the PACU extubated and in stable condition. ATTESTATION OF PRESENCE: I was present and scrubbed throughout the entire procedure. Giovanni Baig MD ANT LEADER documented in this encounter Miscellaneous Notes * Care Plan - Lizzy Guillen RN - 12/27/2022 11:57 AM CST Dante Peralta will be discharged via ambulatory to home. Dante Peralta is accompanied by spouse and will be transported via private vehicle. PIVs removed Education completed Scripts delivered from pharmacy Pt walked out ANT LEADER * Care Plan - Florencia Samuels RN - 12/27/2022 6:46 AM CST Pt Aox4. Up indep - c/o pain medicated per mar Toradol x1 and tanya x1 - no c/o nausea - pt had 550ml output in ostomy this shift - VSS - at bedside this shift - pt slept well between care ANT LEADER * Care Plan - Pascual Gonzalez RN - 12/26/2022 6:40 PM CST Pt has had mild c/o pain today to abd, PRN's given and have been effective He has been up in room independently without problems Voided adequate UOP Ostomy +flatus, +stool Lap sites to abd c/d/I Diet-fiber control, tolerating well, denied nausea Ambulated the unit several times. VSS,afebrile ANT LEADER * Care Plan - Steffanie Vela LPN - 12/26/2022 5:39 AM CST Dante is A&Ox4 Complaints of pain managed per MAR. Ambulated halls with independently this evening Tolerating diet, no complaints of n/v +flatus, -stool in ostomy at bedside Call light within reach ANT LEADER * Care Plan - Steffanie Vela LPN - 12/25/2022 9:16 PM CST Images from the original note were not included. [facility] Adult Therapeutic Orders Protocol [facility] Approved by: [facility] - Medical Executive Committee Approval Date: 10/22/2021 ORDERS ARE ENTERED ???PER PROTOCOL?? Enter the protocol in the patient's electronic health record using smartphrase:.nursingtheraputicordersprotocol For adult inpatients with complaints of minor discomfort Nursing Orders: [id number] Ice Pack/Cold Therapy 20 minutes every 2 hours to affected area. [id number] Warm Compress/Heat to affected area 20 minutes every 8 hours to affected area. Medication Orders: wdmqcyijur-rusgqzp-jjpsdvziatwwwm (CEPACOL) lozenge. 1 each by mouth every 2 hours PRN for sore throat. Docusate sodium (COLACE) capsule 100 mg, Oral two times daily for stool softening except for patients with diagnosed or rule-out bowel obstruction. calcium carbonate (TUMS) chewable tablet. 400mg, Oral every 4 hours PRN for heartburn. simethicone (MYLICON) tablet. 160 mg Oral four times daily PRN for gas. Neomycin-Bacitracin Zn-Polymyxin (NEOSPORIN) topical ointment. 1 packet, One Time to affected area.For minor scraps/abrasions. Use cover dressing as needed. Polyvinyl alcohol-povidon(PF) (REFRESH CLASSIC) 1.4-0.6% ophthalmic solution. 1 drop to affected eye every 4 hours PRN for dry eye. Sodium chloride (OCEAN) 0.65% nasal solution. 2 sprays to affected nostril every 15 minutes PRN forcongestion. If symptoms persist or worsen contact provider for further orders ANT LEADER * Care Plan - Amanda Laughlin LMSW - 12/25/2022 12:14 PM CST KAYLA received a call from Petra with [employer] advising that pt was declined by them in error and they are able to accept the pt for [facility] due to his new ostomy--start date of Tuesday vs Tuesday (will need to confirm). KAYLA re-sent C order. Care Management will continue to follow. Amanda Laughlin LMSW (PRN) [phone] ANT LEADER * Care Plan - Steffanie Vela LPN - 12/25/2022 3:22 AM CST A&OX4 C/O Pain managed per MAR; no c/o n/v -BM; - Flatus; ostomy Fall precautions maintained Call light within reach at bedside ANT LEADER * Care Plan - Rachelle Ac RN - 12/24/2022 4:44 PM CST Care Management Initial Assessment Initial Discharge Planning Assessment completed. Discussed Care Management's role and Discharge planning. 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 Patient and live in [place], [place] CM will send referrals in [place]. Patient Discharge Planning Goal: home with [facility] Patient will potentially discharge to a SNF/NH? No Care Management visited with: patient and spouseSuzanne via in person. Prior to admission, patient resides at: own home. Prior to admission, living arrangements: spouse. Prior to admission, patient's functional level:independent; uses N/A for mobility; needs assistancewith iADLs: N/A Prior to admission, the patient has the following DME? N/A Services in the home: none Receives hemodialysis? No Emergency contact(s): Extended Emergency Contact Information Primary Emergency Contact: Sabas Peralta Mobile Relation: Spouse Insurance coverage verified: Payor: BLUE CROSS AND BLUE SHIELD / Plan: BCBS BLUE ACCESS/TRUE BLUE PPO / Product Type: PPO / Prescription coverage: yes Preferred Pharmacy verified: [id number] - [place], [place] - [address] Employment Status: employed Has VA Benefits: no PCP verified as: Shyla SERNA in with Dr. Wesley [place], [place] Patient has not had a stay at an acute care hospital in the last 30 days. Recent Falls?: Last Known Fall: No falls Plan for transportation at discharge: private vehicle. Care Management contact information provided. Care Management will continue to follow and assist asneeded. Rachelle Ac RN, BSN Catalytic Converter Operator Helper [id number] ANT LEADER * Care Plan - Katie Rosario LPN - 12/24/2022 3:58 PM CST UNDRESS and ASSESS for ALL ADMISSIONS and TRANSFERS On Admission On Transfer When off unit for greater than 2 hours Remove all existing dressings and devices and assess ENTIRE SKIN SURFACE (unless instructed by provider). on admission to Location(unit/floor)[facility] Maximino Score: Maximino Score: 23 (12/24/22 1400) 1 Undress and Assess performed by bedside coworker Katie and bedside coworker Effie 2 Does the patient have any skin breakdown? No Add an LDA for any wound for non-blanching pink/red or purple areas. Assess all high risk areas: heels, ankles, knees, hips, sacrum, coccyx, ischium, gluteal, occiput, spine and all skin folds Consult wound care services for all new pressure-related injuries If yes, location(s) and description of breakdown: Photograph wound, if applicable. 3 Is a specialty support surface in place? No If yes, which one?: (examples: Low air loss air mattress, Roho, etc...) Patients with impaired mobility, bariatric, malnourished, existing pressure injury, are high considerations for specialty support surface. 4 Is the patient a paraplegic/quadriplegic? No If yes AND if stable spine immediately place on specialty surface and consult wound care services. If unstable spine or new spinal injury, defer to provider before specialty surface use. 5 Is a medical claims processor present? yes If yes, which one?: abdominal binder Remove device/brace/splint to check skin underneath, obtain provider order if necessary. 6 Does the patient have a wound VAC (negative pressure wound therapy)? No If yes, please consult wound care services and switch VAC device to hospital VAC, if compatible. 7 Does the patient have an ostomy? Yes If yes, please consult wound care/ostomy services. (Add comment to consult if ostomy is problematic for patient.) 9 Was the Skin Prevention/ Pressure Injury Pathway initiated and appropriate interventions selected? Yes Use for prevention of skin issues due to friction, shear, pressure, mobility or moisture issues. 10 Was the Skin Care Treatment: Pressure Injury/Lower Extremity Ulcer Pathway initiated, and appropriate interventions selected? Yes Use for conditions such as: existing pressure injuries, yeast, deep tissue injury, incontinence associated dermatitis, lower extremity ulcers, and skin tears. 11 Wound care consult/ostomy care consult was initiated. Belongings: KRISTOPHER MILLIGAN Skin Care Injury Prevention and Treatment Protocol [facility] Approved by: [facility] - Medical Executive Committee Approval Date: 11/22/2019 ORDERS ARE ENTERED ???PER PROTOCOL?? Nursing Orders: When a patient age 18 years or older has: a documented Maximino score of 18 or less or a Maximino sub score of 2 or 1, or a documented condition on the problem list of: diabetes, malnutrition or cachectic, paralysis, spinal cord disorder/injuries or muscle/neurological disease, THEN, the RN will order the Skin Care/Pressure Injury Prevention Pathway and initiate all appropriate interventions as per the Maximino Risk Assessment Algorithm. When a patient age 18 years or older has a wound requiring treatment, the RN and Wound Care Nurses may order the Skin Care/Pressure Ulcer/Lower Extremity Ulcer Treatment Pathway and use appropriate treatments found in the Nursing Algorithm. The Wound Care Nurse may also order treatments found in the Wound Care Algorithm. ANT LEADER * Care Plan - Isabela Wesley RN - 12/24/2022 11:12 AM CST Potential for pain related to surgical/procedural intervention Interventions: Assess level of pain/comfort utilizing verbal/nonverbal pain scales; assess culturalor zoroastrianism indicators attached to pain; administer pain medications as prescribed; utilize non-pharmacologic pain control and comfort measures Expected Outcome: Patient demonstrates and reports adequate pain control Outcome Met: prn meds available, pain well controlled Potential for alteration in thermoregulatory, circulatory, respiratory fluid & electrolyte status Interventions: Perform ongoing physical assessment; maintenance of airway or mechanical ventilation; monitor level of consciousness; initiate safety measures; observe patient???s respiratory status and oxygen saturation; obtain measurements of ongoing hemodynamic parameters, cardiac rhythm, and temperature; monitor intake and output; inspect wound dressings and/or drain output; perform prescribedtherapeutic regimens, treatments and tests; document and/or communicate care given Expected Outcome: Patient will maintain functional status compatible with preoperative status Outcome Met: vss, normothermic, patient able to maintain O2 sats, no bleeding or hematoma from surgical site ANT LEADER * Care Plan - Mya Denson RN - 12/24/2022 6:38 AM CST Knowledge deficit related to procedure/environment Interventions: Assess learning needs and willingness to learn; give clear, concise explanations of the environment and sequence of events surrounding the periop experience; address patient/family questions and concerns; provide teaching as indicated, provide teaching related to postoperative pain assessment utilizing pain scales Expected Outcome: Patient verbalizes or demonstrates awareness/understanding of surgery and perioperative experience Outcome Met: Pt teaching done, questions answered, pt understands surgical process. ANT LEADER documented in this encounter Plan of Treatment Upcoming Encounters Date Type Department Care Team (Late st Contact Info) Description 01/14/2025 12:40 PM CDT Office Visit [facility] [id number] [place] [address] [address] [phone] [place] [id number] [facility] [address] [phone] documented as of this encounter Procedures Procedure Name Priority Date/Time Associated Diagnosis Comments CBC WITH DIFFERENTIAL Routine 12/27/2022 7:26 AM MIGRANT LEADER BASIC METABOLIC PANEL Routine 12/27/2022 7:26 AM MIGRANT LEADER CBC WITH DIFFERENTIAL Routine 12/26/2022 5:08 AM MIGRANT LEADER BASIC METABOLIC PANEL Routine 12/26/2022 5:08 AM MIGRANT LEADER CBC WITH DIFFERENTIAL Routine 12/25/2022 5:17 AM MIGRANT LEADER BASIC METABOLIC PANEL Routine 12/25/2022 5:17 AM MIGRANT LEADER PATHOLOGY Pathology 12/24/2022 9:43 AM MIGRANT LEADER Crohn's disease of large intestine with other complication IR INJECTION Routine 12/24/2022 9:38 AM MIGRANT LEADER VERIFICATION BLOOD GROUP Stat 12/24/2022 7:20 AM MIGRANT LEADER Encounter for blood typing NC LAPAROSCOPY SURG COLOSTOMY/SKN LVL CECOSTOMY 12/24/2022 7:15 AM MIGRANT LEADER Crohn's disease of large intestine with other complication NC LAPS COLECTOMY PRTL W/RMVL TERMINAL ILEUM 12/24/2022 7:15 AM MIGRANT LEADER Crohn's disease of large intestine with other complication PREPARE RED BLOOD CELLS Routine 12/24/2022 12:07 AM MIGRANT LEADER PREPARE RED BLOOD CELLS Routine 12/24/2022 12:07 AM MIGRANT LEADER documented in this encounter Results * (ABNORMAL) BASIC METABOLIC PANEL (12/27/2022 7:26 AM MIGRANT LEADER) Pathologist [facility] SODIUM 140 136 - 145 mmol/L 12/27/2022 8:15 AM MIGRANT LEADER [facility] LABORATORY SERVICES - [facility] POTASSIUM 4.0 3.5 - 5.0 mmol/L 12/27/2022 8:15 AM MIGRANT LEADER [facility] LABORATORY SERVICES - [facility] CHLORIDE 106 98 - 107 mmol/L 12/27/2022 8:15 AM MIGRANT LEADER [facility] - [facility] CO2 26 22 - 29 mmol/L 12/27/2022 8:15 AM MIGRANT LEADER [facility] - [facility] CALCIUM 8.8 8.6 - 10.2 mg/dL 12/27/2022 8:15 AM MIGRANT LEADER [facility] LABORATORY SERVICES - . [facility] BUN 10 6 - 20 mg/dL 12/27/2022 8:15 AM MIGRANT LEADER [facility] LABORATORY SERVICES - . [facility] CREATININE 0.95 0.67 - 1.17 mg/dL 12/27/2022 8:15 AM MIGRANT LEADER [employer] [facility]ATORY SERVICES - [facility] GLUCOSE 100(H) 74 - 99 mg/dL 12/27/2022 8:15 AM MIGRANT LEADER iodine LABORATORY SERVICES - [facility] GFR >60 >=60 mL/min/1.7 3 sq meter 12/27/2022 8:15 AM [facility] [employer] [facility] Comment:eGFR calculated with 2020 CKD-EPI equation. Vegetarian diet, extremely high or low muscle mass, and may affect results. Cystatin C with Glomerular Filtration Rate is a suitable alternative for these patients. ANION GAP 8 8 - 16 mmol/L 12/27/2022 8:15 AM [facility] [employer] [facility] Blood Venipuncture / Unknown 12/27/2022 7:26 AM MIGRANT LEADER 12/27/2022 7:34 AM MIGRANT LEADER Giovanni Baig MD CHEMISTRY ORDERABL ES [facility] [employer] [facility] CLIA# [id number] [address] [address] * (ABNORMAL) CBC WITH DIFFERENTIAL (12/27/2022 7:26 AM MIGRANT LEADER) WBC 6.9 4.0 - 9.8 K/uL 12/27/2022 7:53 AM [facility] LABORATORY [facility] RBC 4.04(L) 4.50 - 5.40 M/uL 12/27/2022 7:53 AM [facility] LABORATORY [facility] HEMOGLOBIN 11.2(L) 13.6 - 16.5 g/dL 12/27/2022 7:53 AM [facility] [employer] [facility] HEMATOCRIT 35.5(L) 40.0 - 48.0 % 12/27/2022 7:53 AM [facility] iodine LABORATORY [facility] MCV 87.9 82.0 - 99.0 fL 12/27/2022 7:53 AM [facility] [employer] [facility] MCH 27.7 27.2 - 32.6 pg 12/27/2022 7:53 AM [facility] [employer] [facility] MCHC 31.5 31.5 - 35.5 g/dL 12/27/2022 7:53 AM [facility] RDW 13.8 11.5 - 14.5 % 12/27/2022 7:53 AM [facility] RDW-STDEV 44.3 37.1 - 48.7 fL 12/27/2022 7:53 AM MIGRANT LEADER iodine [facility] PLATELETS 228 140 - 350 K/uL 12/27/2022 7:53 AM MIGRANT LEADER iodine [facility] - [facility] MPV 9.2(L) 9.3 - 12.4 fL 12/27/2022 7:53 AM [facility] NEUTROPHILS 72 % 12/27/2022 7:53 AM [facility] LYMPHOCYTES 14 % 12/27/2022 7:53 AM [facility] MONOCYTES 10 % 12/27/2022 7:53 AM [facility] EOSINOPHILS 4 % 12/27/2022 7:53 AM [facility] BASOPHILS 0 % 12/27/2022 7:53 AM [facility] [facility] - . [facility] IMMATURE GRANULOCYTES 0 % 12/27/2022 7:53 AM [facility] NEUTROPHIL ABSOLUTE 4.90 1.90 - 7.00 K/uL 12/27/2022 7:53 AM [employer] [facility] - [facility] LYMPHOCYTE ABSOLUTE 0.95 0.70 - 4.50 K/uL 12/27/2022 7:53 AM [facility] [facility] MONOCYTE ABSOLUTE 0.71 0.10 - 1.30 K/uL 12/27/2022 7:53 AM [employer] [facility] - [facility] EOSINOPHIL ABSOLUTE 0.24 0.00 - 0.70 K/uL 12/27/2022 7:53 AM [employer] [facility] BASOPHILS ABSOLUTE 0.03 0.00 - 0.20 K/uL 12/27/2022 7:53 AM [employer] [facility] - . [facility] IMMATURE GRANULOCYTES ABSOLUTE 0.02 0.00 - 0.03 K/uL 12/27/2022 7:53 AM [employer] [facility] Blood Venipuncture / Unknown 12/27/2022 7:26 AM MIGRANT LEADER 12/27/2022 7:34 AM MIGRANT LEADER Giovanni Baig MD HEMATOLOGY ORDERAB LES [facility] LABORATORY SERVICES - [facility] CLIA# [id number] [place] [address] * (ABNORMAL) BASIC METABOLIC PANEL (12/26/2022 5:08 AM MIGRANT LEADER) SODIUM 140 136 - 145 mmol/L 12/26/2022 5:53 AM [facility] LAB[facility] - [facility] POTASSIUM 4.2 3.5 - 5.0 mmol/L 12/26/2022 5:53 AM [facility] iodine LABORATORY SERVICES - . [facility] CHLORIDE 108(H) 98 - 107 mmol/L 12/26/2022 5:53 AM [facility] LAB[facility] - . [facility] CO2 24 22 - 29 mmol/L 12/26/2022 5:53 AM [facility] iodine LABORATORY SERVICES - . [facility] CALCIUM 8.5(L) 8.6 - 10.2 mg/dL 12/26/2022 5:53 AM [facility] iodine LABORATORY [facility] - . [facility] BUN 14 6 - 20 mg/dL 12/26/2022 5:53 AM [facility] iodine LABORATORY [facility] - . [facility] CREATININE 1.12 0.67 - 1.17 mg/dL 12/26/2022 5:53 AM [facility] iodine LABORATORY [facility] - . [facility] GLUCOSE 95 74 - 99 mg/dL 12/26/2022 5:53 AM [facility] iodine LABORATORY SERVICES - . [facility] GFR >60 >=60 mL/min/1.7 3 sq meter 12/26/2022 5:53 AM [facility]ATORY SERVICES - [facility] Comment:eGFR calculated with 2020 CKD-EPI equation. Vegetarian diet, extremely high or low muscle mass, and may affect results. Cystatin C with Glomerular Filtration Rate is a suitable alternative for these patients. ANION GAP 8 8 - 16 mmol/L 12/26/2022 5:53 AM [facility] LABORATORY SERVICES - . [facility] Blood Venipuncture / Unknown 12/26/2022 5:08 AM MIGRANT LEADER 12/26/2022 5:14 AM MIGRANT LEADER Giovanni Baig MD CHEMISTRY ORDERABL ES [facility] CLIA# [id number] [address] [place] [address] * (ABNORMAL) CBC WITH DIFFERENTIAL (12/26/2022 5:08 AM MIGRANT LEADER) [facility] WBC 7.3 4.0 - 9.8 K/uL 12/26/2022 5:26 AM MIGRANT LEADER iodine [facility] RBC 3.96(L) 4.50 - 5.40 M/uL 12/26/2022 5:26 AM MIGRANT LEADER iodine [facility] - [facility] HEMOGLOBIN 10.8(L) 13.6 - 16.5 g/dL 12/26/2022 5:26 AM MIGRANT LEADER iodine [facility] - [facility] HEMATOCRIT 34.7(L) 40.0 - 48.0 % 12/26/2022 5:26 AM [facility]ATORY SERVICES - [facility] MCV 87.6 82.0 - 99.0 fL 12/26/2022 5:26 AM [employer] [facility] SERVICES - [facility] MCH 27.3 27.2 - 32.6 pg 12/26/2022 5:26 AM [facility] - [facility] MCHC 31.1(L) 31.5 - 35.5 g/dL 12/26/2022 5:26 AM [facility] - [facility] RDW 13.8 11.5 - 14.5 % 12/26/2022 5:26 AM [employer] [facility] - [facility] RDW-STDEV 43.6 37.1 - 48.7 fL 12/26/2022 5:26 AM MIGRANT LEADER iodine [facility]ATORY [facility] - [facility] PLATELETS 221 140 - 350 K/uL 12/26/2022 5:26 AM MIGRANT LEADER [facility] - [facility] MPV 8.9(L) 9.3 - 12.4 fL 12/26/2022 5:26 AM MIGRANT LEADER iodine [facility] - [facility] NEUTROPHILS 65 % 12/26/2022 5:26 AM MIGRANT LEADER iodine [facility] - [facility] LYMPHOCYTES 22 % 12/26/2022 5:26 AM [facility] - [facility] MONOCYTES 10 % 12/26/2022 5:26 AM [employer] [facility] - [facility] EOSINOPHILS 2 % 12/26/2022 5:26 AM [facility] LABORATORY SERVICES - [facility] BASOPHILS 0 % 12/26/2022 5:26 AM [facility]ATORY SERVICES - [facility] IMMATURE GRANULOCYTES 0 % 12/26/2022 5:26 AM [facility]ATORY SERVICES - [facility] NEUTROPHIL ABSOLUTE 4.76 1.90 - 7.00 K/uL 12/26/2022 5:26 AM [facility] iodine LAB[facility]ATORY SERVICES - [facility] LYMPHOCYTE ABSOLUTE 1.61 0.70 - 4.50 K/uL 12/26/2022 5:26 AM [facility] iodine LAB[facility]ATORY SERVICES - [facility] MONOCYTE ABSOLUTE 0.71 0.10 - 1.30 K/uL 12/26/2022 5:26 AM [facility] iodine LAB[facility]ATORY SERVICES - [facility] EOSINOPHIL ABSOLUTE 0.17 0.00 - 0.70 K/uL 12/26/2022 5:26 AM MIGRANT LEADER iodine [facility]ORY SERVICES - [facility] BASOPHILS ABSOLUTE 0.03 0.00 - 0.20 K/uL 12/26/2022 5:26 AM [facility] LAB[facility]ATORY SERVICES - [facility] IMMATURE GRANULOCYTES ABSOLUTE 0.02 0.00 - 0.03 K/uL 12/26/2022 5:26 AM [facility] iodine [facility]ORY SERVICES - [facility] Blood Venipuncture / Unknown 12/26/2022 5:08 AM MIGRANT LEADER 12/26/2022 5:14 AM MIGRANT LEADER Giovanni Baig MD HEMATOLOGY ORDERAB LES [employer] SERVICES - [facility] CLIA# [id number] [address] [facility] [place] [address] * (ABNORMAL) BASIC METABOLIC PANEL (12/25/2022 5:17 AM MIGRANT LEADER) Pathologist [facility] SODIUM 139 136 - 145 mmol/L 12/25/2022 6:15 AM [facility] [employer] SERVICES - [facility] POTASSIUM 4.3 3.5 - 5.0 mmol/L 12/25/2022 6:15 AM [facility] [employer] SERVICES - [facility] CHLORIDE 107 98 - 107 mmol/L 12/25/2022 6:15 AM MIGRANT LEADER [employer] [facility] CO2 24 22 - 29 mmol/L 12/25/2022 6:15 AM [facility] CALCIUM 9.0 8.6 - 10.2 mg/dL 12/25/2022 6:15 AM [facility] BUN 11 6 - 20 mg/dL 12/25/2022 6:15 AM [facility] CREATININE 1.13 0.67 - 1.17 mg/dL 12/25/2022 6:15 AM [facility] GLUCOSE 117(H) 74 - 99 mg/dL 12/25/2022 6:15 AM [facility] GFR >60 >=60 mL/min/1.7 3 sq meter 12/25/2022 6:15 AM [facility] LABORATORY [facility] Comment:eGFR calculated with 2020 CKD-EPI equation. Vegetarian diet, extremely high or low muscle mass, and may affect results. Cystatin C with Glomerular Filtration Rate is a suitable alternative for these patients. ANION GAP 8 8 - 16 mmol/L 12/25/2022 6:15 AM [facility] [employer] [facility] Blood Venipuncture / Unknown 12/25/2022 5:17 AM MIGRANT LEADER 12/25/2022 5:34 AM MIGRANT LEADER Giovanni Baig MD CHEMISTRY ORDERABL ES [facility]# [id number] [address] [facility] [place] [address] * (ABNORMAL) CBC WITH DIFFERENTIAL (12/25/2022 5:17 AM MIGRANT LEADER) WBC 11.3(H) 4.0 - 9.8 K/uL 12/25/2022 5:51 AM [facility] RBC 4.21(L) 4.50 - 5.40 M/uL 12/25/2022 5:51 AM [facility] HEMOGLOBIN 11.6(L) 13.6 - 16.5 g/dL 12/25/2022 5:51 AM MIGRANT LEADER [employer] LAB[facility]ATORY SERVICES - [facility] HEMATOCRIT 36.7(L) 40.0 - 48.0 % 12/25/2022 5:51 AM MIGRANT LEADER [facility] MCV 87.2 82.0 - 99.0 fL 12/25/2022 5:51 AM MIGRANT LEADER [employer] [facility] - [facility] MCH 27.6 27.2 - 32.6 pg 12/25/2022 5:51 AM MIGRANT LEADER [facility] MCHC 31.6 31.5 - 35.5 g/dL 12/25/2022 5:51 AM MIGRANT LEADER [employer] [facility] - [facility] RDW 13.5 11.5 - 14.5 % 12/25/2022 5:51 AM MIGRANT LEADER [facility] RDW-STDEV 42.1 37.1 - 48.7 fL 12/25/2022 5:51 AM MIGRANT LEADER [employer] [facility] - [facility] PLATELETS 283 140 - 350 K/uL 12/25/2022 5:51 AM MIGRANT LEADER [employer] [facility] - [facility] MPV 9.2(L) 9.3 - 12.4 fL 12/25/2022 5:51 AM MIGRANT LEADER [employer] [facility] - [facility] NEUTROPHILS 80 % 12/25/2022 5:51 AM MIGRANT LEADER [employer] [facility] LYMPHOCYTES 11 % 12/25/2022 5:51 AM MIGRANT LEADER [employer] [facility] MONOCYTES 9 % 12/25/2022 5:51 AM MIGRANT LEADER [employer] [facility] - [facility] EOSINOPHILS 0 % 12/25/2022 5:51 AM MIGRANT LEADER [employer] [facility] BASOPHILS 0 % 12/25/2022 5:51 AM MIGRANT LEADER [employer] [facility] - [facility] IMMATURE GRANULOCYTES 0 % 12/25/2022 5:51 AM MIGRANT LEADER [facility] NEUTROPHIL ABSOLUTE 8.99(H) 1.90 - 7.00 K/uL 12/25/2022 5:51 AM MIGRANT LEADER [facility] LYMPHOCYTE ABSOLUTE 1.21 0.70 - 4.50 K/uL 12/25/2022 5:51 AM MIGRANT LEADER [employer] [facility] - [facility] MONOCYTE ABSOLUTE 1.02 0.10 - 1.30 K/uL 12/25/2022 5:51 AM MIGRANT LEADER [facility] LABORATORY [facility] EOSINOPHIL ABSOLUTE 0.00 0.00 - 0.70 K/uL 12/25/2022 5:51 AM MIGRANT LEADER [facility] BASOPHILS ABSOLUTE 0.01 0.00 - 0.20 K/uL 12/25/2022 5:51 AM MIGRANT LEADER [facility] IMMATURE GRANULOCYTES ABSOLUTE 0.04(H) 0.00 - 0.03 K/uL 12/25/2022 5:51 AM MIGRANT LEADER [facility] Blood Venipuncture / Unknown 12/25/2022 5:17 AM MIGRANT LEADER 12/25/2022 5:35 AM MIGRANT LEADER Giovanni Baig MD HEMATOLOGY ORDERAB LES [facility]# [id number] [address] [place] [address] * PATHOLOGY (12/24/2022 9:43 AM MIGRANT LEADER) CASE REPORT Surgical Pathology Report ? Case: [id number] ? Authorizing Provider: ??Giovanni Baig MD ?Collected: ? 12/24/2022 09:43 AM ? Ordering Location: ? [facility] ?Received: ?12/24/2022 11:48 AM ? Operating Room ? Pathologist: ? Nurys Pak MD ? Specimens: ?? A) - Terminal Ileum, Terminal ileum and cecum ? B) - Colon, Colostomy trim ? 3 7:49 AM [facility] [employer] [facility] FINAL DIAGNOSIS Colon, cecum, appendix and small intestine, terminal ileum, ileocolic resection: - Chronic active ileitis, ranging from mild to severe, with focal ulceration - Negative for dysplasia - Viable noninflamed margins - Appendix with serosal adhesions and minimal acute serositis - 4 lymph nodes negative for malignancy with reactive follicular lymphoid hyperplasia Colon, colostomy trim, diverting colostomy: - Submucosal edema 3 7:49 AM [facility] [employer] [facility] S DESCRIPTION Two containers are received labeled Dante Peralta . Received in the first container additionally labeled terminal ileum and cecum is a 6 cm long by 8.5 cm circumference segment of colon continuous with a 23 cm long by 6 cm circumference segment of terminal ileum. The specimen is received closed with both ends stapled. The serosal surface is pink-hayes and glistening. The included appendix is 6.5 cm in length by 0.7 cm in diameter. The attached mesentery is 25 x 6 x 3 cm. The bowel wall ranges in thickness from 0.2 to 0.6 cm. The ileocecal valve is flattened, and the mucosa is ulcerated. A second area of ulceration is identified on the ileum mucosa, 9 cm in length. This area is 9 cm from the ileocecal valve and 3.5 cm from the ileum margin. The remaining mucosa is pink-hayes to red-hayes and velvety with normal folds. No masses are identified. The appendix has a smooth pink-hayes serosal surface. The lumen ranges from pinpoint to 0.2 cm. The wall ranges in thickness from 0.2 to 0.4 cm. Neither a mass nor a fecalith are identified. The attached adipose tissue is sectioned for lymph nodes. Beef Tagger sections are submitted in cassettes as follows: A1 ileum margin; A2 distal margin; A3 ileocecal valve; A4 appendix; A5 through A7 ileum from distal to proximal; A8 lymph nodes. Received in the second container additionally labeled colostomy trim is a 2.5 cm long by 2.5 cm diameter segment of bowel received closed with 1 end stapled. The serosal surface is pink-hayes and glistening. The wall has a uniform thickness of 0.2 cm. The mucosal surface is pink-hayes and velvety with normal folds. No distinct lesions are identified. A longitudinal section of the complete length of the specimen is submitted in cassette B1. KA 3 7:49 AM [facility] MICROSCOPIC DESCRIPTION The slides are labeled [id number] and Dante Peralta. Sections from ileum margin show viable small intestine without without active colitis. Sections from the distal margin show viable colon without active colitis. Sections from the ileocecal valve colon show small intestine with reactive lymphoid aggregates and moderate active colitis with cryptitis, crypt abscess formation and increased acute inflammation in the lamina propria. There is focal overlying ulceration. Chronic architectural changes with branching glands and focal foveolar metaplasia are seen. No dysplasia or malignancy is identified. Sections of the appendix show serosal adhesions with acute inflammation. The lumen is dilated and contains fecal material. Additional sections of the ileum show ulceration of the mucosa with acute inflammation and active colitis. No dysplasia or malignancy is seen in any of the sections. Sections from the lymph nodes show total of 4 lymph nodes with reactive lymphoid hyperplasia and sinus histiocytosis. Sections from the colostomy show viable colon with submucosal edema 3 7:49 AM [facility] PROCED[facility] 1: ILEOCOLECTOMY LAPAROSCOPIC 2: COLOSTOMY LAPAROSCOPIC 3 7:49 AM [facility] CLINICAL INFORMATION Crohn's disease of large intestine with other complication [K50.118] K50.118-Crohn's disease of large intestine with other complication 3 7:49 AM [facility] COMMENT Special stain, immunohistochemical, and/or in situ hybridization results are interpreted with controls that demonstrate appropriate staining reactions. Note on use of immunohistochemistry reagents and in situ hybridization probes: These tests were developed and their performance characteristics determined by [facility], Department of Laboratory Medicine. It has not been cleared or approved by the U.S. Food and Drug Administration. The FDA has determined that such clearance or approval is not necessary. The test is used for clinical purposes. It should not be regarded as investigational or for research. This laboratory is certified to perform high complexity testing. Frozen section/operating room consultation, gross examination and dissection, and case sign out may have been performed in part or completely in the following laboratories: [facility], CLIA #[id number] [address] [place] [address] [facility], CLIA #[id number] [address] [place] [address] [facility], CLIA #[id number] [place] [address] This report was created with the Measy voice-activated dictation system. Inherent to this system is the possibility of syntax, grammar, punctuation and other errors that could impact the interpretation of the report. If there are interpretative questions about aspects of this report, please contact the performing pathologist. 3 7:49 AM [facility] Tissue (Terminal Ileum) Collection / Unknown 12/24/2022 9:43 AM MIGRANT LEADER 12/24/2022 11:48 AM MIGRANT LEADER Tissue specimen (specimen) SPECIMEN FROM COLON / Unknown 12/24/2022 10:46 AM MIGRANT LEADER 12/24/2022 11:48 AM MIGRANT LEADER Giovanni Baig MD PATHOLOGY/CYTOLOGY ORDERABLES [facility] CLIA# [id number] [address] [place] [address] * IR INJECTION (12/24/2022 9:38 AM MIGRANT LEADER) Narrative 12/24/2022 9:38 AM MIGRANT LEADER Order information only. ??Exam was auto-finalized. ?? Dante Franco MD IR ORDERABLES * VERIFICATION BLOOD GROUP (12/24/2022 7:20 AM MIGRANT LEADER) ABO GROUP A 12/24/2022 8:03 AM MIGRANT LEADER [facility] RH (D) TYPE Negative 12/24/2022 8:03 AM MIGRANT LEADER [facility] Blood Venipuncture / Unknown 12/24/2022 7:20 AM MIGRANT LEADER 12/24/2022 7:29 AM MIGRANT LEADER Mariel Moses MD BLOOD BANK ORD ERABLES [facility] [id number] [address] [place] [address] * PREPARE RED BLOOD CELLS (12/24/2022 12:07 AM MIGRANT LEADER) COMPONENT TYPE [id number] [facility] COMPONENT IDENTIFICATION [id number] [facility] UNIT ABO A [facility] UN[facility] RH NEG [facility] CROSSMATCH Compatible [facility] COMPONENT STATUS Returned [facility] COMPONENT EXPIRATION DATE/TIME [id number] [facility] COMPONENT CODING SYSTEM 0600 [facility] 12/24/2022 12:0 7 AM MIGRANT LEADER Giovanni Baig MD LAB TRANSFUSION OR DERABLES [facility] CLIA# [id number] [address] [place] [address] * PREPARE RED BLOOD CELLS (12/24/2022 12:07 AM MIGRANT LEADER) COMPONENT TYPE [id number] [facility] COMPONENT IDENTIFICATION [id number] [facility] UNIT ABO A [facility] UN[facility] RH NEG [facility] CROSSMATCH Compatible [facility] COMPONENT STATUS Returned [facility] COMPONENT EXPIRATION DATE/TIME [id number] [facility] COMPONENT CODING SYSTEM 0600 [facility] 12/24/2022 12:0 7 AM MIGRANT LEADER Giovanni Baig MD LAB TRANSFUSION OR DERABLES Performing Organization Address [facility] Co de Phone Number [facility] CLIA# [id number] [address] [place] [address] documented in this encounter Visit Diagnoses Diagnosis Crohn's disease of both small and large intestine- Primary Encounter for blood typing Crohn's disease of both small and large intestine with other complication Crohn's disease of large intestine with other complication documented in this encounter Administered Medications Inactive Administered Medications - up to 3 most recent administrations Medication Order MAR Action Action Date Dose Rate Site acetaminophen (TYLENOL) tablet 1,000 mg 1,000 mg, Oral, PRE-PROCEDURE ONCE, 1 dose, Starting on Tue12/24/22 at 0551, Until Tue12/24/22 at 0709, Routine, Pre-op Given 12/24/2022 7:09 AM MIGRANT LEADER 1,000 mg acetaminophen (TYLENOL) tablet 650 mg 650 mg, Oral, EVERY 6 HOURS, First dose on Tue12/24/22 at 1315, Until Discontinued, Routine, Post-op - Floor Given 12/27/2022 9:29 AM MIGRANT LEADER 650 mg Given 12/27/2022 5:35 AM MIGRANT LEADER 650 mg Given 12/26/2022 8:37 PM MIGRANT LEADER 650 mg allopurinoL (ZYLOPRIM) tablet 100 mg 100 mg, Oral, DAILY, First dose on Tue12/24/22 at 1315, Until Discontinued, Routine, Previous Med: allopurinoL (ZYLOPRIM) 100 mg tablet - Orig Sig - Take 100 mg by mouth daily. Given 12/27/2022 9:29 AM MIGRANT LEADER 100 mg Given 12/26/2022 9:35 AM MIGRANT LEADER 100 mg alvimopan (ENTEREG) capsule 12 mg 12 mg, Oral, PRE-PROCEDURE ONCE, 1 dose, Starting on Tue12/24/22 at 0551, Until Tue12/24/22 at 0709, Pre-Operative, Pre-op, The ordering provider acknowledges review of the [facility] education on the benefits and risks of alvimopan? (see reference links above): Yes Given 12/24/2022 7:09 AM MIGRANT LEADER 12 mg alvimopan (ENTEREG) capsule 12 mg 12 mg, Oral, TWO TIMES DAILY, 14 doses, First dose on Tue12/25/22 at 0900, Last dose on Tue12/31/22 at 2100, Routine, Post-op - Floor, The ordering provider acknowledges review of the [facility] education on the benefits and risks of alvimopan? (see reference links above): Yes Given 12/26/2022 8:35 PM MIGRANT LEADER 12 mg Given 12/26/2022 9:36 AM MIGRANT LEADER 12 mg Given 12/25/2022 10:21 PM MIGRANT LEADER 12 mg celecoxib (CeleBREX) capsule 400 mg 400 mg, Oral, PRE-PROCEDURE ONCE, 1 dose, Starting on Tue12/24/22 at 0551, Until Tue12/24/22 at 0709, Routine, Pre-op Given 12/24/2022 7:09 AM MIGRANT LEADER 400 mg famotidine (PEPCID) tablet 20 mg 20 mg, Oral, TWO TIMES DAILY, First dose on Tue12/24/22 at 1315, Until Discontinued, Routine, Post-op - Floor Given 12/27/2022 9:29 AM MIGRANT LEADER 20 mg Given 12/26/2022 8:35 PM MIGRANT LEADER 20 mg Given 12/26/2022 9:36 AM MIGRANT LEADER 20 mg fentaNYL PF (SUBLIMAZE) 50 mcg/mL injection 25 mcg 25 mcg, IV, POST-PROCEDURE Q 3 MINUTES PRN, 5 doses, Starting on Tue12/24/22 at 0605, Until Tue12/24/22 at 1308, Pain, Routine, PACU Given 12/24/2022 12:29 PM MIGRANT LEADER 25 mcg Given 12/24/2022 12:08 PM MIGRANT LEADER 25 mcg Given 12/24/2022 11:54 AM MIGRANT LEADER 25 mcg folic acid (FOLVITE) tablet 1 mg 1 mg, Oral, DAILY, First dose on Tue12/24/22 at 1315, Until Discontinued, Routine, Previous Med: folic acid (FOLVITE) 1 mg tablet - Orig Sig - Take 1 mg by mouth daily. Given 12/27/2022 9:29 AM MIGRANT LEADER 1 mg Given 12/26/2022 9:36 AM MIGRANT LEADER 1 mg Given 12/25/2022 9:44 AM MIGRANT LEADER 1 mg gabapentin (NEURONTIN) capsule 100 mg 100 mg, Oral, EVERY 8 HOURS, First dose on Tue12/24/22 at 1315, Until Discontinued, Routine, Post-op - Floor Given 12/27/2022 5:35 AM MIGRANT LEADER 100 mg Given 12/26/2022 8:35 PM MIGRANT LEADER 100 mg Given 12/26/2022 12:37 PM MIGRANT LEADER 100 mg guaiFENesin (ROBITUSSIN) 100 mg/5 mL oral solution 200 mg 200 mg, Oral, EVERY 4 HOURS PRN, Starting on Tue12/26/22 at 1520, Until Tue12/27/22 at 1505, Cough, Routine Given 12/26/2022 8:41 PM MIGRANT LEADER 200 mg heparin injection 5,000 Units 5,000 Units, subCUT, PRE-PROCEDURE ONCE, 1 dose, Starting on Tue12/24/22 at 0551, Until Tue12/24/22 at 0710, Pre-Operative, Pre-op Given 12/24/2022 7:10 AM MIGRANT LEADER 5,000 Units Thigh, Right heparin injection 5,000 Units 5,000 Units, subCUT, EVERY 8 HOURS, First dose on Tue12/25/22 at 0500, Until Discontinued, Routine, Post-op - Floor Given 12/27/2022 5:35 AM MIGRANT LEADER 5,000 Units Arm, Left Upper Given 12/26/2022 8:35 PM MIGRANT LEADER 5,000 Units A bdomen, Left Lower Quadrant Given 12/26/2022 12:38 PM MIGRANT LEADER 5,000 Units Abdominal Tissue HYDROmorphone (DILAUDID) 2 mg/mL injection 0.3 mg 0.3 mg, IV, EVERY 4 HOURS PRN, Starting on Tue12/24/22 at 1307, Until Tue12/27/22 at 1505, Pain (See admin instructions), Routine, Post-op - Floor Given 12/24/2022 1:27 PM MIGRANT LEADER 0.3 mg ketorolac (TORADOL) injection 10 mg 10 mg, IV, EVERY 6 HOURS PRN, Starting on 12/25/22 at 0000, Until Tue12/27/22 at 1505, Other (See Comment), For pain secondary to inflammation, Routine, Post-op - Floor Given 12/27/2022 9:30 AM MIGRANT LEADER 10 mg Given 12/27/2022 12:00 AM MIGRANT LEADER 10 mg Given 12/26/2022 3:31 PM MIGRANT LEADER 10 mg magnesium oxide (MAG-OX) tablet 400 mg 400 mg, Oral, DAILY, First dose on Tue12/24/22 at 1315, Until Discontinued, Routine, Post-op - Floor Given 12/27/2022 9:34 AM MIGRANT LEADER 400 mg Given 12/26/2022 9:40 AM MIGRANT LEADER 400 mg Given 12/25/2022 9:44 AM MIGRANT LEADER 400 mg menthol (HALLS COUGH DROP) lozenge 5.8 mg 5.8 mg (1 Lozenge), Mouth/Throat, EVERY 2 HOURS PRN, Starting on 12/25/22 at 2116, Until Tue12/27/22 at 1505, Sore Throat, Routine Given 12/26/2022 5:52 AM MIGRANT LEADER 5.8 mg Given 12/26/2022 1:00 AM MIGRANT LEADER 5.8 mg Given 12/25/2022 10:31 PM MIGRANT LEADER 5.8 mg naloxone (NARCAN) 0.4 mg/mL injection 0.1 mg 0.1 mg, IV, SEE ADMIN INSTRUCTIONS, Starting on Tue12/24/22 at 0605, Until Tue12/27/22 at 1505, Routine, PACU ondansetron (ZOFRAN ODT) tablet 8 mg 8 mg, Oral, PRE-PROCEDURE ONCE, 1 dose, Starting on Tue12/24/22 at 0551, Until Tue12/24/22 at 0709, Routine, Pre-op Given 12/24/2022 7:09 AM MIGRANT LEADER 8 mg oxyCODONE (ROXICODONE) tablet 10 mg 10 mg, Oral, EVERY 4 HOURS PRN, Starting on Tue12/24/22 at 1307, Until Tue12/27/22 at 1505, Pain (See admin instructions), Routine, Post-op - Floor Given 12/25/2022 6:20 PM MIGRANT LEADER 10 mg Given 12/25/2022 1:44 PM MIGRANT LEADER 10 mg Given 12/25/2022 9:43 AM MIGRANT LEADER 10 mg oxyCODONE (ROXICODONE) tablet 5 mg 5 mg, Oral, EVERY 4 HOURS PRN, Starting on Tue12/24/22 at 1307, Until Tue12/27/22 at 1505, Pain (See admin instructions), Routine, Post-op - Floor Given 12/27/2022 12:39 PM MIGRANT LEADER 5 mg Given 12/26/2022 8:35 PM MIGRANT LEADER 5 mg Given 12/26/2022 7:57 AM MIGRANT LEADER 5 mg potassium CHLORIDE in dextrose 5% - NaCl 0.45% 1,000 mL 20 mEq/L infusion IV, at 75 mL/hr, CONTINUOUS, Starting on Tue12/24/22 at 1315, Until Tue12/27/22 at 1505, Routine, Post-op - Floor New Bag 12/25/2022 3:01 AM MIGRANT LEADER 75 mL/hr New Bag 12/24/2022 1:15 PM MIGRANT LEADER 75 mL/hr scopolamine (TRANSDERM-SCOP) 1 mg/72 hr transdermal patch 1 Patch 1 Patch, Transdermal, PRE-PROCEDURE ONCE PRN, 1 dose, Starting on Tue12/24/22 at 0551, Until Tue12/27/22 at 0710, apply to mastoid area, Routine, Pre-op Applied 12/24/2022 7:10 AM MIGRANT LEADER 1 Patch Tara pitts,Right documented in this encounter Active and Recently Administered Medications Times are shown in MIGRANT LEADER. Scheduled Medication Order 12/25/2022 12/26/2022 12/27/2022 acetaminophen (TYLENOL) tablet 650 mg 650 mg, Oral, EVERY 6 HOURS, First dose on Tue12/24/22 at 1315, Until Discontinued, Routine, Post-op - Floor 0510 (Given - Provider: Steffanie Vela LPN)1345 (Given - Provider: Katie Rosario LPN)1821 (Given - Provider: Katie Rosario LPN) 0226 (Given - Provider: Stacy Odonnell RN)0935 (Given - Provider: Pascual Gonzalez RN)153 (Given - Provider: Pascual Gonzalez RN)2036 (Given - Provider: Florencia Samuels RN) 0535 (Given - Provider: Florencia Samuels RN)09 (Given - Provider: Lizzy Guillen RN) allopurinoL (ZYLOPRIM) tablet 100 mg 100 mg, Oral, DAILY, First dose on Tue12/24/22 at 1315, Until Discontinued, Routine, Previous Med: allopurinoL (ZYLOPRIM) 100 mg tablet - Orig Sig - Take 100 mg by mouth daily. 0900 (Refused - Provider: Katie Rosario LPN) 0935 (Given - Provider: Pascual Gonzalez RN) 09 (Given - Provider: Lizzy Guillen RN) alvimopan (ENTEREG) capsule 12 mg 12 mg, Oral, TWO TIMES DAILY, 14 doses, First dose on Tue12/25/22 at 0900, Last dose on Tue12/31/22 at 2100, Routine, Post-op - Floor, The ordering provider acknowledges review of the [facility] education on the benefits and risks of alvimopan? (see reference links above): Yes 0944 (Given - Provider: Katie Rosario LPN)2220 (Given - Provider: Steffanie Vela LPN) 0936 (Given - Provider: Pascual Gonzalez RN)2034 (Given - Provider: Florencia Samuels RN) 0929 (Not Given - Provider: Lizzy Guillen RN - Reason: Patient condition) famotidine (PEPCID) tablet 20 mg 20 mg, Oral, TWO TIMES DAILY, First dose on Tue12/24/22 at 1315, Until Discontinued, Routine, Post-op - Floor 0944 (Given - Provider: Katie Rosario LPN)222 (Given - Provider: Steffanie Vela LPN) 0936 (Given - Provider: Pascual Gonzalez RN)2034 (Given - Provider: Florencia Samuels RN) 0929 (Given - Provider: Lizzy Guillen, SANDRA) folic acid (FOLVITE) tablet 1 mg 1 mg, Oral, DAILY, First dose on Tue12/24/22 at 1315, Until Discontinued, Routine, Previous Med: folic acid (FOLVITE) 1 mg tablet - Orig Sig - Take 1 mg by mouth daily. 0944 (Given - Provider: Katie Rosario LPN) 0936 (Given - Provider: Pascual Gonzalez RN) 0929 (Given - Provider: Lizzy Guillen, SANDRA) gabapentin (NEURONTIN) capsule 100 mg 100 mg, Oral, EVERY 8 HOURS, First dose on Tue12/24/22 at 1315, Until Discontinued, Routine, Post-op - Floor 0510 (Given - Provider: Steffanie Vela LPN)1345 (Given - Provider: Katie Rosario LPN)2221 (Given - Provider: Steffanie Vela LPN) 0551 (Given - Provider: Steffanie Vela LPN)1237 (Given - Provider: Pascual Gonzalez RN)203 (Given - Provider: Florencia Samuels RN) 0535 (Given - Provider: Florencia Samuels RN)1300 (Due) heparin injection 5,000 Units 5,000 Units, subCUT, EVERY 8 HOURS, First dose on Tue12/25/22 at 0500, Until Discontinued, Routine, Post-op - Floor 0500 (Given - Provider: Steffanie Vela LPN)1346 (Given - Provider: Katie Rosario LPN)222 (Given - Provider: Steffanie Vela LPN) 0552 (Given - Provider: Steffanie Vela LPN)1238 (Given - Provider: Pascual Gonzalez RN)203 (Given - Provider: Florencia Samuels RN) 0535 (Given - Provider: Florencia Samuels RN)1300 (Due) magnesium oxide (MAG-OX) tablet 400 mg 400 mg, Oral, DAILY, First dose on Tue12/24/22 at 1315, Until Discontinued, Routine, Post-op - Floor 0944 (Given - Provider: Katie Rosario LPN) 0940 (Given - Provider: Pascual Gonzalez RN) 0934 (Given - Provider: Lizzy Guillen RN) naloxone (NARCAN) 0.4 mg/mL injection 0.1 mg 0.1 mg, IV, SEE ADMIN INSTRUCTIONS, Starting on Tue12/24/22 at 0605, Until Tue12/27/22 at 1505, Routine, PACU Continuous Medication Order 12/25/2022 12/26/2022 12/27/2022 potassium CHLORIDE in dextrose 5% - NaCl 0.45% 1,000 mL 20 mEq/L infusion IV, at 75 mL/hr, CONTINUOUS, Starting on Tue12/24/22 at 1315, Until Tue12/27/22 at 1505, Routine, Post-op - Floor 0301 (New Bag - Provider: Steffanie Vela LPN) PRN Medication Order 12/25/2022 12/26/2022 12/27/2022 ALPRAZolam (XANAX) tablet 0.5 mg 0.5 mg, Oral, NIGHTLY PRN, Starting on Tue12/24/22 at 1307, Until Tue12/27/22 at 1505, Anxiety, Routine, Previous Med: ALPRAZolam (XANAX) 0.5 mg tablet - Orig Sig - TAKE 1 TABLET BY MOUTH DAILY NEEDED FOR ANXIETY guaiFENesin (ROBITUSSIN) 100 mg/5 mL oral solution 200 mg 200 mg, Oral, EVERY 4 HOURS PRN, Starting on Tue12/26/22 at 1520, Until Tue12/27/22 at 1505, Cough, Routine 2040 (Given - Provider: Florencia Samuels RN) HYDROmorphone (DILAUDID) 2 mg/mL injection 0.3 mg 0.3 mg, IV, EVERY 4 HOURS PRN, Starting on Tue12/24/22 at 1307, Until Tue12/27/22 at 1505, Pain (See admin instructions), Routine, Post-op - Floor HYDROmorphone (DILAUDID) 2 mg/mL injection 0.3 mg 0.3 mg, IV, EVERY 4 HOURS PRN, Starting on Tue12/24/22 at 1307, Until Tue12/27/22 at 1505, Pain (See admin instructions), Routine, Post-op - Floor HYDROmorphone (DILAUDID) 2 mg/mL injection 0.6 mg 0.6 mg, IV, EVERY 30 MINUTES PRN, Starting on Tue12/24/22 at 1307, Until Tue12/27/22 at 1505, Pain (See admin instructions), Routine, Post-op - Floor ketorolac (TORADOL) injection 10 mg 10 mg, IV, EVERY 6 HOURS PRN, Starting on 12/25/22 at 0000, Until Tue12/27/22 at 1505, Other (See Comment), For pain secondary to inflammation, Routine, Post-op - Floor 1138 (Given - Provider: Rachel Tompkins, RN)2014 (Given - Provider: Margaret Armendariz RN) 0226 (Given - Provider: Stacy Odonnell, SANDRA)0934 (Given - Provider: Pascual Gonzalez, SANDRA)1531 (Given - Provider: Pascual Gonzalez RN) 0000 (Given - Provider: Florencia Samuels RN)0930 (Given - Provider: Lizzy Guillen RN) menthol (HALLS COUGH DROP) lozenge 5.8 mg 5.8 mg (1 Lozenge), Mouth/Throat, EVERY 2 HOURS PRN, Starting on 12/25/22 at 2116, Until Tue12/27/22 at 1505, Sore Throat, Routine 2231 (Given - Provider: Steffanie Vela LPN) 0100 (Given - Provider: Steffanie Vela LPN)0552 (Given - Provider: Steffanie Vela LPN) metoclopramide (REGLAN) 5 mg/mL injection 10 mg 10 mg, IV, EVERY 6 HOURS PRN, Starting on Tue12/24/22 at 1307, Until Tue12/27/22 at 1505, Nausea/Emesis, Routine, Post-op - Floor ondansetron (ZOFRAN) 4 mg/2 mL injection 4 mg 4 mg, IV, EVERY 6 HOURS PRN, Starting on Tue12/24/22 at 1307, Until Tue12/27/22 at 1505, Nausea/Emesis, Routine, Post-op - Floor oxyCODONE (ROXICODONE) tablet 10 mg 10 mg, Oral, EVERY 4 HOURS PRN, Starting on Tue12/24/22 at 1307, Until Tue12/27/22 at 1505, Pain (See admin instructions), Routine, Post-op - Floor 0509 (Given - Provider: Steffanie Vela LPN)0943 (Given - Provider: Katie Rosario LPN)1344 (Given - Provider: Katie Rosario LPN)1820 (Given - Provider: Katie Rosario LPN) oxyCODONE (ROXICODONE) tablet 5 mg 5 mg, Oral, EVERY 4 HOURS PRN, Starting on Tue12/24/22 at 1307, Until Tue12/27/22 at 1505, Pain (See admin instructions), Routine, Post-op - Floor 2337 (Given - Provider: Steffanie Vela LPN) 0757 (Given - Provider: Pascual Gonzalez RN)2035 (Given - Provider: Florencia Samuels RN) 0532 (Return to Cabinet - Provider: Florencia Samuels RN)1239 (Given - Provider: Lizzy Guillen RN) prochlorperazine maleate (COMPAZINE) tablet 10 mg 10 mg, Oral, EVERY 6 HOURS PRN, Starting on Tue12/24/22 at 1307, Until Tue12/27/22 at 1505, Nausea/Emesis, Routine, Post-op - Floor documented in this encounter
--- OUTSIDE RECORDS SUMMARY | 2024-11-11 19:23 | XMS_ITS | Encounter Summary ---
Author Organization [facility] Address [address] [place] [address] Care Team Providers Care Informatics Analyst Name Role Phone Unavailable Primary Care Provider Unavailabl e Reason for Visit * Reason Onset Date Comments Surgery 10/20/2022 Encounter Details Date Type Department Care Team (Late Contact Info) Description 10/20/2022 Telephone [facility] Surgical Spec [place] [address] [facility] [address] [place] [address] Giovanni Baig MD [address] [facility] [address] [place] [address] Surgery Social History Tobacco Use Types Packs/Day Years [...] Coronavirus/COVID-19? No / Unsure 10/14/2022 9:24 AM PETROLOGIST documented as of this encounter Plan of Treatment Upcoming Encounters Date Type Department Care Team (Late Contact Info) Description 01/14/2025 12:40 PM CDT Office Visit [facility] [id number] [place] [address] [address] [place] [address] [place] [address] [facility] [id number] [place] [id number] documented as of this encounter Visit Diagnoses Not on filedocumented in this encounter
--- OUTSIDE RECORDS SUMMARY | 2024-11-11 19:23 | XMS_ITS | Encounter Summary ---
Author Organization [facility] Address [address] [place] [address] Care Team Providers Care Desktop Engineer Name Role Phone Unavailable Primary Care Provider Unavailabl e Encounter Details Date Type Department Care Team (Late st Contact Info) Description 10/12/2022 Abstract [facility] Surgical Spec [place] [address] [facility] [address] [place] [address] Clara Silveira RN [address] [facility] [address] [place] [address] Social History Tobacco Use Types [...] Description 01/14/2025 12:40 PM CDT Office Visit [facility] [place] [address] [facility] [address] [place] [phone] [place] [address] [facility] [address] [place] [id number] documented as of this encounter Visit Diagnoses Not on filedocumented in this encounter
--- OUTSIDE RECORDS SUMMARY | 2024-11-11 19:23 | XMS_ITS | Encounter Summary ---
Author Organization [facility] Address [address] [place] [address] Care Team Providers Care Medical Records Director Name Role Phone Unavailable Primary Care Provider Unavailabl e Reason for Visit * Auth/Cert (Routine) Specialty Diagnoses / Procedures Referred By Med bazan Referred To Contact Perioperative Diagnoses Crohn's disease of large intestine with other complication Procedures UT LAPS CLSR NTRSTM LG/SM INT W/RESCJ & ANASTOMOSIS COLOSTOMY TAKE DOWN LAPAROSCOPIC [facility] Or [address] [place] [address] Referral ID Status Reason Start Date Expiration Date Visits Re quested Visits Authorized [id number] 1 1 Encounter Details Date Type Department Care Team (Late st Contact Info) Description 12/24/2022 6:59 AM WIRELESS WATCHER Anesthesia Event [facility] [address] [place] [address] Rell De Dios MD [address] [place] [address] Anesthesia Record Procedure Summary Procedure Name Responsible Anesthesiologist Anesthesia Start Time Anesthesia Stop Time ILEOCOLIC RESECTION LAPAROSCOPIC (Abdomen) Rell De Dios MD 12/24/22 0659 12/24/22 1107 Events Date Time Event Comment 12/24/2022 0644 AN Equip Check Anesthesia eq uipment and materials checked in accordance with local policy. 0647 0659 An Start 0703 An Pause Discontinuous a nesthesia time-STOP 0726 An Resume Discontinuous a nesthesia time-START 0729 In Room This event disp lays the In Room time documented in the Surgical Log. Deleting this event will not remove it from the log but will remove it from the Grid and Graph timeline. 0733 An Start Data 0737 Pre-Induction Immediate pre- induction anesthetic assessment performed. Vital signs as noted on graphic. 0743 An Induction 0744 An Intubation 0749 Anesthesia Ready 0828 Procedure Start This event d isplays the Procedure Start time documented in the Surgical Log. Deleting this event will not remove it from the log but will remove it from the Grid and Graph timeline. 1051 Procedure Stop This event di splays the Procedure Stop time documented in the Surgical Log. Deleting this event will not remove it from the log but will remove it from the Grid and Graph timeline. 1054 An Extubation Emergence unev entful Awake, spontaneous respirations. Adequate muscle strength demonstrated Adequate tidal volume. Orapharynx suctioned. Extubated with positive pressure ventilation. 1101 an stop data 1103 Out of Room This event disp lays the Out of Room time documented in the Surgical Log. Deleting this event will not remove it from the log but will remove it from the Grid and Graph timeline. 1107 Hand-off to Receiving Clinic deandar Post-Anesthetic transfer of care report elements to appropriate post-anesthesia recovery environment completed in accordance with procedure. BP: 144/71 (12/24/221106) Temp: 36.9 ??C (12/24/221106) Resp: 19 (12/24/221106) SpO2: 99 % (12/24/221106) Pulse: Heart Rate: 63 bpm (12/24/221106) 1107 An Stop Meds Name Total lidocaine PF (XYLOCAINE MPF) 20 mg/mL sy ringe 60 mg propofol (DIPRIVAN) 10??mg/mL injection 2,033.69 mg succinylcholine(PF)200 mg/10 mL(20 mg/mL )-NaCl,iso intravenous syringe 180 mg dexAMETHasone (DECADRON) 4 mg/mL injecti on 8 mg rocuronium (ZEMURON) 10 mg/mL 5 mL injec tion 70 mg ondansetron (ZOFRAN) 4??mg/2 mL injectio n 4 mg ceFAZolin in sterile water ( ANCEF) 2 gram/20 mL IV Syringe (PREMIX) 2,000 mg 2,000 mg metroNIDAZOLE (FLAGYL) IVPB 500 mg 500 m g ketamine 100 mg/10 mL infusion syringe 5 0.36 mg bupivacaine-EPINEPHrine (SEN SORCAINE-EPINEPHRINE) 0.25 %-1:200,000 injection 75 mg 60 mL dexAMETHasone (DECADRON) injection 4 mg 4 mg midazolam (VERSED) 1 mg/mL injection 2 m g fentaNYL (SUBLIMAZE) PF 50??mcg/mL injec tion 100 mcg phenylephrine 1 mg/10 mL (100 mcg/mL) in jection 100 mcg ketamine (KETALAR) 10??mg/mL injection 3 0 mg HYDROmorphone (DILAUDID) 2 mg/mL injecti on 0.5 mg glycopyrrolate (ROBINUL) 1 mg/5 mL (0.2 mg/mL) syringe 0.8 mg neostigmine (PROSTIGMINE) 1 mg/mL inject ion 4 mg lactated ringers infusion 2,000 mL * Agents Name Air Sevoflurane % Sevoflurane O2 N2O Inspired N2O O2 * Blood No blood administrations on file. Lines, Drains, and Airways Type Details Placement Removal Colostomy 12/24/22; 1035; No; descending/sigmoid colostomy 12/24/22 1035 by Alma Barrett, SANDRA Peripheral IV Orientation: Right; Location: Hand; Removal Indication: no longer indicated; Removal Interventions: pressure dressing, direct pressure, catheter intact 12/24/22 0650 by Madeleine Clement AA-C 12/27/22 1259 by Lizzy Guillen RN Endotracheal Airway Type: ETT; Attempts: 1; Verification: Auscultated bilateral breath sounds, Equal chest movement, Continuous waveform capnography 12/24/22 0744 by Madeleine Clement AA-C 12/24/22 1054 by Madeleine Clement, GISELLE-Jose Peripheral IV Orientation: Anterio r, Left; Location: Arm; Removal Indication: site symptomatic; Removal Interventions: pressure dressing, direct pressure, catheter intact 12/24/22 0746 by Madeleine Clement AA-C 12/26/22 1000 by Pascual Gonzalez RN Incision 12/24/22; 1039; surgical incision; Bilateral; abdomen; 12/28/22; 0104 12/24/22 1039 by Alma Barrett RN 12/28/22 0104 by PROVIDER, DISCHARGE PATIENT documented in this encounter Social History Tobacco [...] Coronavirus/COVID-19? No / Unsure 12/24/2022 6:52 AM WIRELESS WATCHER documented as of this encounter OR Notes * Anesthesia Post-Op Follow-up Note - Christi Okeefe RN - 12/25/2022 12:56 PM CST 12/25/2022 12:56 PM Ranjit Peralta No apparent Anesthesia related complications Christi Okeefe RN LESS WATCHER * Anesthesia Postprocedure Evaluation - Rell De Dios MD - 12/24/2022 11:21 AM CST Phase I Postanesthesia Evaluation Including Modified Casandra Score Patient seen and evaluated: Modified Casandra Score: Score: 8 (12/24/22 1111) COMMENTS: No apparent Anesthesia related complications RESPIRATORY FUNCTION: Respiration: able to breath and cough freely (12/24/22 1111) [2=able to breathe and cough freely, 1=dyspnea, limited breathing or tachypnea, 0=apnea or mechanicventilator] O2 Saturation: needs O2 inhalation to maintain O2 saturation greater than 90% (12/24/22 1111) [2=able to maintain O2 saturation greater than 92% on room air, 1=needs O2 inhalation to maintain O2 saturation greater than 90%, 0=O2 saturation less than 90% even with O2 supplement] Resp: 17 (12/24/22 1115)SpO2: 100 % (12/24/22 1115) CARDIOVASCULAR FUNCTION: Heart Rate: 65 bpm (12/24/22 1115) BP: 131/79 (12/24/22 1115) Circulation: BP within 20% of preanesthetic level (12/24/22 1111) [2=BP within 20% of preanesthetic level, 1=BP within 20-49% of preanesthetic level, 0=BP within 50%of preanesthetic level] MENTAL STATUS, NEURO, ACTIVITY: PATIENT PARTICIPATION IN EVALUATION:yes Consciousness: arousable on calling (12/24/22 1111) [2=fully awake, 1=arousable on calling, 0=not responding] Activity: able to move 4 extremities voluntarily or on command (12/24/22 1111) [2=able to move 4 extremities voluntarily or on command, 1=able to move 2 extremities voluntarily or on command, 0=unable to move extremities voluntarily or on command] TEMPERATURE: Temp: 36.9 ??C (12/24/22 1107) PAIN: Pain Rating: Rest: 0 (12/24/22 05) Presence of Pain: denies pain/discomfort (12/24/22547) NAUSEA AND VOMITING: no nausea and no vomiting POSTOPERATIVE HYDRATION: well hydrated Intake/Output Summary (Last 24 hours) at 12/24/2022 1121 Last data filed at 12/24/2022 1051 Gross per 24 hour Intake 2000 ml Output 320 ml Net 1680 ml Rell De Dios MD 12/24/2022 11:21 AM Post Anesthesia Evaluation Vitals: Vitals Value Taken Time BP 131/79 12/24/22 1115 Temp 36.9 ??C 12/24/22 1107 Resp 19 12/24/22 1119 SpO2 100 % 12/24/22 1119 Pulse 73 12/24/22 1119 Heart Rate 73 bpm 12/24/22 1119 Vitals shown include unvalidated device data. Pain Rating: Pain Rating: Rest: 0 (12/24/22547) Presence of Pain: denies pain/discomfort (12/24/22547) Anesthesia Post Evaluation Patient location during evaluation: PACU Patient participation: patient was able to participate in the post op evaluation Level of consciousness: 0 = alert, responsive, answers simple questions appropriately, able to perform simple tasks Pain management: adequate Multimodal analgesia pain management approach Airway patency: patent Nausea or Vomiting: none Cardiovascular status: regular rate and rhythm Respiratory status: no respiratory symptoms Hydration status: well hydrated No notable events documented. Rell De Dios MD LESS WATCHER * Anesthesia Handoff - Madeleine Clement AA-C - 12/24/2022 11:07 AM WIRELESS WATCHER Post-Anesthetic transfer of care report elements to appropriate post-anesthesia recovery environment completed in accordance with procedure. I completed my handoff to the receiving nurse during which we: 1. Identified the patient 2. Identified the responsible provider 3. Reviewed the pertinent medical history 4. Discussed the surgical course 5. Reviewed intra-op anesthesia management and issues during anesthesia 6. Set expectations for post-procedure period 7. Orders as necessary and appropriate for continuation of care are present in Epic. 8. Allowed opportunity for questions and acknowledgement of understanding. Vital Signs: BP: (!) 144/71 (12/24/2022 11:07 AM) Pulse: 90 (12/24/2022 5:48 AM) Heart Rate: 63 bpm (12/24/2022 11:07 AM) Temp: 36.9 ??C (12/24/2022 11:07 AM) Resp: 19 (12/24/2022 11:07 AM) SpO2: 99 % (12/24/2022 11:07 AM) 11:10 AM IVETT López LESS WATCHER * Anesthesia Procedure Notes - Madeleine Clement AA-C - 12/24/2022 9:31 AM CSTAssociated Order(s): Peripheral Line Insertion Peripheral Line Insertion Date/Time: 12/24/2022 6:50 AM Patient location during procedure: Pre-op Local Anesthetic: Lidocaine 2% without epinephrine Preparation: Skin prepped with alcohol Skin prep agent dried: skin prep agent completely dried prior to procedure Hand hygiene: hand hygiene performed prior to procedure Location: right hand Ultrasound guided: no Catheter size: 20 gauge Successful placement: yes LESS WATCHER * Anesthesia Procedure Notes - Madeleine Clement AA-C - 12/24/2022 8:21 AM CSTAssociated Order(s): Peripheral Line Insertion Peripheral Line Insertion Date/Time: 12/24/2022 7:46 AM Patient location during procedure: ORPreparation: Skin prepped with alcohol Skin prep agent dried: skin prep agent completely dried prior to procedure Hand hygiene: hand hygiene performed prior to procedure Location: left anterior forearm Ultrasound guided: no Catheter size: 16 gauge Number of attempts: 1 Successful placement: yes Assessment: effective initial placement and positive blood return LESS WATCHER * Anesthesia Procedure Notes - Madeleine Clement AA-C - 12/24/2022 8:20 AM CSTAssociated Order(s): Airway Airway Date/Time: 12/24/2022 7:44 AM Location: OR Plan: routine intubation Patient Identity Confirmed by: Verbally with patient and armband Airway: not difficult Staffing Performed By: LONG LINE TEAMSTER/Resident: Madeleine Clement AA-C Indications and Patient Condition: Indications for Airway Management: Anesthesia Sedation Level: general anesthesia Preoxygenated: yes Patient Position: Sniffing Mask Difficulty Assessment: 1 - vent by mask Plan to extubate at end of case: Yes Final Airway Details: Final Airway Type: Endotracheal airway ETT Cuffed: Yes Technique Used for Successful ETT Placement: Direct laryngoscopy Devices/Methods Used in Placement: Intubating stylet Blade Type: curved blade Blade Size: 4 Insertion Site: Oral Measured from: Teeth ETT to Teeth (cm): 22 Tube secured with: Tape Placement Verified by: auscultation, end tidal CO2 and chest rise Cormack-Lehane Classification: Grade I - full view of glottis Number of Attempts at Approach: 1 Additional Procedure Information: atraumatic and dentition unchanged Additional Comments: Lips, teeth, gums, tongue as preop. LESS WATCHER * Anesthesia Procedure Notes - Ranjit Franco MD - 12/24/2022 8:16 AM WIRELESS WATCHER Associated Order(s): Peripheral Block TAP Block Patient location during procedure: Pre-op Start time: 12/24/2022 7:46 AM End time: 12/24/2022 7:51 AM Reason for block: at surgeon's request and post-op pain management Staffing Performed By: Anesthesiologist: Ranjit Franco MD Vp: Patti Dodd RN Preanesthetic Checklist Completed: patient identified, IV checked, site marked, risks and benefits discussed, surgical consent, monitors and equipment checked, pre-op evaluation and timeout performed Hand hygiene performed prior to procedure Patient was prepped and draped in usual sterile fashion Mask worn Patient position: Supine Prep: ChloraPrep Patient monitoring: Continuous pulse oximetry, Heart rate, EKG, Non-invasive blood pressure and ETCO2 Block Region: Truncal Block Block Type: TAP Laterality: Bilateral Injection technique: Single-shot Beacon View Identification: ultrasound guided Local injected: Bupivacaine 0.25% Dexamethasone (mg): 4 Epinephrine (mcg/mL): 5 Total Volume Injected (mL): 60 Needle Needle type: Short-bevel Needle gauge: 22 G Needle localization: Ultrasound guidance Nerve Stimulator or Paresthesia Response Motor response or paresthesia obtained mA ms Depth (cm) Sedation Given: Patient Response: Asleep Assessment Paresthesia pain: None Heart rate change: no Slow fractionated injection: yes Narrative Injections made incrementally with aspirations every (mL): 5 Events: easy and well tolerated, Image stored electronically in record and no block events Outcome: Complete Additional Notes Performed in the OR after induction of GETA LESS WATCHER * Anesthesia Preprocedure Evaluation - Rell De Dios MD - 12/23/2022 6:53 PM CST Relevant Problems No relevant active problems Anesthesia Evaluation Airway Mallampati: II TM distance: >3 FB Neck ROM: full Dental - normal exam Pulmonary - normal exam breath sounds clear to auscultation Cardiovascular - normal exam Rhythm: regular Rate: normal Neuro/Psych GI/Hepatic/Renal Endo/Other Abdominal Anesthesia History Anesthesia Plan ASA Final: 3 General Intravenous induction Anesthetic plan and risks discussed with Patient and Spouse. Plan discussed with Surgeon, Other and Auto Radio Mechanic. Post-op Pain Control Plan to use IV or IM medication for post-op pain control. TAP Block Smoking Compliance Patient did not smoke on day of surgery LESS WATCHER documented in this encounter Miscellaneous Notes * Addendum Note - Christi Okeefe RN - 12/25/2022 12:58 PM CST Addendum created 12/25/22 1258 by Christi Okeefe RN Clinical Note Signed LESS WATCHER documented in this encounter Plan of Treatment Upcoming Encounters Date Type Department Care Team (Late st Contact Info) Description 01/14/2025 12:40 PM CDT Office Visit [facility] G[facility]enterology [facility] [address] [facility] [address] [place] [address] [place] [address] [facility] [address] [place] [address] documented as of this encounter Procedures Procedure Name Priority Date/Time Associated Diagnosis Comments UT ANESTHESIA BLOCK PB PLACEHOLDER CHARGE Routine 12/24/2022 8:16 AM WIRELESS WATCHER PERIPHERAL IV ADULT Routine 12/24/2022 7 :46 AM WIRELESS WATCHER UT ANES VNPNXR 3 YEARS/> PHYS/QHP SKILL Routine 12/24/2022 7:46 AM WIRELESS WATCHER UT ANES INSERT ENDOTRACHEAL AIRWAY Routine 12/24/2022 7:44 AM WIRELESS WATCHER PERIPHERAL IV ADULT Routine 12/24/2022 6 :50 AM WIRELESS WATCHER UT ANES VNPNXR 3 YEARS/> PHYS/QHP SKILL Routine 12/24/2022 6:50 AM WIRELESS WATCHER documented in this encounter Results * UT ANESTHESIA BLOCK PB PLACEHOLDER CHARGE (12/24/2022 8:16 AM WIRELESS WATCHER) Narrative Ranjit Franco MD - 12/24/2022 8:16 AM WIRELESS WATCHER Ranjit Franco MD ? 12/24/2022 ??8:16 AM TAP Block Patient location during procedure: Pre-op Start time: 12/24/2022 7:46 AM End time: 12/24/2022 7:51 AM Reason for block: at surgeon's request and post-op pain management Staffing Performed By: Anesthesiologist: Ranjit Franco MD Vp: Patti Dodd RN Preanesthetic Checklist Completed: patient identified, IV checked, site marked, risks and benefits discussed, surgical consent, monitors and equipment checked, pre-op evaluation and timeout performed Hand hygiene performed prior to procedure Patient was prepped and draped in usual sterile fashion Mask worn Patient position: Supine Prep: ChloraPrep Patient monitoring: Continuous pulse oximetry, Heart rate, EKG, Non-invasive blood pressure and ETCO2 Block Region: Truncal Block Block Type: TAP Laterality: Bilateral Injection technique: Single-shot Beacon View Identification: ultrasound guided Local injected: Bupivacaine 0.25% Dexamethasone (mg): 4 Epinephrine (mcg/mL): 5 Total Volume Injected (mL): 60 Needle Needle type: Short-bevel Needle gauge: 22 G Needle localization: Ultrasound guidance ?? Nerve Stimulator or Paresthesia Response Motor response or paresthesia obtained mA ms Depth (cm) ? Sedation Given: Patient Response: Asleep Assessment Paresthesia pain: None Heart rate change: no Slow fractionated injection: yes Narrative Injections made incrementally with aspirations every (mL): 5 Events: easy and well tolerated, Image stored electronically in record and no block events Outcome: Complete Additional Notes Performed in the OR after induction of GETA Rell De Dios MD PROCEDURE/MINOR SURG ICAL ORDERABLES * UT ANES VNPNXR 3 YEARS/> PHYS/QHP SKILL, PERIPHERAL IV ADULT (12/24/2022 7:46 AM WIRELESS WATCHER) Narrative Madeleine Clement AA-C - 12/24/2022 7:46 AM WIRELESS WATCHER Madeleine Clement AA-C ? 12/24/2022 ??9:31 AM Peripheral Line Insertion Date/Time: 12/24/2022 7:46 AM Patient location during procedure: ORPreparation: Skin prepped with alcohol Skin prep agent dried: skin prep agent completely dried prior to procedure Hand hygiene: hand hygiene performed prior to procedure Location: left anterior forearm Ultrasound guided: no Catheter size: 16 gauge Number of attempts: 1 Successful placement: yes Assessment: effective initial placement and positive blood return Rell De Dios MD PROCEDURE/MINOR SURG ICAL ORDERABLES * UT ANES INSERT ENDOTRACHEAL AIRWAY (12/24/2022 7:44 AM WIRELESS WATCHER) Narrative Madeleine Clement AA-C - 12/24/2022 7:44 AM WIRELESS WATCHER Madeleine Clement AA-C ? 12/24/2022 ??8:21 AM Airway Date/Time: 12/24/2022 7:44 AM Location: OR Plan: routine intubation Patient Identity Confirmed by: ??Verbally with patient and armband Airway: not difficult Staffing Performed By: LONG LINE TEAMSTER/Resident: Madeleine Clement AA-C Indications and Patient Condition: ??Indications for Airway Management: ??Anesthesia ??Sedation Level: general anesthesia ??Preoxygenated: yes ?Patient Position: ??Sniffing ??Mask Difficulty Assessment: ??1 - vent by mask ??Plan to extubate at end of case: Yes ?? Final Airway Details: ??Final Airway Type: ??Endotracheal airway ??ETT ??Cuffed: Yes ?Technique Used for Successful ETT Placement: ??Direct laryngoscopy ??Devices/Methods Used in Placement: ??Intubating stylet ??Blade Type: curved blade ??Blade Size: ??4 ??Insertion Site: ??Oral ??Measured from: ??Teeth ??ETT to Teeth (cm): ??22 ??Tube secured with: ??Tape ??Placement Verified by: auscultation, end tidal CO2 and chest rise ?Cormack-Lehane Classification: ??Grade I - full view of glottis ??Number of Attempts at Approach: ??1 Additional Procedure Information: atraumatic and dentition unchanged Additional Comments: ?? Lips, teeth, gums, tongue as preop. Rell De Dios MD PROCEDURE/MINOR SURG ICAL ORDERABLES * UT ANES VNPNXR 3 YEARS/> PHYS/QHP SKILL, PERIPHERAL IV ADULT (12/24/2022 6:50 AM WIRELESS WATCHER) Narrative Madeleine Clement AA-C - 12/24/2022 6:50 AM WIRELESS WATCHER Madeleine Clement AA-C ? 12/24/2022 ??9:31 AM Peripheral Line Insertion Date/Time: 12/24/2022 6:50 AM Patient location during procedure: Pre-op Local Anesthetic: Lidocaine 2% without epinephrine Preparation: Skin prepped with alcohol Skin prep agent dried: skin prep agent completely dried prior to procedure Hand hygiene: hand hygiene performed prior to procedure Location: right hand Ultrasound guided: no Catheter size: 20 gauge Successful placement: yes Rell De Dios MD PROCEDURE/MINOR SURG ICAL ORDERABLES documented in this encounter Visit Diagnoses Not on filedocumented in this encounter Administered Medications Inactive Administered Medications - up to 3 most recent administrations Medication Order MAR Action Action Date Dose Rate Site bupivacaine-EPINEPHrine (SENSORCAINE-EPINEPHRINE) 0.25 %-1:200,000 injection 75 mg 75 mg (30 mL), Infiltration, ONE TIME ONLY, 1 dose, On Tue12/24/22 at 0830, Routine, Intra-op Given 12/24/2022 7:51 AM WIRELESS WATCHER 60 mL ceFAZolin in sterile water (ANCEF) 2 gram/20 mL IV Syringe (PREMIX) 2,000 mg 2,000 mg, IV, PRE-PROCEDURE ONCE, 1 dose, Starting on Tue12/24/22 at 0551, Until Tue12/24/22 at 0755, Routine, Pre-op, Antibiotic Indication: Surgical prophylaxis Given 12/24/2022 7:50 AM WIRELESS WATCHER 2,000 mg dexAMETHasone (DECADRON) 4 mg/mL injection IV, INTRA-PROCEDURE PRN, Starting on Tue12/24/22 at 0750, Until Tue12/24/22 at 1110, Routine, Anesthesia Intra-op Given 12/24/2022 7:49 AM WIRELESS WATCHER 8 mg dexAMETHasone (DECADRON) injection 4 mg 4 mg, See Admin Instructions, ONE TIME ONLY, 1 dose, On Tue12/24/22 at 0830, Routine, Intra-op Given 12/24/2022 7:51 AM WIRELESS WATCHER 4 mg fentaNYL PF (SUBLIMAZE) 50 mcg/mL injection IV, INTRA-PROCEDURE PRN, Starting on Tue12/24/22 at 0743, Until Tue12/24/22 at 1110, Routine, Anesthesia Intra-op Given 12/24/2022 7:43 AM WIRELESS WATCHER 100 mcg glycopyrrolate (ROBINUL) 1 mg/5 mL (0.2 mg/mL) syringe IV, INTRA-PROCEDURE PRN, Starting on Tue12/24/22 at 1029, Until Tue12/24/22 at 1110, Routine, Anesthesia Intra-op Given 12/24/2022 10:29 AM WIRELESS WATCHER 0.8 mg HYDROmorphone (DILAUDID) 2 mg/mL injection IV, INTRA-PROCEDURE PRN, Starting on Tue12/24/22 at 0840, Until Tue12/24/22 at 1110, Routine, Anesthesia Intra-op Given 12/24/2022 8:40 AM WIRELESS WATCHER 0.5 mg ketamine 10 mg/mL injection IV, INTRA-PROCEDURE PRN, Starting on Tue12/24/22 at 0743, Until Tue12/24/22 at 1110, Routine, Anesthesia Intra-op Given 12/24/2022 7:43 AM WIRELESS WATCHER 30 mg ketamine 100 mg/10 mL infusion syringe 0.2 mg/kg/hr ? 93.5 kg Adjusted weight (1.87 mL/hr), IV, INTRA-PROCEDURE CONTINUOUS, Starting on Tue12/24/22 at 0730, Until Tue12/24/22 at 1307 New Bag 12/24/2022 7:47 AM WIRELESS WATCHER 0.214 mg/kg/hr 2 mL/hr lactated ringers infusion IV, at 150 mL/hr, PRE-PROCEDURE CONTINUOUS, Starting on Tue12/24/22 at 0600, Until Tue12/24/22 at 1307, Routine New Bag 12/24/2022 9:30 AM WIRELESS WATCHER New Bag 12/24/2022 6:59 AM WIRELESS WATCHER lidocaine (PF) (XYLOCAINE MPF) 60 mg/3 mL (2 %) injection syringe IV, INTRA-PROCEDURE PRN, Starting on Tue12/24/22 at 0743, Until Tue12/24/22 at 1110, Routine, Anesthesia Intra-op Given 12/24/2022 7:43 AM WIRELESS WATCHER 60 mg metroNIDAZOLE (FLAGYL) IVPB 500 mg 500 mg, IV, PRE-PROCEDURE ONCE, 1 dose, Starting on Tue12/24/22 at 0551, Until Tue12/24/22 at 0853, Routine, Pre-op, Antibiotic Indication: Surgical prophylaxis Given 12/24/2022 7:53 AM WIRELESS WATCHER 500 mg midazolam (VERSED) injection IV, INTRA-PROCEDURE PRN, Starting on Tue12/24/22 at 0726, Until Tue12/24/22 at 1110, Routine, Anesthesia Intra-op Given 12/24/2022 7:26 AM WIRELESS WATCHER 2 mg neostigmine (PROSTIGIMINE) 5 mg/5 mL (1 mg/mL) injection IV, INTRA-PROCEDURE PRN, Starting on Tue12/24/22 at 1029, Until Tue12/24/22 at 1110, Routine, Anesthesia Intra-op Given 12/24/2022 10:29 AM WIRELESS WATCHER 4 mg ondansetron (ZOFRAN) 4 mg/2 mL injection IV, INTRA-PROCEDURE PRN, Starting on Tue12/24/22 at 1021, Until Tue12/24/22 at 1110, Routine, Anesthesia Intra-op Given 12/24/2022 10:21 AM WIRELESS WATCHER 4 mg phenylephrine 1 mg/10 mL (100 mcg/mL) injection IV, INTRA-PROCEDURE PRN, Starting on Tue12/24/22 at 0823, Until Tue12/24/22 at 1110, Routine, Anesthesia Intra-op Given 12/24/2022 8:23 AM WIRELESS WATCHER 100 mcg propofoL (DIPRIVAN) injection IV, INTRA-PROCEDURE PRN, Starting on Tue12/24/22 at 0743, Until Tue12/24/22 at 1110, Anesthesia Intra-op Rate Change 12/24/2022 10:31 AM WIRELESS WATCHER 30 mcg/kg/min 19.26 mL/hr Rate Change 12/24/2022 10:25 AM WIRELESS WATCHER 75 mcg/kg/min 48.15 mL /hr New Bag 12/24/2022 7:47 AM [employer] 100 mcg/kg/min 64.2 mL/h r rocuronium injection IV, INTRA-PROCEDURE PRN, Starting on Tue12/24/22 at 0749, Until Tue12/24/22 at 1110, Routine, Anesthesia Intra-op Given 12/24/2022 9:28 AM [employer] 20 mg Given 12/24/2022 8:27 AM [employer] 10 mg Given 12/24/2022 7:49 AM [employer] 40 mg succinylcholine-sod Cl,iso(PF) 200 mg/10 mL (20 mg/mL) syringe IV, INTRA-PROCEDURE PRN, Starting on Tue12/24/22 at 0743, Until Tue12/24/22 at 1110, Routine, Anesthesia Intra-op Given 12/24/2022 7:43 AM [employer] 180 mg documented in this encounter
--- OUTSIDE RECORDS SUMMARY | 2024-11-11 19:23 | XMS_ITS | Encounter Summary ---
Author Organization [facility] Address [address] [place] [address] Care Team Providers Care Labor Delivery Rn Name Role Phone Unavailable Primary Care Provider Unavailabl e Encounter Details Date Type Department Care Team (Latest Contact Info) Description 12/20/2022 11:00 AM DIRECTOR EHS - 12/20/2022 11:59 PM [facility] Hospital Encounter [facility] [address] [place] [address] Giovanni Baig MD [address] [facility] [address] [place] [address] Discharge Disposition: Home or Self Care Anesthesia Record Procedure Summary Procedure Name Responsible Anesthesiologist Anesthesia Start Time Anesthesia Stop Time ILEOCOLIC RESECTION LAPAROSCOPIC (Abdomen) Rell De iDos MD 12/24/22 0659 12/24/22 1107 Events Date [...] Graph timeline. 1107 Hand-off to Receiving Clinic deandra Post-Anesthetic transfer of care report elements to appropriate post-anesthesia recovery environment completed in accordance with procedure. BP: 144/71 (12/24/227) Temp: 36.9 ??C (12/24/221106) Resp: 19 (12/24/221106) SpO2: 99 % (12/24/221106) Pulse: Heart Rate: 63 bpm (12/24/221106) 1107 An Stop Meds * Agents No agents on file. * Blood No blood administrations on file. Lines, Drains, and Airways Type Details Placement Removal Colostomy 12/24/22; 1035; No; descending/sigmoid colostomy 12/24/22 1035 by Alma Barrett, RN Peripheral IV Orientation: Right; Location: Hand; Removal Indication: no longer indicated; Removal Interventions: pressure dressing, direct pressure, catheter intact 12/24/22 0650 by Madeleine Clement AA-C 12/27/22 1259 by Lizzy Guillen RN Endotracheal Airway Type: ETT; Attempts: 1; Verification: Auscultated bilateral breath sounds, Equal chest movement, Continuous waveform capnography 12/24/22 0744 by Madeleine Clement AA-C 12/24/22 1054 by Madeleine Clement AA-C Peripheral IV Orientation: Anterio r, Left; Location: [...] Coronavirus/COVID-19? No / Unsure 12/20/2022 10:36 AM DIRECTOR EHS documented as of this encounter Last Filed Vital Signs Vital Sign Reading Time Taken Comments Blood Pressure 121/80 12/20/2022 11:27 AM DIRECTOR EHS Pulse 60 12/20/2022 11:27 AM DIRECTOR EHS Temperature - - Respiratory Rate - - Oxygen Saturation 97% 12/20/2022 11:27 AM DIRECTOR EHS Inhaled Oxygen Concentration - - Weight 108.4 kg (239 lb) 12/20/2022 11:27 AM DIRECTOR EHS Height 190.5 cm (6' 3 ) 12/20/2022 11:27 AM DIRECTOR EHS Body Mass Index 29.87 12/20/2022 11:27 AM DIRECTOR EHS documented in this encounter Medications at Time of Discharge Medication Sig Dispensed Refills Start Date End Date vedolizumab (Entyvio) 300 mg Recon Soln Inject 300 mg by intravenous injection every 8 weeks. 04/12/2022 HYDROcodone-acetamino phen (NORCO) 5-325 mg tabletIndications:Funeral Director/Embalmer hn's disease of large intestine with other [...] 09/02/2022 12/27/2022 documented as of this encounter OR Notes * Anesthesia PAT Evaluation - Terri Tsang MD - 12/20/2022 11:00 AM DIRECTOR EHS Pre-Procedure Anesthesiology Consultation and Evaluation (PACE) Service 12/20/2022 12:15 PM Name: Ranjit Peralta Age: 42 y.o. Sex: male CSN: [id number] Procedure(s): COLOSTOMY TAKE DOWN LAPAROSCOPIC Allergies Allergen Reactions Mercaptopurine Analogues (Thiopurines) Muscle Pain Severe gout like joint pain that starts within days of taking medicine Current Outpatient Medications Medication Sig Dispense Refill hydrocortisone (CORTENEMA) 100 mg/60 mL Enema Insert 100 mg by rectum 1 time daily as needed. neomycin (MYCIFRADIN) 500 mg tablet Take 2 Tablets (1,000 mg) by mouth see administration instructions. 2 tabs PO at 1PM 2pm and 10pm day before surgery 6 Tablet 0 metroNIDAZOLE (FLAGYL) 500 mg tablet Take 1 Tablet (500 mg) by mouth see administration instructions. 1 tab PO at 1pm 2pm and 10pm day before surgery 3 Tablet 0 allopurinoL (ZYLOPRIM) 100 mg tablet Take 100 [...] mg/mL) wearable injector No current facility-administered medications for this encounter. Advised pt to take the following medications AM DOS: see AVS Advised pt to stop the following medications on :ASA/NSAIDs per surgeon Patient Active Problem List Diagnosis Date Noted Crohn's disease of both small and large intestine 04/06/2013 Past Medical History: Diagnosis Date Autoimmune disease Crohn's disease Gout, unspecified Past Surgical History: Procedure Laterality Date HX COLONOSCOPY HX WISDOM TEETH EXTRACTION high school REPAIR ANAL FISTULA Social History Tobacco Use Smoking status: Former Types: Cigarettes Smokeless tobacco: Never Substance Use Topics Alcohol use: Yes Alcohol/week: 5.0 standard drinks Types: 5 Cans of beer per week Family History Problem Relation Name Age of Onset Diabetes Maternal Grandfather ADHD Son Previous Anesthesia Problems/Concerns: No anesthesia problems/complications History of PONV No Review of Systems Cardiovascular: negative. Denies cp Respiratory: negative,Snoring - No, TALITA - No Gastrointestinal: positive for Crohn's . Genitourinary:negative. Musculoskeletal: positive for gout Neurological: negative Endocrine negative Hepatic negative Exercise tolerance able to go up 2 flight of stairs w/o cp Tobacco negative (previous smoker) PHYSICAL EXAM BP 121/80 (BP Location: Left arm, Patient Position (BP): Sitting) Pulse 60 Ht 6' 3 (1.905 m) Wt 108.4 kg (239 lb) SpO2 97% BMI 29.87 kg/m?? Weight: Weight: 108.4 kg (239 lb) (12/20/22 1127) Height: Ht Readings from Last 1 Encounters: 12/20/22 6' 3 (1.905 m) BMI: Body mass index is 29.87 kg/m??. General Appearance: Alert, oriented, no acute distress Airway: normal range of motion; Airway Class: II (soft palate, uvula, fauces visible); Special Considerations None Dentition: good Lungs: clear to auscultation bilaterally, normal respiratory effort Heart: regular rate and rhythm, S1, S2 normal, no murmur, click, rub or gallop Neuro: alert, oriented x 3, no defects noted in general exam. Extremities: extremities normal, atraumatic, no cyanosis or edema LABS Lab Results Component Value Date WBC 8.5 12/20/2022 HGB 13.0 (L) 12/20/2022 HCT 41.5 12/20/2022 PLT 284 12/20/2022 MCV 88.9 12/20/2022 Lab Results Component Value Date NA 139 12/20/2022 K 4.3 12/20/2022 CL 104 12/20/2022 CO2 27 12/20/2022 CA 9.2 12/20/2022 BUN 14 12/20/2022 CREAT 0.97 12/20/2022 GLUCOSE 89 12/20/2022 ANIONGAP 8 12/20/2022 No results found for: INR, PT, PROTIMEPOC No results found for: HCGURPOC, HCGQUALUR, HCGQUAL, HCGQUANT, HCGINTACT EKG: EKG not indicated today Other Studies/Considerations: None Risks/Alternatives discussed. Questions solicited and answered. Yes Postop pain management discussed yes Smoking/Tobacco Counseling: None Recommendations:None ATTESTATIONS (Not in a hospital admission) I obtained, updated or reviewed the patient's current medications including dosage, frequency, and route of administration. This information was obtained directly from the patient or life assurance representative or caregiver or another available healthcare resource and updated in [facility] EMR. Social History Tobacco Use Smoking Status Former Types: Cigarettes Smokeless Tobacco Never Patient screened for tobacco use and identified as a Non-User of tobacco. REPORT AND NECESSARY FOLLOW-UP History and physical performed in [facility]; tests (ECG, blood work) reviewed. Abnormal Results Found: no Further Testing or Evaluation Required: no Final [facility] Review: May proceed with procedure/surgery: yes Stop bang score is 2 Based on a STOP-BANG score of 0-2 the patient is deemed low risk for TALITA and there is no follow-up,education nor interventions needed. Evaluation and management of patient, which requires a medically appropriate history and/or examination:85697 - New (15-29 minutes total time) - straightforward medical decision making I spent 25 minutes today related to the care of this patient, including: Preparing to see the patient (e.g. review of tests), obtaining and/or reviewing separately obtainedhistory, performing an examination and/or evaluation, counseling and educating the patient/family/caregiver, documenting clinical information in the record, and decision-making regarding suitability for proceeding with surgical procedure KANIKA Rose I, Terri Tsang MD, attest that I have reviewed the Advanced Practitioner's note - including thehistory, documented findings, assessment, and plan. I agree with the plan as documented except where noted. Terri Tsang MD CTOR EHS * Alana-OP - Mariel Le RN - 12/20/2022 11:00 AM CST Images from the original note were not included. [facility] Routine Orders Protocol Approved by: [facility] - Medical Executive Committee Approval Date: 07/22/2022 ORDERS ARE ENTERED ???PER PROTOCOL?? Enter the protocol in the patient's electronic health record using smart phrase: .paceroutineordersprotocol Laboratory Orders: PACE/Anesthesiology Care Screening for Procedures Laboratory exams obtained within 3 months prior to surgery are acceptable if normal, or at baseline. Hematocrit/Hemoglobin (Kew0020) Cases of expected major blood loss in patients of any age as evidenced by an order for Type and Cross or Type and Screen. PT/INR (Jly796) should be drawn day of surgery for patients: Taking Warfarin (Coumadin) or who have had Warfarin (Coumadin) discontinued within prior 7 days BMP (Lab15) Patients with: Diabetes Renal disease Dialysis patients: Day of Surgery; If dialysis on day of surgery, post-dialysis Patients taking the following medications: Digoxin Diuretics Steroids BUN (Dal630)/ Serum Cr (Lab66) When use of intravenous contrast dye is planned Liver function panel (Lab20) in any patient with: Jaundice, or active liver disease HgbA1c: If result not available from within 3 months of [facility] phone or in-person contact, for patients that meet the following conditions: Planned operation is a total hip/knee joint replacement or spinal fusion, Hx of diabetes BMI >35 (for major surgeries) EKG (EKG) 12 lead EKG EKG obtained within the last 3 months for the following: Known cardiac disease (CAD, CHF, moderate or worse valvular disease) Patients undergoing cardiac, thoracic, or vascular surgery CIED Cardiac Symptoms: Angina, dysrhythmia, palpitations, SOB, PND, S3 Moderate or greater risk surgery with any of the following: Stroke/TIA/CVD, PAD/PVD, CKD (Cr>2), DM, or Drugs or toxins that alter conduction (e.g., digoxin, cocaine, MAOIs, antiarrhythmics, antipsychotics, TCAs) Medication Orders: Unless otherwise ordered by a member of the [facility] Anesthesiology Staff. STOP Seven (7) DAYS PRIOR TO SURGERY OR WHEN NOTIFIED IF < SEVEN DAYS: the use of all vitamins, herbal supplements, and other alternative substances. Seven (7) DAYS PRIOR TO SURGERY: The use of any UNPRESCRIBED Aspirin, Excedrin and NSAIDs which include Motrin, Ibuprofen, Aleve, and Naprosyn. The use of phentermine, or medications containing phentermine. 24 HOURS PRIOR TO PLANNED ARRIVAL AT [facility]: use of angiotensin-converting enzyme (JAMES) inhibitor and angiotensin receptor joey (ARB). HOLD ON THE MORNING OF SURGERY/PROCEDURE: Diuretics (EXCEPTION: patients with CHF) Opioid ANTAGONISTS Continue-Prescribed medications on usual schedule and take medication day of surgery with sips of water to swallow Aspirin and NSAIDS unless specifically instructed by surgeon to discontinue. Patients taking a gabapentinoid GRADUATE INTERN continue usual medication and doses up to and on the day of procedure All other prescription medicines on routine schedule as prescribed, unless instructed otherwise Blood Bank: For surgical procedures, prepare blood per [facility] Blood Bank Orders and Patient Identification for Blood Products Policy unless additional blood or blood products have been ordered by a provider, then follow provider order Educational Materials: (to be provided to patients if relevant to their care and present in person to the [facility] Clinic) [facility] NPO Guidelines Attachment [facility] Nutrition Before Surgery Guidelines [facility] Instructions for Patient for Insulin Pump (for diabetic patients only) [facility] Pre-Anesthesia Patient Medication Instruction Sheet Attachment (for diabetic patients only) CTOR EHS * Alana-OP - Mariel Le RN - 12/20/2022 11:00 AM CST Images from the original note were not included. PRE-PROCEDURE INSTRUCTIONS PACE PACE Name: Ranjit Peralta Age: 42 y.o. Please report to the: [facility] at [address] [address] Date of Procedure: 12/24/2022 Please follow these important instructions Limit time spent out in the community (self-quarantine) prior to surgery/procedure to avoid any potential for COVID-19 exposure. Arrive at the time your surgeon's office has instructed. You will receive a call from your surgeon's office with your arrival time. Please note, based on patient and procedure specific considerationspatients are normally told to arrive either 1.5 hours or 2 hours prior to their surgery start time.If you have not been given your arrival time 2 days before your surgery, please contact your surgeon 's office. The decision whether to stay overnight or go home will be made by the attending surgeon. If you have any questions, call the [facility] Center at [phone]; Tuesday-Tuesday 7:30am-4:00pm PLEASE NOTIFY your surgeon promptly if you begin to feel ill prior to your surgery. A cold, sore throat, fever, flu or covid symptoms may require postponing the surgery to another date for your safety. Adult Fasting Instructions Outpatient and patients who will be admitted following procedure. Please read before day of procedure. Please note, based on patient and procedure specific considerations patients are normally told to arrive either 1.5 hours or 2 hours prior to their surgery start time. If you have not yet been given your surgery start time, please contact your surgeon's office. ALL foods and non-clear liquids All solid food, all liquids you are unable to see through *See Exceptions Below STOP at midnight prior to the morning of your procedure Clear Liquids THE ONLY CLEAR LIQUIDS ALLOWED ARE: Water Gatorade or other sports/electrolyte drinks Juices: Clear Apple, white grape, cranberry (No pulp or cider) Coffee/Tea WITHOUT cream or other additive IF INSTRUCTED, CLEAR nutritional supplement drink No other clear liquids allowed including alcohol *See Exceptions Below STOP 3 hours before your scheduled procedure time: DO NOT EXCEED 1L OF ALLOWED CLEAR LIQUIDS BETWEEN MIDNIGHT AND 3 HOURS PRIOR TO YOUR PROCEDURE At midnight prior to the morning of your procedure STOP all solid foods and non- clear liquids?(all solid food, all alcohol, all liquids you are unable to see through)? May have CLEAR liquids between midnight and 3 hours prior to your procedure time.? Do not exceed 1 Liter of allowed clear liquids between midnight and 3 hours prior to your procedure? The only CLEAR liquids?allowed: Water, Gatorade or other sports/electrolyte drinks, Juices (clear apple, white grape, cranberry (NO PULP OR CIDER), Coffee/Tea WITHOUT cream or other additive. If instructed, clear nutritional supplement drink? Exceptions:? Patients with End Stage Kidney Disease, gastroparesis (slow emptying of the stomach)? - Clear liquids must stop 6 hours prior to your procedure? If you are having surgery under the Enhanced Recovery After Surgery (ERAS) protocol, please disregard these instructions and follow the ERAS instructions.? If your surgeon has instructed you to stay on a clear liquid diet prior to the day of surgery, follow your surgeon???s instructions and avoid all food and non- clear liquids? If you have any questions, call the [facility] at [phone]?- Tuesday-Tuesday 7:30 a.m. - 4:00 p.m.? WITHIN 24 HOURS PRIOR TO SURGERY Shower (bathe) and shampoo the evening before and morning of surgery. If instructed to do so, please follow the directions on the provided soap or antibacterial soap. Before you bathe, or shower carefully read all directions and warnings on the product label. Showeror bathe with an antiseptic soap solution chosen by your surgeon, such as Chlorhexidine Gluconate (CHG) with brand names like Hibiclens.? If you are allergic to CHG, Hibiclens or Aloe. DO NOT use product.?Showering will ensure removal of bacteria and minimize risk of infection. Do not use the CHG soap on your face. Avoid getting the soap in your genital area, eyes, ears, mouth, or nose. While using the soap, if you feel itchy or experience red skin, stop using the product and immediately rinse off with water. Tell your care team about this reaction. After rinsing off the soap, do not use regular soap. After your shower, do not apply any powders, lotion, creams, deodorant, or makeup to your skin. Do not shave or remove any hair at the surgical site four days prior to surgery.? Using a clean freshly laundered dry towel pat dry after the showers each time you shower.? Sleep inclean freshly laundered sleepwear and bed linens. DO NOT WEAR JEWELRY (rings, earrings, and body piercings), wigs, or hair pieces to the hospital. We recommend patients abstain from SMOKING or VAPING TOBACCO / NICOTINE / MEDICAL MARIJUANA for as long as possible prior to surgery. DO NOT SMOKE, VAPE OR USE any TOBACCO / NICOTINE/ MEDICAL MARIJUANA PRODUCTS (smoking,?oral,?edibleproducts, ointments, tinctures and concentrates)?on the day of your procedure. DAY OF SURGERY INSTRUCTIONS YOU WILL NEED A RESPONSIBLE ADULT FAMILY MEMBER OR FRIEND WITH YOU UPON DISCHARGE. YOUR SURGERY MAYBE CANCELLED IF YOU DO NOT HAVE A RESPONSIBLE ADULT TO TAKE YOU HOME. It is highly suggested you have a responsible adult with you overnight after receiving anesthesia. WEAR comfortable, loose-fitting clothes to the hospital that will fit over dressings after your surgery. WEAR GLASSES instead of contact lenses to the hospital; bring a case for glasses, dentures, and hearing aids as you will be asked to remove these items before your surgery. BRING your insurance cards and driver material handler's license or photo ID. DO NOT BRING VALUABLES or large amounts of mayes with you to the hospital. BRING any medical devices you need to the hospital, including remotes for stimulators, CPAP, BIPAP,or WOUND VAC machines. Surgical times are estimates and can vary depending on numerous factors. Expect a minimum post-op recovery of 1 hour. The medical staff will provide updates to family and/or friends as appropriate. For surgical procedures, patient may be allowed two adult visitors. Special considerations may be allowed for pediatric patients under the age of 18 years. Patient and any permitted visitor should arrive to the facility with a mask. If arriving to the facility without a mask, one will be provided. Special considerations may be allowed for pediatric patients under 2 years of age. Patient will wear a mask from the time they enter the facility and will remain in a mask until theyleave the facility During your hospital stay you will receive a personal passcode to help protect your health information. This will be a number that you may share with anyone you choose to receive your protected health information (PHI). Family and friends will need to ask for you by name and use the passcode beforeyour care team can share information, either in person or by phone. Please ask those who have your passcode to protect it. ADVANCED PLANNING FOR MEDICATION USE * Unless otherwise ordered by a member of the [facility] Anesthesiology Staff. 1. STOP a. Seven (7) DAYS PRIOR TO SURGERY OR WHEN NOTIFIED IF < SEVEN DAYS: The use of all vitamins, herbal supplements, and other alternative substances. b. Seven (7) DAYS PRIOR TO SURGERY: The use of any UNPRESCRIBED Aspirin, Excedrin and NSAIDs which include Motrin, Ibuprofen, Aleve, and Naprosyn. CURRENT MEDICATION LIST Pre-Surgery Instructions Medication Instructions hydrocortisone (CORTENEMA) 100 mg/60 mL Enema Continue taking as prescribed neomycin (MYCIFRADIN) 500 mg tablet Continue taking as prescribed metroNIDAZOLE (FLAGYL) 500 mg tablet Continue taking as prescribed allopurinoL (ZYLOPRIM) 100 mg tablet Continue taking as prescribed ALPRAZolam (XANAX) 0.5 mg tablet May take as needed (PRN) medication with sip of water Uceris 2 mg/actuation Foam Continue taking as prescribed colchicine (COLCRYS) 0.6 mg tablet Continue taking as prescribed ergocalciferol (VITAMIN D2) 50,000 unit capsule Hold for procedure 7 days prior to procedure folic acid (FOLVITE) 1 mg tablet Hold for procedure 7 days prior to procedure methotrexate (RHEUMATREX) 2.5 mg Tablet Contact prescribing provider CTOR EHS * Alana-OP - Mariel Le RN - 12/20/2022 11:00 AM CST Educational Booklet: Patient received educational [...] Patient was instructed on a clear liquid day prior to surgery diet prior to surgery. Avoid alcohol consumption the day prior to surgery. Fluids: Patient with no history of diabetes: patient instructed on Pre-Surgery carb drink consumption 3 hours prior to surgery time: N/A Patient with history of diabetes: patient was instructed on clear liquids and water up until 3 hours prior to the procedure unless indicated by physician: N/A Patient instructed to be NPO 3 hours prior to surgery start time. Pre-procedure medications: Pre-op oral antibiotics prescribed to patient: yes Neomycin AND Metronidazole (Flagyl) yes Neomycin AND Erthromycin Other meds N/A Tobacco/Nicotine Cessation Patient instructed to not some day of surgery and that the availability of nicotine and that tobacco products are not permitted in the hospital: N/A Infection Prevention Patient instructed on how and when to use the antiseptic soap the night before the procedure and the morning of the procedure: yes CTOR EHS documented in this encounter Plan of Treatment Upcoming Encounters Date Type Department Care Team (Late st Contact Info) Description 01/14/2025 12:40 PM CDT Office Visit [facility] Gastroenterology Leanne Mea [phone] [place] [address] [place] [address] [facility] [address] [place] [address] documented as of this encounter Procedures Procedure Name Priority Date/Time Associated Diagnosis Comments CBC WITH DIFFERENTIAL Routine 12/20/2022 12:01 PM DIRECTOR EHS TYPE AND SCREEN Routine 12/20/2022 12:01 PM DIRECTOR EHS COMPREHENSIVE METABOLIC PANEL Routine 12/20/2022 12:01 PM DIRECTOR EHS documented in this encounter Results * TYPE AND SCREEN (12/20/2022 12:01 PM DIRECTOR EHS) ABO GROUP A 12/20/2022 4:11 PM DIRECTOR EHS [facility] RH (D) TYPE Negative 12/20/2022 4:11 PM DIRECTOR EHS [facility] -- [facility] ANTIBODY SCREEN Negative 12/20/2022 4:11 PM DIRECTOR EHS [facility] Blood Venipuncture / Unknown 12/20/2022 12:01 PM DIRECTOR EHS 12/20/2022 12:44 PM DIRECTOR EHS Giovanni Baig MD BLOOD BANK ORDERAB LES [facility] -- [facility]# [id number] [address] [place] [address] [place] [address] * COMPREHENSIVE METABOLIC PANEL (12/20/2022 12:01 PM DIRECTOR EHS) SODIUM 139 136 - 145 mmol/L 12/20/2022 1:34 PM DIRECTOR EHS [facility] - [facility] POTASSIUM 4.3 3.5 - 5.0 mmol/L 12/20/2022 1:34 PM DIRECTOR EHS [facility] - [facility] CHLORIDE 104 98 - 107 mmol/L 12/20/2022 1:34 PM DIRECTOR EHS [facility] CO2 27 22 - 29 mmol/L 12/20/2022 1:34 PM DIRECTOR EHS [facility] CALCIUM 9.2 8.6 - 10.2 mg/dL 12/20/2022 1:34 PM [facility] - . [facility] BUN 14 6 - 20 mg/dL 12/20/2022 1:34 PM [facility] - . [facility] CREATININE 0.97 0.67 - 1.17 mg/dL 12/20/2022 1:34 PM [facility] - [address] [facility] GLU[facility]SE 89 74 - 99 mg/dL 12/20/2022 1:34 PM [facility] - . [facility] TOTAL PROTEIN 7.1 6.7 - 8.6 g/dL 12/20/2022 1:34 PM [facility] - . [facility] ALBUMIN 4.2 3.5 - 5.2 g/dL 12/20/2022 1:34 PM [facility] - [facility] BILIRUBIN TOTAL 0.7 0.3 - 1.2 mg/dL 12/20/2022 1:34 PM [facility] - . [facility] ALKALINE PHOSPHATASE 73 40 - 129 U/L 12/20/2022 1:34 PM [facility] - . [facility] AST 20 <41 U/L 12/20/2022 1:34 PM [facility] - . [facility] ALT 20 <42 U/L 12/20/2022 1:34 PM [facility] GFR >60 >=60 mL/min/1.7 3 sq meter 12/20/2022 1:34 PM [facility] Comment:eGFR calculated with 2020 CKD-EPI equation. Vegetarian diet, extremely high or low muscle mass, and may affect results. Cystatin C with Glomerular Filtration Rate is a suitable alternative for these patients. ANION GAP 8 8 - 16 mmol/L 12/20/2022 1:34 PM [facility] Blood Venipuncture / Unknown 12/20/2022 12:01 PM DIRECTOR EHS 12/20/2022 12:44 PM DIRECTOR EHS [facility] LAB[facility]ATORY SERVICES [facility] - 12/20/2022 1:34 PM DIRECTOR EHS Samples containing indocyanine green cause interferences on Total and/or Direct Bilirubin and must not be measured. Giovanni Baig MD CHEMISTRY ORDERABL ES [facility] - [facility] CLIA# [id number] [address] [place] [place] [address] * (ABNORMAL) CBC WITH DIFFERENTIAL (12/20/2022 12:01 PM DIRECTOR EHS) WBC 8.5 4.0 - 9.8 K/uL 12/20/2022 1:19 PM DIRECTOR EHS [facility]AT[facility] - [facility] RBC 4.67 4.50 - 5.40 M/uL 12/20/2022 1:19 PM DIRECTOR EHS [facility] - [facility] HEMOGLOBIN 13.0(L) 13.6 - 16.5 g/dL 12/20/2022 1:19 PM DIRECTOR EHS [facility] - [facility] HEMATOCRIT 41.5 40.0 - 48.0 % 12/20/2022 1:19 PM DIRECTOR EHS [facility] - [facility] MCV 88.9 82.0 - 99.0 fL 12/20/2022 1:19 PM DIRECTOR EHS [facility] - [facility] MCH 27.8 27.2 - 32.6 pg 12/20/2022 1:19 PM DIRECTOR EHS [facility] - [facility] MCHC 31.3(L) 31.5 - 35.5 g/dL 12/20/2022 1:19 PM DIRECTOR EHS [facility] RDW 13.6 11.5 - 14.5 % 12/20/2022 1:19 PM DIRECTOR EHS [facility] RDW-STDEV 43.8 37.1 - 48.7 fL 12/20/2022 1:19 PM DIRECTOR EHS [facility] PLATELETS 284 140 - 350 K/uL 12/20/2022 1:19 PM DIRECTOR EHS [facility] MPV 9.5 9.3 - 12.4 fL 12/20/2022 1:19 PM DIRECTOR EHS [facility] NEUTROPHILS 73 % 12/20/2022 1:19 PM DIRECTOR EHS [facility] LYMPHOCYTES 15 % 12/20/2022 1:19 PM DIRECTOR EHS [facility] MONOCYTES 9 % 12/20/2022 1:19 PM DIRECTOR EHS [facility] EOSINOPHILS 2 % 12/20/2022 1:19 PM DIRECTOR EHS [facility] BASOPHILS 1 % 12/20/2022 1:19 PM DIRECTOR EHS [facility] - [facility] IMMATURE GRANULOCYTES 0 % 12/20/2022 1:19 PM DIRECTOR EHS [facility] - [facility] NEUTROPHIL ABSOLUTE 6.25 1.90 - 7.00 K/uL 12/20/2022 1:19 PM DIRECTOR EHS [facility] LYMPHOCYTE ABSOLUTE 1.29 0.70 - 4.50 K/uL 12/20/2022 1:19 PM DIRECTOR EHS [facility] MONOCYTE ABSOLUTE 0.79 0.10 - 1.30 K/uL 12/20/2022 1:19 PM DIRECTOR EHS [facility] - [facility] EOSINOPHIL ABSOLUTE 0.14 0.00 - 0.70 K/uL 12/20/2022 1:19 PM DIRECTOR EHS [facility] - [facility] BASOPHILS ABSOLUTE 0.04 0.00 - 0.20 K/uL 12/20/2022 1:19 PM DIRECTOR EHS [facility] - [facility] IMMATURE GRANULOCYTES ABSOLUTE 0.03 0.00 - 0.03 K/uL 12/20/2022 1:19 PM DIRECTOR EHS [facility] - [facility] Blood Venipuncture / Unknown 12/20/2022 12:01 PM DIRECTOR EHS 12/20/2022 12:44 PM DIRECTOR EHS Giovanni Baig MD HEMATOLOGY ORDERAB LES [facility] CLIA# [id number] [address] [place] [id number] documented in this encounter Visit Diagnoses Not on filedocumented in this encounter
--- OUTSIDE RECORDS SUMMARY | 2024-11-11 19:23 | XMS_ITS | Encounter Summary ---
Author Organization [facility] Address [address] [place] [address] Care Team Providers Care Sql Programmer Analyst Name Role Phone Unavailable Primary Care Provider Unavailabl e Encounter Details Date Type Department Care Team (Latest Contact Info) Description 11/30/2022 Prep for Surgery [facility] Surgical Spec [place] [address] [facility] [address] [place] [address] Clara Silveira RN [address] [facility] [address] [place] [address] Crohn's disease of both small and large intestine with other complication (Primary Dx) Social History Tobacco Use Types [...] 12:40 PM CDT Office Visit [facility] [place] [address] [facility] [address] [place] [address] [place] [address] [facility] [address] [place] [address] documented as of this encounter Visit Diagnoses Diagnosis Crohn's disease of both small and large intestine with other complication- Primary documented in this encounter
--- OUTSIDE RECORDS SUMMARY | 2024-11-11 19:23 | XMS_ITS | Encounter Summary ---
Author Organization [facility] Address [address] [place] [address] Care Team Providers Care Rolloff Driver Name Role Phone Unavailable Primary Care Provider Unavailabl e Reason for Visit * Reason Onset Date Comments Drainage from Incision 01/06/2023 Encounter Details Date Type Department Care Team (Late st Contact Info) Description 01/06/2023 Telephone [facility] Surgical Spec [place] [address] [facility] [address] [place] [address] Giovanni Baig MD [address] [facility] [address] [place] [address] Drainage from Incision Social History Tobacco Use Types Packs/Day Years [...] Coronavirus/COVID-19? 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 CAL BILLER/CODER documented in this encounter Plan of Treatment Upcoming Encounters Date Type Department Care Team (Late st Contact Info) Description 01/14/2025 12:40 PM CDT Office Visit [facility] Gastroenterology [facility] [id number] [place] [address] [address] [place] [address] [place] [address] [facility] [address] [place] [phone] documented as of this encounter Visit Diagnoses Not on filedocumented in this encounter
--- OUTSIDE RECORDS SUMMARY | 2024-11-11 19:23 | XMS_ITS | Encounter Summary ---
Author Organization [facility] Address [address] Key: Epic Prelude ADT [place] [address] Care Team Providers Care Receiving Room Clerk Name Role Phone Unavailable Primary Care Provider Unavailabl e Encounter Details Date Type Department Care Team (Latest Contact Info) Description 12/20/2022 Travel Social History Tobacco Use Types Packs/Day [...] Coronavirus/COVID-19? 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 [address] [place] [id number] [place] [address] [facility] [address] [place] [address] documented as of this encounter Visit Diagnoses Not on filedocumented in this encounter
--- OUTSIDE RECORDS SUMMARY | 2024-11-11 19:23 | XMS_ITS | Encounter Summary ---
Author Organization [facility] Address [address] [place] [address] Care Team Providers Care Lode Miner Blasting Name Role Phone Unavailable Primary Care Provider Unavailabl e Reason for Visit * Reason Onset Date Comments Medication Refill 12/20/2022 Surgery 12/20/2022 Encounter Details Date Type Department Care Team (Late st Contact Info) Description 12/20/2022 Refill [facility] Surgical Spec [place] [address] [facility] [address] [place] [address] Giovanni Baig MD [address] [facility] [address] [place] [address] Social History Tobacco Use Types Packs/Day Years [...] Coronavirus/COVID-19? 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
--- OUTSIDE RECORDS SUMMARY | 2024-11-11 19:23 | XMS_ITS | Encounter Summary ---
Author Organization [facility] Address [address] [place] [address] Care Team Providers Care Pyrotechnist Name Role Phone Unavailable Primary Care Provider Unavailabl e Reason for Visit * Auth/Cert (Routine) Specialty Diagnoses / Procedures Referred By Med bazan Referred To Contact Perioperative Diagnoses Crohn's disease of large intestine with other complication Procedures PA LAPS CLSR NTRSTM LG/SM INT W/RESCJ & ANASTOMOSIS COLOSTOMY TAKE DOWN LAPAROSCOPIC [facility] [address] [place] [address] Referral ID Status Reason Start Date Expiration Date Visits Re quested Visits Authorized [id number] 1 1 Encounter Details Date Type Department Care Team (Late st Contact Info) Description 12/24/2022 7:15 AM MANAGER OF PATIENT - 12/24/2022 11:56 AM MANAGER OF PATIENT Surgery [facility] Operating Room [address] [place] [address] Giovanni Baig MD [address] [facility] [id number] [place] [address] ILEOCOLIC RESECTION LAPAROSCOPIC Surgery Details Date/Time Status Location OR Service Patient Class Case Class Case Type Trauma Case? 12/24/2022 7:15 AM Posted [facility] OR MAIN OR 04 General Surgery Surgery Admit Elective No Panel 1 Procedure LRB Anes Op Region Wound Class Comments ILEOCOLIC RESECTION LAPAROSCOPIC N/A General Abdomen Clean Contaminated-II DIVERTING COLOSTOMY LAPAROSCOPIC N/A General Abdomen Clean Contaminated-II Surgeon Surgeon Role Service Panel Giovanni Baig MD Primary General Surgery 1 documented in this encounter Social History [...] Coronavirus/COVID-19? No / Unsure 12/24/2022 6:52 AM MANAGER OF PATIENT documented as of this encounter Last Filed Vital Signs Vital Sign Reading Time Taken Comments Blood Pressure 135/77 12/24/2022 11:45 AM MANAGER OF PATIENT Pulse 90 12/24/2022 5:48 AM MANAGER OF PATIENT Temperature 36.9 ??C (98.4 ??F) 12/24/2022 11:[address] Respiratory Rate 19 12/24/2022 11:45 AM MANAGER OF PATIENT Oxygen Saturation 91% 12/24/2022 11:50 AM MANAGER OF PATIENT Inhaled Oxygen Concentration - - Weight 107 kg (235 lb 12.8 oz) 12/24/2022 5:48 A M MANAGER OF PATIENT Height 190.5 cm (6' 3 ) 12/24/2022 5:48 AM MANAGER OF PATIENT Body Mass Index 29.47 12/24/2022 5:48 AM MANAGER OF PATIENT documented in this encounter Discharge Summaries * Kristen Espinoza PA - 12/27/2022 9:45 AM CST Surgical Discharge Summary Patient Name Dante Peralta Age 42 y.o. Gender male Date of 1980 CSN [id number] Attending Physician Giovanni Baig MD Discharging Physician KAREEM Jauregui PCP No primary care provider on file. Admit Date 12/24/2022 Discharge Date 12/27/2022 Length of Stay LOS: 3 days Follow-up & Outstanding Issues/Tests: Follow-up with Dr. Baig in 2 weeks. Hospital Course: Dante Peralta is a 42 y.o. male who was admitted to [facility] on 12/24/2022 and found to have [...] Your Medications These medications were sent to [place] [id number] Hours: Retail 8 AM - 12 AM [...] file. if applicable to the patient. ? GER OF PATIENT documented in this encounter Discharge Instructions * Discharge Instructions* Kristen Espinoza PA - 12/25/2022 1:21 PM MANAGER OF PATIENT Wound/Ostomy Services Ostomy Discharge Instructions: Patient is to be seen by an instrumentation specialist the day of discharge. Surgical Procedure: Date of surgery Surgeon: Assessment of Ostomy Type: Stoma appearance: Stoma size(cm): Stoma height : Location of the stoma opening: (center, distal) Mucocutaneous junction: Peristomal skin care: Abdominal contours: Abdominal skin tone: ( soft, distended, rigid) Appliance Type: Accessories used: Stoma function: Make an appointment for 2 weeks post discharge at our [facility]. to see an Ostomy Nurse for post op teaching. Call [phone] for scheduling information. It may take 2-4 weeks to get in so please call as soon as possible to schedule an appointment. It is important to follow up to make sure that potential problems are avoided and that you have the easiest possible recovery and adjustment to your ostomy. Bring all your ostomy supplies with you to your outpatient visit. Clinic Address: [address] [place] [address]. Hours of Operation: Tuesday-Tuesday: 8 a.m. - 4 p.m. You will be sent home with supplies to last approximately 2 weeks Contact your insurance company about ordering and reimbursement of ostomy supplies as soon as possible.If you are receiving Home Health care, they can assist you with ordering/obtaining supplies. You have been enrolled in the [employer] Secure Start program. Expect to receive a customized product kit within 72 hours of discharge. A patient coordinator will call you within 72 hours for consultation and can be contacted at . For additional support, the [employer] [place] meets the first Tuesday of the month at various hospital locations. For more information call [phone]. The Ostomy Department staff recognizes this is a new and challenging experience for you. Should youhave any questions or concerns please contact our department at [phone]; Tuesday through Tuesday8-4:30p. Diet: Low residue diet [...] Please send Dr. Baig an email on [employer] in 48-72 hours to give an update on your progress at home. 2) Dr. Baig in the office in 2 weeks for a post-operative visit. Please call [phone] toarrange appointment. If pending labs/pathology results, they will be reviewed in postoperative visit or you may call (or email to Dr. Baig on [employer]) in 5 business days to inquire about the your pathology. GER OF PATIENT documented in this encounter Medications at Time [...] For Discharge Home health Agency Name [facility] Copy of this transfer form will be sent with patient along with: CATHY Fox Hours: Sat, Sun, Flo & Lillian (8-6:30PM) GER OF PATIENT * Daisy Bardales MD - 12/26/2022 3:08 [...] 49 (!) 46 (!) 53 61 Resp: 18 18 18 17 Temp: 98 ??F (36.7 ??C) 98 ??F [...] post: Laparoscopic ileocolic resection with primary stapled xcpx-uz-kczw functional end-to-end anastomosis between the mid ileum [...] TID and SCDs Daisy Bardales MD 12/26/2022 GER OF PATIENT * Giovanni Baig MD - 12/25/2022 6:52 [...] bowel function. Dr. Jacobson to cover tomorrow. GER OF PATIENT * Patti Dodd RN - 12/25/2022 10:11 AM CST 12/25/2022 10:11 AM Regional Anesthesia Service Name: Dante Peralta Age: 42 y.o. Sex: male CSN: [id number] Chief complaint: Post operative pain POD # [...] Service may be contacted by zone phone [phone] during daytime resource hours,or by pager [phone] at any time. If there is no answer within 20 minutes, call [phone] for the Anesthesiologist secondary market manager. GER OF PATIENT documented in this encounter H&P Notes * [...] need for stoma, 2/Medical risks such as SC, DVT/PE, stroke, pneumonia, renal/resp failure, 3/Anesthetic risks, 4/Positioning risks (nerve injury), and 5/the real but remote possibility of . The patient voiced understanding of all of these risks and wishes to proceed. GER OF PATIENT documented in this encounter Consult Notes * Smita David RN - 12/27/2022 1:04 PM CST Images from the original note were not included. Wound Ostomy Services Ostomy Teaching - Book Review Patient Name: Dante Peralta Date/time of Admission: 12/24/2022 5:25 AM Today's Date: 12/27/2022 Current Hospital Day: Hospital Day: 4 Surgical Procedure: Laparoscopic ileocolic resection with primary stapled vorg-bm-pbhi functional end-to-end anastomosis between the mid ileum [...] pouching system/accessories applied as noted below. Brand: [employer] Pouching system description: Two piece flat pouching system with lock and roll microseal closure. SO requested 2 piece in order to empty gas more effectively. Skin barrier Devlin number/product number: [id number] / [id number] Pouch Devlin number/product number: [id number] / [id number] Measurement: 1 34 Accessory products used: [employer] [...] cleansed in similar manner. Patient tolerated well, onsd-os-ykig education provided during care. I&O assessment: Intake/Output 12/24/22 0700 - 12/25/22 0659 12/25/22 0700 - 12/26/22 0659 12/26/22 0700 - 12/27/22 [id number] [id number] Total 3093-6355 3775-3566 Total 4863-6143 3608-1566 Total Intake P.O. -- 1650 1650 -- 1100 1100 460 -- 460 P.O. (mL) -- 1650 1650 -- 1100 1100 460 -- 460 I.V. 2700 -- 2700 -- -- -- -- -- -- Volume (mL) (lactated ringers infusion) 700 -- 700 -- -- -- -- -- -- Volume (mL) (lactated ringers infusion) 2000 -- 2000 -- -- -- -- -- -- Total [...] -92 12/27/22 0700 - 12/28/22 0659 (Discharged) [id number] 3946-7950 Total Intake Total Intake -- -- -- [...] nurse. Spouse reports already reach out to [facility] regarding ostomy supplies. Full skin assessment by Wound/Ostomy Department date:12/25/2022 Recommendations Discharging 12/27/22, seen just prior to d/c Review instructions added to AVS upon discharge. We will continue to follow for teaching/learning needs. Follow all ostomy interventions as found in Care Plan. Please notify us for any ostomy/skin issues, or any questions/concerns. Thank You. Smita David RN, BSN, CWCN Wound Ostomy Department Zone:[id number] GER OF PATIENT * Mendy Canales RN - 12/26/2022 2:41 PM CST Wound Ostomy Services Ostomy Teaching - Book Review Patient Name: Dante Peralta Date/time of Admission: 12/24/2022 5:25 AM Today's Date: 12/26/2022 Current Hospital Day: Hospital Day: 3 Surgical Procedure: Laparoscopic ileocolic resection with primary stapled hlxa-ah-pncz functional end-to-end anastomosis between the mid ileum [...] rounded Abdominal skin tone: slightly distended Appliance Type:Clayton 1 piece flat with lock and roll closure Devlin #:[id number] Location of supplies: [facility] Accessories used:none (powder, paste, and skin prep in purple bag as per previous note) Stoma function:stool/flatus Output:+ flatus Stool color/consistency: I&O assessment: Per [facility] as of 0700: Total intake 1,100 mL Total output 2 mL (total ostomy output 0 mL) Medical Devices\Dressings: GI: ostomy, Surgical dressings:lap sites PULP PLANT SUPERVISOR approximated with glue Skin\Wound Assessment: 12/25/2022 Education [...] nurse. Sp[facility] Full skin assessment by Wound/Ostomy Department date:12/25/2022 Recommendations Anticipate pouch change 12/27/2022 Place speci-hat in bathroom so patient can empty the pouch himself and still keep I+Os. Staff may assist to empty, but should NOT do it for him. Patient is to be seen by an instrumentation specialist the day of discharge. Review instructions added to AVS upon discharge. We will continue to follow for teaching/learning needs. Follow all ostomy interventions as found in Care Plan. Please notify us for any ostomy/skin issues, or any questions/concerns. Thank You. Mendy Larios RN, BSN Wound Ostomy Department Zone:[id number] GER OF PATIENT * Lisa Donald RD - 12/26/2022 11:25 AM CSTAssociated Order(s): IP CONSULT TO NUTRITION SERVICES Images from the original note were not included. CLINICAL DIETITIAN PROGRESS NOTE [facility] Nutrition Consult for Colostomy Education PMHx: Patient [...] () Body mass index is 29.47 kg/m??. [place] body weight: 84.5 kg (186 lb 4.6 [...] 1125 (Last 7 readings): Weight Weight Method 12/24/22 0548 107 kg (235 lb 12.8 oz) [...] 05:08 AM No results found for: HGBA1C, [id number] Pert Meds: Pepcid, Folvite, Mg-Ox Food Allergies: [...] minutes Lisa Donald RD, LD Contact via [email or web address] Secure Chat GER OF PATIENT * Sharmila Box RN - 12/25/2022 11:40 [...] Procedure: Laparoscopic ileocolic resection with primary stapled nfmt-wb-xvcu functional end-to-end anastomosis between the mid ileum [...] Smiley with lock n roll closure Devlin #:[id number] Location of supplies: [facility] Accessories used:none [...] to their insurance to determine a supplier [facility] Reviewed items to be received fromSecure Start: yes ducated regarding: Blood supply, probable bleeding of stoma Lack of sensory nerve endings/no feeling in stoma Removing Pouching System Inspecting barrier and skin for signs of leakage Assessing and caring for the stoma and peristomal skin Ray a new pouching system (measuring stoma, cutting, [...] Pathway related to appropriateBraden score. Please notify family specialist if skin condition deteriorates, any other skin care issues arise, or any questions/concerns. Thank You. Sharmila MALIK RN CWOCN Zone: [id number] GER OF PATIENT documented in this encounter OR Notes * Operative Report - Giovanni Baig MD - 12/24/2022 11:02 AM CST [place], [place] Patient: DANTE PERALTA CSN: [id number] : 1980 Provider: Giovanni Baig MD OPERATIVE REPORT DATE OF SERVICE: 12/24/2022 ANESTHESIA: General endotracheal tube anesthesia. 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 POSTOPERATIVE DIAGNOSES: Same PROCEDURES PERFORMED: Laparoscopic ileocolic resection with primary stapled wjrm-yv-dhvw functional end-to-end anastomosis between the mid ileum [...] upstream bowel dilation. This was resected and psyf-la-iafk functional end-to-end stapled anastomosis was performed between [...] and the mid ascending colon and created sqyr-wo-ptdm functional end-to-end anastomosis using ROSEMARY-80 stapler with [...] the sigmoid colon up through this incision taki ng care to make sure that it was oriented [...] throughout the entire procedure. Giovanni Baig MD GER OF PATIENT documented in this encounter Miscellaneous Notes * Care Plan - Lizzy Guillen RN - 12/27/2022 11:57 AM CST Dante Peralta will be discharged via ambulatory to home. Dante Peralta is accompanied by spouse and will be transported via private vehicle. PIVs removed Education completed Scripts delivered from pharmacy Pt walked out GER OF PATIENT * Care Plan - Florencia Samuels RN - 12/27/2022 6:46 AM CST Pt Aox4. Up indep - c/o pain medicated per jan Toradol x1 and tanya x1 - no c/o nausea - pt had 550ml output in ostomy this shift - VSS - at bedside this shift - pt slept well between care GER OF PATIENT * Care Plan - Pascual Gonzalez RN - 12/26/2022 6:40 PM CST Pt has had mild c/o pain today to abd, PRN's given and have been effective He has been up in room independently without problems Voided adequate UOP Ostomy +flatus, +stool Lap sites to abd c/d/I Diet-fiber control, tolerating well, denied nausea Ambulated the unit several times. VSS,afebrile GER OF PATIENT * Care Plan - Steffanie Vela LPN - 12/26/2022 5:39 AM CST Dante is A&Ox4 Complaints of pain managed per MAR. Ambulated halls with independently this evening Tolerating diet, no complaints of n/v +flatus, -stool in ostomy at bedside Call light within reach GER OF PATIENT * Care Plan - Steffanie Vela LPN - 12/25/2022 9:16 PM CST Images from the original note were not included. [facility] CHEL Adult Therapeutic Orders Protocol [facility] Approved by: [facility] - Medical Executive Committee Approval Date: 10/22/2021 ORDERS ARE ENTERED ???PER PROTOCOL?? Enter the protocol in the patient's electronic health record using smartphrase:.nursingtheraputicordersprotocol For adult inpatients with complaints of minor discomfort Nursing Orders: [id number] Ice Pack/Cold Therapy 20 minutes every 2 hours to affected area. [id number] Warm Compress/Heat to affected area 20 minutes every 8 hours to affected area. Medication Orders: dcvcacvxwo-ogpodnm-fuizyqmywauihy (CEPACOL) lozenge. 1 each by mouth every [...] or worsen contact provider for further orders GER OF PATIENT * Care Plan - Amanda Laughlin LMSW - 12/25/2022 12:14 PM CST SW received a call from Petra with [facility] advising that pt was declined by them in error and they are able to accept the pt for HHC due to his new ostomy--start date of Tuesday vs Tuesday (will need to confirm). SW re-sent HHC order. Care Management will continue to follow. Amanda Laughlin LMSW (PRN) [id number] GER OF PATIENT * Care Plan - Steffanie Vela LPN - 12/25/2022 3:22 AM CST A&OX4 C/O Pain managed per MAR; no c/o n/v -BM; - Flatus; ostomy Fall precautions maintained Call light within reach at bedside GER OF PATIENT * Care Plan - Rachelle Ac RN - 12/24/2022 4:44 PM CST Care Management Initial Assessment Initial Discharge Planning Assessment completed. Discussed Care Management's role and Discharge planning. 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 Patient and live in [place], [place] CM will send referrals in [place]. Patient Discharge Planning Goal: home with C Patient will potentially discharge to a SNF/NH? [...] / Prescription coverage: yes Preferred Pharmacy verified: [id number] - [place], [place] - [address] AT [facility] [address] Employment Status: employed Has VA Benefits: no PCP verified as: Shyla SERNA in with Dr. Wesley Cr[place], [place] Patient has not had a stay at an acute care hospital in the last 30 days. Recent Falls?: Last Known Fall: No falls Plan for transportation at discharge: private vehicle. Care Management contact information provided. Care Management will continue to follow and assist asneeded. Rachelle Ac RN, BSN Publishing Systems Analyst [id number] GER OF PATIENT * Care Plan - Katie Rosario LPN [...] specialty surface use. 5 Is a medical billing instructor present? yes If yes, which one?: abdominal [...] care consult/ostomy care consult was initiated. Belongings: [facility] CHEL Skin Care Injury Prevention and Treatment Protocol [facility] Approved by: [facility] - Medical Executive Committee Approval Date: [...] treatments found in the Wound Care Algorithm. GER OF PATIENT * Care Plan - Isabela Wesley RN - 12/24/2022 11:12 AM CST Potential for pain related to surgical/procedural intervention Interventions: Assess level of pain/comfort utilizing verbal/nonverbal pain scales; assess culturalor holiness indicators attached to pain; administer pain medications [...] no bleeding or hematoma from surgical site GER OF PATIENT * Care Plan - Mya Denson RN [...] done, questions answered, pt understands surgical process. GER OF PATIENT documented in this encounter Plan of Treatment Upcoming Encounters Date Type Department Care Team (Late st Contact Info) Description 01/14/2025 12:40 PM CDT Office Visit [facility] [id number] [place] [address] [address] [address] [place] [address] [facility] [address] [place] [address] documented as of this encounter Procedures Procedure Name Priority Date/Time Associated Diagnosis Comments CBC WITH DIFFERENTIAL Routine 12/27/2022 7:26 AM MANAGER OF PATIENT BASIC METABOLIC PANEL Routine 12/27/2022 7:26 AM MANAGER OF PATIENT CBC WITH DIFFERENTIAL Routine 12/26/2022 5:08 AM MANAGER OF PATIENT BASIC METABOLIC PANEL Routine 12/26/2022 5:08 AM MANAGER OF PATIENT CBC WITH DIFFERENTIAL Routine 12/25/2022 5:17 AM MANAGER OF PATIENT BASIC METABOLIC PANEL Routine 12/25/2022 5:17 AM MANAGER OF PATIENT PATHOLOGY Pathology 12/24/2022 9:43 AM MANAGER OF PATIENT Crohn's disease of large intestine with other complication IR INJECTION Routine 12/24/2022 9:38 AM MANAGER OF PATIENT VERIFICATION BLOOD GROUP Stat 12/24/2022 7:20 AM MANAGER OF PATIENT Encounter for blood typing PA LAPAROSCOPY SURG COLOSTOMY/SKN LVL CECOSTOMY 12/24/2022 7:15 AM MANAGER OF PATIENT Crohn's disease of large intestine with other complication PA LAPS COLECTOMY PRTL W/RMVL TERMINAL ILEUM 12/24/2022 7:15 AM MANAGER OF PATIENT Crohn's disease of large intestine with other complication PREPARE RED BLOOD CELLS Routine 12/24/2022 12:07 AM MANAGER OF PATIENT PREPARE RED BLOOD CELLS Routine 12/24/2022 12:07 AM MANAGER OF PATIENT documented in this encounter Results * (ABNORMAL) BASIC METABOLIC PANEL (12/27/2022 7:26 AM MANAGER OF PATIENT) SODIUM 140 136 - 145 mmol/L 12/27/2022 8:[address] [facility] POTASSIUM 4.0 3.5 - 5.0 mmol/L 12/27/2022 8:[address] OF [address] [facility] CHLORIDE 106 98 - 107 mmol/L 12/27/2022 8:15 [address] OF PATIENT [address] CO2 26 22 - 29 mmol/L 12/27/2022 8:15 [address] OF PATIENT [address] . [facility] CALCIUM 8.8 8.6 - 10.2 mg/dL 12/27/2022 8:15 [address] OF PATIENT [address] BUN 10 6 - 20 mg/dL 12/27/2022 8:15 AM [facility] CREATININE 0.95 0.67 - 1.17 mg/dL 12/27/2022 8:15 AM [facility] GLUCOSE 100(H) 74 - 99 mg/dL 12/27/2022 8:15 AM [facility] GFR >60 >=60 mL/min/1.7 3 sq meter 12/27/2022 8:15 AM [facility] Comment:eGFR calculated with 2020 CKD-EPI equation. Vegetarian diet, extremely high or low muscle mass, and may affect results. Cystatin C with Glomerular Filtration Rate is a suitable alternative for these patients. ANION GAP 8 8 - 16 mmol/L 12/27/2022 8:15 AM [facility] Blood Venipuncture / Unknown 12/27/2022 7:26 AM MANAGER OF PATIENT 12/27/2022 7:34 AM MANAGER OF PATIENT Giovanni Baig MD CHEMISTRY ORDERABL ES [facility] CLIA# [id number] 5 [facility] [place] [address] * (ABNORMAL) CBC WITH DIFFERENTIAL (12/27/2022 7:26 AM MANAGER OF PATIENT) WBC 6.9 4.0 - 9.8 K/uL 12/27/2022 7:53 AM [facility] RBC 4.04(L) 4.50 - 5.40 M/uL 12/27/2022 7:53 AM [facility] HEMOGLOBIN 11.2(L) 13.6 - 16.5 g/dL 12/27/2022 7:53 AM [facility] HEMATOCRIT 35.5(L) 40.0 - 48.0 % 12/27/2022 7:53 AM [facility] MCV 87.9 82.0 - 99.0 fL 12/27/2022 7:53 AM [facility] MCH 27.7 27.2 - 32.6 pg 12/27/2022 7:[address] OF [address]IENT [address] MCHC 31.5 31.5 - 35.5 g/dL 12/27/2022 7:[address] OF [address]IENT [address] RDW 13.8 11.5 - 14.5 % 12/27/2022 7:[address] MANAGER OF PATIENT [address] RDW-STDEV 44.3 37.1 - 48.7 fL 12/27/2022 7:53 AM MANAGER OF PATIENT [address] PLATELETS 228 140 - 350 K/uL 12/27/2022 7:53 AM MANAGER OF PATIENT [address] MPV 9.2(L) 9.3 - 12.4 fL 12/27/2022 7:53 AM MANAGER OF PATIENT [address] NEUTROPHILS 72 % 12/27/2022 7:53 AM MANAGER OF PATIENT [facility] LYMPHOCYTES 14 % 12/27/2022 7:53 AM MANAGER OF PATIENT [address] MONOCYTES 10 % 12/27/2022 7:53 AM MANAGER OF PATIENT [facility] EOSINOPHILS 4 % 12/27/2022 7:53 AM MANAGER OF PATIENT [address] BASOPHILS 0 % 12/27/2022 7:53 AM MANAGER OF PATIENT [facility] IMMATURE GRANULOCYTES 0 % 12/27/2022 7:53 AM MANAGER OF PATIENT [facility] NEUTROPHIL ABSOLUTE 4.90 1.90 - 7.00 K/uL 12/27/2022 7:53 AM MANAGER OF PATIENT [address] LYMPHOCYTE ABSOLUTE 0.95 0.70 - 4.50 K/uL 12/27/2022 7:53 AM MANAGER OF PATIENT [address] MONOCYTE ABSOLUTE 0.71 0.10 - 1.30 K/uL 12/27/2022 7:53 AM MANAGER OF PATIENT [address] EOSINOPHIL ABSOLUTE 0.24 0.00 - 0.70 K/uL 12/27/2022 7:53 AM MANAGER OF PATIENT [address] BASOPHILS ABSOLUTE 0.03 0.00 - 0.20 K/uL 12/27/2022 7:53 AM MANAGER OF PATIENT Dr. [facility] IMMATURE GRANULOCYTES ABSOLUTE 0.02 0.00 - 0.03 K/uL 12/27/2022 7:53 AM [facility] [employer] LABORATORY SERVICES [facility]. [facility] Blood Venipuncture / Unknown 12/27/2022 7:26 AM MANAGER OF PATIENT 12/27/2022 7:34 AM MANAGER OF PATIENT Giovanni Baig MD HEMATOLOGY ORDERAB LES [facility] [employer] [facility] CLIA# [id number] 5 [facility] [place] [address] * (ABNORMAL) BASIC METABOLIC PANEL (12/26/2022 5:08 AM MANAGER OF PATIENT) SODIUM 140 136 - 145 mmol/L 12/26/2022 5:53 AM [facility] [employer] LABORATORY SERVICES [facility] POTASSIUM 4.2 3.5 - 5.0 mmol/L 12/26/2022 5:53 AM [facility] [employer] [facility] CHLORIDE 108(H) 98 - 107 mmol/L 12/26/2022 5:53 AM [facility] [employer] [facility] CO2 24 22 - 29 mmol/L 12/26/2022 5:53 AM [facility] [employer] LABORATORY SERVICES [facility] CALCIUM 8.5(L) 8.6 - 10.2 mg/dL 12/26/2022 5:53 AM [facility] [employer] LABORATORY SERVICES [facility] BUN 14 6 - 20 mg/dL 12/26/2022 5:53 AM [facility] [employer] LABORATORY SERVICES [facility]. [facility] CREATININE 1.12 0.67 - 1.17 mg/dL 12/26/2022 5:53 AM [facility] [employer] [facility]. [facility] GLUCOSE 95 74 - 99 mg/dL 12/26/2022 5:53 AM [facility] [employer] LABORATORY SERVICES [facility]. [facility] GFR >60 >=60 mL/min/1.7 3 sq meter 12/26/2022 5:53 AM [facility] [employer] LABORATORY SERVICES [facility] Comment:eGFR calculated with 2020 CKD-EPI equation. Vegetarian diet, extremely high or low muscle mass, and may affect results. Cystatin C with Glomerular Filtration Rate is a suitable alternative for these patients. ANION GAP 8 8 - 16 mmol/L 12/26/2022 5:53 AM [facility] [employer] [facility] - [facility] Blood Venipuncture / Unknown 12/26/2022 5:08 AM MANAGER OF PATIENT 12/26/2022 5:14 AM MANAGER OF PATIENT Giovanni Baig MD CHEMISTRY ORDERABL ES [employer] [facility] - [facility] CLIA# [id number] [address] [facility] [place] [address] * (ABNORMAL) CBC WITH DIFFERENTIAL (12/26/2022 5:08 AM MANAGER OF PATIENT) WBC 7.3 4.0 - 9.8 K/uL 12/26/2022 5:26 AM MANAGER OF PATIENT [employer] [facility] RBC 3.96(L) 4.50 - 5.40 M/uL 12/26/2022 5:26 AM [employer] [facility] - [facility] HEMOGLOBIN 10.8(L) 13.6 - 16.5 g/dL 12/26/2022 5:26 AM [employer] LABORATORY SERVICES - [facility] HEMATOCRIT 34.7(L) 40.0 - 48.0 % 12/26/2022 5:26 AM [employer] [facility] - . [facility] MCV 87.6 82.0 - 99.0 fL 12/26/2022 5:26 AM [employer] [facility] - [facility] MCH 27.3 27.2 - 32.6 pg 12/26/2022 5:26 AM [employer] - . [facility] MCHC 31.1(L) 31.5 - 35.5 g/dL 12/26/2022 5:26 AM [employer] [facility] - [facility] RDW 13.8 11.5 - 14.5 % 12/26/2022 5:26 AM [employer] - . [facility] RDW-STDEV 43.6 37.1 - 48.7 fL 12/26/2022 5:26 AM [employer] [facility] - [facility] PLATELETS 221 140 - 350 K/uL 12/26/2022 5:26 AM [facility] - [facility] MPV 8.9(L) 9.3 - 12.4 fL 12/26/2022 5:26 AM [facility] [employer] LABORATORY SERVICES - [facility] NEUTROPHILS 65 % 12/26/2022 5:26 AM [facility] [employer] LAB[facility]ATORY [facility] - [facility] LYMPHOCYTES 22 % 12/26/2022 5:26 AM [facility] Dr. Scribbles LABORATORY SERVICES - [facility] MONOCYTES 10 % 12/26/2022 5:26 AM [facility] Dr. Scribbles LAB[facility]ATORY SERVICES - [facility] EOSINOPHILS 2 % 12/26/2022 5:26 AM [facility] Dr. Scribbles LAB[facility]ATORY [facility] BASOPHILS 0 % 12/26/2022 5:26 AM [facility] Dr. Scribbles LABORATORY SERVICES - [facility] IMMATURE GRANULOCYTES 0 % 12/26/2022 5:26 AM [facility] [employer] LABORATORY SERVICES - [facility] NEUTROPHIL ABSOLUTE 4.76 1.90 - 7.00 K/uL 12/26/2022 5:26 AM [facility] [employer] LABORATORY SERVICES - [facility] LYMPHOCYTE ABSOLUTE 1.61 0.70 - 4.50 K/uL 12/26/2022 5:26 AM [facility] [employer] LAB[facility]ATORY SERVICES - [facility] MONOCYTE ABSOLUTE 0.71 0.10 - 1.30 K/uL 12/26/2022 5:26 AM [facility] [employer] LABORATORY SERVICES - [facility] EOSINOPHIL ABSOLUTE 0.17 0.00 - 0.70 K/uL 12/26/2022 5:26 AM [facility] [employer] LAB[facility]ATORY SERVICES - [facility] BASOPHILS ABSOLUTE 0.03 0.00 - 0.20 K/uL 12/26/2022 5:26 AM [facility] [employer] LABORATORY SERVICES - [facility] IMMATURE GRANULOCYTES ABSOLUTE 0.02 0.00 - 0.03 K/uL 12/26/2022 5:26 AM [facility] Dr. Scribbles LABORATORY SERVICES - [facility] Blood Venipuncture / Unknown 12/26/2022 5:08 AM MANAGER OF PATIENT 12/26/2022 5:14 AM MANAGER OF PATIENT Giovanni Baig MD HEMATOLOGY ORDERAB LES [facility] LABORATORY SERVICES - [facility] CLIA# [id number] 5 [facility] [place] [address] * (ABNORMAL) BASIC METABOLIC PANEL (12/25/2022 5:17 AM MANAGER OF PATIENT) SODIUM 139 136 - 145 mmol/L 12/25/2022 6:15 AM [facility] POTASSIUM 4.3 3.5 - 5.0 mmol/L 12/25/2022 6:15 AM [facility] CHLORIDE 107 98 - 107 mmol/L 12/25/2022 6:15 AM [facility] CO2 24 22 - 29 mmol/L 12/25/2022 6:15 AM [facility] CALCIUM 9.0 8.6 - 10.2 mg/dL 12/25/2022 6:15 AM [facility]. [facility] BUN 11 6 - 20 mg/dL 12/25/2022 6:15 AM [facility] CREATININE 1.13 0.67 - 1.17 mg/dL 12/25/2022 6:15 AM [facility] GLUCOSE 117(H) 74 - 99 mg/dL 12/25/2022 6:15 AM [facility] GFR >60 >=60 mL/min/1.7 3 sq meter 12/25/2022 6:15 AM [facility] Comment:eGFR calculated with 2020 CKD-EPI equation. Vegetarian diet, extremely high or low muscle mass, and may affect results. Cystatin C with Glomerular Filtration Rate is a suitable alternative for these patients. ANION GAP 8 8 - 16 mmol/L 12/25/2022 6:15 AM [facility] Blood Venipuncture / Unknown 12/25/2022 5:17 AM MANAGER OF PATIENT 12/25/2022 5:34 AM MANAGER OF PATIENT Giovanni Baig MD CHEMISTRY ORDERABL ES [id number] 615 [facility] [place] [address] * (ABNORMAL) CBC WITH DIFFERENTIAL (12/25/2022 5:17 AM MANAGER OF PATIENT) WBC 11.3(H) 4.0 - 9.8 K/uL 12/25/2022 5:51 AM [address]NAGER OF PATIENT Dr. ScribblesY LABORATORY SERVICES - . [facility] RBC 4.21(L) 4.50 - 5.40 M/uL 12/25/2022 5:51 AM MANAGER OF PATIENT Dr. ScribblesY LABORATORY SERVICES - [facility] HEMOGLOBIN 11.6(L) 13.6 - 16.5 g/dL 12/25/2022 5:51 AM MANAGER OF PATIENT Dr. Scrib[facility]Y LABORATORY SERVICES - [facility] HEMATOCRIT 36.7(L) 40.0 - 48.0 % 12/25/2022 5:51 AM MANAGER OF PATIENT Dr. ScribblesY LABORATORY SERVICES - . [facility] MCV 87.2 82.0 - 99.0 fL 12/25/2022 5:51 AM MANAGER OF PATIENT Dr. ScribblesY LABORATORY SERVICES - [facility] MCH 27.6 27.2 - 32.6 pg 12/25/2022 5:51 AM MANAGER OF PATIENT Dr. Scrib[facility]Y LABORATORY SERVICES - [facility] MCHC 31.6 31.5 - 35.5 g/dL 12/25/2022 5:51 AM MANAGER OF PATIENT Dr. ScribblesY LABORATORY SERVICES - . [facility] RDW 13.5 11.5 - 14.5 % 12/25/2022 5:51 AM MANAGER OF PATIENT Dr. ScribblesY LABORATORY SERVICES - [facility] RDW-STDEV 42.1 37.1 - 48.7 fL 12/25/2022 5:51 AM MANAGER OF PATIENT Dr. ScribblesY LABORATORY SERVICES - [facility] PLATELETS 283 140 - 350 K/uL 12/25/2022 5:51 AM MANAGER OF PATIENT Dr. ScribblesY LABORATORY SERVICES - [facility] MPV 9.2(L) 9.3 - 12.4 fL 12/25/2022 5:51 AM MANAGER OF PATIENT Dr. Scrib[facility]Y [facility] NEUTROPHILS 80 % 12/25/2022 5:51 AM MANAGER OF PATIENT Dr. ScribblesY [facility] - [facility] LYMPHOCYTES 11 % 12/25/2022 5:[address] OF PATIENT Dr[address] ScribblesY [facility] - [facility] MONOCYTES 9 % 12/25/2022 5:51 AM MANAGER OF PATIENT [facility] - [facility] EOSINOPHILS 0 % 12/25/2022 5:51 AM MANAGER OF PATIENT [facility] - [facility] BASOPHILS 0 % 12/25/2022 5:51 AM MANAGER OF PATIENT Dr. ScribblesY LABORATORY SERVICES - . [facility] IMMATURE GRANULOCYTES 0 % 12/25/2022 5:51 AM MANAGER OF PATIENT Dr. ScribblesY LABORATORY SERVICES - [facility] NEUTROPHIL ABSOLUTE 8.99(H) 1.90 - 7.00 K/uL 12/25/2022 5:51 AM MANAGER OF PATIENT [facility] LABORATORY [facility] LYMPHOCYTE ABSOLUTE 1.21 0.70 - 4.50 K/uL 12/25/2022 5:51 AM MANAGER OF PATIENT [facility] LABORATORY [facility] MONOCYTE ABSOLUTE 1.02 0.10 - 1.30 K/uL 12/25/2022 5:51 AM MANAGER OF PATIENT [facility] LAB[facility]ATORY SERVICES - [facility] EOSINOPHIL ABSOLUTE 0.00 0.00 - 0.70 K/uL 12/25/2022 5:51 AM MANAGER OF PATIENT [facility]ORY SERVICES - [facility] BASOPHILS ABSOLUTE 0.01 0.00 - 0.20 K/uL 12/25/2022 5:51 AM MANAGER OF PATIENT [facility] LABORATORY SERVICES - [facility] IMMATURE GRANULOCYTES ABSOLUTE 0.04(H) 0.00 - 0.03 K/uL 12/25/2022 5:51 AM [facility] LABORATORY [facility] Blood Venipuncture / Unknown 12/25/2022 5:17 AM MANAGER OF PATIENT 12/25/2022 5:35 AM MANAGER OF PATIENT Giovanni Baig MD HEMATOLOGY ORDERAB LES [facility]# [id number] [facility] [place] [place] [address] * PATHOLOGY (12/24/2022 9:43 AM MANAGER OF PATIENT) CASE REPORT Surgical Pathology Report ? Case: [id number] ? Authorizing Provider: ??Giovanni Baig MD ?Collected: ? 12/24/2022 09:43 AM ? Ordering Location: ? [facility] ?Received: ?12/24/2022 11:48 AM ? Operating Room ? Pathologist: ? Nurys Pak MD ? Specimens: ?? A) - Terminal Ileum, Terminal ileum and cecum ? B) - Colon, Colostomy trim ? 3 7:49 AM [facility] [employer] [facility] FINAL DIAGNOSIS Colon, cecum, appendix and small [...] colostomy: - Submucosal edema 3 7:49 AM [facility] [employer] [facility] S DESCRIPTION Two containers are received labeled [...] adipose tissue is sectioned for lymph nodes. Arresting Gear Operator sections are submitted in cassettes as follows: [...] the specimen is submitted in cassette B1. ARMAND 3 7:49 AM [facility] MICROSCOPIC DESCRIPTION The slides are labeled [id number] and Dante Peralta. Sections from ileum margin [...] colon with submucosal edema 3 7:49 AM [facility] OPERATIVE PROCEDURE 1: ILEOCOLECTOMY LAPAROSCOPIC 2: COLOSTOMY LAPAROSCOPIC 3 7:49 AM [facility] CLINICAL INFORMATION Crohn's disease of large intestine with other complication [K50.118] K50.118-Crohn's disease of large intestine with other complication 3 7:49 AM [facility] COMMENT Special stain, immunohistochemical, and/or in situ hybridization results are interpreted with controls that demonstrate appropriate staining reactions. Note on use of immunohistochemistry reagents and in situ hybridization probes: These tests were developed and their performance characteristics determined by [facility] Department of Laboratory Medicine. It has not [...] part or completely in the following laboratories: [facility], CLIA #[id number] [address] [place] [address] [facility], [place] #[id number] [address] [place] [address] [facility]/[place], [place] #[id number] [address] [place] [address] This report was created with the TrueSpan voice-activated dictation system. Inherent to this system is the possibility of syntax, grammar, punctuation and other errors that could impact the interpretation of the report. If there are interpretative questions about aspects of this report, please contact the performing pathologist. 3 7:49 AM [facility] Tissue (Terminal Ileum) Collection / Unknown 12/24/2022 9:43 AM MANAGER OF PATIENT 12/24/2022 11:48 AM MANAGER OF PATIENT Tissue specimen (specimen) SPECIMEN FROM COLON / Unknown 12/24/2022 10:46 AM MANAGER OF PATIENT 12/24/2022 11:48 AM MANAGER OF PATIENT Giovanni Baig MD PATHOLOGY/CYTOLOGY ORDERABLES Performing Organization Address [facility]/ZIP Co de Phone Number [facility] LABORATORY SERVICES - [facility]# [id number] [address] [place] [address] * IR INJECTION (12/24/2022 9:38 AM MANAGER OF PATIENT) Narrative 12/24/2022 9:38 AM MANAGER OF PATIENT Order information only. ??Exam was auto-finalized. ?? Dante Franco MD IR ORDERABLES * VERIFICATION BLOOD GROUP (12/24/2022 7:20 AM MANAGER OF PATIENT) ABO GROUP A 12/24/2022 8:03 AM MANAGER OF PATIENT [facility] RH (D) TYPE Negative 12/24/2022 8:03 AM MANAGER OF PATIENT [facility] -- .[facility] Blood Venipuncture / Unknown 12/24/2022 7:20 AM MANAGER OF PATIENT 12/24/2022 7:29 AM MANAGER OF PATIENT Mariel Moses MD BLOOD BANK ORD ERABLES [facility] LABORATORY SERVICES -- [facility] CLIA# [id number] [address] [place] [address] * PREPARE RED BLOOD CELLS (12/24/2022 12:07 AM MANAGER OF PATIENT) COMPONENT TYPE [id number] [facility] COMPONENT IDENTIFICATION [id number] [facility] UNIT ABO A [facility] UN[facility] RH NEG [facility] CROSSMATCH Compatible [facility] COMPONENT STATUS Returned [employer] [facility] COMPONENT EXPIRATION DATE/TIME [id number] [employer] LABORATORY SERVICES [facility] COMPONENT CODING SYSTEM 06 Dr[address] Scribbles [facility] 12/24/2022 12:0 7 AM MANAGER OF PATIENT Giovanni Baig MD LAB TRANSFUSION OR DERABLES Performing Organization Address [facility] Co de Phone Number [facility] CLIA# [id number] [address] [place] [address] * PREPARE RED BLOOD CELLS (12/24/2022 12:07 AM MANAGER OF PATIENT) Pathologist [facility] COMPONENT TYPE [id number] [employer] [facility]ORY [facility] COMPONENT IDENTIFICATION [id number] [employer] [facility]ORY [facility] UNIT ABO A [employer] LABORATORY SERVICES -- .[facility] UNIT RH NEG [employer] LABORATORY SERVICES -- [facility] CROSSMATCH Compatible [employer] LAB[facility]ATORY SERVICES [facility] COMPONENT STATUS Returned [employer] LABORATORY SERVICES [facility] COMPONENT EXPIRATION DATE/TIME [id number] [employer] [facility]ATORY SERVICES [facility] COMPONENT CODING SYSTEM 06 [facility] 12/24/2022 12:0 7 AM MANAGER OF PATIENT Giovanni Baig MD LAB TRANSFUSION OR DERABLES Performing Organization Address City/[facility] Co de Phone Number [facility] [id number] [address] [place] [address] documented in this encounter Visit Diagnoses Diagnosis Encounter for blood typing Crohn's disease of both small and large intestine with other complication Crohn's disease of large intestine with other complication Crohn's disease of large intestine with other complication documented in this encounter Administered Medications Inactive Administered Medications - up to 3 most recent administrations Medication Order MAR Action Action Date Dose Rate Site acetaminophen (TYLENOL) tablet 650 mg 650 mg, Oral, EVERY 6 HOURS, First dose on Tue12/24/22 at 1315, Until Discontinued, Routine, Post-op - Floor Given 12/27/2022 9:29 AM MANAGER OF PATIENT 650 mg Given 12/27/2022 5:35 AM MANAGER OF PATIENT 650 mg Given 12/26/2022 8:37 PM MANAGER OF PATIENT 650 mg allopurinoL (ZYLOPRIM) tablet 100 mg 100 mg, Oral, DAILY, First dose on Tue12/24/22 at 1315, Until Discontinued, Routine, Previous Med: allopurinoL (ZYLOPRIM) 100 mg tablet - Orig Sig - Take 100 mg by mouth daily. Given 12/27/2022 9:29 AM MANAGER OF PATIENT 100 mg Given 12/26/2022 9:35 AM MANAGER OF PATIENT 100 mg alvimopan (ENTEREG) capsule 12 mg 12 mg, Oral, TWO TIMES DAILY, 14 doses, First dose on Tue12/25/22 at 0900, Last dose on Tue12/31/22 at 2100, Routine, Post-op - Floor, The ordering provider acknowledges review of the [employer] education on the benefits and risks of alvimopan? (see reference links above): Yes Given 12/26/2022 8:35 PM MANAGER OF PATIENT 12 mg Given 12/26/2022 9:36 AM MANAGER OF PATIENT 12 mg Given 12/25/2022 10:21 PM MANAGER OF PATIENT 12 mg famotidine (PEPCID) tablet 20 mg 20 mg, Oral, TWO TIMES DAILY, First dose on Tue12/24/22 at 1315, Until Discontinued, Routine, Post-op - Floor Given 12/27/2022 9:29 AM MANAGER OF PATIENT 20 mg Given 12/26/2022 8:35 PM MANAGER OF PATIENT 20 mg Given 12/26/2022 9:36 AM MANAGER OF PATIENT 20 mg folic acid (FOLVITE) tablet 1 mg 1 mg, Oral, DAILY, First dose on Tue12/24/22 at 1315, Until Discontinued, Routine, Previous Med: folic acid (FOLVITE) 1 mg tablet - Orig Sig - Take 1 mg by mouth daily. Given 12/27/2022 9:29 AM MANAGER OF PATIENT 1 mg Given 12/26/2022 9:36 AM MANAGER OF PATIENT 1 mg Given 12/25/2022 9:44 AM MANAGER OF PATIENT 1 mg gabapentin (NEURONTIN) capsule 100 mg 100 mg, Oral, EVERY 8 HOURS, First dose on Tue12/24/22 at 1315, Until Discontinued, Routine, Post-op - Floor Given 12/27/2022 5:35 AM MANAGER OF PATIENT 100 mg Given 12/26/2022 8:35 PM MANAGER OF PATIENT 100 mg Given 12/26/2022 12:37 PM MANAGER OF PATIENT 100 mg guaiFENesin (ROBITUSSIN) 100 mg/5 mL oral solution 200 mg 200 mg, Oral, EVERY 4 HOURS PRN, Starting on Tue12/26/22 at 1520, Until Tue12/27/22 at 1505, Cough, Routine Given 12/26/2022 8:41 PM MANAGER OF PATIENT 200 mg heparin injection 5,000 Units 5,000 Units, subCUT, EVERY 8 HOURS, First dose on 12/25/22 at 0500, Until Discontinued, Routine, Post-op - Floor Given 12/27/2022 5:35 AM MANAGER OF PATIENT 5,000 Units Arm, Left Upper Given 12/26/2022 8:35 PM MANAGER OF PATIENT 5,000 Units Abdomen, Left Lower Quadrant Given 12/26/2022 12:38 PM MANAGER OF PATIENT 5,000 Units Abdominal Tissue HYDROmorphone (DILAUDID) 2 mg/mL injection 0.3 mg 0.3 mg, IV, EVERY 4 HOURS PRN, Starting on Tue12/24/22 at 1307, Until Tue12/27/22 at 1505, Pain (See admin instructions), Routine, Post-op - Floor Given 12/24/2022 1:27 PM MANAGER OF PATIENT 0.3 mg ketorolac (TORADOL) injection 10 mg 10 mg, IV, EVERY 6 HOURS PRN, Starting on 12/25/22 at 0000, Until Tue12/27/22 at 1505, Other (See Comment), For pain secondary to inflammation, Routine, Post-op - Floor Given 12/27/2022 9:30 AM MANAGER OF PATIENT 10 mg Given 12/27/2022 12:00 AM MANAGER OF PATIENT 10 mg Given 12/26/2022 3:31 PM MANAGER OF PATIENT 10 mg magnesium oxide (MAG-OX) tablet 400 mg 400 mg, Oral, DAILY, First dose on Tue12/24/22 at 1315, Until Discontinued, Routine, Post-op - Floor Given 12/27/2022 9:34 AM MANAGER OF PATIENT 400 mg Given 12/26/2022 9:40 AM MANAGER OF PATIENT 400 mg Given 12/25/2022 9:44 AM MANAGER OF PATIENT 400 mg menthol (HALLS COUGH DROP) lozenge 5.8 mg 5.8 mg (1 Lozenge), Mouth/Throat, EVERY 2 HOURS PRN, Starting on 12/25/22 at 2116, Until Tue12/27/22 at 1505, Sore Throat, Routine Given 12/26/2022 5:52 AM MANAGER OF PATIENT 5.8 mg Given 12/26/2022 1:00 AM MANAGER OF PATIENT 5.8 mg Given 12/25/2022 10:31 PM MANAGER OF PATIENT 5.8 mg naloxone (NARCAN) 0.4 mg/mL injection 0.1 mg 0.1 mg, IV, SEE ADMIN INSTRUCTIONS, Starting on Tue12/24/22 at 0605, Until Tue12/27/22 at 1505, Routine, PACU oxyCODONE (ROXICODONE) tablet 10 mg 10 mg, Oral, EVERY 4 HOURS PRN, Starting on Tue12/24/22 at 1307, Until Tue12/27/22 at 1505, Pain (See admin instructions), Routine, Post-op - Floor Given 12/25/2022 6:20 PM MANAGER OF PATIENT 10 mg Given 12/25/2022 1:44 PM MANAGER OF PATIENT 10 mg Given 12/25/2022 9:43 AM MANAGER OF PATIENT 10 mg oxyCODONE (ROXICODONE) tablet 5 mg 5 mg, Oral, EVERY 4 HOURS PRN, Starting on Tue12/24/22 at 1307, Until Tue12/27/22 at 1505, Pain (See admin instructions), Routine, Post-op - Floor Given 12/27/2022 12:39 PM MANAGER OF PATIENT 5 mg Given 12/26/2022 8:35 PM MANAGER OF PATIENT 5 mg Given 12/26/2022 7:57 AM MANAGER OF PATIENT 5 mg potassium CHLORIDE in dextrose 5% - NaCl 0.45% 1,000 mL 20 mEq/L infusion IV, at 75 mL/hr, CONTINUOUS, Starting on Tue12/24/22 at 1315, Until Tue12/27/22 at 1505, Routine, Post-op - Floor New Bag 12/25/2022 3:01 AM MANAGER OF PATIENT 75 mL/hr New Bag 12/24/2022 1:15 PM MANAGER OF PATIENT 75 mL/hr sodium chloride 0.9% irrigation solution INTRA-PROCEDURE PRN, Starting on Tue12/24/22 at 1023, Until Tue12/24/22 at 1104, Routine, Intra-op Given 12/24/2022 10:23 AM MANAGER OF PATIENT 1,000 mL Oper ative Site documented in this encounter Active and Recently Administered Medications Times are shown in MANAGER OF PATIENT. Scheduled Medication Order 12/25/2022 12/26/2022 12/27/2022 acetaminophen (TYLENOL) tablet 650 mg 650 mg, Oral, EVERY 6 HOURS, First dose on Tue12/24/22 at 1315, Until Discontinued, Routine, Post-op - Floor 0510 (Given - Provider: Steffanie Vela LPN)1345 (Given - Provider: Katie Rosario LPN)1821 (Given - Provider: Katie Rosario LPN) 0226 (Given - Provider: Stacy Odonnell RN)0935 (Given - Provider: Pascual Gonzalez, SANDRA)153 (Given - Provider: Pascual Gonzalez, SANDRA)2036 (Given - Provider: Florencia Samuels RN) 0535 (Given - Provider: Florencia Samuels RN)0929 (Given - Provider: Lizzy Guillen, SANDRA) allopurinoL (ZYLOPRIM) tablet 100 mg 100 mg, Oral, DAILY, First dose on Tue12/24/22 at 1315, Until Discontinued, Routine, Previous Med: allopurinoL (ZYLOPRIM) 100 mg tablet - Orig Sig - Take 100 mg by mouth daily. 0900 (Refused - Provider: Katie Rosario LPN) 0935 (Given - Provider: Pascual Gonzalez RN) 0929 (Given - Provider: Lizzy Guillen, SANDRA) alvimopan (ENTEREG) capsule 12 mg 12 mg, Oral, TWO TIMES DAILY, 14 doses, First dose on Tue12/25/22 at 0900, Last dose on Tue12/31/22 at 2100, Routine, Post-op - Floor, The ordering provider acknowledges review of the [facility] education on the benefits and risks of alvimopan? (see reference links above): Yes 0944 (Given - Provider: Katie Rosario LPN)222 [...] RN)2034 (Given - Provider: Florencia Samuels RN) 09 (Given - Provider: Lizzy Guillen RN) folic acid (FOLVITE) tablet 1 mg 1 mg, Oral, DAILY, First dose on Tue12/24/22 at 1315, Until Discontinued, Routine, Previous Med: folic acid (FOLVITE) 1 mg tablet - Orig Sig - Take 1 mg by mouth daily. 0944 (Given - Provider: Katie Rosario LPN) 935 (Given - Provider: Pascual Gonzalez RN) 928 (Given - Provider: Lizzy Guillen RN) gabapentin (NEURONTIN) capsule 100 mg 100 mg, Oral, EVERY 8 HOURS, First dose on Tue12/24/22 at 1315, Until Discontinued, Routine, Post-op - Floor 0510 (Given - Provider: Steffanie Vela LPN)134 (Given - Provider: Katie Rosario LPN)2220 (Given - Provider: Steffanie Vela LPN) 0551 (Given - Provider: Steffanie Vela LPN)123 (Given - Provider: Pascual Gonzalez RN)2034 (Given - Provider: Florencia Samuels RN) 0535 [...] Vela LPN)1238 (Given - Provider: Pascual Gonzalez RN)2034 (Given - Provider: Florencia Samuels RN) 0535 (Given - Provider: Florencia Samuels RN)1300 (Due) magnesium oxide (MAG-OX) tablet 400 mg 400 mg, Oral, DAILY, First dose on Tue12/24/22 at 1315, Until Discontinued, Routine, Post-op - Floor 0944 (Given - Provider: Katie Rosario LPN) 0940 (Given - Provider: Pascual Gonzalez, SANDRA) 0934 (Given - Provider: Lizzy Guillen RN) [...] - Floor 1138 (Given - Provider: Rachel Tompkins RN)2014 (Given - Provider: Margaret Armendariz RN) 0226 (Given - Provider: Stacy Odonnell RN)0934 (Given - Provider: Pascual Gonzalez, SANDRA)1531 (Given - Provider: Pascual Gonzalez, SANDRA) 0000 (Given - Provider: Florencia Samuels RN)0930 [...] Pascual Gonzalez RN)2035 (Given - Provider: Florencia Samuels, SANDRA) 05[facility]: Florencia Samuels RN)1239 (Given - Provider: Lizzy Guillen RN) prochlorperazine maleate (COMPAZINE) tablet 10 mg 10 mg, Oral, EVERY 6 HOURS PRN, Starting on Tue12/24/22 at 1307, Until Tue12/27/22 at 1505, Nausea/Emesis, Routine, Post-op - Floor documented in this encounter
--- OUTSIDE RECORDS SUMMARY | 2024-11-11 19:23 | XMS_ITS | Encounter Summary ---
Author Organization [facility] Address [address] Key: Epic Prelude [place]T [place] [id number] Care Team Providers Care Owner/Photographer Name Role Phone Unavailable Primary Care Provider Unavailabl e Encounter Details Date Type Department Care Team (Latest Contact Info) Description 12/24/2022 Travel Social History Tobacco Use Types Packs/Day [...] Coronavirus/COVID-19? No / Unsure 12/24/2022 6:52 AM [facility]IL[facility] MAKER documented as of this encounter Plan of Treatment Upcoming Encounters Date Type Department Care Team (Late st Contact Info) Description 01/14/2025 12:40 PM CDT Office Visit [facility] Leanne Mae [address] [place] [id number] [place] [id number] [address] [place] [id number] documented as of this encounter Visit Diagnoses Not on filedocumented in this encounter
== END 2024-11-04 17:08 | disposition home or self-care (01) ==
PROVIDERS: Emergency Provider Nurse Practitioner Family; PCP Internal Medicine
DX: H66.92 Otitis media, unspecified, left ear (principal); K50.90 Crohn's disease, unspecified, without complications
CPT/HCPCS: 99213; G0463